=== PATIENT | male | born 1960 | race Caucasian/White ===

== ENCOUNTER → 2018-01-15 09:35 | Outpatient (CLI) | payer OTHER, SELFPAY ==
[2018-01-15 11:26] VITALS: BP 153/82; PULSE 80; RESP 18; TEMP 36.1; O2SAT 96; BMI 40.4
--- NOTE | 2018-01-15 11:35 | SDCEKG_ITS ---
Test Reason : Blood Pressure : / mmHG Vent. Rate : 076 BPM Atrial Rate : 076 BPM P-R Int : 118 ms QRS Dur : 080 ms QT Int : 372 ms P-R-T Axes : 055 003 054 degrees QTc Int : 418 ms Normal sinus rhythm with sinus arrhythmia Normal ECG Confirmed by KYRA GUERRA, CASEY ([id number]), technical editor CASA CENTENO ([id number]) on 01/17/2018 1:51:58 PM Referred By: Casimiro Cueva Confirmed By:CASEY RAE MD
[2018-01-15 12:05] LABS: Absolute Lymphocyte Count 1.85 X10^3/ul (0.83-4.51); Basophil# 0.04 X10^3/uL; Basophil% 0.5 % (0-1); Eosinophil# 0.08 X10^3/uL; Eosinophils% 1.1 % (0-5); Hematocrit 44.3 % (40-54); Hemoglobin 15.3 g/dl (13.0-16.5); Lymphocyte # 1.85 X10^3/ul (4.0); Lymphocyte % 24.9 % (19-41); Mean Corp Hgb Conc 34.5 g/gl (32-36); Mean Corpuscular Hgb 27.6 pg (27.0-32.0); Mean Platelet Vol. 9.6 fl (6.2-12.0); Monocyte# 0.48 X10^3/uL; Monocyte% 6.5 % (0-10); Neutrophil # 4.97 X10^3/uL (2.7-7.7); Neutrophil % 66.7 % (47-70); Platelet Count 194 K/mm3 (150-450); RBC Distribution Width CV 13.5 % (11.6-14.6); RBC Distribution Width SD 38.8 fl (35.1-43.9); Red Blood Count 5.54 M/mm3 (4.6-6.2); White Blood Count 7.4 K/mm3 (4.4-11.0)
[2018-01-15 12:06] LABS: POSITIVE COUNT NO; POSITIVE DIFFERENTIAL NO; POSITIVE MORPHOLOGY NO
[2018-01-15 12:26] LABS: Hemoglobin A1c 8.1 % (4.2-6.3)
[2018-01-15 12:47] LABS: Anion Gap 6 (5-15); BUN 19 mg/dL (7-18); BUN/Creat Ratio 19.4 RATIO (10-20); Calcium,Total 8.8 mg/dL (8.5-10.1); Chloride 103 mmol/L (98-107); Creatinine, Serum 0.98 mg/dL (0.70-1.30); EST Glomerular Filtration Rate 84 mL/min (>60); Est Glom Filt Rate - Afr Amer 101 mL/min (>60); Estimated Creatinine Clearance 74.14 ml/min; Glucose 152 mg/dL (74-106); Potassium 4.2 mmol/L (3.5-5.1); Sodium Level 137 mmol/L (136-145)
--- NOTE | 2018-01-18 13:28 | PCM.HP.BLA ---
History and Physical DATE OF SERVICE: 01/31/2018 SCHEDULED PROCEDURE: Right knee debridement scar tissue vs revision femoral component vs revision right total knee HISTORY OF PRESENT ILLNESS: This is a 57-year-old male who has had a lengthy medical treatment with regards to his right knee. Patient initially injured his right knee at work approximately 15 years ago. Patient initially underwent a right knee arthroscopy in 2003 followed by a second knee arthroscopy in 2007. Patient underwent a right total knee replacement September 21, [address] Dwayne Partida. Thereafter patient had and it irrigation and debridement and polyethylene exchange on October 16, 2016 followed by a repeat irrigation and debridement with polyethylene exchange on October 18, 2016. Patient then went manipulation under anesthesia of the right knee on December 20, 2016. Since then patient has been through formal physical therapy and has tried oral medications with no significant relief in symptoms. He is having aching and stabbing type pains. He has pain going up and down stairs, walking any amount of distance, and working. Patient is losing range of motion in the right knee and pain is increasing. He has difficult time with activities of daily living including getting dressed and shopping. He has tripped and stumbled secondary to his right knee pain. He has tried conservative measures consisting of rest heat with minimal relief. He has tried ice and elevation with no relief in symptoms. Patient has been through formal physical therapy and home exercises and continues to lose range of motion in the knee. He has been on oral medications consisting of tramadol with no relief in symptoms. Patient has been through extensive surgery on the right knee listed above. After failing conservative measures and discussing all treatment options with Dr. Cueva, the patient would like to proceed with a right knee debridement of scar tissue versus revision femoral component versus revision right total knee. Patient has medical history pertinent for diabetes as well as previous heart stent placement in 2013. He is followed by strategic marketing specialist. Patient has obtained surgical clearance from his primary care physician Dr. Barrios. We are obtaining surgical clearance from patient's strategic marketing specialist. Patient currently denies any change in medical history or any recent chest pain, shortness of breath, fevers chills, or recent infections. REVIEW OF SYSTEMS: ROS: Const: Reports weight change, but denies anorexia, anxiety, change in appetite and fever,hard of hearing, and vision problems. CV: Denies chest pain, heart murmur, irregular heartbeat and peripheral vascular disease. Resp: Denies asthma, cough, pneumonia, sleep apnea, SOB, tuberculosis and wheezing. GI: Denies constipation, diarrhea, heartburn, nausea, bloody stools and vomiting, and difficulity swallowing. : Genital:. (F Genital Sx) Urinary: denies incontinence. Musculo: Reports leg swelling, limp, trouble walking and weakness of the legs, but denies ambulatory dysfunction and weakness and limp. Skin: Reports tattoo, but denies Raynaud's and history of shingles. Neuro: Denies ambulatory dysfunction, dizziness, numbness/tingling and tremor. Psych: Denies anxiety, depression, insomnia, mental illness and stress. Brennan/Lymph: Reports past transfusion, but denies anemia and bleeding/bruising tendency. Reviewed and updated. PAST MEDICAL HISTORY: Advance Care Plan: Other Directive, POA Effective Date: 08/14/2017 Other Directive, LIVING WILL Effective Date: 08/14/2017 PMH: Medical Problems: Arthritis, Diabetes Accidents: Fracture - RT FINGERS,WRIST Surgical Hx: Arthroscopy - (2003) [place] [facility] [place] [facility] Gallbladder - 2005 [facility] Arthroscopy - (2001) RT ELBOW RT Foot Surgery - (2004) Arthroscopy - (12/28/2007) RT KNEE DR PARTIDA [facility] Stent Placed - (10/03/2014) [facility] RT Cataract Removed Knee Replacement RT - (09/21/2016) [email or web address] I&D - (10/18/2016) [email or web address] Knee Brice - (12/20/2016) [email or web address] Cataract Removed Anesthesia Complications: None Assistive Devices: Glasses - READING, Dentures Reviewed and updated. 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 Personal Habits: Smoking: Patient is a former smoker.Cigarette Use: Former - 2PK/DAY- 25YRS.Alcohol: Occasionally.Drug Use: Former Illegal Drug User - MARIJUANA .Enjoy Exercising: Daily. Reviewed and updated. VITALS: Ht: 66.5 Wt: 249lb Wt k.[id number] BMI: 39.6 BP: 168/84 Pulse: 76 Resp: 16 T: 97.3 T: 36.3C ALLERGIES: No Known Drug Allergy MEDICATIONS: Tramadol HCL 50 mg 1-2 by mouth every 6 hours as needed pain, Aspirin 81 mg 1 tab PO daily, Valsartan 80 mg 1 tab PO daily, Escitalopram Oxalate 10 mg 1 by mouth every day, Multi Vitamin Daily 1 tab PO daily, Novolog Flexpen 100 Unit/ML sliding scale, Omeprazole 20 mg 1 by mouth every day, Tresiba Flextouch 200 Unit/ML 40 units sq bid PRE-OP EXAM: General appearance:NORMAL Other: Eyes: Conjunctivae and lids: NORMAL Pupils: ERR Ears, Nose, Mouth, and Throat: NORMAL Other: Inspection of lips, teeth and gums: NORMAL Other: Neck: Examination of neck: no masses noted. Respiratory: Assessment of respiratory effort: NORMAL Other: Ausculation of lungs: clear to ausculation no wheeses, ronchi or rales. Cardiovascular: Ausculation of heart: regular rate and rhythem, no mummurs, gallops or rubs. Exam of carotid arteries: NORMAL Other: Gastrointestinal: Exam of abdomen: soft, nontender, nondistended bowel sounds present. Lymphatic: Palpation of nodes in neck: NORMAL Other: Palpation of nodes in Axillae: NORMAL Other: Neurological: see below Psychiatric: Orientation to time, place and person: NORMAL Other: Mood and affect: NORMAL Other: PHYSICAL EXAMINATION: Patient walks with an antalgic gait. Previous incision on the right knee is well-healed without any evidence of any erythema or signs of infection. Range of motion of the right knee: Patient lacks 10? of full extension to 80? of flexion. Patient has effusion to the right knee. Sensations intact light touch. IMAGING STUDIES: 1. X-rays of the right knee were obtained on December 14, 2017 of the right knee which shows a stable right total knee arthroplasty with no evidence of any loosening or lucencies. IMPRESSION: 1. Painful right total knee arthroplasty 2. Type 2 diabetes mellitus 3. History with heart stents 2013 4. Hypertension 5. Hiatal hernia PLAN: Dr. Cueva did discuss and review with the patient all treatment options including surgical versus nonsurgical. Patient wishes to proceed with above-stated procedure. Potential risks, benefits, and complications of this procedure were discussed in detail including but not limited to , infection, nerve and blood vessel damage, persistent pain, numbness, tingling, paresthesias, blood clot, pulmonary embolism, and requirement for further surgery. The patient expressed full understanding has no further questions for the doctor. Patient does agree to proceed with the above-stated procedure and has signed the surgery consent form. ___ I have re-examined the patient. There are no clinical changes since date of exam. ___ See progress notes for changes. ___ Dictated on admission Date: Time: Signature:
--- NOTE | 2018-01-18 13:40 | HP.PCM_ITS ---
History and Physical DATE OF SERVICE: 01/31/2018 SCHEDULED PROCEDURE: Right knee debridement scar tissue vs revision femoral component vs revision right total knee HISTORY OF PRESENT ILLNESS: This is a 57-year-old male who has had a lengthy medical treatment with regards to his right knee. Patient initially injured his right knee at work approximately 15 years ago. Patient initially underwent a right knee arthroscopy in 2003 followed by a second knee arthroscopy in 2007. Patient underwent a right total knee replacement September 21, [address] Dwayne Partida. Thereafter patient had and it irrigation and debridement and polyethylene exchange on October 16, 2016 followed by a repeat irrigation and debridement with polyethylene exchange on October 18, 2016. Patient then went manipulation under anesthesia of the right knee on December 20, 2016. Since then patient has been through formal physical therapy and has tried oral medications with no significant relief in symptoms. He is having aching and stabbing type pains. He has pain going up and down stairs, walking any amount of distance, and working. Patient is losing range of motion in the right knee and pain is increasing. He has difficult time with activities of daily living including getting dressed and shopping. He has tripped and stumbled secondary to his right knee pain. He has tried conservative measures consisting of rest heat with minimal relief. He has tried ice and elevation with no relief in symptoms. Patient has been through formal physical therapy and home exercises and continues to lose range of motion in the knee. He has been on oral medications consisting of tramadol with no relief in symptoms. Patient has been through extensive surgery on the right knee listed above. After failing conservative measures and discussing all treatment options with Dr. Cueva, the patient would like to proceed with a right knee debridement of scar tissue versus revision femoral component versus revision right total knee. Patient has medical history pertinent for diabetes as well as previous heart stent placement in 2013. He is followed by medical supervisor. Patient has obtained surgical clearance from his primary care physician Dr. Barrios. We are obtaining surgical clearance from patient's medical supervisor. Patient currently denies any change in medical history or any recent chest pain, shortness of breath, fevers chills, or recent infections. REVIEW OF SYSTEMS: ROS: Const: Reports weight change, but denies anorexia, anxiety, change in appetite and fever,hard of hearing, and vision problems. CV: Denies chest pain, heart murmur, irregular heartbeat and peripheral vascular disease. Resp: Denies asthma, cough, pneumonia, sleep apnea, SOB, tuberculosis and wheezing. GI: Denies constipation, diarrhea, heartburn, nausea, bloody stools and vomiting , and difficulity swallowing. : Genital:. (F Genital Sx) Urinary: denies incontinence. Musculo: Reports leg swelling, limp, trouble walking and weakness of the legs, but denies ambulatory dysfunction and weakness and limp. Skin: Reports tattoo, but denies Raynaud's and history of shingles. Neuro: Denies ambulatory dysfunction, dizziness, numbness/tingling and tremor. Psych: Denies anxiety, depression, insomnia, mental illness and stress. Brennan/Lymph: Reports past transfusion, but denies anemia and bleeding/bruising tendency. Reviewed and updated. PAST MEDICAL HISTORY: Advance Care Plan: Other Directive, POA Effective Date: 08/14/2017 Other Directive, LIVING WILL Effective Date: 08/14/2017 PMH: Medical Problems: Arthritis, Diabetes Accidents: Fracture - RT FINGERS,WRIST Surgical Hx: Arthroscopy - (2003) RT [place] [facility] [place] - 2007 [facility] Gallbladder - 2005 [facility] Arthroscopy - (2001) RT ELBOW RT Foot Surgery - (2004) Arthroscopy - (12/28/2007) RT KNEE DR PARTIDA [facility] Stent Placed - (10/03/2014) [facility] RT Cataract Removed Knee Replacement RT - (09/21/2016) [email or web address] I&D - (10/18/2016) [email or web address] Knee Brice - (12/20/2016) [email or web address] LT Cataract Removed Anesthesia Complications: None Assistive Devices: Glasses - READING, Dentures Reviewed and updated. 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 Personal Habits: Smoking: Patient is a former smoker.Cigarette Use: Former - 2PK/DAY- 25YRS.Alcohol: Occasionally.Drug Use: Former Illegal Drug User - MARIJUANA .Enjoy Exercising: Daily. Reviewed and updated. VITALS: Ht: 66.5 Wt: 249lb Wt k.946 BMI: 39.6 BP: 168/84 Pulse: 76 Resp: 16 T: 97.3 T: 36.3C ALLERGIES: No Known Drug Allergy MEDICATIONS: Tramadol HCL 50 mg 1-2 by mouth every 6 hours as needed pain, Aspirin 81 mg 1 tab PO daily, Valsartan 80 mg 1 tab PO daily, Escitalopram Oxalate 10 mg 1 by mouth every day, Multi Vitamin Daily 1 tab PO daily, Novolog Flexpen 100 Unit/ ML sliding scale, Omeprazole 20 mg 1 by mouth every day, Tresiba Flextouch 200 Unit/ML 40 units sq bid PRE-OP EXAM: General appearance:NORMAL Other: Eyes: Conjunctivae and lids: NORMAL Pupils: ERR Ears, Nose, Mouth, and Throat: NORMAL Other: Inspection of lips, teeth and gums: NORMAL Other: Neck: Examination of neck: no masses noted. Respiratory: Assessment of respiratory effort: NORMAL Other: Ausculation of lungs: clear to ausculation no wheeses, ronchi or rales. Cardiovascular: Ausculation of heart: regular rate and rhythem, no mummurs, gallops or rubs. Exam of carotid arteries: NORMAL Other: Gastrointestinal: Exam of abdomen: soft, nontender, nondistended bowel sounds present. Lymphatic: Palpation of nodes in neck: NORMAL Other: Palpation of nodes in Axillae: NORMAL Other: Neurological: see below Psychiatric: Orientation to time, place and person: NORMAL Other: Mood and affect: NORMAL Other: PHYSICAL EXAMINATION: Patient walks with an antalgic gait. Previous incision on the right knee is well-healed without any evidence of any erythema or signs of infection. Range of motion of the right knee: Patient lacks 10? of full extension to 80? of flexion. Patient has effusion to the right knee. Sensations intact light touch. IMAGING STUDIES: 1. X-rays of the right knee were obtained on December 14, 2017 of the right knee which shows a stable right total knee arthroplasty with no evidence of any loosening or lucencies. IMPRESSION: 1. Painful right total knee arthroplasty 2. Type 2 diabetes mellitus 3. History with heart stents 2013 4. Hypertension 5. Hiatal hernia PLAN: Dr. Cueva did discuss and review with the patient all treatment options including surgical versus nonsurgical. Patient wishes to proceed with above- stated procedure. Potential risks, benefits, and complications of this procedure were discussed in detail including but not limited to , infection , nerve and blood vessel damage, persistent pain, numbness, tingling, paresthesias, blood clot, pulmonary embolism, and requirement for further surgery. The patient expressed full understanding has no further questions for the doctor. Patient does agree to proceed with the above-stated procedure and has signed the surgery consent form. ___ I have re-examined the patient. There are no clinical changes since date of exam. ___ See progress notes for changes. ___ Dictated on admission Date: Time: Signature:
== END ==
PROVIDERS: Family Provider Preventive Medicine Occupational Medicine; PCP Preventive Medicine Occupational Medicine; Visit Provider Specialist
DX: Z01.818 Encounter for other preprocedural examination (principal)
CPT/HCPCS: 80048; 83036; 85025; 87081

== ENCOUNTER 2018-03-21 14:21 | Inpatient (IN) | payer OTHER, SELFPAY ==
[2018-03-05 15:02] VITALS: BP 185/87; PULSE 71; RESP 16; TEMP 36.9; O2SAT 98; BMI 40.5
[2018-03-05 16:40] LABS: Absolute Lymphocyte Count 1.83 X10^3/ul (0.83-4.51); Absolute Neutrophil Count 5.8 X10^3/uL (2.0-7.7); Basophil# 0.01 X10^3/uL; Basophil% 0.1 % (0-1); Eosinophil# 0.05 X10^3/uL; Eosinophils% 0.6 % (0-5); Hematocrit 44.1 % (40-54); Hemoglobin 14.6 g/dl (13.0-16.5); Lymphocyte # 1.83 X10^3/ul (4.0); Lymphocyte % 22.3 % (19-41); Mean Corp Hgb Conc 33.1 g/gl (32-36); Mean Corpuscular Hgb 27.3 pg (27.0-32.0); Mean Corpuscular Volume 82.4 fL (80-94); Mean Platelet Vol. 9.9 fl (6.2-12.0); Monocyte# 0.49 X10^3/uL; Neutrophil # 5.81 X10^3/uL (2.7-7.7); Neutrophil % 70.9 % (47-70); Platelet Count 212 K/mm3 (150-450); RBC Distribution Width CV 13.6 % (11.6-14.6); Red Blood Count 5.35 M/mm3 (4.6-6.2); White Blood Count 8.2 K/mm3 (4.4-11.0)
[2018-03-05 16:42] LABS: Hemoglobin A1c 7.4 % (4.2-6.3)
[2018-03-05 16:58] LABS: POSITIVE COUNT NO; POSITIVE DIFFERENTIAL NO; POSITIVE MORPHOLOGY NO
[2018-03-05 17:19] LABS: Anion Gap 8 (5-15); BUN 27 mg/dL (7-18); BUN/Creat Ratio 20.1 RATIO (10-20); Chloride 104 mmol/L (98-107); Creatinine, Serum 1.34 mg/dL (0.70-1.30); EST Glomerular Filtration Rate 58 mL/min (>60); Est Glom Filt Rate - Afr Amer 70 mL/min (>60); Estimated Creatinine Clearance 54.22 ml/min; Glucose 179 mg/dL (74-106); Potassium 4.7 mmol/L (3.5-5.1); Sodium Level 140 mmol/L (136-145)
--- NOTE | 2018-03-08 12:25 | HP.PCM_ITS ---
History and Physical DATE OF SURGERY: 03/21/2018 SCHEDULED PROCEDURE: Right knee debridement scar tissue vs revision femoral component vs revision right total knee HISTORY OF PRESENT ILLNESS: This is a 57-year-old male who has had a lengthy medical treatment with regards to his right knee. Patient initially had his surgery set for January 31, 2018 but this was cancelled secondary to elevated A1c. Patient followed up with his PCP and medications were adjusted. Patient current A1c is now 7.4, which was down from 8.1. Patient initially injured his right knee at work approximately 15 years ago. Patient initially underwent a right knee arthroscopy in 2003 followed by a second knee arthroscopy in 2007. Patient underwent a right total knee replacement September 21, [address] Dwayne Partida. Thereafter patient had and it irrigation and debridement and polyethylene exchange on October 16, 2016 followed by a repeat irrigation and debridement with polyethylene exchange on October 18, 2016. Patient then went manipulation under anesthesia of the right knee on December 20, 2016. Since then patient has been through formal physical therapy and has tried oral medications with no significant relief in symptoms. He is having aching and stabbing type pains. He has pain going up and down stairs, walking any amount of distance, and working. Patient is losing range of motion in the right knee and pain is increasing. He has difficult time with activities of daily living including getting dressed and shopping. He has tripped and stumbled secondary to his right knee pain. He has tried conservative measures consisting of rest heat with minimal relief. He has tried ice and elevation with no relief in symptoms. Patient has been through formal physical therapy and home exercises and continues to lose range of motion in the knee. He has been on oral medications consisting of tramadol with no relief in symptoms. Patient has been through extensive surgery on the right knee listed above. After failing conservative measures and discussing all treatment options with Dr. Cueva, the patient would like to proceed with a right knee debridement of scar tissue versus revision femoral component versus revision right total knee. Patient has medical history pertinent for diabetes as well as previous heart stent placement in 2013. He is followed by bell staff. Patient has obtained surgical clearance from his primary care physician Dr. Barrios. We are obtaining surgical clearance from patient's bell staff. Patient currently denies any change in medical history or any recent chest pain, shortness of breath, fevers chills, or recent infections. REVIEW OF SYSTEMS: ROS: Const: Reports weight change, but denies anorexia, anxiety, change in appetite and fever,hard of hearing, and vision problems. CV: Denies chest pain, heart murmur, irregular heartbeat and peripheral vascular disease. Resp: Denies asthma, cough, pneumonia, sleep apnea, SOB, tuberculosis and wheezing. GI: Denies constipation, diarrhea, heartburn, nausea, bloody stools and vomiting , and difficulity swallowing. : Genital:. (F Genital Sx) Urinary: denies incontinence. Musculo: Reports leg swelling, limp, trouble walking and weakness of the legs, but denies ambulatory dysfunction and weakness and limp. Skin: Reports tattoo, but denies Raynaud's and history of shingles. Neuro: Denies ambulatory dysfunction, dizziness, numbness/tingling and tremor. Psych: Denies anxiety, depression, insomnia, mental illness and stress. Brennan/Lymph: Reports past transfusion, but denies anemia and bleeding/bruising tendency. Reviewed, no changes. PAST MEDICAL HISTORY: Advance Care Plan: Other Directive, POA Effective Date: 08/14/2017 Other Directive, LIVING WILL Effective Date: 08/14/2017 PMH: Medical Problems: Arthritis, Diabetes Accidents: Fracture - RT FINGERS,WRIST Surgical Hx: Arthroscopy - (2003) RT KNEE [facility] Hernia Repair - 2007 [facility] Gallbladder - 2005 [facility] Arthroscopy - (2001) RT ELBOW RT Foot Surgery - (2004) Arthroscopy - (12/28/2007) RT KNEE DR PARTIDA [facility] Stent Placed - (10/03/2014) [facility] RT Cataract Removed Knee Replacement RT - (09/21/2016) [email or web address] I&D - (10/18/2016) [email or web address] RT Knee Brice - (12/20/2016) [email or web address] LT Cataract Removed Anesthesia Complications: None Assistive Devices: Glasses - READING, Dentures Reviewed, no changes. 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 Personal Habits: Smoking: Patient is a former smoker.Cigarette Use: Former - 2PK/DAY- 25YRS.Alcohol: Occasionally.Drug Use: Former Illegal Drug User - MARIJUANA .Enjoy Exercising: Daily. Reviewed, no changes. VITALS: Ht: 66.5 Wt: 249lb Wt k.946 BMI: 39.6 BP: 130/70 Pulse: 82 Resp: 16 T: 98.1 T: 36.7C ALLERGIES: No Known Drug Allergy MEDICATIONS: Tramadol HCL 50 mg 1-2 by mouth every 6 hours as needed pain, Aspirin 81 mg 1 tab PO daily, Valsartan 80 mg 1 tab PO daily, Escitalopram Oxalate 10 mg 1 by mouth every day, Multi Vitamin Daily 1 tab PO daily, Novolog Flexpen 100 Unit/ ML 30 units bid, Omeprazole 20 mg 1 by mouth every day, Tresiba Flextouch 200 Unit/ML 50 units sq bid, Pravastatin Sodium 40 mg PRE-OP EXAM: General appearance:NORMAL Other: Eyes: Conjunctivae and lids: NORMAL Pupils: ERR Ears, Nose, Mouth, and Throat: NORMAL Other: Inspection of lips, teeth and gums: NORMAL Other: Neck: Examination of neck: no masses noted. Respiratory: Assessment of respiratory effort: NORMAL Other: Auscultation of lungs: clear to auscultation no wheezes, rhonchi or rales. Cardiovascular: Auscultation of heart: regular rate and rhythm, no murmurs, gallops or rubs. Exam of carotid arteries: NORMAL Other: Gastrointestinal: Exam of abdomen: soft, nontender, nondistended bowel sounds present. PHYSICAL EXAMINATION: Patient walks with an antalgic gait. Previous incision on the right knee is well-healed without any evidence of any erythema or signs of infection. Range of motion of the right knee: patient lacks 10 of full extension to 80 of flexion. Patient has effusion to the right knee. Sensation intact light touch. IMAGING STUDIES: 1. X-rays of the right knee were obtained on December 14, 2017 of the right knee which shows a stable right total knee arthroplasty with no evidence of any loosening or lucencies. IMPRESSION: 1. Painful right total knee arthroplasty 2. Type 2 diabetes mellitus 3. History with heart stents 2013 4. Hypertension 5. Hiatal hernia PLAN: Dr. Cueva did discuss and review with the patient all treatment options including surgical versus nonsurgical. Patient wishes to proceed with above- stated procedure. Potential risks, benefits, and complications of this procedure were discussed in detail including but not limited to , infection , nerve and blood vessel damage, persistent pain, numbness, tingling, paresthesias, blood clot, pulmonary embolism, and requirement for further surgery. The patient expressed full understanding has no further questions for the doctor. Patient does agree to proceed with the above-stated procedure and has signed the surgery consent form. ___ I have re-examined the patient. There are no clinical changes since date of exam. ___ See progress notes for changes. ___ Dictated on admission Date: Time: Signature:
--- NOTE | 2018-03-19 15:40 | CASEMGMT ---
ADRIANA HARDIN called and attempted to speak with patient regarding discharge needs after upcoming surgery. No answer and voice message left with return contact information. Per the PAT assessment patient wishes to return home with family. ADRIANA HARDIN will follow up with patient after surgery and will assist with discharge needs.
[2018-03-21] VITALS (18 sets, daily range): BP systolic 117–176; BP diastolic 56–131; PULSE 61–79; RESP 15–18; TEMP 36.1–36.8; O2SAT 95–100; BMI 40.5
[2018-03-21] MEDS: oxyCODONE HCl Cr 10 MG Tablet PO (09:48)
[2018-03-21] MEDS: Celecoxib 200 MG Capsule 400 MG PO (09:48)
[2018-03-21] MEDS: Acetaminophen 500 MG Tablet 1000 MG PO ×2 (09:49→22:30)
[2018-03-21] MEDS: Lactated Ringers 1,000 ML 999 ML IV (10:07)
[2018-03-21 10:20] LABS: Bedside Glucose 184 mg/dL (70-110)
[2018-03-21] MEDS: Cefazolin 2 GM in 0.9% Normal Saline 100 ML IV (11:06)
--- NOTE | 2018-03-21 15:11 | RAD_ITS ---
STUDY: X-RAY - RIGHT KNEE REASON FOR EXAM: Male, 57 years old. Postop knee replacement TECHNIQUE: 2 view(s) of the knee. COMPARISON: 10/15/2016 Findings: There is a recent total knee arthroplasty. The femoral and tibial components appear in satisfactory position. There has been patellar resurfacing. The visualized femoral, tibial, and fibular shafts are unremarkable. RAD/Knee 1 or 2 Views IMPRESSION: Satisfactory appearance of a revision total knee arthroplasty. Electronically Signed: Adrian Cochran MD at 15:50 EDT , Service support ,
[2018-03-21] MEDS: Scopolamine 1mg/72hr Patch 1 PATCH TD (15:48)
--- NOTE | 2018-03-21 16:01 | OP.PCM_ITS ---
Report of Operation Date of Procedure: 03/21/18 Pre-Operative Diagnosis: Painful total knee, arthrofibrosis right Post-Operative Diagnosis: Full right total knee, arthrofibrosis and implant loosening Surgery/Procedure Performed:: Revision right total knee arthroscopy all 3 components Description of Surgical Findings:: Stable knee with good patella tracking brazing machine setter: Kang Frank Type of Anesthesia:: Spinal Anesthesiologist: Daniel Murillo Special Medications: 2 g Ancef, 1 g TXA at incision, 1 g TXA closure, 10 mg Decadron, joint cocktail (5 mg Duramorph, 30 mL of 0.5% Ropivicaine, 1000 units of epinephrine, 30 mg of Toradol), 2 g vancomycin in the wound at completion of case Specimen's removed: 5 separate specimens were sent to microbiology Estimated Blood Loss (mL): 75 Fluids Replaced: 1600 ml crystalloid Description of Procedure: Implants used: 1. Rafaela size 5 TS femoral implant with 12 x 50 mm stem 2. Rafaela size 5 TS universal tibial baseplate with 12 x 50 mm stem 3. Holland X3 polyethylene 13 mm in thickness TS 4. Rafaela a 32mm X3 patella Brief history operative indications: 57-year-old male with history of right total knee replacement in 2016 with subsequent polymicrobial infection. Patient had 2 irrigations and debridements. Further workup and cultures have since been negative. However patient continues to have pain arthrofibrosis. Patient wished to proceed with revision total knee replacement possible scar excision versus total revision depending on intraoperative motion obtained. X-rays do show some suspected radiographic lucencies. After discussion of risks and benefits including but onto blood loss, DVTs, PEs, neurovascular damage, recurrent infection, continued infection, general risk of anesthesia including loss of life patient demonstrated understanding and was able to sign informed consent. Procedure: On the date of procedure patient's right lower extremity was marked in the preoperative area. The patient was then taken back to the operating room where the patient was placed on the table in the supine position. All bony prominences were identified a well-padded. Anesthesia assumed control of the C- spine and airway and remained controlled throughout the remainder of the procedure. A tourniquet was placed on the right upper thigh and the leg was prepped in a sterile fashion. The surgeon then scrubbed at this time .Upon reentering the room right lower extremity was draped in a standard orthopedic fashion. A timeout was then called and everyone agreed upon the side, the site, the procedure to be performed, patient's identity and antibiotics given. An Esmarch bandage was used to exsanguinate the extremity and the tourniquet was placed up to 250 mmHg with the knee in flexion. A midline skin incision was made and sharp dissection was taken down through skin we then adequately developed medial and lateral flaps until we were able to identify the extensor mechanism. Once the extensor mechanism was identified based on patient's limited motion we did a standard medial parapatellar arthrotomy with a proximal quadriceps snip at 45?. Once this was done a complete synovectomy was performed of the knee starting in the medial gutter than going to the lateral gutter then to the suprapatellar pouch and infrapatellar region. From this area 3 separate cultures were taken. An additional 2 cultures were taken from the femoral tibial membranes as the surgery proceeded. Quadriceps plasty was performed in order to help with range of motion. We still were not able to obtain adequate range of motion with scar debridement and quadricepsplasty. At this time we elected to proceed with total knee revision. The tibial components were sequentially removed using saw an osteotome to break up the bone cement interface. These removed without bone loss. During removing these implants it was noted that there were certain areas were loosening was definitely noted. Once the implants were removed cleanup cuts were made on the proximal tibia using intramedullary guide and all cement debris was removed. Proximal tibia was then prepared for a size 5 tibial insert and the tibial trial was placed. Next we directed our attention to the distal femur where the canal was reamed and a distal femoral cleanup cut was made. Size 5 implant was chosen as patient previously had a size 6 and was significantly stiff. 4-in-1 cutting block was pinned into the appropriate rotation and anterior cuts anterior chamfer cuts posterior cuts and posterior chamfer cuts were made. Box cut was then made and trial implants were placed. Knee could be well-balanced at this time except for not quite in full extension. Femoral component was removed and a further cleanup cut was made giving us 2 more millimeters trial components were then placed again in full extension could be obtained. At this time our attention was turned towards the patella. Based on the patient 's history of infection we elected to remove the well fixed patella and recut the patella implant. Once the patella implant was removed with a saw bur was used to remove the pegs. Patella was then prepped for asymmetric 32 mm patella component. Once this was done patella then tracked well. Trial components were removed wound was copiously irrigated out with 6 L of normal saline. Cement was mixed and final components were opened. Once final components were assembled and cement was ready tibia was cemented into place, femur was cemented into place trial polyethylene was placed and he was placed in extension. Patella was then cemented into place. Once the cement had appropriately cured tourniquet was let down and hemostasis was obtained. All excess cement was removed in the process. Once the cement had cured the tracking, alignment and balance were verified and a size 13mm TS polyethylene component was placed. Once the final components were placed the wound was copiously irrigated with normal saline solution and the remainder of the periarticular injection was given. 2 g of vancomycin powder were placed inside the joint and the quadriceps snip was repaired using #5 FiberWire proximally. The wound was closed in a layer moss fashion using #1 vicryl interrupted sutures for the manger of the arthrotomy, 2-0 interrupted Vicryl for the subcuticular layer and romaine for final skin closure. A sterile compressive dressing was then placed. The patient was then awakened from anesthesia, transferred to the [facility] and transferred to the PACU for recovery. Post op plan DVT ppx: ASA 325mg BID, thigh high compression stockings Follow up: in office in 2 weeks for wound check PT: to start POD #0 at hospital, outpatient PT should be arranged. Patient will be on cycling as we follow cultures. We will also place him on montelukast for 3 months to prevent arthrofibrosis. My physician endodontic assistant was a vital part of this case. He was important in appropriate retraction during the case, and protection of soft tissues during bony cuts. His intimate knowledge of the case and my steps aided in safe and expedient completion of the procedure as well as appropriate position of the leg during the case. He was also vital in assisting with closure under my direct supervision. Grafts/Implants Used: Holland triathlon total stabilized knee system - Complications None - Admit VTE Documentation VTE Present on Admission: No VTE Mechan Device Prophylaxis: SCD's, Thigh High JYOTI Hose VTE Pharm Prophylaxis ordered?: Yes
[2018-03-21] MEDS: Lactated Ringers 1,000 ML 125 ML IV ×2 (18:19→23:46)
[2018-03-21] MEDS: Cefazolin 1 GM/50 ML BAG IV (18:32)
[2018-03-21] MEDS: Morphine 4 MG/ML Syringe IV (18:32)
[2018-03-21] MEDS: Montelukast 10 MG Tablet PO (18:33)
[2018-03-21] MEDS: Aspirin 325 MG Tablet PO (18:34)
[2018-03-21 18:46] LABS: Bedside Glucose 60 mg/dL (70-110)
[2018-03-21 18:46] LABS: Bedside Glucose 57 mg/dL (70-110)
[2018-03-21 19:36] LABS: Bedside Glucose 106 mg/dL (70-110)
[2018-03-21 19:36] LABS: Bedside Glucose 55 mg/dL (70-110)
[2018-03-21] MEDS: oxyCODONE 5 MG Tablet PO (20:04)
--- NOTE | 2018-03-21 20:43 | PCM.CONS.GEN ---
Problem List (1) Status post revision of total replacement of right knee Status: Acute (2) GERD (gastroesophageal reflux disease) Status: Chronic (3) Septic arthritis of knee, right Status: Resolved (4) Chronic knee pain Status: Chronic Qualifiers: (5) CAD (coronary artery disease) Status: Chronic Qualifiers: (6) Hyperlipidemia Status: Chronic Qualifiers: (7) DM type 2 (diabetes mellitus, type 2) Status: Chronic Qualifiers: (8) Hypertension Status: Chronic (9) COPD (chronic obstructive pulmonary disease) Status: Chronic (10) Septic arthritis Status: Resolved Qualifiers: Septic arthritis location: knee Septic arthritis organism: due to unspecified organism Laterality: right Qualified Code(s): M00.9 - Pyogenic arthritis, unspecified Reason for Consult Date of Consultation: 03/21/18 Reason for Consultation: Medical management History of Present Illness: The patient is a 57 year old M with history of multiple right knee surgery for complications after he had initial right TKR in August [address] Partida. After that patient had multiple knee irrigation and debridement with polyethylene exchange. This time he was admitted for right knee debridement of scar tissue and then was decided for revision of total knee replacement. He has medical history of diabetes mellitus type 2, coronary artery disease status post stent in 2013. Patient initial surgery appointment was canceled on January 31, 2018 because of high A1c which was 8.1. Patient most recent A1c 7.4 on 03/05/2018. He is on high-dose of NovoLog insulin and Tresiba. His other medical problems include hypertension, dyslipidemia, history of COPD, GERD and depression. He quit smoking, 22 years ago. He started smoking at the age of 14, history of 2 pack per day smoking for 21 years. [] Past Medical History Past Medical History (Chronic Problems): Chronic Problems GERD (gastroesophageal reflux disease) (Chronic) Chronic knee pain (Chronic) CAD (coronary artery disease) (Chronic) Hyperlipidemia (Chronic) DM type 2 (diabetes mellitus, type 2) (Chronic) Hypertension (Chronic) COPD (chronic obstructive pulmonary disease) (Chronic) Allergies No Known Allergies Allergy (Verified 03/05/18 14:55) Home Medications: Ambulatory Orders Medication Instructions Recorded Escitalopram Oxalate [Lexapro] 10 mg PO DAILY 10/15/16 Multivit-Min/FA/Lycopen/Lutein 1 each PO DAILY 10/15/16 [Centrum Silver Tablet] Omeprazole [Prilosec] 20 mg PO DAILY 10/15/16 Valsartan [Diovan] 80 mg PO DAILY 10/15/16 Insulin Aspart [Novolog Flexpen] 30 units SC BID 01/15/18 Insulin Degludec [Tresiba 50 unit SQ BID 01/15/18 Flextouch U-100] traMADol [Ultram (G)] 50 mg PO Q6H PRN PRN 01/15/18 Aspirin [Aspirin, Baby] 81 mg PO DAILY@0800 03/05/18 Atorvastatin Calcium [Lipitor] 40 mg PO QHS 03/05/18 Surgical History: arthroscopy, knee - several times, cataract, cholecystectomy - 2009, herniorrhaphy - Hiatal., total knee arthroplasty - Right., - - right elbow surgery x 2. Psychiatric History: Depression Smoking Status: Former smoker - *Family History Maternal History Items: Cancer - lung, Heart Disease Paternal History Items: COPD, Heart Disease Sibling History Items: Cancer Review of Systems Constitutional: Denies: Chills, Fever, Weight Change HEENT: Denies: Head Aches, Sinus Congestion, Sinus Drainage Cardiovascular: Denies: Chest Pain, Palpitations Respiratory: Denies: Cough, Shortness of breath at rest, Sputum production Gastrointestinal: Denies: Abdominal Pain, Nausea, Vomiting Genitourinary: Denies: Dysuria Musculoskeletal: Reports: Joint Pain, Joint stiffness, Joint swelling, Joint Tenderness Skin: Denies: Rash, Wounds Neurological: Denies: Numbness, Tingling, Focal weakness Psychiatric: Denies: Anxiety, Depression, Homicidal Ideations, Suicidal Ideations Hematologic/ Lymphatic: Denies: Easy Bruising, Easy Bleeding Patient Problems: Active and Suspected Problems Status post revision of total replacement of right knee (Acute) - Physical Exam General: Alert, Oriented x3, Cooperative HEENT: Atraumatic, PERRLA, EOMI, Normocephalic Neck: Supple, No JVD, Negative Carotid Bruits Lungs: Clear to auscultation, Diminished - In bilateral lung predominantly in posterior lower half of lungs Cardiovascular: Regular rate, Regular Rhythm, Normal S1, Normal S2, No murmurs Abdomen: Bowel Sounds Present, Soft, Non Tender, Non-Distended Extremities: Capillary Refill Less than 3 Seconds, Edema Skin: No rashes, No breakdown Musculoskeletal: Arthritic Changes - Right knee under dressing, knee immobilizer and ice-bag Neurological: Cranial nerves II-XII grossly intact Psych/Mental Status: Normal Affect, Appropriate Vital Signs Temp Pulse Resp BP Pulse Ox 98.3 F 73 15 139/64 H 95 03/21/18 19:52 03/21/18 19:52 03/21/18 20:07 03/21/18 19:52 03/21/18 20:07 Oxygen Delivery Method Room Air Weight: 254 lb 13.67 oz Body Mass Index (BMI) 40.5 Finger Stick Blood Glucose 278 Intake and Output for Last 24 Hours 03/19/18 03/20/18 03/21/18 23:59 23:59 23:59 Intake Total 2099 / 2099 Balance 2099 / 2099 POC Glucose 03/21/18 03/21/18 03/21/18 19:32 19:01 18:41 POC Glucose 106 55 L 60 L 03/21/18 03/21/18 18:22 09:32 POC Glucose 57 L 184 H Assessment/Plan Active and Suspected Problems Status post revision of total replacement of right knee (Acute) The patient is a 57 year old M with history of multiple right knee surgery for complications after he had initial right TKR in [place] [address] Partida. After that patient had multiple knee irrigation and debridement with polyethylene exchange. This time he was admitted for right knee debridement of scar tissue and then was decided for revision of total knee replacement. He has medical history of diabetes mellitus type 2, coronary artery disease status post stent in 2013. Patient initial surgery appointment was canceled on January 31, 2018 because of high A1c which was 8.1. Patient most recent A1c 7.4 on 03/05/2018. He is on high-dose of NovoLog insulin and Tresiba. His other medical problems include hypertension, dyslipidemia, history of COPD, GERD and depression. He quit smoking, 22 years ago. He started smoking at the age of 14, history of 2 pack per day smoking for 21 years. [ 1. Diabetes mellitus type 2, on high-dose of NovoLog insulin and insulin Tresiba: Accu-Chek before meals and at bedtime. Last blood sugar is 106 and prior to that 60 and then 84 mg/dL. Hold long-acting insulin for tonight. Resume long-acting from tomorrow; with holding parameters as mentioned in order. 2. Hypertension, dyslipidemia: Home medication reconciliation done. 3. Coronary artery status post stent: Baby is currently on aspirin 325 mg p.o. twice daily for DVT prophylaxis. 4. Complete revision of right TKR with history of multiple recurrent surgeries in the past: PT and OT. Management as per Dr. Cueva. DVT prophylaxis: On aspirin 325 mg p.o. twice daily as recommended by Dr. Cueva. Code Visit Inpatient E&M: 65729 Subs Hosp L3
[2018-03-21] MEDS: Senna/Docusate Sodium 1 Tablet 2 TABLET PO (22:29)
[2018-03-21] MEDS: Atorvastatin Calcium 40 MG Tablet PO (22:30)
[2018-03-21] MEDS: traMADol 50 MG Tablet PO (22:30)
[2018-03-21] MEDS: Ketorolac 15 MG/ML Vial IV (22:30)
[2018-03-21] MEDS: Doxycycline 100 MG CAPSULE PO (22:30)
[2018-03-21] MEDS: 0.9% NaCl Peripheral Flush Adult/Peds IV (22:30)
[2018-03-22] VITALS (7 sets, daily range): BP systolic 106–160; BP diastolic 47–107; PULSE 64–82; RESP 16–18; TEMP 36.7–37.2; O2SAT 94–98
[2018-03-22 00:01] LABS: Bedside Glucose 144 mg/dL (70-110)
[2018-03-22] MEDS: Cefazolin 1 GM/50 ML BAG IV (03:57)
[2018-03-22] MEDS: oxyCODONE 5 MG Tablet PO ×4 (04:03→20:44)
[2018-03-22] MEDS: traMADol 50 MG Tablet PO (06:00)
[2018-03-22] MEDS: Acetaminophen 500 MG Tablet 1000 MG PO ×3 (06:00→20:43)
[2018-03-22 07:01] LABS: Hematocrit 38.9 % (40-54); Hemoglobin 12.7 g/dl (13.0-16.5); Mean Corp Hgb Conc 32.6 g/gl (32-36); Mean Corpuscular Hgb 27.7 pg (27.0-32.0); Mean Corpuscular Volume 84.7 fL (80-94); Mean Platelet Vol. 9.6 fl (6.2-12.0); Platelet Count 154 K/mm3 (150-450); RBC Distribution Width CV 13.7 % (11.6-14.6); RBC Distribution Width SD 42.2 fl (35.1-43.9); Red Blood Count 4.59 M/mm3 (4.6-6.2); White Blood Count 7.3 K/mm3 (4.4-11.0)
[2018-03-22 07:02] LABS: Scan Indicated on CBC? Y/N NO
[2018-03-22 07:22] LABS: Anion Gap 4 (5-15); BUN 34 mg/dL (7-18); BUN/Creat Ratio 17.9 RATIO (10-20); Calcium,Total 8.1 mg/dL (8.5-10.1); Chloride 107 mmol/L (98-107); EST Glomerular Filtration Rate 39 mL/min (>60); Est Glom Filt Rate - Afr Amer 47 mL/min (>60); Estimated Creatinine Clearance 38.24 ml/min; Glucose 130 mg/dL (74-106); Potassium 5.1 mmol/L (3.5-5.1); Sodium Level 142 mmol/L (136-145)
[2018-03-22] MEDS: Senna/Docusate Sodium 1 Tablet 2 TABLET PO ×2 (07:32→20:42)
[2018-03-22] MEDS: Famotidine 20 MG Tablet PO (07:32)
[2018-03-22] MEDS: Aspirin 325 MG Tablet PO ×2 (07:32→16:24)
[2018-03-22] MEDS: Doxycycline 100 MG CAPSULE PO ×2 (07:33→20:42)
[2018-03-22] MEDS: Escitalopram Oxalate 10 MG Tablet PO (07:33)
[2018-03-22] MEDS: Multivitamins,Ther W-Minerals Tablet 1 TABLET PO (07:33)
[2018-03-22] MEDS: Pantoprazole Sodium 20 MG Tablet PO (07:34)
[2018-03-22] MEDS: Glucerna Shake 120 ML LIQUID PO ×3 (07:36→16:26)
[2018-03-22 07:41] LABS: Bedside Glucose 134 mg/dL (70-110)
--- NOTE | 2018-03-22 10:06 | NURSING ---
pt home insulin sent to pharmacy
--- NOTE | 2018-03-22 10:23 | PN_ITS ---
Patient Problems: Active and Suspected Problems Status post revision of total replacement of right knee (Acute) Subjective: Patient with no acute events overnight per self and per nursing report. Patient did have some postoperative oozing from the incision but this has discontinued and there is only dried blood on the dressing. Patient tolerating pain without market issue and ambulating the halls with minimal assist. Discussed with orthopedic surgery and they note given patient remarkable improvement, minimal debility and no usage of IV narcotic therapy secondary to patient assistance plan for discharge to home today. Patient denies fevers, chills, nausea, emesis, abdominal pain, chest pain or dyspnea. Objective: Physical Examination: General: awake, alert, oriented x 3 and cooperative, seated upright in chair, NAD. Skin: normal color, turgor, no icterus, cyanosis except RLE w/ dressing in place on knee, old blood distally on dressing, no active bleeding noted. HEENT: AT/NC, EOMI, PERRLA, MMM. Lungs: CTA bilaterally, moderate effort, mild decrease BL bases, no rales, ronchi or wheezing. Heart: Regular rate and rhythm; no gallop, rub audible. Abdomen: soft, morbidly obese, NTTP, ND, normal BS. Extremities: no cyanosis, clubbing, mild edema ankle RLE, improved, s/p R TKR, dressing in place as noted, see skin. Neurological: patient awake, alert, oriented x 3; cognitive function intact; pupils equally reactive to light and accomodation; cranial nerves II-XII grossly normal, moving all 4 extremities although expected decreased movement RLE s/p R TKR, no focal deficits, strength mildly to moderately globally decreased. Psychiatric: affect appears normal, no acute evidence of depressive or anxiety feelings. Vitals/I&O's: Vital Signs Temp Pulse Resp BP Pulse Ox 98.1 F 69 16 130/59 H 96 03/22/18 07:42 03/22/18 07:42 03/22/18 07:42 03/22/18 07:42 03/22/18 07:42 Oxygen Delivery Method Room Air Weight: 254 lb 13.67 oz Body Mass Index (BMI) 40.5 Finger Stick Blood Glucose 278 Intake and Output for Last 24 Hours 03/20/18 03/21/18 03/22/18 23:59 23:59 23:59 Intake Total 3374 / 3374 761 / 761 Balance 4121 / 3374 761 / 761 Laboratory Results 03/21/18 18:22: POC Glucose 57 L 03/21/18 18:41: POC Glucose 60 L 03/21/18 19:01: POC Glucose 55 L 03/21/18 19:32: POC Glucose 106 03/21/18 22:25: POC Glucose 144 H 03/22/18 06:30: WBC 7.3, RBC 4.59 L, Hgb 12.7 L, Hct 38.9 L, MCV 84.7, MCH 27.7 , MCHC 32.6, RDW 13.7, RDW Differential 42.2, Plt Count 154, MPV 9.6 03/22/18 06:30: Sodium 142, Potassium 5.1, Chloride 107, Carbon Dioxide 31.0, Anion Gap 4 L, BUN 34 H, Creatinine 1.90 H, Estim Creat Clear Calc 38.24, Est GFR (MDRD) Af Amer 47 L, Est GFR (MDRD) Non-Af 39 L, BUN/Creatinine Ratio 17.9, Glucose 130 H, Calcium 8.1 L 03/22/18 07:29: POC Glucose 134 H Current Medications Acetaminophen (Tylenol) 1,000 mg PO Q8 [facility] Last Admin: 03/22/18 06:00 Dose: 1,000 mg [facility]in) [facility] Last Admin: 03/22/18 07:32 Dose: 325 mg Atorvastatin Calcium (Lipitor) 40 mg PO QHS [facility] Last Admin: 03/21/18 22:30 Dose: 40 mg Doxycycline Monohydrate (Doxycycline) 100 mg PO BID [facility] Stop: 03/28/18 22:01 Last Admin: 03/22/18 07:33 Dose: 100 mg Escitalopram Oxalate (Lexapro) 10 mg PO DAILY [facility] Last Admin: 03/22/18 07:33 Dose: 10 mg Famotidine (Pepcid) 20 mg PO DAILY [facility] Last Admin: 03/22/18 07:32 Dose: 20 mg Insulin Aspart (Novolog Flexpen (Bkc)) 0 units SC TIDAC [facility] PRN Reason: Protocol Last Admin: 03/22/18 07:32 Dose: Not Given Insulin Aspart (Novolog Flexpen (Bkc)) 30 units SC 0800,1700 [facility] Last Admin: 03/22/18 07:40 Dose: 30 ml Insulin Detemir (Levemir (Bkc)) 40 units SC BID [facility] Ketorolac Tromethamine (Toradol) 15 mg IV Q6H PRN PRN PRN Reason: MILD-MOD PAIN (1-5/10) Last Admin: 03/21/18 22:30 Dose: 15 mg Montelukast Sodium (Singulair) 10 mg PO DAILY@1700 [facility] Last Admin: 03/21/18 18:33 Dose: 10 mg Morphine Sulfate () 2 - 4 mg IV Q2H PRN PRN PRN Reason: SEVERE PAIN (6-10/10) Morphine Sulfate () 2 - 4 mg IV Q2H PRN PRN PRN Reason: SEVERE PAIN (6-10/10) Last Admin: 03/21/18 18:32 Dose: 4 mg Multivitamins/Minerals (Multivitamin With Minerals) 1 tablet PO DAILY@0800 [facility] Last Admin: 03/22/18 07:33 Dose: 1 tablet Nutritional Formula (Lactose Free) (Glucerna Shake) 120 ml PO TIDCM [facility] Last Admin: 03/22/18 07:36 Dose: 120 ml Ondansetron HCl (Zofran) 4 mg IV Q8H PRN PRN PRN Reason: NAUSEA Oxycodone HCl (Oxyir) 5 - 10 mg PO Q4H PRN PRN PRN Reason: MOD-SEVERE PAIN (4-10/10) Last Admin: 03/22/18 04:03 Dose: 10 mg Pantoprazole Sodium (Protonix) 20 mg PO DAILY [facility] Last Admin: 03/22/18 07:34 Dose: 20 mg Promethazine HCl (Phenergan) 12.5 mg IM Q6H PRN PRN; Protocol PRN Reason: NAUSEA/VOMITING Senna/Docusate Sodium (Senokot-S, Narcisa-Colace) 2 tablet PO BID [facility] Last Admin: 03/22/18 07:32 Dose: 2 tablet Sodium Chloride () 5 - 30 ml IV UD PRN PRN Reason: SALINE FLUSH Last Admin: 03/21/18 22:30 Dose: 10 ml Tramadol HCl (Ultram) 50 mg PO Q6H PRN PRN PRN Reason: PAIN Last Admin: 03/22/18 06:00 Dose: 50 mg Valsartan (Diovan) 80 mg PO DAILY [facility] Last Admin: 03/22/18 07:34 Dose: 80 mg Medical Necessity - Tobacco Use Smoking Status: Former smoker Tobacco Use: Non-smoker Assessment/Plan Active and Suspected Problems Status post revision of total replacement of right knee (Acute) The patient is a 57 y/o M w/ PMHx: Morbid Obesity, Anxiety and Depression, Allergic Rhinitis, HLD, HTN, GERD, Diabetes mellitus type II who presents to the [facility] on 03/21/18 for planned revision R TK arthroscopy secondary to implant loosening and ongoing discomfort. (1) Severe Osteoarthritis, Pain, Debility, s/p Prior R TKR w/ Loosening Implant Components: Failed conservative therapies and treatments with noted loosening prior TKR components, admitted per Dr. Cueva for planned R TKR revision, post- operative pain management, bowel regimen, DVT Prophylaxis, PT/OT/CM per Orthopedic surgery discretion. Given notable improvement, planned discharge to home per discussion with Orthopedic surgery. (2) Diabetes mellitus type II: Hold oral home regimen, continue home insulin regimen, ADA diet, accu checks w/ ISS. (3) Hypertension: Continue home regimen including Diovan, PRN hydralazine. (4) Hyperlipidemia: Continue home statin regimen. (5) Anxiety and depression: Continue home Lexapro regimen. (6) Morbid Obesity: Weight loss and lifestyle changes encouraged. (7) GERD: Maintained on PPI. (8) DVT prophylaxis: SCDs, aspirin 325 mg p.o. twice daily per orthopedic surgery discretion. Code Visit Inpatient E&M: 49352 Subs Hosp L2
--- NOTE | 2018-03-22 10:32 | PN.ORTHO_ITS ---
Patient Problems: Active and Suspected Problems Status post revision of total replacement of right knee (Acute) Subjective: The patient was sitting in bedside chair upon examination. Patient denies any chest pain, shortness of breath, dizziness, lightheadedness, nausea or vomiting , or calf pain. Pain is controlled on medications. No adverse overnight events. Patient is well pleased with outcome of surgery. He states he is able to move his knee further than what he could prior to surgery. He has been up walking and tolerating it very well. Pain is controlled. Patient wishes to go home today. Objective: Vital signs stable and afebrile. Patient is able to plantarflex and dorsiflex actively. Sensation is intact to light touch to saphenous, sural, superficial and deep peroneal, and tibial distribution. Dressing is with minimal discharge to the distal one third only contacting one border. Negative Homans bilaterally, negative signs and symptoms of DVT. - Physical Exam General: Alert, Oriented x3, Cooperative, No apparent distress Vital Signs Temp Pulse Resp BP Pulse Ox 98.1 F 69 16 130/59 H 96 03/22/18 07:42 03/22/18 07:42 03/22/18 07:42 03/22/18 07:42 03/22/18 07:42 Oxygen Delivery Method Room Air Weight: 115.6 kg Body Mass Index (BMI) 40.5 Finger Stick Blood Glucose 278 Intake and Output for Last 24 Hours 03/20/18 03/21/18 03/22/18 23:59 23:59 23:59 Intake Total 3374 / 3374 761 / 761 Balance 3374 / 3374 761 / 761 Laboratory Tests Past 24 Hrs 03/22/18 03/22/18 06:30 06:30 WBC 7.3 RBC 4.59 L Hgb 12.7 L Hct 38.9 L MCV 84.7 MCH 27.7 MCHC 32.6 RDW 13.7 RDW Differential 42.2 Plt Count 154 MPV 9.6 Sodium 142 Potassium 5.1 Chloride 107 Carbon Dioxide 31.0 Anion Gap 4 L BUN 34 H Creatinine 1.90 H Estim Creat Clear Calc 38.24 Est GFR (MDRD) Af Amer 47 L Est GFR (MDRD) Non-Af 39 L BUN/Creatinine Ratio 17.9 Glucose 130 H Calcium 8.1 L POC Glucose 03/22/18 03/21/18 03/21/18 07:29 22:25 19:32 POC Glucose 134 H 144 H 106 03/21/18 03/21/18 03/21/18 19:01 18:41 18:22 POC Glucose 55 L 60 L 57 L Medical Necessity - Tobacco Use Smoking Status: Former smoker Tobacco Use: Non-smoker Assessment/Plan Active and Suspected Problems Status post revision of total replacement of right knee (Acute) 1. S/P revision right total knee arthroplasty all 3 components POD #1 2. Continue Pain Medications: Tylenol and OxyIR 3. DVT Prophylaxis: Aspirin 325 mg twice daily 4. PT/OT: Weightbearing as tolerated 5. H & H: 12.7/38.9, asymptomatic 6. Encouraged Incentive Spirometry 7. Continue postoperative medical management per medicine 8. Continue antibiotics while following cultures: Currently pending. Patient on doxycycline 1 week postoperatively 9. Disposition: Orthopedically stable, plan will be for possible discharge home this afternoon if patient tolerates therapy and pain is controlled. Prescriptions will be E scribed to [facility]. Patient will follow-up per postop instructions
--- NOTE | 2018-03-22 10:37 | CASEMGMT ---
ADRIANA HARDIN Face to Face with patient for initial transition planning/care coordination assessment. ADRIANA HARDIN introduced self and role at [facility]. Patient sitting in chair, alert and oriented. Patient willing to participate in assessment and is able to answer all questions appropriately. Care providers, pharmacy, and demographics verified. Patient states that he lives in a 2 story home with 4 steps to enter home. Patient lives with and grandson. Patient states he has a walker at home. Patient wishes to discharge home and is setup with [facility] for outpatient therapy with providing transportation. Patient states he has no further needs or concerns at this time. CM to follow for discharge planning needs that may arise. Disposition Plan: Patient to discharge home with outpatient therapy, family support, and follow-up plans in place.
--- NOTE | 2018-03-22 10:39 | DCINST_ITS ---
Discharge Diet: No Restrictions, 1800 Calorie Control Diet Discharge Activity: May Not Drive May shower in (days): 1 - Turned dressing away from water Ice area for (Minutes): 20 - every hour while awake. Weight Bearing Status: Weight bearing as tolerated Elevate: Operative Extremity Additional Activity Instructions:: Wear elastic stockings for 2 weeks after your surgery. Call your doctor if your incision/area has: Continuous Slow Oozing, Sudden Increased Bleeding, Increased Pain/ Swelling, Increased Redness, Foul Smelling Discharge Call your doctor if you observe: Fever of 101 or Higher, Coldness, Increased Pain, Numbness or Tingling, Change in Color, Calf discomfort, Uncontrolled pain Remove Dressing in (days):: 4 - Okay to remove on March 26, 2018 Additional Instructions: Follow [facility] postop instructions Do not take baby aspirin 81 mg while taking regular dose 325 mg aspirin Allergies/Adverse Reactions: Allergies No Known Allergies Allergy (Verified 03/05/18 14:55) Medications to take at Discharge Escitalopram Oxalate [Lexapro] 10 mg PO DAILY 10/15/16 Multivit-Min/FA/Lycopen/Lutein [Centrum Silver Tablet] 1 each PO DAILY 10/15/16 Omeprazole [Prilosec] 20 mg PO DAILY 10/15/16 Valsartan [Diovan] 80 mg PO DAILY 10/15/16 Insulin Aspart [Novolog Flexpen] 30 units SC BID 01/15/18 Insulin Degludec [Tresiba Flextouch U-100] 50 unit SQ BID 01/15/18 Atorvastatin Calcium [Lipitor] 40 mg PO QHS 03/05/18 Acetaminophen [Tylenol] 1,000 mg PO Q8 #90 tab 03/22/18 Aspirin 325 mg PO BIDCM #30 tab 03/22/18 Doxycycline 100 mg PO BID #14 cap 03/22/18 Montelukast [Singulair] 10 mg PO DAILY@1700 #42 tab 03/22/18 Oxycodone [Oxyir] 5 - 10 mg PO Q4H PRN PRN 7 Days #84 tablet 03/22/18 Senna/Docusate Sodium [Senokot-S] 2 tab PO BID #20 tab 03/22/18 The following prescriptions were given: Oxycodone [Oxyir] 5 - 10 mg PO Q4H PRN PRN 7 Days #84 tablet PRN Reason: Mod-Severe Pain (4-09/05) Acetaminophen [Tylenol] 1,000 mg PO Q8 #90 tab Montelukast [Singulair] 10 mg PO DAILY@1700 #42 tab Aspirin 325 mg PO BIDCM #30 tab Doxycycline 100 mg PO BID #14 cap Senna/Docusate Sodium [Senokot-S] 2 tab PO BID #20 tab Primary Care Physician: Ben Lipscomb DO [Primary Care Provider] - Please Follow Up With: Physical Therapy When: 03/26/18 @ 9:30 am Please Follow Up With: Kang Frank PA-C When: 04/04/18 @ 9:30 am
[2018-03-22 11:21] LABS: Bedside Glucose 116 mg/dL (70-110)
--- NOTE | 2018-03-22 12:47 | CHAPLAIN ---
Type of Pastoral Visit _x__ Initial Visit ___ Follow-up Visit ___ On-call Visit ___ General Patient Visit ___ Spiritual Assessment ___ Family Conference ___ Bereavement ___ Rapid Response ___ Code Blue ___ Other (describe below) Pastoral Care Referral From _x__ Patient ___ Family ___ Nurse ___ Physician ___ Weatherization Director ___ Prepress Specialist ___ Other (describe below) Sacrament/Intervention _x__ Active listening ___ Anointing ___ Taoist ___ Bereavement ___ Communion ___ Darlyn exploration ___ _x__ Life review ___ Prayer ___ Reconciliation ___ Sacrament of Sick _x__ Supportive presence ___ Wedding ___ Other (describe below) Pastoral Comments patient very talkative; pt speaks about his many surgeries and bringing 'positive thoughts for healing'; pt says he will be doing whatever he needs to in order to get well and back to work;
[2018-03-22] MEDS: Montelukast 10 MG Tablet PO (16:24)
[2018-03-22 16:25] LABS: Bedside Glucose 110 mg/dL (70-110)
[2018-03-22] MEDS: 0.9% NaCl Peripheral Flush Adult/Peds IV (20:44)
[2018-03-22 21:41] LABS: Bedside Glucose 92 mg/dL (70-110)
[2018-03-23 02:19] VITALS: BP 144/60; PULSE 90; RESP 18; TEMP 37.4; O2SAT 96
[2018-03-23] MEDS: BENZOCAINE/MENTHOL 1 LOZENGE 2 LOZENGE MUCOUS MEM (02:24)
[2018-03-23] MEDS: oxyCODONE 5 MG Tablet PO ×3 (02:24→12:45)
[2018-03-23] MEDS: Acetaminophen 500 MG Tablet 1000 MG PO (06:07)
[2018-03-23 06:13] LABS: Hematocrit 39.4 % (40-54); Hemoglobin 12.6 g/dl (13.0-16.5); Mean Corpuscular Hgb 26.9 pg (27.0-32.0); Mean Platelet Vol. 9.4 fl (6.2-12.0); Platelet Count 149 K/mm3 (150-450); RBC Distribution Width CV 13.4 % (11.6-14.6); RBC Distribution Width SD 40.5 fl (35.1-43.9); Red Blood Count 4.69 M/mm3 (4.6-6.2); White Blood Count 7.1 K/mm3 (4.4-11.0)
[2018-03-23 06:20] LABS: Scan Indicated on CBC? Y/N NO
[2018-03-23 06:36] LABS: Anion Gap 4 (5-15); BUN 31 mg/dL (7-18); BUN/Creat Ratio 18.6 RATIO (10-20); Calcium,Total 8.3 mg/dL (8.5-10.1); Chloride 107 mmol/L (98-107); Creatinine, Serum 1.67 mg/dL (0.70-1.30); EST Glomerular Filtration Rate 45 mL/min (>60); Est Glom Filt Rate - Afr Amer 55 mL/min (>60); Estimated Creatinine Clearance 43.51 ml/min; Glucose 110 mg/dL (74-106); Potassium 4.7 mmol/L (3.5-5.1); Sodium Level 141 mmol/L (136-145)
--- NOTE | 2018-03-23 07:20 | PN.ORTHO_ITS ---
Patient Problems: Active and Suspected Problems Status post revision of total replacement of right knee (Acute) Subjective: The patient was sitting in bedside chair upon examination. Patient denies any chest pain, shortness of breath, dizziness, lightheadedness, nausea or vomiting , or calf pain. Pain is controlled on medications. No adverse overnight events. Patient has been through physical therapy yesterday. Plan was for patient to go home yesterday however patient had drainage from the incision. ABDs were placed with compressive dressing. Patient states pain is well controlled. He is getting around very well with walker. Objective: Vital signs stable and afebrile. Patient is able to plantarflex and dorsiflex actively. Sensation is intact to light touch to saphenous, sural, superficial and deep peroneal, and tibial distribution. ABDs were saturated with old dried blood at distal aspect of incision. Upon removal I was unable to get any active drainage. Patient continues to have swelling and hematoma that I was unable to express. New ABDs and compressive Carlos A wrap was placed. Negative Homans bilaterally, negative signs and symptoms of DVT. - Physical Exam General: Alert, Oriented x3, Cooperative, No apparent distress Vital Signs Temp Pulse Resp BP Pulse Ox 99.4 F H 90 18 144/60 H 96 03/23/18 02:19 03/23/18 02:19 03/23/18 02:19 03/23/18 02:19 03/23/18 02:19 Oxygen Delivery Method Room Air Weight: 115.6 kg Body Mass Index (BMI) 40.5 Finger Stick Blood Glucose 278 Intake and Output for Last 24 Hours 03/21/18 03/22/18 03/23/18 23:59 23:59 23:59 Intake Total 3374 / 3374 2261 / 2261 900 / 900 Balance 3374 / 3374 2261 / 2261 900 / 900 Microbiology Past 72 Hours 03/21/18 Unknown Gram Stain - Final Tissue - Knee Wound Culture - Preliminary No growth-Final to follow 03/21/18 Unknown Gram Stain - Final Tissue - Knee Wound Culture - Preliminary No growth-Final to follow 03/21/18 Unknown Gram Stain - Final Tissue - Knee Wound Culture - Preliminary No growth-Final to follow 03/21/18 Unknown Gram Stain - Final Tissue - Knee Wound Culture - Preliminary No growth-Final to follow 03/21/18 Unknown Gram Stain - Final Biopsy - Leg, Right Wound Culture - Preliminary No growth-Final to follow Laboratory Tests Past 24 Hrs 03/22/18 03/23/18 03/23/18 06:30 05:40 05:40 WBC 7.1 RBC 4.69 Hgb 12.6 L Hct 39.4 L MCV 84.0 MCH 26.9 L MCHC 32.0 RDW 13.4 RDW Differential 40.5 Plt Count 149 L MPV 9.4 Sodium 142 141 Potassium 5.1 4.7 Chloride 107 107 Carbon Dioxide 31.0 30.0 Anion Gap 4 L 4 L BUN 34 H 31 H Creatinine 1.90 H 1.67 H Estim Creat Clear Calc 38.24 43.51 Est GFR (MDRD) Af Amer 47 L 55 L Est GFR (MDRD) Non-Af 39 L 45 L BUN/Creatinine Ratio 17.9 18.6 Glucose 130 H 110 H Calcium 8.1 L 8.3 L POC Glucose 03/22/18 03/22/18 03/22/18 20:41 16:19 11:12 POC Glucose 92 110 116 H 03/22/18 07:29 POC Glucose 134 H Medical Necessity - Tobacco Use Smoking Status: Former smoker Tobacco Use: Non-smoker Assessment/Plan Active and Suspected Problems Status post revision of total replacement of right knee (Acute) 1. 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 Continue Pain Medications: Tylenol and OxyIR 3. DVT Prophylaxis: Aspirin 325 mg twice daily 4. PT/OT: Weightbearing as tolerated 5. H & H: 12.6/39.4, asymptomatic 6. Encouraged Incentive Spirometry 7. Continue postoperative medical management per medicine 8. Continue antibiotics while following cultures: No growth at this point on cultures. Patient on doxycycline 1 week postoperatively 9. Disposition: Orthopedically stable, plan will be for discharge home this afternoon. Patient will go through physical therapy and most likely discharge after lunch. New ABDs and Carlos A wrap were placed. We will continue with this until discharge. At that time Mepilex dressing will be placed. I discussed with the nursing and patient that patient will continue with the Mepilex unless there is drainage and saturation. Patient will be given ABDs and Carlso A wrap to take home. If drainage occurs patient will use ABDs and Carlos A wrap with daily dressing changes. If he continues to have drainage on Monday he will contact our office and schedule a follow-up visit. Patient voiced understanding and agreement.
[2018-03-23 07:25] VITALS: BP 150/69; PULSE 98; RESP 16; TEMP 37; O2SAT 94
[2018-03-23] MEDS: Famotidine 20 MG Tablet PO (07:30)
[2018-03-23] MEDS: Aspirin 325 MG Tablet PO (07:30)
[2018-03-23] MEDS: Pantoprazole Sodium 20 MG Tablet PO (07:31)
[2018-03-23] MEDS: Doxycycline 100 MG CAPSULE PO (07:31)
[2018-03-23] MEDS: Multivitamins,Ther W-Minerals Tablet 1 TABLET PO (07:31)
[2018-03-23] MEDS: Senna/Docusate Sodium 1 Tablet 2 TABLET PO (07:31)
[2018-03-23] MEDS: Escitalopram Oxalate 10 MG Tablet PO (07:31)
[2018-03-23 07:40] LABS: Bedside Glucose 100 mg/dL (70-110)
[2018-03-23] MEDS: Glucerna Shake 120 ML LIQUID PO ×2 (07:40→11:43)
[2018-03-23 11:35] LABS: Bedside Glucose 53 mg/dL (70-110)
--- NOTE | 2018-03-23 11:40 | PCM.PN.HOSP ---
Patient Problems: Active and Suspected Problems Status post revision of total replacement of right knee (Acute) Subjective: Patient discharged a prior held secondary to onset of bleeding from the distal aspect of the incision following aggressive range of motion exercises by the patient. He had no further events overnight and notes that there was only some mild oozing from the distal aspect but this had improved remarkably. Patient evaluation already performed this morning per orthopedic surgery with planned continuation for discharge today. Patient denies fevers, chills, nausea, emesis, abdominal pain, chest pain or dyspnea. Objective: Physical Examination: General: awake, alert, oriented x 3 and cooperative, seated upright in chair, NAD. Skin: normal color, turgor, no icterus, cyanosis except RLE w/ dressing in place on knee, no active bleeding noted, improved from day prior when patient did have active onset notable bleeding following increased range of motion exercises. HEENT: AT/NC, EOMI, PERRLA, MMM. Lungs: CTA bilaterally, moderate effort, mild decrease BL bases, no rales, ronchi or wheezing. Heart: Regular rate and rhythm; no gallop, rub audible. Abdomen: soft, morbidly obese, NTTP, ND, normal BS. Extremities: no cyanosis, clubbing, mild edema ankle RLE, improved, s/p R TKR, dressing in place as noted, see skin. Neurological: patient awake, alert, oriented x 3; cognitive function intact; pupils equally reactive to light and accomodation; cranial nerves II-XII grossly normal, moving all 4 extremities although expected decreased movement RLE s/p R TKR, no focal deficits, strength mildly globally decreased. Psychiatric: affect appears normal, no acute evidence of depressive or anxiety feelings. Vitals/I&O's: Vital Signs Temp Pulse Resp BP Pulse Ox 98.6 F 98 16 150/69 H 94 03/23/18 07:25 03/23/18 07:25 03/23/18 07:25 03/23/18 07:25 03/23/18 07:25 Oxygen Delivery Method Room Air Weight: 254 lb 13.67 oz Body Mass Index (BMI) 40.5 Finger Stick Blood Glucose 278 Intake and Output for Last 24 Hours 03/21/18 03/22/18 03/23/18 23:59 23:59 23:59 Intake Total 3374 / 3374 2261 / 2261 900 / 900 Balance 3374 / 3374 2260 / 2260 900 / 900 Microbiology Past 72 Hours 03/21/18 Unknown Tissue - Knee Gram Stain - Final 03/21/18 Unknown Tissue - Knee Wound Culture - Preliminary No growth-Final to follow 03/21/18 Unknown Tissue - Knee Anaerobic Culture - Preliminary No growth in 48 hours. 03/21/18 Unknown Tissue - Knee Gram Stain - Final 03/21/18 Unknown Tissue - Knee Wound Culture - Preliminary No growth-Final to follow 03/21/18 Unknown Tissue - Knee Anaerobic Culture - Preliminary No growth in 48 hours. 03/21/18 Unknown Tissue - Knee Gram Stain - Final 03/21/18 Unknown Tissue - Knee Wound Culture - Preliminary No growth-Final to follow 03/21/18 Unknown Tissue - Knee Anaerobic Culture - Preliminary No growth in 48 hours. 03/21/18 Unknown Tissue - Knee Gram Stain - Final 03/21/18 Unknown Tissue - Knee Wound Culture - Preliminary No growth-Final to follow 03/21/18 Unknown Tissue - Knee Anaerobic Culture - Preliminary No growth in 48 hours. 03/21/18 Unknown Biopsy - Leg, Right Gram Stain - Final 03/21/18 Unknown Biopsy - Leg, Right Wound Culture - Preliminary No growth-Final to follow 03/21/18 Unknown Biopsy - Leg, Right Anaerobic Culture - Preliminary No growth in 48 hours. Laboratory Results 03/22/18 16:19: POC Glucose 110 03/22/18 20:41: POC Glucose 92 03/23/18 05:40: WBC 7.1, RBC 4.69, Hgb 12.6 L, Hct 39.4 L, MCV 84.0, MCH 26.9 L, MCHC 32.0, RDW 13.4, RDW Differential 40.5, Plt Count 149 L, MPV 9.4 03/23/18 05:40: Sodium 141, Potassium 4.7, Chloride 107, Carbon Dioxide 30.0, Anion Gap 4 L, BUN 31 H, Creatinine 1.67 H, Estim Creat Clear Calc 43.51, Est GFR (MDRD) Af Amer 55 L, Est GFR (MDRD) Non-Af 45 L, BUN/Creatinine Ratio 18.6, Glucose 110 H, Calcium 8.3 L 03/23/18 07:24: POC Glucose 100 03/23/18 10:56: POC Glucose 53 L Current Medications Acetaminophen (Tylenol) 1,000 mg PO Q8 [facility] Last Admin: 03/23/18 06:07 Dose: 1,000 mg Aspirin (Aspirin) 325 mg PO BIDCM [facility] Last Admin: 03/23/18 07:30 Dose: 325 mg Atorvastatin Calcium (Lipitor) 40 mg PO QHS [facility] Last Admin: 03/22/18 20:44 Dose: Not Given Doxycycline Monohydrate (Doxycycline) 100 mg PO BID [facility] Stop: 03/28/18 22:01 Last Admin: 03/23/18 07:31 Dose: 100 mg Escitalopram Oxalate (Lexapro) 10 mg PO DAILY [facility] Last Admin: 03/23/18 07:31 Dose: 10 mg Famotidine (Pepcid) 20 mg PO DAILY [facility] Last Admin: 03/23/18 07:30 Dose: 20 mg Insulin Aspart (Novolog Flexpen (Bkc)) 0 units SC TIDAC [facility] PRN Reason: Protocol Last Admin: 03/23/18 10:59 Dose: Not Given Insulin Aspart (Novolog Flexpen (Bkc)) 30 units SC 0800,1700 [facility] Last Admin: 03/23/18 07:32 Dose: 30 u Insulin Detemir (Levemir (Bkc)) 40 units SC BID [facility] Last Admin: 03/23/18 07:33 Dose: 40 u Ketorolac Tromethamine (Toradol) 15 mg IV Q6H PRN PRN PRN Reason: MILD-MOD PAIN (1-5/10) Last Admin: 03/21/18 22:30 Dose: 15 mg Montelukast Sodium (Singulair) 10 mg PO DAILY@1700 [facility] Last Admin: 03/22/18 16:24 Dose: 10 mg Morphine Sulfate () 2 - 4 mg IV Q2H PRN PRN PRN Reason: SEVERE PAIN (6-10/10) Morphine Sulfate () 2 - 4 mg IV Q2H PRN PRN PRN Reason: SEVERE PAIN (6-10/10) Last Admin: 03/21/18 18:32 Dose: 4 mg Multivitamins/Minerals (Multivitamin With Minerals) 1 tablet PO DAILY@0800 [facility] Last Admin: 03/23/18 07:31 Dose: 1 tablet Nutritional Formula (Lactose Free) (Glucerna Shake) 120 ml PO TIDCM [facility] Last Admin: 03/23/18 07:40 Dose: 120 ml Ondansetron HCl (Zofran) 4 mg IV Q8H PRN PRN PRN Reason: NAUSEA Oxycodone HCl (Oxyir) 5 - 10 mg PO Q4H PRN PRN PRN Reason: MOD-SEVERE PAIN (4-10/10) Last Admin: 03/23/18 07:37 Dose: 10 mg Pantoprazole Sodium (Protonix) 20 mg PO DAILY [facility] Last Admin: 03/23/18 07:31 Dose: 20 mg Promethazine HCl (Phenergan) 12.5 mg IM Q6H PRN PRN; Protocol PRN Reason: NAUSEA/VOMITING Senna/Docusate Sodium (Senokot-S, Narcisa-Colace) 2 tablet PO BID [facility] Last Admin: 03/23/18 07:31 Dose: 2 tablet Sodium Chloride () 5 - 30 ml IV UD PRN PRN Reason: SALINE FLUSH Last Admin: 03/22/18 20:44 Dose: 10 ml Throat Lozenges (Cepacol Sore Throat Lozenge) 2 lozenge MUCOUS MEM Q2H PRN PRN PRN Reason: SORE THROAT Last Admin: 03/23/18 02:24 Dose: 2 lozenge Tramadol HCl (Ultram) 50 mg PO Q6H PRN PRN PRN Reason: PAIN Last Admin: 03/22/18 06:00 Dose: 50 mg Valsartan (Diovan) 80 mg PO DAILY [facility] Last Admin: 03/23/18 07:31 Dose: 80 mg Medical Necessity - Tobacco Use Smoking Status: Former smoker Tobacco Use: Non-smoker Assessment/Plan Active and Suspected Problems Status post revision of total replacement of right knee (Acute) The patient is a 57 y/o M w/ PMHx: Morbid Obesity, Anxiety and Depression, Allergic Rhinitis, HLD, HTN, GERD, Diabetes mellitus type II who presents to the [facility] on 03/21/18 for planned revision R TK arthroscopy secondary to implant loosening and ongoing discomfort. (1) Severe Osteoarthritis, Pain, Debility, s/p Prior R TKR w/ Loosening Implant Components: Failed conservative therapies and treatments with noted loosening prior TKR components, admitted per Dr. Cueva for planned R TKR revision, post-operative pain management, bowel regimen, DVT Prophylaxis, PT/OT/CM per Orthopedic surgery discretion. Patient discharged a prior deferred secondary to onset of active bleeding from the distal aspect of the incision following aggressive range of motion's per patient. Bleeding has since resolved and improved with plans discharge to home today. Medicine amenable to discharge to home. (2) Diabetes mellitus type II: Hold oral home regimen, continue home insulin regimen, ADA diet, accu checks w/ ISS. Strongly encouraged ongoing lifestyle and diet changes. (3) Hypertension: Continue home regimen including Diovan, PRN hydralazine. (4) Hyperlipidemia: Continue home statin regimen. (5) Anxiety and depression: Continue home Lexapro regimen. (6) Morbid Obesity: Weight loss and lifestyle changes encouraged. (7) GERD: Maintained on PPI. (8) DVT prophylaxis: SCDs, aspirin 325 mg p.o. twice daily per orthopedic surgery discretion. Code Visit Inpatient E&M: 02373 Subs Hosp L2
--- NOTE | 2018-03-23 11:45 | PN_ITS ---
Patient Problems: Active and Suspected Problems Status post revision of total replacement of right knee (Acute) Subjective: Patient discharged a prior held secondary to onset of bleeding from the distal aspect of the incision following aggressive range of motion exercises by the patient. He had no further events overnight and notes that there was only some mild oozing from the distal aspect but this had improved remarkably. Patient evaluation already performed this morning per orthopedic surgery with planned continuation for discharge today. Patient denies fevers, chills, nausea, emesis , abdominal pain, chest pain or dyspnea. Objective: Physical Examination: General: awake, alert, oriented x 3 and cooperative, seated upright in chair, NAD. Skin: normal color, turgor, no icterus, cyanosis except RLE w/ dressing in place on knee, no active bleeding noted, improved from day prior when patient did have active onset notable bleeding following increased range of motion exercises. HEENT: AT/NC, EOMI, PERRLA, MMM. Lungs: CTA bilaterally, moderate effort, mild decrease BL bases, no rales, ronchi or wheezing. Heart: Regular rate and rhythm; no gallop, rub audible. Abdomen: soft, morbidly obese, NTTP, ND, normal BS. Extremities: no cyanosis, clubbing, mild edema ankle RLE, improved, s/p R TKR, dressing in place as noted, see skin. Neurological: patient awake, alert, oriented x 3; cognitive function intact; pupils equally reactive to light and accomodation; cranial nerves II-XII grossly normal, moving all 4 extremities although expected decreased movement RLE s/p R TKR, no focal deficits, strength mildly globally decreased. Psychiatric: affect appears normal, no acute evidence of depressive or anxiety feelings. Vitals/I&O's: Vital Signs Temp Pulse Resp BP Pulse Ox 98.6 F 98 16 150/69 H 94 03/23/18 07:25 03/23/18 07:25 03/23/18 07:25 03/23/18 07:25 03/23/18 07:25 Oxygen Delivery Method Room Air Weight: 254 lb 13.67 oz Body Mass Index (BMI) 40.5 Finger Stick Blood Glucose 278 Intake and Output for Last 24 Hours 03/21/18 03/22/18 03/23/18 23:59 23:59 23:59 Intake Total 3374 / 3374 2261 / 2261 900 / 900 Balance 3374 / 3374 2260 / 2260 900 / 900 Microbiology Past 72 Hours 03/21/18 Unknown Tissue - Knee Gram Stain - Final 03/21/18 Unknown Tissue - Knee Wound Culture - Preliminary No growth-Final to follow 03/21/18 Unknown Tissue - Knee Anaerobic Culture - Preliminary No growth in 48 hours. 03/21/18 Unknown Tissue - Knee Gram Stain - Final 03/21/18 Unknown Tissue - Knee Wound Culture - Preliminary No growth-Final to follow 03/21/18 Unknown Tissue - Knee Anaerobic Culture - Preliminary No growth in 48 hours. 03/21/18 Unknown Tissue - Knee Gram Stain - Final 03/21/18 Unknown Tissue - Knee Wound Culture - Preliminary No growth-Final to follow 03/21/18 Unknown Tissue - Knee Anaerobic Culture - Preliminary No growth in 48 hours. 03/21/18 Unknown Tissue - Knee Gram Stain - Final 03/21/18 Unknown Tissue - Knee Wound Culture - Preliminary No growth-Final to follow 03/21/18 Unknown Tissue - Knee Anaerobic Culture - Preliminary No growth in 48 hours. 03/21/18 Unknown Biopsy - Leg, Right Gram Stain - Final 03/21/18 Unknown Biopsy - Leg, Right Wound Culture - Preliminary No growth-Final to follow 03/21/18 Unknown Biopsy - Leg, Right Anaerobic Culture - Preliminary No growth in 48 hours. Laboratory Results 03/22/18 16:19: POC Glucose 110 03/22/18 20:41: POC Glucose 92 03/23/18 05:40: WBC 7.1, RBC 4.69, Hgb 12.6 L, Hct 39.4 L, MCV 84.0, MCH 26.9 L , MCHC 32.0, RDW 13.4, RDW Differential 40.5, Plt Count 149 L, MPV 9.4 03/23/18 05:40: Sodium 141, Potassium 4.7, Chloride 107, Carbon Dioxide 30.0, Anion Gap 4 L, BUN 31 H, Creatinine 1.67 H, Estim Creat Clear Calc 43.51, Est GFR (MDRD) Af Amer 55 L, Est GFR (MDRD) Non-Af 45 L, BUN/Creatinine Ratio 18.6, Glucose 110 H, Calcium 8.3 L 03/23/18 07:24: POC Glucose 100 03/23/18 10:56: POC Glucose 53 L Current Medications Acetaminophen (Tylenol) 1,000 mg PO Q8 [facility] Last Admin: 03/23/18 06:07 Dose: 1,000 mg Aspirin (Aspirin) 325 mg PO BIDCM [facility] Last Admin: 03/23/18 07:30 Dose: 325 mg Atorvastatin Calcium (Lipitor) 40 mg PO QHS [facility] Last Admin: 03/22/18 20:44 Dose: Not Given Doxycycline Monohydrate (Doxycycline) 100 mg PO BID [facility] Stop: 03/28/18 22:01 Last Admin: 03/23/18 07:31 Dose: 100 mg Escitalopram Oxalate (Lexapro) 10 mg PO DAILY [facility] Last Admin: 03/23/18 07:31 Dose: 10 mg Famotidine (Pepcid) 20 mg PO DAILY [facility] Last Admin: 03/23/18 07:30 Dose: 20 mg Insulin Aspart (Novolog Flexpen (Bkc)) 0 units SC TIDAC [facility] PRN Reason: Protocol Last Admin: 03/23/18 10:59 Dose: Not Given Insulin Aspart (Novolog Flexpen (Bkc)) 30 units SC 0800,1700 [facility] Last Admin: 03/23/18 07:32 Dose: 30 u Insulin Detemir (Levemir (Bkc)) 40 units SC BID [facility] Last Admin: 03/23/18 07:33 Dose: 40 u Ketorolac Tromethamine (Toradol) 15 mg IV Q6H PRN PRN PRN Reason: MILD-MOD PAIN (1-5/10) Last Admin: 03/21/18 22:30 Dose: 15 mg Montelukast Sodium (Singulair) 10 mg PO DAILY@1700 [facility] Last Admin: 03/22/18 16:24 Dose: 10 mg Morphine Sulfate () 2 - 4 mg IV Q2H PRN PRN PRN Reason: SEVERE PAIN (6-10/10) Morphine Sulfate () 2 - 4 mg IV Q2H PRN PRN PRN Reason: SEVERE PAIN (6-10/10) Last Admin: 03/21/18 18:32 Dose: 4 mg Multivitamins/Minerals (Multivitamin With Minerals) 1 tablet PO DAILY@0800 [facility] Last Admin: 03/23/18 07:31 Dose: 1 tablet Nutritional Formula (Lactose Free) (Glucerna Shake) 120 ml PO TIDCM [facility] Last Admin: 03/23/18 07:40 Dose: 120 ml Ondansetron HCl (Zofran) 4 mg IV Q8H PRN PRN PRN Reason: NAUSEA Oxycodone HCl (Oxyir) 5 - 10 mg PO Q4H PRN PRN PRN Reason: MOD-SEVERE PAIN (4-10/10) Last Admin: 03/23/18 07:37 Dose: 10 mg Pantoprazole Sodium (Protonix) 20 mg PO DAILY [facility] Last Admin: 03/23/18 07:31 Dose: 20 mg Promethazine HCl (Phenergan) 12.5 mg IM Q6H PRN PRN; Protocol PRN Reason: NAUSEA/VOMITING Senna/Docusate Sodium (Senokot-S, Narcisa-Colace) 2 tablet PO BID [facility] Last Admin: 03/23/18 07:31 Dose: 2 tablet Sodium Chloride () 5 - 30 ml IV UD PRN PRN Reason: SALINE FLUSH Last Admin: 03/22/18 20:44 Dose: 10 ml Throat Lozenges (Cepacol Sore Throat Lozenge) 2 lozenge MUCOUS MEM Q2H PRN PRN PRN Reason: SORE THROAT Last Admin: 03/23/18 02:24 Dose: 2 lozenge Tramadol HCl (Ultram) 50 mg PO Q6H PRN PRN PRN Reason: PAIN Last Admin: 03/22/18 06:00 Dose: 50 mg Valsartan (Diovan) 80 mg PO DAILY [facility] Last Admin: 03/23/18 07:31 Dose: 80 mg Medical Necessity - Tobacco Use Smoking Status: Former smoker Tobacco Use: Non-smoker Assessment/Plan Active and Suspected Problems Status post revision of total replacement of right knee (Acute) The patient is a 57 y/o M w/ PMHx: Morbid Obesity, Anxiety and Depression, Allergic Rhinitis, HLD, HTN, GERD, Diabetes mellitus type II who presents to the [facility] on 03/21/18 for planned revision R TK arthroscopy secondary to implant loosening and ongoing discomfort. (1) Severe Osteoarthritis, Pain, Debility, s/p Prior R TKR w/ Loosening Implant Components: Failed conservative therapies and treatments with noted loosening prior TKR components, admitted per Dr. Cueva for planned R TKR revision, post- operative pain management, bowel regimen, DVT Prophylaxis, PT/OT/CM per Orthopedic surgery discretion. Patient discharged a prior deferred secondary to onset of active bleeding from the distal aspect of the incision following aggressive range of motion's per patient. Bleeding has since resolved and improved with plans discharge to home today. Medicine amenable to discharge to home. (2) Diabetes mellitus type II: Hold oral home regimen, continue home insulin regimen, ADA diet, accu checks w/ ISS. Strongly encouraged ongoing lifestyle and diet changes. (3) Hypertension: Continue home regimen including Diovan, PRN hydralazine. (4) Hyperlipidemia: Continue home statin regimen. (5) Anxiety and depression: Continue home Lexapro regimen. (6) Morbid Obesity: Weight loss and lifestyle changes encouraged. (7) GERD: Maintained on PPI. (8) DVT prophylaxis: SCDs, aspirin 325 mg p.o. twice daily per orthopedic surgery discretion. Code Visit Inpatient E&M: 33245 Subs Hosp L2
--- NOTE | 2018-03-23 13:42 | NURSING ---
dressing to right knee changed ray notified that wound was still draining. ray said to place miplex dressing and give family supplies to change dressing over weekend if needed. pt stated pt may be discharged.
== END 2018-03-23 13:35 | disposition home or self-care (01) | DRG 467 ==
PROVIDERS: Admitting Provider Specialist; Family Provider Preventive Medicine Occupational Medicine; PCP Preventive Medicine Occupational Medicine; Visit Provider Family Medicine
PROC: 0SPC0JZ Removal of Synthetic Substitute from Right Knee Joint, Open Approach (ICD-10-PCS; principal; 2018-03-21 11:05)
DX: T84.032A Mechanical loosening of internal right knee prosthetic joint, initial encounter (principal); Z68.41 Body mass index [BMI] 40.0-44.9, adult; M24.661 Ankylosis, right knee; M17.11 Unilateral primary osteoarthritis, right knee; E11.9 Type 2 diabetes mellitus without complications; I25.10 Atherosclerotic heart disease of native coronary artery without angina pectoris; I10 Essential (primary) hypertension; E78.5 Hyperlipidemia, unspecified; F32.9 Major depressive disorder, single episode, unspecified; F41.9 Anxiety disorder, unspecified; E66.01 Morbid (severe) obesity due to excess calories; K21.9 Gastro-esophageal reflux disease without esophagitis; G89.29 Other chronic pain; J44.9 Chronic obstructive pulmonary disease, unspecified; J30.9 Allergic rhinitis, unspecified; Z98.61 Coronary angioplasty status; Z79.82 Long term (current) use of aspirin; Z79.4 Long term (current) use of insulin; Z79.84 Long term (current) use of oral hypoglycemic drugs; Z79.899 Other long term (current) drug therapy; Z87.891 Personal history of nicotine dependence
CPT/HCPCS: 36415; 73560; 80048; 82962; 83036; 85025; 85027; 87015; 87070; 87075; 87081; 87102; 87116; 87205; 87206; 97110; 97162; 97166; 97530; 99251; J7120; A4216; G0463; J2405

== ENCOUNTER → 2018-07-02 09:06 | Outpatient (CLI) | payer OTHER, SELFPAY ==
--- NOTE | 2018-07-02 09:14 | RAD_ITS ---
STUDY: X-RAY - PELVIS AND RIGHT HIP REASON FOR EXAM: Male, 57 years old. Right hip pain with widening femoral head per patient. PROCEDURE: ARTHROGRAM - BILATERAL FLUOROSCOPIC TIME: Not given. RADIATION DOSAGE (If Supplied By Facility): Not given. CONSENT: The risks, benefits and alternatives to the procedure and local anesthesia were explained to the patient. The specific risks of bleeding, infection, nerve damage and allergic reaction were discussed and accepted by the patient. Written discretion witnessed informed consent was obtained. PROCEDURE: RIGHT HIP: Right hip was localized fluoroscopically. 2 % lidocaine was administered subcutaneously for local anesthesia. Under fluoroscopic guidance, a 22-gauge spinal needle is advanced into the right hip joint. The inner stylet was removed and there was no resistance to flow of IV contrast which is documented with fluoroscopic spot images x2. Utilizing the same tubing and needle, pain management injection arthrogram was accomplished. LEFT HIP: Left hip was localized fluoroscopically. 2 % lidocaine was administered subcutaneously for local anesthesia. Under fluoroscopic guidance, a 22-gauge spinal needle is advanced into the left hip joint. The inner stylet was removed and there was no resistance to flow of IV contrast which is documented with fluoroscopic spot images x2. Utilizing the same tubing and needle, pain management injection arthrogram was accomplished. The patient tolerated the procedure well, without immediate complications. RAD/Inj/Asp Brandon Jt Should/Hip/Knee IMPRESSION: Successful fluoroscopic guided right hip pain management arthrogram. Please see same date combined report of right and left hip arthrograms for pain management. Electronically Signed: Ben Mcgregor, at 20:25 EDT Tel , Service support ,
--- NOTE | 2018-07-02 09:45 | RAD_ITS ---
STUDY: Bilateral pain management arthrograms. REASON FOR EXAM: Male, 57 years old. Right hip pain with widening of the bilateral femoral heads per patient. PROCEDURE: ARTHROGRAM - BILATERAL FLUOROSCOPIC TIME: Not given. RADIATION DOSAGE (If Supplied By Facility): Not given. CONSENT: The risks, benefits and alternatives to the procedure and local anesthesia were explained to the patient. The specific risks of bleeding, infection, nerve damage and allergic reaction were discussed and accepted by the patient. Written discretion witnessed informed consent was obtained. PROCEDURE: RIGHT HIP: Right hip was localized fluoroscopically. 2 % lidocaine was administered subcutaneously for local anesthesia. Under fluoroscopic guidance, a 22-gauge spinal needle is advanced into the right hip joint. The inner stylet was removed and there was no resistance to flow of IV contrast which is documented with fluoroscopic spot images x2. Utilizing the same tubing and needle, pain management injection arthrogram was accomplished. LEFT HIP: Left hip was localized fluoroscopically. 2 % lidocaine was administered subcutaneously for local anesthesia. Under fluoroscopic guidance, a 22-gauge spinal needle is advanced into the left hip joint. The inner stylet was removed and there was no resistance to flow of IV contrast which is documented with fluoroscopic spot images x2. Utilizing the same tubing and needle, pain management injection arthrogram was accomplished. The patient tolerated the procedure well, without immediate complications. RAD/Inj/Asp Brandon Jt Should/Hip/Knee IMPRESSION: Successful fluoroscopic guided right hip pain management arthrogram. Please see same date combined report of right and left hip arthrograms for pain management. Electronically Signed: Ben Mcgregor, at 20:26 EDT Tel , Service support ,
== END ==
PROVIDERS: Family Provider Preventive Medicine Occupational Medicine; PCP Preventive Medicine Occupational Medicine; Visit Provider Specialist
DX: M16.0 Bilateral primary osteoarthritis of hip (principal)
CPT/HCPCS: 20610; 77002; Q9967; J0702

== ENCOUNTER → 2018-08-24 12:49 | Outpatient (CLI) | payer OTHER, SELFPAY ==
--- NOTE | 2018-08-24 12:57 | PCM.CR.ITP ---
General Information - General Information Admitting Diagnosis: NSTEMI and PCI w/status post coronary stent placement - Education/Goals Barriers to Learning: None Individual Counseling: Initial Assessment: Abnormal Cholesterol Levels, High Blood Pressure, Overweight/Obesity, Diabetes, Hypertension Cardiac Rehabilitation Goals: 1. Maintain the individual as the primary focus of care. 2. To improve the patient's quality of life. 3. Identification of cardiac risk factors and provide cardiac risk factor management. 4. Enhance the psychosocial status of the patient. 5. Reconditioning enough to allow the patient to resume customary activities. 6. Control symptoms of cardiac disease Scale for measuring improvement of personal goals: Enter appropriate number in Comments. 2 = Unchanged. 3 = Slightly Better. 4 = Moderate Improvement. 5 = Met my Goal Personal Goals: Initial Assessment: Improve energy level, Participate in home exercise program, Improve knowledge of cardiac disease, Improve muscle strength and endurance, Improve diet and eating habits (eat healthier), Control risk factors (learn risk factor modification) Exercise - Initial Assessment - Visit Date of Eval: 08/24/18 - established ITP; start CR on 08/27/2018 Session #:: 0 - Stages of Change Stages of Change:: Action - Exercise Prescription Mode:: Treadmill, Rower, Airdyne, NuStep Angina with exercise?: No Target Heart Rate:: 121-130 - Hypertension Do any of the following apply?: Yes, Medication, Diet Resting Blood Pressure:: 146/82 - Intervention Home Exercise/Activity Goal:: Moderate Exercise 30 min/day x 5 days/wk - Education Goals:: Warm-up, RPE EDITH Scale, S/S, Safe Exercise, Self-Monitoring - Exercise Program Goals Exercise Program Goals: Aerobic Activity >30 min Nutrition - Initial Assessment - Program Goals Nutrition Program Goals: LDL <70. Total Cholesterol <200. HDL >45. Triglycerides <150. HgbA1C <7%. BMI <25 - Visit Date of Assessment:: 08/24/18 - Stages of Change Stages of Change:: Action - Lipids Total Cholesterol (mg/dL) Goal = less than 200 mg/dL: 200 HDL Cholesterol (mg/dL) Goal = less than 45 mg/dL: 60 LDL Cholesterol (mg/dL) Goal = less than 70 mg/dL: 101 Triglycerides (mg/dL) Goal = less than 150 mg/dL: 196 - Diabetes Diabetes:: Yes Hgb A1C: 6.5 Insulin: Yes Do you monitor your blood sugar at home?: Yes - Weight Management Height: 5 ft 7 in - 3 Weight:: 258 lb Body Fat %:: 40.47 - Intervention Referral to dietitian:: Yes Referral to Diabetic Clinic:: Yes Will attend diet classes:: Yes - Education Gave educational materials for:: Signs & symptoms of hypoglycemia, Signs & symptoms of hyperglycemia, Relate diabetes to coronary artery disease, Healthy eating Tobacco - Initial Assessment - Program Goals Tobacco Program Goals: Complete smoking cessation. Attend education classes. Improve Knowledge Test score - Stage of Change Stages of Change:: Action - Learning Barriers Learning Barriers: Ready to Learn - Family Support Do you have family support?: Yes - Tobacco Use Tobacco Use: Non-smoker Do you use smokeless tobacco?: No - Intervention Smoking Cessation Referral:: No Individual Education/Counseling:: No Education Schedule Given:: Yes - Education Gave educational material for:: Coronary artery disease, Risk factors, Sexuality, Medical compliance, Cardiac A&P, Angina signs & symptoms Psychosocial - Initial Assess - Target Goals Target Goals: Assess presence or absence of depression. Using a valid screening tool, maximizes coping skills. Positive support system - Stages of Change Stages of Change:: Action - Psychosocial Test Tool Used:: HANDS Depression Questionnaire - Intervention PS - Interventions: Yes Attend Stress Management Classes, No Referral to Mental Health, No Referral to [facility] Case Management, No Referral to Physician, No Uses Stress Management Skills - Education Gave educational materials for:: Coping techniques, Signs & symptoms of depression, Stress management, Relaxation techniques - Patient/Program Goal Preventative Medication(s):: Aspirin, Clopidogrel, Beta segun, Statin/lipid - Assistive Devices Assistive Devices:: None Fall Risk Assessed:: Yes - Right knee problems status post replacement/infection Patient Health Questionnaire Initial Assessment 1. Little interest or pleasure in doing things: Not at all 2. Feeling down, depressed, or hopeless: Not at all 3. Trouble falling or staying asleep, or sleeping too much: Not at all 4. Feeling tired or having little energy: Not at all 5. Poor appetite or overeating: Not at all 6. Feeling bad about yourself -- or that you are a failure or have let yourself or your family down: Several days 7. Trouble concentrating on things, such as reading the newspaper or watching television: Not at all 8. Moving or speaking so slowly that other people could have noticed. Or the opposite - being so fidgety or restless that you have been moving around a lot more than usual: Not at all 9. Thoughts that you would be better off , or of hurting yourself in some way: Not at all How difficult have these problems made it for you to do your work, take care of things at home, or get along with other people?: Somewhat difficult Total Score: 1 CARRILLO-Q SV Test - Statements CAD is a disease of the arteries in the heart: False Examples of risk factors for heart disease: True Angina is chest pain or discomfort: True The benefits of resistance training include: True Eating more meat and dairy products: False Anti-platelet medications such as aspirin are important: I Don't Know The only effective way to manage stress: False An exercise warm-up slowly increases heart rate: False Prepared, processed foods usually have high sodium: True Depression is common after a heart attack: False The statin medications lower cholesterol: True To control blood pressure, lower the amount of sodium: True If someone gets chest discomfort during walking: False Transfats are partially hydrogenated vegetable oils: I Don't Know Sleep apnea that is not treated increases the risk: True To control cholesterol, one should become a vegetarian: False Someone knows if he/she is exercising at the right level: I Don't Know Diabetes cannot be prevented with exercise & health eating: False Stress is a large risk for heart attack: True A diet that can help lower blood pressure is rich in: True - Total Score Total Correct Responses: 14 Self-Efficacy Initial Assessment We would like to know how confident you are in doing certain activities. Please select your confidence level for:: Select your confidence level for the following using the scale 1-10 where 1 is not at all confident and 10 is totally confident. Your score is the average of all 6 responses. Fatigue: How confident are you that you can keep the fatigue caused by your disease from interfering with the things you want to do? Select Number: 6 Physical Discomfort or Pain: How confident are you that you can keep the physical discomfort or pain of your disease from interfering with the things you want to do? Select Number: 5 Emotional Distress: How confident are you that you can keep the emotional distress caused by your disease from interfering with the things you want to do? Select Number: 6 Other Symptoms or Health Problems: How confident are you that you can keep other symptoms or health problems from interfering with the things you want to do? Select Number: 6 Different Tasks and Activities: How confident are you that you can do the different tasks and activities needed to manage your health condition so as to reduce your need to see a doctor? Select Number: 5 Medication: How confident are you that you can do things other than just taking medication to reduce how much your illness affects your everyday life? Select Number: 7 Total Score:: 5 Nutrition Survey - Nutrition Survey Instructions Scoring Instructions: Scoring is as follows: Yes = 1 points. No = 0 point. Patient score that is >/=12 is considered to be at potential nutritional risk and could benefit from a referral to a registered dietitian. - Nutrition Survey Initial Have you lost >10 lbs over the past 2 months without trying?: No Are you following a special diet at home for diabetes, low fat, or low salt?: No Are you interested in meeting with a dietitian for help understanding your diet?: No Do you eat less than 3 meals a day?: No Do you eat fatty meats (gutierrez, sausage, ribs, etc), fried foods, desserts, large amounts of salad dressings, margarine, butter, or cheese most days?: No Do you have food allergies? [Enter types in comment field]: No Do you eat in restaurants more than 3 times a week?: No Do you season food with salt, seasoning salt, or garlic salt?: Yes Do you used canned, boxed, frozen meals, or soups, seasoning packets?: No Total Score:: 1
--- NOTE | 2018-08-24 12:57 | PCM.CR.HP2 ---
CR - History & Physical - General Arrival date:: 08/24/18 Arrival time:: 12:57 Date of Referral:: 08/16/18 Date of CR Evaluation:: 08/24/18 Referring Physician: Dr. Ariel Gamble @ [place] Primary Diagnosis: AK and PCI w/ coronary stetn placement 07/03/2018 - History of Present Cardiac Event Onset Date: Enter Onset Date of cardiac illnesses in Comment field below Acute Myocardial Infarction within 12 months:: Yes - 07/03/2018 PTCA or coronary stenting:: Yes - PCI w/ stent placement 07/03/2018 Type of Symptoms:: sharp pain in center of chest, ambulating to car from [facility] house radiated to jaw and neck. Denied shortness of breath or diaphoresis. Interventions with present event:: PCI w/ stent to right coronary artery Were there any complications?: none - Medications Home Medications: Ambulatory Orders Medication Instructions Recorded Escitalopram Oxalate [Lexapro] 10 mg PO DAILY 10/15/16 Multivit-Min/FA/Lycopen/Lutein 1 each PO DAILY 10/15/16 [Centrum Silver Tablet] Omeprazole [Prilosec] 20 mg PO DAILY 10/15/16 Valsartan [Diovan] 80 mg PO DAILY 10/15/16 Insulin Aspart [Novolog Flexpen] 30 units SC BID 01/15/18 Insulin Degludec [Tresiba 50 unit SQ BID 01/15/18 Flextouch U-100] Atorvastatin Calcium [Lipitor] 40 mg PO QHS 03/05/18 Doxycycline 100 mg PO BID #14 cap 03/22/18 Montelukast [Singulair] 10 mg PO DAILY@1700 #42 tab 03/22/18 Oxycodone [Oxyir] 5 - 10 mg PO Q4H PRN PRN 7 Days 03/22/18 #84 tablet Senna/Docusate Sodium [Senokot-S] 2 tab PO BID #20 tab 03/22/18 Aspirin 81 mg PO BIDCM 08/24/18 Clopidogrel Bisulfate [Clopidogrel] 75 mg PO 08/24/18 Losartan/Hydrochlorothiazide 1 each PO 08/24/18 [Losartan-Hctz 100-25 mg Tab] Metoprolol Tartrate [Lopressor 12.5 mg PO BID 08/24/18 (Beta Elizabeth)] Pravastatin Sodium 40 mg PO 08/24/18 - Allergies Allergies/Adverse Reactions: Allergies No Known Allergies Allergy (Verified 03/05/18 14:55) - Sleep Disorder Evaluation Hx of Sleep Apnea: No Do you snore loudly (louder than talking or can be heard through closed doors)?: Yes Do you often feel tired/ fatigued/ sleepy during daytime?: No Has anyone observed you stop breathing during sleep?: No History of Hypertension (for STOP score): Yes STOP Results: Positive Advanced Directives - Advanced Directives 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 Exhaust 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 Living Will: Yes Advance Directives Information Provided: No Advance Directives on File: Yes - Should be on file from previous admissions DNR Order?:: No - MOLST See MOLST form: No Past Medical History - Past Medical Illness Medical History: Past Medical History (Last Updated 08/24/18 @ 13:07 by Blayne Disla CRT, YASH, BS) NSTEMI (non-ST elevated myocardial infarction) I21.4 - Past Surgical History Surgical History: Past Surgical History (Last Updated 08/24/18 @ 13:07 by Blayne Disla CRT, YASH, BS) Coronary angioplasty status Z98.61 Status post coronary artery stent placement Z95.5 Surgical History: arthroscopy, knee - several times, cataract, cholecystectomy - 2009, herniorrhaphy - Hiatal., total knee arthroplasty - Right., - - right elbow surgery x 2. Social History - Smoking History Smoking Status: Former smoker Years Smokin Packs Smoked per Day: 0.5 Hx Smoking Cessation Date: quit 23 years ago Hx Tobacco Use: Yes Hx Smoking Exposure: No - Alcohol Use Alcohol Usage: Yes - very seldom drink - Substance Abuse Hx Substance Use: No - Occupation Occupation (List type of work in comments):: Employed Hours worked per day:: 10 Returned to work on:: 07/16/18 - Hobbies, Recreation, Social Activities Hobbies: Other - Hunting, golfing, anxious to get back to get back on the golf course Recreational Activities: I am able to engage in all my recreational activities Social Environment - Status Marital Status: - Current Living Arrangements Living Environment:: Spouse - Children How many children do you have?: 1 Do any of your children live nearby?: Yes - Safety Do you feel safe in your surroundings?: Yes - Assistance Do you need any assistance at home?: none Review of Systems - Review of Systems Hints: Right click = Denies ([place]). Left click = Reports ([place]) Review of Present Symptoms: Reports: Appetite - Normal, Sleep - Normal. Denies: Shortness of Breath at Rest, Shortness of Breath with Exertion, Operative Discomfort, Angina, Dizziness/Lightheadedness, Fatigue, Heart Arrhythmia/Irregularities, Appetite - Special Diet, Sexual Changes - Pain Is Patient Pain Free?: No Pain Location: other - Right knee pain Pain Level: 01/06 - alwasy a two, replaced the knee and had to open it up three times for infection, ended up replacing it second time. Spent about 6 weeks in the hospital with it. Risk Factor Assessment - Chief Complaint Chief Complaint: Patient is a 57 yr old male patient who presents to cardiac rehab today following recent NSTEMI and subsequent PCI with coronary intervention at [facility] on 07/03/2018. - Vital Signs Temperature: 98 F - 7 Respiratory Rate: 16 Pulse Ox: 96 - Pulse Pulse Rate: 71 Pulse Rhythm: Regular - Hypertension How long have you been treated?: 146/82 On medication(s)?: yes Blood Pressure Sitting - Left Arm: 146/82 - Stress Stress: Work-related - Diabetes Diabetic History: Type II, Insulin Dependent Nutrition Referral for Diabetes: Yes - Obesity Height: 5 ft 7 in Weight:: 258 lb Weight in Pounds: 258.0 lbs Weight Source: Standing Scale Body Mass Index (BMI): 40.4 Nutritional Referral for Obesity: Yes - Physical Inactivity Physical Inactivity: Reg Exercise 30 min/day - walking 20-25,000 steps per day between working and walking the dog., Physically demanding job - Risk Stratification Risk Guidelines: Lowest Risk: Risk Factor for Smoking, Risk Factor for Dyslipidemia, Risk Factor for Diabetes - last A1c 6.5, Risk Factor for Hypertension, Risk Factor for Sedentary Lifestyle, Risk Factor for Depression, Highest Risk: Risk Factor for Obesity - For Smoking Smoking Risk Guidelines: Smoking Low Risk: None or quit greater than 6 months ago. Smoking Moderate Risk: Smoker or quit 6 months or less ago. Smoking High Risk: Smoker - For Dyslipidemia Dyslipidemia Risk Guidelines: Low Risk: Moderate Risk: High Risk: 15-25% fat 25.1-29% fat >/= 30% fat. <7% sat fat 7-9% sat fat >9% sat fat. <150 mg chol 150-299 mg chol >/= 300 mg chol. LDL <100 LDL 100-129 LDL >/= 130. Chol/HDL ratio <5.0 Chol/HDL ratio 5.0-6.0 Chol/HDL ratio >6.0. Triglycerides <100 Triglycerides 100-149 Triglycerides >/= 150 - For Diabetes Mellitus Diabetes Risk Guidelines: Diabetes Low Risk: HgA1c <6.5% and/or FBG <120. Diabetes Moderate Risk: HgA1c 6.6-7.9% and/or FBG 120-180. Diabetes High Risk: HgA1c >/= 8% and/or FBG >180 - For Obesity/Overweight Obesity/Overweight Risk Guidelines: Obesity Low Risk: BMI <25.0. Obesity Moderate Risk: BMI 25-29.9. Obesity High Risk: BMI >/= 30.0 - For Hypertension Hypertension Risk Guidelines: Hypertension Low Risk: Systolic <120 and Diastolic <80. Hypertension Moderate Risk: Systolic 120-139 and Diastolic 80-89. Hypertension High Risk: Systolic >/= 140 and Diastolic >/= 90 - For Sedentary Lifestyle Sedentary Lifestyle Risk Guidelines: Sedentary Lifestyle Low Risk: >/= 1,500 kcal/week. Sedentary Lifestyle Moderate Risk: 700-1,499 kcal/week. Sedentary Lifestyle High Risk: < 700 kcal/week - For Depression Depression Risk Guidelines: Depression Low Risk: Not clinically depressed. Depression Moderate Risk: Mildly depressed. Depression High Risk: Clinically depressed Motivation - Motivation to Participate On a scale of 1 to 10, how prepared are you to commit to attending program?: 10 What do you see as barriers to successfully being able to complete the program?: right knee and still having problems with it. What do you see as the benefits of succesfully completing the program? In other words, what do you hope to get out of participating in the program?: getting better, getting back to normal lifestyle Are there issues you are dealing with that will interfere with completing the program?: right knee pain discomfort Do you have a spouse or signficant other, family or friends who will help support you to complete the program?: yes
[2018-08-24 13:19] VITALS: BP 146/82; PULSE 71; RESP 16; TEMP 36.6; O2SAT 96; BMI 40.4
[2018-08-24 13:57] VITALS: BP 146/82
== END ==
PROVIDERS: Family Provider Preventive Medicine Occupational Medicine; PCP Preventive Medicine Occupational Medicine
DX: Z95.5 Presence of coronary angioplasty implant and graft (principal); I25.2 Old myocardial infarction

== ENCOUNTER 2018-09-26 15:15 | Outpatient (RCR) | payer OTHER, SELFPAY ==
--- NOTE | 2018-09-21 11:08 | CR.ITP_ITS ---
Exercise - 30-day Assessment - Visit Date of Eval: 09/21/18 Session #:: 11 - Stages of Change Stages of Change:: Action - Exercise Prescription Mode:: Treadmill, Rower, Airdyne, NuStep Frequency (x/week): 3 Duration:: 35 METs - Progression: 0.5-1 MET as tolerated: 5 Target Heart Rate:: 121-130 - Hypertension Resting Blood Pressure:: 142/74 Peak Exercise Blood Pressure:: 184/90 Medication Changes:: No - Intervention Home Exercise/Activity Goal:: Sitting Time <3 hrs/day - Education Goals:: Warm-up, RPE EDITH Scale, S/S, Safe Exercise, Self-Monitoring - Exercise Program Goals Exercise Program Goals: B/P <130/80 - still above optimal BP control at rest. Nutrition - Initial Assessment - Program Goals Nutrition Program Goals: LDL <70. Total Cholesterol <200. HDL >45. Triglycerides <150. HgbA1C <7%. BMI <25 - Diabetes Do you monitor your blood sugar at home?: Yes Nutrition - 30-Day Assessment - Program Goals Nutrition Program Goals: LDL <70. Total Cholesterol <200. HDL >45. Triglycerides <150. HgbA1C <7%. BMI <25 - Visit Date of Eval: 09/21/18 - Stages of Change Stages of Change:: Action - Lipids Has the patient seen the dietitian?: Yes - Diabetes Diabetes:: Yes Fasting blood glucose:: 73 - 73-141 Insulin: Yes Non-Insulin Dependent?: Yes - Weight Management Weight:: 245 lb - Intervention Referral to dietitian:: Yes Referral to Diabetic Clinic:: Yes Will attend diet classes:: Yes - Education Attended class for:: Signs & symptoms of hypoglycemia, Signs & symptoms of hyperglycemia, Relate diabetes to coronary artery disease, Healthy eating Tobacco - Initial Assessment - Program Goals Tobacco Program Goals: Complete smoking cessation. Attend education classes. Improve Knowledge Test score - Learning Barriers Learning Barriers: Ready to Learn Tobacco - 30-Day Assessment - Program Goals Tobacco Program Goals: Complete smoking cessation. Attend education classes. Improve Knowledge Test score - Stage of Change Stages of Change:: Action - Learning Barriers Learning Barriers: Participates in education, Change in behavior - Tobacco Use Tobacco Use: Non-smoker Do you use smokeless tobacco?: No - Intervention Education Schedule Given:: Yes - Education Attended class for:: Coronary artery disease, Risk factors, Sexuality, Medical compliance, Cardiac A&P, Angina signs & symptoms Psychosocial - Initial Assess - Target Goals Target Goals: Assess presence or absence of depression. Using a valid screening tool, maximizes coping skills. Positive support system - Psychosocial Test Tool Used:: HANDS Depression Questionnaire - Assistive Devices Fall Risk Assessed:: Yes - Right knee problems status post replacement/infection Psychosocial - 30-Day Assess - Target Goals Target Goals: Assess presence or absence of depression. Using a valid screening tool, maximizes coping skills. Positive support system - Stages of Change Stages of Change:: Action - Psychosocial Test Tool Used:: HANDS Depression Questionnaire - Intervention PS - Interventions: Yes Attend Stress Management Classes, Yes Uses Stress Management Skills, No Referral to Mental Health, No Referral to [facility] Case Management, No Referral to Physician - Education Attended classes for:: Coping techniques, Signs & symptoms of depression, Stress management, Relaxation techniques - Patient/Program Goal Preventative Medication(s):: Aspirin, Clopidogrel, Beta segun, Statin/lipid - Assistive Devices Assistive Devices:: None Fall Risk Assessed:: Yes Patient Health Questionnaire 30-Day Re-eval Assessment 1. Little interest or pleasure in doing things: Not at all 2. Feeling down, depressed, or hopeless: Not at all 3. Trouble falling or staying asleep, or sleeping too much: Not at all 4. Feeling tired or having little energy: Not at all 5. Poor appetite or overeating: Not at all 6. Feeling bad about yourself -- or that you are a failure or have let yourself or your family down: Not at all 7. Trouble concentrating on things, such as reading the newspaper or watching television: Not at all 8. Moving or speaking so slowly that other people could have noticed. Or the opposite - being so fidgety or restless that you have been moving around a lot more than usual: Not at all 9. Thoughts that you would be better off , or of hurting yourself in some way: Not at all Total Score: 0 Self-Efficacy 30-Day Re-eval Assessment We would like to know how confident you are in doing certain activities. Please select your confidence level for:: Select your confidence level for the following using the scale 1-10 where 1 is not at all confident and 10 is totally confident. Your score is the average of all 6 responses. Fatigue: How confident are you that you can keep the fatigue caused by your disease from interfering with the things you want to do? Select Number: 7 Physical Discomfort or Pain: How confident are you that you can keep the physical discomfort or pain of your disease from interfering with the things you want to do? Select Number: 8 Emotional Distress: How confident are you that you can keep the emotional distress caused by your disease from interfering with the things you want to do? Select Number: 8 Other Symptoms or Health Problems: How confident are you that you can keep other symptoms or health problems from interfering with the things you want to do? Select Number: 9 Different Tasks and Activities: How confident are you that you can do the different tasks and activities needed to manage your health condition so as to reduce your need to see a doctor? Select Number: 9 Medication: How confident are you that you can do things other than just taking medication to reduce how much your illness affects your everyday life? Select Number: 8 Total Score:: 8
[2018-09-21 11:12] VITALS: BP 142/74; BP 184/90
== END 2018-09-26 23:59 ==
LOC: CR 15:15
PROVIDERS: Family Provider Preventive Medicine Occupational Medicine; PCP Preventive Medicine Occupational Medicine
DX: I21.4 Non-ST elevation (NSTEMI) myocardial infarction (principal)
CPT/HCPCS: 93798

== ENCOUNTER 2018-10-17 15:15 | Outpatient (RCR) | payer OTHER, SELFPAY ==
[2018-09-27 00:20] VITALS: BP 142/74; BP 184/90
[2018-10-15 08:52] VITALS: BP 108/82; BP 168/80
--- NOTE | 2018-10-15 08:52 | CR.ITP_ITS ---
Exercise - 60-Day Assessment - Visit Date of Eval: 10/15/18 Session #:: 20 - Stages of Change Stages of Change:: Action - Exercise Prescription Mode:: Treadmill, Rower, Airdyne, NuStep Frequency (x/week): 3 Duration:: 35 METs: 7 Target Heart Rate:: 121-130 max HR 130 - Hypertension Resting Blood Pressure:: 108/82 Peak Exercise Blood Pressure:: 168/80 Medication Changes:: Yes - Intervention Home Exercise/Activity Goal:: Moderate Exercise 30 min/day x 5 days/wk - Education Goals:: Warm-up, RPE EDITH Scale, S/S, Safe Exercise, Self-Monitoring - Exercise Program Goals Exercise Program Goals: Aerobic Activity >30 min Nutrition - Initial Assessment - Program Goals Nutrition Program Goals: LDL <70. Total Cholesterol <200. HDL >45. Triglycerides <150. HgbA1C <7%. BMI <25 - Diabetes Do you monitor your blood sugar at home?: Yes Nutrition - 60-Day Assessment - Program Goals Nutrition Program Goals: LDL <70. Total Cholesterol <200. HDL >45. Triglycerides <150. HgbA1C <7%. BMI <25 - Visit Date of Eval: 10/15/18 - Stages of Change Stages of Change:: Action - Lipids Has the patient seen the dietitian?: No - Diabetes Diabetes:: Yes Insulin: Yes Non-Insulin Dependent?: Yes - metformin - Weight Management Weight:: 244 lb - down 3 pounds this 30-days - Intervention Referral to dietitian:: No Referral to Diabetic Clinic:: No Will attend diet classes:: Yes - Education Attended class for:: Signs & symptoms of hypoglycemia, Signs & symptoms of hyperglycemia, Relate diabetes to coronary artery disease, Healthy eating Tobacco - Initial Assessment - Program Goals Tobacco Program Goals: Complete smoking cessation. Attend education classes. Improve Knowledge Test score - Learning Barriers Learning Barriers: Ready to Learn Tobacco - 60-Day Assessment - Program Goals Tobacco Program Goals: Complete smoking cessation. Attend education classes. Improve Knowledge Test score - Stage of Change Stages of Change:: Action - Learning Barriers Learning Barriers: Participates in education - Family Support Do you have family support?: Yes - Tobacco Use Tobacco Use: Non-smoker Do you use smokeless tobacco?: No - Intervention Smoking Cessation Referral:: No Individual Education/Counseling:: No Education Schedule Given:: Yes - Education Attended class for:: Coronary artery disease, Risk factors, Sexuality, Medical compliance, Cardiac A&P, Angina signs & symptoms Psychosocial - Initial Assess - Target Goals Target Goals: Assess presence or absence of depression. Using a valid screening tool, maximizes coping skills. Positive support system - Psychosocial Test Tool Used:: HANDS Depression Questionnaire - Assistive Devices Fall Risk Assessed:: Yes Psychosocial - 60-Day Assess - Target Goals Target Goals: Assess presence or absence of depression. Using a valid screening tool, maximizes coping skills. Positive support system - Stages of Change Stages of Change:: Action - Psychosocial Test Tool Used:: HANDS Depression Questionnaire - Intervention PS - Interventions: Yes Attend Stress Management Classes, Yes Uses Stress Management Skills, No Referral to Mental Health, No Referral to [facility] Case Management, No Referral to Physician - Education Attended classes for:: Coping techniques, Signs & symptoms of depression, Stress management, Relaxation techniques - Patient/Program Goal Preventative Medication(s):: Aspirin, Clopidogrel, Beta segun, Statin/lipid - Assistive Devices Assistive Devices:: None Fall Risk Assessed:: Yes Patient Health Questionnaire 60-Day Re-eval Assessment 1. Little interest or pleasure in doing things: Not at all 2. Feeling down, depressed, or hopeless: Not at all 3. Trouble falling or staying asleep, or sleeping too much: Not at all 4. Feeling tired or having little energy: Not at all 5. Poor appetite or overeating: Not at all 6. Feeling bad about yourself -- or that you are a failure or have let yourself or your family down: Not at all 7. Trouble concentrating on things, such as reading the newspaper or watching television: Not at all 8. Moving or speaking so slowly that other people could have noticed. Or the opposite - being so fidgety or restless that you have been moving around a lot more than usual: Not at all 9. Thoughts that you would be better off , or of hurting yourself in some way: Not at all Total Score: 0 Self-Efficacy 60-Day Re-eval Assessment We would like to know how confident you are in doing certain activities. Please select your confidence level for:: Select your confidence level for the following using the scale 1-10 where 1 is not at all confident and 10 is totally confident. Your score is the average of all 6 responses. Fatigue: How confident are you that you can keep the fatigue caused by your disease from interfering with the things you want to do? Select Number: 10 Physical Discomfort or Pain: How confident are you that you can keep the physical discomfort or pain of your disease from interfering with the things you want to do? Select Number: 10 Emotional Distress: How confident are you that you can keep the emotional distress caused by your disease from interfering with the things you want to do? Select Number: 10 Other Symptoms or Health Problems: How confident are you that you can keep other symptoms or health problems from interfering with the things you want to do? Select Number: 10 Different Tasks and Activities: How confident are you that you can do the different tasks and activities needed to manage your health condition so as to reduce your need to see a doctor? Select Number: 10 Medication: How confident are you that you can do things other than just taking medication to reduce how much your illness affects your everyday life? Select Number: 10 Total Score:: 10
== END 2018-10-26 23:59 ==
LOC: CR 15:15
PROVIDERS: Family Provider Preventive Medicine Occupational Medicine; PCP Preventive Medicine Occupational Medicine
DX: I21.4 Non-ST elevation (NSTEMI) myocardial infarction (principal)
CPT/HCPCS: 93798

== ENCOUNTER 2018-11-16 15:15 | Outpatient (RCR) | payer OTHER, SELFPAY ==
[2018-08-24 13:19] VITALS: BMI 40.4
[2018-10-27 00:25] VITALS: BP 108/82; BP 168/80
== END 2018-11-26 23:59 ==
LOC: CR 15:15
PROVIDERS: Family Provider Preventive Medicine Occupational Medicine; PCP Preventive Medicine Occupational Medicine
DX: I21.4 Non-ST elevation (NSTEMI) myocardial infarction (principal)
CPT/HCPCS: 93798

== ENCOUNTER 2020-12-24 21:02 | Emergency (ER) | payer OTHER, SELFPAY ==
[2020-12-24 21:03] VITALS: BP 189/89; PULSE 66; RESP 15; TEMP 36.5; O2SAT 97; BMI 39.6
--- NOTE | 2020-12-24 22:08 | NURSING ---
PT UNIT AIDE TECH RICHARD GAMEZ STATES NO DRUG SCREEN NEEDED.
[2020-12-24] MEDS: Diphth,Pertuss(Acell),Tet Vac 0.5 ML Vial IM (22:27)
[2020-12-24] MEDS: Lidocaine 1% (20 ml mdv) 20 ML Vial INFILT (22:27)
[2020-12-24] MEDS: BACITRACIN 15 GM Tube 1 APPLIC TOPICAL (22:28)
--- NOTE | 2020-12-24 23:05 | ED.DCSUM_ITS ---
- ER Visit Summary Date of Service: 12/24/20 Chief Complaint: Left fifth finger laceration History of Present Illness: The patient is a 60 M who presents with laceration to his left fifth finger that occurred today while at work. Patient states he was using a sanding wheel when he cut his finger on the edge of it. Patient denies any paresthesias or weakness. Patient describes his pain as burning. Patient states nothing makes it worse and nothing makes it better. Patient is unsure of his last tetanus. Physical Examination: Vital signs are stable. Patient is afebrile. Patient is in no acute distress. Skin is warm dry. There is a 1 cm full-thickness linear laceration over the ulnar aspect of the distal phalanx of the left fifth finger. There is mild gapping of the wound margins. There are no foreign bodies noted. There is minimal bleeding noted. Sensation was intact to light touch in all digits. Capillary refill is less than 2 seconds in all digits. Strength is 5/5 in flexion extension of the DIP, PIP, and MP joints. Emergency Department Course and Treatment: The wound was cleaned and irrigated with copious amounts of normal saline. The wound was anesthetized with [1% plain lidocaine] [via digital block]. The wound was closed with [2] [simple interrupted] #[4]-0 [nylon] sutures under sterile technique. Patient tolerated the procedure well. Bacitracin dressing was applied. Patient was given a dose of Keflex here. Patient was given a prescription for Keflex. Patient was instructed to follow-up with his primary care physician or [facility] in 7 days for wound recheck and suture removal. Patient was instructed return if worse in any way. Patient understood and was agreeable with the plan. All questions were answered. Disposition: Discharge home Impression: Left fifth finger laceration This note was generated with [employer] dictation software. It may contain incorrect words, spelling, and punctuation that were not noted in review of the chart prior to signing ED Disposition - Plan for ED Patient: Disposition: Home or Assisted Living Diagnosis: Laceration of left little finger w/o foreign body w/o damage to nail Instructions: ED Laceration, Hand: All Closures Prescriptions: Cephalexin [Keflex] 500 mg PO Q6 #40 cap Transmission Status: Pending to [facility]/pharmacy #[id number] Referrals: Deisi,Ben, DO [Primary Care Provider] - 7 Days for suture removal
[2020-12-24] MEDS: Cephalexin 500 MG Capsule PO (23:15)
[2020-12-24 23:16] VITALS: PULSE 67; RESP 16; TEMP 36.7
== END 2020-12-24 23:18 | disposition home or self-care (01) ==
PROVIDERS: Emergency Provider Emergency Medicine; PCP Preventive Medicine Occupational Medicine
DX: S61.217A Laceration without foreign body of left little finger without damage to nail, initial encounter (principal); I25.10 Atherosclerotic heart disease of native coronary artery without angina pectoris; E11.9 Type 2 diabetes mellitus without complications; E78.00 Pure hypercholesterolemia, unspecified; I10 Essential (primary) hypertension; Z79.4 Long term (current) use of insulin; X58.XXXA Exposure to other specified factors, initial encounter
CPT/HCPCS: 12001; 90471; 90715; 99285

== ENCOUNTER → 2022-06-16 | Outpatient (CLI) | payer OTHER, SELFPAY ==
[2022-06-16 10:49] LABS: Erythrocyte Sedimentation Rate 36 mm/hr (0-20)
[2022-06-16 10:52] LABS: Absolute Neutrophil Count 4.6 X10^3/uL (2.0-7.7); Basophil# 0.03 X10^3/uL; Basophil% 0.4 % (0-1); Eosinophils% 1.5 % (0-5); Hematocrit 41.8 % (40-54); Hemoglobin 13.5 g/dL (13.0-16.5); Lymphocyte % 23.3 % (19-41); Mean Corp Hgb Conc 32.3 g/dL (32-36); Mean Corpuscular Hgb 27.2 pg (27.0-32.0); Mean Corpuscular Volume 84.1 fL (80-94); Monocyte# 0.55 X10^3/uL; NRBC Flagged by Analyzer 0 % (0-5); Neutrophil # 4.57 X10^3/uL (2.7-7.7); Neutrophil % 66.5 % (47-70); Platelet Count 186 K/mm3 (150-450); RBC Distribution Width CV 13.3 % (11.6-14.6); RBC Distribution Width SD 41.1 fl (35.1-43.9); Red Blood Count 4.97 M/mm3 (4.6-6.2); White Blood Count 6.9 K/mm3 (4.4-11.0)
[2022-06-16 11:13] LABS: CRP 6.76 mg/L (0.0-3.0)
== END | disposition home or self-care (01) ==
LOC: LAB 09:48
PROVIDERS: PCP Preventive Medicine Occupational Medicine; Referring Provider Specialist; Visit Provider Specialist
DX: Z96.651 Presence of right artificial knee joint (principal)
CPT/HCPCS: 36415; 85025; 85652; 86140

== ENCOUNTER → 2022-06-30 | Outpatient (CLI) | payer OTHER, SELFPAY ==
[2022-06-30 14:42] LABS: Synovial Fld Mononuclear WBC # 0.096 10^3/ul; Synovial Fld Mononuclear WBC % 59.3 %; Synovial Fld Polynuclear WBC # 0.066 10^3/uL; Synovial Fld Polynuclear WBC % 40.7 %
[2022-06-30 14:45] LABS: RBC /Synovial Fluid 0.011 10^6/uL (0)
[2022-06-30 15:41] LABS: AUTO B FLUID DILUENT BKGD CT WBC <0.1 RBC <0.01 (W<.1,R<.01); Source / Synovial Fluid R KNEE
[2022-06-30 15:42] LABS: Appearance /Synovial Fluid Sl Cl (CLEAR); Color / Synovial Fluid Yellow (Pale Yellow)
[2022-06-30 16:01] LABS: Lymph 49 %; Monocyte /Synovial Fluid 36 %; Neutrophil 15 % (0-25)
[2022-07-01 13:13] LABS: Pathologist Comment Reviewed
== END | disposition home or self-care (01) ==
PROVIDERS: PCP Preventive Medicine Occupational Medicine; Referring Provider Specialist; Visit Provider Specialist
DX: Z96.651 Presence of right artificial knee joint (principal)
CPT/HCPCS: 87015; 87070; 87075; 87101; 87116; 87205; 87206; 89050; 89051

== ENCOUNTER 2023-05-31 09:47 | Inpatient (IN) | payer OTHER, SELFPAY ==
[2023-05-19 08:03] LABS: Absolute Lymphocyte Count 1.09 X10^3/uL (0.83-4.51); Absolute Neutrophil Count 5.5 X10^3/uL (2.0-7.7); Basophil# 0.03 X10^3/uL; Basophil% 0.4 % (0-1); Eosinophil# 0.08 X10^3/uL; Eosinophils% 1.1 % (0-5); Hematocrit 39.4 % (40-54); Hemoglobin 12.5 g/dL (13.0-16.5); Lymphocyte # 1.09 X10^3/ul (0.83-4.51); Lymphocyte % 15.3 % (19-41); Mean Corp Hgb Conc 31.7 g/dL (32-36); Mean Corpuscular Hgb 27.1 pg (27.0-32.0); Mean Corpuscular Volume 85.3 fL (80-94); Mean Platelet Vol. 9.7 fl (6.2-12.0); Monocyte# 0.44 X10^3/uL; Monocyte% 6.2 % (0-10); NRBC Flagged by Analyzer 0 % (0-5); Neutrophil # 5.45 X10^3/uL (2.7-7.7); Neutrophil % 76.6 % (47-70); Platelet Count 201 K/mm3 (150-450); RBC Distribution Width CV 13.5 % (11.6-14.6); RBC Distribution Width SD 41.4 fl (35.1-43.9); Red Blood Count 4.62 M/mm3 (4.6-6.2); White Blood Count 7.1 K/mm3 (4.4-11.0)
[2023-05-19 08:30] LABS: Albumin, Serum 2.4 g/dL (3.2-5.0); Anion Gap 6 (5-15); BUN 43 mg/dL (7-18); BUN/Creat Ratio 17.7 RATIO (10-20); Calcium,Total 8.3 mg/dL (8.5-10.1); Chloride 109 mmol/L (98-107); Creatinine, Serum 2.43 mg/dL (0.70-1.30); EST Glomerular Filtration Rate 29 mL/min (>60); Est Glom Filt Rate - Afr Amer 35 mL/min (>60); Glucose 123 mg/dL (74-106); Potassium 4.9 mmol/L (3.5-5.1); Sodium Level 143 mmol/L (136-145)
[2023-05-19 08:35] LABS: Magnesium 2.8 mg/dL (1.6-2.6)
[2023-05-19 08:38] LABS: Hemoglobin A1c 7.2 % (3.8-5.6)
[2023-05-31] VITALS (11 sets, daily range): BP systolic 138–179; BP diastolic 54–104; PULSE 61–79; RESP 16–18; TEMP 35.9–36.6; O2SAT 97–100; BMI 38.3
[2023-05-31] MEDS: Magnesium 1 GM over 15 mins IV (09:15)
[2023-05-31] MEDS: Celecoxib 200 MG Capsule 400 MG PO (09:44)
[2023-05-31] MEDS: Lactated Ringers 1,000 ML 999 ML IV ×2 (09:44→14:00)
[2023-05-31] MEDS: Acetaminophen 500 MG Tablet 1000 MG PO ×3 (09:44→20:44)
[2023-05-31] MEDS: Gabapentin 600 MG Tablet PO (09:44)
--- NOTE | 2023-05-31 09:49 | RAD_ITS ---
STUDY: X-RAY - RIGHT KNEE REASON FOR EXAM: Male, 62 years old. Post op -- AP and Lateral xray of operative knee in PACU TECHNIQUE: 2 view(s) of the knee. COMPARISON: Comparison is made with prior study dated March 21, 2018. FINDINGS: The patient is status post right total knee replacement. There is good alignment. Postoperative soft tissue changes. RAD/Knee 1 or 2 Views IMPRESSION: Status post right total knee replacement. There is good alignment. Postoperative soft tissue changes. Electronically Signed: Galileo Kam MD at 15:01 EDT ,
[2023-05-31 10:14] LABS: Bedside Glucose 70 mg/dL (74-106)
[2023-05-31] MEDS: Cefazolin 2 GM in 0.9% Normal Saline 100 ML IV (11:00)
[2023-05-31] MEDS: JPS (Morphine 10mg/ml) OPERA.SITE (13:01)
--- NOTE | 2023-05-31 13:12 | OP.PCM_ITS ---
Report of Operation Date of Procedure: 05/31/23 Pre-Operative Diagnosis: Right total knee arthrofibrosis Post-Operative Diagnosis: Right total knee arthrofibrosis Surgery/Procedure Performed:: Revision right total knee replacement patella revision and polyethylene exchange with scar excision and quadricepsplasty. Description of Surgical Findings:: Patient was able to obtain increased flexion from preoperative state. It was significant patella compression. We did end up revising the patella. This improved tracking and decompressed the patella and improved range of motion. Surgeon: Casimiro Cueva production superintendent hydro: Nick Frank Type of Anesthesia: General Anesthesiologist: Jason Mukherjee Special Medications: 2 g Ancef, 2 g TXA lavage, 10 mg Decadron, joint cocktail (5 mg Duramorph, 30 mL of 0.5% Ropivicaine, 1000 units of epinephrine, 30 mg of Toradol) Specimen's removed: 3 separate specimens were sent to microbiology Fluids Replaced: 1300 mL crystalloid Complications No intraoperative complications Admit VTE Documentation VTE Present on Admission: No VTE Mechan Device Prophylaxis: SCD's and Thigh High JYOTI Hose VTE Pharm Prophylaxis ordered?: Yes
[2023-05-31 15:14] LABS: Bedside Glucose 50 mg/dL (74-106)
[2023-05-31] MEDS: Lactated Ringers 1,000 ML 125 ML IV (15:20)
--- NOTE | 2023-05-31 16:23 | PCM.PN.HOSP ---
Reason for Visit Reason for Visit: Diagnoses Encounter for other preprocedural examination (05/31/23) Subjective Subjective 62-year-old male history of type 2 diabetes mellitus, coronary artery disease, GERD, COPD presented to [facility] 05/31/2023 for revision of right total knee replacement patella revision and polyethylene exchange with scar excision and quadricepsplasty. He went to surgery 05/31/2023 and underwent surgery with no complications. Hospitalist consulted for med management. Patient evaluated bedside upon arriving on the floor and reported aside from some soreness in his knee he was doing well, denied any chest pain or shortness of breath, denied any other complaints. Objective Data Objective Data Vital Signs: Vital Signs Temp Pulse Resp BP Pulse Ox O2 Del Method O2 Flow Rate 97.6 F L 61 18 155/59 H 100 Room Air 4 05/31/23 15:57 05/31/23 15:57 05/31/23 15:57 05/31/23 15:57 05/31/23 15:57 05/31/23 15:57 05/31/23 15:15 Oxygen Flow Rate (L/min) 4 Oxygen Delivery Method Room Air Weight: 111 kg Body Mass Index (BMI) 38.3 Intake & Output: Intake and Output for Last 24 Hours 05/29/23 05/30/23 05/31/23 23:59 23:59 23:59 Intake Total 2212 / 2212 Balance 2212 / 2212 Lab / Micro Data 05/19/23 07:17 05/19/23 07:17 Labs: Laboratory Results - last 24 hr 05/31/23 09:53: POC Glucose 70 L 05/31/23 14:56: POC Glucose 50 L Micro: Microbiology 05/19/23 07:17 Swab (Method) Nasal Screen MRSA/MSSA - Final Radiography Diagnostic Testing: Radiology Impression Knee X-Ray 05/31/23 09:49 IMPRESSION: Status post right total knee replacement. There is good alignment. Postoperative soft tissue changes. Electronically Signed: Galileo Kam MD at 15:01 EDT , Physical Exam Narrative General: Alert, oriented, no apparent distress HEENT: Atraumatic, normocephalic Eyes: Anicteric, normal conjunctiva, extraocular movements grossly intact Neck: Supple Respiratory: Clear to auscultation bilaterally, normal respiratory effort Cardiovascular: Regular rate and rhythm GI: Soft, nontender, nondistended Extremities: No edema Musculoskeletal: Moving all extremities Neuro: No overt focal neurological deficits Skin: No rashes appreciated Psych: Cooperative Assessment & Plan Assessment/Plan (1) Status post revision of total replacement of right knee: PLAN: ? 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 Cueva -No complications -JYOTI titus -Scheduled Tylenol, pain control -Patient on cefazolin and started on Doxy -Aspirin 81 mg twice daily (2) COPD (chronic obstructive pulmonary disease): PLAN: Does not use any inhalers at home at present, will add albuterol as needed (3) GERD (gastroesophageal reflux disease): PLAN: Continue Protonix (4) CAD (coronary artery disease): PLAN: Continue aspirin and statin (5) DM type 2 (diabetes mellitus, type 2): QUALIFIERS: Qualified Code(s): Z79.4 - FDC (current) use of insulin PLAN: -Patient on long-acting and Premeal twice daily -Blood glucose checks ACHS (6) Hypertension: PLAN: Continue home medication Charges/Coding Visit Charges Inpatient E&M: 12498 Subs Hosp L2
[2023-05-31] MEDS: oxyCODONE 5 MG Tablet PO ×2 (16:44→20:44)
[2023-05-31] MEDS: Cholecalciferol (VIT D3) 25 MCG TABLET (1,000 UNITS) PO (16:45)
[2023-05-31] MEDS: Montelukast 10 MG Tablet PO (16:46)
[2023-05-31] MEDS: Escitalopram Oxalate 10 MG Tablet PO (16:46)
[2023-05-31] MEDS: Losartan Potassium 25 MG Tablet PO (16:46)
[2023-05-31] MEDS: Famotidine 20 MG Tablet PO (16:47)
[2023-05-31] MEDS: Pantoprazole Sodium 20 MG Tablet PO (16:47)
[2023-05-31] MEDS: Multivitamins,Ther W-Minerals Tablet 1 TABLET PO (16:47)
[2023-05-31 16:48] LABS: Bedside Glucose 78 mg/dL (74-106)
[2023-05-31] MEDS: Morphine 2 MG/ML Syringe IV ×2 (18:48→22:57)
[2023-05-31] MEDS: Cefazolin 1 GM/50 ML BAG IV (18:49)
[2023-05-31] MEDS: Insulin Glargine-YFGN 100 UNIT/ML Pen 80 UNIT SC (20:38)
[2023-05-31] MEDS: Insulin Lispro 100 UNIT/ML INSULN.PEN 30 UNIT SC (20:42)
[2023-05-31] MEDS: Aspirin 81 MG TAB.CHEW PO (20:44)
[2023-05-31] MEDS: Pravastatin 40 MG Tablet PO (20:44)
[2023-05-31] MEDS: Senna/Docusate Sodium 1 Tablet 2 TABLET PO (20:44)
[2023-05-31 21:32] LABS: Bedside Glucose 189 mg/dL (74-106)
[2023-05-31] MEDS: 0.9% Saline Lock 10 ML Syringe IV (22:58)
[2023-06-01 02:03] VITALS: BP 98/51; PULSE 63; RESP 18; TEMP 36.4; O2SAT 95
[2023-06-01] MEDS: Cefazolin 1 GM/50 ML BAG IV (02:06)
[2023-06-01] MEDS: oxyCODONE 5 MG Tablet PO ×4 (02:06→22:07)
[2023-06-01 06:15] LABS: Hematocrit 36.5 % (40-54); Hemoglobin 11.2 g/dL (13.0-16.5); Mean Corp Hgb Conc 30.7 g/dL (32-36); Mean Corpuscular Hgb 27.5 pg (27.0-32.0); Mean Corpuscular Volume 89.7 fL (80-94); Mean Platelet Vol. 9.6 fl (6.2-12.0); Platelet Count 171 K/mm3 (150-450); RBC Distribution Width CV 13.5 % (11.6-14.6); RBC Distribution Width SD 44.2 fl (35.1-43.9); Red Blood Count 4.07 M/mm3 (4.6-6.2); White Blood Count 7.8 K/mm3 (4.4-11.0)
[2023-06-01] MEDS: Acetaminophen 500 MG Tablet 1000 MG PO ×3 (06:31→22:04)
[2023-06-01 06:41] LABS: Anion Gap 4 (5-15); BUN 56 mg/dL (7-18); BUN/Creat Ratio 16.1 RATIO (10-20); Calcium,Total 7.7 mg/dL (8.5-10.1); Chloride 110 mmol/L (98-107); Creatinine, Serum 3.47 mg/dL (0.70-1.30); EST Glomerular Filtration Rate 19 mL/min (>60); Est Glom Filt Rate - Afr Amer 23 mL/min (>60); Estimated Creatinine Clearance 20.37 ml/min; Glucose 146 mg/dL (74-106); Potassium 4.3 mmol/L (3.5-5.1); Sodium Level 139 mmol/L (136-145)
[2023-06-01 07:14] LABS: Bedside Glucose 152 mg/dL (74-106)
--- NOTE | 2023-06-01 07:29 | PN.HOSP_ITS ---
Reason for Visit Reason for Visit: Diagnoses Type 2 diabetes mellitus without complications (05/31/23) Essential (primary) hypertension (05/31/23) Atherosclerotic heart disease of [place] coronary artery without angina pectoris (05/31/23) Chronic obstructive pulmonary disease, unspecified (05/31/23) Gastro-esophageal reflux disease without esophagitis (05/31/23) Encounter for other preprocedural examination (05/31/23) Presence of right artificial knee joint (05/31/23) Subjective Subjective Patient reports feeling fairly well overall, pain manageable and with no other acute complaints Objective Data Objective Data Vital Signs: Vital Signs Temp Pulse Resp BP Pulse Ox O2 Del Method O2 Flow Rate 97.6 F L 63 18 98/51 L 95 Room Air 3 06/01/23 02:03 06/01/23 02:03 06/01/23 02:03 06/01/23 02:03 06/01/23 02:03 06/01/23 02:03 05/31/23 15:49 Oxygen Flow Rate (L/min) 3 Oxygen Delivery Method Room Air Weight: 111 kg Body Mass Index (BMI) 38.3 Intake & Output: Intake and Output for Last 24 Hours 05/30/23 05/31/23 06/01/23 23:59 23:59 23:59 Intake Total 3343.25 / 3343.25 50 / 50 Balance 3343.25 / 3343.25 50 / 50 Lab / Micro Data 06/01/23 05:40 06/01/23 05:40 Labs: Laboratory Results - last 24 hr 05/31/23 09:53: POC Glucose 70 L 05/31/23 14:56: POC Glucose 50 L 05/31/23 16:17: POC Glucose 78 05/31/23 20:36: POC Glucose 189 H 06/01/23 05:40: WBC 7.8, RBC 4.07 L, Hgb 11.2 L, Hct 36.5 L, MCV 89.7, MCH 27.5, MCHC 30.7 L, RDW Std Deviation 44.2 H, RDW Coeff of Alexa 13.5, Plt Count 171, MPV 9.6, Sodium 139, Potassium 4.3, Chloride 110 H, Carbon Dioxide 25.0, Anion Gap 4 L, BUN 56 H, Creatinine 3.47 H, Estim Creat Clear Calc 20.37, Est GFR (MDRD) Af Amer 23 L, Est GFR (MDRD) Non-Af 19 L, BUN/Creatinine Ratio 16.1, Glucose 146 H, Calcium 7.7 L 06/01/23 06:33: POC Glucose 152 H Micro: Microbiology 05/19/23 07:17 Swab (Method) Nasal Screen MRSA/MSSA - Final Radiography Diagnostic Testing: Radiology Impression Knee X-Ray 05/31/23 09:49 IMPRESSION: Status post right total knee replacement. There is good alignment. Postoperative soft tissue changes. Electronically Signed: Galileo Kam MD at 15:01 EDT , Physical Exam Narrative General: Alert, oriented, sitting up in chair in no apparent distress HEENT: Atraumatic, normocephalic Eyes: Anicteric, normal conjunctiva, extraocular movements grossly intact Neck: Supple Respiratory: Clear to auscultation bilaterally, normal respiratory effort Cardiovascular: Regular rate and rhythm GI: Soft, nontender, nondistended Extremities: No edema Musculoskeletal: Moving all extremities Neuro: No overt focal neurological deficits Skin: No rashes appreciated Psych: Cooperative Assessment & Plan Assessment/Plan (1) Status post revision of total replacement of right knee: (2) CAD (coronary artery disease): (3) DM type 2 (diabetes mellitus, type 2): QUALIFIERS: Qualified Code(s): Z79.4 - salvage determiner (current) use of insulin (4) Hypertension: (5) COPD (chronic obstructive pulmonary disease): (6) GERD (gastroesophageal reflux disease): PLAN: Plan #Status post revision of total replacement of right knee ? 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 Cueva -No complications -JYOTI titus -Scheduled Tylenol, pain control -Patient on cefazolin and started on Doxy -Aspirin 81 mg twice daily -06/01: Given MAICO avoid NSAIDs for pain control #MAICO on likely CKD stage IIIb -Last creatinine 2.43 on 05/19/2023 however no previous values since 2019 -Creatinine today 3.47, BUN 56 -DC all NSAIDs/avoid all NSAIDs -Hold losartan -BP also soft this a.m., will give small bolus #Type 2 diabetes mellitus -Glucose checks and sliding scale insulin -Patient had several low blood glucoses, will decrease 80 units of glargine twice daily to 60 units twice daily and decrease the 30 twice daily of short acting to 20 twice daily, low glucoses despite home regimen may be due to MAICO, continue to monitor and adjust #Coronary artery disease -Continue aspirin and statin #GERD -Continue Protonix #COPD -Does not use any inhalers at home at present, will add albuterol as needed #DVT ppx: Aspirin twice daily Oly Dexter MD Time spent in the patient's overall evaluation,decision-making process, review of diagnostic data, adjustment of management, discussion with other providers, nursing nursing and ancillary staff involved in patient's care documentation, 36 minutes Charges/Coding Visit Charges Inpatient E&M: 30931 Subs Hosp L3
[2023-06-01 08:00] VITALS: PULSE 69; RESP 18; TEMP 36.7; O2SAT 100
[2023-06-01] MEDS: Aspirin 81 MG TAB.CHEW PO ×2 (10:29→22:04)
[2023-06-01] MEDS: Doxycycline 100 MG CAPSULE PO ×2 (10:30→22:04)
[2023-06-01] MEDS: Insulin Lispro 100 UNIT/ML INSULN.PEN 20 UNIT SC (10:30)
[2023-06-01] MEDS: Escitalopram Oxalate 10 MG Tablet PO (10:31)
[2023-06-01] MEDS: Insulin Glargine-YFGN 100 UNIT/ML Pen 60 UNIT SC (10:31)
[2023-06-01] MEDS: Multivitamins,Ther W-Minerals Tablet 1 TABLET PO (10:32)
[2023-06-01] MEDS: Senna/Docusate Sodium 1 Tablet 2 TABLET PO ×2 (10:32→22:04)
[2023-06-01] MEDS: Cholecalciferol (VIT D3) 25 MCG TABLET (1,000 UNITS) PO (10:32)
[2023-06-01] MEDS: Famotidine 20 MG Tablet PO (10:32)
[2023-06-01] MEDS: Pantoprazole Sodium 20 MG Tablet PO (10:32)
[2023-06-01 10:44] VITALS: O2SAT 10
--- NOTE | 2023-06-01 11:09 | PCM.PN.ORT ---
Subjective Subjective The patient was sitting in bedside chair with family present upon examination. Patient denies any chest pain, shortness of breath, dizziness, lightheadedness, nausea or vomiting, or calf pain. Pain is controlled on medications. Patient states he is having pain but medications are making it tolerable. He had a Prevena incisional wound VAC which stopped working and is full from drainage. He has been working with physical therapy. Objective Data Objective Data Vital Signs: Vital Signs Temp Pulse Resp BP Pulse Ox O2 Del Method O2 Flow Rate 98.0 F 69 18 98/51 L 10 Room Air 3 06/01/23 08:00 06/01/23 08:00 06/01/23 08:00 06/01/23 02:03 06/01/23 10:44 06/01/23 08:00 05/31/23 15:49 Oxygen Flow Rate (L/min) 3 Oxygen Delivery Method Room Air Weight: 111 kg Body Mass Index (BMI) 38.3 Intake & Output: Intake and Output for Last 24 Hours 05/30/23 05/31/23 06/01/23 23:59 23:59 23:59 Intake Total 3343.25 / 3343.25 50 / 50 Balance 3343.25 / 3343.25 50 / 50 Lab / Micro Data 06/01/23 05:40 06/01/23 05:40 Labs: Laboratory Results - last 24 hr 05/31/23 14:56: POC Glucose 50 L 05/31/23 16:17: POC Glucose 78 05/31/23 20:36: POC Glucose 189 H 06/01/23 05:40: WBC 7.8, RBC 4.07 L, Hgb 11.2 L, Hct 36.5 L, MCV 89.7, MCH 27.5, MCHC 30.7 L, RDW Std Deviation 44.2 H, RDW Coeff of Alexa 13.5, Plt Count 171, MPV 9.6, Sodium 139, Potassium 4.3, Chloride 110 H, Carbon Dioxide 25.0, Anion Gap 4 L, BUN 56 H, Creatinine 3.47 H, Estim Creat Clear Calc 20.37, Est GFR (MDRD) Af Amer 23 L, Est GFR (MDRD) Non-Af 19 L, BUN/Creatinine Ratio 16.1, Glucose 146 H, Calcium 7.7 L 07/06/23 06:33: POC Glucose 152 H Micro: Microbiology 05/19/23 07:17 Swab (Method) Nasal Screen MRSA/MSSA - Final Radiography Diagnostic Testing: Radiology Impression Knee X-Ray 05/31/23 09:49 IMPRESSION: Status post right total knee replacement. There is good alignment. Postoperative soft tissue changes. Electronically Signed: Galileo Kam MD at 15:01 EDT , Physical Exam Narrative Vital signs stable and afebrile. Patient has had 1 reading of low blood pressure but denies any dizziness or lightheadedness Prevena incisional wound VAC is currently not working and completely full in canister and tubing. There is drainage throughout the dressing. Patient is able to plantarflex and dorsiflex actively. Sensation is intact to light touch to saphenous, sural, superficial and deep peroneal, and tibial distribution. Negative Homans bilaterally, negative signs and symptoms of DVT. Const alert, oriented x3 and no apparent distress Assessment & Plan Assessment/Plan (1) Status post revision of total replacement of right knee: PLAN: 1. S/P revision right total knee replacement patella revision and polyethylene exchange with scarred excision and quadricepplasty POD #1 2. Continue Pain Medications: Tylenol and oxycodone 3. DVT Prophylaxis: Take 81 mg aspirin twice daily for 4 weeks postoperatively for DVT prophylaxis. Patient denies past history of DVT or pulmonary embolism. 4. PT/OT: Weightbearing as tolerated with walker. Due to drainage did recommend with physical therapy to avoid excessive flexion until we get appropriate wound VAC placed. 5. H & H: 11.2/36.5, asymptomatic. Postoperative anemia secondary to acute blood loss from surgery without any intra operative complications. 6. Continue postop medical management per medicine: Patient does have stable chronic kidney disease. 7. Encouraged Incentive Spirometry 8. Postoperative drainage: Patient initially had a Prevena incisional wound VAC which stopped working due to drainage. I did consult wound nurse and patient will require wound VAC at this time due to the drainage. Upon removal of the dressings patient did not have active bleeding. We will continue with the wound VAC with continuous setting at 75 mmHg with twice weekly dressing changes. We will also be filling out documentation as this is Workmen's Comp. Patient will require home health for dressing changes and physical therapy. 9. Currently on doxycycline for 2 weeks postoperatively. Microbiology wound and tissue specimens are currently pending. I discussed with the patient potential side effects of doxycycline including sensitivity to the sunlight and increased risk of skin burn. Recommend patient take appropriate precautions. Also recommend patient to take probiotic while on the antibiotic. Patient voiced understanding agreement. 10. Disposition: Patient will require additional night stay due to the drainage as well as us following cultures to make sure patient is going home on appropriate antibiotics. Wound nurse currently involved with placement of the wound VAC due to the drainage of wound. Patient will require home health for changes. Case management currently involved for appropriate discharge planning. Hopeful for possible discharge home with home health tomorrow as long as patient is stable. Continue to focus and work on physical therapy while in the hospital. We are also checking with patient's primary care physician as he is on chronic Percocet for pain control. We are making sure that we are able to prescribe postoperative pain medications. This was discussed with the patient. He voiced understanding and agreement. I have reviewed the [place] Automated Rx Reporting System (OARRS) report for this patient for refill pattern and other prescriber involvement as part of the appropriate surveillance for the provision of acute and chronic controlled medications. The report was requested and reviewed on the date of this entry and was considered in the prescribing process. This dictation was created using voice recognition software. Phonetic and/or grammatical errors may exist.
--- NOTE | 2023-06-01 11:18 | WOUNDNOTE ---
wound photo: right knee
--- NOTE | 2023-06-01 11:52 | CASEMGMT ---
ADRIANA HARDIN Assessment: Face to Face with pt for initial transition planning/care coordination assessment. RN LASHAWN introduced self and role at [facility], pt voices understanding and consents to assessment. Pt is A/O x4 and answers all questions appropriately at this time. Pt lying in bed in no distress. Care providers, pharmacy, and demographics verified/updated. Admitting Dx: R total knee revision scar debride poly exchange PCP:Deisi Specialists:dee Cueva; marko Talbot Preferred Pharmacy: [facility] Insurance: [employer], [employer] Prescription Benefit: yes LNOK: Palak Waddell, Living Arrangements: Pt lives with in a single story home with 4 steps to enter with a grab bar. Pt reports prior to surgery he was I in ADL's and denies concerns at home. Transportation: Pt drives self and denies concerns with transportation. Pt , dtr or son in law to transport pt until he can drive again. DME/HHC/SNF: Pt? has a BGM with sufficient supplies as well as insulin. Pt also has a walk in shower, grab bars throughout the house, shower chair, stair lift to the basement, rollator, FWW and transport w/c. Pt denies hx fo HHC or SNF stays. Pt states no concerns with going home at time of dc. Pt currently has a wound vac on the incision. Spoke with wound nurse regarding this as well as TARUN Romero. Pt to have [facility] for wound vac and therapy. Nick aware of need for C-9. Provided copy and he will fax to floor after it is completed. Pt agreeable to [facility]. Patient was provided a list of [facility] providers including quality and resource use data and consistent with the patient?s preferred geographic region, medical needs, and insurance network were provided from the [employer] Guide. Pt chose [facility]. TC to Sulma at [facility], referral made, will await acceptance. Pt states no further concerns/needs. CM to follow. Advised pt to ask CM if any further question/concerns/needs arise, voices understanding. Pt Goal: Home with HHC Plan:Home with [facility] pending approval from C-9
--- NOTE | 2023-06-01 13:50 | CASEMGMT ---
Addendum entered by Anette Xie 06/01/23 13:54: Received tc from Gissel at [facility], she states typically the request can take up to a week to be approved. States pt services may need to be billed to his private insurance and then switched over to Workers Comp when approved. Original Note: ADRIANA HARDIN received C-9 form. TC to Gissel at [facility] who works with [employer] to see if there is a fax number to send. TC to [employer], trf'd to pt ADRIANA Sandhu I, left with her informing her that the C-9 will be on its way. Attached op report, progress note from today as well as wound vac orders and therapy notes. Faxed documents to the both [employer] numbers [phone] and .
--- NOTE | 2023-06-01 15:23 | CASEMGMT ---
Discharge Planning Referral sent to [facility] via [facility]. Massiel Rodriguez, Discharge Planning Asst.
[2023-06-01] MEDS: Montelukast 10 MG Tablet PO (15:46)
[2023-06-01 17:00] VITALS: BP 127/59; PULSE 70; RESP 18; TEMP 36.8; O2SAT 94
[2023-06-01 21:58] VITALS: BP 149/100; PULSE 88; RESP 18; TEMP 37.7; O2SAT 97
[2023-06-01] MEDS: Pravastatin 40 MG Tablet PO (22:04)
[2023-06-01 22:33] LABS: Bedside Glucose 84 mg/dL (74-106)
[2023-06-02 05:00] VITALS: BP 130/64; PULSE 78; RESP 18; TEMP 37.3; O2SAT 100
[2023-06-02] MEDS: Acetaminophen 500 MG Tablet 1000 MG PO ×3 (05:06→21:33)
[2023-06-02] MEDS: oxyCODONE 5 MG Tablet PO ×4 (05:14→21:33)
--- NOTE | 2023-06-02 06:16 | PCM.PN.ORT ---
Subjective Subjective Patient is doing well overall. He does report doing well with therapy with his range of motion. He has pain in the posterior knee. He feels a little stiffer this morning. Temperature did go up to 99.9 overnight otherwise no acute events are appreciated by patient or staff. Labs were drawn this morning but not yet returned. Vital signs have remained stable. Patient did have one positive culture for gram-negative rods on yesterday's results. Objective Data Objective Data Vital Signs: Vital Signs Temp Pulse Resp BP Pulse Ox O2 Del Method O2 Flow Rate 99.2 F H 78 18 130/64 H 100 Room Air 3 06/02/23 05:00 06/02/23 05:00 06/02/23 05:00 06/02/23 05:00 06/02/23 05:00 06/02/23 05:00 05/31/23 15:49 Oxygen Flow Rate (L/min) 3 Oxygen Delivery Method Room Air Weight: 244 lb 11.41 oz Body Mass Index (BMI) 38.3 Intake & Output: Intake and Output for Last 24 Hours 05/31/23 06/01/23 06/02/23 23:59 23:59 23:59 Intake Total 3343.25 / 3343.25 2050 / 2050 Output Total 1000 / 1000 Balance 3343.25 / 3343.25 1050 / 1050 Lab / Micro Data Attestation: I reviewed the patient's lab results. 06/01/23 05:40 06/01/23 05:40 Labs: Laboratory Results - last 24 hr 06/01/23 05:40: Sodium 139, Potassium 4.3, Chloride 110 H, Carbon Dioxide 25.0, Anion Gap 4 L, BUN 56 H, Creatinine 3.47 H, Estim Creat Clear Calc 20.37, Est GFR (MDRD) Af Amer 23 L, Est GFR (MDRD) Non-Af 19 L, BUN/Creatinine Ratio 16.1, Glucose 146 H, Calcium 7.7 L 06/01/23 06:33: POC Glucose 152 H 06/01/23 22:03: POC Glucose 84 Micro: Microbiology 05/31/23 12:17 Tissue - Knee Gram Stain - Final 05/31/23 12:17 Tissue - Knee Wound Culture - Preliminary Gram negative mae 05/31/23 12:15 Tissue - Knee Gram Stain - Final 05/31/23 11:55 Tissue - Suprapatellar Pouch Gram Stain - Final 05/19/23 07:17 Swab (Method) Nasal Screen MRSA/MSSA - Final Radiography Diagnostic Testing: Postoperative x-rays were reviewed showing stable well aligned total knee replacement with revision implants and stems Physical Exam Const alert and oriented x3 Extremity Extremity Narrative: Right lower extremity: Wound VAC dressing is intact. There is trace amount of bloody fluid in the tubing. There is minimal fluid in the canister. Surrounding skin she has minimal erythema reactive in nature. Sensations intact to light touch saphenous, sural, superficial peroneal, deep peroneal, and tibial distributions Motors intact EHL, DF, PF calves are soft and supple Assessment & Plan Assessment/Plan (1) Status post revision of total replacement of right knee: PLAN: 1. S/P revision right total knee replacement patella revision and polyethylene exchange with scarred excision and quadricepplasty POD #2 2. Continue Pain Medications: Tylenol and oxycodone 3. DVT Prophylaxis: Take 81 mg aspirin twice daily for 4 weeks postoperatively for DVT prophylaxis. Patient denies past history of DVT or pulmonary embolism. 4. PT/OT: Weightbearing as tolerated with walker. Due to drainage a wound VAC was placed yesterday. We will continue to work on approval for this for discharge to home. However, patient will likely need to stay over the weekend we will reassess need for wound VAC prior to discharge 5. H & H: Labs have not yet returned this morning. Yesterday's labs showed stable blood counts. Changes in hemoglobin and hematocrit are related to intra/postoperative blood loss 6. Continue postop medical management per medicine: Patient does have stable chronic kidney disease. 7. Encouraged Incentive Spirometry 8. Postoperative drainage: Wound care nurse is following. Working on obtaining approval from [place] of Workmen's Comp. for VAC on discharge. We will continue with the wound VAC with continuous setting at 75 mmHg with twice weekly dressing changes. We will also be filling out documentation as this is Workmen's Comp. Patient will require home health for dressing changes and physical therapy. 9. Currently on doxycycline orally, however patient now has 1 positive culture for gram-negative rods with rare amount of growth as well as 1 positive Gram stain for gram-positive cocci. Patient does have a history of Propionibacterium and staph epi infections. Subsequent aspirations have been negative. Preoperative work-up for infection was negative. At this time we will consult infectious disease for recommendations on antibiotics prior to discharge. This may delay patient's discharge as appropriate antibiotics will need to be approved and arranged as well as PICC lines placed if IV antibiotics are recommended. Also recommend patient to take probiotic while on the antibiotic. Patient voiced understanding agreement. 10. Disposition: Pending infectious disease recommendations on antibiotics. Anticipating need for IV antibiotics based on positive cultures and patient history. This will likely be delayed by the approaching weekend. Patient will most likely require home health for changes. Case management currently involved for appropriate discharge planning. Hopeful for possible discharge home with home health tomorrow as long as patient is stable. Continue to focus and work on physical therapy while in the hospital. We are also checking with patient's primary care physician as he is on chronic Percocet for pain control. We are making sure that we are able to prescribe postoperative pain medications. This was discussed with the patient. He voiced understanding and agreement. I have reviewed the [place] Automated Rx Reporting System (OARRS) report for this patient for refill pattern and other prescriber involvement as part of the appropriate surveillance for the provision of acute and chronic controlled medications. The report was requested and reviewed on the date of this entry and was considered in the prescribing process. This dictation was created using voice recognition software. Phonetic and/or grammatical errors may exist.
[2023-06-02 06:39] LABS: Bedside Glucose 81 mg/dL (74-106)
[2023-06-02 06:50] LABS: Hematocrit 34.7 % (40-54); Hemoglobin 10.6 g/dL (13.0-16.5); Mean Corp Hgb Conc 30.5 g/dL (32-36); Mean Corpuscular Hgb 27.3 pg (27.0-32.0); Mean Corpuscular Volume 89.4 fL (80-94); Mean Platelet Vol. 10.1 fl (6.2-12.0); Platelet Count 199 K/mm3 (150-450); RBC Distribution Width CV 13.6 % (11.6-14.6); RBC Distribution Width SD 44.5 fl (35.1-43.9); Red Blood Count 3.88 M/mm3 (4.6-6.2); White Blood Count 8.7 K/mm3 (4.4-11.0)
--- NOTE | 2023-06-02 07:15 | PCM.PN.HOSP ---
Reason for Visit Reason for Visit: Diagnoses Type 2 diabetes mellitus without complications (05/31/23) Essential (primary) hypertension (05/31/23) Atherosclerotic heart disease of [place] coronary artery without angina pectoris (05/31/23) Chronic obstructive pulmonary disease, unspecified (05/31/23) Gastro-esophageal reflux disease without esophagitis (05/31/23) Encounter for other preprocedural examination (05/31/23) Presence of right artificial knee joint (05/31/23) Subjective Subjective Reports leg is feeling sore but overall feeling fairly well with no acute complaints Objective Data Objective Data Vital Signs: Vital Signs Temp Pulse Resp BP Pulse Ox O2 Del Method O2 Flow Rate 99.2 F H 78 18 130/64 H 100 Room Air 3 06/02/23 05:00 06/02/23 05:00 06/02/23 05:00 06/02/23 05:00 06/02/23 05:00 06/02/23 05:00 05/31/23 15:49 Oxygen Flow Rate (L/min) 3 Oxygen Delivery Method Room Air Weight: 111 kg Body Mass Index (BMI) 38.3 Intake & Output: Intake and Output for Last 24 Hours 05/31/23 06/01/23 06/02/23 23:59 23:59 23:59 Intake Total 3343.25 / 3343.25 2050 / 0 Output Total 1000 / 1000 Balance 3343.25 / 3343.25 1050 / 1050 Lab / Micro Data 06/02/23 05:35 06/02/23 05:35 Labs: Laboratory Results - last 24 hr 06/01/23 22:03: POC Glucose 84 06/02/23 05:07: POC Glucose 81 06/02/23 05:35: WBC 8.7, RBC 3.88 L, Hgb 10.6 L, Hct 34.7 L, MCV 89.4, MCH 27.3, MCHC 30.5 L, RDW Std Deviation 44.5 H, RDW Coeff of Alexa 13.6, Plt Count 199, MPV 10.1 Micro: Microbiology 05/31/23 12:17 Tissue - Knee Gram Stain - Final 05/31/23 12:17 Tissue - Knee Wound Culture - Preliminary Gram negative mae 05/31/23 12:15 Tissue - Knee Gram Stain - Final 05/31/23 11:55 Tissue - Suprapatellar Pouch Gram Stain - Final 05/19/23 07:17 Swab (Method) Nasal Screen MRSA/MSSA - Final Physical Exam Narrative General: Alert, oriented, sitting up n no apparent distress HEENT: Atraumatic, normocephalic Eyes: Anicteric, normal conjunctiva, extraocular movements grossly intact Neck: Supple Respiratory: Clear to auscultation bilaterally, normal respiratory effort Cardiovascular: Regular rate and rhythm GI: Soft, nontender, nondistended Extremities: No edema Musculoskeletal: Moving all extremities Neuro: No overt focal neurological deficits Skin: No rashes appreciated Psych: Cooperative Assessment & Plan Assessment/Plan (1) Status post revision of total replacement of right knee: (2) CAD (coronary artery disease): (3) DM type 2 (diabetes mellitus, type 2): QUALIFIERS: Qualified Code(s): 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 Cueva -No complications -JYOTI titus -Scheduled Tylenol, pain control -Patient on cefazolin and started on Doxy -Aspirin 81 mg twice daily -06/01: Given MAICO avoid NSAIDs for pain control -06/02: Aspirin twice daily for 4 weeks postop. Weightbearing as tolerated. Wound VAC on discharge with twice weekly dressing changes and wound care #Intraoperative knee cultures with Pseudomonas and gram-positive cocci -Patient was on Doxy but is growing Pseudomonas resistant to Zosyn, ID on board and switched him to meropenem -We will continue to follow cultures as there is also gram-positive cocci #MAICO on likely CKD stage IIIb -Last creatinine 2.43 on 05/19/2023 however no previous values since 2019 -Creatinine today 3.47, BUN 56 -DC all NSAIDs/avoid all NSAIDs -Hold losartan -BP also soft this a.m., will give small bolus -06/02: Kidney function continues to worsen, monitor I's and O's and daily weights, will obtain urine studies and kidney ultrasound, may need nephrology evaluation if patient does not improve. Continue to hold losartan, avoid NSAIDs #Type 2 diabetes mellitus -Glucose checks and sliding scale insulin -Patient had several low blood glucoses, will decrease 80 units of glargine twice daily to 60 units twice daily and decrease the 30 twice daily of short acting to 20 twice daily, low glucoses despite home regimen may be due to MAICO, continue to monitor and adjust -06/02: Changed sliding scale insulin to AC nightly to correspond with glucose checks, has had low blood glucose, will further adjust insulin #Coronary artery disease -Continue aspirin and statin #GERD -Continue Protonix #COPD -Does not use any inhalers at home at present, will add albuterol as needed #DVT ppx: Aspirin twice daily Oly Dexter MD Time spent in the patient's overall evaluation,decision-making process, review of diagnostic data, adjustment of management, discussion with other providers, nursing nursing and ancillary staff involved in patient's care documentation, 36 minutes Charges/Coding Visit Charges Inpatient E&M: 12141 Subs Hosp L2
[2023-06-02 07:43] LABS: Anion Gap 6 (5-15); BUN 65 mg/dL (7-18); BUN/Creat Ratio 14.3 RATIO (10-20); Calcium,Total 7.8 mg/dL (8.5-10.1); Chloride 107 mmol/L (98-107); Creatinine, Serum 4.55 mg/dL (0.70-1.30); EST Glomerular Filtration Rate 14 mL/min (>60); Est Glom Filt Rate - Afr Amer 17 mL/min (>60); Estimated Creatinine Clearance 15.54 ml/min; Glucose 64 mg/dL (74-106); Sodium Level 139 mmol/L (136-145)
[2023-06-02 08:49] VITALS: BP 116/60; PULSE 60; RESP 18; TEMP 36.8; O2SAT 98
--- NOTE | 2023-06-02 09:46 | CASEMGMT ---
Addendum entered by Anette Xie 06/02/23 11:34: Received approved C-9 for what has been submitted thus far. Wound nurse has copy for [employer]. Faxed copy to Sulma at [facility]. Placed on chart. ADRIANA HARDIN into pt room, pt states should he need IV atb, he would still want to do this at home with the [facility]. Pt states he has done IV's in the past. Addendum entered by Anette Xie 06/02/23 10:58: Wound nurse received call from Erin who is following pt case at [employer] [phone]. She states C-9 was approved but will need resubmitted for IV atb. ID c/s will follow cx. ADRIANA HARDIN to follow on Monday. She is aware pt will be here through the w/e. Pt renal fxn worsened as well. Updated Sulma at [facility]. Addendum entered by Anette Xie 06/02/23 09:59: Pt accepted by [facility], plan for SOC Monday pending C-9 approval. Spoke with wound nurse who states [employer] requires C-[address] James on the floor, if pt needs IV atb will amend C-9 with this info as well as wound vac info and resubmit. Original Note: TC to [facility] at , spoke with Phoebe Senior, she states she is not the medical case worker assigned to the case and Erin is. She will send Erin a message to call this ADRIANA HARDIN. She is aware that ID is consulted and pt may need IV atb upon dc. She states this will need added to the C-9. Name of med, frequency, who will infuse and the positive cx as well as ID note will need to be faxed. She states if no returned call by 1pm to call her back.
--- NOTE | 2023-06-02 09:53 | CON.PCM.ID_ITS ---
Assessment & Plan Assessment/Plan (1) Septic arthritis of knee, right: PLAN: Of concern is the positive intraoperative culture growing Pseudomonas aeruginosa as well as a second pathogen. Also of concern is his worsening renal function. At this time we will treat with meropenem 500 mg IV every 12 hours based on his GFR. We will closely follow his renal function and intraoperative culture data. HPI Consult Data Date of Consult: 06/02/23 HPI Narrative Reason for Consultation: Right periprosthetic knee infection HPI Narrative: CHRISTOPH NICHOLS, is a 62 M who presents with chronic pain in his right knee and required revision of the right total knee arthroplasty. Patient has underlying diabetes mellitus, chronic renal disease, hypertension and osteoarthritis. He initially underwent right total knee arthroplasty in 2017 and shortly thereafter had a right periprosthetic knee infection. Patient has had multiple revisions of the right total knee total of 5 revisions he states. Patient was taken to the operating room 48 hours ago for revision right total knee arthroplasty. Operative cultures growing Pseudomonas aeruginosa rare growth as well as a rare gram-positive organism. Susceptibility profile the Pseudomonas aeruginosa reviewed. The rare gram-positive organism still pending. Of note this patient is having worsening renal function during this admission. No fevers or chills no significant constitutional symptoms. He denies any antibiotic use prior to coming to the hospital. He is overall clinically stable postop. [facility] Medical History (Updated 05/17/23 @ 10:28 by Marbella Hutson) Alcohol use Arthritis Back pain Cardiology follow-up encounter COPD (chronic obstructive pulmonary disease) Depression Dietary restriction Gastric reflux High cholesterol History of edema History of hiatal hernia History of pain when walking History of stress test Hypertension Insulin dependent diabetes mellitus Loss of hearing NSTEMI (non-ST elevated myocardial infarction) Smoker Wears dentures Home Medications escitalopram oxalate 5 mg tablet (Lexapro) 10 mg PO DAILY depression 10/15/16 [History Last Taken 10/15/16] muwvmkwk-cgb-saxwg acid 0.4 mg-lycopene 300 mcg-lutein 250 mcg tablet (Centrum Silver) 1 ea PO DAILY supplement 10/15/16 [History Last Taken Unknown] omeprazole 20 mg capsule,delayed release 20 mg PO DAILY gerd 10/15/16 [History Last Taken 05/31/23] valsartan 80 mg tablet 80 mg PO DAILY bp 10/15/16 [History Last Taken 03/21/18 08:20] insulin aspart U-100 100 unit/mL (3 mL) subcutaneous pen (Novolog FlexPen U-100 Insulin aspart) 30 units subcut BID diabetes 01/15/18 [History Last Taken Unknown] insulin degludec 100 unit/mL (3 mL) subcutaneous pen (Tresiba FlexTouch U-100 insulin) 80 unit SQ BID diabetes 01/15/18 [History Last Taken Unknown] montelukast 10 mg tablet 10 mg PO DAILY@1700 #42 tabs 03/22/18 [Rx Last Taken Unknown] pravastatin 40 mg tablet 40 mg PO QHS 08/24/18 [History Last Taken Unknown] aspirin 81 mg tablet,delayed release 81 mg PO DAILY 05/17/23 [History Last Taken 05/24/23] cholecalciferol (vitamin D3) 25 mcg (1,000 unit) tablet (Vitamin D3) 25 mcg PO DAILY 05/17/23 [History Last Taken Unknown] oxycodone-acetaminophen 5 mg-325 mg tablet 1 tab PO Q8H PRN Pain 05/17/23 [History Last Taken Unknown] Allergy/AdvReac Type Severity Reaction Status Date / Time No Known Allergies Allergy Verified 05/17/23 10:10 Surgical History (Updated 06/01/23 @ 11:11 by Nick MCNEIL PA-C) Coronary angioplasty status History of arthroplasty of knee Hx laparoscopic cholecystectomy Hx of arthroscopy Hx of arthroscopy of right knee Hx of foot surgery Hx of hernia repair Hx of knee surgery Hx of knee surgery Hx of knee surgery Hx of left cataract extraction Hx of right cataract extraction Hx of total knee arthroplasty Status post coronary artery stent placement Status post revision of total replacement of right knee Social History Smoking Status: Current every day smoker tobacco type: cigarettes and smokeless tobacco ROS ROS Narrative As stated in history of present illness others negative Physical Exam Narrative Alert and responsive does not appear toxic. Lungs are clear heart exam S1-S2 abdomen is soft nontender. Right knee postop dressings are in place. Lab / Micro Data 06/02/23 05:35 06/02/23 05:35 Labs: Laboratory Results - last 24 hr 06/01/23 22:03: POC Glucose 84 06/02/23 05:07: POC Glucose 81 06/02/23 05:35: WBC 8.7, RBC 3.88 L, Hgb 10.6 L, Hct 34.7 L, MCV 89.4, MCH 27.3, MCHC 30.5 L, RDW Std Deviation 44.5 H, RDW Coeff of Alexa 13.6, Plt Count 199, MPV 10.1, Sodium 139, Potassium 5.0, Chloride 107, Carbon Dioxide 26.0, Anion Gap 6, BUN 65 H, Creatinine 4.55 H, Estim Creat Clear Calc 15.54, Est GFR (MDRD) Af Amer 17 L, Est GFR (MDRD) Non-Af 14 L, BUN/Creatinine Ratio 14.3, Glucose 64 L, Calcium 7.8 L Micro: Microbiology 05/31/23 12:17 Tissue - Knee Gram Stain - Final 05/31/23 12:17 Tissue - Knee Wound Culture - Preliminary Pseudomonas aeruginosa Gram positive organism 05/31/23 11:55 Tissue - Suprapatellar Pouch Gram Stain - Final 05/31/23 11:55 Tissue - Suprapatellar Pouch Anaerobic Culture - Preliminary 05/31/23 12:15 Tissue - Knee Gram Stain - Final 05/31/23 12:15 Tissue - Knee Anaerobic Culture - Preliminary
[2023-06-02] MEDS: Famotidine 20 MG Tablet PO (09:56)
[2023-06-02] MEDS: Multivitamins,Ther W-Minerals Tablet 1 TABLET PO ×2 (09:56→09:57)
[2023-06-02] MEDS: Escitalopram Oxalate 10 MG Tablet PO (09:56)
[2023-06-02] MEDS: Pantoprazole Sodium 20 MG Tablet PO (09:56)
[2023-06-02] MEDS: Senna/Docusate Sodium 1 Tablet 2 TABLET PO ×2 (09:56→21:33)
[2023-06-02] MEDS: Cholecalciferol (VIT D3) 25 MCG TABLET (1,000 UNITS) PO (09:57)
[2023-06-02] MEDS: Insulin Glargine-YFGN 100 UNIT/ML Pen 60 UNIT SC (09:59)
[2023-06-02] MEDS: Insulin Lispro 100 UNIT/ML INSULN.PEN 20 UNIT SC (09:59)
[2023-06-02] MEDS: Aspirin 81 MG TAB.CHEW PO ×2 (10:00→21:33)
--- NOTE | 2023-06-02 10:50 | NURSING ---
IV [facility] NOT ON UNIT FOR PT ADMINISTRATION AT THIS TIME
--- NOTE | 2023-06-02 11:02 | CASEMGMT ---
[employer] Info Claim Number [id number] Erin [phone] Quality Assurance Test Program Manager Fax
--- NOTE | 2023-06-02 11:12 | WOUNDNOTE ---
Wound VAC dressing remains intact to the right knee. there is a small amount of drainage noted in the canister. awaiting final culture results. pt will most likely be in the hospital through the weekend. still awaiting approval for the wound VAC as well.
[2023-06-02 11:57] LABS: Bedside Glucose 72 mg/dL (74-106)
[2023-06-02 14:55] VITALS: BP 132/58; PULSE 74; RESP 18; TEMP 36.6; O2SAT 98
--- NOTE | 2023-06-02 14:57 | US_ITS ---
INDICATION: Worsening kidney fxn EXAMINATION: Ultrasound US Kidney(s) complete (eg, kidneys and bladder) TECHNIQUE: Patel scale and color doppler images were obtained of the kidneys. COMPARISON: None FINDINGS: RIGHT KIDNEY: 10.7 x 5.3 x 6.6 cm. There is no hydronephrosis. No shadowing calculus, focal lesion or perinephric collection is demonstrated. LEFT KIDNEY: 11 x 6.7 x 7.4 cm. There is no hydronephrosis. No shadowing calculus, focal lesion or perinephric collection is demonstrated. URINARY BLADDER: Diffuse urinary bladder wall thickening to 7.2 mm. Both ureter jets are visualized. US/Kidney and Bladder IMPRESSION: Diffuse urinary bladder wall thickening raises suspicion for cystitis versus chronic bladder outlet obstruction. Electronically Signed: Josh Joy MD at 19:58 EDT ,
[2023-06-02 16:21] LABS: Bedside Glucose 64 mg/dL (74-106)
[2023-06-02] MEDS: Montelukast 10 MG Tablet PO (16:47)
[2023-06-02] MEDS: Ensure Surgery 237 ML LIQUID PO (16:48)
[2023-06-02 18:28] LABS: Mucous, Urine 0 SEEN /hpf (<or=2+)
[2023-06-02 18:52] LABS: Glucose, Dipstick Normal (Normal); Ketone-Dipstick Negative (Negative); Leukocyte Esterase-Dipstick Negative /ul (Negative); Nitrite-Dipstick Negative (Negative); Occult Blood-Urine 25 /ul (Negative); Protein-Dipstick 500 mg/dl (Negative); Specific Gravity, Urine 1.015 (1.002-1.030); Urine Bilirubin Dipstick Negative (Negative); Urine Urobilinogen Normal (Normal)
[2023-06-02 18:57] LABS: Urea Nitrogen, Urine 307 mg/dL (NO RANGE EST.); Urine Chloride < 10 mmol/L (Not Establ.); Urine Sodium 10 mmol/L (Not Establ.)
[2023-06-02 19:04] LABS: Color, Urine Yellow (Yellow); Urine Clarity Sl. Cloudy (Clear)
[2023-06-02 19:18] LABS: Bacteria RARE /hpf (None Seen); Fine Granular Cast- Urine 0-5 SEEN /lpf (0-5); Red Blood Cells-Urine 0-5 SEEN /hpf (0-5); Squamous Epithelial Cells - UA 0-5 SEEN /hpf (0-5); White Blood Cells 0-5 SEEN /hpf (0-5)
[2023-06-02 19:19] LABS: Amorphous Sediment 1+ URATE
[2023-06-02 21:16] VITALS: BP 166/71; PULSE 77; RESP 18; TEMP 37.3; O2SAT 99
[2023-06-02] MEDS: Pravastatin 40 MG Tablet PO (21:33)
[2023-06-02 22:45] LABS: Bedside Glucose 134 mg/dL (74-106)
[2023-06-02 22:48] LABS: Osmolality, Urine 216 mOsm/KG
[2023-06-03] MEDS: 0.9% Saline Lock 10 ML Syringe IV (01:22)
[2023-06-03 04:00] VITALS: BP 165/66; PULSE 81; RESP 18; TEMP 37.4; O2SAT 96
[2023-06-03] MEDS: Acetaminophen 500 MG Tablet 1000 MG PO ×3 (05:10→20:10)
[2023-06-03] MEDS: oxyCODONE 5 MG Tablet PO ×4 (05:10→20:09)
[2023-06-03 06:09] LABS: Bedside Glucose 113 mg/dL (74-106)
[2023-06-03 06:22] LABS: Absolute Lymphocyte Count 1.39 X10^3/uL (0.83-4.51); Absolute Neutrophil Count 5.1 X10^3/uL (2.0-7.7); Basophil# 0.02 X10^3/uL; Basophil% 0.3 % (0-1); Eosinophil# 0.26 X10^3/uL; Eosinophils% 3.5 % (0-5); Hematocrit 32.5 % (40-54); Lymphocyte # 1.39 X10^3/ul (0.83-4.51); Lymphocyte % 18.7 % (19-41); Mean Corp Hgb Conc 30.8 g/dL (32-36); Mean Corpuscular Hgb 26.7 pg (27.0-32.0); Mean Corpuscular Volume 86.9 fL (80-94); Mean Platelet Vol. 10.1 fl (6.2-12.0); Monocyte# 0.64 X10^3/uL; Monocyte% 8.6 % (0-10); NRBC Flagged by Analyzer 0 % (0-5); Neutrophil # 5.08 X10^3/uL (2.7-7.7); Neutrophil % 68.5 % (47-70); Platelet Count 194 K/mm3 (150-450); RBC Distribution Width CV 13.3 % (11.6-14.6); RBC Distribution Width SD 42.1 fl (35.1-43.9); Red Blood Count 3.74 M/mm3 (4.6-6.2); White Blood Count 7.4 K/mm3 (4.4-11.0)
[2023-06-03 06:55] LABS: Anion Gap 7 (5-15); BUN 73 mg/dL (7-18); BUN/Creat Ratio 16.4 RATIO (10-20); Calcium,Total 8.1 mg/dL (8.5-10.1); Chloride 105 mmol/L (98-107); Creatinine, Serum 4.44 mg/dL (0.70-1.30); EST Glomerular Filtration Rate 14 mL/min (>60); Est Glom Filt Rate - Afr Amer 17 mL/min (>60); Estimated Creatinine Clearance 15.92 ml/min; Glucose 104 mg/dL (74-106); Potassium 4.7 mmol/L (3.5-5.1); Sodium Level 136 mmol/L (136-145)
--- NOTE | 2023-06-03 07:35 | PN.HOSP_ITS ---
Reason for Visit Reason for Visit: Diagnoses Type 2 diabetes mellitus without complications (05/31/23) Essential (primary) hypertension (05/31/23) Atherosclerotic heart disease of [place] coronary artery without angina pectoris (05/31/23) Chronic obstructive pulmonary disease, unspecified (05/31/23) Gastro-esophageal reflux disease without esophagitis (05/31/23) Pyogenic arthritis, unspecified (05/31/23) Encounter for other preprocedural examination (05/31/23) Presence of right artificial knee joint (05/31/23) Objective Data Objective Data Vital Signs: Vital Signs Temp Pulse Resp BP Pulse Ox O2 Del Method O2 Flow Rate 99.4 F H 81 18 165/66 H 96 Room Air 3 06/03/23 04:00 06/03/23 04:00 06/03/23 04:00 06/03/23 04:00 06/03/23 04:00 06/03/23 04:00 05/31/23 15:49 Oxygen Flow Rate (L/min) 3 Oxygen Delivery Method Room Air Weight: 244 lb 11.41 oz Body Mass Index (BMI) 38.3 Intake & Output: Intake and Output for Last 24 Hours 06/01/23 06/02/23 06/03/23 23:59 23:59 23:59 Intake Total 2050 / 2050 720 / 720 Output Total 1000 / 1000 400 / 400 200 / 200 Balance 1050 / 1050 320 / 320 -200 / -200 Lab / Micro Data 06/03/23 05:43 06/03/23 05:43 Labs: Laboratory Results - last 24 hr 06/02/23 05:35: Sodium 139, Potassium 5.0, Chloride 107, Carbon Dioxide 26.0, Anion Gap 6, BUN 65 H, Creatinine 4.55 H, Estim Creat Clear Calc 15.54, Est GFR (MDRD) Af Amer 17 L, Est GFR (MDRD) Non-Af 14 L, BUN/Creatinine Ratio 14.3, Glucose 64 L, Calcium 7.8 L 06/02/23 11:37: POC Glucose 72 L 06/02/23 16:02: POC Glucose 64 L 06/02/23 18:16: Urine Color Yellow, Urine Clarity Sl. Cloudy, Urine pH 6.0, Ur Specific [place] 1.015, Urine Protein 500 H, Urine Glucose (UA) Normal, Urine Ketones Negative, Urine Occult Blood 25 H, Urine Nitrite Negative, Urine Bilirubin Negative, Urine Urobilinogen Normal, Ur Leukocyte Esterase Negative, Urine RBC 0-5 SEEN, Urine WBC 0-5 SEEN, Ur Squamous Epith Cells 0-5 SEEN, Amorphous Sediment 1+ URATE, Urine Bacteria RARE, Fine Granular Casts 0-5 SEEN, Urine Mucus 0 SEEN, Urine Osmolality 216, Ur Random Sodium 10, Urine Creatinine 64.90, Urine Potassium 23.0, Urine Chloride < 10, Urine Urea Nitrogen 307 06/02/23 21:20: POC Glucose 134 H 06/03/23 05:43: WBC 7.4, RBC 3.74 L, Hgb 10.0 L, Hct 32.5 L, MCV 86.9, MCH 26.7 L, MCHC 30.8 L, RDW Std Deviation 42.1, RDW Coeff of Alexa 13.3, Plt Count 194, MPV 10.1, Immature Gran % (Auto) 0.400, Neut % (Auto) 68.5, Lymph % (Auto) 18.7 L, [place] % (Auto) 8.6, Eos % (Auto) 3.5, Baso % (Auto) 0.3, Absolute Neuts (auto) 5.1, Absolute Lymphs (auto) 1.39, Nucleated RBC % 0, Sodium 136, Potassium 4.7, Chloride 105, Carbon Dioxide 24.0, Anion Gap 7, BUN 73 H, Creatinine 4.44 H, Estim Creat Clear Calc 15.92, Est GFR (MDRD) Af Amer 17 L, Est GFR (MDRD) Non-Af 14 L, BUN/Creatinine Ratio 16.4, Glucose 104, Calcium 8.1 L 06/03/23 05:47: POC Glucose 113 H Micro: Microbiology 05/31/23 12:17 Tissue - Knee Gram Stain - Final 05/31/23 12:17 Tissue - Knee Wound Culture - Preliminary Pseudomonas aeruginosa Gram Positive Cocci 05/31/23 12:15 Tissue - Knee Gram Stain - Final 05/31/23 12:15 Tissue - Knee Wound Culture - Preliminary Staphylococcus aureus 05/31/23 11:55 Tissue - Suprapatellar Pouch Gram Stain - Final 05/31/23 11:55 Tissue - Suprapatellar Pouch Wound Culture - Preliminary Staphylococcus aureus 05/19/23 07:17 Swab (Method) Nasal Screen MRSA/MSSA - Final Radiography Diagnostic Testing: Radiology Impression Renal Ultrasound 06/02/23 14:57 IMPRESSION: Diffuse urinary bladder wall thickening raises suspicion for cystitis versus chronic bladder outlet obstruction. Electronically Signed: Josh Joy MD at 19:58 EDT , Assessment & Plan Assessment/Plan (1) Status post revision of total replacement of right knee: PLAN: Plan # septic arthritis of right knee, status post revision of total replacement of right knee: Patient had initial right total knee arthroplasty in 2017 and shortly thereafter had right periprosthetic knee infection. He had multiple total of 5 revisions. Operative cultures growing Pseudomonas rare growth and rare gram-positive organism. No fever or chills. Patient initially on cef azolin and was started on doxycycline. Antibiotic changed to IV meropenem adjusted to the kidney function. 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 Cueva -No complications -JYOTI titus -Scheduled Tylenol, pain control -Patient on cefazolin and started on Doxy -Aspirin 81 mg twice daily 06/03: Avoid NSAIDs for pain controlAspirin twice daily for 4 weeks postop. Weightbearing as tolerated. Wound VAC on discharge with twice weekly dressing changes and wound care #Intraoperative knee cultures with Pseudomonas and gram-positive cocci -Patient was on Doxy but is growing Pseudomonas resistant to Zosyn, ID on board and switched him to meropenem -We will continue to follow cultures as there is also gram-positive cocci #MAICO on likely CKD stage IIIb -Last creatinine 2.43 on 05/19/2023 however no previous values since 2019 -Creatinine today 3.47, BUN 56 -DC all NSAIDs/avoid all NSAIDs -Hold losartan -BP also soft this a.m., will give small bolus -06/03: Kidney function continues to worsen, monitor I's and O's and daily weights, kidney ultrasound shows bladder wall thickening probably cystitis or chronic bladder outlet obstruction. Light Out Examiner is consulting. Hold for lethargy/sedation or respiratory rate less than 10/min nephrotoxic medications. UA shows protein high otherwise normal specific gravity, nitrite and LE negative. WBC 0-5 cells. #Type 2 diabetes mellitus -Glucose checks and sliding scale insulin -Patient had several low blood glucoses, will decrease 80 units of glargine twice daily to 60 units twice daily and decrease the 30 twice daily of short acting to 20 twice daily, low glucoses despite home regimen may be due to MAICO, continue to monitor and adjust -06/03: Insulin dose adjusted. Glucose 113. Insulin and Humalog insulin further decreased with holding parameters #Coronary artery disease -Continue aspirin and statin #GERD -Continue Protonix #COPD -Does not use any inhalers at home at present, will add albuterol as needed #DVT ppx: Aspirin twice daily Microbiology Past 72 Hours 05/31/23 12:17 Tissue - Knee Gram Stain - Final 05/31/23 12:17 Tissue - Knee Wound Culture - Preliminary Pseudomonas aeruginosa Staphylococcus aureus 05/31/23 12:15 Tissue - Knee Gram Stain - Final 05/31/23 12:15 Tissue - Knee Wound Culture - Final Meth. resistant Staph. aureus 05/31/23 11:55 Tissue - Suprapatellar Pouch Gram Stain - Final 05/31/23 11:55 Tissue - Suprapatellar Pouch Wound Culture - Final Meth. resistant Staph. aureus Laboratory Results 06/02/23 11:37: POC Glucose 72 L 06/02/23 16:02: POC Glucose 64 L 06/02/23 18:16: Urine Color Yellow, Urine Clarity Sl. Cloudy, Urine pH 6.0, Ur Specific [place] 1.015, Urine Protein 500 H, Urine Glucose (UA) Normal, Urine Ketones Negative, Urine Occult Blood 25 H, Urine Nitrite Negative, Urine Bilirubin Negative, Urine Urobilinogen Normal, Ur Leukocyte Esterase Negative, Urine RBC 0-5 SEEN, Urine WBC 0-5 SEEN, Ur Squamous Epith Cells 0-5 SEEN, Amorphous Sediment 1+ URATE, Urine Bacteria RARE, Fine Granular Casts 0-5 SEEN, Urine Mucus 0 SEEN, Urine Osmolality 216, Ur Random Sodium 10, Urine Creatinine 64.90, Urine Potassium 23.0, Urine Chloride < 10, Urine Urea Nitrogen 307 06/02/23 21:20: POC Glucose 134 H 06/03/23 05:43: WBC 7.4, RBC 3.74 L, Hgb 10.0 L, Hct 32.5 L, MCV 86.9, MCH 26.7 L, MCHC 30.8 L, RDW Std Deviation 42.1, RDW Coeff of Alexa 13.3, Plt Count 194, MPV 10.1, Immature Gran % (Auto) 0.400, Neut % (Auto) 68.5, Lymph % (Auto) 18.7 L, [place] % (Auto) 8.6, Eos % (Auto) 3.5, Baso % (Auto) 0.3, Absolute Neuts (auto) 5.1, Absolute Lymphs (auto) 1.39, Nucleated RBC % 0, Sodium 136, Potassium 4.7, Chloride 105, Carbon Dioxide 24.0, Anion Gap 7, BUN 73 H, Creatinine 4.44 H, Estim Creat Clear Calc 15.92, Est GFR (MDRD) Af Amer 17 L, Est GFR (MDRD) Non-Af 14 L, BUN/Creatinine Ratio 16.4, Glucose 104, Calcium 8.1 L 06/03/23 05:47: POC Glucose 113 H Charges/Coding Visit Charges Inpatient E&M: 54468 Subs Hosp L2
[2023-06-03] MEDS: Senna/Docusate Sodium 1 Tablet 2 TABLET PO ×2 (08:05→20:10)
[2023-06-03] MEDS: Multivitamins,Ther W-Minerals Tablet 1 TABLET PO (08:06)
[2023-06-03] MEDS: Pantoprazole Sodium 20 MG Tablet PO (08:06)
[2023-06-03] MEDS: Aspirin 81 MG TAB.CHEW PO ×2 (08:06→20:10)
[2023-06-03] MEDS: Famotidine 20 MG Tablet PO (08:07)
[2023-06-03] MEDS: Escitalopram Oxalate 10 MG Tablet PO (08:07)
[2023-06-03] MEDS: Ensure Surgery 237 ML LIQUID PO ×3 (08:08→16:11)
[2023-06-03] MEDS: Insulin Glargine-YFGN 100 UNIT/ML Pen 50 UNIT SC (08:09)
[2023-06-03] MEDS: Insulin Lispro 100 UNIT/ML INSULN.PEN 15 UNIT SC (08:10)
[2023-06-03] MEDS: Cholecalciferol (VIT D3) 25 MCG TABLET (1,000 UNITS) PO (08:11)
[2023-06-03 08:39] VITALS: BP 147/63; PULSE 78; RESP 16; TEMP 36.8; O2SAT 97
[2023-06-03 11:37] LABS: Bedside Glucose 124 mg/dL (74-106)
[2023-06-03 11:40] VITALS: BP 114/65; PULSE 78; RESP 16; TEMP 36.8; O2SAT 100
--- NOTE | 2023-06-03 15:42 | PCM.CONS.R ---
Assessment & Plan Assessment/Plan (1) Acute kidney injury: PLAN: Patient has underlying CKD, most likely due to diabetic nephropathy. Most recent creatinine prior to admission was 2.43. Admitted with septic arthritis, creatinine was really elevated on admission. It did peak at 4.4 yesterday and started to decline today with improved urine output. He is hemodynamically stable, his urine output has improved, no significant acidosis and electrolytes are fine PLAN: Plan Continue with current antibiotic treatment Avoid dehydration Avoid nephrotoxins We will follow HPI Consult Data Date of Consult: 06/03/23 HPI Narrative Reason for Consultation: Acute on chronic kidney injury HPI Narrative: CHRISTOPH NICHOLS, is a 62 M who presents with recurrent right knee septic arthritis, has gram-positive cocci and Pseudomonas recovered. He was admitted day before yesterday with progressive knee pain. Creatinine on admission was 3.4, on day of surgery which is yesterday went up to 4.5, and today it is better down to 4.4. He has known chronic kidney insufficiency and most recent creatinine a month ago was 2.43. He has longstanding diabetes mellitus and presumable diagnosis is diabetic nephropathy. On the beginning his urine output was quite low, but with volume expansion that has improved. Electrolytes are fine, no significant acidosis, no signs of fluid overload. He is hemodynamically stable and denies intake of nonsteroidals or any other nephrotoxins FORMERLY [facility], 1928–1983 Medical History Alcohol use Arthritis Back pain Cardiology follow-up encounter COPD (chronic obstructive pulmonary disease) Depression Dietary restriction Gastric reflux High cholesterol History of edema History of hiatal hernia History of pain when walking History of stress test Hypertension Insulin dependent diabetes mellitus Loss of hearing NSTEMI (non-ST elevated myocardial infarction) Smoker Wears dentures Home Medications escitalopram oxalate 5 mg tablet (Lexapro) 10 mg PO DAILY depression 10/15/16 [History Last Taken 10/15/16] cjtzqrdv-nvd-ukkwo acid 0.4 mg-lycopene 300 mcg-lutein 250 mcg tablet (Centrum Silver) 1 ea PO DAILY supplement 10/15/16 [History Last Taken Unknown] omeprazole 20 mg capsule,delayed release 20 mg PO DAILY gerd 10/15/16 [History Last Taken 05/31/23] valsartan 80 mg tablet 80 mg PO DAILY bp 10/15/16 [History Last Taken 03/21/18 08:20] insulin aspart U-100 100 unit/mL (3 mL) subcutaneous pen (Novolog FlexPen U-100 Insulin aspart) 30 units subcut BID diabetes 01/15/18 [History Last Taken Unknown] insulin degludec 100 unit/mL (3 mL) subcutaneous pen (Tresiba FlexTouch U-100 insulin) 80 unit SQ BID diabetes 01/15/18 [History Last Taken Unknown] montelukast 10 mg tablet 10 mg PO DAILY@1700 #42 tabs 03/22/18 [Rx Last Taken Unknown] pravastatin 40 mg tablet 40 mg PO QHS 08/24/18 [History Last Taken Unknown] aspirin 81 mg tablet,delayed release 81 mg PO DAILY 05/17/23 [History Last Taken 05/24/23] cholecalciferol (vitamin D3) 25 mcg (1,000 unit) tablet (Vitamin D3) 25 mcg PO DAILY 05/17/23 [History Last Taken Unknown] oxycodone-acetaminophen 5 mg-325 mg tablet 1 tab PO Q8H PRN Pain 05/17/23 [History Last Taken Unknown] Allergy/AdvReac Type Severity Reaction Status Date / Time No Known Allergies Allergy Verified 05/17/23 10:10 Surgical History Coronary angioplasty status History of arthroplasty of knee Hx laparoscopic cholecystectomy Hx of arthroscopy Hx of arthroscopy of right knee Hx of foot surgery Hx of hernia repair Hx of knee surgery Hx of knee surgery Hx of knee surgery Hx of left cataract extraction Hx of right cataract extraction Hx of total knee arthroplasty Status post coronary artery stent placement Status post revision of total replacement of right knee Social History Smoking Status: Current every day smoker tobacco type: cigarettes and smokeless tobacco ROS ROS Narrative 14 point comprehensive system review was performed, all positives as well as pertinent negatives are reflected in current H&P Physical Exam Const General Appearance: well developed Orientation / Consciousness: oriented to person, oriented to place and oriented to time Nutritional Appearance: obese HEENT normocephalic and moist oral mucous membranes Head and Scalp: atraumatic Eyes PERRL Neck no lymphadenopathy Resp no use of accessory muscles and clear to auscultation bilaterally Cardio regular rate, no murmurs and no rub GI non-tender and non-distended Auscultation: normoactive bowel sounds Palpation: soft and firm Skin no rashes or lesions noted Neuro Sensorium / Orientation: awake and alert Lab / Micro Data Attestation: I reviewed the patient's lab results. 06/03/23 05:43 06/03/23 05:43 Labs: Laboratory Results - last 24 hr 06/02/23 16:02: POC Glucose 64 L 06/02/23 18:16: Urine Color Yellow, Urine Clarity Sl. Cloudy, Urine pH 6.0, Ur Specific [place] 1.015, Urine Protein 500 H, Urine Glucose (UA) Normal, Urine Ketones Negative, Urine Occult Blood 25 H, Urine Nitrite Negative, Urine Bilirubin Negative, Urine Urobilinogen Normal, Ur Leukocyte Esterase Negative, Urine RBC 0-5 SEEN, Urine WBC 0-5 SEEN, Ur Squamous Epith Cells 0-5 SEEN, Amorphous Sediment 1+ URATE, Urine Bacteria RARE, Fine Granular Casts 0-5 SEEN, Urine Mucus 0 SEEN, Urine Osmolality 216, Ur Random Sodium 10, Urine Creatinine 64.90, Urine Potassium 23.0, Urine Chloride < 10, Urine Urea Nitrogen 307 06/02/23 21:20: POC Glucose 134 H 06/03/23 05:43: WBC 7.4, RBC 3.74 L, Hgb 10.0 L, Hct 32.5 L, MCV 86.9, MCH 26.7 L, MCHC 30.8 L, RDW Std Deviation 42.1, RDW Coeff of Alexa 13.3, Plt Count 194, MPV 10.1, Immature Gran % (Auto) 0.400, Neut % (Auto) 68.5, Lymph % (Auto) 18.7 L, [place] % (Auto) 8.6, Eos % (Auto) 3.5, Baso % (Auto) 0.3, Absolute Neuts (auto) 5.1, Absolute Lymphs (auto) 1.39, Nucleated RBC % 0, Sodium 136, Potassium 4.7, Chloride 105, Carbon Dioxide 24.0, Anion Gap 7, BUN 73 H, Creatinine 4.44 H, Estim Creat Clear Calc 15.92, Est GFR (MDRD) Af Amer 17 L, Est GFR (MDRD) Non-Af 14 L, BUN/Creatinine Ratio 16.4, Glucose 104, Calcium 8.1 L 06/03/23 05:47: POC Glucose 113 H 06/03/23 10:58: POC Glucose 124 H Micro: Microbiology 05/31/23 12:17 Tissue - Knee Gram Stain - Final 05/31/23 12:17 Tissue - Knee Wound Culture - Preliminary Pseudomonas aeruginosa Staphylococcus aureus 05/31/23 12:15 Tissue - Knee Gram Stain - Final 05/31/23 12:15 Tissue - Knee Wound Culture - Final Meth. resistant Staph. aureus 05/31/23 11:55 Tissue - Suprapatellar Pouch Gram Stain - Final 05/31/23 11:55 Tissue - Suprapatellar Pouch Wound Culture - Final Meth. resistant Staph. aureus Radiology Impression Renal Ultrasound 06/02/23 14:57 IMPRESSION: Diffuse urinary bladder wall thickening raises suspicion for cystitis versus chronic bladder outlet obstruction. Electronically Signed: Josh Joy MD at 19:58 EDT ,
[2023-06-03 15:50] VITALS: BP 161/73; PULSE 73; RESP 16; TEMP 36.9; O2SAT 99
[2023-06-03 16:04] LABS: Bedside Glucose 135 mg/dL (74-106)
[2023-06-03] MEDS: Montelukast 10 MG Tablet PO (16:11)
--- NOTE | 2023-06-03 16:56 | PCM.PN.ORT ---
Subjective Subjective Patient is doing well overall. Did see the preventive medicine physician today due to changes in kidney function. Patient has chronic kidney disease. Seems to be normalizing on labs. Cultures have now grown out Pseudomonas aeruginosa and MRSA. Objective Data Objective Data Vital Signs: Vital Signs Temp Pulse Resp BP Pulse Ox O2 Del Method O2 Flow Rate 98.5 F 73 16 161/73 H 99 Room Air 3 06/03/23 15:50 06/03/23 15:50 06/03/23 15:50 06/03/23 15:50 06/03/23 15:50 06/03/23 15:50 05/31/23 15:49 Oxygen Flow Rate (L/min) 3 Oxygen Delivery Method Room Air Weight: 244 lb 11.41 oz Body Mass Index (BMI) 38.3 Intake & Output: Intake and Output for Last 24 Hours 06/01/23 06/02/23 06/03/23 23:59 23:59 23:59 Intake Total 2050 / 2050 720 / 720 560 / 560 Output Total 1000 / 1000 400 / 400 200 / 200 Balance 1050 / 1050 320 / 320 360 / 360 Lab / Micro Data Attestation: I reviewed the patient's lab results. 06/03/23 05:43 06/03/23 05:43 Labs: Laboratory Results - last 24 hr 06/02/23 18:16: Urine Color Yellow, Urine Clarity Sl. Cloudy, Urine pH 6.0, Ur Specific [place] 1.015, Urine Protein 500 H, Urine Glucose (UA) Normal, Urine Ketones Negative, Urine Occult Blood 25 H, Urine Nitrite Negative, Urine Bilirubin Negative, Urine Urobilinogen Normal, Ur Leukocyte Esterase Negative, Urine RBC 0-5 SEEN, Urine WBC 0-5 SEEN, Ur Squamous Epith Cells 0-5 SEEN, Amorphous Sediment 1+ URATE, Urine Bacteria RARE, Fine Granular Casts 0-5 SEEN, Urine Mucus 0 SEEN, Urine Osmolality 216, Ur Random Sodium 10, Urine Creatinine 64.90, Urine Potassium 23.0, Urine Chloride < 10, Urine Urea Nitrogen 307 06/02/23 21:20: POC Glucose 134 H 06/03/23 05:43: WBC 7.4, RBC 3.74 L, Hgb 10.0 L, Hct 32.5 L, MCV 86.9, MCH 26.7 L, MCHC 30.8 L, RDW Std Deviation 42.1, RDW Coeff of Alexa 13.3, Plt Count 194, MPV 10.1, Immature Gran % (Auto) 0.400, Neut % (Auto) 68.5, Lymph % (Auto) 18.7 L, [place] % (Auto) 8.6, Eos % (Auto) 3.5, Baso % (Auto) 0.3, Absolute Neuts (auto) 5.1, Absolute Lymphs (auto) 1.39, Nucleated RBC % 0, Sodium 136, Potassium 4.7, Chloride 105, Carbon Dioxide 24.0, Anion Gap 7, BUN 73 H, Creatinine 4.44 H, Estim Creat Clear Calc 15.92, Est GFR (MDRD) Af Amer 17 L, Est GFR (MDRD) Non-Af 14 L, BUN/Creatinine Ratio 16.4, Glucose 104, Calcium 8.1 L 06/03/23 05:47: POC Glucose 113 H 06/03/23 10:58: POC Glucose 124 H 06/03/23 15:46: POC Glucose 135 H Micro: Microbiology 05/31/23 12:17 Tissue - Knee Gram Stain - Final 05/31/23 12:17 Tissue - Knee Wound Culture - Preliminary Pseudomonas aeruginosa Staphylococcus aureus 05/31/23 12:15 Tissue - Knee Gram Stain - Final 05/31/23 12:15 Tissue - Knee Wound Culture - Final Meth. resistant Staph. aureus 05/31/23 11:55 Tissue - Suprapatellar Pouch Gram Stain - Final 05/31/23 11:55 Tissue - Suprapatellar Pouch Wound Culture - Final Meth. resistant Staph. aureus 05/19/23 07:17 Swab (Method) Nasal Screen MRSA/MSSA - Final Radiography Diagnostic Testing: Radiology Impression Renal Ultrasound 06/02/23 14:57 IMPRESSION: Diffuse urinary bladder wall thickening raises suspicion for cystitis versus chronic bladder outlet obstruction. Electronically Signed: Josh Joy MD at 19:58 EDT , Physical Exam Const alert and oriented x3 Extremity Extremity Narrative: Right lower extremity: Wound VAC is intact. Minimal surrounding erythema. There is some fluid along the tube and a small amount of fluid in the canister no active fluid is draining in the tube. There is also some blood around the sponge. Sensations intact to light touch saphenous, sural, superficial peroneal, deep peroneal, and tibial distributions Motors intact EHL, DF, PF calves are soft and supple Assessment & Plan Assessment/Plan (1) Status post revision of total replacement of right knee: PLAN: 1. S/P revision right total knee replacement patella revision and polyethylene exchange with scarred excision and quadricepplasty POD #3 2. Continue Pain Medications: Tylenol and oxycodone 3. DVT Prophylaxis: Take 81 mg aspirin twice daily for 4 weeks postoperatively for DVT prophylaxis. Patient denies past history of DVT or pulmonary embolism. 4. PT/OT: Weightbearing as tolerated with walker. We are limiting flexion to get skin rest. 5. H & H: Labs were stable yesterday. Last hemoglobin 10.0. We will recheck labs tomorrow 6. Continue postop medical management per medicine: Patient does have stable chronic kidney disease. Patient's chronic kidney disease did worsen initially. Starting to improve. Appreciate input from medicine service and renal consultation. At this time we will continue to avoid dehydration. NSAIDs have been avoided. 7. Encouraged Incentive Spirometry 8. Postoperative drainage: Wound care nurse is following. Working on obtaining approval from [place] of Workmen's Comp. for VAC on discharge. We will continue with the wound VAC with continuous setting at 75 mmHg with twice weekly dressing changes. At this time patient will likely need dressing change Monday patient will require home health for dressing changes and physical therapy. 9. P JI: Patient has Pseudomonas aeruginosa and MRSA positive cultures. Staff is consistent with original infectious etiology. May likely be the cause of his continued residual stiffness and pain. I discussed at length treatment options. Considering retained implants and patient has had numerous surgeries and desires to avoid further surgical intervention he would likely be a candidate for chronic suppressive antibiotics. We will proceed with a course of IV antibiotics. Currently on IV meropenem. We will need [employer]'s [employer] approval prior to discharge. 10. Disposition: Pending infectious disease recommendations on antibiotics now that we have more definitive organisms we will await ID input early next week and work on arranging antibiotics so patient can be discharged. Patient will require home health for changes. Case management currently involved for appropriate discharge planning. Hopeful for possible discharge home with home health early next week as long as patient is stable. Continue to focus and work on physical therapy while in the hospital. We are also checking with patient's primary care physician as he is on chronic Percocet for pain control. We are making sure that we are able to prescribe postoperative pain medications. This was discussed with the patient. He voiced understanding and agreement. This dictation was created using voice recognition software. Phonetic and/or grammatical errors may exist. [facility] Office:
[2023-06-03] MEDS: Pravastatin 40 MG Tablet PO (20:10)
[2023-06-03] MEDS: Polyethylene Glycol 3350 17 GM PACKET PO (20:11)
[2023-06-03] MEDS: Insulin Glargine-YFGN 100 UNIT/ML Pen 30 UNIT SC (20:15)
--- NOTE | 2023-06-03 20:31 | NURSING ---
Pt said he is very tired tonight and wants all care to be done so he can sleep. medication given early
[2023-06-03 20:41] VITALS: BP 155/61; PULSE 77; RESP 17; TEMP 36.6; O2SAT 98
[2023-06-03 21:28] LABS: Bedside Glucose 146 mg/dL (74-106)
[2023-06-04 02:37] VITALS: BP 153/69; PULSE 71; RESP 17; TEMP 36.7; O2SAT 99
[2023-06-04] MEDS: Acetaminophen 500 MG Tablet 1000 MG PO ×3 (06:30→22:48)
[2023-06-04 06:55] LABS: Absolute Lymphocyte Count 1.11 X10^3/uL (0.83-4.51); Absolute Neutrophil Count 4.5 X10^3/uL (2.0-7.7); Basophil# 0.02 X10^3/uL; Basophil% 0.3 % (0-1); Eosinophil# 0.24 X10^3/uL; Eosinophils% 3.7 % (0-5); Hematocrit 31.3 % (40-54); Hemoglobin 9.9 g/dL (13.0-16.5); Lymphocyte # 1.11 X10^3/ul (0.83-4.51); Lymphocyte % 17.1 % (19-41); Mean Corp Hgb Conc 31.6 g/dL (32-36); Mean Corpuscular Hgb 27.6 pg (27.0-32.0); Mean Corpuscular Volume 87.2 fL (80-94); Mean Platelet Vol. 10.2 fl (6.2-12.0); Monocyte# 0.57 X10^3/uL; Monocyte% 8.8 % (0-10); NRBC Flagged by Analyzer 0 % (0-5); Neutrophil # 4.52 X10^3/uL (2.7-7.7); Neutrophil % 69.5 % (47-70); Platelet Count 214 K/mm3 (150-450); RBC Distribution Width CV 13.3 % (11.6-14.6); RBC Distribution Width SD 42.3 fl (35.1-43.9); Red Blood Count 3.59 M/mm3 (4.6-6.2); White Blood Count 6.5 K/mm3 (4.4-11.0)
[2023-06-04 06:58] LABS: Bedside Glucose 121 mg/dL (74-106)
--- NOTE | 2023-06-04 07:32 | PCM.PN.HOSP ---
Reason for Visit Reason for Visit: Diagnoses Type 2 diabetes mellitus without complications (05/31/23) Essential (primary) hypertension (05/31/23) Atherosclerotic heart disease of [place] coronary artery without angina pectoris (05/31/23) Chronic obstructive pulmonary disease, unspecified (05/31/23) Gastro-esophageal reflux disease without esophagitis (05/31/23) Pyogenic arthritis, unspecified (05/31/23) Acute kidney failure, unspecified (05/31/23) Encounter for other preprocedural examination (05/31/23) Presence of right artificial knee joint (05/31/23) Subjective Subjective Follow-up for right periprosthetic knee infection. No fever. Objective Data Objective Data Vital Signs: Vital Signs Temp Pulse Resp BP Pulse Ox O2 Del Method O2 Flow Rate 98.1 F 71 17 153/69 H 99 Room Air 3 06/04/23 02:37 06/04/23 02:37 06/04/23 02:37 06/04/23 02:37 06/04/23 02:37 06/04/23 02:37 05/31/23 15:49 Oxygen Flow Rate (L/min) 3 Oxygen Delivery Method Room Air Weight: 244 lb 11.41 oz Body Mass Index (BMI) 38.3 Intake & Output: Intake and Output for Last 24 Hours 06/02/23 06/03/23 06/04/23 23:59 23:59 23:59 Intake Total 720 / 720 1540 / 1540 120 / 120 Output Total 400 / 400 900 / 900 700 / 700 Balance 320 / 320 640 / 640 -580 / -580 Lab / Micro Data 06/04/23 05:35 06/04/23 05:35 Labs: Laboratory Results - last 24 hr 06/03/23 10:58: POC Glucose 124 H 06/03/23 15:46: POC Glucose 135 H 06/03/23 20:13: POC Glucose 146 H 06/04/23 05:35: WBC 6.5, RBC 3.59 L, Hgb 9.9 L, Hct 31.3 L, MCV 87.2, MCH 27.6, MCHC 31.6 L, RDW Std Deviation 42.3, RDW Coeff of Alexa 13.3, Plt Count 214, MPV 10.2, Immature Gran % (Auto) 0.600, Neut % (Auto) 69.5, Lymph % (Auto) 17.1 L, [place] % (Auto) 8.8, Eos % (Auto) 3.7, Baso % (Auto) 0.3, Absolute Neuts (auto) 4.5, Absolute Lymphs (auto) 1.11, Nucleated RBC % 0 06/04/23 06:25: POC Glucose 121 H Micro: Microbiology 05/31/23 12:17 Tissue - Knee Gram Stain - Final 05/31/23 12:17 Tissue - Knee Wound Culture - Preliminary Pseudomonas aeruginosa Staphylococcus aureus 05/31/23 12:15 Tissue - Knee Gram Stain - Final 05/31/23 12:15 Tissue - Knee Wound Culture - Final Meth. resistant Staph. aureus 05/31/23 11:55 Tissue - Suprapatellar Pouch Gram Stain - Final 05/31/23 11:55 Tissue - Suprapatellar Pouch Wound Culture - Final Meth. resistant Staph. aureus 05/19/23 07:17 Swab (Method) Nasal Screen MRSA/MSSA - Final Physical Exam Narrative Seen and examined. Patient complaining of right knee pain. Working with PT. Had multiple 5 surgeries in the past. No fever General: Alert, Oriented x3, Cooperative HEENT: Atraumatic, PERRLA, EOMI, Normocephalic Oral: Oral mucosa moist. No Gingival or Mucosal Lesions/ Ulcerations Neck: Supple, No JVD, Negative Carotid Bruits Lungs: Air entry diminished in bilateral lung bases. No crepitation/rhonchi Cardiovascular: Regular rate, Regular Rhythm, Normal S1, Normal S2, No murmurs Abdomen: Bowel Sounds Present, Soft, Non Tender, Non-Distended : No renal angle tenderness. No suprapubic tenderness. Extremities: No edema, Capillary Refill Less than 3 Seconds Skin: No rashes, No breakdown Musculoskeletal: Right knee has surgical dressing, Carlos A wrap bandage and ice bag. No Tenderness to Palpation of other joints or Extremities Neurological: Cranial nerves II-XII grossly intact, DTR 2+/4 and Symmetrical, Neuro grossly intact Psych/Mental Status: Normal Affect, Appropriate. Assessment & Plan Assessment/Plan (1) Status post revision of total replacement of right knee: (2) Septic arthritis of knee, right: QUALIFIERS: Septic arthritis organism: staphylococcal Qualified Code(s): M00.061 - Staphylococcal arthritis, right knee PLAN: Plan 1. Septic arthritis/periprosthetic infection of right knee, due to MRSA and Pseudomonas status post revision of total replacement of right knee: Patient had initial right total knee arthroplasty in 2017 and shortly thereafter had right periprosthetic knee infection. He had multiple total of 5 revisions. Operative cultures growing Pseudomonas rare growth and rare gram-positive organism. No fever or chills. Patient initially on cefazolin and was started on doxycycline. Antibiotic changed to IV meropenem adjusted to the kidney function. 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 Cueva -No complications -JYOTI titus -Scheduled Tylenol, pain control -Aspirin 81 mg twice daily 06/03: Avoid NSAIDs for pain control Aspirin twice daily for 4 weeks postop. Weightbearing as tolerated. Wound VAC on discharge with twice weekly dressing changes and wound care #Intraoperative knee cultures with Pseudomonas and gram-positive cocci -Patient was on Doxy but is growing Pseudomonas resistant to Zosyn, ID on board and switched him to meropenem -We will continue to follow cultures as there is also gram-positive cocci. Doxycycline for MRSA coverage. Vancomycin not a good choice for MAICO. #MAICO on likely CKD stage IIIb -Last creatinine 2.43 on 05/19/2023 however no previous values since 2019 -Creatinine today 3.47, BUN 56 -DC all NSAIDs/avoid all NSAIDs -Hold losartan -BP also soft this a.m., will give small bolus -06/03: Kidney function continues to worsen, monitor I's and O's and daily weights, kidney ultrasound shows bladder wall thickening probably cystitis or chronic bladder outlet obstruction. Recreational Programs Director is consulting. Hold for lethargy/sedation or respiratory rate less than 10/min nephrotoxic medications. UA shows protein high otherwise normal specific gravity, nitrite and LE negative. WBC 0-5 cells. #Type 2 diabetes mellitus -Glucose checks and sliding scale insulin -Patient had several low blood glucoses, will decrease 80 units of glargine twice daily to 60 units twice daily and decrease the 30 twice daily of short acting to 20 twice daily, low glucoses despite home regimen may be due to MAICO, continue to monitor and adjust -06/03: Insulin dose adjusted. Glucose 113. Insulin and Humalog insulin further decreased with holding parameters 06/04: Creatinine 4.22. Estimated creatinine clearance 16 mL/min. #Coronary artery disease -Continue aspirin and statin #GERD -Continue Protonix #COPD -Does not use any inhalers at home at present, will add albuterol as needed #DVT ppx: Aspirin twice daily Microbiology Past 72 Hours 05/31/23 12:17 Tissue - Knee Gram Stain - Final 05/31/23 12:17 Tissue - Knee Wound Culture - Final Pseudomonas aeruginosa Meth. resistant Staph. aureus 05/31/23 12:15 Tissue - Knee Gram Stain - Final 05/31/23 12:15 Tissue - Knee Wound Culture - Final Meth. resistant Staph. aureus 05/31/23 11:55 Tissue - Suprapatellar Pouch Gram Stain - Final 05/31/23 11:55 Tissue - Suprapatellar Pouch Wound Culture - Final Meth. resistant Staph. aureus Laboratory Results 06/03/23 15:46: POC Glucose 135 H 06/03/23 20:13: POC Glucose 146 H 06/04/23 05:35: WBC 6.5, RBC 3.59 L, Hgb 9.9 L, Hct 31.3 L, MCV 87.2, MCH 27.6, MCHC 31.6 L, RDW Std Deviation 42.3, RDW Coeff of Alexa 13.3, Plt Count 214, MPV 10.2, Immature Gran % (Auto) 0.600, Neut % (Auto) 69.5, Lymph % (Auto) 17.1 L, [place] % (Auto) 8.8, Eos % (Auto) 3.7, Baso % (Auto) 0.3, Absolute Neuts (auto) 4.5, Absolute Lymphs (auto) 1.11, Nucleated RBC % 0, Sodium 137, Potassium 4.6, Chloride 108 H, Carbon Dioxide 23.0, Anion Gap 6, BUN 79 H, Creatinine 4.22 H, Estim Creat Clear Calc 16.75, Est GFR (MDRD) Af Amer 18 L, Est GFR (MDRD) Non-Af 15 L, BUN/Creatinine Ratio 18.7, Glucose 104, Calcium 8.5 06/04/23 06:25: POC Glucose 121 H 06/04/23 11:00: POC Glucose 139 H Charges/Coding Visit Charges Inpatient E&M: 56859 Subs Hosp L2
[2023-06-04] MEDS: Senna/Docusate Sodium 1 Tablet 2 TABLET PO ×2 (07:42→22:48)
[2023-06-04] MEDS: Multivitamins,Ther W-Minerals Tablet 1 TABLET PO (07:43)
[2023-06-04] MEDS: Pantoprazole Sodium 20 MG Tablet PO (07:43)
[2023-06-04] MEDS: Famotidine 20 MG Tablet PO (07:43)
[2023-06-04] MEDS: Aspirin 81 MG TAB.CHEW PO ×2 (07:43→22:48)
[2023-06-04] MEDS: Escitalopram Oxalate 10 MG Tablet PO (07:44)
[2023-06-04] MEDS: Polyethylene Glycol 3350 17 GM PACKET PO ×2 (07:44→22:48)
[2023-06-04] MEDS: Cholecalciferol (VIT D3) 25 MCG TABLET (1,000 UNITS) PO (07:44)
[2023-06-04] MEDS: Insulin Lispro 100 UNIT/ML INSULN.PEN 10 UNIT SC (07:45)
[2023-06-04] MEDS: Ensure Surgery 237 ML LIQUID PO ×3 (07:46→17:04)
[2023-06-04] MEDS: oxyCODONE 5 MG Tablet PO ×2 (07:47→13:24)
[2023-06-04 07:54] LABS: Anion Gap 6 (5-15); BUN 79 mg/dL (7-18); BUN/Creat Ratio 18.7 RATIO (10-20); Calcium,Total 8.5 mg/dL (8.5-10.1); Chloride 108 mmol/L (98-107); Creatinine, Serum 4.22 mg/dL (0.70-1.30); EST Glomerular Filtration Rate 15 mL/min (>60); Est Glom Filt Rate - Afr Amer 18 mL/min (>60); Estimated Creatinine Clearance 16.75 ml/min; Glucose 104 mg/dL (74-106); Potassium 4.6 mmol/L (3.5-5.1); Sodium Level 137 mmol/L (136-145)
[2023-06-04 08:01] VITALS: BP 157/75; PULSE 70; RESP 16; TEMP 36.7; O2SAT 98
[2023-06-04] MEDS: Insulin Glargine-YFGN 100 UNIT/ML Pen 30 UNIT SC (09:58)
[2023-06-04] MEDS: 0.9% Saline Lock 10 ML Syringe IV ×2 (09:58→22:44)
--- NOTE | 2023-06-04 10:13 | PN.ORTHO_ITS ---
Subjective Subjective The patient was sitting in bedside chair upon examination. Patient denies any chest pain, shortness of breath, dizziness, lightheadedness, nausea or vomiting, or calf pain. Pain is controlled on medications. No adverse overnight events. Patient resting comfortably without any complaints today. Nephrology consult was obtained secondary to worsening renal function. There is slight improvement today on renal function. Patient also currently using a wound VAC with drainage in canister. Patient's cultures have grown out Pseudomonas aeruginosa and MRSA. Infectious disease currently on board and patient is on meropenem while following cultures. Objective Data Objective Data Vital Signs: Vital Signs Temp Pulse Resp BP Pulse Ox O2 Del Method O2 Flow Rate 98.1 F 70 16 157/75 H 98 Room Air 3 06/04/23 08:01 06/04/23 08:01 06/04/23 08:01 06/04/23 08:01 06/04/23 08:01 06/04/23 08:01 05/31/23 15:49 Oxygen Flow Rate (L/min) 3 Oxygen Delivery Method Room Air Weight: 111 kg Body Mass Index (BMI) 38.3 Intake & Output: Intake and Output for Last 24 Hours 06/02/23 06/03/23 06/04/23 23:59 23:59 23:59 Intake Total 720 / 720 1540 / 1540 120 / 120 Output Total 400 / 400 900 / 900 700 / 700 Balance 320 / 320 640 / 640 -580 / -580 Lab / Micro Data 06/04/23 05:35 06/04/23 05:35 Labs: Laboratory Results - last 24 hr 06/03/23 10:58: POC Glucose 124 H 06/03/23 15:46: POC Glucose 135 H 06/03/23 20:13: POC Glucose 146 H 06/04/23 05:35: WBC 6.5, RBC 3.59 L, Hgb 9.9 L, Hct 31.3 L, MCV 87.2, MCH 27.6, MCHC 31.6 L, RDW Std Deviation 42.3, RDW Coeff of Alexa 13.3, Plt Count 214, MPV 10.2, Immature Gran % (Auto) 0.600, Neut % (Auto) 69.5, Lymph % (Auto) 17.1 L, [place] % (Auto) 8.8, Eos % (Auto) 3.7, Baso % (Auto) 0.3, Absolute Neuts (auto) 4.5, Absolute Lymphs (auto) 1.11, Nucleated RBC % 0, Sodium 137, Potassium 4.6, Chloride 108 H, Carbon Dioxide 23.0, Anion Gap 6, BUN 79 H, Creatinine 4.22 H, Estim Creat Clear Calc 16.75, Est GFR (MDRD) Af Amer 18 L, Est GFR (MDRD) Non-Af 15 L, BUN/Creatinine Ratio 18.7, Glucose 104, Calcium 8.5 06/04/23 06:25: POC Glucose 121 H Micro: Microbiology 05/31/23 12:17 Tissue - Knee Gram Stain - Final 05/31/23 12:17 Tissue - Knee Wound Culture - Final Pseudomonas aeruginosa Meth. resistant Staph. aureus 05/31/23 12:15 Tissue - Knee Gram Stain - Final 05/31/23 12:15 Tissue - Knee Wound Culture - Final Meth. resistant Staph. aureus 05/31/23 11:55 Tissue - Suprapatellar Pouch Gram Stain - Final 05/31/23 11:55 Tissue - Suprapatellar Pouch Wound Culture - Final Meth. resistant Staph. aureus 05/19/23 07:17 Swab (Method) Nasal Screen MRSA/MSSA - Final Physical Exam Narrative Vital signs stable and afebrile. SCDs and JYOTI hose are in place bilaterally Patient is able to plantarflex and dorsiflex actively. Sensation is intact to light touch to saphenous, sural, superficial and deep peroneal, and tibial distribution. Wound VAC currently in place with some mild fluid in the tube with fluid in canister. There is also some blood surrounding the sponge on the dressing Negative Homans bilaterally, negative signs and symptoms of DVT. Const alert, oriented x3 and no apparent distress Extremity Extremity Narrative: Right lower extremity: Wound VAC is intact. Minimal surrounding erythema. There is some fluid along the tube and a small amount of fluid in the canister no active fluid is draining in the tube. There is also some blood around the sponge. Sensations intact to light touch saphenous, sural, superficial peroneal, deep peroneal, and tibial distributions Motors intact EHL, DF, PF calves are soft and supple Assessment & Plan Assessment/Plan (1) Status post revision of total replacement of right knee: PLAN: 1. S/P revision right total knee replacement patella revision and p olyethylene exchange with scarred excision and quadricepplasty POD #4 2. Continue Pain Medications: Tylenol and oxycodone 3. DVT Prophylaxis: Take 81 mg aspirin twice daily for 4 weeks postoperatively for DVT prophylaxis. Patient denies past history of DVT or pulmonary embolism. 4. PT/OT: Weightbearing as tolerated with walker. We are limiting flexion to get skin rest. 5. H & H: 9.9/, asymptomatic. Postoperative anemia secondary to acute blood loss from surgery without any intra operative complications. 6. Continue postop medical management per medicine: Patient does have stable chronic kidney disease. Patient's chronic kidney disease did worsen initially. Starting to improve. Appreciate input from medicine service and renal consultation. At this time we will continue to avoid dehydration. NSAIDs have been avoided. 7. Encouraged Incentive Spirometry 8. Postoperative drainage: Wound care nurse is following. Working on obtaining approval from [place] [employer]'s Comp. for VAC on discharge. We will continue with the wound VAC with continuous setting at 75 mmHg with twice weekly dressing changes. At this time patient will likely need dressing change Monday patient will require home health for dressing changes and physical therapy. 9. P JI: Patient has Pseudomonas aeruginosa and MRSA positive cultures. Staff is consistent with original infectious etiology. May likely be the cause of his continued residual stiffness and pain. Considering retained implants and patient has had numerous surgeries and desires to avoid further surgical intervention he would likely be a candidate for chronic suppressive antibiotics. We will proceed with a course of IV antibiotics. Currently on IV meropenem. We will need [employer]'s Comp[employer] approval prior to discharge. PICC line will be ordered for tomorrow June 05, 2023. 10. Disposition: Pending infectious disease recommendations on antibiotics now that we have more definitive organisms we will await ID input early next week and work on arranging antibiotics so patient can be discharged. Patient will require home health for changes. Case management currently involved for appropriate discharge planning. Hopeful for possible discharge home with home health early next week as long as patient is stable. Continue to focus and work on physical therapy while in the hospital. We are also checking with patient's primary care physician as he is on chronic Percocet for pain control. We are making sure that we are able to prescribe postoperative pain medications. This was discussed with the patient. He voiced understanding and agreement. This dictation was created using voice recognition software. Phonetic and/or grammatical errors may exist. [facility] Office:
[2023-06-04] MEDS: Bisacodyl 5 MG Tablet 10 MG PO (10:56)
[2023-06-04 11:30] VITALS: BP 160/70; PULSE 72; RESP 16; TEMP 36.6; O2SAT 97
[2023-06-04 11:38] LABS: Bedside Glucose 139 mg/dL (74-106)
--- NOTE | 2023-06-04 12:20 | NURSING ---
talked with dynamic access regarding picc line, clarified the order is for picc to be placed tomorrow am 06/05/23. 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
[2023-06-04] MEDS: Doxycycline 100 MG CAPSULE PO ×2 (12:26→22:53)
[2023-06-04] MEDS: Linezolid 600 MG 600 MG/300 ML BAG 200 MG IV ×2 (13:10→23:12)
[2023-06-04] MEDS: Ondansetron 4 MG/2 ML Vial IV ×2 (14:09→22:44)
[2023-06-04 15:37] VITALS: BP 162/77; PULSE 74; RESP 16; TEMP 36.6; O2SAT 99
[2023-06-04] MEDS: Bisacodyl 10 MG Suppository RC (16:14)
[2023-06-04 16:41] LABS: Bedside Glucose 144 mg/dL (74-106)
[2023-06-04] MEDS: Montelukast 10 MG Tablet PO (17:03)
[2023-06-04 22:05] VITALS: BP 167/67; PULSE 80; RESP 18; TEMP 36.9; O2SAT 100
[2023-06-04] MEDS: Pravastatin 40 MG Tablet PO (22:48)
[2023-06-05] VITALS (9 sets, daily range): BP systolic 146–177; BP diastolic 59–74; PULSE 74–81; RESP 16–18; TEMP 36.8–36.9; O2SAT 98–100
[2023-06-05 00:37] LABS: Bedside Glucose 138 mg/dL (74-106)
[2023-06-05 04:31] LABS: Absolute Lymphocyte Count 0.64 X10^3/uL (0.83-4.51); Absolute Neutrophil Count 7.2 X10^3/uL (2.0-7.7); Basophil# 0.01 X10^3/uL; Basophil% 0.1 % (0-1); Eosinophils% 2.3 % (0-5); Hematocrit 32.4 % (40-54); Hemoglobin 10.2 g/dL (13.0-16.5); Lymphocyte # 0.64 X10^3/ul (0.83-4.51); Lymphocyte % 7.4 % (19-41); Mean Corp Hgb Conc 31.5 g/dL (32-36); Mean Corpuscular Hgb 27.2 pg (27.0-32.0); Mean Corpuscular Volume 86.4 fL (80-94); Mean Platelet Vol. 9.4 fl (6.2-12.0); Monocyte# 0.51 X10^3/uL; Monocyte% 5.9 % (0-10); NRBC Flagged by Analyzer 0 % (0-5); Neutrophil % 83.6 % (47-70); Platelet Count 235 K/mm3 (150-450); RBC Distribution Width CV 13.3 % (11.6-14.6); RBC Distribution Width SD 41.9 fl (35.1-43.9); Red Blood Count 3.75 M/mm3 (4.6-6.2); White Blood Count 8.6 K/mm3 (4.4-11.0)
[2023-06-05 04:58] LABS: Anion Gap 3 (5-15); BUN 86 mg/dL (7-18); BUN/Creat Ratio 21.1 RATIO (10-20); Calcium,Total 8.3 mg/dL (8.5-10.1); Chloride 109 mmol/L (98-107); Creatinine, Serum 4.08 mg/dL (0.70-1.30); EST Glomerular Filtration Rate 16 mL/min (>60); Est Glom Filt Rate - Afr Amer 19 mL/min (>60); Estimated Creatinine Clearance 17.33 ml/min; Glucose 127 mg/dL (74-106); Potassium 5.2 mmol/L (3.5-5.1); Sodium Level 137 mmol/L (136-145)
[2023-06-05] MEDS: Acetaminophen 500 MG Tablet 1000 MG PO ×3 (05:25→21:34)
--- NOTE | 2023-06-05 06:46 | PN.ORTHO_ITS ---
Subjective Subjective The patient was sitting in bed upon examination. Patient denies any chest pain, shortness of breath, dizziness, lightheadedness, nausea or vomiting, or calf pain. Pain is controlled on medications. No adverse overnight events. Patient overall is doing well this morning. He tolerated therapy yesterday well. We are waiting on final recommendations from infectious disease for discharge planning. Today patient will have change of the wound VAC dressing. We have also continued to follow kidney function in which consult was obtained. It does appear it is slowly trending down. Patient has no complaints this morning. We will also need PICC line established prior to discharge planning. Objective Data Objective Data Vital Signs: Vital Signs Temp Pulse Resp BP Pulse Ox O2 Del Method O2 Flow Rate 98.3 F 80 18 171/71 H 99 Room Air 3 06/05/23 05:20 06/05/23 05:20 06/05/23 05:20 06/05/23 05:20 06/05/23 05:20 06/05/23 05:05/31/23 15:49 Oxygen Flow Rate (L/min) 3 Oxygen Delivery Method Room Air Weight: 111 kg Body Mass Index (BMI) 38.3 Intake & Output: Intake and Output for Last 24 Hours 06/03/23 06/04/23 06/05/23 23:59 23:59 23:59 Intake Total 1540 / 1540 1330 / 1330 360 / 360 Output Total 900 / 900 1100 / 1900 800 / 800 Balance 640 / 640 230 / -570 -440 / -440 Lab / Micro Data 06/05/23 04:15 06/05/23 04:15 Labs: Laboratory Results - last 24 hr 06/04/23 05:35: WBC 6.5, RBC 3.59 L, Hgb 9.9 L, Hct 31.3 L, MCV 87.2, MCH 27.6, MCHC 31.6 L, RDW Std Deviation 42.3, RDW Coeff of Alexa 13.3, Plt Count 214, MPV 10.2, Immature Gran % (Auto) 0.600, Neut % (Auto) 69.5, Lymph % (Auto) 17.1 L, [place] % (Auto) 8.8, Eos % (Auto) 3.7, Baso % (Auto) 0.3, Absolute Neuts (auto) 4.5, Absolute Lymphs (auto) 1.11, Nucleated RBC % 0, Sodium 137, Potassium 4.6, Chloride 108 H, Carbon Dioxide 23.0, Anion Gap 6, BUN 79 H, Creatinine 4.22 H, Estim Creat Clear Calc 16.75, Est GFR (MDRD) Af Amer 18 L, Est GFR (MDRD) Non-Af 15 L, BUN/Creatinine Ratio 18.7, Glucose 104, Calcium 8.5 06/04/23 06:25: POC Glucose 121 H 06/04/23 11:00: POC Glucose 139 H 06/04/23 16:12: POC Glucose 144 H 06/04/23 22:15: POC Glucose 138 H 06/05/23 04:15: WBC 8.6, RBC 3.75 L, Hgb 10.2 L, Hct 32.4 L, MCV 86.4, MCH 27.2, MCHC 31.5 L, RDW Std Deviation 41.9, RDW Coeff of Alexa 13.3, Plt Count 235, MPV 9.4, Immature Gran % (Auto) 0.700, Neut % (Auto) 83.6 H, Lymph % (Auto) 7.4 L, [place] % (Auto) 5.9, Eos % (Auto) 2.3, Baso % (Auto) 0.1, Absolute Neuts (auto) 7.2, Absolute Lymphs (auto) 0.64 L, Nucleated RBC % 0, Sodium 137, Potassium 5.2 H, Chloride 109 H, Carbon Dioxide 25.0, Anion Gap 3 L, BUN 86 H, Creatinine 4.08 H, Estim Creat Clear Calc 17.33, Est GFR (MDRD) Af Amer 19 L, Est GFR (MDRD) Non-Af 16 L, BUN/Creatinine Ratio 21.1 H, Glucose 127 H, Calcium 8.3 L Micro: Microbiology 05/31/23 12:17 Tissue - Knee Gram Stain - Final 05/31/23 12:17 Tissue - Knee Wound Culture - Final Pseudomonas aeruginosa Meth. resistant Staph. aureus 05/31/23 12:15 Tissue - Knee Gram Stain - Final 05/31/23 12:15 Tissue - Knee Wound Culture - Final Meth. resistant Staph. aureus 05/31/23 11:55 Tissue - Suprapatellar Pouch Gram Stain - Final 05/31/23 11:55 Tissue - Suprapatellar Pouch Wound Culture - Final Meth. resistant Staph. aureus 05/19/23 07:17 Swab (Method) Nasal Screen MRSA/MSSA - Final Physical Exam Narrative Vital signs stable and afebrile. SCDs and JYOTI hose are in place bilaterally Patient is able to plantarflex and dorsiflex actively. Sensation is intact to light touch to saphenous, sural, superficial and deep peroneal, and tibial distribution. Wound VAC in place with drainage stable in canister and tubing. Plan for dressing change today by wound nurse Negative Homans bilaterally, negative signs and symptoms of DVT. Const alert, oriented x3 and no apparent distress Extremity Extremity Narrative: Right lower extremity: Wound VAC is intact. Minimal surrounding erythema. There is some fluid along the tube and a small amount of fluid in the canister no active fluid is draining in the tube. There is also some blood around the sponge. Sensations intact to light touch saphenous, sural, superficial peroneal, deep peroneal, and tibial distributions Motors intact EHL, DF, PF calves are soft and supple Assessment & Plan Assessment/Plan (1) Status post revision of total replacement of right knee: PLAN: 1. S/P revision right total knee replacement patella revision and polyethylene exchange with scarred excision and quadricepplasty POD #5 2. Continue Pain Medications: Tylenol and oxycodone 3. DVT Prophylaxis: Take 81 mg aspirin twice daily for 4 weeks postoperatively for DVT prophylaxis. Patient denies past history of DVT or pulmonary embolism. 4. PT/OT: Weightbearing as tolerated with walker. We are limiting flexion to get skin rest. 5. H & H: 10.2/32.4, asymptomatic. Postoperative anemia secondary to acute blood loss from surgery without any intra operative complications. 6. Continue postop medical management per medicine: Patient does have stable chronic kidney disease. Patient's chronic kidney disease did worsen initially. Starting to improve. Appreciate input from medicine service and renal consultation. At this time we will continue to avoid dehydration. NSAIDs have been avoided. Creatinine has been slowly trending down and currently 4.08 7. Encouraged Incentive Spirometry 8. Postoperative drainage: Wound care nurse is following. Working on obtaining approval from [employer] [place] [employer]s Comp. for VAC on discharge. We will continue with the wound VAC with continuous setting at 75 mmHg with twice weekly dressing changes. At this time patient will likely need dressing change Monday patient will require home health for dressing changes and physical therapy. 9. P JI: Patient has Pseudomonas aeruginosa and MRSA positive cultures. Staff is consistent with original infectious etiology. May likely be the cause of his continued residual stiffness and pain. Considering retained implants and patient has had numerous surgeries and desires to avoid further surgical intervention he would likely be a candidate for chronic suppressive antibiotics. We will proceed with a course of IV antibiotics. Currently on IV meropenem. We will need [employer]. approval prior to discharge. PICC line will be ordered for tomorrow June 05, 2023. 10. Disposition: Pending infectious disease recommendations on antibiotics now that we have more definitive organisms we will await ID input early next week and work on arranging antibiotics so patient can be discharged. Patient will re quire home health for changes. Case management currently involved for appropriate discharge planning. Hopeful for possible discharge home with home health early next week as long as patient is stable. Continue to focus and work on physical therapy while in the hospital. We did reach out to primary care physician and they are wishing for the surgeon to controlled medications initially postoperatively for the first 6 weeks. This was discussed with the patient. He voiced understanding and agreement. This dictation was created using voice recognition software. Phonetic and/or grammatical errors may exist.
[2023-06-05] MEDS: hydrALAZINE 20 MG/ML Vial 10 MG IV (06:50)
[2023-06-05 06:57] LABS: Bedside Glucose 99 mg/dL (74-106)
[2023-06-05] MEDS: Ondansetron 4 MG/2 ML Vial IV (07:39)
[2023-06-05] MEDS: Ensure Surgery 237 ML LIQUID PO ×2 (08:58→12:44)
[2023-06-05] MEDS: Senna/Docusate Sodium 1 Tablet 2 TABLET PO ×2 (08:58→21:34)
[2023-06-05] MEDS: Famotidine 20 MG Tablet PO (08:59)
[2023-06-05] MEDS: Cholecalciferol (VIT D3) 25 MCG TABLET (1,000 UNITS) PO (08:59)
[2023-06-05] MEDS: Insulin Lispro 100 UNIT/ML INSULN.PEN 10 UNIT SC (08:59)
[2023-06-05] MEDS: Polyethylene Glycol 3350 17 GM PACKET PO (08:59)
[2023-06-05] MEDS: Pantoprazole Sodium 20 MG Tablet PO (08:59)
[2023-06-05] MEDS: Doxycycline 100 MG CAPSULE PO (08:59)
[2023-06-05] MEDS: Multivitamins,Ther W-Minerals Tablet 1 TABLET PO (08:59)
[2023-06-05] MEDS: Aspirin 81 MG TAB.CHEW PO ×2 (09:00→21:32)
[2023-06-05] MEDS: Insulin Glargine-YFGN 100 UNIT/ML Pen 30 UNIT SC (09:03)
[2023-06-05] MEDS: Linezolid 600 MG 600 MG/300 ML BAG 200 MG IV (09:05)
--- NOTE | 2023-06-05 09:08 | WOUNDNOTE ---
wound photo: right knee
[2023-06-05] MEDS: Losartan Potassium 50 MG Tablet PO (10:37)
[2023-06-05 11:29] LABS: Bedside Glucose 134 mg/dL (74-106)
--- NOTE | 2023-06-05 12:58 | PCM.PN.HOSP ---
Reason for Visit Reason for Visit: Diagnoses Type 2 diabetes mellitus without complications (05/31/23) Essential (primary) hypertension (05/31/23) Atherosclerotic heart disease of [place] coronary artery without angina pectoris (05/31/23) Chronic obstructive pulmonary disease, unspecified (05/31/23) Gastro-esophageal reflux disease without esophagitis (05/31/23) Staphylococcal arthritis, right knee (05/31/23) Pyogenic arthritis, unspecified (05/31/23) Acute kidney failure, unspecified (05/31/23) Encounter for other preprocedural examination (05/31/23) Presence of right artificial knee joint (05/31/23) Subjective Subjective 1 lumbar right knee periprosthetic joint infection Objective Data Objective Data Vital Signs: Vital Signs Temp Pulse Resp BP Pulse Ox O2 Del Method O2 Flow Rate 98.4 F 81 16 171/59 H 99 Room Air 3 06/05/23 11:16 06/05/23 11:16 06/05/23 11:16 06/05/23 11:16 06/05/23 11:16 06/05/23 11:16 05/31/23 15:49 Oxygen Flow Rate (L/min) 3 Oxygen Delivery Method Room Air Weight: 244 lb 11.41 oz Body Mass Index (BMI) 38.3 Intake & Output: Intake and Output for Last 24 Hours 06/03/23 06/04/23 06/05/23 23:59 23:59 23:59 Intake Total 1540 / 1540 1330 / 1330 920 / 920 Output Total 900 / 900 1100 / 1900 800 / 800 Balance 640 / 640 230 / -570 120 / 120 Lab / Micro Data 06/05/23 04:15 06/05/23 04:15 Labs: Laboratory Results - last 24 hr 06/04/23 16:12: POC Glucose 144 H 06/04/23 22:15: POC Glucose 138 H 06/05/23 04:15: WBC 8.6, RBC 3.75 L, Hgb 10.2 L, Hct 32.4 L, MCV 86.4, MCH 27.2, MCHC 31.5 L, RDW Std Deviation 41.9, RDW Coeff of Alexa 13.3, Plt Count 235, MPV 9.4, Immature Gran % (Auto) 0.700, Neut % (Auto) 83.6 H, Lymph % (Auto) 7.4 L, [place] % (Auto) 5.9, Eos % (Auto) 2.3, Baso % (Auto) 0.1, Absolute Neuts (auto) 7.2, Absolute Lymphs (auto) 0.64 L, Nucleated RBC % 0, Sodium 137, Potassium 5.2 H, Chloride 109 H, Carbon Dioxide 25.0, Anion Gap 3 L, BUN 86 H, Creatinine 4.08 H, Estim Creat Clear Calc 17.33, Est GFR (MDRD) Af Amer 19 L, Est GFR (MDRD) Non-Af 16 L, BUN/Creatinine Ratio 21.1 H, Glucose 127 H, Calcium 8.3 L 06/05/23 06:36: POC Glucose 99 06/05/23 10:55: POC Glucose 134 H Micro: Microbiology 05/31/23 12:17 Tissue - Knee Gram Stain - Final 05/31/23 12:17 Tissue - Knee Wound Culture - Final Pseudomonas aeruginosa Meth. resistant Staph. aureus 05/31/23 12:17 Tissue - Knee Anaerobic Culture - Final No growth in 5 days. 05/31/23 12:15 Tissue - Knee Gram Stain - Final 05/31/23 12:15 Tissue - Knee Wound Culture - Final Meth. resistant Staph. aureus 05/31/23 12:15 Tissue - Knee Anaerobic Culture - Final No growth in 5 days. 05/31/23 11:55 Tissue - Suprapatellar Pouch Gram Stain - Final 05/31/23 11:55 Tissue - Suprapatellar Pouch Wound Culture - Final Meth. resistant Staph. aureus 05/31/23 11:55 Tissue - Suprapatellar Pouch Anaerobic Culture - Final No growth in 5 days. 05/19/23 07:17 Swab (Method) Nasal Screen MRSA/MSSA - Final Physical Exam Narrative Seen and examined. Patient complaining of mild right knee pain. Had a large bowel movement in the morning today. Had multiple 5 surgeries in the past. No fever General: Alert, Oriented x3, Cooperative HEENT: Atraumatic, PERRLA, EOMI, Normocephalic Oral: Oral mucosa moist. No Gingival or Mucosal Lesions/ Ulcerations Neck: Supple, No JVD, Negative Carotid Bruits Lungs: Air entry diminished in bilateral lung bases. No crepitation/rhonchi Cardiovascular: Regular rate, Regular Rhythm, Normal S1, Normal S2, No murmurs Abdomen: Bowel Sounds Present, Soft, Non Tender, Non-Distended : No renal angle tenderness. No suprapubic tenderness. Extremities: No edema, Capillary Refill Less than 3 Seconds Skin: No rashes, No breakdown Musculoskeletal: Right knee has surgical dressing, Carlos A wrap bandage and ice bag. No Tenderness to Palpation of other joints or Extremities Neurological: Cranial nerves II-XII grossly intact, DTR 2+/4 and Symmetrical, Neuro grossly intact Psych/Mental Status: Normal Affect, Appropriate. Assessment & Plan Assessment/Plan (1) Status post revision of total replacement of right knee: (2) Septic arthritis of knee, right: QUALIFIERS: Septic arthritis organism: staphylococcal Qualified Code(s): M00.061 - Staphylococcal arthritis, right knee PLAN: Plan 1. Septic arthritis/periprosthetic infection of right knee, due to MRSA and Pseudomonas status post revision of total replacement of right knee: Patient had initial right total knee arthroplasty in 2017 and shortly thereafter had right periprosthetic knee infection. He had multiple total of 5 revisions. Operative cultures growing Pseudomonas rare growth and rare gram-positive organism. No fever or chills. Patient initially on cefazolin and was started on doxycycline. Antibiotic changed to IV meropenem adjusted to the kidney function. 06/05: Patient was started on linezolid for MRSA after discussion with ID yesterday. Vancomycin not good option because of MAICO. 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 Cueva -No complications -JYOTI titus -Scheduled Tylenol, pain control -Aspirin 81 mg twice daily 06/03: Avoid NSAIDs for pain control Aspirin twice daily for 4 weeks postop. Weightbearing as tolerated. Wound VAC on discharge with twice weekly dressing changes and wound care #Intraoperative knee cultures with Pseudomonas and gram-positive cocci -Patient was on Doxy but is growing Pseudomonas resistant to Zosyn, ID on board and switched him to meropenem -We will continue to follow cultures as there is also gram-positive cocci. Linezolid for MRSA coverage. Vancomycin not a good choice for MAICO. #MAICO on likely CKD stage IIIb -Last creatinine 2.43 on 05/19/2023 however no previous values since 2019 -Creatinine today 3.47, BUN 56 -DC all NSAIDs/avoid all NSAIDs -06/03: Kidney function continues to worsen, monitor I's and O's and daily weights, kidney ultrasound shows bladder wall thickening probably cystitis or chronic bladder outlet obstruction. Shoulder Sawyer is consulting. Hold for lethargy/sedation or respiratory rate less than 10/min nephrotoxic medications. UA shows protein high otherwise normal specific gravity, nitrite and LE negative. WBC 0-5 cells. Hypertension: Blood pressure is elevated. Patient not candidate for CARLOS A/ARB or diuretic. Started on amlodipine and hydralazine. #Type 2 diabetes mellitus -Glucose checks and sliding scale insulin -Patient had several low blood glucoses, will decrease 80 units of glargine twice daily to 60 units twice daily and decrease the 30 twice daily of short acting to 20 twice daily, low glucoses despite home regimen may be due to MAICO, continue to monitor and adjust -06/03: Insulin dose adjusted. Glucose 113. Insulin and Humalog insulin further decreased with holding parameters 06/04: Creatinine 4.22. Estimated creatinine clearance 16 mL/min. #Coronary artery disease -Continue aspirin and statin #GERD -Continue Protonix #COPD -Does not use any inhalers at home at present, will add albuterol as needed #DVT ppx: Aspirin twice daily Microbiology Past 72 Hours 05/31/23 12:17 Tissue - Knee Gram Stain - Final 05/31/23 12:17 Tissue - Knee Wound Culture - Final Pseudomonas aeruginosa Meth. resistant Staph. aureus 05/31/23 12:17 Tissue - Knee Anaerobic Culture - Final No growth in 5 days. 05/31/23 12:15 Tissue - Knee Gram Stain - Final 05/31/23 12:15 Tissue - Knee Wound Culture - Final Meth. resistant Staph. aureus 05/31/23 12:15 Tissue - Knee Anaerobic Culture - Final No growth in 5 days. 05/31/23 11:55 Tissue - Suprapatellar Pouch Gram Stain - Final 05/31/23 11:55 Tissue - Suprapatellar Pouch Wound Culture - Final Meth. resistant Staph. aureus 05/31/23 11:55 Tissue - Suprapatellar Pouch Anaerobic Culture - Final No growth in 5 days. Laboratory Results 06/04/23 16:12: POC Glucose 144 H 06/04/23 22:15: POC Glucose 138 H 06/05/23 04:15: WBC 8.6, RBC 3.75 L, Hgb 10.2 L, Hct 32.4 L, MCV 86.4, MCH 27.2, MCHC 31.5 L, RDW Std Deviation 41.9, RDW Coeff of Alexa 13.3, Plt Count 235, MPV 9.4, Immature Gran % (Auto) 0.700, Neut % (Auto) 83.6 H, Lymph % (Auto) 7.4 L, [place] % (Auto) 5.9, Eos % (Auto) 2.3, Baso % (Auto) 0.1, Absolute Neuts (auto) 7.2, Absolute Lymphs (auto) 0.64 L, Nucleated RBC % 0, Sodium 137, Potassium 5.2 H, Chloride 109 H, Carbon Dioxide 25.0, Anion Gap 3 L, BUN 86 H, Creatinine 4.08 H, Estim Creat Clear Calc 17.33, Est GFR (MDRD) Af Amer 19 L, Est GFR (MDRD) Non-Af 16 L, BUN/Creatinine Ratio 21.1 H, Glucose 127 H, Calcium 8.3 L 06/05/23 06:36: POC Glucose 99 06/05/23 10:55: POC Glucose 134 H Charges/Coding Visit Charges Inpatient E&M: 40856 Subs Hosp L2
[2023-06-05] MEDS: amLODIPine 10 MG Tablet PO (13:15)
--- NOTE | 2023-06-05 14:29 | PN.RENAL_ITS ---
Subjective Subjective Following for MAICO on CKD Patient resting quietly in bed. No complaints. Reports good appetite. No overnight events. Objective Data Objective Data Vital Signs: Vital Signs Temp Pulse Resp BP Pulse Ox O2 Del Method O2 Flow Rate 98.4 F 81 16 171/59 H 99 Room Air 3 06/05/23 11:16 06/05/23 11:16 06/05/23 11:16 06/05/23 11:16 06/05/23 11:16 06/05/23 13:58 05/31/23 15:49 Oxygen Flow Rate (L/min) 3 Oxygen Delivery Method Room Air Weight: 111 kg Body Mass Index (BMI) 38.3 Intake & Output: Intake and Output for Last 24 Hours 06/03/23 06/04/23 06/05/23 23:59 23:59 23:59 Intake Total 1540 / 1540 1330 / 1330 920 / 920 Output Total 900 / 900 1100 / 1900 800 / 800 Balance 640 / 640 230 / -570 120 / 120 Lab / Micro Data 06/05/23 04:15 06/05/23 04:15 Labs: Laboratory Results - last 24 hr 06/04/23 16:12: POC Glucose 144 H 06/04/23 22:15: POC Glucose 138 H 06/05/23 04:15: WBC 8.6, RBC 3.75 L, Hgb 10.2 L, Hct 32.4 L, MCV 86.4, MCH 27.2, MCHC 31.5 L, RDW Std Deviation 41.9, RDW Coeff of Alexa 13.3, Plt Count 235, MPV 9.4, Immature Gran % (Auto) 0.700, Neut % (Auto) 83.6 H, Lymph % (Auto) 7.4 L, [place] % (Auto) 5.9, Eos % (Auto) 2.3, Baso % (Auto) 0.1, Absolute Neuts (auto) 7 .2, Absolute Lymphs (auto) 0.64 L, Nucleated RBC % 0, Sodium 137, Potassium 5.2 H, Chloride 109 H, Carbon Dioxide 25.0, Anion Gap 3 L, BUN 86 H, Creatinine 4.08 H, Estim Creat Clear Calc 17.33, Est GFR (MDRD) Af Amer 19 L, Est GFR (MDRD) Non-Af 16 L, BUN/Creatinine Ratio 21.1 H, Glucose 127 H, Calcium 8.3 L 06/05/23 06:36: POC Glucose 99 06/05/23 10:55: POC Glucose 134 H Micro: Microbiology 05/31/23 12:17 Tissue - Knee Gram Stain - Final 05/31/23 12:17 Tissue - Knee Wound Culture - Final Pseudomonas aeruginosa Meth. resistant Staph. aureus 05/31/23 12:17 Tissue - Knee Anaerobic Culture - Final No growth in 5 days. 05/31/23 12:15 Tissue - Knee Gram Stain - Final 05/31/23 12:15 Tissue - Knee Wound Culture - Final Meth. resistant Staph. aureus 05/31/23 12:15 Tissue - Knee Anaerobic Culture - Final No growth in 5 days. 05/31/23 11:55 Tissue - Suprapatellar Pouch Gram Stain - Final 05/31/23 11:55 Tissue - Suprapatellar Pouch Wound Culture - Final Meth. resistant Staph. aureus 05/31/23 11:55 Tissue - Suprapatellar Pouch Anaerobic Culture - Final No growth in 5 days. 05/19/23 07:17 Swab (Method) Nasal Screen MRSA/MSSA - Final Physical Exam Narrative Alert oriented x3, no apparent distress Lung sounds clear anteriorly and posteriorly no wheezes rhonchi rales noted S1, S2, RRR Abdomen soft, nontender No significant lower extremity edema Assessment & Plan Assessment/Plan (1) Acute kidney injury: PLAN: MAICO superimposed on CKD. Patient has underlying CKD, most likely due to diabetic nephropathy. Most recent creatinine prior to admission was 2.43 05/19/2023. Admitted with septic arthritis of right knee. Creatinine 3.47 on admission, peaked at 4.4 mg/dL on 06/03 and today his creatinine has slightly improved to 4.08 mg/dL. Patient is nonoliguric, appears near euvolemic. No acute indication for QUALITY CONTROL. He is hemodynamically stable, his urine output has improved, no significant acidosis and electrolytes are fine. UA on admission negative leukocyte Estrace, no RBC, 25 occult blood, urine protein 500. Will check UPC. Potassium is 5.2. Add low potassium diet restrictions. Antibiotics per ID, Dapto and meropenem Blood pressures elevated on amlodipine, hydralazine. Meds adjusted today. Will monitor blood pressure trends. We will arrange for hospital follow-up at time of discharge.
--- NOTE | 2023-06-05 14:55 | PCM.PN.ID ---
Physical Exam Narrative Feeling ok, knee pain improving, no fever. Some n/v earlier, doing better now Const alert and no apparent distress General Appearance: cooperative Resp normal air movement and clear to auscultation bilaterally Cardio regular rate and regular rhythm GI soft to palpation, non-tender and non-distended Skin no rashes or lesions noted Skin Narrative: R knee bandaged ID ID: Route of nutrition/ use of supplements: [] Nutritional Intake: [] IV Site: [] Mena Catheter: [] Assessment & Plan Assessment/Plan (1) Infection of prosthetic right knee joint: PLAN: Taken to OR 05/31/[address] Cueva for R knee revision with patella revision and poly exchange. Surg cx with MRSA and PsA. Now on linezolid and meropenem. Will change to dapto/vance for 6 weeks total course, stop date 07/16/23 with weekly bmp, cbc, LFT, CK, and esr. Picc in place. ID followup in 2 weeks. Will follow, thank you, d/w field nurse case manager and wrote rx
[2023-06-05] MEDS: oxyCODONE 5 MG Tablet PO (15:02)
--- NOTE | 2023-06-05 16:00 | CASEMGMT ---
Addendum entered by Placido [place] 06/06/23 10:06: Per Gissel, pt was only approved for 2 day In-patient stay. She states she will do a C-9 once pt is discharged to get approval for remainder of In-pt days. Narcisa Lama/, notified. She states she will reach out to Gissel to discuss this further. Addendum entered by Placido [place] 06/05/23 20:43: Final cx results and updated PN from ID faxed to Gissel @ [facility] also. Original Note: RN LASHAWN NOTE: 1600: Scripts for [address] Campuzano: 1)daptomycin 750 mg IV Q 48 hrs. 2) meropenem IV 500 mg Q 12 hrs ADRIANA HARDIN to room. Introduced self and role. Pt aware he will discharging home on IV atb's. Discussed HHC and infusion companies and process and pt provided w/list of infusion co options. He confirms he still wishes to d/c home and to do IV atb infusion in the home. He chooses [facility]. Call to Sophie @ [facility] infusion intake. She was made are C-9 approval is pending for home infusion and that HHC is set up w/[facility]. She states to send referral to them so they can start the process. Referral packet faxed to [facility] at this time, as [facility] is not working, which also included PICC insertion, ID notes from today, Scripts for IV atb's x 2, and cx results. Call to Gissel @ [facility]. She was made aware C-9 will need to be re-submitted for IV atb's and also made aware updated/specific info for wound vac that needs updated on C-9. Gissel requests the scripts and specific wound vac info/updates needed to be faxed to her at this time. Same done. She states she will contact Erin or Kanwal @ [employer] and will do updated C-9 forms w/required codes. IV atb scripts faxed to [facility]. Joellen MATOS RN, CM
[2023-06-05] MEDS: Montelukast 10 MG Tablet PO (16:23)
[2023-06-05 16:54] LABS: Bedside Glucose 88 mg/dL (74-106)
[2023-06-05 20:37] LABS: Protein, Urine (Random) 484.5 mg/dL (<11.9); Protein:Creat Ratio 6188 mg/g CRE (0-200)
[2023-06-05] MEDS: hydrALAZINE 50 MG Tablet PO (21:32)
[2023-06-05] MEDS: Pravastatin 40 MG Tablet PO (21:34)
[2023-06-05 22:58] LABS: Bedside Glucose 78 mg/dL (74-106)
[2023-06-05 22:58] LABS: Bedside Glucose 77 mg/dL (74-106)
[2023-06-06] VITALS (7 sets, daily range): BP systolic 132–170; BP diastolic 61–79; PULSE 70–83; RESP 16–18; TEMP 36.8–37.3; O2SAT 96–98
[2023-06-06 04:46] LABS: Bedside Glucose 60 mg/dL (74-106)
[2023-06-06 05:13] LABS: Bedside Glucose 85 mg/dL (74-106)
[2023-06-06 06:35] LABS: Absolute Lymphocyte Count 1.01 X10^3/uL (0.83-4.51); Absolute Neutrophil Count 4.6 X10^3/uL (2.0-7.7); Basophil# 0.03 X10^3/uL; Basophil% 0.5 % (0-1); Eosinophil# 0.32 X10^3/uL; Eosinophils% 4.9 % (0-5); Hematocrit 28.2 % (40-54); Hemoglobin 9.2 g/dL (13.0-16.5); Lymphocyte # 1.01 X10^3/ul (0.83-4.51); Lymphocyte % 15.5 % (19-41); Mean Corp Hgb Conc 32.6 g/dL (32-36); Mean Corpuscular Hgb 28.6 pg (27.0-32.0); Mean Corpuscular Volume 87.6 fL (80-94); Mean Platelet Vol. 9.4 fl (6.2-12.0); Monocyte# 0.58 X10^3/uL; Monocyte% 8.9 % (0-10); NRBC Flagged by Analyzer 0 % (0-5); Neutrophil # 4.55 X10^3/uL (2.7-7.7); Neutrophil % 69.9 % (47-70); Platelet Count 222 K/mm3 (150-450); RBC Distribution Width CV 13.5 % (11.6-14.6); RBC Distribution Width SD 42.8 fl (35.1-43.9); Red Blood Count 3.22 M/mm3 (4.6-6.2); White Blood Count 6.5 K/mm3 (4.4-11.0)
[2023-06-06] MEDS: Acetaminophen 500 MG Tablet 1000 MG PO ×3 (06:43→21:45)
[2023-06-06 06:52] LABS: Anion Gap 3 (5-15); BUN 83 mg/dL (7-18); BUN/Creat Ratio 19.9 RATIO (10-20); Calcium,Total 8.2 mg/dL (8.5-10.1); Chloride 111 mmol/L (98-107); Creatinine, Serum 4.18 mg/dL (0.70-1.30); EST Glomerular Filtration Rate 15 mL/min (>60); Est Glom Filt Rate - Afr Amer 19 mL/min (>60); Estimated Creatinine Clearance 16.91 ml/min; Glucose 141 mg/dL (74-106); Potassium 4.6 mmol/L (3.5-5.1); Sodium Level 141 mmol/L (136-145)
[2023-06-06 07:03] LABS: CPK Total, Creatine Kinase 115 U/L (39-308)
[2023-06-06 07:03] LABS: Bedside Glucose 162 mg/dL (74-106)
[2023-06-06] MEDS: oxyCODONE 5 MG Tablet PO ×3 (07:55→21:50)
[2023-06-06] MEDS: Ensure Surgery 237 ML LIQUID PO (07:56)
--- NOTE | 2023-06-06 09:43 | CASEMGMT ---
ADRIANA HARDIN NOTE: ADRIANA HARDIN spoke w/Gissel @ [facility]. She states she has faxed a new C-9 requesting approval for IV atb infusion and w/the updated wound vac info to [facility] and has also left w/Erin, the ice platform supervisor @ [facility] and is awaiting return call. Gissel verifies she also faxed final cx results and ID PN from yesterday to [facility]. Sulma @ [facility] verifies she received the scripts for IV atb yesterday. She is aware we are waiting on approval from [employer] and once approval received and delivery of atb from [facility] arranged, then pt will be ready to discharge. Joellen MATOS RN, CM
--- NOTE | 2023-06-06 10:03 | PCM.PN.ID ---
Physical Exam Narrative Feeling better, minimal nausea. No fever. Const alert and no apparent distress General Appearance: cooperative Resp normal air movement and clear to auscultation bilaterally Cardio regular rate and regular rhythm GI soft to palpation, non-tender and non-distended Skin Skin Narrative: R knee wrapped ID ID: Route of nutrition/ use of supplements: [] Nutritional Intake: [] IV Site: [] Mena Catheter: [] Assessment & Plan Assessment/Plan (1) Infection of prosthetic right knee joint: PLAN: Taken to OR 05/31/[address] Cueva for R knee revision with patella revision and poly exchange. Surg cx with MRSA and PsA. On dapto/vance for 6 weeks total course, stop date 07/16/23 with weekly bmp, cbc, LFT, CK, and esr. Picc in place. ID followup in 2 weeks. MAICO stable today. Will follow
[2023-06-06] MEDS: Pantoprazole Sodium 20 MG Tablet PO (11:07)
[2023-06-06] MEDS: Aspirin 81 MG TAB.CHEW PO ×2 (11:08→21:44)
[2023-06-06] MEDS: Famotidine 20 MG Tablet PO (11:08)
[2023-06-06] MEDS: hydrALAZINE 50 MG Tablet PO ×2 (11:08→21:57)
[2023-06-06] MEDS: amLODIPine 10 MG Tablet PO (11:09)
[2023-06-06] MEDS: Cholecalciferol (VIT D3) 25 MCG TABLET (1,000 UNITS) PO (11:09)
[2023-06-06] MEDS: Multivitamins,Ther W-Minerals Tablet 1 TABLET PO (11:09)
[2023-06-06] MEDS: Insulin Lispro 100 UNIT/ML INSULN.PEN SC (11:18)
[2023-06-06] MEDS: Insulin Glargine-YFGN 100 UNIT/ML Pen 30 UNIT SC (11:19)
[2023-06-06] MEDS: Insulin Lispro 100 UNIT/ML INSULN.PEN 10 UNIT SC (11:20)
--- NOTE | 2023-06-06 13:14 | PN.ORTHO_ITS ---
Subjective Subjective Patient is s/p revision right sided total knee arthroplasty with Dr. Cueva. Patient resting comfortably in bed. Rates pain 6/ 10 at rest. With movement 8/10. States taking Tylenol and oxycodone as needed and ice help to relieve pain. Patient has been up with therapy. Walking with the assit of a walker. Afebrile, no chest pain, shortness of breath, negative calf pain/ erythema, and no other signs of DVT. PICC line placed yesterday. MAICO stable today. Objective Data Objective Data Vital Signs: Vital Signs Temp Pulse Resp BP Pulse Ox O2 Del Method O2 Flow Rate 98.3 F 70 18 170/61 H 97 Room Air 3 06/06/23 07:40 06/06/23 11:08 06/06/23 07:40 06/06/23 07:40 06/06/23 09:12 06/06/23 10:00 05/31/23 15:49 Oxygen Flow Rate (L/min) 3 Oxygen Delivery Method Room Air Weight: 111 kg Body Mass Index (BMI) 38.3 Intake & Output: Intake and Output for Last 24 Hours 06/04/23 06/05/23 06/06/23 23:59 23:59 23:59 Intake Total 1330 / 1330 1685 / 1685 360 / 360 Output Total 1100 / 1900 1250 / 1250 Balance 230 / -570 435 / 435 360 / 360 Lab / Micro Data 06/06/23 06:08 06/06/23 06:08 Labs: Laboratory Results - last 24 hr 06/05/23 16:21: POC Glucose 88 06/05/23 18:08: U Random Total Protein 484.5 H, Urine Creatinine 78.30, Protein/Creatinin Ratio 6188 H 06/05/23 21:22: POC Glucose 77 06/05/23 22:04: POC Glucose 78 06/06/23 04:27: POC Glucose 60 L 06/06/23 04:54: POC Glucose 85 06/06/23 06:08: WBC 6.5, RBC 3.22 L, Hgb 9.2 L, Hct 28.2 L, MCV 87.6, MCH 28.6, MCHC 32.6, RDW Std Deviation 42.8, RDW Coeff of Alexa 13.5, Plt Count 222, MPV 9.4, Immature Gran % (Auto) 0.300, Neut % (Auto) 69.9, Lymph % (Auto) 15.5 L, [place] % (Auto) 8.9, Eos % (Auto) 4.9, Baso % (Auto) 0.5, Absolute Neuts (auto) 4.6, Absolute Lymphs (auto) 1.01, Nucleated RBC % 0, Sodium 141, Potassium 4.6, Chloride 111 H, Carbon Dioxide 27.0, Anion Gap 3 L, BUN 83 H, Creatinine 4.18 H, Estim Creat Clear Calc 16.91, Est GFR (MDRD) Af Amer 19 L, Est GFR (MDRD) Non-Af 15 L, BUN/Creatinine Ratio 19.9, Glucose 141 H, Calcium 8.2 L, Total Creatine Kinase 115 06/06/23 06:44: POC Glucose 162 H Micro: Microbiology 05/31/23 12:17 Tissue - Knee Gram Stain - Final 05/31/23 12:17 Tissue - Knee Wound Culture - Final Pseudomonas aeruginosa Meth. resistant Staph. aureus 05/31/23 12:17 Tissue - Knee Anaerobic Culture - Final No growth in 5 days. 05/31/23 12:15 Tissue - Knee Gram Stain - Final 05/31/23 12:15 Tissue - Knee Wound Culture - Final Meth. resistant Staph. aureus 05/31/23 12:15 Tissue - Knee Anaerobic Culture - Final No growth in 5 days. 05/31/23 11:55 Tissue - Suprapatellar Pouch Gram Stain - Final 05/31/23 11:55 Tissue - Suprapatellar Pouch Wound Culture - Final Meth. resistant Staph. aureus 05/31/23 11:55 Tissue - Suprapatellar Pouch Anaerobic Culture - Final No growth in 5 days. 05/19/23 07:17 Swab (Method) Nasal Screen MRSA/MSSA - Final Physical Exam Narrative Patient resting comfortably in bed No signs of acute distress Satting well on room air Limb is warm to touch, Sensation intact throughout entire lower extremity, including saphenous, sural, superficial and deep peroneal, and tibial distribution. DP/PT pulses bounding. Dorsiflexion plantarflexion strength 5/5 Dressing wound VAC in place Calf nontender to palpation, no erythema, no edema. Negative Homans Assessment & Plan Assessment/Plan (1) Infection of prosthetic right knee joint: PLAN: 1. S/P revision right total knee replacement patella revision and polyethylene exchange with scarred excision and quadricepplasty POD #6 2. Continue Pain Medications: Tylenol and oxycodone 3. DVT Prophylaxis: Take 81 mg aspirin twice daily for 4 weeks postoperatively for DVT prophylaxis. Patient denies past history of DVT or pulmonary embolism. 4. PT/OT: Weightbearing as tolerated with walker. We are limiting flexion to get skin rest. 5. H & H: 9.2/28.4, asymptomatic. Postoperative anemia secondary to acute blood loss from surgery without any intra operative complications. begin ferrous sulfate and Fe supplements today and continue upon discharge. follow up with PCP. 6. Continue postop medical management per medicine: Patient does have stable chronic kidney disease. Patient's chronic kidney disease did worsen initially. Starting to improve. Appreciate input from medicine service and renal consultation. At this time we will continue to avoid dehydration. NSAIDs have been avoided. Creatinine has been slowly trending down. currently 4.18. MAICO st able today. 7. Encouraged Incentive Spirometry 8. Postoperative drainage: Wound care nurse is following. Working on obtaining approval from [place] [employer] for VAC on discharge. We will continue with the wound VAC with continuous setting at 75 mmHg with twice weekly dressing changes on Monday and . At this time patient will likely need dressing change , patient will require home health for dressing changes and physical therapy. 9. P JI: Patient has Pseudomonas aeruginosa and MRSA positive cultures. Staff is consistent with original infectious etiology. May likely be the cause of his continued residual stiffness and pain. Considering retained implants and patient has had numerous surgeries and desires to avoid further surgical intervention he would likely be a candidate for chronic suppressive antibiotics. We will proceed with a course of IV antibiotics. Currently on IV meropenem and daptomycin. We will need [employer] approval prior to discharge. PICC line placed. 10. Disposition: PICC line placed, and infectious disease final recommendations are daptomycin and meropenem IV x 6 weeks. with an ID follow up in 2 weeks. Patient will require home health for changes. Case management currently involved for appropriate discharge planning. at this point patinet is stable and ready for discharge home pending [employer] approval of wound VAC, and home health for ABX assistance. Continue to focus and work on physical therapy while in the hospital. We did reach out to primary care physician and they are wishing for the surgeon to controlled medications initially postoperatively for the first 6 weeks. This was discussed with the patient. He voiced understanding and agreement.
--- NOTE | 2023-06-06 13:24 | DS.PCM_ITS ---
Providers Date of Admission: 05/31/23 Primary Care Physician: Dr. Ben Lipscomb DO Consultations 05/31/23 09:48 Consult: Hospitalist Routine Consulting Provider: Oly Dexter Reason for Consult: post op med management EMERGENT Consult: No Notified: Yes Date Notified: 05/31/23 Time Notified: 15:34 Method of Notification: Text 06/01/23 10:34 Consult: Onc/Wound/coffee sampler Routine Comment: Reason for Consult:: wound VAC right knee 06/02/23 06:04 Consult: Infectious Disease Routine Consulting Provider: Ben Campuzano Reason for Consult: positive culture right revision tka EMERGENT Consult: No MD Notified: Yes Date Notified: 06/02/23 Time Notified: 06:45 Method of Notification: Answering Service 06/03/23 07:41 Consult: Nephrology Routine Consulting Provider: Juan Blankenship Reason for Consult: MAICO on CKD stage 3b, Cr Cl about 15 EMERGENT Consult: No MD Notified: Yes Date Notified: 06/03/23 Time Notified: 07:42 Method of Notification: Text Reason For Visit: RT TOTAL KNEE REV SCAR DEBRIDE POLY EXCHANGE Diagnosis Discharge Diagnosis (1) Infection of prosthetic right knee joint: Status: Acute Code(s): T84.53XA - Infection and inflammatory reaction due to internal right knee pr osthesis, initial encounter Plan: 1. S/P revision right total knee replacement patella revision and polyethylene exchange with scarred excision and quadricepplasty POD #6 2. Continue Pain Medications: Tylenol and oxycodone 3. DVT Prophylaxis: Take 81 mg aspirin twice daily for 4 weeks postoperatively for DVT prophylaxis. Patient denies past history of DVT or pulmonary embolism. 4. PT/OT: Weightbearing as tolerated with walker. We are limiting flexion to get skin rest. 5. H & H: 9.2/28.4, asymptomatic. Postoperative anemia secondary to acute blood loss from surgery without any intra operative complications. begin ferrous sulfate and Fe supplements today and continue upon discharge. follow up with PCP. 6. Continue postop medical management per medicine: Patient does have stable chronic kidney disease. Patient's chronic kidney disease did worsen initially. Starting to improve. Appreciate input from medicine service and renal consultation. At this time we will continue to avoid dehydration. NSAIDs have been avoided. Creatinine has been slowly trending down. currently 4.18. MAICO stable today. 7. Encouraged Incentive Spirometry 8. Postoperative drainage: Wound care nurse is following. Working on obtaining approval from [employer] for VAC on discharge. We will continue with the wound VAC with continuous setting at 75 mmHg with twice weekly dressing changes on Monday and . At this time patient will likely need dressing change , patient will require home health for dressing changes and physical therapy. 9. P JI: Patient has Pseudomonas aeruginosa and MRSA positive cultures. Staff is consistent with original infectious etiology. May likely be the cause of his continued residual stiffness and pain. Considering retained implants and patient has had numerous surgeries and desires to avoid further surgical intervention he would likely be a candidate for chronic suppressive antibiotics. We will proceed with a course of IV antibiotics. Currently on IV meropenem and daptomycin. We will need [employer] approval prior to discharge. PICC line placed. 10. Disposition: PICC line placed, and infectious disease final recommendations are daptomycin and meropenem IV x 6 weeks. with an ID follow up in 2 weeks. Patient will require home health for changes. Case management currently involved for appropriate discharge planning. at this point tracy is stable and ready for discharge home pending [employer] approval of wound VAC, and home health for ABX assistance. Continue to focus and work on physical therapy while in the hospital. We did reach out to primary care physician and they are wishing for the surgeon to controlled medications initially postoperatively for the first 6 weeks. This was discussed with the patient. He voiced understanding and agreement. (2) Status post revision of total replacement of right knee: Status: Acute Code(s): Z96.651 - Presence of right artificial knee joint Medications at Discharge Home Medications escitalopram oxalate 5 mg tablet (Lexapro) 10 mg PO DAILY depression 10/15/16 lphfpzau-dcs-cvune acid 0.4 mg-lycopene 300 mcg-lutein 250 mcg tablet (Centrum Silver) 1 ea PO DAILY supplement 10/15/16 omeprazole 20 mg capsule,delayed release 20 mg PO DAILY gerd 10/15/16 valsartan 80 mg tablet 80 mg PO DAILY bp 10/15/16 insulin aspart U-100 100 unit/mL (3 mL) subcutaneous pen (Novolog FlexPen U-100 Insulin aspart) 30 units subcut BID diabetes 02/19/18 insulin degludec 100 unit/mL (3 mL) subcutaneous pen (Tresiba FlexTouch U-100 insulin) 80 unit SQ BID diabetes 01/15/18 montelukast 10 mg tablet 10 mg PO DAILY@1700 #42 tabs 03/22/18 pravastatin 40 mg tablet 40 mg PO QHS 08/24/18 aspirin 81 mg tablet,delayed release 81 mg PO DAILY 05/17/23 cholecalciferol (vitamin D3) 25 mcg (1,000 unit) tablet (Vitamin D3) 25 mcg PO DAILY 05/17/23 daptomycin 500 mg intravenous solution 750 mg IV Q48 40 days #20 ea 06/05/23 meropenem 500 mg intravenous solution 500 mg IV Q12 40 days #80 ea 06/05/23 acetaminophen 500 mg tablet 1,000 mg (2 x 500 mg) PO Q8 #180 tabs 06/06/23 aspirin 81 mg chewable tablet 81 mg PO BID 4 weeks #56 tabs 06/06/23 oxycodone 5 mg tablet 5 - 10 mg (1 - 2 x 5 mg) PO .4-6 hours prn PRN Pain Score 4-10 7 days #60 tabs 06/06/23 Hospital Course Summary of Care Provided Hospital Course: Patient is a 62-year-old male status post revision right total knee arthroplasty with Dr. Cueva 05/31/2023 he was electively admitted. Postoperatively he had positive cultures for MRSA and Pseudomonas. He also had an acute on chronic kidney injury. This has since stabilized. Infectious disease was consulted and recommended daptomycin and meropenem IV x6 weeks outpatient with a follow-up in 2 weeks. He did have a PICC placed yesterday and overall has progressed with therapy well with therapy and ready for discharge home pending [employer] approval of the wound VAC and home health. Weight / BMI Weight Weight: 111 kg Body Mass Index (BMI) 38.3 ABG / Lab / Microbiology Data 06/06/23 06:08 06/06/23 06:08 Laboratory: Laboratory Results - last 24 hr 06/05/23 16:21: POC Glucose 88 06/05/23 18:08: U Random Total Protein 484.5 H, Urine Creatinine 78.30, Protein/Creatinin Ratio 6188 H 06/05/23 21:22: POC Glucose 77 06/05/23 22:04: POC Glucose 78 06/06/23 04:27: POC Glucose 60 L 06/06/23 04:54: POC Glucose 85 06/06/23 06:08: WBC 6.5, RBC 3.22 L, Hgb 9.2 L, Hct 28.2 L, MCV 87.6, MCH 28.6, MCHC 32.6, RDW Std Deviation 42.8, RDW Coeff of Alexa 13.5, Plt Count 222, MPV 9.4, Immature Gran % (Auto) 0.300, Neut % (Auto) 69.9, Lymph % (Auto) 15.5 L, [place] % (Auto) 8.9, Eos % (Auto) 4.9, Baso % (Auto) 0.5, Absolute Neuts (auto) 4.6, Absolute Lymphs (auto) 1.01, Nucleated RBC % 0, Sodium 141, Potassium 4.6, Chloride 111 H, Carbon Dioxide 27.0, Anion Gap 3 L, BUN 83 H, Creatinine 4.18 H, Estim Creat Clear Calc 16.91, Est GFR (MDRD) Af Amer 19 L, Est GFR (MDRD) Non-Af 15 L, BUN/Creatinine Ratio 19.9, Glucose 141 H, Calcium 8.2 L, Total Creatine Kinase 115 06/06/23 06:44: POC Glucose 162 H Microbiology: Microbiology 05/31/23 12:17 Tissue - Knee Gram Stain - Final 05/31/23 12:17 Tissue - Knee Wound Culture - Final Pseudomonas aeruginosa Meth. resistant Staph. aureus 05/31/23 12:17 Tissue - Knee Anaerobic Culture - Final No growth in 5 days. 05/31/23 12:15 Tissue - Knee Gram Stain - Final 05/31/23 12:15 Tissue - Knee Wound Culture - Final Meth. resistant Staph. aureus 05/31/23 12:15 Tissue - Knee Anaerobic Culture - Final No growth in 5 days. 05/31/23 11:55 Tissue - Suprapatellar Pouch Gram Stain - Final 05/31/23 11:55 Tissue - Suprapatellar Pouch Wound Culture - Final Meth. resistant Staph. aureus 05/31/23 11:55 Tissue - Suprapatellar Pouch Anaerobic Culture - Final No growth in 5 days. 05/19/23 07:17 Swab (Method) Nasal Screen MRSA/MSSA - Final D/C Instructions Please Follow Up With: [facility] When: as previously scheduled. 2 weeks post operatively. Meaningful Use Info Meaningful Use Diagnoses (Choose all that apply): None applicable Discharge Plan Admission Admit Date/Time: 05/31/23 09:47 Attending Provider: Casimiro Cueva Primary Care Provider: Ben Lipscomb Consulting Providers: Ben Campuzano; Seng Salcedo; Juan Blankenship Discharge Orders/Prescriptions Prescriptions: New meropenem 500 mg Recon Soln 500 mg IV Q12 40 Days Qty: 80 0RF Rx Instructions: stop date 07/16/23. Dx: prosthetic joint infection weekly bmp, cbc, LFT, CK, and ESR. fax to [phone] routine picc care per protocol daptomycin 500 mg Recon Soln 750 mg IV Q48 40 Days Qty: 20 0RF Rx Instructions: stop date 07/16/23. Dx: prosthetic joint infection weekly bmp, cbc, LFT, CK, and ESR. fax to [phone] routine picc care per protocol acetaminophen 500 mg Tablet 1,000 mg PO Q8 Qty: 180 0RF aspirin 81 mg Tablet,Chewable 81 mg PO BID 28 Days Qty: 56 0RF oxycodone 5 mg Tablet 5 - 10 mg PO .4-6 hours prn PRN (Reason: Pain Score 4-10) 7 Days Qty: 60 0RF Continued valsartan 80 MG tablet 80 mg PO DAILY Patient Comments: blood pressure omeprazole 20 MG capsule 20 mg PO DAILY Patient Comments: acid reflux escitalopram oxalate [Lexapro] 5 MG tablet 10 mg PO DAILY Patient Comments: depression Centrum Silver 1 EACH tablet 1 ea PO DAILY Patient Comments: supplement insulin degludec [Tresiba FlexTouch U-100] 100 UNIT/ML insulin pen 80 unit SQ BID insulin aspart U-100 [Novolog FlexPen U-100 Insulin] 100 UNITS/ML insulin pen 30 units subcut BID Patient Comments: BLOOD SUGAR montelukast 10 MG tablet 10 mg PO DAILY@1700 Qty: 42 1RF pravastatin 40 MG tablet 40 mg PO QHS cholecalciferol (vitamin D3) [Vitamin D3] 25 mcg (1,000 unit) Tablet 25 mcg PO DAILY Held aspirin 81 mg Tablet,Delayed Release (Dr/Ec) 81 mg PO DAILY Hold Instructions: Resume on 07/04/23. Discontinued oxycodone-acetaminophen 5-325 mg Tablet 1 tab PO Q8H PRN (Reason: Pain) Referrals / Follow Up: Ben Lipscomb DO [Primary Care Provider] - Disposition Disposition (needs filled in before D/C Order can be placed): Home Health Serv [facility]
--- NOTE | 2023-06-06 13:33 | DCINST_ITS ---
Discharge Instructions Diet Discharge Diet: No restrictions Activity Discharge Activity: May Shower Ice area for (Minutes): 20 Weight Bearing Status: Weight bearing as tolerated Keep extremity elevated above heart level: Operative Extremity Dressing / Incision Call your doctor if your incision/area has: Continuous Slow Oozing, Sudden Increased Bleeding, Increased Pain/ Swelling, Increased Redness, Foul Smelling Discharge and Swelling at the incision site Call your doctor if you observe: Fever of 101 or Higher, Change in Color, Shortness of breath, Dizziness, Chest pain, Calf discomfort and Uncontrolled pain Remove Dressing in: 5 days Cleanse incision/area with: Soap & Water and Keep Dressing Clean & Dry Follow Up Care Please Follow Up With: [facility] When: as previously scheduled. Test Results: Test results from this visit will be discussed in further detail at your follow- up appointment, if applicable. Discharge Plan Admission Admit Date/Time: 05/31/23 09:47 Attending Provider: Casimiro Cueva Primary Care Provider: Ben Lipscomb Consulting Providers: Ben Campuzano; Seng Salcedo; Juan Blankenship Discharge Orders/Prescriptions Prescriptions: New meropenem 500 mg Recon Soln 500 mg IV Q12 40 Days Qty: 80 0RF Rx Instructions: stop date 07/16/23. Dx: prosthetic joint infection weekly bmp, cbc, LFT, CK, and ESR. fax to [phone] routine picc care per protocol daptomycin 500 mg Recon Soln 750 mg IV Q48 40 Days Qty: 20 0RF Rx Instructions: stop date 07/16/23. Dx: prosthetic joint infection weekly bmp, cbc, LFT, CK, and ESR. fax to [phone] routine picc care per protocol acetaminophen 500 mg Tablet 1,000 mg PO Q8 Qty: 180 0RF aspirin 81 mg Tablet,Chewable 81 mg PO BID 28 Days Qty: 56 0RF oxycodone 5 mg Tablet 5 - 10 mg PO .4-6 hours prn PRN (Reason: Pain Score 4-10) 7 Days Qty: 60 0RF Continued valsartan 80 MG tablet 80 mg PO DAILY Patient Comments: blood pressure omeprazole 20 MG capsule 20 mg PO DAILY Patient Comments: acid reflux escitalopram oxalate [Lexapro] 5 MG tablet 10 mg PO DAILY Patient Comments: depression Centrum Silver 1 EACH tablet 1 ea PO DAILY Patient Comments: supplement insulin degludec [Tresiba FlexTouch U-100] 100 UNIT/ML insulin pen 80 unit SQ BID insulin aspart U-100 [Novolog FlexPen U-100 Insulin] 100 UNITS/ML insulin pen 30 units subcut BID Patient Comments: BLOOD SUGAR montelukast 10 MG tablet 10 mg PO DAILY@1700 Qty: 42 1RF pravastatin 40 MG tablet 40 mg PO QHS cholecalciferol (vitamin D3) [Vitamin D3] 25 mcg (1,000 unit) Tablet 25 mcg PO DAILY Held aspirin 81 mg Tablet,Delayed Release (Dr/Ec) 81 mg PO DAILY Hold Instructions: Resume on 07/04/23. Discontinued oxycodone-acetaminophen 5-325 mg Tablet 1 tab PO Q8H PRN (Reason: Pain) Referrals / Follow Up: Ben Lipscomb DO [Primary Care Provider] - Disposition Disposition (needs filled in before D/C Order can be placed): Home Health Service
--- NOTE | 2023-06-06 13:57 | PCM.PN.REN ---
Subjective Subjective Following for MAICO on CKD Resting in bed. Possible discharge to home today with IV antibiotics. No complaints. Reports good appetite. Objective Data Objective Data Vital Signs: Vital Signs Temp Pulse Resp BP Pulse Ox O2 Del Method O2 Flow Rate 98.3 F 70 18 170/61 H 97 Room Air 3 06/06/23 07:40 06/06/23 11:08 06/06/23 07:40 06/06/23 07:40 06/06/23 09:12 06/06/23 10:00 05/31/23 15:49 Oxygen Flow Rate (L/min) 3 Oxygen Delivery Method Room Air Weight: 111 kg Body Mass Index (BMI) 38.3 Intake & Output: Intake and Output for Last 24 Hours 06/04/23 06/05/23 06/06/23 23:59 23:59 23:59 Intake Total 1330 / 1330 1685 / 1685 1110 / 1110 Output Total 1100 / 1900 1250 / 1250 Balance 230 / -570 435 / 435 1110 / 1110 Lab / Micro Data 06/06/23 06:08 06/06/23 06:08 Labs: Laboratory Results - last 24 hr 06/05/23 16:21: POC Glucose 88 06/05/23 18:08: U Random Total Protein 484.5 H, Urine Creatinine 78.30, Protein/Creatinin Ratio 6188 H 06/05/23 21:22: POC Glucose 77 06/05/23 22:04: POC Glucose 78 06/06/23 04:27: POC Glucose 60 L 06/06/23 04:54: POC Glucose 85 06/06/23 06:08: WBC 6.5, RBC 3.22 L, Hgb 9.2 L, Hct 28.2 L, MCV 87.6, MCH 28.6, MCHC 32.6, RDW Std Deviation 42.8, RDW Coeff of Alexa 13.5, Plt Count 222, MPV 9.4, Immature Gran % (Auto) 0.300, Neut % (Auto) 69.9, Lymph % (Auto) 15.5 L, [place] % (Auto) 8.9, Eos % (Auto) 4.9, Baso % (Auto) 0.5, Absolute Neuts (auto) 4.6, Absolute Lymphs (auto) 1.01, Nucleated RBC % 0, Sodium 141, Potassium 4.6, Chloride 111 H, Carbon Dioxide 27.0, Anion Gap 3 L, BUN 83 H, Creatinine 4.18 H, Estim Creat Clear Calc 16.91, Est GFR (MDRD) Af Amer 19 L, Est GFR (MDRD) Non-Af 15 L, BUN/Creatinine Ratio 19.9, Glucose 141 H, Calcium 8.2 L, Total Creatine Kinase 115 06/06/23 06:44: POC Glucose 162 H Micro: Microbiology 05/31/23 12:17 Tissue - Knee Gram Stain - Final 05/31/23 12:17 Tissue - Knee Wound Culture - Final Pseudomonas aeruginosa Meth. resistant Staph. aureus 05/31/23 12:17 Tissue - Knee Anaerobic Culture - Final No growth in 5 days. 05/31/23 12:15 Tissue - Knee Gram Stain - Final 05/31/23 12:15 Tissue - Knee Wound Culture - Final Meth. resistant Staph. aureus 05/31/23 12:15 Tissue - Knee Anaerobic Culture - Final No growth in 5 days. 05/31/23 11:55 Tissue - Suprapatellar Pouch Gram Stain - Final 05/31/23 11:55 Tissue - Suprapatellar Pouch Wound Culture - Final Meth. resistant Staph. aureus 05/31/23 11:55 Tissue - Suprapatellar Pouch Anaerobic Culture - Final No growth in 5 days. 05/19/23 07:17 Swab (Method) Nasal Screen MRSA/MSSA - Final Physical Exam Narrative Alert oriented x3, no apparent distress Lung sounds clear anteriorly and posteriorly, no wheezes rhonchi rales noted S1, S2, RRR Abdomen soft, nontender No significant lower extremity edema Assessment & Plan Assessment/Plan (1) Acute kidney injury: PLAN: MAICO superimposed on CKD. Patient has underlying CKD, most likely due to diabetic nephropathy. Most recent creatinine prior to admission was 2.43 05/19/2023. Admitted with septic arthritis of right knee. Creatinine 3.47 on admission, peaked at 4.4 mg/dL on 06/03 and today his creatinine has slightly improved to 4.18 mg/dL. MAICO possibly from infection and low BP episode (on 06/01 BP 98/51). Patient is nonoliguric, appears near euvolemic. No acute indication for [employer]. He is hemodynamically stable, his urine output has improved, no significant acidosis and electrolytes are fine. UA on admission negative leukocyte Estrace, no RBC, 25 occult blood, urine protein 500. UPC 6.1 gms Potassium was 5.2, normalized today and recommend to continue low potassium diet restrictions. infection of prosthetic right knee joint, to OR for right knee revision, cx +MRSA and PsA. Antibiotics per ID, Dapto and meropenem x6 weeks (stop date 07/16/23). Blood pressures improved on amlodipine 10mg daily, hydralazine 50g bid. Recommend to continue off Valsartan until seen in office. Recommend avoiding nephrotoxic agents such as NSAIDs, reviewed with patient. Ok for discharge per renal. We will arrange for hospital follow-up at time of discharge.
[2023-06-06 15:09] LABS: Bedside Glucose 183 mg/dL (74-106)
--- NOTE | 2023-06-06 15:21 | PN.HOSP_ITS ---
Reason for Visit Reason for Visit: Diagnoses Type 2 diabetes mellitus without complications (05/31/23) Essential (primary) hypertension (05/31/23) Atherosclerotic heart disease of [place] coronary artery without angina pectoris (05/31/23) Chronic obstructive pulmonary disease, unspecified (05/31/23) Gastro-esophageal reflux disease without esophagitis (05/31/23) Staphylococcal arthritis, right knee (05/31/23) Pyogenic arthritis, unspecified (05/31/23) Acute kidney failure, unspecified (05/31/23) Infection and inflammatory reaction due to internal right knee prosthesis, initial encounter (05/31/23) Encounter for other preprocedural examination (05/31/23) Presence of right artificial knee joint (05/31/23) Subjective Subjective Patient is doing well. No acute complaints. Objective Data Objective Data Vital Signs: Vital Signs Temp Pulse Resp BP Pulse Ox O2 Del Method O2 Flow Rate 98.9 F 77 18 158/79 H 97 Room Air 3 06/06/23 14:48 06/06/23 14:48 06/06/23 14:48 06/06/23 14:48 06/06/23 14:48 06/06/23 14:48 05/31/23 15:49 Oxygen Flow Rate (L/min) 3 Oxygen Delivery Method Room Air Weight: 244 lb 11.41 oz Body Mass Index (BMI) 38.3 Intake & Output: Intake and Output for Last 24 Hours 06/04/23 06/05/23 06/06/23 23:59 23:59 23:59 Intake Total 1330 / 1330 1685 / 1685 1170 / 1170 Output Total 1100 / 1900 1250 / 1250 Balance 230 / -570 435 / 435 1170 / 1170 Lab / Micro Data 06/06/23 06:08 06/06/23 06:08 Labs: Laboratory Results - last 24 hr 06/05/23 16:21: POC Glucose 88 06/05/23 18:08: U Random Total Protein 484.5 H, Urine Creatinine 78.30, Protein/Creatinin Ratio 6188 H 06/05/23 21:22: POC Glucose 77 06/05/23 22:04: POC Glucose 78 06/06/23 04:27: POC Glucose 60 L 06/06/23 04:54: POC Glucose 85 06/06/23 06:08: WBC 6.5, RBC 3.22 L, Hgb 9.2 L, Hct 28.2 L, MCV 87.6, MCH 28.6, MCHC 32.6, RDW Std Deviation 42.8, RDW Coeff of Alexa 13.5, Plt Count 222, MPV 9.4, Immature Gran % (Auto) 0.300, Neut % (Auto) 69.9, Lymph % (Auto) 15.5 L, [place] % (Auto) 8.9, Eos % (Auto) 4.9, Baso % (Auto) 0.5, Absolute Neuts (auto) 4.6, Absolute Lymphs (auto) 1.01, Nucleated RBC % 0, Sodium 141, Potassium 4.6, Chloride 111 H, Carbon Dioxide 27.0, Anion Gap 3 L, BUN 83 H, Creatinine 4.18 H, Estim Creat Clear Calc 16.91, Est GFR (MDRD) Af Amer 19 L, Est GFR (MDRD) Non-Af 15 L, BUN/Creatinine Ratio 19.9, Glucose 141 H, Calcium 8.2 L, Total Creatine Kinase 115 06/06/23 06:44: POC Glucose 162 H 06/06/23 11:17: POC Glucose 183 H Micro: Microbiology 05/31/23 12:17 Tissue - Knee Gram Stain - Final 05/31/23 12:17 Tissue - Knee Wound Culture - Final Pseudomonas aeruginosa Meth. resistant Staph. aureus 05/31/23 12:17 Tissue - Knee Anaerobic Culture - Final No growth in 5 days. 05/31/23 12:15 Tissue - Knee Gram Stain - Final 05/31/23 12:15 Tissue - Knee Wound Culture - Final Meth. resistant Staph. aureus 05/31/23 12:15 Tissue - Knee Anaerobic Culture - Final No growth in 5 days. 05/31/23 11:55 Tissue - Suprapatellar Pouch Gram Stain - Final 05/31/23 11:55 Tissue - Suprapatellar Pouch Wound Culture - Final Meth. resistant Staph. aureus 05/31/23 11:55 Tissue - Suprapatellar Pouch Anaerobic Culture - Final No growth in 5 days. 05/19/23 07:17 Swab (Method) Nasal Screen MRSA/MSSA - Final Physical Exam Narrative Seen and examined. Patient complain of mild right knee pain. Had multiple 5 surgeries in the past. No fever General: Alert, Oriented x3, Cooperative HEENT: Atraumatic, PERRLA, EOMI, Normocephalic Oral: Oral mucosa moist. No Gingival or Mucosal Lesions/ Ulcerations Neck: Supple, No JVD, Negative Carotid Bruits Lungs: Air entry diminished in bilateral lung bases. No crepitation/rhonchi Cardiovascular: Regular rate, Regular Rhythm, Normal S1, Normal S2, No murmurs Abdomen: Bowel Sounds Present, Soft, Non Tender, Non-Distended : No renal angle tenderness. No suprapubic tenderness. Extremities: No edema, Capillary Refill Less than 3 Seconds Skin: No rashes, No breakdown Musculoskeletal: Right knee has surgical dressing, Carlos A wrap bandage and ice bag. No Tenderness to Palpation of other joints or Extremities Neurological: Cranial nerves II-XII grossly intact, DTR 2+/4 and Symmetrical, Neuro grossly intact Psych/Mental Status: Normal Affect, Appropriate. Assessment & Plan Assessment/Plan (1) Status post revision of total replacement of right knee: (2) Septic arthritis of knee, right: QUALIFIERS: Septic arthritis organism: staphylococcal Qualified Code(s): M00.061 - Staphylococcal arthritis, right knee PLAN: Plan 1. Septic arthritis/periprosthetic infection of right knee, due to MRSA and Pseudomonas status post revision of total replacement of right knee: Patient had initial right total knee arthroplasty in 2017 and shortly thereafter had right periprosthetic knee infection. He had multiple total of 5 revisions. Operative cultures growing Pseudomonas rare growth and rare gram-positive organism. No fever or chills. Patient initially on cefazolin and was started on doxycycline. Antibiotic changed to IV meropenem adjusted to the kidney function. 06/05: Patient was started on linezolid for MRSA after discussion with ID yesterday. Vancomycin not good option because of MAICO. Doxycycline discontinued 06/06: Patient was seen by ID. Currently on IV meropenem and daptomycin. He wrote prescription for 6 weeks of IV meropenem and daptomycin 2. 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 Cueva -No complications -JYOTI titus -Scheduled Tylenol, pain control -Aspirin 81 mg twice daily 06/03: Avoid NSAIDs for pain control Aspirin twice daily for 4 weeks postop. Weightbearing as tolerated. Wound VAC on discharge with twice weekly dressing changes and wound care #Intraoperative knee cultures with Pseudomonas and gram-positive cocci -Patient was on Doxy but is growing Pseudomonas resistant to Zosyn, ID on board and switched him to meropenem #MAICO on likely CKD stage IIIb -Last creatinine 2.43 on 05/19/2023 however no previous values since 2019 -Creatinine today 3.47, BUN 56 -DC all NSAIDs/avoid all NSAIDs -06/03: Kidney function continues to worsen, monitor I's and O's and daily weights, kidney ultrasound shows bladder wall thickening probably cystitis or chronic bladder outlet obstruction. Glass Beveller is consulting. Hold for lethargy/sedation or respiratory rate less than 10/min nephrotoxic medications. UA shows protein high otherwise normal specific gravity, nitrite and LE negati ve. WBC 0-5 cells. Hypertension: Blood pressure is elevated. Patient not candidate for CARLOS A/ARB or diuretic. Started on amlodipine and hydralazine. #Type 2 diabetes mellitus -Glucose checks and sliding scale insulin -Patient had several low blood glucoses, will decrease 80 units of glargine twic e daily to 60 units twice daily and decrease the 30 twice daily of short acting to 20 twice daily, low glucoses despite home regimen may be due to MAICO, continue to monitor and adjust -06/03: Insulin dose adjusted. Glucose 113. Insulin and Humalog insulin further decreased with holding parameters 06/04: Creatinine 4.22. Estimated creatinine clearance 16 mL/min. 711: Creatinine 4.18. #Coronary artery disease -Continue aspirin and statin #GERD -Continue Protonix #COPD -Does not use any inhalers at home at present, will add albuterol as needed #DVT ppx: Aspirin twice daily Heart team will sign off. Please call if acute issues arises. Charges/Coding Visit Charges Inpatient E&M: 31149 Subs Hosp L2
--- NOTE | 2023-06-06 17:17 | CASEMGMT ---
Addendum entered by Placido Greenwood 06/06/23 23:27: 1730: Pt aware will most likely be ready to discharge home tomorrow. Pt aware [facility]HC does not come to the home daily and he/family will need to admin his IV atb's. He verifies he has done IV atb's in the past and his dtr and can both assist him. He denies having concerns or d/c needs at this time. . Original Note: ADRIANA HARDIN NOTE: Call received from [email or web address] @ [facility]. She states she just finished the C-9 auth and pt has been approved for home IV infusion and she will send the C-9 to Gissel @ [facility] and also to Cathryn @ [facility]. She states she has spoken w/Cathryn @ [facility] and per Cathryn, the earliest pt can start home infusion is AM. Depending on when HHC able to do SOC, tentative plan would be for pt to d/c home after he receives PM dose of IV merrem tomorrow, 06/07, and then have HHC do SOC 06/08 AM. ADRIANA HARDIN spoke w/pharmacistShanna, re: IV merrem and admin times, as tentative plans are for pt to discharge home tomorrow after PM dose for [facility] SOC on . Shanna recommends the following: Give 10 PM dose of merrem tonight 06/06 around 8:30/9 PM Give 10 AM dose tomorrow 12 @ 6 AM Give 10 PM dose tomorrow 7/12 evening @ 6 PM. Then pt can discharge home 06/07 after 6 PM dose infused. Ramandeep WRIGHT, notified and to pass this along to next shift. Joellen FUCHSN ADRIANA HARDIN
[2023-06-06 17:22] LABS: Bedside Glucose 76 mg/dL (74-106)
[2023-06-06] MEDS: Senna/Docusate Sodium 1 Tablet 2 TABLET PO (21:45)
[2023-06-06] MEDS: Pravastatin 40 MG Tablet PO (21:45)
[2023-06-06] MEDS: Montelukast 10 MG Tablet PO (21:58)
[2023-06-06 22:26] LABS: Bedside Glucose 121 mg/dL (74-106)
[2023-06-07 03:55] VITALS: BP 158/66; PULSE 72; RESP 16; TEMP 36.6; O2SAT 98
[2023-06-07] MEDS: oxyCODONE 5 MG Tablet PO ×3 (04:00→16:34)
[2023-06-07 06:19] LABS: Absolute Lymphocyte Count 1.33 X10^3/uL (0.83-4.51); Absolute Neutrophil Count 5.4 X10^3/uL (2.0-7.7); Basophil# 0.05 X10^3/uL; Basophil% 0.6 % (0-1); Eosinophil# 0.37 X10^3/uL; Eosinophils% 4.7 % (0-5); Hematocrit 30.2 % (40-54); Hemoglobin 9.3 g/dL (13.0-16.5); Lymphocyte # 1.33 X10^3/ul (0.83-4.51); Lymphocyte % 16.8 % (19-41); Mean Corp Hgb Conc 30.8 g/dL (32-36); Mean Corpuscular Hgb 27.3 pg (27.0-32.0); Mean Corpuscular Volume 88.6 fL (80-94); Mean Platelet Vol. 9.4 fl (6.2-12.0); Monocyte# 0.73 X10^3/uL; Monocyte% 9.2 % (0-10); NRBC Flagged by Analyzer 0 % (0-5); Neutrophil # 5.37 X10^3/uL (2.7-7.7); Neutrophil % 68.1 % (47-70); Platelet Count 254 K/mm3 (150-450); RBC Distribution Width CV 13.4 % (11.6-14.6); RBC Distribution Width SD 43.4 fl (35.1-43.9); Red Blood Count 3.41 M/mm3 (4.6-6.2); White Blood Count 7.9 K/mm3 (4.4-11.0)
[2023-06-07] MEDS: Acetaminophen 500 MG Tablet 1000 MG PO ×2 (06:21→13:28)
[2023-06-07 06:53] LABS: Bedside Glucose 63 mg/dL (74-106)
[2023-06-07 06:54] LABS: Anion Gap 3 (5-15); BUN 81 mg/dL (7-18); BUN/Creat Ratio 19.8 RATIO (10-20); Calcium,Total 8.2 mg/dL (8.5-10.1); Chloride 114 mmol/L (98-107); Creatinine, Serum 4.09 mg/dL (0.70-1.30); EST Glomerular Filtration Rate 16 mL/min (>60); Est Glom Filt Rate - Afr Amer 19 mL/min (>60); Estimated Creatinine Clearance 17.28 ml/min; Glucose 62 mg/dL (74-106); Potassium 4.7 mmol/L (3.5-5.1); Sodium Level 145 mmol/L (136-145)
[2023-06-07 07:14] LABS: Bedside Glucose 94 mg/dL (74-106)
[2023-06-07 10:00] VITALS: BP 152/68; PULSE 80; RESP 18; TEMP 36.7; O2SAT 98
[2023-06-07] MEDS: 0.9% Saline Lock 10 ML Syringe IV ×2 (10:33→16:35)
[2023-06-07 10:34] VITALS: PULSE 80
[2023-06-07] MEDS: Famotidine 20 MG Tablet PO (10:34)
[2023-06-07] MEDS: Aspirin 81 MG TAB.CHEW PO (10:34)
[2023-06-07] MEDS: Cholecalciferol (VIT D3) 25 MCG TABLET (1,000 UNITS) PO (10:34)
[2023-06-07] MEDS: hydrALAZINE 50 MG Tablet PO ×2 (10:34→13:30)
[2023-06-07] MEDS: Insulin Lispro 100 UNIT/ML INSULN.PEN 10 UNIT SC (10:35)
[2023-06-07] MEDS: Insulin Glargine-YFGN 100 UNIT/ML Pen 30 UNIT SC (10:35)
[2023-06-07] MEDS: amLODIPine 10 MG Tablet PO ×2 (10:36)
[2023-06-07] MEDS: Pantoprazole Sodium 20 MG Tablet PO (10:36)
[2023-06-07] MEDS: Multivitamins,Ther W-Minerals Tablet 1 TABLET PO (10:37)
[2023-06-07] MEDS: Ensure Surgery 237 ML LIQUID PO (10:37)
--- NOTE | 2023-06-07 10:43 | PCM.PN.HOSP ---
Reason for Visit Reason for Visit: Diagnoses Type 2 diabetes mellitus without complications (05/31/23) Essential (primary) hypertension (05/31/23) Atherosclerotic heart disease of [place] coronary artery without angina pectoris (05/31/23) Chronic obstructive pulmonary disease, unspecified (05/31/23) Gastro-esophageal reflux disease without esophagitis (05/31/23) Staphylococcal arthritis, right knee (05/31/23) Pyogenic arthritis, unspecified (05/31/23) Acute kidney failure, unspecified (05/31/23) Infection and inflammatory reaction due to internal right knee prosthesis, initial encounter (05/31/23) Encounter for other preprocedural examination (05/31/23) Presence of right artificial knee joint (05/31/23) Objective Data Objective Data Vital Signs: Vital Signs Temp Pulse Resp BP Pulse Ox O2 Del Method O2 Flow Rate 97.9 F 80 16 158/66 H 98 Room Air 3 06/07/23 03:55 06/07/23 10:34 06/07/23 03:55 06/07/23 03:55 06/07/23 03:55 06/07/23 03:55 05/31/23 15:49 Oxygen Flow Rate (L/min) 3 Oxygen Delivery Method Room Air Weight: 244 lb 11.41 oz Body Mass Index (BMI) 38.3 Intake & Output: Intake and Output for Last 24 Hours 06/05/23 06/06/23 06/07/23 23:59 23:59 23:59 Intake Total 1685 / 1685 1230 / 1830 660 / 660 Output Total 1250 / 1250 600 / 600 Balance 435 / 435 1230 / 1830 60 / 60 Lab / Micro Data 06/07/23 05:45 06/07/23 05:45 Labs: Laboratory Results - last 24 hr 06/06/23 11:17: POC Glucose 183 H 06/06/23 17:04: POC Glucose 76 06/06/23 21:53: POC Glucose 121 H 06/07/23 05:45: WBC 7.9, RBC 3.41 L, Hgb 9.3 L, Hct 30.2 L, MCV 88.6, MCH 27.3, MCHC 30.8 L D, RDW Std Deviation 43.4, RDW Coeff of Alexa 13.4, Plt Count 254, MPV 9.4, Immature Gran % (Auto) 0.600, Neut % (Auto) 68.1, Lymph % (Auto) 16.8 L, [place] % (Auto) 9.2, Eos % (Auto) 4.7, Baso % (Auto) 0.6, Absolute Neuts (auto) 5.4, Absolute Lymphs (auto) 1.33, Nucleated RBC % 0, Sodium 145, Potassium 4.7, Chloride 114 H, Carbon Dioxide 28.0, Anion Gap 3 L, BUN 81 H, Creatinine 4.09 H, Estim Creat Clear Calc 17.28, Est GFR (MDRD) Af Amer 19 L, Est GFR (MDRD) Non-Af 16 L, BUN/Creatinine Ratio 19.8, Glucose 62 L, Calcium 8.2 L 06/07/23 06:26: POC Glucose 63 L 06/07/23 06:56: POC Glucose 94 Micro: Microbiology 05/31/23 12:17 Tissue - Knee Gram Stain - Final 05/31/23 12:17 Tissue - Knee Wound Culture - Final Pseudomonas aeruginosa Meth. resistant Staph. aureus 05/31/23 12:17 Tissue - Knee Anaerobic Culture - Final No growth in 5 days. 05/31/23 12:15 Tissue - Knee Gram Stain - Final 05/31/23 12:15 Tissue - Knee Wound Culture - Final Meth. resistant Staph. aureus 05/31/23 12:15 Tissue - Knee Anaerobic Culture - Final No growth in 5 days. 05/31/23 11:55 Tissue - Suprapatellar Pouch Gram Stain - Final 05/31/23 11:55 Tissue - Suprapatellar Pouch Wound Culture - Final Meth. resistant Staph. aureus 05/31/23 11:55 Tissue - Suprapatellar Pouch Anaerobic Culture - Final No growth in 5 days. 05/19/23 07:17 Swab (Method) Nasal Screen MRSA/MSSA - Final Physical Exam Narrative Seen and examined. Patient complain of mild right knee pain. Had multiple 5 surgeries in the past. No fever. Patient has marked compensation therefore delaying discharge. General: Alert, Oriented x3, Cooperative HEENT: Atraumatic, PERRLA, EOMI, Normocephalic Oral: Oral mucosa moist. No Gingival or Mucosal Lesions/ Ulcerations Neck: Supple, No JVD, Negative Carotid Bruits Lungs: Air entry diminished in bilateral lung bases. No crepitation/rhonchi Cardiovascular: Regular rate, Regular Rhythm, Normal S1, Normal S2, No murmurs Abdomen: Bowel Sounds Present, Soft, Non Tender, Non-Distended : No renal angle tenderness. No suprapubic tenderness. Extremities: No edema, Capillary Refill Less than 3 Seconds Skin: No rashes, No breakdown Musculoskeletal: Right knee has surgical dressing, Carlos A wrap bandage. No Tenderness to Palpation of other joints or Extremities. Has wound VAC. Neurological: Cranial nerves II-XII grossly intact, DTR 2+/4 and Symmetrical, Neuro grossly intact Psych/Mental Status: Normal Affect, Appropriate. Assessment & Plan Assessment/Plan (1) Status post revision of total replacement of right knee: (2) Septic arthritis of knee, right: QUALIFIERS: Septic arthritis organism: staphylococcal Qualified Code(s): M00.061 - Staphylococcal arthritis, right knee PLAN: Plan 1. Septic arthritis/periprosthetic infection of right knee, due to MRSA and Pseudomonas status post revision of total replacement of right knee: Patient had initial right total knee arthroplasty in 2016 and shortly thereafter had right periprosthetic knee infection. He had multiple total of 5 revisions. Operative cultures growing Pseudomonas rare growth and rare gram-positive organism. No fever or chills. Patient initially on cefazolin and was started on doxycycline. Antibiotic changed to IV meropenem adjusted to the kidney function. 06/05: Patient was started on linezolid for MRSA after discussion with ID yesterday. Vancomycin not good option because of MAICO. Doxycycline discontinued 06/06: Patient was seen by ID. Currently on IV meropenem and daptomycin. He wrote prescription for 6 weeks of IV meropenem and daptomycin 06/07: No acute issues. Will need replacement of discharge wound VAC. 2. 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 Cueva -No complications -JYOTI titus -Scheduled Tylenol, pain control -Aspirin 81 mg twice daily 06/03: Avoid NSAIDs for pain control Aspirin twice daily for 4 weeks postop. Weightbearing as tolerated. Wound VAC on discharge with twice weekly dressing changes and wound care #Intraoperative knee cultures with Pseudomonas and gram-positive cocci -Patient was on Doxy but is growing Pseudomonas resistant to Zosyn, ID on board and switched him to meropenem #MAICO on likely CKD stage IIIb most likely diabetic nephropathy -Last creatinine 2.43 on 05/19/2023 however no previous values since 2019 -Creatinine today 3.47, BUN 56 -DC all NSAIDs/avoid all NSAIDs -06/03: Kidney function continues to worsen, monitor I's and O's and daily weights, kidney ultrasound shows bladder wall thickening probably cystitis or chronic bladder outlet obstruction. Revenue Analyst is consulting. Hold for lethargy/sedation or respiratory rate less than 10/min nephrotoxic medications. UA shows protein high otherwise normal specific gravity, nitrite and LE negative. WBC 0-5 cells. 06/07: Creatinine is 4.09 I think it is nearing his baseline. Revenue Analyst is following. Nonoliguric, no acute indication of CARRIAGE DOGGER Hypertension: Blood pressure is elevated. Patient not candidate for CARLOS A/ARB or diuretic. Started on amlodipine and hydralazine. #Type 2 diabetes mellitus -Glucose checks and sliding scale insulin -Patient had several low blood glucoses, will decrease 80 units of glargine twice daily to 60 units twice daily and decrease the 30 twice daily of short acting to 20 twice daily, low glucoses despite home regimen may be due to MAICO, continue to monitor and adjust -06/03: Insulin dose adjusted. Glucose 113. Insulin and Humalog insulin further decreased with holding parameters 06/04: Creatinine 4.22. Estimated creatinine clearance 16 mL/min. 711: Creatinine 4.18. #Coronary artery disease -Continue aspirin and statin #GERD -Continue Protonix #COPD -Does not use any inhalers at home at present, will add albuterol as needed #DVT ppx: Aspirin twice daily Charges/Coding Visit Charges Inpatient E&M: 93302 Subs Hosp L2
--- NOTE | 2023-06-07 11:33 | PCM.PN.ORT ---
Subjective Subjective Patient is s/p revision right sided total knee arthroplasty with Dr. Cueva on 05/31/2023. Patient is postop day 7. Patient resting comfortably in bed. Rates pain 2/ 10 at rest. With movement 8 /10. States taking Tylenol and oxycodone as needed no NSAIDs due to MAICO. And ice help to relieve pain. Patient has been up with therapy. Walking with the assit of a walker. Afebrile, no chest pain, shortness of breath, negative calf pain/ erythema, and no other signs of DVT. Objective Data Objective Data Vital Signs: Vital Signs Temp Pulse Resp BP Pulse Ox O2 Del Method O2 Flow Rate 98.0 F 80 18 152/68 H 98 Room Air 3 06/07/23 10:00 06/07/23 10:34 06/07/23 10:00 06/07/23 10:00 06/07/23 10:00 06/07/23 10:00 05/31/23 15:49 Oxygen Flow Rate (L/min) 3 Oxygen Delivery Method Room Air Weight: 111 kg Body Mass Index (BMI) 38.3 Intake & Output: Intake and Output for Last 24 Hours 06/05/23 06/06/23 06/07/23 23:59 23:59 23:59 Intake Total 1685 / 1685 1230 / 1830 660 / 660 Output Total 1250 / 1250 600 / 600 Balance 435 / 435 1230 / 1830 60 / 60 Lab / Micro Data 06/07/23 05:45 06/07/23 05:45 Labs: Laboratory Results - last 24 hr 06/06/23 11:17: POC Glucose 183 H 06/06/23 17:04: POC Glucose 76 06/06/23 21:53: POC Glucose 121 H 06/07/23 05:45: WBC 7.9, RBC 3.41 L, Hgb 9.3 L, Hct 30.2 L, MCV 88.6, MCH 27.3, MCHC 30.8 L D, RDW Std Deviation 43.4, RDW Coeff of Alexa 13.4, Plt Count 254, MPV 9.4, Immature Gran % (Auto) 0.600, Neut % (Auto) 68.1, Lymph % (Auto) 16.8 L, [place] % (Auto) 9.2, Eos % (Auto) 4.7, Baso % (Auto) 0.6, Absolute Neuts (auto) 5.4, Absolute Lymphs (auto) 1.33, Nucleated RBC % 0, Sodium 145, Potassium 4.7, Chloride 114 H, Carbon Dioxide 28.0, Anion Gap 3 L, BUN 81 H, Creatinine 4.09 H, Estim Creat Clear Calc 17.28, Est GFR (MDRD) Af Amer 19 L, Est GFR (MDRD) Non-Af 16 L, BUN/Creatinine Ratio 19.8, Glucose 62 L, Calcium 8.2 L 06/07/23 06:26: POC Glucose 63 L 06/07/23 06:56: POC Glucose 94 Micro: Microbiology 05/31/23 12:17 Tissue - Knee Gram Stain - Final 05/31/23 12:17 Tissue - Knee Wound Culture - Final Pseudomonas aeruginosa Meth. resistant Staph. aureus 05/31/23 12:17 Tissue - Knee Anaerobic Culture - Final No growth in 5 days. 05/31/23 12:15 Tissue - Knee Gram Stain - Final 05/31/23 12:15 Tissue - Knee Wound Culture - Final Meth. resistant Staph. aureus 05/31/23 12:15 Tissue - Knee Anaerobic Culture - Final No growth in 5 days. 05/31/23 11:55 Tissue - Suprapatellar Pouch Gram Stain - Final 05/31/23 11:55 Tissue - Suprapatellar Pouch Wound Culture - Final Meth. resistant Staph. aureus 05/31/23 11:55 Tissue - Suprapatellar Pouch Anaerobic Culture - Final No growth in 5 days. 05/19/23 07:17 Swab (Method) Nasal Screen MRSA/MSSA - Final Physical Exam Narrative Patient resting comfortably in bed No signs of acute distress Satting well on room air Limb is warm to touch, Sensation intact throughout entire lower extremity, including saphenous, sural, superficial and deep peroneal, and tibial distribution. DP/PT pulses bounding. dorsiflexion/ plantar flexion strength 5/[address] sanguinous drainage appreciated. Calf nontender to palpation, no erythema, no edema. Negative Homans Assessment & Plan Assessment/Plan (1) Infection of prosthetic right knee joint: PLAN: (1) Infection of prosthetic right knee joint: PLAN: 1. S/P revision right total knee replacement patella revision and polyethylene exchange with scarred excision and quadricepplasty POD #7 2. Continue Pain Medications: Tylenol and oxycodone. no nsaids due to MAICO 3. DVT Prophylaxis: Take 81 mg aspirin twice daily for 4 weeks postoperatively for DVT prophylaxis. Patient denies past history of DVT or pulmonary embolism. 4. PT/OT: Weightbearing as tolerated with walker. We are limiting flexion to get skin rest. 5. H & H: 9.3/28.4, asymptomatic. Postoperative anemia secondary to acute blood loss from surgery without any intra operative complications. begin ferrous sulfate and folate today and continue upon discharge. follow up with PCP. 6. Continue postop medical management per medicine: Patient does have stable chronic kidney disease. Patient's chronic kidney disease did worsen initially. Starting to improve. per medicine and nephrology pateint is stable and ok for discharge home. will need nephrology follow up after discharge,2 weeks. will discontinue valsartan per their recs. At this time we will continue to avoid dehydration. NSAIDs have been avoided. Creatinine has been slowly trending down. currently 4.09. MAICO stable today. 7. Encouraged Incentive Spirometry 8. Postoperative drainage: Wound care nurse is following. Working on obtaining approval from [place] for VAC on discharge. We will continue with the wound VAC with continuous setting at 75 mmHg with twice weekly dressing changes on Monday and . At this time patient will likely need dressing change , patient will require home health for dressing changes and physical therapy. 9. P JI: Patient has Pseudomonas aeruginosa and MRSA positive cultures. Staff is consistent with original infectious etiology. May likely be the cause of his continued residual stiffness and pain. Considering retained implants and patient has had numerous surgeries and desires to avoid further surgical intervention he would likely be a candidate for chronic suppressive antibiotics. We will proceed with a course of IV antibiotics. Currently on IV meropenem and daptomycin. We will need [employer]'s Comp. approval prior to discharge. PICC line placed. 10. Disposition: PICC line placed, and infectious disease final recommendations are daptomycin and meropenem IV x 6 weeks. with an ID follow up in 2 weeks. Patient will require home health for changes. case management received approval for discharge home with home health. Will plan for discharge home tonight following antibiotic dose at 6pm. We did reach out to primary care physician and they are wishing for the surgeon to controlled medications initially postoperatively for the first 6 weeks. This was discussed with the patient. He voiced understanding and agreement. (2) Status post revision of total replacement of right knee:
--- NOTE | 2023-06-07 12:04 | PCM.PN.REN ---
Subjective Subjective Sitting in chair no complaints. Hopeful to be discharged home today. Objective Data Objective Data Vital Signs: Vital Signs Temp Pulse Resp BP Pulse Ox O2 Del Method O2 Flow Rate 98.0 F 80 18 152/68 H 98 Room Air 3 06/07/23 10:00 06/07/23 10:34 06/07/23 10:00 06/07/23 10:00 06/07/23 10:00 06/07/23 10:00 05/31/23 15:49 Oxygen Flow Rate (L/min) 3 Oxygen Delivery Method Room Air Weight: 111 kg Body Mass Index (BMI) 38.3 Intake & Output: Intake and Output for Last 24 Hours 06/05/23 06/06/23 06/07/23 23:59 23:59 23:59 Intake Total 1685 / 1685 1230 / 1830 660 / 660 Output Total 1250 / 1250 600 / 600 Balance 435 / 435 1230 / 1830 60 / 60 Lab / Micro Data 06/07/23 05:45 06/07/23 05:45 Labs: Laboratory Results - last 24 hr 06/06/23 11:17: POC Glucose 183 H 06/06/23 17:04: POC Glucose 76 06/06/23 21:53: POC Glucose 121 H 06/07/23 05:45: WBC 7.9, RBC 3.41 L, Hgb 9.3 L, Hct 30.2 L, MCV 88.6, MCH 27.3, MCHC 30.8 L D, RDW Std Deviation 43.4, RDW Coeff of Alexa 13.4, Plt Count 254, MPV 9.4, Immature Gran % (Auto) 0.600, Neut % (Auto) 68.1, Lymph % (Auto) 16.8 L, [place] % (Auto) 9.2, Eos % (Auto) 4.7, Baso % (Auto) 0.6, Absolute Neuts (auto) 5.4, Absolute Lymphs (auto) 1.33, Nucleated RBC % 0, Sodium 145, Potassium 4.7, Chloride 114 H, Carbon Dioxide 28.0, Anion Gap 3 L, BUN 81 H, Creatinine 4.09 H, Estim Creat Clear Calc 17.28, Est GFR (MDRD) Af Amer 19 L, Est GFR (MDRD) Non-Af 16 L, BUN/Creatinine Ratio 19.8, Glucose 62 L, Calcium 8.2 L 06/07/23 06:26: POC Glucose 63 L 06/07/23 06:56: POC Glucose 94 Micro: Microbiology 05/31/23 12:17 Tissue - Knee Gram Stain - Final 05/31/23 12:17 Tissue - Knee Wound Culture - Final Pseudomonas aeruginosa Meth. resistant Staph. aureus 05/31/23 12:17 Tissue - Knee Anaerobic Culture - Final No growth in 5 days. 05/31/23 12:15 Tissue - Knee Gram Stain - Final 05/31/23 12:15 Tissue - Knee Wound Culture - Final Meth. resistant Staph. aureus 05/31/23 12:15 Tissue - Knee Anaerobic Culture - Final No growth in 5 days. 05/31/23 11:55 Tissue - Suprapatellar Pouch Gram Stain - Final 05/31/23 11:55 Tissue - Suprapatellar Pouch Wound Culture - Final Meth. resistant Staph. aureus 05/31/23 11:55 Tissue - Suprapatellar Pouch Anaerobic Culture - Final No growth in 5 days. 05/19/23 07:17 Swab (Method) Nasal Screen MRSA/MSSA - Final Physical Exam Narrative Alert oriented x3, no apparent distress Lung sounds clear anteriorly and posteriorly, no wheezes rhonchi rales noted S1, S2, RRR Abdomen soft, nontender No significant lower extremity edema. WILDER wrap intact to right knee Assessment & Plan Assessment/Plan (1) Acute kidney injury: PLAN: MAICO superimposed on CKD. Patient has underlying CKD, most likely due to diabetic nephropathy. Most recent creatinine prior to admission was 2.43 05/19/2023. Admitted with septic arthritis of right knee. Creatinine 3.47 on admission, peaked at 4.4 mg/dL on 06/03 and today his creatinine has slightly improved to 4.09 mg/dL. MAICO possibly from infection and low BP episode (on 06/01 BP 98/51). Patient is nonoliguric, appears near euvolemic. No acute indication for [employer]. He is hemodynamically stable, his urine output has improved, no significant acidosis and electrolytes are fine. UA on admission negative leukocyte Estrace, no RBC, 25 occult blood, urine protein 500. UPC 6.1 gms Potassium was 5.2, normalized today and recommend to continue low potassium diet restrictions. Reviewed foods to avoid that are potassium rich with patient infection of prosthetic right knee joint, to OR for right knee revision, cx +MRSA and PsA. Antibiotics per ID, Dapto and meropenem x6 weeks (stop date 07/16/23). Blood pressures improved but remains slightly elevated. Increase hydralazine. Continue amlodipine. Recommend to continue off Valsartan until seen in office. Recommend avoiding nephrotoxic agents such as NSAIDs, reviewed with patient. Ok for discharge per renal. We will arrange for hospital follow-up.
[2023-06-07 12:06] LABS: Bedside Glucose 195 mg/dL (74-106)
--- NOTE | 2023-06-07 12:06 | PHA.DC.MR.R ---
Pharmacy [place] Med Reconciliation Pharmacy Service has performed discharge medication reconciliation for this patient. Pt to have weekly CK to monitor pravastatin/daptomycin interaction. The patient's discharge medication list was reviewed for discrepancies and discrepancies were resolved. Medications at Discharge Home Medications escitalopram oxalate 5 mg tablet (Lexapro) 10 mg PO DAILY depression 10/15/16 rkclzial-asu-vrbih acid 0.4 mg-lycopene 300 mcg-lutein 250 mcg tablet (Centrum Silver) 1 ea PO DAILY supplement 10/15/16 omeprazole 20 mg capsule,delayed release 20 mg PO DAILY gerd 10/15/16 insulin aspart U-100 100 unit/mL (3 mL) subcutaneous pen (Novolog FlexPen U-100 Insulin aspart) 30 units subcut BID diabetes 01/15/18 insulin degludec 100 unit/mL (3 mL) subcutaneous pen (Tresiba FlexTouch U-100 insulin) 80 unit SQ BID diabetes 01/15/18 montelukast 10 mg tablet 10 mg PO DAILY@1700 #42 tabs 03/22/18 pravastatin 40 mg tablet 40 mg PO QHS 08/24/18 aspirin 81 mg tablet,delayed release 81 mg PO DAILY 05/17/23 cholecalciferol (vitamin D3) 25 mcg (1,000 unit) tablet (Vitamin D3) 25 mcg PO DAILY 05/17/23 daptomycin 500 mg intravenous solution 750 mg IV Q48 40 days #20 ea 06/05/23 meropenem 500 mg intravenous solution 500 mg IV Q12 40 days #80 ea 06/05/23 acetaminophen 500 mg tablet 1,000 mg (2 x 500 mg) PO Q8 #180 tabs 06/06/23 aspirin 81 mg chewable tablet 81 mg PO BID 4 weeks #56 tabs 06/06/23 oxycodone 5 mg tablet 5 - 10 mg (1 - 2 x 5 mg) PO .4-6 hours prn PRN Pain Score 4-10 7 days #60 tabs 06/06/23
--- NOTE | 2023-06-07 13:15 | CASEMGMT ---
ADRIANA HARDIN NOTE: Per Kanwal @ [employer], she does not need any further information. She states will fax Approved C-9 to this RN CM. Approved C-9 received for IV atb infusion and weekly labs and was faxed to this RN LASHAWN. ADRIANA CM faxed it to [facility], [facility], and Gissel @ [facility]. Per Cathryn @ [facility] she has received the faxed C-9 approval and she has spoken w/. Plan for delivery of atb/supplies to pt's home this PM. Sulma @ [facility] aware and states SOC planned for tomorrow AM b/w 0800 and 0900. Pt made aware. Kurt is aware wound vac dsg due to be changed tomorrow. Pt to receive 10 PM dose of IV merrem tonight @ 6 PM and then can d/c after that is infused. Pt and RNKrystle, aware. Pt denies having further discharge planning needs or concerns. Joellen MATOS RN CM
[2023-06-07] MEDS: Ferrous Sulfate 325 MG Tablet PO (13:27)
[2023-06-07] MEDS: Insulin Lispro 100 UNIT/ML INSULN.PEN SC (13:28)
[2023-06-07 13:30] VITALS: PULSE 80
--- NOTE | 2023-06-07 13:46 | WOUNDNOTE ---
Pt switched over to the home VAC. plan is for patient to discharge home this evening after the antibiotics are complete. home health to change VAC dressing tomorrow. Pt denies questions or concerns.
[2023-06-07 17:00] VITALS: BP 145/60; PULSE 80; RESP 18; TEMP 36.7; O2SAT 95
== END 2023-06-07 18:25 | disposition home health service (06) | DRG 464 ==
LOC: SDC 15:24 → MS3 15:24
PROVIDERS: Anesthesiology; Internal Medicine; Internal Medicine Infectious Disease; Nurse Practitioner Adult Health; Admitting Provider Specialist; PCP Preventive Medicine Occupational Medicine; Referring Provider Specialist; Visit Provider Specialist
PROC: 0SPC0JC Removal of Synthetic Substitute from Right Knee Joint, Patellar Surface, Open Approach (ICD-10-PCS; CPT 27487; principal; 2023-05-31 10:50)
DX: T84.53XA Infection and inflammatory reaction due to internal right knee prosthesis, initial encounter (principal); M00.061 Staphylococcal arthritis, right knee; D62 Acute posthemorrhagic anemia; N17.9 Acute kidney failure, unspecified; E11.649 Type 2 diabetes mellitus with hypoglycemia without coma; E11.21 Type 2 diabetes mellitus with diabetic nephropathy; B95.62 Methicillin resistant Staphylococcus aureus infection as the cause of diseases classified elsewhere; E11.22 Type 2 diabetes mellitus with diabetic chronic kidney disease; Z79.4 Long term (current) use of insulin; J44.9 Chronic obstructive pulmonary disease, unspecified; N18.32 Chronic kidney disease, stage 3b; M24.661 Ankylosis, right knee; K21.9 Gastro-esophageal reflux disease without esophagitis; I25.10 Atherosclerotic heart disease of native coronary artery without angina pectoris; E78.00 Pure hypercholesterolemia, unspecified; I12.9 Hypertensive chronic kidney disease with stage 1 through stage 4 chronic kidney disease, or unspecified chronic kidney disease; I25.2 Old myocardial infarction; I44.4 Left anterior fascicular block; K58.1 Irritable bowel syndrome with constipation; X58.XXXA Exposure to other specified factors, initial encounter; B96.5 Pseudomonas (aeruginosa) (mallei) (pseudomallei) as the cause of diseases classified elsewhere; Z95.5 Presence of coronary angioplasty implant and graft; Z96.651 Presence of right artificial knee joint; Z79.82 Long term (current) use of aspirin; Z79.899 Other long term (current) drug therapy; Z87.891 Personal history of nicotine dependence
CPT/HCPCS: 36415; 36569; 73560; 76770; 80048; 81001; 82040; 82436; 82550; 82570; 82962; 83036; 83735; 83935; 84133; 84156; 84300; 84540; 85025; 85027; 87015; 87070; 87075; 87077; 87081; 87102; 87116; 87176; 87186; 87205; 87206; 93005; 94668; 97110; 97116; 97162; 97166; 97530; 97535; 99252; 99406; C1776; J0878; J2020; J2185; J7040; J7120; A4216; G0463; J2405; J3475; J3490

== ENCOUNTER 2023-06-26 12:17 | Outpatient (RCR) | payer OTHER, SELFPAY ==
[2023-06-12 13:24] LABS: Hematocrit 30.9 % (40-54); Hemoglobin 9.8 g/dL (13.0-16.5); Mean Corp Hgb Conc 31.7 g/dL (32-36); Mean Corpuscular Hgb 27.3 pg (27.0-32.0); Mean Corpuscular Volume 86.1 fL (80-94); Mean Platelet Vol. 9.5 fl (6.2-12.0); Platelet Count 275 K/mm3 (150-450); RBC Distribution Width CV 12.7 % (11.6-14.6); RBC Distribution Width SD 40.2 fl (35.1-43.9); Red Blood Count 3.59 M/mm3 (4.6-6.2); White Blood Count 8.7 K/mm3 (4.4-11.0)
[2023-06-12 13:41] LABS: AST(SGOT) 39 U/L (15-37); Alanine Aminotransfer ALT/SGPT 33 U/L (16-61); Alkaline Phosphatase 91 U/L (45-117); Anion Gap 4 (5-15); BUN 53 mg/dL (7-18); BUN/Creat Ratio 20.9 RATIO (10-20); Bilirubin, Direct < 0.05 mg/dL (0.00-0.30); CPK Total, Creatine Kinase 105 U/L (39-308); Calcium,Total 8.1 mg/dL (8.5-10.1); Chloride 105 mmol/L (98-107); Creatinine, Serum 2.54 mg/dL (0.70-1.30); EST Glomerular Filtration Rate 27 mL/min (>60); Est Glom Filt Rate - Afr Amer 33 mL/min (>60); Globulin 3.9 g/dL (2.2-4.2); Glucose 191 mg/dL (74-106); Potassium 4.7 mmol/L (3.5-5.1); Protein, Total 5.9 g/dL (6.4-8.2); Sodium Level 138 mmol/L (136-145)
[2023-06-12 13:47] LABS: Erythrocyte Sedimentation Rate 53 mm/hr (0-20)
[2023-06-19 13:13] LABS: Hematocrit 31.4 % (40-54); Hemoglobin 9.6 g/dL (13.0-16.5); Mean Corp Hgb Conc 30.6 g/dL (32-36); Mean Corpuscular Hgb 26.9 pg (27.0-32.0); Mean Platelet Vol. 9.6 fl (6.2-12.0); Platelet Count 314 K/mm3 (150-450); RBC Distribution Width CV 12.9 % (11.6-14.6); RBC Distribution Width SD 41.5 fl (35.1-43.9); Red Blood Count 3.57 M/mm3 (4.6-6.2); White Blood Count 10.1 K/mm3 (4.4-11.0)
[2023-06-19 13:29] LABS: Erythrocyte Sedimentation Rate 69 mm/hr (0-20)
[2023-06-19 14:17] LABS: AST(SGOT) 39 U/L (15-37); Alanine Aminotransfer ALT/SGPT 44 U/L (16-61); Albumin, Serum 2.2 g/dL (3.2-5.0); Alkaline Phosphatase 102 U/L (45-117); Anion Gap 5 (5-15); BUN 65 mg/dL (7-18); Bilirubin, Direct 0.07 mg/dL (0.00-0.30); CPK Total, Creatine Kinase 107 U/L (39-308); Calcium,Total 8.5 mg/dL (8.5-10.1); Chloride 106 mmol/L (98-107); Creatinine, Serum 3.09 mg/dL (0.70-1.30); EST Glomerular Filtration Rate 22 mL/min (>60); Est Glom Filt Rate - Afr Amer 26 mL/min (>60); Glucose 37 mg/dL (74-106); Potassium 4.9 mmol/L (3.5-5.1); Protein, Total 6.2 g/dL (6.4-8.2); Sodium Level 138 mmol/L (136-145)
[2023-06-26 12:58] LABS: Hemoglobin 10.2 g/dL (13.0-16.5); Mean Corp Hgb Conc 31.9 g/dL (32-36); Mean Corpuscular Hgb 27.4 pg (27.0-32.0); Mean Platelet Vol. 9.8 fl (6.2-12.0); Platelet Count 269 K/mm3 (150-450); RBC Distribution Width CV 12.7 % (11.6-14.6); RBC Distribution Width SD 39.7 fl (35.1-43.9); Red Blood Count 3.72 M/mm3 (4.6-6.2); White Blood Count 8.2 K/mm3 (4.4-11.0)
[2023-06-26 13:06] LABS: Erythrocyte Sedimentation Rate 41 mm/hr (0-20)
[2023-06-26 13:54] LABS: AST(SGOT) 24 U/L (15-37); Alanine Aminotransfer ALT/SGPT 32 U/L (16-61); Albumin, Serum 2.1 g/dL (3.2-5.0); Alkaline Phosphatase 115 U/L (45-117); Anion Gap 6 (5-15); BUN 74 mg/dL (7-18); BUN/Creat Ratio 24.5 RATIO (10-20); Bilirubin, Direct 0.08 mg/dL (0.00-0.30); CPK Total, Creatine Kinase 122 U/L (39-308); Calcium,Total 8.5 mg/dL (8.5-10.1); Chloride 108 mmol/L (98-107); Creatinine, Serum 3.02 mg/dL (0.70-1.30); EST Glomerular Filtration Rate 22 mL/min (>60); Est Glom Filt Rate - Afr Amer 27 mL/min (>60); Globulin 4.3 g/dL (2.2-4.2); Glucose 125 mg/dL (74-106); Potassium 4.3 mmol/L (3.5-5.1); Protein, Total 6.4 g/dL (6.4-8.2); Sodium Level 139 mmol/L (136-145)
== END 2023-06-26 21:09 | disposition home or self-care (01) ==
LOC: HHLAB 12:17
PROVIDERS: PCP Preventive Medicine Occupational Medicine; Referring Provider Specialist; Visit Provider Specialist
DX: T84.53XA Infection and inflammatory reaction due to internal right knee prosthesis, initial encounter (principal); B95.62 Methicillin resistant Staphylococcus aureus infection as the cause of diseases classified elsewhere
CPT/HCPCS: 80048; 80076; 82550; 85027; 85652

== ENCOUNTER → 2025-02-17 | Outpatient (CLI) | payer OTHER, SELFPAY ==
--- NOTE | 2025-02-17 09:26 | VDUE_ITS ---
Reason For Study Reason For Study: Pre op Right Arm Left Arm Cephalic Vein at distal forearm measures 0.23 x 0.22 Cephalic Vein at distal forearm measures 0.12 x 0.14 cm. cm. Cephalic Vein at mid forearm measures 0.25 x 0.24 cm. Cephalic Vein at mid forearm measures 0.12 x 0.12 cm. Cephalic Vein proximal forearm measures 0.22 x 0.25 Cephalic Vein proximal forearm measures 0.15 x 0.15 cm. cm. Cephalic Vein distal upper arm measures 0.43 x 0.42 Cephalic Vein distal upper arm measures 0.36 x 0.36 cm. cm. Cephalic Vein at mid upper arm measures 0.36 x 0.38 Cephalic Vein at mid upper arm measures 0.36 x 0.33 cm. cm. Cephalic Vein at proximal upper arm measures 0.41 x Cephalic Vein at proximal upper arm measures 0.32 x 0.42 cm. 0.32 cm. Proximal Basilic vein measures 0.44 x 0.42 cm. Proximal Basilic vein measures 0.58 x 0.52 cm. Mid Basilic vein measures 0.35 x 0.35 cm. Mid Basilic vein measures 0.49 x 0.49 cm. Distal Basilic vein measures 0.37 x 0.39 cm. Distal Basilic vein measures 0.43 x 0.47 cm. Brachial artery measures 0.43 x 0.44 cm with a Brachial artery measures 0.46 x 0.46 cm with a velocity of 138.1 cm/sec. velocity of 122.7 cm/sec. Radial artery measures 0.20 x 0.21 cm with a velocity Radial artery measures 0.21 x 0.22 cm with a velocity of 96.4 cm/sec. of 87.6 cm/sec. Procedure Exam performed in department. VL/Dialysis Vein Map PRE-OP BILAT Interpretation Summary Bilateral upper extremity arteries patent with normal waveforms and measurement s above. Bilateral upper extremity veins patent with measurements above. Ordering Physician: Marleny William Referring Physician: Ben Lipscomb Performed By: Argelia Bowers RVT ???
== END | disposition home or self-care (01) ==
LOC: CVS 09:23
PROVIDERS: PCP Preventive Medicine Occupational Medicine; Referring Provider Physician Assistant; Visit Provider Physician Assistant
DX: N18.6 End stage renal disease (principal); Z99.2 Dependence on renal dialysis
CPT/HCPCS: 93985

== ENCOUNTER → 2025-03-21 | Outpatient (CLI) | payer OTHER, SELFPAY ==
[2025-03-21 19:20] LABS: Absolute Lymphocyte Count 1.58 X10^3/uL (0.83-4.51); Absolute Neutrophil Count 3.7 X10^3/uL (2.0-7.7); Basophil# 0.06 X10^3/uL; Eosinophil# 0.41 X10^3/uL; Eosinophils% 6.6 % (0-5); Hematocrit 34.7 % (40-54); Hemoglobin 11.4 g/dL (13.0-16.5); Lymphocyte # 1.58 X10^3/ul (0.83-4.51); Lymphocyte % 25.3 % (19-41); Mean Corp Hgb Conc 32.9 g/dL (32-36); Mean Corpuscular Hgb 26.8 pg (27.0-32.0); Mean Corpuscular Volume 81.6 fL (80-94); Mean Platelet Vol. 10.2 fl (6.2-12.0); Monocyte# 0.45 X10^3/uL; Monocyte% 7.2 % (0-10); NRBC Flagged by Analyzer 0 % (0-5); Neutrophil # 3.72 X10^3/uL (2.7-7.7); Neutrophil % 59.6 % (47-70); Platelet Count 182 K/mm3 (150-450); RBC Distribution Width SD 40.7 fl (35.1-43.9); Red Blood Count 4.25 M/mm3 (4.6-6.2); White Blood Count 6.2 K/mm3 (4.4-11.0)
[2025-03-21 20:38] LABS: BUN 20 mg/dL (4-19)
[2025-03-21 20:58] LABS: BUN 59 mg/dL (4-19); Hepatitis B Surface Antigen Nonreactive (Nonreactive); Potassium 4.7 mmol/L (3.3-5.1)
== END | disposition home or self-care (01) ==
LOC: LABSPEC 18:34
PROVIDERS: PCP Preventive Medicine Occupational Medicine; Visit Provider Internal Medicine Nephrology
DX: Z00.00 Encounter for general adult medical examination without abnormal findings (principal)
CPT/HCPCS: 84132; 84520; 85025; 87340

== ENCOUNTER 2025-04-01 09:09 | Day surgery (SDC) | payer OTHER, SELFPAY ==
--- NOTE | 2025-03-18 18:36 | PAT.ANESEVAL ---
Pre-Assessment Diagnosis/Proposed Procedure Planned Operative Procedure(s): AV FISTULA, PROB LEFT ARM Anesthesia History Anesthesia History - manager drug safety: Anesthesia History - manager drug safety Hx Hospitalization Yes: [facility] 10/2024, 02/202503/18/25 08:43 CKD Any Problems With Anesthesia No 03/18/25 08:43 Cholinesterase deficiency No 03/18/25 08:43 You/Your Family Experience No 03/18/25 08:43 fever (hyperthermia) with Relationship Recent Exposure to Contagious No 05/31/23 09:34 Disease Does patient have nerve No 03/18/25 08:43 stimulator Patient instructed to have device shut off --Does patient have Pacemaker or ICD? When Was Last Pacemaker Check QUESTION #4 FULL TEXT: You/Your Family Experience fever (hyperthermia) with Anesthesia Last Oral Intake Last Oral intake: Last Oral Intake NPO since Meds taken in AM with sips of water? Meds patient instructed to take am of surgery PONV PONV - manager drug safety: PONV - manager drug safety Female No 03/18/25 08:43 HX of Motion Sickness No 03/18/25 08:43 HX of N/V After Surgery No 03/18/25 08:43 Non-Smoker Yes 03/18/25 08:43 Duration of Surgery greater Yes 03/18/25 08:43 than 60 minutes Number of Risk Factors 2 03/18/25 08:43 PONV Score Moderate Risk 03/18/25 08:43 Height & Weight Height & Weight: Anesthesia: Height & Weight Height 5 ft 7 in 06/06/23 12:56 Respiratory Assessment Respiratory Assessment - manager drug safety: Respiratory Tract Infection Hx - manager drug safety Hx Respiratory Tract Infection No 03/18/25 08:43 STOP Sleep Apnea STOP Sleep Apnea - manager drug safety: STOP Sleep Apnea - manager drug safety Hx Hypertension Yes 03/18/25 08:43 Hx Sleep Apnea No 03/18/25 08:43 CPAP No 05/31/23 14:10 BIPAP No 03/05/18 14:57 Do you snore loudly (louder No 03/18/25 08:43 than talking or can be heard Do you often feel tired/ No 03/18/25 08:43 fatigued/ sleepy during daytime? Has anyone observed you stop No 03/18/25 08:43 breathing during sleep? STOP Results Negative 03/18/25 08:43 QUESTION #5 FULL TEXT : Do you snore loudly (louder than talking or can be heard through closed doors)? 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 Specify any problems Hx of Preganancy in last 3 N/A 03/18/25 08:43 Months Nurse Filling Out Transfusion [facility] 03/18/25 08:43 & Questions: Date: 03/18/25 03/18/25 08:43 Time: 08:56 03/18/25 08:43 Patient unable to answer at this time (ie. 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 - manager drug safety: /Reproductive Hx- manager drug safety Hx Now Gestational Age (in weeks): EDC: Hx Hx Para Hx Section SAB No 05/17/23 10:18 PFSH Medical History (Updated 03/18/25 @ 08:54 by Antonina Mcmillan) MRSA infection History of renal disease History of renal dialysis Former smoker History of echocardiogram History of heart attack Loss of hearing Wears dentures Depression Alcohol use Insulin dependent diabetes mellitus Arthritis High cholesterol Back pain History of hiatal hernia Dietary restriction Gastric reflux COPD (chronic obstructive pulmonary disease) Smoker History of pain when walking History of edema History of stress test Cardiology follow-up encounter Hypertension NSTEMI (non-ST elevated myocardial infarction) Home Medications ?Medication ?Instructions ?Recorded ?Last Taken ?Type escitalopram oxalate 5 mg tablet 10 mg PO DAILY depression 10/15/16 10/15/16 History (Lexapro) njjywuhd-umt-cbhbn acid 0.4 1 ea PO DAILY supplement 10/15/16 Unknown History mg-lycopene 300 mcg-lutein 250 mcg tablet (Centrum Silver) omeprazole 20 mg capsule,delayed 20 mg PO DAILY gerd 10/15/16 05/31/23 History release insulin degludec 100 unit/mL (3 60 unit subcut Q24H diabetes 01/15/18 Unknown History mL) subcutaneous pen (Tresiba FlexTouch U-100 insulin) montelukast 10 mg tablet 10 mg PO DAILY@1700 #42 tabs 03/22/18 Unknown Rx pravastatin 40 mg tablet 40 mg PO QHS 08/24/18 Unknown History cholecalciferol (vitamin D3) 25 25 mcg PO DAILY 05/17/23 Unknown History mcg (1,000 unit) tablet (Vitamin D3) acetaminophen 500 mg tablet 1,000 mg (2 x 500 mg) PO Q8 #180 06/06/23 Unknown Rx tabs oxycodone 5 mg tablet 5 - 10 mg (1 - 2 x 5 mg) PO .4-6 06/06/23 Unknown Rx hours prn PRN Pain Score 4-10 7 days #60 tabs ondansetron HCl 4 mg tablet 4 mg PO Q8H PRN nausea and vomiting 02/06/25 Unknown History furosemide 40 mg tablet (Lasix) 40 mg PO QAM 03/03/25 Unknown History albuterol sulfate 90 mcg/actuation inhalation Q6H PRN PRN wheezing 03/18/25 Unknown History aerosol inhaler amlodipine 5 mg tablet 5 mg PO QPM 03/18/25 Unknown History aspirin 81 mg chewable tablet 81 mg PO DAILY 03/18/25 Unknown History clopidogrel 75 mg tablet 75 mg PO DAILY 03/18/25 Unknown History ezetimibe 10 mg tablet 10 mg PO DAILY 03/18/25 Unknown History losartan 100 mg tablet 100 mg PO DAILY 03/18/25 Unknown History losartan 25 mg tablet 25 mg PO BID 03/18/25 Unknown History metoprolol tartrate 25 mg tablet 25 mg PO BID 03/18/25 Unknown History midodrine 5 mg tablet 5 mg PO MOWEFR 03/18/25 Unknown History semaglutide 7 mg tablet (Rybelsus) 7 mg PO DAILY 03/18/25 Unknown History Allergy/AdvReac Type Severity Reaction Status Date / Time bee venom protein (honey Allergy Swelling Verified 03/18/25 08:31 bee) (bee sting) Surgical History (Updated 03/18/25 @ 08:54 by Antonina Mcmillan) History of heart surgery History of elbow surgery H/O heart artery stent (~11/06/24) Hx of knee surgery History of arthroplasty of knee Hx of left cataract extraction Hx of knee surgery Hx of knee surgery Hx of total knee arthroplasty Hx of right cataract extraction Hx of foot surgery Hx of arthroscopy Hx laparoscopic cholecystectomy Hx of hernia repair Hx of arthroscopy of right knee Status post coronary artery stent placement Coronary angioplasty status Status post revision of total replacement of right knee Social History Smoking Status: Former smoker how long ago did patient quit smokin years Audit: Pertinent Findings Pertinent Findings EKG Perinent findings: 02/17/2025. Sinus rhythm. PACs. Left atrial enlargement. LVH. December 16, 2024. Sinus rhythm with PACs. LVH with left axis deviation and secondary repolarization changes. Echo (EF%) pertinent findings: February 19, 2025. Ejection fraction 25 to 30%. Systolic function is severely reduced. No aortic stenosis. Tricuspid valve is structurally normal. October 2024. Ejection fraction 45 to 50%. Consult pertinent findings: December 16, 2024. Dr. Talbot. 1. Coronary artery disease in [place] artery-status post PCI and stent of the proximal RCA June 2018. Patient had a non-STEMI last month November 04. Cardiac cath showed multivessel coronary artery disease. CABG November 06, 2024 with MAX to the LAD, SVG to the obtuse marginal and SVG to the PDA. 2. Left carotid stenosis?severe stenosis of internal carotid artery. 3. Chronic kidney disease?now on hemodialysis. 4. Cxrfjcjzuavf-upda-lallszneue. 5. Hoarseness ever since previous surgery. Referral to ENT. Recommendation Anesthesia Recommendation Anesthesia recommendation: F/U recommended (Patient has significant drop-off in cardiac function from October 2024 to January 2025. The last cardiology evaluation was in November 2024. Has anyone seen him since his last echo and if not he probably needs to be seen.)
[2025-03-20 17:25] LABS: Hematocrit 34.5 % (40-54); Hemoglobin 11.3 g/dL (13.0-16.5); Mean Corp Hgb Conc 32.8 g/dL (32-36); Mean Corpuscular Hgb 27.3 pg (27.0-32.0); Mean Corpuscular Volume 83.3 fL (80-94); Mean Platelet Vol. 9.5 fl (6.2-12.0); Platelet Count 165 K/mm3 (150-450); RBC Distribution Width CV 14.2 % (11.6-14.6); RBC Distribution Width SD 42.6 fl (35.1-43.9); Red Blood Count 4.14 M/mm3 (4.6-6.2); White Blood Count 7.6 K/mm3 (4.4-11.0)
[2025-03-20 18:03] LABS: Anion Gap 16 (5-15); BUN 49 mg/dL (4-19); BUN/Creat Ratio 9.8 RATIO (10-20); Calcium,Total 8.9 mg/dL (7.6-11.0); Carbon Dioxide 24.8 mmol/L (21.0-32.0); Chloride 94 mmol/L (98-108); Creatinine, Serum 4.97 mg/dL (0.70-1.20); EST Glomerular Filtration Rate 12 (>60); Glucose 173 mg/dL (70-99); Potassium 4.6 mmol/L (3.3-5.1); Sodium Level 135 mmol/L (133-145)
--- NOTE | 2025-03-31 14:10 | PAT.ANE_ITS ---
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 When Was Last Pacemaker Check QUESTION #4 FULL TEXT: You/Your Family Experience fever (hyperthermia) with Anesthesia Last Oral Intake Last Oral intake: Last Oral Intake NPO since Meds taken in AM with sips of water? Meds patient instructed to take am of surgery PONV PONV - leadership program internship: PONV - leadership program internship Female No 03/18/25 08:43 HX of Motion Sickness No 03/18/25 08:43 HX of N/V After Surgery No 03/18/25 08:43 Non-Smoker Yes 03/18/25 08:43 Duration of Surgery greater Yes 03/18/25 08:43 than 60 minutes Number of Risk Factors 2 03/18/25 08:43 PONV Score Moderate Risk 03/18/25 08:43 Height & Weight Height & Weight: Anesthesia: Height & Weight Height 5 ft 7 in 06/06/23 12:56 Respiratory Assessment Respiratory Assessment - leadership program internship: Respiratory Tract Infection Hx - leadership program internship Hx Respiratory Tract Infection No 03/18/25 08:43 STOP Sleep Apnea STOP Sleep Apnea - leadership program internship: STOP Sleep Apnea - leadership program internship Hx Hypertension Yes 03/18/25 08:43 Hx Sleep Apnea No 03/18/25 08:43 CPAP No 05/31/23 14:10 BIPAP No 03/05/18 14:57 Do you snore loudly (louder No 03/18/25 08:43 than talking or can be heard Do you often feel tired/ No 03/18/25 08:43 fatigued/ sleepy during daytime? Has anyone observed you stop No 03/18/25 08:43 breathing during sleep? STOP Results Negative 03/18/25 08:43 QUESTION #5 FULL TEXT : Do you snore loudly (louder than talking or can be heard through closed doors)? 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 Specify any problems Hx of Preganancy in last 3 N/A 03/18/25 08:43 Months Nurse Filling Out Transfusion [place] 03/18/25 08:43 & Questions: Date: 03/18/25 03/18/25 08:43 Time: 08:56 03/18/25 08:43 Patient unable to answer at this time (ie. 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 - leadership program internship: /Reproductive Hx- leadership program internship Hx Now Gestational Age (in weeks): EDC: Hx Hx Para Hx Section SAB No 05/17/23 10:18 Active Medications Active Medications: Current Medications Generic Name Dose Route Start Last Admin Trade Name Freq PRN Reason Stop Dose Admin Cefazolin Sodium 2 gm/ Sodium 110 mls @ 150 mls/hr 04/01/25 11:30 Chloride IV 04/01/25 12:13 INTRAOP ONE [facility] Medical History (Updated 03/18/25 @ 08:54 by Antonina Mcmillan) MRSA infection History of renal disease History of renal dialysis Former smoker History of echocardiogram History of heart attack Loss of hearing Wears dentures Depression Alcohol use Insulin dependent diabetes mellitus Arthritis High cholesterol Back pain History of hiatal hernia Dietary restriction Gastric reflux COPD (chronic obstructive pulmonary disease) Smoker History of pain when walking History of edema History of stress test Cardiology follow-up encounter Hypertension NSTEMI (non-ST elevated myocardial infarction) Home Medications ?Medication ?Instructions ?Recorded ?Last Taken ?Type escitalopram oxalate 5 mg tablet 10 mg PO DAILY depres donell 10/15/16 10/15/16 History (Lexapro) xqarzeuo-pns-[id number] acid 0.4 1 ea PO DAILY supplement 1 12/15/15 Unknown History mg-lycopene 300 mcg-lutein 250 mcg tablet (Centrum Silver) omeprazole 20 mg capsule,delayed 20 mg PO DAILY gerd 1 12/15/15 05/31/23 History release insulin degludec 100 unit/mL (3 60 unit subcut Q24H di abetes 01/15/18 Unknown History mL) subcutaneous pen (Tresiba FlexTouch U-100 insulin) montelukast 10 mg tablet 10 mg PO DAILY@1700 #42 tabs 03/22/18 Unknown Rx pravastatin 40 mg tablet 40 mg PO QHS 08/24/18 Unknow n History cholecalciferol (vitamin D3) 25 25 mcg PO DAILY Unknown History mcg (1,000 unit) tablet (Vitamin D3) acetaminophen 500 mg tablet 1,000 mg (2 x 500 mg) PO Q 8 #180 06/06/23 Unknown Rx tabs oxycodone 5 mg tablet 5 - 10 mg (1 - 2 x 5 mg) PO .4-6 06/06/23 Unknown Rx hours prn PRN Pain Score 4-10 7 days #60 tabs ondansetron HCl 4 mg tablet 4 mg PO Q8H PRN nausea and vomiting 02/06/25 Unknown History furosemide 40 mg tablet (Lasix) 40 mg PO QAM 03/03/25 Unknown History albuterol sulfate 90 mcg/actuation inhalation Q6H PRN PRN wheezing 03/18/25 Unknown History aerosol inhaler amlodipine 5 mg tablet 5 mg PO QPM 03/18/25 Unknown History aspirin 81 mg chewable tablet 81 mg PO DAILY 03/18/25 Unknown History clopidogrel 75 mg tablet 75 mg PO DAILY 03/18/25 Unkn own History ezetimibe 10 mg tablet 10 mg PO DAILY 03/18/25 Unkn own History losartan 100 mg tablet 100 mg PO DAILY 03/18/25 Unk nown History losartan 25 mg tablet 25 mg PO BID 03/18/25 Unknow n History metoprolol tartrate 25 mg tablet 25 mg PO BID 03/18/25 Unknown History midodrine 5 mg tablet 5 mg PO MOWEFR 03/18/25 Unkn own History semaglutide 7 mg tablet (Rybelsus) 7 mg PO DAILY 03/18 Unknown History Allergy/AdvReac Type Severity Reaction Status Date / Time bee venom protein (honey Allergy Swelling Verified 03/18/25 08:31 bee) (bee sting) Surgical History (Updated 03/18/25 @ 08:54 by Antonina Mcmillan) History of heart surgery History of elbow surgery H/O heart artery stent (~11/06/24) Hx of knee surgery History of arthroplasty of knee Hx of left cataract extraction Hx of knee surgery Hx of knee surgery Hx of total knee arthroplasty Hx of right cataract extraction Hx of foot surgery Hx of arthroscopy Hx laparoscopic cholecystectomy Hx of hernia repair Hx of arthroscopy of right knee Status post coronary artery stent placement Coronary angioplasty status Status post revision of total replacement of right knee Social History Smoking Status: Former smoker how long ago did patient quit smokin years Audit: Pertinent Findings HISTORY of Pertinent Findings History of Pertinent Findings: EKG Pertinent Findings EKG Perinent findings 02/17/2025. Sinus rhythm. 03/18/25 18:45 PACs. Left atrial enlargement. LVH. December 16, 2024. Sinus rhythm with PACs. LVH with left axis deviation and secondary repolarization changes. Echo Pertinent Findings Echo (EF%) pertinent findings February 19, 2025. Ejection 03/18/25 18:50 fraction 25 to 30%. Systolic function is severely reduced. No aortic stenosis. Tricuspid valve is structurally normal. October 2024. Ejection fraction 45 to 50%. Consult Pertinent Findings Consult pertinent findings December 16, 2024. 03/18/25 18:47 Antione. 1. Coronary artery disease in [place] artery-status post PCI and stent of the proximal RCA June 2018. Patient had a non-STEMI last month November 04. Cardiac cath showed multivessel coronary artery disease. CABG November 06, 2024 with MAX to the LAD, SVG to the obtuse marginal and SVG to the PDA. 2. Left carotid stenosis? severe stenosis of internal carotid artery. 3. Chronic kidney disease? now on hemodialysis. 4. Hypertension-well- controlled. 5. Hoarseness ever since previous surgery. Referral to ENT. Recommendation Anesthesia Recommendation Anesthesia recommendation: F/U recommended (Please obtain latest artist's model note from artist's model office -- as per clearance, he was seen 03/28/25 by the artist's model. )
--- NOTE | 2025-03-31 15:27 | PAT.ANESEVAL ---
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 When Was Last Pacemaker Check QUESTION #4 FULL TEXT: You/Your Family Experience fever (hyperthermia) with Anesthesia Last Oral Intake Last Oral intake: Last Oral Intake NPO since Meds taken in AM with sips of water? 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 maker Female No 03/18/25 08:43 HX of Motion Sickness No 03/18/25 08:43 HX of N/V After Surgery No 03/18/25 08:43 Non-Smoker Yes 03/18/25 08:43 Duration of Surgery greater Yes 03/18/25 08:43 than 60 minutes Number of Risk Factors 2 03/18/25 08:43 PONV Score Moderate Risk 03/18/25 08:43 Height & Weight Height & Weight: Anesthesia: Height & Weight Height 5 ft 7 in 06/06/23 12:56 Respiratory Assessment Respiratory Assessment - electrical instrument maker: Respiratory Tract Infection Hx - electrical instrument maker Hx Respiratory Tract Infection No 03/18/25 08:43 STOP Sleep Apnea STOP Sleep Apnea - electrical instrument maker: STOP Sleep Apnea - electrical instrument maker Hx Hypertension Yes 03/18/25 08:43 Hx Sleep Apnea No 03/18/25 08:43 CPAP No 05/31/23 14:10 BIPAP No 03/05/18 14:57 Do you snore loudly (louder No 03/18/25 08:43 than talking or can be heard Do you often feel tired/ No 03/18/25 08:43 fatigued/ sleepy during daytime? Has anyone observed you stop No 03/18/25 08:43 breathing during sleep? STOP Results Negative 03/18/25 08:43 QUESTION #5 FULL TEXT : Do you snore loudly (louder than talking or can be heard through closed doors)? 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 Specify any problems Hx of Preganancy in last 3 N/A 03/18/25 08:43 Months Nurse Filling Out Transfusion [place] 03/18/25 08:43 & Questions: Date: 03/18/25 03/18/25 08:43 Time: 08:56 03/18/25 08:43 Patient unable to answer at this time (ie. 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 Hx Now Gestational Age (in weeks): EDC: Hx Hx Para Hx Section SAB No 05/17/23 10:18 Active Medications Active Medications: Current Medications Generic Name Dose Route Start Last Admin Trade Name Freq PRN Reason Stop Dose Admin Cefazolin Sodium 2 gm/ Sodium 110 mls @ 150 mls/hr 04/01/25 11:30 Chloride IV 04/01/25 12:13 INTRAOP ONE [facility] Medical History (Updated 03/18/25 @ 08:54 by Antonina Mcmillan) MRSA infection History of renal disease History of renal dialysis Former smoker History of echocardiogram History of heart attack Loss of hearing Wears dentures Depression Alcohol use Insulin dependent diabetes mellitus Arthritis High cholesterol Back pain History of hiatal hernia Dietary restriction Gastric reflux COPD (chronic obstructive pulmonary disease) Smoker History of pain when walking History of edema History of stress test Cardiology follow-up encounter Hypertension NSTEMI (non-ST elevated myocardial infarction) Home Medications ?Medication ?Instructions ?Recorded ?Last Taken ?Type escitalopram oxalate 5 mg tablet 10 mg PO DAILY depression 10/15/16 10/15/16 History (Lexapro) [id number]-uex-hjaod acid 0.4 1 ea PO DAILY supplement 10/15/16 Unknown History mg-lycopene 300 mcg-lutein 250 mcg tablet (Centrum Silver) omeprazole 20 mg capsule,delayed 20 mg PO DAILY gerd 10/15/16 05/31/23 History release insulin degludec 100 unit/mL (3 60 unit subcut Q24H diabetes 01/15/18 Unknown History mL) subcutaneous pen (Tresiba FlexTouch U-100 insulin) montelukast 10 mg tablet 10 mg PO DAILY@1700 #42 tabs 03/22/18 Unknown Rx pravastatin 40 mg tablet 40 mg PO QHS 08/24/18 Unknown History cholecalciferol (vitamin D3) 25 25 mcg PO DAILY 05/17/23 Unknown History mcg (1,000 unit) tablet (Vitamin D3) acetaminophen 500 mg tablet 1,000 mg (2 x 500 mg) PO Q8 #180 06/06/23 Unknown Rx tabs oxycodone 5 mg tablet 5 - 10 mg (1 - 2 x 5 mg) PO .4-6 06/06/23 Unknown Rx hours prn PRN Pain Score 4-10 7 days #60 tabs ondansetron HCl 4 mg tablet 4 mg PO Q8H PRN nausea and vomiting 02/06/25 Unknown History furosemide 40 mg tablet (Lasix) 40 mg PO QAM 03/03/25 Unknown History albuterol sulfate 90 mcg/actuation inhalation Q6H PRN PRN wheezing 03/18/25 Unknown History aerosol inhaler amlodipine 5 mg tablet 5 mg PO QPM 03/18/25 Unknown History aspirin 81 mg chewable tablet 81 mg PO DAILY 03/18/25 Unknown History clopidogrel 75 mg tablet 75 mg PO DAILY 03/18/25 Unknown History ezetimibe 10 mg tablet 10 mg PO DAILY 03/18/25 Unknown History losartan 100 mg tablet 100 mg PO DAILY 03/18/25 Unknown History losartan 25 mg tablet 25 mg PO BID 03/18/25 Unknown History metoprolol tartrate 25 mg tablet 25 mg PO BID 03/18/25 Unknown History midodrine 5 mg tablet 5 mg PO MOWEFR 03/18/25 Unknown History semaglutide 7 mg tablet (Rybelsus) 7 mg PO DAILY 03/18/25 Unknown History Allergy/AdvReac Type Severity Reaction Status Date / Time bee venom protein (honey Allergy Swelling Verified 03/18/25 08:31 bee) (bee sting) Surgical History (Updated 03/18/25 @ 08:54 by Antonina Mcmillan) History of heart surgery History of elbow surgery H/O heart artery stent (~11/06/24) Hx of knee surgery History of arthroplasty of knee Hx of left cataract extraction Hx of knee surgery Hx of knee surgery Hx of total knee arthroplasty Hx of right cataract extraction Hx of foot surgery Hx of arthroscopy Hx laparoscopic cholecystectomy Hx of hernia repair Hx of arthroscopy of right knee Status post coronary artery stent placement Coronary angioplasty status Status post revision of total replacement of right knee Social History Smoking Status: Former smoker how long ago did patient quit smokin years Audit: Pertinent Findings HISTORY of Pertinent Findings History of Pertinent Findings: EKG Pertinent Findings EKG Perinent findings 02/17/2025. Sinus rhythm. 03/18/25 18:45 PACs. Left atrial enlargement. LVH. December 16, 2024. Sinus rhythm with PACs. LVH with left axis deviation and secondary repolarization changes. Echo Pertinent Findings Echo (EF%) pertinent findings February 19, 2025. Ejection 03/18/25 18:50 fraction 25 to 30%. Systolic function is severely reduced. No aortic stenosis. Tricuspid valve is structurally normal. October 2024. Ejection fraction 45 to 50%. Consult Pertinent Findings Consult pertinent findings December 16, 2024. 03/18/25 18:47 Antione. 1. Coronary artery disease in [place] artery-status post PCI and stent of the proximal RCA June 2018. Patient had a non-STEMI last month November 04. Cardiac cath showed multivessel coronary artery disease. CABG November 06, 2024 with MAX to the LAD, SVG to the obtuse marginal and SVG to the PDA. 2. Left carotid stenosis? severe stenosis of internal carotid artery. 3. Chronic kidney disease? now on hemodialysis. 4. Hypertension-well- controlled. 5. Hoarseness ever since previous surgery. Referral to ENT. 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 EF 25-30% as previously documented. )
[2025-04-01] VITALS (9 sets, daily range): BP systolic 94–122; BP diastolic 42–74; PULSE 78–86; RESP 16–18; TEMP 36.3–36.9; O2SAT 98–100; BMI 31.3
[2025-04-01] MEDS: 0.9% Normal Saline (500mL Bag) 500 ML 15 ML IV (09:57)
[2025-04-01 10:03] LABS: Bedside Glucose 139 mg/dL (74-106)
--- NOTE | 2025-04-01 10:04 | PCM.HP.BLA ---
History and Physical Allergies bee venom protein (honey bee) (bee sting) Allergy (Verified 03/03/25 16:34) Swelling Medications ?Medication ?Instructions ?Recorded ?Confirmed ?Type escitalopram oxalate 5 mg tablet 10 mg PO DAILY depression 10/15/16 03/03/25 History (Lexapro) rmbhkvgq-tfl-zjilk acid 0.4 1 ea PO DAILY supplement 10/15/16 03/03/25 History mg-lycopene 300 mcg-lutein 250 mcg tablet (Centrum Silver) omeprazole 20 mg capsule,delayed 20 mg PO DAILY gerd 10/15/16 03/03/25 History release insulin aspart U-100 100 unit/mL 30 units subcut BID diabetes 01/15/18 03/03/25 History (3 mL) subcutaneous pen (Novolog FlexPen U-100 Insulin aspart) insulin degludec 100 unit/mL (3 80 unit SQ BID diabetes 01/15/18 03/03/25 History mL) subcutaneous pen (Tresiba FlexTouch U-100 insulin) montelukast 10 mg tablet 10 mg PO DAILY@1700 #42 tabs 03/22/18 03/03/25 Rx pravastatin 40 mg tablet 40 mg PO QHS 08/24/18 03/03/25 History cholecalciferol (vitamin D3) 25 25 mcg PO DAILY 05/17/23 03/03/25 History mcg (1,000 unit) tablet (Vitamin D3) daptomycin 500 mg intravenous 750 mg IV Q48 40 days #20 ea 06/05/23 03/03/25 Rx solution meropenem 500 mg intravenous 500 mg IV Q12 40 days #80 ea 06/05/23 03/03/25 Rx solution acetaminophen 500 mg tablet 1,000 mg (2 x 500 mg) PO Q8 #180 06/06/23 03/03/25 Rx tabs aspirin 81 mg chewable tablet 81 mg PO BID 4 weeks #56 tabs 06/06/23 03/03/25 Rx oxycodone 5 mg tablet 5 - 10 mg (1 - 2 x 5 mg) PO .4-6 06/06/23 03/03/25 Rx hours prn PRN Pain Score 4-10 7 days #60 tabs ondansetron HCl 4 mg tablet 4 mg PO Q8H PRN 02/06/25 03/03/25 History furosemide 40 mg tablet (Lasix) 40 mg PO QAM 03/03/25 03/03/25 History Have you fallen in the past year?: No PFSH Medical History Loss of hearing Wears dentures Depression Alcohol use Insulin dependent diabetes mellitus Arthritis High cholesterol Back pain History of hiatal hernia Dietary restriction Gastric reflux COPD (chronic obstructive pulmonary disease) Smoker History of pain when walking History of edema History of stress test Cardiology follow-up encounter Hypertension NSTEMI (non-ST elevated myocardial infarction) Surgical History H/O heart artery stent (~11/06/24) Hx of knee surgery History of arthroplasty of knee Hx of left cataract extraction Hx of knee surgery Hx of knee surgery Hx of total knee arthroplasty Hx of right cataract extraction Hx of foot surgery Hx of arthroscopy Hx laparoscopic cholecystectomy Hx of hernia repair Hx of arthroscopy of right knee Status post coronary artery stent placement Coronary angioplasty status Status post revision of total replacement of right knee Social History Smoking Status: Former smoker how long ago did patient quit smokin years HPI HPI HPI: CHRISTOPH NICHOLS, is a 64 M who presents to the office today for follow up of dialysis access options. He has had his vein mapping, currently using right IJ catheter without issues. He has had some return of renal function so a trial without sessions was undertaken though he had significant SOB and fluid retention so sessions were resumed. ROS General General: Yes weight change and weakness; No appetite, fatigue, colon cancer or breast cancer HEENT HEENT: No difficulty swallowing, eye injury, eye surgery, swollen glands or hoarseness Endo Endocrine: Yes diabetes mellitus; No thyroid disease, thyroid cancer, Hair loss, heat intolerance or cold intolerance Skin Skin: No rash or changing moles Musc Musculoskeletal: Yes back problems, arthritis and joint pain; No rheumatoid arthritis or gout Cardio Cardiovascular: Yes heart disease, high blood pressure, heart attack, heart stent and shortness of breath with exertion; No murmur, pacemaker, atrial fibrillation, palpitations or chest pain Psych Psychiatric: No depression, anxiety or hearing voices Resp Respiratory: Yes shortness of breath, Yes sleep apnea, Yes cough, Yes COPD, No asthma, No emphysema and Yes wheezing Gastro Gastrointestinal: Yes abdominal pain, Yes nausea or vomiting, No diarrhea, No constipation, No blood in stool, Yes acid reflux, No hemorrhoids, No ulcers, No gallbladder problem and No black,tarry stools Brennan Hematologic: Yes blood thinners, No blood disorders, No bleeding, Yes anemia and No blood clots Neuro Neurologic: No system reviewed and no additional complaints, except as documented, No as per HPI, No abnormal gait, No abnormal hearing, No abnormal movements, No abnormal speech, No behavioral changes, No burning sensations, No confusion, No convulsions, No disequilibrium, No dizziness, No localized weakness, No frequent falls, No headache(s), No lack of coordination, No loss of vision, No memory loss, No numbness, No other visual disturbances, No radicular pain, No restless legs, No sensory deficit, No syncope, No tingling, No tremor(s), Yes weakness and No other Exam Const General: cooperative, healthy appearing, comfortable, no acute distress and well developed Nutritional Appearance: well nourished Orientation: alert, awake and oriented x3 [facility] Head: normocephalic and atraumatic Ears: hearing grossly normal bilaterally Nose: external nose normal Eyes General: appearance normal, both eyes and all related structures EOM: EOM intact bilaterally Neck Neck: normal visual inspection, full ROM, no lymphadenopathy and trachea midline Thyroid: thyroid normal Lymphatic: no lymphadenopathy noted Resp Effort & Inspection: normal respiratory effort, able to speak in complete sentences, symmetric chest movement, no audible wheezes, not labored, no stridor and no use of accessory muscles Cardio Rate: regular rate Rhythm: regular rhythm Pulses: brachial pulses present bilaterally diminished and radial pulses present bilaterally diminished GI Inspection: non-distended Palpation: soft, no hernias, no pulsatile masses and nontender Skin General: no rashes or lesions noted and no erythema Wounds: no wounds Neuro Cranial Nerves: CN's II-XI intact bilaterally and EOM intact bilaterally Speech: speech normal Gait: normal gait Motor: strength 5/5 throughout Sensory Exam: no sensory deficits noted Psych Appearance: grossly normal and well kempt Mental Status: mental status grossly normal Mood: congruent mood Speech and Movement: speech and movement normal Thought Content: normal Judgment: judgment good Coding Level of Care Code Off vis,est,level 3 Diagnoses ESRD (end stage renal disease) on dialysis N18.6; Z99.2 Assessment and Plan Assessment and Plan (1) ESRD (end stage renal disease) on dialysis: Status: Chronic Plan: -vein mapping reviewed, has adequate upper arm basilic and cephalic, normal arterial waveforms -triphasic radial/brachial doppler exam though pulse difficult to palpate -will plan for left upper arm cephalic fistula
--- NOTE | 2025-04-01 10:09 | PRE.ANES_ITS ---
ASA Classification* ASA Classification ASA Classification: 3 Assessment & Plan Anesthesia* Anesthesia Assessment Anesthesia Assessment: Discussed sedation and/or anesthesia options, risks, benefits, and alternatives with patient/parents/legal guardian/POA. Questions invited. The patient/parents/legal guardian/POA seems to understand and agrees to proceed with anesthesia plan. Reviewed the physical assessment, medical history, allergy history and patient home medications list prior to surgery/procedure/anesthetic and documented any changes. Performed airway and anesthesia risk assessments. Anesthesia Type Anesthesia Type: MAC History Source History Obtained from:: Patient and Chart Anesthesia Focused Assessment* Temperature: 98.4 F Pulse Rate: 82 Blood Pressure: 122/74 Respiratory Rate: 16 Pulse Ox: 100 Oxygen Delivery Method: Room Air Airway Assessment Mouth opens: >3 cm Mallampati Score: III Teeth Condition: Dentures (Patient has full upper and lower dentures. They are out.) Neck Range of motion (ROM): Limited ROM (Slight decrease in extension) Focused Labs Anesthesia Preop lab: CBC WBC 6.2 K/mm3 (4.4-11.0) 03/21/25 06:03/21/25 RBC 4.25 M/mm3 (4.6-6.2) L 03/21/25 06:03/21/25 Hgb 11.4 g/dL (13.0-16.5) L 03/21/25 06: 5 Hct 34.7 % (40-54) L 03/21/25 06:23 03/21/25 Plt Count 182 K/mm3 (150-450) 03/21/25 06:23 03/21/25 CHEMISTRY Potassium 4.7 mmol/L (3.3-5.1) 03/21/25 06:03/21/25 Sodium 135 mmol/L (133-145) 03/20/25 16:30 03/20/25 Magnesium 2.8 mg/dL (1.6-2.6) H 05/19/23 07:16 05/19/23 BUN 20 mg/dL (4-19) H 03/21/25 10:25 03/21/25 Creatinine 4.97 mg/dL (0.70-1.20) H 03/20/25 16:30 Glucose 173 mg/dL (70-99) H 03/20/25 16:30 03/20/25 POC Glucose 139 mg/dL (74-106) H 04/01/25 09:36 04/01/25 TSH 1.81 uIU/mL (0.358-3.74) 09/17/19 07:00 COAG Pre-Assessment Diagnosis/Proposed Procedure Planned Operative Procedure(s): AV FISTULA, PROB LEFT ARM Anesthesia History Anesthesia History - clinical informatics manager: Anesthesia History - clinical informatics manager Hx Hospitalization Yes: HEART 10/2024, 02/202503/18/25 08:43 CKD Any Problems With Anesthesia No 03/18/25 08:43 Cholinesterase deficiency No 03/18/25 08:43 You/Your Family Experience No 03/18/25 08:43 fever (hyperthermia) with Relationship Recent Exposure to Contagious No 04/01/25 09:40 Disease Does patient have nerve No 03/18/25 08:43 stimulator Patient instructed to have device shut off --Does patient have Pacemaker No 04/01/25 09:40 or ICD? When Was Last Pacemaker Check QUESTION #4 FULL TEXT: You/Your Family Experience fever (hyperthermia) with Anesthesia Last Oral Intake Last Oral intake: Last Oral Intake NPO since 23:30 04/01/25 09:40 Meds taken in AM with sips of No 04/01/25 09:40 water? Meds patient instructed to take am of surgery PONV PONV - clinical informatics manager: PONV - clinical informatics manager Female No 03/18/25 08:43 HX of Motion Sickness No 03/18/25 08:43 HX of N/V After Surgery No 03/18/25 08:43 Non-Smoker Yes 03/18/25 08:43 Duration of Surgery greater Yes 03/18/25 08:43 than 60 minutes Number of Risk Factors 2 03/18/25 08:43 PONV Score Moderate Risk 03/18/25 08:43 Height & Weight Height & Weight: Anesthesia: Height & Weight Height 5 ft 7.5 in 04/01/25 09:40 Weight: 92 kg 04/01/25 09:40 Body Mass Index (BMI) 31.3 04/01/25 09:40 Respiratory Assessment Respiratory Assessment - clinical informatics manager: Respiratory Tract Infection Hx - clinical informatics manager Hx Respiratory Tract Infection No 03/18/25 08:43 STOP Sleep Apnea STOP Sleep Apnea - clinical informatics manager: STOP Sleep Apnea - clinical informatics manager Hx Hypertension Yes 03/18/25 08:43 Hx Sleep Apnea No 03/18/25 08:43 CPAP No 05/31/23 14:10 BIPAP No 03/05/18 14:57 Do you snore loudly (louder No 03/18/25 08:43 than talking or can be heard Do you often feel tired/ No 03/18/25 08:43 fatigued/ sleepy during daytime? Has anyone observed you stop No 03/18/25 08:43 breathing during sleep? STOP Results Negative 03/18/25 08:43 QUESTION #5 FULL TEXT : Do you snore loudly (louder than talking or can be heard through closed doors)? 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 Specify any problems Hx of Preganancy in last 3 N/A 03/18/25 08:43 Months Nurse Filling Out Transfusion [facility] 03/18/25 08:43 & Questions: Date: 03/18/25 03/18/25 08:43 Time: 08:56 03/18/25 08:43 Patient unable to answer at this time (ie. 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 - clinical informatics manager: /Reproductive Hx- clinical informatics manager Hx Now Gestational Age (in weeks): EDC: Hx Hx Para Hx Section SAB No 05/17/23 10:18 Active Medications Active Medications: Current Medications Generic Name Dose Route Start Last Admin Trade Name Freq PRN Reason Stop Dose Admin Cefazolin Sodium 2 gm/ Sodium 110 mls @ 150 mls/hr 04/01/25 11:30 Chloride IV 04/01/25 12:13 INTRAOP ONE Sodium Chloride 500 mls @ 0 mls/hr 04/01/25 09:30 04/01/25 09:57 IV 15 mls/hr .Q0M TRINA Administration KVO PFSH Medical History MRSA infection History of renal disease History of renal dialysis Former smoker History of echocardiogram History of heart attack Loss of hearing Wears dentures Depression Alcohol use Insulin dependent diabetes mellitus Arthritis High cholesterol Back pain History of hiatal hernia Dietary restriction Gastric reflux COPD (chronic obstructive pulmonary disease) Smoker History of pain when walking History of edema History of stress test Cardiology follow-up encounter Hypertension NSTEMI (non-ST elevated myocardial infarction) Home Medications ?Medication ?Instructions ?Recorded ?Last Taken ?Type escitalopram oxalate 5 mg tablet 10 mg PO DAILY depres donell 10/15/16 03/31/25 History (Lexapro) crasxhdz-oih-rpivc acid 0.4 1 ea PO DAILY supplement 1 12/15/15 Unknown History mg-lycopene 300 mcg-lutein 250 mcg tablet (Centrum Silver) omeprazole 20 mg capsule,delayed 20 mg PO DAILY gerd 1 12/15/15 05/31/23 History release insulin degludec 100 unit/mL (3 60 unit subcut Q24H di abetes 01/15/18 03/31/25 08:00 History mL) subcutaneous pen (Tresiba FlexTouch U-100 insulin) montelukast 10 mg tablet 10 mg PO DAILY@1700 #42 tabs 03/22/18 Unknown Rx pravastatin 40 mg tablet 40 mg PO QHS 08/24/18 Unknow n History cholecalciferol (vitamin D3) 25 25 mcg PO DAILY Unknown History mcg (1,000 unit) tablet (Vitamin D3) acetaminophen 500 mg tablet 1,000 mg (2 x 500 mg) PO Q 8 #180 06/06/23 Unknown Rx tabs oxycodone 5 mg tablet 5 - 10 mg (1 - 2 x 5 mg) PO .4-6 06/06/23 Unknown Rx hours prn PRN Pain Score 4-10 7 days #60 tabs ondansetron HCl 4 mg tablet 4 mg PO Q8H PRN nausea and vomiting 02/06/25 Unknown History furosemide 40 mg tablet (Lasix) 40 mg PO QAM 03/03/25 03/31/25 History albuterol sulfate 90 mcg/actuation inhalation Q6H PRN PRN wheezing 03/18/25 Unknown History aerosol inhaler amlodipine 5 mg tablet 5 mg PO QPM 03/18/25 5 History aspirin 81 mg chewable tablet 81 mg PO DAILY 03/18/25 03/30/25 History clopidogrel 75 mg tablet 75 mg PO DAILY 03/18/25 05/03/21 History ezetimibe 10 mg tablet 10 mg PO DAILY 03/18/25 Unkn own History losartan 100 mg tablet 100 mg PO DAILY 03/18/25 Unk nown History losartan 25 mg tablet 25 mg PO BID 03/18/25 Unknow n History metoprolol tartrate 25 mg tablet 25 mg PO BID 03/18/25 03/31/25 History midodrine 5 mg tablet 5 mg PO MOWEFR 03/18/25 Unkn own History semaglutide 7 mg tablet (Rybelsus) 7 mg PO DAILY 03/1803/30/25 History Allergy/AdvReac Type Severity Reaction Status Date / Time bee venom protein (honey Allergy Swelling Verified 03/18/25 08:31 bee) (bee sting) lisinopril AdvReac Unknown cough Verified 04/01/25 09:38 Surgical History History of heart surgery History of elbow surgery H/O heart artery stent (~11/06/24) Hx of knee surgery History of arthroplasty of knee Hx of left cataract extraction Hx of knee surgery Hx of knee surgery Hx of total knee arthroplasty Hx of right cataract extraction Hx of foot surgery Hx of arthroscopy Hx laparoscopic cholecystectomy Hx of hernia repair Hx of arthroscopy of right knee Status post coronary artery stent placement Coronary angioplasty status Status post revision of total replacement of right knee Social History Smoking Status: Former smoker how long ago did patient quit smokin years Review of Systems (Anesthesia) ROS Narrative System reviewed and no additional complaints, except as documented.
[2025-04-01] MEDS: Cefazolin 2 GM in 0.9% Normal Saline (100mL Bag) 100 ML IV (10:50)
--- NOTE | 2025-04-01 12:09 | EX.PCM.DISCH ---
Discharge Instructions Diet Discharge Diet: No restrictions Activity Lifting Restrictions: do not lift > 20 lbs with left arm for 2 weeks Additional Activity Instructions:: do not submerge incision for 2 weeks Dressing / Incision Call your doctor if your incision/area has: Sudden Increased Bleeding, Increased Pain/ Swelling, Increased Redness and Foul Smelling Discharge Call your doctor if you observe: Coldness, Increased Pain and Numbness or Tingling Remove Dressing in: 2 days Cleanse incision/area with: Soap & Water Follow Up Care Test Results: Test results from this visit will be discussed in further detail at your follow-up appointment, if applicable. Discharge Plan Admission Attending Provider: Rui Vera Primary Care Provider: Ben Lipscomb Instructions Print Language: [place] Island[place] Discharge Orders/Prescriptions Prescriptions: Continued ondansetron HCl 4 mg tablet 4 mg PO Q8H PRN (Reason: nausea and vomiting) furosemide [Lasix] 40 mg tablet 40 mg PO QAM omeprazole 20 MG capsule 20 mg PO DAILY Patient Comments: acid reflux escitalopram oxalate [Lexapro] 5 MG tablet 10 mg PO DAILY Patient Comments: depression Centrum Silver 1 EACH tablet 1 ea PO DAILY Patient Comments: supplement insulin degludec [Tresiba FlexTouch U-100] 100 UNIT/ML insulin pen 60 unit subcut Q24H montelukast 10 MG tablet 10 mg PO DAILY@1700 Qty: 42 1RF pravastatin 40 MG tablet 40 mg PO QHS cholecalciferol (vitamin D3) [Vitamin D3] 25 mcg (1,000 unit) Tablet 25 mcg PO DAILY acetaminophen 500 mg Tablet 1,000 mg PO Q8 Qty: 180 0RF oxycodone 5 mg Tablet 5 - 10 mg PO .4-6 hours prn PRN (Reason: Pain Score 4-10) 7 Days Qty: 60 0RF clopidogrel 75 mg tablet 75 mg PO DAILY amlodipine 5 mg tablet 5 mg PO QPM losartan 25 mg tablet 25 mg PO BID losartan 100 mg tablet 100 mg PO DAILY ezetimibe 10 mg tablet 10 mg PO DAILY midodrine 5 mg tablet 5 mg PO MOWEFR Patient Comments: [facility] metoprolol tartrate 25 mg tablet 25 mg PO BID Rybelsus 7 mg tablet 7 mg PO DAILY Patient Comments: LAST DOSE WILL BE 03/30/25 [facility] SURGERY aspirin 81 mg Tablet,Chewable 81 mg PO DAILY albuterol sulfate 90 mcg/actuation HFA aerosol inhaler inhalation Q6H PRN PRN (Reason: wheezing) Referrals / Follow Up: Ben Lipscomb DO [Primary Care Provider] - Disposition Disposition (needs filled in before D/C Order can be placed): Home, Self Care
[2025-04-01] MEDS: Bupivacaine 0.25% 30 ML Vial (12:11)
[2025-04-01] MEDS: Lidocaine 1% (20 ml mdv) 20 ML Vial (12:11)
--- NOTE | 2025-04-01 12:14 | OP.PCM_ITS ---
Operative Report (Standard) Operative Information Date of Procedure: 04/01/25 Pre-Operative Diagnosis: ESRD Post-Operative Diagnosis: same Surgery/Procedure Performed: left cephalic fistula creation strip tank tender: Yes Supplier Relationship Director: Iona Duque Tasks completed by first aid teacher: Opening, Closing, Opening & closing, Hemostasis: Tie and Retracting Type of Anesthesia: Local MAC, Local and MAC RN Documented Start/Stop Times: Operation Date: 04/01/25 11:30 Case Time Into Pre-Op 04/01/25 09:14 Anesthesia Start 04/01/25 10:46 Into Room 04/01/25 10:46 Out of Pre-Op 04/01/25 10:46 Procedure Start 04/01/25 11:09 Procedure End 04/01/25 12:17 Anesthesia End 04/01/25 12:22 Out of Room 04/01/25 12:22 Into Recovery 04/01/25 12:23 Out of Recovery 04/01/25 12:42 Into Phase II Recovery 04/01/25 12:43 Out of Phase II 04/01/25 13:40 Procedure Start Time: 11:10 Procedure Stop Time: 12:15 Select all DRAINS/GRAFTS/IMPLANTS that apply: None Estimated Blood Loss: 8 Specimen collected: No Description of surgery: HPI: Patient is a 64-year-old male with end-stage renal disease currently on dialysis. He had previous vein mapping which revealed adequate upper arm cephalic and basilic vein on the left. He is taken now for fistula creation. Description of procedure: Upon obtaining informed consent and verification of correct patient procedure and site the patient was taken to the operating where he was positioned prepped and draped in usual sterile fashion. Moderate sedation was then administered by anesthesia in the veins of the upper extremity evaluated ultrasound. The cephalic vein in the forearm was not of sufficient caliber for fistula creation. The upper arm cephalic was adequate in caliber however the vessel is very tortuous and it was unclear if this was the main cephalic vein or very robust collaterals. The basilic vein was normal in appearance and large caliber along the entirety of the medial upper arm. There was an intact director biomedical engineering vein as well as the cubital branches which communicated between the director biomedical engineering in both the basilic and cephalic outflow veins. It was felt that anastomosis of the director biomedical engineering would provide dual outflow into both the basilic and cephalic and that if the cephalic did mature and have a more normal appearance then it would be the primary target for the fistula. Skin overlying the vessels just distal to the antecubital crease was anesthetized 1% lidocaine and transverse incision made 1 fingerbreadth distal to the antecubital crease. Bovie electrocautery was dissect into the subcutaneous tissue and self-retaining retractors put in position. Once the confluence of the superficial veins was identified sharp dissection was used to dissect free proximal and distal onto the cubital branches and along the director biomedical engineering vein. Next Bovie was used to dissect medially down to the fascia overlying the brachial artery with the fascia incised in cruciate figuration self-retaining retractors moved deeper into the wound. Sharp dissection was then used to dissect free the brachial artery bifurcation with care taken to identify and protect adjacent nerve and vein structures. The bifurcation was more proximal then usual in both the radial and ulnar arteries had normal pulse and Doppler signal. Anastomosis between the director biomedical engineering vein and the radial artery provided the best vessel orientation so a right angle was used to place vessel around the proximal and distal radial artery. The patient was then heparinized allowed to circulate for 3 minutes. The cephalic vein distal and the surgical site was then ligated with silk ties and divided. The director biomedical engineering vein at its juncture with the deep system was then ligated distally and then divided. The director biomedical engineering and the outflow vein into the cephalic were then dilated up to 3.5 mm and flushed with heparinized saline. The radial artery was then occluded with Vesseloops and longitudinal arteriotomy created with 11 blade extended the Sheikh scissors. Anastomosis was then performed in end-to-side fashion with a 6-0 Prolene in a running fashion. Putting putting a suture line the vessels are backbled and after completing the suture line clamps removed and satisfactory stasis was noted. There is a satisfactory biphasic Doppler signal in the radial artery at the wrist and normal triphasic Doppler signal in the ulnar at the wrist. There was low resistant Doppler signal in the fistula outflow and a palpable thrill. Heparin was then was reversed with protamine and the incision closed with 3-0 Vicryl followed by 4 Monocryl and Dermabond for the skin. At the conclusion of case the patient was taken to the recovery room with anticipated discharge home. Surgical Findings: see above Complications Complications: No
--- NOTE | 2025-04-01 12:27 | PCM.POST.ANE ---
Anesthesia: Postop Eval I Current Vital Signs Temperature: 97.3 F Pulse Rate: 86 Blood Pressure: 102/71 Respiratory Rate: 16 Pulse Ox: 98 Oxygen Delivery Method: Room Air Assessment Airway patent: Yes Spontaneous unlabored respirations: Yes Mental status: Awake and Calm nausea: No Vomiting: No Anesthesia Complication: No Fluid Hydration Crystalloid volume administer (ml): 450 Total IV fluid infused: 450 Progress Note Anesthesia document: Postop Eval 1 completed: Yes
--- NOTE | 2025-04-01 13:26 | POSTOPAN2_ITS ---
Anesthesia Postop Eval I Sum Postop Eval Completion status Anesthesia document: Postop Eval 1 completed: Yes Anesthesia Postop Eval I Summary Anesthesia Postop Eval I Summary: Anesthesia Postop Eval I: Assessment Summary Airway patent Yes 04/01/25 12:28 GREASE [email or web address] TALLOW [email or web address] Spontaneous unlabored Yes 04/01/25 12:28 GREASE AND TALLOW [email or web address] respirations Mental status Awake,Calm 04/01/25 12:28 GREASE AND TALLOW [email or web address] nausea No 04/01/25 12:28 GREASE AND TALLOW [email or web address] Vomiting No 04/01/25 12:28 GREASE AND TALLOW [email or web address] Anesthesia Postop Eval I: Fluid Summary Crystalloid volume administer 450 04/01/25 12:28 GREASE [email or web address] TALLOW [email or web address] (ml) Colloids volume administered ( ml) Blood Product volume administered (ml) Total IV fluid infused 450 04/01/25 12:28 GREASE AND TALLOW [email or web address] Anesthesia Postop Eval I: Summary Notes Anesthesia Complication No 04/01/25 12:28 GREASE AND TALLOW [email or web address] Anesthesia Complication Comment: Post-operative progress note Anesthesia: Postop Eval II Evaluation Mental status: Awake and Calm Pain Level: 0 nausea: No Vomiting: No Complications Anesthesia Complication: No
--- NOTE | 2025-04-01 13:26 | PCM.POSTANE2 ---
Anesthesia Postop Eval I Sum Postop Eval Completion status Anesthesia document: Postop Eval 1 completed: Yes Anesthesia Postop Eval I Summary Anesthesia Postop Eval I Summary: Anesthesia Postop Eval I: Assessment Summary Airway patent Yes 04/01/25 12:28 LINE ERECTOR [email or web address] Spontaneous unlabored Yes 04/01/25 12:28 LINE ERECTOR [email or web address] respirations Mental status Awake,Calm 04/01/25 12:28 LINE ERECTOR [email or web address] nausea No 04/01/25 12:28 LINE ERECTOR [email or web address] Vomiting No 04/01/25 12:28 LINE ERECTOR [email or web address] Anesthesia Postop Eval I: Fluid Summary Crystalloid volume administer 450 04/01/25 12:28 LINE ERECTOR [email or web address] (ml) Colloids volume administered ( ml) Blood Product volume administered (ml) Total IV fluid infused 450 04/01/25 12:28 LINE ERECTOR [email or web address] Anesthesia Postop Eval I: Summary Notes Anesthesia Complication No 04/01/25 12:28 LINE ERECTOR [email or web address] Anesthesia Complication Comment: Post-operative progress note Anesthesia: Postop Eval II Evaluation Mental status: Awake and Calm Pain Level: 0 nausea: No Vomiting: No Complications Anesthesia Complication: No
[2025-04-01] MEDS: Heparin 10,000 UNITS/10 ML Vial 2000 UNITS IV (13:31)
[2025-04-01] MEDS: 0.9% Saline Lock 10 ML Syringe IV (13:31)
== END 2025-04-01 13:40 | disposition home or self-care (01) ==
LOC: SDC 09:10 → AC 09:11
PROVIDERS: PCP Preventive Medicine Occupational Medicine; Referring Provider Surgery Trauma Surgery; Visit Provider Surgery Trauma Surgery
PROC: (CPT 36821; principal; 2025-04-01 11:15)
DX: E11.22 Type 2 diabetes mellitus with diabetic chronic kidney disease (principal); N18.6 End stage renal disease; Z79.4 Long term (current) use of insulin; E78.00 Pure hypercholesterolemia, unspecified; I25.2 Old myocardial infarction; Z99.2 Dependence on renal dialysis; Z79.82 Long term (current) use of aspirin; Z79.899 Other long term (current) drug therapy; Z87.891 Personal history of nicotine dependence; Z95.5 Presence of coronary angioplasty implant and graft
CPT/HCPCS: 36821; 01844; 36415; 80048; 82962; 85027; A4648; A4216

== ENCOUNTER → 2025-05-15 | Outpatient (CLI) | payer OTHER, SELFPAY ==
--- OUTSIDE RECORDS SUMMARY | 2025-05-15 07:49 | XMS RPT_ITS | CCD ---
Author Organization [facility] CliniSytn Care Team Providers Care Biological Inspector Name Role Phone ANGE FAJARDO Unavailable Unavailable ANGE FAJARDO Unavailable Unavailable CT DYSON Unavailable Unavailable CT DYSON DO Primary Care Physician [phone] CT DYSON DO Primary Care Physician [phone] Dr. Ct Dyson Primary Care Provider Dr. Laura Cook Admit Provider Dr. Laura Cook Referring Provider Dr. Laura Cook Other Provider Dr. Oly Dexter Attending Provider Dr. Oly Dexter Other Provider Dr. Ct Campuzano Other Provider Dr. Seng Salcedo Attending Provider Dr. Seng Salcedo Other Provider Dr. Juan Blankenship Other Provider CT DYSON DO Attending Unavailable CT DYSON DO Primary Care Unavailable DR CT CAMPUZANO MD Attending CT Martinez DO Primary Care Unavailable Cata Willis Unavailable Unavailable Rene Carmonaing NurseGolden Unavailable Dr. Ct Martinez DO Referring Provider Marleny Roldan Attending Provider [phone] Marleny Roldan Referring Provider [phone] Dyson DO Primary Care Provider [phone] Dr. Rui Vera MD Attending Provider KIEL DO, CT Primary Care Unavailable CARMELITA DOMINGO MD Attending Unavailable ANITRA GUERRA, DR MARSH Admitting Unavailable FARIDEH GUERRA, SKINNY Consulting Unavailable BRETT OSCAR MD Consulting Unavailable KYLE PA-C, IVETTE Consulting Unavaila omar ZAZUETA PA-C, LADAN Consulting Unavailashley BELL MD, BROOKE K Consulting Unavailabl e HOSPITALIST, PAT Consulting Unavailable SOFIA, LEO Consulting Unavailable JOSE L GUERRA, CARMELITA Consulting Unavailable KIEL DO, CT Primary Care Unavailable CARMELITA DOMINGO MD Attending Unavailable KIEL DO, CT Primary Care Unavailable [facility] ADVERTISING ANALYST-COOLER WORKER, SHLOMO Attending Unavailabl e KIEL DO, CT Primary Care Unavailable DENISE CHAVEZ Attending Unavailable ELAINE GREEN MD Consulting Unavailable RAYMUNDO CORNELL DO Attending Unavailable DELON GUERRA, DR ALEJANDRO Mock Admitting Unavailable KIEL DO, TC Primary Care Unavailable ROBERTA GUERRA, EDWARD Crowley Consulting Unavailable Marily GUERRA, Dr. Segal Attending Provider Jody GUERRA, Dr. Fabian Referring Provider Jody GUERRA, Dr. Fabian Other Provider KIEL DO, CT Primary Care Unavailable KIEL DO, CT Attending Unavailable KIEL DO, CT Primary Care Unavailable ADDISON DYKES MD Attending Unavailable KIEL DO, CT Attending Unavailable KIEL DO, CT Primary Care Unavailable KIEL DO, CT Primary Care Unavailable ANITRA GUERRA, DR MARSH Consulting Unavailable OWFINN SUNG, DR TEE Baron Attending UnavailBRETT Ram MD Attending Unavailable KIEL DO, CT Primary Care Unavailable KIEL DO, CT Primary Care Unavailable ADDISON DYKES MD Attending Unavailable Nataliia, Marleny Attending Unavailable Kiel, Ct Primary Care Unavailable Kiel, Ct Referring Unavailable Rui Vera Attending Unavailable Kiel, Ct Referring Unavailable Kiel, Ct Primary Care Unavailable Rui Vera Attending Unavailable Kiel, Tc Primary Care Unavailable Rui Vera Attending Unavailable Rui Vera Referring Unavailable William, Marleny Attending Unavailable William, Marleny Referring Unavailable Kiel, Ct Primary Care Unavailable William, Marleny Referring Unavailable Kiel, Ct Primary Care Unavailable William, Marleny Attending Unavailable Kiel, Ct Primary Care Unavailable Rui Vera Attending Unavailable Brett Oscar Attending Unavailable Ct Dyson Primary Care Unavailable Ct Dyson Primary Care Unavailable Rui Vera Attending Unavailable Ct Dyson Primary Care Unavailable Rui Vera Attending Unavailable Rui Vera Referring Unavailable Rui Vera Consulting Unavailable Ct Dyson Referring Unavailable Ct Dyson Primary Care Unavailable Marleny William Attending Unavailable Marleny William Attending Unavailable Ct Dyson Referring Unavailable Allergies Allergy Classification Reported Allergen(s) Allergy Type Date of Onset Reaction(s) Facility (10 sources) Bee/Wasp/Ant venom Allergy to substance [facility] (12 sources) Lisinopril; Translations: [lisinopril] Drug Allergy 04-14-2025 [facility] (3 sources) bee venom protein (honey bee) Allergy to substance 02-06-2025 [facility] (1 source) Lisinopril Drug Allergy 05-09-2025 [facility] (1 source) bee venom protein (honey bee) Drug allergy (disorder) 05-09-2025 [facility] Medications Current Medications Medication Drug Class(es) Dates Sig (Normalized) Sig (Original) acetaminophen 500 mg oral tablet (16 sources) Start: 11-12-2024 acetaminophen Dose : 650 mg = 2 tab(s), Oral, q4h, PRN Pain, scale 1-3, 0 Refill(s) Start Date: 11/12/24 Status: Ordered Repeat number: 1 Start: 06-06-2023 End: 05-02-2025 take 2 tablets by mouth every eight hours as needed for pain Acetaminophen 500 mg Tablet Active 1000 mg PO EVERY 8 HOURS as needed for pain May 02, 2025 12:00am Start: 06-06-2023 take 1000 mg by mout h every eight hours Acetaminophen Active 1000 MG PO EVERY 8 HOURS 180 June 06, 2023 12:00am Start: 03-22-2018 End: 08-24-2018 take 2 tablets by mouth every eight hours Acetaminophen 500 MG tablet Discontinued 1000 mg PO EVERY 8 HOURS 90 March 22, 2018 12:00am August 24, 2018 1:02pm Start: 03-22-2018 End: 08-24-2018 take 1000 mg by mouth every eight hours Acetaminophen Discontinued 1000 MG PO EVERY 8 HOURS 90 March 22, 2018 12:00am August 24, 2018 1:02pm acetaminophen 325 mg / oxyCODONE hydrochloride 5 mg oral tablet (15 sources) Opioid Agonist Start: 01-23-2025 End: 02-22-2025 take 1 tablet by mouth every six hours as needed for pain acetaminophen-oxyCODONE 325 mg-5 mg oral tablet Dose = 1 tab(s), Oral, q6hr, PRN for pain, # 120 tab(s), 0 Refill(s), [id number], Chronic knee 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, 171, cm, 01/23/25 15:53:00 EST, Height, 96, kg, 01/23/25 15:53:00 EST, Dosing Weight Start Date: 01/23/25 Stop Date: 02/22/25 Status: Ordered Quantity: 120.0 Unit: tab(s) Repeat number: 1 Indication: Pain in right knee Start: 11-21-2024 End: 12-21-2024 take 1 tablet by mouth every six hours as needed for pain acetaminophen-oxyCODONE 325 mg-5 mg oral tablet Dose = 1 tab(s), Oral, q6hr, PRN for pain, # 120 tab(s), 0 Refill(s), [id number], Chronic knee 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, 171.5, cm, 11/21/24 7:23:00 EST, Height, 97, kg, 11/21/24 7:23:00 EST, Dosing Weight Start Date: 11/21/24 Stop Date: 12/21/24 Status: Ordered Quantity: 120.0 Unit: tab(s) Repeat number: 1 Indication: Pain in right knee Start: 10-21-2024 End: 11-20-2024 take 1 tablet by mouth three times daily as needed for pain acetaminophen-oxyCODONE 325 mg-5 mg oral tablet Dose = 1 tab(s), Oral, TID, PRN for pain, # 90 tab(s), 0 Refill(s), [id number], Chronic knee 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, 168, cm, 09/23/24 15:28:00 EDT, Height, 101.3, kg, 09/25/24 16:25:00 EDT, Dosing Weight Start Date: 10/21/24 Stop Date: 11/20/24 Status: Ordered Quantity: 90.0 Unit: tab(s) Repeat number: 1 Indication: Pain in right knee Start: 05-17-2023 End: 06-06-2023 Oxycodone-Acetaminophen 5-32 5 mg Tablet Discontinued 1 {tbl} PO Q8H as needed for Pain May 17, 2023 12:00am June 06, 2023 1:27pm Start: 05-17-2023 End: 06-06-2023 take 1 tablet by mouth every eight hours Oxycodone-Acetaminophen Discontinued 1 TABLET PO Q8H May 17, 2023 12:00am June 06, 2023 1:27pm Start: 02-16-2023 End: 03-18-2023 take 1 tablet by mouth every six hours as needed for pain acetaminophen-oxyCODONE 325 mg-5 mg oral tablet Dose = 1 tab(s), Oral, q6h, PRN for pain, # 90 tab(s), 0 Refill(s), Pharmacy: [facility]/pharmacy #[id number], Chronic knee 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, 170.5, cm, 12/15/22 15:58:00 EST, Height, 111.5, kg, 12/15/22 15:58:00 EST, Dosing Weight Start Date: 02/16/23 Stop Date: 03/18/23 Status: Ordered Start: 09-19-2022 End: 10-19-2022 take 1 tablet by mouth every six hours as needed for pain acetaminophen-oxyCODONE 325 mg-5 mg oral tablet Dose = 1 tab(s), Oral, q6h, PRN for pain, # 90 tab(s), 0 Refill(s), Pharmacy: [facility]/pharmacy #[id number], Chronic knee 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, 170.5, cm, 09/12/22 13:51:00 EDT, Height, 114, kg, 09/12/22 13:51:00 EDT, Dosing Weight Start Date: 09/19/22 Stop Date: 10/19/22 Status: Ordered Start: 08-09-2022 End: 09-08-2022 take 1 tablet by mouth every six hours as needed for pain acetaminophen-oxyCODONE 325 mg-5 mg oral tablet Dose = 1 tab(s), Oral, q6h, PRN for pain, # 90 tab(s), 0 Refill(s), Pharmacy: [facility]/pharmacy #[id number], Chronic knee 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, 170, cm, 06/21/22 16:34:00 EDT, Height, 114.8, kg, 06/21/22 16:34:00 EDT, Dosing Weight Start Date: 08/09/22 Stop Date: 09/08/22 Status: Ordered Start: 08-09-2021 End: 09-08-2021 take 1 tablet by mouth every six hours as needed for pain acetaminophen-oxyCODONE 325 mg-5 mg oral tablet Dose = 1 tab(s), Oral, q6h, PRN for pain, # 90 tab(s), 0 Refill(s), [id number], Chronic knee 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, 170.5, cm, 08/09/21 11:38:00 EDT, Height, 110, kg, 08/09/21 11:38:00 EDT, Dosing Weight Start Date: 08/09/21 Stop Date: 09/08/21 Status: Ordered [id number] 200 actuat albuterol 0.09 mg/actuat metered dose inhaler (2 sources) beta2-Adrenergic Agonist Start: 03-18-2025 Albuterol Sulfate 90 mcg/actuation HFA aerosol inhaler Active 2 NMA INHALATION EVERY 6 HOURS NEEDED as needed for wheezing March 18, 2025 12:00am Albuterol (Eqv-Ventolin HFA) 90 mcg/inh inhalation aerosol (1 source) Start: 02-13-2025 Albuterol (Eqv-Ventolin HFA) 90 mcg/inh inhalation aerosol 180 mcg Dose = 2 inh, Inhalation, q6hr, PRN as needed for shortness of breath or wheezing, # 18 gram(s), 5 Refill(s), Pharmacy: [facility]acy #[id number], COPD (chronic obstructive pulmonary disease), 171, cm, 01/23/25 15:53:00 EST, Height, kg, 02/07/25 8:41:00 EDT, Dosing Weight Start Date: 02/13/25 Status: Ordered Quantity: 18.0 Unit: g Repeat number: 6 Indication: Chronic obstructive pulmonary disease, unspecified amLODIPine 5 mg oral tablet (8 sources) Dihydropyridine Calcium Channel Elizabeth Start: 03-18-2025 take 1 tablet by mouth once daily in the evening Amlodipine 5 mg tablet Active 5 mg PO EVERY EVENING March 18, 2025 12:00am Start: 12-26-2023 amLODIPine 5 m g oral tablet Dose : 5 mg = 1 tab(s), Oral, qPM, # 90 tab(s), 3 Refill(s), [id number], Hypertension, 168, cm, 12/26/23 15:54:00 EST, Height, kg, 12/26/23 15:54:00 EST, Dosing Weight Start Date: 12/26/23 Status: Ordered Start: 03-21-2022 amLODIPine 5 m g oral tablet Dose : 5 mg = 1 tab(s), Oral, qPM, # 90 tab(s), 3 Refill(s), Pharmacy: [facility]/pharmacy #[id number], Hypertension, 170, cm, 03/21/22 16:16:00 EDT, Height, kg, 03/21/22 16:16:00 EDT, Dosing Weight Start Date: 03/21/22 Status: Ordered Start: 04-28-2021 amLODIPine 5 m g oral tablet Dose : 5 mg = 1 tab(s), Oral, qPM, # 90 tab(s), 3 Refill(s), Pharmacy: [facility]/pharmacy #[id number], Hypertension, 170, cm, 04/28/21 11:04:00 EDT, Height, kg, 04/28/21 11:04:00 EDT, Dosing Weight Start Date: 04/28/21 Status: Ordered aspirin 81 mg chewable tablet (20 sources) Platelet Aggregation Inhibitor, Nonsteroidal Anti-inflammatory Drug Start: 03-18-2025 take 1 tablet by mouth once daily Aspirin 81 mg Tablet,Chewable Active 81 mg PO DAILY March 18, 2025 12:00am Start: 06-06-2023 End: 03-18-2025 take 1 tablet by mouth twice daily Aspirin 81 mg Tablet,Chewable Discontinued 81 mg PO TWICE A DAY 56 June 06, 2023 12:00am March 18, 2025 8:42am Start: 08-24-2018 take 81 mg by mouth once daily Aspirin Active 81 MG PO DAILY August 24, 2018 1:05pm Start: 07-02-2018 End: 03-03-2025 take 1 tablet by mouth once daily Aspirin 81 mg Tablet,Delayed Release (Dr/Ec) Discontinued 81 mg PO DAILY May 17, 2023 12:00am March 03, 2025 4:35pm On Hold: Resume on 07/04/23. Start: 07-02-2018 aspirin 81 mg oral delayed release tablet Dose : 81 mg = 1 tab(s), Oral, qDay, # 30 tab(s), 0 Refill(s) Start Date: 07/02/18 Status: Ordered Start: 03-22-2018 End: 08-24-2018 take 1 tablet by mouth twice daily at mealtime Aspirin 325 MG tablet Discontinued 325 mg PO TWICE DAILY WITH MEALS March 22, 2018 12:00am August 24, 2018 1:05pm Start: 10-21-2016 End: 03-22-2018 take 1 tablet by mouth once daily Aspirin 81 MG Tab.Chew Discontinued 81 mg PO DAILY@0800 March 05, 2018 2:57pm March 22, 2018 10:35am atorvastatin 40 mg oral tablet (19 sources) HMG-CoA Reductase Inhibitor Start: 12-16-2024 atorvastatin 40 mg oral tablet Dose : 40 mg = 1 tab(s), Oral, qDay, # 90 tab(s), 3 Refill(s), Pharmacy: [facility]/pharmacy #[id number], 170.2, cm, 12/16/24 11:08:00 EST, Height, kg, 12/16/24 11:08:00 EST, Dosing Weight Start Date: 12/16/24 Status: Ordered Quantity: 90.0 Unit: tab(s) Repeat number: 4 Start: 12-26-2023 atorvastatin 4 0 mg oral tablet Dose : 40 mg = 1 tab(s), Oral, qDay, # 90 tab(s), 3 Refill(s), Pharmacy: [facility]/pharmacy #[id number], 168, cm, 12/26/23 15:54:00 EST, Height, kg, 12/26/23 15:54:00 EST, Dosing Weight Start Date: 12/26/23 Status: Ordered Quantity: 90.0 Unit: tab(s) Repeat number: 4 Start: 12-24-2021 atorvastatin 4 0 mg oral tablet Dose : 40 mg = 1 tab(s), Oral, qDay, # 90 tab(s), 3 Refill(s), Pharmacy: [facility]/pharmacy #[id number], 170, cm, 12/24/21 15:55:00 EST, Height, kg, 12/24/21 15:55:00 EST, Dosing Weight Start Date: 12/24/21 Status: Ordered Start: 11-01-2016 End: 03-05-2018 take 1 tablet by mouth at bedtime Atorvastatin 40 MG tablet Discontinued 40 mg PO AT BEDTIME November 01, 2016 1:00am March 05, 2018 2:57pm bumetanide 2 mg oral tablet (1 source) Loop Diuretic Start: 02-19-2025 Bumex Dose : 2 mg = 2 tab(s), Oral, qDay, 0 Refill(s) Start Date: 02/19/25 Status: Ordered Repeat number: 1 cephalexin 500 mg oral capsule (2 sources) Cephalosporin Antibacterial Start: 12-24-2020 take 500 mg by mouth every six hours Cephalexin Active 500 MG PO EVERY 6 HOURS December 24, 2020 1:00am cholecalciferol 0.025 mg oral tablet (5 sources) Vitamin D Start: 05-17-2023 take 1 tablet by mouth once daily Cholecalciferol (Vitamin D3) (Vitamin D3) 25 mcg (1,000 unit) Tablet Active 25 ug PO DAILY May 17, 2023 12:00am clopidogrel 75 mg oral tablet (13 sources) [id number] Platelet Inhibitor Start: 03-18-2025 take 1 tablet by mouth once daily Clopidogrel 75 mg tablet Active 75 mg PO DAILY March 18, 2025 12:00am Start: 02-13-2025 Plavix 75 mg o ral tablet Dose : 75 mg = 1 tab(s), Oral, qDay, # 90 tab(s), 2 Refill(s), Pharmacy: [facility]/pharmacy #[id number], 171, cm, 01/23/25 15:53:00 EST, Height, kg, 02/07/25 8:41:00 EDT, Dosing Weight Start Date: 02/13/25 Status: Ordered Quantity: 90.0 Unit: tab(s) Repeat number: 3 Start: 11-12-2024 Plavix 75 mg o ral tablet Dose : 75 mg = 1 tab(s), Oral, qDay, # 30 tab(s), 2 Refill(s), Pharmacy: [facility], 170.2, cm, 11/04/24 4:18:00 EST, Height, kg, 11/11/24 19:14:00 EST, Dosing Weight Start Date: 11/12/24 Status: Ordered Quantity: 30.0 Unit: tab(s) Repeat number: 3 Start: 08-24-2018 Plavix 75 mg o ral tablet Dose : 75 mg = 1 tab(s), Oral, qDay, # 90 tab(s), 3 Refill(s), [id number], 170, cm, 09/21/21 16:13:00 EDT, Height, kg, 09/21/21 16:13:00 EDT, Dosing Weight Start Date: 09/21/21 Status: Ordered docusate sodium 50 mg / sennosides, senior living 8.6 mg oral tablet (2 sources) Start: 03-22-2018 Sennosides-Docusate Sodium Active 2 TABLET PO TWICE A DAY March 22, 2018 12:00am Continue until first bowel movement, then as needed doxycycline monohydrate 100 mg oral capsule (2 sources) Tetracycline-class Drug Start: 03-22-2018 take 100 mg by mouth twice daily Doxycycline Monohydrate Active 100 MG PO TWICE A DAY March 22, 2018 12:00am empagliflozin 10 mg oral tablet (5 sources) Sodium-Glucose Cotransporter 2 Inhibitor Start: 12-24-2021 Jardiance 10 mg oral tablet Dose : 10 mg = 1 tab(s), Oral, qAM, # 30 tab(s), 11 Refill(s), Pharmacy: [facility] #[id number], 170, cm, 12/24/21 9:36:00 EST, Height, kg, 12/24/21 9:36:00 EST, Dosing Weight Start Date: 12/24/21 Status: Ordered escitalopram 5 mg oral tablet (17 sources) Serotonin Reuptake Inhibitor Start: 12-16-2024 escitalopram 5 mg oral tablet Dose : 5 mg = 1 tab(s), Oral, qDay, # 90 tab(s), 3 Refill(s), [id number], 170.2, cm, 12/16/24 11:08:00 EST, Height, kg, 12/16/24 11:08:00 EST, Dosing Weight Start Date: 12/16/24 Status: Ordered Quantity: 90.0 Unit: tab(s) Repeat number: 4 Start: 12-26-2023 escitalopram 5 mg oral tablet Dose : 5 mg = 1 tab(s), Oral, qDay, # 90 tab(s), 3 Refill(s), Pharmacy: [id number], 168, cm, 12/26/23 15:54:00 EST, Height, kg, 12/26/23 15:54:00 EST, Dosing Weight Start Date: 12/26/23 Status: Ordered Quantity: 90.0 Unit: tab(s) Repeat number: 4 Start: 12-24-2021 escitalopram 5 mg oral tablet Dose : 5 mg = 1 tab(s), Oral, qDay, # 90 tab(s), 3 Refill(s), Pharmacy: [facility]/pharmacy #[id number], 170, cm, 12/24/21 15:55:00 EST, Height, kg, 12/24/21 15:55:00 EST, Dosing Weight Start Date: 12/24/21 Status: Ordered Start: 03-03-2021 escitalopram 5 mg oral tablet Dose : 5 mg = 1 tab(s), Oral, qDay, # 90 tab(s), 3 Refill(s), [id number], 170, cm, 03/03/21 8:02:00 EDT, Height, kg, 03/03/21 8:02:00 EDT, Dosing Weight Start Date: 03/03/21 Status: Ordered Start: 2016 take 2 tablets by mo [facility] once daily Escitalopram Oxalate (Lexapro) 5 MG tablet Active 10 mg PO DAILY 2016 1:00am ezetimibe 10 mg oral tablet (12 sources) Dietary Cholesterol Absorption Inhibitor Start: 03-18-2025 take 1 tablet by mouth once daily Ezetimibe 10 mg tablet Active 10 mg PO DAILY March 18, 2025 12:00am Start: 12-26-2023 End: 12-20-2024 ezetimibe 10 mg oral tablet Dose : 10 mg = 1 tab(s), Oral, qDay, # 90 tab(s), 3 Refill(s), [id number], 168, cm, 12/26/23 15:54:00 EST, Height, kg, 12/26/23 15:54:00 EST, Dosing Weight Start Date: 12/26/23 Stop Date: 12/20/24 Status: Ordered Quantity: 90.0 Unit: tab(s) Repeat number: 4 Start: 04-28-2021 End: 03-16-2023 ezetimibe 10 mg oral tablet Dose : 10 mg = 1 tab(s), Oral, qDay, # 90 tab(s), 3 Refill(s), [id number], 170, cm, 03/21/22 16:16:00 EDT, Height, kg, 03/21/22 16:16:00 EDT, Dosing Weight Start Date: 03/21/22 Stop Date: 03/16/23 Status: Ordered FreeStyle Marysol 3+ Sensors (2 sources) Start: 11-26-2024 FreeStyle Marysol 3+ Sensors See Instructions, Place once sensor to the back of the upper arm every 15 days. Use reader or phone willi for daily blood sugar checks. 1 month supply, # 2 EA, 11 Refill(s), Pharmacy: [facility], 171.5, cm, 11/21/24 7:23:00 EST, Height, 97.4, kg, 11/22/24 8:40:00 EST, Dosing Weight Start Date: 11/26/24 Status: Ordered Quantity: 2.0 Unit: EA Repeat number: 12 furosemide 40 mg oral tablet (2 sources) Loop Diuretic Start: 03-03-2025 take 1 tablet by mouth once daily in the morning Furosemide (Lasix) 40 mg tablet Active 40 mg PO EVERY MORNING March 03, 2025 12:00am hydroCHLOROthiazide 25 mg oral tablet (6 sources) Thiazide Diuretic Start: 12-26-2023 hydroCHLOROthiazide 25 mg oral tablet Dose : 25 mg = 1 tab(s), Oral, qDay, # 90 tab(s), 3 Refill(s), Pharmacy: [facility] #[id number], 168, cm, 12/26/23 15:54:00 EST, Height, kg, 12/26/23 15:54:00 EST, Dosing Weight Start Date: 12/26/23 Status: Ordered Start: 09-09-2022 hydroCHLOROthi azide 25 mg oral tablet Dose : 25 mg = 1 tab(s), Oral, qDay, 0 Refill(s) Start Date: 09/09/22 Status: Ordered Start: 03-03-2021 hydroCHLOROthi azide 25 mg oral tablet Dose : 25 mg = 1 tab(s), Oral, qDay, # 90 tab(s), 3 Refill(s), Pharmacy: [facility] #[id number], 170, cm, 03/03/21 8:02:00 EDT, Height, kg, 03/03/21 8:02:00 EDT, Dosing Weight Start Date: 03/03/21 Status: Ordered hydroCHLOROthiazide 25 mg / losartan potassium 100 mg oral tablet (2 sources) Thiazide Diuretic, Angiotensin 2 Receptor Elizabeth Start: 08-24-2018 Losartan-Hydrochlorothiazide Active 1 EACH PO August 24, 2018 12:00am 3 ml insulin aspart, human 100 unt/ml pen injector (20 sources) Insulin Analog Start: 09-09-2022 NovoLOG FlexPen 100 units/mL injectable solution Dose : 30 unit(s) =, Subcutaneous, BIDAC, # 3 mL, 0 Refill(s) Start Date: 09/09/22 Status: Ordered Start: 01-15-2018 End: 03-18-2025 Insulin Aspart U-100 (Novolo g Flexpen U-100 Insulin) 100 UNITS/ML insulin pen Discontinued 30 U SC TWICE A DAY January 15, 2018 12:13pm March 18, 2025 8:33am Start: 01-15-2018 Insulin Aspart U-100 (Novolog Flexpen U-100 Insulin) 100 UNITS/ML Flexpen Active 32 UNITS SC TWICE A DAY January 15, 2018 12:13pm Start: 11-01-2016 End: 01-15-2018 Insulin Aspart U-100 (Novolo g Flexpen U-100 Insulin) 100 UNITS/ML Flexpen Discontinued 8 U SC THREE TIMES DAILY BEFORE MEALS November 01, 2016 1:00am January 15, 2018 12:13pm Start: 10-21-2016 End: 11-01-2016 Insulin Aspart U-100 (Novolo g Flexpen U-100 Insulin) 100 UNITS/ML Flexpen Discontinued 0 U SC BEFORE MEALS AND AT BEDTIME October 21, 2016 3:12pm November 01, 2016 11:40pm Please contact the information source for Protocol details. Start: 2016 End: 10-21-2016 Insulin Aspart U-100 (Novolo g Flexpen (Bkc)) 100 UNITS/ML Flexpen Discontinued 20 U SC TWICE DAILY WITH MEALS 2016 1:00am October 21, 2016 10:35am 3 ml insulin degludec 100 unt/ml pen injector (11 sources) Insulin Analog Start: 11-12-2024 End: 11-07-2025 inject 1 dose by subcutaneous injection once daily Tresiba FlexTouch 100 units/mL 3 mL subcutaneous solution Dose : 40 unit(s) =, Subcutaneous, qDay, # 10 mL, 3 Refill(s), other reason (Rx) Start Date: 11/12/24 Stop Date: 11/07/25 Status: Ordered Quantity: 10.0 Unit: mL Repeat number: 4 Start: 05-18-2023 End: 05-12-2024 inject 1 dose by subcutaneous injection once daily Tresiba FlexTouch 100 units/mL 3 mL subcutaneous solution Dose : 60 unit(s) =, Subcutaneous, qDay, # 15 mL, 3 Refill(s) Start Date: 05/18/23 Stop Date: 05/12/24 Status: Ordered Start: 04-19-2022 End: 04-14-2023 inject 1 dose by subcutaneous injection twice daily Tresiba FlexTouch 100 units/mL 3 mL subcutaneous solution Dose : 80 unit(s) =, Subcutaneous, BID, # 144 mL, 3 Refill(s) Start Date: 04/19/22 Stop Date: 04/14/23 Status: Ordered Start: 01-15-2018 Insulin Deglud ec (Tresiba Flextouch U-100) 100 UNIT/ML Insuln.Pen Active 64 UNIT SQ TWICE A DAY January 15, 2018 1:00am Insulin Degludec (Tresiba Flextouch U-100) 100 UNIT/ML insulin pen (5 sources) Start: 01-15-2018 Insulin Deglud ec (Tresiba Flextouch U-100) 100 UNIT/ML insulin pen Active 38 U SC Q24H January 15, 2018 1:00am Start: 01-15-2018 Insulin Deglud ec (Tresiba Flextouch U-100) 100 UNIT/ML insulin pen Active 60 U SC Q24H January 15, 2018 1:00am Start: 01-15-2018 Insulin Deglud ec (Tresiba Flextouch U-100) 100 UNIT/ML insulin pen Active 80 U SQ TWICE A DAY January 15, 2018 1:00am Start: 01-15-2018 Insulin Deglud ec (Tresiba Flextouch U-100) 100 UNIT/ML insulin pen Active 80 UNIT SQ TWICE A DAY January 15, 2018 1:00am LORazepam 0.5 mg oral tablet (5 sources) Benzodiazepine Start: 08-09-2021 take 1 tablet by mouth three times daily as needed for anxiety LORazepam 0.5 mg oral tablet TAKE 1 TABLET BY MOUTH THREE TIMES A DAY NEEDED FOR ANXIETY SEPARATE FROM PERCOCET BY 2 HOURS Start Date: 08/09/21 Status: Ordered losartan potassium 25 mg oral tablet (11 sources) Angiotensin 2 Receptor Elizabeth Start: 03-18-2025 take 1 tablet by mouth once daily Losartan 100 mg tablet Active 100 mg PO DAILY March 18, 2025 12:00am Start: 03-18-2025 take 1 tablet by saad th twice daily Losartan 25 mg tablet Active 25 mg PO TWICE A DAY March 18, 2025 12:00am Start: 02-19-2025 losartan 25 mg oral tablet Dose : 25 mg = 1 tab(s), Oral, qDay, 0 Refill(s) Start Date: 02/19/25 Status: Ordered Repeat number: 1 Start: 11-14-2023 End: 12-18-2024 losartan 100 mg oral tablet Dose : 100 mg = 1 tab(s), Oral, qDay, # 100 tab(s), 3 Refill(s), Pharmacy: [facility]/pharm[facility] #[id number], 168.5, cm, 09/25/23 13:53:00 EDT, Height, kg, 09/25/23 13:53:00 EDT, Dosing Weight Start Date: 11/14/23 Stop Date: 12/18/24 Status: Ordered Start: 12-24-2021 losartan 100 m g oral tablet Dose : 100 mg = 1 tab(s), Oral, qDay, # 90 tab(s), 3 Refill(s), [id number], 170, cm, 12/24/21 15:55:00 EST, Height, kg, 12/24/21 15:55:00 EST, Dosing Weight Start Date: 12/24/21 Status: Ordered Start: 10-26-2020 losartan 100 m g oral tablet Dose : 100 mg = 1 tab(s), Oral, qDay, # 90 tab(s), 3 Refill(s), Pharmacy: [facility]/pharmacy #[id number], 170, cm, 08/24/20 8:56:00 EDT, Height, kg, 08/24/20 8:56:00 EDT, Dosing Weight Start Date: 10/26/20 Status: Ordered metoprolol tartrate 25 mg oral tablet (13 sources) beta-Adrenergic Elizabeth Start: 03-18-2025 take 1 tablet by mouth twice daily Metoprolol Tartrate 25 mg tablet Active 25 mg PO TWICE A DAY March 18, 2025 12:00am Start: 12-16-2024 End: 02-20-2025 take 1 tablet by mouth in the morning metoprolol tartrate 25 mg oral tablet Start: 02/20/25 8:00:00 AM EDT, Dose = 25 mg, = 1 tab(s), Oral, 0, 02/18/25 6:32:00 EDT Start Date: 02/20/25 Stop Date: 02/20/25 Status: Completed Repeat number: 1 Start: 11-12-2024 metoprolol tar trate 25 mg oral tablet Dose : 12.5 mg = 0.5 tab(s), Oral, BIDM, # 30 tab(s), 3 Refill(s), Pharmacy: [facility], 170.2, cm, 11/04/24 4:18:00 EST, Height, kg, 11/11/24 19:14:00 EST, Dosing Weight Start Date: 11/12/24 Status: Ordered Quantity: 30.0 Unit: tab(s) Repeat number: 4 Start: 11-12-2024 End: 11-12-2024 metoprolol tartrate (Lopress or) Start: 11/12/24 8:00:00 AM EST, Dose = 12.5 mg, = 1 EA, Oral, Hold if SBP (mmHg) Start Date: 11/12/24 Stop Date: 11/12/24 Status: Completed Repeat number: 1 Start: 11-11-2024 End: 11-11-2024 metoprolol tartrate (Lopress or) Start: 11/11/24 5:00:00 PM EST, Dose = 12.5 mg, = 1 EA, Oral, Hold if SBP (mmHg) Start Date: 11/11/24 Stop Date: 11/11/24 Status: Completed Repeat number: 1 Start: 11-11-2024 End: 11-11-2024 metoprolol tartrate (Lopress or) Start: 11/11/24 8:00:00 AM EST, Dose = 12.5 mg, = 1 EA, Oral, Hold if SBP (mmHg) Start Date: 11/11/24 Stop Date: 11/11/24 Status: Completed Repeat number: 1 Start: 08-24-2018 take 12.5 mg by mout h twice daily Metoprolol Tartrate Active 12.5 MG PO TWICE A DAY August 24, 2018 12:00am midodrine hydrochloride 5 mg oral tablet (6 sources) alpha-Adrenergic Agonist Start: 03-18-2025 Midod rine 5 mg tablet Active 5 mg PO March 18, 2025 12:00am Start: 11-12-2024 take 1 tablet by saad once daily midodrine 5 mg oral tablet See Instructions, 5 mg on DAY of Dialysis, prior to dialysis, # 30 tab(s), 3 Refill(s), Pharmacy: [facility], 170.2, cm, 11/04/24 4:18:00 EST, Height, kg, 11/11/24 19:14:00 EST, Dosing Weight Start Date: 11/12/24 Status: Ordered Quantity: 30.0 Unit: tab(s) Repeat number: 4 montelukast 10 mg oral tablet (7 sources) Leukotriene Receptor Antagonist Start: 03-22-2018 take 1 tablet by mouth once daily Montelukast 10 MG tablet Active 10 mg PO DAILY@1700 42 March 22, 2018 12:00am Wrbrmxlo-Bwg-Xb-Lyc open-Lutein (Centrum Silver) 1 EACH tablet (7 sources) Start: 2016 take 1 tablet by mouth once daily Rhhqltvg-Zlz-Td-Ly copen-Lutein (Centrum Silver) 1 EACH tablet Active 1 NMA PO DAILY 2016 1:00am Start: 2016 take 1 tablet by saad th once daily Awolmimk-Fpa-Xj-Lycopen-Lutein (Centrum Silver) 1 EACH tablet Active 1 EACH PO DAILY 2016 1:00am omeprazole 20 mg delayed release oral capsule (7 sources) Proton Pump Inhibitor Start: 2016 take 1 capsule by mouth once daily Omeprazole 20 MG capsule Active 20 mg PO DAILY 2016 1:00am ondansetron 4 mg oral tablet (11 sources) Serotonin-3 Receptor Antagonist Start: 02-06-2025 take 1 tablet by mouth every eight hours as needed for nausea and vomiting Ondansetron Hcl 4 mg tablet Active 4 mg PO Q8H as needed for nausea and vomiting February 06, 2025 12:00am Start: 01-23-2025 End: 02-22-2025 ondansetron 4 mg oral tablet , disintegrating Dose : 4 mg = 1 tab(s), Oral, q8h, PRN as needed for nausea/vomiting, # 30 tab(s), 2 Refill(s), Pharmacy: [facility]/pharmacy #[id number], Nausea in adult patient, 171, cm, 01/23/25 15:53:00 EST, Height, kg, 01/23/25 15:53:00 EST, Dosing Weight Start Date: 01/23/25 Stop Date: 02/22/25 Status: Ordered Quantity: 30.0 Unit: tab(s) Repeat number: 3 Indication: Nausea Start: 10-21-2016 End: 11-01-2016 take 1 tablet by mouth every eight hours as needed for nausea Ondansetron (Zofran Odt) 8 MG Tab.Rapdis Discontinued 8 mg PO EVERY 8 HOURS NEEDED as needed for Nausea October 21, 2016 1:00am November 01, 2016 11:41pm oxyCODONE hydrochloride 5 mg oral tablet (20 sources) Opioid Agonist Start: 06-06-2023 End: 05-02-2025 take 5-10 mg by mouth every four hours as needed for pain Oxycodone 5 mg Tablet Active 5 - 10 mg PO Q4H as needed for Pain Score 4-10 May 02, 2025 12:00am Start: 03-22-2018 take 5-10 mg by mout h every four hours as needed Oxycodone Active 5 - 10 MG PO EVERY 4 HOURS NEEDED 84 7 March 22, 2018 12:00am Start: 10-21-2016 End: 11-01-2016 take 3 tablets by mouth every four hours as needed for pain Oxycodone 5 MG tablet Discontinued 15 mg PO EVERY 4 HOURS NEEDED as needed for Breakthrough Pain (>4/10) October 21, 2016 1:00am November 01, 2016 11:43pm Start: 10-21-2016 End: 11-01-2016 take 15 mg by mouth every four hours as needed Oxycodone Discontinued 15 MG PO EVERY 4 HOURS NEEDED October 21, 2016 1:00am November 01, 2016 11:43pm Start: 2016 End: 11-01-2016 take 1 tablet by mouth every twelve hours Oxycodone (Oxycontin) 20 MG tablet Discontinued 20 mg PO Q12H October 21, 2016 10:40am November 01, 2016 11:43pm pantoprazole 40 mg delayed release oral tablet (10 sources) Proton Pump Inhibitor Start: 12-26-2023 pantoprazole 40 mg oral enteric coated tablet Dose : 40 mg = 1 tab(s), Oral, qDay, # 90 tab(s), 3 Refill(s), Pharmacy: [facility]/pharmacy #[id number], 168, cm, 12/26/23 15:54:00 EST, Height, kg, 12/26/23 15:54:00 EST, Dosing Weight Start Date: 12/26/23 Status: Ordered Quantity: 90.0 Unit: tab(s) Repeat number: 4 Start: 09-12-2022 pantoprazole 4 0 mg oral enteric coated tablet Dose : 40 mg = 1 tab(s), Oral, qDay, # 90 tab(s), 3 Refill(s), Pharmacy: [facility]/pharmacy #[id number], 170.5, cm, 09/12/22 13:51:00 EDT, Height, kg, 09/12/22 13:51:00 EDT, Dosing Weight Start Date: 09/12/22 Status: Ordered Start: 12-24-2021 pantoprazole 4 0 mg oral enteric coated tablet Dose : 40 mg = 1 tab(s), Oral, qDay, # 90 tab(s), 3 Refill(s), [id number], 170, cm, 12/24/21 15:55:00 EST, Height, kg, 12/24/21 15:55:00 EST, Dosing Weight Start Date: 12/24/21 Status: Ordered Start: 12-14-2020 pantoprazole 4 0 mg oral enteric coated tablet Dose : 40 mg = 1 tab(s), Oral, qDay, # 90 tab(s), 3 Refill(s), [id number], 170, cm, 12/14/20 9:13:00 EST, Height, kg, 12/14/20 9:13:00 EST, Dosing Weight Start Date: 12/14/20 Status: Ordered polyethylene glycol 3350 96226 mg powder for oral solution (4 sources) Osmotic Laxative Start: 11-12-2024 take 17 doses by mouth once daily as needed for constipation Miralax Powder Packet Dose : 17 gram(s) =, Oral, qDay, PRN Constipation, 0 Refill(s) Start Date: 11/12/24 Status: Ordered Repeat number: 1 pravastatin sodium 40 mg oral tablet (14 sources) HMG-CoA Reductase Inhibitor Start: 08-24-2018 take 1 tablet by mouth at bedtime Pravastatin 40 MG tablet Active 40 mg PO AT BEDTIME August 24, 2018 12:00am Start: 2016 End: 11-01-2016 take 1 tablet by mouth at bedtime Pravastatin 40 MG tablet Discontinued 40 mg PO AT BEDTIME 2016 1:00am November 01, 2016 11:42pm semaglutide 7 mg oral tablet (5 sources) Start: 11-26-2024 Rybelsus 7 mg oral tablet Dose : 7 mg = 1 tab(s), Oral, qDay, take at least 30 minutes before first food, beverage, or other oral meds, # 90 tab(s), 3 Refill(s), Pharmacy: [facility], DM2 (diabetes mellitus, type 2), 171.5, cm, 11/21/24 7:23:00 EST, Height, kg, 11/22/24 8:40:00 EST, Dosing Weight Start Date: 11/26/24 Status: Ordered Quantity: 90.0 Unit: tab(s) Repeat number: 4 Indication: Type 2 diabetes mellitus without complications Start: 09-25-2024 Rybelsus 7 mg oral tablet Dose : 7 mg = 1 tab(s), Oral, qDay, take at least 30 minutes before first food, beverage, or other oral meds, # 90 tab(s), 3 Refill(s), Pharmacy: [facility], DM2 (diabetes mellitus, type 2), 168, cm, 09/23/24 15:28:00 EDT, Height, kg, 09/23/24 15:28:00 EDT, Dosing Weight Start Date: 09/25/24 Status: Ordered Quantity: 90.0 Unit: tab(s) Repeat number: 4 Indication: Type 2 diabetes mellitus without complications Semaglutide (Rybelsus) 7 mg tablet (2 sources) Start: 03-18-2025 take 1 tablet by saad once daily Semaglutide (Rybelsus) 7 mg tablet Active 7 mg PO DAILY March 18, 2025 12:00am Tresiba FlexTouch 100 units/mL 3 mL subcutaneous solution (1 source) Start: 08-03-2021 inject 1 dose by subcutaneous injection twice daily Tresiba FlexTouch 100 units/mL 3 mL subcutaneous solution Dose : 64 unit(s) =, Subcutaneous, BID, 0 Refill(s) Start Date: 08/03/21 Status: Ordered Vitamin D3 25 mcg (1000 intl units) oral capsule (8 sources) Start: 09-09-2022 Vitamin D3 25 mcg (1000 intl units) oral capsule Dose : 25 mcg = 1 cap(s), Oral, Daily, 0 Refill(s) Start Date: 09/09/22 Status: Ordered Repeat number: 1 Start: 09-09-2022 Vitamin D3 25 mcg (1000 intl units) oral capsule Dose : 25 mcg = 1 cap(s), Oral, Daily, 0 Refill(s) Start Date: 09/09/22 Status: Ordered Vitamin D3 25 mcg (1000 intl units) oral tablet (1 source) Start: 02-19-2025 Vitamin D3 25 mcg (1000 intl units) oral tablet Dose : 25 mcg = 1 tab(s), Oral, Daily, 0 Refill(s) Start Date: 02/19/25 Status: Ordered Repeat number: 1 Completed/Discontinued Medications Medication Drug Class(es) Dates Sig (Normalized) Sig (Original) amoxicillin 875 mg / clavulanate 125 mg oral tablet (7 sources) Penicillin-class Antibacterial Start: 2016 End: 10-21-2016 take 1 tablet by mouth every twelve hours Amoxicillin-Pot Clavulanate 875 MG tablet Discontinued 875 mg PO Q12H 2016 1:00am October 21, 2016 10:35am ampicillin 2000 mg injection (7 sources) Penicillin-class Antibacterial Start: 10-21-2016 End: 11-01-2016 take 2 g intravenously every six hours Ampicillin Sodium 2 GM/8 ML Vial Discontinued 2 g IV EVERY 6 HOURS October 21, 2016 1:00am November 01, 2016 11:42pm Last dose on 11/28/2016 baclofen 10 mg oral tablet (1 source) gamma-Aminobutyric Acid-ergic Agonist Start: 04-28-2021 End: 06-27-2021 baclofen 10 mg oral tablet Dose : 10 mg = 1 tab(s), Oral, TID, PRN Spasm, # 90 tab(s), 1 Refill(s), Pharmacy: [facility]/pharmacy #[id number], Lumbar paraspinal muscle spasm, 170, cm, 04/28/21 11:04:00 EDT, Height, kg, 04/28/21 11:04:00 EDT, Dosing Weight Start Date: 04/28/21 Stop Date: 06/27/21 Status: Ordered bisacodyl 5 mg delayed release oral tablet (7 sources) Stimulant Laxative Start: 10-21-2016 End: 11-01-2016 take 1 tablet by mouth once daily Bisacodyl 5 MG tablet Discontinued 5 mg PO DAILY October 21, 2016 1:00am November 01, 2016 11:42pm DAPTOmycin 500 mg injection (5 sources) Lipopeptide Antibacterial Start: 06-05-2023 End: 03-18-2025 Daptomycin 500 mg Recon Soln Discontinued 750 mg IV EVERY 48 HOURS June 05, 2023 12:00am March 18, 2025 8:32am stop date 07/16/23. Dx: prosthetic joint infection weekly bmp, cbc, LFT, CK, and ESR. fax to [phone] routine picc care per protocol Start: 06-05-2023 Daptomycin Act eliot 750 MG IV EVERY 48 HOURS June 05, 2023 12:00am stop date 07/16/23. Dx: prosthetic joint infection weekly bmp, cbc, LFT, CK, and ESR. fax to [phone] routine picc care per protocol docusate sodium 100 mg oral capsule (7 sources) Start: 10-21-2016 End: 11-01-2016 take 2 capsules by mouth twice daily Docusate Sodium (Dok) 100 MG capsule Discontinued 200 mg PO TWICE A DAY October 21, 2016 1:00am November 01, 2016 11:42pm 0.4 ml enoxaparin sodium 100 mg/ml prefilled syringe (7 sources) Low Molecular Weight Heparin Start: 10-21-2016 End: 11-01-2016 Enoxaparin 40 MG/0.4 ML syringe Discontinued 40 mg SC DAILY@0600 October 21, 2016 1:00am November 01, 2016 11:39pm fluconazole 100 mg oral tablet (7 sources) Azole Antifungal Start: 10-21-2016 End: 11-01-2016 take 2 tablets by mouth once daily Fluconazole 100 MG tablet Discontinued 200 mg PO DAILY October 21, 2016 1:00am November 01, 2016 11:40pm Start: 10-21-2016 End: 11-01-2016 take 200 mg by mouth once daily Fluconazole Discontinued 200 MG PO DAILY October 21, 2016 1:00am November 01, 2016 11:40pm 3 ml insulin detemir 100 unt/ml pen injector (7 sources) Insulin Analog Start: 10-21-2016 End: 11-01-2016 Insulin Detemir U-100 (Levemir Flextouch U100 Insulin) 100 UNITS/ML Insuln.Pen Discontinued 35 U SC TWICE A DAY October 21, 2016 1:00am November 01, 2016 11:42pm Start: 10-21-2016 End: 11-01-2016 Insulin Detemir U-100 (Levem ir Flextouch U-100 Insuln) 100 UNITS/ML Insuln.Pen Discontinued 35 UNITS SC TWICE A DAY October 21, 2016 1:00am November 01, 2016 11:42pm 1.5 ml insulin glargine 300 unt/ml pen injector (7 sources) Insulin Analog Start: 2016 End: 10-21-2016 inject 25 [IU] by subcutaneous injection twice daily Insulin Glargine U-300 Conc (Lisa Helm) 300 UNIT/ML Ml Discontinued 25 U SQ TWICE A DAY 2016 1:00am October 21, 2016 10:34am meropenem 500 mg injection (5 sources) Penem Antibacterial Start: 06-05-2023 End: 03-18-2025 Meropenem 500 mg Recon Soln Discontinued 500 mg IV EVERY 12 HOURS 80 40 June 05, 2023 12:00am March 18, 2025 8:33am stop date 07/16/23. Dx: prosthetic joint infection weekly bmp, cbc, LFT, CK, and ESR. fax to [phone] routine picc care per protocol NovoLOG FlexPen 100 units/mL injectable solution (1 source) Start: 01-27-2020 End: 01-21-2021 NovoLOG FlexPen 100 units/mL injectable solution Dose : 36 unit(s) =, Subcutaneous, BIDAC, # 66 mL, 3 Refill(s), Pharmacy: [facility]/pharmacy #[id number], 170.2, cm, 01/27/20 15:52:00 EST, Height, kg, 01/27/20 15:52:00 EST, Dosing Weight Start Date: 01/27/20 Stop Date: 01/21/21 Status: Ordered promethazine hydrochloride 25 mg oral tablet (7 sources) Phenothiazine Start: 2016 End: 10-21-2016 take 1 tablet by mouth every four hours as needed for nausea Promethazine 25 MG tablet Discontinued 25 mg PO EVERY 4 HOURS NEEDED as needed for Nausea 2016 1:00am October 21, 2016 10:35am sennosides, senior living 8.6 mg oral tablet (7 sources) Start: 2016 End: 11-01-2016 take 1 tablet by mouth twice daily as needed Sennosides (Lesly-Bee) 1 TABLET tablet Discontinued 1 {tbl} PO TWICE A DAY as needed for Constipation 2016 1:00am November 01, 2016 11:42pm traMADol hydrochloride 50 mg oral tablet (7 sources) Opioid Agonist Start: 01-15-2018 End: 03-22-2018 take 1 tablet by mouth every six hours as needed for pain Tramadol 50 MG tablet Discontinued 50 mg PO EVERY 6 HOURS NEEDED as needed for Pain January 15, 2018 1:00am March 22, 2018 10:35am valsartan 80 mg oral tablet (7 sources) Angiotensin 2 Receptor Elizabeth Start: 2016 End: 06-07-2023 take 1 tablet by mouth once daily Valsartan 80 MG tablet Discontinued 80 mg PO DAILY 2016 1:00am June 07, 2023 11:31am vancomycin 1000 mg injection (14 sources) Glycopeptide Antibacterial Start: 10-27-2016 End: 11-01-2016 take 2000 mg intravenously every twenty-four hours Vancomycin 1,000 MG/20 ML Vial Discontinued 2000 mg IV Q24H October 27, 2016 1:00am November 01, 2016 2:15pm picc line care vanc trough, bmp, cbc q5d with sed rate CRP q [address] Pineda [phone] Start: 10-21-2016 End: 11-01-2016 take 1500 mg intravenously every twelve hours Vancomycin 1,000 MG/20 ML Vial Discontinued 1500 mg IV Q12H October 21, 2016 1:00am November 01, 2016 2:15pm Last dose on 11/28/2016 Problems Active Problems Problem Classification Problem Date Documented Date Episodic/Chronic Acute and unspecified renal failure (9 sources) Injury of kidney; Translations: [Acute kidney failure, unspecified] Onset: 4 06-03-2023 Episodic Acute myocardial infarction (6 sources) Non-ST elevation (NSTEMI) myocardial infarction; Translations: [Myocardial infarction] Onset: 4 Chronic Acute posthemorrhagic anemia (1 source) Acute posthemorrhagic anemia; Translations: [Acute posthemorrhagic anemia] Onset: 4 Episodic Administrative/social admission (1 source) Family tension 06-04-2021 Episodic Allergic reactions (1 source) Environmental allergy 01-23-2025 Episodic Chronic kidney disease (20 sources) Chronic kidney disease stage 3; Translations: [Chronic kidney disease stage 3B ] Onset: 4 03-21-2022 Chronic Chronic obstructive pulmonary disease and bronchiectasis (20 sources) Chronic obstructive lung disease; Translations: [Chronic obstructive pulmonary disease, unspecified] Onset: 4 09-09-2016 Chronic Coagulation and hemorrhagic disorders (1 source) Thrombocytopenic disorder; Translations: [Thrombocytopenia, unspecified] Onset: 4 Chronic Complication of device; implant or graft (7 sources) 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; Translations: [Infection and inflammatory reaction due to internal right knee prosthesis, initial encounter] 06-05-2023 Episodic Congestive heart failure; nonhypertensive (2 sources) Acute on chronic systolic heart failure; Translations: [Acute on chronic systolic (congestive) heart failure] Onset: 5 Chronic Coronary atherosclerosis and other heart disease (20 sources) Coronary atherosclerosis; Translations: [History of myocardial infarction] Onset: 4 05-01-2020 Chronic Comment on above: Status post PCI with BECKA to RCA in the setting of a Non-STEMI on 07/03/18 Coronary atherosclerosis and other heart disease (3 sources) Patient post angioplasty; Translations: [Coronary angioplasty status] Onset: 5 Episodic Diabetes mellitus with complications (4 sources) Chronic kidney disease due to type 2 diabetes mellitus; Translations: [Type 2 diabetes mellitus with diabetic chronic kidney disease] Onset: 5 Chronic Diabetes mellitus without complication (20 sources) Diabetes mellitus; Translations: [Type 2 diabetes mellitus] Onset: 4 07-10-2015 Chronic Disorders of lipid metabolism (18 sources) Pure hypercholesterolemia; Translations: [Hyperlipidemia] Onset: 4 01-27-2020 Chronic Esophageal disorders (20 sources) Gastroesophageal reflux disease; Translations: [Gastro-esophageal reflux disease without esophagitis] Onset: 4 09-09-2016 Chronic Essential hypertension (20 sources) Hypertensive disorder; Translations: [Essential (primary) hypertension] Onset: 4 07-10-2015 Chronic Hypertension with complications and secondary hypertension (5 sources) Chronic kidney disease due to hypertension; Translations: [Hypertensive chronic kidney disease with stage 1 through stage 4 chronic kidney disease, or unspecified chronic kidney disease] Onset: 5 Chronic Infective arthritis and osteomyelitis (except that caused by tuberculosis or sexually transmitted disease) (16 sources) Infective arthritis; Translations: [Pyogenic arthritis, unspecified] 03-21-2018 Episodic Mood disorders (14 sources) Depression; Translations: [Depressive disorder] 09-09-2016 Chronic Nausea and vomiting (1 source) Nausea 01-23-2025 Episodic Nonspecific chest pain (2 sources) Chest pain Onset: 4 11-04-2024 Episodic Occlusion or stenosis of precerebral arteries (5 sources) Carotid artery occlusion; Translations: [Occlusion and stenosis of left carotid artery] Onset: 4 Chronic Open wounds of extremities (7 sources) Laceration of left little finger; Translations: [Laceration without foreign body of left little finger without damage to nail, initial encounter] 12-25-2020 Episodic Osteoarthritis (10 sources) Osteoarthritis 09-09-2016 Chronic Other aftercare (2 sources) Surgical follow-up 11-14-2024 Episodic Other and ill-defined heart disease (7 sources) Heart disease 09-09-2016 Chronic Other circulatory disease (1 source) Arteriovenous fistula, acquired; Translations: [Arteriovenous fistula, acquired] Onset: 5 Chronic Other connective tissue disease (7 sources) History of revision of right total knee arthroplasty; Translations: [Presence of right artificial knee joint] 06-01-2023 Chronic Other connective tissue disease (2 sources) Presence of right artificial knee joint; Translations: [Knee joint replacement] 06-07-2023 Chronic Other connective tissue disease (5 sources) Plantar fasciitis of left foot 05-13-2024 Episodic Other connective tissue disease (3 sources) Pain in right lower limb 11-21-2024 Episodic Other gastrointestinal disorders (5 sources) H/O: abdominal hernia 07-02-2018 Episodic Other lower respiratory disease (1 source) Dyspnea; Translations: [Shortness of breath] Episodic Other lower respiratory disease (1 source) Shortness of breath; Translations: [Shortness of breath] Onset: 5 Episodic Other male genital disorders (10 sources) Impotence 09-09-2016 Chronic Other non-traumatic joint disorders (7 sources) Pain in unspecified knee; Translations: [Chronic knee pain] 03-21-2018 Episodic Other screening for suspected conditions (not mental disorders or infectious disease) (10 sources) Hypotestosteronism 09-09-2016 Episodic Other upper respiratory disease (2 sources) Hoarse 12-16-2024 Episodic Residual codes; unclassified (10 sources) User of smokeless tobacco 05-01-2020 Episodic Comment on above: 11/06/19 PT USES MEGAN W Thyroid disorders (1 source) Hypothyroidism; Translations: [Hypothyroidism, unspecified] Chronic Unclassified (1 source) Unknown / UNK(Unknown) Onset: 7 Unclassified (10 sources) Chronic pain following right total knee arthroplasty 07-09-2019 Unclassified (20 sources) Patient encounter status 03-21-2022 Unclassified (5 sources) Long-term current use of insulin 06-12-2023 Past or Other Problems Problem Classification Problem Date Documented Da te Episodic/Chronic Unclassified (1 source) H47.10 Onset: 05-29-2017 Results Test Name Value Interpretation Reference Range Facility MR/PAT.ROMULOon 05-02-2025 MR/PAT.ANE [facility] Medical Records Department [address] [place] [address] PAT - Anesthesia 05/02/25 1221 MR#: [id number] Acct: [id number] Name: VEL NICHOLS Rep #: [id number] : 1960 64 From: Daniel Murillo MD PCP: Dr. Ct Dyson, [place] [facility] [place] C [place] [facility] [place] Diagnosis/Proposed Procedure Planned Operative Procedure(s): (L) Left Arm Stage11 Basilic Transposition Anesthesia History Anesthesia History - assistant front end manager: Anesthesia History - assistant front end manager Hx Hospitalization Yes: HEART 10/2024, 02/202505/02/25 11:25 CKD Any Problems With Anesthesia No 05/02/25 11:25 Cholinesterase deficiency No 05/02/25 11:25 You/Your Family Experience No 05/02/25 11:25 fever (hyperthermia) with Relationship Recent Exposure to Contagious No 04/01/25 09:40 Disease Does patient have nerve No 05/02/25 11:25 stimulator Patient instructed to have device shut off --Does patient have Pacemaker or ICD? When Was Last Pacemaker Check QUESTION #4 FULL TEXT: You/Your Family Experience fever (hyperthermia) with Anesthesia Last Oral Intake Last Oral intake: Last Oral Intake NPO since Meds taken in AM with sips of water? Meds patient instructed to take am of surgery PONV PONV - assistant front end manager: PONV - assistant front end manager Female No 05/02/25 11:25 HX of Motion Sickness No 05/02/25 11:25 HX of N/V After Surgery No 05/02/25 11:25 Non-Smoker Yes 05/02/25 11:25 Duration of Surgery greater Yes 05/02/25 11:25 than 60 minutes Number of Risk Factors 2 05/02/25 11:25 PONV Score Moderate Risk 05/02/25 11:25 Height Weight Height Weight: Anesthesia: Height Weight Height 5 ft 7.5 in 04/14/25 12:20 Respiratory Assessment Respiratory Assessment - assistant front end manager: Respiratory Tract Infection Hx - assistant front end manager Hx Respiratory Tract Infection No 05/02/25 11:25 STOP Sleep Apnea STOP Sleep Apnea - assistant front end manager: STOP Sleep Apnea - assistant front end manager Hx Hypertension Yes 05/02/25 11:25 Hx Sleep Apnea No 05/02/25 11:25 CPAP No 05/02/25 11:25 BIPAP No 05/02/25 11:25 Do you snore loudly (louder No 05/02/25 11:25 than talking or can be heard Do you often feel tired/ No 05/02/25 11:25 fatigued/ sleepy during daytime? Has anyone observed you stop No 05/02/25 11:25 breathing during sleep? STOP Results Negative 05/02/25 11:25 QUESTION #5 FULL TEXT : Do you snore loudly (louder than talking or can be heard through closed doors)? Tobacco Use History Tobacco Use History - assistant front end manager: Tobacco Use History - assistant front end manager Tobacco Use Smoking Status Former smoker 05/02/25 11:25 Hx Tobacco Use Yes: CHEWS 05/02/25 11:25 Years Smoking Packs Smoked per Day Smoking Cessation Date was No - quit smoking greater 05/02/25 11:25 within the last 15 years than 15 years ago Hx Smoking Cessation Date Hx Smoking Cessation Counseling Hematologic Medial History Hematologic Hx - assistant front end manager: Hematologic Medical Hx - fisher seal Hx of Blood Transfusion Yes 05/02/25 11:25 Hx of Transfusion in last 3 No 05/02/25 11:25 Months Date of Last Transfusion (if within last 3 months) Ever experience any problems No 05/02/25 11:25 with transfusion(s)? Specify any problems Hx of Preganancy in last 3 N/A 05/02/25 11:25 Months Nurse Filling Out Transfusion MGRIMICHELLE 05/02/25 11:25 Questions: Date: 05/02/25 05/02/25 11:25 Time: 11:05/02/25 11:25 Patient unable to answer at this time (ie. 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 Hx Now Gestational Age (in weeks): EDC: Hx Hx Para Hx Section SAB No 05/02/25 11:25 [facility] Medical History (Updated 05/02/25 @ 11:40 by Jerica Morgan) History of MRSA infection History of renal disease History of renal dialysis Former smoker History of echocardiogram History of heart attack Loss of hearing Wears dentures Depression Alcohol use Insulin dependent diabetes mellitus Arthritis High cholesterol Back pain History of hiatal hernia Dietary restriction Gastric reflux COPD (chronic obstructive pulmonary disease) Smoker History of pain when walking History of edema History of stress test Cardiology follow-up encounter Hypertension NSTEMI (non-ST elevated myocardial infarction) Home Medications ???Medication ???Instructions ???Recorded ???Last Taken ???Type escitalopram oxalate 5 mg tablet 10 mg PO DAILY depression 10/15/16 03/31/25 History (Lexapro) multivit (more content not included)... Normal [facility] LIPIDon 04-19-2025 Cholesterol [Mass/Vol] 136 mg/dL Normal 0-200 [facility] Comment on above: Result Comment: Chol esterol Reference Interval: Less than 200 Desirable 200-239 Borderline high risk 240 and above High risk Performed By: #### L IPID #### [address] [address] Cholesterol in HDL [Mass/Vol] 38 mg/dL Low 40-60 [facility] Comment on above: Performed By: #### L IPID #### [address] [place], [place] [address] Cholesterol in LDL [Mass/Vol] 74 mg/dL Normal 0-130 [facility] Comment on above: Performed By: #### L IPID #### [address] [place], [place] [address] Triglyceride [Mass/Vol] 122 mg/dL Normal 0-150 [facility] Comment on above: Result Comment: Trig lyceride Reference Interval: Less than 150 Normal 150-199 Borderline high risk 200-499 High risk 500 or higher Very high risk Performed By: #### L IPID #### [address] [place], [place] [address] MR/BMSNinfa 04-14-2025 MR/BMSJOE [facility] Vascular Surgery [address] [place] [address] OFFICE VISIT Date of Service: 04/14/25 MR#: [id number] Acct: [id number] Name: VEL NICHOLS Rep #: [id number] : 1960 Provider: Dr. Rui Vera MD Age/Sex: 64/M Location: 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 Required: No Accompanied by: Self Is patient in pain?: No Allergies bee venom protein (honey bee) (bee sting) Allergy (Verified 04/14/25 12:19) Swelling lisinopril Adverse Reaction (Unknown, Verified 04/14/25 12:19) cough Medications ???Medication ???Instructions ???Recorded ???Confirmed ???Type escitalopram oxalate 5 mg tablet 10 mg PO DAILY depression 10/15/16 04/14/25 History (Lexapro) ifxzmgwx-xqz-itrmx acid 0.4 1 ea PO DAILY supplement 10/15/16 04/14/25 History mg-lycopene 300 mcg-lutein 250 mcg tablet (Centrum Silver) omeprazole 20 mg capsule,delayed 20 mg PO DAILY gerd 10/15/1604/14 History release insulin degludec 100 unit/mL (3 60 unit subcut Q24H diabetes 01/1504/14/25 History mL) subcutaneous pen (Tresiba FlexTouch U-100 insulin) montelukast 10 mg tablet 10 mg PO DAILY@1700 #42 tabs 03/2204/14/25 Rx pravastatin 40 mg tablet 40 mg PO QHS 08/24/18 04/14/25 His tory cholecalciferol (vitamin D3) 25 25 mcg PO DAILY 05/17/23 04/14/25 History mcg (1,000 unit) tablet (Vitamin D3) acetaminophen 500 mg tablet 1,000 mg (2 x 500 mg) PO Q8 #180 0 06/06/23 04/14/25 Rx tabs oxycodone 5 mg tablet 5 - 10 mg (1 - 2 x 5 mg) PO .4-6 0 06/06/23 04/14/25 Rx hours prn PRN Pain Score 4-10 7 days #60 tabs ondansetron HCl 4 mg tablet 4 mg PO Q8H PRN nausea and vomitin g 02/06/25 04/14/25 History furosemide 40 mg tablet (Lasix) 40 mg PO QAM 03/03/25 04/14/25 His tory albuterol sulfate 90 mcg/actuation inhalation Q6H PRN PRN wheezing 03/18/25 04/14/25 History aerosol inhaler amlodipine 5 mg tablet 5 mg PO QPM 03/18/25 04/14/25 Hist ory aspirin 81 mg chewable tablet 81 mg PO DAILY 03/18/25 04/14/25 H istory clopidogrel 75 mg tablet 75 mg PO DAILY 03/18/25 04/14/25 H istory ezetimibe 10 mg tablet 10 mg PO DAILY 03/18/25 04/14/25 H istory losartan 100 mg tablet 100 mg PO DAILY 03/18/25 04/14/25 History losartan 25 mg tablet 25 mg PO BID 03/18/25 04/14/25 His tory metoprolol tartrate 25 mg tablet 25 mg PO BID 03/18/25 04/14/25 His tory midodrine 5 mg tablet 5 mg PO MOWEFR 03/18/25 04/14/25 H istory semaglutide 7 mg tablet (Rybelsus) 7 mg PO DAILY 03/18/25 04/14/25 History Have you fallen in the past year?: No PFSH Medical History MRSA infection History of renal disease History of renal dialysis Former smoker History of echocardiogram History of heart attack Loss of hearing Wears dentures Depression Alcohol use Insulin dependent diabetes mellitus Arthritis High cholesterol Back pain History of hiatal hernia Dietary restriction Gastric reflux COPD (chronic obstructive pulmonary disease) Smoker History of pain when walking History of edema History of stress test Cardiology follow-up encounter Hypertension NSTEMI (non-ST elevated myocardial infarction) Surgical History History of heart surgery History of elbow surgery H/O heart artery stent ( 11/06/24) Hx of knee surgery History of arthroplasty of knee Hx of left cataract extraction Hx of knee surgery Hx of knee surgery Hx of total knee arthroplasty Hx of right cataract extraction Hx of foot surgery Hx of arthroscopy Hx laparoscopic cholecystectomy Hx of hernia repair Hx of arthroscopy of right knee Status post coronary artery stent placement Coronary angioplasty status Status post revision of total replacement of right knee Social History Smoking Status: Former smoker how long ago did patient quit smokin years HPI HPI HPI: VEL INCHOLS, is a 64 M who presents to the office today for follow up of left upper arm fistula creation; copy coordinator branch with dual outflow via basilic (dominant) and cephalic (small, tortuous). He denies any new hand numbness or pain. Incision is satisfactory with no drainage or erythema. ROS General General: Yes allison (more content not included)... Normal [facility] Bedside Glucoseon 04-01-2025 FINGERSTICK GLU 139 mg/dL High 74-106 [facility] Comment on above: Result Comment: CHERYL TANG OF PATIENT CARE PER NURSING PROTOCOL Performed By: #### L 3890.6102, L100.0100, L501.1000, L501.5600 #### [facility] [address] [place], [address] Discharge Instructionon 05-0 Discharge Instruction [facility] Medical Records Department [address] [place] [address] Instructions for Home/Discharge Instructions 04/01/25 1209 MR#: [id number] Acct: [id number] Name: VEL NICHOLS Cassidy Rep #: [id number] : 1960 64 From: Rui Vera MD PCP: Dr. Ct Dyson, DO Status[place] [facility] Discharge Instructions Diet Discharge Diet: No restrictions Activity Lifting Restrictions: do not lift > 20 lbs with left arm for 2 weeks Additional Activity Instructions:: do not submerge incision for 2 weeks Dressing / Incision Call your doctor if your incision/area has: Sudden Increased Bleeding, Increased Pain/ Swelling, Increased Redness and Foul Smelling Discharge Call your doctor if you observe: Coldness, Increased Pain and Numbness or Tingling Remove Dressing in: 2 days Cleanse incision/area with: Soap Water Follow Up Care Test Results: Test results from this visit will be discussed in further detail at your follow-up appointment, if applicable. Discharge Plan Admission Attending Provider: Rui Vera Primary Care Provider: Ct Dyson Instructions Print Language: Citizen Of [place] Discharge Orders/Prescriptions Prescriptions: Continued ondansetron HCl 4 mg tablet 4 mg PO Q8H PRN (Reason: nausea and vomiting) furosemide [Lasix] 40 mg tablet 40 mg PO QAM omeprazole 20 MG capsule 20 mg PO DAILY Patient Comments: acid reflux escitalopram oxalate [Lexapro] 5 MG tablet 10 mg PO DAILY Patient Comments: depression Centrum Silver 1 EACH tablet 1 ea PO DAILY Patient Comments: supplement insulin degludec [Tresiba FlexTouch U-100] 100 UNIT/ML insulin pen 60 unit subcut Q24H montelukast 10 MG tablet 10 mg PO DAILY@1700 Qty: 42 1RF pravastatin 40 MG tablet 40 mg PO QHS cholecalciferol (vitamin D3) [Vitamin D3] 25 mcg (1,000 unit) Tablet 25 mcg PO DAILY acetaminophen 500 mg Tablet 1,000 mg PO Q8 Qty: 180 0RF oxycodone 5 mg Tablet 5 - 10 mg PO .4-6 hours prn PRN (Reason: Pain Score 4-10) 7 Days Qty: 60 0RF clopidogrel 75 mg tablet 75 mg PO DAILY amlodipine 5 mg tablet 5 mg PO QPM losartan 25 mg tablet 25 mg PO BID losartan 100 mg tablet 100 mg PO DAILY ezetimibe 10 mg tablet 10 mg PO DAILY midodrine 5 mg tablet 5 mg PO MOWEFR Patient Comments: BF DIALYSIS metoprolol tartrate 25 mg tablet 25 mg PO BID Rybelsus 7 mg tablet 7 mg PO DAILY Patient Comments: LAST DOSE WILL BE 03/30/25 BF SURGERY aspirin 81 mg Tablet,Chewable 81 mg PO DAILY albuterol sulfate 90 mcg/actuation HFA aerosol inhaler inhalation Q6H PRN PRN (Reason: wheezing) Referrals / Follow Up: Ct Dyson DO [Primary Care Provider] - Disposition Disposition (needs filled in before D/C Order can be placed): Home, Self Care 04/01/25 1214 Rui Vera MD CC: Dr. Ct Dyson DO Signed Normal [facility] deOrdered By: Rui Vera on 04-01-2025 Glucose [Mass/Vol] 139 mg/dL High 74-106 [facility] Comment on above: MANAGEMENT OF PATIEN T CARE PER NURSING PROTOCOL MR/POSTOP.ANEon 04-01-2025 MR/POSTOP.[facility] Medical Records Department [address] [place] [address] Anesthesia Postop Eval I 04/01/25 1227 MR#: [id number] Acct: [id number] Name: VEL NICHOLS Rep #: [id number] : 1960 64 From: Herman Granados CRNA PCP: Dr. Ct Dyson DO Status:REG SDC Y Race: C Location: [place] [address] Anesthesia: Postop Eval I Current Vital Signs Temperature: 97.3 F Pulse Rate: 86 Blood Pressure: 102/71 Respiratory Rate: 16 Pulse Ox: 98 Oxygen Delivery Method: Room Air Assessment Airway patent: Yes Spontaneous unlabored respirations: Yes Mental status: Awake and Calm nausea: No Vomiting: No Anesthesia Complication: No Fluid Hydration Crystalloid volume administer (ml): 450 Total IV fluid infused: 450 Progress Note Anesthesia document: Postop Eval 1 completed: Yes 04/01/25 1228 Date Herman Granados CRNA Cosigner Signature: Date CC: Signed Normal [facility] MR/[id number] 04-01-2025 MR/POSTOPAN2 [facility] Medical Records Department [address] [place] [address] Anesthesia Postop Eval II 04/01/25 1326 MR#: [id number] Acct: [id number] Name: VEL NICHOLS Rep #: [id number] : 1960 64 From: Vi Palomo PCP: Dr. Ct Dyson, DO Status:REG SDC Y Race: C Location: [place] [address]- Anesthesia Postop Eval I Sum Postop Eval Completion status Anesthesia document: Postop Eval 1 completed: Yes Anesthesia Postop Eval I Summary Anesthesia Postop Eval I Summary: Anesthesia Postop Eval I: Assessment Summary Airway patent Yes 04/01/25 12:28 [employer]PKEL Spontaneous unlabored Yes 04/01/25 12:28 [employer]PKEL respirations Mental status Awake,Calm 04/01/25 12:28 [employer]PKEL nausea No 04/01/25 12:28 [employer]PKEL Vomiting No 04/01/25 12:28 [employer].PKEL Anesthesia Postop Eval I: Fluid Summary Crystalloid volume administer 450 04/01/25 12:28 SUPERVIS[employer] PUT[employer] CALUKING.PKEL (ml) Colloids volume administered ( ml) Blood Product volume administered (ml) Total IV fluid infused 450 04/01/25 12:28 SUPERVIS[employer] P[employer]UK[employer].PKEL Anesthesia Postop Eval I: Summary Notes Anesthesia Complication No 04/01/25 12:28 SUPERVIS[employer] PUT[employer]UKING.PKEL Anesthesia Complication Comment: Post-operative progress note Anesthesia: Postop Eval II Evaluation Mental status: Awake and Calm Pain Level: 0 nausea: No Vomiting: No Complications Anesthesia Complication: No 04/01/25 1326 Date Vi Lazaroigner Signature: Date CC: Signed Normal [facility] Operative Reporton 5 Operative Report [facility] Medical Records Department [address] [place] [address] Operative Report 04/01/25 1214 MR#: [id number] Acct: [id number] Name: VEL NICHOLS Rep #: [id number] : 1960 64 From: Rui Vera MD PCP: Dr. Ct Dyson, DO Status:[facility] [place] [facility] Operative Report (Standard) Operative Information Date of Procedure: 04/01/25 Pre-Operative Diagnosis: ESRD Post-Operative Diagnosis: same Surgery/Procedure Performed: left cephalic fistula creation farm instructor: Yes Dental Officer: Iona Duque Tasks completed by first coat operator: Opening, Closing, Opening closing, Hemostasis: Tie and Retracting Type of Anesthesia: Local MAC, Local and MAC RN Documented Start/Stop Times: Operation Date: 04/01/25 11:30 Case Time Into Pre-Op 04/01/25 09:14 Anesthesia Start 04/01/25 10:46 Into Room 04/01/25 10:46 Out of Pre-Op 04/01/25 10:46 Procedure Start 04/01/25 11:09 Procedure End 04/01/25 12:17 Anesthesia End 04/01/25 12:22 Out of Room 04/01/25 12:22 Into Recovery 04/01/25 12:23 Out of Recovery 04/01/25 12:42 Into Phase II Recovery 04/01/25 12:43 Out of Phase II 04/01/25 13:40 Procedure Start Time: 11:10 Procedure Stop Time: 12:15 Select all DRAINS/GRAFTS/IMPLANT S that apply: None Estimated Blood Loss: 8 Specimen collected: No Description of surgery: HPI: Patient is a 64-year-old male with end-stage renal disease currently on dialysis. He had previous vein mapping which revealed adequate upper arm cephalic and basilic vein on the left. He is taken now for fistula creation. Description of procedure: Upon obtaining informed consent and verification of correct patient procedure and site the patient was taken to the operating where he was positioned prepped and draped in usual sterile fashion. Moderate sedation was then administered by anesthesia in the veins of the upper extremity evaluated ultrasound. The cephalic vein in the forearm was not of sufficient caliber for fistula creation. The upper arm cephalic was adequate in caliber however the vessel is very tortuous and it was unclear if this was the main cephalic vein or very robust collaterals. The basilic vein was normal in appearance and large caliber along the entirety of the medial upper arm. There was an intact copy coordinator vein as well as the cubital branches which communicated between the copy coordinator in both the basilic and cephalic outflow veins. It was felt that anastomosis of the copy coordinator would provide dual outflow into both the basilic and cephalic and that if the cephalic did mature and have a more normal appearance then it would be the primary target for the fistula. Skin overlying the vessels just distal to the antecubital crease was anesthetized 1% lidocaine and transverse incision made 1 fingerbreadth distal to the antecubital crease. Bovie electrocautery was dissect into the subcutaneous tissue and self-retaining retractors put in position. Once the confluence of the superficial veins was identified sharp dissection was used to dissect free proximal and distal onto the cubital branches and along the copy coordinator vein. Next Bovie was used to dissect medially down to the fascia overlying the brachial artery with the fascia incised in cruciate figuration self-retaining retractors moved deeper into the wound. Sharp dissection was then used to dissect free the brachial artery bifurcation with care taken to identify and protect adjacent nerve and vein structures. The bifurcation was more proximal then usual in both the radial and ulnar arteries had normal pulse and Doppler signal. Anastomosis between the copy coordinator vein and the radial artery provided the best vessel orientation so a right angle was used to place vessel around the proximal and distal radial artery. The patient was then heparinized allowed to circulate for 3 minutes. The cephalic vein distal and the surgical site was then ligated with silk ties and divided. The copy coordinator vein at its juncture with the deep system was then ligated distally and then divided. The copy coordinator and the outflow vein into the cephalic were then dilated up to 3.5 mm and flushed with heparinized saline. The radial artery was then occluded with Vesseloops and longitudinal arteriotomy created with 11 blade extended the Sheikh scissors. Anastomosis was then performed in end-to-side fashion with a 6-0 Prolene in a running fashion. Putting putting a suture line the vessels are backbled and after completing the suture line clamps removed and satisfactory stasis was noted. There is a satisfactory biphasic Doppler signal in the radial artery at the wrist and normal triphasic Doppler signal in the ulnar at the wrist. There was low resistant Doppler signal in the fistula outflow and a palpable thrill. Heparin was then was reversed with protamine and the incision closed with 3-0 Vicryl (more content not included)... Normal [facility] MR/PAT.ANEon 03-31-2025 MR/PAT.ANE [facility] Medical Records Department [address] [place] [address] PAT - Anesthesia 03/31/25 1527 MR#: [id number] Acct: [id number] Name: VEL NICHOLS Rep #: [id number] : 1960 64 From: Rudy Otero MD PCP: Dr. Ct Dyson, DO Status:PRE SDC Y Race: C [place] [facility] Pre-Assessment Diagnosis/Proposed Procedure Planned Operative Procedure(s): AV FISTULA, PROB LEFT ARM Anesthesia History Anesthesia History - assistant front end manager: Anesthesia History - assistant front end manager Hx Hospitalization Yes: HEART 10/2024, 02/202503/18/25 08:43 CKD Any Problems With Anesthesia No 03/18/25 08:43 Cholinesterase deficiency No 03/18/25 08:43 You/Your Family Experience No 03/18/25 08:43 fever (hyperthermia) with Relationship Recent Exposure to Contagious No 05/31/23 09:34 Disease Does patient have nerve No 03/18/25 08:43 stimulator Patient instructed to have device shut off --Does patient have Pacemaker or ICD? When Was Last Pacemaker Check QUESTION #4 FULL TEXT: You/Your Family Experience fever (hyperthermia) with Anesthesia Last Oral Intake Last Oral intake: Last Oral Intake NPO since Meds taken in AM with sips of water? Meds patient instructed to take am of surgery PONV PONV - assistant front end manager: PONV - assistant front end manager Female No 03/18/25 08:43 HX of Motion Sickness No 03/18/25 08:43 HX of N/V After Surgery No 03/18/25 08:43 Non-Smoker Yes 03/18/25 08:43 Duration of Surgery greater Yes 03/18/25 08:43 than 60 minutes Number of Risk Factors 2 03/18/25 08:43 PONV Score Moderate Risk 03/18/25 08:43 Height Weight Height Weight: Anesthesia: Height Weight Height 5 ft 7 in 06/06/23 12:56 Respiratory Assessment Respiratory Assessment - assistant front end manager: Respiratory Tract Infection Hx - assistant front end manager Hx Respiratory Tract Infection No 03/18/25 08:43 STOP Sleep Apnea STOP Sleep Apnea - assistant front end manager: STOP Sleep Apnea - assistant front end manager Hx Hypertension Yes 03/18/25 08:43 Hx Sleep Apnea No 03/18/25 08:43 CPAP No 05/31/23 14:10 BIPAP No 03/05/18 14:57 Do you snore loudly (louder No 03/18/25 08:43 than talking or can be heard Do you often feel tired/ No 03/18/25 08:43 fatigued/ sleepy during daytime? Has anyone observed you stop No 03/18/25 08:43 breathing during sleep? STOP Results Negative 03/18/25 08:43 QUESTION #5 FULL TEXT : Do you snore loudly (louder than talking or can be heard through closed doors)? 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 Specify any problems Hx of Preganancy in last 3 N/A 03/18/25 08:43 Months Nurse Filling Out Transfusion [facility] 03/18/25 08:43 Questions: Date: 03/18/25 03/18/25 08:43 Time: 08:56 03/18/25 08:43 Patient unable to answer at this time (ie. 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 Hx Now Gestational Age (in weeks): EDC: Hx Hx Para Hx Section SAB No 05/17/23 10:18 Active Medications Active Medications: Current Medications Generic Name Dose Route Start Last Admin Trade Name Frenacho PRN Reason Stop Dose Admin Cefazolin Sodium 2 gm/ Sodium 110 mls @ 150 mls/hr 04/01/25 11:30 Chloride IV 04/01/25 12:13 INTRAOP ONE [facility] Medical History (Updated 03/18/25 @ 08:54 by Antonina Mcmillan) MRSA infection History of renal disease History of renal dialysis Former smoker History of echocardiogram History of heart attack Loss of hearing Wears dentures Depression Alcohol use Insulin dependent diabetes mellitus Arthritis High cholesterol Back pain History of hiatal hernia Dietary restriction Gastric reflux COPD (chronic obstructive pulmonary disease) Smoker History of pain when walking History of edema History of stress test Cardiology follow-up encounter Hypertension NSTEMI (non-ST (more content not included)... Normal [facility] MR/PAT.ANE [facility] Medical Records Department [address] [place] [address] PAT - Anesthesia 03/31/25 1410 MR#: [id number] Acct: [id number] Name: VEL NICHOLS Rep #: [id number] : 1960 64 From: Rudy Otero MD PCP: Dr. 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 When Was Last Pacemaker Check QUESTION #4 FULL TEXT: You/Your Family Experience fever (hyperthermia) with Anesthesia Last Oral Intake Last Oral intake: Last Oral Intake NPO since Meds taken in AM with sips of water? Meds patient instructed to take am of surgery PONV PONV - assistant front end manager: PONV - assistant front end manager Female No 03/18/25 08:43 HX of Motion Sickness No 03/18/25 08:43 HX of N/V After Surgery No 03/18/25 08:43 Non-Smoker Yes 03/18/25 08:43 Duration of Surgery greater Yes 03/18/25 08:43 than 60 minutes Number of Risk Factors 2 03/18/25 08:43 PONV Score Moderate Risk 03/18/25 08:43 Height Weight Height Weight: Anesthesia: Height Weight Height 5 ft 7 in 06/06/23 12:56 Respiratory Assessment Respiratory Assessment - assistant front end manager: Respiratory Tract Infection Hx - assistant front end manager Hx Respiratory Tract Infection No 03/18/25 08:43 STOP Sleep Apnea STOP Sleep Apnea - assistant front end manager: STOP Sleep Apnea - assistant front end manager Hx Hypertension Yes 03/18/25 08:43 Hx Sleep Apnea No 03/18/25 08:43 CPAP No 05/31/23 14:10 BIPAP No 03/05/18 14:57 Do you snore loudly (louder No 03/18/25 08:43 than talking or can be heard Do you often feel tired/ No 03/18/25 08:43 fatigued/ sleepy during daytime? Has anyone observed you stop No 03/18/25 08:43 breathing during sleep? STOP Results Negative 03/18/25 08:43 QUESTION #5 FULL TEXT : Do you snore loudly (louder than talking or can be heard through closed doors)? 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 Specify any problems Hx of Preganancy in last 3 N/A 03/18/25 08:43 Months Nurse Filling Out Transfusion CORKY 03/18/25 08:43 Questions: Date: 03/18/25 03/18/25 08:43 Time: 08:56 03/18/25 08:43 Patient unable to answer at this time (ie. 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 Hx Now Gestational Age (in weeks): EDC: Hx Hx Para Hx Section SAB No 05/17/23 10:18 Active Medications Active Medications: Current Medications Generic Name Dose Route Start Last Admin Trade Name Freq PRN Reason Stop Dose Admin Cefazolin Sodium 2 gm/ Sodium 110 mls @ 150 mls/hr 04/01/25 11:30 Chloride IV 04/01/25 12:13 INTRAOP ONE [facility] Medical History (Updated 03/18/25 @ 08:54 by Antonina Mcmillan) MRSA infection History of renal disease History of renal dialysis Former smoker History of echocardiogram History of heart attack Loss of hearing Wears dentures Depression Alcohol use Insulin dependent diabetes mellitus Arthritis High cholesterol Back pain History of hiatal hernia Dietary restriction Gastric reflux COPD (chronic obstructive pulmonary disease) Smoker History of pain when walking History of edema History of stress test Cardiology follow-up encounter Hypertension NSTEMI (non-ST (more content not included)... Normal [facility] Absolute lymphocyte countOrd ered By: Brett Oscar on 03-21-2025 Lymphocytes Auto (Unsp spec) [#/Vol] 1.58 10*3/uL 0.83-4.51 [facility] Absolute neutrophil countOrd ered By: Brett Oscar on 03-21-2025 Neutrophils (Bld) [#/Vol] 3.7 10*3/uL 2.0-7.7 [facility] Automated lymphocyte count a s percentage of total leukocytesOrdered By: Brett Oscar on 03-21-2025 Lymphocytes/100 WBC Auto (Unsp spec) 25.3 % 19-41 [facility] BUNon 03-21-2025 Urea nitrogen [Mass/Vol] 59 mg/dL High 4- [facility] Comment on above: Performed By: #### L 3890.6102, L100.0100, L501.1000, L501.5600 #### [facility] [address] [place], [address] Urea nitrogen [Mass/Vol] 20 mg/dL High 4-19 [facility] Comment on above: Performed By: #### L 3890.6102, L100.0100, L501.1000, L501.5600 #### [facility] [address] [place], [address] Basophil percentageOrdered B y: Brett Oscar on 03-21-2025 Basophils/100 WBC (Bld) 1.0 % 0-1 [facility] CBC W/Diff, Automatedon 02-26 Absolute Lymph 1.58 X10 3/uL Normal 0.83-4.51 [facility] Comment on above: Performed By: #### L 3890.6102, L100.0100, L501.1000, L501.5600 #### [facility] [address] [place], [address] Absolute Neut 3.7 X10 3/uL Normal 2.0-7.7 [facility] Comment on above: Performed By: #### L 3890.6102, L100.0100, L501.1000, L501.5600 #### [facility] [address] [place], [address] Basophils/100 WBC (Bld) 1.0 % Normal 0-1 [facility] Comment on above: Performed By: #### L 3890.6102, L100.0100, L501.1000, L501.5600 #### [facility] [address] [place], [address] Eosinophils/100 WBC (Bld) 6.6 % High 0-5 [facility] Comment on above: Performed By: #### L 3890.6102, L100.0100, L501.1000, L501.5600 #### [facility] [address] [place], [address] Erythrocyte distribution width (RBC) [Ratio] 14.0 % Normal 11.6-14.6 [facility] Comment on above: Performed By: #### L 3890.6102, L100.0100, L501.1000, L501.5600 #### [facility] [address] [place], [address] Hematocrit (Bld) [Volume fraction] 34.7 % Low 40-54 [facility] Comment on above: Performed By: #### L 3890.6102, L100.0100, L501.1000, L501.5600 #### [facility] [address] [place], [address] Hemoglobin (Bld) [Mass/Vol] 11.4 g/dL Low 13.0-16.5 [facility] Comment on above: Performed By: #### L 3890.6102, L100.0100, L501.1000, L501.5600 #### [facility] [address] [place], [address] IG% 0.300 Normal 0.0-0.9 [facility] Comment on above: Result Comment: IG% - Immature Granulocytes (promyelocytes, myelocytes and metamyelocytes) > 1% indicates that a LEFT SHIFT is Present. Performed By: #### L 3890.6102, L100.0100, L501.1000, L501.5600 #### [facility] [address] [place], [address] Lymphocytes/100 WBC (Bld) 25.3 % Normal 19-41 [facility] Comment on above: Performed By: #### L 3890.6102, L100.0100, L501.1000, L501.5600 #### [facility] [address] [place], [address] MCH (RBC) [Entitic mass] 26.8 pg Low 27.0-32.0 [facility] Comment on above: Performed By: #### L 3890.6102, L100.0100, L501.1000, L501.5600 #### [facility] [address] [place], [address] MCHC (RBC) [Mass/Vol] 32.9 g/dL Normal 32-36 [facility] Comment on above: Performed By: #### L 3890.6102, L100.0100, L501.1000, L501.5600 #### [facility] [address] [place], [address] MCV (RBC) [Entitic vol] 81.6 fL Normal 80-94 [facility] Comment on above: Performed By: #### L 3890.6102, L100.0100, L501.1000, L501.5600 #### [facility] [address] [place], [address] Monocytes/100 WBC (Bld) 7.2 % Normal 0-10 [facility] Comment on above: Performed By: #### L 3890.6102, L100.0100, L501.1000, L501.5600 #### [facility] [address] [place], [address] Neutrophils/100 WBC (Bld) 59.6 % Normal 47-70 [facility] Comment on above: Performed By: #### L 3890.6102, L100.0100, L501.1000, L501.5600 #### [facility] [address] [place], [address] Nucleated RBC (Bld) [#/Vol] 0 10*3/uL Normal 0-5 [facility] Comment on above: Performed By: #### L 3890.6102, L100.0100, L501.1000, L501.5600 #### [facility] [address] [place], [address] Platelet mean volume (Bld) [Entitic vol] 10.2 fL Normal 6.2-12.0 [facility] Comment on above: Performed By: #### L 3890.6102, L100.0100, L501.1000, L501.5600 #### [facility] [address] [place], [address] Platelets (Bld) [#/Vol] 182 10*3/uL Normal 150-450 [facility] Comment on above: Performed By: #### L 3890.6102, L100.0100, L501.1000, L501.5600 #### [facility] [address] [place], [address] RBC (Bld) [#/Vol] 4.25 10*6/uL Low 4.6-6.2 [facility] Comment on above: Performed By: #### L 3890.6102, L100.0100, L501.1000, L501.5600 #### [facility] [address] [place], [address] RDW SD 40.7 fl Normal 35.1-43.9 [facility] Comment on above: Performed By: #### L 3890.6102, L100.0100, L501.1000, L501.5600 #### [facility] [address] [place], [address] WBC (Bld) [#/Vol] 6.2 10*3/uL Normal 4.4-11.0 [facility] Comment on above: Performed By: #### L 3890.6102, L100.0100, L501.1000, L501.5600 #### [facility] [address] [place], [address] Eosinophil percentageOrdered By: Brett Oscar on 03-21-2025 Eosinophils/100 WBC (Bld) 6.6 % High 0-5 [facility] Erythrocyte distribution wid th ratioOrdered By: [facility] Oscar on 03-21-2025 Erythrocyte distribution width (RBC) [Ratio] 14.0 % 11.6-14.6 [facility] Erythrocyte distribution wid th standard deviationOrdered By: [facility] Marily on 03-21-2025 Erythrocyte distribution width (RBC) [Ratio] 40.7 fl 35.1-43.9 [facility] Hematocrit Auto (Bld) [Volum e fraction]Ordered By: [facility] Marily on 03-21-2025 Hematocrit (Bld) [Volume fraction] 34.7 % Low 40-54 [facility] Hemoglobin measurementOrdere d By: [facility] on 03-21-2025 Hemoglobin (Bld) [Mass/Vol] 11.4 g/dL Low 13.0-16.5 [facility] Immature granulocytes/100 WB C Auto (Bld)Ordered By: Brett Oscar on 03-21-2025 Immature granulocytes/100 WBC (Bld) 0.300 % 0.0-0.9 [facility] Comment on above: IG% - Immature Granu locytes (promyelocytes, myelocytes and metamyelocytes) > 1% indicates that a LEFT SHIFT is Present. L3890.6102on 03-21-2025 HEP B Surf Ag Non-Reactive Normal Nonreactive [facility] Comment on above: Result Comment: Reac tive: Presumptive evidence of HBV. Repeatedly reactive samples must be confirmed using a neutralization test ([employer] HBsAg Confirmatory Test) Non-Reactive: HBsAg not detected; does not exclude the possibility of exposure to HBV Performed By: #### L 3890.6102, L100.0100, L501.1000, L501.5600 #### [facility] [place], [address] Laboratory - Microbiology an d Antimicrobial susceptibilityOrdered By: Brett Oscar on 03-21-2025 HBV surface Ag Ql (S) Non-Reactive Nonreactive [facility] Comment on above: Reactive: Presumptiv e evidence of HBV. Repeatedly reactive samples must be confirmed using a neutralization test ([employer] HBsAg Confirmatory Test)Non-Reactive: HBsAg not detected; does not exclude the possibility of exposure to HBV MCV (mean corpuscular volume ) determinationOrdered By: Brett Oscar on 03-21-2025 MCV (RBC) [Entitic vol] 81.6 fL 80-94 [facility] Mean corpuscular hemoglobin (MCH) determinationOrdered By: Brett Oscar on 03-21-2025 MCH (RBC) [Entitic mass] 26.8 pg Low 27.0-32.0 [facility] Mean corpuscular hemoglobin concentration (MCHC) determinationOrdered By: Brett Oscar on 03-21-2025 MCHC (RBC) [Mass/Vol] 32.9 g/dL 32-36 [facility] Mean platelet volume determi nationOrdered By: Brett Oscar on 03-21-2025 Platelet mean volume (Bld) [Entitic vol] 10.2 fL 6.2-12.0 [facility] Monocyte percentageOrdered B y: Brett Oscar on 03-21-2025 Monocytes/100 WBC (Bld) 7.2 % 0-10 [facility] Neutrophil percentageOrdered By: [facility] Oscar on 03-21-2025 Neutrophils/100 WBC (Bld) 59.6 % 47-70 [facility] Nucleated red blood cell per centageOrdered By: Brett Oscar on 03-21-2025 Nucleated RBC/100 WBC (Bld) [Ratio] 0 % 0-5 [facility] Platelet countOrdered By: Tyler Oscar on 03-21-2025 Platelets (Bld) [#/Vol] 182 10*3/uL 150-450 [facility] Potassiumon 03-21-2025 Potassium [Moles/Vol] 4.7 mmol/L Normal 3.3-5.1 [facility] Comment on above: Performed By: #### L 3890.6102, L100.0100, L501.1000, L501.5600 #### [facility] [address] [place] [address]. [place], [address] Potassium measurement (mass/ volume)Ordered By: Brett Oscar on 03-21-2025 Potassium (Unsp spec) [Mass/Vol] 4.7 mmol/L 3.3-5.1 [facility] RBC Auto (Bld) [#/Vol]Ordere d By: Brett Oscar on 03-21-2025 RBC (Bld) [#/Vol] 4.25 10*6/uL Low 4.6-6.2 [facility] Serum or plasma urea nitroge n measurement (mass/volume)Ordered By: Brett Oscar on 03-21-2025 Urea nitrogen [Mass/Vol] 20 mg/dL High 4-19 [facility] White blood cell (WBC) count Ordered By: [facility] on 03-21-2025 WBC (Bld) [#/Vol] 6.2 10*3/uL 4.4-11.0 [facility] Anion gap in Serum or Plasma Ordered By: Rui Vera on 03-20-2025 Anion gap [Moles/Vol] 16 mmol/L High 5-15 [facility] BUN/creatinine ratioOrdered By: Rui Vera on 03-20-2025 Urea nitrogen/Creatinine [Mass ratio] 9.8 mg/mg Low 10-20 [facility] Basic Metabolic Profile (BMP )on 03-20-2025 BUN/CRE 9.8 RATIO Low 10-20 [facility] Comment on above: Performed By: #### L 3890.6102, L100.0100, L501.1000, L501.5600 #### [facility] [address] [place], [address] Calcium [Mass/Vol] 8.9 mg/dL Normal 7.6-11.0 [facility] Comment on above: Performed By: #### L 3890.6102, L100.0100, L501.1000, L501.5600 #### [facility] [address] [place], [address] Chloride [Moles/Vol] 94 mmol/L Low 98-108 [facility] Comment on above: Performed By: #### L 3890.6102, L100.0100, L501.1000, L501.5600 #### [facility] [address] [place], [address] CO2 [Moles/Vol] 24.8 mmol/L Normal 21.0-32.0 [facility] Comment on above: Performed By: #### L 3890.6102, L100.0100, L501.1000, L501.5600 #### [facility] [address] [place], [address] Creatinine [Mass/Vol] 4.97 mg/dL High 0.70-1.20 [facility] Comment on above: Performed By: #### L 3890.6102, L100.0100, L501.1000, L501.5600 #### [facility] [address] [place], [address] GAP 16 High 5-15 [facility] Comment on above: Performed By: #### L 3890.6102, L100.0100, L501.1000, L501.5600 #### [facility] [address] [place], [address] GFR/1.73 sq M.predicted among non-blacks MDRD (S/P/Bld) [Vol rate/Area] 12 mL/min/{1.73_m2} Low >60 [facility] Comment on above: Result Comment: mL/m in/1.73m2 CKD-EPI Creatinine Equation (2020) Performed By: #### L 3890.6102, L100.0100, L501.1000, L501.5600 #### [facility] [address] [place], [address] Glucose [Mass/Vol] 173 mg/dL High 70-99 [facility] Comment on above: Performed By: #### L 3890.6102, L100.0100, L501.1000, L501.5600 #### [facility] [address] [place], [address] Potassium [Moles/Vol] 4.6 mmol/L Normal 3.3-5.1 [facility] Comment on above: Performed By: #### L 3890.6102, L100.0100, L501.1000, L501.5600 #### [facility] [address] [place], [address] Sodium [Moles/Vol] 135 mmol/L Normal 133-145 [facility] Comment on above: Performed By: #### L 3890.6102, L100.0100, L501.1000, L501.5600 #### [facility] [address] [place], [address] Urea nitrogen [Mass/Vol] 49 mg/dL High 4-19 [facility] Comment on above: Performed By: #### L 3890.6102, L100.0100, L501.1000, L501.5600 #### [facility] [address] [place], [address] CBC-Complete Blood Cnt No Di ffon 03-20-2025 Erythrocyte distribution width (RBC) [Ratio] 14.2 % Normal 11.6-14.6 [facility] Comment on above: Performed By: #### L 3890.6102, L100.0100, L501.1000, L501.5600 #### [facility] [address] [place], [address] Hematocrit (Bld) [Volume fraction] 34.5 % Low 40-54 [facility] Comment on above: Performed By: #### L 3890.6102, L100.0100, L501.1000, L501.5600 #### [facility] [address] [place], [address] Hemoglobin (Bld) [Mass/Vol] 11.3 g/dL Low 13.0-16.5 [facility] Comment on above: Performed By: #### L 3890.6102, L100.0100, L501.1000, L501.5600 #### [facility] [address] [place], [address] MCH (RBC) [Entitic mass] 27.3 pg Normal 27.0-32.0 [facility] Comment on above: Performed By: #### L 3890.6102, L100.0100, L501.1000, L501.5600 #### [facility] [address] [place], [address] MCHC (RBC) [Mass/Vol] 32.8 g/dL Normal 32-36 [facility] Comment on above: Performed By: #### L 3890.6102, L100.0100, L501.1000, L501.5600 #### [facility] [address] [place], [address] MCV (RBC) [Entitic vol] 83.3 fL Normal 80-94 [facility] Comment on above: Performed By: #### L 3890.6102, L100.0100, L501.1000, L501.5600 #### [facility] [address] [place], [address] Platelet mean volume (Bld) [Entitic vol] 9.5 fL Normal 6.2-12.0 [facility] Comment on above: Performed By: #### L 3890.6102, L100.0100, L501.1000, L501.5600 #### [facility] [address] [place], [address] Platelets (Bld) [#/Vol] 165 10*3/uL Normal 150-450 [facility] Comment on above: Performed By: #### L 3890.6102, L100.0100, L501.1000, L501.5600 #### [facility] [address] [place], [address] RBC (Bld) [#/Vol] 4.14 10*6/uL Low 4.6-6.2 [facility] Comment on above: Performed By: #### L 3890.6102, L100.0100, L501.1000, L501.5600 #### [facility] [address] [place], [address] RDW SD 42.6 fl Normal 35.1-43.9 [facility] Comment on above: Performed By: #### L 3890.6102, L100.0100, L501.1000, L501.5600 #### [facility] [address] [place], [address] WBC (Bld) [#/Vol] 7.6 10*3/uL Normal 4.4-11.0 [facility] Comment on above: Performed By: #### L 3890.6102, L100.0100, L501.1000, L501.5600 #### [facility] [address] [place], [address] Carbon dioxide, total [Moles /volume] in Central venous bloodOrdered By: Rui Vera on 03-20-2025 CO2 [Moles/Vol] 24.8 mmol/L 21.0-32.0 [facility] Chloride assayOrdered By: Matheus Vera on 03-20-2025 Chloride [Moles/Vol] 94 mmol/L Low 98-108 [facility] Erythrocyte distribution wid th ratioOrdered By: Rui Vera on 03-20-2025 Erythrocyte distribution width (RBC) [Ratio] 14.2 % 11.6-14.6 [facility] Erythrocyte distribution wid th standard deviationOrdered By: Rui Vera on 03-20-2025 Erythrocyte distribution width (RBC) [Ratio] 42.6 fl 35.1-43.9 [facility] Glomerular filtration rate ( GFR) estimation/1.73 sq m using serum, plasma, or whole bOrdered By: Rui Vera on 03-20-2025 GFR/1.73 sq M.predicted among non-blacks MDRD (S/P/Bld) [Vol rate/Area] 12 mL/min/{1.73_m2} Low >60 [facility] Comment on above: mL/min/1.73m2 CKD-EP I Creatinine Equation (2020) Hematocrit Auto (Bld) [Volum e fraction]Ordered By: Rui Vera on 03-20-2025 Hematocrit (Bld) [Volume fraction] 34.5 % Low 40-54 [facility] Hemoglobin measurementOrdere d By: Rui Vera on 03-20-2025 Hemoglobin (Bld) [Mass/Vol] 11.3 g/dL Low 13.0-16.5 [facility] MCV (mean corpuscular volume ) determinationOrdered By: Rui Vera on 03-20-2025 MCV (RBC) [Entitic vol] 83.3 fL 80-94 [facility] Mean corpuscular hemoglobin (MCH) determinationOrdered By: Rui Vera on 03-20-2025 MCH (RBC) [Entitic mass] 27.3 pg 27.0-32.0 [facility] Mean corpuscular hemoglobin concentration (MCHC) determinationOrdered By: Rui Vera on 03-20-2025 MCHC (RBC) [Mass/Vol] 32.8 g/dL 32-36 [facility] Mean platelet volume determi nationOrdered By: Rui Vera on 03-20-2025 Platelet mean volume (Bld) [Entitic vol] 9.5 fL 6.2-12.0 [facility] Platelet countOrdered By: Matheus Vera on 03-20-2025 Platelets (Bld) [#/Vol] 165 10*3/uL 150-450 [facility] Potassium measurement (mass/ volume)Ordered By: Rui Vera on 03-20-2025 Potassium (Unsp spec) [Mass/Vol] 4.6 mmol/L 3.3-5.1 [facility] RBC Auto (Bld) [#/Vol]Ordere d By: Rui Vera on 03-20-2025 RBC (Bld) [#/Vol] 4.14 10*6/uL Low 4.6-6.2 [facility] Serum creatinine measurement (mass/volume)Ordered By: Rui Vera on 03-20-2025 Creatinine [Mass/Vol] 4.97 mg/dL High 0.70-1.20 [facility] Serum glucose measurement (m ass/volume)Ordered By: Rui Vera on 03-20-2025 Glucose [Mass/Vol] 173 mg/dL High 70-99 [facility] Serum or plasma calcium shay urement (mass/volume)Ordered By: Rui Vera on 03-20-2025 Calcium [Mass/Vol] 8.9 mg/dL 7.6-11.0 [facility] Serum or plasma urea nitroge n measurement (mass/volume)Ordered By: Rui Vera on 03-20-2025 Urea nitrogen [Mass/Vol] 49 mg/dL High 4-19 [facility] Sodium levelOrdered By: Ruihina Vera on 03-20-2025 Sodium [Moles/Vol] 135 mmol/L 133-145 [facility] White blood cell (WBC) count Ordered By: Rui Vera on 03-20-2025 WBC (Bld) [#/Vol] 7.6 10*3/uL 4.4-11.0 [facility] MR/PATHEATHERon 03-18-2025 MR/PATHEATHER [facility] Medical Records Department [address] [place] [address] PAT - Anesthesia 03/18/25 1836 MR#: [id number] Acct: [id number] Name: VEL NICHOLS Cassidy Rep #: [id number] : 1960 64 From: Jason Mukherjee MD PCP: Dr. 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 When Was Last Pacemaker Check QUESTION #4 FULL TEXT: You/Your Family Experience fever (hyperthermia) with Anesthesia Last Oral Intake Last Oral intake: Last Oral Intake NPO since Meds taken in AM with sips of water? Meds patient instructed to take am of surgery PONV PONV - assistant front end manager: PONV - assistant front end manager Female No 03/18/25 08:43 HX of Motion Sickness No 03/18/25 08:43 HX of N/V After Surgery No 03/18/25 08:43 Non-Smoker Yes 03/18/25 08:43 Duration of Surgery greater Yes 03/18/25 08:43 than 60 minutes Number of Risk Factors 2 03/18/25 08:43 PONV Score Moderate Risk 03/18/25 08:43 Height Weight Height Weight: Anesthesia: Height Weight Height 5 ft 7 in 06/06/23 12:56 Respiratory Assessment Respiratory Assessment - assistant front end manager: Respiratory Tract Infection Hx - assistant front end manager Hx Respiratory Tract Infection No 03/18/25 08:43 STOP Sleep Apnea STOP Sleep Apnea - assistant front end manager: STOP Sleep Apnea - assistant front end manager Hx Hypertension Yes 03/18/25 08:43 Hx Sleep Apnea No 03/18/25 08:43 CPAP No 05/31/23 14:10 BIPAP No 03/05/18 14:57 Do you snore loudly (louder No 03/18/25 08:43 than talking or can be heard Do you often feel tired/ No 03/18/25 08:43 fatigued/ sleepy during daytime? Has anyone observed you stop No 03/18/25 08:43 breathing during sleep? STOP Results Negative 03/18/25 08:43 QUESTION #5 FULL TEXT : Do you snore loudly (louder than talking or can be heard through closed doors)? 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 Specify any problems Hx of Preganancy in last 3 N/A 03/18/25 08:43 Months Nurse Filling Out Transfusion [facility] 03/18/25 08:43 Questions: Date: 03/18/25 03/18/25 08:43 Time: 08:56 03/18/25 08:43 Patient unable to answer at this time (ie. 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 Hx Now Gestational Age (in weeks): EDC: Hx Hx Para Hx Section SAB No 05/17/23 10:18 [facility] Medical History (Updated 03/18/25 @ 08:54 by Antonina Mcmillan) MRSA infection History of renal disease History of renal dialysis Former smoker History of echocardiogram History of heart attack Loss of hearing Wears dentures Depression Alcohol use Insulin dependent diabetes mellitus Arthritis High cholesterol Back pain History of hiatal hernia Dietary restriction Gastric reflux COPD (chronic obstructive pulmonary disease) Smoker History of pain when walking History of edema History of stress test Cardiology follow-up encounter Hypertension NSTEMI (non-ST elevated myocardial infarction) Home Medications ???Medication ???Instructions ???Recorded ???Last Taken ???Type escitalopram oxalate 5 mg tablet 10 mg PO DAILY depression 10/15/16 10/15/16 History (Lexapro) oyeutyou-cmv-kbcpd acid 0.4 1 ea PO DAILY madrigal (more content not included)... Normal [facility] MR/BMSNinfa 03-03-2025 MR/BMS.KOURTNEY [facility] Vascular Surgery [address] [place] [address] OFFICE VISIT Date of Service: 03/03/25 MR#: [id number] Acct: [id number] Name: VEL NICHOLS Rep #: [id number] : 1960 Provider: Dr. Rui Vera MD Age/Sex: 64/M Location: [facility] Status: Signed Intake Vital Signs 06/06/23 12:56 03/03/25 16:33 Height 5 ft 7 in Weight: 205 lb BP 122/68 H Blood Pressure Location Lt brachial Position Sitting Respiration 16 Pulse 86 Pulse Source Monitor Temp 98.2 F Temp Source Temporal Pulse Oximetry (%) 96 Oxygen Delivery Method room air Intake Visit Reasons: Discuss Mapping Is patient in pain?: Yes Allergies bee venom protein (honey bee) (bee sting) Allergy (Verified 03/03/25 16:34) Swelling Medications ???Medication ???Instructions ???Recorded ???Confirmed ???Type escitalopram oxalate 5 mg tablet 10 mg PO DAILY depression 10/15/16 03/03/25 History (Lexapro) vgwodplk-brx-vgzux acid 0.4 1 ea PO DAILY supplement 10/15/16 03/03/25 History mg-lycopene 300 mcg-lutein 250 mcg tablet (Centrum Silver) omeprazole 20 mg capsule,delayed 20 mg PO DAILY gerd 10/15/1603/03 History release insulin aspart U-100 100 unit/mL 30 units subcut BID diabetes 01/1503/03/25 History (3 mL) subcutaneous pen (Novolog FlexPen U-100 Insulin aspart) insulin degludec 100 unit/mL (3 80 unit SQ BID diabetes 01/15/18 0 03/03/25 History mL) subcutaneous pen (Tresiba FlexTouch U-100 insulin) montelukast 10 mg tablet 10 mg PO DAILY@1700 #42 tabs 03/2203/03/25 Rx pravastatin 40 mg tablet 40 mg PO QHS 08/24/18 03/03/25 His tory cholecalciferol (vitamin D3) 25 25 mcg PO DAILY 05/17/23 03/03/25 History mcg (1,000 unit) tablet (Vitamin D3) daptomycin 500 mg intravenous 750 mg IV Q48 40 days #20 ea 06/0503/03/25 Rx solution meropenem 500 mg intravenous 500 mg IV Q12 40 days #80 ea 06/0503/03/25 Rx solution acetaminophen 500 mg tablet 1,000 mg (2 x 500 mg) PO Q8 #180 0 06/06/23 03/03/25 Rx tabs aspirin 81 mg chewable tablet 81 mg PO BID 4 weeks #56 tabs 05/2703/03/25 Rx oxycodone 5 mg tablet 5 - 10 mg (1 - 2 x 5 mg) PO .4-6 0 06/06/23 03/03/25 Rx hours prn PRN Pain Score 4-10 7 days #60 tabs ondansetron HCl 4 mg tablet 4 mg PO Q8H PRN 02/06/25 03/03/25 History furosemide 40 mg tablet (Lasix) 40 mg PO QAM 03/03/25 03/03/25 His tory Have you fallen in the past year?: No PFSH Medical History Loss of hearing Wears dentures Depression Alcohol use Insulin dependent diabetes mellitus Arthritis High cholesterol Back pain History of hiatal hernia Dietary restriction Gastric reflux COPD (chronic obstructive pulmonary disease) Smoker History of pain when walking History of edema History of stress test Cardiology follow-up encounter Hypertension NSTEMI (non-ST elevated myocardial infarction) Surgical History H/O heart artery stent ( 11/06/24) Hx of knee surgery History of arthroplasty of knee Hx of left cataract extraction Hx of knee surgery Hx of knee surgery Hx of total knee arthroplasty Hx of right cataract extraction Hx of foot surgery Hx of arthroscopy Hx laparoscopic cholecystectomy Hx of hernia repair Hx of arthroscopy of right knee Status post coronary artery stent placement Coronary angioplasty status Status post revision of total replacement of right knee Social History Smoking Status: Former smoker how long ago did patient quit smokin years HPI HPI HPI: VEL NICHOLS, is a 64 M who presents to the office today for follow up of dialysis access options. He has had his vein mapping, currently using right IJ catheter without issues. He has had some return of renal function so a trial without sessions was undertaken though he had significant SOB and fluid retention so sessions were resumed. ROS General General: Yes weight change and weakness; No appetite, fatigue, colon cancer or breast cancer HEENT HEENT: No difficulty swallowing, eye injury, eye surgery, swollen glands or hoarseness Endo Endocrine: Yes diabetes mellitus; No thyroid disease, thyroid cancer, Hair loss, heat intolerance or cold intolerance Skin Skin: No rash or changing moles Musc Musculoskeletal: Yes back problems, arthritis and joint pain; No rheumatoid arthritis or gout Cardio Cardiovascular: Yes heart disease, high blood pressure, heart attack, heart stent and shortness of breath with exertion; No murmur, pacemaker, atrial fibrillation, palpitations or chest pain Psych Psychiatric: No depression, anx (more content not included)... Normal [facility] .Auto Diffon 02-20-2025 Basophil, Absolute 0.0 10 3/mcL Normal 0.0-0.3 [facility] Comment on above: Performed By: #### A LORENZO BALTAZAR #### [address] [address] Basophils/100 WBC (Bld) 0.7 % Normal 0.0-2.5 [place] [facility] Comment on above: Performed By: #### A LORENZO BALTAZAR #### [address] [address] Eosinophil, Absolute 0.4 10 3/mcL Normal 0.0-0.7 [facility] Comment on above: Performed By: #### A LORENZO BALTAZAR #### [address] [address] Eosinophils/100 WBC (Bld) 6.9 % High 0.0-6.0 [facility] Comment on above: Performed By: #### A LORENZO BALTAZAR #### [address] [address] Lymphocyte, Absolute 1.7 10 3/mcL Normal 0.9-4.3 [facility] Comment on above: Performed By: #### A LORENZO BALTAZAR #### [address] [address] Lymphocytes/100 WBC (Bld) 26.9 % Normal 20.0-40.0 [facility] Comment on above: Performed By: #### A LORENZO BALTAZAR #### [address] [address] Monocyte, Absolute 0.5 10 3/mcL Normal 0.1-1.4 [facility] Comment on above: Performed By: #### A CEFERINO BALTAZARGEL #### [address] [address] Monocytes/100 WBC (Bld) 7.6 % Normal 2.0-13.0 [facility] Comment on above: Performed By: #### A CEFERINO BALTAZARGEL #### [address] [address] Neutrophils/100 WBC (Bld) 57.9 % Normal 50.0-75.0 [facility] Comment on above: Performed By: #### A CEFERINO BALTAZARGEL #### [address] [address] .GFRon 02-20-2025 Estimated Glomerular Filtration Rate 16 ml/min/1.73sqm Normal [facility] Comment on above: Result Comment: Stages of Chronic Kidney Disease (CKD) Stage Description eGFR(ml/min/1.73 sq.m.) CKD 1 Normal kidney function or >=90 normal kindney function with possible kidney damage (ex. Proteinuria) CKD 2 Kidney damage with mild loss 60-89 of kidney function CKD 3a Mild to moderate loss of kidney 45-59 function CKD 3b Moderate to severe loss of 30-44 of kindey function CKD 4 Severe loss of kidney function 15-29 CKD 5 Kidney failure <15 Note: (go live 2024) the eGFR calculation was updated to the 2020 CKD-EPI creatinine equation without a race factor to calculate the eGFR results. Performed By: #### G FR, MG, CMP #### [address] [address] .NEUABSon 02-20-2025 Neutrophil, Absolute 3.7 10 3/mcL Normal 2.3-8.1 [facility] Comment on above: Performed By: #### A CEFERINO BALTAZARGEL #### [address] [address] BMPon 02-20-2025 BUN/Creatinine Ratio 7.7 ratio Low 10.0-22.0 [facility] Comment on above: Performed By: #### G FR, MG, CMP #### [address] [address] Calcium [Mass/Vol] 9.5 mg/dL Normal 8.7-10.4 [facility] Comment on above: Performed By: #### Yancy FR MG, CMP #### [address] [address] Chloride [Moles/Vol] 101 mmol/L Normal 98-110 [facility] Comment on above: Performed By: #### Yancy FR MG, CMP #### [address] [address] CO2 [Moles/Vol] 28 mmol/L Normal 22-32 [facility] Comment on above: Performed By: #### Yancy FR MG, CMP #### [address] [address] Creatinine [Mass/Vol] 4.01 mg/dL High 0.60-1.40 [facility] Comment on above: Result Comment: Test ing performed on Zannel analyzer using enzymatic creatinine methodology. Performed By: #### Yancy FR MG, CMP #### [address] [address] Electrolyte Balance 9.0 mEq/L Normal 4.0-15.0 [facility] Comment on above: Performed By: #### Yancy FR MG, CMP #### [address] [address] Glucose [Mass/Vol] 138 mg/dL High 82-115 [facility] Comment on above: Performed By: #### Yancy FR MG, CMP #### [address] [address] Potassium [Moles/Vol] 5.0 mmol/L Normal 3.5-5.0 [facility] Comment on above: Performed By: #### Yancy FR MG, CMP #### [address] [address] Sodium [Moles/Vol] 138 mmol/L Normal 136-145 [facility] Comment on above: Performed By: #### Yancy FR MG, CMP #### [address] [address] Urea nitrogen [Mass/Vol] 31.0 mg/dL High 8.0-22.0 [facility] Comment on above: Performed By: #### G FR, MG, CMP #### [place] [address] CBCon 02-20-2025 Erythrocyte distribution width (RBC) [Ratio] 15.1 % Normal 11.5-15.5 [facility] Comment on above: Performed By: #### A LORENZO BALTAZAR #### [place] [address] Hematocrit (Bld) [Volume fraction] 39.1 % Low 40.0-52.0 [facility] Comment on above: Performed By: #### A LORENZO BALTAZAR #### [place] [address] Hgb 12.8 G/dL Low 13.0-17.5 [facility] Comment on above: Performed By: #### A LORENZO BALTAZAR #### [place] [address] MCH (RBC) [Entitic mass] 26.8 pg Low 27.0-33.0 [facility] Comment on above: Performed By: #### A LORENZO BALTAZAR #### [place] [address] MCHC 32.7 G/dL Normal 32.0-36.0 [facility] Comment on above: Performed By: #### A LORENZO BALTAZAR #### [place] [address] MCV (RBC) [Entitic vol] 81.9 fL Normal 81.0-100.0 [facility] Comment on above: Performed By: #### A LORENZO BALTAZAR #### [place] [id number] Platelet 167 10 3/mcL Normal 150-450 [facility] Comment on above: Performed By: #### A LORENZO BALTAZAR #### [place] [address] Platelet mean volume (Bld) [Entitic vol] 7.5 fL Normal 6.4-10.5 [facility] Comment on above: Performed By: #### A BSGEL, ABOGEL #### [facility] [address] [place] [address] RBC 4.78 10 6/mcL Normal 4.50-6.00 [facility] Comment on above: Performed By: #### A BSGEL, ABOGEL #### [facility] [address] [place] [address] WBC 6.4 10 3/mcL Normal 4.5-10.8 [facility] Comment on above: Performed By: #### A BSGEL, ABOGEL #### [facility] [address] [place] [id number] LABORATORYOrdered By: Shelby Jernigan on 02-20-2025 Blood Glucose Testing Reason Routine (02/20/25 12:22 PM) [facility] Work Phone: Glucose [Mass/Vol] 226 mg/dL High 82 - 115 mg/dL [facility] Work Phone: Blood Glucose Testing Reason Routine (02/20/25 8:31 AM) [facility] Work Phone: Glucose [Mass/Vol] 133 mg/dL High 82 - 115 mg/dL [facility] Work Phone: LABORATORYOrdered By: SYSTEM SYSTEM on 02-20-2025 Basophils (Bld) [#/Vol] 0.0 103/mcL Normal 0.0 - 0.3 10^3/mcL [facility] Workflow SS Basophils/100 WBC (Bld) 0.7 % Normal 0.0 - 2.5 % AH Workflow SS Calcium [Mass/Vol] 9.5 mg/dL Normal 8.7 - 10. 4 mg/dL ADM SS Chloride [Moles/Vol] 101 mmol/L Normal 98 - 11 0 mEq/L AH ADM SS CO2 [Moles/Vol] 28 mmol/L Normal 22 - 32 mEq/L AH ADM SS Creatinine [Mass/Vol] 4.01 mg/dL High 0.60 - 1.40 mg/dL AH ADM SS Comment on above: Interpretive Data: T esting performed on Zannel analyzer using enzymatic creatinine methodology. Electrolyte Balance 9.0 mEq/L Normal 4.0 - 15 .0 mEq/L ADM SS Eosinophils (Bld) [#/Vol] 0.4 103/mcL Normal 0.0 - 0.7 10^3/mcL [facility] Workflow SS Eosinophils/100 WBC (Bld) 6.9 % High 0.0 - 6.0 % AH Workflow SS Erythrocyte distribution width (RBC) [Ratio] 15.1 % Normal 11.5 - 15.5 % AH Workflow SS Estimated Glomerular Filtration Rate 16 ml/min/1.73sqm Invalid Interpretation Code Chemistry S Comment on above: Interpretive Data: Stages of Chronic Kidney Disease (CKD) Stage Description eGFR(ml/min/1.73 sq.m.) CKD 1 Normal kidney function or >=90 normal kindney function with possible kidney damage (ex. Proteinuria) CKD 2 Kidney damage with mild loss 60-89 of kidney function CKD 3a Mild to moderate loss of kidney 45-59 function CKD 3b Moderate to severe loss of 30-44 of kindey function CKD 4 Severe loss of kidney function 15-29 CKD 5 Kidney failure <15 Note: (go live 2024) the eGFR calculation was updated to the 2020 CKD-EPI creatinine equation without a race factor to calculate the eGFR results. Glucose [Mass/Vol] 138 mg/dL High 82 - 115 mg/dL ADM SS Hematocrit (Bld) [Volume fraction] 39.1 % Low 40.0 - 52.0 % AH Workflow SS Hemoglobin (Bld) [Mass/Vol] 12.8 G/dL Low 13.0 - 17.5 G/dL AH Workflow SS Lymphocytes (Bld) [#/Vol] 1.7 103/mcL Normal 0.9 - 4.3 10^3/mcL [facility] Workflow SS Lymphocytes/100 WBC (Bld) 26.9 % Normal 20.0 - 40.0 % AH Workflow SS MCH (RBC) [Entitic mass] 26.8 pg Low 27.0 - 33.0 pg AH Workflow SS MCHC 32.7 G/dL Normal 32.0 - 36.0 G/dL AH Workflow SS MCV (RBC) [Entitic vol] 81.9 fL Normal 81.0 - 100.0 fL AH Workflow SS Monocytes (Bld) [#/Vol] 0.5 103/mcL Normal 0.1 - 1.4 10^3/mcL [facility] Workflow SS Monocytes/100 WBC (Bld) 7.6 % Normal 2.0 - 13.0 % Workflow SS Neutrophils (Bld) [#/Vol] 3.7 103/mcL Normal 2.3 - 8.1 10^3/mcL Workflow SS Neutrophils/100 WBC (Bld) 57.9 % Normal 50.0 - 75.0 % Workflow SS Platelet mean volume (Bld) [Entitic vol] 7.5 fL Normal 6.4 - 10.5 fL Workflow SS Platelets (Bld) [#/Vol] 167 103/mcL Normal 150 - 450 10^3/mcL AH Workflow SS Potassium [Moles/Vol] 5.0 mmol/L Normal 3.5 - 5.0 mEq/L ADM SS RBC (Bld) [#/Vol] 4.78 106/mcL Normal 4.50 - 6.0 0 10^6/mcL Workflow SS Sodium [Moles/Vol] 138 mmol/L Normal 136 - 145 mEq/L ADM SS Urea nitrogen [Mass/Vol] 31.0 mg/dL High 8.0 - 22.0 mg/dL ADM SS Urea nitrogen/Creatinine [Mass ratio] 7.7 ratio Low 10.0 - 22.0 ratio ADM SS WBC (Bld) [#/Vol] 6.4 103/mcL Normal 4.5 - 10.8 10^3/mcL Workflow SS LABORATORYOrdered By: Iman Crowley on 02-20-2025 Glucose [Mass/Vol] 121 mg/dL High 82 - 115 mg/dL [facility] Work Phone: LABORATORYOrdered By: Nikkie Nunez on 02-20-2025 Blood Glucose Interventions Administered food/juice (02/20/25 3:55 AM) [facility] Work Phone: .GFRon 02-19-2025 Estimated Glomerular Filtration Rate 15 ml/min/1.73sqm Normal [facility] Comment on above: Result Comment: Stages of Chronic Kidney Disease (CKD) Stage Description eGFR(ml/min/1.73 sq.m.) CKD 1 Normal kidney function or >=90 normal kindney function with possible kidney damage (ex. Proteinuria) CKD 2 Kidney damage with mild loss 60-89 of kidney function CKD 3a Mild to moderate loss of kidney 45-59 function CKD 3b Moderate to severe loss of 30-44 of kindey function CKD 4 Severe loss of kidney function 15-29 CKD 5 Kidney failure <15 Note: (go live 2024) the eGFR calculation was updated to the 2020 CKD-EPI creatinine equation without a race factor to calculate the eGFR results. Performed By: #### A PTT #### [facility] [address] [place] [address] HBSAGon 02-19-2025 Hep B Surf Ag Non-Reactive Normal Non-Reactive [facility] Comment on above: Performed By: #### H BSAG ####[facility] [place] [id number] LABORATORYOrdered By: Pam Valdes on 02-19-2025 HBV surface Ag IA Ql Non-Reactive (02/19/25 4:46 PM) Normal Non-Reactive AH ADM SS LABORATORYOrdered By: Juan Edmonds on 02-19-2025 Blood Glucose Testing Reason Routine (02/19/25 4:17 PM) [facility] Work Phone: LABORATORYOrdered By: SYSTEM SYSTEM on 02-19-2025 Albumin BCP dye [Mass/Vol] 3.7 G/dL Normal 3.2 - 4.8 G/dL AH ADM SS Calcium [Mass/Vol] 9.5 mg/dL Normal 8.7 - 10. 4 mg/dL AH ADM SS Chloride [Moles/Vol] 106 mmol/L Normal 98 - 11 0 mEq/L AH ADM SS CO2 [Moles/Vol] 27 mmol/L Normal 22 - 32 mEq/L ADM SS Creatinine [Mass/Vol] 4.28 mg/dL High 0.60 - 1.40 mg/dL AH ADM SS Comment on above: Interpretive Data: T esting performed on Zannel analyzer using enzymatic creatinine methodology. Electrolyte Balance 7.0 mEq/L Normal 4.0 - 15 .0 mEq/L AH ADM SS Estimated Glomerular Filtration Rate 15 ml/min/1.73sqm Invalid Interpretation Code Chemistry S Comment on above: Interpretive Data: Stages of Chronic Kidney Disease (CKD) Stage Description eGFR(ml/min/1.73 sq.m.) CKD 1 Normal kidney function or >=90 normal kindney function with possible kidney damage (ex. Proteinuria) CKD 2 Kidney damage with mild loss 60-89 of kidney function CKD 3a Mild to moderate loss of kidney 45-59 function CKD 3b Moderate to severe loss of 30-44 of kindey function CKD 4 Severe loss of kidney function 15-29 CKD 5 Kidney failure <15 Note: (go live 2024) the eGFR calculation was updated to the 2020 CKD-EPI creatinine equation without a race factor to calculate the eGFR results. Glucose [Mass/Vol] 110 mg/dL Normal 82 - 115 mg/dL ADM SS Phosphate [Mass/Vol] 4.8 mg/dL Normal 2.4 - 5 .1 mg/dL AH ADM SS Comment on above: Interpretive Data: * *Note - New Reference Range in effect 20 Potassium [Moles/Vol] 4.8 mmol/L Normal 3.5 - 5.0 mEq/L ADM SS Sodium [Moles/Vol] 140 mmol/L Normal 136 - 145 mEq/L ADM SS Urea nitrogen [Mass/Vol] 35.0 mg/dL High 8.0 - 22.0 mg/dL ADM SS Urea nitrogen/Creatinine [Mass ratio] 8.2 ratio Low 10.0 - 22.0 ratio ADM SS RFPon 02-19-2025 Albumin Level 3.7 G/dL Normal 3.2-4.8 [facility] Comment on above: Performed By: #### A PTT #### [address] [address] BUN/Creatinine Ratio 8.2 ratio Low 10.0-22.0 [facility] Comment on above: Performed By: #### A PTT #### [address] [address] Calcium [Mass/Vol] 9.5 mg/dL Normal 8.7-10.4 [facility] Comment on above: Performed By: #### A PTT #### [address] [address] Chloride [Moles/Vol] 106 mmol/L Normal 98-110 [facility] Comment on above: Performed By: #### A PTT #### [address] [address] CO2 [Moles/Vol] 27 mmol/L Normal 22-32 [facility] Comment on above: Performed By: #### A PTT #### [address] [address] Creatinine [Mass/Vol] 4.28 mg/dL High 0.60-1.40 [facility] Comment on above: Result Comment: Test ing performed on Zannel analyzer using enzymatic creatinine methodology. Performed By: #### A PTT #### [address] [address] Electrolyte Balance 7.0 mEq/L Normal 4.0-15.0 [facility] Comment on above: Performed By: #### A PTT #### [address] [address] Glucose [Mass/Vol] 110 mg/dL Normal 82-115 [facility] Comment on above: Performed By: #### A PTT #### [address] [address] Phosphate [Mass/Vol] 4.8 mg/dL Normal 2.4-5.1 [facility] Comment on above: Result Comment: No te - New Reference Range in effect 20 Performed By: #### A PTT #### [address] [address] Potassium [Moles/Vol] 4.8 mmol/L Normal 3.5-5.0 [facility] Comment on above: Performed By: #### A PTT #### [address] [address] Sodium [Moles/Vol] 140 mmol/L Normal 136-145 [facility] Comment on above: Performed By: #### A PTT #### [address] [address] Urea nitrogen [Mass/Vol] 35.0 mg/dL High 8.0-22.0 [facility] Comment on above: Performed By: #### A PTT #### [address] [address] .Auto Diffon 02-18-2025 Basophil, Absolute 0.0 10 3/mcL Normal 0.0-0.3 [facility] Comment on above: Performed By: #### A BSÁNGELA ABOGEL #### [address] [address] Basophils/100 WBC (Bld) 0.5 % Normal 0.0-2.5 [place] [facility] Comment on above: Performed By: #### A BSÁNGELA ABOGEL #### [address] [address] Eosinophil, Absolute 0.3 10 3/mcL Normal 0.0-0.7 [facility] Comment on above: Performed By: #### A BSÁNGELA ABOGEL #### [address] [address] Eosinophils/100 WBC (Bld) 4.3 % Normal 0.0-6.0 [facility] Comment on above: Performed By: #### A BSÁNGELA ABOGEL #### [address] [address] Lymphocyte, Absolute 1.4 10 3/mcL Normal 0.9-4.3 [facility] Comment on above: Performed By: #### A BSÁNGELA ABOGEL #### [address] [address] Lymphocytes/100 WBC (Bld) 19.3 % Low 20.0-40.0 [facility] Comment on above: Performed By: #### A BSÁNGELA ABOGEL #### [address] [address] Monocyte, Absolute 0.5 10 3/mcL Normal 0.1-1.4 [facility] Comment on above: Performed By: #### A BSÁNGELA ABOGEL #### [address] [address] Monocytes/100 WBC (Bld) 6.9 % Normal 2.0-13.0 [facility] Comment on above: Performed By: #### A BSÁNGELA ABOGEL #### [address] [address] Neutrophils/100 WBC (Bld) 69.0 % Normal 50.0-75.0 [facility] Comment on above: Performed By: #### A BSÁNGELA ABOGEL #### [address] [address] .GFRon 02-18-2025 Estimated Glomerular Filtration Rate 10 ml/min/1.73sqm Normal [facility] Comment on above: Result Comment: Stages of Chronic Kidney Disease (CKD) Stage Description eGFR(ml/min/1.73 sq.m.) CKD 1 Normal kidney function or >=90 normal kindney function with possible kidney damage (ex. Proteinuria) CKD 2 Kidney damage with mild loss 60-89 of kidney function CKD 3a Mild to moderate loss of kidney 45-59 function CKD 3b Moderate to severe loss of 30-44 of kindey function CKD 4 Severe loss of kidney function 15-29 CKD 5 Kidney failure <15 Note: (go live 2024) the eGFR calculation was updated to the 2020 CKD-EPI creatinine equation without a race factor to calculate the eGFR results. Performed By: #### A LORENZO BALTAZAR #### [address] [address] .NEUABSon 02-18-2025 Neutrophil, Absolute 5.1 10 3/mcL Normal 2.3-8.1 [facility] Comment on above: Performed By: #### A LORENZO BALTAZAR #### [place] [id number] BMPon 02-18-2025 BUN/Creatinine Ratio 9.8 ratio Low 10.0-22.0 [facility] Comment on above: Performed By: #### A LORENZO BALTAZAR #### [address] [address] Calcium [Mass/Vol] 9.0 mg/dL Normal 8.7-10.4 [facility] Comment on above: Performed By: #### A LORENZO BALTAZAR #### [address] [address] Chloride [Moles/Vol] 110 mmol/L Normal 98-110 [facility] Comment on above: Performed By: #### A LORENZO BALTAZAR #### [address] [address] CO2 [Moles/Vol] 28 mmol/L Normal 22-32 [facility] Comment on above: Performed By: #### A CEFERINO BALTAZARGEL #### [address] [address] Creatinine [Mass/Vol] 5.69 mg/dL High 0.60-1.40 [facility] Comment on above: Result Comment: Test ing performed on Zannel analyzer using enzymatic creatinine methodology. Performed By: #### A DELANEY ABOGEL #### [address] [address] Electrolyte Balance 6.0 mEq/L Normal 4.0-15.0 [facility] Comment on above: Performed By: #### A CEFERINO BALTAZARGEL #### [address] [address] Glucose [Mass/Vol] 85 mg/dL Normal 82-115 [facility] Comment on above: Performed By: #### A CEFERINO BALTAZARGEL #### [place] [id number] Potassium [Moles/Vol] 4.2 mmol/L Normal 3.5-5.0 [facility] Comment on above: Performed By: #### A DELANEY ABOGEL #### [address] [address] Sodium [Moles/Vol] 144 mmol/L Normal 136-145 [facility] Comment on above: Performed By: #### A DELANEY ABOGEL #### [address] [address] Urea nitrogen [Mass/Vol] 56.0 mg/dL High 8.0-22.0 [facility] Comment on above: Performed By: #### A BSÁNGELA ABOGEL #### [address] [address] CBCon 02-18-2025 Erythrocyte distribution width (RBC) [Ratio] 15.5 % Normal 11.5-15.5 [facility] Comment on above: Performed By: #### A BSÁNGELA ABOGEL #### [address] [address] Hematocrit (Bld) [Volume fraction] 34.6 % Low 40.0-52.0 [facility] Comment on above: Performed By: #### A LORENZO BALTAZAR #### [address] [address] Hgb 11.5 G/dL Low 13.0-17.5 [facility] Comment on above: Performed By: #### A LORENZO BALTAZAR #### [address] [address] MCH (RBC) [Entitic mass] 27.2 pg Normal 27.0-33.0 [facility] Comment on above: Performed By: #### A LORENZO BALTAZAR #### [place] [address] MCHC 33.1 G/dL Normal 32.0-36.0 [facility] Comment on above: Performed By: #### A LORENZO BALTAZAR #### [place] [address] MCV (RBC) [Entitic vol] 82.3 fL Normal 81.0-100.0 [place] [facility] Comment on above: Performed By: #### A LORENZO BALTAZAR #### [place] [address] Platelet 150 10 3/mcL Normal 150-450 [facility] Comment on above: Performed By: #### A LORENZO BALTAZAR #### [place] [address] Platelet mean volume (Bld) [Entitic vol] 7.2 fL Normal 6.4-10.5 [facility] Comment on above: Performed By: #### A LORENZO BALTAZAR #### [place] [id number] RBC 4.21 10 6/mcL Low 4.50-6.00 [facility] Comment on above: Performed By: #### A LORENZO BALTAZAR #### [place] [id number] WBC 7.4 10 3/mcL Normal 4.5-10.8 [facility] Comment on above: Performed By: #### A LORENZO BALTAZAR #### [place] [id number] HBSAGon 02-18-2025 Hep B Surf Ag Non-Reactive Normal Non-Reactive [facility] Comment on above: Performed By: #### G FR, MG, CMP #### [address] [address] LABORATORYOrdered By: Violeta Hong on 02-18-2025 HBV surface Ag IA Ql Non-Reactive (02/18/25 2:36 PM) Normal Non-Reactive AH ADM SS LABORATORYOrdered By: Peri Knight on 02-18-2025 Blood Glucose Interventions Administered food/juice (02/18/25 8:50 AM) [facility] Work Phone: LABORATORYOrdered By: SYSTEM SYSTEM on 02-18-2025 Basophils (Bld) [#/Vol] 0.0 103/mcL Normal 0.0 - 0.3 10^3/mcL AH Workflow SS Basophils/100 WBC (Bld) 0.5 % Normal 0.0 - 2.5 % AH Workflow SS Calcium [Mass/Vol] 9.0 mg/dL Normal 8.7 - 10. 4 mg/dL AH ADM SS Chloride [Moles/Vol] 110 mmol/L Normal 98 - 11 0 mEq/L AH ADM SS CO2 [Moles/Vol] 28 mmol/L Normal 22 - 32 mEq/L AH ADM SS Creatinine [Mass/Vol] 5.69 mg/dL High 0.60 - 1.40 mg/dL AH ADM SS Comment on above: Interpretive Data: T esting performed on Zannel analyzer using enzymatic creatinine methodology. Electrolyte Balance 6.0 mEq/L Normal 4.0 - 15 .0 mEq/L AH ADM SS Eosinophils (Bld) [#/Vol] 0.3 103/mcL Normal 0.0 - 0.7 10^3/mcL AH Workflow SS Eosinophils/100 WBC (Bld) 4.3 % Normal 0.0 - 6.0 % AH Workflow SS Erythrocyte distribution width (RBC) [Ratio] 15.5 % Normal 11.5 - 15.5 % AH Workflow SS Estimated Glomerular Filtration Rate 10 ml/min/1.73sqm Invalid Interpretation Code AH ADM SS Comment on above: Interpretive Data: Stages of Chronic Kidney Disease (CKD) Stage Description eGFR(ml/min/1.73 sq.m.) CKD 1 Normal kidney function or >=90 normal kindney function with possible kidney damage (ex. Proteinuria) CKD 2 Kidney damage with mild loss 60-89 of kidney function CKD 3a Mild to moderate loss of kidney 45-59 function CKD 3b Moderate to severe loss of 30-44 of kindey function CKD 4 Severe loss of kidney function 15-29 CKD 5 Kidney failure <15 Note: (go live 2024) the eGFR calculation was updated to the 2020 CKD-EPI creatinine equation without a race factor to calculate the eGFR results. Glucose [Mass/Vol] 85 mg/dL Normal 82 - 115 mg/dL AH ADM SS Hematocrit (Bld) [Volume fraction] 34.6 % Low 40.0 - 52.0 % AH Workflow SS Hemoglobin (Bld) [Mass/Vol] 11.5 G/dL Low 13.0 - 17.5 G/dL AH Workflow SS Lymphocytes (Bld) [#/Vol] 1.4 103/mcL Normal 0.9 - 4.3 10^3/mcL AH Workflow SS Lymphocytes/100 WBC (Bld) 19.3 % Low 20.0 - 40.0 % AH Workflow SS Magnesium [Mass/Vol] 2.5 mg/dL High 1.6 - 2 .4 mg/dL AH ADM SS MCH (RBC) [Entitic mass] 27.2 pg Normal 27.0 - 33.0 pg AH Workflow SS MCHC 33.1 G/dL Normal 32.0 - 36.0 G/dL AH Workflow SS MCV (RBC) [Entitic vol] 82.3 fL Normal 81.0 - 100.0 fL AH Workflow SS Monocytes (Bld) [#/Vol] 0.5 103/mcL Normal 0.1 - 1.4 10^3/mcL AH Workflow SS Monocytes/100 WBC (Bld) 6.9 % Normal 2.0 - 13.0 % AH Workflow SS Neutrophils (Bld) [#/Vol] 5.1 103/mcL Normal 2.3 - 8.1 10^3/mcL AH Workflow SS Neutrophils/100 WBC (Bld) 69.0 % Normal 50.0 - 75.0 % AH Workflow SS Platelet mean volume (Bld) [Entitic vol] 7.2 fL Normal 6.4 - 10.5 fL AH Workflow SS Platelets (Bld) [#/Vol] 150 103/mcL Normal 150 - 450 10^3/mcL Workflow SS Potassium [Moles/Vol] 4.2 mmol/L Normal 3.5 - 5.0 mEq/L ADM SS RBC (Bld) [#/Vol] 4.21 106/mcL Low 4.50 - 6.0 0 10^6/mcL Workflow SS Sodium [Moles/Vol] 144 mmol/L Normal 136 - 145 mEq/L ADM SS Troponin I.cardiac DL <= 0.01 ng/mL [Mass/Vol] 174 ng/L High 0 - 54 ng/L ADM SS Comment on above: Interpretive Data: High Sensitive Troponin I Reference Ranges: Female: 0-34 ng/L Male: 0-54 ng/L Testing performed on [employer] IM analyzer using direct chemiluminescent technology. Urea nitrogen [Mass/Vol] 56.0 mg/dL High 8.0 - 22.0 mg/dL ADM SS Urea nitrogen/Creatinine [Mass ratio] 9.8 ratio Low 10.0 - 22.0 ratio ADM SS WBC (Bld) [#/Vol] 7.4 103/mcL Normal 4.5 - 10.8 10^3/mcL Workflow SS Troponin I.cardiac DL <= 0.01 ng/mL [Mass/Vol] 180 ng/L High 0 - 54 ng/L ADM Comment on above: Result Comment: read back by zahra lopez rn Interpretive Data: High Sensitive Troponin I Reference Ranges: Female: 0-34 ng/L Male: 0-54 ng/L Testing performed on [employer] IM analyzer using direct chemiluminescent technology. MGon 02-18-2025 Magnesium [Mass/Vol] 2.5 mg/dL High 1.6-2.4 [facility] Comment on above: Performed By: #### R BCP #### [address] [address] TROPHSon 02-18-2025 High Sensitivity Troponin I 174 ng/L High 0-54 [facility] Comment on above: Result Comment: High Sensitive Troponin I Reference Ranges: Female: 0-34 ng/L Male: 0-54 ng/L Testing performed on [employer] IM analyzer using direct chemiluminescent technology. Performed By: #### A LORENZO BALTAZAR #### [facility] [address] [place], [place] [address] High Sensitivity Troponin I 180 ng/L High 0-54 [facility] Comment on above: Result Comment: High Sensitive Troponin I Reference Ranges: Female: 0-34 ng/L Male: 0-54 ng/L Testing performed on [employer] analyzer using direct chemiluminescent technology. Performed By: #### A PTT #### [address] [address] .Auto Diffon 02-17-2025 Basophil, Absolute 0.0 10 3/mcL Normal 0.0-0.3 [facility] Comment on above: Performed By: #### C MP, CBC, PBNP, ANEU, MDW, TROPHS, GFR, ADIFF ####[address] [address] Basophils/100 WBC (Bld) 0.6 % Normal 0.0-2.5 [place] [facility] Comment on above: Performed By: #### C MP, CBC, PBNP, ANEU, MDW, TROPHS, GFR, ADIFF ####[address] [address] Eosinophil, Absolute 0.4 10 3/mcL Normal 0.0-0.7 [facility] Comment on above: Performed By: #### C MP, CBC, PBNP, ANEU, MDW, TROPHS, GFR, ADIFF ####[address] [address] Eosinophils/100 WBC (Bld) 5.6 % Normal 0.0-6.0 [facility] Comment on above: Performed By: #### C MP, CBC, PBNP, ANEU, MDW, TROPHS, GFR, ADIFF ####[address] [address] Lymphocyte, Absolute 1.5 10 3/mcL Normal 0.9-4.3 [facility] Comment on above: Performed By: #### C MP, CBC, PBNP, ANEU, MDW, TROPHS, GFR, ADIFF ####[address] [address] Lymphocytes/100 WBC (Bld) 20.9 % Normal 20.0-40.0 [facility] Comment on above: Performed By: #### C MP, CBC, PBNP, ANEU, MDW, TROPHS, GFR, ADIFF ####[address] [address] Monocyte, Absolute 0.5 10 3/mcL Normal 0.1-1.4 [facility] Comment on above: Performed By: #### C MP, CBC, PBNP, ANEU, MDW, TROPHS, GFR, ADIFF ####[address] [address] Monocytes/100 WBC (Bld) 6.8 % Normal 2.0-13.0 [place] [facility] Comment on above: Performed By: #### C MP, CBC, PBNP, ANEU, MDW, TROPHS, GFR, ADIFF ####[address] [address] Neutrophils/100 WBC (Bld) 66.1 % Normal 50.0-75.0 [facility] Comment on above: Performed By: #### C MP, CBC, PBNP, ANEU, MDW, TROPHS, GFR, ADIFF ####[address] [address] .GFRon 02-17-2025 Estimated Glomerular Filtration Rate 10 ml/min/1.73sqm Normal [facility] Comment on above: Result Comment: Stages of Chronic Kidney Disease (CKD) Stage Description eGFR(ml/min/1.73 sq.m.) CKD 1 Normal kidney function or >=90 normal kindney function with possible kidney damage (ex. Proteinuria) CKD 2 Kidney damage with mild loss 60-89 of kidney function CKD 3a Mild to moderate loss of kidney 45-59 function CKD 3b Moderate to severe loss of 30-44 of kindey function CKD 4 Severe loss of kidney function 15-29 CKD 5 Kidney failure <15 Note: (go live 2024) the eGFR calculation was updated to the 2020 CKD-EPI creatinine equation without a race factor to calculate the eGFR results. Performed By: #### C MP, CBC, PBNP, ANEU, MDW, TROPHS, GFR, ADIFF ####[address] [address] .MDWon 02-17-2025 Monocyte Distribution Width 16.99 Normal 0.00-20.00 [facility] Comment on above: Result Comment: For ED adult patients suspected of sepsis, MDW<=20.0 does not rule out sepsis or risk of sepsis Performed By: #### C MP, CBC, PBNP, ANEU, MDW, TROPHS, GFR, ADIFF ####[place] [address] .NEUABSon 02-17-2025 Neutrophil, Absolute 4.8 10 3/mcL Normal 2.3-8.1 [facility] Comment on above: Performed By: #### C MP, CBC, PBNP, ANEU, MDW, TROPHS, GFR, ADIFF ####[place] [address] CBCon 02-17-2025 Erythrocyte distribution width (RBC) [Ratio] 15.1 % Normal 11.5-15.5 [facility] Comment on above: Performed By: #### C MP, CBC, PBNP, ANEU, MDW, TROPHS, GFR, ADIFF ####[place] [address] Hematocrit (Bld) [Volume fraction] 35.6 % Low 40.0-52.0 [facility] Comment on above: Performed By: #### C MP, CBC, PBNP, ANEU, MDW, TROPHS, GFR, ADIFF ####[place] [address] Hgb 11.9 G/dL Low 13.0-17.5 [facility] Comment on above: Performed By: #### C MP, CBC, PBNP, ANEU, MDW, TROPHS, GFR, ADIFF ####[place] [address] MCH (RBC) [Entitic mass] 27.2 pg Normal 27.0-33.0 [facility] Comment on above: Performed By: #### C MP, CBC, PBNP, ANEU, MDW, TROPHS, GFR, ADIFF ####[place] [address] MCHC 33.4 G/dL Normal 32.0-36.0 [facility] Comment on above: Performed By: #### C MP, CBC, PBNP, ANEU, MDW, TROPHS, GFR, ADIFF ####[place] [address] MCV (RBC) [Entitic vol] 81.4 fL Normal 81.0-100.0 [place] [facility] Comment on above: Performed By: #### C MP, CBC, PBNP, ANEU, MDW, TROPHS, GFR, ADIFF ####[place] [address] Platelet 160 10 3/mcL Normal 150-450 [facility] Comment on above: Performed By: #### C MP, CBC, PBNP, ANEU, MDW, TROPHS, GFR, ADIFF ####[place] [address] Platelet mean volume (Bld) [Entitic vol] 7.4 fL Normal 6.4-10.5 [facility] Comment on above: Performed By: #### C MP, CBC, PBNP, ANEU, MDW, TROPHS, GFR, ADIFF ####[place] [address] RBC 4.37 10 6/mcL Low 4.50-6.00 [facility] Comment on above: Performed By: #### C MP, CBC, PBNP, ANEU, MDW, TROPHS, GFR, ADIFF ####[place] [address] WBC 7.2 10 3/mcL Normal 4.5-10.8 [facility] Comment on above: Performed By: #### C MP, CBC, PBNP, ANEU, MDW, TROPHS, GFR, ADIFF ####[place] [address] CMPon 02-17-2025 Albumin Level 3.6 G/dL Normal 3.2-4.8 [facility] Comment on above: Performed By: #### C MP, CBC, PBNP, ANEU, MDW, TROPHS, GFR, ADIFF ####[place] [address] Albumin/Globulin [Mass ratio] 1.1 {ratio} Normal 0.9-1.6 [facility] Comment on above: Performed By: #### C MP, CBC, PBNP, ANEU, MDW, TROPHS, GFR, ADIFF ####[place] [address] ALP [Catalytic activity/Vol] 71 U/L Normal 38-126 [facility] Comment on above: Performed By: #### C MP, CBC, PBNP, ANEU, MDW, TROPHS, GFR, ADIFF ####[place] [id number] ALT [Catalytic activity/Vol] 15 U/L Normal 12-55 [facility] Comment on above: Performed By: #### C MP, CBC, PBNP, ANEU, MDW, TROPHS, GFR, ADIFF ####[place] [phone] AST [Catalytic activity/Vol] 21 U/L Normal 8-34 [facility] Comment on above: Performed By: #### C MP, CBC, PBNP, ANEU, MDW, TROPHS, GFR, ADIFF ####[place] [phone] Bili Total 0.20 mg/dL Normal 0.20-1.20 [facility] Comment on above: Result Comment: Use of this assay is not recommended for patients undergoing treatment with eltrombopag due to the potential for falsely elevated results. Performed By: #### C MP, CBC, PBNP, ANEU, MDW, TROPHS, GFR, ADIFF ####[place] [id number] BUN/Creatinine Ratio 10.2 ratio Normal 10.0-22.0 [facility] Comment on above: Performed By: #### C MP, CBC, PBNP, ANEU, MDW, TROPHS, GFR, ADIFF ####[place] [phone] Calcium [Mass/Vol] 9.0 mg/dL Normal 8.7-10.4 [facility] Comment on above: Performed By: #### C MP, CBC, PBNP, ANEU, MDW, TROPHS, GFR, ADIFF ####[address] [address] Chloride [Moles/Vol] 107 mmol/L Normal 98-110 [facility] Comment on above: Performed By: #### C MP, CBC, PBNP, ANEU, MDW, TROPHS, GFR, ADIFF ####[address] [address] CO2 [Moles/Vol] 27 mmol/L Normal 22-32 [facility] Comment on above: Performed By: #### C MP, CBC, PBNP, ANEU, MDW, TROPHS, GFR, ADIFF ####[address] [address] Creatinine [Mass/Vol] 5.70 mg/dL High 0.60-1.40 [facility] Comment on above: Result Comment: Test ing performed on [employer]annel analyzer using enzymatic creatinine methodology. Performed By: #### C MP, CBC, PBNP, ANEU, MDW, TROPHS, GFR, ADIFF ####[address] [address] Electrolyte Balance 8.0 mEq/L Normal 4.0-15.0 [facility] Comment on above: Performed By: #### C MP, CBC, PBNP, ANEU, MDW, TROPHS, GFR, ADIFF ####[address] [address] Globulin 3.2 G/dL Normal 1.5-3.8 [facility] Comment on above: Performed By: #### C MP, CBC, PBNP, ANEU, MDW, TROPHS, GFR, ADIFF ####[address] [address] Glucose [Mass/Vol] 170 mg/dL High 82-115 [facility] Comment on above: Performed By: #### C MP, CBC, PBNP, ANEU, MDW, TROPHS, GFR, ADIFF ####[address] [address] Potassium [Moles/Vol] 4.4 mmol/L Normal 3.5-5.0 [facility] Comment on above: Performed By: #### C MP, CBC, PBNP, ANEU, MDW, TROPHS, GFR, ADIFF ####[facility] [place] [address] Sodium [Moles/Vol] 142 mmol/L Normal 136-145 [facility] Comment on above: Performed By: #### C MP, CBC, PBNP, ANEU, MDW, TROPHS, GFR, ADIFF ####[facility] [place] [address] Total Protein 6.8 G/dL Normal 5.7-8.2 [facility] Comment on above: Performed By: #### C MP, CBC, PBNP, ANEU, MDW, TROPHS, GFR, ADIFF ####[facility] [place] [address] Urea nitrogen [Mass/Vol] 58.0 mg/dL High 8.0-22.0 [facility] Comment on above: Performed By: #### C MP, CBC, PBNP, ANEU, MDW, TROPHS, GFR, ADIFF ####[place] [id number] [address] [place] [address] Dialysis Vein Map PRE-OP SAHNA ATon 02-17-2025 Dialysis Vein Map PRE-OP BILAT [facility] [address] [place] [address] Dialysis Vein Map PRE-OP BILAT 02/17/25 0935 MR#: [id number] Acct: [id number] Name: VEL NICHOLS Rep #: [id number] : 1960 64 From: Rui Vera MD Attending Dr: TARUN Horowitz Status: REG CLI Ordering Dr: Marleny William Date: 02/17/25 Location: [facility] Sex: M C Admitted: Reason For Study Reason For Study: Pre op Right Arm Left Arm Cephalic Vein at distal forearm measures 0.23 x 0.22 Cephalic Vein at distal forearm measures 0.12 x 0.14 cm. cm. Cephalic Vein at mid forearm measures 0.25 x 0.24 cm. Cephalic Vein at mid forearm measures 0.12 x 0.12 cm. Cephalic Vein proximal forearm measures 0.22 x 0.25 Cephalic Vein proximal forearm measures 0.15 x 0.15 cm. cm. Cephalic Vein distal upper arm measures 0.43 x 0.42 Cephalic Vein distal upper arm measures 0.36 x 0.36 cm. cm. Cephalic Vein at mid upper arm measures 0.36 x 0.38 Cephalic Vein at mid upper arm measures 0.36 x 0.33 cm. cm. Cephalic Vein at proximal upper arm measures 0.41 x Cephalic Vein at proximal upper arm measures 0.32 x 0.42 cm. 0.32 cm. Proximal Basilic vein measures 0.44 x 0.42 cm. Proximal Basilic vein measures 0.58 x 0.52 cm. Mid Basilic vein measures 0.35 x 0.35 cm. Mid Basilic vein measures 0.49 x 0.49 cm. Distal Basilic vein measures 0.37 x 0.39 cm. Distal Basilic vein measures 0.43 x 0.47 cm. Brachial artery measures 0.43 x 0.44 cm with a Brachial artery measures 0.46 x 0.46 cm with a velocity of 138.1 cm/sec. velocity of 122.7 cm/sec. Radial artery measures 0.20 x 0.21 cm with a velocity Radial artery measures 0.21 x 0.22 cm with a velocity of 96.4 cm/sec. of 87.6 cm/sec. Procedure Exam performed in department. VL/Dialysis Vein Map PRE-OP BILAT Interpretation Summary Bilateral upper extremity arteries patent with normal waveforms and measurements above. Bilateral upper extremity veins patent with measurements above. Ordering Physician: Marleny William Referring Physician: Ct Dyson Performed By: Argelia Bowers RVT ??? 02/17/25 1744 Date Rui Vera MD CC: TARUN Horowitz; Dr. Ct Dyson, Date Dictated: 02/[id number] Date Transcribed: 02/17/251743 Graphite Disk Assembler: Signed Normal [facility] LABORATORYOrdered By: SYSTEM SYSTEM on 02-17-2025 Albumin BCP dye [Mass/Vol] 3.6 G/dL Normal 3.2 - 4.8 G/dL ADM SS Albumin/Globulin [Mass ratio] 1.1 {ratio} Normal 0.9 - 1.6 ratio AH ADM SS ALP [Catalytic activity/Vol] 71 U/L Normal 38 - 126 U/L ADM SS ALT No additional P-5'-P [Catalytic activity/Vol] 15 U/L Normal 12 - 55 U/L ADM SS AST [Catalytic activity/Vol] 21 U/L Normal 8 - 34 U/L ADM SS Basophils (Bld) [#/Vol] 0.0 103/mcL Normal 0.0 - 0.3 10^3/mcL Workflow SS Basophils/100 WBC (Bld) 0.6 % Normal 0.0 - 2.5 % Workflow SS Bilirubin [Mass/Vol] 0.20 mg/dL Normal 0.20 - 1.20 mg/dL ADM SS Comment on above: Interpretive Data: U se of this assay is not recommended for patients undergoing treatment with eltrombopag due to the potential for falsely elevated results. Eosinophils (Bld) [#/Vol] 0.4 103/mcL Normal 0.0 - 0.7 10^3/mcL Workflow SS Eosinophils/100 WBC (Bld) 5.6 % Normal 0.0 - 6.0 % Workflow SS Erythrocyte distribution width (RBC) [Ratio] 15.1 % Normal 11.5 - 15.5 % Workflow SS Globulin 3.2 G/dL Normal 1.5 - 3.8 G/dL ADM SS Hematocrit (Bld) [Volume fraction] 35.6 % Low 40.0 - 52.0 % Workflow SS Hemoglobin (Bld) [Mass/Vol] 11.9 G/dL Low 13.0 - 17.5 G/dL Workflow SS Lymphocytes (Bld) [#/Vol] 1.5 103/mcL Normal 0.9 - 4.3 10^3/mcL AH Workflow SS Lymphocytes/100 WBC (Bld) 20.9 % Normal 20.0 - 40.0 % AH Workflow SS MCH (RBC) [Entitic mass] 27.2 pg Normal 27.0 - 33.0 pg AH Workflow SS MCHC 33.4 G/dL Normal 32.0 - 36.0 G/dL AH Workflow SS MCV (RBC) [Entitic vol] 81.4 fL Normal 81.0 - 100.0 fL AH Workflow SS Monocyte distribution width Auto (Bld) [Entitic vol] 16.99 1 Normal 0.00 - 20.00 AH Workflow SS Comment on above: Result Comment: For ED adult patients suspected of sepsis, MDW<=20.0 does not rule out sepsis or risk of sepsis Monocytes (Bld) [#/Vol] 0.5 103/mcL Normal 0.1 - 1.4 10^3/mcL AH Workflow SS Monocytes/100 WBC (Bld) 6.8 % Normal 2.0 - 13.0 % AH Workflow SS Natriuretic peptide.B prohormone N-Terminal IA [Mass/Vol] 24649 pg/mL High 0 - 900 pg/mL AH ADM SS Neutrophils (Bld) [#/Vol] 4.8 103/mcL Normal 2.3 - 8.1 10^3/mcL AH Workflow SS Neutrophils/100 WBC (Bld) 66.1 % Normal 50.0 - 75.0 % AH Workflow SS Platelet mean volume (Bld) [Entitic vol] 7.4 fL Normal 6.4 - 10.5 fL AH Workflow SS Platelets (Bld) [#/Vol] 160 103/mcL Normal 150 - 450 10^3/mcL AH Workflow SS Protein [Mass/Vol] 6.8 G/dL Normal 5.7 - 8.2 G/dL AH ADM SS RBC (Bld) [#/Vol] 4.37 106/mcL Low 4.50 - 6.0 0 10^6/mcL AH Workflow SS Troponin I.cardiac DL <= 0.01 ng/mL [Mass/Vol] 98 ng/L High 0 - 54 ng/L AH ADM SS Comment on above: Interpretive Data: High Sensitive Troponin I Reference Ranges: Female: 0-34 ng/L Male: 0-54 ng/L Testing performed on [employer] IM analyzer using direct chemiluminescent technology. WBC (Bld) [#/Vol] 7.2 103/mcL Normal 4.5 - 10.8 10^3/mcL AH Workflow SS PBNPon 02-17-2025 Natriuretic peptide B (Bld) [Mass/Vol] 90567 pg/mL High 0-900 [facility] Comment on above: Performed By: #### C MP, CBC, PBNP, ANEU, MDW, TROPHS, GFR, ADIFF ####[facility] [place] [id number] TROPHSon 02-17-2025 High Sensitivity Troponin I 98 ng/L High 0-54 [facility] Comment on above: Result Comment: High Sensitive Troponin I Reference Ranges: Female: 0-34 ng/L Male: 0-54 ng/L Testing performed on [employer] IM analyzer using direct chemiluminescent technology. Performed By: #### C MP, CBC, PBNP, ANEU, MDW, TROPHS, GFR, ADIFF ####[place] [id number] [place] [address] Venous duplex ultrasound rep ortOrdered By: Rui Vera on 02-17-2025 US Vein [facility] Cardiovascular Services [address] [place] [id number] Dialysis Vein Map PRE-OP BILAT 02/17/25 0935 MR#: [id number] Acct: [id number] Name: VEL NICHOLS Rep #:[id number] : 1960 64 From: Rui Bermudez Attending Dr: TARUN Horowitz Stat us: REG CLI Ordering Dr: Marleny William Date: Location: [facility] Sex: M C Admitted: Reason For Study Reason For Study: Pre op Right Arm Left Arm Cephalic Vein at distal forearm measures 0.23 x 0.22 Cephalic Veinat distal forearm measures 0.12 x 0.14 cm. cm. Cephalic Vein at mid forearm measures 0.25 x 0.24 cm. Cephalic Veinat mid forearm measures 0.12 x 0.12 cm. Cephalic Vein proximal forearm measures 0.22 x 0.25 Cephalic Veinproximal forearm measures 0.15 x 0.15 cm. cm. Cephalic Vein distal upper arm measures 0.43 x 0.42 Cephalic Veindistal upper arm measures 0.36 x 0.36 cm. cm. Cephalic Vein at mid upper arm measures 0.36 x 0.38 Cephalic Veinat mid upper arm measures 0.36 x 0.33 cm. cm. Cephalic Vein at proximal upper arm measures 0.41 x Cephalic Veinat proximal upper arm measures 0.32 x 0.42 cm. 0.32 cm. Proximal Basilic vein measures 0.44 x 0.42 cm. Proximal Basilic vein measures 0.58 x 0.52 cm. Mid Basilic vein measures 0.35 x 0.35 cm. Mid Basilic vein measures 0.49 x 0.49 cm. Distal Basilic vein measures 0.37 x 0.39 cm. Distal Basilic vein measures 0.43 x 0.47 cm. Brachial artery measures 0.43 x 0.44 cm with a Brachial artery measures 0.46 x 0.46 cm with a velocity of 138.1 cm/sec. velocity of 122.7 cm/sec. Radial artery measures 0.20 x 0.21 cm with a velocity Radial arterymeasures 0.21 x 0.22 cm with a velocity of 96.4 cm/sec. of 87.6 cm/sec. Procedure Exam performed in department. VL/Dialysis Vein Map PRE-OP BILAT Interpretation Summary Bilateral upper extremity arteries patent with normal waveforms and measurementsabove. Bilateral upper extremity veins patent with measurements above. Ordering Physician: Marleny William Referring Physician: Ct Dyson Performed By: Argelia Bowers RVT ??? 02/17/25 1744 Date _ Rui Vera MD CC: TARUN Horowitz; Dr. Ct Dyson, DO ~ Date Dictated: 02/17/25934 Date Transcribed: 02/17/251743 Graphite Disk Assembler: Signed [facility] Work Phone: XR CHEST 1 VIEWon 02-17-2025 XR CHEST 1 VIEW ORIGINAL EXAMINATION: ONE XRAY VIEW OF THE CHEST 02/17/2025 8:47 pm COMPARISON: Radiograph of the chest December 19, 2024 HISTORY: ORDERING SYSTEM PROVIDED HISTORY: Reason for Exam: dyspnea FINDINGS: Cardiomediastinal silhouette is unchanged in size. Sternotomy postsurgical changes. Right-sided catheter unchanged. Costophrenic angles are sharp. No radiographic pneumothorax. No focal consolidation. Pulmonary vascular prominence. Osseous structures grossly unchanged. IMPRESSION: Pulmonary vascular prominence. Interpreted by: Alex Ortiz Preliminary Report By: Alex Ortiz Electronically signed By Alex Ortiz Dictated Date: 02/17/2025 8:51:29 PM Prelim Date: 02/17/2025 8:52:12 PM Sign Date: 02/17/2025 8:52:12 PM Ordering Provider: EMILY Carlisle [facility] .Auto Diffon 02-11-2025 Basophil, Absolute 0.1 10 3/mcL Normal 0.0-0.2 [facility] Comment on above: Performed By: #### A SEFERINO, FES, RFP, URIC, CBC, ADIFF, GFR #### [address] [address] #### PTH #### [address] [address] Basophils/100 WBC (Bld) 0.9 % Normal 0.0-2.5 [facility] Comment on above: Performed By: #### A SEFERINO, FES, RFP, URIC, CBC, ADIFF, GFR #### [address] [address] #### PTH #### [address] [address] Eosinophil, Absolute 0.4 10 3/mcL Normal 0.0-0.7 [facility] Comment on above: Performed By: #### A SEFERINO, FES, RFP, URIC, CBC, ADIFF, GFR #### [address] [address] #### PTH #### [address] [address] Eosinophils/100 WBC (Bld) 6.1 % Normal 0.0-7.0 [facility] Comment on above: Performed By: #### A SEFERINO, FES, RFP, URIC, CBC, ADIFF, GFR #### [place] [address] #### PTH #### [address] [address] Lymphocyte, Absolute 1.7 10 3/mcL Normal 0.9-4.3 [facility] Comment on above: Performed By: #### A SEFERINO, FES, RFP, URIC, CBC, ADIFF, GFR #### [place] [address] #### PTH #### [address] [address] Lymphocytes/100 WBC (Bld) 26.0 % Normal 20.0-40.0 [facility] Comment on above: Performed By: #### A SEFERINO, FES, RFP, URIC, CBC, ADIFF, GFR #### [place] [address] #### PTH #### [address] [address] Monocyte, Absolute 0.5 10 3/mcL Normal 0.1-1.4 [facility] Comment on above: Performed By: #### A SEFERINO, FES, RFP, URIC, CBC, ADIFF, GFR #### [place] [address] #### PTH #### [address] [address] Monocytes/100 WBC (Bld) 8.1 % Normal 2.0-13.0 [facility] Comment on above: Performed By: #### A SEFERINO, FES, RFP, URIC, CBC, ADIFF, GFR #### [address] [address] #### PTH #### [address] [address] Neutrophils/100 WBC (Bld) 58.9 % Normal 50.0-75.0 [facility] Comment on above: Performed By: #### A SEFERINO, FES, RFP, URIC, CBC, ADIFF, GFR #### [address] [address] #### PTH #### [address] [address] .GFRon 02-11-2025 Estimated Glomerular Filtration Rate 10 ml/min/1.73sqm Normal [facility] Comment on above: Result Comment: Stages of Chronic Kidney Disease (CKD) Stage Description eGFR(ml/min/1.73 sq.m.) CKD 1 Normal kidney function or >=90 normal kindney function with possible kidney damage (ex. Proteinuria) CKD 2 Kidney damage with mild loss 60-89 of kidney function CKD 3a Mild to moderate loss of kidney 45-59 function CKD 3b Moderate to severe loss of 30-44 of kindey function CKD 4 Severe loss of kidney function 15-29 CKD 5 Kidney failure <15 Note: (go live 2024) the eGFR calculation was updated to the 2020 CKD-EPI creatinine equation without a race factor to calculate the eGFR results. Performed By: #### A SEFERINO, FES, RFP, URIC, CBC, ADIFF, GFR #### [address] [address] #### PTH #### [address] [address] .NEUABSon 02-11-2025 Neutrophil, Absolute 3.8 10 3/mcL Normal 2.3-8.1 [facility] Comment on above: Performed By: #### A SEFERINO, FES, RFP, URIC, CBC, ADIFF, GFR #### [address] [address] #### PTH #### [place] [address] CBCon 02-11-2025 Erythrocyte distribution width (RBC) [Ratio] 14.9 % Normal 11.5-15.5 [facility] Comment on above: Performed By: #### A SEFERINO, FES, RFP, URIC, CBC, ADIFF, GFR #### [place] [address] #### PTH #### [place] [address] Hematocrit (Bld) [Volume fraction] 34.0 % Low 40.0-52.0 [facility] Comment on above: Performed By: #### A SEFERINO, FES, RFP, URIC, CBC, ADIFF, GFR #### [place] [address] #### PTH #### [place] [address] Hgb 11.3 G/dL Low 13.0-17.5 [facility] Comment on above: Performed By: #### A SEFERINO, FES, RFP, URIC, CBC, ADIFF, GFR #### [place] [address] #### PTH #### [place] [address] MCH (RBC) [Entitic mass] 27.0 pg Normal 27.0-33.0 [facility] Comment on above: Performed By: #### A SEFERINO, FES, RFP, URIC, CBC, ADIFF, GFR #### [place] [address] #### PTH #### [place] [address] MCHC 33.3 G/dL Normal 32.0-36.0 [facility] Comment on above: Performed By: #### A SEFERINO, FES, RFP, URIC, CBC, ADIFF, GFR #### [place] [address] #### PTH #### [place] [address] MCV (RBC) [Entitic vol] 81.0 fL Normal 81.0-100.0 [facility] Comment on above: Performed By: #### A SEFERINO, FES, RFP, URIC, CBC, ADIFF, GFR #### [place] [address] #### PTH #### [address] [address] Platelet 167 10 3/mcL Normal 150-450 [facility] Comment on above: Performed By: #### A SEFERINO, FES, RFP, URIC, CBC, ADIFF, GFR #### [place] [address] #### PTH #### [place] [address] Platelet mean volume (Bld) [Entitic vol] 7.6 fL Normal 6.4-10.5 [facility] Comment on above: Performed By: #### A SEFERINO, FES, RFP, URIC, CBC, ADIFF, GFR #### [place] [address] #### PTH #### [place] [address] RBC 4.19 10 6/mcL Low 4.50-6.00 [facility] Comment on above: Performed By: #### A SEFERINO, FES, RFP, URIC, CBC, ADIFF, GFR #### [place] [address] #### PTH #### [place] [address] WBC 6.4 10 3/mcL Normal 4.5-10.8 [facility] Comment on above: Performed By: #### A SEFERINO, FES, RFP, URIC, CBC, ADIFF, GFR #### [place] [address] #### PTH #### [place] [address] FESon 02-11-2025 Iron [Mass/Vol] 57 ug/dL Low 65-175 [facility] Comment on above: Performed By: #### A SEFERINO, FES, RFP, URIC, CBC, ADIFF, GFR #### [address] [address] #### PTH #### [address] [address] Iron Sat 26 % Normal [facility] Comment on above: Performed By: #### A SEEFRINO, FES, RFP, URIC, CBC, ADIFF, GFR #### [address] [address] #### PTH #### [place] [address] TIBC 223 mcg/dL Low 250-450 [facility] Comment on above: Performed By: #### A SEFERINO, FES, RFP, URIC, CBC, ADIFF, GFR #### [address] [address] #### PTH #### [place] [address] PTHon 02-11-2025 PTH, Intact 232.2 pg/mL High 18.5-88.0 [facility] Comment on above: Performed By: #### A SEFERINO, FES, RFP, URIC, CBC, ADIFF, GFR #### [address] [address] #### PTH #### [place] [address] RFPon 02-11-2025 Albumin Level 3.3 G/dL Low 3.4-4.8 [facility] Comment on above: Performed By: #### A SEFERINO, FES, RFP, URIC, CBC, ADIFF, GFR #### [address] [address] #### PTH #### [place] [address] BUN/Creatinine Ratio 10 ratio Normal 7-27 [facility] Comment on above: Performed By: #### A SEFERINO, FES, RFP, URIC, CBC, ADIFF, GFR #### [address] [address] #### PTH #### [address] [address] Calcium [Mass/Vol] 8.6 mg/dL Normal 8.4-10.2 [facility] Comment on above: Performed By: #### A SEFERINO, FES, RFP, URIC, CBC, ADIFF, GFR #### [address] [address] #### PTH #### [address] [address] Chloride [Moles/Vol] 104 mmol/L Normal 98-107 [facility] Comment on above: Performed By: #### A SEFERINO, FES, RFP, URIC, CBC, ADIFF, GFR #### [address] [address] #### PTH #### [address] [address] CO2 [Moles/Vol] 25 mmol/L Normal 23-31 [facility] Comment on above: Performed By: #### A SEFERINO, FES, RFP, URIC, CBC, ADIFF, GFR #### [address] [address] #### PTH #### [address] [address] Creatinine [Mass/Vol] 5.87 mg/dL High 0.70-1.30 [facility] Comment on above: Result Comment: Test ing performed on Siemens Dimension EXL analyzer using a modified kinetic Olivia technique. Performed By: #### A SEFERINO, FES, RFP, URIC, CBC, ADIFF, GFR #### [address] [address] #### PTH #### [address] [address] Electrolyte Balance 10.0 mEq/L Normal 4.0-15.0 [facility] Comment on above: Performed By: #### A SEFERINO, FES, RFP, URIC, CBC, ADIFF, GFR #### [address] [address] #### PTH #### [address] [address] Glucose [Mass/Vol] 123 mg/dL High 80-115 [facility] Comment on above: Performed By: #### A SEFERINO, FES, RFP, URIC, CBC, ADIFF, GFR #### [address] [address] #### PTH #### [address] [address] Phosphate [Mass/Vol] 6.6 mg/dL High 2.3-4.1 [facility] Comment on above: Performed By: #### A SEFERINO, FES, RFP, URIC, CBC, ADIFF, GFR #### [address] [address] #### PTH #### [address] [address] Potassium [Moles/Vol] 5.2 mmol/L High 3.5-5.1 [facility] Comment on above: Performed By: #### A SEFERINO, FES, RFP, URIC, CBC, ADIFF, GFR #### [address] [address] #### PTH #### [address] [address] Sodium [Moles/Vol] 139 mmol/L Normal 136-145 [facility] Comment on above: Performed By: #### A SEFERINO, FES, RFP, URIC, CBC, ADIFF, GFR #### [address] [address] #### PTH #### [address] [address] Urea nitrogen [Mass/Vol] 61 mg/dL High 7-18 [facility] Comment on above: Performed By: #### A SEFERINO, FES, RFP, URIC, CBC, ADIFF, GFR #### [address] [address] #### PTH #### [address] [address] URICon 02-11-2025 Uric Acid Lvl 7.6 mg/dL High 3.5-7.2 [facility] Comment on above: Performed By: #### A SEFERINO, FES, RFP, URIC, CBC, ADIFF, GFR #### [facility] [address] [place], [place] [address] #### PTH #### [facility] [address] [place] [address] MR/BMS.BVSon 02-06-2025 MR/BMS.BVS [facility] Vascular Surgery [address] [place] [address] OFFICE VISIT Date of Service: 02/06/25 MR#: [id number] Acct: [id number] Name: VEL NICHOLS Rep #: [id number] : 1960 Provider: TARUN Horowitz Age/Sex: 64/M Location: [facility].BVS Status: Signed Intake Vital Signs 06/06/23 12:56 02/06/25 08:38 02/06/25 09:36 Height 5 ft 7 in Weight: 218 lb BP 213/104 H 184/96 H Blood Pressure Location Lt brachial Lt brachial Position Sitting Sitting Respiration 18 Pulse 85 Pulse Source Monitor Temp 98 F Temp Source Temporal Pulse Oximetry (%) 98 Oxygen Delivery Method room air Intake Visit Reasons: Needs Mapping Is patient in pain?: No Allergies bee venom protein (honey bee) (bee sting) Allergy (Verified 02/06/25 08:39) Swelling Medications ???Medication ???Instructions ???Recorded ???Confirmed ???Type escitalopram oxalate 5 mg tablet 10 mg PO DAILY depression 10/15/16 02/06/25 History (Lexapro) [id number] acid 0.4 1 ea PO DAILY supplement 10/15/16 02/06/25 History mg-lycopene 300 mcg-lutein 250 mcg tablet (Centrum Silver) omeprazole 20 mg capsule,delayed 20 mg PO DAILY gerd 10/15/1602/06 History release insulin aspart U-100 100 unit/mL 30 units subcut BID diabetes 01/1502/06/25 History (3 mL) subcutaneous pen (Novolog FlexPen U-100 Insulin aspart) insulin degludec 100 unit/mL (3 80 unit SQ BID diabetes 01/15/18 0 02/06/25 History mL) subcutaneous pen (Tresiba FlexTouch U-100 insulin) montelukast 10 mg tablet 10 mg PO DAILY@1700 #42 tabs 03/2202/06/25 Rx pravastatin 40 mg tablet 40 mg PO QHS 08/24/18 02/06/25 His tory aspirin 81 mg tablet,delayed 81 mg PO DAILY 05/17/23 02/06/25 H istory release Held on 06/06/23. Instructions: Resume on 07/04/23. cholecalciferol (vitamin D3) 25 25 mcg PO DAILY 05/17/23 02/06/25 History mcg (1,000 unit) tablet (Vitamin D3) daptomycin 500 mg intravenous 750 mg IV Q48 40 days #20 ea 06/0502/06/25 Rx solution meropenem 500 mg intravenous 500 mg IV Q12 40 days #80 ea 06/0502/06/25 Rx solution acetaminophen 500 mg tablet 1,000 mg (2 x 500 mg) PO Q8 #180 0 06/06/23 02/06/25 Rx tabs aspirin 81 mg chewable tablet 81 mg PO BID 4 weeks #56 tabs 05/2702/06/25 Rx oxycodone 5 mg tablet 5 - 10 mg (1 - 2 x 5 mg) PO .4-6 0 06/06/23 02/06/25 Rx hours prn PRN Pain Score 4-10 7 days #60 tabs ondansetron HCl 4 mg tablet 4 mg PO Q8H PRN 02/06/25 02/06/25 History Have you fallen in the past year?: No PFSH Medical History Loss of hearing Wears dentures Depression Alcohol use Insulin dependent diabetes mellitus Arthritis High cholesterol Back pain History of hiatal hernia Dietary restriction Gastric reflux COPD (chronic obstructive pulmonary disease) Smoker History of pain when walking History of edema History of stress test Cardiology follow-up encounter Hypertension NSTEMI (non-ST elevated myocardial infarction) Surgical History H/O heart artery stent ( 11/06/24) Hx of knee surgery History of arthroplasty of knee Hx of left cataract extraction Hx of knee surgery Hx of knee surgery Hx of total knee arthroplasty Hx of right cataract extraction Hx of foot surgery Hx of arthroscopy Hx laparoscopic cholecystectomy Hx of hernia repair Hx of arthroscopy of right knee Status post coronary artery stent placement Coronary angioplasty status Status post revision of total replacement of right knee Social History (Updated 02/06/25 @ 08:36 by Phoebe Melissa MA) Smoking Status: Former smoker how long ago did patient quit smokin years HPI HPI HPI: VEL NICHOLS, is a 64 M who presents to the office today for consultation for AV fistula creation as referred from his dialysis unit. He has not had any vein mapping. He has been on dialysis since October 2024; he notes he went into renal failure following heart attack and subsequent CABGx3. He currently has a R IJ catheter in place, this has been functioning well for him. He initially was MWF dialysis then just MW and for the last 2 weeks has had no dialysis as his kidneys seem to be making some recovery. He has follow-up with his flat examiner Monday to determine if he will still be needing dialysis. He is right hand dominant. He has had prior R chest PICC line/port for antibiotics for at the time R TKR infection; this was years ago. He denies any clavicle/arm fracture, lymph node dissection, radiation, pacemaker. He was notably hypertensive in the office today. He notes with dialysis he was getting hypotensive so they had backed off his (more content not included)... Normal [facility] XR CHEST 2 VIEWSon 5 XR CHEST 2 VIEWS ORIGINAL EXAMINATION: TWO XRAY VIEWS OF THE CHEST TECHNIQUE: CHEST AP/PA and LATERAL COMPARISON: 11/22/2024 HISTORY: ORDERING SYSTEM PROVIDED HISTORY: Reason for Exam: SOB FINDINGS: Sternotomy wires. Right internal jugular central line is stable. Coronary stents. Epicardial leads. The heart is not enlarged. The mediastinal silhouette is unremarkable. No consolidation. Small left pleural effusion with adjacent atelectasis similar to prior. No significant right pleural effusion. No pneumothorax. No vascular congestion. No aggressive osseous lesions. IMPRESSION: Small left pleural effusion similar or decreased from the earlier study. This may be entirely pleural thickening and scarring.. I have personally reviewed the images of this examination and agree with the resident's findings and interpretation. Interpreted by: Rod Bowman MD Preliminary Report By: Yoni Mendiola MD Electronically signed By Rod Bowman MD Dictated Date: 12/19/2024 4:06:47 PM Prelim Date: 12/19/2024 4:11:06 PM Sign Date: 12/19/2024 4:11:06 PM Ordering Provider: SHLOMO GUILLEN [facility] XR CHEST 2 VIEWSon XR CHEST 2 VIEWS ORIGINAL EXAMINATION: TWO XRAY VIEWS OF THE CHEST11/22/2024 8:24 am COMPARISON: 11/12/2024 HISTORY: ORDERING SYSTEM PROVIDED HISTORY: Reason for Exam: Abnormal breath sounds, FINDINGS: Stable heart and mediastinum with previous sternotomy. Right-sided central venous catheter remains in place. Left subclavian central line has been removed. There is a small left pleural effusion and elevation of the left hemidiaphragm with some left basilar atelectasis. No other significant abnormality. IMPRESSION: Small left pleural effusion and left basilar atelectasis. Interpreted by: Rod Bowman MD Preliminary Report By: Rod Bowman MD Electronically signed By Rod Bowman MD Dictated Date: 11/23/2024 6:19:35 PM Prelim Date: 11/23/2024 6:20:31 PM Sign Date: 11/23/2024 6:20:31 PM Ordering Provider: SHLOMO GUILLEN [facility] .GFRon 11-22-2024 GFR 21 ml/min/1.73sqm [facility] Comment on above: Result Comment: GFR Population mean for , Non- Americans Ages 20-29 = 116 mL/min/1.73 sq.m. Ages 30-39 = 107 mL/min/1.73 sq.m. Ages 40-49 = 99 mL/min/1.73 sq.m. Ages 50-59 = 93 mL/min/1.73 sq.m. Ages 60-69 = 85 mL/min/1.73 sq.m. Ages 70+ = 75 mL/min/1.73 sq.m. Chronic Kidney Disease: Less than 60 mL/min/1.73 square meters End Stage Renal Disease: Less than 15 mL/min/1.73 square meters Performed By: #### G , BMP ####[address] [place] [address] GFR Non- 17 ml/min/1.73sqm Normal [facility] Comment on above: Result Comment: GFR Population mean for , Non- Americans Ages 20-29 = 116 mL/min/1.73 sq.m. Ages 30-39 = 107 mL/min/1.73 sq.m. Ages 40-49 = 99 mL/min/1.73 sq.m. Ages 50-59 = 93 mL/min/1.73 sq.m. Ages 60-69 = 85 mL/min/1.73 sq.m. Ages 70+ = 75 mL/min/1.73 sq.m. Chronic Kidney Disease: Less than 60 mL/min/1.73 square meters End Stage Renal Disease: Less than 15 mL/min/1.73 square meters Performed By: #### G FR, BMP ####[address] [address] [facility] BUN/Creatinine Ratio 10.7 ratio Normal 10.0-22.0 [facility] Comment on above: Performed By: #### G FR, BMP ####[address] [address] Calcium [Mass/Vol] 9.0 mg/dL Normal 8.7-10.4 [facility] Comment on above: Performed By: #### G FR, BMP ####[address] [address] Chloride [Moles/Vol] 102 mmol/L Normal 98-110 [facility] Comment on above: Performed By: #### G FR, BMP ####[address] [address] CO2 [Moles/Vol] 33 mmol/L High 22-32 [facility] Comment on above: Performed By: #### G FR, BMP ####[address] [address] Creatinine [Mass/Vol] 3.63 mg/dL High 0.60-1.40 [facility] Comment on above: Result Comment: Test ing performed on Zannel analyzer using enzymatic creatinine methodology. Performed By: #### G FR, BMP ####[address] [address] Electrolyte Balance 4.0 mEq/L Normal 4.0-15.0 [facility] Comment on above: Performed By: #### Yancy , BMP ####[address] [address] Glucose [Mass/Vol] 243 mg/dL High 82-115 [facility] Comment on above: Performed By: #### Yancy , BMP ####[address] [address] Potassium [Moles/Vol] 5.4 mmol/L High 3.5-5.0 [facility] Comment on above: Performed By: #### Yancy AZUL, BMP ####[address] [address] Sodium [Moles/Vol] 139 mmol/L Normal 136-145 [facility] Comment on above: Performed By: #### Yancy AZUL, BMP ####[address] [address] Urea nitrogen [Mass/Vol] 39.0 mg/dL High 8.0-22.0 [facility] Comment on above: Performed By: #### Yancy , BMP ####[address] [address] LABORATORYOrdered By: SYSTEM SYSTEM on 11-22-2024 Calcium [Mass/Vol] 9.0 mg/dL Normal 8.7 - 10. 4 mg/dL ADM SS Chloride [Moles/Vol] 102 mmol/L Normal 98 - 11 0 mEq/L ADM SS CO2 [Moles/Vol] 33 mmol/L High 22 - 32 mEq/L ADM SS Creatinine [Mass/Vol] 3.63 mg/dL High 0.60 - 1.40 mg/dL ADM SS Comment on above: Interpretive Data: T esting performed on Zannel analyzer using enzymatic creatinine methodology. Electrolyte Balance 4.0 mEq/L Normal 4.0 - 15 .0 mEq/L ADM SS GFR/1.73 sq M.predicted among blacks MDRD (S/P/Bld) [Vol rate/Area] 21 ml/min/1.73sqm Invalid Interpretation Code Chemistry S Comment on above: Interpretive Data: GFR Population mean for , Non- Americans Ages 20-29 = 116 mL/min/1.73 sq.m. Ages 30-39 = 107 mL/min/1.73 sq.m. Ages 40-49 = 99 mL/min/1.73 sq.m. Ages 50-59 = 93 mL/min/1.73 sq.m. Ages 60-69 = 85 mL/min/1.73 sq.m. Ages 70+ = 75 mL/min/1.73 sq.m. Chronic Kidney Disease: Less than 60 mL/min/1.73 square meters End Stage Renal Disease: Less than 15 mL/min/1.73 square meters GFR/1.73 sq M.predicted among non-blacks MDRD (S/P/Bld) [Vol rate/Area] 17 ml/min/1.73sqm Invalid Interpretation Code [employer] S Comment on above: Interpretive Data: GFR Population mean for , Non- Americans Ages 20-29 = 116 mL/min/1.73 sq.m. Ages 30-39 = 107 mL/min/1.73 sq.m. Ages 40-49 = 99 mL/min/1.73 sq.m. Ages 50-59 = 93 mL/min/1.73 sq.m. Ages 60-69 = 85 mL/min/1.73 sq.m. Ages 70+ = 75 mL/min/1.73 sq.m. Chronic Kidney Disease: Less than 60 mL/min/1.73 square meters End Stage Renal Disease: Less than 15 mL/min/1.73 square meters Glucose [Mass/Vol] 243 mg/dL High 82 - 115 mg/dL ADM SS Potassium [Moles/Vol] 5.4 mmol/L High 3.5 - 5.0 mEq/L ADM SS Sodium [Moles/Vol] 139 mmol/L Normal 136 - 145 mEq/L ADM SS Urea nitrogen [Mass/Vol] 39.0 mg/dL High 8.0 - 22.0 mg/dL ADM SS Urea nitrogen/Creatinine [Mass ratio] 10.7 ratio Normal 10.0 - 22.0 ratio ADM SS [id number] 11-13-2024 Anti-PLA2R <1.8 Normal 0.0-19.9 [facility] Comment on above: Result Comment: Nega tive <14.0 Borderline 14.0 - 19.9 Positive >19.9 Performed At: [facility] [id number] Vernon Elkins MD Ph:[phone] Performed By: #### A PTT #### [address] [address] .Auto Diffon 11-12-2024 Basophil, Absolute 0.1 10 3/mcL Normal 0.0-0.3 [facility] Comment on above: Performed By: #### A PTT #### [address] [address] Basophils/100 WBC (Bld) 0.9 % Normal 0.0-2.5 [place] [facility] Comment on above: Performed By: #### A PTT #### [address] [address] Eosinophil, Absolute 0.3 10 3/mcL Normal 0.0-0.7 [facility] Comment on above: Performed By: #### A PTT #### [address] [address] Eosinophils/100 WBC (Bld) 4.6 % Normal 0.0-6.0 [facility] Comment on above: Performed By: #### A PTT #### [address] [address] Lymphocyte, Absolute 1.1 10 3/mcL Normal 0.9-4.3 [facility] Comment on above: Performed By: #### A PTT #### [address] [address] Lymphocytes/100 WBC (Bld) 15.6 % Low 20.0-40.0 [facility] Comment on above: Performed By: #### A PTT #### [address] [address] Monocyte, Absolute 0.7 10 3/mcL Normal 0.1-1.4 [facility] Comment on above: Performed By: #### A PTT #### [address] [address] Monocytes/100 WBC (Bld) 10.3 % Normal 2.0-13.0 [place] [facility] Comment on above: Performed By: #### A PTT #### [address] [address] Neutrophils/100 WBC (Bld) 68.6 % Normal 50.0-75.0 [facility] Comment on above: Performed By: #### A PTT #### [address] [address] .GFRon 11-12-2024 GFR 21 ml/min/1.73sqm [facility] Comment on above: Result Comment: GFR Population mean for , Non- Americans Ages 20-29 = 116 mL/min/1.73 sq.m. Ages 30-39 = 107 mL/min/1.73 sq.m. Ages 40-49 = 99 mL/min/1.73 sq.m. Ages 50-59 = 93 mL/min/1.73 sq.m. Ages 60-69 = 85 mL/min/1.73 sq.m. Ages 70+ = 75 mL/min/1.73 sq.m. Chronic Kidney Disease: Less than 60 mL/min/1.73 square meters End Stage Renal Disease: Less than 15 mL/min/1.73 square meters Performed By: #### R BCP #### [address] [address] GFR Non- 17 ml/min/1.73sqm [facility] Comment on above: Result Comment: GFR Population mean for , Non- Americans Ages 20-29 = 116 mL/min/1.73 sq.m. Ages 30-39 = 107 mL/min/1.73 sq.m. Ages 40-49 = 99 mL/min/1.73 sq.m. Ages 50-59 = 93 mL/min/1.73 sq.m. Ages 60-69 = 85 mL/min/1.73 sq.m. Ages 70+ = 75 mL/min/1.73 sq.m. Chronic Kidney Disease: Less than 60 mL/min/1.73 square meters End Stage Renal Disease: Less than 15 mL/min/1.73 square meters Performed By: #### R BCP #### [address] [address] .NEUABSon 11-12-2024 Neutrophil, Absolute 4.7 10 3/mcL Normal 2.3-8.1 [facility] Comment on above: Performed By: #### A PTT #### [address] [address] ANAIFSon 11-12-2024 Antinuclear Ab Screen Negative Normal Negative [facility] Comment on above: Result Comment: Anti -nuclear antibody test is used as an aid in diagnosis of systemic autoimmune diseases. Where positive and clinically warranted, follow-up using disease-specific testing is recommended. Low positive titers are not uncommon with advanced age, certain chronic infections, and malignancies among others. Test methodology: Indirect fluorescence immunoassay (IFA) using HEp-2 cells. Performed By: [facility] [address] [place] [address] Pain Medicine Physician: Jeff Suarez III, M.D. CLIA#: [id number] Performed By: #### A PTT #### [place] [id number] BMPon 11-12-2024 BUN/Creatinine Ratio 8.9 ratio Low 10.0-22.0 [facility] Comment on above: Performed By: #### A PTT #### [address] [address] Calcium [Mass/Vol] 9.3 mg/dL Normal 8.7-10.4 [facility] Comment on above: Performed By: #### A PTT #### [address] [address] Chloride [Moles/Vol] 103 mmol/L Normal 98-110 [facility] Comment on above: Performed By: #### A PTT #### [address] [address] CO2 [Moles/Vol] 30 mmol/L Normal 22-32 [facility] Comment on above: Performed By: #### A PTT #### [address] [address] Creatinine [Mass/Vol] 3.60 mg/dL High 0.60-1.40 [facility] Comment on above: Result Comment: Test ing performed on Zannel analyzer using enzymatic creatinine methodology. Performed By: #### A PTT #### [place] [id number] Electrolyte Balance 4.0 mEq/L Normal 4.0-15.0 [facility] Comment on above: Performed By: #### A PTT #### [place] [id number] Glucose [Mass/Vol] 123 mg/dL High 82-115 [facility] Comment on above: Performed By: #### A PTT #### [place] [id number] Potassium [Moles/Vol] 4.2 mmol/L Normal 3.5-5.0 [facility] Comment on above: Performed By: #### A PTT #### [place] [id number] Sodium [Moles/Vol] 137 mmol/L Normal 136-145 [facility] Comment on above: Performed By: #### A PTT #### [place] [id number] Urea nitrogen [Mass/Vol] 32.0 mg/dL High 8.0-22.0 [facility] Comment on above: Performed By: #### A PTT #### [place] [id number] CBCon 11-12-2024 Erythrocyte distribution width (RBC) [Ratio] 14.9 % Normal 11.5-15.5 [facility] Comment on above: Performed By: #### A PTT #### [place] [id number] Hematocrit (Bld) [Volume fraction] 28.1 % Low 40.0-52.0 [facility] Comment on above: Performed By: #### A PTT #### [place] [id number] Hgb 9.6 G/dL Low 13.0-17.5 [facility] Comment on above: Performed By: #### A PTT #### [place] [id number] MCH (RBC) [Entitic mass] 29.0 pg Normal 27.0-33.0 [facility] Comment on above: Performed By: #### A PTT #### [place] [address] MCHC 34.2 G/dL Normal 32.0-36.0 [facility] Comment on above: Performed By: #### A PTT #### [place] [id number] MCV (RBC) [Entitic vol] 84.8 fL Normal 81.0-100.0 [place] [facility] Comment on above: Performed By: #### A PTT #### [place] [address] Platelet 222 10 3/mcL Normal 150-450 [facility] Comment on above: Performed By: #### A PTT #### [place] [address] Platelet mean volume (Bld) [Entitic vol] 7.2 fL Normal 6.4-10.5 [facility] Comment on above: Performed By: #### A PTT #### [place] [id number] RBC 3.31 10 6/mcL Low 4.50-6.00 [facility] Comment on above: Performed By: #### A PTT #### [place] [id number] WBC 6.8 10 3/mcL Normal 4.5-10.8 [facility] Comment on above: Performed By: #### A PTT #### [place] [address] LABORATORYOrdered By: Aster Torres on 11-12-2024 Glucose [Mass/Vol] 174 mg/dL High 82 - 115 mg/dL [facility] Work Phone: LABORATORYOrdered By: Camden Arcos on 11-12-2024 Blood Glucose Testing Reason Routine (11/12/24 11:01 AM) [facility] Work Phone: Glucose [Mass/Vol] 174 mg/dL [facility] Work Phone: Comment on above: Result Comment: Told Narcisa WRIGHT Blood Glucose Testing Reason Routine (11/12/24 7:08 AM) [facility] Work Phone: Glucose [Mass/Vol] 112 mg/dL [facility] Work Phone: LABORATORYOrdered By: SYSTEM SYSTEM on 11-12-2024 Basophils (Bld) [#/Vol] 0.1 103/mcL Normal 0.0 - 0.3 10^3/mcL Workflow SS Basophils/100 WBC (Bld) 0.9 % Normal 0.0 - 2.5 % Workflow SS Calcium [Mass/Vol] 9.3 mg/dL Normal 8.7 - 10. 4 mg/dL ADM SS Chloride [Moles/Vol] 103 mmol/L Normal 98 - 11 0 mEq/L ADM SS CO2 [Moles/Vol] 30 mmol/L Normal 22 - 32 mEq/L ADM SS Creatinine [Mass/Vol] 3.60 mg/dL High 0.60 - 1.40 mg/dL ADM SS Comment on above: Interpretive Data: T esting performed on Zannel analyzer using enzymatic creatinine methodology. Electrolyte Balance 4.0 mEq/L Normal 4.0 - 15 .0 mEq/L AH ADM SS Eosinophils (Bld) [#/Vol] 0.3 103/mcL Normal 0.0 - 0.7 10^3/mcL Workflow SS Eosinophils/100 WBC (Bld) 4.6 % Normal 0.0 - 6.0 % AH Workflow SS Erythrocyte distribution width (RBC) [Ratio] 14.9 % Normal 11.5 - 15.5 % AH Workflow SS GFR/1.73 sq M.predicted among blacks MDRD (S/P/Bld) [Vol rate/Area] 21 ml/min/1.73sqm Invalid Interpretation Code ADM SS Comment on above: Interpretive Data: GFR Population mean for , Non- Americans Ages 20-29 = 116 mL/min/1.73 sq.m. Ages 30-39 = 107 mL/min/1.73 sq.m. Ages 40-49 = 99 mL/min/1.73 sq.m. Ages 50-59 = 93 mL/min/1.73 sq.m. Ages 60-69 = 85 mL/min/1.73 sq.m. Ages 70+ = 75 mL/min/1.73 sq.m. Chronic Kidney Disease: Less than 60 mL/min/1.73 square meters End Stage Renal Disease: Less than 15 mL/min/1.73 square meters GFR/1.73 sq M.predicted among non-blacks MDRD (S/P/Bld) [Vol rate/Area] 17 ml/min/1.73sqm Invalid Interpretation Code ADM SS Comment on above: Interpretive Data: GFR Population mean for , Non- Americans Ages 20-29 = 116 mL/min/1.73 sq.m. Ages 30-39 = 107 mL/min/1.73 sq.m. Ages 40-49 = 99 mL/min/1.73 sq.m. Ages 50-59 = 93 mL/min/1.73 sq.m. Ages 60-69 = 85 mL/min/1.73 sq.m. Ages 70+ = 75 mL/min/1.73 sq.m. Chronic Kidney Disease: Less than 60 mL/min/1.73 square meters End Stage Renal Disease: Less than 15 mL/min/1.73 square meters Glucose [Mass/Vol] 123 mg/dL High 82 - 115 mg/dL ADM SS Hematocrit (Bld) [Volume fraction] 28.1 % Low 40.0 - 52.0 % AH Workflow SS Hemoglobin (Bld) [Mass/Vol] 9.6 G/dL Low 13.0 - 17.5 G/dL AH Workflow SS Lymphocytes (Bld) [#/Vol] 1.1 103/mcL Normal 0.9 - 4.3 10^3/mcL AH Workflow SS Lymphocytes/100 WBC (Bld) 15.6 % Low 20.0 - 40.0 % AH Workflow SS Magnesium [Mass/Vol] 2.2 mg/dL Normal 1.6 - 2 .4 mg/dL ADM SS MCH (RBC) [Entitic mass] 29.0 pg Normal 27.0 - 33.0 pg AH Workflow SS MCHC 34.2 G/dL Normal 32.0 - 36.0 G/dL AH Workflow SS MCV (RBC) [Entitic vol] 84.8 fL Normal 81.0 - 100.0 fL AH Workflow SS Monocytes (Bld) [#/Vol] 0.7 103/mcL Normal 0.1 - 1.4 10^3/mcL AH Workflow SS Monocytes/100 WBC (Bld) 10.3 % Normal 2.0 - 13.0 % AH Workflow SS Neutrophils (Bld) [#/Vol] 4.7 103/mcL Normal 2.3 - 8.1 10^3/mcL AH Workflow SS Neutrophils/100 WBC (Bld) 68.6 % Normal 50.0 - 75.0 % AH Workflow SS Platelet mean volume (Bld) [Entitic vol] 7.2 fL Normal 6.4 - 10.5 fL AH Workflow SS Platelets (Bld) [#/Vol] 222 103/mcL Normal 150 - 450 10^3/mcL AH Workflow SS Potassium [Moles/Vol] 4.2 mmol/L Normal 3.5 - 5.0 mEq/L AH ADM SS RBC (Bld) [#/Vol] 3.31 106/mcL Low 4.50 - 6.0 0 10^6/mcL AH Workflow SS Sodium [Moles/Vol] 137 mmol/L Normal 136 - 145 mEq/L ADM SS Urea nitrogen [Mass/Vol] 32.0 mg/dL High 8.0 - 22.0 mg/dL ADM SS Urea nitrogen/Creatinine [Mass ratio] 8.9 ratio Low 10.0 - 22.0 ratio ADM SS WBC (Bld) [#/Vol] 6.8 103/mcL Normal 4.5 - 10.8 10^3/mcL Workflow SS MGon 11-12-2024 Magnesium [Mass/Vol] 2.2 mg/dL Normal 1.6-2.4 [facility] Comment on above: Performed By: #### R BCP #### [place] [address] XR CHEST 1 VIEWon 11-12-2024 XR CHEST 1 VIEW ORIGINAL EXAMINATION: ONE XRAY VIEW OF THE CHEST11/12/2024 5:32 am COMPARISON: 11/11/2024, 11/10/2024 HISTORY: ORDERING SYSTEM PROVIDED HISTORY: Reason for Exam: decreased breath sounds FINDINGS: Right internal jugular dialysis catheter and left subclavian central venous catheter are in stable position. The cardiomediastinal contours are stable. Atherosclerosis of the aorta. Small bilateral pleural effusions are unchanged. Left basilar atelectasis is again seen. No focal area consolidation or visible pneumothorax. The osseous structures appear unchanged. IMPRESSION: Stable small bilateral pleural effusions and left basilar atelectasis. I have personally reviewed the images of this examination, and agree with the resident's findings and interpretation. Interpreted by: Lorenzo Mccarthy MD Preliminary Report By: Josh Howell Electronically signed By Lorenzo Mccarthy MD Dictated Date: 11/12/2024 5:34:01 AM Prelim Date: 11/12/2024 5:38:20 AM Sign Date: 11/12/2024 5:51:15 AM Ordering Provider: SARA GUTIERREZ [facility] .GFRon 11-11-2024 GFR 14 ml/min/1.73sqm [facility] Comment on above: Result Comment: GFR Population mean for , Non- Americans Ages 20-29 = 116 mL/min/1.73 sq.m. Ages 30-39 = 107 mL/min/1.73 sq.m. Ages 40-49 = 99 mL/min/1.73 sq.m. Ages 50-59 = 93 mL/min/1.73 sq.m. Ages 60-69 = 85 mL/min/1.73 sq.m. Ages 70+ = 75 mL/min/1.73 sq.m. Chronic Kidney Disease: Less than 60 mL/min/1.73 square meters End Stage Renal Disease: Less than 15 mL/min/1.73 square meters Performed By: #### A LORENZO BALTAZAR #### [place] [address] GFR Non- 12 ml/min/1.73sqm [facility] Comment on above: Result Comment: GFR Population mean for , Non- Americans Ages 20-29 = 116 mL/min/1.73 sq.m. Ages 30-39 = 107 mL/min/1.73 sq.m. Ages 40-49 = 99 mL/min/1.73 sq.m. Ages 50-59 = 93 mL/min/1.73 sq.m. Ages 60-69 = 85 mL/min/1.73 sq.m. Ages 70+ = 75 mL/min/1.73 sq.m. Chronic Kidney Disease: Less than 60 mL/min/1.73 square meters End Stage Renal Disease: Less than 15 mL/min/1.73 square meters Performed By: #### A LORENZO BALTAZAR #### [place] [id number] CMPon 11-11-2024 Albumin Level 2.9 G/dL Low 3.2-4.8 [facility] Comment on above: Performed By: #### A LORENZO BALTAZAR #### [place] [id number] Albumin/Globulin [Mass ratio] 1.0 {ratio} Normal 0.9-1.6 [facility] Comment on above: Performed By: #### A LORENZO BALTAZAR #### [place] [id number] ALP [Catalytic activity/Vol] 57 U/L Normal 38-126 [facility] Comment on above: Performed By: #### A LORENZO BALTAZAR #### [place] [address] ALT/SGPT <7 Low 12-55 [facility] Comment on above: Performed By: #### A LORENZO BALTAZAR #### [place] [id number] AST [Catalytic activity/Vol] 20 U/L Normal 8-34 [facility] Comment on above: Performed By: #### A LORENZO BALTAZAR #### [place] [id number] Bili Total 0.30 mg/dL Normal 0.20-1.20 [facility] Comment on above: Result Comment: Use of this assay is not recommended for patients undergoing treatment with eltrombopag due to the potential for falsely elevated results. Performed By: #### A LORENZO BALTAZAR #### [place] [id number] BUN/Creatinine Ratio 10.2 ratio Normal 10.0-22.0 [facility] Comment on above: Performed By: #### A LORENZO BALTAZAR #### [place] [id number] Calcium [Mass/Vol] 9.2 mg/dL Normal 8.7-10.4 [facility] Comment on above: Performed By: #### A LORENZO BALTAZAR #### [address] [address] Chloride [Moles/Vol] 102 mmol/L Normal 98-110 [facility] Comment on above: Performed By: #### A LORENZO BALTAZAR #### [address] [address] CO2 [Moles/Vol] 26 mmol/L Normal 22-32 [facility] Comment on above: Performed By: #### A LORENZO BALTAZAR #### [address] [address] Creatinine [Mass/Vol] 4.98 mg/dL High 0.60-1.40 [facility] Comment on above: Result Comment: Test ing performed on Zannel analyzer using enzymatic creatinine methodology. Performed By: #### A LORENZO BALTAZAR #### [address] [address] Electrolyte Balance 5.0 mEq/L Normal 4.0-15.0 [facility] Comment on above: Performed By: #### A LORENZO BALTAZAR #### [address] [address] Globulin 2.9 G/dL Normal 1.5-3.8 [facility] Comment on above: Performed By: #### A LORENZO BALTAZAR #### [address] [address] Glucose [Mass/Vol] 144 mg/dL High 82-115 [facility] Comment on above: Performed By: #### A LORENZO BALTAZAR #### [address] [address] Potassium [Moles/Vol] 4.2 mmol/L Normal 3.5-5.0 [facility] Comment on above: Performed By: #### A LORENZO BALTAZAR #### [address] [address] Sodium [Moles/Vol] 133 mmol/L Low 136-145 [facility] Comment on above: Performed By: #### A BSGEL, ABOGEL #### [address] [address] Total Protein 5.8 G/dL Normal 5.7-8.2 [facility] Comment on above: Performed By: #### A BSGEL, ABOGEL #### [facility] [address] [place] [address] Urea nitrogen [Mass/Vol] 51.0 mg/dL High 8.0-22.0 [facility] Comment on above: Performed By: #### A BSGEL, ABOGEL #### [address] [address] LABORATORYOrdered By: Jitendra Leslie on 11-11-2024 Blood Glucose Testing Reason Routine (11/11/24 9:09 PM) [facility] Work Phone: Glucose [Mass/Vol] 275 mg/dL High 82 - 115 mg/dL [facility] Work Phone: Glucose [Mass/Vol] 159 mg/dL High 82 - 115 mg/dL [facility] Work Phone: LABORATORYOrdered By: Nick Pavon on 11-11-2024 Glucose [Mass/Vol] 148 mg/dL [facility] Work Phone: Time of Stated Blood Glucose [id number] [facility] Work Phone: LABORATORYOrdered By: SYSTEM SYSTEM on 11-11-2024 Albumin BCP dye [Mass/Vol] 2.9 G/dL Low 3.2 - 4.8 G/dL ADM SS Albumin/Globulin [Mass ratio] 1.0 {ratio} Normal 0.9 - 1.6 ratio AH ADM SS ALP [Catalytic activity/Vol] 57 U/L Normal 38 - 126 U/L ADM SS ALT No additional P-5'-P [Catalytic activity/Vol] U/L 1 Low 12 - 55 U/L ADM SS AST [Catalytic activity/Vol] 20 U/L Normal 8 - 34 U/L ADM SS Bilirubin [Mass/Vol] 0.30 mg/dL Normal 0.20 - 1.20 mg/dL ADM Comment on above: Interpretive Data: U se of this assay is not recommended for patients undergoing treatment with eltrombopag due to the potential for falsely elevated results. Calcium [Mass/Vol] 9.2 mg/dL Normal 8.7 - 10. 4 mg/dL ADM SS Chloride [Moles/Vol] 102 mmol/L Normal 98 - 11 0 mEq/L ADM SS CO2 [Moles/Vol] 26 mmol/L Normal 22 - 32 mEq/L ADM SS Creatinine [Mass/Vol] 4.98 mg/dL High 0.60 - 1.40 mg/dL ADM Comment on above: Interpretive Data: T esting performed on Zannel analyzer using enzymatic creatinine methodology. Electrolyte Balance 5.0 mEq/L Normal 4.0 - 15 .0 mEq/L ADM GFR/1.73 sq M.predicted among blacks MDRD (S/P/Bld) [Vol rate/Area] 14 ml/min/1.73sqm Invalid Interpretation Code ADM Comment on above: Interpretive Data: GFR Population mean for , Non- Americans Ages 20-29 = 116 mL/min/1.73 sq.m. Ages 30-39 = 107 mL/min/1.73 sq.m. Ages 40-49 = 99 mL/min/1.73 sq.m. Ages 50-59 = 93 mL/min/1.73 sq.m. Ages 60-69 = 85 mL/min/1.73 sq.m. Ages 70+ = 75 mL/min/1.73 sq.m. Chronic Kidney Disease: Less than 60 mL/min/1.73 square meters End Stage Renal Disease: Less than 15 mL/min/1.73 square meters GFR/1.73 sq M.predicted among non-blacks MDRD (S/P/Bld) [Vol rate/Area] 12 ml/min/1.73sqm Invalid Interpretation Code ADM SS Comment on above: Interpretive Data: GFR Population mean for , Non- Americans Ages 20-29 = 116 mL/min/1.73 sq.m. Ages 30-39 = 107 mL/min/1.73 sq.m. Ages 40-49 = 99 mL/min/1.73 sq.m. Ages 50-59 = 93 mL/min/1.73 sq.m. Ages 60-69 = 85 mL/min/1.73 sq.m. Ages 70+ = 75 mL/min/1.73 sq.m. Chronic Kidney Disease: Less than 60 mL/min/1.73 square meters End Stage Renal Disease: Less than 15 mL/min/1.73 square meters Globulin 2.9 G/dL Normal 1.5 - 3.8 G/dL AH ADM SS Glucose [Mass/Vol] 144 mg/dL High 82 - 115 mg/dL AH ADM SS Magnesium [Mass/Vol] 2.5 mg/dL High 1.6 - 2 .4 mg/dL AH ADM SS Potassium [Moles/Vol] 4.2 mmol/L Normal 3.5 - 5.0 mEq/L AH ADM SS Protein [Mass/Vol] 5.8 G/dL Normal 5.7 - 8.2 G/dL ADM SS Sodium [Moles/Vol] 133 mmol/L Low 136 - 145 mEq/L ADM SS Urea nitrogen [Mass/Vol] 51.0 mg/dL High 8.0 - 22.0 mg/dL ADM SS Urea nitrogen/Creatinine [Mass ratio] 10.2 ratio Normal 10.0 - 22.0 ratio ADM SS MGon 11-11-2024 Magnesium [Mass/Vol] 2.5 mg/dL High 1.6-2.4 [facility] Comment on above: Performed By: #### A LORENZO BALTAZAR #### [place] [address] XR CHEST 1 VIEWon 11-11-2024 XR CHEST 1 VIEW ORIGINAL EXAMINATION: ONE XRAY VIEW OF THE CHEST 11/11/2024 5:36 am COMPARISON: Chest x-ray on 11/10/2024 HISTORY: ORDERING SYSTEM PROVIDED HISTORY: Reason for Exam: Vascular congestion FINDINGS: Right internal jugular dialysis catheter tip is in the right atrium. Left subclavian central venous catheter tip is in the superior vena cava. The heart size is normal. Small bilateral pleural effusions are unchanged. There is mild atelectasis at the left lung base that is stable. No significant right lung infiltrate is present. There is no pulmonary edema. No pneumothorax is visible. IMPRESSION: Stable small bilateral pleural effusions and mild left basilar atelectasis. Interpreted by: Lorenzo Mccarthy MD Preliminary Report By: Lorenzo Mccarthy MD Electronically signed By Lorenzo Mccarthy MD Dictated Date: 11/11/2024 5:50:04 AM Prelim Date: 11/11/2024 5:51:27 AM Sign Date: 11/11/2024 5:51:27 AM Ordering Provider: DENISE Carlisle [facility] .Auto Diffon 11-10-2024 Basophil, Absolute 0.0 10 3/mcL Normal 0.0-0.3 [facility] Comment on above: Performed By: #### R BCP #### [address] [address] Basophils/100 WBC (Bld) 0.5 % Normal 0.0-2.5 [place] [facility] Comment on above: Performed By: #### R BCP #### [address] [address] Eosinophil, Absolute 0.3 10 3/mcL Normal 0.0-0.7 [facility] Comment on above: Performed By: #### R BCP #### [address] [address] Eosinophils/100 WBC (Bld) 3.4 % Normal 0.0-6.0 [facility] Comment on above: Performed By: #### R BCP #### [address] [address] Lymphocyte, Absolute 1.1 10 3/mcL Normal 0.9-4.3 [facility] Comment on above: Performed By: #### R BCP #### [address] [address] Lymphocytes/100 WBC (Bld) 14.0 % Low 20.0-40.0 [facility] Comment on above: Performed By: #### R BCP #### [address] [address] Monocyte, Absolute 0.7 10 3/mcL Normal 0.1-1.4 [facility] Comment on above: Performed By: #### R BCP #### [address] [address] Monocytes/100 WBC (Bld) 9.5 % Normal 2.0-13.0 [place] [facility] Comment on above: Performed By: #### R BCP #### [address] [address] Neutrophils/100 WBC (Bld) 72.6 % Normal 50.0-75.0 [facility] Comment on above: Performed By: #### R BCP #### [address] [address] .GFRon 11-10-2024 GFR Non- 14 ml/min/1.73sqm [facility] Comment on above: Result Comment: GFR Population mean for , Non- Americans Ages 20-29 = 116 mL/min/1.73 sq.m. Ages 30-39 = 107 mL/min/1.73 sq.m. Ages 40-49 = 99 mL/min/1.73 sq.m. Ages 50-59 = 93 mL/min/1.73 sq.m. Ages 60-69 = 85 mL/min/1.73 sq.m. Ages 70+ = 75 mL/min/1.73 sq.m. Chronic Kidney Disease: Less than 60 mL/min/1.73 square meters End Stage Renal Disease: Less than 15 mL/min/1.73 square meters Performed By: #### A LORENZO BALTAZAR #### [address] [address] GFR 16 ml/min/1.73sqm [facility] Comment on above: Result Comment: GFR Population mean for , Non- Americans Ages 20-29 = 116 mL/min/1.73 sq.m. Ages 30-39 = 107 mL/min/1.73 sq.m. Ages 40-49 = 99 mL/min/1.73 sq.m. Ages 50-59 = 93 mL/min/1.73 sq.m. Ages 60-69 = 85 mL/min/1.73 sq.m. Ages 70+ = 75 mL/min/1.73 sq.m. Chronic Kidney Disease: Less than 60 mL/min/1.73 square meters End Stage Renal Disease: Less than 15 mL/min/1.73 square meters Performed By: #### A LORENZO BALTAZAR #### [address] [address] .NEUABSon 11-10-2024 Neutrophil, Absolute 5.6 10 3/mcL Normal 2.3-8.1 [facility] Comment on above: Performed By: #### R BCP #### [place] [address] CBCon 11-10-2024 Erythrocyte distribution width (RBC) [Ratio] 14.9 % Normal 11.5-15.5 [facility] Comment on above: Performed By: #### R BCP #### [place] [address] Hematocrit (Bld) [Volume fraction] 27.9 % Low 40.0-52.0 [facility] Comment on above: Performed By: #### R BCP #### [place] [address] Hgb 9.5 G/dL Low 13.0-17.5 [facility] Comment on above: Performed By: #### R BCP #### [place] [address] MCH (RBC) [Entitic mass] 29.0 pg Normal 27.0-33.0 [facility] Comment on above: Performed By: #### R BCP #### [place] [address] MCHC 33.9 G/dL Normal 32.0-36.0 [facility] Comment on above: Performed By: #### R BCP #### [place] [address] MCV (RBC) [Entitic vol] 85.5 fL Normal 81.0-100.0 [place] [facility] Comment on above: Performed By: #### R BCP #### [place] [address] Platelet 158 10 3/mcL Normal 150-450 [facility] Comment on above: Performed By: #### R BCP #### [place] [address] Platelet mean volume (Bld) [Entitic vol] 8.0 fL Normal 6.4-10.5 [facility] Comment on above: Performed By: #### R BCP #### [place] [id number] RBC 3.26 10 6/mcL Low 4.50-6.00 [facility] Comment on above: Performed By: #### R BCP #### [place] [id number] WBC 7.6 10 3/mcL Normal 4.5-10.8 [facility] Comment on above: Performed By: #### R BCP #### [place] [id number] CMPon 11-10-2024 Albumin Level 3.0 G/dL Low 3.2-4.8 [facility] Comment on above: Performed By: #### A LORENZO BALTAZAR #### [place] [address] Albumin/Globulin [Mass ratio] 1.0 {ratio} Normal 0.9-1.6 [facility] Comment on above: Performed By: #### A LORENZO BALTAZAR #### [address] [address] ALP [Catalytic activity/Vol] 60 U/L Normal 38-126 [facility] Comment on above: Performed By: #### A LORENZO BALTAZAR #### [place] [id number] ALT/SGPT <8 Low 12-55 [facility] Comment on above: Performed By: #### A LORENZO BALTAZAR #### [place] [id number] AST [Catalytic activity/Vol] 18 U/L Normal 8-34 [facility] Comment on above: Performed By: #### A LORENZO BALTAZAR #### [place] [id number] Bili Total 0.30 mg/dL Normal 0.20-1.20 [facility] Comment on above: Result Comment: Use of this assay is not recommended for patients undergoing treatment with eltrombopag due to the potential for falsely elevated results. Performed By: #### A LORENZO BALTAZAR #### [address] [address] BUN/Creatinine Ratio 9.3 ratio Low 10.0-22.0 [facility] Comment on above: Performed By: #### A LORENZO BALTAZAR #### [address] [address] Calcium [Mass/Vol] 9.3 mg/dL Normal 8.7-10.4 [facility] Comment on above: Performed By: #### A LORENZO BALTAZAR #### [address] [address] Chloride [Moles/Vol] 101 mmol/L Normal 98-110 [facility] Comment on above: Performed By: #### A LORENZO BALTAZAR #### [place] [id number] CO2 [Moles/Vol] 26 mmol/L Normal 22-32 [facility] Comment on above: Performed By: #### A LORENZO BALTAZAR #### [address] [address] Creatinine [Mass/Vol] 4.42 mg/dL High 0.60-1.40 [facility] Comment on above: Result Comment: Test ing performed on Zannel analyzer using enzymatic creatinine methodology. Performed By: #### A LORENZO BALTAZAR #### [address] [address] Electrolyte Balance 8.0 mEq/L Normal 4.0-15.0 [facility] Comment on above: Performed By: #### A LORENZO BALTAZAR #### [address] [address] Globulin 3.1 G/dL Normal 1.5-3.8 [facility] Comment on above: Performed By: #### A LORENZO BALTAZAR #### [address] [address] Glucose [Mass/Vol] 133 mg/dL High 82-115 [facility] Comment on above: Performed By: #### A LORENZO BALTAZAR #### [facility] [address] [place] [address] Potassium [Moles/Vol] 4.1 mmol/L Normal 3.5-5.0 [facility] Comment on above: Performed By: #### A LORENZO BALTAZAR #### [address] [address] Sodium [Moles/Vol] 135 mmol/L Low 136-145 [facility] Comment on above: Performed By: #### A LORENZO BALTAZAR #### [address] [address] Total Protein 6.1 G/dL Normal 5.7-8.2 [facility] Comment on above: Performed By: #### A LORENZO BALTAZAR #### [address] [address] Urea nitrogen [Mass/Vol] 41.0 mg/dL High 8.0-22.0 [facility] Comment on above: Performed By: #### A LORENZO BALTAZAR #### [address] [address] LABORATORYOrdered By: SYSTEM SYSTEM on 11-10-2024 Albumin BCP dye [Mass/Vol] 3.0 G/dL Low 3.2 - 4.8 G/dL ADM SS Albumin/Globulin [Mass ratio] 1.0 {ratio} Normal 0.9 - 1.6 ratio ADM SS ALP [Catalytic activity/Vol] 60 U/L Normal 38 - 126 U/L ADM SS ALT No additional P-5'-P [Catalytic activity/Vol] U/L 1 Low 12 - 55 U/L ADM SS AST [Catalytic activity/Vol] 18 U/L Normal 8 - 34 U/L ADM SS Basophils (Bld) [#/Vol] 0.0 103/mcL Normal 0.0 - 0.3 10^3/mcL Workflow SS Basophils/100 WBC (Bld) 0.5 % Normal 0.0 - 2.5 % Workflow SS Bilirubin [Mass/Vol] 0.30 mg/dL Normal 0.20 - 1.20 mg/dL ADM SS Comment on above: Interpretive Data: U se of this assay is not recommended for patients undergoing treatment with eltrombopag due to the potential for falsely elevated results. Calcium [Mass/Vol] 9.3 mg/dL Normal 8.7 - 10. 4 mg/dL ADM SS Chloride [Moles/Vol] 101 mmol/L Normal 98 - 11 0 mEq/L ADM SS CO2 [Moles/Vol] 26 mmol/L Normal 22 - 32 mEq/L ADM SS Creatinine [Mass/Vol] 4.42 mg/dL High 0.60 - 1.40 mg/dL ADM SS Comment on above: Interpretive Data: T esting performed on Zannel analyzer using enzymatic creatinine methodology. Electrolyte Balance 8.0 mEq/L Normal 4.0 - 15 .0 mEq/L ADM SS Eosinophils (Bld) [#/Vol] 0.3 103/mcL Normal 0.0 - 0.7 10^3/mcL Workflow SS Eosinophils/100 WBC (Bld) 3.4 % Normal 0.0 - 6.0 % Workflow SS Erythrocyte distribution width (RBC) [Ratio] 14.9 % Normal 11.5 - 15.5 % Workflow SS GFR/1.73 sq M.predicted among blacks MDRD (S/P/Bld) [Vol rate/Area] 16 ml/min/1.73sqm Invalid Interpretation Code ADM SS Comment on above: Interpretive Data: GFR Population mean for , Non- Americans Ages 20-29 = 116 mL/min/1.73 sq.m. Ages 30-39 = 107 mL/min/1.73 sq.m. Ages 40-49 = 99 mL/min/1.73 sq.m. Ages 50-59 = 93 mL/min/1.73 sq.m. Ages 60-69 = 85 mL/min/1.73 sq.m. Ages 70+ = 75 mL/min/1.73 sq.m. Chronic Kidney Disease: Less than 60 mL/min/1.73 square meters End Stage Renal Disease: Less than 15 mL/min/1.73 square meters GFR/1.73 sq M.predicted among non-blacks MDRD (S/P/Bld) [Vol rate/Area] 14 ml/min/1.73sqm Invalid Interpretation Code ADM SS Comment on above: Interpretive Data: GFR Population mean for , Non- Americans Ages 20-29 = 116 mL/min/1.73 sq.m. Ages 30-39 = 107 mL/min/1.73 sq.m. Ages 40-49 = 99 mL/min/1.73 sq.m. Ages 50-59 = 93 mL/min/1.73 sq.m. Ages 60-69 = 85 mL/min/1.73 sq.m. Ages 70+ = 75 mL/min/1.73 sq.m. Chronic Kidney Disease: Less than 60 mL/min/1.73 square meters End Stage Renal Disease: Less than 15 mL/min/1.73 square meters Globulin 3.1 G/dL Normal 1.5 - 3.8 G/dL AH ADM SS Glucose [Mass/Vol] 133 mg/dL High 82 - 115 mg/dL AH ADM SS Hematocrit (Bld) [Volume fraction] 27.9 % Low 40.0 - 52.0 % AH Workflow SS Hemoglobin (Bld) [Mass/Vol] 9.5 G/dL Low 13.0 - 17.5 G/dL AH Workflow SS Lymphocytes (Bld) [#/Vol] 1.1 103/mcL Normal 0.9 - 4.3 10^3/mcL AH Workflow SS Lymphocytes/100 WBC (Bld) 14.0 % Low 20.0 - 40.0 % AH Workflow SS Magnesium [Mass/Vol] 2.4 mg/dL Normal 1.6 - 2 .4 mg/dL AH ADM SS MCH (RBC) [Entitic mass] 29.0 pg Normal 27.0 - 33.0 pg AH Workflow SS MCHC 33.9 G/dL Normal 32.0 - 36.0 G/dL AH Workflow SS MCV (RBC) [Entitic vol] 85.5 fL Normal 81.0 - 100.0 fL AH Workflow SS Monocytes (Bld) [#/Vol] 0.7 103/mcL Normal 0.1 - 1.4 10^3/mcL AH Workflow SS Monocytes/100 WBC (Bld) 9.5 % Normal 2.0 - 13.0 % AH Workflow SS Neutrophils (Bld) [#/Vol] 5.6 103/mcL Normal 2.3 - 8.1 10^3/mcL AH Workflow SS Neutrophils/100 WBC (Bld) 72.6 % Normal 50.0 - 75.0 % AH Workflow SS Platelet mean volume (Bld) [Entitic vol] 8.0 fL Normal 6.4 - 10.5 fL AH Workflow SS Platelets (Bld) [#/Vol] 158 103/mcL Normal 150 - 450 10^3/mcL AH Workflow SS Potassium [Moles/Vol] 4.1 mmol/L Normal 3.5 - 5.0 mEq/L AH ADM SS Protein [Mass/Vol] 6.1 G/dL Normal 5.7 - 8.2 G/dL AH ADM SS RBC (Bld) [#/Vol] 3.26 106/mcL Low 4.50 - 6.0 0 10^6/mcL AH Workflow SS Sodium [Moles/Vol] 135 mmol/L Low 136 - 145 mEq/L AH ADM SS Urea nitrogen [Mass/Vol] 41.0 mg/dL High 8.0 - 22.0 mg/dL ADM SS Urea nitrogen/Creatinine [Mass ratio] 9.3 ratio Low 10.0 - 22.0 ratio AH ADM SS WBC (Bld) [#/Vol] 7.6 103/mcL Normal 4.5 - 10.8 10^3/mcL AH Workflow SS MGon 11-10-2024 Magnesium [Mass/Vol] 2.4 mg/dL Normal 1.6-2.4 [facility] Comment on above: Performed By: #### G FR, MG, CMP #### [place] [address] XR CHEST 2 VIEWSon XR CHEST 2 VIEWS ORIGINAL EXAMINATION: TWO XRAY VIEWS OF THE CHEST 11/10/2024 5:13 am COMPARISON: Chest x-ray on 11/09/2024 HISTORY: ORDERING SYSTEM PROVIDED HISTORY: Reason for Exam: abnormal breath sounds FINDINGS: Right internal jugular dialysis catheter tip is in the right atrium. Left subclavian central venous catheter tip is in the superior vena cava. The heart size is normal. Small bilateral pleural effusions are blunting the costophrenic angles. There is minimal left basilar atelectasis. No pulmonary edema is present. There is no pneumothorax. IMPRESSION: 1. Small bilateral pleural effusions. 2. Minimal left basilar atelectasis. Interpreted by: Lorenzo Mccarthy MD Preliminary Report By: Lorenzo Mccarthy MD Electronically signed By Lorenzo Mccarthy MD Dictated Date: 11/10/2024 5:17:38 AM Prelim Date: 11/10/2024 5:19:11 AM Sign Date: 11/10/2024 5:19:11 AM Ordering Provider: SARA Carlisle [facility] .Auto Diffifrah 11-09-2024 Basophil, Absolute 0.0 10 3/mcL Normal 0.0-0.3 [facility] Comment on above: Performed By: #### G FR, MG, ADIFF, HBSAB, [id number], ANAIFS, CBC, BMP, ANEU, C3C4A ####[address] [address] Basophils/100 WBC (Bld) 0.4 % Normal 0.0-2.5 [place] [facility] Comment on above: Performed By: #### G FR, MG, ADIFF, HBSAB, 262625, ANAIFS, CBC, BMP, ANEU, C3C4A ####[address] [address] Eosinophil, Absolute 0.2 10 3/mcL Normal 0.0-0.7 [facility] Comment on above: Performed By: #### G FR, MG, ADIFF, HBSAB, 767048, ANAIFS, CBC, BMP, ANEU, C3C4A ####[address] [address] Eosinophils/100 WBC (Bld) 1.9 % Normal 0.0-6.0 [facility] Comment on above: Performed By: #### G FR, MG, ADIFF, HBSAB, 379805, ANAIFS, CBC, BMP, ANEU, C3C4A ####[address] [address] Lymphocyte, Absolute 0.9 10 3/mcL Normal 0.9-4.3 [facility] Comment on above: Performed By: #### G FR, MG, ADIFF, HBSAB, 543584, ANAIFS, CBC, BMP, ANEU, C3C4A ####[address] [address] Lymphocytes/100 WBC (Bld) 9.7 % Low 20.0-40.0 [facility] Comment on above: Performed By: #### G FR, MG, ADIFF, HBSAB, 492090, ANAIFS, CBC, BMP, ANEU, C3C4A ####[address] [address] Monocyte, Absolute 0.7 10 3/mcL Normal 0.1-1.4 [facility] Comment on above: Performed By: #### G FR, MG, ADIFF, HBSAB, 995046, ANAIFS, CBC, BMP, ANEU, C3C4A ####[address] [address] Monocytes/100 WBC (Bld) 7.6 % Normal 2.0-13.0 [place] [facility] Comment on above: Performed By: #### G FR, MG, ADIFF, HBSAB, 863876, ANAIFS, CBC, BMP, ANEU, C3C4A ####[address] [address] Neutrophils/100 WBC (Bld) 80.4 % High 50.0-75.0 [facility] Comment on above: Performed By: #### G FR, MG, ADIFF, HBSAB, 445252, ANAIFS, CBC, BMP, ANEU, C3C4A ####[address] [address] .GFRon 11-09-2024 GFR 12 ml/min/1.73sqm Normal [facility] Comment on above: Result Comment: GFR Population mean for , Non- Americans Ages 20-29 = 116 mL/min/1.73 sq.m. Ages 30-39 = 107 mL/min/1.73 sq.m. Ages 40-49 = 99 mL/min/1.73 sq.m. Ages 50-59 = 93 mL/min/1.73 sq.m. Ages 60-69 = 85 mL/min/1.73 sq.m. Ages 70+ = 75 mL/min/1.73 sq.m. Chronic Kidney Disease: Less than 60 mL/min/1.73 square meters End Stage Renal Disease: Less than 15 mL/min/1.73 square meters Performed By: #### G FR, MG, ADIFF, HBSAB, 084285, ANAIFS, CBC, BMP, ANEU, C3C4A ####[place] [address] [address] [place] [address] GFR Non- 10 ml/min/1.73sqm Normal [facility] Comment on above: Result Comment: GFR Population mean for , Non- Americans Ages 20-29 = 116 mL/min/1.73 sq.m. Ages 30-39 = 107 mL/min/1.73 sq.m. Ages 40-49 = 99 mL/min/1.73 sq.m. Ages 50-59 = 93 mL/min/1.73 sq.m. Ages 60-69 = 85 mL/min/1.73 sq.m. Ages 70+ = 75 mL/min/1.73 sq.m. Chronic Kidney Disease: Less than 60 mL/min/1.73 square meters End Stage Renal Disease: Less than 15 mL/min/1.73 square meters Performed By: #### G FR, MG, ADIFF, HBSAB, 503197, ANAIFS, CBC, BMP, ANEU, C3C4A ####[place] [address] [address] [place] [address] .NEUABSon 11-09-2024 Neutrophil, Absolute 7.5 10 3/mcL Normal 2.3-8.1 [facility] Comment on above: Performed By: #### G FR, MG, ADIFF, HBSAB, 645202, ANAIFS, CBC, BMP, ANEU, C3C4A ####[place] [address] [address] [place] [address] BMPon 11-09-2024 BUN/Creatinine Ratio 9.2 ratio Low 10.0-22.0 [facility] Comment on above: Performed By: #### G FR, MG, ADIFF, HBSAB, 984510, ANAIFS, CBC, BMP, ANEU, C3C4A ####[place] [address] [place] [address] Calcium [Mass/Vol] 9.1 mg/dL Normal 8.7-10.4 [facility] Comment on above: Performed By: #### G FR, MG, ADIFF, HBSAB, 365113, ANAIFS, CBC, BMP, ANEU, C3C4A ####[address] [address] Chloride [Moles/Vol] 99 mmol/L Normal 98-110 [facility] Comment on above: Performed By: #### G FR, MG, ADIFF, HBSAB, 249821, ANAIFS, CBC, BMP, ANEU, C3C4A ####[address] [address] CO2 [Moles/Vol] 27 mmol/L Normal 22-32 [facility] Comment on above: Performed By: #### G FR, MG, ADIFF, HBSAB, 115403, ANAIFS, CBC, BMP, ANEU, C3C4A ####[address] [address] Creatinine [Mass/Vol] 5.73 mg/dL High 0.60-1.40 [facility] Comment on above: Result Comment: Test ing performed on Zannel analyzer using enzymatic creatinine methodology. Performed By: #### G FR, MG, ADIFF, HBSAB, 792772, ANAIFS, CBC, BMP, ANEU, C3C4A ####[address] [address] Electrolyte Balance 9.0 mEq/L Normal 4.0-15.0 [facility] Comment on above: Performed By: #### G FR, MG, ADIFF, HBSAB, 927397, ANAIFS, CBC, BMP, ANEU, C3C4A ####[address] [address] Glucose [Mass/Vol] 124 mg/dL High 82-115 [facility] Comment on above: Performed By: #### G FR, MG, ADIFF, HBSAB, 538733, ANAIFS, CBC, BMP, ANEU, C3C4A ####[address] [address] Potassium [Moles/Vol] 4.5 mmol/L Normal 3.5-5.0 [facility] Comment on above: Performed By: #### G FR, MG, ADIFF, HBSAB, 542775, ANAIFS, CBC, BMP, ANEU, C3C4A ####[place] [address] Sodium [Moles/Vol] 135 mmol/L Low 136-145 [facility] Comment on above: Performed By: #### G FR, MG, ADIFF, HBSAB, 569361, ANAIFS, CBC, BMP, ANEU, C3C4A ####[place] [address] Urea nitrogen [Mass/Vol] 53.0 mg/dL High 8.0-22.0 [facility] Comment on above: Performed By: #### G FR, MG, ADIFF, HBSAB, 154206, ANAIFS, CBC, BMP, ANEU, C3C4A ####[place] [address] P1D1Mis 11-09-2024 Complement C3A 80.0 mg/dL Low 90.0-170.0 [facility] Comment on above: Result Comment: No te - New Reference Range in effect 20 Performed By: #### G FR, MG, ADIFF, HBSAB, 398600, ANAIFS, CBC, BMP, ANEU, C3C4A ####[place] [address] Complement C4A 20.0 mg/dL Normal 16.0-38.0 [facility] Comment on above: Performed By: #### G FR, MG, ADIFF, HBSAB, 405764, ANAIFS, CBC, BMP, ANEU, C3C4A ####[place] [address] CBCon 11-09-2024 Erythrocyte distribution width (RBC) [Ratio] 14.9 % Normal 11.5-15.5 [facility] Comment on above: Performed By: #### G FR, MG, ADIFF, HBSAB, 874656, ANAIFS, CBC, BMP, ANEU, C3C4A ####[place] [address] Hematocrit (Bld) [Volume fraction] 26.6 % Low 40.0-52.0 [facility] Comment on above: Performed By: #### G FR, MG, ADIFF, HBSAB, 424084, ANAIFS, CBC, BMP, ANEU, C3C4A ####[place] [address] Hgb 9.0 G/dL Low 13.0-17.5 [facility] Comment on above: Performed By: #### G FR, MG, ADIFF, HBSAB, 328113, ANAIFS, CBC, BMP, ANEU, C3C4A ####[place] [address] MCH (RBC) [Entitic mass] 28.6 pg Normal 27.0-33.0 [facility] Comment on above: Performed By: #### G FR, MG, ADIFF, HBSAB, 237860, ANAIFS, CBC, BMP, ANEU, C3C4A ####[place] [address] MCHC 33.7 G/dL Normal 32.0-36.0 [facility] Comment on above: Performed By: #### G FR, MG, ADIFF, HBSAB, 143364, ANAIFS, CBC, BMP, ANEU, C3C4A ####[place] [address] MCV (RBC) [Entitic vol] 85.0 fL Normal 81.0-100.0 [place] [facility] Comment on above: Performed By: #### G FR, MG, ADIFF, HBSAB, 020593, ANAIFS, CBC, BMP, ANEU, C3C4A ####[place] [address] Platelet 122 10 3/mcL Low 150-450 [facility] Comment on above: Performed By: #### G FR, MG, ADIFF, HBSAB, 954428, ANAIFS, CBC, BMP, ANEU, C3C4A ####[place] [address] Platelet mean volume (Bld) [Entitic vol] 8.4 fL Normal 6.4-10.5 [facility] Comment on above: Performed By: #### G FR, MG, ADIFF, HBSAB, 731955, ANAIFS, CBC, BMP, ANEU, C3C4A ####[place] [address] [place] [address] RBC 3.13 10 6/mcL Low 4.50-6.00 [facility] Comment on above: Performed By: #### G FR, MG, ADIFF, HBSAB, 575322, ANAIFS, CBC, BMP, ANEU, C3C4A ####[place] [address] WBC 9.3 10 3/mcL Normal 4.5-10.8 [facility] Comment on above: Performed By: #### G FR, MG, ADIFF, HBSAB, 601379, ANAIFS, CBC, BMP, ANEU, C3C4A ####[place] [address] HBSABon 11-09-2024 Hep B Surf Ab <3.1 Low >=10.0 [facility] Comment on above: Result Comment: 0 to < 10.0 mIU/mL Nonreactive Patient is considered not to have protective immunity to HBV infection >/= 10.0 mIU/mL Reactive Patient is considered to have protective immunity to HBV infection. This assay is traceable to the World Health Organization (WHO) Hepatitis B Immunoglobulin 1st International Reference Preparation (1976). The accepted criteria for immunity to HBV is anti-HBs activity >/= 10.0 mIU/mL, as defined by the WHO International Reference Preparation. Performed By: #### G FR, MG, ADIFF, HBSAB, 792611, ANAIFS, CBC, BMP, ANEU, C3C4A ####[place] [address] LABORATORYOrdered By: DAVINA_Nadeem MARTI CONTRIBUTOR_SYSTEM on 11-09-2024 Antinuclear Ab Screen Negative Invalid Interpretation Code Negative AH Sendouts SS Comment on above: Result Comment: Anti -nuclear antibody test is used as an aid in diagnosis of systemic autoimmune diseases. Where positive and clinically warranted, follow-up using disease-specific testing is recommended. Low positive titers are not uncommon with advanced age, certain chronic infections, and malignancies among others. Test methodology: Indirect fluorescence immunoassay (IFA) using HEp-2 cells. Performed By: [place] [id number] [place] [address] Pain Medicine Physician: Trent Gross III#: [id number] LABORATORYOrdered By: SYSTEM SYSTEM on 11-09-2024 Basophils (Bld) [#/Vol] 0.0 103/mcL Normal 0.0 - 0.3 10^3/mcL AH Workflow SS Basophils/100 WBC (Bld) 0.4 % Normal 0.0 - 2.5 % AH Workflow SS Complement C3 [Mass/Vol] 80.0 mg/dL Low 90.0 - 170.0 mg/dL AH ADM SS Comment on above: Interpretive Data: * *Note - New Reference Range in effect 20 Complement C4 [Mass/Vol] 20.0 mg/dL Normal 16.0 - 38.0 mg/dL AH ADM SS Eosinophils (Bld) [#/Vol] 0.2 103/mcL Normal 0.0 - 0.7 10^3/mcL AH Workflow SS Eosinophils/100 WBC (Bld) 1.9 % Normal 0.0 - 6.0 % AH Workflow SS Erythrocyte distribution width (RBC) [Ratio] 14.9 % Normal 11.5 - 15.5 % AH Workflow SS Hematocrit (Bld) [Volume fraction] 26.6 % Low 40.0 - 52.0 % AH Workflow SS Hemoglobin (Bld) [Mass/Vol] 9.0 G/dL Low 13.0 - 17.5 G/dL AH Workflow SS Lymphocytes (Bld) [#/Vol] 0.9 103/mcL Normal 0.9 - 4.3 10^3/mcL AH Workflow SS Lymphocytes/100 WBC (Bld) 9.7 % Low 20.0 - 40.0 % AH Workflow SS MCH (RBC) [Entitic mass] 28.6 pg Normal 27.0 - 33.0 pg AH Workflow SS MCHC 33.7 G/dL Normal 32.0 - 36.0 G/dL AH Workflow SS MCV (RBC) [Entitic vol] 85.0 fL Normal 81.0 - 100.0 fL AH Workflow SS Monocytes (Bld) [#/Vol] 0.7 103/mcL Normal 0.1 - 1.4 10^3/mcL AH Workflow SS Monocytes/100 WBC (Bld) 7.6 % Normal 2.0 - 13.0 % AH Workflow SS Neutrophils (Bld) [#/Vol] 7.5 103/mcL Normal 2.3 - 8.1 10^3/mcL AH Workflow SS Neutrophils/100 WBC (Bld) 80.4 % High 50.0 - 75.0 % AH Workflow SS Platelet mean volume (Bld) [Entitic vol] 8.4 fL Normal 6.4 - 10.5 fL AH Workflow SS Platelets (Bld) [#/Vol] 122 103/mcL Low 150 - 450 10^3/mcL AH Workflow SS RBC (Bld) [#/Vol] 3.13 106/mcL Low 4.50 - 6.0 0 10^6/mcL AH Workflow SS WBC (Bld) [#/Vol] 9.3 103/mcL Normal 4.5 - 10.8 10^3/mcL AH Workflow SS LABORATORYOrdered By: Lisa Owen on 11-09-2024 HBV surface Ab Qn (S) mIU/mL Low >=10.0mIU/mL A H ADM SS Comment on above: Interpretive Data: 0 to < 10.0 mIU/mL Nonreactive Patient is considered not to have protective immunity to HBV infection >/= 10.0 mIU/mL Reactive Patient is considered to have protective immunity to HBV infection. This assay is traceable to the World Health Organization (WHO) Hepatitis B Immunoglobulin 1st International Reference Preparation (1976). The accepted criteria for immunity to HBV is anti-HBs activity >/= 10.0 mIU/mL, as defined by the WHO International Reference Preparation. Creatinine (U) [Mass/Vol] 95.4 mg/dL Invalid Interpretation Code ADM SS Protein (U) [Mass/Vol] 677.1 mg/dL Invalid Interpretation Code ADM SS U Ratio Prot/Creat 7.1 ratio Invalid Interpretation Code ADM SS MGon 11-09-2024 Magnesium [Mass/Vol] 2.6 mg/dL High 1.6-2.4 [facility] Comment on above: Performed By: #### G FR, MG, ADIFF, HBSAB, 740666, ANAIFS, CBC, BMP, ANEU, C3C4A ####[place] [address] RPCURon 11-09-2024 U Creatinine 95.4 mg/dL Normal [facility] Comment on above: Performed By: #### R PCUR ####[place] [address] [place] [address] U Protein 677.1 mg/dL Normal [facility] Comment on above: Performed By: #### R PCUR ####[place] [address] [place] [address] U Ratio Prot/Creat 7.1 ratio Normal [facility] Comment on above: Result Comment: resu lt calculated by rule GL_URPROT_UCREAT_NOTCALC (U Protein/U Creatinine) Performed By: #### R PCUR ####[place] [address] XR CHEST 1 VIEWon 11-09-2024 XR CHEST 1 VIEW ORIGINAL EXAMINATION: ONE XRAY VIEW OF THE CHEST 11/09/2024 5:52 am COMPARISON: Chest x-ray on 11/08/2024 HISTORY: ORDERING SYSTEM PROVIDED HISTORY: Reason for Exam: Vascular congestion/atelectasi s/recent bronchitis FINDINGS: Right internal jugular dialysis catheter tip is in the right atrium. Left subclavian central venous catheter tip is in the superior vena cava. The heart size is normal. There is mild atelectasis in left mid and lower lung zone, with slight improvement since the prior day. There is no right lung infiltrate. There is no pleural fluid or pneumothorax. No pulmonary edema is present. IMPRESSION: 1. Improving left lung atelectasis. 2. No new abnormality. Interpreted by: Lorenzo Mccarthy MD Preliminary Report By: Lorenzo Mccarthy MD Electronically signed By Lorenzo Mccarthy MD Dictated Date: 11/09/2024 5:57:42 AM Prelim Date: 11/09/2024 5:58:43 AM Sign Date: 11/09/2024 5:58:43 AM Ordering Provider: DENISE Carlisle [facility] .Auto Diffon 11-08-2024 Basophil, Absolute 0.0 10 3/mcL Normal 0.0-0.3 [facility] Comment on above: Performed By: #### C BC, ADIFF, ANEU, GFR, CMP, RFP, MG ####[address] [address] Basophils/100 WBC (Bld) 0.4 % Normal 0.0-2.5 [place] Comment on above: Performed By: #### C BC, ADIFF, ANEU, GFR, CMP, RFP, MG ####[place] [id number] [place] [id number] Eosinophil, Absolute 0.2 10 3/mcL Normal 0.0-0.7 [facility] Comment on above: Performed By: #### C BC, ADIFF, ANEU, GFR, CMP, RFP, MG ####[address] [address] Eosinophils/100 WBC (Bld) 2.5 % Normal 0.0-6.0 [facility] Comment on above: Performed By: #### C BC, ADIFF, ANEU, GFR, CMP, RFP, MG ####[address] [address] Lymphocyte, Absolute 1.2 10 3/mcL Normal 0.9-4.3 [facility] Comment on above: Performed By: #### C BC, ADIFF, ANEU, GFR, CMP, RFP, MG ####[address] [address] Lymphocytes/100 WBC (Bld) 13.4 % Low 20.0-40.0 [facility] Comment on above: Performed By: #### C BC, ADIFF, ANEU, GFR, CMP, RFP, MG ####[address] [address] Monocyte, Absolute 0.8 10 3/mcL Normal 0.1-1.4 [facility] Comment on above: Performed By: #### C BC, ADIFF, ANEU, GFR, CMP, RFP, MG ####[address] [address] Monocytes/100 WBC (Bld) 8.9 % Normal 2.0-13.0 [place] [facility] Comment on above: Performed By: #### C BC, ADIFF, ANEU, GFR, CMP, RFP, MG ####[address] [address] Neutrophils/100 WBC (Bld) 74.8 % Normal 50.0-75.0 [facility] Comment on above: Performed By: #### C BC, ADIFF, ANEU, GFR, CMP, RFP, MG ####[address] [address] .GFRon 11-08-2024 GFR Non- 13 ml/min/1.73sqm [facility] Comment on above: Result Comment: GFR Population mean for , Non- Americans Ages 20-29 = 116 mL/min/1.73 sq.m. Ages 30-39 = 107 mL/min/1.73 sq.m. Ages 40-49 = 99 mL/min/1.73 sq.m. Ages 50-59 = 93 mL/min/1.73 sq.m. Ages 60-69 = 85 mL/min/1.73 sq.m. Ages 70+ = 75 mL/min/1.73 sq.m. Chronic Kidney Disease: Less than 60 mL/min/1.73 square meters End Stage Renal Disease: Less than 15 mL/min/1.73 square meters Performed By: #### C BC, ADIFF, ANEU, GFR, CMP, RFP, MG ####[place] [address] GFR 16 ml/min/1.73sqm [facility] MAIN Comment on above: Result Comment: GFR Population mean for , Non- Americans Ages 20-29 = 116 mL/min/1.73 sq.m. Ages 30-39 = 107 mL/min/1.73 sq.m. Ages 40-49 = 99 mL/min/1.73 sq.m. Ages 50-59 = 93 mL/min/1.73 sq.m. Ages 60-69 = 85 mL/min/1.73 sq.m. Ages 70+ = 75 mL/min/1.73 sq.m. Chronic Kidney Disease: Less than 60 mL/min/1.73 square meters End Stage Renal Disease: Less than 15 mL/min/1.73 square meters Performed By: #### C BC, ADIFF, ANEU, GFR, CMP, RFP, MG ####[place] [id number] .NEUABSon 11-08-2024 Neutrophil, Absolute 6.7 10 3/mcL Normal 2.3-8.1 [facility] Comment on above: Performed By: #### C BC, ADIFF, ANEU, GFR, CMP, RFP, MG ####[place] [address] CBCon 11-08-2024 Erythrocyte distribution width (RBC) [Ratio] 14.9 % Normal 11.5-15.5 [facility] Comment on above: Performed By: #### C BC, ADIFF, ANEU, GFR, CMP, RFP, MG ####[place] [address] Hematocrit (Bld) [Volume fraction] 26.9 % Low 40.0-52.0 [facility] Comment on above: Performed By: #### C BC, ADIFF, ANEU, GFR, CMP, RFP, MG ####[place] [address] Hgb 9.2 G/dL Low 13.0-17.5 [facility] Comment on above: Performed By: #### C BC, ADIFF, ANEU, GFR, CMP, RFP, MG ####[place] [address] MCH (RBC) [Entitic mass] 28.8 pg Normal 27.0-33.0 [facility] Comment on above: Performed By: #### C BC, ADIFF, ANEU, GFR, CMP, RFP, MG ####[place] [address] MCHC 34.1 G/dL Normal 32.0-36.0 [facility] Comment on above: Performed By: #### C BC, ADIFF, ANEU, GFR, CMP, RFP, MG ####[place] [address] MCV (RBC) [Entitic vol] 84.3 fL Normal 81.0-100.0 [place] [facility] Comment on above: Performed By: #### C BC, ADIFF, ANEU, GFR, CMP, RFP, MG ####[place] [address] Platelet 95 10 3/mcL Low 150-450 [facility] Comment on above: Performed By: #### C BC, ADIFF, ANEU, GFR, CMP, RFP, MG ####[place] [address] Platelet mean volume (Bld) [Entitic vol] 8.3 fL Normal 6.4-10.5 [facility] Comment on above: Performed By: #### C BC, ADIFF, ANEU, GFR, CMP, RFP, MG ####[place] [address] RBC 3.19 10 6/mcL Low 4.50-6.00 [facility] Comment on above: Performed By: #### C BC, ADIFF, ANEU, GFR, CMP, RFP, MG ####[place] [address] WBC 9.0 10 3/mcL Normal 4.5-10.8 [facility] Comment on above: Performed By: #### C BC, ADIFF, ANEU, GFR, CMP, RFP, MG ####[place] [address] CMPon 11-08-2024 Albumin/Globulin [Mass ratio] 1.5 {ratio} Normal 0.9-1.6 [facility] Comment on above: Performed By: #### C BC, ADIFF, ANEU, GFR, CMP, RFP, MG ####[place] [address] ALP [Catalytic activity/Vol] 49 U/L Normal 38-126 [facility] Comment on above: Performed By: #### C BC, ADIFF, ANEU, GFR, CMP, RFP, MG ####[place] [address] ALT/SGPT <7 Low 12-55 [facility] Comment on above: Performed By: #### C BC, ADIFF, ANEU, GFR, CMP, RFP, MG ####[place] [address] AST [Catalytic activity/Vol] 35 U/L High 8-34 [facility] Comment on above: Performed By: #### C BC, ADIFF, ANEU, GFR, CMP, RFP, MG ####[place] [address] Bili Total 0.30 mg/dL Normal 0.20-1.20 [facility] Comment on above: Result Comment: Use of this assay is not recommended for patients undergoing treatment with eltrombopag due to the potential for falsely elevated results. Performed By: #### C BC, ADIFF, ANEU, GFR, CMP, RFP, MG ####[place] [address] Globulin 2.2 G/dL Normal 1.5-3.8 [facility] Comment on above: Performed By: #### C BC, ADIFF, ANEU, GFR, CMP, RFP, MG ####[place] [address] Total Protein 5.5 G/dL Low 5.7-8.2 [facility] Comment on above: Performed By: #### C BC, ADIFF, ANEU, GFR, CMP, RFP, MG ####[place] [address] LABORATORYOrdered By: SYSTEM SYSTEM on 11-08-2024 Albumin/Globulin [Mass ratio] 1.5 {ratio} Normal 0.9 - 1.6 ratio AH ADM SS ALP [Catalytic activity/Vol] 49 U/L Normal 38 - 126 U/L ADM SS ALT No additional P-5'-P [Catalytic activity/Vol] U/L 1 Low 12 - 55 U/L AH ADM SS AST [Catalytic activity/Vol] 35 U/L High 8 - 34 U/L ADM SS Bilirubin [Mass/Vol] 0.30 mg/dL Normal 0.20 - 1.20 mg/dL AH ADM SS Comment on above: Interpretive Data: U se of this assay is not recommended for patients undergoing treatment with eltrombopag due to the potential for falsely elevated results. Globulin 2.2 G/dL Normal 1.5 - 3.8 G/dL ADM SS Phosphate [Mass/Vol] 5.0 mg/dL Normal 2.4 - 5 .1 mg/dL AH ADM SS Comment on above: Interpretive Data: * *Note - New Reference Range in effect 20 Protein [Mass/Vol] 5.5 G/dL Low 5.7 - 8.2 G/dL AH ADM SS Laboratory - Chemistry and C hemistry - challengeOrdered By: SYSTEM SYSTEM on 11-08-2024 Albumin BCP dye [Mass/Vol] 3.3 G/dL Normal 3.2 - 4.8 G/dL AH ADM SS MGon 11-08-2024 Magnesium [Mass/Vol] 2.5 mg/dL High 1.6-2.4 [facility] Comment on above: Performed By: #### C BC, ADIFF, ANEU, GFR, CMP, RFP, MG ####[address] [address] RFPon 11-08-2024 Albumin Level 3.3 G/dL Normal 3.2-4.8 [facility] Comment on above: Performed By: #### C BC, ADIFF, ANEU, GFR, CMP, RFP, MG ####[place] [address] BUN/Creatinine Ratio 8.2 ratio Low 10.0-22.0 [facility] Comment on above: Performed By: #### C BC, ADIFF, ANEU, GFR, CMP, RFP, MG ####[address] [address] Calcium [Mass/Vol] 8.9 mg/dL Normal 8.7-10.4 [facility] Comment on above: Performed By: #### C BC, ADIFF, ANEU, GFR, CMP, RFP, MG ####[address] [address] Chloride [Moles/Vol] 102 mmol/L Normal 98-110 [facility] Comment on above: Performed By: #### C BC, ADIFF, ANEU, GFR, CMP, RFP, MG ####[address] [address] CO2 [Moles/Vol] 28 mmol/L Normal 22-32 [facility] Comment on above: Performed By: #### C BC, ADIFF, ANEU, GFR, CMP, RFP, MG ####[address] [address] Creatinine [Mass/Vol] 4.62 mg/dL High 0.60-1.40 [facility] Comment on above: Result Comment: Test ing performed on Zannel analyzer using enzymatic creatinine methodology. Performed By: #### C BC, ADIFF, ANEU, GFR, CMP, RFP, MG ####[address] [address] Electrolyte Balance 7.0 mEq/L Normal 4.0-15.0 [facility] Comment on above: Performed By: #### C BC, ADIFF, ANEU, GFR, CMP, RFP, MG ####[place] [id number] Glucose [Mass/Vol] 153 mg/dL High 82-115 [facility] Comment on above: Performed By: #### C BC, ADIFF, ANEU, GFR, CMP, RFP, MG ####[place] [id number] Phosphate [Mass/Vol] 5.0 mg/dL Normal 2.4-5.1 [facility] Comment on above: Result Comment: No te - New Reference Range in effect 20 Performed By: #### C BC, ADIFF, ANEU, GFR, CMP, RFP, MG ####[address] [address] Potassium [Moles/Vol] 4.4 mmol/L Normal 3.5-5.0 [facility] Comment on above: Performed By: #### C BC, ADIFF, ANEU, GFR, CMP, RFP, MG ####[place] [id number] Sodium [Moles/Vol] 137 mmol/L Normal 136-145 [facility] Comment on above: Performed By: #### C BC, ADIFF, ANEU, GFR, CMP, RFP, MG ####[address] [address] Urea nitrogen [Mass/Vol] 38.0 mg/dL High 8.0-22.0 [facility] Comment on above: Performed By: #### C BC, ADIFF, ANEU, GFR, CMP, RFP, MG ####[facility] [place] [address] XR CHEST 1 VIEWon 11-08-2024 XR CHEST 1 VIEW ORIGINAL EXAMINATION: ONE XRAY VIEW OF THE CHEST 11/08/2024 10:35 am COMPARISON: Chest x-ray same day, 11/07/2024. HISTORY: ORDERING SYSTEM PROVIDED HISTORY: Reason for Exam: chest tube removal FINDINGS: Right-sided central venous catheter is noted with tip in unchanged position within the right atrium. A left subclavian central venous catheter is noted with tip in unchanged position within the superior vena cava. Interval removal of left basilar chest tube and mediastinal drain. Cardiomediastinal silhouette is stable. Median sternotomy wires are noted. Mild streaky airspace opacities within the left mid and lower lung with mildly improved aeration within the left lung base. No pneumothorax or large pleural effusion. Osseous structures appear intact. IMPRESSION: Interval removal of left basilar chest tube. No evidence of pneumothorax. Low lung volumes with left mid and lower lung streaky airspace opacities with mild interval improved aeration within the left lung base. Interpreted by: Ze Long Preliminary Report By: Ze Long Electronically signed By Ze Long Dictated Date: 11/08/2024 10:50:31 AM Prelim Date: 11/08/2024 10:53:42 AM Sign Date: 11/08/2024 10:53:42 AM Ordering Provider: CARMELITA Carlisle [facility] XR CHEST 1 VIEW ORIGINAL EXAMINATION: ONE XRAY VIEW OF THE CHEST 11/08/2024 5:46 am COMPARISON: 11/07/2024 HISTORY: ORDERING SYSTEM PROVIDED HISTORY: Reason for Exam: decreased breath sounds FINDINGS: Stable right IJV catheter, left subclavian catheter, mediastinal drain, and left basilar chest tube. Stable cardiomediastinal silhouette. Decreased lung volumes with associated hypoventilatory changes. Streaky opacities project over the left hilar and infrahilar regions. No pneumothorax. Degenerative changes of the spine. Status post sternotomy. IMPRESSION: Low lung volumes with streaky left lung opacities likely on the basis of subsegmental atelectasis or other airspace disease. Stable support devices as detailed above. I have personally reviewed the images of this examination, and agree with the resident's findings and interpretation. Interpreted by: Lorenzo Mccarthy MD Preliminary Report By: Yoni Perla Electronically signed By Lorenzo Mccarthy MD Dictated Date: 11/08/2024 5:52:18 AM Prelim Date: 11/08/2024 5:55:23 AM Sign Date: 11/08/2024 6:13:36 AM Ordering Provider: SARA Carlisle [facility] .Auto Diffon 11-07-2024 Basophil, Absolute 0.0 10 3/mcL Normal 0.0-0.3 [facility] Comment on above: Performed By: #### A BSGEL ABOGEL #### [address] [address] Basophils/100 WBC (Bld) 0.6 % Normal 0.0-2.5 [place] [facility] Comment on above: Performed By: #### A BSGEL ABOGEL #### [address] [address] Eosinophil, Absolute 0.1 10 3/mcL Normal 0.0-0.7 [facility] Comment on above: Performed By: #### A BSGEL ABOGEL #### [address] [address] Eosinophils/100 WBC (Bld) 0.9 % Normal 0.0-6.0 [facility] Comment on above: Performed By: #### A BSGEL, ABOGEL #### [address] [address] Lymphocyte, Absolute 1.1 10 3/mcL Normal 0.9-4.3 [facility] Comment on above: Performed By: #### A BSGEL, ABOGEL #### [address] [address] Lymphocytes/100 WBC (Bld) 14.1 % Low 20.0-40.0 [facility] Comment on above: Performed By: #### A BSGEL, ABOGEL #### [address] [address] Monocyte, Absolute 0.7 10 3/mcL Normal 0.1-1.4 [facility] Comment on above: Performed By: #### A BSGEL ABOGEL #### [address] [address] Monocytes/100 WBC (Bld) 9.0 % Normal 2.0-13.0 [facility] Comment on above: Performed By: #### A LORENZO BALTAZAR #### [address] [address] Neutrophils/100 WBC (Bld) 75.4 % High 50.0-75.0 [facility] Comment on above: Performed By: #### A LORENZO BALTAZAR #### [address] [address] .GFRon 11-07-2024 GFR 15 ml/min/1.73sqm [facility]IN Comment on above: Result Comment: GFR Population mean for , Non- Americans Ages 20-29 = 116 mL/min/1.73 sq.m. Ages 30-39 = 107 mL/min/1.73 sq.m. Ages 40-49 = 99 mL/min/1.73 sq.m. Ages 50-59 = 93 mL/min/1.73 sq.m. Ages 60-69 = 85 mL/min/1.73 sq.m. Ages 70+ = 75 mL/min/1.73 sq.m. Chronic Kidney Disease: Less than 60 mL/min/1.73 square meters End Stage Renal Disease: Less than 15 mL/min/1.73 square meters Performed By: #### A LORENZO BALTAZAR #### [address] [address] GFR Non- 12 ml/min/1.73sqm [facility] Comment on above: Result Comment: GFR Population mean for , Non- Americans Ages 20-29 = 116 mL/min/1.73 sq.m. Ages 30-39 = 107 mL/min/1.73 sq.m. Ages 40-49 = 99 mL/min/1.73 sq.m. Ages 50-59 = 93 mL/min/1.73 sq.m. Ages 60-69 = 85 mL/min/1.73 sq.m. Ages 70+ = 75 mL/min/1.73 sq.m. Chronic Kidney Disease: Less than 60 mL/min/1.73 square meters End Stage Renal Disease: Less than 15 mL/min/1.73 square meters Performed By: #### A LORENZO BALTAZAR #### [place] [address] .NEUABSon 11-07-2024 Neutrophil, Absolute 5.8 10 3/mcL Normal 2.3-8.1 [facility] Comment on above: Performed By: #### A LORENZO BALTAZAR #### [place] [address] APTTon 11-07-2024 aPTT Coag (Bld) [Time] 26.9 s Normal 25.0-35.0 [facility] Comment on above: Result Comment: For Heparin anticoagulation therapy, the recommended therapeutic range is: 54-77 seconds (APTT Correlation with Anti-Xa therapeutic range of 0.3-0.7 units/ml). PLEASE REFERENCE THE PHARMACY PROTOCOL FOR DOSING. Performed By: #### A LORENZO BALTAZAR #### [place] [address] BGon 11-07-2024 Base excess Calc (Bld) [Moles/Vol] -1.1000 mmol/L Normal [facility] Comment on above: Performed By: #### A LORENZO BALTAZAR #### [place] [address] CO2 [Moles/Vol] 25.5 mmol/L Normal 22.0-30.0 [facility] Comment on above: Performed By: #### A LORENZO BALTAZAR #### [place] [address] HCO3 (Bld) [Moles/Vol] 24.2 mmol/L Normal 21.0-29.0 [facility] Comment on above: Performed By: #### A LORENZO BALTAZAR #### [place] [address] Oxygen (Bld) [Partial pressure] 155.5 mm[Hg] High 74.0-108.0 [facility] Comment on above: Performed By: #### A LORENZO BALTAZAR #### [address] [address] Oxygen saturation in Blood 99.1 % High 92.0-96.0 [facility] Comment on above: Performed By: #### A LORENZO BALTAZAR #### [address] [address] pCO2 42.9 mmHg Normal 32.0-46.0 [facility] Comment on above: Performed By: #### A LORENZO BALTAZAR #### [address] [address] pH (Bld) 7.369 [pH] Low 7.380-7.460 [facility] Comment on above: Performed By: #### A LORENZO BALTAZAR #### [address] [address] Base excess Calc (Bld) [Moles/Vol] -3.6000 mmol/L Normal [facility] Comment on above: Order Comment: 2L Performed By: #### B G ####[place] [id number] CO2 [Moles/Vol] 23.8 mmol/L Normal 22.0-30.0 [facility] Comment on above: Order Comment: 2L Performed By: #### B G ####[place] [id number] HCO3 (Bld) [Moles/Vol] 22.4 mmol/L Normal 21.0-29.0 [facility] Comment on above: Order Comment: 2L Performed By: #### B G ####[place] [phone] Oxygen (Bld) [Partial pressure] 162.8 mm[Hg] High 74.0-108.0 [facility] Comment on above: Order Comment: 2L Performed By: #### B G ####[place] [id number] Oxygen saturation in Blood 98.6 % High 92.0-96.0 [facility] Comment on above: Order Comment: 2L Performed By: #### B G ####[place] [address] Order Comment: cpap trial Performed By: #### A LORENZO BALTAZRA #### [place] [address] pCO2 44.9 mmHg Normal 32.0-46.0 [facility] Comment on above: Order Comment: 2L Performed By: #### B G ####[place] [address] Order Comment: cpap trial Performed By: #### A LORENZO BALTAZAR #### [place] [address] pH (Bld) 7.316 [pH] Low 7.380-7.460 [facility] Comment on above: Order Comment: 2L Performed By: #### B G ####[place] [address] CBCon 11-07-2024 Erythrocyte distribution width (RBC) [Ratio] 14.4 % Normal 11.5-15.5 [facility] Comment on above: Performed By: #### A LORENZO BALTAZAR #### [place] [address] Hematocrit (Bld) [Volume fraction] 23.2 % Low 40.0-52.0 [facility] Comment on above: Performed By: #### A LORENZO BALTAZAR #### [place] [address] Hgb 7.8 G/dL Low 13.0-17.5 [facility] Comment on above: Performed By: #### A LORENZO BALTAZAR #### [place] [address] MCH (RBC) [Entitic mass] 27.8 pg Normal 27.0-33.0 [facility] Comment on above: Performed By: #### A LORENZO BALTAZAR #### [place] [address] MCHC 33.8 G/dL Normal 32.0-36.0 [facility] Comment on above: Performed By: #### A LORENZO BALTAZAR #### [place] [address] MCV (RBC) [Entitic vol] 82.3 fL Normal 81.0-100.0 [facility] Comment on above: Performed By: #### A LORENZO BALTAZAR #### [address] [address] Platelet 121 10 3/mcL Low 150-450 [facility] Comment on above: Performed By: #### A LORENZO BALTAZAR #### [address] [address] Platelet mean volume (Bld) [Entitic vol] 7.5 fL Normal 6.4-10.5 [facility] Comment on above: Performed By: #### A LORENZO BALTAZAR #### [address] [address] RBC 2.82 10 6/mcL Low 4.50-6.00 [facility] Comment on above: Performed By: #### A LORENZO BALTAZAR #### [place] [id number] WBC 7.7 10 3/mcL Normal 4.5-10.8 [facility] Comment on above: Performed By: #### A LORENZO BALTAZAR #### [address] [address] CMPon 11-07-2024 Albumin/Globulin [Mass ratio] 2.1 {ratio} High 0.9-1.6 [facility] Comment on above: Performed By: #### A LORENZO BALTAZAR #### [address] [address] ALP [Catalytic activity/Vol] 36 U/L Low 38-126 [facility] Comment on above: Performed By: #### A LORENZO BALTAZAR #### [address] [address] ALT [Catalytic activity/Vol] 12 U/L Normal 12-55 [facility] Comment on above: Performed By: #### A LORENZO BALTAZAR #### [address] [address] AST [Catalytic activity/Vol] 44 U/L High 8-34 [facility] Comment on above: Performed By: #### A LORENZO BALTAZAR #### [place] [address] Bili Total 0.30 mg/dL Normal 0.20-1.20 [facility] Comment on above: Result Comment: Use of this assay is not recommended for patients undergoing treatment with eltrombopag due to the potential for falsely elevated results. Performed By: #### A BSGEL, ABOGEL #### [place] [address] Globulin 1.5 G/dL Normal 1.5-3.8 [facility] Comment on above: Performed By: #### A BSGEL, ABOGEL #### [place] [address] Total Protein 4.6 G/dL Low 5.7-8.2 [facility] Comment on above: Performed By: #### A BSGEL, ABOGEL #### [place] [id number] [place] 11-07-2024 Potassium [Moles/Vol] 4.1 mmol/L Normal 3.5-5.0 [facility] Comment on above: Performed By: #### A PTT #### [place] [address] LABORATORYOrdered By: Benja Castro on 11-07-2024 RBC Product Ready RBC Ready for Pickup (11/07/24 7:39 AM) Normal AH BB Manual SS LABORATORYOrdered By: SYSTEM SYSTEM on 11-07-2024 aPTT Coag (Bld) [Time] 26.9 s Normal 25.0 - 35.0 seconds [facility] SS Comment on above: Interpretive Data: F or Heparin anticoagulation therapy, the recommended therapeutic range is: 54-77 seconds (APTT Correlation with Anti-Xa therapeutic range of 0.3-0.7 units/ml). PLEASE REFERENCE THE PHARMACY PROTOCOL FOR DOSING. Phosphate [Mass/Vol] 5.2 mg/dL High 2.4 - 5 .1 mg/dL AH ADM SS Comment on above: Interpretive Data: * *Note - New Reference Range in effect 20 LABORATORYOrdered By: Argelia Perla on 11-07-2024 Base Excess -1.1 mmol/L Invalid Interpretation Code AH Main Rapid Comm SS CO2 [Moles/Vol] 25.5 mmol/L Normal 22.0 - 30.0 mmol/L [facility] SS HCO3 (Bld) [Moles/Vol] 24.2 mmol/L Normal 21.0 - 29.0 mmol/L [facility] SS Oxygen (Bld) [Partial pressure] 155.5 mm[Hg] High 74.0 - 108.0 mm Hg [facility] SS pCO2 42.9 mm[Hg] Normal 32.0 - 46.0 mm Hg [facility] SS pH (Bld) 7.369 [pH] Low 7.380 - 7.460 [facility] SS LABORATORYOrdered By: Lili Quarles on 11-07-2024 Base Excess -3.6 mmol/L Invalid Interpretation Code Main [facility] Comm SS CO2 [Moles/Vol] 23.8 mmol/L Normal 22.0 - 30.0 mmol/L [facility] SS HCO3 (Bld) [Moles/Vol] 22.4 mmol/L Normal 21.0 - 29.0 mmol/L [facility] SS Oxygen (Bld) [Partial pressure] 162.8 mm[Hg] High 74.0 - 108.0 mm Hg [facility] SS pCO2 44.9 mm[Hg] Normal 32.0 - 46.0 mm Hg [facility] SS pH (Bld) 7.316 [pH] Low 7.380 - 7.460 [facility] SS MGon 11-07-2024 Magnesium [Mass/Vol] 2.9 mg/dL High 1.6-2.4 [facility] Comment on above: Performed By: #### A LORENZO BALTAZAR #### [address] [address] RBC (Product)on 11-07-2024 RBC Product Ready RBC Ready for Pickup Normal [facility] Comment on above: Performed By: #### R BCP #### [address] [address] RFPon 11-07-2024 Albumin Level 3.1 G/dL Low 3.2-4.8 [facility] Comment on above: Performed By: #### A LORENZO BALTAZAR #### [address] [address] BUN/Creatinine Ratio 9.6 ratio Low 10.0-22.0 [facility] Comment on above: Performed By: #### A LORENZO BALTAZAR #### [address] [address] Calcium [Mass/Vol] 8.0 mg/dL Low 8.7-10.4 [facility] Comment on above: Performed By: #### A LORENZO BALTAZAR #### [address] [address] Chloride [Moles/Vol] 106 mmol/L Normal 98-110 [facility] Comment on above: Performed By: #### A LORENZO BALTAZAR #### [address] [address] CO2 [Moles/Vol] 27 mmol/L Normal 22-32 [facility] Comment on above: Performed By: #### A LORENZO BALTAZAR #### [address] [address] Creatinine [Mass/Vol] 4.79 mg/dL High 0.60-1.40 [facility] Comment on above: Result Comment: Test ing performed on Zannel analyzer using enzymatic creatinine methodology. Performed By: #### A LORENZO BALTAZAR #### [address] [address] Electrolyte Balance 8.0 mEq/L Normal 4.0-15.0 [facility] Comment on above: Performed By: #### A LORENZO BALTAZAR #### [address] [address] Glucose [Mass/Vol] 131 mg/dL High 82-115 [facility] Comment on above: Performed By: #### A LORENZO BALTAZAR #### [address] [address] Phosphate [Mass/Vol] 5.2 mg/dL High 2.4-5.1 [facility] Comment on above: Result Comment: No te - New Reference Range in effect 20 Performed By: #### A LORENZO BALTAZAR #### [facility] [address] [place] [id number] Potassium [Moles/Vol] 4.6 mmol/L Normal 3.5-5.0 [facility] Comment on above: Performed By: #### A LORENZO BALTAZAR #### [facility] [address] [place] [id number] Sodium [Moles/Vol] 141 mmol/L Normal 136-145 [facility] Comment on above: Performed By: #### A LORENZO BALTAZAR #### [facility] [address] [place] [address] Urea nitrogen [Mass/Vol] 46.0 mg/dL High 8.0-22.0 [facility] Comment on above: Performed By: #### A LORENZO BALTAZAR #### [facility] [address] [place] [id number] XR CHEST 1 VIEWon 11-07-2024 XR CHEST 1 VIEW ORIGINAL EXAMINATION: ONE XRAY VIEW OF THE CHEST 11/07/2024 5:35 am COMPARISON: Chest x-ray on 11/06/2024 HISTORY: ORDERING SYSTEM PROVIDED HISTORY: Reason for Exam: abnormal breath sounds FINDINGS: The endotracheal tube and the enteric tube have been removed. Left subclavian central venous catheter tip is in the superior vena cava. Right internal jugular dialysis catheter tip is in the right atrium. Mediastinal drain and left chest tube are unchanged. The heart size is normal. There is patchy atelectasis in left mid and lower lung zone, similar to the prior day. There is no right lung infiltrate. There is no significant pleural fluid and no pneumothorax. IMPRESSION: 1. Extubation and removal of enteric tube. 2. Persistent left mid and lower lung zone atelectasis. Interpreted by: Lorenzo Mccarthy MD Preliminary Report By: Lorenzo Mccarthy MD Electronically signed By Lorenzo Mccarthy MD Dictated Date: 11/07/2024 5:47:46 AM Prelim Date: 11/07/2024 5:49:30 AM Sign Date: 11/07/2024 5:49:30 AM Ordering Provider: CARMELITA Carlisle [facility] .Auto Diffon 11-06-2024 Basophil, Absolute 0.0 10 3/mcL Normal 0.0-0.3 [facility] Comment on above: Performed By: #### G FR, MG, CMP #### [address] [address] Basophils/100 WBC (Bld) 0.3 % Normal 0.0-2.5 [place] [facility] Comment on above: Performed By: #### G FR, MG, CMP #### [address] [address] Eosinophil, Absolute 0.1 10 3/mcL Normal 0.0-0.7 [facility] Comment on above: Performed By: #### G FR, MG, CMP #### [address] [address] Eosinophils/100 WBC (Bld) 1.2 % Normal 0.0-6.0 [facility] Comment on above: Performed By: #### G FR, MG, CMP #### [address] [address] Lymphocyte, Absolute 1.7 10 3/mcL Normal 0.9-4.3 [facility] Comment on above: Performed By: #### G FR, MG, CMP #### [address] [address] Lymphocytes/100 WBC (Bld) 15.3 % Low 20.0-40.0 [facility] Comment on above: Performed By: #### G FR, MG, CMP #### [address] [address] Monocyte, Absolute 0.4 10 3/mcL Normal 0.1-1.4 [facility] Comment on above: Performed By: #### G FR, MG, CMP #### [address] [address] Monocytes/100 WBC (Bld) 3.3 % Normal 2.0-13.0 [place] [facility] Comment on above: Performed By: #### G FR, MG, CMP #### [address] [address] Neutrophils/100 WBC (Bld) 79.9 % High 50.0-75.0 [facility] Comment on above: Performed By: #### G FR, MG, CMP #### [address] [address] Basophil, Absolute 0.1 10 3/mcL Normal 0.0-0.3 [facility] Comment on above: Performed By: #### A LORENZO BALTAZAR #### [address] [address] Basophils/100 WBC (Bld) 0.9 % Normal 0.0-2.5 [place] [facility] Comment on above: Performed By: #### A LORENZO BALTAZAR #### [address] [address] Eosinophil, Absolute 0.2 10 3/mcL Normal 0.0-0.7 [facility] Comment on above: Performed By: #### A LORENZO BALTAZAR #### [address] [address] Eosinophils/100 WBC (Bld) 2.8 % Normal 0.0-6.0 [facility] Comment on above: Performed By: #### A LORENZO BALTAZAR #### [address] [address] Lymphocyte, Absolute 1.4 10 3/mcL Normal 0.9-4.3 [facility] Comment on above: Performed By: #### A LORENZO BALTAZAR #### [address] [address] Lymphocytes/100 WBC (Bld) 24.6 % Normal 20.0-40.0 [facility] Comment on above: Performed By: #### A LORENZO BALTAZAR #### [address] [address] Monocyte, Absolute 0.5 10 3/mcL Normal 0.1-1.4 [facility] Comment on above: Performed By: #### A LORENZO BALTAZAR #### [address] [address] Monocytes/100 WBC (Bld) 8.2 % Normal 2.0-13.0 [place] [facility] Comment on above: Performed By: #### A LORENZO BALTAZAR #### [address] [address] Neutrophils/100 WBC (Bld) 63.5 % Normal 50.0-75.0 [facility] Comment on above: Performed By: #### A LORENZO BALTAZAR #### [facility] [address] [place] [address] .GFRon 11-06-2024 GFR 18 ml/min/1.73sqm [facility] Comment on above: Result Comment: GFR Population mean for , Non- Americans Ages 20-29 = 116 mL/min/1.73 sq.m. Ages 30-39 = 107 mL/min/1.73 sq.m. Ages 40-49 = 99 mL/min/1.73 sq.m. Ages 50-59 = 93 mL/min/1.73 sq.m. Ages 60-69 = 85 mL/min/1.73 sq.m. Ages 70+ = 75 mL/min/1.73 sq.m. Chronic Kidney Disease: Less than 60 mL/min/1.73 square meters End Stage Renal Disease: Less than 15 mL/min/1.73 square meters Performed By: #### G FR, MG, CMP #### [address] [address] GFR Non- 15 ml/min/1.73sqm [facility] Comment on above: Result Comment: GFR Population mean for , Non- Americans Ages 20-29 = 116 mL/min/1.73 sq.m. Ages 30-39 = 107 mL/min/1.73 sq.m. Ages 40-49 = 99 mL/min/1.73 sq.m. Ages 50-59 = 93 mL/min/1.73 sq.m. Ages 60-69 = 85 mL/min/1.73 sq.m. Ages 70+ = 75 mL/min/1.73 sq.m. Chronic Kidney Disease: Less than 60 mL/min/1.73 square meters End Stage Renal Disease: Less than 15 mL/min/1.73 square meters Performed By: #### G FR, MG, CMP #### [place] [id number] [place] [address] GFR Non- 13 ml/min/1.73sqm [facility] Comment on above: Result Comment: GFR Population mean for , Non- Americans Ages 20-29 = 116 mL/min/1.73 sq.m. Ages 30-39 = 107 mL/min/1.73 sq.m. Ages 40-49 = 99 mL/min/1.73 sq.m. Ages 50-59 = 93 mL/min/1.73 sq.m. Ages 60-69 = 85 mL/min/1.73 sq.m. Ages 70+ = 75 mL/min/1.73 sq.m. Chronic Kidney Disease: Less than 60 mL/min/1.73 square meters End Stage Renal Disease: Less than 15 mL/min/1.73 square meters Performed By: #### A LORENZO BALTAZAR #### [address] [address] GFR 15 ml/min/1.73sqm [facility] Comment on above: Result Comment: GFR Population mean for , Non- Americans Ages 20-29 = 116 mL/min/1.73 sq.m. Ages 30-39 = 107 mL/min/1.73 sq.m. Ages 40-49 = 99 mL/min/1.73 sq.m. Ages 50-59 = 93 mL/min/1.73 sq.m. Ages 60-69 = 85 mL/min/1.73 sq.m. Ages 70+ = 75 mL/min/1.73 sq.m. Chronic Kidney Disease: Less than 60 mL/min/1.73 square meters End Stage Renal Disease: Less than 15 mL/min/1.73 square meters Performed By: #### A BSCEFERINO MOTTAGEL #### [address] [address] .NEUABSon 11-06-2024 Neutrophil, Absolute 8.9 10 3/mcL High 2.3-8.1 [facility] Comment on above: Performed By: #### G FR, MG, CMP #### [address] [address] Neutrophil, Absolute 3.7 10 3/mcL Normal 2.3-8.1 [facility] Comment on above: Performed By: #### A BSLORENZO MOTTA #### [address] [address] APTTon 11-06-2024 aPTT Coag (Bld) [Time] 25.5 s Normal 25.0-35.0 [facility] Comment on above: Result Comment: For Heparin anticoagulation therapy, the recommended therapeutic range is: 54-77 seconds (APTT Correlation with Anti-Xa therapeutic range of 0.3-0.7 units/ml). PLEASE REFERENCE THE PHARMACY PROTOCOL FOR DOSING. Performed By: #### A CEFERINO BALTAZARGEL #### [place] [id number] aPTT Coag (Bld) [Time] 54.5 s High 25.0-35.0 [facility] Comment on above: Result Comment: For Heparin anticoagulation therapy, the recommended therapeutic range is: 54-77 seconds (APTT Correlation with Anti-Xa therapeutic range of 0.3-0.7 units/ml). PLEASE REFERENCE THE PHARMACY PROTOCOL FOR DOSING. Performed By: #### A LORENZO BALTAZAR #### [place] [address] BGon 11-06-2024 Base Excess See comment Normal [facility] Comment on above: Order Comment: 2LNC Result Comment: The system has an atypical response when measuring this parameter. Unable to result. Suggest repeat order. Performed By: #### G FR, MG, CMP #### [address] [address] CO2 [Moles/Vol] 27.1 mmol/L Normal 22.0-30.0 [facility] Comment on above: Order Comment: 2LNC Performed By: #### G FR, MG, CMP #### [address] [address] HCO3 (Bld) [Moles/Vol] 25.6 mmol/L Normal 21.0-29.0 [place] [facility] Comment on above: Order Comment: 2LNC Performed By: #### G FR, MG, CMP #### [place] [id number] Oxygen (Bld) [Partial pressure] 156.8 mm[Hg] High 74.0-108.0 [facility] Comment on above: Order Comment: 2LNC Performed By: #### G FR, MG, CMP #### [place] [address] Oxygen saturation in Blood 99.1 % High 92.0-96.0 [facility] Comment on above: Order Comment: 2LNC Performed By: #### G FR, MG, CMP #### [place] [address] pCO2 46.2 mmHg High 32.0-46.0 [facility] Comment on above: Order Comment: 2LNC Performed By: #### G FR, MG, CMP #### [place] [address] pH (Bld) 7.362 [pH] Low 7.380-7.460 [facility] Comment on above: Order Comment: 2LNC Performed By: #### G FR, MG, CMP #### [place] [address] Base excess Calc (Bld) [Moles/Vol] 0.2 mmol/L Normal [facility] Comment on above: Order Comment: 6LNC post extubation Performed By: #### A LORENZO BALTAZAR #### [place] [address] CO2 [Moles/Vol] 27.3 mmol/L Normal 22.0-30.0 [facility] Comment on above: Order Comment: 6LNC post extubation Performed By: #### A LORENZO BALTAZAR #### [place] [address] Order Comment: cpap trial HCO3 (Bld) [Moles/Vol] 25.9 mmol/L Normal 21.0-29.0 [place] [facility] Comment on above: Order Comment: 6LNC post extubation Performed By: #### A LORENZO BALTAZAR #### [place] [address] Order Comment: cpap trial Oxygen (Bld) [Partial pressure] 220.7 mm[Hg] High 74.0-108.0 [facility] Comment on above: Order Comment: 6LNC post extubation Performed By: #### A LORENZO BALTAZAR #### [address] [address] Oxygen saturation in Blood 98.9 % High 92.0-96.0 [facility] Comment on above: Order Comment: 6LNC post extubation Performed By: #### A LORENZO BALTAZAR #### [address] [address] pCO2 47.2 mmHg High 32.0-46.0 [facility] Comment on above: Order Comment: 6LNC post extubation Performed By: #### A LORENZO BALTAZAR #### [address] [address] pH (Bld) 7.357 [pH] Low 7.380-7.460 [facility] Comment on above: Order Comment: 6LNC post extubation Performed By: #### A LORENZO BALTAZAR #### [address] [address] Base excess Calc (Bld) [Moles/Vol] 0.6 mmol/L [facility] Comment on above: Order Comment: cpap trial Performed By: #### A LORENZO BALTAZAR #### [address] [address] Oxygen (Bld) [Partial pressure] 172.1 mm[Hg] High 74.0-108.0 [facility] Comment on above: Order Comment: cpap trial Performed By: #### A LORENZO BALTZAAR #### [address] [address] pH (Bld) 7.379 [pH] Low 7.380-7.460 [facility] Comment on above: Order Comment: cpap trial Performed By: #### A LORENZO BALTAZAR #### [address] [address] Base excess Calc (Bld) [Moles/Vol] -5.0000 mmol/L [facility] Comment on above: Performed By: #### A LORENZO BALTAZAR #### [address] [address] CO2 [Moles/Vol] 20.3 mmol/L Low 22.0-30.0 [facility] Comment on above: Performed By: #### A LORENZO BALTAZAR #### [address] [address] HCO3 (Bld) [Moles/Vol] 19.3 mmol/L Low 21.0-29.0 [place] [facility] Comment on above: Performed By: #### A LORENZO BALTAZAR #### [address] [address] Oxygen (Bld) [Partial pressure] 167.2 mm[Hg] High 74.0-108.0 [facility] Comment on above: Performed By: #### A LORENZO BALTAZAR #### [address] [address] Oxygen saturation in Blood 98.9 % High 92.0-96.0 [facility] Comment on above: Performed By: #### A LORENZO BALTAZAR #### [address] [address] pCO2 32.9 mmHg Normal 32.0-46.0 [facility] Comment on above: Performed By: #### A LORENZO BALTAZAR #### [address] [address] pH (Bld) 7.387 [pH] Normal 7.380-7.460 [facility] Comment on above: Performed By: #### A LORENZO BALTAZAR #### [address] [address] Base excess Calc (Bld) [Moles/Vol] -4.7000 mmol/L [facility] Comment on above: Performed By: #### A LORENZO BALTAZAR #### [address] [address] CO2 [Moles/Vol] 20.8 mmol/L Low 22.0-30.0 [facility] Comment on above: Performed By: #### A LORENZO BALTAZAR #### [address] [address] HCO3 (Bld) [Moles/Vol] 19.8 mmol/L Low 21.0-29.0 [place] [facility] Comment on above: Performed By: #### A LORENZO BALTAZAR #### [address] [address] Oxygen (Bld) [Partial pressure] 326.5 mm[Hg] High 74.0-108.0 [facility] Comment on above: Performed By: #### A LORENZO BALTAZAR #### [address] [address] Oxygen saturation in Blood 99.4 % High 92.0-96.0 [facility] Comment on above: Performed By: #### A LORENZO BALTAZAR #### [address] [address] pCO2 34.1 mmHg Normal 32.0-46.0 [facility] Comment on above: Performed By: #### A LORENZO BALTAZAR #### [address] [address] pH (Bld) 7.381 [pH] Normal 7.380-7.460 [facility] Comment on above: Performed By: #### A LORENZO BALTAZAR #### [address] [address] BGRPon 11-06-2024 Base Excess - POC -5.3 mmol/L Normal [facility] Comment on above: Performed By: #### A LORENZO BALTAZAR #### [address] [address] CO2 [Moles/Vol] 21.1 mmol/L Low 22.0-30.0 [facility] Comment on above: Performed By: #### A LORENZO BALTAZAR #### [address] [address] HCO3 (Bld) [Moles/Vol] 20.0 mmol/L Low 21.0-29.0 [place] [facility] Comment on above: Performed By: #### A LORENZO BALTAZAR #### [address] [address] Oxygen saturation in Blood 99.4 % High 92.0-96.0 [facility] Comment on above: Performed By: #### A LORENZO BALTAZAR #### [address] [address] PCO2 - POC 37.7 mmHg Normal 32.0-46.0 [facility] Comment on above: Performed By: #### A LORENZO BALTAZAR #### [address] [address] pH (poct) - POC 7.342 Low 7.380-7.460 [facility] Comment on above: Performed By: #### A LORENZO BALTAZAR #### [address] [address] PO2 - POC 475.5 mmHg High 74.0-108.0 [facility] Comment on above: Performed By: #### A LORENZO BALTAZAR #### [place] [id number] Base Excess - POC -1.7 mmol/L Normal [facility] Comment on above: Performed By: #### R BCP #### [address] [address] CO2 [Moles/Vol] 22.8 mmol/L Normal 22.0-30.0 [facility] Comment on above: Performed By: #### R BCP #### [address] [address] HCO3 (Bld) [Moles/Vol] 21.8 mmol/L Normal 21.0-29.0 [place] [facility] Comment on above: Performed By: #### R BCP #### [address] [address] Oxygen saturation in Blood 99.6 % High 92.0-96.0 [facility] Comment on above: Performed By: #### R BCP #### [address] [address] PCO2 - POC 31.5 mmHg Low 32.0-46.0 [facility] Comment on above: Performed By: #### R BCP #### [address] [address] pH (poct) - POC 7.459 Normal 7.380-7.460 [facility] Comment on above: Performed By: #### R BCP #### [address] [address] PO2 - POC 484.2 mmHg High 74.0-108.0 [facility] Comment on above: Performed By: #### R BCP #### [address] [address] Base Excess - POC -2.8 mmol/L Normal [facility] Comment on above: Performed By: #### A LORENZO BALTAZAR #### [address] [address] CO2 [Moles/Vol] 23.1 mmol/L Normal 22.0-30.0 [facility] Comment on above: Performed By: #### A LORENZO BALTAZAR #### [address] [address] HCO3 (Bld) [Moles/Vol] 22.0 mmol/L Normal 21.0-29.0 [place] [facility] Comment on above: Performed By: #### A LORENZO BALTAZAR #### [place] [id number] Oxygen saturation in Blood 99.5 % High 92.0-96.0 [facility] Comment on above: Performed By: #### A LORENZO BALTAZAR #### [address] [address] PCO2 - POC 37.4 mmHg Normal 32.0-46.0 [facility] Comment on above: Performed By: #### A LORENZO BALTAZAR #### [address] [address] pH (poct) - POC 7.387 Normal 7.380-7.460 [facility] Comment on above: Performed By: #### A LORENZO BALTAZAR #### [address] [address] PO2 - POC 514.3 mmHg High 74.0-108.0 [facility] Comment on above: Performed By: #### A LORENZO BALTAZAR #### [place] [id number] Base Excess - POC -5.4 mmol/L Normal [facility] Comment on above: Performed By: #### A LORENZO BALTAZAR #### [address] [address] CO2 [Moles/Vol] 20.0 mmol/L Low 22.0-30.0 [facility] Comment on above: Performed By: #### A LORENZO BALTAZAR #### [address] [address] HCO3 (Bld) [Moles/Vol] 19.0 mmol/L Low 21.0-29.0 [place] [facility] Comment on above: Performed By: #### A LORENZO BALTAZAR #### [address] [address] Oxygen saturation in Blood 99.7 % High 92.0-96.0 [facility] Comment on above: Performed By: #### A LORENZO BALTAZAR #### [address] [address] PCO2 - POC 32.5 mmHg Normal 32.0-46.0 [facility] Comment on above: Performed By: #### A LORENZO BALTAZAR #### [address] [address] pH (poct) - POC 7.385 Normal 7.380-7.460 [facility] Comment on above: Performed By: #### A LORENZO BALTAZAR #### [address] [address] PO2 - POC 516.0 mmHg High 74.0-108.0 [facility] Comment on above: Performed By: #### A LORENZO BALTAZAR #### [address] [address] Base Excess - POC -3.3 mmol/L Normal [facility] Comment on above: Performed By: #### A LORENZO BALTAZAR #### [address] [address] CO2 [Moles/Vol] 22.7 mmol/L Normal 22.0-30.0 [facility] Comment on above: Performed By: #### A LORENZO BALTAZAR #### [address] [address] HCO3 (Bld) [Moles/Vol] 21.6 mmol/L Normal 21.0-29.0 [place] [facility] Comment on above: Performed By: #### A LORENZO BALTAZAR #### [address] [address] Oxygen saturation in Blood 99.4 % High 92.0-96.0 [facility] Comment on above: Performed By: #### A LORENZO BALTAZAR #### [place] [id number] PCO2 - POC 37.9 mmHg Normal 32.0-46.0 [facility] Comment on above: Performed By: #### A LORENZO BALTAZAR #### [place] [id number] pH (poct) - POC 7.373 Low 7.380-7.460 [facility] Comment on above: Performed By: #### A LORENZO BALTAZAR #### [place] [id number] PO2 - POC 558.7 mmHg High 74.0-108.0 [facility] Comment on above: Performed By: #### A LORENZO BALTAZAR #### [place] [id number] Base Excess - POC -2.7 mmol/L Normal [facility] Comment on above: Performed By: #### A LORENZO BALTAZAR #### [address] [address] CO2 [Moles/Vol] 23.6 mmol/L Normal 22.0-30.0 [facility] Comment on above: Performed By: #### A LORENZO BALTAZAR #### [address] [address] HCO3 (Bld) [Moles/Vol] 22.4 mmol/L Normal 21.0-29.0 [place] [facility] Comment on above: Performed By: #### A LORENZO BALTAZAR #### [facility] [address] [place], [place] [address] Oxygen saturation in Blood 99.9 % High 92.0-96.0 [facility] Comment on above: Performed By: #### A LORENZO BALTAZAR #### [place] [id number] PCO2 - POC 40.1 mmHg Normal 32.0-46.0 [facility] Comment on above: Performed By: #### A LORENZO BALTAZAR #### [place] [id number] pH (poct) - POC 7.365 Low 7.380-7.460 [facility] Comment on above: Performed By: #### A LORENZO BALTAZAR #### [place] [address] PO2 - POC 553.7 mmHg High 74.0-108.0 [facility] Comment on above: Performed By: #### A LORENZO BALTAZAR #### [place] [id number] Base Excess - POC -3.4 mmol/L Normal [facility] Comment on above: Performed By: #### A LORENZO BALTAZAR #### [place] [id number] CO2 [Moles/Vol] 22.0 mmol/L Normal 22.0-30.0 [facility] Comment on above: Performed By: #### A LORENZO BALTAZAR #### [place] [id number] HCO3 (Bld) [Moles/Vol] 20.9 mmol/L Low 21.0-29.0 [place] [facility] Comment on above: Performed By: #### A LORENZO BALTAZAR #### [place] [id number] Oxygen saturation in Blood 99.8 % High 92.0-96.0 [facility] Comment on above: Performed By: #### A LORENZO BALTAZAR #### [place] [id number] PCO2 - POC 35.3 mmHg Normal 32.0-46.0 [facility] Comment on above: Performed By: #### A LORENZO BALTAZAR #### [address] [address] pH (poct) - POC 7.391 Normal 7.380-7.460 [facility] Comment on above: Performed By: #### A LORENZO BALTAZAR #### [address] [address] PO2 - POC 476.5 mmHg High 74.0-108.0 [facility] Comment on above: Performed By: #### A LORENZO BALTAZAR #### [address] [address] BMPon 11-06-2024 BUN/Creatinine Ratio 10.4 ratio Normal 10.0-22.0 [facility] Comment on above: Performed By: #### R BCP #### [address] [address] Calcium [Mass/Vol] 8.2 mg/dL Low 8.7-10.4 [facility] Comment on above: Performed By: #### R BCP #### [address] [address] Chloride [Moles/Vol] 108 mmol/L Normal 98-110 [facility] Comment on above: Performed By: #### R BCP #### [address] [address] CO2 [Moles/Vol] 23 mmol/L Normal 22-32 [facility] Comment on above: Performed By: #### R BCP #### [place] [id number] Creatinine [Mass/Vol] 4.14 mg/dL High 0.60-1.40 [facility] Comment on above: Result Comment: Test ing performed on Zannel analyzer using enzymatic creatinine methodology. Performed By: #### R BCP #### [place] [id number] Electrolyte Balance 12.0 mEq/L Normal 4.0-15.0 [facility] Comment on above: Performed By: #### R BCP #### [place] [id number] Glucose [Mass/Vol] 182 mg/dL High 82-115 [facility] Comment on above: Performed By: #### R BCP #### [address] [address] Potassium [Moles/Vol] 4.5 mmol/L Normal 3.5-5.0 [facility] Comment on above: Performed By: #### R BCP #### [address] [address] Sodium [Moles/Vol] 143 mmol/L Normal 136-145 [facility] Comment on above: Performed By: #### R BCP #### [address] [address] Urea nitrogen [Mass/Vol] 43.0 mg/dL High 8.0-22.0 [facility] Comment on above: Performed By: #### R BCP #### [address] [address] BUN/Creatinine Ratio 11.3 ratio Normal 10.0-22.0 [facility] Comment on above: Performed By: #### A LORENZO BALTAZAR #### [address] [address] Calcium [Mass/Vol] 8.7 mg/dL Normal 8.7-10.4 [facility] Comment on above: Performed By: #### A LORENZO BALTAZAR #### [address] [address] Chloride [Moles/Vol] 104 mmol/L Normal 98-110 [facility] Comment on above: Performed By: #### A LORENZO BALTAZAR #### [address] [address] CO2 [Moles/Vol] 26 mmol/L Normal 22-32 [facility] Comment on above: Performed By: #### A LORENZO BALTAZAR #### [address] [address] Creatinine [Mass/Vol] 4.70 mg/dL High 0.60-1.40 [facility] Comment on above: Result Comment: Test ing performed on Zannel analyzer using enzymatic creatinine methodology. Performed By: #### A LORENZO BALTAZAR #### [address] [address] Electrolyte Balance 7.0 mEq/L Normal 4.0-15.0 [facility] Comment on above: Performed By: #### A LORENZO BALTAZAR #### [address] [address] Glucose [Mass/Vol] 211 mg/dL High 82-115 [facility] Comment on above: Performed By: #### A LORENZO BALTAZAR #### [place] [address] Potassium [Moles/Vol] 4.1 mmol/L Normal 3.5-5.0 [facility] Comment on above: Performed By: #### A LORENZO BALTAZAR #### [place] [address] Sodium [Moles/Vol] 137 mmol/L Normal 136-145 [facility] Comment on above: Performed By: #### A LORENZO BALTAZAR #### [place] [id number] Urea nitrogen [Mass/Vol] 53.0 mg/dL High 8.0-22.0 [facility] Comment on above: Performed By: #### A LORENZO BALTAZAR #### [place] [address] CAIONon 11-06-2024 Calcium Ionized 1.14 mmol/L Normal 1.12-1.32 [facility] Comment on above: Performed By: #### R BCP #### [address] [address] CARPon 11-06-2024 Ionized Calcium - POC 1.12 mmol/L Normal 1.12-1.32 [facility] Comment on above: Performed By: #### A LORENZO BALTAZAR #### [place] [id number] Ionized Calcium - POC 1.21 mmol/L Normal 1.12-1.32 [facility] Comment on above: Performed By: #### C SIGIFREDO, NARP, BGRP, HCTRP, CLRP, KRP, HGBRP, GLURP ####[address] [address] Ionized Calcium - POC 1.01 mmol/L Low 1.12-1.32 [facility] Comment on above: Performed By: #### R BCP #### [address] [address] Ionized Calcium - POC 1.02 mmol/L Low 1.12-1.32 [facility] Comment on above: Performed By: #### A BSÁNGELA, ABOGEL #### [place] [address] Ionized Calcium - POC 1.04 mmol/L Low 1.12-1.32 [facility] Comment on above: Performed By: #### A BSÁNGELA, ABOGEL #### [place] [address] Ionized Calcium - POC 1.18 mmol/L Normal 1.12-1.32 [facility] Comment on above: Performed By: #### A DELANEY ABOGEL #### [place] [address] Ionized Calcium - POC 1.19 mmol/L Normal 1.12-1.32 [facility] Comment on above: Performed By: #### A DELANEY, ABOGEL #### [address] [address] CBCon 11-06-2024 Erythrocyte distribution width (RBC) [Ratio] 14.2 % Normal 11.5-15.5 [facility] Comment on above: Performed By: #### G FR, MG, CMP #### [address] [address] Hematocrit (Bld) [Volume fraction] 26.2 % Low 40.0-52.0 [facility] Comment on above: Performed By: #### G FR, MG, CMP #### [place] [id number] Hgb 8.9 G/dL Low 13.0-17.5 [facility] Comment on above: Performed By: #### G FR, MG, CMP #### [place] [address] MCH (RBC) [Entitic mass] 27.8 pg Normal 27.0-33.0 [facility] Comment on above: Performed By: #### G FR MG, CMP #### [place] [address] MCHC 33.9 G/dL Normal 32.0-36.0 [facility] Comment on above: Performed By: #### G FR, MG, CMP #### [place] [address] MCV (RBC) [Entitic vol] 82.0 fL Normal 81.0-100.0 [place] [facility] Comment on above: Performed By: #### G FR MG, CMP #### [place] [address] Platelet 134 10 3/mcL Low 150-450 [facility] Comment on above: Performed By: #### G FR, MG, CMP #### [place] [address] Platelet mean volume (Bld) [Entitic vol] 7.3 fL Normal 6.4-10.5 [facility] Comment on above: Performed By: #### G FR MG, CMP #### [place] [address] RBC 3.19 10 6/mcL Low 4.50-6.00 [facility] Comment on above: Performed By: #### G FR, MG, CMP #### [place] [address] WBC 11.1 10 3/mcL High 4.5-10.8 [facility] Comment on above: Performed By: #### G FR, MG, CMP #### [place] [address] Erythrocyte distribution width (RBC) [Ratio] 13.6 % Normal 11.5-15.5 [facility] Comment on above: Performed By: #### A LORENZO BALTAZAR #### [place] [address] Hematocrit (Bld) [Volume fraction] 32.3 % Low 40.0-52.0 [facility] Comment on above: Performed By: #### A LORENZO BALTAZAR #### [place] [address] Hgb 11.0 G/dL Low 13.0-17.5 [facility] Comment on above: Performed By: #### A BSCEFERINO MOTTAGEL #### [place] [address] MCH (RBC) [Entitic mass] 27.4 pg Normal 27.0-33.0 [facility] Comment on above: Performed By: #### A LORENZO BALTAZAR #### [place] [address] MCHC 34.1 G/dL Normal 32.0-36.0 [facility] Comment on above: Performed By: #### A LORENZO BALTAZAR #### [place] [address] MCV (RBC) [Entitic vol] 80.4 fL Low 81.0-100.0 [place] [facility] Comment on above: Performed By: #### A LORENZO BALTAZAR #### [place] [address] Platelet 185 10 3/mcL Normal 150-450 [facility] Comment on above: Performed By: #### A LORENZO BALTAZAR #### [place] [address] Platelet mean volume (Bld) [Entitic vol] 7.3 fL Normal 6.4-10.5 [facility] Comment on above: Performed By: #### A BSLORENZO MOTTA #### [place] [address] RBC 4.02 10 6/mcL Low 4.50-6.00 [facility] Comment on above: Performed By: #### A BSLORENZO MOTTA #### [place] [id number] WBC 5.9 10 3/mcL Normal 4.5-10.8 [facility] Comment on above: Performed By: #### A LORENZO BALTAZAR #### [address] [facility] Chloride [Moles/Vol] 106 mmol/L Normal 98-110 [facility] Comment on above: Performed By: #### A LORENZO BALTAZAR #### [address] [address] Chloride [Moles/Vol] 107 mmol/L Normal 98-110 [facility] Comment on above: Performed By: #### R BCP #### [address] [address] Chloride [Moles/Vol] 106 mmol/L Normal 98-110 [facility] Comment on above: Performed By: #### R BCP #### [address] [address] Chloride [Moles/Vol] 107 mmol/L Normal 98-110 [facility] Comment on above: Performed By: #### A LORENZO BALTAZAR #### [address] [address] Chloride [Moles/Vol] 103 mmol/L Normal 98-110 [facility] Comment on above: Performed By: #### A LORENZO BALTAZAR #### [address] [address] Chloride [Moles/Vol] 105 mmol/L Normal 98-110 [facility] Comment on above: Performed By: #### A LORENZO BALTAZAR #### [address] [address] Chloride [Moles/Vol] 104 mmol/L Normal 98-110 [facility] Comment on above: Performed By: #### A LORENZO BALTAZAR #### [address] [address] FIBon 11-06-2024 Fibrinogen 345 mg/dL Normal 250-560 [facility] Comment on above: Performed By: #### A CEFERINO BALTAZARGEL #### [address] [address] [facility] 11-06-2024 Glucose [Mass/Vol] 157 mg/dL High 82-115 [facility] Comment on above: Performed By: #### A CEFERINO BALTAZARGEL #### [address] [address] Glucose [Mass/Vol] 127 mg/dL High [facility]115 [facility] Comment on above: Performed By: #### C SIGIFREDO, NARP, BGRP, HCTRP, CLRP, KRP, HGBRP, GLURP ####[address] [address] Glucose [Mass/Vol] 124 mg/dL High 82-115 [facility] Comment on above: Performed By: #### R BCP #### [address] [address] Glucose [Mass/Vol] 113 mg/dL Normal [address] [place] [address] MAIN Comment on above: Performed By: #### A LORENZO BALTAZAR #### [address] [address] Glucose [Mass/Vol] 136 mg/dL High [facility]115 [facility] Comment on above: Performed By: #### A CEFERINO BALTAZARGEL #### [address] [address] Glucose [Mass/Vol] 152 mg/dL High [address] [place] [address] MAIN Comment on above: Performed By: #### A LORENZO BALTAZAR #### [address] [address] Glucose [Mass/Vol] 143 mg/dL High -115 [facility] Comment on above: Performed By: #### A LORENZO BALTAZAR #### [address] [address] HCTRPon 11-06-2024 Hematocrit (Bld) [Volume fraction] 28.0 % Low 42.0-52.0 [facility] Comment on above: Performed By: #### A BSLORENZO MOTTA #### [address] [address] Hematocrit (Bld) [Volume fraction] 21.0 % Low 42.0-52.0 [facility] Comment on above: Performed By: #### C SIGIFREDO, NARP, BGRP, HCTRP, CLRP, KRP, HGBRP, GLURP ####[address] [address] Hematocrit (Bld) [Volume fraction] 21.0 % Low 42.0-52.0 [facility] Comment on above: Performed By: #### R BCP #### [address] [address] Hematocrit (Bld) [Volume fraction] 21.0 % Low 42.0-52.0 [facility] Comment on above: Performed By: #### A BSGEL, ABOGEL #### [address] [address] Hematocrit (Bld) [Volume fraction] 23.0 % Low 42.0-52.0 [facility] Comment on above: Performed By: #### A BSGEL, ABOGEL #### [address] [address] Hematocrit (Bld) [Volume fraction] 33.0 % Low 42.0-52.0 [facility] Comment on above: Performed By: #### A BSGEL, ABOGEL #### [address] [address] Hematocrit (Bld) [Volume fraction] 34.0 % Low 42.0-52.0 [facility] Comment on above: Performed By: #### A BSGEL, ABOGEL #### [address] [address] HGBRPon 11-06-2024 Hemoglobin (POC) 9.5 G/dL Low 13.0-17.5 [facility] Comment on above: Performed By: #### A BSGEL, ABOGEL #### [address] [address] Hemoglobin (POC) 7.2 G/dL Low 13.0-17.5 [facility] Comment on above: Performed By: #### R BCP #### [address] [address] Hemoglobin (POC) 7.0 G/dL Low 13.0-17.5 [facility] Comment on above: Performed By: #### R BCP #### [address] [address] Hemoglobin (POC) 7.2 G/dL Low 13.0-17.5 [facility] Comment on above: Performed By: #### A LORENZO BALTAZAR #### [address] [address] Hemoglobin (POC) 7.9 G/dL Low 13.0-17.5 [facility] Comment on above: Performed By: #### A LORENZO BALTAZAR #### [address] [address] Hemoglobin (POC) 11.1 G/dL Low 13.0-17.5 [facility] Comment on above: Performed By: #### A LORENZO BALTAZAR #### [address] [address] Hemoglobin (POC) 11.6 G/dL Low 13.0-17.5 [facility] Comment on above: Performed By: #### A LORENZO BALTAZAR #### [address] [address] [place] 11-06-2024 Potassium [Moles/Vol] 4.2 mmol/L Normal 3.5-5.0 [facility] Comment on above: Performed By: #### A LORENZO BALTAZAR #### [address] [address] KRPon 11-06-2024 Potassium [Moles/Vol] 4.5 mmol/L Normal 3.5-5.0 [facility] Comment on above: Performed By: #### A LORENZO BALTAZAR #### [address] [address] Potassium [Moles/Vol] 4.6 mmol/L Normal 3.5-5.0 [facility] Comment on above: Performed By: #### C SIGIFREDO, NARP, BGRP, HCTRP, CLRP, KRP, HGBRP, GLURP ####[address] [address] Potassium [Moles/Vol] 4.8 mmol/L Normal 3.5-5.0 [facility] Comment on above: Performed By: #### R BCP #### [address] [address] Potassium [Moles/Vol] 4.4 mmol/L Normal 3.5-5.0 [facility] Comment on above: Performed By: #### A BSGEL, ABOGEL #### [address] [address] Potassium [Moles/Vol] 4.8 mmol/L Normal 3.5-5.0 [facility] Comment on above: Performed By: #### A BSGEL, ABOGEL #### [address] [address] Potassium [Moles/Vol] 4.4 mmol/L Normal 3.5-5.0 [facility] Comment on above: Performed By: #### A BSGEL, ABOGEL #### [address] [address] Potassium [Moles/Vol] 4.1 mmol/L Normal 3.5-5.0 [facility] Comment on above: Performed By: #### A BSGEL, ABOGEL #### [address] [address] LABORATORYOrdered By: Argelia Perla on 11-06-2024 Base Excess See comment Invalid Interpretation Code Chemistry S Comment on above: Result Comment: The system has an atypical response when measuring this parameter. Unable to result. Suggest repeat order. CO2 [Moles/Vol] 27.1 mmol/L Normal 22.0 - 30.0 mmol/L [facility] HCO3 (Bld) [Moles/Vol] 25.6 mmol/L Normal 21.0 - 29.0 mmol/L [facility] Oxygen (Bld) [Partial pressure] 156.8 mm[Hg] High 74.0 - 108.0 mm Hg Main [facility] pCO2 46.2 mm[Hg] High 32.0 - 46.0 mm Hg Main [facility] pH (Bld) 7.362 [pH] Low 7.380 - 7.460 [facility] SS LABORATORYOrdered By: Nadeem Gomes on 11-06-2024 Blood Glucose Interventions Administered agent to increase blood sugar (11/06/24 10:30 PM) [facility] Work Phone: LABORATORYOrdered By: SYSTEM SYSTEM on 11-06-2024 aPTT Coag (Bld) [Time] 25.5 s Normal 25.0 - 35.0 seconds [facility] SS Comment on above: Interpretive Data: F or Heparin anticoagulation therapy, the recommended therapeutic range is: 54-77 seconds (APTT Correlation with Anti-Xa therapeutic range of 0.3-0.7 units/ml). PLEASE REFERENCE THE PHARMACY PROTOCOL FOR DOSING. Fibrinogen 345 mg/dL Normal 250 - 560 mg/dL [facility] SS Phosphate [Mass/Vol] 4.2 mg/dL Normal 2.4 - 5 .1 mg/dL ADM SS Comment on above: Interpretive Data: * *Note - New Reference Range in effect 20 PT Coag (PPP) [Time] 13.8 s Normal 9.0 - 1 4.4 seconds [facility] SS Comment on above: Interpretive Data: E ffective 06/10/08, Protime results may be affected by some antibiotics (i.e. Ciprofloxacin, Azithromycin, Bactrim) which may potentiate the action of oral anticoagulants, with further increases in Protime/INR. PT International Ratio 1.2 ratio Invalid Interpretation Code [facility] Comment on above: Interpretive Data: [employer] (CHEST, 1992, 102:312S-25S) recommended therapeutic range for oral anticoagulant therapy is: LOW RISK: Prophylaxis of venous thrombosis INR: 2.0-3.0 Treatment of pulmonary embolism 2.0-3.0 Prevention of systemic embolism 2.0-3.0 HIGH RISK: Mechanical prosthetic valves 2.5-3.5 Base Excess - POC -5.3 mmol/L Invalid Interpretation Code Rapid Comm SS Chloride [Moles/Vol] 106 mmol/L Normal 98 - 11 0 mEq/L AH [facility] SS CO2 [Moles/Vol] 21.1 mmol/L Low 22.0 - 30.0 mmol/L [facility] Glucose [Mass/Vol] 157 mg/dL High 82 - 115 mg/dL AH [facility] SS HCO3 (Bld) [Moles/Vol] 20.0 mmol/L Low 21.0 - 29.0 mmol/L AH [facility] SS Hematocrit (Bld) [Volume fraction] 28.0 % Low 42.0 - 52.0 % [facility] SS Hemoglobin (POC) 9.5 G/dL Low 13.0 - 17.5 G/dL [facility] SS Ionized Calcium - POC 1.12 mmol/L Normal 1.12 - 1.32 mmol/L [facility] SS Oxygen saturation in Blood 99.4 % High 92.0 - 96.0 % [facility] SS PCO2 - POC 37.7 mm[Hg] Normal 32.0 - 46.0 mm Hg [facility] SS pH (Bld) 7.342 [pH] Low 7.380 - 7.460 [facility] PO2 - POC 475.5 mm[Hg] High 74.0 - 108.0 mm Hg [facility] SS Potassium [Moles/Vol] 4.5 mmol/L Normal 3.5 - 5.0 mEq/L [facility] SS Sodium [Moles/Vol] 137 mmol/L Normal 136 - 145 mEq/L [facility] SS Base Excess - POC -1.7 mmol/L Invalid Interpretation Code Rapid [facility] SS Chloride [Moles/Vol] 107 mmol/L Normal 98 - 11 0 mEq/L [facility] CO2 [Moles/Vol] 22.8 mmol/L Normal 22.0 - 30.0 mmol/L [facility] SS Glucose [Mass/Vol] 127 mg/dL High 82 - 115 mg/dL [facility] HCO3 (Bld) [Moles/Vol] 21.8 mmol/L Normal 21.0 - 29.0 mmol/L [facility] SS Hematocrit (Bld) [Volume fraction] 21.0 % Low 42.0 - 52.0 % [facility] SS Hemoglobin (POC) 7.2 G/dL Low 13.0 - 17.5 G/dL [facility] SS Ionized Calcium - POC 1.21 mmol/L Normal 1.12 - 1.32 mmol/L [facility] SS Oxygen saturation in Blood 99.6 % High 92.0 - 96.0 % [facility] SS PCO2 - POC 31.5 mm[Hg] Low 32.0 - 46.0 mm Hg [facility] SS pH (Bld) 7.459 [pH] Normal 7.380 - 7.460 [facility] PO2 - POC 484.2 mm[Hg] High 74.0 - 108.0 mm Hg [facility] SS Potassium [Moles/Vol] 4.6 mmol/L Normal 3.5 - 5.0 mEq/L [facility] SS Sodium [Moles/Vol] 135 mmol/L Low 136 - 145 mEq/L [facility] SS Base Excess - POC -2.8 mmol/L Invalid Interpretation Code [facility] SS Chloride [Moles/Vol] 106 mmol/L Normal 98 - 11 0 mEq/L [facility] SS CO2 [Moles/Vol] 23.1 mmol/L Normal 22.0 - 30.0 mmol/L [facility] SS Glucose [Mass/Vol] 124 mg/dL High 82 - 115 mg/dL [facility] HCO3 (Bld) [Moles/Vol] 22.0 mmol/L Normal 21.0 - 29.0 mmol/L [facility] SS Hematocrit (Bld) [Volume fraction] 21.0 % Low 42.0 - 52.0 % [facility] SS Hemoglobin (POC) 7.0 G/dL Low 13.0 - 17.5 G/dL [facility] SS Ionized Calcium - POC 1.01 mmol/L Low 1.12 - 1.32 mmol/L [facility] SS Oxygen saturation in Blood 99.5 % High 92.0 - 96.0 % [facility] SS PCO2 - POC 37.4 mm[Hg] Normal 32.0 - 46.0 mm Hg [facility] SS pH (Bld) 7.387 [pH] Normal 7.380 - 7.460 [facility] SS PO2 - POC 514.3 mm[Hg] High 74.0 - 108.0 mm Hg [facility] SS Potassium [Moles/Vol] 4.8 mmol/L Normal 3.5 - 5.0 mEq/L [facility] SS Sodium [Moles/Vol] 136 mmol/L Normal 136 - 145 mEq/L [facility] SS aPTT Coag (Bld) [Time] 54.5 s High 25.0 - 35.0 seconds [facility] SS Comment on above: Interpretive Data: F or Heparin anticoagulation therapy, the recommended therapeutic range is: 54-77 seconds (APTT Correlation with Anti-Xa therapeutic range of 0.3-0.7 units/ml). PLEASE REFERENCE THE PHARMACY PROTOCOL FOR DOSING. LABORATORYOrdered By: Marisela Aguila on 11-06-2024 Calcium Ionized 1.14 mmol/L Normal 1.12 - 1.32 mmol/L AH Main [facility] SS LABORATORYOrdered By: Marina Anaya on 11-06-2024 Time of Stated Blood Glucose [id number] [facility] Work Phone: LABORATORYOrdered By: Marly Lujan on 11-06-2024 Platelet Product Ready Platelet Ready fo r Pickup (11/06/24 5:38 AM) Normal AH BB Manual SS MGon 11-06-2024 Magnesium [Mass/Vol] 3.2 mg/dL High 1.6-2.4 [facility] Comment on above: Performed By: #### R BCP #### [address] [address] Magnesium [Mass/Vol] 2.4 mg/dL Normal 1.6-2.4 [facility] Comment on above: Performed By: #### A LORENZO BALTAZAR #### [address] [address] NARPon 11-06-2024 Sodium [Moles/Vol] 137 mmol/L Normal 136-145 [facility] Comment on above: Performed By: #### A LORENZO BALTAZAR #### [address] [address] Sodium [Moles/Vol] 135 mmol/L Low 136-145 [facility] Comment on above: Performed By: #### C SIGIFREDO, NARP, BGRP, HCTRP, CLRP, KRP, HGBRP, GLURP ####[address] [address] Sodium [Moles/Vol] 136 mmol/L Normal 136-145 [facility] Comment on above: Performed By: #### R BCP #### [address] [address] Sodium [Moles/Vol] 133 mmol/L Low 136-145 [facility] Comment on above: Performed By: #### A LORENZO BALTAZAR #### [address] [address] Sodium [Moles/Vol] 132 mmol/L Low 136-145 [facility] Comment on above: Performed By: #### A BSGEL, ABOGEL #### [place] [id number] Sodium [Moles/Vol] 137 mmol/L Normal 136-145 [facility] Comment on above: Performed By: #### A BSGEL, ABOGEL #### [place] [id number] Sodium [Moles/Vol] 138 mmol/L Normal 136-145 [facility] Comment on above: Performed By: #### A BSGEL, ABOGEL #### [place] [id number] PHOSon 11-06-2024 Phosphate [Mass/Vol] 4.2 mg/dL Normal 2.4-5.1 [facility] Comment on above: Result Comment: No te - New Reference Range in effect 20 Performed By: #### G FR, MG, CMP #### [place] [id number] PROon 11-06-2024 INR Coag (PPP) [Relative time] 1.2 {INR} Normal [facility] Comment on above: Result Comment: [employer] (CHEST, 1992, 102:312S-25S) recommended therapeutic range for oral anticoagulant therapy is: LOW RISK: Prophylaxis of venous thrombosis INR: 2.0-3.0 Treatment of pulmonary embolism 2.0-3.0 Prevention of systemic embolism 2.0-3.0 HIGH RISK: Mechanical prosthetic valves 2.5-3.5 Performed By: #### A BSGEL, ABOGEL #### [place] [id number] PT Coag (PPP) [Time] 13.8 s Normal 9.0-14.4 [facility] Comment on above: Result Comment: Effe ctive 06/10/08, Protime results may be affected by some antibiotics (i.e. Ciprofloxacin, Azithromycin, Bactrim) which may potentiate the action of oral anticoagulants, with further increases in Protime/INR. Performed By: #### A BSGEL, ABOGEL #### [place] [id number] [place] [address] Platelet (Product)on 024 Platelet Product Ready Platelet Ready fo r Pickup Normal [facility] Comment on above: Order Comment: ON HO LD FOR CVOR Performed By: #### R BCP #### [address] [address] RFPon 11-06-2024 Albumin Level 2.6 G/dL Low 3.2-4.8 [facility] Comment on above: Performed By: #### A LORENZO BALTAZAR #### [address] [address] Phosphate [Mass/Vol] 4.4 mg/dL Normal 2.4-5.1 [facility] Comment on above: Result Comment: No te - New Reference Range in effect 20 Performed By: #### A LORENZO BALTAZAR #### [place] [id number] XR CHEST 1 VIEWon 11-06-2024 XR CHEST 1 VIEW ORIGINAL EXAMINATION: ONE XRAY VIEW OF THE CHEST11/06/2024 4:36 pm COMPARISON: CT chest 11/04/2024. Chest radiographs 11/03/2024 and 08/03/2021. HISTORY: ORDERING SYSTEM PROVIDED HISTORY: Reason for Exam: Check line placement FINDINGS: Endotracheal tube tip terminates approximately 4.9 cm above the amina. An enteric tube is visualized with side port hole below the diaphragm and tip off the field of view. Left chest tube projects over the left lung base. Mediastinal drain noted. Right internal jugular central venous catheter projects over the right atrium. Left subclavian central venous catheter projects over the expected superior vena cava. Cardiomediastinal contours are stable. Atherosclerotic aorta sternotomy wires and mediastinal clips noted. Atelectatic changes in the left more so than right lung salcedo. Costophrenic angles are sharp. No radiographic pneumothorax. IMPRESSION: Support devices as above. I have personally reviewed the images of this examination and agree with the resident's findings and interpretation. Interpreted by: Alex Ortiz Preliminary Report By: Panfilo Mercer Electronically signed By Alex Ortiz Dictated Date: 11/06/2024 4:39:18 PM Prelim Date: 11/06/2024 4:46:14 PM Sign Date: 11/06/2024 5:36:54 PM Ordering Provider: CARMELITA Carlisle [facility] XR ENTERIC TUBE PLACEMENTon 11-06-2024 XR ENTERIC TUBE PLACEMENT ORIGINAL EXAMINATION: ONE SUPINE XRAY VIEW(S) OF THE ABDOMEN 11/06/2024 4:38 pm COMPARISON: None. HISTORY: ORDERING SYSTEM PROVIDED HISTORY: Reason for Exam: Check OG Tube Placement FINDINGS: Enteric tube side port and distal tip projects over the proximal to mid stomach. IMPRESSION: Enteric tube side port and distal tip projects over the proximal to mid stomach. Interpreted by: Alex Ortiz Preliminary Report By: Alex Ortiz Electronically signed By Alex Ortiz Dictated Date: 11/06/2024 4:40:31 PM Prelim Date: 11/06/2024 4:41:24 PM Sign Date: 11/06/2024 4:41:24 PM Ordering Provider: CARMELITA DOMINGO [facility] .Auto Diffon 11-05-2024 Basophil, Absolute 0.1 10 3/mcL Normal 0.0-0.3 [facility] Comment on above: Performed By: #### A BSGEL, ABOGEL #### [address] [address] Basophils/100 WBC (Bld) 1.0 % Normal 0.0-2.5 [place] [facility] Comment on above: Performed By: #### A BSGEL, ABOGEL #### [address] [address] Eosinophil, Absolute 0.2 10 3/mcL Normal 0.0-0.7 [facility] Comment on above: Performed By: #### A BSGEL, ABOGEL #### [address] [address] Eosinophils/100 WBC (Bld) 2.9 % Normal 0.0-6.0 [facility] Comment on above: Performed By: #### A BSGEL, ABOGEL #### [address] [address] Lymphocyte, Absolute 1.4 10 3/mcL Normal 0.9-4.3 [facility] Comment on above: Performed By: #### A BSGEL, ABOGEL #### [facility] [address] [place] [address] Lymphocytes/100 WBC (Bld) 22.2 % Normal 20.0-40.0 [facility] Comment on above: Performed By: #### A LORENZO BALTAZAR #### [facility] [address] [place] [address] Monocyte, Absolute 0.4 10 3/mcL Normal 0.1-1.4 [facility] Comment on above: Performed By: #### A LORENZO BALTAZAR #### [facility] [address] [place] [address] Monocytes/100 WBC (Bld) 6.4 % Normal 2.0-13.0 [place] [facility] Comment on above: Performed By: #### A LORENZO BALTAZAR #### [facility] [address] [place] [address] Neutrophils/100 WBC (Bld) 67.5 % Normal 50.0-75.0 [facility] Comment on above: Performed By: #### A LORENZO BALTAZAR #### [facility] [address] [place] [address] .GFRon 11-05-2024 GFR 13 ml/min/1.73sqm [facility] Comment on above: Result Comment: GFR Population mean for , Non- Americans Ages 20-29 = 116 mL/min/1.73 sq.m. Ages 30-39 = 107 mL/min/1.73 sq.m. Ages 40-49 = 99 mL/min/1.73 sq.m. Ages 50-59 = 93 mL/min/1.73 sq.m. Ages 60-69 = 85 mL/min/1.73 sq.m. Ages 70+ = 75 mL/min/1.73 sq.m. Chronic Kidney Disease: Less than 60 mL/min/1.73 square meters End Stage Renal Disease: Less than 15 mL/min/1.73 square meters Performed By: #### A LORENZO BALTAZAR #### [facility] [address] [place] [id number] GFR Non- 10 ml/min/1.73sqm [facility] Comment on above: Result Comment: GFR Population mean for , Non- Americans Ages 20-29 = 116 mL/min/1.73 sq.m. Ages 30-39 = 107 mL/min/1.73 sq.m. Ages 40-49 = 99 mL/min/1.73 sq.m. Ages 50-59 = 93 mL/min/1.73 sq.m. Ages 60-69 = 85 mL/min/1.73 sq.m. Ages 70+ = 75 mL/min/1.73 sq.m. Chronic Kidney Disease: Less than 60 mL/min/1.73 square meters End Stage Renal Disease: Less than 15 mL/min/1.73 square meters Performed By: #### A LORENZO BALTAZAR #### [address] [id number] .NEUABSon 11-05-2024 Neutrophil, Absolute 4.3 10 3/mcL Normal 2.3-8.1 [facility] Comment on above: Performed By: #### A LORENZO BALTAZAR #### [address] [address] ABO/Rh (Gel)on 11-05-2024 ABO/Rh Interp Positive Invalid Interpretation Code [facility] Comment on above: Performed By: #### A LORENZO BALTAZAR #### [address] [address] ABS (Gel)on 11-05-2024 ABSC Interp (Gel) Negative Normal [facility] Comment on above: Performed By: #### A LORENZO BALTAZAR #### [place] [id number] APTTon 11-05-2024 aPTT Coag (Bld) [Time] 54.4 s High 25.0-35.0 [facility] Comment on above: Result Comment: Spec imen hemolyzed. Results may be affected. For Heparin anticoagulation therapy, the recommended therapeutic range is: 54-77 seconds (APTT Correlation with Anti-Xa therapeutic range of 0.3-0.7 units/ml). PLEASE REFERENCE THE PHARMACY PROTOCOL FOR DOSING. Performed By: #### A PTT ####[address] [address] aPTT Coag (Bld) [Time] 46.3 s High 25.0-35.0 [facility] Comment on above: Result Comment: For Heparin anticoagulation therapy, the recommended therapeutic range is: 54-77 seconds (APTT Correlation with Anti-Xa therapeutic range of 0.3-0.7 units/ml). PLEASE REFERENCE THE PHARMACY PROTOCOL FOR DOSING. Performed By: #### A CEFERINO BALTAZARGEL #### [address] [address] aPTT Coag (Bld) [Time] 44.1 s High 25.0-35.0 [facility] Comment on above: Result Comment: For Heparin anticoagulation therapy, the recommended therapeutic range is: 54-77 seconds (APTT Correlation with Anti-Xa therapeutic range of 0.3-0.7 units/ml). PLEASE REFERENCE THE PHARMACY PROTOCOL FOR DOSING. Performed By: #### A LORENZO BALTAZAR #### [address] [address] [facility] 11-05-2024 BUN/Creatinine Ratio 12.9 ratio Normal 10.0-22.0 [facility] Comment on above: Performed By: #### A LORENZO BALTAZAR #### [address] [address] Calcium [Mass/Vol] 9.1 mg/dL Normal 8.7-10.4 [facility] Comment on above: Performed By: #### A LORENZO BALTAZAR #### [address] [address] Chloride [Moles/Vol] 110 mmol/L Normal 98-110 [facility] Comment on above: Performed By: #### A LORENZO BALTAZAR #### [address] [address] CO2 [Moles/Vol] 26 mmol/L Normal 22-32 [facility] Comment on above: Performed By: #### A LORENZO BALTAZAR #### [address] [address] Creatinine [Mass/Vol] 5.52 mg/dL High 0.60-1.40 [facility] Comment on above: Result Comment: Test ing performed on Zannel analyzer using enzymatic creatinine methodology. Performed By: #### A LORENZO BALTAZAR #### [address] [address] Electrolyte Balance 3.0 mEq/L Low 4.0-15.0 [facility] Comment on above: Performed By: #### A LORENZO BALTAZAR #### [address] [address] Glucose [Mass/Vol] 90 mg/dL Normal 82-115 [facility] Comment on above: Performed By: #### A LORENZO BALTAZAR #### [address] [address] Potassium [Moles/Vol] 3.8 mmol/L Normal 3.5-5.0 [facility] Comment on above: Performed By: #### A LORENZO BALTAZAR #### [address] [address] Sodium [Moles/Vol] 139 mmol/L Normal 136-145 [facility] Comment on above: Performed By: #### A LORENZO BALTAZAR #### [address] [address] Urea nitrogen [Mass/Vol] 71.0 mg/dL High 8.0-22.0 [facility] Comment on above: Performed By: #### A LORENZO BALTAZAR #### [address] [address] CBCon 11-05-2024 Erythrocyte distribution width (RBC) [Ratio] 13.3 % Normal 11.5-15.5 [facility] Comment on above: Performed By: #### A LORENZO BALTAZAR #### [address] [address] Hematocrit (Bld) [Volume fraction] 33.3 % Low 40.0-52.0 [facility] Comment on above: Performed By: #### A LORENZO BALTAZAR #### [address] [address] Hgb 11.6 G/dL Low 13.0-17.5 [facility] Comment on above: Performed By: #### A LORENZO BALTAZAR #### [place] [id number] MCH (RBC) [Entitic mass] 27.8 pg Normal 27.0-33.0 [facility] Comment on above: Performed By: #### A LORENZO BALTAZAR #### [place] [address] MCHC 34.9 G/dL Normal 32.0-36.0 [facility] Comment on above: Performed By: #### A LORENZO BALTAZAR #### [place] [id number] MCV (RBC) [Entitic vol] 79.8 fL Low 81.0-100.0 [place] [facility] Comment on above: Performed By: #### A LORENZO BALTAZAR #### [place] [address] Platelet 207 10 3/mcL Normal 150-450 [facility] Comment on above: Performed By: #### A LORENZO BALTAZAR #### [place] [address] Platelet mean volume (Bld) [Entitic vol] 7.2 fL Normal 6.4-10.5 [facility] Comment on above: Performed By: #### A LORENZO BALTAZAR #### [place] [address] RBC 4.17 10 6/mcL Low 4.50-6.00 [facility] Comment on above: Performed By: #### A LORENZO BALTAZAR #### [place] [address] WBC 6.4 10 3/mcL Normal 4.5-10.8 [facility] Comment on above: Performed By: #### A LORENZO BALTAZAR #### [place] [address] EOSon 11-05-2024 Eos Smear 0 Normal [facility] Comment on above: Result Comment: The units for an eosinophil smear depend upon specimen type: Stool, sputum, nasal specimens: number of cells/hp field Urine, bronchial lavage: number of cells/100 cells (%) Performed By: #### G FR, MG, CMP #### [place] [address] Eosinophil Spec Type Urine Normal [facility] Comment on above: Performed By: #### G FR, MG, CMP #### [place] [address] HEPACon 11-05-2024 Hep A IgM Ab Non-Reactive Normal Non-[facility] Comment on above: Performed By: #### A BSÁNGELA, ABOGEL #### [place] [address] Hep A IgM Ab Int [facility] Comment on above: Result Comment: No s erological evidence of a current Hepatitis A infection. See Interp Performed By: #### A BSGEL, ABOGEL #### [place] [address] Hep B Core IgM Ab Non-Reactive Normal Non-[facility] Comment on above: Performed By: #### A BSGEL ABOGEL #### [place] [address] Hep B Core IgM Ab Int [facility]IN Comment on above: Result Comment: Samp les with a value < 0.80 Index are considered nonreactive (negative) for IgM antibodies to hepatitis B core antigen. See Interp Performed By: #### A BSÁNGELA, ABOGEL #### [place] [address] Hep B Surf Ag Non-Reactive Normal Non-[facility] Comment on above: Performed By: #### A BSGEL, ABOGEL #### [place] [address] Hep C Ab Non-Reactive Normal [facility] Comment on above: Performed By: #### A BSGEL, ABOGEL #### [place] [address] Hep C Ab Int [facility] Comment on above: Result Comment: Nonr eactive: Samples with a value < 0.80 are considered nonreactive (negative) for antibodies to HCV. A negative test result does not exclude the possibility of exposure to or infection with HCV. HCV antibodies may be undetectable in some stages of the infection and in some clinical conditions. See Interp Performed By: #### A LORENZO BALTAZAR #### [place] [id number] HFPon 11-05-2024 Bili Indirect Unable to Calculate Normal 0.1-10.0 [facility] Comment on above: Result Comment: Unab le to calculate this test result accurately. Results used to calculate this test are outside the reportable range. Performed By: #### A LORENZO BALTAZAR #### [place] [address] Albumin/Globulin [Mass ratio] 1.0 {ratio} Normal 0.9-1.6 [facility] Comment on above: Performed By: #### A LORENZO BALTAZAR #### [place] [address] ALP [Catalytic activity/Vol] 70 U/L Normal 38-126 [facility] Comment on above: Performed By: #### A LORENZO BALTAZAR #### [place] [address] ALT [Catalytic activity/Vol] 16 U/L Normal 12-55 [facility] Comment on above: Performed By: #### A LORENZO BALTAZAR #### [place] [id number] AST [Catalytic activity/Vol] 22 U/L Normal 8-34 [facility] Comment on above: Performed By: #### A LORENZO BALTAZAR #### [place] [address] Bili Direct <0.1 Normal 0.0-0.4 [facility] Comment on above: Result Comment: Use of this assay is not recommended for patients undergoing treatment with eltrombopag due to the potential for falsely elevated results. Performed By: #### A LORENZO BALTAZAR #### [place] [address] Bili Total 0.20 mg/dL Normal 0.20-1.20 [facility] Comment on above: Result Comment: Use of this assay is not recommended for patients undergoing treatment with eltrombopag due to the potential for falsely elevated results. Performed By: #### A BSGEL, ABOGEL #### [address] [address] Globulin 2.9 G/dL Normal 1.5-3.8 [facility] Comment on above: Performed By: #### A BSGEL, ABOGEL #### [address] [address] Total Protein 5.7 G/dL Normal 5.7-8.2 [facility] Comment on above: Performed By: #### A BSGEL, ABOGEL #### [address] [address] IFESon 11-05-2024 IFES Interpretation Immunofixation electrophoresis of serum shows the presence of only polyclonal immunoglobulins (IgG,A,M,[place] and Lambda), No monoclonal protein detected. Normal [facility] Comment on above: Result Comment: Elec tronically Signed by: NICHOLE ESCOBEOD 11/05/2024 16:44 EST Performed By: #### A BSGEL, ABOGEL #### [address] [address] LABORATORYOrdered By: Benja Castro on 11-05-2024 ABO and Rh group Nom (Bld) Blood group A Rh(D) positive Invalid Interpretation Code AH BB Auto SS Blood group antibody screen Ql Negative ABSC (11/05/24 1:09 PM) Normal AH BB Auto SS RBC Product Ready RBC Ready for Pickup (11/05/24 11:42 AM) Normal AH BB Manual SS LABORATORYOrdered By: Heather Mcgrath on 11-05-2024 Time of Stated Blood Glucose [id number] [facility] Work Phone: LABORATORYOrdered By: Mechelle Kennedy on 11-05-2024 Appearance (U) Clear (11/05/24 6:29 AM) Normal Clear AH Auto Urine SS Bilirubin Ql (U) Negative (11/05/24 6:29 AM) Normal Neg-Trace AH Auto Urine SS Color (U) Yellow (11/05/24 6:29 AM) Normal AH Auto Urine SS Glucose Test strip (U) [Mass/Vol] 100 mg/dL Invalid Interpretation Code Negative AH Auto Urine SS Hemoglobin Auto test strip (U) [Mass/Vol] Trace (11/05/24 6:29 AM) Normal Neg-Trace AH Auto Urine SS Ketones Ql (U) Negative Normal Neg-Trace AH Auto Urine SS UA Leuk Est Negative (11/05/24 6:29 AM) Normal Negative AH Auto Urine SS UA Nitrite Negative (11/05/24 6:29 AM) Normal Negative AH Auto Urine SS UA pH 6.0 (11/05/24 6:29 AM) Normal 5.0 - 8.0 AH Auto Urine SS UA Protein 300 mg/dL Invalid Interpretation Code Negative AH Auto Urine SS UA RBC Rare /HPF Normal 0-2 AH Auto Urine SS UA Spec Grav 1.015 (11/05/24 6:29 AM) Normal 1.006-1.029 AH Auto Urine SS UA Specimen Type Clean Catch (11/05/24 6:29 AM) Normal AH Auto Urine SS UA Squam Epithelial 0-2 /HPF Normal 0-20 Au to Urine SS UA Urobilinogen 0.2 E.U./dL Normal 0.2-1.0 AH Auto Urine SS WBC LM.HPF (Urine sed) [#/Area] Rare /HPF Normal 0-5 AH Auto Urine SS LABORATORYOrdered By: Edilberto Talavera on 11-05-2024 Eosinophils Howard stain Ql (Urine sed) 0 5 (11/05/24 6:29 AM) Normal Manual Heme SS Comment on above: Interpretive Data: T he units for an eosinophil smear depend upon specimen type: Stool, sputum, nasal specimens: number of cells/hp field Urine, bronchial lavage: number of cells/100 cells (%) Specimen source Nom (Unsp spec) Urine (11/05/24 6:29 AM) Normal Manual Heme SS LABORATORYOrdered By: SYSTEM SYSTEM on 11-05-2024 Bili Indirect Unable to Calculate Invalid Interpretation Code 0.1 - 10.0 Chemistry S Comment on above: Result Comment: Unab le to calculate this test result accurately. Results used to calculate this test are outside the reportable range. Bilirubin.conjugated [Mass/Vol] mg/dL Normal 0.0 - 0.4 mg/dL AH ADM SS Comment on above: Interpretive Data: U se of this assay is not recommended for patients undergoing treatment with eltrombopag due to the potential for falsely elevated results. Parathyrin.intact [Mass/Vol] 201.1 pg/mL High 18.5 - 88.0 pg/mL AH ADM SS Uric Acid Lvl 9.9 mg/dL High 3.7 - 9.2 mg/dL ADM SS Comment on above: Interpretive Data: * *Note - New Reference Range in effect 20 LABORATORYOrdered By: Kellen Henry on 11-05-2024 HAV IgM IA Ql Non-Reactive (11/05/24 3:42 AM) Normal Non-Reactive AH ADM SS HAV IgM IA Ql No serological evidence of a current Hepatitis A infection. Invalid Interpretation Code Chemistry S HBV core IgM IA Ql Non-Reactive (11/05/24 3:42 AM) Normal Non-Reactive AH ADM SS HBV core IgM IA Ql Samples with a value < 0.80 Index are considered nonreactive (negative) for IgM antibodies to hepatitis B core antigen. Invalid Interpretation Code Chemistry S HBV surface Ag IA Ql Non-Reactive (11/05/24 3:42 AM) Normal Non-Reactive AH ADM SS HCV Ab IA Ql Non-Reactive (11/05/24 3:42 AM) Normal Non-Reactive AH ADM SS HCV Ab IA Ql Nonreactive: Samples with a value < 0.80 are considered nonreactive (negative) for antibodies to HCV.A negative test result does not exclude the possibility of exposure to or infection with HCV. HCV antibodies may be undetectable in some stages of the infection and in some clinical conditions. Invalid Interpretation Code Chemistry S LABORATORYOrdered By: NICHOLE ESCOBEDO on 11-05-2024 Interpretation Immunofixation [Interp] Immunofixation electrophoresis of serum shows the presence of only polyclonal immunoglobulins (IgG,A,M,[place] and Lambda), No monoclonal protein detected. Invalid Interpretation Code Special Chem SS Work Phone: MGon 11-05-2024 Magnesium [Mass/Vol] 2.5 mg/dL High 1.6-2.4 [facility] Comment on above: Performed By: #### A LORENZO BALTAZAR #### [address] [address] PTHon 11-05-2024 PTH, Intact 201.1 pg/mL High 18.5-88.0 [facility] Comment on above: Performed By: #### A LORENZO BALTAZAR #### [place] [id number] RBC (Product)on 11-05-2024 RBC Product Ready RBC Ready for Pickup [facility] MAIN Comment on above: Performed By: #### R BCP #### [place] [id number] RFPon 11-05-2024 Albumin Level 2.8 G/dL Low 3.2-4.8 [facility] Comment on above: Performed By: #### A LORENZO BALTAZAR #### [place] [id number] Phosphate [Mass/Vol] 4.7 mg/dL Normal 2.4-5.1 [facility] Comment on above: Result Comment: No te - New Reference Range in effect 20 Performed By: #### A LORENZO BALTAZAR #### [place] [id number] UAon 11-05-2024 Color (U) Yellow Normal [facility] Comment on above: Performed By: #### A LORENZO BALTAZAR #### [place] [address] Glucose (U) [Mass/Vol] 100 mg/dL Abnormal Negative [facility] Comment on above: Performed By: #### A LORENZO BALTAZAR #### [place] [address] Ketones Ql (U) Negative Normal Neg-Trace [facility] Comment on above: Performed By: #### A LORENZO BALTAZAR #### [place] [id number] UA Appear Clear Normal Clear [facility] Comment on above: Performed By: #### A LORENZO BALTAZAR #### [place] [id number] UA Blood Trace Normal Neg-Trace [facility] Comment on above: Performed By: #### A LORENZO BALTAZAR #### [address] [address] UA Leuk Est Negative Normal Negative [facility] Comment on above: Performed By: #### A LORENZO BALTAZAR #### [address] [address] UA Nitrite Negative Normal Negative [facility] Comment on above: Performed By: #### A LORENZO BALTAZAR #### [address] [address] UA pH 6.0 Normal 5.0 - 8.0 [facility] Comment on above: Performed By: #### A LORENZO BALTAZAR #### [address] [address] UA Protein 300 mg/dL Abnormal Negative [facility] Comment on above: Performed By: #### A LORENZO BALTAZAR #### [address] [address] UA Spec Grav 1.015 Normal 1.006-1.029 [facility] Comment on above: Performed By: #### A LORENZO BALTAZAR #### [address] [address] UA Specimen Type Clean Catch Normal [facility] Comment on above: Performed By: #### A LORENZO BALTAZAR #### [address] [address] UA Urobilinogen 0.2 E.U./dL Normal 0.2-1.0 [facility] Comment on above: Performed By: #### A LORENZO BALTAZAR #### [address] [address] Urobilinogen (U) [Mass/Vol] Negative Normal Neg-Trace [facility] Comment on above: Performed By: #### A LORENZO BALTAZAR #### [address] [address] UAMICon 11-05-2024 UA RBC Rare Normal 0-2 [facility] Comment on above: Performed By: #### A LORENZO BALTAZAR #### [address] [address] UA Squam Epithelial 0-2 Normal 0-20 [facility] Comment on above: Performed By: #### A LORENZO BALTAZAR #### [facility] [address] [place] [address] UA WBC Rare Normal 0-5 [facility] Comment on above: Performed By: #### A LORENZO BALTAZAR #### [facility] [address] [place] [address] URICon 11-05-2024 Uric Acid Lvl 9.9 mg/dL High 3.7-9.2 [facility] Comment on above: Result Comment: No te - New Reference Range in effect 20 Performed By: #### A LORENZO BALTAZAR #### [facility] [address] [place] [id number] US RENALon 11-05-2024 US RENAL ORIGINAL EXAMINATION: ULTRASOUND OF THE KIDNEYS 11/05/2024 11:18 am COMPARISON: None. HISTORY: ORDERING SYSTEM PROVIDED HISTORY: Reason for Exam: [email or web address] All images are recorded and archived. FINDINGS: Right and left kidneys measure 9.9 x 4.8 x 5.2 cm, and 11.1 x 4.7 x 5.5 cm respectively. There is a 1.2 x 1.1 x 1.1 cm right renal cyst. A 8 mm subcentimeter left renal cyst is present. Kidneys demonstrate normal cortical echogenicity. No hydronephrosis or intrarenal stones. Urinary bladder contains 144 mL urine. Bladder mucosa is smooth in contour without mass or stone. IMPRESSION: 1. Small bilateral renal cysts. 2. No acute surgical abnormality. Interpreted by: Benjamin Barrera DO Preliminary Report By: Benjamin Barrera DO Electronically signed By Benjamin Barrera DO Dictated Date: 11/05/2024 11:24:39 AM Prelim Date: 11/05/2024 11:27:45 AM Sign Date: 11/05/2024 11:27:45 AM Ordering Provider: EDWARD Carlisle [facility] .Auto Diffon 11-04-2024 Basophil, Absolute 0.1 10 3/mcL Normal 0.0-0.3 [facility] Comment on above: Performed By: #### A LORENZO BALTAZAR #### [address] [address] Basophils/100 WBC (Bld) 0.9 % Normal 0.0-2.5 [place] [facility] Comment on above: Performed By: #### A LORENZO BALTAZAR #### [address] [address] Eosinophil, Absolute 0.2 10 3/mcL Normal 0.0-0.7 [facility] Comment on above: Performed By: #### A LORENZO BALTAZAR #### [address] [address] Eosinophils/100 WBC (Bld) 3.4 % Normal 0.0-6.0 [facility] Comment on above: Performed By: #### A LORENZO BALTAZAR #### [address] [address] Lymphocyte, Absolute 1.9 10 3/mcL Normal 0.9-4.3 [facility] Comment on above: Performed By: #### A LORENZO BALTAZAR #### [address] [address] Lymphocytes/100 WBC (Bld) 29.2 % Normal 20.0-40.0 [facility] Comment on above: Performed By: #### A LORENZO BALTAZAR #### [address] [address] Monocyte, Absolute 0.5 10 3/mcL Normal 0.1-1.4 [facility] Comment on above: Performed By: #### A LORENZO BALTAZAR #### [address] [address] Monocytes/100 WBC (Bld) 7.3 % Normal 2.0-13.0 [place] [facility] Comment on above: Performed By: #### A LORENZO BALTAZAR #### [address] [address] Neutrophils/100 WBC (Bld) 59.2 % Normal 50.0-75.0 [facility] Comment on above: Performed By: #### A LORENZO BALTAZAR #### [address] [address] .GFRon 11-04-2024 GFR 12 ml/min/1.73sqm Normal [facility] Comment on above: Result Comment: GFR Population mean for , Non- Americans Ages 20-29 = 116 mL/min/1.73 sq.m. Ages 30-39 = 107 mL/min/1.73 sq.m. Ages 40-49 = 99 mL/min/1.73 sq.m. Ages 50-59 = 93 mL/min/1.73 sq.m. Ages 60-69 = 85 mL/min/1.73 sq.m. Ages 70+ = 75 mL/min/1.73 sq.m. Chronic Kidney Disease: Less than 60 mL/min/1.73 square meters End Stage Renal Disease: Less than 15 mL/min/1.73 square meters Performed By: #### A LORENZO BALTAZAR #### [address] [address] GFR Non- 10 ml/min/1.73sqm Normal [facility] Comment on above: Result Comment: GFR Population mean for , Non- Americans Ages 20-29 = 116 mL/min/1.73 sq.m. Ages 30-39 = 107 mL/min/1.73 sq.m. Ages 40-49 = 99 mL/min/1.73 sq.m. Ages 50-59 = 93 mL/min/1.73 sq.m. Ages 60-69 = 85 mL/min/1.73 sq.m. Ages 70+ = 75 mL/min/1.73 sq.m. Chronic Kidney Disease: Less than 60 mL/min/1.73 square meters End Stage Renal Disease: Less than 15 mL/min/1.73 square meters Performed By: #### A LORENZO BALTAZAR #### [address] [address] .NEUABSon 11-04-2024 Neutrophil, Absolute 3.8 10 3/mcL Normal 2.3-8.1 [facility] Comment on above: Performed By: #### A LORENZO BALTAZAR #### [address] [address] A1Con 11-04-2024 Glucose [Mass/Vol] 154 mg/dL Normal [facility] Comment on above: Result Comment: Leila mated Average Glucose calculated by equation ((28.7xA1C)-46.7) Estimated average glucose (eAG) is a calculated value from Hemoglobin A1C and is sales representative graphic art of the average blood glucose level in the last 2-3 month period. Normal range: less than 114 mg/dL Performed By: #### A 1C, TROPHS, LIPID ####[place] [id number] [place] [id number] HbA1c (Bld) [Mass fraction] 7.0 % High 4.0-6.0 [facility] Comment on above: Performed By: #### A 1C, TROPHS, LIPID ####[place] [id number] [place] [address] [facility] aPTT Coag (Bld) [Time] 51.7 s High 25.0-35.0 [facility] Comment on above: Result Comment: For Heparin anticoagulation therapy, the recommended therapeutic range is: 54-77 seconds (APTT Correlation with Anti-Xa therapeutic range of 0.3-0.7 units/ml). PLEASE REFERENCE THE PHARMACY PROTOCOL FOR DOSING. Performed By: #### P RO, APTT ####[address] [address] aPTT Coag (Bld) [Time] 53.4 s High 25.0-35.0 [facility] Comment on above: Result Comment: For Heparin anticoagulation therapy, the recommended therapeutic range is: 54-77 seconds (APTT Correlation with Anti-Xa therapeutic range of 0.3-0.7 units/ml). PLEASE REFERENCE THE PHARMACY PROTOCOL FOR DOSING. Performed By: #### A PTT #### [facility] [address] [place] [address] aPTT Coag (Bld) [Time] 33.6 s Normal 25.0-35.0 [facility] Comment on above: Result Comment: For Heparin anticoagulation therapy, the recommended therapeutic range is: 45.4-75.9 seconds. Patients on heparin therapy may have an extreme result. Performed By: #### A SEFERINO, FES, RFP, URIC, CBC, ADIFF, GFR #### [facility] [address] [place], [place] [address] #### PTH #### [address] [address] BGon 11-04-2024 Base excess Calc (Bld) [Moles/Vol] -3.6000 mmol/L Normal [facility] Comment on above: Order Comment: on Ro om Air. Preop Cardiothoracic OR (date) Performed By: #### B G ####[address] [address] CO2 [Moles/Vol] 25.8 mmol/L Normal 22.0-30.0 [facility] Comment on above: Order Comment: on Ro om Air. Preop Cardiothoracic OR (date) Performed By: #### B G ####[address] [address] HCO3 (Bld) [Moles/Vol] 24.6 mmol/L Normal 21.0-29.0 [place] [facility] Comment on above: Order Comment: on Ro om Air. Preop Cardiothoracic OR (date) Performed By: #### B G ####[address] [address] Oxygen (Bld) [Partial pressure] 89.4 mm[Hg] Normal 74.0-108.0 [facility] Comment on above: Order Comment: on Ro om Air. Preop Cardiothoracic OR (date) Performed By: #### B G ####[address] [address] Oxygen saturation in Blood 97.3 % High 92.0-96.0 [facility] Comment on above: Order Comment: on Ro om Air. Preop Cardiothoracic OR (date) Performed By: #### B G ####[address] [address] pCO2 39.7 mmHg Normal 32.0-46.0 [facility] Comment on above: Order Comment: on Ro om Air. Preop Cardiothoracic OR (date) Performed By: #### B G ####[address] [id number] pH (Bld) 7.410 [pH] Normal 7.380-7.460 [facility] Comment on above: Order Comment: on Ro om Air. Preop Cardiothoracic OR (date) Performed By: #### B G ####[address] [address] BMPon 11-04-2024 BUN/Creatinine Ratio 14.2 ratio Normal 10.0-22.0 [facility] Comment on above: Performed By: #### A LORENZO BALTAZAR #### [address] [address] Calcium [Mass/Vol] 8.9 mg/dL Normal 8.7-10.4 [facility] Comment on above: Performed By: #### A LORENZO BALTAZAR #### [address] [address] Chloride [Moles/Vol] 108 mmol/L Normal 98-110 [facility] Comment on above: Performed By: #### A LORENZO BALTAZAR #### [address] [address] CO2 [Moles/Vol] 27 mmol/L Normal 22-32 [facility] Comment on above: Performed By: #### A LORENZO BALTAZAR #### [address] [address] Creatinine [Mass/Vol] 5.72 mg/dL High 0.60-1.40 [facility] Comment on above: Result Comment: Test ing performed on Zannel analyzer using enzymatic creatinine methodology. Performed By: #### A LORENZO BALTAZAR #### [address] [address] Electrolyte Balance 7.0 mEq/L Normal 4.0-15.0 [facility] Comment on above: Performed By: #### A LORENZO BALTAZAR #### [address] [address] Glucose [Mass/Vol] 122 mg/dL High 82-115 [facility] Comment on above: Performed By: #### A LORENZO BALTAZAR #### [address] [address] Potassium [Moles/Vol] 3.8 mmol/L Normal 3.5-5.0 [facility] Comment on above: Performed By: #### A CEFERINO BALTAZARGEL #### [place] [id number] Sodium [Moles/Vol] 142 mmol/L Normal 136-145 [facility] Comment on above: Performed By: #### A DELANEY ABOGEL #### [place] [id number] Urea nitrogen [Mass/Vol] 81.0 mg/dL High 8.0-22.0 [facility] Comment on above: Performed By: #### A LORENZO BALTAZAR #### [place] [id number] CBCon 11-04-2024 Erythrocyte distribution width (RBC) [Ratio] 13.6 % Normal 11.5-15.5 [facility] Comment on above: Performed By: #### A LORENZO BALTAZAR #### [place] [address] Hematocrit (Bld) [Volume fraction] 33.9 % Low 40.0-52.0 [facility] Comment on above: Performed By: #### A LORENZO BALTAZAR #### [place] [address] Hgb 11.5 G/dL Low 13.0-17.5 [facility] Comment on above: Performed By: #### A DELANEY ABOGEL #### [place] [address] MCH (RBC) [Entitic mass] 27.1 pg Normal 27.0-33.0 [facility] Comment on above: Performed By: #### A BSÁNGELA ABOGEL #### [place] [id number] MCHC 34.0 G/dL Normal 32.0-36.0 [facility] Comment on above: Performed By: #### A BSÁNGELA ABOGEL #### [place] [id number] MCV (RBC) [Entitic vol] 79.9 fL Low 81.0-100.0 [place] [facility] Comment on above: Performed By: #### A LORENZO BALTAZAR #### [address] [address] Platelet 217 10 3/mcL Normal 150-450 [facility] Comment on above: Performed By: #### A LORENZO BALTAZAR #### [address] [address] Platelet mean volume (Bld) [Entitic vol] 7.2 fL Normal 6.4-10.5 [facility] Comment on above: Performed By: #### A LORENZO BALTAZAR #### [address] [address] RBC 4.24 10 6/mcL Low 4.50-6.00 [facility] Comment on above: Performed By: #### A LORENZO BALTAZAR #### [address] [address] WBC 6.5 10 3/mcL Normal 4.5-10.8 [facility] Comment on above: Performed By: #### A LORENZO BALTAZAR #### [address] [address] CRURon 11-04-2024 U Creatinine 49.2 mg/dL Normal [facility] Comment on above: Performed By: #### A LORENZO BALTAZAR #### [address] [address] [address] THORAX W/O CONTRASTon CT THORAX W/O CONTRAST ORIGINAL EXAMINATION: CT OF THE CHEST WITHOUT UFDWXOVD28/9/2024 8:[address] CHEST WITHOUT CONTRAST EXAM DESCRIPTION: TECHNIQUE: CT of the chest was performed without the administration of intravenous contrast. Multiplanar reformatted images are provided for review. Automated exposure control, iterative reconstruction, and/or weight based adjustment of the mA/kV was utilized to reduce the radiation dose to as low as reasonably achievable. COMPARISON: Chest, November 03, 2024 HISTORY: ORDERING SYSTEM PROVIDED HISTORY: Reason for Exam: HEART CATH TODAY Calcification of the ascending aorta FINDINGS: The pulmonary parenchyma is without acute consolidation, interstitial thickening, or bronchiectasis. There is no pneumothorax or pleural effusion. Scattered 3-4 mm pulmonary nodules are noted in the right hemithorax. There are no enlarged lymph nodes within the mediastinal, agatha, or either axilla by pathologic size criteria. Mild calcification is noted along the anterior right lateral and posterior evangelista of the ascending aorta near the right. Heavy atherosclerosis is noted throughout the coronary vasculature. The heart and great vessels are within normal limits. Limited views of the upper abdominal viscera are unremarkable. The osseous structures are without gross or sclerotic lesion. IMPRESSION: 1. Mild calcification at the aortic root involving the anterior right lateral and posterior evangelista. 2. Multiple pulmonary nodules. Most significant: Solid pulmonary nodule measuring 4 mm. Per Fleischner Society Guidelines, no routine follow-up imaging is recommended. These guidelines do not apply to immunocompromised patients and patients with cancer. Follow up in patients with significant comorbidities as clinically warranted. For lung cancer screening, adhere to Lung-RADS guidelines. Reference: Radiology. 2017; 284(1):228-43. 3. Advanced coronary ASVD. Interpreted by: Jitednra Santos MD Preliminary Report By: Jitendra Santos MD Electronically signed By Jitendra Santos MD Dictated Date: 11/04/2024 10:15:53 PM Prelim Date: 11/04/2024 10:28:32 PM Sign Date: 11/04/2024 10:28:32 PM Ordering Provider: DENISE Carlisle [facility] HFPon 11-04-2024 Jameson Indirect Unable to Calculate Normal 0.1-10.0 [facility] Comment on above: Result Comment: Unab le to calculate this test result accurately. Results used to calculate this test are outside the reportable range. Performed By: #### A LORENZO BALTAZAR #### [address] [address] Albumin Level 2.9 G/dL Low 3.2-4.8 [facility] Comment on above: Performed By: #### A LORENZO BALTAZAR #### [address] [address] Albumin/Globulin [Mass ratio] 1.0 {ratio} Normal 0.9-1.6 [facility] Comment on above: Performed By: #### A LORENZO BALTAZAR #### [address] [address] ALP [Catalytic activity/Vol] 70 U/L Normal 38-126 [facility] Comment on above: Performed By: #### A CEFERINO BALTAZARGEL #### [place] [id number] ALT [Catalytic activity/Vol] 18 U/L Normal 12-55 [facility] Comment on above: Performed By: #### A DELANEY ABOGEL #### [place] [id number] AST [Catalytic activity/Vol] 24 U/L Normal 8-34 [facility] Comment on above: Performed By: #### A CEFERINO BALTAZARGEL #### [place] [address] Bili Direct <0.1 Normal 0.0-0.4 [facility] Comment on above: Result Comment: Use of this assay is not recommended for patients undergoing treatment with eltrombopag due to the potential for falsely elevated results. Performed By: #### A CEFERINO BALTAZARGEL #### [place] [address] Bili Total <0.20 Normal 0.20-1.20 [facility] Comment on above: Result Comment: Use of this assay is not recommended for patients undergoing treatment with eltrombopag due to the potential for falsely elevated results. Performed By: #### A CEFERINO BALTAZARGEL #### [place] [address] Globulin 3.0 G/dL Normal 1.5-3.8 [facility] Comment on above: Performed By: #### A LORENZO BALTAZAR #### [place] [address] Total Protein 5.9 G/dL Normal 5.7-8.2 [facility] Comment on above: Performed By: #### A CEFERINO BALTAZARGEL #### [place] [address] LABORATORYOrdered By: Myra Mondragon on 11-04-2024 Creatinine (U) [Mass/Vol] 49.2 mg/dL Invalid Interpretation Code AH ADM SS Sodium (U) [Moles/Vol] 71 mmol/L Invalid Interpretation Code ADM SS LABORATORYOrdered By: SYSTEM SYSTEM on 11-04-2024 Bili Indirect Unable to Calculate Invalid Interpretation Code 0.1 - 10.0 Chemistry S Comment on above: Result Comment: Unab le to calculate this test result accurately. Results used to calculate this test are outside the reportable range. Bilirubin.conjugated [Mass/Vol] mg/dL Normal 0.0 - 0.4 mg/dL ADM Comment on above: Interpretive Data: U se of this assay is not recommended for patients undergoing treatment with eltrombopag due to the potential for falsely elevated results. Glucose [Mass/Vol] 154 mg/dL Invalid Interpretation Code Auto Chem Comment on above: Interpretive Data: E stimated average glucose (eAG) is a calculated value from Hemoglobin A1C and is sales representative graphic art of the average blood glucose level in the last 2-3 month period. Normal range: less than 114 mg/dL HbA1c (Bld) [Mass fraction] 7.0 % High 4.0 - 6.0 % Auto Chem SS PT Coag (PPP) [Time] 10.4 s Normal 9.0 - 1 4.4 seconds [facility] Comment on above: Interpretive Data: E ffective 06/10/08, Protime results may be affected by some antibiotics (i.e. Ciprofloxacin, Azithromycin, Bactrim) which may potentiate the action of oral anticoagulants, with further increases in Protime/INR. PT International Ratio 0.9 ratio Invalid Interpretation Code [facility] Comment on above: Interpretive Data: [employer] (CHEST, 1991, 102:312S-25S) recommended therapeutic range for oral anticoagulant therapy is: LOW RISK: Prophylaxis of venous thrombosis INR: 2.0-3.0 Treatment of pulmonary embolism 2.0-3.0 Prevention of systemic embolism 2.0-3.0 HIGH RISK: Mechanical prosthetic valves 2.5-3.5 Troponin I.cardiac DL <= 0.01 ng/mL [Mass/Vol] 984 ng/L High 0 - 54 ng/L [facility] Comment on above: Interpretive Data: High Sensitive Troponin I Reference Ranges: Female: 0-34 ng/L Male: 0-54 ng/L Testing performed on [employer] analyzer using direct chemiluminescent technology. TSH Qn 1.339 mIU/mL Normal 0.550 - 4.780 mIU/mL AH ADM SS Troponin I.cardiac DL <= 0.01 ng/mL [Mass/Vol] 236 ng/L High 0 - 76 ng/L AO ADM SS Comment on above: Interpretive Data: H igh Sensitive Troponin I Reference Ranges: Female: 0-51 ng/L Male: 0-76 ng/L Testing performed on [employer] using a homogeneous sandwich chemiluminescent immunoassay based on [employer] technology. LABORATORYOrdered By: Kellen Henry on 11-04-2024 Cholesterol [Mass/Vol] 104 mg/dL Normal 50 - 199 mg/dL ADM SS Comment on above: Interpretive Data: C holesterol Reference Interval: Less than 200 Desirable 200-239 Borderline high risk 240 and above High risk Cholesterol in HDL [Mass/Vol] 34 mg/dL Low 40 - 59 mg/dL ADM SS Cholesterol in LDL [Mass/Vol] 48 mg/dL Normal 0 - 129 mg/dL ADM SS Triglyceride [Mass/Vol] 109 mg/dL Normal 3 - 149 mg/d L ADM LIPIDon 11-04-2024 Cholesterol [Mass/Vol] 104 mg/dL Normal 50-199 [facility] Comment on above: Result Comment: Chol esterol Reference Interval: Less than 200 Desirable 200-239 Borderline high risk 240 and above High risk Performed By: #### A VIDA Stanley, LIPID ####[address] [address] Cholesterol in HDL [Mass/Vol] 34 mg/dL Low 40-59 [facility] Comment on above: Performed By: #### VIDA Wilcox, LIPID ####[address] [address] Cholesterol in LDL [Mass/Vol] 48 mg/dL Normal 0-129 [facility] Comment on above: Performed By: #### A VIDA Stanley, LIPID ####[address] [address] Triglyceride [Mass/Vol] 109 mg/dL Normal 3-149 [place] [facility] Comment on above: Performed By: #### VIDA Wilcox, LIPID ####[address] [address] MGon 11-04-2024 Magnesium [Mass/Vol] 2.7 mg/dL High 1.6-2.4 [facility] Comment on above: Performed By: #### A BSGEL, ABOGEL #### [facility] [address] [place] [id number] NAURon 11-04-2024 Sodium [Moles/Vol] 71 mmol/L Normal [facility] Comment on above: Performed By: #### A BSGEL, ABOGEL #### [address] [address] PBNPon 11-04-2024 Natriuretic peptide B (Bld) [Mass/Vol] 7824 pg/mL High 0-125 [facility] Comment on above: Result Comment: NT-p roBNP results of less than 300 pg/mL effectively rules out acute congestive heart failure with 99% negative predictive value. Performed By: #### A SEFERINO, FES, RFP, URIC, CBC, ADIFF, GFR #### [place] [address] [place], [place] [address] #### PTH #### [address] [address] PROon 11-04-2024 INR Coag (PPP) [Relative time] 0.9 {INR} Normal [facility] Comment on above: Result Comment: [employer] (CHEST, 1992, 102:312S-25S) recommended therapeutic range for oral anticoagulant therapy is: LOW RISK: Prophylaxis of venous thrombosis INR: 2.0-3.0 Treatment of pulmonary embolism 2.0-3.0 Prevention of systemic embolism 2.0-3.0 HIGH RISK: Mechanical prosthetic valves 2.5-3.5 Performed By: #### P RO, APTT ####[address] [address] PT Coag (PPP) [Time] 10.4 s Normal 9.0-14.4 [facility] Comment on above: Result Comment: Effe ctive 06/10/08, Protime results may be affected by some antibiotics (i.e. Ciprofloxacin, Azithromycin, Bactrim) which may potentiate the action of oral anticoagulants, with further increases in Protime/INR. Performed By: #### P RO, APTT ####[address] [address] PT Coag (PPP) [Time] 9.9 s Normal 9.0-14.4 [facility] Comment on above: Performed By: #### A SEFERINO, FES, RFP, URIC, CBC, ADIFF, GFR #### [place] [address] #### PTH #### [place] [address] PT International Ratio 0.9 Normal [facility] Comment on above: Result Comment: [employer] (CHEST, 1992, 102:312S-25S) recommended therapeutic range for oral anticoagulant therapy is: LOW RISK: Prophylaxis of venous thrombosis INR: 2.0-3.0 Treatment of pulmonary embolism 2.0-3.0 Prevention of systemic embolism 2.0-3.0 HIGH RISK: Mechanical prosthetic valves 2.5-3.5 Performed By: #### A SEFERINO, FES, RFP, URIC, CBC, ADIFF, GFR #### [place] [address] #### PTH #### [place] [address] BEASon 11-04-2024 High Sensitivity Troponin I 984 ng/L High 0-54 [facility] Comment on above: Result Comment: High Sensitive Troponin I Reference Ranges: Female: 0-34 ng/L Male: 0-54 ng/L Testing performed on [employer] analyzer using direct chemiluminescent technology. Performed By: #### A 1C, VIDA, LIPID ####[place] [address] High Sensitivity Troponin I 236 ng/L High 0-[address] [place] [address] Comment on above: Result Comment: High Sensitive Troponin I Reference Ranges: Female: 0-51 ng/L Male: 0-76 ng/L Testing performed on [employer] using a homogeneous sandwich chemiluminescent immunoassay based on [employer] technology. Performed By: #### T ROPHS #### [place] [address] High Sensitivity Troponin I 146 ng/L [facility] [address] Comment on above: Result Comment: High Sensitive Troponin I Reference Ranges: Female: 0-51 ng/L Male: 0-76 ng/L Testing performed on [employer] using a homogeneous sandwich chemiluminescent immunoassay based on [employer] technology. Performed By: #### A SEFERINO, FES, RFP, URIC, CBC, ADIFF, GFR #### [address] [address] #### PTH #### [address] [address] TSHon 11-04-2024 TSH 1.339 mIU/mL Normal 0.550-4.780 [facility] Comment on above: Performed By: #### A BSGEL, ABOGEL #### [address] [address] XR CHEST 1 VIEWon 11-04-2024 XR CHEST 1 VIEW ORIGINAL EXAMINATION: ONE XRAY VIEW OF THE CHEST 11/03/2024 11:54 pm COMPARISON: 08/03/2021 HISTORY: ORDERING SYSTEM PROVIDED HISTORY: Reason for Exam: chest pain FINDINGS: The cardiomediastinal silhouette appears unchanged. There is no focal consolidation. There is no pulmonary edema. There is no evidence of pleural effusion. There is no evidence of pneumothorax. No fracture is identified. IMPRESSION: No acute abnormality is identified. Interpreted by: Ze Veliz Preliminary Report By: Ze Veliz Electronically signed By Ze Veliz Dictated Date: 11/04/2024 12:02:33 AM Prelim Date: 11/04/2024 12:03:10 AM Sign Date: 11/04/2024 12:03:10 AM Ordering Provider: TEE Carlisle [facility] .Auto Diffon 11-03-2024 Basophil, Absolute 0.1 10 3/mcL Normal 0.0-0.2 [facility] Comment on above: Performed By: #### A SEFERINO, FES, RFP, URIC, CBC, ADIFF, GFR #### [address] [address] #### PTH #### [address] [address] Basophils/100 WBC (Bld) 0.8 % Normal 0.0-2.5 [facility] Comment on above: Performed By: #### A SEFERINO, FES, RFP, URIC, CBC, ADIFF, GFR #### [address] [address] #### PTH #### [address] [address] Eosinophil, Absolute 0.2 10 3/mcL Normal 0.0-0.7 [facility] Comment on above: Performed By: #### A SEFERINO, FES, RFP, URIC, CBC, ADIFF, GFR #### [address] [address] #### PTH #### [address] [address] Eosinophils/100 WBC (Bld) 3.3 % Normal 0.0-7.0 [facility] Comment on above: Performed By: #### A SEFERINO, FES, RFP, URIC, CBC, ADIFF, GFR #### [address] [address] #### PTH #### [address] [address] Lymphocyte, Absolute 1.7 10 3/mcL Normal 0.9-4.3 [facility] Comment on above: Performed By: #### A SEFERINO, FES, RFP, URIC, CBC, ADIFF, GFR #### [address] [address] #### PTH #### [address] [address] Lymphocytes/100 WBC (Bld) 25.5 % Normal 20.0-40.0 [facility] Comment on above: Performed By: #### A SEFERINO, FES, RFP, URIC, CBC, ADIFF, GFR #### [address] [address] #### PTH #### [address] [address] Monocyte, Absolute 0.5 10 3/mcL Normal 0.1-1.4 [facility] Comment on above: Performed By: #### A SEFERINO, FES, RFP, URIC, CBC, ADIFF, GFR #### [place] [id number] #### PTH #### [address] [address] Monocytes/100 WBC (Bld) 8.1 % Normal 2.0-13.0 [facility] Comment on above: Performed By: #### A SEFERINO, FES, RFP, URIC, CBC, ADIFF, GFR #### [address] [address] #### PTH #### [address] [address] Neutrophils/100 WBC (Bld) 62.3 % Normal 50.0-75.0 [facility] Comment on above: Performed By: #### A SEFERINO, FES, RFP, URIC, CBC, ADIFF, GFR #### [address] [address] #### PTH #### [address] [address] .GFRon 11-03-2024 GFR 12 ml/min/1.73sqm [facility] Comment on above: Result Comment: GFR Population mean for , Non- Americans Ages 20-29 = 116 mL/min/1.73 sq.m. Ages 30-39 = 107 mL/min/1.73 sq.m. Ages 40-49 = 99 mL/min/1.73 sq.m. Ages 50-59 = 93 mL/min/1.73 sq.m. Ages 60-69 = 85 mL/min/1.73 sq.m. Ages 70+ = 75 mL/min/1.73 sq.m. Chronic Kidney Disease: Less than 60 mL/min/1.73 square meters End Stage Renal Disease: Less than 15 mL/min/1.73 square meters Performed By: #### A SEFERINO, FES, RFP, URIC, CBC, ADIFF, GFR #### [address] [address] #### PTH #### [address] [address] GFR Non- 10 ml/min/1.73sqm [facility] Comment on above: Result Comment: GFR Population mean for , Non- Americans Ages 20-29 = 116 mL/min/1.73 sq.m. Ages 30-39 = 107 mL/min/1.73 sq.m. Ages 40-49 = 99 mL/min/1.73 sq.m. Ages 50-59 = 93 mL/min/1.73 sq.m. Ages 60-69 = 85 mL/min/1.73 sq.m. Ages 70+ = 75 mL/min/1.73 sq.m. Chronic Kidney Disease: Less than 60 mL/min/1.73 square meters End Stage Renal Disease: Less than 15 mL/min/1.73 square meters Performed By: #### A SEFERINO, FES, RFP, URIC, CBC, ADIFF, GFR #### [address] [address] #### PTH #### [place] [address] .MDWon 11-03-2024 Monocyte Distribution Width 15.10 Normal 0.00-20.00 [facility] Comment on above: Result Comment: For ED adult patients suspected of sepsis, MDW<=20.0 does not rule out sepsis or risk of sepsis Performed By: #### A SEFERINO, FES, RFP, URIC, CBC, ADIFF, GFR #### [address] [address] #### PTH #### [place] [address] .NEUABSon 11-03-2024 Neutrophil, Absolute 4.2 10 3/mcL Normal 2.3-8.1 [facility] Comment on above: Performed By: #### A SEFERINO, FES, RFP, URIC, CBC, ADIFF, GFR #### [place] [address] #### PTH #### [place] [address] BMPon 11-03-2024 BUN/Creatinine Ratio 13 ratio Normal 7-27 [facility] Comment on above: Performed By: #### A SEFERINO, FES, RFP, URIC, CBC, ADIFF, GFR #### [address] [address] #### PTH #### [address] [address] Calcium [Mass/Vol] 8.6 mg/dL Normal 8.4-10.2 [facility] Comment on above: Performed By: #### A SEFERINO, FES, RFP, URIC, CBC, ADIFF, GFR #### [place] [address] #### PTH #### [address] [address] Chloride [Moles/Vol] 101 mmol/L Normal 98-107 [facility] Comment on above: Performed By: #### A SEFERINO, FES, RFP, URIC, CBC, ADIFF, GFR #### [address] [address] #### PTH #### [place] [address] CO2 [Moles/Vol] 29 mmol/L Normal 23-31 [facility] Comment on above: Performed By: #### A SEFERINO, FES, RFP, URIC, CBC, ADIFF, GFR #### [address] [address] #### PTH #### [address] [address] Creatinine [Mass/Vol] 5.93 mg/dL High 0.70-1.30 [facility] Comment on above: Result Comment: Test ing performed on Siemens Dimension EXL analyzer using a modified kinetic Olivia technique. Performed By: #### A SEFERINO, FES, RFP, URIC, CBC, ADIFF, GFR #### [place] [address] #### PTH #### [address] [address] Electrolyte Balance 7.0 mEq/L Normal 4.0-15.0 [facility] Comment on above: Performed By: #### A SEFERINO, FES, RFP, URIC, CBC, ADIFF, GFR #### [address] [address] #### PTH #### [address] [address] Glucose [Mass/Vol] 258 mg/dL High 80-115 [facility] Comment on above: Performed By: #### A SEFERINO, FES, RFP, URIC, CBC, ADIFF, GFR #### [address] [address] #### PTH #### [address] [address] Potassium [Moles/Vol] 4.2 mmol/L Normal 3.5-5.1 [facility] Comment on above: Performed By: #### A SEFERINO, FES, RFP, URIC, CBC, ADIFF, GFR #### [address] [address] #### PTH #### [address] [address] Sodium [Moles/Vol] 137 mmol/L Normal 136-145 [facility] Comment on above: Performed By: #### A SEFERINO, FES, RFP, URIC, CBC, ADIFF, GFR #### [address] [address] #### PTH #### [address] [address] Urea nitrogen [Mass/Vol] 80 mg/dL High 7-18 [facility] Comment on above: Performed By: #### A SEFERINO, FES, RFP, URIC, CBC, ADIFF, GFR #### [address] [address] #### PTH #### [address] [address] CBCon 11-03-2024 Erythrocyte distribution width (RBC) [Ratio] 13.7 % Normal 11.5-15.5 [facility] Comment on above: Performed By: #### A SEFERINO, FES, RFP, URIC, CBC, ADIFF, GFR #### [place] [address] #### PTH #### [place] [address] Hematocrit (Bld) [Volume fraction] 36.9 % Low 40.0-52.0 [facility] Comment on above: Performed By: #### A SEFERINO, FES, RFP, URIC, CBC, ADIFF, GFR #### [address] [address] #### PTH #### [place] [address] Hgb 12.5 G/dL Low 13.0-17.5 [facility] Comment on above: Performed By: #### A SEFERINO, FES, RFP, URIC, CBC, ADIFF, GFR #### [place] [address] #### PTH #### [place] [address] MCH (RBC) [Entitic mass] 27.6 pg Normal 27.0-33.0 [facility] Comment on above: Performed By: #### A SEFERINO, FES, RFP, URIC, CBC, ADIFF, GFR #### [place] [address] #### PTH #### [place] [address] MCHC 34.0 G/dL Normal 32.0-36.0 [facility] Comment on above: Performed By: #### A SEFERINO, FES, RFP, URIC, CBC, ADIFF, GFR #### [place] [address] #### PTH #### [place] [address] MCV (RBC) [Entitic vol] 81.4 fL Normal 81.0-100.0 [facility] Comment on above: Performed By: #### A SEFERINO, FES, RFP, URIC, CBC, ADIFF, GFR #### [place] [address] #### PTH #### [place] [address] Platelet 212 10 3/mcL Normal 150-450 [facility] Comment on above: Performed By: #### A SEFERINO, FES, RFP, URIC, CBC, ADIFF, GFR #### [place] [address] #### PTH #### [place] [address] Platelet mean volume (Bld) [Entitic vol] 7.3 fL Normal 6.4-10.5 [facility] Comment on above: Performed By: #### A SEFERINO, FES, RFP, URIC, CBC, ADIFF, GFR #### [place] [address] #### PTH #### [place] [address] RBC 4.53 10 6/mcL Normal 4.50-6.00 [facility] Comment on above: Performed By: #### A SEFERINO, FES, RFP, URIC, CBC, ADIFF, GFR #### [place] [address] #### PTH #### [place] [address] WBC 6.7 10 3/mcL Normal 4.5-10.8 [facility] Comment on above: Performed By: #### A SEFERINO, FES, RFP, URIC, CBC, ADIFF, GFR #### [place] [address] #### PTH #### [place] [address] LABORATORYOrdered By: SYSTEM SYSTEM on 11-03-2024 aPTT Coag (PPP) [Time] 33.6 s Normal 25.0 - 35.0 seconds AO [facility] SS Comment on above: Interpretive Data: F or Heparin anticoagulation therapy, the recommended therapeutic range is: 45.4-75.9 seconds. Patients on heparin therapy may have an extreme result. Basophils (Bld) [#/Vol] 0.1 103/mcL Normal 0.0 - 0.2 10^3/mcL AO Workflow SS Basophils/100 WBC (Bld) 0.8 % Normal 0.0 - 2.5 % AO Workflow SS Calcium [Mass/Vol] 8.6 mg/dL Normal 8.4 - 10. 2 mg/dL AO ADM SS Chloride [Moles/Vol] 101 mmol/L Normal 98 - 10 7 mmol/L AO ADM SS CO2 [Moles/Vol] 29 mmol/L Normal 23 - 31 mmol/L AO ADM SS Creatinine [Mass/Vol] 5.93 mg/dL High 0.70 - 1.30 mg/dL AO ADM SS Comment on above: Interpretive Data: T esting performed on [employer] Dimension EXL analyzer using a modified kinetic Olivia technique. Electrolyte Balance 7.0 mEq/L Normal 4.0 - 15 .0 mEq/L AO ADM SS Eosinophil, Absolute 0.2 103/mcL Normal 0.0 - 0 .7 10^3/mcL AO Workflow SS Eosinophils/100 WBC (Bld) 3.3 % Normal 0.0 - 7.0 % AO Workflow SS Erythrocyte distribution width (RBC) [Ratio] 13.7 % Normal 11.5 - 15.5 % AO Workflow SS GFR/1.73 sq M.predicted among blacks MDRD (S/P/Bld) [Vol rate/Area] 12 ml/min/1.73sqm Invalid Interpretation Code AO Chemistry S Comment on above: Interpretive Data: GFR Population mean for , Non- Americans Ages 20-29 = 116 mL/min/1.73 sq.m. Ages 30-39 = 107 mL/min/1.73 sq.m. Ages 40-49 = 99 mL/min/1.73 sq.m. Ages 50-59 = 93 mL/min/1.73 sq.m. Ages 60-69 = 85 mL/min/1.73 sq.m. Ages 70+ = 75 mL/min/1.73 sq.m. Chronic Kidney Disease: Less than 60 mL/min/1.73 square meters End Stage Renal Disease: Less than 15 mL/min/1.73 square meters GFR/1.73 sq M.predicted among non-blacks MDRD (S/P/Bld) [Vol rate/Area] 10 ml/min/1.73sqm Invalid Interpretation Code AO Chemistry S Comment on above: Interpretive Data: GFR Population mean for , Non- Americans Ages 20-29 = 116 mL/min/1.73 sq.m. Ages 30-39 = 107 mL/min/1.73 sq.m. Ages 40-49 = 99 mL/min/1.73 sq.m. Ages 50-59 = 93 mL/min/1.73 sq.m. Ages 60-69 = 85 mL/min/1.73 sq.m. Ages 70+ = 75 mL/min/1.73 sq.m. Chronic Kidney Disease: Less than 60 mL/min/1.73 square meters End Stage Renal Disease: Less than 15 mL/min/1.73 square meters Glucose [Mass/Vol] 258 mg/dL High 80 - 115 mg/dL AO ADM SS Hematocrit (Bld) [Volume fraction] 36.9 % Low 40.0 - 52.0 % AO Workflow SS Hemoglobin (Bld) [Mass/Vol] 12.5 G/dL Low 13.0 - 17.5 G/dL AO Workflow SS INR Coag (PPP) [Relative time] 0.9 {INR} Invalid Interpretation Code AO [facility] SS Comment on above: Interpretive Data: [employer] (CHEST, 1992, [id number]) recommended therapeutic range for oral anticoagulant therapy is: LOW RISK: Prophylaxis of venous thrombosis INR: 2.0-3.0 Treatment of pulmonary embolism 2.0-3.0 Prevention of systemic embolism 2.0-3.0 HIGH RISK: Mechanical prosthetic valves 2.5-3.5 Lymphocytes (Bld) [#/Vol] 1.7 103/mcL Normal 0.9 - 4.3 10^3/mcL AO Workflow SS Lymphocytes/100 WBC (Bld) 25.5 % Normal 20.0 - 40.0 % AO Workflow SS MCH (RBC) [Entitic mass] 27.6 pg Normal 27.0 - 33.0 pg AO Workflow SS MCHC 34.0 G/dL Normal 32.0 - 36.0 G/dL AO Workflow SS MCV (RBC) [Entitic vol] 81.4 fL Normal 81.0 - 100.0 fL AO Workflow SS Monocyte distribution width Auto (Bld) [Entitic vol] 15.10 1 Normal 0.00 - 20.00 AO Workflow SS Comment on above: Result Comment: For ED adult patients suspected of sepsis, MDW<=20.0 does not rule out sepsis or risk of sepsis Monocytes (Bld) [#/Vol] 0.5 103/mcL Normal 0.1 - 1.4 10^3/mcL AO Workflow SS Monocytes/100 WBC (Bld) 8.1 % Normal 2.0 - 13.0 % AO Workflow SS Natriuretic peptide.B prohormone N-Terminal [Mass/Vol] 7824 pg/mL High 0 - 125 pg/mL AO ADM SS Comment on above: Interpretive Data: N T-proBNP results of less than 300 pg/mL effectively rules out acute congestive heart failure with 99% negative predictive value. Neutrophils (Bld) [#/Vol] 4.2 103/mcL Normal 2.3 - 8.1 10^3/mcL AO Workflow SS Neutrophils/100 WBC (Bld) 62.3 % Normal 50.0 - 75.0 % AO Workflow SS Platelet mean volume (Bld) [Entitic vol] 7.3 fL Normal 6.4 - 10.5 fL AO Workflow SS Platelets (Bld) [#/Vol] 212 103/mcL Normal 150 - 450 10^3/mcL AO Workflow SS Potassium [Moles/Vol] 4.2 mmol/L Normal 3.5 - 5.1 mmol/L AO ADM SS PT Coag (PPP) [Time] 9.9 s Normal 9.0 - 1 4.4 seconds AO [facility] SS RBC (Bld) [#/Vol] 4.53 106/mcL Normal 4.50 - 6.0 0 10^6/mcL AO Workflow SS Sodium [Moles/Vol] 137 mmol/L Normal 136 - 145 mmol/L AO ADM SS Troponin I.cardiac DL <= 0.01 ng/mL [Mass/Vol] 146 ng/L High 0 - 76 ng/L AO ADM SS Comment on above: Interpretive Data: H igh Sensitive Troponin I Reference Ranges: Female: 0-51 ng/L Male: 0-76 ng/L Testing performed on [employer] using a homogeneous sandwich chemiluminescent immunoassay based on [employer] technology. Urea nitrogen [Mass/Vol] 80 mg/dL High 7 - 18 mg/dL AO ADM SS Urea nitrogen/Creatinine [Mass ratio] 13 ratio Normal 7 - 27 ratio AO ADM SS WBC (Bld) [#/Vol] 6.7 103/mcL Normal 4.5 - 10.8 10^3/mcL AO Workflow SS .Auto Diffon 10-10-2023 Basophil, Absolute 0.0 10 3/mcL Normal 0.0-0.2 [facility] ([place]) Comment on above: Performed By: #### G FR, HFP, CBC, ADIFF, ESR, BMP, ANEU #### [address] [address] Basophils/100 WBC (Bld) 0.6 % Normal 0.0-2.5 A [facility] ([place]) Comment on above: Performed By: #### G FR, HFP, CBC, ADIFF, ESR, BMP, ANEU #### [address] [address] Eosinophil, Absolute 0.1 10 3/mcL Normal 0.0-0.4 [facility] ([place]) Comment on above: Performed By: #### G FR, HFP, CBC, ADIFF, ESR, BMP, ANEU #### [address] [address] Eosinophils/100 WBC (Bld) 1.3 % Normal 0.0-7.0 [facility] ([place]) Comment on above: Performed By: #### G FR, HFP, CBC, ADIFF, ESR, BMP, ANEU #### [address] [address] Lymphocyte, Absolute 1.6 10 3/mcL Normal 0.8-3.9 [facility] ([place]) Comment on above: Performed By: #### G FR, HFP, CBC, ADIFF, ESR, BMP, ANEU #### [address] [address] Lymphocytes/100 WBC (Bld) 26.1 % Normal 10.0-50.0 [facility] ([place]) Comment on above: Performed By: #### G FR, HFP, CBC, ADIFF, ESR, BMP, ANEU #### [address] [address] Monocyte, Absolute 0.4 10 3/mcL Normal 0.2-1.0 [facility] ([place]) Comment on above: Performed By: #### G FR, HFP, CBC, ADIFF, ESR, BMP, ANEU #### [address] [address] Monocytes/100 WBC (Bld) 5.8 % Normal 1.7-13.0 A [facility] ([place]) Comment on above: Performed By: #### G FR, HFP, CBC, ADIFF, ESR, BMP, ANEU #### [address] [address] Neutrophils/100 WBC (Bld) 66.2 % Normal 37.0-80.0 [facility] ([place]) Comment on above: Performed By: #### G FR, HFP, CBC, ADIFF, ESR, BMP, ANEU #### [address] [address] .GFRon 10-10-2023 GFR 23 ml/min/1.73sqm Normal [facility] ([place]) Comment on above: Result Comment: GFR Population mean for , Non- Americans Ages 20-29 = 116 mL/min/1.73 sq.m. Ages 30-39 = 107 mL/min/1.73 sq.m. Ages 40-49 = 99 mL/min/1.73 sq.m. Ages 50-59 = 93 mL/min/1.73 sq.m. Ages 60-69 = 85 mL/min/1.73 sq.m. Ages 70+ = 75 mL/min/1.73 sq.m. Chronic Kidney Disease: Less than 60 mL/min/1.73 square meters End Stage Renal Disease: Less than 15 mL/min/1.73 square meters Performed By: #### G FR, HFP, CBC, ADIFF, ESR, BMP, ANEU #### [address] [address] GFR Non- 19 ml/min/1.73sqm Normal [facility] ([place]) Comment on above: Result Comment: GFR Population mean for , Non- Americans Ages 20-29 = 116 mL/min/1.73 sq.m. Ages 30-39 = 107 mL/min/1.73 sq.m. Ages 40-49 = 99 mL/min/1.73 sq.m. Ages 50-59 = 93 mL/min/1.73 sq.m. Ages 60-69 = 85 mL/min/1.73 sq.m. Ages 70+ = 75 mL/min/1.73 sq.m. Chronic Kidney Disease: Less than 60 mL/min/1.73 square meters End Stage Renal Disease: Less than 15 mL/min/1.73 square meters Performed By: #### G FR, HFP, CBC, ADIFF, ESR, BMP, ANEU #### [address] [address] .NEUABSon 10-10-2023 Neutrophil, Absolute 4.1 10 3/mcL Normal 2.9-6.2 [facility] ([place]) Comment on above: Performed By: #### G FR, HFP, CBC, ADIFF, ESR, BMP, ANEU #### [address] [address] BMPon 10-10-2023 BUN/Creatinine Ratio 9 ratio Normal 7-27 [facility] ([place]) Comment on above: Performed By: #### G FR, HFP, CBC, ADIFF, ESR, BMP, ANEU #### [address] [address] Calcium [Mass/Vol] 8.5 mg/dL Normal 8.4-10.2 [facility] ([place]) Comment on above: Performed By: #### G FR, HFP, CBC, ADIFF, ESR, BMP, ANEU #### [address] [address] Chloride [Moles/Vol] 101 mmol/L Normal 98-107 [facility] ([place]) Comment on above: Performed By: #### G FR, HFP, CBC, ADIFF, ESR, BMP, ANEU #### [address] [address] CO2 [Moles/Vol] 23 mmol/L Normal 23-31 [facility] ([place]) Comment on above: Performed By: #### G FR, HFP, CBC, ADIFF, ESR, BMP, ANEU #### [address] [address] Creatinine [Mass/Vol] 3.37 mg/dL High 0.70-1.30 [facility] ([place]) Comment on above: Performed By: #### G FR, HFP, CBC, ADIFF, ESR, BMP, ANEU #### [address] [address] Electrolyte Balance 11.0 mEq/L Normal 4.0-15.0 [facility] ([place]) Comment on above: Performed By: #### G FR, HFP, CBC, ADIFF, ESR, BMP, ANEU #### [address] [address] Glucose [Mass/Vol] 293 mg/dL High 80-115 [facility] ([place]) Comment on above: Performed By: #### G FR, HFP, CBC, ADIFF, ESR, BMP, ANEU #### [address] [address] Potassium [Moles/Vol] 5.3 mmol/L High 3.5-5.1 [facility] ([place]) Comment on above: Performed By: #### G FR, HFP, CBC, ADIFF, ESR, BMP, ANEU #### [address] [address] Sodium [Moles/Vol] 135 mmol/L Low 136-145 [facility] ([place]) Comment on above: Performed By: #### G FR, HFP, CBC, ADIFF, ESR, BMP, ANEU #### [address] [address] Urea nitrogen [Mass/Vol] 29 mg/dL High 7-18 [facility] ([place]) Comment on above: Performed By: #### G FR, HFP, CBC, ADIFF, ESR, BMP, ANEU #### [address] [address] CBCon 10-10-2023 Erythrocyte distribution width (RBC) [Ratio] 14.9 % High 11.5-14.5 [facility] ([place]) Comment on above: Performed By: #### G FR, HFP, CBC, ADIFF, ESR, BMP, ANEU #### [address] [address] Hematocrit (Bld) [Volume fraction] 36.1 % Low 42.0-52.0 [facility] ([place]) Comment on above: Performed By: #### G FR, HFP, CBC, ADIFF, ESR, BMP, ANEU #### [address] [address] Hgb 11.9 G/dL Low 14.0-18.0 [facility] ([place]) Comment on above: Performed By: #### G FR, HFP, CBC, ADIFF, ESR, BMP, ANEU #### [address] [address] MCH (RBC) [Entitic mass] 26.3 pg Low 27.0-31.2 [facility] ([place]) Comment on above: Performed By: #### G FR, HFP, CBC, ADIFF, ESR, BMP, ANEU #### [address] [address] MCHC 33.0 G/dL Normal 31.8-35.4 [facility] ([place]) Comment on above: Performed By: #### G FR, HFP, CBC, ADIFF, ESR, BMP, ANEU #### [address] [address] MCV (RBC) [Entitic vol] 79.7 fL Low 80.0-94.0 A [facility] ([place]) Comment on above: Performed By: #### G FR, HFP, CBC, ADIFF, ESR, BMP, ANEU #### [address] [address] Platelet 230 10 3/mcL Normal 130-400 [facility] ([place]) Comment on above: Performed By: #### G FR, HFP, CBC, ADIFF, ESR, BMP, ANEU #### [address] [address] Platelet mean volume (Bld) [Entitic vol] 7.4 fL Normal 7.4-10.4 [facility] ([place]) Comment on above: Performed By: #### G FR, HFP, CBC, ADIFF, ESR, BMP, ANEU #### [address] [address] RBC 4.53 10 6/mcL Normal 4.04-6.13 [facility] ([place]) Comment on above: Performed By: #### G FR, HFP, CBC, ADIFF, ESR, BMP, ANEU #### [address] [address] WBC 6.2 10 3/mcL Normal 4.6-10.8 [facility] ([place]) Comment on above: Performed By: #### G FR, HFP, CBC, ADIFF, ESR, BMP, ANEU #### [address] [place], [place] [address]on 10-10-2023 Erythrocyte Sed Rate 25 mm/hr High 0-20 [facility] ([place]) Comment on above: Performed By: #### G FR, HFP, CBC, ADIFF, ESR, BMP, ANEU #### [address] [address] HFPon 10-10-2023 Bili Indirect Unable to Calculate Normal [facility] ([place]) Comment on above: Result Comment: Unab le to calculate this test result accurately. Results used to calculate this test are outside the reportable range. Performed By: #### G FR, HFP, CBC, ADIFF, ESR, BMP, ANEU #### [address] [address] Albumin Level 2.7 G/dL Low 3.4-4.8 [facility] ([place]) Comment on above: Performed By: #### G FR, HFP, CBC, ADIFF, ESR, BMP, ANEU #### [address] [address] Albumin/Globulin [Mass ratio] 0.8 {ratio} Low 1.1-2.5 [facility] ([place]) Comment on above: Performed By: #### G FR, HFP, CBC, ADIFF, ESR, BMP, ANEU #### [address] [address] ALP [Catalytic activity/Vol] 103 U/L Normal 40-135 [facility] ([place]) Comment on above: Performed By: #### G FR, HFP, CBC, ADIFF, ESR, BMP, ANEU #### [address] [address] ALT [Catalytic activity/Vol] 25 U/L Normal 16-63 [facility] ([place]) Comment on above: Performed By: #### G FR, HFP, CBC, ADIFF, ESR, BMP, ANEU #### [place] [id number] AST [Catalytic activity/Vol] 21 U/L Normal 10-40 [facility] ([place]) Comment on above: Performed By: #### G FR, HFP, CBC, ADIFF, ESR, BMP, ANEU #### [address] [address] Bili Direct <0.1 Normal 0.0-0.2 [facility] ([place]) Comment on above: Result Comment: Use of this assay is not recommended for patients undergoing treatment with eltrombopag due to the potential for falsely elevated results. Performed By: #### G FR, HFP, CBC, ADIFF, ESR, BMP, ANEU #### [address] [address] Bili Total 0.2 mg/dL Normal 0.2-1.0 [facility] ([place]) Comment on above: Result Comment: Use of this assay is not recommended for patients undergoing treatment with eltrombopag due to the potential for falsely elevated results. Performed By: #### G FR, HFP, CBC, ADIFF, ESR, BMP, ANEU #### [address] [address] Globulin 3.4 G/dL Normal [facility] ([place]) Comment on above: Performed By: #### G FR, HFP, CBC, ADIFF, ESR, BMP, ANEU #### [address] [address] Total Protein 6.1 G/dL Low 6.4-8.2 [facility] ([place]) Comment on above: Performed By: #### G FR, HFP, CBC, ADIFF, ESR, BMP, ANEU #### [place] [address] [place], [place] [address] Basophil percentageOrdered B y: Laura Cook on 06-26-2023 Bilirubin [Mass/Vol] 0.20 mg/dL 0.20-1.00 [facility] Comment on above: For patients on eltr ombopag therapy, use of Dimension Iselin TBIL is not recommended. Chloride [Moles/Vol] 108 mmol/L 98-107 [facility] Glucose [Mass/Vol] 125 mg/dL 74-106 [facility] Comment on above: Fasting Glucose resu lt from 100 to 125 mg/dL suggests IMPAIRED HOMEOSTASIS per A.D.A. criteria. Potassium [Moles/Vol] 4.3 mmol/L 3.5-5.1 [facility] Protein [Mass/Vol] 6.4 g/dL 6.4-8.2 [facility] Sodium [Moles/Vol] 139 mmol/L 136-145 [facility] WBC (Bld) [#/Vol] 8.2 10*3/uL 4.4-11.0 [facility] Blood erythrocytes count (nu mber/volume)Ordered By: Laura Cook on 06-26-2023 RBC (Bld) [#/Vol] 3.72 10*6/uL 4.6-6.2 [facility] Blood hemoglobin measurement (mass/volume)Ordered By: Laura Cook on 06-26-2023 Hemoglobin (Bld) [Mass/Vol] 10.2 g/dL 13.0-16.5 [facility] Blood platelet mean volumeOr dered By: Laura Cook on 06-26-2023 Platelet mean volume (Bld) [Entitic vol] 9.8 fL 6.2-12.0 [facility] Determination of erythrocyte mean corpuscular volume (MCV)Ordered By: Laura Cook on 06-26-2023 MCV (RBC) [Entitic vol] 86.0 fL 80-94 [facility] Direct bilirubinOrdered By: Laura Cook on 06-26-2023 Bilirubin.direct [Mass/Vol] 0.08 mg/dL 0.00-0.30 [facility] Erythrocyte sedimentation ra teOrdered By: Laura Cook on 06-26-2023 ESR (Bld) [Velocity] 41 mm/h 0-20 [facility] Hematocrit Auto (Bld) [Volum e fraction]Ordered By: Laura Cook on 06-26-2023 Hematocrit (Bld) [Volume fraction] 32.0 % 40-54 [facility] Laboratory - Chemistry and C hemistry - challengeOrdered By: Laura Cook on 06-26-2023 ALP [Catalytic activity/Vol] 115 U/L 45-117 [facility] ALT [Catalytic activity/Vol] 32 U/L 16-61 [facility] CK [Catalytic activity/Vol] 122 U/L 39-308 [facility] CO2 [Moles/Vol] 25.0 mmol/L 21.0-32.0 [facility] Globulin (S) [Mass/Vol] 4.3 g/dL 2.2-4.2 [facility] Urea nitrogen/Creatinine [Mass ratio] 24.5 mg/mg 10-20 [facility] Laboratory - Hematology and Cell countsOrdered By: Laura Cook on 06-26-2023 Erythrocyte distribution width (RBC) [Entitic vol] 39.7 fL 35.1-43.9 [facility] Erythrocyte distribution width (RBC) [Ratio] 12.7 % 11.6-14.6 [facility] MCH (RBC) [Entitic mass] 27.4 pg 27.0-32.0 [facility] MCHC Auto (RBC) [Mass/Vol]Or dered By: Laura Cook on 06-26-2023 MCHC (RBC) [Mass/Vol] 31.9 g/dL 32-36 [facility] No Panel InformationOrdered By: Laura Cook on 06-26-2023 Estimated GFR (MDRD) Amer 27 mL/min >60 [facility] Comment on above: GFR Calc Estimated GFR (MDRD) Non-Af Amer 22 mL/min >60 [facility] Comment on above: Non- GFR Calc Platelets bldOrdered By: Douglas Cook on 06-26-2023 Platelets (Bld) [#/Vol] 269 10*3/uL 150-450 [facility] Serum or plasma albumin shay urement (mass/volume)Ordered By: Laura Cook on 06-26-2023 Albumin [Mass/Vol] 2.1 g/dL 3.2-5.0 [facility] Serum or plasma calcium shay urement (mass/volume)Ordered By: Laura Cook on 06-26-2023 Calcium [Mass/Vol] 8.5 mg/dL 8.5-10.1 [facility] Serum or plasma creatinine m easurement (mass/volume)Ordered By: Laura Cook on 06-26-2023 Creatinine [Mass/Vol] 3.02 mg/dL 0.70-1.30 [facility] Comment on above: The validity of the calculated GFR & GFRAA in patients over 70 years has not been determined. Clinical correlation is essential. Serum or plasma urea nitroge n measurement (mass/volume)Ordered By: Laura Cook on 06-26-2023 Urea nitrogen [Mass/Vol] 74 mg/dL 7-18 [facility] Thin prep Papanicolaou smear with manual screeningOrdered By: Laura Cook on 06-26-2023 Thin prep Papanicolaou smear with manual screening 24 U/L 15-37 [facility] Thin prep Papanicolaou smear with manual screening 6 5-15 [facility] Absolute lymphocyte countOrd ered By: Oly Dexter on 06-07-2023 Lymphocytes Auto (Unsp spec) [#/Vol] 1.33 10*3/uL 0.83-4.51 [facility] Basophil percentageOrdered B y: Oly Dexter on 06-07-2023 Basophils/100 WBC (Bld) 0.6 % 0-1 [facility] Chloride [Moles/Vol] 114 mmol/L 98-107 [facility] Eosinophils/100 WBC (Bld) 4.7 % 0-5 [facility] Glucose [Mass/Vol] 62 mg/dL 74-106 [facility] Neutrophils (Bld) [#/Vol] 5.4 10*3/uL 2.0-7.7 [facility] Neutrophils/100 WBC (Bld) 68.1 % 47-70 [facility] Potassium [Moles/Vol] 4.7 mmol/L 3.5-5.1 [facility] Sodium [Moles/Vol] 145 mmol/L 136-145 [facility] WBC (Bld) [#/Vol] 7.9 10*3/uL 4.4-11.0 [facility] Blood erythrocytes count (nu mber/volume)Ordered By: Oly Dexter on 06-07-2023 RBC (Bld) [#/Vol] 3.41 10*6/uL 4.6-6.2 [facility] Blood hemoglobin measurement (mass/volume)Ordered By: Oly Dexter on 06-07-2023 Hemoglobin (Bld) [Mass/Vol] 9.3 g/dL 13.0-16.5 [facility] Blood lymphocytes/100 leukoc ytesOrdered By: Oly Dexter on 06-07-2023 Lymphocytes/100 WBC (Bld) 16.8 % 19-41 [facility] Blood monocytes/100 leukocyt esOrdered By: Oly Dexter on 06-07-2023 Monocytes/100 WBC (Bld) 9.2 % 0-10 [facility] Blood platelet mean volumeOr dered By: Oly Dexter on 06-07-2023 Platelet mean volume (Bld) [Entitic vol] 9.4 fL 6.2-12.0 [facility] Determination of erythrocyte mean corpuscular volume (MCV)Ordered By: Oly Dexter on 06-07-2023 MCV (RBC) [Entitic vol] 88.6 fL 80-94 [facility] Glucose Glucometer (BldC) [M ass/Vol]Ordered By: Laura Cook on 06-07-2023 Glucose [Mass/Vol] 195 mg/dL 74-106 [facility] Comment on above: MANAGEMENT OF PATIEN T CARE PER NURSING PROTOCOL Hematocrit Auto (Bld) [Volum e fraction]Ordered By: Oly Dexter on 06-07-2023 Hematocrit (Bld) [Volume fraction] 30.2 % 40-54 [facility] Laboratory - Chemistry and C hemistry - challengeOrdered By: Oly Dexter on 06-07-2023 CO2 [Moles/Vol] 28.0 mmol/L 21.0-32.0 [facility] Urea nitrogen/Creatinine [Mass ratio] 19.8 mg/mg 10-20 [facility] Laboratory - Hematology and Cell countsOrdered By: Oly Dexter on 06-07-2023 Erythrocyte distribution width (RBC) [Entitic vol] 43.4 fL 35.1-43.9 [facility] Erythrocyte distribution width (RBC) [Ratio] 13.4 % 11.6-14.6 [facility] Immature granulocytes/100 WBC (Bld) 0.600 % 0.0-0.9 [facility] Comment on above: IG% - Immature Granu locytes (promyelocytes, myelocytes and metamyelocytes) > 1% indicates that a LEFT SHIFT is Present. MCH (RBC) [Entitic mass] 27.3 pg 27.0-32.0 [facility] Nucleated RBC/100 WBC (Bld) [Ratio] 0 % 0-5 [facility] MCHC Auto (RBC) [Mass/Vol]Or dered By: Oly Dexter on 06-07-2023 MCHC (RBC) [Mass/Vol] 30.8 g/dL 32-36 [facility] Comment on above: Delta: 32.6 on 06/06 No Panel InformationOrdered By: Oly Dexter on 06-07-2023 Estimated Creatinine Clearance Calc 17.28 ml/min [facility] Estimated GFR (MDRD) Amer 19 mL/min >60 [facility] Comment on above: GFR Calc Estimated GFR (MDRD) Non-Af Amer 16 mL/min >60 [facility] Comment on above: Non- GFR Calc Platelets bldOrdered By: Taylor Dexter on 06-07-2023 Platelets (Bld) [#/Vol] 254 10*3/uL 150-450 [facility] Serum or plasma calcium shay urement (mass/volume)Ordered By: Oly Dexter on 06-07-2023 Calcium [Mass/Vol] 8.2 mg/dL 8.5-10.1 [facility] Serum or plasma creatinine m easurement (mass/volume)Ordered By: Oly Dexter on 06-07-2023 Creatinine [Mass/Vol] 4.09 mg/dL 0.70-1.30 [facility] Comment on above: The validity of the calculated GFR & GFRAA in patients over 70 years has not been determined. Clinical correlation is essential. Serum or plasma urea nitroge n measurement (mass/volume)Ordered By: Oly Dexter on 06-07-2023 Urea nitrogen [Mass/Vol] 81 mg/dL 7-18 [facility] Thin prep Papanicolaou smear with manual screeningOrdered By: Oly Dexter on 06-07-2023 Thin prep Papanicolaou smear with manual screening 3 5-15 [facility] Laboratory - Chemistry and C hemistry - challengeOrdered By: Ct Campuzano on 06-06-2023 CK [Catalytic activity/Vol] 115 U/L 39-308 [facility] Urine creatinine measurement (mass/volume)Ordered By: Kenneth Garcia on 06-05-2023 Creatinine (U) [Mass/Vol] 78.30 mg/dL NO RANGE EST. [facility] Urine protein measurement (m ass/volume)Ordered By: Kenneth Garcia on 06-05-2023 Protein (U) [Mass/Vol] 484.5 mg/dL 0.0-11.8 [facility] Urine protein/creatinine mas s ratioOrdered By: Kenneth Garcia on 06-05-2023 Protein/Creatinine (U) [Mass ratio] 6188 mg/g CRE 0-200 [facility] Amorphous sediment detection in urine sediment by light microscopyOrdered By: Oly Dexter on 06-02-2023 Amorphous sediment LM Ql (Urine sed) 1+ URATE [facility] [facility] Basophil percentageOrdered B y: Oly Dexter on 06-02-2023 Basophil percentage 0-5 SEEN /hpf 0-5 [facility] Bilirubin Test strip Ql (U)O rdered By: Oly Dexter on 06-02-2023 Bilirubin Ql (U) Negative Negative [facility] Ketones Test strip Ql (U)Ord ered By: Oly Dexter on 06-02-2023 Ketones Ql (U) Negative Negative [facility] Laboratory - Chemistry and C hemistry - challengeOrdered By: Oly Dexter on 06-02-2023 Sodium (U) [Moles/Vol] 10 mmol/L Not Establ. [facility] Mucus LM Ql (Urine sed)Order ed By: Oly Dexter on 06-02-2023 Mucus Ql (Urine sed) 0 SEEN /hpf [facility] Nitrite Test strip Ql (U)Ord ered By: Oly Dexter on 06-02-2023 Nitrite Ql (U) Negative Negative [facility] No Panel InformationOrdered By: Oly Dexter on 06-02-2023 Urine Potassium 23.0 mmol/L Not Establ. [facility] Urine Urea Nitrogen 307 mg/dL NO RANGE EST. [facility] Protein Test strip Ql (U)Ord ered By: Oly Dexter on 06-02-2023 Protein Ql (U) 500 mg/dl Negative [facility] Squamous epithelial cells de tection in urine sediment by light microscopyOrdered By: Oly Dexter on 06-02-2023 Epithelial cells.squamous LM Ql (Urine sed) 0-5 SEEN /hpf 0-5 [facility] Thin prep Papanicolaou smear with manual screeningOrdered By: Oly Dexter on 06-02-2023 Thin prep Papanicolaou smear with manual screening < 10 mmol/L Not Establ. [facility] Urine blood detectionOrdered By: Oly Dexter on 06-02-2023 RBC Ql (U) 25 /ul Negative [facility] RBC Ql (U) 0-5 SEEN /hpf 0-5 [facility] Urine clarityOrdered By: Taylor Dexter on 06-02-2023 Clarity (U) Sl. Cloudy Clear [facility] Urine color determinationOrd ered By: Oly Dexter on 06-02-2023 Color (U) Yellow Yellow [facility] Urine glucose detectionOrder ed By: Oly Dexter on 06-02-2023 Glucose Ql (U) Normal mg/dl Normal [facility] Urine leukocyte esterase det ection by dipstickOrdered By: Oly Dexter on 06-02-2023 Leukocyte esterase Test strip Ql (U) Negative Negative [facility] Urine osmolality measurement Ordered By: Oly Dexter on 06-02-2023 Osmolality (U) [Osmolality] 216 mOsm/KG >50 [facility] Comment on above: Normal Urine Referen ce Ranges Random: 50 - 1200 mOsm/kg H20 depending on fluid intake Random: >850 mOsm/kg after 12 hour fluid restriction 24 hour: ~300 - 900 mOsm/kg H2O Urine pHOrdered By: Oly tinsley on 06-02-2023 pH (U) 6.0 [pH] 5.0 - 8.0 [facility] Urine sediment bacteria coun t by microscopy (number/high power field)Ordered By: Oly Dexter on 06-02-2023 Bacteria LM.HPF (Urine sed) [#/Area] RARE /hpf None Seen [facility] Urine sediment fine granular cast count by microscopy (number/low power field)Ordered By: Oly Dexter on 06-02-2023 Fine Granular Casts LM.LPF (Urine sed) [#/Area] 0-5 SEEN /lpf 0-5 [facility] Urine specific gravity measu rementOrdered By: Oly Dexter on 06-02-2023 Specific gravity (U) [Rel density] 1.015 1.002-1.030 [facility] Urobilinogen Auto test strip Ql (U)Ordered By: Oly Dexter on 06-02-2023 Urobilinogen Ql (U) Normal mg/dl Normal [facility] Anaerobic cultureOrdered By: Laura Cook on 05-31-2023 Bacteria identified Anaer cx Nom (Unsp spec) No growth in 5 days. [facility] Bacteria identified Cx Nom ( Wound)Ordered By: Laura Cook on 05-31-2023 Wound Culture Pseudomonas aeruginosa [facility] Wound Culture Meth. resistant Staph. aureus [facility] Gram stain for investigation of transfusion reactionOrdered By: Laura Cook on 05-31-2023 Microscopic observation Gram stain Nom (Unsp spec) [facility] Laboratory - Chemistry and C hemistry - challengeOrdered By: Daniel Murillo on 05-19-2023 Magnesium [Mass/Vol] 2.8 mg/dL 1.6-2.6 [facility] Serum or plasma albumin shay urement (mass/volume)Ordered By: Laura Cook on 05-19-2023 Albumin [Mass/Vol] 2.4 g/dL 3.2-5.0 [facility] Whole blood hemoglobin A1c/t otal hemoglobin ratio (mass fraction)Ordered By: Laura Cook on 05-19-2023 HbA1c (Bld) [Mass fraction] 7.2 % 3.8-5.6 [facility] Comment on above: Normal < 5.7 % Predi abetic 5.7 - 6.4 % Diabetic >or= 6.5 % Please note range changes. LABORATORYOrdered By: SYSTEM SYSTEM on 04-22-2023 Albumin BCP dye [Mass/Vol] 3.2 G/dL Invalid Interpretation Code 3.4 - 4.8 G/dL AO ADM SS Calcium [Mass/Vol] 8.8 mg/dL Invalid Interpretation Code 8.4 - 10.2 mg/dL AO ADM SS Chloride [Moles/Vol] 107 mmol/L Invalid Interpretation Code 98 - 107 mmol/L AO ADM SS CO2 [Moles/Vol] 29 mmol/L Invalid Interpretation Code 23 - 31 mmol/L AO ADM SS Creatinine [Mass/Vol] 2.70 mg/dL Invalid Interpretation Code 0.70 - 1.30 mg/dL AO ADM SS Electrolyte Balance 7.0 mEq/L Invalid Interpretation Code 4.0 - 15.0 mEq/L AO ADM SS GFR/1.73 sq M.predicted among blacks MDRD (S/P/Bld) [Vol rate/Area] 29 ml/min/1.73sqm Invalid Interpretation Code AO Chemistry S GFR/1.73 sq M.predicted among non-blacks MDRD (S/P/Bld) [Vol rate/Area] 24 ml/min/1.73sqm Invalid Interpretation Code AO Chemistry S Glucose [Mass/Vol] 52 mg/dL Invalid Interpretation Code 80 - 115 mg/dL AO ADM SS HbA1c (Bld) [Mass fraction] 7.3 % Invalid Interpretation Code 4.3 - 6.4 % AO ADM SS Potassium [Moles/Vol] 4.9 mmol/L Invalid Interpretation Code 3.5 - 5.1 mmol/L AO ADM SS Sodium [Moles/Vol] 143 mmol/L Invalid Interpretation Code 136 - 145 mmol/L AO ADM SS Urea nitrogen [Mass/Vol] 35 mg/dL Invalid Interpretation Code 7 - 18 mg/dL AO ADM SS Urea nitrogen/Creatinine [Mass ratio] 13 ratio Invalid Interpretation Code 7 - 27 ratio AO ADM SS LABORATORYOrdered By: Alem Torres on 04-22-2023 Basophil, Absolute 0.0 103/mcL Invalid Interpretation Code 0.0 - 0.2 10^3/mcL AO Workflow SS Basophils/100 WBC (Bld) 0.6 % Invalid Interpretation Code 0.0 - 2.5 % AO Workflow SS Eosinophil, Absolute 0.1 103/mcL Invalid Interpretation Code 0.0 - 0.4 10^3/mcL AO Workflow SS Eosinophils/100 WBC (Bld) 2.1 % Invalid Interpretation Code 0.0 - 7.0 % AO Workflow SS Erythrocyte distribution width (RBC) [Ratio] 13.9 % Invalid Interpretation Code 11.5 - 14.5 % AO Workflow SS Hematocrit (Bld) [Volume fraction] 39.7 % Invalid Interpretation Code 42.0 - 52.0 % AO Workflow SS Hemoglobin (Bld) [Mass/Vol] 13.2 G/dL Invalid Interpretation Code 14.0 - 18.0 G/dL AO Workflow SS Lymphocyte, Absolute 1.5 103/mcL Invalid Interpretation Code 0.8 - 3.9 10^3/mcL AO Workflow SS Lymphocytes/100 WBC (Bld) 25.6 % Invalid Interpretation Code 10.0 - 50.0 % AO Workflow SS MCH (RBC) [Entitic mass] 27.2 pg Invalid Interpretation Code 27.0 - 31.2 pg AO Workflow SS MCHC 33.3 G/dL Invalid Interpretation Code 31.8 - 35.4 G/dL AO Workflow SS MCV (RBC) [Entitic vol] 81.5 fL Invalid Interpretation Code 80.0 - 94.0 fL AO Workflow SS Monocyte, Absolute 0.4 103/mcL Invalid Interpretation Code 0.2 - 1.0 10^3/mcL AO Workflow SS Monocytes/100 WBC (Bld) 7.4 % Invalid Interpretation Code 1.7 - 13.0 % AO Workflow SS Neutrophil, Absolute 3.9 103/mcL Invalid Interpretation Code 2.9 - 6.2 10^3/mcL AO Workflow SS Neutrophils/100 WBC (Bld) 64.3 % Invalid Interpretation Code 37.0 - 80.0 % AO Workflow SS Platelet mean volume (Bld) [Entitic vol] 7.2 fL Invalid Interpretation Code 7.4 - 10.4 fL AO Workflow SS Platelets (Bld) [#/Vol] 218 103/mcL Invalid Interpretation Code 130 - 400 10^3/mcL AO Workflow SS RBC (Bld) [#/Vol] 4.87 106/mcL Invalid Interpretation Code 4.04 - 6.13 10^6/mcL AO Workflow SS WBC (Bld) [#/Vol] 6.0 103/mcL Invalid Interpretation Code 4.6 - 10.8 10^3/mcL AO Workflow SS LABORATORYOrdered By: Nishi Walton on 04-22-2023 MRSA DNA ABHI+probe Ql (Unsp spec) Not Detected 1 (04/22/23 8:06 AM) Invalid Interpretation Code Not Detected Auto Viro/Sero SS Comment on above: Result Comment: Note s [id number] MRSA PCR Int MRSA DNA not detecte d by Real-Time Polymerase Chain Reaction (PCR). A negative result may be due to intermittent colonization. Colonization may vary depending on patient treatment, patient status, or exposure to high-risk environments.As with all PCR based in vitro diagnostic tests, extremely low levels of target below the limit of detection of the assay may be detected, but results may not be reproducible. Invalid Interpretation Code Auto Viro/Sero SS LABORATORYOrdered By: Yvonne Richardson on 10-26-2022 Albumin BCP dye [Mass/Vol] 3.3 G/dL Invalid Interpretation Code 3.4 - 4.8 G/dL AO ADM SS Calcium [Mass/Vol] 8.8 mg/dL Invalid Interpretation Code 8.4 - 10.2 mg/dL AO ADM SS Chloride [Moles/Vol] 100 mmol/L Invalid Interpretation Code 98 - 107 mmol/L AO ADM SS CO2 [Moles/Vol] 28 mmol/L Invalid Interpretation Code 23 - 31 mmol/L AO ADM SS Creatinine [Mass/Vol] 3.28 mg/dL Invalid Interpretation Code 0.70 - 1.30 mg/dL AO ADM SS Electrolyte Balance 9.0 mEq/L Invalid Interpretation Code 4.0 - 15.0 mEq/L AO ADM SS Glucose [Mass/Vol] 122 mg/dL Invalid Interpretation Code 80 - 115 mg/dL AO ADM SS Potassium [Moles/Vol] 4.7 mmol/L Invalid Interpretation Code 3.5 - 5.1 mmol/L AO ADM SS Sodium [Moles/Vol] 137 mmol/L Invalid Interpretation Code 136 - 145 mmol/L AO ADM SS Urea nitrogen [Mass/Vol] 68 mg/dL Invalid Interpretation Code 7 - 18 mg/dL AO ADM SS Urea nitrogen/Creatinine [Mass ratio] 21 ratio Invalid Interpretation Code 7 - 27 ratio AO ADM SS LABORATORYOrdered By: Terence Treviño on 10-26-2022 Basophil, Absolute 0.0 103/mcL Invalid Interpretation Code 0.0 - 0.2 10^3/mcL AO Workflow SS Basophils/100 WBC (Bld) 0.3 % Invalid Interpretation Code 0.0 - 2.5 % AO Workflow SS Eosinophil, Absolute 0.1 103/mcL Invalid Interpretation Code 0.0 - 0.4 10^3/mcL AO Workflow SS Eosinophils/100 WBC (Bld) 1.3 % Invalid Interpretation Code 0.0 - 7.0 % AO Workflow SS Erythrocyte distribution width (RBC) [Ratio] 13.4 % Invalid Interpretation Code 11.5 - 14.5 % AO Workflow SS Hematocrit (Bld) [Volume fraction] 38.7 % Invalid Interpretation Code 42.0 - 52.0 % AO Workflow SS Hemoglobin (Bld) [Mass/Vol] 13.2 G/dL Invalid Interpretation Code 14.0 - 18.0 G/dL AO Workflow SS Lymphocyte, Absolute 1.9 103/mcL Invalid Interpretation Code 0.8 - 3.9 10^3/mcL AO Workflow SS Lymphocytes/100 WBC (Bld) 28.4 % Invalid Interpretation Code 10.0 - 50.0 % AO Workflow SS MCH (RBC) [Entitic mass] 27.7 pg Invalid Interpretation Code 27.0 - 31.2 pg AO Workflow SS MCHC 34.2 G/dL Invalid Interpretation Code 31.8 - 35.4 G/dL AO Workflow SS MCV (RBC) [Entitic vol] 80.8 fL Invalid Interpretation Code 80.0 - 94.0 fL AO Workflow SS Monocyte, Absolute 0.5 103/mcL Invalid Interpretation Code 0.2 - 1.0 10^3/mcL AO Workflow SS Monocytes/100 WBC (Bld) 7.3 % Invalid Interpretation Code 1.7 - 13.0 % AO Workflow SS Neutrophil, Absolute 4.2 103/mcL Invalid Interpretation Code 2.9 - 6.2 10^3/mcL AO Workflow SS Neutrophils/100 WBC (Bld) 62.7 % Invalid Interpretation Code 37.0 - 80.0 % AO Workflow SS Platelet mean volume (Bld) [Entitic vol] 7.4 fL Invalid Interpretation Code 7.4 - 10.4 fL AO Workflow SS Platelets (Bld) [#/Vol] 210 103/mcL Invalid Interpretation Code 130 - 400 10^3/mcL AO Workflow SS RBC (Bld) [#/Vol] 4.79 106/mcL Invalid Interpretation Code 4.04 - 6.13 10^6/mcL AO Workflow SS WBC (Bld) [#/Vol] 6.7 103/mcL Invalid Interpretation Code 4.6 - 10.8 10^3/mcL AO Workflow SS LABORATORYOrdered By: SYSTEM SYSTEM on 10-26-2022 GFR 23 ml/min/1.73sqm Invalid Interpretation Code AO Chemistry S GFR Non- 19 ml/min/1.73sqm Invalid Interpretation Code AO Chemistry S LABORATORYOrdered By: Marcie Bains on 09-09-2022 ABO/Rh Interp Positive Invalid Interpretation Code AO BB SS Albumin BCP dye [Mass/Vol] 3.3 G/dL Invalid Interpretation Code 3.4 - 4.8 G/dL AO ADM SS Antibody Screen Gel Negative ABSC (09/09/22 8:32 AM) Invalid Interpretation Code AO BB SS Basophil, Absolute 0.0 103/mcL Invalid Interpretation Code 0.0 - 0.2 10^3/mcL AO Workflow SS Basophils/100 WBC (Bld) 0.4 % Invalid Interpretation Code 0.0 - 2.5 % AO Workflow SS Calcium [Mass/Vol] 8.8 mg/dL Invalid Interpretation Code 8.4 - 10.2 mg/dL AO ADM SS Chloride [Moles/Vol] 105 mmol/L Invalid Interpretation Code 98 - 107 mmol/L AO ADM SS CO2 [Moles/Vol] 28 mmol/L Invalid Interpretation Code 23 - 31 mmol/L AO ADM SS Creatinine [Mass/Vol] 2.09 mg/dL Invalid Interpretation Code 0.70 - 1.30 mg/dL AO ADM SS Electrolyte Balance 8.0 mEq/L Invalid Interpretation Code 4.0 - 15.0 mEq/L AO ADM SS Eosinophil, Absolute 0.1 103/mcL Invalid Interpretation Code 0.0 - 0.4 10^3/mcL AO Workflow SS Eosinophils/100 WBC (Bld) 1.2 % Invalid Interpretation Code 0.0 - 7.0 % AO Workflow SS Erythrocyte distribution width (RBC) [Ratio] 13.7 % Invalid Interpretation Code 11.5 - 14.5 % AO Workflow SS Glucose [Mass/Vol] 69 mg/dL Invalid Interpretation Code 80 - 115 mg/dL AO ADM SS HbA1c (Bld) [Mass fraction] 6.7 % Invalid Interpretation Code 4.3 - 6.4 % AO ADM SS Hematocrit (Bld) [Volume fraction] 41.6 % Invalid Interpretation Code 42.0 - 52.0 % AO Workflow SS Hemoglobin (Bld) [Mass/Vol] 14.2 G/dL Invalid Interpretation Code 14.0 - 18.0 G/dL AO Workflow SS Lymphocyte, Absolute 1.0 103/mcL Invalid Interpretation Code 0.8 - 3.9 10^3/mcL AO Workflow SS Lymphocytes/100 WBC (Bld) 17.9 % Invalid Interpretation Code 10.0 - 50.0 % AO Workflow SS MCH (RBC) [Entitic mass] 27.3 pg Invalid Interpretation Code 27.0 - 31.2 pg AO Workflow SS MCHC 34.0 G/dL Invalid Interpretation Code 31.8 - 35.4 G/dL AO Workflow SS MCV (RBC) [Entitic vol] 80.2 fL Invalid Interpretation Code 80.0 - 94.0 fL AO Workflow SS Monocyte, Absolute 0.4 103/mcL Invalid Interpretation Code 0.2 - 1.0 10^3/mcL AO Workflow SS Monocytes/100 WBC (Bld) 6.2 % Invalid Interpretation Code 1.7 - 13.0 % AO Workflow SS Neutrophil, Absolute 4.3 103/mcL Invalid Interpretation Code 2.9 - 6.2 10^3/mcL AO Workflow SS Neutrophils/100 WBC (Bld) 74.3 % Invalid Interpretation Code 37.0 - 80.0 % AO Workflow SS Platelet mean volume (Bld) [Entitic vol] 7.1 fL Invalid Interpretation Code 7.4 - 10.4 fL AO Workflow SS Platelets (Bld) [#/Vol] 192 103/mcL Invalid Interpretation Code 130 - 400 10^3/mcL AO Workflow SS Potassium [Moles/Vol] 4.2 mmol/L Invalid Interpretation Code 3.5 - 5.1 mmol/L AO ADM SS RBC (Bld) [#/Vol] 5.19 106/mcL Invalid Interpretation Code 4.04 - 6.13 10^6/mcL AO Workflow SS Sodium [Moles/Vol] 141 mmol/L Invalid Interpretation Code 136 - 145 mmol/L AO ADM SS Urea nitrogen [Mass/Vol] 33 mg/dL Invalid Interpretation Code 7 - 18 mg/dL AO ADM SS Urea nitrogen/Creatinine [Mass ratio] 16 ratio Invalid Interpretation Code 7 - 27 ratio AO ADM SS WBC (Bld) [#/Vol] 5.9 103/mcL Invalid Interpretation Code 4.6 - 10.8 10^3/mcL AO Workflow SS LABORATORYOrdered By: SYSTEM SYSTEM on 09-09-2022 GFR 39 ml/min/1.73sqm Invalid Interpretation Code AO Chemistry S GFR Non- 32 ml/min/1.73sqm Invalid Interpretation Code AO Chemistry S Blood lymphocytes/100 leukoc yteson 06-30-2022 Lymphocytes/100 WBC (Bld) 49 % [facility] Work Phone: Color of Synovial fluidon Color (Syn fld) Yellow Pale Yellow [facility] Work Phone: Determination of appearance of synovial fluidon 06-30-2022 Appearance (Syn fld) Sl Cl CLEAR [facility] Work Phone: No Panel Informationon 06-30 Synovial Fluid Mononuclear WBCs 0.096 10^3/ul [facility] Work Phone: Synovial Fluid Mononuclear WBCs % 59.3 % [facility] Work Phone: Synovial Fluid Polynuclear WBCs 0.066 10^3/uL [facility] Work Phone: Synovial Fluid Polynuclear WBCs % 40.7 % [facility] Work Phone: Synovial Fluid Total Cells Counted 0.1710 10^3/uL 0.000-0.000 [facility] Work Phone: Comment on above: This is the Total Nu mber of Nucleated Cell Types in the Body Fluid. Review by pathologiston Pathologist review Hill (Unsp spec) [Interp] Reviewed [facility] Work Phone: Comment on above: Previous reported re sult: May follow Edited by: RGOSELENA on 07/01/22:1313Negative for malignant cells.Андрей Gil M.D. 07/01/22 AMENDED REPORT 07/01/22 1313 PATH COM/SYFL previously reported as: May follow Specimen source identificati on of body fluidon 06-30-2022 Specimen source Nom (Body fld) R KNEE [facility] Work Phone: Synovial fluid erythrocytes count (number/volume)on 06-30-2022 RBC (Syn fld) [#/Vol] 0.011 10^6/uL 0-0 [facility] Work Phone: Synovial fluid leukocytes co unt (number/volume)on 06-30-2022 WBC (Syn fld) [#/Vol] 0.1620 10^3/uL 0.000-0.00 2 [facility] Work Phone: Synovial fluid monocyte perc entageon 06-30-2022 Monocytes/100 WBC (Syn fld) 36 % [facility] Work Phone: Synovial fluid neutrophil pe rcentageon 06-30-2022 Neutrophils/100 WBC (Syn fld) 15 % 0-25 [facility] Work Phone: Absolute lymphocyte counton 06-16-2022 Lymphocytes Auto (Unsp spec) [#/Vol] 1.60 10*3/uL 0.83-4.51 [facility] Work Phone: Basophil percentageon 2021 Basophils/100 WBC (Bld) 0.4 % 0-1 [facility] Work Phone: Eosinophils/100 WBC (Bld) 1.5 % 0-5 [facility] Work Phone: Neutrophils (Bld) [#/Vol] 4.6 10*3/uL 2.0-7.7 [facility] Work Phone: Neutrophils/100 WBC (Bld) 66.5 % 47-70 [facility] Work Phone: WBC (Bld) [#/Vol] 6.9 10*3/uL 4.4-11.0 [facility] Work Phone: Blood erythrocytes count (nu mber/volume)on 06-16-2022 RBC (Bld) [#/Vol] 4.97 10*6/uL 4.6-6.2 [facility] Work Phone: Blood hemoglobin measurement (mass/volume)on 06-16-2022 Hemoglobin (Bld) [Mass/Vol] 13.5 g/dL 13.0-16.5 [facility] Work Phone: Blood lymphocytes/100 leukoc yteson 06-16-2022 Lymphocytes/100 WBC (Bld) 23.3 % 19-41 [facility] Work Phone: Blood monocytes/100 leukocyt eson 06-16-2022 Monocytes/100 WBC (Bld) 8.0 % 0-10 [facility] Work Phone: Blood platelet mean volumeon 06-16-2022 Platelet mean volume (Bld) [Entitic vol] 10.0 fL 6.2-12.0 [facility] Work Phone: Determination of erythrocyte mean corpuscular volume (MCV)on 06-16-2022 MCV (RBC) [Entitic vol] 84.1 fL 80-94 [facility] Work Phone: Erythrocyte sedimentation ra camila 06-16-2022 ESR (Bld) [Velocity] 36 mm/h 0-20 [facility]: [phone] Hematocrit Auto (Bld) [Volum e fraction]on 06-16-2022 Hematocrit (Bld) [Volume fraction] 41.8 % 40-54 [facility] Work Phone: Laboratory - Hematology and Cell countson 06-16-2022 Erythrocyte distribution width (RBC) [Entitic vol] 41.1 fL 35.1-43.9 [facility] Work Phone: Erythrocyte distribution width (RBC) [Ratio] 13.3 % 11.6-14.6 [facility] Work Phone: Immature granulocytes/100 WBC (Bld) 0.300 % 0.0-0.9 [facility] Work Phone: Comment on above: IG% - Immature Granu locytes (promyelocytes, myelocytes and metamyelocytes) > 1% indicates that a LEFT SHIFT is Present. MCH (RBC) [Entitic mass] 27.2 pg 27.0-32.0 [facility] Work Phone: Nucleated RBC/100 WBC (Bld) [Ratio] 0 % 0-5 [facility] Work Phone: MCHC Auto (RBC) [Mass/Vol]on 06-16-2022 MCHC (RBC) [Mass/Vol] 32.3 g/dL 32-36 [facility] Work Phone: Platelets bldon 06-16-2022 Platelets (Bld) [#/Vol] 186 10*3/uL 150-450 [facility] Work Phone: Serum or plasma C reactive p rotein measurement (mass/volume)on 06-16-2022 CRP [Mass/Vol] 6.76 mg/L 0.0-3.0 [facility] Work Phone: Comment on above: C-Reactive Protein ( CRP) provides useful information for thediagnosis, therapy and monitoring of inflammatory processesand associated diseases. For the evaluation of Relative Riskfor Cardiovascular Disease, a High Sensitivity CRP (HSCRP)should be ordered. LABORATORYOrdered By: Alem Torres on 09-18-2021 ADMITTED TO INTENSIVE CARE UNIT FOR CONDITION OF INTEREST:FIND:PT:^JUDI NT:ORD: No (09/18/21 10:15 AM) Invalid Interpretation Code AO Auto Urine SS EMPLOYED IN A HEALTHCARE SETTING:FIND:PT:^KACEYEN T:ORD: No (09/18/21 10:15 AM) Invalid Interpretation Code AO Auto Urine SS FIRST TEST FOR CONDITION OF INTEREST:FIND:PT:^JUDI NT:ORD: Yes (09/18/21 10:15 AM) Invalid Interpretation Code AO Auto Urine SS HAS SYMPTOMS RELATED TO CONDITION OF INTEREST:FIND:PT:^JUDI NT:ORD: Yes (09/18/21 10:15 AM) Invalid Interpretation Code AO Auto Urine SS Illness or injury onset date and time [id number] Invalid Interpretation Code AO Auto Urine SS Patient was hospitalized because of this condition No (09/18/21 10:15 AM) Invalid Interpretation Code AO Auto Urine SS status Not (09/18/21 10:15 AM) Invalid Interpretation Code AO Auto Urine SS RESIDES IN A CONGREGATE CARE SETTING:FIND:PT:^DEYSI T:ORD: No (09/18/21 10:15 AM) Invalid Interpretation Code AO Auto Urine SS SARS-CoV-2 (COVID-19) RNA ABHI+probe Ql (Resp) Negative (09/18/21 10:15 AM) Invalid Interpretation Code Negative AO Auto Urine SS SARS-CoV-2 (COVID-19) RNA ABHI+probe Ql (Unsp spec) Negative results do not preclude SARS-CoV-2 infection and should not be used as the sole basis for patient management decisions. Negative results must be combined with clinical observations, patient history, and epidemiological information.There is a risk of false negative values resulting from improperly collected, transported, or handled specimens.There is a risk of false negative values due to the presence of sequence variants in the pathogen targets of the assay, procedural errors, amplification inhibitors in specimens, or inadequate numbers of organisms for amplification.[employer] SARS-CoV-2 Assay is a Real-Time reverse-transcriptase polymerase chain reaction (RT-PCR) based qualitative in vitro diagnostic test intended for the qualitative detection of nucleic acid from the SARS-CoV-2 in nasopharyngeal swab specimens collected from individuals suspected of COVID-19 by their healthcare provider. Testing is limited to laboratories certified under the Clinical Laboratory Improvement Amendments of 1988 (CLIA), 42 U.S.C. 263a, to perform moderate and high complexity tests. Invalid Interpretation Code AO Auto Urine SS Misc. Send Outon 06-08-2017 [facility] [place]. Send Out SEE BELOW [facility] Comment on above: Order Comment: ROLO SURINDER HENSELAE AB IGM Result Comment: see separate report Performed By: #### M ISC ####[address] Send Out SEE BELOW [facility] Comment on above: Order Comment: TREPO NEMA PALLIDUM AB Result Comment: Trep onema pallidum Ab= Nonreactive (Reference Range= Nonreactive)Particle AgglutinationTest performed by: [facility] [address] [facility] [address] [place] Performed By: #### M ISC ####[address] [address] Angiotensin Enzymeon 017 Angiotensin Enzyme 66.0 U/L Normal [facility] Comment on above: Order Comment: ROLO SURINDER HENSELAE AB IGM Performed By: #### A CE ####[address] [address] Lysozymeon 06-01-2017 Lysozyme 7.7 mcg/mL Normal 4.0-10.3 [facility] Comment on above: Order Comment: ROLO SURINDER HENSELAE AB IGM Result Comment: This test was developed and its analytical performance characteristicshave been determined by [employer] [place], [place]. It has not been cleared or approved by the U.S. Food and DrugAdministration. This assay has been validated pursuant to the CLIAregulations and is used for clinical purposes. Performed By: #### L YSOP ####[address] [address] C-Reactive Proteinon 017 C reactive protein (CRP) 0.47 mg/dL Normal 0.00-0.80 [facility] Comment on above: Order Comment: ROLO SURINDER HENSELAE AB IGM Performed By: #### C RP ####[facility] [address] [place] [id number] CBC (AO)on 05-29-2017 Basophils Auto #/vol (Bld) 0.00 10 3/mcL Normal 0.00-0.19 [facility] Comment on above: Order Comment: ROLO SURINDER HENSELAE AB IGM Performed By: #### C BCO ####[address] [address] Basophils/100 WBC Auto (Bld) 0.5 % Normal 0.0-2.5 [facility] Comment on above: Order Comment: ROLO SURINDER HENSELAE AB IGM Performed By: #### C BCO ####[address] [address] Eosinophils 0.10 10 3/mcL Normal 0.00-0.40 [facility] Comment on above: Order Comment: ROLO SURINDER HENSELAE AB IGM Performed By: #### C BCO ####[address] [address] Eosinophils/100 leukocytes 0.9 % Normal 0.0-7.0 [facility] Comment on above: Order Comment: ROLO SURINDER HENSELAE AB IGM Performed By: #### C BCO ####[address] [address] Erythrocyte distribution width Auto Ratio (RBC) 13.8 % Normal 11.5-14.5 [facility] Comment on above: Order Comment: ROLO SURINDER HENSELAE AB IGM Performed By: #### C BCO ####[address] [address] Erythrocytes (RBC) 5.59 10 6/mcL Normal 4.04-6.13 [facility] Comment on above: Order Comment: ROLO SURINDER HENSELAE AB IGM Performed By: #### C BCO ####[address] [address] Hematocrit (HCT) 44.0 % Normal 42.0-52.0 [facility] Comment on above: Order Comment: ROLO SURINDER HENSELAE AB IGM Performed By: #### C BCO ####[address] [address] Hemoglobin mass conc (Bld) 14.8 G/dL Normal 14.0-18.0 [facility] Comment on above: Order Comment: ROLO SURINDER HENSELAE AB IGM Performed By: #### C BCO ####[address] [address] Lymphocytes 1.90 10 3/mcL Normal 0.77-3.85 [facility] Comment on above: Order Comment: ROLO SURINDER HENSELAE AB IGM Performed By: #### C BCO ####[address] [address] Lymphocytes/100 leukocytes 31.1 % Normal 10.0-50.0 [facility] Comment on above: Order Comment: ROLO SURINDER HENSELAE AB IGM Performed By: #### C BCO ####[address] [address] MCH 26.5 pg Low 27.0-31.2 [facility] Comment on above: Order Comment: ROLO SURINDER HENSELAE AB IGM Performed By: #### C BCO ####[address] [address] MCHC mass conc (RBC) 33.7 G/dL Normal 31.8-35.4 [facility] Comment on above: Order Comment: ROLO SURINDER HENSELAE AB IGM Performed By: #### C BCO ####[address] [address] MCV 78.7 fL Low 80.0-94.0 [facility] Comment on above: Order Comment: ROLO SURINDER HENSELAE AB IGM Performed By: #### C BCO ####[address] [address] Monocytes 0.50 10 3/mcL Normal 0.15-1.00 [facility] Comment on above: Order Comment: ROLO SURINDER HENSELAE AB IGM Performed By: #### C BCO ####[address] [address] Monocytes/100 leukocytes 7.5 % Normal 1.7-13.0 [facility] Comment on above: Order Comment: ROLO SURINDER HENSELAE AB IGM Performed By: #### C BCO ####[address] [address] Neutrophils 3.80 10 3/mcL Normal 2.85-6.16 [facility] Comment on above: Order Comment: ROOL SURINDER HENSELAE AB IGM Performed By: #### C BCO ####[address] [address] Neutrophils/100 WBC Auto (Bld) 60.0 % Normal 37.0-80.0 [facility] Comment on above: Order Comment: ROLO SURINDER HENSELAE AB IGM Performed By: #### C BCO ####[address] [address] Platelet mean volume (PMV) 7.9 fL Normal 7.4-10.4 [facility] Comment on above: Order Comment: ROLO SURINDER HENSELAE AB IGM Performed By: #### C BCO ####[address] [place] [address] Platelets 209 10 3/mcL Normal 130-400 [facility] Comment on above: Order Comment: ROLO SURINDER HENSELAE AB IGM Performed By: #### C BCO ####Pat [address] [address] WBC (Leukocytes) 6.30 10 3/mcL Normal 4.60-10.80 [facility] Comment on above: Order Comment: ROLO SURINDER HENSELAE AB IGM Performed By: #### C BCO ####Pat [address] [address] Gram stain for investigation of transfusion reaction Microscopic observation Gram stain Nom (Unsp spec) [facility] Work Phone: Vital Signs Date Time Vital Sign Value Performing Clinician Facility 05-09-2025 10:12-0400 Body temperature 97.7 [degF] Dr. Ct Dyson DO Work Phone: [facility] 05-09-2025 10:12-0400 Body weight 93.[address] Dyson DO Work Phone: [facility] 05-09-2025 10:12-0400 Diastolic blood pressure 72 mm[Hg] Dr. Ct Dyson DO Work Phone: [facility] 05-09-2025 10:12-0400 Heart rate 77 /min Dr. Ct Dyson DO Work Phone: [facility] 05-09-2025 10:12-0400 Respiratory rate 14 /min Dr. Ct Dyson DO Work Phone: [facility] 05-09-2025 10:12-0400 SaO2% (BldA) [Mass fraction] 97 % Dr[facility] Ct Dyson DO Work Phone: [facility] 05-09-2025 10:12-0400 Systolic blood pressure 144 mm[Hg] Dr. Ct Dyson DO Work Phone: [facility] 04-14-2025 12:20-0400 Body height 171.[address] Dyson DO Work Phone: [facility] 04-14-2025 12:20-0400 Body mass index (BMI) [Ratio] 31.4 kg/m2 Dr. Ct Dyson DO Work Phone: [facility] 04-14-2025 12:20-0400 Body temperature 99.3 [degF] Dr. Ct Dyson DO Work Phone: [facility] 04-14-2025 12:20-0400 Body weight 92.[address] Dyson DO Work Phone: [facility] 04-14-2025 12:20-0400 Diastolic blood pressure 75 mm[Hg] Dr. Ct Dyson DO Work Phone: [facility] 04-14-2025 12:20-0400 Heart rate 85 /min Dr. Ct Dyson DO Work Phone: [facility] 04-14-2025 12:20-0400 Respiratory rate 16 /min Dr. Ct Dyson DO Work Phone: [facility] 04-14-2025 12:20-0400 SaO2% (BldA) [Mass fraction] 95 % Dr[facility] Ct Dyson DO Work Phone: [facility] 04-14-2025 12:20-0400 Systolic blood pressure 143 mm[Hg] Dr. Ct Dyson DO Work Phone: [facility] 04-01-2025 12:40-0400 Body temperature 97.7 [degF] Dr. Ct Dyson DO Work Phone: [facility] 04-01-2025 12:40-0400 Diastolic blood pressure 50 mm[Hg] Dr. Ct Dyson DO Work Phone: [facility] 04-01-2025 12:40-0400 Heart rate 78 /min Dr. Ct Dyson DO Work Phone: [facility] 04-01-2025 12:40-0400 Respiratory rate 18 /min Dr. Ct Dyson DO Work Phone: [facility] 04-01-2025 12:40-0400 SaO2% (BldA) [Mass fraction] 98 % Dr[facility] Ct Dyson DO Work Phone: [facility] 04-01-2025 12:40-0400 Systolic blood pressure 117 mm[Hg] Dr. Ct Dyson DO Work Phone: [facility] 04-01-2025 09:40-0400 Body mass index (BMI) [Ratio] 31.3 kg/m2 Dr. Ct Dyson DO Work Phone: [facility] 04-01-2025 09:40-0400 Body weight [address] Dyson DO Work Phone: [facility] 03-03-2025 16:33-0400 Body temperature 98.2 [degF] Dr. Ct Dyson DO Work Phone: [facility] 03-03-2025 16:33-0400 Body weight 92.[address] Dyson DO Work Phone: [facility] 03-03-2025 16:33-0400 Diastolic blood pressure 68 mm[Hg] Dr. Ct Dyson DO Work Phone: [facility] 03-03-2025 16:33-0400 Heart rate 86 /min Dr. Ct Dyson DO Work Phone: [facility] 03-03-2025 16:33-0400 Respiratory rate 16 /min Dr. Ct Dyson DO Work Phone: [facility] 03-03-2025 16:33-0400 SaO2% (BldA) [Mass fraction] 96 % Dr[facility] Ct Dyson DO Work Phone: [facility] 03-03-2025 16:33-0400 Systolic blood pressure 122 mm[Hg] Dr. Ct Dyson DO Work Phone: [facility] 02-20-2025 08:49-0400 Heart rate 78 /min DR ALEJANDRO JERNIGAN MD [address] 02-20-2025 07:18-[address] ALEJANDRO JERNIGAN MD [address] 02-20-2025 07:18-[address] ALEJANDRO JERNIGAN MD [address] [place] [address] 02-20-2025 07:18-0400 Body temperature 98.06 [degF] DR ALEJANDRO JERNIGAN MD [address] [place] [address] 02-20-2025 07:18-0400 Diastolic Blood Pressure Non-Invasive 93 mm[Hg] DR ALEJANDRO JERNIGAN MD [address] [place] [address] 02-20-2025 07:18-0400 Heart rate 78 /min DR ALEJANDRO JERNIGAN MD [address] [place] [address] 02-20-2025 07:18-0400 Reason For Taking VItal Signs DR ALEJANDRO JERNIGAN MD [address] [place] [address] 02-20-2025 07:18-0400 Respiratory rate 18 /min DR ALEJANDRO JERNIGAN MD [address] [place] [address] 02-20-2025 07:18-0400 Systolic Blood Pressure Non-Invasive 131 mm[Hg] DR ALEJANDRO JERNIGAN MD [address] [place] [address] 02-19-2025 21:03-0400 Body temperature 98.24 [degF] DR ALEJANDRO JERNIGAN MD [address] [place] [address] 02-19-2025 21:03-0400 Diastolic Blood Pressure Non-Invasive 88 mm[Hg] DR ALEJANDRO JERNIGAN MD [address] [place] [address] 02-19-2025 21:03-0400 Heart rate 85 /min DR ALEJANDRO JERNIGAN MD [address] [place] [address] 02-19-2025 21:03-0400 Reason For Taking VItal Signs DR ALEJANDRO JERNIGAN MD [address] [place] [address] 02-19-2025 21:03-0400 Respiratory rate 18 /min DR ALEJANDRO JERNIGAN MD [address] [place] [address] 02-19-2025 21:03-0400 Systolic Blood Pressure Non-Invasive 155 mm[Hg] DR ALEJANDRO JERNIGAN MD [address] [place] [address] 02-19-2025 18:50-04[address] Cuff Size DR ALEJANDRO JERNIGAN MD [address] [place] [address] 02-19-2025 18:50-[address] ALEJANDRO JERNIGAN MD [address] [place] [address] 02-19-2025 18:50-[address] ALEJANDRO JERNIGAN MD [address] [place] [address] 02-19-2025 18:50-0400 Diastolic Blood Pressure Non-Invasive 79 mm[Hg] DR ALEJANDRO JERNIGAN MD [address] [place] [address] 02-19-2025 18:50-0400 Systolic Blood Pressure Non-Invasive 139 mm[Hg] DR ALEJANDRO JERNIGAN MD [address] [place] [address] 02-19-2025 18:43-0400 Blood Pressure Cuff Size DR ALEJANDRO JERNIGAN MD [address] [place] [address] 02-19-2025 18:43-[address] ALEJANDRO JERNIGAN MD [address] [place] [address] 02-19-2025 18:43-[address] ALEJANDRO JERNIGAN MD [address] [place] [address] 02-19-2025 18:43-0400 Body temperature 99.14 [degF] DR ALEJANDRO JERNIGAN MD [address] [place] [address] 02-19-2025 18:43-0400 Heart rate 81 /min DR ALEJANDRO JERNIGAN MD [address] [place] [address] 02-19-2025 18:43-0400 Reason For Taking VItal Signs DR ALEJANDRO JERNIGAN MD [address] [place] [address] 02-19-2025 18:43-0400 Respiratory rate 18 /min DR ALEJANDRO JERNIGAN MD [address] [place] [address] 02-19-2025 16:33-0400 Heart rate 79 /min DR ALEJANDRO JERNIGAN MD [address] [place] [address] 02-19-2025 16:28-04[address] Cuff Size DR ALEJANDRO JERNIGAN MD [address] [place] [address] 02-19-2025 16:28-0400 Heart rate 77 /min DR ALEJANDRO JERNIGAN MD [address] [place] [address] 02-19-2025 12:25-0400 Heart rate 73 /min DR ALEJANDRO JERNIGAN MD [address] [place] [address] 02-19-2025 12:09-0400 Body temperature 97.7 [degF] DR ALEJANDRO JERNIGAN MD [address] [place] [address] 02-19-2025 12:09-0400 Body weight 88.[address] ALEJANDRO JERNIGAN MD [address] [place] [address] 02-19-2025 12:09-0400 Heart rate 80 /min DR ALEJANDRO JERNIGAN MD [address] [place] [address] 02-19-2025 11:32-0400 Heart rate 64 /min DR ALEJANDRO JERNIGAN MD [address] [place] [address] 02-19-2025 08:55-0400 Body temperature 97.88 [degF] DR ALEJANDRO JERNIGAN MD [address] [place] [address] 02-19-2025 08:55-0400 Body weight 90.[address] ALEJANDRO JERNIGAN MD [address] [place] [address] 02-19-2025 06:25-0400 Body weight 95.[address] ALEJANDRO JERNIGAN MD [address] [place] [address] 02-18-2025 21:41-0400 Body height [address] ALEJANDRO JERNIGAN MD [address] [place] [address] 02-18-2025 21:41-0400 Body weight 32.22 kg/m2 DR ALEJANDRO JERNIGAN MD [facility] 02-18-2025 13:15-0400 Body temperature 97.7 [degF] DR ALEJANDRO JERNIGAN MD [facility] 02-18-2025 09:50-0400 Body temperature 98.24 [degF] DR ALEJANDRO JERNIGAN MD [facility] 02-18-2025 05:22-0400 Body height [address] ALEJANDRO JERNIGAN MD [facility] 02-18-2025 05:22-0400 Body weight 33.99 kg/m2 DR ALEJANDRO JERNIGAN MD [facility] 02-17-2025 17:26-0400 Body temperature 98.42 [degF] DR ALEJANDRO JERNIGAN MD [facility] 02-06-2025 09:36-0400 Diastolic blood pressure 96 mm[Hg] Dr. Ct Dyson DO Work Phone: [facility] 02-06-2025 09:36-0400 Systolic blood pressure 184 mm[Hg] Dr. Ct Dyson DO Work Phone: [facility] 02-06-2025 08:38-0400 Body temperature 98 [degF] Dr. Ct Dyson DO Work Phone: [facility] 02-06-2025 08:38-0400 Body weight 98.[address] Dyson DO Work Phone: [facility] 02-06-2025 08:38-0400 Heart rate 85 /min Dr. Ct Dyson DO Work Phone: [facility] 02-06-2025 08:38-0400 Respiratory rate 18 /min Dr. Ct Dyson DO Work Phone: [facility] 02-06-2025 08:38-0400 SaO2% (BldA) [Mass fraction] 98 % Dr. Ct Dyson DO Work Phone: [facility] 11-12-2024 10:58-0500 Body temperature 98.06 [degF] DR SALMA AYOUB MD [address] [place] [address] 11-12-2024 10:58-0500 Diastolic Blood Pressure Non-Invasive 71 mm[Hg] DR SALMA AYOUB MD [address] [place] [address] 11-12-2024 10:58-0500 Heart rate 66 /min DR SALMA AYOUB MD [address] [place] [address] 11-12-2024 10:58-0500 Mean blood pressure 97 mm[Hg] DR SALMA AYOUB MD [address] [place] [address] 11-12-2024 10:58-0500 Reason For Taking VItal Signs DR SALMA AYOUB MD [address] [place] [address] 11-12-2024 10:58-0500 Respiratory rate 20 /min DR SALMA AYOUB MD [address] [place] [address] 11-12-2024 10:58-0500 Systolic Blood Pressure Non-Invasive 155 mm[Hg] DR SALMA AYOUB MD [address] [place] [address] 11-12-2024 08:09-0500 Heart rate 75 /min DR SALMA AYOUB MD [address] [place] [address] 11-12-2024 08:03-0500 Heart rate 73 /min DR SALMA AYOUB MD [address] [place] [address] 11-12-2024 07:08-0500 Body temperature 98.42 [degF] DR SALMA AYOUB MD [address] [place] [address] 11-12-2024 07:08-0500 Diastolic Blood Pressure Non-Invasive 62 mm[Hg] DR SALMA AYOUB MD [address] [place] [address] 11-12-2024 07:08-0500 Heart rate 72 /min DR SALMA AYOUB MD [address] [place] [address] 11-12-2024 07:08-0500 Mean blood pressure 86 mm[Hg] DR SALMA AYOUB MD [address] [place] [address] 11-12-2024 07:08-0500 Reason For Taking VItal Signs DR SALMA AYOUB MD [address] [place] [address] 11-12-2024 07:08-0500 Respiratory rate 16 /min DR SALMA AYOUB MD [address] [place] [address] 11-12-2024 07:08-0500 Systolic Blood Pressure Non-Invasive 143 mm[Hg] DR SALMA AYOUB MD [address] [place] [address] 11-12-2024 03:36-0500 Body temperature 98.06 [degF] DR SALMA AYOUB MD [address] [place] [address] 11-12-2024 03:36-0500 Diastolic Blood Pressure Non-Invasive 70 mm[Hg] DR SALMA AYOUB MD [address] [place] [address] 11-12-2024 03:36-0500 Mean blood pressure 94 mm[Hg] DR SALMA AYOUB MD [address] [place] [address] 11-12-2024 03:36-0500 Reason For Taking VItal Signs DR SALMA AYOUB MD [address] [place] [address] 11-12-2024 03:36-0500 Respiratory rate 18 /min DR SALMA AYOUB MD [address] [place] [address] 11-12-2024 03:36-0500 Systolic Blood Pressure Non-Invasive 157 mm[Hg] DR SALMA AYOUB MD [address] [place] [address] 11-11-2024 19:35-0500 Heart rate 82 /min DR SALMA AYOUB MD [address] [place] [address] 11-11-2024 19:12-0500 Body temperature 97.88 [degF] DR SALMA AYOUB MD [address] [place] [address] 11-11-2024 19:12-0500 Body weight 91.[address] SALMA AYOUB MD [address] [place] [address] 11-11-2024 15:50-0500 Body temperature 98.06 [degF] DR SALMA AYOUB MD [address] [place] [address] 11-11-2024 15:50-0500 Body weight [address] SALMA AYOUB MD [address] [place] [address] 11-11-2024 08:14-0500 Heart rate 65 /min DR SALMA AYOUB MD [address] [place] [address] 11-11-2024 07:29-[address] Cuff Size DR SALMA AYOUB MD [address] [place] [address] 11-11-2024 07:29-[address] SALMA AYOUB MD [address] [place] [address] 11-11-2024 07:29-[address] SALMA Bermudez [address] [place] [address] 11-10-2024 11:45-05[address] Cuff Size DR SALMA AYOUB MD [address] [place] [address] 11-10-2024 11:45-[address] SALMA AYOUB MD [address] [place] [address] 11-10-2024 11:45-[address] SALMA Bermudez [address] [place] [address] 11-10-2024 05:16-0500 Body weight 99.[address] SALMA AYOUB MD [address] [place] [address] 11-09-2024 22:42-0500 Blood Pressure Cuff Size DR SALMA AYOUB MD [address] [place] [address] 11-09-2024 22:42-[address] SALMA AYOUB MD [address] [place] [address] 11-09-2024 22:42-[address] SALMA Bermudez [address] [place] [address] 11-09-2024 12:01-0500 Body temperature 97.52 [degF] DR SALMA AYOUB MD [address] [place] [address] 11-08-2024 09:30-0500 Diastolic blood pressure 54 mm[Hg] DR SALMA AYOUB MD [address] [place] [address] 11-08-2024 09:30-0500 Mean blood pressure 77 mm[Hg] DR SALMA AYOUB MD [address] [place] [address] 11-08-2024 09:30-0500 Systolic blood pressure 125 mm[Hg] DR SAMLA AYOUB MD [address] [place] [address] 11-08-2024 07:44-0500 Diastolic blood pressure 58 mm[Hg] DR SALMA AYOUB MD [address] [place] [address] 11-08-2024 07:44-0500 Mean blood pressure 86 mm[Hg] DR SALMA AYOUB MD [address] [place] [address] 11-08-2024 07:44-0500 Systolic blood pressure 147 mm[Hg] DR SALMA AYOUB MD [address] [place] [address] 11-08-2024 05:30-0500 Diastolic blood pressure 54 mm[Hg] DR SALMA AYOUB MD [address] [place] [address] 11-08-2024 05:30-0500 Mean blood pressure 75 mm[Hg] DR SALMA AYOUB MD [address] [place] [address] 11-08-2024 05:30-0500 Systolic blood pressure 124 mm[Hg] DR SALMA AYOUB MD [address] [place] [address] 11-07-2024 13:23-0500 Signs/Symptoms Transfusion Reaction DR SALMA AYOUB MD [address] [place] [address] 11-07-2024 12:23-0500 Diastolic blood pressure 53 mm[Hg] DR SALMA AYOUB MD [address] [place] [address] 11-07-2024 12:23-0500 Heart rate 81 /min DR SALMA AYUOB MD [address] [place] [address] 11-07-2024 12:23-0500 Systolic blood pressure 132 mm[Hg] DR SALMA AYOUB MD [address] 11-07-2024 12:22-0500 Signs/Symptoms Transfusion Reaction No DR SALMA AYOUB MD [address] 11-07-2024 12:10-0500 Signs/Symptoms Transfusion Reaction DR SALMA AYOUB MD [address] [place] [address] 11-07-2024 10:37-0500 Inspected Blood Donor Unit Appearance DR SALMA AYOUB MD [address] [place] [address] 11-07-2024 10:37-0500 Transfusion Documentation Started/Paper DR SALMA AYOUB MD [address] [place] [address] 11-07-2024 04:15-0500 SaO2% (BldA) [Mass fraction] 99.1 % DR SALMA AYOUB MD [facility] 11-07-2024 00:50-0500 SaO2% (BldA) [Mass fraction] 98.6 % DR SALMA AYOUB MD [facility] 11-06-2024 22:32-0500 SaO2% (BldA) [Mass fraction] 99.1 % DR SALMA AYOUB MD [facility] 11-06-2024 15:45-0500 Body temperature 97.93 [degF] DR SALMA AYOUB MD [facility] 11-06-2024 15:45-0500 Respiratory Rate - Anes 14 br/min DR SALMA AYOUB MD [address] 11-06-2024 15:40-0500 Body temperature 98.73 [degF] DR SALMA AYOUB MD [address] 11-06-2024 15:40-0500 Body temperature 98.08 [degF] DR SALMA AYOUB MD [address] 11-06-2024 15:40-0500 Respiratory Rate - Anes 12 br/min DR SALMA AYOUB MD [address] 11-06-2024 15:35-0500 Body temperature 99.01 [degF] DR SALMA AYOUB MD [address] 11-06-2024 15:35-0500 Body temperature 98.15 [degF] DR SALMA AYOUB MD [address] 11-06-2024 15:35-0500 Respiratory Rate - Anes 12 br/min DR SALMA AYOUB MD [address] [place] [address] 11-06-2024 15:30-0500 Body temperature 99.32 [degF] DR SALMA AYOUB MD [address] [place] [address] 11-05-2024 08:00-0500 Inspected Blood Donor Unit Appearance DR SALMA AYOUB MD [address] [place] [address] 11-04-2024 04:18-0500 Body height 170.[address] SALMA AYOUB MD [address] [place] [address] 11-04-2024 04:18-0500 Body weight 33.59 kg/m2 DR SALMA AYOUB MD [address] [place] [address] 11-04-2024 02:23-0500 Diastolic Blood Pressure Non-Invasive 74 mm[Hg] DR TEE VIDES DO [facility] 11-04-2024 02:23-0500 Heart rate 82 /min DR TEE VIDES DO [facility] 11-04-2024 02:23-0500 Respiratory rate 18 /min DR TEE VIDES DO [facility] 11-04-2024 02:23-0500 Systolic Blood Pressure Non-Invasive 148 mm[Hg] DR TEE VIDES DO [facility] 11-04-2024 01:24-0500 Diastolic Blood Pressure Non-Invasive 74 mm[Hg] DR TEE VIDES DO [facility] 11-04-2024 01:24-0500 Heart rate 74 /min DR TEE VIDES DO [facility] 11-04-2024 01:24-0500 Respiratory rate 17 /min DR TEE VIDES DO [facility] 11-04-2024 01:24-0500 Systolic Blood Pressure Non-Invasive 160 mm[Hg] DR TEE VIDES DO [facility] 11-04-2024 00:38-0500 Diastolic Blood Pressure Non-Invasive 68 mm[Hg] DR TEE VIDES DO [facility] 11-04-2024 00:38-0500 Heart rate 76 /min DR TEE VIDES DO [facility] 11-04-2024 00:38-0500 Respiratory rate 16 /min DR TEE VIDES DO [facility] 11-04-2024 00:38-0500 Systolic Blood Pressure Non-Invasive 159 mm[Hg] DR TEE VIDES DO [facility] 11-03-2024 23:47-0500 Reason For Taking VItal Signs DR TEE VIDES DO [facility] 11-03-2024 23:42-0500 Reason For Taking VItal Signs DR TEE VIDES DO [facility] 11-03-2024 23:35-0500 Body temperature 98.42 [degF] DR TEE VIDES DO [facility] 11-03-2024 23:29-0500 Body temperature 98.06 [degF] DR TEE VIDES DO [facility] 11-03-2024 23:29-0500 Body weight 98.[address] TEE VIDES DO [facility] 11-03-2024 23:29-0500 Heart rate 88 /min DR TEE VIDES DO [facility] 06-07-2023 17:00-0400 Body temperature 98 [degF] Dr. Ct Dyson Work Phone: [facility] 06-07-2023 17:00-0400 Diastolic blood pressure 60 mm[Hg] Dr. Ct Dyson Work Phone: [facility] 06-07-2023 17:00-0400 Heart rate 80 /min Dr. Ct Dyson Work Phone: [facility] 06-07-2023 17:00-0400 Respiratory rate 18 /min Dr. Ct Dyson Work Phone: [facility] 06-07-2023 17:00-0400 SaO2% (BldA) [Mass fraction] 95 % Dr[facility] Ct Dyson Work Phone: [facility] 06-07-2023 17:00-0400 Systolic blood pressure 145 mm[Hg] Dr. Ct Dyson Work Phone: [facility] 06-06-2023 12:56-0400 Body height 170.[address] Dyson Work Phone: [facility] 06-06-2023 12:56-0400 Body weight [address] Dyson Work Phone: [facility] 05-31-2023 15:49-0400 Body mass index (BMI) [Ratio] 38.3 kg/m2 Dr. Ct Dyson Work Phone: [facility] 05-31-2023 15:49-0400 Inhaled oxygen flow rate 3 L/min Dr. Ct Dyson Work Phone: [facility] 09-09-2022 07:57-0400 Body height 170.[address] LAURA COOK MD [facility] 09-09-2022 07:57-0400 Body weight 111.[address] LAURA COOK MD [facility] 09-09-2022 07:57-0400 Body weight 38.53 kg/m2 DR LAURA COOK MD [facility] 09-09-2022 07:57-0400 diastolic 68 mm[Hg] DR LAURA COOK MD [facility] 09-09-2022 07:57-0400 Heart rate 75 /min DR LAURA COOK MD [facility] 09-09-2022 07:57-0400 Respiratory rate 20 /min DR LAURA COOK MD [facility] 09-09-2022 07:57-0400 systolic 164 mm[Hg] DR LAURA COOK MD [facility] Encounters Encounter Date Encounter Type Care Provider Facility Start: 05-19-[address] Dyson Facility :[facility] Start: 05-15-2025 ambulatory Marleny William Facility:[facility] Start: 05-09-2025 Encounter for other preprocedural examination Rui Vera [facility] Start: 05-09-2025 End: 05-09-2025 Patient encounter procedure Marleny MCNEIL -[facility] Work Phone: Start: 05-09-2025 End: 05-09-[address] Dyson DO Work Phone: [facility] Work Phone: Start: 04-19-2025 End: 04-19-[address] DYSON Facility:[facility] Start: 04-14-2025 End: 04-14-2025 Patient encounter procedure Dr. Rui Vera MD -[facility] Work Phone: Start: 04-14-2025 End: 04-14-[address] Dyson DO Work Phone: [facility] Work Phone: Start: 04-09-[address] LUNAY Facil ity:[facility] Start: 04-01-2025 Non-patient / Non-visit Dr. Rui leahy MD -[facility] Start: 04-01-2025 End: 04-01-2025 Admission to same day surgery center Dr. Rui Vera MD -[facility] Start: 04-01-2025 End: 04-01-2025 [facility] Facility[facility] Start: 03-27-[address] GUZMAN[place]ЛЕГ SUNG Facil ity:[facility] Start: 03-26-2025 Encounter for genera l adult medical examination without abnormal findings [facility] Start: 03-21-2025 End: 03-21-[address] Brett Oscar MD -Laboratory Specimen Work Phone: Start: 03-21-2025 End: 03-21-2025 ambulatory [facility] Facility:[facility] Start: 03-03-2025 End: 03-03-[address] Rui Vera MD -[facility] Work Phone: Start: 03-03-2025 End: 03-03-[address] [place] Facility:[facility] Start: 02-17-2025 End: 02-20-2025 Evaluation and management of inpatient DR ALEJANDRO JERNIGAN MD [facility] Start: 02-17-2025 Non-patient / Non-visit Dr. Rui leahy MD -[facility] Start: 02-17-2025 End: 02-17-[address] Dyson DO Work Phone: [facility] Work Phone: Start: 02-17-2025 End: 02-17-2025 Patient encounter procedure Marleny MCNEIL -Cardiovascular Services Work Phone: Start: 02-17-2025 End: 02-17-2025 ambulatory Marleny William Facility:[facility] Start: 02-14-2025 ambulatory Marleny William Facility:[facility] Start: 02-11-2025 End: 02-11-2025 ambulatory BRETT OSCAR MD Facility:[facility] Start: 02-06-2025 End: 02-06-2025 Patient encounter procedure Marleny MCNEIL -[facility] Work Phone: Start: 02-06-2025 End: 02-06-2025 ambulatory Marleny William Facility:[facility] Start: 01-08-[address] DYSON DO Facil ity:[facility] Start: 12-19-2024 End: 12-19-[address] DYSON DO Facility:[facility] Start: 12-19-2024 End: 12-19-2024 Patient encounter procedure SHLOMO GUILLEN ADVERTISING ANALYST-COOLER WORKER [facility] Start: 11-22-2024 End: 11-22-[address] DYSON DO Facility:[facility] Start: 11-22-2024 End: 11-22-2024 Patient encounter procedure DENISE CHAVEZ ADVERTISING ANALYST-FEATHER STITCHER [facility] Start: 11-14-2024 End: 12-03-[address] DYSON DO Facility:[facility] Start: 11-04-2024 End: 11-12-2024 Evaluation and management of inpatient DR SALMA AYOUB MD [facility] Start: 11-03-2024 End: 11-04-2024 Emergency department patient visit DR TEE VIDES DO [facility] Start: 06-24-[address] DYSON DO Facil ity:[facility] Start: 10-10-2023 End: 10-10-[address] CAMPUZANO MD Facility:[facility] Start: 06-26-2023 End: 06-26-[address] Dyson Work Phone: [facility] Work Phone: Start: 06-26-2023 End: 06-26-[address] Dyson Work Phone: [facility] Start: 06-07-2023 Non-patient / Non-visit Dr. Wandy Dyson Work Phone: [facility] Work Phone: Start: 06-06-2023 Non-patient / Non-visit Dr. Wandy Dyson Work Phone: [facility] Work Phone: Start: 06-05-2023 Non-patient / Non-visit Dr. Wandy Dyson Work Phone: [facility] Work Phone: Start: 06-04-2023 Non-patient / Non-visit Dr. Wandy Dyson Work Phone: [facility] Work Phone: Start: 06-03-2023 Non-patient / Non-visit Dr. Wandy Dyson Work Phone: [facility] Work Phone: Start: 06-02-2023 Non-patient / Non-visit Dr. Wandy Dyson Work Phone: [facility] Work Phone: Start: 06-01-2023 Non-patient / Non-visit Dr. Wandy Dyson Work Phone: [facility] Work Phone: Start: 05-31-2023 Non-patient / Non-visit Dr. Wandy Dyson Work Phone: [facility] Work Phone: Start: 05-31-2023 End: 06-07-2023 Evaluation and management of inpatient Dr. Ct Dyson Work Phone: [facility]-Medical Surgical 3 Work Phone: Start: 04-22-2023 End: 04-22-[address] LAURA COOK MD [facility] Start: 10-26-2022 End: 10-26-[address] LAURA COOK MD [facility] Start: 10-26-2022 End: 10-26-[address] LAURA COOK MD [facility] Start: 10-06-2022 End: 10-06-[address] LAURA COOK MD [facility] Start: 09-09-2022 End: 09-09-[address] LAURA COOK MD [facility] Start: 06-30-2022 End: 06-30-2022 Patient encounter procedure [facility]-Laboratory, Specimen Start: 06-16-2022 End: 06-16-2022 Patient encounter procedure [facility] Start: 09-18-2021 End: 09-18-2021 [facility] ADVERTISING ANALYST-COOLER WORKER [facility] Start: 05-29-2017 End: 05-30-2017 Ambulatory ANGE FAJARDO Facility:[facility] Procedures Date Procedure Procedure Detail Performing Clinician Start: 06-02-[address] Wandy Dyson Work Phone: Start: 05-31-[address] Dyson Work Phone: Start: 05-31-2023 Investigation of transfusion reaction Dr. Ct Dyson Work Phone: Start: 05-31-2023 Microbial culture, routine Dr. Ct Dyson Work Phone: Start: 05-31-2023 Total Knee Poly Exch magnolia (Right) Dr. Ct Dyson Work Phone: Start: 05-31-2023 Radiologic examinati on of knee Dr. Ct Dyson Work Phone: Start: 08-04-2021 Cardiovascular stres s testing DR LAURA COOK MD Comment on above: Impression: 1. EKG portion of Lexiscan stress test is negative for inducible ischemia. 2. Results of nuclear images will be reported separately. 3. Dr. Cisse was available through telephone/telehealth during stress test. IMPRESSION: Mostly fixed perfusion defect most likely due to diaphragmatic attenuation artifact, no significant change from prior stress; no significant perfusion defect to suggest ischemia LVEF 47-51% Start: 07-03-2018 Cardiac catheterization FRANKIE BAPTISTE ADVERTISING ANALYST-COOLER WORKER Comment on above: Heart Catheterizatio n [07/03/2018]: Right coronary: Proximal vessel lesion: 95%stenosis. LVEF 50-55% Start: 07-03-2018 Placement of stent NOEL BAPTISTE ADVERTISING ANALYST-COOLER WORKER Start: 09-21-2016 Arthroplasty of knee Knee repl acement( Confirmed ) 2 FRANKIE BAPTISTE ADVERTISING ANALYST-COOLER WORKER Comment on above: right total knee rep lacement Start: 11-27-2012 Colonoscopy FRANKIE Richards ADVERTISING ANALYST-COOLER WORKER Comment on above: Within normal limits Start: 12-29-2011 Stent, device (physi liz object) FRANKIE BAPTISTE [employer] Comment on above: Coronary Angioplasty /Stent 07/03/2018- 2011- (Affinity) RCA Arthropathy of knee joint (disorder) FRANKIE BAPTISTE [employer] Comment on above: SCOPE X 3 Arthroplasty of knee FRANKIE BAPTISTE [employer] Comment on above: Right Arthroscopy of knee FRANKIE Landin OCK [employer] Comment on above: Right x2 post arthro plasty Cataract (disorder) FRANKIE BRISENOK [employer] Cholecystectomy FRANKIE BAPTISTE [employer] Comment on above: X5 Disorder of joint of foot (disorder) FRANKIE BAPTISTE [employer] Comment on above: RIGHT FOOT REPAIR History of coronary artery bypass grafting S/P CABG x 4 DENISE STUARTMELVIN [place] Injury of elbow (disorder) L ZENA BAPTISTE [employer] Comment on above: REPAIR Investigation of transfusion reaction Manipulation of knee joint under general anesthesia FRANKIE BAPTISTE [employer] Plan of Treatment Date Care Activity Detail Author Start: 04-01-2025 Anesthesia vascular shunt/shunt revision ANESTH VASCULAR SHUNT SURG [facility] Start: 04-01-2025 Arteriovenous anastomosis open direct AV FUSION DIRECT ANY SITE [facility] Start: 04-01-2025 Patient discharge [facility] Start: 04-01-2025 Dialysis care [facility] Start: 06-07-2023 Patient discharge [facility] Start: 06-06-2023 Inhalation therapy procedure [facility] Start: 06-05-2023 Referral to service [facility] Start: 06-05-2023 Peripherally inserted central catheter care [facility] Start: 06-04-2023 [facility] Start: 06-03-2023 Referral to flat examiner [facility] Start: 06-02-2023 Consultation [facility] Start: 06-01-2023 Consultation for treatment [facility] Start: 06-01-2023 Urinary bladder residual urine study [facility] Start: 06-01-2023 Application, wound VAC [facility] Start: 05-31-2023 Application of intermittent pneumatic compression device [facility] Start: 05-31-2023 Following clinical pathway protocol [facility] Start: 05-31-2023 Provision of overbed trapeze [facility] Start: 05-31-2023 Recommendation to continue with treatment [facility] Start: 05-31-2023 Ambulation therapy management [facility] Start: 05-31-2023 Application of device [facility] Start: 05-31-2023 Application of elastic bandage [facility] Start: 05-31-2023 Assessment of risk of venous thromboembolism [facility] Start: 05-31-2023 Catheterization of vein [facility] Start: 05-31-2023 Consultation [facility] Start: 05-31-2023 Exercises [facility] Start: 05-31-2023 Following clinical pathway protocol [facility] Start: 05-31-2023 Introduction of urinary catheter [facility] Start: 05-31-2023 Measuring intake and output [facility] Start: 05-31-2023 Neurovascular assessment [facility] Start: 05-31-2023 Patient education [facility] Start: 05-31-2023 Procedure discontinued [facility] Start: 05-31-2023 Provision of activity privileges [facility] Start: 05-31-2023 Referral to occupational therapist [facility] Start: 05-31-2023 Referral to service [facility] Start: 05-31-2023 Vital signs measurements [facility] Start: 05-31-2023 Wound care [facility] Start: 05-31-2023 [facility] Start: 05-31-2023 Admission procedure [facility] Start: 06-30-2022 [facility] Work Phone: Acid fast bacilli culture [facility] Work Phone: Acid fast bacilli culture [facility] Anaerobic microbial culture Anaerobic Cul ture [facility] Work Phone: Bacterial culture Body Fluid Culture [facility] Work Phone: Mycobacterium sp brenden ntified in Unspecified specimen by Organism specific culture [facility] Work Phone: Mycobacterium sp brenden ntified in Unspecified specimen by Organism specific culture [facility] Patient referral [facility] Work Phone: [facility] Immunizations Immunization Date Immunization Notes Care Provider Fa cility 10-05-2024 SARS-CoV-2 (COVID-19 ) [id number] DR ALEJANDRO JERNIGAN MD [facility] 07-13-[address] ALEJANDRO JERNIGAN MD [facility] 10-05-2023 influenza virus vaccine, unspecified formulation DR ALEJANDRO JERNIGAN MD [facility] 10-05-2023 RSV vaccine preF3, recombinant DR ALEJANDRO JERNIGAN MD [facility] 10-05-2023 SARS-CoV-2 (COVID-19 ) [id number] DR ALEJANDRO JERNIGAN MD [facility] 11-13-2021 SARS-CoV-2 (COVID-19 ) mRNA-[id number] ALEJANDRO JERNIGAN MD [facility] 02-04-2021 SARS-CoV-2 (COVID-19 ) Ad26 vaccine, recombinant 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 [facility] Comment on above: Result Comment: 2020: [id number] 12-24-2020 tetanus toxoid, redu lex diphtheria toxoid, and acellular pertussis vaccine, adsorbed 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 [facility] 08-27-2013 influenza virus vaccine, unspecified formulation 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 [facility] Payers Date Payer Category Payer Private Health Insurance [id number] 2025 Self-pay [id number] 2025 Private Health Insurance [id number] 2024 Medicare [id number] 2024 Medicare [id number] 2024 Private Health Insurance [id number] 2024 Private Health Insurance [id number] 2024 Private Health Insurance [id number] 2024 Private Health Insurance [id number] 2023 Unknown [id number] 2014 Unknown [id number] 1959 Unknown [id number] 2.16.840.1.472907.3.579.2. 1959 Unknown [id number] 2.16.840.1.968338.3.579.2. 1959 Unknown [id number] 2.16.840.1.901010.3.579.2. 1959 Unknown [id number] 2.16.840.1.219217.3.579.2. 1959 Unknown [id number] 2.16.840.1.918999.3.579.2. 1959 Unknown [id number] 2.16.840.1.575857.3.579.2. 1959 Unknown [id number] 2.16.840.1.076072.3.579.2. 1959 Unknown [id number] 2.16.840.1.028885.3.579.2. 1959 Unknown [id number] 2.16.840.1.576188.3.579.2. 1959 Unknown [id number] 2.16.840.1.933229.3.579.2. 1959 Unknown [id number] 2.16.840.1.830986.3.579.2. 1959 Unknown [id number] 2.16.840.1.809040.3.579.2.627 Private Health Insurance SELF PAY INSURAN [id number] Unknown [id number] Unknown [id number] 2.16.840.1.565120.3.579.2.462 Unknown [id number] 2.16.840.1.665430.3.579.2.462 Unknown [id number] 2.16.840.1.570608.3.579.2.462 Unknown [id number] 2.16.840.1.177867.3.579.2.462 Unknown [id number] 2.16.840.1.733152.3.579.2.462 Unknown [id number] 2.16.840.1.448296.3.579.2.462 Unknown [id number] 2.16.840.1.132250.3.579.2.462 Unknown [id number] 2.16.840.1.816235.3.579.2.462 Unknown [id number] 2.16.840.1.433963.3.579.2.462 Unknown [id number] 2.16.840.1.651597.3.579.2.462 Unknown [id number] 2.16.840.1.657656.3.579.2.462 Unknown [id number] 2.16.840.1.018470.3.579.2.462 Social History Date Type Detail Facility Start: 08-24-2020 End: 05-02-2025 Ex-smoker (finding) [facility] Comment on above: no smoke exposure Start: 1960 Sex Assigned At Male A [facility] Start: 12-24-2020 End: 06-01-2023 Tobacco smoking status NHIS Unknown if ever smoked [facility] Start: 10-21-2016 None [facility] Start: 10-21-2016 Spouse/ Signif icant Other [facility] Start: 03-23-2018 Non-smoker [facility] Sexual Orientation [facility] [employer] Start: 10-21-2019 End: 02-21-2025 Sex Male (finding) [facility] Medical Equipment Procedure Code Equipment Code Equipment Origin al Text Equipment Identifier Dates Creation, AV fistula Ligation clip, metallic [id number] FDA Start: 04-01-2025 Creation, AV fistula Ligation clip, metallic [id number] FDA Start: 04-01-2025 CEMENT,BONE W/TOBRAMYCIN STRYK FDA Start: 03-21-2018 TRIATHLON UNIV T IB BASEPLATE FDA Start: 03-21-2018 TRIATLHON X3 PATELLA FDA Start: 03-21-2018 CEMENT,BONE W/TOBRAMYCIN STRYK FDA Start: 03-21-2018 CEMENT,BONE W/TOBRAMYCIN STRYK FDA Start: 03-21-2018 PLUG,BONE MEDIUM FDA Start: 03-21-2018 PLUG,BONE SMALL FDA Start: 03-21-2018 TRIATHLON CEMENT ED STEM FDA Start: 03-21-2018 TRIATHLON CEMENT ED STEM FDA Start: 03-21-[address] AB FEM COMP FDA Start: 03-21-[address] AB TIB INSERT FDA Start: 03-21-2018 CEMENT,BONE W/TOBRAMYCIN STRYK FDA Start: 03-21-2018 TRIATHLON UNIV T IB BASEPLATE FDA Start: 03-21-2018 TRIATLHON X3 PATELLA FDA Start: 03-21-2018 CEMENT,BONE W/TOBRAMYCIN STRYK FDA Start: 03-21-2018 CEMENT,BONE W/TOBRAMYCIN STRYK FDA Start: 03-21-2018 PLUG,BONE MEDIUM FDA Start: 03-21-2018 PLUG,BONE SMALL FDA Start: 03-21-2018 TRIATHLON CEMENT ED STEM FDA Start: 03-21-2018 TRIATHLON CEMENT ED STEM FDA Start: 03-21-[address] AB FEM COMP FDA Start: 03-21-[address] AB TIB INSERT FDA Start: 03-21-2018 See Instructions , Dispense pen needles 5 mm x 31 gauge, #270, use 1 needle 3 times daily to inject insulin; diagnosis: E 11.9, # 270 EA, 3 Refill(s), Pharmacy: [facility]/pharmacy #[id number], Diabetes, 170, cm, 09/21/21 16:13:00 EDT, Height, 111.1, kg, 09/21/21 1... Start: 09-21-2021 See Instructions , Dispense pen needles 5 mm x 31 gauge, #270, use 1 needle 3 times daily to inject insulin; diagnosis: E 11.9, # 270 EA, 3 Refill(s), Pharmacy: [facility]/pharmacy #[id number], Diabetes, 170, cm, 09/21/21 16:13:00 EDT, Height, 111.1, kg, 09/21/21 1... Start: 09-21-2021 See Instructions , Dispense pen needles 5 mm x 31 gauge, #270, use 1 needle 3 times daily to inject insulin; diagnosis: E 11.9, # 270 EA, 3 Refill(s), Pharmacy: [facility]/pharmacy #[id number], Diabetes, 170, cm, 09/21/21 16:13:00 EDT, Height, 111.1, kg, 09/21/21 1... Start: 09-21-2021 See Instructions , Dispense pen needles 5 mm x 31 gauge, #270, use 1 needle 3 times daily to inject insulin; diagnosis: E 11.9, # 270 EA, 3 Refill(s), Pharmacy: [facility]/pharmacy #[id number], Diabetes, 170, cm, 09/21/21 16:13:00 EDT, Height, 111.1, kg, 09/21/21 1... Start: 09-21-2021 CEMENT,BONE W/TOBRAMYCIN STRYK FDA Start: 03-21-2018 TRIATHLON UNIV T IB BASEPLATE FDA Start: 03-21-2018 TRIATLHON X3 PATELLA FDA Start: 03-21-2018 CEMENT,BONE W/TOBRAMYCIN STRYK FDA Start: 03-21-2018 CEMENT,BONE W/TOBRAMYCIN STRYK FDA Start: 03-21-2018 PLUG,BONE MEDIUM FDA Start: 03-21-2018 PLUG,BONE SMALL FDA Start: 03-21-2018 TRIATHLON CEMENT ED STEM FDA Start: 03-21-2018 TRIATHLON CEMENT ED STEM FDA Start: 03-21-[address] AB FEM COMP FDA Start: 03-21-[address] AB TIB INSERT FDA Start: 03-21-2018 CEMENT,BONE EDWIN H 1/2 BATCH FDA Start: 05-31-2023 ([id number] Metal-backed patella prosthesis [id number] FDA Start: 05-31-2023 ([id number]) Tibial insert [id number] FDA Start: 05-31-2023 CEMENT,BONE W/TOBRAMYCIN STRYK FDA Start: 03-21-2018 TRIATHLON UNIV T IB BASEPLATE FDA Start: 03-21-2018 TRIATLHON X3 PATELLA FDA Start: 03-21-2018 CEMENT,BONE W/TOBRAMYCIN STRYK FDA Start: 03-21-2018 CEMENT,BONE W/TOBRAMYCIN STRYK FDA Start: 03-21-2018 PLUG,BONE MEDIUM FDA Start: 03-21-2018 PLUG,BONE SMALL FDA Start: 03-21-2018 TRIATHLON CEMENT ED STEM FDA Start: 03-21-2018 TRIATHLON CEMENT ED STEM FDA Start: 03-21-[address] AB FEM COMP FDA Start: 03-21-[address] AB TIB INSERT FDA Start: 03-21-2018 CEMENT,BONE EDWIN H 1/2 BATCH FDA Start: 05-31-2023 CEMENT,BONE W/TOBRAMYCIN STRYK FDA Start: 03-21-2018 TRIATHLON UNIV T IB BASEPLATE FDA Start: 03-21-2018 TRIATLHON X3 PATELLA FDA Start: 03-21-2018 CEMENT,BONE W/TOBRAMYCIN STRYK FDA Start: 03-21-2018 CEMENT,BONE W/TOBRAMYCIN STRYK FDA Start: 03-21-2018 PLUG,BONE MEDIUM FDA Start: 03-21-2018 PLUG,BONE SMALL FDA Start: 03-21-2018 TRIATHLON CEMENT ED STEM FDA Start: 03-21-2018 TRIATHLON CEMENT ED STEM FDA Start: 03-21-[address] AB FEM COMP FDA Start: 03-21-[address] AB TIB INSERT FDA Start: 03-21-2018 CEMENT,BONE EDWIN H 1/2 BATCH FDA Start: 05-31-2023 CEMENT,BONE W/TOBRAMYCIN STRYK FDA Start: 03-21-2018 TRIATHLON UNIV T IB BASEPLATE FDA Start: 03-21-2018 TRIATLHON X3 PATELLA FDA Start: 03-21-2018 CEMENT,BONE W/TOBRAMYCIN STRYK FDA Start: 03-21-2018 CEMENT,BONE W/TOBRAMYCIN STRYK FDA Start: 03-21-2018 PLUG,BONE MEDIUM FDA Start: 03-21-2018 PLUG,BONE SMALL FDA Start: 03-21-2018 TRIATHLON CEMENT ED STEM FDA Start: 03-21-2018 TRIATHLON CEMENT ED STEM FDA Start: 03-21-[address] AB FEM COMP FDA Start: 03-21-[address] AB TIB INSERT FDA Start: 03-21-2018 CEMENT,BONE EDWIN H 1/2 BATCH FDA Start: 05-31-2023 CEMENT,BONE W/TOBRAMYCIN STRYK FDA Start: 03-21-2018 TRIATHLON UNIV T IB BASEPLATE FDA Start: 03-21-2018 TRIATLHON X3 PATELLA FDA Start: 03-21-2018 CEMENT,BONE W/TOBRAMYCIN STRYK FDA Start: 03-21-2018 CEMENT,BONE W/TOBRAMYCIN STRYK FDA Start: 03-21-2018 PLUG,BONE MEDIUM FDA Start: 03-21-2018 PLUG,BONE SMALL FDA Start: 03-21-2018 TRIATHLON CEMENT ED STEM FDA Start: 03-21-2018 TRIATHLON CEMENT ED STEM FDA Start: 03-21-[address] AB FEM COMP FDA Start: 03-21-[address] AB TIB INSERT FDA Start: 03-21-2018 CEMENT,BONE EDWIN H 1/2 BATCH FDA Start: 05-31-2023 Goals Date Patient Goal Desired Activity /State Functional Status Date Assessment Result Facility 02-20-2025 Functional Status Lunch Percent 100 [facility] 02-20-2025 Functional Status Refused [facility] 02-20-2025 Functional Status Room check performed [facility] 02-20-2025 Functional Status Pat [facility] 02-20-2025 Functional Status [facility] 02-19-2025 Functional Status Dinner Percent 100 [facility] 02-19-2025 Functional Status Pat [facility] 02-19-2025 Functional Status [facility] 02-19-2025 Functional Status [facility] 02-19-2025 Functional Status [facility] 02-18-2025 Functional Status Sensory Deficits None [facility] 11-12-2024 Functional Status Done [facility] 11-12-2024 Functional Status Door open, Non-Slip footwear, Room check performed [facility] 11-12-2024 Functional Status Pat [facility] 11-12-2024 Functional Status [facility] 11-12-2024 Functional Status [facility] 11-11-2024 Functional Status 11pm-3am [facility] 11-11-2024 Functional Status [facility] 11-11-2024 Functional Status [facility] 11-11-2024 Functional Status [facility] 11-11-2024 Functional Status [facility] 11-10-2024 Functional Status Independent [facility] 11-10-2024 Functional Status [facility] 11-10-2024 Functional Status [facility] 11-10-2024 Functional Status [facility] 11-10-2024 Functional Status [facility] 11-09-2024 Functional Status [facility] 11-09-2024 Functional Status [facility] 11-09-2024 Functional Status [facility] 11-08-2024 Functional Status [facility] 11-07-2024 Functional Status Transparent silicone dr alvarado [facility] 11-07-2024 Functional Status [facility] 11-06-2024 Functional Status NPO Status Maintained [facility] 11-06-2024 Functional Status [facility] 11-06-2024 Functional Status [facility] 11-05-2024 Functional Status NPO Since 00 :16:00 [facility] 11-04-2024 Functional Status Sensory Deficits None A [facility] 11-03-2024 Functional Status Standard Safet y ID band on, Allergy Band on, Call device within reach, Bed in low position, Wheels locked, Upper/Half-Length side-rails up, Safety level maintained [facility] 06-07-2023 Functional status [facility] Work Phone: 06-07-2023 Functional status Tolerates Activity Fair [facility] Work Phone: 09-09-2022 Functional Status Sensory Deficits None A [facility] Mental Status Date Assessment Result Facility 04-01-2025 Cognitive function Voice/Name [facility] Work Phone: 02-20-2025 Mental Status Oriented x 4 [facility] 02-19-2025 Mental Status [facility] 02-19-2025 Mental Status [facility] 02-18-2025 Mental Status [facility] 11-12-2024 Mental Status Orientation Oriented x 4 [facility] 11-12-2024 Mental Status [facility] 11-11-2024 Mental Status [facility] 11-11-2024 Mental Status Orientation Asse ssment Oriented x 4 [facility] 11-11-2024 Mental Status [facility] 11-10-2024 Mental Status [facility] 11-03-2024 Mental Status Orientation Oriented x 4 [facility] 06-07-2023 Cognitive function Appropriate [facility] Work Phone: 06-06-2023 Cognitive function Arousable To Voice/Nam e [facility] Work Phone: Clinical Notes 05-31-2023 to 04-01-2025 Note Date & Type Note Facility 04-01-2025 Note [facility] Medical Records Department [address] [place] [address] History Physical Exam 04/01/25 1004 MR#: [id number] Acct: [id number] Name: VEL NICHOLS Rep #: [id number] : 1960 64 From: Rui Vera MD PCP: Dr. Ct Dyson, DO [place] [place]: [place] [address]- History and Physical Allergies bee venom protein (honey bee) (bee sting) Allergy (Verified 03/03/25 16:34) Swelling Medications ???Medication ???Instructions ???Recorded ???Confirmed ???Type escitalopram oxalate 5 mg tablet 10 mg PO DAILY depression 10/15/16 03/03/25 Histor y (Lexapro) cedykytx-xba-rzuab acid 0.4 1 ea PO DAILY supplement 10/15/16 03/03/25 History mg-lycopene 300 mcg-lutein 250 mcg tablet (Centrum Silver) omeprazole 20 mg capsule,delayed 20 mg PO DAILY gerd 10/15/16 03/03/25 History release insulin aspart U-100 100 unit/mL 30 units subcut BID diabetes 01/15/18 03/03/25 His tory (3 mL) subcutaneous pen (Novolog FlexPen U-100 Insulin aspart) insulin degludec 100 unit/mL (3 80 unit SQ BID diabetes 01/15/18 03/03/25 History mL) subcutaneous pen (Tresiba FlexTouch U-100 insulin) montelukast 10 mg tablet 10 mg PO DAILY@1700 #42 tabs 03/22/18 03/03/25 Rx pravastatin 40 mg tablet 40 mg PO QHS 08/24/18 03/03/25 History cholecalciferol (vitamin D3) 25 25 mcg PO DAILY 05/17/23 03/03/25 History mcg (1,000 unit) tablet (Vitamin D3) daptomycin 500 mg intravenous 750 mg IV Q48 40 days #20 ea 06/05/23 03/03/25 Rx solution meropenem 500 mg intravenous 500 mg IV Q12 40 days #80 ea 06/05/23 03/03/25 Rx solution acetaminophen 500 mg tablet 1,000 mg (2 x 500 mg) PO Q8 #180 06/06/23 03/03/25 Rx tabs aspirin 81 mg chewable tablet 81 mg PO BID 4 weeks #56 tabs 06/06/23 03/03/25 Rx oxycodone 5 mg tablet 5 - 10 mg (1 - 2 x 5 mg) PO .4-6 06/06/23 03/03/25 Rx hours prn PRN Pain Score 4-10 7 days #60 tabs ondansetron HCl 4 mg tablet 4 mg PO Q8H PRN 02/06/25 03/03/25 History furosemide 40 mg tablet (Lasix) 40 mg PO QAM 03/03/25 03/03/25 History Have you fallen in the past year?: No PFSH Medical History Loss of hearing Wears dentures Depression Alcohol use Insulin dependent diabetes mellitus Arthritis High cholesterol Back pain History of hiatal hernia Dietary restriction Gastric reflux COPD (chronic obstructive pulmonary disease) Smoker History of pain when walking History of edema History of stress test Cardiology follow-up encounter Hypertension NSTEMI (non-ST elevated myocardial infarction) Surgical History H/O heart artery stent ( 11/06/24) Hx of knee surgery History of arthroplasty of knee Hx of left cataract extraction Hx of knee surgery Hx of knee surgery Hx of total knee arthroplasty Hx of right cataract extraction Hx of foot surgery Hx of arthroscopy Hx laparoscopic cholecystectomy Hx of hernia repair Hx of arthroscopy of right knee Status post coronary artery stent placement Coronary angioplasty status Status post revision of total replacement of right knee Social History Smoking Status: Former smoker how long ago did patient quit smokin years HPI HPI HPI: VEL NICHOLS, is a 64 M who presents to the office today for follow up of dialysis access options. He has had his vein mapping, currently using right IJ catheter without issues. He has had some return of renal function so a trial without sessions was undertaken though he had significant SOB and fluid retention so sessions were resumed. ROS General General: Yes weight change and weakness; No appetite, fatigue, colon cancer or breast cancer HEENT HEENT: No difficulty swallowing, eye injury, eye surgery, swollen glands or hoarseness Endo Endocrine: Yes diabetes mellitus; No thyroid disease, thyroid cancer, Hair loss, heat intolerance or cold intolerance Skin Skin: No rash or changing moles Musc Musculoskeletal: Yes back problems, arthritis and joint pain; No rheumatoid arthritis or gout Cardio Cardiovascular: Yes heart disease, high blood pressure, heart attack, heart stent and shortness of breath with exertion; No murmur, pacemaker, atrial fibrillation, palpitations or chest pain Psych Psychiatric: No depression, anxiety or hearing voices Resp Respiratory: Yes shortness of breath, Yes sleep apnea, Yes cough, Yes COPD, No asthma, No emphysema and Yes wheezing Gastro Gastrointestinal: Yes abdominal pain, Yes nausea or vomiting, No diarrhea, No constipation, No blood in stool, Yes acid reflux, No hemorrhoids, No ulcers, No gallbladder problem and No black,tarry stools Brennan Hematologic: Yes blood thinners, No blood disorders, No bleeding, Ye (more content not included)... [facility] 02-20-2025 Hospital Discharge instructions Patient Education 02/20/2025 14:32:19 Preventing Hypertension Preventing Hypertension Hypertension, commonly called high blood pressure, is when the force of blood pumping through the arteries is too strong. Arteries are blood vessels that carry blood from the heart throughout the body. Over time, hypertension can damage the arteries and decrease blood flow to important parts of the body, including the brain, heart, and kidneys. Often, hypertension does not cause symptoms until blood pressure is very high. For this reason, it is important to have your blood pressure checked on a regular basis. Hypertension can often be prevented with diet and lifestyle changes. If you already have hypertension, you can control it with diet and lifestyle changes, as well as medicine. What nutrition changes can be made? Maintain a healthy diet. This includes: Eating less salt (sodium). Ask your health care provider how much sodium is safe for you to have. The general recommendation is to consume less than 1 tsp (2,300 mg) of sodium a day. ?Do not add salt to your food. ?Choose low-sodium options when grocery shopping and eating out. Limiting fats in your diet. You can do this by eating low-fat or fat-free dairy products and by eating less red meat. Eating more fruits, vegetables, and whole grains. Make a goal to eat: ?1 2 cups of fresh fruits and vegetables each day. ?3 4 servings of whole grains each day. Avoiding foods and beverages that have added sugars. Eating fish that contain healthy fats (omega-3 fatty acids), such as mackerel or salmon. If you need help putting together a healthy eating plan, try the DASH diet. This diet is high in fruits, vegetables, and whole grains. It is low in sodium, red meat, and added sugars. DASH stands for Dietary Approaches to Stop Hypertension. What lifestyle changes can be made? Lose weight if you are overweight. Losing just 3?5% of your body weight can help prevent or control hypertension. ?For example, if your present weight is 200 lb (91 kg), a loss of 3 5% of your weight means losing 6 10 lb (2.7 4.5 kg). ?Ask your health care provider to help you with a diet and exercise plan to safely lose weight. Get enough exercise. Do at least 150 minutes of moderate-intensity exercise each week. ?You could do this in short exercise sessions several times a day, or you could do longer exercise sessions a few times a week. For example, you could take a brisk 10-minute walk or bike ride, 3 times a day, for 5 days a week. Find ways to reduce stress, such as exercising, meditating, listening to music, or taking a yoga class. If you need help reducing stress, ask your health care provider. Do not smoke. This includes e-cigarettes. Chemicals in tobacco and nicotine products raise your blood pressure each time you smoke. If you need help quitting, ask your health care provider. Avoid alcohol. If you drink alcohol, limit alcohol intake to no more than 1 drink a day for non women and 2 drinks a day for men. One drink equals 12 oz of beer, 5 oz of wine, or 1 oz of hard liquor. Why are these changes important? Diet and lifestyle changes can help you prevent hypertension, and they may make you feel better overall and improve your quality of life. If you have hypertension, making these changes will help you control it and help prevent major complications, such as: Hardening and narrowing of arteries that supply blood to: ?Your heart. This can cause a heart attack. ?Your brain. This can cause a stroke. ?Your kidneys. This can cause kidney failure. Stress on your heart muscle, which can cause heart failure. What can I do to lower my risk? Work with your health care provider to make a hypertension prevention plan that works for you. Follow your plan and keep all follow-up visits as told by your health care provider. Learn how to check your blood pressure at home. Make sure that you know your personal target blood pressure, as told by your health care provider. How is this treated? In addition to diet and lifestyle changes, your health care provider may recommend medicines to help lower your blood pressure. You may need to try a few different medicines to find what works best for you. You also may need to take more than one medicine. Take fcpg-nhb-dzoqadd and prescription medicines only as told by your health care provider. Where to find support Your health care provider can help you prevent hypertension and help you keep your blood pressure at a healthy level. Your local hospital or your community may also provide support services and prevention programs. The [place] [employer] offers an online support network at: http://supportnetwork.heart.org/ elnl-rnvsf-hnelfadr Where to find more information Learn more about hypertension from: National Heart, Lung, and Blood Walters: www.nhlbi.nih.gov/health/health- topics/topics/hbp Centers for Disease Control and Prevention: www.cdc.gov/bloodpressure [place] [employer]: http://familydoctor.org/familydo ctor/en/diseases-conditions/high -blood-pressure.printerview.all. html Learn more about the DASH diet from: National Heart, Lung, and Blood Walters: www.nhlbi.nih.gov/health/health- topics/topics/dash Contact a health care provider if: You think you are having a reaction to medicines you have taken. You have recurrent headaches or feel dizzy. You have swelling in your ankles. You have trouble with your vision. Summary Hypertension often does not cause any symptoms until blood pressure is very high. It is important to get your blood pressure checked regularly. Diet and lifestyle changes are the most important steps in preventing hypertension. By keeping your blood pressure in a healthy range, you can prevent complications like heart attack, heart failure, stroke, and kidney failure. Work with your health care provider to make a hypertension prevention plan that works for you. This information is not intended to replace advice given to you by your health care provider. Make sure you discuss any questions you have with your health care provider. Document Released: 11/27/2016 Document Revised: 03/06/2020 Document Reviewed: 07/24/2017 Elsevier Patient Education 2020 [email or web address]. Follow Up Care 02/17/2025 17:24:56 With:Justin Zhu, you will report tomorrow at 6:30am. Call them with any questions at [phone] Address:Unknown When:1-2 days With:CT DYSON DO Address: [address] [place] [phone] When:1-2 days Comments:Please call the office to schedule a hospital follow up appointment. [facility] 02-20-2025 Note Discharge Instructions Thank you for allowing [facility] to assist you with your healthcare needs. The following is important discharge information regarding your hospital visit. Your Care Team CT DYSON DO Your Diagnosis DM2 (diabetes mellitus, type 2) What to do next Scheduled Follow-Up Appointments Appointment Type When With Where Contact Information StatusMEDS - Diabetic Individual Visit 03/20/2025 04:00 PM EDT [facility] [phone] Confirmed PC OV 03/25/2025 01:[address] DYSON DO [facility] Confirmed Follow Up Appointments Follow Up with Justin Zhu, you will report tomorrow at 6:30am. Call them with any questions at [phone] When:Within 1-2 days Follow Up with CT DYSON DO When:Within 1-2 days Where:[address] [place] [phone] Additional Information: Please call the office to schedule a hospital follow up appointment. The Following Activity and Diet Have Been Ordered for You Discharge Activity - Ordered -- NO activity restrictions, 02/20/25 13:50:00 EDT Discharge Diet - Ordered -- No changes were made to your diet during your hospital stay. Please resume your pre hospitalization diet on discharge., 02/20/25 13:50:00 EDT The Following Equipment Has Been Ordered for You No qualifying data available. The Following Treatments Have Been Ordered for You Discharge Labs No qualifying data available. Discharge Radiology No qualifying data available. Other Therapies No qualifying data available. Post Acute Orders No qualifying data available. Someone Will Contact You Regarding These Home Health Referrals No home referrals have been ordered for you. No one will call you. Allergies Bee Stings lisinopril Cough Medications Please ask your primary doctor or pharmacist before taking any other medication not listed, including over the counter drugs, herbal medications, vitamins and or supplements as they may interact with your home medications. 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 Duration: 30 Days Unchanged albuterol (Albuterol (Eqv-Ventolin HFA) 90 mcg/ inh inhalation aerosol) 2 inh by inhalation Every 6 hours as needed for as needed for shortness of breath or wheezing COPD (chronic obstructive pulmonary disease) Unchanged aspirin (aspirin 81 mg oral delayed release tablet) 1 tab(s) by mouth Once a day Unchanged atorvastatin (atorvastatin 40 mg oral tablet) 1 tab(s) by mouth Once a day Unchanged clopidogrel (Plavix 75 mg oral tablet) 1 tab(s) by mouth Once a day Unchanged DME (FreeStyle Marysol 3+ Sensors) See instructions Place once sensor to the back of the upper arm every 15 days. Use reader or phone willi for daily blood sugar checks. 1 month supply Unchanged escitalopram (escitalopram 5 mg oral tablet) 1 tab(s) by mouth Once a day Unchanged ezetimibe (ezetimibe 10 mg oral tablet) 1 tab(s) by mouth Once a day Duration: 90 Days Unchanged insulin degludec (Tresiba FlexTouch 100 units/ mL 3 mL subcutaneous solution) 40 unit(s) Subcutaneous Once a day Duration: 90 Days Unchanged metoprolol (metoprolol tartrate 25 mg oral tablet) 1 tab(s) by mouth Twice daily with meals This takes the place of his prior dose of 1/ 2 tablet po bid. Unchanged midodrine (midodrine 5 mg oral tablet) See instructions 5 mg on DAY of Dialysis, prior to dialysis Unchanged ondansetron (ondansetron 4 mg oral tablet, disintegrating) 1 tab(s) by mouth Every 8 hours as needed for as needed for nausea/vomiting Nausea in adult patient Duration: 10 Days Unchanged pantoprazole (pantoprazole 40 mg oral enteric coated tablet) 1 tab(s) by mouth Once a day Unchanged semaglutide (Rybelsus 7 mg oral tablet) 1 tab(s) by mouth Once a day DM2 (diabetes mellitus, type 2) take at least 30 minutes before first food, beverage, or other oral meds Please take this list to your next doctor s visit. Bring all medications you take, including over the counter medications, herbals and other supplements with you to your doctor s visit. Patients and families are reminded to discard old lists and to update any records with all medication providers or retail pharmacies. Education Materials Preventing Hypertension Hypertension, commonly called high blood pressure, is when the force of blood pumping through the arteries is too strong. Arteries are blood vessels that carry blood from the heart throughout the body. Over time, hypertension can damage the arteries and decrease blood flow to important parts of the body, including the brain, heart, and kidneys. Often, hypertension does not cause symptoms until blood pressure is very high. For this reason, it is important to have your blood pressure checked on a regular basis. Hypertension can often be prevented with diet and lifestyle changes. If you already have hypertension, you can control it with diet and lifestyle changes, as well as medicine. What nutrition changes can be made? Maintain a healthy diet. This includes: Eating less salt (sodium). Ask your health care provider how much sodium is safe for you to have. The general recommendation is to consume less than 1 tsp (2,300 mg) of sodium a day. ? Do not add salt to your food. ? Choose low-sodium options when grocery shopping and eating out. Limiting fats in your diet. You can do this by eating low-fat or fat-free dairy products and by eating less red meat. Eating more fruits, vegetables, and whole grains. Make a goal to eat: ? 1 2 cups of fresh fruits and vegetables each day. ? 3 4 servings of whole grains each day. Avoiding foods and beverages that have added sugars. Eating fish that contain healthy fats (omega-3 fatty acids), such as mackerel or salmon. If you need help putting together a healthy eating plan, try the DASH diet. This diet is high in fruits, vegetables, and whole grains. It is low in sodium, red meat, and added sugars. DASH stands for Dietary Approaches to Stop Hypertension. What lifestyle changes can be made? Lose weight if you are overweight. Losing just 3?5% of your body weight can help prevent or control hypertension. ? For example, if your present weight is 200 lb (91 kg), a loss of 3 5% of your weight means losing 6 10 lb (2.7 4.5 kg). ? Ask your health care provider to help you with a diet and exercise plan to safely lose weight. Get enough exercise. Do at least 150 minutes of moderate-intensity exercise each week. ? You could do this in short exercise sessions several times a day, or you could do longer exercise sessions a few times a week. For example, you could take a brisk 10-minute walk or bike ride, 3 times a day, for 5 days a week. Find ways to reduce stress, such as exercising, meditating, listening to music, or taking a yoga class. If you need help reducing stress, ask your health care provider. Do not smoke. This includes e-cigarettes. Chemicals in tobacco and nicotine products raise your blood pressure each time you smoke. If you need help quitting, ask your health care provider. Avoid alcohol. If you drink alcohol, limit alcohol intake to no more than 1 drink a day for non women and 2 drinks a day for men. One drink equals 12 oz of beer, 5 oz of wine, or 1 oz of hard liquor. Why are these changes important? Diet and lifestyle changes can help you prevent hypertension, and they may make you feel better overall and improve your quality of life. If you have hypertension, making these changes will help you control it and help prevent major complications, such as: Hardening and narrowing of arteries that supply blood to: ? Your heart. This can cause a heart attack. ? Your brain. This can cause a stroke. ? Your kidneys. This can cause kidney failure. Stress on your heart muscle, which can cause heart failure. What can I do to lower my risk? Work with your health care provider to make a hypertension prevention plan that works for you. Follow your plan and keep all follow-up visits as told by your health care provider. Learn how to check your blood pressure at home. Make sure that you know your personal target blood pressure, as told by your health care provider. How is this treated? In addition to diet and lifestyle changes, your health care provider may recommend medicines to help lower your blood pressure. You may need to try a few different medicines to find what works best for you. You also may need to take more than one medicine. Take qbnm-kne-oqfnbwz and prescription medicines only as told by your health care provider. Where to find support Your health care provider can help you prevent hypertension and help you keep your blood pressure at a healthy level. Your local hospital or your community may also provide support services and prevention programs. The [place] [employer] offers an online support network at: http://supportnetwork.heart.org/ mizj-hwnul-oohayhnd Where to find more information Learn more about hypertension from: National Heart, Lung, and Blood Walters: www.nhlbi.nih.gov/health/health- topics/topics/hbp Centers for Disease Control and Prevention: www.cdc.gov/bloodpressure [place] [employer]: http://familydoctor.org/familydo ctor/en/diseases-conditions/high -blood-pressure.printerview.all. html Learn more about the DASH diet from: National Heart, Lung, and Blood Walters: www.nhlbi.nih.gov/health/health- topics/topics/dash Contact a health care provider if: You think you are having a reaction to medicines you have taken. You have recurrent headaches or feel dizzy. You have swelling in your ankles. You have trouble with your vision. Summary Hypertension often does not cause any symptoms until blood pressure is very high. It is important to get your blood pressure checked regularly. Diet and lifestyle changes are the most important steps in preventing hypertension. By keeping your blood pressure in a healthy range, you can prevent complications like heart attack, heart failure, stroke, and kidney failure. Work with your health care provider to make a hypertension prevention plan that works for you. This information is not intended to replace advice given to you by your health care provider. Make sure you discuss any questions you have with your health care provider. Document Released: 11/27/2016 Document Revised: 03/06/2020 Document Reviewed: 07/24/2017 Elsevier Patient Education 2020 [employer] Additional Information VACCINATE! IT SAVES LIVES! Members of the community who have not yet received the COVID-19 vaccine and would like to receive it can visit one of [facility] vaccine clinics. There are many vaccine clinic locations within the [facility]. For locations and available times, please visit [email or web address] It is important to note that some COVID mobile vaccine clinics are held outdoors and may be canceled in rainy or stormy conditions. To learn more about pediatric vaccinations (ages 5-11), we invite you to visit the [facility] webpage. [email or web address] To learn more about the COVID-19 vaccine, we invite you to visit the CDC website for a list of frequently asked questions.https://www.cdc.gov/co ronavirus/2019-ncov/vaccines/faq .html [facility] Patient Portal Access Instructions: Stay connected with your healthcare team and access your personal medical information anytime with the [facility] Patient Portal. Please follow the directions below to create your [facility] account: 1.Access the email account you provided upon registration to the hospital/physician office.2.Look for an invitation email from [facility].3.Open the email and access the invitation link: Accept Invitation to [facility].4.Fill in the required salcedo to create your account. To access your account, visit [employer]. Click the blue button labeled Access Patient Portal and then log in with the username and password that you created in the steps above. You will be able to view your test results, lab results, a summary of your visits, upcoming appointments and more. There is also a convenient messaging option where you can send secure messages to your provider. In addition, you will have the ability to download any documents or summaries to your computer and/or send the information securely to a physician. Remember that your healthcare information is confidential, so carefully consider who you will allow to register on the [facility] Patient Portal for access to your information. You can also access the [facility] Patient Portal on the [facility] willi. Simply click on Patient Portal and then log into your account. If you would like to receive a full copy of your medical records, please contact the [facility] Medical Records Department by calling [phone], Monday through Monday between 8 a.m. and 4:30 p.m. HOW TO SAFELY DISPOSE OF PRESCRIPTION MEDICATIONS Please use one of the following methods to safely dispose of your unused medications. 1.Use a drug disposal kit: the drug disposal pouch allows you to safely discard your old and unused drugs. Ask your nurse to give you one when you are discharged.2.Visit a local take-back location: Many local pharmacies and police departments have programs that collect old and unwanted prescription drugs. Call your local pharmacy or go to http://RepRegen/9B9Xt7f to find one close to you.3.Make use of household items: Use cat litter or old coffee grounds to dispose medications if other options are not available. Mix your drugs with these household products, seal them in an airtight container and throw it into the garbage. Call [facility]: [phone] to be sure your drugs can be disposed of in this way. Some medicines may require a different approach.4.Never flush your medications down the toilet. IF YOU HAVE BEEN PRESCRIBED AN OPIOID FOR PAIN If you have been prescribed an opioid (such as hydrocodone, oxycodone or morphine), it is critical to understand the possible side effects and risks of opioid pain medications. Even when taken as directed, opioids can have several side effects including: Tolerance, meaning you might need to take more of a medication for the same pain relief. Nausea, vomiting and/or constipation. Sleepiness, dizziness, dry mouth, confusion, depression or itching. Physical dependence, meaning you have withdrawal symptoms when a medication is stopped, can develop within a few days. KNOW YOUR RESPONSIBILITIES It is important to know exactly how much and how often to take the opioid pain medications you are prescribed. Never take opioids in higher amounts or more often than prescribed. Do not combine opioids with alcohol or other drugs that cause drowsiness, such as benzodiazepines, also known as benzos, including diazepam and alprazolam, muscle relaxants or sleep aids. Never sell or share prescription opioids. This is illegal. Store opioids in a secure place and out of reach of others (including children, family, friends and visitors). The last page of this document has been signed and retained as a CHART COPY. Signatures Patient Education Materials Preventing Hypertension Medication Leaflets My discharge plan and instructions have been reviewed and explained to me and I,VEL NICHOLS understand my current condition and have read and understand these discharge instructions. I have received a written copy of the plan/instructions. If I have questions, I am aware that I should contact my doctor. 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 Signature: Date/Time: Relationship to Patient: Witness Name/Signature: Date/Time: [facility] 02-20-2025 Discharge summary Date of Service 02/20/2025 Discharge Diagnosis Hypertensive emergency on admission, blood pressure was 246/94 on presentation Elevated troponin In the setting of demand ischemia secondary to hypertension Acute on chronic systolic heart failure exacerbation with severe volume overload Acute decompensation of chronic kidney disease stage IV, stopped dialysis 3 weeks ago, patient then presented with severe volume overload Chronic anemia secondary to chronic kidney disease Diabetes mellitus type 2 Anxiety and depression Coronary artery disease status post CABG GERD Hyperlipidemia Chronic COPD Hospital Course Patient is a 64-year-old male with past medical history significant for hypertension, diabetes mellitus type 2, stage IV chronic kidney disease, anxiety and depression, coronary artery disease status post CABG, hyperlipidemia, COPD, carotid artery disease who presented to the emergency department for evaluation of shortness of breath. Patient was last discharged from this facility in October 2020 for when he was under cardiothoracic surgery service for CABG. During that admission patient had to be started on dialysis. Patient reports he had been on dialysis up until about 3 weeks ago and they decided to do trial off dialysis. He was previously going 2 days/week which had been working well for him. Since he was taken off of dialysis he has had progressively worsening shortness of breath. He denied any cough, fever, chills. Does endorse some diffuse chest pain and extreme shortness of breath with activity. There is also had worsening swelling to bilateral lower extremities. In the emergency department he was also noted to be hypertensive with a blood pressure as high as 246/94, was 99% on room air. Labs obtained showed a white blood cell count of 7, hemoglobin 11, platelet count of 160,000, creatinine of 5.7, proBNP greater than 12,000 and high-sensitivity troponin 180. Chest imaging showed pulmonary vascular prominence. He was started with treatment of 10 mg of IV hydralazine for blood pressure management. Admitted for further evaluation and management. Patient was seen by dialysis after initiation yesterday. He has remained hemodynamically stable. Completed dialysis x 2 sessions. Significant volume status improvement. Cleared for discharge from nephrology standpoint. Arranged outpatient dialysis chair confirmed. Patient otherwise without any acute concerns, medically optimized for discharge today. Allergies Bee Stings lisinopril Cough Procedures NA Consults Consult to Physician - Ordered -- 02/18/25 5:07:00 NIKHILTROBERTA KEVIN J MD, Routine, Dialysis Imaging Results and Diagnostics XR Chest 1 View Result Date: February 17, 2025 Verified By: ALEX ORTIZ MD CLINICAL STATEMENT: IMPRESSION: Pulmonary vascular prominence. Physical Exam Vitals and Measurements T: 36.7 C (Oral) TMIN: 36.7 C (Oral) TMAX: 37.3 C (Oral) HR: 78 (Apical) RR: 18 BP: 131/93 SpO2: 96% Weight Dosing Weight: 88.9 kg (02/19/25) Dosing Weight: 90.5 kg (02/19/25) General: Appears chronically ill, in no acute distress HEENT: Mucous membranes moist, no nasal drainage Respiratory: Lungs clear, no rales, no rhonchi, no wheezes. Normal respiratory effort. Cardiovascular: Regular rate and rhythm; no murmurs, rubs, or gallops. Edema/varicosities of extremities: Trace edema to upper or lower extremities Gastrointestinal: Abdomen soft, NT, ND, without masses. Bowel sounds active x4 Genitourinary: No suprapubic/CVA tenderness or bladder distention. Musculoskeletal: No pinpoint tenderness or effusions. Skin: No rashes or lesions noted Neurological: No tremor or focal weakness Psychiatric:Mood and behavior normal Pending Labs and Studies NA Code Status Code Status - Ordered -- 02/18/25 2:30:00 EDT, Full Code, Constant Order Admission Date 02/17/2025 Discharge Date 02/20/2025 Medications New Prescription bumetanide (Bumex)2 Milligram by mouth once a day. cholecalciferol (Vitamin D3 25 mcg (1000 intl units) oral tablet)1 tab(s) by mouth every day. losartan (losartan 25 mg oral tablet)1 tab(s) by mouth once a day. Changed polyethylene glycol 3350 (Miralax Powder Packet)17 gram(s) by mouth once a day as needed Constipation. Unchanged acetaminophen-oxyCODONE (acetaminophen-oxyCODONE 325 mg-5 mg oral tablet)1 tab(s) by mouth every 6 hours as needed for pain for 30 Days. Refills: 0. albuterol (Albuterol (Eqv-Ventolin HFA) 90 mcg/inh inhalation aerosol)2 inh by inhalation every 6 hours as needed as needed for shortness of breath or wheezing. Refills: 5. aspirin (aspirin 81 mg oral delayed release tablet)1 tab(s) by mouth once a day. atorvastatin (atorvastatin 40 mg oral tablet)1 tab(s) by mouth once a day. Refills: 3. clopidogrel (Plavix 75 mg oral tablet)1 tab(s) by mouth once a day. Refills: 2. DME (FreeStyle [place] 3+ Sensors)Place once sensor to the back of the upper arm every 15 days. Use reader or phone willi for daily blood sugar checks. 1 month supply. Refills: 11. escitalopram (escitalopram 5 mg oral tablet)1 tab(s) by mouth once a day. Refills: 3. ezetimibe (ezetimibe 10 mg oral tablet)1 tab(s) by mouth once a day for 90 Days. Refills: 3. insulin degludec (Tresiba FlexTouch 100 units/mL 3 mL subcutaneous solution)40 unit(s) Subcutaneous once a day for 90 Days. Refills: 3. metoprolol (metoprolol tartrate 25 mg oral tablet)1 tab(s) by mouth twice daily with meals. This takes the place of his prior dose of 1/2 tablet po bid.. Refills: 3. midodrine (midodrine 5 mg oral tablet)5 mg on DAY of Dialysis, prior to dialysis. Refills: 3. ondansetron (ondansetron 4 mg oral tablet, disintegrating)1 tab(s) by mouth every 8 hours as needed as needed for nausea/vomiting for 10 Days. Refills: 2. pantoprazole (pantoprazole 40 mg oral enteric coated tablet)1 tab(s) by mouth once a day. Refills: 3. semaglutide (Rybelsus 7 mg oral tablet)1 tab(s) by mouth once a day. take at least 30 minutes before first food, beverage, or other oral meds. Refills: 3. Follow Up Follow Up with Justin Zhu, you will report tomorrow at 6:30am. Call them with any questions at [phone] When:Within 1-2 days Follow Up with CT DYSON DO When:Within 1-2 days Where:[address] [place] [phone] Additional Information: Please call the office to schedule a hospital follow up appointment. Follow Up Appointments No qualifying data available. Follow Up Labs/Studies Discharge Labs No Follow-up Labs Discharge Studies No Follow-up Studies Discharge Diet Discharge Diet - Ordered -- No changes were made to your diet during your hospital stay. Please resume your pre hospitalization diet on discharge., 02/20/25 13:50:00 EDT Discharge Activity Discharge Activity - Ordered -- NO activity restrictions, 02/20/25 13:50:00 EDT Condition on Discharge Stable Discharge Disposition Home Information Provided To Patient Time Spent 40 minutes Digitally Signed by JULIO C HART on 02/20/2025 02:05 PM [facility] 02-20-2025 Nephrology Progress note Date of Service February 20, 2025 Patient feels much better. Back to baseline. No shortness of breath on room air. No chest pain. Good appetite. Blood pressures were under better control. Lungs are clear on exam. Labs reviewed. Potassium 5.0. At this time it is okay to discharge the patient. I contacted the dialysis unit to be certain he has an outpatient chair time. Can safely leave the hospital once chair time is confirmed. Should be on a Monday schedule. Digitally Signed by EDWARD GRANADOS MD on 02/20/2025 12:08 PM [facility] 02-19-2025 Note Exam Date Time Procedure Performing Provider Status 02/19/25 4:37 PM Echocardiogram, Adult - CV JANIA, TO MARIA LUISA Baron MD; Auth (Verified) [id number] Nephrology Progress note Date of Service February 19, 2025 Subjective Patient had a second dialysis treatment after returning to dialysis today. Due to cramping into thetreatment. Shortness of breath much improved. Continues to make urine. Good appetite. No nausea. Nochest pain. Objective Vitals and Measurements T: 36.5 C (Oral) TMIN: 36.5 C (Oral) TMAX: 36.7 C (Oral) HR: 73 RR: 16 BP: 144/95 SpO2: 93% HT: 171cm WT: 88.9 kg BMI: 32.22 Intake and Output 7AM Yesterday to 7AM Today Intake and Output (Last 24 hours) Intake Oral Intake 340.00 Output Hemodialysis 1826.00 Stool Count 0.00 Urine Count 3.00 Total Summary Total Intake 340.00 Total Output 1826.00 Fluid Balance -1486.00 Physical Exam General: No distress on room air HEENT: Mucosa was moist, sclera anicteric, extraocular muscles intact, JVD present Lungs: Bilateral expiratory wheezes Access: Right internal jugular tunneled dialysis catheter Heart: Regular with no murmurs rubs or gallops Abdomen: Positive bowel sounds, soft, no palpable masses Extremities: 2+ edema, pulses 2+ in all 4 extremities Skin: No rashes, normal turgor [1] Weight Dosing Weight: 88.9 kg (02/19/25) Dosing Weight: 90.5 kg (02/19/25) Medications Medications (23) Active Scheduled: (12) aspirin 81 mg EC 81 mg 1 tab(s), Oral, qDay atorvastatin 40 mg tablet 40 mg 1 tab(s), Oral, qDay cholecalciferol 25 mcg tablet (Vit D3 1000 units) 25 mcg 1 tab(s), Oral, Daily clopidogrel 75 mg Tablet 75 mg 1 tab(s), Oral, qDay escitalopram 5 mg tablet 5 mg 1 tab(s), Oral, qDay ezetimibe 10 mg tablet 10 mg 1 tab(s), Oral, qDay heparin 5,000 units/mL (1 mL) vial 5,000 unit(s) 1 mL, Subcutaneous, q8h insulin lispro 100 units/mL Soln (3 mL) Give 0-10 units/dose, Subcutaneous, TIDAC losartan 25 mg tablet 25 mg 1 tab(s), Oral, qDay metoprolol tartrate 25 mg tablet 25 mg 1 tab(s), Oral, BIDM pantoprazole 40 mg EC tablet 40 mg 1 tab(s), Oral, qDay Rybelsus 7 mg oral tablet 7 mg, Oral, qDay Continuous: (0) PRN: (11) acetaminophen 325 mg Tablet 650 mg 2 tab(s), Oral, q4h acetaminophen 325 mg Tablet 650 mg 2 tab(s), Oral, q4h albuterol - ipratropium 2.5 mg-0.5 mg/3 mL Inhal Amanda UD 3 mL, Inhalation, q2hRT clonidine 0.1 mg tablet 0.1 mg 1 tab(s), Oral, q3h dextrose 50% Solution Disp syringe 50 mL 25 gram(s) 50 mL, IV Push, AsDirected guaifenesin 100 mg/5 mL Liquid 120 mL 200 mg 10 mL, Oral, q4h hydralazine 10 mg Tablet 10 mg 1 tab(s), Oral, q3h labetalol 5 mg/mL (20mL) MDV 10 mg 2 mL, IV Push, q2h melatonin 3 mg tablet 3 mg 1 tab(s), Oral, qHS ondansetron 2 mg/ 1 mL 2 mL INJ 4 mg 2 mL, IV Push, q4h polyethylene glycol 3350 - UD packet 17 gram(s) 15 mL, Oral, qDay Lab Results 02/19 08:14 Glucose Level: 110 Sodium Level: 140 Potassium Level: 4.8 BUN: 35.0 H Creatinine Lvl (s): 4.28 H 02/18 07:16 WBC: 7.4 Hgb: 11.5 L Hct: 34.6 L Platelet: 150 Neutrophil %: 69.0 Glucose Level: 85 Sodium Level: 144 Potassium Level: 4.2 BUN: 56.0 H Creatinine Lvl (s): 5.69 H EKG No qualifying data available. Assessment/Plan 1. Stage IV chronic kidney disease with acute kidney injury: Patient had been dialysis dependent until 3 weeks ago. He has been given a trial off of renal replacement therapy. Unfortunately he has developed worsening fluid retention as well as symptoms of uremia including anorexia and nausea. Patient resumed dialysis yesterday. Second treatment today. 5 L fluid removal in the past 2 days. He is less short of breath. Blood pressure has improved. Okay to resume outpatient dialysis schedule starting on Monday. I informed the patient that dialysis will likely be chronic and he should anticipate having an internal access created soon. 2. Combined systolic and diastolic heart failure. Last ejection fraction was 45%. He does have diastolic dysfunction. He is now fluid overloaded. Echocardiogram is pending. Will manage volume with dialysis. As he will now be dialysis dependent, I have started the patient on losartan. As patient continues to produce urine, I will add a diuretic to help with interdialytic weight gains. 3. Hypertensive urgency: This is mostly driven by fluid overload. Improved after dialysis. Currently on metoprolol. Can increase ARB once patient is euvolemic. 4. Disposition: Okay to discharge. [1] Consult Note; EDWARD GRANADOS MD 02/18/2025 08:39 EDT Digitally Signed by EDWARD GRANADOS MD on 02/19/2025 01:49 PM [id number] Note Date of Service 02/19/2025 Chief Complaint Shortness of breath Subjective Patient is a 64-year-old male with past medical history significant for hypertension, diabetes mellitus type 2, stage IV chronic kidney disease, anxiety and depression, coronary artery disease statuspost CABG, hyperlipidemia, COPD, carotid artery disease who presented to the emergency department for evaluation of shortness of breath. Patient was last discharged from this facility in October 2020 for when he was under cardiothoracic surgery service for CABG. During that admission patient had to be started on dialysis. Patient reports he had been on dialysis up until about 3 weeks ago and they decided to do trial off dialysis. He was previously going 2 days/week which had been working well for him. Since he was taken off of dialysis he has had progressively worsening shortness of breath. He denied any cough, fever, chills. Does endorse some diffuse chest pain and extreme shortness of breath with activity. There is also had worsening swelling to bilateral lower extremities. In the emergency department he was also noted to be hypertensive with a blood pressure as high as 246/94, was 99% on room air. Labs obtained showed a white blood cell count of 7, hemoglobin 11, platelet count of 160,000, creatinine of 5.7, proBNP greater than 12,000 and high-sensitivity troponin 180. Chest imaging showed pulmonary vascular prominence. He was started with treatment of 10 mg of IV hydralazine. Admitted for further evaluation and management. Patient was seen by dialysis after initiation yesterday. He has remained hemodynamically stable. Goal to achieve dry weight based on nephrology note yesterday with another dialysis treatment completed today. Patient himself reports shortness of breath is actually improved. Does have increase in activity tolerance since coming to the hospital. Denies any acute concerns. Looking to be discharged soon as possible. Did discuss with him that we need to confirm that he has chair availability in the communityand further direction from nephrology services as far as when discharge will be appropriate. He otherwise reports no chest discomfort, fever, chills, other acute concerns. Said he did gain about 12 pounds of weight in the last few weeks off dialysis. Objective Vitals and Measurements T: 36.5 C (Oral) TMIN: 36.5 C (Oral) TMAX: 36.7 C (Oral) HR: 73 RR: 16 BP: 144/95 SpO2: 93% HT: 171cm WT: 88.9 kg BMI: 32.22 Intake and Output 7AM Yesterday to 7AM Today Intake and Output (Last 24 hours) Intake Oral Intake 340.00 Output Hemodialysis 3502.00 Stool Count 0.00 Urine Count 3.00 Total Summary Total Intake 340.00 Total Output 3502.00 Fluid Balance -3162.00 Physical Exam General: Appears chronically ill, in no acute distress HEENT: Mucous membranes moist, no nasal drainage Respiratory: Diminished on auscultation bilaterally, normal respiratory effort, wheezing throughout Cardiovascular: Regular rate and rhythm; no murmurs, rubs, or gallops. Edema/varicosities of extremities: 1+ pitting edema bilateral lower extremities Gastrointestinal: Abdomen soft, NT, ND, without masses. Bowel sounds active x4 Genitourinary: No suprapubic/CVA tenderness or bladder distention. Musculoskeletal: No pinpoint tenderness or effusions. Skin: No rashes or lesions noted Neurological: No tremor or focal weakness Psychiatric: Mood and behavior normal Weight Dosing Weight: 88.9 kg (02/19/25) Dosing Weight: 90.5 kg (02/19/25) Medications Medications (23) Active Scheduled: (12) aspirin 81 mg EC 81 mg 1 tab(s), Oral, qDay atorvastatin 40 mg tablet 40 mg 1 tab(s), Oral, qDay cholecalciferol 25 mcg tablet (Vit D3 1000 units) 25 mcg 1 tab(s), Oral, Daily clopidogrel 75 mg Tablet 75 mg 1 tab(s), Oral, qDay escitalopram 5 mg tablet 5 mg 1 tab(s), Oral, qDay ezetimibe 10 mg tablet 10 mg 1 tab(s), Oral, qDay heparin 5,000 units/mL (1 mL) vial 5,000 unit(s) 1 mL, Subcutaneous, q8h insulin lispro 100 units/mL Soln (3 mL) Give 0-10 units/dose, Subcutaneous, TIDAC losartan 25 mg tablet 25 mg 1 tab(s), Oral, qDay metoprolol tartrate 25 mg tablet 25 mg 1 tab(s), Oral, BIDM pantoprazole 40 mg EC tablet 40 mg 1 tab(s), Oral, qDay Rybelsus 7 mg oral tablet 7 mg, Oral, qDay Continuous: (0) PRN: (11) acetaminophen 325 mg Tablet 650 mg 2 tab(s), Oral, q4h acetaminophen 325 mg Tablet 650 mg 2 tab(s), Oral, q4h albuterol - ipratropium 2.5 mg-0.5 mg/3 mL Inhal Amanda UD 3 mL, Inhalation, q2hRT clonidine 0.1 mg tablet 0.1 mg 1 tab(s), Oral, q3h dextrose 50% Solution Disp syringe 50 mL 25 gram(s) 50 mL, IV Push, AsDirected guaifenesin 100 mg/5 mL Liquid 120 mL 200 mg 10 mL, Oral, q4h hydralazine 10 mg Tablet 10 mg 1 tab(s), Oral, q3h labetalol 5 mg/mL (20mL) MDV 10 mg 2 mL, IV Push, q2h melatonin 3 mg tablet 3 mg 1 tab(s), Oral, qHS ondansetron 2 mg/ 1 mL 2 mL INJ 4 mg 2 mL, IV Push, q4h polyethylene glycol 3350 - UD packet 17 gram(s) 15 mL, Oral, qDay Lab Results 02/19 08:14 Glucose Level: 110 Sodium Level: 140 Potassium Level: 4.8 BUN: 35.0 H Creatinine Lvl (s): 4.28 H 02/18 07:16 WBC: 7.4 Hgb: 11.5 L Hct: 34.6 L Platelet: 150 Neutrophil %: 69.0 Glucose Level: 85 Sodium Level: 144 Potassium Level: 4.2 BUN: 56.0 H Creatinine Lvl (s): 5.69 H Imaging Results and Diagnostics XR Chest 1 View Result Date: February 17, 2025 Verified By: ALEX ORTIZ MD CLINICAL STATEMENT: IMPRESSION: Pulmonary vascular prominence. EKG No qualifying data available. Assessment/Plan Hypertensive emergency on admission, blood pressure was 246/94 on presentation Elevated troponin In the setting of demand ischemia secondary to hypertension Acute on chronic systolic heart failure exacerbation with severe volume overload Acute decompensation of chronic kidney disease stage IV, stopped dialysis 3 weeks ago, now patient with severe volume overload Chronic anemia secondary to chronic kidney disease Diabetes mellitus type 2 Anxiety and depression Coronary artery disease status post CABG GERD Hyperlipidemia Chronic COPD Plan: Continue medical admission, stepdown, monitored floor with heart failure exacerbation and severe volume overload Intake and output monitoring, daily weights Nephrology following, appreciate recommendations, hemodialysis has been initiated Continue home statin, ASA, Plavix, escitalopram, Zetia, losartan, metoprolol and PPI therapy for chronic condition management Patient remains on 40 units of subcutaneous Lantus, sliding scale insulin coverage with meals, hypoglycemia protocols in place Work with case management to ensure patient still with chair and outpatient community for dischargeplanning Level of Care Indication SD monitor (CHF exacerbation) DVT Prophylaxis Heparin SQ Maintenance IVF Indication NA / No maintenance IVF Indwelling Urinary Catheter Indication NA No indwelling catheter Anticipated Timeline of Discharge 48 hours Anticipated DC Disposition Home without services Time Spent 35 minutes Digitally Signed by JULIO C HART on 02/19/2025 01:19 PM [id number] Note Date of Service 02/18/2025 Please refer to H&P performed today. Patient currently undergoing dialysis for volume removal Continue current antihypertensives, blood pressure better controlled overall pressure likely to improve with volume status optimization as well Echocardiogram pending at this time Elevated troponin likely secondary to hypertensive emergency, no other signs symptoms of ischemia Continue on stepdown at this time given hypertension and volume overload Digitally Signed by RAYMUNDO CORNELL DO on 02/18/2025 10:31 PM [facility] [id number] Evaluation + Plan noteExtracted from: Title:Clinical Document Author:ALEJANDRO JERNIGAN MD Date:02/18/25 [facility] Hospitalist History and Physical Date of Admission: patient is being admitted on February 18, 2025 Chief complaint: shortness of breath History of present illness: History is taken from talking with emergency room physician Dr. Al as well as talking with the patient. Patient has a past medical history of hypertension, diabetes mellitus type II, CKD stage IV, anxiety/depression, coronary artery disease status post CABG, Gerd, hyperlipidemia, COPD, carotid artery stenosis. Patient was last discharged from here in October 2024 when the patient was under the cardiothoracic surgery service for CABG. During the admission the patient was started on dialysis. Patient reports that he had been on dialysis until three weeks ago they decided to do a trial off of dialysis. Patient reports that since then he has had progressively worsening shortness of breath. He denies a cough. Has diffuse chest pain. Reports progressively worsening diffuse edema and swelling. Since presenting to the emergency room the patient has been afebrile, blood pressure as high as 246/94, 99% room air. The following labs and imaging were personally reviewed WBC 7.2 hemoglobin 11.9 platelet count 160 creatinine 5.70 does have chronic kidney disease otherwise no concerning finding on CMP Pro BNP 12,396 high-sensitivity troponin 180 chest x-ray showed pulmonary vascular prominence EKG personally reviewed and interpreted showed sinus rhythm In emergency room the patient was given a breathing treatment as well as 10 mg IV hydralazine. Past medical history: Knee replacement Allergy to environmental factors CAD IN [place] ARTERY COPD (chronic obstructive pulmonary disease) Chronic knee 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 DM2 (diabetes mellitus, type 2) Depression ESRD on dialysis GERD (gastroesophageal reflux disease) History of acute myocardial infarction Hoarseness, persistent Hypercholesteremia Hypertension Impotence Left carotid stenosis Long-term insulin use NSTEMI (non-ST elevated myocardial infarction) Nausea in adult patient Osteoarthritis Pain of right lower extremity Plantar fasciitis, left Prostate cancer screening S/P CABG x 4 SMOKELESS TOBACCO USE Screening for colon cancer Testosterone insufficiency Cardiovascular stress testin08/04/21 Colonoscopy: 2012 Stent: 12/29/11 Manipulation of knee joint under anesthetic Arthroplasty of knee Arthroscopy of knee joint Cataract Cholecystectomy Hernia repair Family history: Mother: Cancer; Heart disease Father: Cancer; Heart disease Sister: Cancer Brother: Heart disease Social history: Denies smoking cigarettes or alcohol consumption Medications: Home Medications (17) Active, medications were not verified by pharmacy at the time of this dictation acetaminophen 650 mg = 2 tab(s), PRN, Oral, q4h acetaminophen-oxyCODONE 325 mg-5 mg oral tablet 1 tab(s), PRN, Oral, q6hr Albuterol (Eqv-Ventolin HFA) 90 mcg/inh inhalation aerosol 180 mcg = 2 inh, PRN, Inhalation, q6hr aspirin 81 mg oral delayed release tablet 81 mg = 1 tab(s), Oral, qDay atorvastatin 40 mg oral tablet 40 mg = 1 tab(s), Oral, qDay escitalopram 5 mg oral tablet 5 mg = 1 tab(s), Oral, qDay ezetimibe 10 mg oral tablet 10 mg = 1 tab(s), Oral, qDay FreeStyle Marysol 3+ Sensors See Instructions metoprolol tartrate 25 mg oral tablet 25 mg = 1 tab(s), Oral, BIDM midodrine 5 mg oral tablet See Instructions Miralax Powder Packet , PRN, Oral, qDay ondansetron 4 mg oral tablet, disintegrating 4 mg = 1 tab(s), PRN, Oral, q8h pantoprazole 40 mg oral enteric coated tablet 40 mg = 1 tab(s), Oral, qDay Plavix 75 mg oral tablet 75 mg = 1 tab(s), Oral, qDay Rybelsus 7 mg oral tablet 7 mg = 1 tab(s), Oral, qDay Tresiba FlexTouch 100 units/mL 3 mL subcutaneous solution 40 unit(s), Subcutaneous, qDay Vitamin D3 25 mcg (1000 intl units) oral capsule 25 mcg = 1 cap(s), Oral, Daily Allergies: Bee Stings lisinopril (Cough) Review of systems: See HPI for pertinent positives and negatives. All other review of systems have been reviewed and they are negative. Vitals Signs(Last 24 hrs)__Last Charted Minimum Maximum SBPH 213(FEB 18 01:46)H 203(FEB 17 17:26)H 215(FEB 18 00:24) DBPH 96(FEB 18 01:46)68(FEB 17 17:26)H 96(FEB 18 01:46) Physical examination: HEENT: No Pallor, No Icterus Cardiac: RRR, No murmur, elevated JVD Lungs: CTA, good air entry Abdomen: Soft Non tender Musculoskeletal: No joint pains or swelling Extremities: 3+ bilateral lower extremity edema, good pulses Neurological: Alert, no deficits Skin: No rash, no nodules Labs: WBC: 7.2 10^3/mcL (02/17/25 20:57:00) RBC: 4.37 10^6/mcL Low (02/17/25 20:57:00) Hgb: 11.9 G/dL Low (02/17/25 20:57:00) Hct: 35.6 % Low (02/17/25 20:57:00) MCV: 81.4 fL (02/17/25 20:57:00) MCH: 27.2 pg (02/17/25 20:57:00) MCHC: 33.4 G/dL (02/17/25 20:57:00) RDW: 15.1 % (02/17/25 20:57:00) Platelet: 160 10^3/mcL (02/17/25 20:57:00) MPV: 7.4 fL (02/17/25 20:57:00) Monocyte Distribution Width: 16.99 (02/17/25 20:57:00) Neutrophil %: 66.1 % (02/17/25 20:57:00) Lymphocyte %: 20.9 % (02/17/25 20:57:00) Monocyte %: 6.8 % (02/17/25 20:57:00) Eosinophil %: 5.6 % (02/17/25 20:57:00) Basophil %: 0.6 % (02/17/25 20:57:00) Neutrophil, Absolute: 4.8 10^3/mcL (02/17/25 20:57:00) Lymphocyte, Absolute: 1.5 10^3/mcL (02/17/25 20:57:00) Monocyte, Absolute: 0.5 10^3/mcL (02/17/25 20:57:00) Eosinophil, Absolute: 0.4 10^3/mcL (02/17/25 20:57:00) Basophil, Absolute: 0 10^3/mcL (02/17/25 20:57:00) Glucose Level: 170 mg/dL High (02/17/25 20:57:00) Sodium Level: 142 mEq/L (02/17/25 20:57:00) Potassium Level: 4.4 mEq/L (02/17/25 20:57:00) Chloride: 107 mEq/L (02/17/25 20:57:00) CO2: 27 mEq/L (02/17/25::00) Electrolyte Balance: 8 mEq/L (02/17/25 20:57:00) BUN: 58 mg/dL High (02/17/25 20:57:00) Creatinine Lvl (s): 5.7 mg/dL High (02/17/25 20:57:00) Estimated Glomerular Filtration Rate: 10 ml/min/1.73sqm (02/17/25 20:57:00) BUN/Creatinine Ratio: 10.2 ratio (02/17/25:57:00) Calcium Lvl: 9 mg/dL (02/17/25 20:57:00) Total Protein: 6.8 G/dL (02/17/25 20:57:00) Albumin Level: 3.6 G/dL (02/17/25 20:57:00) Globulin: 3.2 G/dL (02/17/25 20:57:00) A/G Ratio: 1.1 ratio (02/17/25 20:57:00) Bili Total: 0.2 mg/dL (02/17/25 20:57:00) Alk Phos: 71 U/L (02/17/25 20:57:00) AST/SGOT: 21 U/L (02/17/25 20:57:00) ALT/SGPT: 15 U/L (02/17/25 20:57:00) N-Terminal proBNP: 83612 pg/mL High (02/17/25 20:57:00) High Sensitivity Troponin I: 180 ng/L High (02/18/25 00:24:00) High Sensitivity Troponin I: 98 ng/L High (02/17/25 20:57:00) No qualifying data available. Assessment and plan: Patient presents on February 18, 2025 due to having progressively worsening shortness of breath. Hypertensive emergency. Patient does require two midnight hospital stay due to having hypertensive emergency with current blood pressure blood pressure 246/94 and the patient has an elevated troponin. Continue home medications. As needed hydralazine, labetalol and clonidine. Patient will be on step down with monitor. Pending clinical course will require ICU care. Contributing is heart failure exacerbation and the patient also has a history of coronary artery disease status post CABG. Patient cannot be treated outpatient due to high risk for stroke. Acute on chronic systolic heart failure exacerbation with severe volume overload. Will get an echocardiogram. Will consult nephrology for dialysis. Chronic anemia secondary chronic kidney disease. Stable Acute decompensation of chronic kidney disease stage IV. They did stop dialysis three weeks ago. Patient now has severe volume overload. Will consult nephrology for dialysis. Elevated troponin secondary to hypertensive emergency. Patient will be on step down with monitor. Will get a repeat troponin. Diabetes mellitus type II. Continue home medications. Sliding scale insulin. Anxiety/depression. Continue home medications Coronary artery disease status post CABG. Will get an echocardiogram Gerd. Continue Protonix Hyperlipidemia. Continue home medications Chronic COPD not in exacerbation Prophylaxis subcu heparin Code status full code Future Appointments Appointment Date:03/20/2025 04:00:00 PM Scheduled Provider: Location:[facility] Appointment Type:MEDS - Diabetic Individual Visit Appointment Date:03/25/2025 01:30:00 PM Scheduled Provider:CT DYSON DO Location:[facility] Appointment Type:PC OV Future Scheduled Tests Laboratory* Prostate Specific Antigen 09/23/24 * Lipid Profile 09/23/24 * Albumin/Creatinine Ratio, Random Urine 09/23/24 * Complete Metabolic Panel 09/23/24 [facility] 03-25-2025 Nephrology procedure note Date of Service February 18, 2025 Patient seen in dialysis. Hemodynamically stable. Tunneled catheter is sluggish. May need to use Cathflo after procedure. Will monitor closely. Will plan for dialysis again tomorrow to achieve dry weight. Digitally Signed by EDWARD GRANADOS MD on 02/18/2025 10:27 AM [facility] [id number] Nephrology Consult note Date of Service February 18, 2025 Reason for Consultation Chronic kidney disease with acute kidney injury, hypertensive urgency, pulmonary edema History of Present Illness Patient is 64 years old. History of type 2 diabetes with chronic kidney disease stage IV-V. Patientunderwent CABG in October 2024. Following that he required renal replacement therapy. He had been receiving dialysis as an outpatient until 3 weeks ago when he was given a trial off of dialysis. He did well for approximately 1 week. He continues to produce urine. He states that since then however he has had worsening edema and has developed significant shortness of breath. He presented to the emergency department with hypertension, dyspnea, orthopnea. He has also had decreased appetite and some nausea. No chest pain or chest pressure. No fevers or chills. No cough. No dysuria. No hematuria. On presentation blood pressure was elevated at 225 systolic. Review of Systems Patient currently feels better with better blood pressure management. He is on room air. Denies shortness of breath at rest. He still has orthopnea. No chest pain or chest pressure. No palpitations. He has significant edema. He is above his dry weight by at least 10 pounds per his estimate. Continues to produce urine. No dysuria. No hematuria. No frequency. No diarrhea or constipation. He does have nausea on occasion with anorexia. Otherwise review of systems negative. Physical Exam Vitals and Measurements T: 36.9 C (Temporal Artery) HR: 84 (Apical) RR: 19 BP: 160/67 SpO2: 96% HT: 171 cm WT: 99.4 kg BMI:33.99 Weight Dosing Weight: 99.4 kg (02/18/25) Dosing Weight: 99.4 kg (02/17/25) General: No distress on room air HEENT: Mucosa was moist, sclera anicteric, extraocular muscles intact, JVD present Lungs: Bilateral expiratory wheezes Access: Right internal jugular tunneled dialysis catheter Heart: Regular with no murmurs rubs or gallops Abdomen: Positive bowel sounds, soft, no palpable masses Extremities: 2+ edema, pulses 2+ in all 4 extremities Skin: No rashes, normal turgor Lab Results 02/18 07:16 WBC: 7.4 Hgb: 11.5 L Hct: 34.6 L Platelet: 150 Neutrophil %: 69.0 Glucose Level: 85 Sodium Level: 144 Potassium Level: 4.2 BUN: 56.0 H Creatinine Lvl (s): 5.69 H 02/17 20:57 WBC: 7.2 Hgb: 11.9 L Hct: 35.6 L Platelet: 160 Neutrophil %: 66.1 Glucose Level: 170 H Sodium Level: 142 Potassium Level: 4.4 BUN: 58.0 H Creatinine Lvl (s): 5.70 H EKG EC02/18/25: SINUS RHYTHM ATRIAL PREMATURE COMPLEX PROBABLE LEFT ATRIAL ENLARGEMENT LVH WITH IVCD, LAD AND SECONDARY REPOL ABNRM ANTERIOR ST ELEVATION, PROBABLY DUE TO LVH BORDERLINE PROLONGED QT INTERVAL Electronic Signature: KENNETH AL DO 02/18/2025 02:27:43 Assessment/Plan 1. Stage IV chronic kidney disease with acute kidney injury: Patient had been dialysis dependent until 3 weeks ago. He has been given a trial off of renal replacement therapy. Unfortunately he has developed worsening fluid retention as well as symptoms of uremia including anorexia and nausea. He does have an access for dialysis. Will plan dialysis today for volume and clearance. He will likely require another treatment tomorrow. Will need to reestablish a schedule for dialysis as an outpatient. 2. Combined systolic and diastolic heart failure. Last ejection fraction was 45%. He does have diastolic dysfunction. He is now fluid overloaded. Echocardiogram is pending. Will manage volume with dialysis. As he will now be dialysis dependent, I would be in favor of the addition of an ARB to help manage his blood pressure. 3. Hypertensive urgency: This is mostly driven by fluid overload. Improved after dialysis. Currently on metoprolol. Will add losartan 25 mg daily. Problem List/Past Medical History Ongoing Allergy to environmental factors CAD IN [place] ARTERY Chronic knee 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 COPD (chronic obstructive pulmonary disease) Depression DM2 (diabetes mellitus, type 2) ESRD on dialysis GERD (gastroesophageal reflux disease) History of acute myocardial infarction Hoarseness, persistent Hypercholesteremia Hypertension Impotence Knee replacement Left carotid stenosis Long-term insulin use Nausea in adult patient NSTEMI (non-ST elevated myocardial infarction) Osteoarthritis Pain of right lower extremity Plantar fasciitis, left Prostate cancer screening S/P CABG x 4 Screening for colon cancer SMOKELESS TOBACCO USE Testosterone insufficiency Historical COPD exacerbation Post-operative infection Stress at home Procedure/Surgical History Cardiovascular stress testin08/04/21 Colonoscopy: 2012 Stent: 12/29/11 Manipulation of knee joint under anesthetic Arthroplasty of knee Arthroscopy of knee joint Cataract Cholecystectomy Hernia repair Medications Inpatient aspirin 81 mg oral delayed release tablet, 81 mg= 1 tab(s), Oral, qDay atorvastatin, 40 mg= 1 tab(s), Oral, qDay Betadine 10% topical solution Bicitra, 30 mL, Oral, PREOP pharm Bolus LR 1000 mL, 1000 mL, IV Bolus, PREOP pharm CeleBREX, 400 mg= 2 cap(s), Oral, PREOP pharm cloNIDine, 0.1 mg= 1 tab(s), Oral, q3h, PRN Cyklokapron IVPB Decadron, 10 mg= 1 mL, IV Push, AsDirected Dextrose 50% IV Push, 25 gram(s)= 50 mL, IV Push, AsDirected, PRN DuoNeb, 3 mL, Inhalation, q2hRT, PRN escitalopram, 5 mg= 1 tab(s), Oral, qDay ezetimibe, 10 mg= 1 tab(s), Oral, qDay guaiFENesin, 200 mg= 10 mL, Oral, q4h, PRN heparin 5000 units/mL injection, 5000 unit(s)= 1 mL, Subcutaneous, q8h HumaLOG 100 units/mL subcutaneous solution, Give 0-10 units/dose, Subcutaneous, TIDAC hydrALAZINE, 10 mg= 1 tab(s), Oral, q3h, PRN Kefzol labetalol, 10 mg= 2 mL, IV Push, q2h, PRN Lantus, 40 unit(s)= 0.4 mL, Subcutaneous (INT), qDay melatonin, 3 mg= 1 tab(s), Oral, qHS, PRN metoprolol tartrate 25 mg oral tablet, 25 mg= 1 tab(s), Oral, BIDM Miralax Powder Packet, 17 gram(s)= 15 mL, Oral, qDay, PRN Naropin 25 mg + Toradol 15 mg + EPINEPHrine 1 mg/mL injectable solution 0.3 mg + morphine 2.5 mg Naropin 25 mg + Toradol 15 mg + EPINEPHrine 1 mg/mL injectable solution 0.3 mg + morphine 2.5 mg OxyCONTIN, 10 mg= 1 tab(s), Oral, PREOP pharm pantoprazole, 40 mg= 1 tab(s), Oral, qDay Pepcid IV, 20 mg= 2 mL, IV Push, PREOP pharm Plavix, 75 mg= 1 tab(s), Oral, qDay Rybelsus 7 mg oral tablet, 7 mg, Oral, qDay Tylenol, 650 mg= 2 tab(s), Oral, q4h, PRN Tylenol, 650 mg= 2 tab(s), Oral, q4h, PRN Vitamin D3 25 mcg (1000 intl units) oral tablet, 25 mcg= 1 tab(s), Oral, Daily Zofran, 4 mg= 2 mL, IV Push, q4h, PRN Home acetaminophen, 650 mg= 2 tab(s), Oral, q4h, PRN acetaminophen-oxyCODONE 325 mg-5 mg oral tablet, 1 tab(s), Oral, q6hr, PRN, Unable to obtain Albuterol (Eqv-Ventolin HFA) 90 mcg/inh inhalation aerosol, 180 mcg= 2 inh, Inhalation, q6hr, PRN, 5 refills aspirin 81 mg oral delayed release tablet, 81 mg= 1 tab(s), Oral, qDay atorvastatin 40 mg oral tablet, 40 mg= 1 tab(s), Oral, qDay, 3 refills escitalopram 5 mg oral tablet, 5 mg= 1 tab(s), Oral, qDay, 3 refills ezetimibe 10 mg oral tablet, 10 mg= 1 tab(s), Oral, qDay, 3 refills FreeStyle Marysol 3+ Sensors, See Instructions, 11 refills metoprolol tartrate 25 mg oral tablet, 25 mg= 1 tab(s), Oral, BIDM, 3 refills midodrine 5 mg oral tablet, See Instructions, 3 refills Miralax Powder Packet, Oral, qDay, PRN ondansetron 4 mg oral tablet, disintegrating, 4 mg= 1 tab(s), Oral, q8h, PRN, 2 refills pantoprazole 40 mg oral enteric coated tablet, 40 mg= 1 tab(s), Oral, qDay, 3 refills Plavix 75 mg oral tablet, 75 mg= 1 tab(s), Oral, qDay, 2 refills Rybelsus 7 mg oral tablet, 7 mg= 1 tab(s), Oral, qDay, 3 refills Tresiba FlexTouch 100 units/mL 3 mL subcutaneous solution, 40 unit(s), Subcutaneous, qDay, 3 refills Vitamin D3 25 mcg (1000 intl units) oral capsule, 25 mcg= 1 cap(s), Oral, Daily Allergies Bee Stings lisinopril Cough Social History Smoking Status - 07/03/2018 Current some day smoker Alcohol - Low Risk, 07/03/2018 Use: Current. Type: Beer. Frequency: 1-2 times per year. Average drinks per day: 1. Maximum drinks per episode in last year: 1. Has alcohol use interfered with work or home life: No. Do you ever drink more than intended: No. Has anyone been hurt or at risk by your drinking: No. Ready to change: No.Concerns about alcohol use in household: No., 09/09/2022 Employment/School Status: Employed., 01/27/2020 Exercise Home/Environment Domestic Concerns: Denies. Living situation: Home/Independent. Primary Doorkeeper: self. Lives In: Single level home. Current Home Treatments Blood Glucose monitoring. Professional Skilled Services or Special Community Resources None. Financial concerns: No. Spouse Name: Palak. Marital Status: ., 09/09/2022 Nutrition/Health Type of diet: Regular. Appetite Good. Eating Difficulties None. Enteral Feedings No. TPN Feedings No. Skin Breakdown No. Caffeine intake amount: 4 servings daily coffee and carbonated beverages., 08/03/2021 Substance Abuse - Denies Substance Abuse, 07/02/2018 Use: Never., 07/09/2019 Tobacco Nicotine Use: Former smoker, quit more than 30 days ago. Type: Cigarettes. Number of years: 20. Stopped at age: 34 Years., 09/09/2022 Nicotine Use: chew. Type: Oral (Snuff, Chew). Number of years: 30., 09/09/2022 Family History Cancer: Mother, Father and Sister. Heart disease: Mother and Father. Heart disease: Brother. Health Status Family Member(s) Immunizations SARS-CoV-2 (COVID-19) Ad26 vaccine: 0.5 unknown unit (02/04/21) tetanus/diphth/pertuss (Tdap) adult/adol: 0.5 unknown unit (12/24/20) Digitally Signed by EDWARD GRANADOS MD on 02/18/2025 08:49 AM [id number] Respiratory therapy Hospital Progress note Respiratory Therapy Evaluation Entered On: 02/18/2025 6:40 EDT Performed On: 02/18/2025 6:40 EDT by Christian Bass RRT Respiratory Therapy Evaluation Chest X-Ray : Clear/none available/older than 3 days Respiratory Therapy Evaluation Score : 1 RT Evaluation Steps : Chart review completed, Assessment completed: RR, HR, Auscultation, Cough, Patient Interview completed Respiratory Evaluation Triage Score : (0-5) Freq: Q4RT prn RT Assessment [Frequency/Schedule] : Triage score 0-5, modify scheduled medications to Q4hRT PRN Christian Bass [facility] - 02/18/2025 6:42 EDT Pulmonary Status : Smoking history, quit >1 year ago Christian Bass [facility] - 02/18/2025 6:41 EDT Surgical Status : No surgery Respiratory Pattern (RT) : RR 10-20 BPM, Regular pattern Breath Sounds (RT) : Clear to auscultation Cough (RT) : Strong, non-productive Level of Activity : Ambulatory Mental Status : Alert, oriented and cooperative Christian Bass [facility] - 02/18/2025 6:40 EDT Digitally Signed by Christian Bass RRT on 02/18/2025 06:42 AM [facility] [id number] History and physical note [facility] Hospitalist History and Physical Date of Admission: patient is being admitted on February 18, 2025 Chief complaint: shortness of breath History of present illness: History is taken from talking with emergency room physician Dr. Al as well as talking with the patient. Patient has a past medical history of hypertension, diabetes mellitus type II, CKD stage IV, anxiety/depression, coronary artery disease status post CABG, Gerd, hyperlipidemia, COPD, carotid artery stenosis. Patient was last discharged from here in October 2024 when the patient was under the cardiothoracic surgery service for CABG. During the admission the patient was started on dialysis. Patient reports that he had been on dialysis until three weeks ago they decided to do a trial off of dialysis. Patient reports that since then he has had progressively worsening shortness of breath. He denies a cough. Has diffuse chest pain. Reports progressively worsening diffuse edema and swelling. Since presenting to the emergency room the patient has been afebrile, blood pressure as high as 246/94, 99% room air. The following labs and imaging were personally reviewed WBC 7.2 hemoglobin 11.9 platelet count 160 creatinine 5.70 does have chronic kidney disease otherwise no concerning finding on CMP Pro BNP 12,396 high-sensitivity troponin 180 chest x-ray showed pulmonary vascular prominence EKG personally reviewed and interpreted showed sinus rhythm In emergency room the patient was given a breathing treatment as well as 10 mg IV hydralazine. Past medical history: Knee replacement Allergy to environmental factors CAD IN [place] ARTERY COPD (chronic obstructive pulmonary disease) Chronic knee 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 DM2 (diabetes mellitus, type 2) Depression ESRD on dialysis GERD (gastroesophageal reflux disease) History of acute myocardial infarction Hoarseness, persistent Hypercholesteremia Hypertension Impotence Left carotid stenosis Long-term insulin use NSTEMI (non-ST elevated myocardial infarction) Nausea in adult patient Osteoarthritis Pain of right lower extremity Plantar fasciitis, left Prostate cancer screening S/P CABG x 4 SMOKELESS TOBACCO USE Screening for colon cancer Testosterone insufficiency Cardiovascular stress testin08/04/21 Colonoscopy: 2012 Stent: 12/29/11 Manipulation of knee joint under anesthetic Arthroplasty of knee Arthroscopy of knee joint Cataract Cholecystectomy Hernia repair Family history: Mother: Cancer; Heart disease Father: Cancer; Heart disease Sister: Cancer Brother: Heart disease Social history: Denies smoking cigarettes or alcohol consumption Medications: Home Medications (17) Active, medications were not verified by pharmacy at the time of this dictation acetaminophen 650 mg = 2 tab(s), PRN, Oral, q4h acetaminophen-oxyCODONE 325 mg-5 mg oral tablet 1 tab(s), PRN, Oral, q6hr Albuterol (Eqv-Ventolin HFA) 90 mcg/inh inhalation aerosol 180 mcg = 2 inh, PRN, Inhalation, q6hr aspirin 81 mg oral delayed release tablet 81 mg = 1 tab(s), Oral, qDay atorvastatin 40 mg oral tablet 40 mg = 1 tab(s), Oral, qDay escitalopram 5 mg oral tablet 5 mg = 1 tab(s), Oral, qDay ezetimibe 10 mg oral tablet 10 mg = 1 tab(s), Oral, qDay FreeStyle [place] 3+ Sensors See Instructions metoprolol tartrate 25 mg oral tablet 25 mg = 1 tab(s), Oral, BIDM midodrine 5 mg oral tablet See Instructions Miralax Powder Packet , PRN, Oral, qDay ondansetron 4 mg oral tablet, disintegrating 4 mg = 1 tab(s), PRN, Oral, q8h pantoprazole 40 mg oral enteric coated tablet 40 mg = 1 tab(s), Oral, qDay Plavix 75 mg oral tablet 75 mg = 1 tab(s), Oral, qDay Rybelsus 7 mg oral tablet 7 mg = 1 tab(s), Oral, qDay Tresiba FlexTouch 100 units/mL 3 mL subcutaneous solution 40 unit(s), Subcutaneous, qDay Vitamin D3 25 mcg (1000 intl units) oral capsule 25 mcg = 1 cap(s), Oral, Daily Allergies: Bee Stings lisinopril (Cough) Review of systems: See HPI for pertinent positives and negatives. All other review of systems have been reviewed and they are negative. Vitals Signs(Last 24 hrs)__Last Charted Minimum Maximum SBPH 213(FEB 18 01:46)H 203(FEB 17 17:26)H 215(FEB 18 00:24) DBPH 96(FEB 18 01:46)68(FEB 17 17:26)H 96(FEB 18 01:46) Physical examination: HEENT: No Pallor, No Icterus Cardiac: RRR, No murmur, elevated JVD Lungs: CTA, good air entry Abdomen: Soft Non tender Musculoskeletal: No joint pains or swelling Extremities: 3+ bilateral lower extremity edema, good pulses Neurological: Alert, no deficits Skin: No rash, no nodules Labs: WBC: 7.2 10^3/mcL (02/17/25 20:57:00) RBC: 4.37 10^6/mcL Low (02/17/25 20:57:00) Hgb: 11.9 G/dL Low (02/17/25 20:57:00) Hct: 35.6 % Low (02/17/25 20:57:00) MCV: 81.4 fL (02/17/25 20:57:00) MCH: 27.2 pg (02/17/25 20:57:00) MCHC: 33.4 G/dL (02/17/25 20:57:00) RDW: 15.1 % (02/17/25 20:57:00) Platelet: 160 10^3/mcL (02/17/25 20:57:00) MPV: 7.4 fL (02/17/25 20:57:00) Monocyte Distribution Width: 16.99 (02/17/25 20:57:00) Neutrophil %: 66.1 % (02/17/25 20:57:00) Lymphocyte %: 20.9 % (02/17/25 20:57:00) Monocyte %: 6.8 % (02/17/25 20:57:00) Eosinophil %: 5.6 % (02/17/25 20:57:00) Basophil %: 0.6 % (02/17/25 20:57:00) Neutrophil, Absolute: 4.8 10^3/mcL (02/17/25 20:57:00) Lymphocyte, Absolute: 1.5 10^3/mcL (02/17/25 20:57:00) Monocyte, Absolute: 0.5 10^3/mcL (02/17/25 20:57:00) Eosinophil, Absolute: 0.4 10^3/mcL (02/17/25 20:57:00) Basophil, Absolute: 0 10^3/mcL (02/17/25 20:57:00) Glucose Level: 170 mg/dL High (02/17/25 20:57:00) Sodium Level: 142 mEq/L (02/17/25 20:57:00) Potassium Level: 4.4 mEq/L (02/17/25 20:57:00) Chloride: 107 mEq/L (02/17/25 20:57:00) CO2: 27 mEq/L (02/17/25 20:57:00) Electrolyte Balance: 8 mEq/L (02/17/25 20:57:00) BUN: 58 mg/dL High (02/17/25 20:57:00) Creatinine Lvl (s): 5.7 mg/dL High (02/17/25 20:57:00) Estimated Glomerular Filtration Rate: 10 ml/min/1.73sqm (02/17/25 20:57:00) BUN/Creatinine Ratio: 10.2 ratio (02/17/25 20:57:00) Calcium Lvl: 9 mg/dL (02/17/25 20:57:00) Total Protein: 6.8 G/dL (02/17/25 20:57:00) Albumin Level: 3.6 G/dL (02/17/25 20:57:00) Globulin: 3.2 G/dL (02/17/25 20:57:00) A/G Ratio: 1.1 ratio (02/17/25 20:57:00) Bili Total: 0.2 mg/dL (02/17/25 20:57:00) Alk Phos: 71 U/L (02/17/25 20:57:00) AST/SGOT: 21 U/L (02/17/25 20:57:00) ALT/SGPT: 15 U/L (02/17/25 20:57:00) N-Terminal proBNP: 02151 pg/mL High (02/17/25 20:57:00) High Sensitivity Troponin I: 180 ng/L High (02/18/25 00:24:00) High Sensitivity Troponin I: 98 ng/L High (02/17/25 20:57:00) No qualifying data available. Assessment and plan: Patient presents on February 18, 2025 due to having progressively worsening shortness of breath. Hypertensive emergency. Patient does require two midnight hospital stay due to having hypertensive emergency with current blood pressure blood pressure 246/94 and the patient has an elevated troponin. Continue home medications. As needed hydralazine, labetalol and clonidine. Patient will be on stepdown with monitor. Pending clinical course will require ICU care. Contributing is heart failure exacerbation and the patient also has a history of coronary artery disease status post CABG. Patient cannot be treated outpatient due to high risk for stroke. Acute on chronic systolic heart failure exacerbation with severe volume overload. Will get an echocardiogram. Will consult nephrology for dialysis. Chronic anemia secondary chronic kidney disease. Stable Acute decompensation of chronic kidney disease stage IV. They did stop dialysis three weeks ago. Patient now has severe volume overload. Will consult nephrology for dialysis. Elevated troponin secondary to hypertensive emergency. Patient will be on step down with monitor. Will get a repeat troponin. Diabetes mellitus type II. Continue home medications. Sliding scale insulin. Anxiety/depression. Continue home medications Coronary artery disease status post CABG. Will get an echocardiogram Gerd. Continue Protonix Hyperlipidemia. Continue home medications Chronic COPD not in exacerbation Prophylaxis subcu heparin Code status full code Digitally Signed by ALEJANDRO JERNIGAN MD on 02/18/2025 02:56 AM [id number]* Exam Date Time Procedure Performing Provider Status 02/17/25 8:47 PM XR Chest 1 View ALEX ORTIZ MD; A [facility] (Verified) [id number] ORIGINAL EXAMINATION: ONE XRAY VIEW OF THE CHEST 02/17/2025 8:47 pm COMPARISON: Radiograph of the chest December 19, 2024 HISTORY: ORDERING SYSTEM PROVIDED HISTORY: Reason for Exam: dyspnea FINDINGS: Cardiomediastinal silhouette is unchanged in size. Sternotomy postsurgical changes. Right-sided catheter unchanged. Costophrenic angles are sharp. No radiographic pneumothorax. No focal consolidation. Pulmonary vascular prominence. Osseous structures grossly unchanged. IMPRESSION: Pulmonary vascular prominence. Interpreted by: Alex Ortiz Preliminary Report By: Alex Ortiz Electronically signed By Alex Ortiz Dictated Date: 02/17/2025 8:51:29 PM Prelim Date: 02/17/2025 8:52:12 PM Sign Date: 02/17/2025 8:52:12 PM Ordering Provider: EMILY HERRON [id number] Note* Exam Date Time Procedure Performing Provider Status 02/17/25 8:41 PM EKG (ED) - CV KENNETH AL DO; Zeynep h (Verified) ECG Final Report SINUS RHYTHM ATRIAL PREMATURE COMPLEX PROBABLE LEFT ATRIAL ENLARGEMENT LVH WITH IVCD, LAD AND SECONDARY REPOL ABNRM ANTERIOR ST ELEVATION, PROBABLY DUE TO LVH BORDERLINE PROLONGED QT INTERVAL Electronic Signature: KENNETH AL DO 02/18/2025 02:27:43 [id number] Evaluation note* Diagnosis Onset Date Resolution Status Admit Date ESRD (end stage renal diseas e) on dialysis acute February 06, 2025 8:17am [facility] Work Phone: [phone]) 989-593303-13-2025 Evaluation note* Diagnosis Onset Date Resolution Status Admit Date ESRD (end stage renal diseas e) on dialysis chronic February 06, 2025 8:17am ESRD (end stage renal diseas e) on dialysis chronic March 03, 2025 3:55pm [facility] Work Phone: [phone]) 947-464703-13-2025 Evaluation note* Diagnosis Onset Date Resolution Status Admit Date ESRD (end stage renal diseas e) on dialysis chronic February 06, 2025 8:17am ESRD (end stage renal diseas e) on dialysis chronic March 03, 2025 3:55pm ESRD (end stage renal diseas e) on dialysis chronic April 14, 2025 1 2:13pm [facility] Work Phone: [phone]) 280-466201-23-2025 Note* Exam Date Time Procedure Performing Provider Status 12/19/24 9:46 AM XR Chest 2 Views ROD BOWMAN MD; Aut h (Verified) [id number] ORIGINAL EXAMINATION: TWO XRAY VIEWS OF THE CHEST TECHNIQUE: CHEST AP/PA and LATERAL COMPARISON: 11/22/2024 HISTORY: ORDERING SYSTEM PROVIDED HISTORY: Reason for Exam: SOB FINDINGS: Sternotomy wires. Right internal jugular central line is stable. Coronary stents. Epicardial leads. The heart is not enlarged. The mediastinal silhouette is unremarkable. No consolidation. Small left pleural effusion with adjacent atelectasis similar to prior. No significant right pleural effusion. No pneumothorax. No vascular congestion. No aggressive osseous lesions. IMPRESSION: Small left pleural effusion similar or decreased from the earlier study. This may be entirely pleural thickening and scarring.. I have personally reviewed the images of this examination and agree with the resident's findings and interpretation. Interpreted by: Rod Bowman MD Preliminary Report By: Yoni Mendiola MD Electronically signed By Rod Bowman MD Dictated Date: 12/19/2024 4:06:47 PM Prelim Date: 12/19/2024 4:11:06 PM Sign Date: 12/19/2024 4:11:06 PM Ordering Provider: [facility]12-17-2024 Hospital Discharge instructions Patient Education 11/12/2024 11:03:36 Eating Plan for Dialysis Eating Plan for Dialysis Dialysis is a procedure that is done when the kidneys have stopped working properly (kidney failure). During dialysis, wastes, salt, and extra water are removed from the blood, and the levels of certain minerals in the blood are maintained. If you are undergoing dialysis, it is important to pay careful attention to what you eat. Between dialysis sessions, certain nutrients and wastes can build upin your blood and cause you to get sick. Even though nutrients, such as carbohydrates, fats, vitamins, and minerals, are an important part of a healthy diet, you may need to limit your intake of certain nutrients when you are on dialysis. When you are on dialysis, it is important that you work with your health care provider or a diet and nutrition manager (dietitian) to help you make an eating plan that meets your specific needs. What are tips for following this plan? Reading food labels Check food labels for the amount of: ?Potassium. This is found in milk, fruits, and vegetables. ?Phosphorus. This is found in milk, cheese, beans, nuts, and carbonated beverages. ?Sodium. Sodium content is high in processed and cured meats, ready-made frozen meals, canned vegetables, and salty snack foods. Try to find foods that are low in potassium, phosphorus, and sodium. Look for foods that are labeled sodium free, reduced sodium, or low sodium. Shopping Do not buy whole-grain and high-fiber foods because they contain high amounts of phosphorus. Do not buy or use salt substitutes because they contain potassium. Do not buy processed foods. These are usually high in sodium and phosphorus. Cooking Drain all fluid from cooked vegetables and canned fruits before eating them. Cut potatoes into small pieces and boil them in unsalted water before you eat them. This can help to remove some potassium from the potato. To add flavor, try using herbs and spices that do not contain sodium. Meal planning Most people on dialysis should try to eat: ?6 11 servings of grains each day. One serving is equal to 1 slice of bread or cup of cooked rice or pasta. ?2 3 servings of low-potassium vegetables each day. One serving is equal to cup. ?2 3 servings of low-potassium fruits each day. One serving is equal to cup. ?High-quality proteins, such as meat, poultry, fish, and eggs. Talk with your health care provider or dietitian about the right amount and type of protein to include in your eating plan. ? cup of dairy each day. Avoid foods that are high in sodium and phosphorus. Foods that generally are very salty will be high in sodium, and foods that are high in fiber or starch may be high in phosphorus. General information Follow your health care provider's instructions to restrict your fluid intake. You may be told to: ?Write down what you drink and any foods you eat that are made mostly from water, such as gelatin and soups. ?Drink from small cups to help control how much you drink. Take vitamin and mineral supplements only as told by your health care provider. Take ahym-smn-wjyrnrp and prescription medicines only as told by your health care provider. ?Your health care provider may recommend an rhun-smj-sizoajd medicine that binds phosphorus, such as an antacid medicine that contains calcium carbonate. What foods can I eat? Fruits Apples. Fresh or frozen berries. Fresh or canned pears, peaches, and pineapple. Grapes. Plums. Vegetables Fresh or frozen broccoli, carrots, and green beans. Cabbage. Cauliflower. Celery. Cucumbers. Eggplant. Radishes. Zucchini. Grains White bread. White rice. Cooked cereal. Unsalted popcorn. Tortillas. Pasta. Meats and other proteins Fresh or frozen beef, pork, chicken, and fish. Eggs. Dairy Cream cheese. Heavy cream. Ricotta cheese. Beverages Apple cider. Cranberry juice. Grape juice. Lemonade. Black coffee. Rice milk (that is not enriched or fortified). Condiments Herbs. Spices. Jam and jelly. Honey. Sweets and desserts Sherbet. Cakes. Cookies. Fats and oils Avera oil, canola oil, and safflower oil. Other Non-dairy creamer. Non-dairy whipped topping. Homemade broth without salt. The items listed above may not be a complete list of foods and beverages you can eat. Contact your dietitian for more options. What foods are not recommended? Fruits Star fruit. Bananas. Oranges. Kiwi. Nectarines. Prunes. Melon. Dried fruit. Avocado. Vegetables Potatoes. Beets. Tomatoes. Winter squash and pumpkin. Asparagus. Spinach. Parsnips. Grains Whole-grain bread. Whole-grain pasta. High-fiber cereal. Meats and other proteins Canned, smoked, and cured meats. Packaged luncheon meat. Sardines. Nuts and seeds. Peanut butter. Beans and legumes. Dairy Milk. Buttermilk. Yogurt. Cheese and cottage cheese. Processed cheese spreads. Beverages [place] juice. Prune juice. Carbonated soft drinks. Condiments Salt. Salt substitutes. Soy sauce. Sweets and desserts Ice cream. Chocolate. Candied nuts. Fats and oils Butter. Margarine. Other Ready-made frozen meals. Canned soups. The items listed above may not be a complete list of foods and beverages you should avoid. Contact your dietitian for more information. Summary Dialysis is a procedure that is done when the kidneys have stopped working properly (kidney failure). If you are undergoing dialysis, it is important to pay careful attention to what you eat. Between dialysis sessions, certain nutrients and wastes can build up in your blood and cause you to get sick. Your dietitian will help you design an eating plan that is specific to your needs. Avoid foods that are high in sodium and phosphorus. Restrict fluids as told by your health care provider or dietitian. This information is not intended to replace advice given to you by your health care provider. Make sure you discuss any questions you have with your health care provider. Document Released: 08/10/2005 Document Revised: 04/01/2020 Document Reviewed: 11/14/2018 [employer] Patient Education 2020 [email or web address]. 11/12/2024 04:40:42 8- Incision Care (09/2022)(CUSTOM) Incision Care General Information about how to care for your Incision Always follow your surgeon s specific recommendations about incision care exactly. Keep incision clean and dry. Do not put salves, ointments or powder on the incision unless your surgeon has instructed you to. If you have a dressing over your incision, change it as directed by your healthcare professional Avoid touching your incision. Hands carry germs that can cause infections. When your surgeon gives you permission to shower, gently wash, DO NOT RUB your incision, with mild soap and water. You can use liquid or bar soap. Use a new/clean washcloth and towel on your incisionevery day. Avoid irritation to the incision. Wear loose fitting clothing. Do not remove the tape strips (steri strips) until told to do so. They will fall off on their own. Do not expose your incision to sunlight. After washing your hands, check your incision daily to make sure it is healing normally. The incision is staying together There is no drainage or only small amounts of clear or bloody drainage The skin around the incision may be slightly red which goes away over time You may notice some soreness, tenderness, tingling, numbness, bruising and itching around the site. Notify your Surgeon if: Your incision shows signs of an infection such as skin very painful, red, warm and/or swollen around the incision, Drainage that is foul smelling or looks like pus or If you have an elevated temperature with the above symptoms The incision begins to come apart You have large amounts of blood or fluid oozing from the incision. Make sure you have a follow-up appointment with your surgeon. Call to reschedule if you are unable to make the appointment time that was scheduled for you. Instructions: Wash your chest incision first. Wash your arm incision second. Wash your leg incisions last. Clean the rest of your body after your incisions are washed. Rinse your body well before leaving the shower. Dry gently with a clean towel. Do not use creams, lotions, powder, or salves on incisions. Please dress in clean, loose-fitting clothes. Incision Care Video Document Released: 11/13/2006 Document Revised: 10/30/2013 Document Reviewed: 11/14/2014 [facility] Patient Information 2015 [facility], [facility]. This information is not intended to replace advicegiven to you by your health care provider. Make sure you discuss any questions you have with your health care provider. 11/12/2024 04:40:11 Form - Daily Weight Record Daily Weight Record It is important to weigh yourself daily. To do this: Make sure you use a reliable scale. Use the same scale each day. Keep this daily weight chart near your scale. Weigh yourself each morning at the same time. Before weighing yourself: ?Take off your shoes. ?Make sure you are wearing the same amount of clothing each day. Write down your weight in the spaces on the form. Compare today's weight to yesterday's weight. Bring this form with you to your follow-up visits with your health care provider. Call your health care provider if you have concerns about your weight, including rapid weight gain or loss. Date: Weight: Date: Weight: Date: Weight: Date: Weight: Date: Weight: Date: Weight: Date: Weight: Date: Weight: Date: Weight: Date: Weight: Date: Weight: Date: Weight: Date: Weight: Date: Weight: Date: Weight: Date: Weight: Date: Weight: Date: Weight: Date: Weight: Date: Weight: Date: Weight: Date: Weight: Date: Weight: Date: Weight: Date: Weight: Date: Weight: Date: Weight: Date: Weight: Date: Weight: Date: Weight: Date: Weight: Date: Weight: Date: Weight: Date: Weight: Date: Weight: Date: Weight: Date: Weight: Date: Weight: Date: Weight: Date: Weight: Date: Weight: Date: Weight: Date: Weight: Date: Weight: Date: Weight: Date: Weight: Date: Weight: Date: Weight: Date: Weight: Date: Weight: This information is not intended to replace advice given to you by your health care provider. Make sure you discuss any questions you have with your health care provider. Document Released: 01/25/2008 Document Revised: 11/12/2018 Document Reviewed: 11/12/2018 [employer] Patient Education 2020 [employer] 11/12/2024 04:40:04 Diabetes Mellitus and Nutrition, Adult Diabetes Mellitus and Nutrition, Adult When you have diabetes (diabetes mellitus), it is very important to have healthy eating habits because your blood sugar (glucose) levels are greatly affected by what you eat and drink. Eating healthyfoods in the appropriate amounts, at about the same times every day, can help you: Control your blood glucose. Lower your risk of heart disease. Improve your blood pressure. Reach or maintain a healthy weight. Every person with diabetes is different, and each person has different needs for a meal plan. Your health care provider may recommend that you work with a diet and nutrition manager (dietitian) tomake a meal plan that is best for you. Your meal plan may vary depending on factors such as: The calories you need. The medicines you take. Your weight. Your blood glucose, blood pressure, and cholesterol levels. Your activity level. Other health conditions you have, such as heart or kidney disease. How do carbohydrates affect me? Carbohydrates, also called carbs, affect your blood glucose level more than any other type of food.Eating carbs naturally raises the amount of glucose in your blood. Carb counting is a method for keeping track of how many carbs you eat. Counting carbs is important to keep your blood glucose at a healthy level, especially if you use insulin or take certain oral diabetes medicines. It is important to know how many carbs you can safely have in each meal. This is different for every person. Your dietitian can help you calculate how many carbs you should have at each meal and for each snack. Foods that contain carbs include: Bread, cereal, rice, pasta, and crackers. Potatoes and corn. Peas, beans, and lentils. Milk and yogurt. Fruit and juice. Desserts, such as cakes, cookies, ice cream, and candy. How does alcohol affect me? Alcohol can cause a sudden decrease in blood glucose (hypoglycemia), especially if you use insulin or take certain oral diabetes medicines. Hypoglycemia can be a life-threatening condition. Symptoms of hypoglycemia (sleepiness, dizziness, and confusion) are similar to symptoms of having too much alcohol. If your health care provider says that alcohol is safe for you, follow these guidelines: Limit alcohol intake to no more than 1 drink per day for non women and 2 drinks per day formen. One drink equals 12 oz of beer, 5 oz of wine, or 1 oz of hard liquor. Do not drink on an empty stomach. Keep yourself hydrated with water, diet soda, or unsweetened iced tea. Keep in mind that regular soda, juice, and other mixers may contain a lot of sugar and must be counted as carbs. What are tips for following this plan? Reading food labels Start by checking the serving size on the Nutrition Facts label of packaged foods and drinks. Theamount of calories, carbs, fats, and other nutrients listed on the label is based on one serving ofthe item. Many items contain more than one serving per package. Check the total grams (g) of carbs in one serving. You can calculate the number of servings of carbs in one serving by dividing the total carbs by 15. For example, if a food has 30 g of total carbs, it would be equal to 2 servings of carbs. Check the number of grams (g) of saturated and trans fats in one serving. Choose foods that have low or no amount of these fats. Check the number of milligrams (mg) of salt (sodium) in one serving. Most people should limit totalsodium intake to less than 2,300 mg per day. Always check the nutrition information of foods labeled as low-fat or nonfat. These foods may be higher in added sugar or refined carbs and should be avoided. Talk to your dietitian to identify your daily goals for nutrients listed on the label. Shopping Avoid buying canned, premade, or processed foods. These foods tend to be high in fat, sodium, and added sugar. Shop around the outside edge of the grocery store. This includes fresh fruits and vegetables, bulk grains, fresh meats, and fresh dairy. Cooking Use low-heat cooking methods, such as baking, instead of high-heat cooking methods like deep frying. Cook using healthy oils, such as olive, canola, or sunflower oil. Avoid cooking with butter, cream, or high-fat meats. Meal planning Eat meals and snacks regularly, preferably at the same times every day. Avoid going long periods oftime without eating. Eat foods high in fiber, such as fresh fruits, vegetables, beans, and whole grains. Talk to your dietitian about how many servings of carbs you can eat at each meal. Eat 4 6 ounces (oz) of lean protein each day, such as lean meat, chicken, fish, eggs, or tofu. One oz of lean protein is equal to: ?1 oz of meat, chicken, or fish. ?1 egg. ? cup of tofu. Eat some foods each day that contain healthy fats, such as avocado, nuts, seeds, and fish. Lifestyle Check your blood glucose regularly. Exercise regularly as told by your health care provider. This may include: ?150 minutes of moderate-intensity or vigorous-intensity exercise each week. This could be brisk walking, biking, or water aerobics. ?Stretching and doing strength exercises, such as yoga or weightlifting, at least 2 times a week. Take medicines as told by your health care provider. Do not use any products that contain nicotine or tobacco, such as cigarettes and e-cigarettes. If you need help quitting, ask your health care provider. Work with a counselor or staff development educator to identify strategies to manage stress and any emotional and social challenges. Questions to ask a health care provider Do I need to meet with a staff development educator? Do I need to meet with a dietitian? What number can I call if I have questions? When are the best times to check my blood glucose? Where to find more information: [place] [employer]: diabetes.org Academy of Nutrition and Dietetics: www.eatright.org National [place] of Diabetes and Digestive and Kidney Diseases (NIH): www.niddk.nih.gov Summary A healthy meal plan will help you control your blood glucose and maintain a healthy lifestyle. Working with a diet and nutrition manager (dietitian) can help you make a meal plan that is bestfor you. Keep in mind that carbohydrates (carbs) and alcohol have immediate effects on your blood glucose levels. It is important to count carbs and to use alcohol carefully. This information is not intended to replace advice given to you by your health care provider. Make sure you discuss any questions you have with your health care provider. Document Released: 08/10/2006 Document Revised: 10/26/2018 Document Reviewed: 12/18/2017 [employer] Patient Education 2020 [email or web address]. 11/12/2024 04:39:50 Eating Plan for Dialysis, Uxuu-dh-[id number] Eating Plan for Dialysis Dialysis is a treatment that cleans your blood. It is used when your kidneys are damaged. When you need dialysis, you should watch what you eat. This is because some nutrients can build up in your blood between treatments and make you sick. Your doctor or diet specialist (dietitian) will: Tell you what nutrients you should include or avoid. Tell you how much of these nutrients you should get each day. Help you plan meals. Tell you how much to drink each day. What are tips for following this plan? Reading food labels Check food labels for: ?Potassium. This is found in milk, fruits, and vegetables. ?Phosphorus. This is found in milk, cheese, beans, nuts, and carbonated beverages. ?Salt (sodium). This is in processed meats, cured meats, ready-made frozen meals, canned vegetables, and salty snack foods. Try to find foods that are low in potassium, phosphorus, and sodium. Look for foods that are labeled sodium free, reduced sodium, or low sodium. Shopping Do not buy whole-grain and high-fiber foods. Do not buy or use salt substitutes. Do not buy processed foods. Cooking Drain all fluid from cooked vegetables and canned fruits before you eat them. Before you cook potatoes, cut them into small pieces. Then boil them in unsalted water. Try using herbs and spices that do not contain sodium to add flavor. Meal planning Most people on dialysis should try to eat: 6-11 servings of grains each day. One serving is equal to 1 slice of bread or cup of cooked rice orpasta. 2 3 servings of low-potassium vegetables each day. One serving is equal to cup. 2 3 servings of low-potassium fruits each day. One serving is equal to cup. Protein, such as meat, poultry, fish, and eggs. Talk with your doctor or dietitian about the right amount and type of protein to eat. cup of dairy each day. General information Follow your doctor's instructions about how much to drink. You may be told to: ?Write down what you drink. ?Write down the foods you eat that are made mostly from water, such as gelatin and soups. ?Drink from small cups. Take vitamin and mineral supplements only as told by your doctor. Take pxwb-jwq-sglnlzf and prescription medicines only as told by your doctor. What foods can I eat? Fruits Apples. Fresh or frozen berries. Fresh or canned pears, peaches, and pineapple. Grapes. Plums. Vegetables Fresh or frozen broccoli, carrots, and green beans. Cabbage. Cauliflower. Celery. Cucumbers. Eggplant. Radishes. Zucchini. Grains White bread. White rice. Cooked cereal. Unsalted popcorn. Tortillas. Pasta. Meats and other proteins Fresh or frozen beef, pork, chicken, and fish. Eggs. Dairy Cream cheese. Heavy cream. Ricotta cheese. Beverages Apple cider. Cranberry juice. Grape juice. Lemonade. Black coffee. Rice milk (that is not enriched or fortified). Seasonings and condiments Herbs. Spices. Jam and jelly. Honey. Sweets and desserts Sherbet. Cakes. Cookies. Fats and oils Avera oil, canola oil, and safflower oil. Other foods Non-dairy creamer. Non-dairy whipped topping. Homemade broth without salt. The items listed above may not be a complete list of foods and beverages you can eat. Contact your dietitian for more options. What foods should I avoid? Fruits Star fruit. Bananas. Oranges. Kiwi. Nectarines. Prunes. Melon. Dried fruit. Avocado. Vegetables Potatoes. Beets. Tomatoes. Winter squash and pumpkin. Asparagus. Spinach. Parsnips. Grains Whole-grain bread. Whole-grain pasta. High-fiber cereal. Meats and other proteins Canned, smoked, and cured meats. Packaged lunch meat. Sardines. Nuts and seeds. Peanut butter. Beans and legumes. Dairy Milk. Buttermilk. Yogurt. Cheese and cottage cheese. Processed cheese spreads. Beverages [place] juice. Prune juice. Carbonated soft drinks. Seasonings and condiments Salt. Salt substitutes. Soy sauce. Sweets and desserts Ice cream. Chocolate. Candied nuts. Fats and oils Butter. Margarine. Other foods Ready-made frozen meals. Canned soups. The items listed above may not be a complete list of foods and beverages you should avoid. Contact your dietitian for more information. Summary If you are having dialysis, it is important to watch what you eat. Certain nutrients and wastes canbuild up in your blood and cause you to get sick. Your dietitian will help you make an eating plan that meets your needs. Avoid foods that are high in potassium, salt (sodium), and phosphorus. Restrict fluids as told by your doctor or dietitian. This information is not intended to replace advice given to you by your health care provider. Make sure you discuss any questions you have with your health care provider. Document Released: 05/14/2013 Document Revised: 01/30/2019 Document Reviewed: 11/14/2018 [employer] Patient Education 2020 [email or web address]. 11/12/2024 04:39:47 Dialysis Dialysis Dialysis is a procedure that is done when the kidneys have stopped working properly (kidney failure). It may also be done earlier if it may help improve symptoms. During dialysis, wastes, salt, and extra water are removed from the blood, and the levels of certain minerals in the blood are maintained. Dialysis is done in sessions which are continued until the kidneys get better. If the kidneys cannot get better, such as in end-stage kidney disease, dialysis is continued for life or until you receive a new kidney from a donor (kidney transplant). There are two types of dialysis: hemodialysis and peritoneal dialysis. What is hemodialysis? Hemodialysis is when a machine called a dialyzer is used to filter the blood. Before starting hemodialysis, you will have surgery to create a site where blood can be removed from the body and returned to the body (vascular access). There are three types of vascular accesses: Arteriovenous fistula. This type of access is created when an artery and a vein (usually in the arm) are connected during surgery. The arteriovenous fistula usually takes 1 6 months to develop after surgery. It may last longer than the other types of vascular accesses and is less likely to become infected or cause blood clots. Arteriovenous graft. This type of access is created when an artery and a vein in the arm are connected during surgery with a tube. An arteriovenous graft can usually be used within 2 3 weeks of surgery. A venous catheter. To create this type of access, a thin tube (catheter) is placed in a large vein in your neck, chest, or groin. A venous catheter can be used right away. It is usually used as a temporary access when dialysis needs to begin immediately. During hemodialysis, blood leaves your body through your access site. It travels through a tube to the dialyzer, where it is filtered. The blood then returns to your body through another tube. Hemodialysis is usually done at a hospital or dialysis center three times a week. Visits last about3 5 hours. With special training, it may also be done at home with the help of another person. What is peritoneal dialysis? Peritoneal dialysis is when the thin lining of the abdomen (peritoneum) and a fluid called dialysate are used to filter the blood. Before starting peritoneal dialysis, you will have surgery to place a catheter in your abdomen. The catheter will be used to transfer dialysate to and from your abdomen. At the start of a session, your abdomen is filled with dialysate. During the session, wastes, salt,and extra water in the blood pass through the peritoneum and into the dialysate. The dialysate is drained from the body at the end of the session. The process of filling and draining the dialysate iscalled an exchange. Exchanges are repeated until you have used up all the dialysate for the day. You may do peritoneal dialysis at home or at almost any other location. It is done every day. You may need up to five exchanges a day. Each exchange takes about 30 40 minutes. The amount of time the dialysate is in your body between exchanges is called a dwell. The dwell usually lasts 1.5 3 hours and can vary with each person. You may choose to do exchanges at night while you sleep, using a machine called a cycler. Which type of dialysis should I choose? Both types of dialysis have advantages and disadvantages. Talk with your health care provider aboutwhich type of dialysis is best for you. Your lifestyle, preferences, and medical condition should be considered. In some cases, only one type of dialysis can be chosen. Advantages of hemodialysis It is done less often than peritoneal dialysis. Someone else can do the dialysis for you. If you go to a dialysis center: ?Your health care provider can recognize any problems you may be having. ?You can interact with others who are having dialysis. This can provide you with emotional support. Disadvantages of hemodialysis Hemodialysis may cause cramps and low blood pressure. It may leave you feeling tired on the days you have the treatment. If you go to a dialysis center, you will need to make weekly appointments and work around the center s schedule. You will need to take extra care when traveling. If you usually get treatment in a dialysis center,you will need to arrange to visit a dialysis center near your destination. If you are having treatments at home, you will need to take the dialyzer with you when traveling. There are more eating restrictions than with peritoneal dialysis. Advantages of peritoneal dialysis It is less likely than hemodialysis to cause cramps and low blood pressure. There are fewer eating restrictions than with hemodialysis. You may do exchanges on your own wherever you are, including when you travel. Disadvantages of peritoneal dialysis It is done more often than hemodialysis. Doing peritoneal dialysis requires you to have a good use (dexterity) of your hands. You must also be able to lift bags. You must learn how to make your equipment free of germs (sterilization techniques). You will need to use these techniques every day to prevent infection. What changes will I need to make to my diet during dialysis? Both types of dialysis require you to make some changes to your diet. For example, you will need tolimit your intake of foods that contain a lot of phosphorus and potassium. You will also need to limit your fluid intake. A diet and nutrition manager (dietitian) can help you make a meal plan that can help improve your dialysis and your health. What should I expect when starting dialysis? Adjusting to the dialysis treatment, schedule, and diet can take some time. You may need to stop working and may not be able to do some of your normal activities. You may feel anxious or depressed when starting dialysis. Over time, many people feel better overall because of dialysis. You may be able to return to work after making some changes, such as reducing work intensity. Where to find more information National Kidney Foundation: www.kidney.org [place] [employer]: www.aakp.org [employer]: www.kidneyfund.org Summary During dialysis, wastes, salt, and extra water are removed from the blood, and the levels of certain minerals in the blood are maintained. There are two types of dialysis: hemodialysis and peritonealdialysis. Hemodialysis is when a machine called a dialyzer is used to filter the blood. Hemodialysis is usually done by a health care provider at a hospital or dialysis center three timesa week. Peritoneal dialysis is when the peritoneum is used as a filter. You may do peritoneal dialysis at home or at almost any other location. Both types of dialysis have advantages and disadvantages. Talk with your health care provider aboutwhich type of dialysis is best for you. This information is not intended to replace advice given to you by your health care provider. Make sure you discuss any questions you have with your health care provider. Document Released: 02/03/2004 Document Revised: 03/31/2020 Document Reviewed: 01/09/2018 [employer] Patient Education 2020 [email or web address]. 11/12/2024 04:39:44 Central Line Dialysis Access Placement, Care After Central Line Dialysis Access Placement, Care After This sheet gives you information about how to care for yourself after your procedure. Your health care provider may also give you more specific instructions. If you have problems or questions, contact your health care provider. What can I expect after the procedure? After the procedure, it is common to have: Mild pain or discomfort. Mild redness, swelling, or bruising around your incision. A small amount of blood or clear fluid coming from your incision. Follow these instructions at home: Incision care Follow instructions from your health care provider about how to take care of your incision. Make sure you: ?Wash your hands with soap and water before you change your bandage (dressing). If soap and water are not available, use hand lehr tender. ?Change your dressing as told by your health care provider. ?Leave stitches (sutures) in place. Check your incision area every day for signs of infection. Check for: ?More redness, swelling, or pain. ?More fluid or blood. ?Warmth. ?Pus or a bad smell. If directed, put heat on the catheter site as often as told by your health care provider. Use the heat source that your health care provider recommends, such as a moist heat pack or a heating pad. ?Place a towel between your skin and the heat source. ?Leave the heat on for 20 30 minutes. ?Remove the heat if your skin turns bright red. This is especially important if you are unable to feel pain, heat, or cold. You may have a greater risk of getting burned. If directed, put ice on the catheter site: ?Put ice in a plastic bag. ?Place a towel between your skin and the bag. ?Leave the ice on for 20 minutes, 2 3 times a day. Medicines Take udld-xqx-rcfhqqm and prescription medicines only as told by your health care provider. If you were prescribed an antibiotic medicine, use it as told by your health care provider. Do not stop using the antibiotic even if you start to feel better. Activity Return to your normal activities as told by your health care provider. Ask your health care provider what activities are safe for you. Do not lift anything that is heavier than 10 lb (4.5 kg) until your health care provider says that this is safe. Driving Do not drive for 24 hours if you were given a medicine to help you relax (sedative) during your procedure. Do not drive or use heavy machinery while taking prescription pain medicine. Lifestyle Limit alcohol intake to no more than 1 drink a day for non women and 2 drinks a day for men. One drink equals 12 oz of beer, 5 oz of wine, or 1 oz of hard liquor. Do not use any products that contain nicotine or tobacco, such as cigarettes and e-cigarettes. If you need help quitting, ask your health care provider. General instructions Do not take baths or showers, swim, or use a hot tub until your health care provider approves. You may only be allowed to take sponge baths for bathing. Wear compression stockings as told by your health care provider. These stockings help to prevent blood clots and reduce swelling in your legs. Follow instructions from your health care provider about eating or drinking restrictions. Keep all follow-up visits as told by your health care provider. This is important. Contact a health care provider if: Your catheter gets pulled out of place. Your catheter site becomes itchy. You develop a rash around your catheter site. You have more redness, swelling, or pain around your incision. You have more fluid or blood coming from your incision. Your incision area feels warm to the touch. You have pus or a bad smell coming from your incision. You have a fever. Get help right away if: You become light-headed or dizzy. You faint. You have difficulty breathing. Your catheter gets pulled out completely. This information is not intended to replace advice given to you by your health care provider. Make sure you discuss any questions you have with your health care provider. Document Released: 06/27/2005 Document Revised: 10/26/2018 Document Reviewed: 08/07/2017 [employer] Patient Education 2020 [email or web address]. 11/12/2024 04:39:31 8- Open Heart Surgery (Bypass or Valve) 12/2019(CUSTOM) OPEN HEART SURGERY (Bypass or Valve Surgery) General Guidelines for Care After Surgery Please read the instructions below and refer to it during the next few weeks. Recovering from surgery is different for everyone. Some people feel great after 3 or 4 weeks and others take longer depending on their condition before the surgery. These are general guidelines on how to care for yourself but always follow your doctor s instructions. If you have questions or problems after you go home, please call your doctor. MEDICINES You have the list of medicine you need to take at home. Be sure you understand this list and keep acopy with you at all times. Never add or stop medicine unless you check with your doctor first. Call the doctor if you have any of the following problems: If you start throwing up or have stomach pain or diarrhea If you feel dizzy or lightheaded when you stand up If you are confused or have trouble walking If you feel like your heart is racing and beating fast or if you feel like it is beating too slow If you get a rash If you notice bleeding or lots of bruising If you are taking a blood thinner such as warfarin after having valve surgery, please read the handout that has been given to you by the nurse. PAIN AFTER SURGERY You might feel some pain after your heart surgery. Please take your pain medicine if you need it following the directions on the bottle. If your pain becomes worse or if you are having trouble breathing, call your surgeon. As you heal and the pain begins to go away, take your pain medicine less often Pain medicine will sometimes cause you to become constipated. It is OK to take an over the counter stool softener. Eating lots of fruit and vegetables can also help with constipation. CARE OF YOUR INCISIONS Pay attention to your incisions and shower every day after you go home. Some swelling, bruising or redness is normal and will get better with time. Do not take a bath until all of your incisions are healed. Wash the incisions gently with antibacterial soap and water in the shower Use a clean washcloth every day Wash your chest incision first, then wash any arm incision, and last wash leg incisions Wash the rest of your body after cleaning all of your incisions Never use any cream or lotion on your incisions until they are healed all the way. Keep your incisions clean and dry Do not cover the incision with a dressing unless you are having drainage If you have romaine, they will be taken out at the office visit You might notice some swelling or a lump at the top of the chest incision, but this is normal. [place] surgeon right away if you notice clicking in your chest. Your legs might swell after your surgery so follow these tips: Keep legs elevated when sitting. As a rule, it is best to elevate them above the level of your heart. For instance, if you are lying flat on a sofa, place your legs up on the arm of the sofa. Do not cross your legs. Wear your elastic stockings during the day for 4 weeks. Put them on before you get out of bed in the morning and then take them off at night. These will help keep your legs from swelling. ACTIVITY It is important to keep moving after heart surgery, but you will need to take rest periods throughout the day. Every day, increase your activity as you are able. Walk as much as possible, and gradually increase your distance every day. It will be normal to be sore for a couple of weeks after surgery. Get medical attention if your condition seems to be getting worse instead of better No heavy housework or heavy work outdoors You may use the stairs as tolerated Avoid lifting anything greater than 10 pounds Avoid any pushing or pulling with your arms. Avoid overexertion and take rest periods when you get tired Do not drive until your doctor tells you it is OK, typically 4 weeks. It is fine to go upstairs but take it slow and do not pull yourself up with the handrail. Avoid opening windows and opening tight jar lids. Do not bear down with bowel movements and do not hold your breath. Check with the surgeon before returning to work. Waiting 1-3 weeks is recommended for sexual intercourse. When you can walk briskly or climb 2 flights of stairs without pain or shortness of breath, you may be ready for sex. WEIGHT Weigh yourself every morning and write it down on paper. Use the same scale and weigh at the same time each day. Tell your doctor if you gain 2 pounds or more in one day. EATING HEALTHY Your doctor wants you to follow a heart healthy diet which is low in salt and low in fat. Your nurse has given you a book all about the diet you will need to follow. If you are diabetic or overweight, you will be given a calorie restriction too. If constipation is a problem, add more bran or fiber to your diet and you may take a mild qzyj-sva-hyzolch laxative like Milk of Magnesia . CARDIAC REHABILITATION Getting involved in cardiac rehab after your heart surgery is the best thing that you can do to feel better and stronger at a faster rate. The program is medically supervised to help patients recoverand improve mental and physical function. It also helps reduce stress and can decrease your risk ofhaving more heart problems. Your doctor will let you know when you can begin the program. SMOKING Give up smoking after heart surgery or it may cancel out the value of having your surgery. It may also delay the healing process. If you need help to quit, please call your surgeon or your heart doctor. [place] also has a free stop smoking program called Give it Up and if you want to attend, pleasecall [phone]). Call the Surgeon If your incisions are red, oozing pus, or bleeding or if the edges are Call if there is a clicking in your sternum. Call if you are more short of breath. Call if you have dizziness Call if you have a fever of 101 or higher. Call if you have more ankle swelling, pain in your leg, or pain in your calf. Call the Heart Doctor ([facility]) If your heart beats are irregular or are fast. If you have any questions about your medicine. If you gain 2 or more pounds in one day. If you feel dizzy or lightheaded when you first stand up. If you have any questions about getting help at home after you are discharged. If you have painful, frequent or bloody urination. GET IMMEDIATE MEDICAL HELP IF YOU HAVE: Chest pain, jaw pain, sweating, dizziness or severe shortness of breath, you could be having a heart attack. Please dial [phone]. 11/12/2024 04:39:29 Heart-Healthy Eating Plan Heart-Healthy Eating Plan Many factors influence your heart (coronary) health, including eating and exercise habits. Coronaryrisk increases with abnormal blood fat (lipid) levels. Heart-healthy meal planning includes limiting unhealthy fats, increasing healthy fats, and making other diet and lifestyle changes. What is my plan? Your health care provider may recommend that you: Limit your fat intake to % or less of your total calories each day. Limit your saturated fat intake to % or less of your total calories each day. Limit the amount of cholesterol in your diet to less than mg per day. What are tips for following this plan? Cooking Cook foods using methods other than frying. Baking, boiling, grilling, and broiling are all good options. Other ways to reduce fat include: Removing the skin from poultry. Removing all visible fats from meats. Steaming vegetables in water or broth. Meal planning At meals, imagine dividing your plate into fourths: ?Fill one-half of your plate with vegetables and green salads. ?Fill one-fourth of your plate with whole grains. ?Fill one-fourth of your plate with lean protein foods. Eat 4 5 servings of vegetables per day. One serving equals 1 cup raw or cooked vegetable, or 2 cupsraw leafy greens. Eat 4 5 servings of fruit per day. One serving equals 1 medium whole fruit, cup dried fruit, cup fresh, frozen, or canned fruit, or cup 100% fruit juice. Eat more foods that contain soluble fiber. Examples include apples, broccoli, carrots, beans, peas,and barley. Aim to get 25 30 g of fiber per day. Increase your consumption of legumes, nuts, and seeds to 4 5 servings per week. One serving of dried beans or legumes equals cup cooked, 1 serving of nuts is cup, and 1 serving of seeds equals 1 tablespoon. Fats Choose healthy fats more often. Choose monounsaturated and polyunsaturated fats, such as olive and canola oils, flaxseeds, walnuts, almonds, and seeds. Eat more omega-3 fats. Choose salmon, mackerel, sardines, tuna, flaxseed oil, and ground flaxseeds.Aim to eat fish at least 2 times each week. Check food labels carefully to identify foods with trans fats or high amounts of saturated fat. Limit saturated fats. These are found in animal products, such as meats, butter, and cream. Plant sources of saturated fats include palm oil, palm kernel oil, and coconut oil. Avoid foods with partially hydrogenated oils in them. These contain trans fats. Examples are stick margarine, some tub margarines, cookies, crackers, and other baked goods. Avoid fried foods. General information Eat more home-cooked food and less restaurant, buffet, and fast food. Limit or avoid alcohol. Limit foods that are high in starch and sugar. Lose weight if you are overweight. Losing just 5 10% of your body weight can help your overall health and prevent diseases such as diabetes and heart disease. Monitor your salt (sodium) intake, especially if you have high blood pressure. Talk with your health care provider about your sodium intake. Try to incorporate more vegetarian meals weekly. What foods can I eat? Fruits All fresh, canned (in natural juice), or frozen fruits. Vegetables Fresh or frozen vegetables (raw, steamed, roasted, or grilled). Green salads. Grains Most grains. Choose whole wheat and whole grains most of the time. Rice and pasta, including brown rice and pastas made with whole wheat. Meats and other proteins Lean, well-trimmed beef, veal, pork, and vigil. Chicken and turkey without skin. All fish and shellfish. Wild duck, rabbit, pheasant, and venison. Egg whites or low-cholesterol egg substitutes. Dried beans, peas, lentils, and tofu. Seeds and most nuts. Dairy Low-fat or nonfat cheeses, including ricotta and mozzarella. Skim or 1% milk (liquid, powdered, or evaporated). Buttermilk made with low-fat milk. Nonfat or low-fat yogurt. Fats and oils Non-hydrogenated (trans-free) margarines. Vegetable oils, including soybean, sesame, sunflower, olive, peanut, safflower, corn, canola, and cottonseed. Salad dressings or mayonnaise made with a vegetable oil. Beverages Water (mineral or sparkling). Coffee and tea. Diet carbonated beverages. Sweets and desserts Sherbet, gelatin, and fruit ice. Small amounts of dark chocolate. Limit all sweets and desserts. Seasonings and condiments All seasonings and condiments. The items listed above may not be a complete list of foods and beverages you can eat. Contact a dietitian for more options. What foods are not recommended? Fruits Canned fruit in heavy syrup. Fruit in cream or butter sauce. Fried fruit. Limit coconut. Vegetables Vegetables cooked in cheese, cream, or butter sauce. Fried vegetables. Grains Breads made with saturated or trans fats, oils, or whole milk. Croissants. Sweet rolls. Donuts. High-fat crackers, such as cheese crackers. Meats and other proteins Fatty meats, such as hot dogs, ribs, sausage, gutierrez, rib-eye roast or steak. High-fat deli meats, such as salami and bologna. Caviar. Domestic duck and goose. Organ meats, such as liver. Dairy Cream, sour cream, cream cheese, and creamed cottage cheese. Whole milk cheeses. Whole or 2% milk (liquid, evaporated, or condensed). Whole buttermilk. Cream sauce or high-fat cheese sauce. Whole-milk yogurt. Fats and oils Meat fat, or shortening. [place] butter, hydrogenated oils, palm oil, coconut oil, palm kernel oil. Solid fats and shortenings, including gutierrez fat, salt pork, lard, and butter. Nondairy cream substitutes. Salad dressings with cheese or sour cream. Beverages Regular sodas and any drinks with added sugar. Sweets and desserts Frosting. Pudding. Cookies. Cakes. Pies. Milk chocolate or white chocolate. Buttered syrups. Full-fat ice cream or ice cream drinks. The items listed above may not be a complete list of foods and beverages to avoid. Contact a dietitian for more information. Summary Heart-healthy meal planning includes limiting unhealthy fats, increasing healthy fats, and making other diet and lifestyle changes. Lose weight if you are overweight. Losing just 5 10% of your body weight can help your overall health and prevent diseases such as diabetes and heart disease. Focus on eating a balance of foods, including fruits and vegetables, low-fat or nonfat dairy, lean protein, nuts and legumes, whole grains, and heart-healthy oils and fats. This information is not intended to replace advice given to you by your health care provider. Make sure you discuss any questions you have with your health care provider. Document Released: 08/22/2009 Document Revised: 12/21/2018 Document Reviewed: 12/21/2018 [employer] Patient Education 2020 [email or web address]. Follow Up Care 11/04/2024 00:53:02 With:SHLOMO GUILLEN APRN-[facility] Address: [address] [place] [address] [address] [facility] [place] [address] [phone] When:11/22/2024 09:00:00 Comments:Please obtain lab work and a chest x-ray at least 1 hour prior to this appointment With:CT DYSON Address: [address] [place] [address]- [phone] [facility] (1) When: Unknown Comments:PLEASE CALL THIS OFFICE TO SCHEDULE A HOSPITAL FOLLOW UP APPOINTMENT. With:ADDISON DYKES MD Address: [address] [facility] [place] [address]- [phone] When:12/16/2024 11:15:00 With:Justin Benitez Address:Unknown When:1-2 days Comments:Your chair time is at 1pm on Mondays, Wednesdays and Fridays. You will need to arrive 30 minutes early for your first appointment. With:LAUREEN BIRD MD, [facility], Vascular Service, Vascular Surgeons Address: [address] [facility] [place] [address] [phone] When: Unknown Comments:Follow-up in 2 weeks With:[facility] Address:Unknown When: Unknown Comments:A referral has been made to [facility] on your behalf for RN services to follow at discharge. A nurse will contact you at your home to schedule your first appt. Please contact , with any questions or concerns you may have. With:[facility] Address: [facility] [address] [place] [address]- When: Unknown Comments:The Cardiac rehab department will call you to schedule you for Phase 2. If you have any questions please call us at [phone]. Thank you. [facility] 12-17-2024 Note Discharge Instructions Thank you for allowing [facility] to assist you with your healthcare needs. The following is importantdischarge information regarding your hospital visit. Your Care Team CT DYSON DO Your Diagnosis Acute blood loss anemia Acute kidney injury superimposed on chronic kidney disease CAD IN MOHEGAN ARTERY S/P CABG X 3 11/06/2024 Chronic kidney disease COPD (chronic obstructive pulmonary disease) DM2 (diabetes mellitus, type 2) GERD (gastroesophageal reflux disease) Hypercholesteremia Hypertension Left carotid stenosis Severe 80-99%per doppler NSTEMI (non-ST elevated myocardial infarction) Thrombocytopenia What to do next Instructions From Your Doctor Check your blood glucose at home as directed. Take the log to head of sales promotion as outpatient for further adjustment of your insulin. Scheduled Follow-Up Appointments Appointment Type When With Where Contact Information StatusTelephone 11/14/2024 08:00 AM SHLOMO BECKER Cardiothoracic Surgery Confirmed CTS OV Post Op 11/22/2024 09:00 AM SHLOMO BEKCER Cardiothoracic Surgery Confirmed CV OV 12/16/2024 11:15 [facility] [place] [facility] Confirmed PC OV Controlled Medication [facility]2024 [facility] [facility] - Diabetic Individual Visit 12/26/2024 04:00 PM JANIE Michel Diet Visits [phone] Confirmed Follow Up Appointments Follow Up with CT DYSON Where:[address] [place] [address]- [phone] Business (1) Additional Information: PLEASE CALL THIS OFFICE TO SCHEDULE A HOSPITAL FOLLOW UP APPOINTMENT. Follow Up with Justin Benitez When:Within 1-2 days Additional Information: Your chair time is at 1pm on Mondays, Wednesdays and Fridays. You will needto arrive 30 minutes early for your first appointment. Follow Up with LAUREEN BIRD MD, [facility], Vascular Service, Vascular Surgeons Where:[address] [facility] [place] [address]- [phone] Additional Information: Follow-up in 2 weeks Follow Up with [facility] Additional Information: A referral has been made to [facility] on your behalf for RN services to follow at discharge. A nurse will contact you at your home to schedule your first appt. Please contact , with any questions or concerns you may have. Follow Up with [facility] Where:[facility] [address] [place] [address]- Additional Information: The Cardiac rehab department will call you to schedule you for Phase 2. If you have any questions please call us at [phone]. Thank you. Follow Up with SHLOMO GUILLEN When:11/22/2024 09:00 AM EST Where:[address] [facility] [address] [facility] [place] [address] [phone] Additional Information: Please obtain lab work and a chest x-ray at least 1 hour prior to this appointment Follow Up with ADDISON DYKES MD When:12/16/2024 11:15 AM EST Where:[address] [facility] [address] [place] [address]- [phone] The Following Activity and Diet Have Been Ordered for You Discharge Activity - Ordered -- Lifting Restricted less than 10 pounds May Shower, No Driving x 6 weeks, 11/12/24 11:03:00 EST Discharge Activity - Ordered -- Other, Additional instructions include: Incentive spirometer 10 breaths every hour while awakeAcapella 10 breaths every hour while awake, 11/12/24 11:03:00 EST Discharge Diet - Ordered -- Type of Diet: Regular, Diet Restrictions: Renal diet, Calories Permitted: 1800 kcal, Sodium limit: Low, Potassium limit: Low, 11/12/24 11:03:00 EST The Following Equipment Has Been Ordered for You Discharge Home Equipment Discharge Wound Care - Ordered -- Sternum, Wash chest incision and leg incision daily with soap and water, 11/12/24 11:03:00 EST The Following Treatments Have Been Ordered for You Discharge Labs Discharge Outpatient Labwork - Ordered -- bmp, diuretic therapy/jimmy, follow-up within: 1 week, Please have your blood work drawn at the [facility] outpatient department, 11/12/24 11:03:00 EST Discharge Radiology Discharge Outpatient Radiology - Ordered -- PA & Lateral CXR, Pleural Effusions, Please arrive at least 1 hour prior to your scheduled appointment with the surgeon's office and have the chest x-ray done at [facility] outpatient radiology, 11/12/24 11:03:00 EST Other Therapies No qualifying data available. Post Acute Orders No qualifying data available. Someone Will Contact You Regarding These Home Health Referrals No home referrals have been ordered for you. No one will call you. Allergies Bee Stings lisinopril Cough Medications Please ask your primary doctor or pharmacist before taking any other medication not listed, including over the counter drugs, herbal medications, vitamins and or supplements as they may interact withyour home medications. What How Much When Why Instructions Last Dose New acetaminophen 650 Milligram by mouth Every 4 hours as needed for Pain, scale 1-3 New clopidogrel (Plavix 75 mg oral tablet) 1 tab(s) by mouth Once a day Refills: 2 Pickup at [facility] New metoprolol (metoprolol tartrate 25 mg oral tablet) 0.5 tab(s) by mouth Twice daily with meals Refills: 3 Pickup at [facility] New midodrine (midodrine 5 mg oral tablet) See instructions Refills: 3 5 mg on DAY of Dialysis, prior to dialysis Pickup at [facility] New polyethylene glycol 3350 (Miralax Powder Packet) by mouth Once a day as needed for Constipation Changed insulin degludec (Tresiba FlexTouch 100 units/ mL 3 mL subcutaneous solution) 40 unit(s) Subcutaneous Once a day Duration: 90 Days Unchanged acetaminophen-oxyCODONE (acetaminophen-oxyCODONE 325 mg-5 mg oral tablet) 1 tab(s) by mouth Three (3) times a day as needed for for pain Chronic knee 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 Duration: 30 Days Unchanged aspirin (aspirin 81 mg oral delayed release tablet) 1 tab(s) by mouth Once a day Unchanged atorvastatin (atorvastatin 40 mg oral tablet) 1 tab(s) by mouth Once a day Unchanged cholecalciferol (Vitamin D3 25 mcg (1000 intl units) oral capsule) 1 cap by mouth Every day Unchanged escitalopram (escitalopram 5 mg oral tablet) 1 tab(s) by mouth Once a day Unchanged ezetimibe (ezetimibe 10 mg oral tablet) 1 tab(s) by mouth Once a day Duration: 90 Days Unchanged pantoprazole (pantoprazole 40 mg oral enteric coated tablet) 1 tab(s) by mouth Once a day Unchanged semaglutide (Rybelsus 7 mg oral tablet) 1 tab(s) by mouth Once a day DM2 (diabetes mellitus, type 2) take at least 30 minutes before first food, beverage, or other oral meds Pharmacy Information [facility]: [address] [place] [address] [phone] What How Much When Why Comments Stop Taking amLODIPine (amLODIPine 5 mg oral tablet) 1 tab(s) by mouth Once a day (in the evening) Hypertension Stop Taking empagliflozin (Jardiance 10 mg oral tablet) 1 tab(s) by mouth Once a day (in the morning) Stop Taking hydroCHLOROthiazide (hydroCHLOROthiazide 25 mg oral tablet) 1 tab(s) by mouth Once a day Stop Taking losartan (losartan 100 mg oral tablet) 1 tab(s) by mouth Once a day Duration: 100 Days Please take this list to your next doctor s visit. Bring all medications you take, including over the counter medications, herbals and other supplements with you to your doctor s visit. Patients and families are reminded to discard old lists and to update any records with all medication providers or retail pharmacies. Education Materials Eating Plan for Dialysis Dialysis is a procedure that is done when the kidneys have stopped working properly (kidney failure). During dialysis, wastes, salt, and extra water are removed from the blood, and the levels of certain minerals in the blood are maintained. If you are undergoing dialysis, it is important to pay careful attention to what you eat. Between dialysis sessions, certain nutrients and wastes can build upin your blood and cause you to get sick. Even though nutrients, such as carbohydrates, fats, vitamins, and minerals, are an important part of a healthy diet, you may need to limit your intake of certain nutrients when you are on dialysis. When you are on dialysis, it is important that you work with your health care provider or a diet and nutrition manager (dietitian) to help you make an eating plan that meets your specific needs. What are tips for following this plan? Reading food labels Check food labels for the amount of: ? Potassium. This is found in milk, fruits, and vegetables. ? Phosphorus. This is found in milk, cheese, beans, nuts, and carbonated beverages. ? Sodium. Sodium content is high in processed and cured meats, ready-made frozen meals, canned vegetables, and salty snack foods. Try to find foods that are low in potassium, phosphorus, and sodium. Look for foods that are labeled sodium free, reduced sodium, or low sodium. Shopping Do not buy whole-grain and high-fiber foods because they contain high amounts of phosphorus. Do not buy or use salt substitutes because they contain potassium. Do not buy processed foods. These are usually high in sodium and phosphorus. Cooking Drain all fluid from cooked vegetables and canned fruits before eating them. Cut potatoes into small pieces and boil them in unsalted water before you eat them. This can help to remove some potassium from the potato. To add flavor, try using herbs and spices that do not contain sodium. Meal planning Most people on dialysis should try to eat: ? 6 11 servings of grains each day. One serving is equal to 1 slice of bread or cup of cooked rice orpasta. ? 2 3 servings of low-potassium vegetables each day. One serving is equal to cup. ? 2 3 servings of low-potassium fruits each day. One serving is equal to cup. ? High-quality proteins, such as meat, poultry, fish, and eggs. Talk with your health care provider or dietitian about the right amount and type of protein to include in your eating plan. ? cup of dairy each day. Avoid foods that are high in sodium and phosphorus. Foods that generally are very salty will be high in sodium, and foods that are high in fiber or starch may be high in phosphorus. General information Follow your health care provider's instructions to restrict your fluid intake. You may be told to: ? Write down what you drink and any foods you eat that are made mostly from water, such as gelatin and soups. ? Drink from small cups to help control how much you drink. Take vitamin and mineral supplements only as told by your health care provider. Take fren-boo-akkwrfg and prescription medicines only as told by your health care provider. ? Your health care provider may recommend an nwcm-gsc-svdsbij medicine that binds phosphorus, such asan antacid medicine that contains calcium carbonate. What foods can I eat? Fruits Apples. Fresh or frozen berries. Fresh or canned pears, peaches, and pineapple. Grapes. Plums. Vegetables Fresh or frozen broccoli, carrots, and green beans. Cabbage. Cauliflower. Celery. Cucumbers. Eggplant. Radishes. Zucchini. Grains White bread. White rice. Cooked cereal. Unsalted popcorn. Tortillas. Pasta. Meats and other proteins Fresh or frozen beef, pork, chicken, and fish. Eggs. Dairy Cream cheese. Heavy cream. Ricotta cheese. Beverages Apple cider. Cranberry juice. Grape juice. Lemonade. Black coffee. Rice milk (that is not enriched or fortified). Condiments Herbs. Spices. Jam and jelly. Honey. Sweets and desserts Sherbet. Cakes. Cookies. Fats and oils Avera oil, canola oil, and safflower oil. Other Non-dairy creamer. Non-dairy whipped topping. Homemade broth without salt. The items listed above may not be a complete list of foods and beverages you can eat. Contact your dietitian for more options. What foods are not recommended? Fruits Star fruit. Bananas. Oranges. Kiwi. Nectarines. Prunes. Melon. Dried fruit. Avocado. Vegetables Potatoes. Beets. Tomatoes. Winter squash and pumpkin. Asparagus. Spinach. Parsnips. Grains Whole-grain bread. Whole-grain pasta. High-fiber cereal. Meats and other proteins Canned, smoked, and cured meats. Packaged luncheon meat. Sardines. Nuts and seeds. Peanut butter. Beans and legumes. Dairy Milk. Buttermilk. Yogurt. Cheese and cottage cheese. Processed cheese spreads. Beverages [place] juice. Prune juice. Carbonated soft drinks. Condiments Salt. Salt substitutes. Soy sauce. Sweets and desserts Ice cream. Chocolate. Candied nuts. Fats and oils Butter. Margarine. Other Ready-made frozen meals. Canned soups. The items listed above may not be a complete list of foods and beverages you should avoid. Contact your dietitian for more information. Summary Dialysis is a procedure that is done when the kidneys have stopped working properly (kidney failure). If you are undergoing dialysis, it is important to pay careful attention to what you eat. Between dialysis sessions, certain nutrients and wastes can build up in your blood and cause you to get sick. Your dietitian will help you design an eating plan that is specific to your needs. Avoid foods that are high in sodium and phosphorus. Restrict fluids as told by your health care provider or dietitian. This information is not intended to replace advice given to you by your health care provider. Make sure you discuss any questions you have with your health care provider. Document Released: 08/10/2005 Document Revised: 04/01/2020 Document Reviewed: 11/14/2018 [employer] Patient Education 2020 [employer] Incision Care General Information about how to care for your Incision Always follow your surgeon s specific recommendations about incision care exactly. Keep incision clean and dry. Do not put salves, ointments or powder on the incision unless your surgeon has instructed you to. If you have a dressing over your incision, change it as directed by your healthcare professional Avoid touching your incision. Hands carry germs that can cause infections. When your surgeon gives you permission to shower, gently wash, DO NOT RUB your incision, with mild soap and water. You can use liquid or bar soap. Use a new/clean washcloth and towel on your incisionevery day. Avoid irritation to the incision. Wear loose fitting clothing. Do not remove the tape strips (steri strips) until told to do so. They will fall off on their own. Do not expose your incision to sunlight. After washing your hands, check your incision daily to make sure it is healing normally. The incision is staying together There is no drainage or only small amounts of clear or bloody drainage The skin around the incision may be slightly red which goes away over time You may notice some soreness, tenderness, tingling, numbness, bruising and itching around the site. Notify your Surgeon if: Your incision shows signs of an infection such as skin very painful, red, warm and/or swollen around the incision, Drainage that is foul smelling or looks like pus or If you have an elevated temperature with the above symptoms The incision begins to come apart You have large amounts of blood or fluid oozing from the incision. Make sure you have a follow-up appointment with your surgeon. Call to reschedule if you are unable to make the appointment time that was scheduled for you. Instructions: Wash your chest incision first. Wash your arm incision second. Wash your leg incisions last. Clean the rest of your body after your incisions are washed. Rinse your body well before leaving the shower. Dry gently with a clean towel. Do not use creams, lotions, powder, or salves on incisions. Please dress in clean, loose-fitting clothes. Incision Care Video Document Released: 11/13/2006 Document Revised: 10/30/2013 Document Reviewed: 11/14/2014 [employer] Patient Information 2015 [employer]. This information is not intended to replace advicegiven to you by your health care provider. Make sure you discuss any questions you have with your health care provider. Daily Weight Record It is important to weigh yourself daily. To do this: Make sure you use a reliable scale. Use the same scale each day. Keep this daily weight chart near your scale. Weigh yourself each morning at the same time. Before weighing yourself: ? Take off your shoes. ? Make sure you are wearing the same amount of clothing each day. Write down your weight in the spaces on the form. Compare today's weight to yesterday's weight. Bring this form with you to your follow-up visits with your health care provider. Call your health care provider if you have concerns about your weight, including rapid weight gain or loss. Date: Weight: Date: Weight: Date: Weight: Date: Weight: Date: Weight: Date: Weight: Date: Weight: Date: Weight: Date: Weight: Date: Weight: Date: Weight: Date: Weight: Date: Weight: Date: Weight: Date: Weight: Date: Weight: Date: Weight: Date: Weight: Date: Weight: Date: Weight: Date: Weight: Date: Weight: Date: Weight: Date: Weight: Date: Weight: Date: Weight: Date: Weight: Date: Weight: Date: Weight: Date: Weight: Date: Weight: Date: Weight: Date: Weight: Date: Weight: Date: Weight: Date: Weight: Date: Weight: Date: Weight: Date: Weight: Date: Weight: Date: Weight: Date: Weight: Date: Weight: Date: Weight: Date: Weight: Date: Weight: Date: Weight: Date: Weight: Date: Weight: Date: Weight: This information is not intended to replace advice given to you by your health care provider. Make sure you discuss any questions you have with your health care provider. Document Released: 01/25/2008 Document Revised: 11/12/2018 Document Reviewed: 11/12/2018 [employer] Patient Education 2020 [employer] Diabetes Mellitus and Nutrition, Adult When you have diabetes (diabetes mellitus), it is very important to have healthy eating habits because your blood sugar (glucose) levels are greatly affected by what you eat and drink. Eating healthyfoods in the appropriate amounts, at about the same times every day, can help you: Control your blood glucose. Lower your risk of heart disease. Improve your blood pressure. Reach or maintain a healthy weight. Every person with diabetes is different, and each person has different needs for a meal plan. Your health care provider may recommend that you work with a diet and nutrition manager (dietitian) tomake a meal plan that is best for you. Your meal plan may vary depending on factors such as: The calories you need. The medicines you take. Your weight. Your blood glucose, blood pressure, and cholesterol levels. Your activity level. Other health conditions you have, such as heart or kidney disease. How do carbohydrates affect me? Carbohydrates, also called carbs, affect your blood glucose level more than any other type of food.Eating carbs naturally raises the amount of glucose in your blood. Carb counting is a method for keeping track of how many carbs you eat. Counting carbs is important to keep your blood glucose at a healthy level, especially if you use insulin or take certain oral diabetes medicines. It is important to know how many carbs you can safely have in each meal. This is different for every person. Your dietitian can help you calculate how many carbs you should have at each meal and for each snack. Foods that contain carbs include: Bread, cereal, rice, pasta, and crackers. Potatoes and corn. Peas, beans, and lentils. Milk and yogurt. Fruit and juice. Desserts, such as cakes, cookies, ice cream, and candy. How does alcohol affect me? Alcohol can cause a sudden decrease in blood glucose (hypoglycemia), especially if you use insulin or take certain oral diabetes medicines. Hypoglycemia can be a life-threatening condition. Symptoms of hypoglycemia (sleepiness, dizziness, and confusion) are similar to symptoms of having too much alcohol. If your health care provider says that alcohol is safe for you, follow these guidelines: Limit alcohol intake to no more than 1 drink per day for non women and 2 drinks per day formen. One drink equals 12 oz of beer, 5 oz of wine, or 1 oz of hard liquor. Do not drink on an empty stomach. Keep yourself hydrated with water, diet soda, or unsweetened iced tea. Keep in mind that regular soda, juice, and other mixers may contain a lot of sugar and must be counted as carbs. What are tips for following this plan? Reading food labels Start by checking the serving size on the Nutrition Facts label of packaged foods and drinks. Theamount of calories, carbs, fats, and other nutrients listed on the label is based on one serving ofthe item. Many items contain more than one serving per package. Check the total grams (g) of carbs in one serving. You can calculate the number of servings of carbs in one serving by dividing the total carbs by 15. For example, if a food has 30 g of total carbs, it would be equal to 2 servings of carbs. Check the number of grams (g) of saturated and trans fats in one serving. Choose foods that have low or no amount of these fats. Check the number of milligrams (mg) of salt (sodium) in one serving. Most people should limit totalsodium intake to less than 2,300 mg per day. Always check the nutrition information of foods labeled as low-fat or nonfat. These foods may be higher in added sugar or refined carbs and should be avoided. Talk to your dietitian to identify your daily goals for nutrients listed on the label. Shopping Avoid buying canned, premade, or processed foods. These foods tend to be high in fat, sodium, and added sugar. Shop around the outside edge of the grocery store. This includes fresh fruits and vegetables, bulk grains, fresh meats, and fresh dairy. Cooking Use low-heat cooking methods, such as baking, instead of high-heat cooking methods like deep frying. Cook using healthy oils, such as olive, canola, or sunflower oil. Avoid cooking with butter, cream, or high-fat meats. Meal planning Eat meals and snacks regularly, preferably at the same times every day. Avoid going long periods oftime without eating. Eat foods high in fiber, such as fresh fruits, vegetables, beans, and whole grains. Talk to your dietitian about how many servings of carbs you can eat at each meal. Eat 4 6 ounces (oz) of lean protein each day, such as lean meat, chicken, fish, eggs, or tofu. One oz of lean protein is equal to: ? 1 oz of meat, chicken, or fish. ? 1 egg. ? cup of tofu. Eat some foods each day that contain healthy fats, such as avocado, nuts, seeds, and fish. Lifestyle Check your blood glucose regularly. Exercise regularly as told by your health care provider. This may include: ? 150 minutes of moderate-intensity or vigorous-intensity exercise each week. This could be brisk walking, biking, or water aerobics. ? Stretching and doing strength exercises, such as yoga or weightlifting, at least 2 times a week. Take medicines as told by your health care provider. Do not use any products that contain nicotine or tobacco, such as cigarettes and e-cigarettes. If you need help quitting, ask your health care provider. Work with a counselor or staff development educator to identify strategies to manage stress and any emotional and social challenges. Questions to ask a health care provider Do I need to meet with a staff development educator? Do I need to meet with a dietitian? What number can I call if I have questions? When are the best times to check my blood glucose? Where to find more information: [place] [employer]: diabetes.org Academy of Nutrition and Dietetics: www.eatright.org National [employer] of Diabetes and Digestive and Kidney Diseases (NIH): www.niddk.nih.gov Summary A healthy meal plan will help you control your blood glucose and maintain a healthy lifestyle. Working with a diet and nutrition manager (dietitian) can help you make a meal plan that is bestfor you. Keep in mind that carbohydrates (carbs) and alcohol have immediate effects on your blood glucose levels. It is important to count carbs and to use alcohol carefully. This information is not intended to replace advice given to you by your health care provider. Make sure you discuss any questions you have with your health care provider. Document Released: 08/10/2006 Document Revised: 10/26/2018 Document Reviewed: 12/18/2017 [employer] Patient Education 2020 [email or web address]. Eating Plan for Dialysis Dialysis is a treatment that cleans your blood. It is used when your kidneys are damaged. When you need dialysis, you should watch what you eat. This is because some nutrients can build up in your blood between treatments and make you sick. Your doctor or diet specialist (dietitian) will: Tell you what nutrients you should include or avoid. Tell you how much of these nutrients you should get each day. Help you plan meals. Tell you how much to drink each day. What are tips for following this plan? Reading food labels Check food labels for: ? Potassium. This is found in milk, fruits, and vegetables. ? Phosphorus. This is found in milk, cheese, beans, nuts, and carbonated beverages. ? Salt (sodium). This is in processed meats, cured meats, ready-made frozen meals, canned vegetables,and salty snack foods. Try to find foods that are low in potassium, phosphorus, and sodium. Look for foods that are labeled sodium free, reduced sodium, or low sodium. Shopping Do not buy whole-grain and high-fiber foods. Do not buy or use salt substitutes. Do not buy processed foods. Cooking Drain all fluid from cooked vegetables and canned fruits before you eat them. Before you cook potatoes, cut them into small pieces. Then boil them in unsalted water. Try using herbs and spices that do not contain sodium to add flavor. Meal planning Most people on dialysis should try to eat: 6-11 servings of grains each day. One serving is equal to 1 slice of bread or cup of cooked rice orpasta. 2 3 servings of low-potassium vegetables each day. One serving is equal to cup. 2 3 servings of low-potassium fruits each day. One serving is equal to cup. Protein, such as meat, poultry, fish, and eggs. Talk with your doctor or dietitian about the right amount and type of protein to eat. cup of dairy each day. General information Follow your doctor's instructions about how much to drink. You may be told to: ? Write down what you drink. ? Write down the foods you eat that are made mostly from water, such as gelatin and soups. ? Drink from small cups. Take vitamin and mineral supplements only as told by your doctor. Take aeaa-ouq-fbfhjsr and prescription medicines only as told by your doctor. What foods can I eat? Fruits Apples. Fresh or frozen berries. Fresh or canned pears, peaches, and pineapple. Grapes. Plums. Vegetables Fresh or frozen broccoli, carrots, and green beans. Cabbage. Cauliflower. Celery. Cucumbers. Eggplant. Radishes. Zucchini. Grains White bread. White rice. Cooked cereal. Unsalted popcorn. Tortillas. Pasta. Meats and other proteins Fresh or frozen beef, pork, chicken, and fish. Eggs. Dairy Cream cheese. Heavy cream. Ricotta cheese. Beverages Apple cider. Cranberry juice. Grape juice. Lemonade. Black coffee. Rice milk (that is not enriched or fortified). Seasonings and condiments Herbs. Spices. Jam and jelly. Honey. Sweets and desserts Sherbet. Cakes. Cookies. Fats and oils Avera oil, canola oil, and safflower oil. Other foods Non-dairy creamer. Non-dairy whipped topping. Homemade broth without salt. The items listed above may not be a complete list of foods and beverages you can eat. Contact your dietitian for more options. What foods should I avoid? Fruits Star fruit. Bananas. Oranges. Kiwi. Nectarines. Prunes. Melon. Dried fruit. Avocado. Vegetables Potatoes. Beets. Tomatoes. Winter squash and pumpkin. Asparagus. Spinach. Parsnips. Grains Whole-grain bread. Whole-grain pasta. High-fiber cereal. Meats and other proteins Canned, smoked, and cured meats. Packaged lunch meat. Sardines. Nuts and seeds. Peanut butter. Beans and legumes. Dairy Milk. Buttermilk. Yogurt. Cheese and cottage cheese. Processed cheese spreads. Beverages [place] juice. Prune juice. Carbonated soft drinks. Seasonings and condiments Salt. Salt substitutes. Soy sauce. Sweets and desserts Ice cream. Chocolate. Candied nuts. Fats and oils Butter. Margarine. Other foods Ready-made frozen meals. Canned soups. The items listed above may not be a complete list of foods and beverages you should avoid. Contact your dietitian for more information. Summary If you are having dialysis, it is important to watch what you eat. Certain nutrients and wastes canbuild up in your blood and cause you to get sick. Your dietitian will help you make an eating plan that meets your needs. Avoid foods that are high in potassium, salt (sodium), and phosphorus. Restrict fluids as told by your doctor or dietitian. This information is not intended to replace advice given to you by your health care provider. Make sure you discuss any questions you have with your health care provider. Document Released: 05/14/2013 Document Revised: 01/30/2019 Document Reviewed: 11/14/2018 [employer] Patient Education 2020 [email or web address]. Dialysis Dialysis is a procedure that is done when the kidneys have stopped working properly (kidney failure). It may also be done earlier if it may help improve symptoms. During dialysis, wastes, salt, and extra water are removed from the blood, and the levels of certain minerals in the blood are maintained. Dialysis is done in sessions which are continued until the kidneys get better. If the kidneys cannot get better, such as in end-stage kidney disease, dialysis is continued for life or until you receive a new kidney from a donor (kidney transplant). There are two types of dialysis: hemodialysis and peritoneal dialysis. What is hemodialysis? Hemodialysis is when a machine called a dialyzer is used to filter the blood. Before starting hemodialysis, you will have surgery to create a site where blood can be removed from the body and returned to the body (vascular access). There are three types of vascular accesses: Arteriovenous fistula. This type of access is created when an artery and a vein (usually in the arm) are connected during surgery. The arteriovenous fistula usually takes 1 6 months to develop after surgery. It may last longer than the other types of vascular accesses and is less likely to become infected or cause blood clots. Arteriovenous graft. This type of access is created when an artery and a vein in the arm are connected during surgery with a tube. An arteriovenous graft can usually be used within 2 3 weeks of surgery. A venous catheter. To create this type of access, a thin tube (catheter) is placed in a large vein in your neck, chest, or groin. A venous catheter can be used right away. It is usually used as a temporary access when dialysis needs to begin immediately. During hemodialysis, blood leaves your body through your access site. It travels through a tube to the dialyzer, where it is filtered. The blood then returns to your body through another tube. Hemodialysis is usually done at a hospital or dialysis center three times a week. Visits last about3 5 hours. With special training, it may also be done at home with the help of another person. What is peritoneal dialysis? Peritoneal dialysis is when the thin lining of the abdomen (peritoneum) and a fluid called dialysate are used to filter the blood. Before starting peritoneal dialysis, you will have surgery to place a catheter in your abdomen. The catheter will be used to transfer dialysate to and from your abdomen. At the start of a session, your abdomen is filled with dialysate. During the session, wastes, salt,and extra water in the blood pass through the peritoneum and into the dialysate. The dialysate is drained from the body at the end of the session. The process of filling and draining the dialysate iscalled an exchange. Exchanges are repeated until you have used up all the dialysate for the day. You may do peritoneal dialysis at home or at almost any other location. It is done every day. You may need up to five exchanges a day. Each exchange takes about 30 40 minutes. The amount of time the dialysate is in your body between exchanges is called a dwell. The dwell usually lasts 1.5 3 hours and can vary with each person. You may choose to do exchanges at night while you sleep, using a machine called a cycler. Which type of dialysis should I choose? Both types of dialysis have advantages and disadvantages. Talk with your health care provider aboutwhich type of dialysis is best for you. Your lifestyle, preferences, and medical condition should be considered. In some cases, only one type of dialysis can be chosen. Advantages of hemodialysis It is done less often than peritoneal dialysis. Someone else can do the dialysis for you. If you go to a dialysis center: ? Your health care provider can recognize any problems you may be having. ? You can interact with others who are having dialysis. This can provide you with emotional support. Disadvantages of hemodialysis Hemodialysis may cause cramps and low blood pressure. It may leave you feeling tired on the days you have the treatment. If you go to a dialysis center, you will need to make weekly appointments and work around the center s schedule. You will need to take extra care when traveling. If you usually get treatment in a dialysis center,you will need to arrange to visit a dialysis center near your destination. If you are having treatments at home, you will need to take the dialyzer with you when traveling. There are more eating restrictions than with peritoneal dialysis. Advantages of peritoneal dialysis It is less likely than hemodialysis to cause cramps and low blood pressure. There are fewer eating restrictions than with hemodialysis. You may do exchanges on your own wherever you are, including when you travel. Disadvantages of peritoneal dialysis It is done more often than hemodialysis. Doing peritoneal dialysis requires you to have a good use (dexterity) of your hands. You must also be able to lift bags. You must learn how to make your equipment free of germs (sterilization techniques). You will need to use these techniques every day to prevent infection. What changes will I need to make to my diet during dialysis? Both types of dialysis require you to make some changes to your diet. For example, you will need tolimit your intake of foods that contain a lot of phosphorus and potassium. You will also need to limit your fluid intake. A diet and nutrition manager (dietitian) can help you make a meal plan that can help improve your dialysis and your health. What should I expect when starting dialysis? Adjusting to the dialysis treatment, schedule, and diet can take some time. You may need to stop working and may not be able to do some of your normal activities. You may feel anxious or depressed when starting dialysis. Over time, many people feel better overall because of dialysis. You may be able to return to work after making some changes, such as reducing work intensity. Where to find more information National Kidney Foundation: www.kidney.org [place] [employer]ney Patients: www.aakp.org [place] [employer]: www.kidneyfund.org Summary During dialysis, wastes, salt, and extra water are removed from the blood, and the levels of certain minerals in the blood are maintained. There are two types of dialysis: hemodialysis and peritonealdialysis. Hemodialysis is when a machine called a dialyzer is used to filter the blood. Hemodialysis is usually done by a health care provider at a hospital or dialysis center three timesa week. Peritoneal dialysis is when the peritoneum is used as a filter. You may do peritoneal dialysis at home or at almost any other location. Both types of dialysis have advantages and disadvantages. Talk with your health care provider aboutwhich type of dialysis is best for you. This information is not intended to replace advice given to you by your health care provider. Make sure you discuss any questions you have with your health care provider. Document Released: 02/03/2004 Document Revised: 03/31/2020 Document Reviewed: 01/09/2018 [employer] Patient Education 2020 [email or web address]. Central Line Dialysis Access Placement, Care After This sheet gives you information about how to care for yourself after your procedure. Your health care provider may also give you more specific instructions. If you have problems or questions, contact your health care provider. What can I expect after the procedure? After the procedure, it is common to have: Mild pain or discomfort. Mild redness, swelling, or bruising around your incision. A small amount of blood or clear fluid coming from your incision. Follow these instructions at home: Incision care Follow instructions from your health care provider about how to take care of your incision. Make sure you: ? Wash your hands with soap and water before you change your bandage (dressing). If soap and water are not available, use hand lehr tender. ? Change your dressing as told by your health care provider. ? Leave stitches (sutures) in place. Check your incision area every day for signs of infection. Check for: ? More redness, swelling, or pain. ? More fluid or blood. ? Warmth. ? Pus or a bad smell. If directed, put heat on the catheter site as often as told by your health care provider. Use the heat source that your health care provider recommends, such as a moist heat pack or a heating pad. ? Place a towel between your skin and the heat source. ? Leave the heat on for 20 30 minutes. ? Remove the heat if your skin turns bright red. This is especially important if you are unable to feel pain, heat, or cold. You may have a greater risk of getting burned. If directed, put ice on the catheter site: ? Put ice in a plastic bag. ? Place a towel between your skin and the bag. ? Leave the ice on for 20 minutes, 2 3 times a day. Medicines Take umga-sng-idmbsnb and prescription medicines only as told by your health care provider. If you were prescribed an antibiotic medicine, use it as told by your health care provider. Do not stop using the antibiotic even if you start to feel better. Activity Return to your normal activities as told by your health care provider. Ask your health care provider what activities are safe for you. Do not lift anything that is heavier than 10 lb (4.5 kg) until your health care provider says that this is safe. Driving Do not drive for 24 hours if you were given a medicine to help you relax (sedative) during your procedure. Do not drive or use heavy machinery while taking prescription pain medicine. Lifestyle (more content not included)... [id number] Date of Service 11/12/2024 Chief Complaint Diabetic management Subjective Patient seen today, denied any complaints Objective Vitals and Measurements T: 36.7 C (Oral) TMIN: 36.4 C (Oral) TMAX: 37.0 C (Oral) HR: 66 (Monitored) RR: 20 BP: 155/71 SpO2:97% WT: 98.7 kg Intake and Output 7AM Yesterday to 7AM Today Intake and Output (Last 24 hours) Intake Oral Intake 1100.00 Output Urine Voided 700.00 Hemodialysis 2000.00 Stool Count 1.00 Total Summary Total Intake 1100.00 Total Output 2700.00 Fluid Balance -1600.00 Physical Exam General Appearance: Patient appears healthy, well-developed, not in any acute distress. Cardiac: Normal rate and rhythm, S1-S2 heard, no murmurs heard. Lungs: Clear on auscultation bilaterally, no wheezes or rales. Abdomen: Soft nontender, nondistended, no organomegaly. Extremities: No pedal edema. Neurological: Alert ,oriented, no focal deficits. Weight Current Weight Dosing Weight: 91.1 kg (11/11/24) Current Weight: 98.7 kg (11/12/24) Dosing Weight: 93 kg (11/11/24) Current Weight: 100.9 kg (11/11/24) Medications Medications (29) Active Scheduled: (13) aspirin 81 mg EC 81 mg 1 tab(s), Oral, qDayM atorvastatin 40 mg tablet 40 mg 1 tab(s), Oral, qHS ceFAZolin syringe 2 gram(s) 20 mL, IV Push (INT), PREOP pharm clopidogrel 75 mg Tablet 75 mg 1 tab(s), Oral, qDay docusate calcium 240 mg Capsule 240 mg 1 cap(s), Oral, BID escitalopram 5 mg tablet 5 mg 1 tab(s), Oral, qDay heparin 5,000 units/mL (1 mL) vial 5,000 unit(s) 1 mL, Subcutaneous, q12h insulin glargine 15 unit(s) 0.15 mL, Subcutaneous (INT), BID insulin lispro 100 units/mL Soln (3 mL) Give 0-10 units/dose, Subcutaneous, TIDAC metoprolol tartrate 12.5 mg (HALF-TAB) 12.5 mg 1 EA, Oral, BIDM multivitamin (Chromagen Forte) with iron Vitamin B Complex with C, Folic Acid and Iron tablet 1 tab(s), Oral, qDay mupirocin 2% Ointment 22 Gram(s) tube 1 willi, Nostril, each, BID pantoprazole 40 mg EC tablet 40 mg 1 tab(s), Oral, qDayAC Continuous: (0) PRN: (16) acetaminophen 325 mg Tablet 650 mg 2 tab(s), Oral, q4h Al hydrox/Mg hydrox/simethicone 200-200-20 mg/5 mL Susp UD 30 mL, Oral, q2h bisacodyl 10 mg Suppository 10 mg 1 supp, Rectal, qDay bismuth subsalicylate 262 mg/15 mL 240 mL 30 mL, Oral, AsDirected dextrose 50% Solution Disp syringe 50 mL 12.5 gram(s) 25 mL, IV Push, AsDirected dextrose 50% Solution Disp syringe 50 mL 25 g 50 mL, IV Push, AsDirected insulin regular human recombinant 100 units/ml (10 mL) Solution 10 unit(s) 0.1 mL, IV Push, q1h magnesium gluconate 500 mg tablet 500 mg 1 tab(s), Oral, BID magnesium hydroxide 8% Suspension 30 mL UD 30 mL, Oral, qDay magnesium sulfate PMX 2 gram(s) 50 mL, IV Piggyback, AsDirected melatonin 3 mg tablet 3 mg 1 tab(s), Oral, qHS ondansetron 2 mg/ 1 mL 2 mL INJ 4 mg 2 mL, IV Push, q4h oxyCODONE 10 mg Tab (Immediate Release) 10 mg 1 tab(s), Oral, q4h oxycodone 5 mg tablet (immediate release) 5 mg 1 tab(s), Oral, q4h phenol topical 1.4% Spr 1 spray(s), Topical, q1h polyethylene glycol 3350 - UD packet 17 gram(s) 15 mL, Oral, qDay Lab Results 11/12 03:43 WBC: 6.8 Hgb: 9.6 L Hct: 28.1 L Platelet: 222 Neutrophil %: 68.6 Glucose Level: 123 H Sodium Level: 137 Potassium Level: 4.2 BUN: 32.0 H Creatinine Lvl (s): 3.60 H 11/11 05:10 Glucose Level: 144 H Sodium Level: 133 L Potassium Level: 4.2 BUN: 51.0 H Creatinine Lvl (s): 4.98 H EKG No qualifying data available. Assessment/Plan Acute blood loss anemia Acute kidney injury superimposed on chronic kidney disease CAD IN [place] ARTERY S/P CABG X 3 11/06/2024 Chronic kidney disease COPD (chronic obstructive pulmonary disease) DM2 (diabetes mellitus, type 2) GERD (gastroesophageal reflux disease) Hypercholesteremia Hypertension Left carotid stenosis Severe 80-99%per doppler NSTEMI (non-ST elevated myocardial infarction) Thrombocytopenia Orders: insulin degludec(Tresiba FlexTouch 100 units/mL 3 mL subcutaneous solution), 40 unit(s), Subcutaneous, qDay, 3 refills insulin glargine(Lantus), 15 unit(s)= 0.15 mL, Subcutaneous (INT), BID Time Spent 1. Insulin-dependent type 2 diabetes mellitus: Patient was on Tresiba 60 units daily, Jardiance 10 mg, semaglutide 7 mg daily at home -HbA1c 7 on 11/04/2024 Patient is being discharged today,-Jardiance was discontinued because of renal dysfunction. Patientcan continue semaglutide. Tresiba dose was decreased to 40 units daily as he is not requiring much insulin because of his renal dysfunction. He was advised to check his blood glucose at home and follow-up with head of sales promotion as outpatient. 2. Coronary artery disease status post CABG on 11/06/2024 3. Hyperlipidemia on statin: LDL 48 4. Acute kidney injury on CKD stage IV, 5. Severe left carotid artery stenosis 80 to 99%, vascular surgery recommended outpatient follow-up DVT px subcu heparin Digitally Signed by JEFF RIZO MD on 11/12/2024 05:06 PM [id number] Neph[facility] Progress note Date of Service November 12, 2024 Subjective Feels well. No complaints. No shortness of breath. No chest pain. Ambulating. Tolerated dialysis. Objective Vitals and Measurements T: 36.9 C (Oral) TMIN: 36.4 C (Oral) TMAX: 37.0 C (Oral) HR: 75 (Apical) RR: 16 BP: 143/62 SpO2: 96% WT: 98.7 kg Intake and Output 7AM Yesterday to 7AM Today Intake and Output (Last 24 hours) Intake Oral Intake 1100.00 Output Urine Voided 700.00 Hemodialysis 2000.00 Stool Count 1.00 Total Summary Total Intake 1100.00 Total Output 2700.00 Fluid Balance -1600.00 Physical Exam General: No distress on room air HEENT: Mucosa was moist, sclera anicteric, extraocular muscles intact, neck veins were flat, no carotid bruits Lungs: Clear bilaterally Access: Tunneled right internal jugular dialysis catheter. Heart: Regular ectopy. no murmurs rubs or gallops Abdomen: Positive bowel sounds, soft, no palpable masses Extremities: trace-1+ edema, pulses 2+ in all 4 extremities Skin: No rashes, normal turgor Weight Current Weight Dosing Weight: 91.1 kg (11/11/24) Current Weight: 98.7 kg (11/12/24) Dosing Weight: 93 kg (11/11/24) Current Weight: 100.9 kg (11/11/24) Medications Medications (29) Active Scheduled: (13) aspirin 81 mg EC 81 mg 1 tab(s), Oral, qDayM atorvastatin 40 mg tablet 40 mg 1 tab(s), Oral, qHS ceFAZolin syringe 2 gram(s) 20 mL, IV Push (INT), PREOP pharm clopidogrel 75 mg Tablet 75 mg 1 tab(s), Oral, qDay docusate calcium 240 mg Capsule 240 mg 1 cap(s), Oral, BID escitalopram 5 mg tablet 5 mg 1 tab(s), Oral, qDay heparin 5,000 units/mL (1 mL) vial 5,000 unit(s) 1 mL, Subcutaneous, q12h insulin glargine 15 unit(s) 0.15 mL, Subcutaneous (INT), BID insulin lispro 100 units/mL Soln (3 mL) Give 0-10 units/dose, Subcutaneous, TIDAC metoprolol tartrate 12.5 mg (HALF-TAB) 12.5 mg 1 EA, Oral, BIDM multivitamin (Chromagen Forte) with iron Vitamin B Complex with C, Folic Acid and Iron tablet 1 tab(s), Oral, qDay mupirocin 2% Ointment 22 Gram(s) tube 1 willi, Nostril, each, BID pantoprazole 40 mg EC tablet 40 mg 1 tab(s), Oral, qDayAC Continuous: (0) PRN: (16) acetaminophen 325 mg Tablet 650 mg 2 tab(s), Oral, q4h Al hydrox/Mg hydrox/simethicone 200-200-20 mg/5 mL Susp UD 30 mL, Oral, q2h bisacodyl 10 mg Suppository 10 mg 1 supp, Rectal, qDay bismuth subsalicylate 262 mg/15 mL 240 mL 30 mL, Oral, AsDirected dextrose 50% Solution Disp syringe 50 mL 12.5 gram(s) 25 mL, IV Push, AsDirected dextrose 50% Solution Disp syringe 50 mL 25 g 50 mL, IV Push, AsDirected insulin regular human recombinant 100 units/ml (10 mL) Solution 10 unit(s) 0.1 mL, IV Push, q1h magnesium gluconate 500 mg tablet 500 mg 1 tab(s), Oral, BID magnesium hydroxide 8% Suspension 30 mL UD 30 mL, Oral, qDay magnesium sulfate PMX 2 gram(s) 50 mL, IV Piggyback, AsDirected melatonin 3 mg tablet 3 mg 1 tab(s), Oral, qHS ondansetron 2 mg/ 1 mL 2 mL INJ 4 mg 2 mL, IV Push, q4h oxyCODONE 10 mg Tab (Immediate Release) 10 mg 1 tab(s), Oral, q4h oxycodone 5 mg tablet (immediate release) 5 mg 1 tab(s), Oral, q4h phenol topical 1.4% Spr 1 spray(s), Topical, q1h polyethylene glycol 3350 - UD packet 17 gram(s) 15 mL, Oral, qDay Lab Results 11/12 03:43 WBC: 6.8 Hgb: 9.6 L Hct: 28.1 L Platelet: 222 Neutrophil %: 68.6 Glucose Level: 123 H Sodium Level: 137 Potassium Level: 4.2 BUN: 32.0 H Creatinine Lvl (s): 3.60 H 11/11 05:10 Glucose Level: 144 H Sodium Level: 133 L Potassium Level: 4.2 BUN: 51.0 H Creatinine Lvl (s): 4.98 H EKG No qualifying data available. Assessment/Plan 1. Chronic kidney disease stage IV with acute kidney injury: Patient was started on dialysis prior to CABG. Underwent CABG 11/06. Dialysis again on 11/07. Likely patient has progression of chronic kidney disease and will require dialysis upon discharge. Patient had tunneled dialysis catheter placed. He has an outpatient schedule on Wednesdays and Fridays at 1:00. Okay to discharge from a renal standpoint. He will require enteral access creation as an outpatient. He did have vein mapping. 2. Coronary artery disease/non-STEMI: Patient underwent three-vessel CABG 11/06. Currently asymptomatic. Doing well. 3. Anemia: This is multifactorial including chronic kidney disease. Will dose Epogen with dialysis. Digitally Signed by EDWARD GRANADOS MD on 11/12/2024 10:14 AM [facility] [id number] Note Date of Service 11/12/2024 AV temporary pacing wires cut and dropped. Patient tolerated well. Bedrest x 1 hour Digitally Signed by DENISE CHAVEZ APRN-FEATHER STITCHER on 11/12/2024 09:31 AM [facility] [id number] Note* Exam Date Time Procedure Performing Provider Status 11/12/24 6:28 AM VL Preop Dialysis Ve n/Art Map LAUREEN Ng MD; Auth (Verified) [facility] [id number] Note* Exam Date Time Procedure Performing Provider Status 11/12/24 5:32 AM XR Chest 1 View Auth (Ve rified) [id number] ORIGINAL EXAMINATION: ONE XRAY VIEW OF THE CHEST11/12/2024 5:32 am COMPARISON: 11/11/2024, 11/10/2024 HISTORY: ORDERING SYSTEM PROVIDED HISTORY: Reason for Exam: decreased breath sounds FINDINGS: Right internal jugular dialysis catheter and left subclavian central venous catheter are in stable position. The cardiomediastinal contours are stable. Atherosclerosis of the aorta. Small bilateral pleural effusions are unchanged. Left basilar atelectasis is again seen. No focal area consolidation or visible pneumothorax. The osseous structures appear unchanged. IMPRESSION: Stable small bilateral pleural effusions and left basilar atelectasis. I have personally reviewed the images of this examination, and agree with the resident's findings and interpretation. Interpreted by: Lorenzo Mccarthy MD Preliminary Report By: Josh Howell Electronically signed By Lorenzo Mccarthy MD Dictated Date: 11/12/2024 5:34:01 AM Prelim Date: 11/12/2024 5:38:20 AM Sign Date: 11/12/2024 5:51:15 AM Ordering Provider: [facility]12-16-2024 NoteORIGINAL PROCEDURE: CONVERSION OF TEMPORARY TO TUNNELED HEMODIALYSIS CATHETER WITH [id number]/16/2024 2:33 pm CLINICAL STATEMENT: CKD COMPARISON: Temporary dialysis catheter placed on 11/05/2024 MATERIALS 23 cm cuff to tip; 14.5 Fr X 28 hemo flow double lumen catheter. Dermabond 2-0 Ethibond suture. ANESTHESIA: Local FLUOROSCOPY: 0.8 minutes Total Air Kerma Dose: 14.41 mGy. EXISTING ACCESS SITE: Right internal jugular vein PROCEDURE The procedure, risks, limitations, and alternatives were discussed. All questions were answered. Written informed consent obtained. Accompanying paperwork was verified for accuracy. Directed history and physical exam performed prior to the procedure. Medication reconciliation was performed by nursing personnel. Procedure was performed using a cap, sterile gown, sterile gloves, a large sterile sheet, hand hygiene and chlorhexidine for cutaneous antisepsis. The patient was positioned supine on the angiographic table and prepped and draped in usual sterile fashion. A critical pause was performed with assisting personnel just prior to the procedure with the patient's identity confirmed using 2 identifiers, confirming site and side. A wire was placed through the existing catheter into the IVC. The old catheter was exchanged for a peel away sheath after dilatation of the tract over the wire. The catheter length was estimated with the wire including the tunnel length. The planned tunnel in the upper chest was anesthetized with 2% lidocaine with epinephrine. A dermatotomy was made. The catheter was tunneled from the dermatotomy to the neck access site. The catheter was advanced through the peel away sheath, which was subsequently removed. The cuff is located adjacent to the catheter site in the upper chest to facilitate easier removal in the future. Both lumens aspirate and flush very quickly. Both lumens were flushed with saline. Sterile caps attached. Fluoroscopy demonstrates the catheter tip in the upper right atrium. A documentation fluoroscopic image obtained. The catheter was fixed to the skin with suture. A sterile dressing was applied. COMPLICATIONS: None. EBL: Less than 10 mL. PATIENT CONDITION: Stable, unchanged. IMPRESSION: Successful conversion of a temporary to tunneled hemodialysis catheter with the tip in the upper right atrium. The procedure was performed by Ivette Kyle, Physician Director [employer]. I concur with the contents of the report. Interpreted by: Elaine Alcala MD Preliminary Report By: Ivette Kyle PA-C Electronically signed By Elaine Alcala MD Dictated Date: 11/11/2024 5:29:00 PM Prelim Date: 11/11/2024 5:34:45 PM Sign Date: 11/11/2024 7:57:16 PM Ordering Provider: [facility]12-16-2024 Note Date of Service 11/11/2024 Chief Complaint Diabetic management Subjective Patient seen today, tolerating diet, denies any abdominal pain, nausea or vomiting Objective Vitals and Measurements T: 36.7 C (Skin) TMIN: 36.7 C (Skin) TMAX: 37.0 C (Oral) HR: 74 (Monitored) RR: 18 BP: 141/82 SpO2:97% WT: 93 kg Intake and Output 7AM Yesterday to 7AM Today Intake and Output (Last 24 hours) Intake Oral Intake 600.00 Output Urine Voided 650.00 Stool Count 1.00 Total Summary Total Intake 600.00 Total Output 650.00 Fluid Balance -50.00 Physical Exam General Appearance: Patient appears healthy, well-developed, not in any acute distress. Cardiac: Normal rate and rhythm, S1-S2 heard, no murmurs heard. Lungs: Clear on auscultation bilaterally, no wheezes or rales. Abdomen: Soft nontender, nondistended, no organomegaly. Extremities: No pedal edema. Neurological: Alert ,oriented, no focal deficits. Weight Current Weight Dosing Weight: 93 kg (11/11/24) Current Weight: 100.9 kg (11/11/24) Dosing Weight: 99.4 kg (11/10/24) Current Weight: 100.7 kg (11/09/24) Medications Medications (30) Active Scheduled: (14) albumin human 25% (50 mL) vial 12.5 gram(s) 50 mL, IV Piggyback (MED), prep pharm aspirin 81 mg EC 81 mg 1 tab(s), Oral, qDayM atorvastatin 40 mg tablet 40 mg 1 tab(s), Oral, qHS ceFAZolin syringe 2 gram(s) 20 mL, IV Push (INT), PREOP pharm clopidogrel 75 mg Tablet 75 mg 1 tab(s), Oral, qDay docusate calcium 240 mg Capsule 240 mg 1 cap(s), Oral, BID escitalopram 5 mg tablet 5 mg 1 tab(s), Oral, qDay heparin 5,000 units/mL (1 mL) vial 5,000 unit(s) 1 mL, Subcutaneous, q12h insulin glargine 10 unit(s) 0.1 mL, Subcutaneous (INT), BID insulin lispro 100 units/mL Soln (3 mL) Give 0-10 units/dose, Subcutaneous, TIDAC metoprolol tartrate 12.5 mg (HALF-TAB) 12.5 mg 1 EA, Oral, BIDM multivitamin (Chromagen Forte) with iron Vitamin B Complex with C, Folic Acid and Iron tablet 1 tab(s), Oral, qDay mupirocin 2% Ointment 22 Gram(s) tube 1 willi, Nostril, each, BID pantoprazole 40 mg EC tablet 40 mg 1 tab(s), Oral, qDayAC Continuous: (0) PRN: (16) acetaminophen 325 mg Tablet 650 mg 2 tab(s), Oral, q4h Al hydrox/Mg hydrox/simethicone 200-200-20 mg/5 mL Susp UD 30 mL, Oral, q2h bisacodyl 10 mg Suppository 10 mg 1 supp, Rectal, qDay bismuth subsalicylate 262 mg/15 mL 240 mL 30 mL, Oral, AsDirected dextrose 50% Solution Disp syringe 50 mL 12.5 gram(s) 25 mL, IV Push, AsDirected dextrose 50% Solution Disp syringe 50 mL 25 g 50 mL, IV Push, AsDirected insulin regular human recombinant 100 units/ml (10 mL) Solution 10 unit(s) 0.1 mL, IV Push, q1h magnesium gluconate 500 mg tablet 500 mg 1 tab(s), Oral, BID magnesium hydroxide 8% Suspension 30 mL UD 30 mL, Oral, qDay magnesium sulfate PMX 2 gram(s) 50 mL, IV Piggyback, AsDirected melatonin 3 mg tablet 3 mg 1 tab(s), Oral, qHS ondansetron 2 mg/ 1 mL 2 mL INJ 4 mg 2 mL, IV Push, q4h oxyCODONE 10 mg Tab (Immediate Release) 10 mg 1 tab(s), Oral, q4h oxycodone 5 mg tablet (immediate release) 5 mg 1 tab(s), Oral, q4h phenol topical 1.4% Spr 1 spray(s), Topical, q1h polyethylene glycol 3350 - UD packet 17 gram(s) 15 mL, Oral, qDay Lab Results 11/11 05:10 Glucose Level: 144 H Sodium Level: 133 L Potassium Level: 4.2 BUN: 51.0 H Creatinine Lvl (s): 4.98 H 11/10 05:31 WBC: 7.6 Hgb: 9.5 L Hct: 27.9 L Platelet: 158 Neutrophil %: 72.6 Glucose Level: 133 H Sodium Level: 135 L Potassium Level: 4.1 BUN: 41.0 H Creatinine Lvl (s): 4.42 H EKG No qualifying data available. Assessment/Plan Acute blood loss anemia Acute kidney injury superimposed on chronic kidney disease CAD IN [place] ART[place] S/P CABG X 3 11/06/2024 Chronic kidney disease COPD (chronic obstructive pulmonary disease) DM2 (diabetes mellitus, type 2) GERD (gastroesophageal reflux disease) Hypercholesteremia Hypertension Left carotid stenosis Severe 80-99%per doppler NSTEMI (non-ST elevated myocardial infarction) Thrombocytopenia Orders: insulin glargine(Lantus), 10 unit(s)= 0.1 mL, Subcutaneous (INT), BID Time Spent 1. Insulin-dependent type 2 diabetes mellitus: Patient was on Tresiba 60 units daily, Jardiance 10 mg, semaglutide 7 mg daily at home -Continue Lantus 10 units twice daily and insulin sliding scale -Hold Jardiance because of JIMMY. Jardiance will be discontinued as GFR is less than 20. -HbA1c 7 on 11/04/2024 2. Coronary artery disease status post CABG on 11/06/2024 3. Hyperlipidemia on statin: LDL 48 4. Acute kidney injury on CKD stage IV, nephrology following, currently getting hemodialysis 5. Severe left carotid artery stenosis 80 to 99%, vascular surgery recommended outpatient follow-up DVT px subcu heparin Digitally Signed by JEFF RIZO MD on 11/11/2024 04:36 PM [facility] [id number] Note IR Procedure Record Summary Primary Physician: IVETTE KYLE PA-C Finalized Date/Time: 11/11/24 11:43:49 Pt. Name: VEL NICHOLS Cassidy Linares./Sex: 1960 Male Med Rec #: [id number] Physician: SALMA AYOUB MD Financial #: [id number] Pt. Type: I Room/Bed: [facility] [place][note 2]/ Admit/Disch: 11/04/24 04:16:00 - Institution: Allergies identified in patient's electronic medical record at time of printing on 11/11/24 Entry 1 Entry 2 Substance Bee Stings lisinopril Reaction Type Allergy Side Effect Last Modified By: ADRIANA Tompkins 10/15/16 Jeanne Perla MA 00:55:08 (ABR-OE) 05/25/23 13:56:01 Case Attendance- IR Entry 1 Entry 2 Entry 3 Case Attendee IVETTE KYLE PA-C, Jennifer N Ritchey, Logan PCT RN Role Performed Primary Surgeon Procedure Nurse Scrub Technologist Details Time In 11/11/24 11:11:00 11/11/24 11:11:00 11/11/24 10:49:00 Time Out 11/11/24 11:29:00 11/11/24 11:39:00 11/11/24 11:39:00 Procedure/Preference IR Tunneled HD (SN) IR Tunneled HD (SN) IR Tunneled HD (SN) Card Last Modified By: Zurdo Hardin Tech Craemer, Zurdo Tech Craemer, Zurdo Tech 11/11/24 11:39:53 11/11/24 11:39:53 11/11/24 11:39:53 Entry 4 Case Attendee Zurdo Hardin Role Performed Circulating Technologist Details Time In 11/11/24 10:49:00 Time Out 11/11/24 11:39:00 Procedure/Preference IR Tunneled HD (SN) Card Last Modified By: Zurdo Hardin 11/11/24 11:39:53 Radiology Procedures- IR Entry 1 Procedure/Preference IR Tunneled HD (SN) Actual Procedure ir tunneled HD Card Primary Procedure Yes Primary Surgeon IVETTE KYLE PA-C Anesthesia/Sedation Local Type Additional Procedure Times Start 11/11/24 11:11:00 Stop 11/11/24 11:30:00 Specialty Service SN Radiology Procedure EBL 2 mL Last Modified By: Zurdo Hardin 11/11/24 11:30:08 Radiology Procedure Details - IR Entry 1 Radiology Sedation Case Times Sedation Total Time 0 minutes Radiology - Fluid/Drainage Radiology Contrast Contrast Used? No Radiology Flouroscopy Fluoroscopy Used? Yes Fluoro Dose (mGy) 14.41 Fluoro Time 0.8 min Radiology Local Local Used? Yes Local Type: lido w/ epi Local Dose 20 mL Radiology Procedure Site Site/Location right IJ Site Condition No complications Suture 2.0 Ethibond Suture, Dressing Type Gauze sponge 4 X 4, Liquiband Skin Adhesive Transparent Technologist Notes 14.5F x 28 cm hemo-flow (23cm cuff to tip) Last Modified By: Zurdo Hardin 11/11/24 11:35:20 General Case Data - IR Entry 1 Case Information Room IR 18 Case Level IR Level 2 Wound Class None Specialty SN Radiology Procedure ASA Class None Diagnosis Preop Diagnosis outpatient dialysis Postop Same As Preop Yes Postop Diagnosis outpatient dialysis Last Modified By: Zurdo Hardin 11/11/24 11:24:47 Procedure Case Times- IR Entry 1 Patient In Procedure Patient In OR 11/11/24 10:49:00 Patient Out of OR 11/11/24 11:39:00 Procedure Start/Stop Procedure Start Time 11/11/24 11:11:00 Procedure Stop Time 11/11/24 11:29:00 Last Modified By: Zurdo Hardin 11/11/24 11:39:51 Immediate Post OP Note - IR Entry 1 Immediate Post Yes Findings 14.5F x 28 cm hemo-flow Procedure Note (23cm cuff to tip) displayed for Physician to review Closure Technique Closure Technique Other than Primary Last Modified By: Zurdo Hardin 11/11/24 11:30:03 Immediate Post OP Note - IR Signed By: IVETTE KYLE PA-C 11/11/24 11:29 No Complications Allergy Information- IR Entry 1 Allergies Reviewed? Yes Allergies Reviewed Patient With Last Modified By: Nolvia Monreal RN 11/11/24 11:11:40 Radiology Protocols/Time Out- IR Entry 1 Preprocedure Clinician Verifies Correct patient ID When Clinically Confirmation of correct using name & date Indicated side(s) and site(s), or MRN, Accurate Correct diagnostic and procedure, complete radiology tests Informed Consent, H & P available, Preop update immediately antibiotics sent with prior to procedure, if patient/available in OR applicable, Clinical team introduction complete OR/Procedure Room/Bedside Time 11/11/24 11:11:00 Clinician Verifies Correct patient identity including EMR & records using name and date or medical record number, Accurate procedure consent form, Correct patient position, Necessary equipment is available, Anticipated non-routine events with surgical team (case duration, estimated blood loss, patient specific concerns)., Long patient factors for recovery and management identified with surgical team. When Applicable Confirmation correct Team Members Nolvia Monreal side and site marked, Present for Time Out SAROJ WRIGHT KATARINA Relevant images and Eber RAUSCH Logan results are properly PCT, Zurdo Hardin labeled and Tech appropriately displayed, Confirm/obtain preop antibiotic order., Alcohol based prep dry, Double verification of sterility indicators complete Instrument Sterility Team Members IVETTE KYLE Verifying Sterility Eber RAUSCH Logan PCT Procedure IR Tunneled HD (SN) Last Modified By: Nolvia Monreal RN 11/11/24 11:13:25 Skin Prep- IR Entry 1 Procedure IR Tunneled HD (SN) Skin Prep Prep Area Neck Side Right By Brody Velázquez PCT Prep Agents Chloraprep Hair Removal Method N/A Last Modified By: Nolvia Monreal RN 11/11/24 11:13:52 Patient Positioning- IR Entry 1 Procedure IR Tunneled HD (SN) Body Position OP Supine Feet Uncrossed? Yes Pressure Points Yes Checked Last Modified By: Nolvia Monreal RN 11/11/24 11:14:15 Radiology Procedure Plan - IR Entry 1 Radiology - Nursing Care Plan Outcome Statement The patient Outcome Statement The patient receives demonstrates knowledge Cont. appropriate of the expected medication(s), safely responses to the administered during the operative/invasive perioperative/invasive procedure., The period., The patient is patient's value system, free from signs and lifestyle, ethnicity, symptoms of injury and culture are caused by extraneous considered, respected, objects (equipment, and incorporated in the instrumentation, perioperative plan of sponges, or sharps). care., The patient is free from signs and symptoms of infection., The patient is free from signs and symptoms of injury related to positioning. Radiology - Action Plan Outcomes Met? Yes Biological Inspector Nolvia Monreal micro[employer] exchange administrator Plan Last Modified By: Nolvia Monreal RN 11/11/24 11:14:37 Case Comments Finalized By: Zurdo Hardin Document Signatures Signed By: Zurdo Hardin 11/11/24 11:39 Zurdo Hardin 11/11/24 11:43 [facility] [id number] Procedure note IR Brief Post Procedure Note Preprocedure Dx: CKD Postprocedure Dx: same Procedure: Tempo to perm dialysis conversion Anesthesia: Local EBL: Minimal Complications: None Status: Unchanged Findings 1. Temporary dialysis catheter converted to 14.5 Slovak X 28 cm Permanent dialysis catheter Plan 1. May use now Ivette Kyle PA-C Interventional Radiology Pager: [phone] IR dept: x [phone] Available on [employer] Digitally Signed by IVETTE KYLE PA-C on 11/11/2024 11:35 AM [facility] [id number] Note* Exam Date Time Procedure Performing Provider Status 11/11/24 11:25 AM IR Tunneled HD Auth (Ve rified) [id number] ORIGINAL PROCEDURE: CONVERSION OF TEMPORARY TO TUNNELED HEMODIALYSIS CATHETER WITH [id number]/16/2024 2:33 pm CLINICAL STATEMENT: CKD COMPARISON: Temporary dialysis catheter placed on 11/05/2024 MATERIALS 23 cm cuff to tip; 14.5 Fr X 28 hemo flow double lumen catheter. Dermabond 2-0 Ethibond suture. ANESTHESIA: Local FLUOROSCOPY: 0.8 minutes Total Air Kerma Dose: 14.41 mGy. EXISTING ACCESS SITE: Right internal jugular vein PROCEDURE The procedure, risks, limitations, and alternatives were discussed. All questions were answered. Written informed consent obtained. Accompanying paperwork was verified for accuracy. Directed history and physical exam performed prior to the procedure. Medication reconciliation was performed by nursing personnel. Procedure was performed using a cap, sterile gown, sterile gloves, a large sterile sheet, hand hygiene and chlorhexidine for cutaneous antisepsis. The patient was positioned supine on the angiographic table and prepped and draped in usual sterile fashion. A critical pause was performed with assisting personnel just prior to the procedure with the patient's identity confirmed using 2 identifiers, confirming site and side. A wire was placed through the existing catheter into the IVC. The old catheter was exchanged for a peel away sheath after dilatation of the tract over the wire. The catheter length was estimated with the wire including the tunnel length. The planned tunnel in the upper chest was anesthetized with 2% lidocaine with epinephrine. A dermatotomy was made. The catheter was tunneled from the dermatotomy to the neck access site. The catheter was advanced through the peel away sheath, which was subsequently removed. The cuff is located adjacent to the catheter site in the upper chest to facilitate easier removal in the future. Both lumens aspirate and flush very quickly. Both lumens were flushed with saline. Sterile caps attached. Fluoroscopy demonstrates the catheter tip in the upper right atrium. A documentation fluoroscopic image obtained. The catheter was fixed to the skin with suture. A sterile dressing was applied. COMPLICATIONS: None. EBL: Less than 10 mL. PATIENT CONDITION: Stable, unchanged. IMPRESSION: Successful conversion of a temporary to tunneled hemodialysis catheter with the tip in the upper right atrium. The procedure was performed by Ivette Kyle, Physician Director [employer]. I concur with the contents of the report. Interpreted by: Elaine Alcala MD Preliminary Report By: Ivette Kyle PA-C Electronically signed By Elaine Alcala MD Dictated Date: 11/11/2024 5:29:00 PM Prelim Date: 11/11/2024 5:34:45 PM Sign Date: 11/11/2024 7:57:16 PM Ordering Provider: EDWARD ROBERTA [id number] Note Date of Service 11/11/2024 POD #5 Chief Complaint This is a 64-year-old male with a history of CAD status post 2 MIs in the past with stents, hypertension, COPD, hypothyroidism, chronic kidney disease stage IV, anxiety, and tobacco use. He presentedwith stabbing chest pain with radiation to his jaw. BNP T on admission 7824. Troponin level 146 with peak 984. Heart catheterization showed multivessel disease. Nephrology consulted for acute on chronic kidney disease. Received his first hemodialysis treatment on 11/05/2024. On 11/06/2024 he underwent a coronary bypass graft x 3 with MAX to the LAD and reverse saphenous vein graft to the marginal and PDA per Dr. Domingo. He tolerated the procedure well was transferred to CV SICU in stable condition. He required 1 unit of RBCs and 1 unit of platelets. He was on norepinephrine and epinephrinefor blood pressure support. Extubated on operative night. POD #1 norepinephrine and epinephrine have been weaned off. Started on midodrine 10 mg 3 times daily. H&H 7.8 and 23.2. Transfused 1 unitpacked RBCs. Lidocaine drip discontinued. Plavix started. POD #2 chest tubes discontinued. POD #3 dialysis completed. Systolic blood pressure 150-160. Midodrine discontinued. Planning outpatient dialysis at [facility]. Transferred to [facility]. POD #4 ambulated in the halls. No complaints. POD #5 awaiting tunneled catheter. Plan dialysis today. Subjective Up in chair, no complaints Objective Vitals and Measurements T: 36.8 C (Oral) TMIN: 36.6 C (Oral) TMAX: 36.9 C (Oral) HR: 65 (Apical) RR: 16 BP: 148/80 SpO2: 95% WT: 100.9 kg Intake and Output 7AM Yesterday to 7AM Today Intake and Output (Last 24 hours) Intake Oral Intake 120.00 Output Urine Voided 300.00 Stool Count 0.00 Total Summary Total Intake 120.00 Total Output 300.00 Fluid Balance -180.00 Physical Exam Neurological: Alert and orient x 3, appropriate Lungs: Clear, on room air Heart: Regular S1-S2, NSR rate 70s, temperature AV wires intact Abdomen: Soft, positive bowel sounds, positive BM Extremities: Well-perfused, trace to 1+ edema Incisions: Midsternal right leg without drainage Disposition: Home with Weight Current Weight Dosing Weight: 99.4 kg (11/10/24) Current Weight: 100.9 kg (11/11/24) Dosing Weight: 94.2 kg (11/09/24) Current Weight: 100.7 kg (11/09/24) Medications Medications (32) Active Scheduled: (16) albumin human 25% (50 mL) vial 12.5 gram(s) 50 mL, IV Piggyback (MED), prep pharm aspirin 81 mg EC 81 mg 1 tab(s), Oral, qDayM atorvastatin 40 mg tablet 40 mg 1 tab(s), Oral, qHS ceFAZolin syringe 2 gram(s) 20 mL, IV Push (INT), PREOP pharm ceFAZolin syringe 2 gram(s) 20 mL, IV Push (INT), PREOP pharm clopidogrel 75 mg Tablet 75 mg 1 tab(s), Oral, qDay docusate calcium 240 mg Capsule 240 mg 1 cap(s), Oral, BID epoetin maci epbx 10,000 units/mL (pf) vial - NEPH 10,000 unit(s) 1 mL, IV Push, prep pharm escitalopram 5 mg tablet 5 mg 1 tab(s), Oral, qDay heparin 5,000 units/mL (1 mL) vial 5,000 unit(s) 1 mL, Subcutaneous, q12h insulin glargine 5 unit(s) 0.05 mL, Subcutaneous (INT), BID insulin lispro 100 units/mL Soln (3 mL) Give 0-10 units/dose, Subcutaneous, TIDAC metoprolol tartrate 12.5 mg (HALF-TAB) 12.5 mg 1 EA, Oral, BIDM multivitamin (Chromagen Forte) with iron Vitamin B Complex with C, Folic Acid and Iron tablet 1 tab(s), Oral, qDay mupirocin 2% Ointment 22 Gram(s) tube 1 willi, Nostril, each, BID pantoprazole 40 mg EC tablet 40 mg 1 tab(s), Oral, qDayAC Continuous: (0) PRN: (16) acetaminophen 325 mg Tablet 650 mg 2 tab(s), Oral, q4h Al hydrox/Mg hydrox/simethicone 200-200-20 mg/5 mL Susp UD 30 mL, Oral, q2h bisacodyl 10 mg Suppository 10 mg 1 supp, Rectal, qDay bismuth subsalicylate 262 mg/15 mL 240 mL 30 mL, Oral, AsDirected dextrose 50% Solution Disp syringe 50 mL 12.5 gram(s) 25 mL, IV Push, AsDirected dextrose 50% Solution Disp syringe 50 mL 25 g 50 mL, IV Push, AsDirected insulin regular human recombinant 100 units/ml (10 mL) Solution 10 unit(s) 0.1 mL, IV Push, q1h magnesium gluconate 500 mg tablet 500 mg 1 tab(s), Oral, BID magnesium hydroxide 8% Suspension 30 mL UD 30 mL, Oral, qDay magnesium sulfate PMX 2 gram(s) 50 mL, IV Piggyback, AsDirected melatonin 3 mg tablet 3 mg 1 tab(s), Oral, qHS ondansetron 2 mg/ 1 mL 2 mL INJ 4 mg 2 mL, IV Push, q4h oxyCODONE 10 mg Tab (Immediate Release) 10 mg 1 tab(s), Oral, q4h oxycodone 5 mg tablet (immediate release) 5 mg 1 tab(s), Oral, q4h phenol topical 1.4% Spr 1 spray(s), Topical, q1h polyethylene glycol 3350 - UD packet 17 gram(s) 15 mL, Oral, qDay Lab Results 11/11 05:10 Glucose Level: 144 H Sodium Level: 133 L Potassium Level: 4.2 BUN: 51.0 H Creatinine Lvl (s): 4.98 H 11/10 05:31 WBC: 7.6 Hgb: 9.5 L Hct: 27.9 L Platelet: 158 Neutrophil %: 72.6 Glucose Level: 133 H Sodium Level: 135 L Potassium Level: 4.1 BUN: 41.0 H Creatinine Lvl (s): 4.42 H Imaging Results and Diagnostics XR Chest 1 View Result Date: November 11, 2024 Verified By: JESSICA GUERRA, LORENZO Baron CLINICAL STATEMENT: IMPRESSION: Stable small bilateral pleural effusions and mild left basilar atelectasis. Assessment/Plan 1. CAD IN [place] ARTERY S/P CABG X 3 11/06/2024 ASA, metoprolol, Plavix, atorvastatin 2. NSTEMI (non-ST elevated myocardial infarction) Plavix 3. Acute blood loss anemia Stable, H&H 9.5 and 27.9 4. Acute kidney injury superimposed on chronic kidney disease Nephrology following, dialysis today, awaiting tunneled catheter 5. COPD (chronic obstructive pulmonary disease) On room air 6. DM2 (diabetes mellitus, type 2) Glucose 132-241, [place] endocrine assistance following 7. GERD (gastroesophageal reflux disease) Protonix 8. Hypercholesteremia Atorvastatin 9. Hypertension Blood pressure 130/72-156/65, midodrine discontinued 10. Left carotid stenosis Severe 80-99%per doppler Follow-up with vascular surgeon 11. Thrombocytopenia Resolved Discussed with Dr. Bell Midodrine discontinued Discharge once tunneled catheter placed for dialysis Digitally Signed by MECHELLE PEREZ on 11/11/2024 09:33 AM [facility] [id number] Nephrology Progress note Date of Service November 11, 2024 Subjective No complaints. Sitting up in chair. On room air. Good appetite. No nausea. No chest pain. Objective Vitals and Measurements T: 36.8 C (Oral) TMIN: 36.6 C (Oral) TMAX: 36.9 C (Oral) HR: 65 (Apical) RR: 16 BP: 148/80 SpO2: 95% WT: 100.9 kg Intake and Output 7AM Yesterday to 7AM Today Intake and Output (Last 24 hours) Intake Oral Intake 120.00 Output Urine Voided 300.00 Stool Count 0.00 Total Summary Total Intake 120.00 Total Output 300.00 Fluid Balance -180.00 Physical Exam General: No distress on room air HEENT: Mucosa was moist, sclera anicteric, extraocular muscles intact, neck veins were flat, no carotid bruits Lungs: Clear bilaterally Access: Temporary right internal jugular dialysis catheter. Heart: Regular ectopy. no murmurs rubs or gallops Abdomen: Positive bowel sounds, soft, no palpable masses Extremities: trace-1+ edema, pulses 2+ in all 4 extremities Skin: No rashes, normal turgor Weight Current Weight Dosing Weight: 99.4 kg (11/10/24) Current Weight: 100.9 kg (11/11/24) Dosing Weight: 94.2 kg (11/09/24) Current Weight: 100.7 kg (11/09/24) Medications Medications (31) Active Scheduled: (14) albumin human 12.5 gram(s) 50 mL, IV Piggyback (MED), prep pharm aspirin 81 mg EC 81 mg 1 tab(s), Oral, qDayM atorvastatin 40 mg tablet 40 mg 1 tab(s), Oral, qHS clopidogrel 75 mg Tablet 75 mg 1 tab(s), Oral, qDay docusate calcium 240 mg Capsule 240 mg 1 cap(s), Oral, BID epoetin maci epbx 10,000 units/mL (pf) vial - NEPH 10,000 unit(s) 1 mL, IV Push, prep pharm escitalopram 5 mg tablet 5 mg 1 tab(s), Oral, qDay heparin 5,000 units/mL (1 mL) vial 5,000 unit(s) 1 mL, Subcutaneous, q12h insulin glargine 5 unit(s) 0.05 mL, Subcutaneous (INT), BID insulin lispro 100 units/mL Soln (3 mL) Give 0-10 units/dose, Subcutaneous, TIDAC metoprolol tartrate 12.5 mg (HALF-TAB) 12.5 mg 1 EA, Oral, BIDM multivitamin (Chromagen Forte) with iron Vitamin B Complex with C, Folic Acid and Iron tablet 1 tab(s), Oral, qDay mupirocin 2% Ointment 22 Gram(s) tube 1 willi, Nostril, each, BID pantoprazole 40 mg EC tablet 40 mg 1 tab(s), Oral, qDayAC Continuous: (1) norepinephrine 8 mg [2 mcg/min] + NS Premix Diluent 250 mL 250 mL, Intravenous, 3.75 mL/hr PRN: (16) acetaminophen 325 mg Tablet 650 mg 2 tab(s), Oral, q4h Al hydrox/Mg hydrox/simethicone 200-200-20 mg/5 mL Susp UD 30 mL, Oral, q2h bisacodyl 10 mg Suppository 10 mg 1 supp, Rectal, qDay bismuth subsalicylate 262 mg/15 mL 240 mL 30 mL, Oral, AsDirected dextrose 50% Solution Disp syringe 50 mL 12.5 gram(s) 25 mL, IV Push, AsDirected dextrose 50% Solution Disp syringe 50 mL 25 g 50 mL, IV Push, AsDirected insulin regular human recombinant 100 units/ml (10 mL) Solution 10 unit(s) 0.1 mL, IV Push, q1h magnesium gluconate 500 mg tablet 500 mg 1 tab(s), Oral, BID magnesium hydroxide 8% Suspension 30 mL UD 30 mL, Oral, qDay magnesium sulfate PMX 2 gram(s) 50 mL, IV Piggyback, AsDirected melatonin 3 mg tablet 3 mg 1 tab(s), Oral, qHS ondansetron 2 mg/ 1 mL 2 mL INJ 4 mg 2 mL, IV Push, q4h oxyCODONE 10 mg Tab (Immediate Release) 10 mg 1 tab(s), Oral, q4h oxycodone 5 mg tablet (immediate release) 5 mg 1 tab(s), Oral, q4h phenol topical 1.4% Spr 1 spray(s), Topical, q1h polyethylene glycol 3350 - UD packet 17 gram(s) 15 mL, Oral, qDay Lab Results 11/11 05:10 Glucose Level: 144 H Sodium Level: 133 L Potassium Level: 4.2 BUN: 51.0 H Creatinine Lvl (s): 4.98 H 11/10 05:31 WBC: 7.6 Hgb: 9.5 L Hct: 27.9 L Platelet: 158 Neutrophil %: 72.6 Glucose Level: 133 H Sodium Level: 135 L Potassium Level: 4.1 BUN: 41.0 H Creatinine Lvl (s): 4.42 H EKG No qualifying data available. Assessment/Plan 1. Chronic kidney disease stage IV with acute kidney injury: Patient was started on dialysis prior to CABG. Underwent CABG 11/06. Dialysis again on 11/07. Likely patient has progression of chronic kidney disease and will require dialysis upon discharge. Plan dialysis today. Will also ask interventional radiology to change temporary dialysis catheter to tunneled. He eventually will require a fistula. Plan for vein mapping today. 2. Coronary artery disease/non-STEMI: Patient underwent three-vessel CABG 11/06. Currently asymptomatic. Doing well. 3. Anemia: This is multifactorial including chronic kidney disease. Will dose Epogen with dialysis. Digitally Signed by EDWARD GRANADOS MD on 11/11/2024 08:52 AM Digitally Signed by EDWARD GRANADOS MD on 11/11/2024 08:55 AM [facility] [id number] Note* Exam Date Time Procedure Performing Provider Status 11/11/24 5:36 AM XR Chest 1 View Auth (Dana rifalvino) [id number] ORIGINAL EXAMINATION: ONE XRAY VIEW OF THE CHEST 11/11/2024 5:36 am COMPARISON: Chest x-ray on 11/10/2024 HISTORY: ORDERING SYSTEM PROVIDED HISTORY: Reason for Exam: Vascular congestion FINDINGS: Right internal jugular dialysis catheter tip is in the right atrium. Left subclavian central venous catheter tip is in the superior vena cava. The heart size is normal. Small bilateral pleural effusions are unchanged. There is mild atelectasis at the left lung base that is stable. No significant right lung infiltrate is present. There is no pulmonary edema. No pneumothorax is visible. IMPRESSION: Stable small bilateral pleural effusions and mild left basilar atelectasis. Interpreted by: Lorenzo Mccarthy MD Preliminary Report By: Lorenzo Mccarthy MD Electronically signed By Lorenzo Mccarthy MD Dictated Date: 11/11/2024 5:50:04 AM Prelim Date: 11/11/2024 5:51:27 AM Sign Date: 11/11/2024 5:51:27 AM Ordering Provider: [facility]12-15-2024 Note Date of Service 11/10/2024 Chief Complaint POD #4 This is a 64-year-old male with past medical history of CAD status post 2 MIs in the past and stents, hypertension, COPD, hypothyroidism, chronic kidney disease stage IV, anxiety, history of tobacco use presented with stabbing type chest pain that was radiating to his jaw. Patient states that he has been experiencing chest pain stabbing in nature for the past 6 weeks but it would subside with rest. This was the first time it radiated up into his jaw and did not go away when he would rest. He has also had emesis but not related to the chest pain. He thinks the emesis is related to his new medication Jardiance. On admission his BNP was 7824, troponins at 146 and then peaked at 984. He was admitted as a NSTEMI for further evaluation, had a left heart catheterization which demonstrated multivessel disease. Nephrology is following along for acute on chronic kidney disease. He received his first hemodialysis treatment on 11/05/2024. On November 06, 2024, he underwent CABG x 3 using MAX to LAD and reverse saphenous vein graft to marginal and PDA per Dr. Domingo. He tolerated the surgery well and was transferred to the cardiovascular ICU. Transfused with 1 unit RBC and 1 unit platelet. Required the use of norepinephrine and epinephrine drips postoperatively for blood pressure control.Liberated from mechanical ventilation operative evening. POD #1: Blood pressures ranging 97/43 to 126/51. Norepinephrine drip and epinephrine drips have been weaned off. Will start midodrine 10 mg 3 times daily. H&H 7.8 and 23.2. Transfuse 1 unit PRBC. Discontinue lidocaine drip. Start Plavix today. Will keep in ICU today. POD #2 discontinue chest tubes today, platelets are down to 95,000 today, no signs of any active bleeding. Will keep in ICU during dialysis if being dialyzed today. POD #3 patient had dialysis this morning, blood pressures in the 150s 160s last several checks, midodrinediscontinued. Final dialysis plan pending, chair time at [facility] pending [1] POD #4 resume midodrine 5 mg 3 times daily blood pressure was in the low 100s this morning. Continue to monitor. Subjective Up in chair, no new complaints this morning but was nauseous last night Objective Vitals and Measurements T: 36.7 C (Oral) TMIN: 36.4 C (Skin) TMAX: 37.4 C (Oral) HR: 68 (Monitored) RR: 18 BP: 130/54 SpO2:96% WT: 99.4 kg Intake and Output 7AM Yesterday to 7AM Today Intake and Output (Last 24 hours) Intake Oral Intake 180.00 Supplement Intake 0.00 Output Urine Voided 400.00 Hemodialysis 1500.00 Stool Count 0.00 Total Summary Total Intake 180.00 Total Output 1900.00 Fluid Balance -1720.00 Physical Exam Neuro oriented x 3, appropriate, pleasant Lungs clear bilaterally, room air SaO2 92-96 % Heart S1-S2 sinus rhythm in the 70s to 80s, AV temporary pacing wires intact Abdomen is large rounded soft nontender, bowel sounds present, positive bowel movement 11/08/2024 still making urine, 400mL last 24 hours. 1500ml fluid removal with dialysis Extremities are perfused, trace edema bilateral ankles Skin midsternal chest incision open to air well-approximated no drainage, right leg incision open to air no drainage Weight Current Weight Dosing Weight: 99.4 kg (11/10/24) Current Weight: 100.7 kg (11/09/24) Dosing Weight: 94.2 kg (11/09/24) Current Weight: 100.9 kg (11/07/24) Medications Medications (30) Active Scheduled: (12) aspirin 81 mg EC 81 mg 1 tab(s), Oral, qDayM clopidogrel 75 mg Tablet 75 mg 1 tab(s), Oral, qDay docusate calcium 240 mg Capsule 240 mg 1 cap(s), Oral, BID escitalopram 5 mg tablet 5 mg 1 tab(s), Oral, qDay heparin 5,000 units/mL (1 mL) vial 5,000 unit(s) 1 mL, Subcutaneous, q12h insulin glargine 5 unit(s) 0.05 mL, Subcutaneous (INT), qHS insulin lispro 100 units/mL Soln (3 mL) Give 0-10 units/dose, Subcutaneous, TIDAC metoprolol tartrate 12.5 mg (HALF-TAB) 12.5 mg 1 EA, Oral, BIDM midodrine 5 mg tablet 5 mg 1 tab(s), Oral, TID multivitamin (Chromagen Forte) with iron Vitamin B Complex with C, Folic Acid and Iron tablet 1 tab(s), Oral, qDay mupirocin 2% Ointment 22 Gram(s) tube 1 willi, Nostril, each, BID pantoprazole 40 mg EC tablet 40 mg 1 tab(s), Oral, qDayAC Continuous: (2) insulin regular 100 unit(s) + NS Premix Diluent 100 mL 100 mL, Intravenous norepinephrine 8 mg [2 mcg/min] + NS Premix Diluent 250 mL 250 mL, Intravenous, 3.75 mL/hr PRN: (16) acetaminophen 325 mg Tablet 650 mg 2 tab(s), Oral, q4h Al hydrox/Mg hydrox/simethicone 200-200-20 mg/5 mL Susp UD 30 mL, Oral, q2h bisacodyl 10 mg Suppository 10 mg 1 supp, Rectal, qDay bismuth subsalicylate 262 mg/15 mL 240 mL 30 mL, Oral, AsDirected dextrose 50% Solution Disp syringe 50 mL 12.5 gram(s) 25 mL, IV Push, AsDirected dextrose 50% Solution Disp syringe 50 mL 25 g 50 mL, IV Push, AsDirected insulin regular human recombinant 100 units/ml (10 mL) Solution 10 unit(s) 0.1 mL, IV Push, q1h magnesium gluconate 500 mg tablet 500 mg 1 tab(s), Oral, BID magnesium hydroxide 8% Suspension 30 mL UD 30 mL, Oral, qDay magnesium sulfate PMX 2 gram(s) 50 mL, IV Piggyback, AsDirected melatonin 3 mg tablet 3 mg 1 tab(s), Oral, qHS ondansetron 2 mg/ 1 mL 2 mL INJ 4 mg 2 mL, IV Push, q4h oxyCODONE 10 mg Tab (Immediate Release) 10 mg 1 tab(s), Oral, q4h oxycodone 5 mg tablet (immediate release) 5 mg 1 tab(s), Oral, q4h phenol topical 1.4% Spr 1 spray(s), Topical, q1h polyethylene glycol 3350 - UD packet 17 gram(s) 15 mL, Oral, qDay Lab Results 11/10 05:31 WBC: 7.6 Hgb: 9.5 L Hct: 27.9 L Platelet: 158 Neutrophil %: 72.6 Glucose Level: 133 H Sodium Level: 135 L Potassium Level: 4.1 BUN: 41.0 H Creatinine Lvl (s): 4.42 H 11/09 04:31 WBC: 9.3 Hgb: 9.0 L Hct: 26.6 L Platelet: 122 L Neutrophil %: 80.4 H Glucose Level: 124 H Sodium Level: 135 L Potassium Level: 4.5 BUN: 53.0 H Creatinine Lvl (s): 5.73 H EKG No qualifying data available. Assessment/Plan 1. CAD IN [place] ARTERY S/P CABG X 3 11/06/2024 Sinus rhythm in the 60s to 70s, blood pressure this morning 106/51 last night a high of 159/58 Midodrine was discontinued last night secondary to high blood pressure On aspirin, Plavix, metoprolol tartrate 12.5 twice daily 2. NSTEMI (non-ST elevated myocardial infarction) Continue Plavix 3. Acute blood loss anemia H&H is stable at 9.5 and 27.9 4. Thrombocytopenia Resolved platelets 158,000 today 5. Left carotid stenosis Severe 80-99%per doppler He is neurologically intact, follow-up with vascular surgery as outpatient 6. Chronic kidney disease BUN and creatinine today 41 and 4.42 Patient had dialysis yesterday 1500 mL of fluid were removed Has a right subclavian temporary dialysis line Nephrology deciding on tunneled catheter and likely fistula in the future 7. COPD (chronic obstructive pulmonary disease) On room air, SaO2 96 to 95% 8. DM2 (diabetes mellitus, type 2) [place] endocrinology assistance followingGlucose 133 213 last night, on Lantus, Humalog sliding scale 9. Hypertension 10. Hypercholesteremia 11. GERD (gastroesophageal reflux disease) Orders: midodrine, 5 mg= 1 tab(s), Oral, TID XR Chest 1 View (Portable)(Chest XR 1 View (Portable)), 11/11/24 6:00:00 EST, 11/11/24 6:00:00 EST,Routine, Vascular congestion, Portable: Yes, Wt k.4, non-[place] facility, CVSD Plan: Resume midodrine but it 5 mg 3 times daily and monitor blood pressure Chest x-ray without any significant congestion or pleural effusions Await tunneled catheter per nephrology Also awaiting dialysis time at the [facility] Patient ambulating well in the hallway, no other new complaints, will plan to cut wires at discharge secondary to Plavix Patient seen discussed with Dr. Bell [1] Progress Note; DENISE CHAVEZ 11/09/2024 13:04 EST Digitally Signed by DENISE CHAVEZ on 11/10/2024 11:39 AM [id number] Note Date of Service 11/10/2024 Chief Complaint NSTEMI Brief HPI: 64 y/o male with PMHx COPD (not on home O2), HTN, HLD, IDDM with nephropathy, and CKD stage IV, presented on 11/04/2024 with NSTEMI and underwent LHC revealing multivessel obstructive CAD, requiring CABG on 11/06/2024, he was started hemodialysis on 11/05/2024 due to worsening renal function and wasfound to have severe left carotid stenosis. No history of TIA or CVA, and no recent neurological complaints. Patient has been on insulin gtt. Hospitalist team consulted on 11/08/2024 for managing diabetes. Current home diabetes regimen includes Insulin Degludec 60 units daily, Semaglutide 7 mg daily, andJardiance 10 mg daily, with last A1c of 7.1. Blood glucose ranges from 110-180s on low-dose insulinsliding scale. Last hemodialysis was on 11/07/2024. Subjective Postop day #4 Patient was evaluated at bedside, he is out of bed, sitting on a chair comfortably, in no apparent distress, no reported acute events overnight, no complaints, reports some surgical incision pain which is fairly controlled with current pain management, no other complaints, denies CP, SOB, palpitations, N/V/D, abdominal or back pain. VS reviewed, his BP has been soft, however asymptomatic, midodrine resumed today, other vitals wereWNL, afebrile, and on RA. Had dialysis yesterday 1500 mL fluid removal, UOP 400 mL//24 hours Labs reviewed with normal WBC 7.6, Hgb stable at 9.5, platelet 158 (back to normal from 122 yesterday and 95 the day before), Na level 135, K level 4.5, Mg level 2.6, SCr 5.73, AST 18 (normalized), will start statin. BG level has been fairly controlled between 111 145 will continue same glycemic management. CXR today showed small bilateral pleural effusions, minimal left basilar atelectasis. Objective Vitals and Measurements T: 36.7 C (Oral) TMIN: 36.4 C (Skin) TMAX: 37.4 C (Oral) HR: 76 (Apical) RR: 18 BP: 106/51 SpO2: 96% WT: 99.4 kg Intake and Output 7AM Yesterday to 7AM Today Intake and Output (Last 24 hours) Intake Oral Intake 180.00 Supplement Intake 0.00 Output Urine Voided 400.00 Hemodialysis 1500.00 Stool Count 0.00 Total Summary Total Intake 180.00 Total Output 1900.00 Fluid Balance -1720.00 Physical Exam General: Patient is lying in bed comfortably, no apparent distress. HEENT: Normocephalic, atraumatic. PERRLA, oropharynx clear, no erythema or exudates. Neck: Supple, no lymphadenopathy, no thyromegaly. Cardiovascular: Regular rate and rhythm, no murmurs, rubs, or gallops, peripheral pulses 2+ bilaterally race bilateral LE edmea Respiratory: Clear to auscultation bilaterally, no wheezes, rales, or rhonchi. AV temporary pacing wires intact Abdomen: Soft, non-tender, non-distended, bowel sounds present. Extremities: No erythema, swelling, or tenderness. No cyanosis, clubbing in all extremities. Musculoskeletal: No deformities, full range of motion in all joints. Neurological: AAOx3. CN II-XII grossly intact. Normal muscle strength and tone. No focal deficits. Skin: Warm, dry, no rashes or lesions, midsternal chest incision open to air well-approximated no drainage, right leg incision open to air no drainage Psychiatric: Affect appropriate, mood appears stable. No acute distress or agitation noted. Weight Current Weight Dosing Weight: 99.4 kg (11/10/24) Current Weight: 100.7 kg (11/09/24) Dosing Weight: 94.2 kg (11/09/24) Current Weight: 100.9 kg (11/07/24) Medications Medications (31) Active Scheduled: (13) aspirin 81 mg EC 81 mg 1 tab(s), Oral, qDayM cardioplegic [place] formula 1,052.8 mL, Miscellaneous, Once clopidogrel 75 mg Tablet 75 mg 1 tab(s), Oral, qDay docusate calcium 240 mg Capsule 240 mg 1 cap(s), Oral, BID escitalopram 5 mg tablet 5 mg 1 tab(s), Oral, qDay heparin 5,000 units/mL (1 mL) vial 5,000 unit(s) 1 mL, Subcutaneous, q12h insulin glargine 5 unit(s) 0.05 mL, Subcutaneous (INT), qHS insulin lispro 100 units/mL Soln (3 mL) Give 0-10 units/dose, Subcutaneous, TIDAC metoprolol tartrate 12.5 mg (HALF-TAB) 12.5 mg 1 EA, Oral, BIDM midodrine 5 mg tablet 5 mg 1 tab(s), Oral, TID multivitamin (Chromagen Forte) with iron Vitamin B Complex with C, Folic Acid and Iron tablet 1 tab(s), Oral, qDay mupirocin 2% Ointment 22 Gram(s) tube 1 willi, Nostril, each, BID pantoprazole 40 mg EC tablet 40 mg 1 tab(s), Oral, qDayAC Continuous: (2) insulin regular 100 unit(s) + NS Premix Diluent 100 mL 100 mL, Intravenous norepinephrine 8 mg [2 mcg/min] + NS Premix Diluent 250 mL 250 mL, Intravenous, 3.75 mL/hr PRN: (16) acetaminophen 325 mg Tablet 650 mg 2 tab(s), Oral, q4h Al hydrox/Mg hydrox/simethicone 200-200-20 mg/5 mL Susp UD 30 mL, Oral, q2h bisacodyl 10 mg Suppository 10 mg 1 supp, Rectal, qDay bismuth subsalicylate 262 mg/15 mL 240 mL 30 mL, Oral, AsDirected dextrose 50% Solution Disp syringe 50 mL 12.5 gram(s) 25 mL, IV Push, AsDirected dextrose 50% Solution Disp syringe 50 mL 25 g 50 mL, IV Push, AsDirected insulin regular human recombinant 100 units/ml (10 mL) Solution 10 unit(s) 0.1 mL, IV Push, q1h magnesium gluconate 500 mg tablet 500 mg 1 tab(s), Oral, BID magnesium hydroxide 8% Suspension 30 mL UD 30 mL, Oral, qDay magnesium sulfate PMX 2 gram(s) 50 mL, IV Piggyback, AsDirected melatonin 3 mg tablet 3 mg 1 tab(s), Oral, qHS ondansetron 2 mg/ 1 mL 2 mL INJ 4 mg 2 mL, IV Push, q4h oxyCODONE 10 mg Tab (Immediate Release) 10 mg 1 tab(s), Oral, q4h oxycodone 5 mg tablet (immediate release) 5 mg 1 tab(s), Oral, q4h phenol topical 1.4% Spr 1 spray(s), Topical, q1h polyethylene glycol 3350 - UD packet 17 gram(s) 15 mL, Oral, qDay Lab Results 11/10 05:31 WBC: 7.6 Hgb: 9.5 L Hct: 27.9 L Platelet: 158 Neutrophil %: 72.6 Glucose Level: 133 H Sodium Level: 135 L Potassium Level: 4.1 BUN: 41.0 H Creatinine Lvl (s): 4.42 H 11/09 04:31 WBC: 9.3 Hgb: 9.0 L Hct: 26.6 L Platelet: 122 L Neutrophil %: 80.4 H Glucose Level: 124 H Sodium Level: 135 L Potassium Level: 4.5 BUN: 53.0 H Creatinine Lvl (s): 5.73 H EKG No qualifying data available. Assessment/Plan NSTEMI s/p LHC revealing multilevel obstructive CAD s/p CABG x 3 on 11/06/2024 Acute kidney injury on underlying CKD stage IV -currently on hemodialysis Postop acute blood loss anemia on underlying chronic anemia of CKD -Hgb 12.5 on admission, dropped after surgery to 7.8, improved to 9.2 after transfusion, and has been stable today Hgb 9.0 Acute thrombocytopenia -Platelet count 212 on admission, dropped gradually all the way to 95 on 11/08/2024, improving, platelet count today 158 Diabetes mellitus type ll -insulin-dependent COPD without exacerbation Severe left carotid artery stenosis 80-99%, patient is neurologically intact, needs outpatient vascular surgery follow-up for further evaluation/management. HTN essential benign patient has been hypotensive requiring pressors after procedure (now off pressors), currently on midodrine, and his BP is improving most recently 146/92 mmHg Dyslipidemia GERD (gastroesophageal reflux disease) Plan: Continue supportive care Telemetry ADA/cardiac diet Fluid restriction 1600 mL / 24 hours Monitor VS per unit protocol As needed O2, keep sat > 92% Continue with ASA/Plavix and Metoprolol Start statin today as AST normalized. Continue with midodrine 5 mg p.o. 3 times daily As needed antiemetics Pain management Resume home meds per med rec Glycemic management -currently on moderate-dose daily sliding scale, add Lantus 5 units nightly, Monitor labs Replace electrolytes as needed per protocol Encourage out of bed/ambulate as able Bowel regimen VTE PPx heparin SC CM for discharge planning Further recommendations to follow per clinical course Level of Care Indication SD monitor (other: specify in note) in CCU/ s/p CABG DVT Prophylaxis Heparin SQ Maintenance IVF Indication NA / No maintenance IVF Indwelling Urinary Catheter Indication NA No indwelling catheter Anticipated Timeline of Discharge 72+ hours Anticipated DC Disposition Home c [facility] Digitally Signed by SKYE TAPIA MD on 11/10/2024 12:32 PM [id number] Nephrology Progress note Subjective Status post yesterday. Resting. Objective Vitals and Measurements T: 36.8 C (Oral) TMIN: 36.3 C (Skin) TMAX: 37.4 C (Oral) HR: 66 (Monitored) RR: 18 BP: 128/65 SpO2:95% WT: 99.4 kg Intake and Output 7AM Yesterday to 7AM Today Intake and Output (Last 24 hours) Intake Oral Intake 660.00 Supplement Intake 0.00 Output Urine Voided 400.00 Hemodialysis 1500.00 Stool Count 0.00 Total Summary Total Intake 660.00 Total Output 1900.00 Fluid Balance -1240.00 Physical Exam General: Resting/Somnolent HEENT: Icterus-; Pallor + Neck: No swelling. JVD normal. Chest: Chest equal in expansion, and clear to auscultation bilaterally. Heart: s1s2 heard. regular. No murmur/rub appreciated. Abdomen: Soft. Nondistended. Nontender. Bowel sounds heard. Neuro: asterexis-; deferred Skin: rash-; ecchymosis - Musculoskeletal: joint effusion -; cyanosis-; lower extremitity edema: trace Genitourinary/rectal: FMS: - mena:- Breast: deferred Access: temp line Weight Current Weight Dosing Weight: 99.4 kg (11/10/24) Current Weight: 100.7 kg (11/09/24) Dosing Weight: 94.2 kg (11/09/24) Current Weight: 100.9 kg (11/07/24) Medications Medications (32) Active Scheduled: (12) aspirin 81 mg EC 81 mg 1 tab(s), Oral, qDayM cardioplegic [place] formula 1,052.8 mL, Miscellaneous, Once clopidogrel 75 mg Tablet 75 mg 1 tab(s), Oral, qDay docusate calcium 240 mg Capsule 240 mg 1 cap(s), Oral, BID escitalopram 5 mg tablet 5 mg 1 tab(s), Oral, qDay heparin 5,000 units/mL (1 mL) vial 5,000 unit(s) 1 mL, Subcutaneous, q12h insulin glargine 5 unit(s) 0.05 mL, Subcutaneous (INT), qHS insulin lispro 100 units/mL Soln (3 mL) Give 0-10 units/dose, Subcutaneous, TIDAC metoprolol tartrate 12.5 mg (HALF-TAB) 12.5 mg 1 EA, Oral, BIDM multivitamin (Chromagen Forte) with iron Vitamin B Complex with C, Folic Acid and Iron tablet 1 tab(s), Oral, qDay mupirocin 2% Ointment 22 Gram(s) tube 1 willi, Nostril, each, BID pantoprazole 40 mg EC tablet 40 mg 1 tab(s), Oral, qDayAC Continuous: (2) insulin regular 100 unit(s) + NS Premix Diluent 100 mL 100 mL, Intravenous norepinephrine 8 mg [2 mcg/min] + NS Premix Diluent 250 mL 250 mL, Intravenous, 3.75 mL/hr PRN: (18) acetaminophen 325 mg Tablet 650 mg 2 tab(s), Oral, q4h Al hydrox/Mg hydrox/simethicone 200-200-20 mg/5 mL Susp UD 30 mL, Oral, q2h bisacodyl 10 mg Suppository 10 mg 1 supp, Rectal, qDay bismuth subsalicylate 262 mg/15 mL 240 mL 30 mL, Oral, AsDirected dextrose 50% Solution Disp syringe 50 mL 12.5 gram(s) 25 mL, IV Push, AsDirected dextrose 50% Solution Disp syringe 50 mL 25 g 50 mL, IV Push, AsDirected insulin regular human recombinant 100 units/ml (10 mL) Solution 10 unit(s) 0.1 mL, IV Push, q1h magnesium gluconate 500 mg tablet 500 mg 1 tab(s), Oral, BID magnesium hydroxide 8% Suspension 30 mL UD 30 mL, Oral, qDay magnesium sulfate PMX 2 gram(s) 50 mL, IV Piggyback, AsDirected melatonin 3 mg tablet 3 mg 1 tab(s), Oral, qHS morphine 2 mg/mL 1 mL syringe 2 mg 1 mL, IV Push, q3h morphine 5 mg/mL 1 mL 5 mg 1 mL, IV Push, q3h ondansetron 2 mg/ 1 mL 2 mL INJ 4 mg 2 mL, IV Push, q4h oxyCODONE 10 mg Tab (Immediate Release) 10 mg 1 tab(s), Oral, q4h oxycodone 5 mg tablet (immediate release) 5 mg 1 tab(s), Oral, q4h phenol topical 1.4% Spr 1 spray(s), Topical, q1h polyethylene glycol 3350 - UD packet 17 gram(s) 15 mL, Oral, qDay Lab Results 11/10 05:31 WBC: 7.6 Hgb: 9.5 L Hct: 27.9 L Platelet: 158 Neutrophil %: 72.6 Glucose Level: 133 H Sodium Level: 135 L Potassium Level: 4.1 BUN: 41.0 H Creatinine Lvl (s): 4.42 H 11/09 04:31 WBC: 9.3 Hgb: 9.0 L Hct: 26.6 L Platelet: 122 L Neutrophil %: 80.4 H Glucose Level: 124 H Sodium Level: 135 L Potassium Level: 4.5 BUN: 53.0 H Creatinine Lvl (s): 5.73 H EKG No qualifying data available. Assessment/Plan Acute blood loss anemia CAD IN [place] ARTERY S/P CABG X 3 11/06/2024 Chronic kidney disease COPD (chronic obstructive pulmonary disease) DM2 (diabetes mellitus, type 2) GERD (gastroesophageal reflux disease) Hypercholesteremia Hypertension Left carotid stenosis Severe 80-99%per doppler NSTEMI (non-ST elevated myocardial infarction) Thrombocytopenia Time Spent Chronic kidney disease stage IV with acute kidney injury on intermittent hemodialysis Coronary disease status post CABG Anemia plan Creatinine is 4.4 postdialysis. Will assess for creatinine tomorrow with a break of dialysis today.She will being arranged for outpatient acute dialysis. Perhaps he will be able to get a fistula before discharge. Will need a tunneled dialysis catheter however. Diminished to urine output based on I's and O's. [1] Progress Note; BRETT OSCAR MD 11/09/2024 06:59 EST Digitally Signed by BRETT OSCAR MD on 11/10/2024 11:09 AM [id number] Note* Exam Date Time Procedure Performing Provider Status 11/10/24 5:12 AM XR Chest 2 Views Auth (V erified) [id number] ORIGINAL EXAMINATION: TWO XRAY VIEWS OF THE CHEST 11/10/2024 5:13 am COMPARISON: Chest x-ray on 11/09/2024 HISTORY: ORDERING SYSTEM PROVIDED HISTORY: Reason for Exam: abnormal breath sounds FINDINGS: Right internal jugular dialysis catheter tip is in the right atrium. Left subclavian central venous catheter tip is in the superior vena cava. The heart size is normal. Small bilateral pleural effusions are blunting the costophrenic angles. There is minimal left basilar atelectasis. No pulmonary edema is present. There is no pneumothorax. IMPRESSION: 1. Small bilateral pleural effusions. 2. Minimal left basilar atelectasis. Interpreted by: Lorenzo Mccarthy MD Preliminary Report By: Lorenzo Mccarthy MD Electronically signed By Lorenzo Mccarthy MD Dictated Date: 11/10/2024 5:17:38 AM Prelim Date: 11/10/2024 5:19:11 AM Sign Date: 11/10/2024 5:19:11 AM Ordering Provider: SARA WILLINGHAMXON [facility] [id number] Note* Exam Date Time Procedure Performing Provider Status 11/09/24 5:52 AM XR Chest 1 View Auth (Ve rified) [id number] ORIGINAL EXAMINATION: ONE XRAY VIEW OF THE CHEST 11/09/2024 5:52 am COMPARISON: Chest x-ray on 11/08/2024 HISTORY: ORDERING SYSTEM PROVIDED HISTORY: Reason for Exam: Vascular congestion/atelectasis/recent bronchitis FINDINGS: Right internal jugular dialysis catheter tip is in the right atrium. Left subclavian central venous catheter tip is in the superior vena cava. The heart size is normal. There is mild atelectasis in left mid and lower lung zone, with slight improvement since the prior day. There is no right lung infiltrate. There is no pleural fluid or pneumothorax. No pulmonary edema is present. IMPRESSION: 1. Improving left lung atelectasis. 2. No new abnormality. Interpreted by: Lorenzo Mccarthy MD Preliminary Report By: Lorenzo Mccarthy MD Electronically signed By Lorenzo Mccarthy MD Dictated Date: 11/09/2024 5:57:42 AM Prelim Date: 11/09/2024 5:58:43 AM Sign Date: 11/09/2024 5:58:43 AM [facility]ing [id number]* Exam Date Time Procedure Performing Provider Status 11/08/24 10:35 AM XR Chest 1 View Auth (V erified) [id number] ORIGINAL EXAMINATION: ONE XRAY VIEW OF THE CHEST 11/08/2024 10:35 am COMPARISON: Chest x-ray same day, 11/07/2024. HISTORY: ORDERING SYSTEM PROVIDED HISTORY: Reason for Exam: chest tube removal FINDINGS: Right-sided central venous catheter is noted with tip in unchanged position within the right atrium. A left subclavian central venous catheter is noted with tip in unchanged position within the superior vena cava. Interval removal of left basilar chest tube and mediastinal drain. Cardiomediastinal silhouette is stable. Median sternotomy wires are noted. Mild streaky airspace opacities within the left mid and lower lung with mildly improved aeration within the left lung base. No pneumothorax or large pleural effusion. Osseous structures appear intact. IMPRESSION: Interval removal of left basilar chest tube. No evidence of pneumothorax. Low lung volumes with left mid and lower lung streaky airspace opacities with mild interval improved aeration within the left lung base. Interpreted by: Ze Long Preliminary Report By: Ze Long Electronically signed By Ze Long Dictated Date: 11/08/2024 10:50:31 AM Prelim Date: 11/08/2024 10:53:42 AM Sign Date: 11/08/2024 10:53:42 AM Ordering Provider: CARMELITA DOMINGO [facility] [id number] Note Date of Service 11/08/2024 Reason for Consultation Diabetes management Referring Physician Dr. Carmelita Domingo History of Present Illness History obtained in conversation with the patient as well as review of electronic records. Vel Nichols is a 64 YOM with PMH of COPD not on home O2, insulin-dependent type 2 diabetes with nephropathy CKD stage IV, HTN, HLD initially presented with NSTEMI underwent LHC with multivessel obstructive CAD requiring CABG and is currently POD 2. He was started on hemodialysis on 11/05/2024 dueto worsening renal function. He was also found to to have severe left carotid stenosis. No history of TIA or CVA. No recent neurological complaints. Patient is currently on insulin gtt. at. Hospitalist team consulted to manage diabetes. Upon my evaluation patient is sitting up in a chair. He just finished with his breakfast. His appetite is not great. Postoperative pain seems to be tolerable. He denies any chest pain or dyspnea. With regards to his diabetes, his current regimen is insulin degludec 60. Units daily along with semaglutide 7 mg daily and Jardiance 10 mg daily with last A1c being 7.1. Patient is currently on low-doseinsulin sliding scale with blood glucose ranging from 110-180s. He has been initiated on hemodialysis with last dialysis given yesterday Review of Systems All systems reviewed and negative except as above in HPI Physical Exam Vitals and Measurements T: 37.1 C (Oral) TMIN: 36.9 C (Oral) TMAX: 37.6 C (Oral) HR: 73 (Apical) RR: 16 BP: 125/54 BP: 147/58(Line) SpO2: 94% WT: 101.8 kg Weight Current Weight Dosing Weight: 101.8 kg (11/07/24) Current Weight: 100.9 kg (11/07/24) Dosing Weight: 102.9 kg (11/07/24) General Appearance: Alert and oriented 3, no evidence of respiratory distress, patient comfortable in bed Head: Atraumatic normocephalic EENT: No evidence of nasal or pharyngeal congestion, eyes normal, pupils bilateral equal and reactive Neck: No JVD, lymphadenopathy, carotid bruits. Cardiac: S1 and S2 present, regular in rhythm. Lungs: Unlabored breathing,sounds bibasilar, no rhonchi, wheeze or Rales Chest: Sternotomy site with surgical dressing, chest tube present Abdomen: Soft, nontender, no organomegaly, positive normal abdominal sounds Musculoskeletal: No arthralgia, joint tenderness or joint effusion Extremities: No edema bilaterally, bilateral pulses 2+ Neurological: No facial droop, speech is clear, moving all 4 extremities. Skin: No rash, normal skin turgor IJ TLC Lab Results 11/08 04:37 WBC: 9.0 Hgb: 9.2 L Hct: 26.9 L Platelet: 95 L Neutrophil %: 74.8 Glucose Level: 153 H Glucose Level: 153 H Sodium Level: 137 Sodium Level: 137 Potassium Level: 4.4 Potassium Level: 4.4 BUN: 38.0 H BUN: 38.0 H Creatinine Lvl (s): 4.62 H Creatinine Lvl (s): 4.62 H 11/07 17:43 Potassium Level: 4.1 11/07 04:15 WBC: 7.7 Hgb: 7.8 L Hct: 23.2 L Platelet: 121 L Neutrophil %: 75.4 H Glucose Level: 131 H Glucose Level: 131 H Sodium Level: 141 Sodium Level: 141 Potassium Level: 4.6 Potassium Level: 4.6 BUN: 46.0 H BUN: 46.0 H Creatinine Lvl (s): 4.79 H Creatinine Lvl (s): 4.79 H CBC with hemoglobin of 9.2, platelet of 95. Renal panel with sodium 137 potassium 4.4 BUN 38, creatinine of 4.6 Imaging Results and Diagnostics As outlined above in HPI. All labs, images and EKG data personally reviewed and interpreted. Chest x-ray 11/08/2024 Low lung volumes with streaky left lung opacities likely on the basis of subsegmental atelectasis or other airspace disease. EKG Normal sinus rhythm, PACs, LVH Assessment/Plan NSTEMI (non-ST elevated myocardial infarction) Type II DM insulin-dependent NSTEMI Multivessel CAD s/p CABG x 3 on 11/06/2024 JIMMY on CKD stage IV-currently on hemodialysis Acute anemia of postoperative blood loss on chronic anemia of CKD Acute thrombocytopenia COPD without exacerbation Left carotid artery stenosis severe 80 to 99% Essential hypertension Hyperlipidemia With regards to diabetes patient has been off insulin gtt and currently on low- dose insulin slidingscale only. At baseline he is on insulin degludec 60 units daily, semaglutide 7 mg daily and Jardiance 10 mg daily. Last A1c 7 on 11/04/2024 Given his renal issues we will be discontinuing both semaglutide and Jardiance at this time and at discharge. Last 24 hours blood glucose has been ranging from 110s to 180s Goal blood glucose less than 180 He is currently on low-dose insulin sliding scale. Will switch to moderate dose daily starting scale and add Lantus 5 units nightly with close monitoring of blood glucose before meals and at bedtime.Further adjustments per blood glucose readings. Continue with diabetic diet. Follow-up with diabetic clinic as outpatient. -Rest of the care per primary team. Plan of care discussed with the patient as well as nurse at the bedside DVT prophylaxis per primary team Full code Problem List/Past Medical History Ongoing CAD IN [place]HE[place] ARTERY Chest pain in adult Chronic kidney disease Chronic knee 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 COPD (chronic obstructive pulmonary disease) COPD exacerbation Depression DM2 (diabetes mellitus, type 2) GERD (gastroesophageal reflux disease) Heart disease History of acute myocardial infarction Hypercholesteremia Hypertension Impotence Knee replacement Left carotid stenosis Long-term insulin use NSTEMI (non-ST elevated myocardial infarction) Osteoarthritis Plantar fasciitis, left Prostate cancer screening Screening for colon cancer SMOKELESS TOBACCO USE Stage 3b chronic kidney disease Testosterone insufficiency Historical Post-operative infection Stress at home Procedure/Surgical History Cardiovascular stress testin08/04/21 Colonoscopy: 2012 Stent: 12/29/11 Arthroscopy of knee joint Manipulation of knee joint under anesthetic Arthroplasty of knee Cataract Cholecystectomy Hernia repair Medications Inpatient acetaminophen, 650 mg= 2 tab(s), Oral, q4h, PRN aspirin 81 mg oral delayed release tablet, 81 mg= 1 tab(s), Oral, qDayM Betadine 10% topical solution Bicitra, 30 mL, Oral, PREOP pharm Bolus LR 1000 mL, 1000 mL, IV Bolus, PREOP pharm Cardioplegic [place], 1052.8 mL, Miscellaneous, Once CeleBREX, 400 mg= 2 cap(s), Oral, PREOP pharm Cyklokapron IVPB Decadron, 10 mg= 1 mL, IV Push, AsDirected Dextrose 50% IV Push, 12.5 gram(s)= 25 mL, IV Push, AsDirected, PRN Dulcolax Laxative, 10 mg= 1 supp, Rectal, qDay, PRN escitalopram, 5 mg= 1 tab(s), Oral, qDay glucose, 25 gram(s)= 50 mL, IV Push, AsDirected, PRN heparin 5000 units/mL injection, 5000 unit(s)= 1 mL, Subcutaneous, q12h HumaLOG 100 units/mL subcutaneous solution, Give 0-5 units/dose, Subcutaneous, TIDAC Insulin Regular for IV 100 unit(s) + NS Premix Diluent 100 mL insulin regular human recombinant 100 units/mL injectable solution, 10 unit(s)= 0.1 mL, IV Push, q1h, PRN Kefzol Maalox, 30 mL, Oral, q2h, PRN magnesium gluconate, 500 mg= 1 tab(s), Oral, BID, PRN magnesium sulfate for IV bolus, 2 gram(s)= 50 mL, IV Piggyback, AsDirected, PRN metoprolol tartrate (Lopressor), 12.5 mg= 1 EA, Oral, BIDM midodrine, 10 mg= 2 tab(s), Oral, TID Milk of Magnesia, 30 mL, Oral, qDay, PRN Miralax Powder Packet, 17 gram(s)= 15 mL, Oral, qDay, PRN morphine, 2 mg= 1 mL, IV Push, q3h, PRN morphine, 5 mg= 1 mL, IV Push, q3h, PRN Multiple Vitamins with Iron oral tablet, 1 tab(s), Oral, qDay mupirocin 2% topical ointment, 1 willi, Nostril, each, BID Naropin 25 mg + Toradol 15 mg + EPINEPHrine 1 mg/mL injectable solution 0.3 mg + morphine 2.5 mg Naropin 25 mg + Toradol 15 mg + EPINEPHrine 1 mg/mL injectable solution 0.3 mg + morphine 2.5 mg Norepinephrine for IV 8 mg [2 mcg/min] + NS PMX titrate 250 mL Ofirmev IVPB, 1000 mg= 100 mL, IV Piggyback, q6hr ondansetron, 4 mg= 2 mL, IV Push, q4h, PRN oxyCODONE, 10 mg= 1 tab(s), Oral, q4h, PRN oxyCODONE 5 mg oral tablet ( IMMEDIATE release ), 5 mg= 1 tab(s), Oral, q4h, PRN OxyCONTIN, 10 mg= 1 tab(s), Oral, PREOP pharm Pepcid IV, 20 mg= 2 mL, IV Push, PREOP pharm Pepto-Bismol, 30 mL, Oral, AsDirected, PRN Plavix, 75 mg= 1 tab(s), Oral, qDay Protonix, 40 mg= 1 tab(s), Oral, qDayAC Sore Throat Ceres, 1 spray(s), Topical, q1h, PRN Surfak Stool Softener, 240 mg= 1 cap(s), Oral, BID Home acetaminophen-oxyCODONE 325 mg-5 mg oral tablet, 1 tab(s), Oral, TID, PRN amLODIPine 5 mg oral tablet, 5 mg= 1 tab(s), Oral, qPM, 3 refills aspirin 81 mg oral delayed release tablet, 81 mg= 1 tab(s), Oral, qDay atorvastatin 40 mg oral tablet, 40 mg= 1 tab(s), Oral, qDay, 3 refills escitalopram 5 mg oral tablet, 5 mg= 1 tab(s), Oral, qDay, 3 refills ezetimibe 10 mg oral tablet, 10 mg= 1 tab(s), Oral, qDay, 3 refills hydroCHLOROthiazide 25 mg oral tablet, 25 mg= 1 tab(s), Oral, qDay, 3 refills Jardiance 10 mg oral tablet, 10 mg= 1 tab(s), Oral, qAM, 11 refills losartan 100 mg oral tablet, 100 mg= 1 tab(s), Oral, qDay, 3 refills pantoprazole 40 mg oral enteric coated tablet, 40 mg= 1 tab(s), Oral, qDay, 3 refills Rybelsus 7 mg oral tablet, 7 mg= 1 tab(s), Oral, qDay, 3 refills Tresiba FlexTouch 100 units/mL 3 mL subcutaneous solution, 60 unit(s), Subcutaneous, qDay, 3 refills Vitamin D3 25 mcg (1000 intl units) oral capsule, 25 mcg= 1 cap(s), Oral, Daily Allergies Bee Stings lisinopril Cough Social History Smoking Status - 07/03/2018 Current some day smoker Alcohol - Low Risk, 07/03/2018 Use: Current. Type: Beer. Frequency: 1-2 times per year. Average drinks per day: 1. Maximum drinks per episode in last year: 1. Has alcohol use interfered with work or home life: No. Do you ever drink more than intended: No. Has anyone been hurt or at risk by your drinking: No. Ready to change: No.Concerns about alcohol use in household: No., 09/09/2022 Employment/School Status: Employed., 01/27/2020 Exercise Home/Environment Domestic Concerns: Denies. Living situation: Home/Independent. Primary Doorkeeper: self. Lives In: Single level home. Current Home Treatments Blood Glucose monitoring. Professional Skilled Services or Special Community Resources None. Financial concerns: No. Spouse Name: Palak. Marital Status: ., 09/09/2022 Nutrition/Health Type of diet: Regular. Appetite Good. Eating Difficulties None. Enteral Feedings No. TPN Feedings No. Skin Breakdown No. Caffeine intake amount: 4 servings daily coffee and carbonated beverages., 08/03/2021 Substance Abuse - Denies Substance Abuse, 07/02/2018 Use: Never., 07/09/2019 Tobacco Nicotine Use: Former smoker, quit more than 30 days ago. Type: Cigarettes. Number of years: 20. Stopped at age: 34 Years., 09/09/2022 Nicotine Use: chew. Type: Oral (Snuff, Chew). Number of years: 30., 09/09/2022 Family History Cancer: Mother, Father and Sister. Heart disease: Mother and Father. Heart disease: Brother. Health Status Family Member(s) Immunizations SARS-CoV-2 (COVID-19) Ad26 vaccine: 0.5 unknown unit (02/04/21) tetanus/diphth/pertuss (Tdap) adult/adol: 0.5 unknown unit (12/24/20) Digitally Signed by SKINNY GONG MD on 11/08/2024 10:25 AM [id number] Note* Exam Date Time Procedure Performing Provider Status 11/08/24 5:46 AM XR Chest 1 View Auth (Ve rified) [id number] ORIGINAL EXAMINATION: ONE XRAY VIEW OF THE CHEST 11/08/2024 5:46 am COMPARISON: 11/07/2024 HISTORY: ORDERING SYSTEM PROVIDED HISTORY: Reason for Exam: decreased breath sounds FINDINGS: Stable right IJV catheter, left subclavian catheter, mediastinal drain, and left basilar chest tube. Stable cardiomediastinal silhouette. Decreased lung volumes with associated hypoventilatory changes. Streaky opacities project over the left hilar and infrahilar regions. No pneumothorax. Degenerative changes of the spine. Status post sternotomy. IMPRESSION: Low lung volumes with streaky left lung opacities likely on the basis of subsegmental atelectasis or other airspace disease. Stable support devices as detailed above. I have personally reviewed the images of this examination, and agree with the resident's findings and interpretation. Interpreted by: Lorenzo Mccarthy MD Preliminary Report By: Yoni Perla Electronically signed By Lorenzo Mccarthy MD Dictated Date: 11/08/2024 5:52:18 AM Prelim Date: 11/08/2024 5:55:23 AM Sign Date: 11/08/2024 6:13:36 AM Ordering Provider: SARA GUTIERREZ [facility] [id number] Note* Exam Date Time Procedure Performing Provider Status 11/07/24 8:49 AM Electrocardiogram - EKG - CV Celestine ROSALES MD; Auth (Verified) ECG Final Report SINUS RHYTHM ATRIAL PREMATURE COMPLEXES NONSPECIFIC IVCD WITH LAD LVH WITH SECONDARY REPOLARIZATION ABNORMALITY ANTERIOR ST ELEVATION, PROBABLY DUE TO LVH Electronic Signature: KAMERON ROSALES MD 11/08/2024 09:18:28 [facility] [id number] Note* Exam Date Time Procedure Performing Provider Status 11/07/24 5:35 AM XR Chest 1 View Auth (Ve rified) [id number] ORIGINAL EXAMINATION: ONE XRAY VIEW OF THE CHEST 11/07/2024 5:35 am COMPARISON: Chest x-ray on 11/06/2024 HISTORY: ORDERING SYSTEM PROVIDED HISTORY: Reason for Exam: abnormal breath sounds FINDINGS: The endotracheal tube and the enteric tube have been removed. Left subclavian central venous catheter tip is in the superior vena cava. Right internal jugular dialysis catheter tip is in the right atrium. Mediastinal drain and left chest tube are unchanged. The heart size is normal. There is patchy atelectasis in left mid and lower lung zone, similar to the prior day. There is no right lung infiltrate. There is no significant pleural fluid and no pneumothorax. IMPRESSION: 1. Extubation and removal of enteric tube. 2. Persistent left mid and lower lung zone atelectasis. Interpreted by: Lorenzo Mccarthy MD Preliminary Report By: Lorenzo Mccarthy MD Electronically signed By Lorenzo Mccarthy MD Dictated Date: 11/07/2024 5:47:46 AM Prelim Date: 11/07/2024 5:49:30 AM Sign Date: 11/07/2024 5:49:30 AM Ordering Provider: [facility]12-11-2024 Note* Exam Date Time Procedure Performing Provider Status 11/06/24 4:37 PM XR Enteric Tube Placement Auth (Verified) [id number] ORIGINAL EXAMINATION: ONE SUPINE XRAY VIEW(S) OF THE ABDOMEN 11/06/2024 4:38 pm COMPARISON: None. HISTORY: ORDERING SYSTEM PROVIDED HISTORY: Reason for Exam: Check OG Tube Placement FINDINGS: Enteric tube side port and distal tip projects over the proximal to mid stomach. IMPRESSION: Enteric tube side port and distal tip projects over the proximal to mid stomach. Interpreted by: Alex Ortiz Preliminary Report By: Alex Ortiz Electronically signed By Alex Ortiz Dictated Date: 11/06/2024 4:40:31 PM Prelim Date: 11/06/2024 4:41:24 PM Sign Date: 11/06/2024 4:41:24 PM Ordering Provider: [facility]12-11-2024 Note* Exam Date Time Procedure Performing Provider Status 11/06/24 4:36 PM XR Chest 1 View Auth Aden long) [id number] ORIGINAL EXAMINATION: ONE XRAY VIEW OF THE CHEST11/06/2024 4:36 pm COMPARISON: CT chest 11/04/2024. Chest radiographs 11/03/2024 and 08/03/2021. HISTORY: ORDERING SYSTEM PROVIDED HISTORY: Reason for Exam: Check line placement FINDINGS: Endotracheal tube tip terminates approximately 4.9 cm above the amina. An enteric tube is visualized with side port hole below the diaphragm and tip off the field of view. Left chest tube projects over the left lung base. Mediastinal drain noted. Right internal jugular central venous catheter projects over the right atrium. Left subclavian central venous catheter projects over the expected superior vena cava. Cardiomediastinal contours are stable. Atherosclerotic aorta sternotomy wires and mediastinal clips noted. Atelectatic changes in the left more so than right lung salcedo. Costophrenic angles are sharp. No radiographic pneumothorax. IMPRESSION: Support devices as above. I have personally reviewed the images of this examination and agree with the resident's findings and interpretation. Interpreted by: Alex Ortiz Preliminary Report By: Panfilo Mercer Electronically signed By Alex Ortiz Dictated Date: 11/06/2024 4:39:18 PM Prelim Date: 11/06/2024 4:46:14 PM Sign Date: 11/06/2024 5:36:54 PM Ordering Provider[facility] [id number] Note* Exam Date Time Procedure Performing Provider Status 11/06/24 12:20 PM TOOTIE in FINN NEVAREZ DO; Au (Verified) [facility] [id number] Progress note Date of Service 11/05/2024 Chief Complaint Chest pain transferred from [facility] There were no acute events overnight. Patient had no complaints of chest pain, shortness of breath or diaphoresis. Objective Vitals and Measurements T: 36.6 C (Skin) TMIN: 36.4 C (Oral) TMAX: 36.7 C (Oral) HR: 68 (Monitored) RR: 17 BP: 142/85 SpO2:98% WT: 97.7 kg Intake and Output 7AM Yesterday to 7AM Today Intake and Output (Last 24 hours) Intake Oral Intake 118.00 Output Urine Voided 1600.00 Total Summary Total Intake 118.00 Total Output 1600.00 Fluid Balance -1482.00 Physical Exam General Appearance: Alert and oriented in no acute distress Head: Normocephalic, atraumatic EENT: Moist oral mucosa Neck: Supple Cardiac: Regular rate and rhythm, no murmur Respiratory: Clear to auscultation bilaterally, without crackles or rales Abdomen: Soft, nontender to deep palpation, normoactive bowel sounds Musculoskeletal: No joint deformity, no muscle tenderness Extremities: 2+ pulses, no pedal edema Neurological: Alert and oriented x3, no focal deficit Skin: Warm and dry, no rash Psychiatric: Normal mood and affect Weight Dosing Weight: 97.7 kg (11/05/24) Dosing Weight: 97.3 kg (11/04/24) Medications Medications (33) Active Scheduled: (15) amLODIPine 5 mg tablet 5 mg 1 tab(s), Oral, qDay aspirin 81 mg EC 81 mg 1 tab(s), Oral, qDay atorvastatin 40 mg tablet 40 mg 1 tab(s), Oral, qDay cardioplegic del Nido formula 1,052.8 mL, Miscellaneous, Once ceFAZolin syringe 2 gram(s) 20 mL, IV Push (INT), PREOP pharm chlorhexidine topical 0.12% Liquid (60 mL) 15 mL, Oral, BID escitalopram 5 mg tablet 5 mg 1 tab(s), Oral, qDay ezetimibe 10 mg tablet 10 mg 1 tab(s), Oral, qDay heparin 10,000 unit(s) 1 mL, Miscellaneous, PREOP pharm insulin lispro 100 units/mL Soln (3 mL) Give 0-5 units/dose, Subcutaneous, achs mupirocin 2% Ointment 22 Gram(s) tube 1 willi, Nostril, each, BID No metformin for 48 hrs post contrast 1 EA, Miscellaneous, Unscheduled No prasugrel (Effient) 7 days before surgery 1 EA, Miscellaneous, Daily NO vitamin E, clopidogrel (Plavix) 5 days before surgery 1 EA, Miscellaneous, Daily pantoprazole 40 mg EC tablet 40 mg 1 tab(s), Oral, qDay Continuous: (8) epinephrine 4 mg + Sodium Chloride 0.9% 250 mL 250 mL, Intravenous heparin 25,000 unit(s) + Dextrose 5% Premix Diluent 250 mL 250 mL, Intravenous, 10 mL/hr insulin regular 100 unit(s) + Sodium Chloride 0.9% 100 mL 100 mL, Intravenous norepinephrine 8 mg + Sodium Chloride 0.9% 250 mL 250 mL, Intravenous Sodium Chloride 0.9% IRR 500 mL + cefuroxime 1.5 gram(s) 500 mL, Topical (CONT) tranexamic acid PMX 1 gram(s) , IV Piggyback tranexamic acid PMX 1 gram(s) , IV Piggyback tranexamic acid PMX 1 gram(s) , IV Piggyback PRN: (10) dextrose 50% Solution Disp syringe 50 mL 12.5 gram(s) 25 mL, IV Push, AsDirected heparin 5,000 units/mL (1 mL) vial 4,000 unit(s) 0.8 mL, IV Push, q6h magnesium sulfate 4 gram(s)/100mL PMX 4 g 100 mL, IV Piggyback, AsDirected magnesium sulfate 50% (500mg/mL) 6 g 12 mL, IV Piggyback, AsDirected magnesium sulfate PMX 2 g 50 mL, IV Piggyback, AsDirected nitroglycerin 0.4 mg Tablet (25/btl) 0.4 mg 1 tab(s), Sublingual, q15min potassium chloride (PMX) 20 mEq/100 mL 20 mEq 100 mL, IV Piggyback, AsDirected potassium chloride 20 mEq ER tablet 20 mEq 1 tab(s), Oral, AsDirected potassium chloride 20 mEq ER tablet 40 mEq 2 tab(s), Oral, AsDirected potassium chloride 20 mEq ER tablet 40 mEq 2 tab(s), Oral, AsDirected Lab Results 11/05 03:42 WBC: 6.4 Hgb: 11.6 L Hct: 33.3 L Platelet: 207 Neutrophil %: 67.5 Glucose Level: 90 Glucose Level: 90 Sodium Level: 139 Sodium Level: 139 Potassium Level: 3.8 Potassium Level: 3.8 BUN: 71.0 H BUN: 71.0 H Creatinine Lvl (s): 5.52 H Creatinine Lvl (s): 5.52 H 11/04 06:47 WBC: 6.5 Hgb: 11.5 L Hct: 33.9 L Platelet: 217 Neutrophil %: 59.2 Protime: 10.4 PT International Ratio: 0.9 Glucose Level: 122 H Sodium Level: 142 Potassium Level: 3.8 BUN: 81.0 H Creatinine Lvl (s): 5.72 H Imaging Results and Diagnostics IR Temporary Dialysis Catheter Result Date: November 05, 2024 Verified By: CAMPBELL CALLE DO CLINICAL STATEMENT: IMPRESSION: 1. Successful placement of a temporary hemodialysis catheter NOTE: Temporary hemodialysis catheter intended for inpatient use only.Removal or conversion to a permanent tunneled catheter required prior tohospital discharge. Procedure performed by Katelyn Caal PA-C, under direct supervision ofLadan Zazueta PA-C Renal Result Date: November 05, 2024 Verified By: BENJAMIN BARRERA DO CLINICAL STATEMENT: IMPRESSION: 1. Small bilateral renal cysts.2. No acute surgical abnormality. CT Thorax w/o Contrast Result Date: November 04, 2024 Verified By: Ekaterina_RAFA salazar CLINICAL STATEMENT: IMPRESSION: 1. Mild calcification at the aortic root involving the anterior right lateraland posterior evangelista.2. Multiple pulmonary nodules. Most significant: Solid pulmonary nodulemeasuring 4 mm.Per Fleischner Society Guidelines, no routine follow-up imaging isrecommended.These guidelines do not apply to immunocompromised patients and patients withcancer. Follow up in patients with significant comorbidities as clinicallywarranted. For lung cancer screening, adhere to Lung-RADS guidelines.Reference: Radiology. 2017; 284(1):228-43.3. Advanced coronary ASVD. EKG No qualifying data available. Assessment/Plan [facility] 11/04 multivessel disease Elevated troponins Elevated proBNP JIMMY on CKD This is a 64-year-old gentleman with past medical history of hypertension, diabetes mellitus, COPD,CAD s/p PCI, CKD who presented to [facility] due to chest pain which started when he was getting ready for bed. He was noted to have nonspecific ST T wave changes as well as troponin elevation at [facility]. His chest pain improved with nitroglycerin. Patient transferred to [place] for further evaluation. Heart score is 6 -Patient underwent PCI on 11/04/2024 and was found to have multivessel disease. -CABG is scheduled for tomorrow 11/06/2024 -Nephrology is following the patient to monitor renal function. Today creatinine 5.5 and GFR is 10.Per cardiothoracic surgery patient needs to be metabolically stable for surgery tomorrow. -Plan was for patient to undergo dialysis today. Digitally Signed by BRITTON GONZALEZ MD on 11/05/2024 05:28 PM [facility] [id number] Vascular surgery Consult note Date of Service 11/06/2024 Reason for Consultation Asymptomatic severe left carotid stenosis History of Present Illness This is a 64-year-old male who presented to the hospital over the weekend with chest pain. Prior history of coronary artery disease and PCI. He underwent LHC and was found to have multivessel disease. He is going for CABG later today. He has chronic kidney disease which has worsened. He was startedon hemodialysis yesterday. During preoperative workup, he was found to have severe left carotid stenosis. No history of TIA or CVA. No recent neurological complaints. He is a former smoker. Review of Systems A 14 point review of systems was discussed and was negative besides what is mentioned in the above HPI. Physical Exam Vitals and Measurements T: 36.8 C (Oral) TMIN: 36.4 C (Oral) TMAX: 36.8 C (Oral) HR: 68 (Monitored) RR: 18 BP: 132/70 SpO2:97% WT: 96.6 kg Weight Dosing Weight: 96.6 kg (11/05/24) Dosing Weight: 97.7 kg (11/05/24) General Appearance: No acute distress; A&Ox3 Head: Normocephalic/atraumatic EENT: PERRLA, EOMI, moist mucous membranes Neck: Supple, no thyromegaly, no JVD appreciated Cardiac: RRR, normal S1 and S2, no murmurs, rubs, or gallops Lungs: Normal rise and fall of the chest, clear to auscultation bilaterally, no wheezes, crackles, or gallops Abdomen: Soft, nondistended, nontender, bowel sounds present, no guarding or rigidity Musculoskeletal: Strength 5/5 in all muscle groups Extremities: No lower extremity edema bilaterally; palp radial and femoral pulses Neurological: Alert and oriented to person, no focal deficits noted, DTRs are 2+, CN II through XIIappear to be intact Skin: No active skin lesions or rashes Lab Results 11/06 02:27 WBC: 5.9 Hgb: 11.0 L Hct: 32.3 L Platelet: 185 Neutrophil %: 63.5 Glucose Level: 211 H Glucose Level: 211 H Sodium Level: 137 Sodium Level: 137 Potassium Level: 4.1 Potassium Level: 4.1 BUN: 53.0 H BUN: 53.0 H Creatinine Lvl (s): 4.70 H Creatinine Lvl (s): 4.70 H 11/05 03:42 WBC: 6.4 Hgb: 11.6 L Hct: 33.3 L Platelet: 207 Neutrophil %: 67.5 Glucose Level: 90 Glucose Level: 90 Sodium Level: 139 Sodium Level: 139 Potassium Level: 3.8 Potassium Level: 3.8 BUN: 71.0 H BUN: 71.0 H Creatinine Lvl (s): 5.52 H Creatinine Lvl (s): 5.52 H Imaging Results and Diagnostics IR Temporary Dialysis Catheter Result Date: November 05, 2024 Verified By: CAMPBELL CALLE DO CLINICAL STATEMENT: IMPRESSION: 1. Successful placement of a temporary hemodialysis catheter NOTE: Temporary hemodialysis catheter intended for inpatient use only.Removal or conversion to a permanent tunneled catheter required prior tohospital discharge. Procedure performed by Katelyn Caal PA-C, under direct supervision ofLadan Zazueta PA-C Renal Result Date: November 05, 2024 Verified By: BENJAMIN BARRERA DO CLINICAL STATEMENT: IMPRESSION: 1. Small bilateral renal cysts.2. No acute surgical abnormality. CT Thorax w/o Contrast Result Date: November 04, 2024 Verified By: Ekaterina_RAFA salazar CLINICAL STATEMENT: IMPRESSION: 1. Mild calcification at the aortic root involving the anterior right later[place] posterior evangelista.2. Multiple pulmonary nodules. Most significant: Solid pulmonary nodulemeasuring 4 mm.Per Fleischner Society Guidelines, no routine follow-up imaging isrecommended.These guidelines do not apply to immunocompromised patients and patients withcancer. Follow up in patients with significant comorbidities as clinicallywarranted. For lung cancer screening, adhere to Lung-RADS guidelines.Reference: Radiology. 2017; 284(1):228-43.3. Advanced coronary ASVD. Assessment/Plan 1. Left carotid stenosis -Patient found to have severe asymptomatic left carotid stenosis -Given his tenuous renal function, would not recommend any further imaging at this time, such as CTA neck -Given that he is symptomatic from his coronary artery disease and asymptomatic from his left carotid stenosis, I would proceed with CABG this afternoon -I explained to him in detail that he is at elevated but not prohibitive risk of stroke during CABGtoday -I will arrange short interval follow-up once he is discharged from the hospital Problem List/Past Medical History Ongoing CAD IN [place] ARTERY Chest pain in adult Chronic kidney disease Chronic knee 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 COPD (chronic obstructive pulmonary disease) COPD exacerbation Depression DM2 (diabetes mellitus, type 2) GERD (gastroesophageal reflux disease) Heart disease History of acute myocardial infarction Hypercholesteremia Hypertension Impotence Knee replacement Left carotid stenosis Long-term insulin use Osteoarthritis Plantar fasciitis, left Prostate cancer screening Screening for colon cancer SMOKELESS TOBACCO USE Stage 3b chronic kidney disease Testosterone insufficiency Historical Post-operative infection Stress at home Procedure/Surgical History Cardiovascular stress testin08/04/21 Colonoscopy: 2012 Stent: 12/29/11 Manipulation of knee joint under anesthetic Arthroplasty of knee Arthroscopy of knee joint Cataract Cholecystectomy Hernia repair Medications Inpatient Adrenalin 4 mg + Normal Saline 250 mL amLODIPine, 5 mg= 1 tab(s), Oral, qDay aspirin 81 mg oral delayed release tablet, 81 mg= 1 tab(s), Oral, qDay atorvastatin, 40 mg= 1 tab(s), Oral, qDay Betadine 10% topical solution Bicitra, 30 mL, Oral, PREOP pharm Bolus LR 1000 mL, 1000 mL, IV Bolus, PREOP pharm Cardioplegic del Nido, 1052.8 mL, Miscellaneous, Once CeleBREX, 400 mg= 2 cap(s), Oral, PREOP pharm Cyklokapron IVPB Decadron, 10 mg= 1 mL, IV Push, AsDirected Dextrose 50% IV Push, 12.5 gram(s)= 25 mL, IV Push, AsDirected, PRN escitalopram, 5 mg= 1 tab(s), Oral, qDay ezetimibe, 10 mg= 1 tab(s), Oral, qDay Heparin 10,000 units/mL Heparin for IV 25,000 unit(s) + Dextrose 5% Premix Diluent 250 mL Heparin HBW CARDIAC Bolus 5000 units/mL, 4000 unit(s)= 0.8 mL, 60 unit(s)/kg, IV Push, q6h, PRN HumaLOG 100 units/mL subcutaneous solution, Give 0-5 units/dose, Subcutaneous, achs insulin regular 100 unit(s) + Normal Saline 100 mL Kefzol Kefzol, 2 gram(s)= 20 mL, IV Push (INT), PREOP pharm magnesium sulfate for IV bolus, 2 gram(s)= 50 mL, IV Piggyback, AsDirected, PRN magnesium sulfate for IV bolus, 4 gram(s)= 100 mL, IV Piggyback, AsDirected, PRN magnesium sulfate for IV bolus mupirocin 2% topical ointment, 1 willi, Nostril, each, BID Naropin 25 mg + Toradol 15 mg + EPINEPHrine 1 mg/mL injectable solution 0.3 mg + morphine 2.5 mg Naropin 25 mg + Toradol 15 mg + EPINEPHrine 1 mg/mL injectable solution 0.3 mg + morphine 2.5 mg nitroglycerin 0.4 mg sublingual tablet, 0.4 mg= 1 tab(s), Sublingual, q15min, PRN NO METFORMIN (Glucophage) X 48hrs-patient has received contrast, 1 EA, Miscellaneous, Unscheduled No prasugrel (Effient) 7 days before surgery, 1 EA, Miscellaneous, Daily No Vitamin E,clopidogrel (Plavix), 5 days before surgery, 1 EA, Miscellaneous, Daily norepinephrine 8 mg + Normal Saline 250 mL NS Irrigation Bottle 500 mL + cefuroxime 1.5 gram(s) OxyCONTIN, 10 mg= 1 tab(s), Oral, PREOP pharm pantoprazole, 40 mg= 1 tab(s), Oral, qDay Pepcid IV, 20 mg= 2 mL, IV Push, PREOP pharm Peridex 0.12% oral rinse liquid, 15 mL, Oral, BID potassium chloride, 20 mEq= 1 tab(s), Oral, AsDirected, PRN potassium chloride, 40 mEq= 2 tab(s), Oral, AsDirected, PRN potassium chloride, 40 mEq= 2 tab(s), Oral, AsDirected, PRN potassium chloride bolus, 20 mEq= 100 mL, IV Piggyback, AsDirected, PRN tranexamic acid 1 gram(s), 1 gram(s)= 100 mL, IV Piggyback tranexamic acid 1 gram(s), 1 gram(s)= 100 mL, IV Piggyback tranexamic acid 1 gram(s), 1 gram(s)= 100 mL, IV Piggyback Home acetaminophen-oxyCODONE 325 mg-5 mg oral tablet, 1 tab(s), Oral, TID, PRN amLODIPine 5 mg oral tablet, 5 mg= 1 tab(s), Oral, qPM, 3 refills aspirin 81 mg oral delayed release tablet, 81 mg= 1 tab(s), Oral, qDay atorvastatin 40 mg oral tablet, 40 mg= 1 tab(s), Oral, qDay, 3 refills escitalopram 5 mg oral tablet, 5 mg= 1 tab(s), Oral, qDay, 3 refills ezetimibe 10 mg oral tablet, 10 mg= 1 tab(s), Oral, qDay, 3 refills hydroCHLOROthiazide 25 mg oral tablet, 25 mg= 1 tab(s), Oral, qDay, 3 refills Jardiance 10 mg oral tablet, 10 mg= 1 tab(s), Oral, qAM, 11 refills losartan 100 mg oral tablet, 100 mg= 1 tab(s), Oral, qDay, 3 refills pantoprazole 40 mg oral enteric coated tablet, 40 mg= 1 tab(s), Oral, qDay, 3 refills Rybelsus 7 mg oral tablet, 7 mg= 1 tab(s), Oral, qDay, 3 refills Tresiba FlexTouch 100 units/mL 3 mL subcutaneous solution, 60 unit(s), Subcutaneous, qDay, 3 refills Vitamin D3 25 mcg (1000 intl units) oral capsule, 25 mcg= 1 cap(s), Oral, Daily Allergies Bee Stings lisinopril Cough Social History Smoking Status - 07/03/2018 Current some day smoker Alcohol - Low Risk, 07/03/2018 Use: Current. Type: Beer. Frequency: 1-2 times per year. Average drinks per day: 1. Maximum drinks per episode in last year: 1. Has alcohol use interfered with work or home life: No. Do you ever drink more than intended: No. Has anyone been hurt or at risk by your drinking: No. Ready to change: No.Concerns about alcohol use in household: No., 09/09/2022 Employment/School Status: Employed., 01/27/2020 Exercise Home/Environment Domestic Concerns: Denies. Living situation: Home/Independent. Primary Doorkeeper: self. Lives In: Single level home. Current Home Treatments Blood Glucose monitoring. Professional Skilled Services or Special Community Resources None. Financial concerns: No. Spouse Name: Palak. Marital Status: ., 09/09/2022 Nutrition/Health Type of diet: Regular. Appetite Good. Eating Difficulties None. Enteral Feedings No. TPN Feedings No. Skin Breakdown No. Caffeine intake amount: 4 servings daily coffee and carbonated beverages., 08/03/2021 Substance Abuse - Denies Substance Abuse, 07/02/2018 Use: Never., 07/09/2019 Tobacco Nicotine Use: Former smoker, quit more than 30 days ago. Type: Cigarettes. Number of years: 20. Stopped at age: 34 Years., 09/09/2022 Nicotine Use: chew. Type: Oral (Snuff, Chew). Number of years: 30., 09/09/2022 Family History Cancer: Mother, Father and Sister. Heart disease: Mother and Father. Heart disease: Brother. Health Status Family Member(s) Immunizations SARS-CoV-2 (COVID-19) Ad26 vaccine: 0.5 unknown unit (02/04/21) tetanus/diphth/pertuss (Tdap) adult/adol: 0.5 unknown unit (12/24/20) Digitally Signed by LAUREEN BIRD MD on 11/06/2024 08:12 AM [id number] Anesthesiology Consult note Patient: VEL NICHOLS Age: 64 years Sex: Male : 1960 Associated Diagnoses: None Author: FINN OBRIEN DO Preoperative Information Greater than 6 hours Anesthesia history Patient's history: negative. Family's history: negative. Review of Systems Ear/Nose/Mouth/Throat: Negative except as documented in history of present illness. Respiratory: Negative except as documented in history of present illness. Cardiovascular: Negative except as documented in history of present illness. Gastrointestinal: Negative except as documented in history of present illness. Genitourinary: Negative except as documented in history of present illness. Endocrine: Negative except as documented in history of present illness. Musculoskeletal: Negative except as documented in history of present illness. Integumentary: Negative except as documented in history of present illness. Neurologic: Negative except as documented in history of present illness. Health Status Allergies: Allergic Reactions (Selected) Severity Not Documented Bee Stings- No reactions were documented. Nonallergic Reactions (Selected) Severity Not Documented Lisinopril- Cough., Allergies (2) ActiveSeverityReaction Bee StingsNone Documented lisinoprilCough Current medications: (Selected) Inpatient Medications Ordered Adrenalin 4 mg + Normal Saline 250 mL: Start: 11/06/24 5:00:00 EST, 18 hour(s), Stop date 11/06/24 22:59:00 EST, Infuse as directed for CVOR Betadine 10% topical solution: Start: 09/20/22 6:00:00 EDT, Dose = 17.5 mL, Soln, Topical (INT), PREOP pharm, 18 hour(s), Stop: 09/20/22 23:59:00 EDT, mL/hr, Infuse over: 0 minute(s), 0 Bicitra: Start: 09/20/22 6:00:00 EDT, Dose = 30 mL, Soln, Oral, PREOP pharm, Stop: 09/20/22 23:59:00 EDT, 0 Bolus LR 1000 mL: Start: 09/20/22 6:00:00 EDT, Dose = 1,000 mL, Soln, IV Bolus, PREOP pharm, 18 hour(s), Stop: 09/20/22 23:59:00 EDT Cardiopleg[facility] [place]: Start: 11/06/24 5:00:00 EST, Stop date 11/06/24 5:00:00 EST, Rate: 0 mL/hr CeleBREX: Start: 09/20/22 6:00:00 EDT, Dose = 400 mg, = 2 cap(s), Oral, PREOP pharm, Stop: 09/20/2223:59:00 EDT, 0 Cyklokapron IVPB: Start: 09/20/22 6:00:00 EDT, Dose = 2,000 mg, = 20 mL, Topical (INT), PREOP pharm, 18 hour(s), Stop: 09/20/22 23:59:00 EDT, Rate: 0 mL/hr, Infuse over: 0 minute(s), 0 Decadron: Start: 09/20/22 6:00:00 EDT, Dose = 10 mg, = 1 mL, IV Push, AsDirected, 18 hour(s), Stop:09/20/22 23:59:00 EDT, 0 Dextrose 50% IV Push: Start: 11/04/24 6:02:00 EST, Dose = 12.5 gram(s), = 25 mL, IV Push, AsDirected, PRN, Hypoglycemia, 11/04/24 6:02:00 EST Heparin 10,000 units/mL: Start: 11/06/24 5:00:00 EST, Dose = 10,000 unit(s), = 1 mL, Miscellaneous,PREOP pharm, 12 hour(s), Stop: 11/06/24 16:59:00 EST, mL/hr, Infuse over: 0 minute(s), 0 Heparin HBW CARDIAC Bolus 5000 units/mL: Start: 11/04/24 6:16:00 EST, Dose = 4,000 unit(s), = 0.8 mL, IV Push, q6h, PRN, Protocol, Weight Based Heparin, 11/04/24 6:16:00 EST Heparin for IV 25,000 unit(s) + Dextrose 5% Premix Diluent 250 mL: Start: 11/04/24 6:16:00 EST, STAT, Rate: 10 mL/hr, 11/04/24 6:16:00 EST HumaLOG 100 units/mL subcutaneous solution: Start: 11/04/24 8:00:00 EST, Give 0- 5 units/dose, Subcutaneous, achs, 11/04/24 6:07:00 EST Kefzol: Start: 09/20/22 6:00:00 EDT, Dose = 2 gram(s), IV Piggyback, PREOP pharm, Stop: 09/20/22 23:59:00 EDT, Rate: 200 mL/hr, Infuse over: 30 minute(s), 0 Kefzol: Start: 11/06/24 6:00:00 EST, Dose= 2 gram(s), = 20 mL, IV Push (INT), PREOP pharm, Routine,Rate: 240 mL/hr, Infuse over: 5 minute(s), 20 mL, 11/06/24 6:00:00 EST NO METFORMIN (Glucophage) X 48hrs-patient has received contrast: Start: 11/04/24 14:00:00 EST, Unscheduled, 48 hour(s), Stop: 11/06/24 13:59:00 EST, 11/04/24 13:11:00 EST NS Irrigation Bottle 500 mL + cefuroxime 1.5 gram(s): Start: 11/06/24 5:00:00 EST, Topical (CONT), use as directed in CVOR, 18 hour(s), Stop date 11/06/24 22:59:00 EST, 500 Naropin 25 mg + Toradol 15 mg + EPINEPHrine 1 mg/mL injectable solution 0.3 mg + morphine 2.5 mg...: Start: 09/20/22 6:00:00 EDT, Soln, Other, PREOP pharm, 18 hour(s), Stop: 09/20/22 23:59:00 EDT, mL/hr, Infuse over: 0 minute(s), 0 Naropin 25 mg + Toradol 15 mg + EPINEPHrine 1 mg/mL injectable solution 0.3 mg + morphine 2.5 mg...: Start: 09/20/22 6:00:00 EDT, Soln, Other, PREOP pharm, 18 hour(s), Stop: 09/20/22 23:59:00 EDT, mL/hr, Infuse over: 0 minute(s), 0 No Vitamin E,clopidogrel (Plavix), 5 days before surgery: Start: 11/04/24 15:24:00 EST, Daily, 11/04/24 15:24:00 EST No prasugrel (Effient) 7 days before surgery: Start: 11/04/24 15:24:00 EST, Daily, 11/04/24 15:24:00 EST OxyCONTIN: Start: 09/20/22 6:00:00 EDT, Dose = 10 mg, = 1 tab(s), Oral, PREOP pharm, Stop: 09/20/2223:59:00 EDT, 0 Pepcid IV: Start: 09/20/22 6:00:00 EDT, Dose = 20 mg, = 2 mL, IV Push, PREOP pharm, Stop: 09/20/22 23:59:00 EDT, 0 Peridex 0.12% oral rinse liquid: Start: 11/05/24 21:00:00 EST, Dose = 15 mL, Liq, Oral, BID, 2 dose(s), Stop: 11/06/24 9:00:00 EST, 11/05/24 21:00:00 EST amLODIPine: Start: 11/04/24 10:32:00 EST, Dose = 5 mg, = 1 tab(s), Oral, qDay, NOW, 11/04/24 10:32:00 EST aspirin 81 mg oral delayed release tablet: Start: 11/04/24 9:00:00 EST, Dose = 81 mg, = 1 tab(s), Oral, qDay, 11/04/24 5:50:00 EST atorvastatin: Start: 11/04/24 22:00:00 EST, Dose = 40 mg, = 1 tab(s), Oral, qDay, 11/04/24 5:50:00 EST escitalopram: Start: 11/04/24 9:00:00 EST, Dose = 5 mg, = 1 tab(s), Oral, qDay, 11/04/24 5:50:00 EST ezetimibe: Start: 11/04/24 9:00:00 EST, Dose = 10 mg, = 1 tab(s), Oral, qDay, 11/04/24 5:50:00 EST insulin regular 100 unit(s) + Normal Saline 100 mL: Start: 11/06/24 5:00:00 EST, 18 hour(s), Stop date 11/06/24 22:59:00 EST, Infuse as directed for CV[facility] magnesium sulfate for IV bolus: Start: 11/04/24 6:02:00 EST, 2 g, Dose = 50 mL, Soln, IV Piggyback,AsDirected, PRN, for Mg level 1.5-1.8 mg/dl, Rate: 25 mL/hr, Infuse over: 2 hour(s), 0, 11/04/24 6:02:00 EST magnesium sulfate for IV bolus: Start: 11/04/24 6:02:00 EST, 4 g, Dose = 100 mL, Soln, IV Piggyback, AsDirected, PRN, for Mg level 1.1-1.4 mg/dl, Rate: 25 mL/hr, Infuse over: 4 hour(s), 0, 11/04/24 6:02:00 EST magnesium sulfate for IV bolus: Start: 11/04/24 6:02:00 EST, 6 g, Dose = 12 mL, Soln, IV Piggyback,AsDirected, PRN, for Mg level 1 mg/dl or less, Rate: 41.67 mL/hr, Infuse over: 6 hour(s), 0, 11/04/24 6:02:00 EST mupirocin 2% topical ointment: Start: 11/04/24 15:24:00 EST, Dose = 1 willi, Nostril, each, BID, Apply to: each nostril, 5 day(s), Stop: 11/09/24 9:00:00 EST, Ointment, 11/04/24 15:24:00 EST nitroglycerin 0.4 mg sublingual tablet: Start: 11/04/24 6:24:00 EST, 0.4 mg, Dose = 1 tab(s), Tab, Sublingual, q15min, PRN, Chest pain, 11/04/24 6:24:00 EST norepinephrine 8 mg + Normal Saline 250 mL: Start: 11/06/24 5:00:00 EST, 18 hour(s), Stop date 11/06/24 22:59:00 EST, Infuse as directed for CV[facility] pantoprazole: Start: 11/04/24 6:00:00 EST, Dose = 40 mg, = 1 tab(s), Oral, qDay, 11/04/24 5:51:00 EST potassium chloride bolus: Start: 11/04/24 6:02:00 EST, Dose = 20 mEq, = 100 mL, IV Piggyback, AsDirected, PRN, for K+ level 2.5 - 2.9 mEq/dL, Rate: 50 mL/hr, Infuse over: 2 hour(s), 0, 11/04/24 6:02:00 EST potassium chloride: Start: 11/04/24 6:02:00 EST, Dose = 20 mEq, = 1 tab(s), Oral, AsDirected, PRN, for K+ level 3.5 - 3.9 mEq/L, 11/04/24 6:02:00 EST potassium chloride: Start: 11/04/24 6:02:00 EST, Dose = 40 mEq, = 2 tab(s), Oral, AsDirected, PRN, for K+ level 2.5 - 2.9 mEq/dL, 11/04/24 6:02:00 EST potassium chloride: Start: 11/04/24 6:02:00 EST, Dose = 40 mEq, = 2 tab(s), Oral, AsDirected, PRN, for K+ level 3-3.4 mEq/L, 11/04/24 6:02:00 EST tranexamic acid 1 gram(s): 11/06/24 5:00:00 EST, PMX bag, IV Piggyback, 18 hour(s), Physician Stop,Stop date 11/06/24 22:59:00 EST tranexamic acid 1 gram(s): 11/06/24 5:00:00 EST, PMX bag, IV Piggyback, 18 hour(s), Physician Stop,Stop date 11/06/24 22:59:00 EST tranexamic acid 1 gram(s): 11/06/24 5:00:00 EST, PMX bag, IV Piggyback, 18 hour(s), Physician Stop,Stop date 11/06/24 22:59:00 EST Prescriptions Prescribed Jardiance 10 mg oral tablet: Dose : 10 mg = 1 tab(s), Oral, qAM, # 30 tab(s), 11 Refill(s), Pharmacy: [facility]/pharmacy #[id number], 170, cm, 12/24/21 9:36:00 EST, Height, kg, 12/24/21 9:36:00 EST, Dosing Weight Rybelsus 7 mg oral tablet: Dose : 7 mg = 1 tab(s), Oral, qDay, take at least 30 minutes before first food, beverage, or other oral meds, # 90 tab(s), 3 Refill(s), Pharmacy: [facility],DM2 (diabetes mellitus, type 2), 168, cm, 09/23/24 15:28:00 EDT, Height, kg, 1... Tresiba FlexTouch 100 units/mL 3 mL subcutaneous solution: Dose : 60 unit(s) =, Subcutaneous, qDay,# 15 mL, 3 Refill(s) acetaminophen-oxyCODONE 325 mg-5 mg oral tablet: Dose = 1 tab(s), Oral, TID, PRN for pain, # 90 tab(s), 0 Refill(s), [id number], Chronic knee 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, 168, cm, 09/23/24 15:28:00 EDT, Height, 101.3, kg, 09/25/24 16:25:00 EDT, Dosing Weight amLODIPine 5 mg oral tablet: Dose : 5 mg = 1 tab(s), Oral, qPM, # 90 tab(s), 3 Refill(s), [id number], Hypertension, 168, cm, 12/26/23 15:54:00 EST, Height, kg, 12/26/23 15:54:00 EST, Dosing Weight atorvastatin 40 mg oral tablet: Dose : 40 mg = 1 tab(s), Oral, qDay, # 90 tab(s), 3 Refill(s), [id number], 168, cm, 12/26/23 15:54:00 EST, Height, kg, 12/26/23 15:54:00 EST, Dosing Weight escitalopram 5 mg oral tablet: Dose : 5 mg = 1 tab(s), Oral, qDay, # 90 tab(s), 3 Refill(s), [id number], 168, cm, 12/26/23 15:54:00 EST, Height, kg, 12/26/23 15:54:00 EST, Dosing Weight ezetimibe 10 mg oral tablet: Dose : 10 mg = 1 tab(s), Oral, qDay, # 90 tab(s), 3 Refill(s), [id number], 168, cm, 12/26/23 15:54:00 EST, Height, kg, 12/26/23 15:54:00 EST, Dosing Weight hydroCHLOROthiazide 25 mg oral tablet: Dose : 25 mg = 1 tab(s), Oral, qDay, # 90 tab(s), 3 Refill(s), [id number], 168, cm, 12/26/23 15:54:00 EST, Height, kg, 12/26/23 15:54:00 EST, Dosing Weight losartan 100 mg oral tablet: Dose : 100 mg = 1 tab(s), Oral, qDay, # 100 tab(s), 3 Refill(s), [id number], 168.5, cm, 09/25/23 13:53:00 EDT, Height, kg, 09/25/23 13:53:00 EDT, DosingWeight pantoprazole 40 mg oral enteric coated tablet: Dose : 40 mg = 1 tab(s), Oral, qDay, # 90 tab(s), 3 Refill(s), [id number], 168, cm, 12/26/23 15:54:00 EST, Height, kg, 12/26/23 15:54:00 EST, Dosing Weight Documented Medications Documented Vitamin D3 25 mcg (1000 intl units) oral capsule: Dose : 25 mcg = 1 cap(s), Oral, Daily, 0 Refill(s) aspirin 81 mg oral delayed release tablet: Dose : 81 mg = 1 tab(s), Oral, qDay, # 30 tab(s), 0 Refill(s), Medications (33) Active Scheduled: (15) amLODIPine 5 mg tablet 5 mg 1 tab(s), Oral, qDay aspirin 81 mg EC 81 mg 1 tab(s), Oral, qDay atorvastatin 40 mg tablet 40 mg 1 tab(s), Oral, qDay cardioplegic [place] formula 1,052.8 mL, Miscellaneous, Once ceFAZolin syringe 2 gram(s) 20 mL, IV Push (INT), PREOP pharm chlorhexidine topical 0.12% Liquid (60 mL) 15 mL, Oral, BID escitalopram 5 mg tablet 5 mg 1 tab(s), Oral, qDay ezetimibe 10 mg tablet 10 mg 1 tab(s), Oral, qDay heparin 10,000 unit(s) 1 mL, Miscellaneous, PREOP pharm insulin lispro 100 units/mL Soln (3 mL) Give 0-5 units/dose, Subcutaneous, achs mupirocin 2% Ointment 22 Gram(s) tube 1 willi, Nostril, each, BID No metformin for 48 hrs post contrast 1 EA, Miscellaneous, Unscheduled No prasugrel (Effient) 7 days before surgery 1 EA, Miscellaneous, Daily NO vitamin E, clopidogrel (Plavix) 5 days before surgery 1 EA, Miscellaneous, Daily pantoprazole 40 mg EC tablet 40 mg 1 tab(s), Oral, qDay Continuous: (8) epinephrine 4 mg + Sodium Chloride 0.9% 250 mL 250 mL, Intravenous heparin 25,000 unit(s) + Dextrose 5% Premix Diluent 250 mL 250 mL, Intravenous, 10 mL/hr insulin regular 100 unit(s) + Sodium Chloride 0.9% 100 mL 100 mL, Intravenous norepinephrine 8 mg + Sodium Chloride 0.9% 250 mL 250 mL, Intravenous Sodium Chloride 0.9% IRR 500 mL + cefuroxime 1.5 gram(s) 500 mL, Topical (CONT) tranexamic acid PMX 1 gram(s) , IV Piggyback tranexamic acid PMX 1 gram(s) , IV Piggyback tranexamic acid PMX 1 gram(s) , IV Piggyback PRN: (10) dextrose 50% Solution Disp syringe 50 mL 12.5 gram(s) 25 mL, IV Push, AsDirected heparin 5,000 units/mL (1 mL) vial 4,000 unit(s) 0.8 mL, IV Push, q6h magnesium sulfate 4 gram(s)/100mL PMX 4 g 100 mL, IV Piggyback, AsDirected magnesium sulfate 50% (500mg/mL) 6 g 12 mL, IV Piggyback, AsDirected magnesium sulfate PMX 2 g 50 mL, IV Piggyback, AsDirected nitroglycerin 0.4 mg Tablet (25/btl) 0.4 mg 1 tab(s), Sublingual, q15min potassium chloride (PMX) 20 mEq/100 mL 20 mEq 100 mL, IV Piggyback, AsDirected potassium chloride 20 mEq ER tablet 20 mEq 1 tab(s), Oral, AsDirected potassium chloride 20 mEq ER tablet 40 mEq 2 tab(s), Oral, AsDirected potassium chloride 20 mEq ER tablet 40 mEq 2 tab(s), Oral, AsDirected Problem list: Medical COPD exacerbation / SNOMED CT 0661822803 / Confirmed Chest pain in adult / SNOMED CT 17253442 / Confirmed Chronic kidney disease / SNOMED CT 3429929281 / Confirmed Stage 3b chronic kidney disease / SNOMED CT 2991637971 / Confirmed Chronic knee 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 / SNOMED CT 3022429553 / Confirmed COPD (chronic obstructive pulmonary disease) / SNOMED CT [id number] / Confirmed CAD IN [place] / SNOMED CT 7558250780 / Confirmed Depression / SNOMED CT 690547765 / Confirmed GERD (gastroesophageal reflux disease) / SNOMED CT [id number] / Confirmed Heart disease / SNOMED CT [id number] / Confirmed History of acute myocardial infarction / SNOMED CT 1865740928 / Confirmed Hypertension / SNOMED CT 92997911 / Confirmed Impotence / SNOMED CT 1555613152 / Confirmed Knee replacement / SNOMED CT 126651757 / Confirmed Long-term insulin use / SNOMED CT 8804093887 / Confirmed Osteoarthritis / SNOMED CT 1555430078 / Confirmed Prostate cancer screening / SNOMED CT 663045173 / Confirmed Screening for colon cancer / SNOMED CT 135129142 / Confirmed Plantar fasciitis, left / SNOMED CT 499681748915847 / Confirmed Hypercholesteremia / SNOMED CT 715766377 / Confirmed Testosterone insufficiency / SNOMED CT [id number] / Confirmed DM2 (diabetes mellitus, type 2) / SNOMED CT 048513009 / Confirmed SMOKELESS TOBACCO USE / SNOMED CT 4661541085 / Confirmed, Active Problems (23) CAD IN [place] Chest pain in adult Chronic kidney disease Chronic knee 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 COPD (chronic obstructive pulmonary disease) COPD exacerbation Depression DM2 (diabetes mellitus, type 2) GERD (gastroesophageal reflux disease) Heart disease History of acute myocardial infarction Hypercholesteremia Hypertension Impotence Knee replacement Long-term insulin use Osteoarthritis Plantar fasciitis, left Prostate cancer screening Screening for colon cancer SMOKELESS TOBACCO USE Stage 3b chronic kidney disease Testosterone insufficiency Histories Past Medical History: Active Knee replacement (847586608): Onset on 09/21/2016 at 55 years. Comments: 09/21/2016 EDT 15:43 EDT - Molly Samaniego RN right total knee replacement Hypercholesteremia (768087533) Depression (580156451) GERD (gastroesophageal reflux disease) ([id number]) Osteoarthritis (4073107426) Heart disease ([id number]) Impotence (5401897842) Testosterone insufficiency ([id number]) COPD (chronic obstructive pulmonary disease) ([id number]) Resolved Post-operative infection (60332986): Onset on 2016 at 55 years. Resolved. Comments: 2016 EST 12:52 EST - NAOMI Long Right knee Stress at home (946738158): Resolved. Family History: Heart disease Mother Father Cancer Mother Father Sister Heart disease Brother Procedure history: Cardiovascular stress testing ([id number]) on 08/04/2021 at 60 Years. Comments: 08/17/2022 10:08 Carmen Moon MA (ABR-OE) Impression: 1. EKG portion of Lexiscan stress test is negative for inducible ischemia. 2. Results of nuclear images will be reported separately. 3. Dr. Cisse was available through telephone/telehealth during stress test. IMPRESSION: Mostly fixed perfusion defect most likely due to diaphragmatic attenuation artifact, no significantchange from prior stress; no significant perfusion defect to suggest ischemia LVEF 47-51% Cardiac catheterisation ([id number]) on 07/03/2018 at 57 Years. Comments: 04/30/2020 10:40 Carmen Moon MA (ABR-OE) Heart Catheterization [07/03/2018]: Right coronary: Proximal vessel lesion: 95%stenosis. LVEF 50-55% Placement of stent ([id number]) on 07/03/2018 at 57 Years. Colonoscopy (554095364) in 2012 at 53 Years. Comments: 07/09/2019 11:31 Estefany Jett RN Within normal limits Stent ([id number]) on 12/29/2011 at 51 Years. Comments: 04/30/2020 10:41 Carmen Moon MA (ABR-OE) Coronary Angioplasty/Stent 07/03/2018- 2011- ([facility]) RCA Cholecystectomy (11763335). Hernia repair ([id number]). Comments: 09/09/2016 15:50 ADRIANA Castillo X5 Knee arthropathy ([id number]). Comments: 09/09/2016 15:51 ADRIANA Castillo SCOPE X 3 Foot arthropathy ([id number]). Comments: 09/09/2016 15:52 ADRIANA Castillo RIGHT FOOT REPAIR Elbow injury ([id number]). Comments: 09/09/2016 15:53 ADRIANA Castillo REPAIR Cataract ([id number]). Arthroplasty of knee (33932642). Comments: 12/20/2016 7:29 SAGE RODRIGUES RN Right Arthroscopy of knee joint (897247901). Comments: 12/20/2016 7:30 SAGE RODRIGUES RN Right x2 post arthroplasty Manipulation of knee joint under anesthetic ([id number]). Social History: Social & Psychosocial Habits Alcohol 4Risk Assessment: Low Risk 11/03/2024 Use: Current Type: Beer Frequency: 1-2 times per year Average drinks per episode in last year: 1 Maximum drinks per episode in last year: 1 Has alcohol use interfered with work or home life: No Do you ever drink more than intended: No Has anyone been hurt or at risk by your drinking: No Ready to change: No Concerns about alcohol use in household: No Employment/School 09/23/2024 Status: Employed Substance Abuse 4Risk Assessment: Denies Substance Abuse 11/03/2024 Use: Never Tobacco 11/03/2024 Tobacco Use: chew Type: Oral (Snuff, Chew) Number of years: 30 Comment: no smoke exposure - 07/09/2019 11:31 - Estefany Sexton RN 11/03/2024 Tobacco Use: Former smoker, quit more Type: Cigarettes Number of years: 20 Stopped at age: 34 Years Exercise Comment: none - 01/27/2020 15:57 - Faye Mcgee LPN Home/Environment 11/03/2024 Domestic Concerns Denies Living situation: Home/Independent Primary Doorkeeper: self Lives In Single level home Current Home Treatments Blood Glucose monitoring Special Services and Community Resources None Financial concerns: No Spouse Name Palak Marital Status of Patient if Patient Independent Adult: Nutrition/Health 11/03/2024 Type of diet: Regular Appetite Good Eating Difficulties None Enteral Feedings No TPN Feedings No Skin Breakdown/Decubitus Ulcers No Caffeine intake amount: 4 servings daily coffee and carbonated beverages Physical Examination General: Alert and oriented. Airway: Normal temporomandibular joint mobility, Normal mouth, Normal throat, Normal neck range of motion, Trachea midline. Mallampati classification: II (soft palate, fauces, uvula visible). Head: Normocephalic. Dentition Evaluation: Intact, Own teeth, Denies loose/chipped teeth. Neck: Supple. Respiratory: Lungs are clear to auscultation, Respirations are non-labored. Cardiovascular: Normal rate, Regular rhythm, No murmur. Heart Sounds: Normal. Gastrointestinal: Soft. Musculoskeletal Normal range of motion. Integumentary: Intact, Warm, Dry. Neurologic: Alert, Oriented. Review / Management Results review: Lab results 11/06/2024 5:57 EST TOOTIE in CVOR Ordered (In Progress) 11/06/2024 5:38 EST Platelet Product Ready Platelet Ready for Pickup 11/06/2024 5:33 EST Oral Intake 0 mL Urine Voided 300 mL 11/06/2024 5:31 EST Individuals Taught Patient Learning Readiness Willing to learn Barriers to Learning None evident Teaching Method Explanation Preferred Spoken Language Citizen [place] Preferred Written Language Citizen [place] Anticoag. Med Educated Heparin Reason/Purpose of Anticoagulant Rx or prevent blood clots Anticoagulation Medication Side effects Demonstrates Self Injection N/A Anticoag Med(s) Teaching Evaluation Verbalizes/Nonverbally indicates understanding 11/06/2024 4:55 EST Urinary Elimination Voiding, no difficulties Status N/A Consent Form Signed No CHG Preoperative Wash/Wipe Day of procedure CHG Skin Prep Completed for Eligible Surgery NPO Status Maintained Bed Bath Independent Oral Care Independent Linen Change Done Patient ID Band on and Verified Yes 11/06/2024 3:50 EST Temperature Oral 36.8 DegC Heart Rate Monitored 65 bpm Respiratory Rate 20 br/min Systolic Blood Pressure Non-Invasive 138 mmHg Diastolic Blood Pressure Non-Invasive 60 mmHg Blood Pressure Method Manual Blood Pressure Location Left arm Blood Pressure Cuff Size Medium Reason For Taking VItal Signs Routine Primary Pain Intensity 0 Primary Pain Nonverbal Response Nods No Pain Scale Type 0-10 Pain scale Monitor Alarms On and Limits Checked Nail Bed Color Meckling Capillary Refill < 2 seconds Heart Sounds ICU S1S2 Heart Rhythm Regular Dorsalis Pedis Pulse, Left 2+ Normal Dorsalis Pedis Pulse, Right 2+ Normal Posttibial Pulse, Left 1+ Thready Posttibial Pulse, Right 1+ Thready Radial Pulse, Left 2+ Normal Radial Pulse, Right 2+ Normal Cardiac Rhythm Sinus rhythm Monitoring Lead III, V1/MCL1 [place] Interval 0.15 second(s) QRS Duration 0.09 second(s) QT Interval 0.43 second(s) QTc Interval 0.44 second(s) Secondary ST Segment Measurement [address] Segment Measurement 0.4 mm Alarms On and Functional Yes Heart Rate Alarm Set At - Low 50 Heart Rate Alarm Set At - High 120 Respirations Unlabored Respiratory Pattern Regular Breath Sounds Auscultated Anterior and posterior All Lobes Breath Sounds Clear, Diminished Cough None Oxygen Therapy Room air Oxygen Saturation 97 % Tracheal Position Midline Abdomen Description Non-distended, Soft Abdomen Palpation Non-Tender, Soft Passing Flatus Yes Bowel Continence Continent Swallowing Disorder None Bowel Sounds All Quadrants Present Urinary Elimination Voiding, no difficulties Urine Color Yellow Urine Description Medium amount Facial Movement Makes facial grimaces, Symmetric resting/crying All Extremity Description Meckling, Normal for ethnicity Skin Temperature Warm Temperature All Extremities Warm Skin Description Meckling, Normal for ethnicity Skin Integrity Pressure points intact Skin Turgor Non-Elastic Mucous Membrane Color Meckling Mucous Membrane Description Moist Sensory Perception Sylvester No impairment Moisture Sylvester Rarely moist Activity Sylvester Walks frequently Mobility Sylvester No limitations Nutrition Sylvester Adequate Friction and Shear Sylvester No apparent problem Sylvester Score 22 Hospital Acquired Pressure Injury Risk None/minimal risk (score 19-23) Double lumen catheter Internal jugular Right Arteriovenous Access Activity: Assessed Arteriovenous Access Patency: Patent Arteriovenous Access Dressing Condition: Clean, Dry, Intact Arteriovenous Access Dressing/Activity: CHG gel pad all-in-one dressing, Dialysis Curos Caps Intact[White] Arteriovenous Access Site Condition: No complications Antecubital Left 11/04/2024 18 gauge Peripheral IV Activity: Assessed Peripheral IV Dressing Condition: Clean, Dry, Intact Peripheral IV Dressing Activity: Transparent dressing Peripheral IV Line Status/Patency: 3ml normal saline flush, 10ml normal saline flush, Continuous infusion Peripheral IV Line Care: Secured with tape Peripheral IV Site Condition: No complications Peripheral IV Equipment: IV Pump Neurological Language Able to speak clearly, Follows simple commands Neurological Symptoms Patient denies Gait Steady Extremity Movement Equal Swallowing Difficulty None Characteristics of Communication Appropriate Characteristics of Speech Clear Facial Symmetry Symmetric Level of Consciousness Alert Aspiration Risk None Eye Opening Response [place] Spontaneously Best Motor Response Jennifer Obeys simple commands Best Verbal Response [place] Oriented [place] Coma Score 15 OMAR Yes Left Pupil Description Regular, Round Right Pupil Description Regular, Round Left Pupil Reaction Brisk Right Pupil Reaction Brisk Pupil Size, Left 3 mm Pupil Size, Right 3 mm Strength All Extremities Strong Left Upper Extremity Sensation Intact Right Upper Extremity Sensation Intact Left Lower Extremity Sensation Intact Right Lower Extremity Sensation Intact CN VII Facial Expression and Symmetry Facial movement symmetrical CN IX, X Swallowing, Gag Reflex Swallowing present Coats Screen Daily History of Fall in Last 3 Months Coats No Presence of Secondary Diagnosis Coats Yes Use of Ambulatory Aid Coats None, bedrest, wheelchair, nurse IV/PRN Adapter Fall Risk Coats Yes Gait Weak or Impaired Fall Risk Coats Normal, bedrest, immobile Mental Status Fall Risk Coats Oriented to own ability Coats Fall Risk Score 35 Violence Risk Confused No Violence Risk Irritable No Violence Risk Boisterous No Violence Risk Verbal Threats No Violence Risk Physical Threats No Violence Risk Attacking Objects No Violence Risk Predictor Score 0 Violence Risk Intervention None Violence Risk Current Interventions None Affect/Behavior Appropriate, Calm Orientation Oriented x 4 BMAT Existing Patient Condition/Safety No order for Strict Bedrest BMAT Level 1: Sit and Shake Sit, side bed/reach midline/shake hands BMAT Level 2: Stretch and Point Seated position, straighten 1 knee; Flex ankle & point toes BMAT Level 3: Stand Stand up w/o assist/Use of assist device BMAT Level 4: Walk March in place; step forward & back each foot BMAT Mobility Level 4 Orientation Assessment Oriented x 4 Assistive Device None Positioning Repositions self Mobility Assistance Level Independent Activity Status ADL Resting Beds/Devices Hospital bed Activity Assistance Independent NPO Status Maintained Standard Safety ID band on, Allergy Band on, Call device within reach, Bed in low position, Wheels locked, Upper/Half-Length side-rails up, Phone within reach, personal items within reach, Safety level maintained, Hazards removed from floor, Non-Slip footwear, Precautions maintained High Risk Safety Room check performed Demonstrates Correct Call Light Use Yes heparin 12 unit(s)/kg/hr unit(s) Dextrose 5% Premix Diluent Dextrose 5% Premix Diluent mL Appetite Good Eating Difficulties None 11/06/2024 3:16 EST Telemetry Telemetry 11/06/2024 2:27 EST WBC 5.9 10^3/mcL RBC 4.02 10^6/mcL LOW Hgb 11.0 G/dL LOW Hct 32.3 % LOW MCV 80.4 fL LOW MCH 27.4 pg MCHC 34.1 G/dL RDW 13.6 % Platelet 185 10^3/mcL MPV 7.3 fL Neutrophil % 63.5 % Lymphocyte % 24.6 % Monocyte % 8.2 % Eosinophil % 2.8 % Basophil % 0.9 % Neutrophil, Absolute 3.7 10^3/mcL Lymphocyte, Absolute 1.4 10^3/mcL Monocyte, Absolute 0.5 10^3/mcL Eosinophil, Absolute 0.2 10^3/mcL Basophil, Absolute 0.1 10^3/mcL APTT 54.5 seconds HI Glucose Level 211 mg/dL HI Glucose Level 211 mg/dL HI Sodium Level 137 mEq/L Sodium Level 137 mEq/L Potassium Level 4.1 mEq/L Potassium Level 4.1 mEq/L Chloride 104 mEq/L Chloride 104 mEq/L CO2 26 mEq/L CO2 26 mEq/L Electrolyte Balance 7.0 mEq/L Electrolyte Balance 7.0 mEq/L BUN 53.0 mg/dL HI BUN 53.0 mg/dL HI Creatinine Lvl (s) 4.70 mg/dL HI Creatinine Lvl (s) 4.70 mg/dL HI BUN/Creatinine Ratio 11.3 ratio BUN/Creatinine Ratio 11.3 ratio Calcium Lvl 8.7 mg/dL Calcium Lvl 8.7 mg/dL Magnesium Lvl 2.4 mg/dL Phosphorus 4.4 mg/dL Albumin Level 2.6 G/dL LOW GFR Non- 13 ml/min/1.73sqm NA GFR 15 ml/min/1.73sqm NA Creatinine Clearance Calc 14.65 mL/min Creatinine Clearance Calc 14.65 mL/min 11/05/2024 23:24 EST Telemetry Telemetry 11/05/2024 23:11 EST Telemetry Telemetry 11/05/2024 23:06 EST Telemetry Telemetry 11/05/2024 22:33 EST Surgical Site Infection Prevention SSI FAQ provided 11/05/2024 22:31 EST Urinary Elimination Voiding, no difficulties Status N/A IV Present Present Double lumen catheter Internal jugular Right Arteriovenous Access Activity: Assessed Arteriovenous Access Patency: Patent Arteriovenous Access Dressing Condition: Clean, Dry, Intact Arteriovenous Access Dressing/Activity: CHG gel pad all-in-one dressing, Dialysis Curos Caps Intact[White] Arteriovenous Access Site Condition: No complications Antecubital Left 11/04/2024 18 gauge Peripheral IV Activity: Assessed Peripheral IV Dressing Condition: Clean, Dry, Intact Peripheral IV Dressing Activity: Transparent dressing Peripheral IV Line Status/Patency: Continuous infusion Peripheral IV Line Care: Secured with tape Peripheral IV Site Condition: No complications Peripheral IV Equipment: IV Pump Consent Form Signed Yes CHG Preoperative Wash/Wipe Night before procedure CHG Skin Prep Completed for Eligible Surgery NPO Status Initiated NPO Since 11/27/2023 0:16 Bed Bath Independent Linen Change Done Patient ID Band on and Verified Yes 11/05/2024 22:26 EST Temperature Oral 36.6 DegC Heart Rate Monitored 72 bpm Respiratory Rate 19 br/min Systolic Blood Pressure Non-Invasive 162 mmHg HI Diastolic Blood Pressure Non-Invasive 66 mmHg Mean Arterial Pressure (NBP) 102 mmHg Blood Pressure Method Automatic Blood Pressure Location Left arm Blood Pressure Cuff Size Medium Reason For Taking VItal Signs Routine Primary Pain Intensity 0 Primary Pain Nonverbal Response Nods No Pain Scale Type 0-10 Pain scale Monitor Alarms On and Limits Checked (Modified) Nail Bed Color Meckling Capillary Refill < 2 seconds Heart Sounds ICU S1S2 Heart Rhythm Regular Dorsalis Pedis Pulse, Left 2+ Normal Dorsalis Pedis Pulse, Right 2+ Normal Radial Pulse, Left 2+ Normal Radial Pulse, Right 2+ Normal Cardiac Rhythm Sinus rhythm Monitoring Lead III, V1/MCL1 [place] Interval 0.15 second(s) QRS Duration 0.15 second(s) QT Interval 0.43 second(s) QTc Interval 0.45 second(s) Secondary ST Segment Measurement -0.[address] Segment Measurement 0.3 mm Alarms On and Functional Yes Heart Rate Alarm Set At - Low 50 Heart Rate Alarm Set At - High 120 Respirations Unlabored Respiratory Pattern Regular Breath Sounds Auscultated Anterior and posterior All Lobes Breath Sounds Clear, Diminished Cough None Oxygen Therapy Room air Oxygen Saturation 99 % Tracheal Position Midline Abdomen Description Non-distended Abdomen Palpation Non-Tender Passing Flatus Yes Bowel Continence Continent Swallowing Disorder None Bowel Sounds All Quadrants Present Urinary Elimination Voiding, no difficulties Skin Temperature Warm Skin Description Meckling, Dry Skin Integrity Pressure points intact Skin Turgor Non-Elastic Mucous Membrane Color Meckling Mucous Membrane Description Moist Neurological Symptoms Patient denies Level of Consciousness Alert Eye Opening Response [place] Spontaneously OMAR Yes Strength All Extremities Strong Assistive Device None Positioning Repositions self Mobility Assistance Level Independent Up to Chair Returned to bed Activity Status ADL Awake Beds/Devices Hospital bed Activity Assistance Independent Standard Safety ID band on, Allergy Band on, Call device within reach, Bed in low position, Wheels locked, Upper/Half-Length side-rails up, Phone within reach, personal items within reach, Safety level maintained, Hazards removed from floor, Non-Slip footwear, Precautions maintained High Risk Safety Room check performed Demonstrates Correct Call Light Use Yes heparin 12 unit(s)/kg/hr unit(s) Dextrose 5% Premix Diluent Dextrose 5% Premix Diluent mL Appetite Good 11/05/2024 22:25 EST atorvastatin 40 mg mg mupirocin topical 1 willi willi 11/05/2024 22:18 EST chlorhexidine topical 15 mL mL 11/05/2024 22:00 EST insulin lispro Not Done: Below Sliding Scale (Not Done) 11/05/2024 21:40 EST Oral Intake 500 mL Urine Voided 720 mL 11/05/2024 21:35 EST Individuals Taught Patient Learning Readiness Willing to learn Barriers to Learning None evident Teaching Method Explanation Preferred Spoken Language Citizen Of [place] Preferred Written Language Citizen [place] Anticoag. Med Educated Heparin Reason/Purpose of Anticoagulant Rx or prevent blood clots Anticoagulation Medication Side effects Demonstrates Self Injection N/A Anticoag Med(s) Teaching Evaluation Verbalizes/Nonverbally indicates understanding 11/05/2024 21:34 EST Cardiac Rehab Session Held No Post Rehab Outcome Continue same step Cardiac Rehab - Phase I Cardiac Rehab - Phase I 11/05/2024 21:33 EST Post Rehab Outcome Not Done: Previous shift/nurse (Not Done) CAM Mental Status Change & Fluctuation Not Done: Previous shift/nurse (Not Done) CAM Inattention Not Done: Previous shift/nurse (Not Done) CAM Disorganized Thinking Not Done: Previous shift/nurse (Not Done) CAM Altered Level of Consciousness Not Done: Previous shift/nurse (Not Done) Confusion Assessment Method Score Not Done: Previous shift/nurse (Not Done) Cardiac Rehab - Phase I Not Done (Not Done) 11/05/2024 21:27 EST CHG Preoperative Wash/Wipe Night before procedure, Site specific wipe Bed Bath Independent, Supervision, Setup Linen Change Done 11/05/2024 21:26 EST Blood Glucose Testing Reason Routine Stated Blood Glucose 128 11/05/2024 20:21 EST Heart Rate Monitored 69 bpm Reason For Taking VItal Signs Routine Primary Pain Intensity 0 Primary Pain Nonverbal Response Nods No Pain Scale Type 0-10 Pain scale Monitor Alarms On and Limits Checked Nail Bed Color Meckling Capillary Refill < 2 seconds Heart Sounds ICU S1S2 Heart Rhythm Regular Dorsalis Pedis Pulse, Left 2+ Normal Dorsalis Pedis Pulse, Right 2+ Normal Posttibial Pulse, Left 1+ Thready Posttibial Pulse, Right 1+ Thready Radial Pulse, Left 2+ Normal Radial Pulse, Right 2+ Normal Cardiac Rhythm Sinus rhythm Monitoring Lead III, V1/MCL1 AZ Interval 0.14 second(s) QRS Duration 0.07 second(s) QT Interval 0.37 second(s) QTc Interval 0.39 second(s) ST Segment Measurement 1.[address] Segment Measurement -0.[address] Segment Measurement 1.[address] Segment Measurement -0.1 mm Alarms On and Functional Yes Heart Rate Alarm Set At - Low 50 Heart Rate Alarm Set At - High 120 Respirations Unlabored Respiratory Pattern Regular Breath Sounds Auscultated Anterior and posterior All Lobes Breath Sounds Clear, Diminished Cough None Oxygen Therapy Room air Tracheal Position Midline Abdomen Description Non-distended, Soft Abdomen Palpation Non-Tender, Soft Passing Flatus Yes Bowel Continence Continent Swallowing Disorder None Bowel Sounds All Quadrants Present Urinary Elimination Voiding, no difficulties Urine Color Yellow Urine Description Medium amount Facial Movement Makes facial grimaces, Symmetric resting/crying All Extremity Description Meckling, Normal for ethnicity Skin Temperature Warm Temperature All Extremities Warm Skin Description Meckling, Normal for ethnicity Skin Integrity Pressure points intact Skin Turgor Non-Elastic Mucous Membrane Color Meckling Mucous Membrane Description Moist Sensory Perception Sylvester No impairment Moisture Sylvester Rarely moist Activity Sylvester Walks frequently Mobility Sylvester No limitations Nutrition Sylvester Adequate Friction and Shear Sylvester No apparent problem Sylvester Score 22 Hospital Acquired Pressure Injury Risk None/minimal risk (score 19-23) Double lumen catheter Internal jugular Right Arteriovenous Access Activity: Assessed Arteriovenous Access Patency: Patent Arteriovenous Access Dressing Condition: Clean, Dry, Intact Arteriovenous Access Dressing/Activity: CHG gel pad all-in-one dressing, Dialysis Curos Caps Intact[White], Dialysis Curos Caps Changed [White] Arteriovenous Access Site Condition: No complications Antecubital Left 11/04/2024 18 gauge Peripheral IV Activity: Assessed Peripheral IV Dressing Condition: Clean, Dry, Intact Peripheral IV Dressing Activity: Transparent dressing Peripheral IV Line Status/Patency: Continuous infusion Peripheral IV Line Care: Secured with tape Peripheral IV Site Condition: No complications Peripheral IV Equipment: IV Pump Radial Artery Right Vascular Access Site Condition: No complications Vascular Access Distal Pulses: Palpable Vascular Access Dressing Activity: Bandaid dressing Vascular Access Dressing Condition: Clean, Dry, Intact Neurological Language Able to speak clearly, Follows simple commands Neurological Symptoms Patient denies Gait Steady Extremity Movement Equal Swallowing Difficulty None Characteristics of Communication Appropriate Characteristics of Speech Clear Facial Symmetry Symmetric Level of Consciousness Alert Aspiration Risk None Eye Opening Response [place] Spontaneously Best Motor Response Jennifer Obeys simple commands Best Verbal Response [place] Oriented [place] Coma Score 15 OMAR Yes Left Pupil Description Regular, Round Right Pupil Description Regular, Round Left Pupil Reaction Brisk Right Pupil Reaction Brisk Pupil Size, Left 3 mm Pupil Size, Right 3 mm Strength All Extremities Strong Left Upper Extremity Sensation Intact Right Upper Extremity Sensation Intact Left Lower Extremity Sensation Intact Right Lower Extremity Sensation Intact CN VII Facial Expression and Symmetry Facial movement symmetrical CN IX, X Swallowing, Gag Reflex Swallowing present Coats Screen Daily History of Fall in Last 3 Months Coats No Presence of Secondary Diagnosis Coats Yes Use of Ambulatory Aid Coats None, bedrest, wheelchair, nurse IV/PRN Adapter Fall Risk Coats Yes Gait Weak or Impaired Fall Risk Coats Normal, bedrest, immobile Mental Status Fall Risk Coats Oriented to own ability Coats Fall Risk Score 35 Violence Risk Confused No Violence Risk Irritable No Violence Risk Boisterous No Violence Risk Verbal Threats No Violence Risk Physical Threats No Violence Risk Attacking Objects No Violence Risk Predictor Score 0 Violence Risk Intervention None Violence Risk Current Interventions None Affect/Behavior Appropriate, Calm Orientation Oriented x 4 BMAT Existing Patient Condition/Safety No order for Strict Bedrest BMAT Level 1: Sit and Shake Sit, side bed/reach midline/shake hands BMAT Level 2: Stretch and Point Seated position, straighten 1 knee; Flex ankle & point toes BMAT Level 3: Stand Stand up w/o assist/Use of assist device BMAT Level 4: Walk March in place; step forward & back each foot BMAT Mobility Level 4 Orientation Assessment Oriented x 4 Assistive Device None Positioning Repositions self Up to Chair Remains up in chair Activity Status ADL Awake, Watching TV Beds/Devices Hospital bed Activity Assistance Independent Standard Safety ID band on, Allergy Band on, Call device within reach, Bed in low position, Wheels locked, Upper/Half-Length side-rails up, Phone within reach, personal items within reach High Risk Safety Room check performed Demonstrates Correct Call Light Use Yes heparin 12 unit(s)/kg/hr unit(s) Dextrose 5% Premix Diluent Dextrose 5% Premix Diluent mL Appetite Good Eating Difficulties None 11/05/2024 19:52 EST Temperature Oral 36.4 DegC Heart Rate Monitored 77 bpm Respiratory Rate 16 br/min Systolic Blood Pressure Non-Invasive 142 mmHg HI Diastolic Blood Pressure Non-Invasive 80 mmHg Blood Pressure Method Manual Blood Pressure Location Left arm Blood Pressure Cuff Size Medium Reason For Taking VItal Signs Routine Oxygen Therapy Room air Oxygen Saturation 97 % Assistive Device None Positioning Repositions self Up to Chair Remains up in chair Activity Status ADL Awake, Watching TV Activity Assistance Independent Standard Safety ID band on, Allergy Band on, Call device within reach, Bed in low position, Wheels locked, Upper/Half-Length side-rails up, Phone within reach, personal items within reach High Risk Safety Room check performed Demonstrates Correct Call Light Use Yes 11/05/2024 19:42 EST APTT 54.4 seconds HI 11/05/2024 18:11 EST Notify date/time 11/05/2024 18:11 Provider Notified LAUREEN BIRD MD Notification Method Answering service Information Communicated Consult Details Communicated consult for l carotid 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 tomorrow Person Reporting Result(s) nunn Heart Rate Monitored 72 bpm 11/05/2024 17:00 EST insulin lispro Not Done: Below Sliding Scale (Not Done) 11/05/2024 16:46 EST Stated Blood Glucose 149 Heart Rate Monitored 81 bpm Systolic Blood Pressure Non-Invasive 157 mmHg HI Diastolic Blood Pressure Non-Invasive 88 mmHg Mean Arterial Pressure (NBP) 111 mmHg 11/05/2024 16:18 EST Patient Information Note hd tx completed Admission Weight 96.6 kg Weight Lbs 212.5 lb Temperature Skin 36.4 DegC Heart Rate Monitored 72 bpm Respiratory Rate 17 br/min Systolic Blood Pressure Non-Invasive 189 mmHg HI Diastolic Blood Pressure Non-Invasive 93 mmHg HI Reason For Taking VItal Signs Procedure post-care Primary Pain Intensity 0 Pain Scale Type 0-10 Pain scale Heart Rhythm Regular Cardiac Rhythm Sinus rhythm Monitoring Lead II Alarms On and Functional Yes Respirations Unlabored Respiratory Pattern Regular Double lumen catheter Internal jugular Right Arteriovenous Access Activity: Accessed Arteriovenous Access Patency: Patent Arteriovenous Access Dressing Condition: Clean, Dry, Intact Arteriovenous Access Dressing/Activity: CHG gel pad all-in-one dressing, Dialysis Curos Caps Changed [White], Dialysis Tegos Caps Intact Arteriovenous Access Site Condition: No complications Level of Consciousness Alert Affect/Behavior Appropriate, Calm, Cooperative Orientation Oriented x 4 Accompanied By Staff Monitor, Nurse, Transporter Intrahospital Transfer Mode Bed Nurse Giving Report ADRIANA Hunt Nurse Receiving Report ADRIANA Longoria (Modified) Date/Time Nurse Received Report 11/05/2024 16:21 Transfer to CCU Patient ID Band on and Verified Yes 11/05/2024 16:17 EST Dialysis Treatment Complete 11/05/2024 15:59 Dialysis Tmt Ultrafiltation Removed 1,000 mL Dialysis Treatment Blood Returned Yes Dialysis Tmt Dialyzer Cleared Good Double Lumen Saline Flush-Arterial 10 mL Double Lumen Saline Flush-Venous 10 mL Caps Intact Yes 11/05/2024 15:58 EST Dialysis w/Catheter Charge Complete Dialysis Hemo Acute Charge Complete 11/05/2024 15:32 EST Progress Note Cardiology Progress Note 11/05/2024 15:31 EST Patient Information Note Patient resting VSS Heart Rate Monitored 68 bpm Systolic Blood Pressure Non-Invasive 142 mmHg HI Diastolic Blood P (more content not included)... [id number] Progress note Date of Service 11/05/2024 Chief Complaint Chest pain transferred from [facility] There were no acute events overnight. Patient had no complaints of chest pain, shortness of breath or diaphoresis. Objective Vitals and Measurements T: 36.6 C (Skin) TMIN: 36.4 C (Oral) TMAX: 36.7 C (Oral) HR: 68 (Monitored) RR: 17 BP: 142/85 SpO2:98% WT: 97.7 kg Intake and Output 7AM Yesterday to 7AM Today Intake and Output (Last 24 hours) Intake Oral Intake 118.00 Output Urine Voided 1600.00 Total Summary Total Intake 118.00 Total Output 1600.00 Fluid Balance -1482.00 Physical Exam General Appearance: Alert and oriented in no acute distress Head: Normocephalic, atraumatic EENT: Moist oral mucosa Neck: Supple Cardiac: Regular rate and rhythm, no murmur Respiratory: Clear to auscultation bilaterally, without crackles or rales Abdomen: Soft, nontender to deep palpation, normoactive bowel sounds Musculoskeletal: No joint deformity, no muscle tenderness Extremities: 2+ pulses, no pedal edema Neurological: Alert and oriented x3, no focal deficit Skin: Warm and dry, no rash Psychiatric: Normal mood and affect Weight Dosing Weight: 97.7 kg (11/05/24) Dosing Weight: 97.3 kg (11/04/24) Medications Medications (33) Active Scheduled: (15) amLODIPine 5 mg tablet 5 mg 1 tab(s), Oral, qDay aspirin 81 mg EC 81 mg 1 tab(s), Oral, qDay atorvastatin 40 mg tablet 40 mg 1 tab(s), Oral, qDay cardioplegic [place] formula 1,052.8 mL, Miscellaneous, Once ceFAZolin syringe 2 gram(s) 20 mL, IV Push (INT), PREOP pharm chlorhexidine topical 0.12% Liquid (60 mL) 15 mL, Oral, BID escitalopram 5 mg tablet 5 mg 1 tab(s), Oral, qDay ezetimibe 10 mg tablet 10 mg 1 tab(s), Oral, qDay heparin 10,000 unit(s) 1 mL, Miscellaneous, PREOP pharm insulin lispro 100 units/mL Soln (3 mL) Give 0-5 units/dose, Subcutaneous, achs mupirocin 2% Ointment 22 Gram(s) tube 1 willi, Nostril, each, BID No metformin for 48 hrs post contrast 1 EA, Miscellaneous, Unscheduled No prasugrel (Effient) 7 days before surgery 1 EA, Miscellaneous, Daily NO vitamin E, clopidogrel (Plavix) 5 days before surgery 1 EA, Miscellaneous, Daily pantoprazole 40 mg EC tablet 40 mg 1 tab(s), Oral, qDay Continuous: (8) epinephrine 4 mg + Sodium Chloride 0.9% 250 mL 250 mL, Intravenous heparin 25,000 unit(s) + Dextrose 5% Premix Diluent 250 mL 250 mL, Intravenous, 10 mL/hr insulin regular 100 unit(s) + Sodium Chloride 0.9% 100 mL 100 mL, Intravenous norepinephrine 8 mg + Sodium Chloride 0.9% 250 mL 250 mL, Intravenous Sodium Chloride 0.9% IRR 500 mL + cefuroxime 1.5 gram(s) 500 mL, Topical (CONT) tranexamic acid PMX 1 gram(s) , IV Piggyback tranexamic acid PMX 1 gram(s) , IV Piggyback tranexamic acid PMX 1 gram(s) , IV Piggyback PRN: (10) dextrose 50% Solution Disp syringe 50 mL 12.5 gram(s) 25 mL, IV Push, AsDirected heparin 5,000 units/mL (1 mL) vial 4,000 unit(s) 0.8 mL, IV Push, q6h magnesium sulfate 4 gram(s)/100mL PMX 4 g 100 mL, IV Piggyback, AsDirected magnesium sulfate 50% (500mg/mL) 6 g 12 mL, IV Piggyback, AsDirected magnesium sulfate PMX 2 g 50 mL, IV Piggyback, AsDirected nitroglycerin 0.4 mg Tablet (25/btl) 0.4 mg 1 tab(s), Sublingual, q15min potassium chloride (PMX) 20 mEq/100 mL 20 mEq 100 mL, IV Piggyback, AsDirected potassium chloride 20 mEq ER tablet 20 mEq 1 tab(s), Oral, AsDirected potassium chloride 20 mEq ER tablet 40 mEq 2 tab(s), Oral, AsDirected potassium chloride 20 mEq ER tablet 40 mEq 2 tab(s), Oral, AsDirected Lab Results 11/05 03:42 WBC: 6.4 Hgb: 11.6 L Hct: 33.3 L Platelet: 207 Neutrophil %: 67.5 Glucose Level: 90 Glucose Level: 90 Sodium Level: 139 Sodium Level: 139 Potassium Level: 3.8 Potassium Level: 3.8 BUN: 71.0 H BUN: 71.0 H Creatinine Lvl (s): 5.52 H Creatinine Lvl (s): 5.52 H 11/04 06:47 WBC: 6.5 Hgb: 11.5 L Hct: 33.9 L Platelet: 217 Neutrophil %: 59.2 Protime: 10.4 PT International Ratio: 0.9 Glucose Level: 122 H Sodium Level: 142 Potassium Level: 3.8 BUN: 81.0 H Creatinine Lvl (s): 5.72 H Imaging Results and Diagnostics IR Temporary Dialysis Catheter Result Date: November 05, 2024 Verified By: CAMPBELL CALLE DO CLINICAL STATEMENT: IMPRESSION: 1. Successful placement of a temporary hemodialysis catheter NOTE: Temporary hemodialysis catheter intended for inpatient use only.Removal or conversion to a permanent tunneled catheter required prior tohospital discharge. Procedure performed by Katelyn Caal PA-C, under direct supervision ofLadan Zazueta PA-C Renal Result Date: November 05, 2024 Verified By: BENJAMIN BARRERA DO CLINICAL STATEMENT: IMPRESSION: 1. Small bilateral renal cysts.2. No acute surgical abnormality. CT Thorax w/o Contrast Result Date: November 04, 2024 Verified By: Ekaterina_RAFA salazar CLINICAL STATEMENT: IMPRESSION: 1. Mild calcification at the aortic root involving the anterior right [place] posterior evangelista.2. Multiple pulmonary nodules. Most significant: Solid pulmonary nodulemeasuring 4 mm.Per Fleischner Society Guidelines, no routine follow-up imaging isrecommended.These guidelines do not apply to immunocompromised patients and patients withcancer. Follow up in patients with significant comorbidities as clinicallywarranted. For lung cancer screening, adhere to Lung-RADS guidelines.Reference: Radiology. 2017; 284(1):228-43.3. Advanced coronary ASVD. EKG No qualifying data available. Assessment/Plan [facility] 11/04 multivessel disease Elevated troponins Elevated proBNP JIMMY on CKD This is a 64-year-old gentleman with past medical history of hypertension, diabetes mellitus, COPD,CAD s/p PCI, CKD who presented to [facility] due to chest pain which started when he was getting ready for bed. He was noted to have nonspecific ST T wave changes as well as troponin elevation at [facility]. His chest pain improved with nitroglycerin. Patient transferred to [place] for further evaluation. Heart score is 6 -Patient underwent PCI on 11/04/2024 and was found to have multivessel disease. -CABG is scheduled for tomorrow 11/06/2024 -Nephrology is following the patient to monitor renal function. Today creatinine 5.5 and GFR is 10.Per cardiothoracic surgery patient needs to be metabolically stable for surgery tomorrow. -Plan was for patient to undergo dialysis today. Digitally Signed by BRITTON GONZALEZ MD on 11/05/2024 05:28 PM [facility] [id number] NoteORIGINAL PROCEDURE: 1. Temporary hemodialysis catheter placement with fluoroscopy and ultrasound FLOOR RUNNER: Katelyn Caal PA-C CLINICAL STATEMENT: JIMMY on CKD MATERIALS UTILIZED: 14 Fr 20 cm SLX Hemo-Cath double lumen catheter Probe cover Micropuncture set 2-0 Ethibond suture ANESTHESIA: Local FLUOROSCOPY: 0.7 minutes AIR KERMA DOSE: 12.30 mGy SITE OF PUNCTURE: Right internal jugular vein The procedure, risks, and alternatives, were discussed with the patient and all questions were answered. Written informed consent obtained. Accompanying paperwork was verified for accuracy. Directed history and physical exam performed prior to the procedure. Medication reconciliation performed by nursing personnel. Procedure was performed using a cap, sterile gown, sterile gloves, a large sterile sheet, hand hygiene and 2% chlorhexidine for cutaneous antisepsis. The patient was positioned supine on the table and prepped and draped in usual sterile fashion. A critical pause was performed with assisting personnel just prior to the procedure with the patient's identity confirmed using 2 identifiers, confirming site and side. Preliminary ultrasound of the target vessel demonstrated a widely patent vein and an image was obtained. 2% lidocaine was administered at the puncture site for local anesthesia. A tiny skin incision was made. The vein was cannulated under direct sonographic guidance with a micropuncture set. A wire was advanced into the IVC. After serial dilatation, the catheter was advanced over the wire under fluoroscopy. The wire was removed. Fluoroscopy demonstrated the catheter tip to be near the cavoatrial junction. A final fluoroscopic image was obtained. All lumens were aspirated and flushed with saline. Sterile caps were attached to each lumen. The catheter was fixed to the skin with suture. A sterile dressing was placed. COMPLICATIONS: None. EBL: Minimal PATIENT CONDITION: Stable, unchanged. IMPRESSION: 1. Successful placement of a temporary hemodialysis catheter NOTE: Temporary hemodialysis catheter intended for inpatient use only. Removal or conversion to a permanent tunneled catheter required prior to hospital discharge. Procedure performed by Katelyn Caal PA-C, under direct supervision of Ladan Zazueta PA-C Interpreted by: Campbell Calle DO Preliminary Report By: Katelyn Caal Electronically signed By Campbell Calle DO Dictated Date: 11/05/2024 1:02:11 PM Prelim Date: 11/05/2024 1:04:14 PM Sign Date: 11/05/2024 3:21:29 PM Ordering Provider: [facility]12-10-2024 Procedure note IR Brief Post Procedure Note Preprocedure Dx: JIMMY on CKD Post Procedure Dx: Same Procedure: 1. Temporary HD Catheter Placement Colleter: Katelyn Caal PA-C Director Digital Analytics: None Anesthesia: Local EBL: Minimal Complications: None Status: Stable Findings: 1. Successful Temporary HD catheter placed in RIGHT IJ. Both lumens flush and aspirate quickly. 2. Patient tolerated the procedure well. Plan: 1. May use now. Full report to follow. Orders in [employer]. Katelyn Caal PA-C Interventional Radiology IR Dept [id number] Available on [employer] Digitally Signed by KATELYN CAAL PA-C on 11/05/2024 12:28 PM [id number] Note IR Procedure Record Summary Primary Physician: LADAN ZAZUETA PA-C Finalized Date/Time: 11/05/24 12:25:20 Pt. Name: NICHOLS VELBOBBY De Oliveira/Sex: 1960 Male Med Rec #: [id number] Physician: SALMA AYOUB MD Financial #: [id number] Pt. Type: I Room/Bed: 0361/A Admit/Disch: 11/04/24 04:16:00 - Institution: Allergies identified in patient's electronic medical record at time of printing on 11/05/24 Entry 1 Entry 2 Substance Bee Stings lisinopril Reaction Type Allergy Side Effect Last Modified By: ADRIANA Tompkins 10/15/16 Jeanne Perla MA 00:55:08 (ABR-OE) 05/25/23 13:56:01 Case Attendance- IR Entry 1 Entry 2 Entry 3 Case Attendee RADHA, KATELYN ALEGRIA PA-C, PA-C, Pluck Separator [place] Role Performed Primary Surgeon Physician Director Digital Analytics Scrub Technologist Details Time In 11/05/24 11:48:00 11/05/24 11:48:00 11/05/24 11:48:00 Time Out 11/05/24 12:30:00 11/05/24 12:30:00 11/05/24 12:30:00 Procedure/Preference IR Temporary Dialysis IR Temporary Dialysis IR Temporary Dialysis Card Catheter SN Catheter SN Catheter SN Last Modified By: Padmini Shelton RN, Erin N RN Metzger, Erin N RN 11/05/24 12:22:38 11/05/24 12:22:38 11/05/24 12:22:38 Entry 4 Case Attendee Padmini Shelton RN Role Performed Procedure Nurse Details Time In 11/05/24 11:48:00 Time Out 11/05/24 12:30:00 Procedure/Preference IR Temporary Dialysis Card Catheter SN Last Modified By: Padmini Shelton RN 11/05/24 12:22:38 Radiology Procedures- IR Entry 1 Procedure/Preference IR Temporary Dialysis Actual Procedure Temp cath Card Catheter SN Primary Procedure Yes Primary Surgeon LADAN ZAZUETA PA-C Anesthesia/Sedation Local Type Additional Procedure Times Start 11/05/24 12:05:00 Stop 11/05/24 12:22:00 Specialty Service SN Radiology Procedure EBL 3 mL Last Modified By: Padmini Shelton RN 11/05/24 12:22:40 Radiology Procedure Details - IR Entry 1 Radiology Sedation Case Times Sedation Total Time 0 Radiology - Fluid/Drainage Radiology Contrast Contrast Used? No Radiology Flouroscopy Fluoroscopy Used? Yes Fluoro Dose (mGy) 12.30 Fluoro Time 0.7 mins Radiology Local Local Used? Yes Local Type: lido 2% Local Dose 10 mL Radiology Procedure Site Site/Location right neck, chest, IJ Site Condition No complications Suture 2.0 Ethibond Suture Dressing Type Tagaderm Last Modified By: Padmini Shelton RN 11/05/24 12:23:23 General Case Data - IR Entry 1 Case Information Room AH IR 16 Case Level IR Level 2 Wound Class None Specialty SN Radiology Procedure ASA Class None Diagnosis Preop Diagnosis temp dialysis line Postop Same As Preop Yes insertion Postop Diagnosis temp dialysis line insertion Last Modified By: Padmini Shelton RN 11/05/24 12:00:04 Procedure Case Times- IR Entry 1 Patient In Procedure Patient In OR 11/05/24 11:48:00 Patient Out of OR 11/05/24 12:30:00 Procedure Start/Stop Procedure Start Time 11/05/24 12:05:00 Procedure Stop Time 11/05/24 12:22:00 Last Modified By: Padmini Shelton RN 11/05/24 12:22:37 Immediate Post OP Note - IR Entry 1 Immediate Post Yes Procedure Note displayed for Physician to review Closure Technique Closure Technique Other than Primary Last Modified By: Padmini Shelton RN 11/05/24 11:59:31 Immediate Post OP Note - IR Signed By: KATELYN CAAL PA-C 11/05/24 12:22 Allergy Information- IR Entry 1 Allergies Reviewed? Yes Allergies Reviewed Patient With Last Modified By: Padmini Shelton RN 11/05/24 11:54:56 Radiology Protocols/Time Out- IR Entry 1 Preprocedure Clinician Verifies Correct patient ID When Clinically Confirmation of correct using name & date Indicated side(s) and site(s), or MRN, Accurate Correct diagnostic and procedure, complete radiology tests Informed Consent, H & P available, Required update immediately blood products, prior to procedure, if implants, devices applicable and/or special equipment available OR/Procedure Room/Bedside Time 11/05/24 12:05:00 Clinician Verifies Correct patient identity including EMR & records using name and date or medical record number, Accurate procedure consent form, Correct patient position, Necessary equipment is available, Anticipated non-routine events with surgical team (case duration, estimated blood loss, patient specific concerns)., Long patient factors for recovery and management identified with surgical team. When Applicable Confirmation correct Team Members LADAN ZAZUETA PA-C, side and site marked, Present for Time Out KATELYN CAAL PA-C, Relevant images and Richard Sullivan, results are properly Padmini Shelton RN labeled and appropriately displayed, Alcohol based prep dry, Double verification of sterility indicators complete Instrument Sterility Team Members LADAN ZAZUETA PA-C, Verifying Sterility KATELYN CAAL PA-C, Richard Sullivan Procedure IR Temporary Dialysis Catheter SN Last Modified By: Padmini Shelton RN 11/05/24 12:06:30 Skin Prep- IR Entry 1 Procedure IR Temporary Dialysis Catheter SN Skin Prep Prep Area Chest Side Right By Richard Sullivan Prep Agents Chloraprep Hair Removal Method N/A Last Modified By: Padmini Shelton RN 11/05/24 11:59:12 Patient Positioning- IR Entry 1 Procedure IR Temporary Dialysis Body Position OP Supine Catheter SN Feet Uncrossed? Yes Pressure Points Yes Checked Last Modified By: Padmini Shelton RN 11/05/24 11:59:22 Radiology Procedure Plan - IR Entry 1 Radiology - Nursing Care Plan Outcome Statement The patient Outcome Statement The patient receives demonstrates knowledge Cont. appropriate of the expected medication(s), safely responses to the administered during the operative/invasive perioperative/invasive procedure., The period., The patient is patient's value system, free from signs and lifestyle, ethnicity, symptoms of injury and culture are caused by extraneous considered, respected, objects (equipment, and incorporated in the instrumentation, perioperative plan of sponges, or sharps). care., The patient is free from signs and symptoms of infection., The patient is free from signs and symptoms of injury related to positioning. Radiology - Action Plan Outcomes Met? Yes Biological Inspector Padmini Shelton RN Completing Procedure Plan Last Modified By: Padmini Shelton RN 11/05/24 11:59:42 Case Comments Finalized By: Padmini Shelton RN Document Signatures Signed By: Padmini Shelton RN 11/05/24 12:23 Padmini Shelton RN 11/05/24 12:25 [facility] [id number] Note* Exam Date Time Procedure Performing Provider Status 11/05/24 10:41 AM Echocardiogram, Adult - CV ERNIE PETTY MD; Auth (Verified) [facility] [id number] Note* Exam Date Time Procedure Performing Provider Status 11/05/24 8:48 AM VL Carotid US/Dopple r Complete - CV LAUREEN BIRD MD; Auth (Verified) [facility] [id number] Progress note Date of Service 11/04/2024 Chief Complaint Chest pain transferred from [facility] Subjective Patient still complains of chest pain. He said it's improved at 4/10 from 1010 on admission. Chestpain is not radiating. he denies palpitations, SOB, nausea or vomting. Objective Vitals and Measurements T: 36.9 C (Oral) TMIN: 36.4 C (Oral) TMAX: 36.9 C (Oral) HR: 74 (Monitored) RR: 18 BP: 188/81 SpO2:98% HT: 170.2 cm WT: 97.3 kg BMI: 33.59 Intake and Output 7AM Yesterday to 7AM Today Intake and Output (Last 24 hours) Intake Output Urine Count 1.00 Total Summary Total Intake 0.00 Total Output 0.00 Fluid Balance 0.00 Physical Exam General Appearance: Alert and oriented in no acute distress Head: Normocephalic, atraumatic EENT: Moist oral mucosa Neck: Supple, Cardiac: Regular rate and rhythm, no murmur Respiratory: Clear to auscultation bilaterally, without crackles or rales Abdomen: Soft, nontender to deep palpation, normoactive bowel sounds, Musculoskeletal: No joint deformity, no muscle tenderness Extremities: 2+ pulses, no pedal edema Neurological: Alert and oriented x3, no focal deficit Skin: Warm and dry, no rash Psychiatric: Normal mood and affect Weight Dosing Weight: 97.3 kg (11/04/24) Medications Medications (20) Active Scheduled: (8) amLODIPine 5 mg tablet 5 mg 1 tab(s), Oral, qDay aspirin 81 mg EC 81 mg 1 tab(s), Oral, qDay atorvastatin 40 mg tablet 40 mg 1 tab(s), Oral, qDay escitalopram 5 mg tablet 5 mg 1 tab(s), Oral, qDay ezetimibe 10 mg tablet 10 mg 1 tab(s), Oral, qDay insulin lispro 100 units/mL Soln (3 mL) Give 0-5 units/dose, Subcutaneous, achs No metformin for 48 hrs post contrast 1 EA, Miscellaneous, Unscheduled pantoprazole 40 mg EC tablet 40 mg 1 tab(s), Oral, qDay Continuous: (2) heparin 25,000 unit(s) + Dextrose 5% Premix Diluent 250 mL 250 mL, Intravenous, 10 mL/hr NS (0.9% nacl) 1,000 mL 1,000 mL, Intravenous, 75 mL/hr PRN: (10) dextrose 50% Solution Disp syringe 50 mL 12.5 gram(s) 25 mL, IV Push, AsDirected heparin 5,000 units/mL (1 mL) vial 4,000 unit(s) 0.8 mL, IV Push, q6h magnesium sulfate 4 gram(s)/100mL PMX 4 g 100 mL, IV Piggyback, AsDirected magnesium sulfate 50% (500mg/mL) 6 g 12 mL, IV Piggyback, AsDirected magnesium sulfate PMX 2 g 50 mL, IV Piggyback, AsDirected nitroglycerin 0.4 mg Tablet (25/btl) 0.4 mg 1 tab(s), Sublingual, q15min potassium chloride (PMX) 20 mEq/100 mL 20 mEq 100 mL, IV Piggyback, AsDirected potassium chloride 20 mEq ER tablet 20 mEq 1 tab(s), Oral, AsDirected potassium chloride 20 mEq ER tablet 40 mEq 2 tab(s), Oral, AsDirected potassium chloride 20 mEq ER tablet 40 mEq 2 tab(s), Oral, AsDirected Lab Results 11/04 06:47 WBC: 6.5 Hgb: 11.5 L Hct: 33.9 L Platelet: 217 Neutrophil %: 59.2 Protime: 10.4 PT International Ratio: 0.9 Glucose Level: 122 H Sodium Level: 142 Potassium Level: 3.8 BUN: 81.0 H Creatinine Lvl (s): 5.72 H EKG Electrocardiogram (EKG) - InProcess -- 11/04/24 6:26:00 EST Electrocardiogram (EKG) - InProcess -- 11/04/24 11:03:00 EST Assessment/Plan NSTEMI Elevated troponins Elevated proBNP JIMMY on CKD This is a 64-year-old gentleman with past medical history of hypertension, diabetes mellitus, COPD,CAD s/p PCI, CKD who presented to [facility] due to chest pain which started when he was getting ready for bed. He was noted to have nonspecific ST T wave changes as well as troponin elevation at [facility]. His chest pain improved with nitroglycerin. Patient transferred to [place] for further evaluation. Heart score is 6 -Patient underwent PCI today and was found to have multivessel disease. -Cardiothoracic surgery was consulted: Diagnostic testing is in progress for surgical evaluation. Dr. Domingo will speak with nephrology regarding pre-op dialysis -Will continue patient heparin IV 6 hours postop. Patient is on aspirin, ezetimibe and atorvastatin. Patient's creatinine is 5.72. Last creatinine was 3.37 in September 2023. Increase in creatinine is likely due to ischemia. Patient currently does not have a flat examiner. Nephrology was consulted forcardiac cath clearance and are following. Time Spent 30 minutes Digitally Signed by BRITTON GONZALEZ MD on 11/04/2024 07:39 PM [facility] [id number] Cardiothoracic surgery Consult note Date of Service 11/04/2024 Reason for Consultation Multivessel CAD, evaluation for CABG Referring Physician Dr. Guevara History of Present Illness This is a split shared visit with Dr. Domingo This is a 64-year-old male with past medical history of CAD status post 2 MIs in the past and stents, hypertension, COPD, hypothyroidism, chronic kidney disease stage IV, anxiety, history of tobacco use presented earlier this morning with stabbing type chest pain that was radiating to his jaw. Patient states that he has been experiencing chest pain stabbing in nature for the past 6 weeks but it would subside with rest. This was the first time it radiated up into his jaw and did not go away whenhe would rest. He has also had emesis but not related to the chest pain. He thinks the emesis is related to his new medication Jardiance. On admission his BNP was 7824, troponins at 146 and then peaked at 984. He was admitted as a NSTEMI for further evaluation, had a left heart catheterization which demonstrated multivessel disease. Nephrology is following along for acute on chronic kidney disease. We are being asked to evaluate the patient for surgical myocardial revascularization. Of note patient states that he had bronchitis about 3 weeks ago and was treated with antibiotics and cough syrup. Currently still has a cough which is getting better, positive for clear sputum She has risk calculation Procedure Type: Isolated CABG Perioperative Outcome Estimate % Operative Mortality 2.76% Morbidity & Mortality 32.4% Stroke 1.51% Renal Failure NA Reoperation 3.42% Prolonged Ventilation 7.92% Deep Sternal Wound Infection 0.343% Long Hospital Stay (>14 days) 11.8% Short Hospital Stay (<6 days)* 20.5% Review of Systems Constitutional he denies any fever or chills, endorses some fatigue, appetite change due to emesis HEENT wears glasses for reading, has dentures, endorsed a headache when the chest pain was radiating up into his jaw and up further into his head. Denies any hearing loss Respiratory see the HPI Cardiovascular see the HPI Vascular denies varicose veins nonhealing ulcers or history of DVT GI see the HPI, denies abdominal pain or constipation denies pain or burning with urination denies any blood in his urine Neuro denies weakness of his extremities denies numbness or tingling of his extremities Endocrine denies polyuria polydipsia polyphagia Hematology no bleeding or bruising issues denies anemia Musculoskeletal, has chronic right knee pain and hip pain Psychological denies anxiety or depression Physical Exam Vitals and Measurements T: 36.9 C (Oral) TMIN: 36.4 C (Oral) TMAX: 36.9 C (Oral) HR: 72 (Monitored) RR: 18 BP: 180/81 SpO2: 98% HT: 170.2 cm WT: 97.3 kg BMI: 33.59 Weight Dosing Weight: 97.3 kg (11/04/24) Mentation alert, oriented x 3, appropriate, face appears slightly puffy HEENT, head is atraumatic, normocephalic, he is edentulous, no carotid bruit audible, trachea midline, hearing intact Heart S1 and S2 sinus rhythm, no audible murmurs or rubs Lungs end expiratory wheezes noted, occasional moist cough currently nonproductive Abdomen is large rounded soft nontender bowel sounds present Extremities are well-perfused, no pitting edema, pedal pulses +2/3 Neuro moves all of his extremities equally they are strong bilaterally Skin no rashes skin is intact Lab Results 11/04 06:47 WBC: 6.5 Hgb: 11.5 L Hct: 33.9 L Platelet: 217 Neutrophil %: 59.2 Protime: 10.4 PT International Ratio: 0.9 Glucose Level: 122 H Sodium Level: 142 Potassium Level: 3.8 BUN: 81.0 H Creatinine Lvl (s): 5.72 H Assessment/Plan 1. NSTEMI (non-ST elevated myocardial infarction) 2. Hypertension 3. CAD IN [place] 4. COPD (chronic obstructive pulmonary disease) On no home medications States that he was treated for bronchitis about 3 weeks ago with an antibiotic and cough syrup Has residual cough that is productive of clear sputum but it is improving He does have end expiratory wheezes bilaterally to auscultation 5. DM2 (diabetes mellitus, type 2) 6. Hypothyroidism 7. CKD stage 4 due to type 1 diabetes mellitus BUN and creatinine 81 and 5.72 Nephrology following 8. GERD (gastroesophageal reflux disease) Orders: .PharmacyCommunication(No Vitamin E,clopidogrel (Plavix), 5 days before surgery), 1 EA, Miscellaneous, Daily .PharmacyCommunication(No prasugrel (Effient) 7 days before surgery), 1 EA, Miscellaneous, Daily mupirocin topical(mupirocin 2% topical ointment), 1 willi, Nostril, each, BID Blood Gas Panel, 11/04/24 15:24:00 EST, URGENT (collect within 2 hrs), Blood, Oxygen Source: on room air, Once, Nurse Collect, Preferred Lab: Other lab service, Stop date 11/04/24 15:25:00 EST Consult to Case Management/Social Service, 11/04/24 15:24:00 EST, Inpatient Rehabilitation Unit Evaluation, Preop Rehab screening CT Thorax w/o Contrast(Chest CT w/o Contrast), 11/04/24 14:34:00 EST, 11/04/24 14:34:00 EST, Routine, Calcification of the ascending aorta, Wt k.3, [facility], CCU Hepatic Function Panel(HFP), 11/04/24 15:24:00 EST, URGENT (collect within 2 hrs), Blood, Once, Preferred Lab: Other lab service, Stop date 11/04/24 15:25:00 EST Incentive Spirometer, 11/04/24 15:24:00 EST, [id number] Nutritional Supplement Order, 11/04/24 15:24:00 EST, Ensure Compact, 1 serving, TIDM Urinalysis w/ C&S if Indicated, 11/04/24 15:24:00 EST, Routine, Urine, Clean Catch, Once, NurseCollect, Preferred Lab: Other lab service, Stop date 11/04/24 15:25:00 EST Video on Demand, 11/04/24 15:24:00 EST, Once, Patient and family to view cardiothoracic surgery video VL Carotid US/Doppler Complete, 11/04/24 15:24:00 EST, Pre op, Dr. Tammy Armas to read, Surgery Pending, Portable, Surgery plan is for Monday. Please do Carotids Monday, [facility], CCU, 11/04/24 15:24:00 EST Plan: Diagnostic testing in progress, surgical evaluation as per Dr. Domingo's addendum Dr. Domingo to talk to nephrology regarding preop dialysis I spent 45 minutes independently seeing this patient, reviewing the chart, interviewing and documenting the consult Problem List/Past Medical History Ongoing CAD IN [place] Chronic kidney disease Chronic knee 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 COPD (chronic obstructive pulmonary disease) COPD exacerbation Depression DM2 (diabetes mellitus, type 2) GERD (gastroesophageal reflux disease) Heart disease History of acute myocardial infarction Hypercholesteremia Hypertension Impotence Knee replacement Long-term insulin use Osteoarthritis Plantar fasciitis, left Prostate cancer screening Screening for colon cancer SMOKELESS TOBACCO USE Stage 3b chronic kidney disease Testosterone insufficiency Historical Post-operative infection Stress at home Procedure/Surgical History Cardiovascular stress testin08/04/21 Colonoscopy: 2012 Stent: 12/29/11 Arthroscopy of knee joint Manipulation of knee joint under anesthetic Arthroplasty of knee Cataract Cholecystectomy Hernia repair Medications Inpatient amLODIPine, 5 mg= 1 tab(s), Oral, qDay aspirin 81 mg oral delayed release tablet, 81 mg= 1 tab(s), Oral, qDay atorvastatin, 40 mg= 1 tab(s), Oral, qDay Betadine 10% topical solution Bicitra, 30 mL, Oral, PREOP pharm Bolus LR 1000 mL, 1000 mL, IV Bolus, PREOP pharm CeleBREX, 400 mg= 2 cap(s), Oral, PREOP pharm Cyklokapron IVPB Decadron, 10 mg= 1 mL, IV Push, AsDirected Dextrose 50% IV Push, 12.5 gram(s)= 25 mL, IV Push, AsDirected, PRN escitalopram, 5 mg= 1 tab(s), Oral, qDay ezetimibe, 10 mg= 1 tab(s), Oral, qDay Heparin for IV 25,000 unit(s) + Dextrose 5% Premix Diluent 250 mL Heparin HBW CARDIAC Bolus 5000 units/mL, 4000 unit(s)= 0.8 mL, 60 unit(s)/kg, IV Push, q6h, PRN HumaLOG 100 units/mL subcutaneous solution, Give 0-5 units/dose, Subcutaneous, achs Kefzol magnesium sulfate for IV bolus, 2 gram(s)= 50 mL, IV Piggyback, AsDirected, PRN magnesium sulfate for IV bolus, 4 gram(s)= 100 mL, IV Piggyback, AsDirected, PRN magnesium sulfate for IV bolus mupirocin 2% topical ointment, 1 willi, Nostril, each, BID Naropin 25 mg + Toradol 15 mg + EPINEPHrine 1 mg/mL injectable solution 0.3 mg + morphine 2.5 mg Naropin 25 mg + Toradol 15 mg + EPINEPHrine 1 mg/mL injectable solution 0.3 mg + morphine 2.5 mg nitroglycerin 0.4 mg sublingual tablet, 0.4 mg= 1 tab(s), Sublingual, q15min, PRN NO METFORMIN (Glucophage) X 48hrs-patient has received contrast, 1 EA, Miscellaneous, Unscheduled No prasugrel (Effient) 7 days before surgery, 1 EA, Miscellaneous, Daily No Vitamin E,clopidogrel (Plavix), 5 days before surgery, 1 EA, Miscellaneous, Daily NS 1,000 mL, 1000 mL, Intravenous OxyCONTIN, 10 mg= 1 tab(s), Oral, PREOP pharm pantoprazole, 40 mg= 1 tab(s), Oral, qDay Pepcid IV, 20 mg= 2 mL, IV Push, PREOP pharm potassium chloride, 20 mEq= 1 tab(s), Oral, AsDirected, PRN potassium chloride, 40 mEq= 2 tab(s), Oral, AsDirected, PRN potassium chloride, 40 mEq= 2 tab(s), Oral, AsDirected, PRN potassium chloride bolus, 20 mEq= 100 mL, IV Piggyback, AsDirected, PRN Home acetaminophen-oxyCODONE 325 mg-5 mg oral tablet, 1 tab(s), Oral, TID, PRN amLODIPine 5 mg oral tablet, 5 mg= 1 tab(s), Oral, qPM, 3 refills aspirin 81 mg oral delayed release tablet, 81 mg= 1 tab(s), Oral, qDay atorvastatin 40 mg oral tablet, 40 mg= 1 tab(s), Oral, qDay, 3 refills escitalopram 5 mg oral tablet, 5 mg= 1 tab(s), Oral, qDay, 3 refills ezetimibe 10 mg oral tablet, 10 mg= 1 tab(s), Oral, qDay, 3 refills hydroCHLOROthiazide 25 mg oral tablet, 25 mg= 1 tab(s), Oral, qDay, 3 refills Jardiance 10 mg oral tablet, 10 mg= 1 tab(s), Oral, qAM, 11 refills losartan 100 mg oral tablet, 100 mg= 1 tab(s), Oral, qDay, 3 refills pantoprazole 40 mg oral enteric coated tablet, 40 mg= 1 tab(s), Oral, qDay, 3 refills Rybelsus 7 mg oral tablet, 7 mg= 1 tab(s), Oral, qDay, 3 refills Tresiba FlexTouch 100 units/mL 3 mL subcutaneous solution, 60 unit(s), Subcutaneous, qDay, 3 refills Vitamin D3 25 mcg (1000 intl units) oral capsule, 25 mcg= 1 cap(s), Oral, Daily Allergies Bee Stings lisinopril Cough Social History Smoking Status - 07/03/2018 Current some day smoker Alcohol - Low Risk, 07/03/2018 Use: Current. Type: Beer. Frequency: 1-2 times per year. Average drinks per day: 1. Maximum drinks per episode in last year: 1. Has alcohol use interfered with work or home life: No. Do you ever drink more than intended: No. Has anyone been hurt or at risk by your drinking: No. Ready to change: No.Concerns about alcohol use in household: No., 09/09/2022 Employment/School Status: Employed., 01/27/2020 Exercise Home/Environment Domestic Concerns: Denies. Living situation: Home/Independent. Primary Doorkeeper: self. Lives In: Single level home. Current Home Treatments Blood Glucose monitoring. Professional Skilled Services or Special Community Resources None. Financial concerns: No. Spouse Name: Palak. Marital Status: ., 09/09/2022 Nutrition/Health Type of diet: Regular. Appetite Good. Eating Difficulties None. Enteral Feedings No. TPN Feedings No. Skin Breakdown No. Caffeine intake amount: 4 servings daily coffee and carbonated beverages., 08/03/2021 Substance Abuse - Denies Substance Abuse, 07/02/2018 Use: Never., 07/09/2019 Tobacco Nicotine Use: Former smoker, quit more than 30 days ago. Type: Cigarettes. Number of years: 20. Stopped at age: 34 Years., 09/09/2022 Nicotine Use: chew. Type: Oral (Snuff, Chew). Number of years: 30., 09/09/2022 Family History Cancer: Mother, Father and Sister. Heart disease: Mother and Father. Heart disease: Brother. Health Status Family Member(s) Immunizations SARS-CoV-2 (COVID-19) Ad26 vaccine: 0.5 unknown unit (02/04/21) tetanus/diphth/pertuss (Tdap) adult/adol: 0.5 unknown unit (12/24/20) Digitally Signed by DENISE CHAVEZ on 11/04/2024 03:38 PM [id number] Progress note Date of Service 11/04/2024 Chief Complaint Chest pain transferred from [facility] Subjective Patient still complains of chest pain. He said it's improved at 4/10 from 09/05 on admission. Chestpain is not radiating. he denies palpitations, SOB, nausea or vomting. Objective Vitals and Measurements T: 36.9 C (Oral) TMIN: 36.4 C (Oral) TMAX: 36.9 C (Oral) HR: 74 (Monitored) RR: 18 BP: 188/81 SpO2:98% HT: 170.2 cm WT: 97.3 kg BMI: 33.59 Intake and Output 7AM Yesterday to 7AM Today Intake and Output (Last 24 hours) Intake Output Urine Count 1.00 Total Summary Total Intake 0.00 Total Output 0.00 Fluid Balance 0.00 Physical Exam General Appearance: Alert and oriented in no acute distress Head: Normocephalic, atraumatic EENT: Moist oral mucosa Neck: Supple, Cardiac: Regular rate and rhythm, no murmur Respiratory: Clear to auscultation bilaterally, without crackles or rales Abdomen: Soft, nontender to deep palpation, normoactive bowel sounds, Musculoskeletal: No joint deformity, no muscle tenderness Extremities: 2+ pulses, no pedal edema Neurological: Alert and oriented x3, no focal deficit Skin: Warm and dry, no rash Psychiatric: Normal mood and affect Weight Dosing Weight: 97.3 kg (11/04/24) Medications Medications (20) Active Scheduled: (8) amLODIPine 5 mg tablet 5 mg 1 tab(s), Oral, qDay aspirin 81 mg EC 81 mg 1 tab(s), Oral, qDay atorvastatin 40 mg tablet 40 mg 1 tab(s), Oral, qDay escitalopram 5 mg tablet 5 mg 1 tab(s), Oral, qDay ezetimibe 10 mg tablet 10 mg 1 tab(s), Oral, qDay insulin lispro 100 units/mL Soln (3 mL) Give 0-5 units/dose, Subcutaneous, achs No metformin for 48 hrs post contrast 1 EA, Miscellaneous, Unscheduled pantoprazole 40 mg EC tablet 40 mg 1 tab(s), Oral, qDay Continuous: (2) heparin 25,000 unit(s) + Dextrose 5% Premix Diluent 250 mL 250 mL, Intravenous, 10 mL/hr NS (0.9% nacl) 1,000 mL 1,000 mL, Intravenous, 75 mL/hr PRN: (10) dextrose 50% Solution Disp syringe 50 mL 12.5 gram(s) 25 mL, IV Push, AsDirected heparin 5,000 units/mL (1 mL) vial 4,000 unit(s) 0.8 mL, IV Push, q6h magnesium sulfate 4 gram(s)/100mL PMX 4 g 100 mL, IV Piggyback, AsDirected magnesium sulfate 50% (500mg/mL) 6 g 12 mL, IV Piggyback, AsDirected magnesium sulfate PMX 2 g 50 mL, IV Piggyback, AsDirected nitroglycerin 0.4 mg Tablet (25/btl) 0.4 mg 1 tab(s), Sublingual, q15min potassium chloride (PMX) 20 mEq/100 mL 20 mEq 100 mL, IV Piggyback, AsDirected potassium chloride 20 mEq ER tablet 20 mEq 1 tab(s), Oral, AsDirected potassium chloride 20 mEq ER tablet 40 mEq 2 tab(s), Oral, AsDirected potassium chloride 20 mEq ER tablet 40 mEq 2 tab(s), Oral, AsDirected Lab Results 11/04 06:47 WBC: 6.5 Hgb: 11.5 L Hct: 33.9 L Platelet: 217 Neutrophil %: 59.2 Protime: 10.4 PT International Ratio: 0.9 Glucose Level: 122 H Sodium Level: 142 Potassium Level: 3.8 BUN: 81.0 H Creatinine Lvl (s): 5.72 H EKG Electrocardiogram (EKG) - InProcess -- 11/04/24 6:26:00 EST Electrocardiogram (EKG) - InProcess -- 11/04/24 11:03:00 EST Assessment/Plan NSTEMI Elevated troponins Elevated proBNP JIMMY on CKD This is a 64-year-old gentleman with past medical history of hypertension, diabetes mellitus, COPD,CAD s/p PCI, CKD who presented to [facility] due to chest pain which started when he was getting ready for bed. He was noted to have nonspecific ST T wave changes as well as troponin elevation at [facility]. His chest pain improved with nitroglycerin. Patient transferred to [place] for further evaluation. Heart score is 6 -Patient underwent PCI today and was found to have multivessel disease. -Cardiothoracic surgery was consulted: Diagnostic testing is in progress for surgical evaluation. Dr. Domingo will speak with nephrology regarding pre-op dialysis -Will continue patient heparin IV 6 hours postop. Patient is on aspirin, ezetimibe and atorvastatin. Patient's creatinine is 5.72. Last creatinine was 3.37 in September 2023. Increase in creatinine is likely due to ischemia. Patient currently does not have a flat examiner. Nephrology was consulted forcardiac cath clearance and are following. Time Spent 30 minutes Digitally Signed by BRITTON GONZALEZ MD on 11/04/2024 07:39 PM [facility] [id number] Evaluation + Plan noteExtracted from: Title:History and Physical Author:DOMINGO PHELPS Date:11/04/24 NSTEMI Elevated troponins Elevated proBNP JIMMY on CKD ? DVT prophylaxis CODE STATUS Plan: Patient presented with chest pain which was initially on exertion however started at rest today. He was noted to have nonspecific ST T wave changes as well as troponin elevation at [facility]. His chest pain improved after nitroglycerin. Heart score is 6 Given his risk factors patient likely would require a left side heart cath for further evaluation. We will order repeat troponin Repeat labs i.e. CBC, BMP, magnesium, Echocardiogram TSH, A1c and lipid profile Patient is noted to have elevated NT proBNP at 7824 could be due to his underlying kidney function. No obvious signs of heart failure present on physical exam. Patient's creatinine is 5.39 with BUN 80. Upon chart review previous creatinine ranges between 2. 7 3 however that was in 2022 therefore this could be a new baseline for his CKD. We will order urine studies for evaluation for possible JIMMY We can consider nephrology consult for further evaluation We will resume home medications such as aspirin, atorvastatin, ezetimibe We will keep patient n.p.o. for Possible left heart cath DVT prophylaxis heparin by weight Full code Future Appointments Appointment Date:11/14/2024 08:00:00 AM Scheduled Provider:SHLOMO GUILLEN Location:[facility] Appointment Type:Telephone Appointment Date:11/22/2024 09:00:00 AM Scheduled Provider:SHLOMO GUILLEN Location:[facility] Appointment Type:[facility] Post Op Appointment Date:12/16/2024 11:15:00 AM Scheduled Provider:CARMEN DYKES Location:[facility] Appointment Type:CV OV Appointment Date:12/23/2024 03:30:00 PM Scheduled Provider:CT DYSON DO Location:[facility] Appointment Type:PC OV Controlled Medication Appointment Date:12/26/2024 04:00:00 PM Scheduled Provider: Location:[facility] Appointment Type:MEDS - Diabetic Individual Visit Diagnostic Tests Pending * Anti-PLA2R 11/09/24 Future Scheduled Tests Laboratory* Basic Metabolic Panel 11/22/24 * Prostate Specific Antigen 09/23/24 * Lipid Profile 09/23/24 * Albumin/Creatinine Ratio, Random Urine 09/23/24 * Complete Metabolic Panel 09/23/24 Radiology* XR Chest 2 Views (PA & Lateral) 11/22/24 [facility] 12-09-2024 Note* Exam Date Time Procedure Performing Provider Status 11/04/24 12:42 PM Cardiac Catheterization -CV RUF KAIA SOTO MD; Auth (Verified) [facility] [id number] Note* Exam Date Time Procedure Performing Provider Status 11/04/24 11:08 AM Electrocardiogram - EKG - CV Celestine ROSALES MD; Auth (Verified) ECG Final Report SINUS RHYTHM LVH WITH IVCD, LAD AND SECONDARY REPOL ABNRM Electronic Signature: KAMERON ROSALES MD 11/05/2024 18:31:49 [facility] [id number] Nephrology Consult note Date of Service November 04, 2024 History of Present Illness Patient is 64 years old. History of 30 years of diabetes type 2. Of coronary artery disease and chronic kidney disease stage IV. 1 year ago he had a creatinine of 3.4 giving him a GFR of 19. Patient presented to an outside hospital with chest discomfort. He has been treating heartburn with an acids. He has a chest discomfort became more severe he presented to an outside hospital where he was found to have elevated cardiac enzymes consistent with non-ST segment elevation myocardial infarction. Patient states that in the last several months his exercise tolerance has decreased. Denies edema fluid retention. Denies orthopnea. He is having ongoing chest discomfort. No nausea. No diaphoresis. Nofevers or chills. No difficulty with urination. Oral intake has been decreased and he is lost weight. He denies use of any NSAIDs. No recent antibiotics. His diabetic medications have been changing over the last several months. Review of Systems As above. Main issue is chest discomfort. Had decreased exercise tolerance as well. Physical Exam Vitals and Measurements T: 36.5 C (Oral) TMIN: 36.4 C (Oral) TMAX: 36.5 C (Oral) HR: 69 (Monitored) RR: 18 BP: 160/78 SpO2:98% HT: 170.2 cm WT: 97.3 kg BMI: 33.59 Weight Dosing Weight: 97.3 kg (11/04/24) General: No distress on room air HEENT: Mucosa was moist, sclera anicteric, extraocular muscles intact, neck veins were flat, no carotid bruits Lungs: Clear bilaterally with no crackles wheezes or rhonchi Heart: Regular with no murmurs rubs or gallops Abdomen: Positive bowel sounds, soft, no palpable masses Extremities: No edema, pulses 2+ in all 4 extremities Skin: No rashes, normal turgor Lab Results 11/04 06:47 WBC: 6.5 Hgb: 11.5 L Hct: 33.9 L Platelet: 217 Neutrophil %: 59.2 Protime: 10.4 PT International Ratio: 0.9 Glucose Level: 122 H Sodium Level: 142 Potassium Level: 3.8 BUN: 81.0 H Creatinine Lvl (s): 5.72 H Assessment/Plan Orders: Sodium Chloride 0.9% intravenous solution 1,000 mL(NS 1,000 mL), 1000 mL, Intravenous Complete Blood Count(CBC), 11/05/24 5:00:00 EST, Next AM Draw (one day only), Blood, Once, Preferred Lab: Other lab service, Stop date 11/05/24 5:00:00 EST Eosinophil Fluid smear - Panel, 11/04/24 10:55:00 EST, Routine, Body Fluid, Once, Nurse Collect, Preferred Lab: Other lab service, Stop date 11/04/24 10:55:00 EST, Urine BAKARI (serum), 11/05/24 5:00:00 EST, Next AM Draw (one day only), Blood, Once, Preferred Lab: Other lab service, Stop date 11/05/24 5:00:00 EST PTH, Intact, 11/05/24 5:00:00 EST, Next AM Draw (one day only), Blood, Once, Preferred Lab: Other lab service, Stop date 11/05/24 5:00:00 EST Renal Function Panel(RFP), 11/05/24 5:00:00 EST, Next AM Draw (one day only), Blood, Once, Preferred Lab: Other lab service, Stop date 11/05/24 5:00:00 EST Uric Acid, 11/05/24 5:00:00 EST, Next AM Draw (one day only), Blood, Once, Preferred Lab: Other labservice, Stop date 11/05/24 5:00:00 EST Urinalysis w/ C&S if Indicated(UA w/ C&S if Indicated), 11/04/24 10:56:00 EST, Routine, Urine, Void, Once, Nurse Collect, Preferred Lab: Other lab service, Stop date 11/04/24 10:56:00 EST US Renal, 11/04/24 10:55:00 EST, 11/04/24 10:55:00 EST, Routine, jimmy, Portable: Yes, Wt k.3, non-Pat facility, CCU 1. Chronic kidney disease stage IV: 1 year ago patient had a GFR approximately 20. This is likely due to diabetic nephropathy. He did have an ultrasound of his kidneys several years ago showing fairly normal-appearing kidneys. None recently. Is unclear whether his worsening kidney function is progression of chronic kidney disease versus an acute insult. We did discuss his risk of contrast nephropathy. We discussed his high risk of requiring renal replacement therapy after heart catheterization. For now I would like to repeat an ultrasound of his kidneys. I will check a urinalysis for protein cells and casts. I will check a spot urine protein creatinine ratio. To check his intact PTH levels and monitor his CBC. Should he have significant proteinuria we will pursue a workup of this further. 2. Acute kidney injury: Kidney function is worse than 1 year ago. As above, is unclear whether thisis progression of his chronic kidney disease versus an acute insult. I will check his urine eosinophils. Check urine for protein and blood. And as above, we will check an ultrasound for obstructive uropathy. Agree with holding ARB for now. Will start hydration prior to his exposure to IV contrast. 3. Non-ST segment elevation myocardial infarction: Patient is having ongoing symptoms. He will require a left heart catheterization. Please limit contrast volume used. Will hold ARB. Begin hydration with normal saline. Does not appear to be fluid overloaded on exam with clear lungs and no JVD. He has no edema. Will monitor volume status closely. Problem List/Past Medical History Ongoing CAD IN MOHEGAN ARTERY Chronic kidney disease Chronic knee 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 COPD (chronic obstructive pulmonary disease) COPD exacerbation Depression DM2 (diabetes mellitus, type 2) GERD (gastroesophageal reflux disease) Heart disease History of acute myocardial infarction Hypercholesteremia Hypertension Impotence Knee replacement Long-term insulin use Osteoarthritis Plantar fasciitis, left Prostate cancer screening Screening for colon cancer SMOKELESS TOBACCO USE Stage 3b chronic kidney disease Testosterone insufficiency Historical Post-operative infection Stress at home Procedure/Surgical History Cardiovascular stress testin08/04/21 Colonoscopy: 2012 Stent: 12/29/11 Manipulation of knee joint under anesthetic Arthroplasty of knee Arthroscopy of knee joint Cataract Cholecystectomy Hernia repair Medications Inpatient amLODIPine, 5 mg= 1 tab(s), Oral, qDay aspirin 81 mg oral delayed release tablet, 81 mg= 1 tab(s), Oral, qDay atorvastatin, 40 mg= 1 tab(s), Oral, qDay Betadine 10% topical solution Bicitra, 30 mL, Oral, PREOP pharm Bolus LR 1000 mL, 1000 mL, IV Bolus, PREOP pharm CeleBREX, 400 mg= 2 cap(s), Oral, PREOP pharm Cyklokapron IVPB Decadron, 10 mg= 1 mL, IV Push, AsDirected Dextrose 50% IV Push, 12.5 gram(s)= 25 mL, IV Push, AsDirected, PRN escitalopram, 5 mg= 1 tab(s), Oral, qDay ezetimibe, 10 mg= 1 tab(s), Oral, qDay Heparin for IV 25,000 unit(s) + Dextrose 5% Premix Diluent 250 mL Heparin HBW CARDIAC Bolus 5000 units/mL, 4000 unit(s)= 0.8 mL, 60 unit(s)/kg, IV Push, q6h, PRN HumaLOG 100 units/mL subcutaneous solution, Give 0-5 units/dose, Subcutaneous, achs Kefzol magnesium sulfate for IV bolus, 2 gram(s)= 50 mL, IV Piggyback, AsDirected, PRN magnesium sulfate for IV bolus, 4 gram(s)= 100 mL, IV Piggyback, AsDirected, PRN magnesium sulfate for IV bolus Naropin 25 mg + Toradol 15 mg + EPINEPHrine 1 mg/mL injectable solution 0.3 mg + morphine 2.5 mg Naropin 25 mg + Toradol 15 mg + EPINEPHrine 1 mg/mL injectable solution 0.3 mg + morphine 2.5 mg nitroglycerin 0.4 mg sublingual tablet, 0.4 mg= 1 tab(s), Sublingual, q15min, PRN NS 1,000 mL, 1000 mL, Intravenous OxyCONTIN, 10 mg= 1 tab(s), Oral, PREOP pharm pantoprazole, 40 mg= 1 tab(s), Oral, qDay Pepcid IV, 20 mg= 2 mL, IV Push, PREOP pharm potassium chloride, 20 mEq= 1 tab(s), Oral, AsDirected, PRN potassium chloride, 40 mEq= 2 tab(s), Oral, AsDirected, PRN potassium chloride, 40 mEq= 2 tab(s), Oral, AsDirected, PRN potassium chloride bolus, 20 mEq= 100 mL, IV Piggyback, AsDirected, PRN Home acetaminophen-oxyCODONE 325 mg-5 mg oral tablet, 1 tab(s), Oral, TID, PRN amLODIPine 5 mg oral tablet, 5 mg= 1 tab(s), Oral, qPM, 3 refills aspirin 81 mg oral delayed release tablet, 81 mg= 1 tab(s), Oral, qDay atorvastatin 40 mg oral tablet, 40 mg= 1 tab(s), Oral, qDay, 3 refills escitalopram 5 mg oral tablet, 5 mg= 1 tab(s), Oral, qDay, 3 refills ezetimibe 10 mg oral tablet, 10 mg= 1 tab(s), Oral, qDay, 3 refills hydroCHLOROthiazide 25 mg oral tablet, 25 mg= 1 tab(s), Oral, qDay, 3 refills Jardiance 10 mg oral tablet, 10 mg= 1 tab(s), Oral, qAM, 11 refills losartan 100 mg oral tablet, 100 mg= 1 tab(s), Oral, qDay, 3 refills pantoprazole 40 mg oral enteric coated tablet, 40 mg= 1 tab(s), Oral, qDay, 3 refills Rybelsus 7 mg oral tablet, 7 mg= 1 tab(s), Oral, qDay, 3 refills Tresiba FlexTouch 100 units/mL 3 mL subcutaneous solution, 60 unit(s), Subcutaneous, qDay, 3 refills Vitamin D3 25 mcg (1000 intl units) oral capsule, 25 mcg= 1 cap(s), Oral, Daily Allergies Bee Stings lisinopril Cough Social History Smoking Status - 07/03/2018 Current some day smoker Alcohol - Low Risk, 07/03/2018 Use: Current. Type: Beer. Frequency: 1-2 times per year. Average drinks per day: 1. Maximum drinks per episode in last year: 1. Has alcohol use interfered with work or home life: No. Do you ever drink more than intended: No. Has anyone been hurt or at risk by your drinking: No. Ready to change: No.Concerns about alcohol use in household: No., 09/09/2022 Employment/School Status: Employed., 01/27/2020 Exercise Home/Environment Domestic Concerns: Denies. Living situation: Home/Independent. Primary Doorkeeper: self. Lives In: Single level home. Current Home Treatments Blood Glucose monitoring. Professional Skilled Services or Special Community Resources None. Financial concerns: No. Spouse Name: Palak. Marital Status: ., 09/09/2022 Nutrition/Health Type of diet: Regular. Appetite Good. Eating Difficulties None. Enteral Feedings No. TPN Feedings No. Skin Breakdown No. Caffeine intake amount: 4 servings daily coffee and carbonated beverages., 08/03/2021 Substance Abuse - Denies Substance Abuse, 07/02/2018 Use: Never., 07/09/2019 Tobacco Nicotine Use: Former smoker, quit more than 30 days ago. Type: Cigarettes. Number of years: 20. Stopped at age: 34 Years., 09/09/2022 Nicotine Use: chew. Type: Oral (Snuff, Chew). Number of years: 30., 09/09/2022 Family History Cancer: Mother, Father and Sister. Heart disease: Mother and Father. Heart disease: Brother. Health Status Family Member(s) Immunizations SARS-CoV-2 (COVID-19) Ad26 vaccine: 0.5 unknown unit (02/04/21) tetanus/diphth/pertuss (Tdap) adult/adol: 0.5 unknown unit (12/24/20) Digitally Signed by EDWARD GRANADOS MD on 11/04/2024 11:03 AM [id number] Note* Exam Date Time Procedure Performing Provider Status 11/04/24 6:58 AM Electrocardiogram - EKG - CV ILIANA ROSALES MD; Auth (Verified) ECG Final Report SINUS RHYTHM LVH WITH IVCD, LAD AND SECONDARY REPOL ABNRM Electronic Signature: KAMERON ROSALES MD 11/05/2024 18:31:25 [facility] [id number] History and physical note Date of Service 11/04/2024 History of Present Illness This is a 64-year-old gentleman with past medical history of hypertension, diabetes mellitus, COPD,CAD s/p PCI, CKD who presented to [facility] due to chest pain which started when he was getting ready for bed. Patient states that the chest pain was substernal and radiated to his jaw, 09/05, stabbing in nature. He states that the chest pain did not resolve [facility] [place] [facility]. He states that he take all of his medications at home. He states that he has been having similar chest pain over the past few weeks however it was mostly on exertion and he thought he was having reflux therefore took Protonix but his symptoms did not resolve this time. Patient denies any orthopnea, lower extremity edema or shortness of breath on exertion. His chest pain improved by receiving nitroglycerin at [facility] however he was noted to have elevated troponins as well as EKG concerning for ST depression therefore [facility] Initial vitals vitals were temperature 36.7, pulse 88, respiratory rate 14, blood pressure 142/79 satting 99% on room air. CBC unremarkable except hemoglobin of 12.5, BMP showed glucose 358, creatinine 5.93, BUN 80. NT proBNP 7824, troponin 146, 236 Patient was transferred to [facility] for further evaluation and management. Review of Systems Constitutional: Denies fever or chills, fatigue or weight loss Eyes: Denies vision changes, denies eye pain Ears, Nose, Mouth & Throat: Denies runny nose, denies sore throat, denies dry mouth Cardiovascular: Endorses chest pain, denies lower limb swelling, shortness of breath, PND orthopnea Respiratory: Denies cough, denies shortness of breath Gastrointestinal: Denies nausea, denies vomiting, denies diarrhea, denies constipation Genitourinary: Denies burning on urination, denies blood in urine Skin: Denies rashes, denies itching Neurological: Denies numbness, denies tingling Psychiatric: Denies anxiety, denies depression Endocrine: Denies heat intolerance, denies cold intolerance Hematologic/Lymphatic: Denies bruising, denies swollen lymph nodes Physical Exam Vitals and Measurements T: 36.4 C (Oral) HR: 70 (Monitored) RR: 18 BP: 165/80 SpO2: 99% HT: 170.2 cm WT: 97.3 kg BMI: 33.59 Weight Dosing Weight: 97.3 kg (11/04/24) General Appearance: Alert and oriented in no acute distress Head: Normocephalic, atraumatic EENT: Moist oral mucosa Neck: Supple, Cardiac: Regular rate and rhythm, no murmur Respiratory: Clear to auscultation bilaterally, without crackles or rales Abdomen: Soft, nontender to deep palpation, normoactive bowel sounds, Musculoskeletal: No joint deformity, no muscle tenderness Extremities: 2+ pulses, no pedal edema Neurological: Alert and oriented x3, no focal deficit Skin: Warm and dry, no rash Psychiatric: Normal mood and affect Lab Results No 36 Hour Lab Data Assessment/Plan NSTEMI Elevated troponins Elevated proBNP JIMMY on CKD ? DVT prophylaxis CODE STATUS Plan: Patient presented with chest pain which was initially on exertion however started at rest today. Hewas noted to have nonspecific ST T wave changes as well as troponin elevation at [facility].His chest pain improved after nitroglycerin. Heart score is 6 Given his risk factors patient likely would require a left side heart cath for further evaluation. We will order repeat troponin Repeat labs i.e. CBC, BMP, magnesium, Echocardiogram TSH, A1c and lipid profile Patient is noted to have elevated NT proBNP at 7824 could be due to his underlying kidney function.No obvious signs of heart failure present on physical exam. Patient's creatinine is 5.39 with BUN 80. Upon chart review previous creatinine ranges between 2. 73 however that was in 2022 therefore this could be a new baseline for his CKD. We will order urine studies for evaluation for possible JIMMY We can consider nephrology consult for further evaluation We will resume home medications such as aspirin, atorvastatin, ezetimibe We will keep patient n.p.o. for Possible left heart cath DVT prophylaxis heparin by weight Full code Problem List/Past Medical History Ongoing CAD IN MOHEGAN ARTERY Chronic kidney disease Chronic knee 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 COPD (chronic obstructive pulmonary disease) COPD exacerbation Depression DM2 (diabetes mellitus, type 2) GERD (gastroesophageal reflux disease) Heart disease History of acute myocardial infarction Hypercholesteremia Hypertension Impotence Knee replacement Long-term insulin use Osteoarthritis Plantar fasciitis, left Prostate cancer screening Screening for colon cancer SMOKELESS TOBACCO USE Stage 3b chronic kidney disease Testosterone insufficiency Historical Post-operative infection Stress at home Procedure/Surgical History Cardiovascular stress testin08/04/21 Colonoscopy: 2012 Stent: 12/29/11 Arthroscopy of knee joint Manipulation of knee joint under anesthetic Arthroplasty of knee Hernia repair Cataract Cholecystectomy Medications Home Medications (18) Active acetaminophen-oxyCODONE 325 mg-5 mg oral tablet 1 tab(s), PRN, Oral, TID amLODIPine 5 mg oral tablet 5 mg = 1 tab(s), Oral, qPM aspirin 81 mg oral delayed release tablet 81 mg = 1 tab(s), Oral, qDay atorvastatin 40 mg oral tablet 40 mg = 1 tab(s), Oral, qDay DME MISCellaneous See Instructions DME MISCellaneous See Instructions DME MISCellaneous See Instructions DME MISCellaneous See Instructions escitalopram 5 mg oral tablet 5 mg = 1 tab(s), Oral, qDay ezetimibe 10 mg oral tablet 10 mg = 1 tab(s), Oral, qDay hydroCHLOROthiazide 25 mg oral tablet 25 mg = 1 tab(s), Oral, qDay Jardiance 10 mg oral tablet 10 mg = 1 tab(s), Oral, qAM losartan 100 mg oral tablet 100 mg = 1 tab(s), Oral, qDay pantoprazole 40 mg oral enteric coated tablet 40 mg = 1 tab(s), Oral, qDay Pen needles 5 mm See Instructions Rybelsus 7 mg oral tablet 7 mg = 1 tab(s), Oral, qDay Tresiba FlexTouch 100 units/mL 3 mL subcutaneous solution 60 unit(s), Subcutaneous, qDay Vitamin D3 25 mcg (1000 intl units) oral capsule 25 mcg = 1 cap(s), Oral, Daily Allergies Bee Stings lisinopril Cough Social History Smoking Status - 07/03/2018 Current some day smoker Alcohol - Low Risk, 07/03/2018 Use: Current. Type: Beer. Frequency: 1-2 times per year. Average drinks per day: 1. Maximum drinks per episode in last year: 1. Has alcohol use interfered with work or home life: No. Do you ever drink more than intended: No. Has anyone been hurt or at risk by your drinking: No. Ready to change: No.Concerns about alcohol use in household: No., 09/09/2022 Employment/School Status: Employed., 01/27/2020 Exercise Home/Environment Domestic Concerns: Denies. Living situation: Home/Independent. Primary Doorkeeper: self. Lives In: Single level home. Current Home Treatments Blood Glucose monitoring. Professional Skilled Services or Special Community Resources None. Financial concerns: No. Spouse Name: Palak. Marital Status: ., 09/09/2022 Nutrition/Health Type of diet: Regular. Appetite Good. Eating Difficulties None. Enteral Feedings No. TPN Feedings No. Skin Breakdown No. Caffeine intake amount: 4 servings daily coffee and carbonated beverages., 08/03/2021 Substance Abuse - Denies Substance Abuse, 07/02/2018 Use: Never., 07/09/2019 Tobacco Nicotine Use: Former smoker, quit more than 30 days ago. Type: Cigarettes. Number of years: 20. Stopped at age: 34 Years., 09/09/2022 Nicotine Use: chew. Type: Oral (Snuff, Chew). Number of years: 30., 09/09/2022 Family History Cancer: Mother, Father and Sister. Heart disease: Mother and Father. Heart disease: Brother. Health Status Family Member(s) Immunizations SARS-CoV-2 (COVID-19) Ad26 vaccine: 0.5 unknown unit (02/04/21) tetanus/diphth/pertuss (Tdap) adult/adol: 0.5 unknown unit (12/24/20) Code Status No qualifying data available. Digitally Signed by DOMINGO PHELPS MD on 11/04/2024 06:27 AM [id number] ORIGINAL EXAMINATION: ONE XRAY VIEW OF THE CHEST 11/03/2024 11:54 pm COMPARISON: 08/03/2021 HISTORY: ORDERING SYSTEM PROVIDED HISTORY: Reason for Exam: chest pain FINDINGS: The cardiomediastinal silhouette appears unchanged. There is no focal consolidation. There is no pulmonary edema. There is no evidence of pleural effusion. There is no evidence of pneumothorax. No fracture is identified. IMPRESSION: No acute abnormality is identified. Interpreted by: Ze Veliz Preliminary Report By: Ze Veliz Electronically signed By Ze Veliz Dictated Date: 11/04/2024 12:02:33 AM Prelim Date: 11/04/2024 12:03:10 AM Sign Date: 11/04/2024 12:03:10 AM [facility]ing [facility] Sinus rhythm LVH with IVCD, LAD and secondary repol abnrm Prolonged QT interval Baseline wander in lead(s) V2 Electronic Signature: TEE VIDES DO 11/04/2024 00:17:03[facility] 07-12-2023 Consult note Author Kirstin Jernigan [facility] June 07, 2023 12:07pm Note Date/Time June 07, 2023 12:0 7pm [facility] Medical Records Department [address] [place] [address] Counseling Note - Pharmacy 06/07/23 1206 MR#: [id number] Acct: [id number] Name: VEL NICHOLS Rep #:[id number] : 1960 62 From: Kirstin Jernigan PCP: Dr. Ct Dyson, DO Status:ADM IN Y Location: MS3 [id number] Pharmacy [place] Med Reconciliation Pharmacy Service has performed discharge medication reconciliation for this patient. Pt to have weekly CK to monitor pravastatin/daptomycin interaction. The patient's discharge medication list was reviewed for discrepancies and discrepancies were resolved. Medications at Discharge Home Medications escitalopram oxalate 5 mg tablet (Lexapro) 10 mg PO DAILY depression 10/15/16 srcviawi-vpy-krcni acid 0.4 mg-lycopene 300 mcg-lutein 250 mcg tablet (Centrum Silver) 1 ea PO DAILY supplement 10/15/16 omeprazole 20 mg capsule,delayed release 20 mg PO DAILY gerd 10/15/16 insulin aspart U-100 100 unit/mL (3 mL) subcutaneous pen (Novolog FlexPen U-100 Insulin aspart) 30 units subcut BID diabetes 01/15/18 insulin degludec 100 unit/mL (3 mL) subcutaneous pen (Tresiba FlexTouch U-100 insulin) 80 unit SQ BID diabetes 01/15/18 montelukast 10 mg tablet 10 mg PO DAILY@1700 #42 tabs 03/22/18 pravastatin 40 mg tablet 40 mg PO QHS 08/24/18 aspirin 81 mg tablet,delayed release 81 mg PO DAILY 05/17/23 cholecalciferol (vitamin D3) 25 mcg (1,000 unit) tablet (Vitamin D3) 25 mcg PO DAILY 05/17/23 daptomycin 500 mg intravenous solution 750 mg IV Q48 40 days #20 ea 06/05/23 meropenem 500 mg intravenous solution 500 mg IV Q12 40 days #80 ea 06/05/23 acetaminophen 500 mg tablet 1,000 mg (2 x 500 mg) PO Q8 #180 tabs 06/06/23 aspirin 81 mg chewable tablet 81 mg PO BID 4 weeks #56 tabs 06/06/23 oxycodone 5 mg tablet 5 - 10 mg (1 - 2 x 5 mg) PO .4-6 hours prn PRN Pain Score 4-10 7 days #60 tabs 06/06/23 06/07/23 1207 <Electronically signed by Kirstin Jernigan> Date _ Kirstin Avina Signature (if applicable): Date CC: ~ Signed [facility] Work Phone: 1(691) 863-870907-12-2023 Progress note Author Seng Salcedo [facility] June 07, 2023 11:59am Note Date/Time June 07, 2023 10:4 3am [facility] Medical Records Department [address] [place] [address] [place] [address] Progress Note - Hospitalist 06/07/23 104 MR#: [id number] Acct: [id number] Name: VEL NICHOLS Cassidy Rep #:[id number] : 1960 62 From: Seng Bermudez PCP: Dr. Ct Dyson, DO Status:ADM IN Location: [place] [id number] Reason for Visit Reason for Visit: Diagnoses Type 2 diabetes mellitus without complications (05/31/23) Essential (primary) hypertension (05/31/23) Atherosclerotic heart disease of [place] coronary artery without angina pectoris (05/31/23) Chronic obstructive pulmonary disease, unspecified (05/31/23) Gastro-esophageal reflux disease without esophagitis (05/31/23) Staphylococcal arthritis, right knee (05/31/23) Pyogenic arthritis, unspecified (05/31/23) Acute kidney failure, unspecified (05/31/23) Infection and inflammatory reaction due to internal right knee prosthesis, initial encounter (05/31/23) Encounter for other preprocedural examination (05/31/23) Presence of right artificial knee joint (05/31/23) Objective Data Objective Data Vital Signs: Vital Signs Temp Pulse Resp BP Pulse Ox O2 Del Method O2 Flow Rate 97.9 F 80 16 158/66 H 98 Room Air 3 06/07/23 03:55 06/07/23 10:34 06/07/23 03:55 06/07/23 03:55 06/07/23 03:55 06/07/23 03:55 05/31/23 15:49 Oxygen Flow Rate (L/min) 3 Oxygen Delivery Method Room Air Weight: 244 lb 11.41 oz Body Mass Index (BMI) 38.3 Intake & Output: Intake and Output for Last 24 Hours 06/05/23 06/06/23 06/07/23 23:59 23:59 23:59 Intake Total 1685 / 1685 1230 / 1830 660 / 660 Output Total 1250 / 1250 600 / 600 Balance 435 / 435 1230 / 1830 60 / 60 Lab / Micro Data 06/07/23 05:45 06/07/23 05:45 Labs: Laboratory Results - last 24 hr 06/06/23 11:17: POC Glucose 183 H 06/06/23 17:04: POC Glucose 76 06/06/23 21:53: POC Glucose 121 H 06/07/23 05:45: WBC 7.9, RBC 3.41 L, Hgb 9.3 L, Hct 30.2 L, MCV 88.6, MCH 27.3, MCHC 30.8 L D, RDW Std Deviation 43.4, RDW Coeff of Alexa 13.4, Plt Count 254, MPV9.4, Immature Gran % (Auto) 0.600, Neut % (Auto) 68.1, Lymph % (Auto) 16.8 L, Sully % (Auto) 9.2, Eos % (Auto) 4.7, Baso % (Auto) 0.6, Absolute Neuts (auto) 5.4, Absolute Lymphs (auto) 1.33, Nucleated RBC % 0, Sodium 145, Potassium 4.7, Chloride 114 H, Carbon Dioxide 28.0, Anion Gap 3 L, BUN 81 H, Creatinine 4.09 H,Estim Creat Clear Calc 17.28, Est GFR (MDRD) Af Amer 19 L, Est GFR (MDRD) Non-Af16 L, BUN/Creatinine Ratio 19.8, Glucose 62 L, Calcium 8.2 L 06/07/23 06:26: POC Glucose 63 L 06/07/23 06:56: POC Glucose 94 Micro: Microbiology 05/31/23 12:17 Tissue - Knee Gram Stain - Final 05/31/23 12:17 Tissue - Knee Wound Culture - Final Pseudomonas aeruginosa Meth. resistant Staph. aureus 05/31/23 12:17 Tissue - Knee Anaerobic Culture - Final No growth in 5 days. 05/31/23 12:15 Tissue - Knee Gram Stain - Final 05/31/23 12:15 Tissue - Knee Wound Culture - Final Meth. resistant Staph. aureus 05/31/23 12:15 Tissue - Knee Anaerobic Culture - Final No growth in 5 days. 05/31/23 11:55 Tissue - Suprapatellar Pouch Gram Stain - Final 05/31/23 11:55 Tissue - Suprapatellar Pouch Wound Culture - Final Meth. resistant Staph. aureus 05/31/23 11:55 Tissue - Suprapatellar Pouch Anaerobic Culture - Final No growth in 5 days. 05/19/23 07:17 Swab (Method) Nasal Screen MRSA/MSSA - Final Physical Exam Narrative Seen and examined. Patient complain of mild right knee pain. Had multiple 5 surgeries in the past. No fever. Patient has marked compensation therefore delaying discharge. General: Alert, Oriented x3, Cooperative HEENT: Atraumatic, PERRLA, EOMI, Normocephalic Oral: Oral mucosa moist. No Gingival or Mucosal Lesions/ Ulcerations Neck: Supple, No JVD, Negative Carotid Bruits Lungs: Air entry diminished in bilateral lung bases. No crepitation/rhonchi Cardiovascular: Regular rate, Regular Rhythm, Normal S1, Normal S2, No murmurs Abdomen: Bowel Sounds Present, Soft, Non Tender, Non-Distended : No renal angle tenderness. No suprapubic tenderness. Extremities: No edema, Capillary Refill Less than 3 Seconds Skin: No rashes, No breakdown Musculoskeletal: Right knee has surgical dressing, Wilder wrap bandage. No Tenderness to Palpation of other joints or Extremities. Has wound VAC. Neurological: Cranial nerves II-XII grossly intact, DTR 2+/4 and Symmetrical, Neuro grossly intact Psych/Mental Status: Normal Affect, Appropriate. Assessment & Plan Assessment/Plan (1) Status post revision of total replacement of right knee: (2) Septic arthritis of knee, right: QUALIFIERS: Septic arthritis organism: staphylococcal Qualified Code(s): M00.061 - Staphylococcal arthritis, right knee PLAN: Plan 1. Septic arthritis/periprosthetic infection of right knee, due to MRSA and Pseudomonas status post revision of total replacement of right knee: Patient hadinitial right total knee arthroplasty in 2017 and shortly thereafter had right periprosthetic knee infection. He had multiple total of 5 revisions. Operativecultures growing Pseudomonas rare growth and rare gram-positive organism. No fever or chills. Patient initially on cefazolin and was started on doxycycline. Antibiotic changed to IV meropenem adjusted to the kidney function. 06/05: Patient was started on linezolid for MRSA after discussion with ID yesterday. Vancomycin not good option because of JIMMY. Doxycycline discontinued 06/06: Patient was seen by ID. Currently on IV meropenem and daptomycin. He wrote prescription for 6 weeks of IV meropenem and daptomycin 06/07: No acute issues. Will need replacement of discharge wound VAC. 2. 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 Cook -No complications -JYOTI titus -Scheduled Tylenol, pain control -Aspirin 81 mg twice daily 06/03: Avoid NSAIDs for pain control Aspirin twice daily for 4 weeks postop. Weightbearing as tolerated. Wound VAC on discharge with twice weekly dressing changes and wound care #Intraoperative knee cultures with Pseudomonas and gram-positive cocci -Patient was on Doxy but is growing Pseudomonas resistant to Zosyn, ID on board and switched him to meropenem #JIMMY on likely CKD stage IIIb most likely diabetic nephropathy -Last creatinine 2.43 on 05/19/2023 however no previous values since 2019 -Creatinine today 3.47, BUN 56 -DC all NSAIDs/avoid all NSAIDs -06/03: Kidney function continues to worsen, monitor I's and O's and daily weights, kidney ultrasound shows bladder wall thickening probably cystitis or chronic bladder outlet obstruction. Radial Drill Press Set Up Operator is consulting. Hold for lethargy/sedation or respiratory rate less than 10/min nephrotoxic medications. UA shows protein high otherwise normal specific gravity, nitrite and LE negative. WBC 0-5 cells. 06/07: Creatinine is 4.09 I think it is nearing his baseline. Radial Drill Press Set Up Operator is following. Nonoliguric, no acute indication of DISTRICT CAPTAIN Hypertension: Blood pressure is elevated. Patient not candidate for WILDER/ARB or diuretic. Started on amlodipine and hydralazine. #Type 2 diabetes mellitus -Glucose checks and sliding scale insulin -Patient had several low blood glucoses, will decrease 80 units of glargine twice daily to 60 units twice daily and decrease the 30 twice daily of short acting to 20 twice daily, low glucoses despite home regimen may be due to JIMMY, continue to monitor and adjust -06/03: Insulin dose adjusted. Glucose 113. Insulin and Humalog insulin further decreased with holding parameters 06/04: Creatinine 4.22. Estimated creatinine clearance 16 mL/min. 711: Creatinine 4.18. #Coronary artery disease -Continue aspirin and statin #GERD -Continue Protonix #COPD -Does not use any inhalers at home at present, will add albuterol as needed #DVT ppx: Aspirin twice daily Charges/Coding Visit Charges Inpatient E&M: 43365 Subs Hosp L2 06/07/23 1159 <Electronically signed by Seng Salcedo MD> Cosigner Signature (if applicable): CC: ~ Signed [facility] Work Phone: 1(506) 741-963307-12-2023 Progress note Author Brinda Foreman [facility] June 07, 2023 11:47am Note Date/Time June 07, 2023 11:4 3am [facility] Medical Records Department [address] [place] [address] Progress Note - Orthopedic 06/07/23 1133 MR#: [id number] Acct: [id number] Name: VEL NICHOLS Cassidy Rep #:[id number] : 1960 62 From: Brinda MCNEIL PCP: Dr. Ct Dyson, DO Status:ADM IN Location: [address] Subjective Subjective Patient is s/p revision right sided total knee arthroplasty with Dr. Cook on 05/31/2023. Patient is postop day 7. Patient resting comfortably in bed. Rates pain 2/ 10 at rest. With movement 8 /10. States taking Tylenol and oxycodone as needed no NSAIDs due to JIMMY. And ice help to relieve pain. Patient has beenup with therapy. Walking with the assit of a walker. Afebrile, no chest pain, shortness of breath, negative calf pain/ erythema, and no other signs of DVT. Objective Data Objective Data Vital Signs: Vital Signs Temp Pulse Resp BP Pulse Ox O2 Del Method O2 Flow Rate 98.0 F 80 18 152/68 H 98 Room Air 3 06/07/23 10:00 06/07/23 10:34 06/07/23 10:00 06/07/23 10:00 06/07/23 10:00 06/07/23 10:00 05/31/23 15:49 Oxygen Flow Rate (L/min) 3 Oxygen Delivery Method Room Air Weight: 111 kg Body Mass Index (BMI) 38.3 Intake & Output: Intake and Output for Last 24 Hours 06/05/23 06/06/23 06/07/23 23:59 23:59 23:59 Intake Total 1685 / 1685 1230 / 1830 660 / 660 Output Total 1250 / 1250 600 / 600 Balance 435 / 435 1230 / 1830 60 / 60 Lab / Micro Data 06/07/23 05:45 06/07/23 05:45 Labs: Laboratory Results - last 24 hr 06/06/23 11:17: POC Glucose 183 H 06/06/23 17:04: POC Glucose 76 06/06/23 21:53: POC Glucose 121 H 06/07/23 05:45: WBC 7.9, RBC 3.41 L, Hgb 9.3 L, Hct 30.2 L, MCV 88.6, MCH 27.3, MCHC 30.8 L D, RDW Std Deviation 43.4, RDW Coeff of Alexa 13.4, Plt Count 254, MPV9.4, Immature Gran % (Auto) 0.600, Neut % (Auto) 68.1, Lymph % (Auto) 16.8 L, Sully % (Auto) 9.2, Eos % (Auto) 4.7, Baso % (Auto) 0.6, Absolute Neuts (auto) 5.4, Absolute Lymphs (auto) 1.33, Nucleated RBC % 0, Sodium 145, Potassium 4.7, Chloride 114 H, Carbon Dioxide 28.0, Anion Gap 3 L, BUN 81 H, Creatinine 4.09 H,Estim Creat Clear Calc 17.28, Est GFR (MDRD) Af Amer 19 L, Est GFR (MDRD) Non-Af16 L, BUN/Creatinine Ratio 19.8, Glucose 62 L, Calcium 8.2 L 06/07/23 06:26: POC Glucose 63 L 06/07/23 06:56: POC Glucose 94 Micro: Microbiology 05/31/23 12:17 Tissue - Knee Gram Stain - Final 05/31/23 12:17 Tissue - Knee Wound Culture - Final Pseudomonas aeruginosa Meth. resistant Staph. aureus 05/31/23 12:17 Tissue - Knee Anaerobic Culture - Final No growth in 5 days. 05/31/23 12:15 Tissue - Knee Gram Stain - Final 05/31/23 12:15 Tissue - Knee Wound Culture - Final Meth. resistant Staph. aureus 05/31/23 12:15 Tissue - Knee Anaerobic Culture - Final No growth in 5 days. 05/31/23 11:55 Tissue - Suprapatellar Pouch Gram Stain - Final 05/31/23 11:55 Tissue - Suprapatellar Pouch Wound Culture - Final Meth. resistant Staph. aureus 05/31/23 11:55 Tissue - Suprapatellar Pouch Anaerobic Culture - Final No growth in 5 days. 05/19/23 07:17 Swab (Method) Nasal Screen MRSA/MSSA - Final Physical Exam Narrative Patient resting comfortably in bed No signs of acute distress Satting well on room air Limb is warm to touch, Sensation intact throughout entire lower extremity, including saphenous, sural, superficial and deep peroneal, and tibial distribution. DP/PT pulses bounding. dorsiflexion/ plantar flexion strength 5/[address] sanguinous drainage appreciated. Calf nontender to palpation, no erythema, no edema. Negative Homans Assessment & Plan Assessment/Plan (1) Infection of prosthetic right knee joint: PLAN: (1) Infection of prosthetic right knee joint: PLAN: 1. S/P revision right total knee replacement patella revision and polyethylene exchange with scarred excision and quadricepplasty POD #7 2. Continue Pain Medications: Tylenol and oxycodone. no nsaids due to JIMMY 3. DVT Prophylaxis: Take 81 mg aspirin twice daily for 4 weeks postoperatively for DVT prophylaxis. Patient denies past history of DVT or pulmonary embolism. 4. PT/OT: Weightbearing as tolerated with walker. We are limiting flexion to get skin rest. 5. H & H: 9.3/28.4, asymptomatic. Postoperative anemia secondary to acute blood loss from surgery without any intra operative complications. begin ferroussulfate and folate today and continue upon discharge. follow up with PCP. 6. Continue postop medical management per medicine: Patient does have stable chronic kidney disease. Patient's chronic kidney disease did worsen initially. Starting to improve. per medicine and nephrology pateint is stable and ok for discharge home. will need nephrology follow up after discharge,2 weeks. will discontinue valsartan per their recs. At this time we will continue to avoid dehydration. NSAIDs have been avoided. Creatinine has been slowly trending down. currently 4.09. JIMMY stable today. 7. Encouraged Incentive Spirometry 8. Postoperative drainage: Wound care nurse is following. Working on obtainingapproval from [place] of Workmen's Comp. for VAC on discharge. We will continue with the wound VAC with continuous setting at 75 mmHg with twice weekly dressingchanges on Monday and . At this time patient will likely need dressingchange , patient will require home health for dressing changes and physical therapy. 9. P JI: Patient has Pseudomonas aeruginosa and MRSA positive cultures. Staff is consistent with original infectious etiology. May likely be the cause of hiscontinued residual stiffness and pain. Considering retained implants and patient has had numerous surgeries and desires to avoid further surgical intervention he would likely be a candidate for chronic suppressive antibiotics. We will proceed with a course of IV antibiotics. Currently on IV meropenem anddaptomycin. We will need Work[employer]'s Comp. approval prior to discharge. PICC line placed. 10. Disposition: PICC line placed, and infectious disease final recommendationsare daptomycin and meropenem IV x 6 weeks. with an ID follow up in 2 weeks. Patient will require home health for changes. case management received approvalfor discharge home with home health. Will plan for discharge home tonight following antibiotic dose at 6pm. We did reach out to primary care physician and they are wishing for the surgeon to controlled medications initially postoperatively for the first 6 weeks. This was discussed with the patient. Hevoiced understanding and agreement. (2) Status post revision of total replacement of right knee: 06/07/23 1147 <Electronically signed by Brinda MCNEIL> Cosigner Signature (if applicable): CC: ~ Signed [facility] Work Phone: [phone]) [phone] Progress note Author Seng Salcedo [facility] June 06, 2023 3:24pm Note Date/Time June 06, 2023 3:24 pm [facility] Medical Records Department [address] [place] [address] [place] [address] Progress Note - Hospitalist 06/06/23 1521 MR#: [id number] Acct: [id number] Name: VEL NICHOLS Rep #:[id number] : 1960 62 From: Seng Bermudez PCP: Dr. Ct Dyson, DO Status:ADM IN Location: [place] [address] Reason for Visit Reason for Visit: Diagnoses Type 2 diabetes mellitus without complications (05/31/23) Essential (primary) hypertension (05/31/23) Atherosclerotic heart disease of [place] coronary artery without angina pectoris (05/31/23) Chronic obstructive pulmonary disease, unspecified (05/31/23) Gastro-esophageal reflux disease without esophagitis (05/31/23) Staphylococcal arthritis, right knee (05/31/23) Pyogenic arthritis, unspecified (05/31/23) Acute kidney failure, unspecified (05/31/23) Infection and inflammatory reaction due to internal right knee prosthesis, initial encounter (05/31/23) Encounter for other preprocedural examination (05/31/23) Presence of right artificial knee joint (05/31/23) Subjective Subjective Patient is doing well. No acute complaints. Objective Data Objective Data Vital Signs: Vital Signs Temp Pulse Resp BP Pulse Ox O2 Del Method O2 Flow Rate 98.9 F 77 18 158/79 H 97 Room Air 3 06/06/23 14:48 06/06/23 14:48 06/06/23 14:48 06/06/23 14:48 06/06/23 14:48 06/06/23 14:48 05/31/23 15:49 Oxygen Flow Rate (L/min) 3 Oxygen Delivery Method Room Air Weight: 244 lb 11.41 oz Body Mass Index (BMI) 38.3 Intake & Output: Intake and Output for Last 24 Hours 06/04/23 06/05/23 06/06/23 23:59 23:59 23:59 Intake Total 1330 / 1330 1685 / 1685 1170 / 1170 Output Total 1100 / 1900 1250 / 1250 Balance 230 / -570 435 / 435 1170 / 1170 Lab / Micro Data 06/06/23 06:08 06/06/23 06:08 Labs: Laboratory Results - last 24 hr 06/05/23 16:21: POC Glucose 88 06/05/23 18:08: U Random Total Protein 484.5 H, Urine Creatinine 78.30, Protein/Creatinin Ratio 6188 H 06/05/23 21:22: POC Glucose 77 06/05/23 22:04: POC Glucose 78 06/06/23 04:27: POC Glucose 60 L 06/06/23 04:54: POC Glucose 85 06/06/23 06:08: WBC 6.5, RBC 3.22 L, Hgb 9.2 L, Hct 28.2 L, MCV 87.6, MCH 28.6, MCHC 32.6, RDW Std Deviation 42.8, RDW Coeff of Alexa 13.5, Plt Count 222, MPV 9.4, Immature Gran % (Auto) 0.300, Neut % (Auto) 69.9, Lymph % (Auto) 15.5 L, Sully % (Auto) 8.9, Eos % (Auto) 4.9, Baso % (Auto) 0.5, Absolute Neuts (auto) 4.6, Absolute Lymphs (auto) 1.01, Nucleated RBC % 0, Sodium 141, Potassium 4.6, Chloride 111 H, Carbon Dioxide 27.0, Anion Gap 3 L, BUN 83 H, Creatinine 4.18 H,Estim Creat Clear Calc 16.91, Est GFR (MDRD) Af Amer 19 L, Est GFR (MDRD) Non-Af15 L, BUN/Creatinine Ratio 19.9, Glucose 141 H, Calcium 8.2 L, Total Creatine Kinase 115 06/06/23 06:44: POC Glucose 162 H 06/06/23 11:17: POC Glucose 183 H Micro: Microbiology 05/31/23 12:17 Tissue - Knee Gram Stain - Final 05/31/23 12:17 Tissue - Knee Wound Culture - Final Pseudomonas aeruginosa Meth. resistant Staph. aureus 05/31/23 12:17 Tissue - Knee Anaerobic Culture - Final No growth in 5 days. 05/31/23 12:15 Tissue - Knee Gram Stain - Final 05/31/23 12:15 Tissue - Knee Wound Culture - Final Meth. resistant Staph. aureus 05/31/23 12:15 Tissue - Knee Anaerobic Culture - Final No growth in 5 days. 05/31/23 11:55 Tissue - Suprapatellar Pouch Gram Stain - Final 05/31/23 11:55 Tissue - Suprapatellar Pouch Wound Culture - Final Meth. resistant Staph. aureus 05/31/23 11:55 Tissue - Suprapatellar Pouch Anaerobic Culture - Final No growth in 5 days. 05/19/23 07:17 Swab (Method) Nasal Screen MRSA/MSSA - Final Physical Exam Narrative Seen and examined. Patient complain of mild right knee pain. Had multiple 5 surgeries in the past. No fever General: Alert, Oriented x3, Cooperative HEENT: Atraumatic, PERRLA, EOMI, Normocephalic Oral: Oral mucosa moist. No Gingival or Mucosal Lesions/ Ulcerations Neck: Supple, No JVD, Negative Carotid Bruits Lungs: Air entry diminished in bilateral lung bases. No crepitation/rhonchi Cardiovascular: Regular rate, Regular Rhythm, Normal S1, Normal S2, No murmurs Abdomen: Bowel Sounds Present, Soft, Non Tender, Non-Distended : No renal angle tenderness. No suprapubic tenderness. Extremities: No edema, Capillary Refill Less than 3 Seconds Skin: No rashes, No breakdown Musculoskeletal: Right knee has surgical dressing, Wilder wrap bandage and ice bag. No Tenderness to Palpation of other joints or Extremities Neurological: Cranial nerves II-XII grossly intact, DTR 2+/4 and Symmetrical, Neuro grossly intact Psych/Mental Status: Normal Affect, Appropriate. Assessment & Plan Assessment/Plan (1) Status post revision of total replacement of right knee: (2) Septic arthritis of knee, right: QUALIFIERS: Septic arthritis organism: staphylococcal Qualified Code(s): M00.061 - Staphylococcal arthritis, right knee PLAN: Plan 1. Septic arthritis/periprosthetic infection of right knee, due to MRSA and Pseudomonas status post revision of total replacement of right knee: Patient hadinitial right total knee arthroplasty in 2017 and shortly thereafter had right periprosthetic knee infection. He had multiple total of 5 revisions. Operativecultures growing Pseudomonas rare growth and rare gram-positive organism. No fever or chills. Patient initially on cefazolin and was started on doxycycline. Antibiotic changed to IV meropenem adjusted to the kidney function. 06/05: Patient was started on linezolid for MRSA after discussion with ID yesterday. Vancomycin not good option because of JIMMY. Doxycycline discontinued 06/06: Patient was seen by ID. Currently on IV meropenem and daptomycin. He wrote prescription for 6 weeks of IV meropenem and daptomycin 2. 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 Cook -No complications -JYOTI titus -Scheduled Tylenol, pain control -Aspirin 81 mg twice daily 06/03: Avoid NSAIDs for pain control Aspirin twice daily for 4 weeks postop. Weightbearing as tolerated. Wound VAC on discharge with twice weekly dressing changes and wound care #Intraoperative knee cultures with Pseudomonas and gram-positive cocci -Patient was on Doxy but is growing Pseudomonas resistant to Zosyn, ID on board and switched him to meropenem #JIMMY on likely CKD stage IIIb -Last creatinine 2.43 on 05/19/2023 however no previous values since 2019 -Creatinine today 3.47, BUN 56 -DC all NSAIDs/avoid all NSAIDs -06/03: Kidney function continues to worsen, monitor I's and O's and daily weights, kidney ultrasound shows bladder wall thickening probably cystitis or chronic bladder outlet obstruction. Radial Drill Press Set Up Operator is consulting. Hold for lethargy/sedation or respiratory rate less than 10/min nephrotoxic medications. UA shows protein high otherwise normal specific gravity, nitrite and LE negative. WBC 0-5 cells. Hypertension: Blood pressure is elevated. Patient not candidate for WILDER/ARB or diuretic. Started on amlodipine and hydralazine. #Type 2 diabetes mellitus -Glucose checks and sliding scale insulin -Patient had several low blood glucoses, will decrease 80 units of glargine twice daily to 60 units twice daily and decrease the 30 twice daily of short acting to 20 twice daily, low glucoses despite home regimen may be due to JIMMY, continue to monitor and adjust -06/03: Insulin dose adjusted. Glucose 113. Insulin and Humalog insulin further decreased with holding parameters 06/04: Creatinine 4.22. Estimated creatinine clearance 16 mL/min. 711: Creatinine 4.18. #Coronary artery disease -Continue aspirin and statin #GERD -Continue Protonix #COPD -Does not use any inhalers at home at present, will add albuterol as needed #DVT ppx: Aspirin twice daily Heart team will sign off. Please call if acute issues arises. Charges/Coding Visit Charges Inpatient E&M: 80029 Subs Hosp L2 06/06/23 4822 <Electronically signed by Seng Salcedo MD> Cosigner Signature (if applicable): CC: ~ Signed [facility] Work Phone: [phone]) 713-720307-11-2023 Discharge summary Author Brinda Foreman [facility] June 06, 2023 1:33pm Note Date/Time June 06, 2023 1:33 pm [facility] Medical Records Department [address] [place] [address] Instructions for Home/Discharge Instructions 06/06/23 1333 MR#: [id number] Acct: [id number] Name: VEL NICHOLS Rep #:[id number] : 1960 62 From: Brinda MCNEIL PCP: Dr. Ct Dyson, Status:ADM IN Discharge Instructions Diet Discharge Diet: No restrictions Activity Discharge Activity: May Shower Ice area for (Minutes): 20 Weight Bearing Status: Weight bearing as tolerated Keep extremity elevated above heart level: Operative Extremity Dressing / Incision Call your doctor if your incision/area has: Continuous Slow Oozing, Sudden Increased Bleeding, Increased Pain/ Swelling, Increased Redness, Foul Smelling Discharge and Swelling at the incision site Call your doctor if you observe: Fever of 101 or Higher, Change in Color, Shortness of breath, Dizziness, Chest pain, Calf discomfort and Uncontrolled pain Remove Dressing in: 5 days Cleanse incision/area with: Soap & Water and Keep Dressing Clean & Dry Follow Up Care Please Follow Up With: [facility] When: as previously scheduled. Test Results: Test results from this visit will be discussed in further detail at your follow- up appointment, if applicable. Discharge Plan Admission Admit Date/Time: 05/31/23 09:47 Attending Provider: Laura Cook Primary Care Provider: Ct Dyson Consulting Providers: Ct Campuzano; Seng Salcedo; Juan Blankenship Discharge Orders/Prescriptions Prescriptions: New meropenem 500 mg Recon Soln 500 mg IV Q12 40 Days Qty: 80 0RF Rx Instructions: stop date 07/16/23. Dx: prosthetic joint infection weekly bmp, cbc, LFT, CK, and ESR. fax to [phone] routine picc care per protocol daptomycin 500 mg Recon Soln 750 mg IV Q48 40 Days Qty: 20 0RF Rx Instructions: stop date 07/16/23. Dx: prosthetic joint infection weekly bmp, cbc, LFT, CK, and ESR. fax to [phone] routine picc care per protocol acetaminophen 500 mg Tablet 1,000 mg PO Q8 Qty: 180 0RF aspirin 81 mg Tablet,Chewable 81 mg PO BID 28 Days Qty: 56 0RF oxycodone 5 mg Tablet 5 - 10 mg PO .4-6 hours prn PRN (Reason: Pain Score 4-10) 7 Days Qty: 60 0RF Continued valsartan 80 MG tablet 80 mg PO DAILY Patient Comments: blood pressure omeprazole 20 MG capsule 20 mg PO DAILY Patient Comments: acid reflux escitalopram oxalate [Lexapro] 5 MG tablet 10 mg PO DAILY Patient Comments: depression Centrum Silver 1 EACH tablet 1 ea PO DAILY Patient Comments: supplement insulin degludec [Tresiba FlexTouch U-100] 100 UNIT/ML insulin pen 80 unit SQ BID insulin aspart U-100 [Novolog FlexPen U-100 Insulin] 100 UNITS/ML insulin pen 30 units subcut BID Patient Comments: BLOOD SUGAR montelukast 10 MG tablet 10 mg PO DAILY@1700 Qty: 42 1RF pravastatin 40 MG tablet 40 mg PO QHS cholecalciferol (vitamin D3) [Vitamin D3] 25 mcg (1,000 unit) Tablet 25 mcg PO DAILY Held aspirin 81 mg Tablet,Delayed Release (Dr/Ec) 81 mg PO DAILY Hold Instructions: Resume on 07/04/23. Discontinued oxycodone-acetaminophen 5-325 mg Tablet 1 tab PO Q8H PRN (Reason: Pain) Referrals / Follow Up: Ct Dyson DO [Primary Care Provider] - Disposition Disposition (needs filled in before D/C Order can be placed): Home Health Service 06/06/23 1333<Electronically signed by Brinda MCNEIL>Brinda MCNEIL CC: Dr. Juan Blankenship MD; Dr. Seng Salcedo MD; Dr. Ct Campuzano MD;Dr. Ct Dyson DO ~ Signed [facility] Work Phone: [phone]) 593-586807-11-2023 Discharge summary Author Brinda Foreman [facility] June 06, 2023 1:32pm Note Date/Time June 06, 2023 1:26 pm [facility] Medical Records Department [address] [place] [address] Discharge Summary 06/06/23 1324 MR#: [id number] Acct: [id number] Name: VEL NICHOLS Rep #:[id number] : 1960 62 From: Brinda MCNEIL PCP: Dr. Ct Dyson DO Status:ADM IN Location: [place] [id number] Providers Date of Admission: 05/31/23 Primary Care Physician: Dr. Ct Dyson, DO Consultations 05/31/23 09:48 Consult: Hospitalist Routine Consulting Provider: Oly Dexter Reason for Consult: post op med management EMERGENT Consult: No MD Notified: Yes Date Notified: 05/31/23 Time Notified: 15:34 Method of Notification: Text 06/01/23 10:34 Consult: Onc/Wound/financial economist Routine Comment: Reason for Consult:: wound VAC right knee 06/02/23 06:04 Consult: Infectious Disease Routine Consulting Provider: Ct Campuzano Reason for Consult: positive culture right revision tka EMERGENT Consult: No MD Notified: Yes Date Notified: 06/02/23 Time Notified: 06:45 Method of Notification: Answering Service 06/03/23 07:41 Consult: Nephrology Routine Consulting Provider: Juan Blankenship Reason for Consult: JIMMY on CKD stage 3b, Cr Cl about 15 EMERGENT Consult: No MD Notified: Yes Date Notified: 06/03/23 Time Notified: 07:42 Method of Notification: Text Reason For Visit: RT TOTAL KNEE REV SCAR DEBRIDE POLY EXCHANGE Diagnosis Discharge Diagnosis (1) Infection of prosthetic right knee joint: Status: Acute Code(s): T84.53XA - Infection and inflammatory reaction due to internal right knee prosthesis, initial encounter Plan: 1. S/P revision right total knee replacement patella revision and polyethylene exchange with scarred excision and quadricepplasty POD #6 2. Continue Pain Medications: Tylenol and oxycodone 3. DVT Prophylaxis: Take 81 mg aspirin twice daily for 4 weeks postoperatively for DVT prophylaxis. Patient denies past history of DVT or pulmonary embolism. 4. PT/OT: Weightbearing as tolerated with walker. We are limiting flexion to get skin rest. 5. H & H: 9.2/28.4, asymptomatic. Postoperative anemia secondary to acute blood loss from surgery without any intra operative complications. begin ferroussulfate and Fe supplements today and continue upon discharge. follow up with PCP. 6. Continue postop medical management per medicine: Patient does have stable chronic kidney disease. Patient's chronic kidney disease did worsen initially. Starting to improve. Appreciate input from medicine service and renal consultation. At this time we will continue to avoid dehydration. NSAIDs have been avoided. Creatinine has been slowly trending down. currently 4.18. JIMMY stable today. 7. Encouraged Incentive Spirometry 8. Postoperative drainage: Wound care nurse is following. Working [place] obtaining[place]val from [place] [employer] for VAC on discharge. We will continue with the wound VAC with continuous setting at 75 mmHg with twice weekly dressingchanges on Monday and . At this time patient will likely need dressingchange , patient will require home health for dressing changes and physical therapy. 9. P JI: Patient has Pseudomonas aeruginosa and MRSA positive cultures. Staff is consistent with original infectious etiology. May likely be the cause of hiscontinued residual stiffness and pain. Considering retained implants and patient has had numerous surgeries and desires to avoid further surgical intervention he would likely be a candidate for chronic suppressive antibiotics. We will proceed with a course of IV antibiotics. Currently on IV meropenem anddaptomycin. We will need [employer]. approval prior to discharge. PICC line placed. 10. Disposition: PICC line placed, and infectious disease final recommendationsare daptomycin and meropenem IV x 6 weeks. with an ID follow up in 2 weeks. Patient will require home health for changes. Case management currently involved for appropriate discharge planning. at this point tracy is stable andready for discharge home pending [employer] approval of wound VAC, and home health for ABX assistance. Continue to focus and work on physical therapy whilein the hospital. We did reach out to primary care physician and they are wishing for the surgeon to controlled medications initially postoperatively for the first 6 weeks. This was discussed with the patient. He voiced understanding and agreement. (2) Status post revision of total replacement of right knee: Status: Acute Code(s): Z96.651 - Presence of right artificial knee joint Medications at Discharge Home Medications escitalopram oxalate 5 mg tablet (Lexapro) 10 mg PO DAILY depression 10/15/16 aizcbuzr-txy-cchuk acid 0.4 mg-lycopene 300 mcg-lutein 250 mcg tablet (Centrum Silver) 1 ea PO DAILY supplement 10/15/16 omeprazole 20 mg capsule,delayed release 20 mg PO DAILY gerd 10/15/16 valsartan 80 mg tablet 80 mg PO DAILY bp 10/15/16 insulin aspart U-100 100 unit/mL (3 mL) subcutaneous pen (Novolog FlexPen U-100 Insulin aspart) 30 units subcut BID diabetes 01/15/18 insulin degludec 100 unit/mL (3 mL) subcutaneous pen (Tresiba FlexTouch U-100 insulin) 80 unit SQ BID diabetes 01/15/18 montelukast 10 mg tablet 10 mg PO DAILY@1700 #42 tabs 03/22/18 pravastatin 40 mg tablet 40 mg PO QHS 08/24/18 aspirin 81 mg tablet,delayed release 81 mg PO DAILY 05/17/23 cholecalciferol (vitamin D3) 25 mcg (1,000 unit) tablet (Vitamin D3) 25 mcg PO DAILY 05/17/23 daptomycin 500 mg intravenous solution 750 mg IV Q48 40 days #20 ea 06/05/23 meropenem 500 mg intravenous solution 500 mg IV Q12 40 days #80 ea 06/05/23 acetaminophen 500 mg tablet 1,000 mg (2 x 500 mg) PO Q8 #180 tabs 06/06/23 aspirin 81 mg chewable tablet 81 mg PO BID 4 weeks #56 tabs 06/06/23 oxycodone 5 mg tablet 5 - 10 mg (1 - 2 x 5 mg) PO .4-6 hours prn PRN Pain Score 4-10 7 days #60 tabs 06/06/23 Hospital Course Summary of Care Provided Hospital Course: Patient is a 62-year-old male status post revision right total knee arthroplastywith Dr. Cook 05/31/2023 he was electively admitted. Postoperatively he had positive cultures for MRSA and Pseudomonas. He also had an acute on chronic kidney injury. This has since stabilized. Infectious disease was consulted andrecommended daptomycin and meropenem IV x6 weeks outpatient with a follow-up in 2 weeks. He did have a PICC placed yesterday and overall has progressed with therapy well with therapy and ready for discharge home pending [employer] approval of the wound VAC and home health. Weight / BMI Weight Weight: 111 kg Body Mass Index (BMI) 38.3 ABG / Lab / Microbiology Data 06/06/23 06:08 06/06/23 06:08 Laboratory: Laboratory Results - last 24 hr 06/05/23 16:21: POC Glucose 88 06/05/23 18:08: U Random Total Protein 484.5 H, Urine Creatinine 78.30, Protein/Creatinin Ratio 6188 H 06/05/23 21:22: POC Glucose 77 06/05/23 22:04: POC Glucose 78 06/06/23 04:27: POC Glucose 60 L 06/06/23 04:54: POC Glucose 85 06/06/23 06:08: WBC 6.5, RBC 3.22 L, Hgb 9.2 L, Hct 28.2 L, MCV 87.6, MCH 28.6, MCHC 32.6, RDW Std Deviation 42.8, RDW Coeff of Alexa 13.5, Plt Count 222, MPV 9.4, Immature Gran % (Auto) 0.300, Neut % (Auto) 69.9, Lymph % (Auto) 15.5 L, Sully % (Auto) 8.9, Eos % (Auto) 4.9, Baso % (Auto) 0.5, Absolute Neuts (auto) 4.6, Absolute Lymphs (auto) 1.01, Nucleated RBC % 0, Sodium 141, Potassium 4.6, Chloride 111 H, Carbon Dioxide 27.0, Anion Gap 3 L, BUN 83 H, Creatinine 4.18 H,Estim Creat Clear Calc 16.91, Est GFR (MDRD) Af Amer 19 L, Est GFR (MDRD) Non-Af15 L, BUN/Creatinine Ratio 19.9, Glucose 141 H, Calcium 8.2 L, Total Creatine Kinase 115 06/06/23 06:44: POC Glucose 162 H Microbiology: Microbiology 05/31/23 12:17 Tissue - Knee Gram Stain - Final 05/31/23 12:17 Tissue - Knee Wound Culture - Final Pseudomonas aeruginosa Meth. resistant Staph. aureus 05/31/23 12:17 Tissue - Knee Anaerobic Culture - Final No growth in 5 days. 05/31/23 12:15 Tissue - Knee Gram Stain - Final 05/31/23 12:15 Tissue - Knee Wound Culture - Final Meth. resistant Staph. aureus 05/31/23 12:15 Tissue - Knee Anaerobic Culture - Final No growth in 5 days. 05/31/23 11:55 Tissue - Suprapatellar Pouch Gram Stain - Final 05/31/23 11:55 Tissue - Suprapatellar Pouch Wound Culture - Final Meth. resistant Staph. aureus 05/31/23 11:55 Tissue - Suprapatellar Pouch Anaerobic Culture - Final No growth in 5 days. 05/19/23 07:17 Swab (Method) Nasal Screen MRSA/MSSA - Final D/C Instructions Please Follow Up With: [facility] When: as previously scheduled. 2 weeks post operatively. Meaningful Use Info Meaningful Use Diagnoses (Choose all that apply): None applicable Discharge Plan Admission Admit Date/Time: 05/31/23 09:47 Attending Provider: Laura Cook Primary Care Provider: Ct Dyson Consulting Providers: Ct Campuzano; Seng Salcedo; Juan Blankenship Discharge Orders/Prescriptions Prescriptions: New meropenem 500 mg Recon Soln 500 mg IV Q12 40 Days Qty: 80 0RF Rx Instructions: stop date 07/16/23. Dx: prosthetic joint infection weekly bmp, cbc, LFT, CK, and ESR. fax to [phone] routine picc care per protocol daptomycin 500 mg Recon Soln 750 mg IV Q48 40 Days Qty: 20 0RF Rx Instructions: stop date 07/16/23. Dx: prosthetic joint infection weekly bmp, cbc, LFT, CK, and ESR. fax to [phone] routine picc care per protocol acetaminophen 500 mg Tablet 1,000 mg PO Q8 Qty: 180 0RF aspirin 81 mg Tablet,Chewable 81 mg PO BID 28 Days Qty: 56 0RF oxycodone 5 mg Tablet 5 - 10 mg PO .4-6 hours prn PRN (Reason: Pain Score 4-10) 7 Days Qty: 60 0RF Continued valsartan 80 MG tablet 80 mg PO DAILY Patient Comments: blood pressure omeprazole 20 MG capsule 20 mg PO DAILY Patient Comments: acid reflux escitalopram oxalate [Lexapro] 5 MG tablet 10 mg PO DAILY Patient Comments: depression Centrum Silver 1 EACH tablet 1 ea PO DAILY Patient Comments: supplement insulin degludec [Tresiba FlexTouch U-100] 100 UNIT/ML insulin pen 80 unit SQ BID insulin aspart U-100 [Novolog FlexPen U-100 Insulin] 100 UNITS/ML insulin pen 30 units subcut BID Patient Comments: BLOOD SUGAR montelukast 10 MG tablet 10 mg PO DAILY@1700 Qty: 42 1RF pravastatin 40 MG tablet 40 mg PO QHS cholecalciferol (vitamin D3) [Vitamin D3] 25 mcg (1,000 unit) Tablet 25 mcg PO DAILY Held aspirin 81 mg Tablet,Delayed Release (Dr/Ec) 81 mg PO DAILY Hold Instructions: Resume on 07/04/23. Discontinued oxycodone-acetaminophen 5-325 mg Tablet 1 tab PO Q8H PRN (Reason: Pain) Referrals / Follow Up: Ct Dyson DO [Primary Care Provider] - Disposition Disposition (needs filled in before D/C Order can be placed): Home Health Service 06/06/23 1332 <Electronically signed by Brinda MCNEIL> Cosigner Signature (if applicable): CC: Dr. Ct Dyson DO; TARUN Dukes~ Signed [facility] Work Phone: 1(516) 330-147507-11-2023 Progress note Author Brinda Foreman [facility] June 06, 2023 1:24pm Note Date/Time June 06, 2023 1:24 pm [facility] Medical Records Department [address] [place] [address] Progress Note - Orthopedic 06/06/23 1314 MR#: [id number] Acct: [id number] Name: VEL NICHOLS Cassidy Rep #:[id number] : 1960 62 From: Brinda MCNEIL PCP: Dr. Ct Dyson DO Status:ADM IN Location: [place] [id number] Subjective Subjective Patient is s/p revision right sided total knee arthroplasty with Dr. Cook. Patient resting comfortably in bed. Rates pain 6/ 10 at rest. With movement 8/10. States taking Tylenol and oxycodone as needed and ice help to relieve pain. Patient has been up with therapy. Walking with the assit of a walker. Afebrile, no chest pain, shortness of breath, negative calf pain/ erythema, and no other signs of DVT. PICC line placed yesterday. JIMMY stable today. Objective Data Objective Data Vital Signs: Vital Signs Temp Pulse Resp BP Pulse Ox O2 Del Method O2 Flow Rate 98.3 F 70 18 170/61 H 97 Room Air 3 06/06/23 07:40 06/06/23 11:08 06/06/23 07:40 06/06/23 07:40 06/06/23 09:12 06/06/23 10:00 05/31/23 15:49 Oxygen Flow Rate (L/min) 3 Oxygen Delivery Method Room Air Weight: 111 kg Body Mass Index (BMI) 38.3 Intake & Output: Intake and Output for Last 24 Hours 06/04/23 06/05/23 06/06/23 23:59 23:59 23:59 Intake Total 1330 / 1330 1685 / 1685 360 / 360 Output Total 1100 / 1900 1250 / 1250 Balance 230 / -570 435 / 435 360 / 360 Lab / Micro Data 06/06/23 06:08 06/06/23 06:08 Labs: Laboratory Results - last 24 hr 06/05/23 16:21: POC Glucose 88 06/05/23 18:08: U Random Total Protein 484.5 H, Urine Creatinine 78.30, Protein/Creatinin Ratio 6188 H 06/05/23 21:22: POC Glucose 77 06/05/23 22:04: POC Glucose 78 06/06/23 04:27: POC Glucose 60 L 06/06/23 04:54: POC Glucose 85 06/06/23 06:08: WBC 6.5, RBC 3.22 L, Hgb 9.2 L, Hct 28.2 L, MCV 87.6, MCH 28.6, MCHC 32.6, RDW Std Deviation 42.8, RDW Coeff of Alexa 13.5, Plt Count 222, MPV 9.4, Immature Gran % (Auto) 0.300, Neut % (Auto) 69.9, Lymph % (Auto) 15.5 L, Sully % (Auto) 8.9, Eos % (Auto) 4.9, Baso % (Auto) 0.5, Absolute Neuts (auto) 4.6, Absolute Lymphs (auto) 1.01, Nucleated RBC % 0, Sodium 141, Potassium 4.6, Chloride 111 H, Carbon Dioxide 27.0, Anion Gap 3 L, BUN 83 H, Creatinine 4.18 H,Estim Creat Clear Calc 16.91, Est GFR (MDRD) Af Amer 19 L, Est GFR (MDRD) Non-Af15 L, BUN/Creatinine Ratio 19.9, Glucose 141 H, Calcium 8.2 L, Total Creatine Kinase 115 06/06/23 06:44: POC Glucose 162 H Micro: Microbiology 05/31/23 12:17 Tissue - Knee Gram Stain - Final 05/31/23 12:17 Tissue - Knee Wound Culture - Final Pseudomonas aeruginosa Meth. resistant Staph. aureus 05/31/23 12:17 Tissue - Knee Anaerobic Culture - Final No growth in 5 days. 05/31/23 12:15 Tissue - Knee Gram Stain - Final 05/31/23 12:15 Tissue - Knee Wound Culture - Final Meth. resistant Staph. aureus 05/31/23 12:15 Tissue - Knee Anaerobic Culture - Final No growth in 5 days. 05/31/23 11:55 Tissue - Suprapatellar Pouch Gram Stain - Final 05/31/23 11:55 Tissue - Suprapatellar Pouch Wound Culture - Final Meth. resistant Staph. aureus 05/31/23 11:55 Tissue - Suprapatellar Pouch Anaerobic Culture - Final No growth in 5 days. 05/19/23 07:17 Swab (Method) Nasal Screen MRSA/MSSA - Final Physical Exam Narrative Patient resting comfortably in bed No signs of acute distress Satting well on room air Limb is warm to touch, Sensation intact throughout entire lower extremity, including saphenous, sural, superficial and deep peroneal, and tibial distribution. DP/PT pulses bounding. Dorsiflexion plantarflexion strength 5/5 Dressing wound VAC in place Calf nontender to palpation, no erythema, no edema. Negative Homans Assessment & Plan Assessment/Plan (1) Infection of prosthetic right knee joint: PLAN: 1. S/P revision right total knee replacement patella revision and polyethylene exchange with scarred excision and quadricepplasty POD #6 2. Continue Pain Medications: Tylenol and oxycodone 3. DVT Prophylaxis: Take 81 mg aspirin twice daily for 4 weeks postoperatively for DVT prophylaxis. Patient denies past history of DVT or pulmonary embolism. 4. PT/OT: Weightbearing as tolerated with walker. We are limiting flexion to get skin rest. 5. H & H: 9.2/28.4, asymptomatic. Postoperative anemia secondary to acute blood loss from surgery without any intra operative complications. begin ferroussulfate and Fe supplements today and continue upon discharge. follow up with PCP. 6. Continue postop medical management per medicine: Patient does have stable chronic kidney disease. Patient's chronic kidney disease did worsen initially. Starting to improve. Appreciate input from medicine service and renal consultation. At this time we will continue to avoid dehydration. NSAIDs have been avoided. Creatinine has been slowly trending down. currently 4.18. JIMMY stable today. 7. Encouraged Incentive Spirometry 8. Postoperative drainage: Wound care nurse is following. Working on obtainingapproval from [place] of [employer]. for VAC on discharge. We will continue with the wound VAC with continuous setting at 75 mmHg with twice weekly dressingchanges on Monday and . At this time patient will likely need dressingchange , patient will require home health for dressing changes and physical therapy. 9. P JI: Patient has Pseudomonas aeruginosa and MRSA positive cultures. Staff is consistent with original infectious etiology. May likely be the cause of hiscontinued residual stiffness and pain. Considering retained implants and patient has had numerous surgeries and desires to avoid further surgical intervention he would likely be a candidate for chronic suppressive antibiotics. We will proceed with a course of IV antibiotics. Currently on IV meropenem anddaptomycin. We will need [employer]. approval prior to discharge. PICC line placed. 10. Disposition: PICC line placed, and infectious disease final recommendationsare daptomycin and meropenem IV x 6 weeks. with an ID follow up in 2 weeks. Patient will require home health for changes. Case management currently involved for appropriate discharge planning. at this point tracy is stable andready for discharge home pending [employer] approval of wound VAC, and home health for ABX assistance. Continue to focus and work on physical therapy whilein the hospital. We did reach out to primary care physician and they are wishing for the surgeon to controlled medications initially postoperatively for the first 6 weeks. This was discussed with the patient. He voiced understanding and agreement. 06/06/23 1324 <Electronically signed by Brinda MCNEIL> Cosigner Signature (if applicable): CC: ~ Signed [facility] Work Phone: [phone]) 407-212407-11-[address] [facility] June 06, 2023 10:04am Note Date/Time June 06, 2023 10:0 4am [facility] Medical Records Department [address] [place] [address] Progress Note - Infect Disease 06/06/23 1003 MR#: [id number] Acct: [id number] Name: VEL NICHOLS Rep #:[id number] : 1960 62 From: Ct landin MD PCP: Dr. Ct Dyson, DO Status:ADM IN Location: AZ3 [id number] Physical Exam Narrative Feeling better, minimal nausea. No fever. Const alert and no apparent distress General Appearance: cooperative Resp normal air movement and clear to auscultation bilaterally Cardio regular rate and regular rhythm GI soft to palpation, non-tender and non-distended Skin Skin Narrative: R knee wrapped ID ID: Route of nutrition/ use of supplements: [] Nutritional Intake: [] IV Site: [] Mena Catheter: [] Assessment & Plan Assessment/Plan (1) Infection of prosthetic right knee joint: PLAN: Taken to OR 05/31/[address] Coko for R knee revision with patella revision and poly exchange. Surg cx with MRSA and PsA. On dapto/vance for 6 weeks total course, stop date 07/16/23 with weekly bmp, cbc, LFT, CK, and esr. Picc in place. ID followup in 2 weeks. JIMMY stable today. Will follow 06/06/23 1004 <Electronically signed by Ct Campuzano MD> Cosigner Signature (if applicable): CC: ~ Signed [facility] Work Phone: [phone]) 310-607207-10-[address] [facility] June 05, 2023 2:58pm Note Date/Time June 05, 2023 2:58 pm [facility] Medical Records Department [address] [place] [address] Progress Note - Infect Disease 06/05/23 1455 MR#: [id number] Acct: [id number] Name: VEL NICHOLS Rep #:[id number] : 1960 62 From: Ct landin MD PCP: Dr. Ct Dyson, DO Status:ADM IN Location: MS3 [id number] Physical Exam Narrative Feeling ok, knee pain improving, no fever. Some n/v earlier, doing better now Const alert and no apparent distress General Appearance: cooperative Resp normal air movement and clear to auscultation bilaterally Cardio regular rate and regular rhythm GI soft to palpation, non-tender and non-distended Skin no rashes or lesions noted Skin Narrative: R knee bandaged ID ID: Route of nutrition/ use of supplements: [] Nutritional Intake: [] IV Site: [] Mena Catheter: [] Assessment & Plan Assessment/Plan (1) Infection of prosthetic right knee joint: PLAN: Taken to OR 05/31/[address] Cook for R knee revision with patella revision and poly exchange. Surg cx with MRSA and PsA. Now on linezolid and meropenem. Will change to dapto/vance for 6 weeks total course, stop date 07/16/23 with weekly bmp, cbc, LFT, CK, and esr. Picc in place. ID followup in 2 weeks. Will follow, thank you, d/w block and case maker and wrote rx 06/05/23 0027 <Electronically signed by Ct Campuzano MD> Cosigner Signature (if applicable): CC: ~ Signed [facility] Work Phone: [phone]) [phone] Progress note Author Seng Salcedo [facility] June 05, 2023 1:04pm Note Date/Time June 05, 2023 1:04 pm [facility] Medical Records Department [address] [place] [address] Progress Note - Hospitalist 06/05/23 1258 MR#: [id number] Acct: [id number] Name: VEL NICHOLS Cassidy Rep #:[id number] : 1960 62 From: Seng Bermudez PCP: Dr. Ct Dyson, DO Status:ADM IN Location: MS3 AF478-6 Reason for Visit Reason for Visit: Diagnoses Type 2 diabetes mellitus without complications (05/31/23) Essential (primary) hypertension (05/31/23) Atherosclerotic heart disease of [place] coronary artery without angina pectoris (05/31/23) Chronic obstructive pulmonary disease, unspecified (05/31/23) Gastro-esophageal reflux disease without esophagitis (05/31/23) Staphylococcal arthritis, right knee (05/31/23) Pyogenic arthritis, unspecified (05/31/23) Acute kidney failure, unspecified (05/31/23) Encounter for other preprocedural examination (05/31/23) Presence of right artificial knee joint (05/31/23) Subjective Subjective 1 lumbar right knee periprosthetic joint infection Objective Data Objective Data Vital Signs: Vital Signs Temp Pulse Resp BP Pulse Ox O2 Del Method O2 Flow Rate 98.4 F 81 16 171/59 H 99 Room Air 3 06/05/23 11:16 06/05/23 11:16 06/05/23 11:16 06/05/23 11:16 06/05/23 11:16 06/05/23 11:16 05/31/23 15:49 Oxygen Flow Rate (L/min) 3 Oxygen Delivery Method Room Air Weight: 244 lb 11.41 oz Body Mass Index (BMI) 38.3 Intake & Output: Intake and Output for Last 24 Hours 06/03/23 06/04/23 06/05/23 23:59 23:59 23:59 Intake Total 1540 / 1540 1330 / 1330 920 / 920 Output Total 900 / 900 1100 / 1900 800 / 800 Balance 640 / 640 230 / -570 120 / 120 Lab / Micro Data 06/05/23 04:15 06/05/23 04:15 Labs: Laboratory Results - last 24 hr 06/04/23 16:12: POC Glucose 144 H 06/04/23 22:15: POC Glucose 138 H 06/05/23 04:15: WBC 8.6, RBC 3.75 L, Hgb 10.2 L, Hct 32.4 L, MCV 86.4, MCH 27.2,MCHC 31.5 L, RDW Std Deviation 41.9, RDW Coeff of Alexa 13.3, Plt Count 235, MPV 9.4, Immature Gran % (Auto) 0.700, Neut % (Auto) 83.6 H, Lymph % (Auto) 7.4 L, Sully % (Auto) 5.9, Eos % (Auto) 2.3, Baso % (Auto) 0.1, Absolute Neuts (auto) 7.2, Absolute Lymphs (auto) 0.64 L, Nucleated RBC % 0, Sodium 137, Potassium 5.2H, Chloride 109 H, Carbon Dioxide 25.0, Anion Gap 3 L, BUN 86 H, Creatinine 4.08H, Estim Creat Clear Calc 17.33, Est GFR (MDRD) Af Amer 19 L, Est GFR (MDRD) Non-Af 16 L, BUN/Creatinine Ratio 21.1 H, Glucose 127 H, Calcium 8.3 L 06/05/23 06:36: POC Glucose 99 06/05/23 10:55: POC Glucose 134 H Micro: Microbiology 05/31/23 12:17 Tissue - Knee Gram Stain - Final 05/31/23 12:17 Tissue - Knee Wound Culture - Final Pseudomonas aeruginosa Meth. resistant Staph. aureus 05/31/23 12:17 Tissue - Knee Anaerobic Culture - Final No growth in 5 days. 05/31/23 12:15 Tissue - Knee Gram Stain - Final 05/31/23 12:15 Tissue - Knee Wound Culture - Final Meth. resistant Staph. aureus 05/31/23 12:15 Tissue - Knee Anaerobic Culture - Final No growth in 5 days. 05/31/23 11:55 Tissue - Suprapatellar Pouch Gram Stain - Final 05/31/23 11:55 Tissue - Suprapatellar Pouch Wound Culture - Final Meth. resistant Staph. aureus 05/31/23 11:55 Tissue - Suprapatellar Pouch Anaerobic Culture - Final No growth in 5 days. 05/19/23 07:17 Swab (Method) Nasal Screen MRSA/MSSA - Final Physical Exam Narrative Seen and examined. Patient complaining of mild right knee pain. Had a large bowel movement in the morning today. Had multiple 5 surgeries in the past. No fever General: Alert, Oriented x3, Cooperative HEENT: Atraumatic, PERRLA, EOMI, Normocephalic Oral: Oral mucosa moist. No Gingival or Mucosal Lesions/ Ulcerations Neck: Supple, No JVD, Negative Carotid Bruits Lungs: Air entry diminished in bilateral lung bases. No crepitation/rhonchi Cardiovascular: Regular rate, Regular Rhythm, Normal S1, Normal S2, No murmurs Abdomen: Bowel Sounds Present, Soft, Non Tender, Non-Distended : No renal angle tenderness. No suprapubic tenderness. Extremities: No edema, Capillary Refill Less than 3 Seconds Skin: No rashes, No breakdown Musculoskeletal: Right knee has surgical dressing, Wilder wrap bandage and ice bag. No Tenderness to Palpation of other joints or Extremities Neurological: Cranial nerves II-XII grossly intact, DTR 2+/4 and Symmetrical, Neuro grossly intact Psych/Mental Status: Normal Affect, Appropriate. Assessment & Plan Assessment/Plan (1) Status post revision of total replacement of right knee: (2) Septic arthritis of knee, right: QUALIFIERS: Septic arthritis organism: staphylococcal Qualified Code(s): M00.061 - Staphylococcal arthritis, right knee PLAN: Plan 1. Septic arthritis/periprosthetic infection of right knee, due to MRSA and Pseudomonas status post revision of total replacement of right knee: Patient hadinitial right total knee arthroplasty in 2017 and shortly thereafter had right periprosthetic knee infection. He had multiple total of 5 revisions. Operativecultures growing Pseudomonas rare growth and rare gram-positive organism. No fever or chills. Patient initially on cefazolin and was started on doxycycline. Antibiotic changed to IV meropenem adjusted to the kidney function. 06/05: Patient was started on linezolid for MRSA after discussion with ID yesterday. Vancomycin not good option because of JIMMY. 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 Cook -No complications -JYOTI titus -Scheduled Tylenol, pain control -Aspirin 81 mg twice daily 06/03: Avoid NSAIDs for pain control Aspirin twice daily for 4 weeks postop. Weightbearing as tolerated. Wound VAC on discharge with twice weekly dressing changes and wound care #Intraoperative knee cultures with Pseudomonas and gram-positive cocci -Patient was on Doxy but is growing Pseudomonas resistant to Zosyn, ID on board and switched him to meropenem -We will continue to follow cultures as there is also gram-positive cocci. Linezolid for MRSA coverage. Vancomycin not a good choice for JIMMY. #JIMMY on likely CKD stage IIIb -Last creatinine 2.43 on 05/19/2023 however no previous values since 2019 -Creatinine today 3.47, BUN 56 -DC all NSAIDs/avoid all NSAIDs -06/03: Kidney function continues to worsen, monitor I's and O's and daily weights, kidney ultrasound shows bladder wall thickening probably cystitis or chronic bladder outlet obstruction. Radial Drill Press Set Up Operator is consulting. Hold for lethargy/sedation or respiratory rate less than 10/min nephrotoxic medications. UA shows protein high otherwise normal specific gravity, nitrite and LE negative. WBC 0-5 cells. Hypertension: Blood pressure is elevated. Patient not candidate for WILDER/ARB or diuretic. Started on amlodipine and hydralazine. #Type 2 diabetes mellitus -Glucose checks and sliding scale insulin -Patient had several low blood glucoses, will decrease 80 units of glargine twice daily to 60 units twice daily and decrease the 30 twice daily of short acting to 20 twice daily, low glucoses despite home regimen may be due to JIMMY, continue to monitor and adjust -06/03: Insulin dose adjusted. Glucose 113. Insulin and Humalog insulin further decreased with holding parameters 06/04: Creatinine 4.22. Estimated creatinine clearance 16 mL/min. #Coronary artery disease -Continue aspirin and statin #GERD -Continue Protonix #COPD -Does not use any inhalers at home at present, will add albuterol as needed #DVT ppx: Aspirin twice daily Microbiology Past 72 Hours 05/31/23 12:17 Tissue - Knee Gram Stain - Final 05/31/23 12:17 Tissue - Knee Wound Culture - Final Pseudomonas aeruginosa Meth. resistant Staph. aureus 05/31/23 12:17 Tissue - Knee Anaerobic Culture - Final No growth in 5 days. 05/31/23 12:15 Tissue - Knee Gram Stain - Final 05/31/23 12:15 Tissue - Knee Wound Culture - Final Meth. resistant Staph. aureus 05/31/23 12:15 Tissue - Knee Anaerobic Culture - Final No growth in 5 days. 05/31/23 11:55 Tissue - Suprapatellar Pouch Gram Stain - Final 05/31/23 11:55 Tissue - Suprapatellar Pouch Wound Culture - Final Meth. resistant Staph. aureus 05/31/23 11:55 Tissue - Suprapatellar Pouch Anaerobic Culture - Final No growth in 5 days. Laboratory Results 06/04/23 16:12: POC Glucose 144 H 06/04/23 22:15: POC Glucose 138 H 06/05/23 04:15: WBC 8.6, RBC 3.75 L, Hgb 10.2 L, Hct 32.4 L, MCV 86.4, MCH 27.2,MCHC 31.5 L, RDW Std Deviation 41.9, RDW Coeff of Alexa 13.3, Plt Count 235, MPV 9.4, Immature Gran % (Auto) 0.700, Neut % (Auto) 83.6 H, Lymph % (Auto) 7.4 L, Sully % (Auto) 5.9, Eos % (Auto) 2.3, Baso % (Auto) 0.1, Absolute Neuts (auto) 7.2, Absolute Lymphs (auto) 0.64 L, Nucleated RBC % 0, Sodium 137, Potassium 5.2H, Chloride 109 H, Carbon Dioxide 25.0, Anion Gap 3 L, BUN 86 H, Creatinine 4.08H, Estim Creat Clear Calc 17.33, Est GFR (MDRD) Af Amer 19 L, Est GFR (MDRD) Non-Af 16 L, BUN/Creatinine Ratio 21.1 H, Glucose 127 H, Calcium 8.3 L 06/05/23 06:36: POC Glucose 99 06/05/23 10:55: POC Glucose 134 H Charges/Coding Visit Charges Inpatient E&M: 08587 Subs Hosp L2 06/05/23 1304 <Electronically signed by Seng Salcedo MD> Cosigner Signature (if applicable): CC: ~ Signed [facility] Work Phone: [phone]) 596-319707-10-2023 Progress [facility] June 05, 2023 6:49am Note Date/Time June 05, 2023 6:49 am [facility] Medical Records Department [address] [place] [address] Progress Note - Orthopedic 06/05/23 0646 MR#: [id number] Acct: [id number] Name: VEL NICHOLS Rep #:[id number] : 1960 62 From: Nick MCNEIL PA-C PCP: Dr. Ct Dyson, DO Status:ADM IN Location: AZ3 [id number] Subjective Subjective The patient was sitting in bed upon examination. Patient denies any chest pain,shortness of breath, dizziness, lightheadedness, nausea or vomiting, or calf pain. Pain is controlled on medications. No adverse overnight events. Sandra is doing well this morning. He tolerated therapy yesterday well. We are waiting on final recommendations from infectious disease for discharge planning. Today patient will have change of the wound VAC dressing. We have also continued to follow kidney function in which consult was obtained. It doesappear it is slowly trending down. Patient has no complaints this morning. We will also need PICC line established prior to discharge planning. Objective Data Objective Data Vital Signs: Vital Signs Temp Pulse Resp BP Pulse Ox O2 Del Method O2 Flow Rate 98.3 F 80 18 171/71 H 99 Room Air 3 06/05/23 05:20 06/05/23 05:20 06/05/23 05:20 06/05/23 05:20 06/05/23 05:20 06/05/23 05:20 05/31/23 15:49 Oxygen Flow Rate (L/min) 3 Oxygen Delivery Method Room Air Weight: 111 kg Body Mass Index (BMI) 38.3 Intake & Output: Intake and Output for Last 24 Hours 06/03/23 06/04/23 06/05/23 23:59 23:59 23:59 Intake Total 1540 / 1540 1330 / 1330 360 / 360 Output Total 900 / 900 1100 / 1900 800 / 800 Balance 640 / 640 230 / -570 -440 / -440 Lab / Micro Data 06/05/23 04:15 06/05/23 04:15 Labs: Laboratory Results - last 24 hr 06/04/23 05:35: WBC 6.5, RBC 3.59 L, Hgb 9.9 L, Hct 31.3 L, MCV 87.2, MCH 27.6, MCHC 31.6 L, RDW Std Deviation 42.3, RDW Coeff of Alexa 13.3, Plt Count 214, MPV 10.2, Immature Gran % (Auto) 0.600, Neut % (Auto) 69.5, Lymph % (Auto) 17.1 L, Sully % (Auto) 8.8, Eos % (Auto) 3.7, Baso % (Auto) 0.3, Absolute Neuts (auto) 4.5, Absolute Lymphs (auto) 1.11, Nucleated RBC % 0, Sodium 137, Potassium 4.6, Chloride 108 H, Carbon Dioxide 23.0, Anion Gap 6, BUN 79 H, Creatinine 4.22 H, Estim Creat Clear Calc 16.75, Est GFR (MDRD) Af Amer 18 L, Est GFR (MDRD) Non-Af15 L, BUN/Creatinine Ratio 18.7, Glucose 104, Calcium 8.5 06/04/23 06:25: POC Glucose 121 H 06/04/23 11:00: POC Glucose 139 H 06/04/23 16:12: POC Glucose 144 H 06/04/23 22:15: POC Glucose 138 H 06/05/23 04:15: WBC 8.6, RBC 3.75 L, Hgb 10.2 L, Hct 32.4 L, MCV 86.4, MCH 27.2,MCHC 31.5 L, RDW Std Deviation 41.9, RDW Coeff of Alexa 13.3, Plt Count 235, MPV 9.4, Immature Gran % (Auto) 0.700, Neut % (Auto) 83.6 H, Lymph % (Auto) 7.4 L, Sully % (Auto) 5.9, Eos % (Auto) 2.3, Baso % (Auto) 0.1, Absolute Neuts (auto) 7.2, Absolute Lymphs (auto) 0.64 L, Nucleated RBC % 0, Sodium 137, Potassium 5.2H, Chloride 109 H, Carbon Dioxide 25.0, Anion Gap 3 L, BUN 86 H, Creatinine 4.08H, Estim Creat Clear Calc 17.33, Est GFR (MDRD) Af Amer 19 L, Est GFR (MDRD) Non-Af 16 L, BUN/Creatinine Ratio 21.1 H, Glucose 127 H, Calcium 8.3 L Micro: Microbiology 05/31/23 12:17 Tissue - Knee Gram Stain - Final 05/31/23 12:17 Tissue - Knee Wound Culture - Final Pseudomonas aeruginosa Meth. resistant Staph. aureus 05/31/23 12:15 Tissue - Knee Gram Stain - Final 05/31/23 12:15 Tissue - Knee Wound Culture - Final Meth. resistant Staph. aureus 05/31/23 11:55 Tissue - Suprapatellar Pouch Gram Stain - Final 05/31/23 11:55 Tissue - Suprapatellar Pouch Wound Culture - Final Meth. resistant Staph. aureus 05/19/23 07:17 Swab (Method) Nasal Screen MRSA/MSSA - Final Physical Exam Narrative Vital signs stable and afebrile. SCDs and JYOTI hose are in place bilaterally Patient is able to plantarflex and dorsiflex actively. Sensation is intact to light touch to saphenous, sural, superficial and deep peroneal, and tibial distribution. Wound VAC in place with drainage stable in canister and tubing. Plan for dressing change today by wound nurse Negative Homans bilaterally, negative signs and symptoms of DVT. Const alert, oriented x3 and no apparent distress Extremity Extremity Narrative: Right lower extremity: Wound VAC is intact. Minimal surrounding erythema. There is some fluid along the tube and a small amount of fluid in the canister no active fluid is draining in the tube. There is also some blood around the sponge. Sensations intact to light touch saphenous, sural, superficial peroneal, deep peroneal, and tibial distributions Motors intact EHL, DF, PF calves are soft and supple Assessment & Plan Assessment/Plan (1) Status post revision of total replacement of right knee: PLAN: 1. S/P revision right total knee replacement patella revision and polyethylene exchange with scarred excision and quadricepplasty POD #5 2. Continue Pain Medications: Tylenol and oxycodone 3. DVT Prophylaxis: Take 81 mg aspirin twice daily for 4 weeks postoperatively for DVT prophylaxis. Patient denies past history of DVT or pulmonary embolism. 4. PT/OT: Weightbearing as tolerated with walker. We are limiting flexion to get skin rest. 5. H & H: 10.2/32.4, asymptomatic. Postoperative anemia secondary to acute blood loss from surgery without any intra operative complications. 6. Continue postop medical management per medicine: Patient does have stable chronic kidney disease. Patient's chronic kidney disease did worsen initially. Starting to improve. Appreciate input from medicine service and renal consultation. At this time we will continue to avoid dehydration. NSAIDs have been avoided. Creatinine has been slowly trending down and currently 4.08 7. Encouraged Incentive Spirometry 8. Postoperative drainage: Wound care nurse is following. Working on obtainingapproval from [place] [employer] [place] [employer] for VAC on discharge. We will continue with the wound VAC with continuous setting at 75 mmHg with twice weekly dressingchanges. At this time patient will likely need dressing change Monday patient will require home health for dressing changes and physical therapy. 9. P JI: Patient has Pseudomonas aeruginosa and MRSA positive cultures. Staff is consistent with original infectious etiology. May likely be the cause of hiscontinued residual stiffness and pain. Considering retained implants and patient has had numerous surgeries and desires to avoid further surgical intervention he would likely be a candidate for chronic suppressive antibiotics. We will proceed with a course of IV antibiotics. Currently on IV meropenem. We will need [employer] Comp. approval prior to discharge. PICC line will be ordered for tomorrow June 05, 2023. 10. Disposition: Pending infectious disease recommendations on antibiotics now that we have more definitive organisms we will await ID input early next week and work on arranging antibiotics so patient can be discharged. Patient will require home health for changes. Case management currently involved for appropriate discharge planning. Hopeful for possible discharge home with home health early next week as long as patient is stable. Continue to focus and workon physical therapy while in the hospital. We did reach out to primary care physician and they are wishing for the surgeon to controlled medications initially postoperatively for the first 6 weeks. This was discussed with the patient. He voiced understanding and agreement. This dictation was created using voice recognition software. Phonetic and/or grammatical errors may exist. 06/05/23 0649 <Electronically signed by Nick MCNEIL PA-C> Cosigner Signature (if applicable): CC: ~ Signed [facility] Work Phone: [phone]) 137-505607-09-2023 Progress note Author Seng Salcedo [facility] June 04, 2023 12:07pm Note Date/Time June 04, 2023 7:34a m [facility] Medical Records Department [address] [place] [address] Progress Note - Hospitalist 06/04/23 0732 MR#: [id number] Acct: [id number] Name: VEL NICHOLS Rep #:[id number] : 1960 62 From: Seng Bermudez PCP: Dr. Ct Dyson, DO Status:ADM IN [id number] Reason for Visit Reason for Visit: Diagnoses Type 2 diabetes mellitus without complications (05/31/23) Essential (primary) hypertension (05/31/23) Atherosclerotic heart disease of [place] coronary artery without angina pectoris (05/31/23) Chronic obstructive pulmonary disease, unspecified (05/31/23) Gastro-esophageal reflux disease without esophagitis (05/31/23) Pyogenic arthritis, unspecified (05/31/23) Acute kidney failure, unspecified (05/31/23) Encounter for other preprocedural examination (05/31/23) Presence of right artificial knee joint (05/31/23) Subjective Subjective Follow-up for right periprosthetic knee infection. No fever. Objective Data Objective Data Vital Signs: Vital Signs Temp Pulse Resp BP Pulse Ox O2 Del Method O2 Flow Rate 98.1 F 71 17 153/69 H 99 Room Air 3 06/04/23 02:37 06/04/23 02:37 06/04/23 02:37 06/04/23 02:37 06/04/23 02:37 06/04/23 02:37 05/31/23 15:49 Oxygen Flow Rate (L/min) 3 Oxygen Delivery Method Room Air Weight: 244 lb 11.41 oz Body Mass Index (BMI) 38.3 Intake & Output: Intake and Output for Last 24 Hours 06/02/23 06/03/23 06/04/23 23:59 23:59 23:59 Intake Total 720 / 720 1540 / 1540 120 / 120 Output Total 400 / 400 900 / 900 700 / 700 Balance 320 / 320 640 / 640 -580 / -580 Lab / Micro Data 06/04/23 05:35 06/04/23 05:35 Labs: Laboratory Results - last 24 hr 06/03/23 10:58: POC Glucose 124 H 06/03/23 15:46: POC Glucose 135 H 06/03/23 20:13: POC Glucose 146 H 06/04/23 05:35: WBC 6.5, RBC 3.59 L, Hgb 9.9 L, Hct 31.3 L, MCV 87.2, MCH 27.6, MCHC 31.6 L, RDW Std Deviation 42.3, RDW Coeff of Alexa 13.3, Plt Count 214, MPV 10.2, Immature Gran % (Auto) 0.600, Neut % (Auto) 69.5, Lymph % (Auto) 17.1 L, Sully % (Auto) 8.8, Eos % (Auto) 3.7, Baso % (Auto) 0.3, Absolute Neuts (auto) 4.5, Absolute Lymphs (auto) 1.11, Nucleated RBC % 0 06/04/23 06:25: POC Glucose 121 H Micro: Microbiology 05/31/23 12:17 Tissue - Knee Gram Stain - Final 05/31/23 12:17 Tissue - Knee Wound Culture - Preliminary Pseudomonas aeruginosa Staphylococcus aureus 05/31/23 12:15 Tissue - Knee Gram Stain - Final 05/31/23 12:15 Tissue - Knee Wound Culture - Final Meth. resistant Staph. aureus 05/31/23 11:55 Tissue - Suprapatellar Pouch Gram Stain - Final 05/31/23 11:55 Tissue - Suprapatellar Pouch Wound Culture - Final Meth. resistant Staph. aureus 05/19/23 07:17 Swab (Method) Nasal Screen MRSA/MSSA - Final Physical Exam Narrative Seen and examined. Patient complaining of right knee pain. Working with PT. Had multiple 5 surgeries in the past. No fever General: Alert, Oriented x3, Cooperative HEENT: Atraumatic, PERRLA, EOMI, Normocephalic Oral: Oral mucosa moist. No Gingival or Mucosal Lesions/ Ulcerations Neck: Supple, No JVD, Negative Carotid Bruits Lungs: Air entry diminished in bilateral lung bases. No crepitation/rhonchi Cardiovascular: Regular rate, Regular Rhythm, Normal S1, Normal S2, No murmurs Abdomen: Bowel Sounds Present, Soft, Non Tender, Non-Distended : No renal angle tenderness. No suprapubic tenderness. Extremities: No edema, Capillary Refill Less than 3 Seconds Skin: No rashes, No breakdown Musculoskeletal: Right knee has surgical dressing, Wilder wrap bandage and ice bag. No Tenderness to Palpation of other joints or Extremities Neurological: Cranial nerves II-XII grossly intact, DTR 2+/4 and Symmetrical, Neuro grossly intact Psych/Mental Status: Normal Affect, Appropriate. Assessment & Plan Assessment/Plan (1) Status post revision of total replacement of right knee: (2) Septic arthritis of knee, right: QUALIFIERS: Septic arthritis organism: staphylococcal Qualified Code(s): M00.061 - Staphylococcal arthritis, right knee PLAN: Plan 1. Septic arthritis/periprosthetic infection of right knee, due to MRSA and Pseudomonas status post revision of total replacement of right knee: Patient hadinitial right total knee arthroplasty in 2017 and shortly thereafter had right periprosthetic knee infection. He had multiple total of 5 revisions. Operativecultures growing Pseudomonas rare growth and rare gram-positive organism. No fever or chills. Patient initially on cefazolin and was started on doxycycline. Antibiotic changed to IV meropenem adjusted to the kidney function. 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 Cook -No complications -JYOTI titus -Scheduled Tylenol, pain control -Aspirin 81 mg twice daily 06/03: Avoid NSAIDs for pain control Aspirin twice daily for 4 weeks postop. Weightbearing as tolerated. Wound VAC on discharge with twice weekly dressing changes and wound care #Intraoperative knee cultures with Pseudomonas and gram-positive cocci -Patient was on Doxy but is growing Pseudomonas resistant to Zosyn, ID on board and switched him to meropenem -We will continue to follow cultures as there is also gram-positive cocci. Doxycycline for MRSA coverage. Vancomycin not a good choice for JIMMY. #JIMMY on likely CKD stage IIIb -Last creatinine 2.43 on 05/19/2023 however no previous values since 2019 -Creatinine today 3.47, BUN 56 -DC all NSAIDs/avoid all NSAIDs -Hold losartan -BP also soft this a.m., will give small bolus -06/03: Kidney function continues to worsen, monitor I's and O's and daily weights, kidney ultrasound shows bladder wall thickening probably cystitis or chronicbladder outlet obstruction. Radial Drill Press Set Up Operator is consulting. Hold for lethargy/sedation or respiratory rate less than 10/min nephrotoxic medications. UA shows protein high otherwise normal specific gravity, nitrite and LE negative. WBC 0-5 cells. #Type 2 diabetes mellitus -Glucose checks and sliding scale insulin -Patient had several low blood glucoses, will decrease 80 units of glargine twice daily to 60 units twice daily and decrease the 30 twice daily of short acting to 20 twice daily, low glucoses despite home regimen may be due to JIMMY, continue to monitor and adjust -06/03: Insulin dose adjusted. Glucose 113. Insulin and Humalog insulin further decreased with holding parameters 06/04: Creatinine 4.22. Estimated creatinine clearance 16 mL/min. #Coronary artery disease -Continue aspirin and statin #GERD -Continue Protonix #COPD -Does not use any inhalers at home at present, will add albuterol as needed #DVT ppx: Aspirin twice daily Microbiology Past 72 Hours 05/31/23 12:17 Tissue - Knee Gram Stain - Final 05/31/23 12:17 Tissue - Knee Wound Culture - Final Pseudomonas aeruginosa Meth. resistant Staph. aureus 05/31/23 12:15 Tissue - Knee Gram Stain - Final 05/31/23 12:15 Tissue - Knee Wound Culture - Final Meth. resistant Staph. aureus 05/31/23 11:55 Tissue - Suprapatellar Pouch Gram Stain - Final 05/31/23 11:55 Tissue - Suprapatellar Pouch Wound Culture - Final Meth. resistant Staph. aureus Laboratory Results 06/03/23 15:46: POC Glucose 135 H 06/03/23 20:13: POC Glucose 146 H 06/04/23 05:35: WBC 6.5, RBC 3.59 L, Hgb 9.9 L, Hct 31.3 L, MCV 87.2, MCH 27.6, MCHC 31.6 L, RDW Std Deviation 42.3, RDW Coeff of Alexa 13.3, Plt Count 214, MPV 10.2, Immature Gran % (Auto) 0.600, Neut % (Auto) 69.5, Lymph % (Auto) 17.1 L, Sully % (Auto) 8.8, Eos % (Auto) 3.7, Baso % (Auto) 0.3, Absolute Neuts (auto) 4.5, Absolute Lymphs (auto) 1.11, Nucleated RBC % 0, Sodium 137, Potassium 4.6, Chloride 108 H, Carbon Dioxide 23.0, Anion Gap 6, BUN 79 H, Creatinine 4.22 H, Estim Creat Clear Calc 16.75, Est GFR (MDRD) Af Amer 18 L, Est GFR (MDRD) Non-Af15 L, BUN/Creatinine Ratio 18.7, Glucose 104, Calcium 8.5 06/04/23 06:25: POC Glucose 121 H 06/04/23 11:00: POC Glucose 139 H Charges/Coding Visit Charges Inpatient E&M: 95067 Subs Hosp L2 06/04/23 1201 <Electronically signed by Seng Salcedo MD> Cosigner Signature (if applicable): CC: ~ Signed ADDENDUM by Dr. Seng Salcedo MD on 06/04/23 at 1202 Addendum Patient has constipation. Irritable bowel for 5 days. On MiraLAX 17 g p.o. twice daily and senna S2 tablet twice daily. Dulcolax 10 mg oral 1 dose now. Dulcolax suppository at night. 06/04/23 1202<Electronically signed by Seng Salcedo MD> Cosigner Signature (if applicable): cc: ~* Signed ADDENDUM by Dr. Seng Salcedo MD on 06/04/23 at 1207 Addendum Discussed with the ID. Linezolid added to cover MRSA. The antibiotics sensitivities show sensitivity to linezolid. 06/04/23 1207<Electronically signed by Seng Salcedo MD> Cosigner Signature (if applicable): cc: ~* Signed [facility] Work Phone: 1(304) 255-861007-09-2023 Progress note Author [facility] June 04, 2023 10:19am Note Date/Time June 04, 2023 10:19 am [facility] Medical Records Department [address] [place] [address] Progress Note - Orthopedic 06/04/23 1013 MR#: [id number] Acct: [id number] Name: VEL NICHOLS Rep #:[id number] : 1960 62 From: Nick MCNEIL PA-C PCP: Dr. Ct Dyson, DO Status:ADM IN Location: [place] [address]-1 Subjective Subjective The patient was sitting in bedside chair upon examination. Patient denies any chest pain, shortness of breath, dizziness, lightheadedness, nausea or vomiting,or calf pain. Pain is controlled on medications. No adverse overnight events. Patient resting comfortably without any complaints today. Nephrology consult was obtained secondary to worsening renal function. There is slight improvementtoday on renal function. Patient also currently using a wound VAC with drainagein canister. Patient's cultures have grown out Pseudomonas aeruginosa and MRSA. Infectious disease currently on board and patient is on meropenem while following cultures. Objective Data Objective Data Vital Signs: Vital Signs Temp Pulse Resp BP Pulse Ox O2 Del Method O2 Flow Rate 98.1 F 70 16 157/75 H 98 Room Air 3 06/04/23 08:01 06/04/23 08:01 06/04/23 08:01 06/04/23 08:01 06/04/23 08:01 06/04/23 08:01 05/31/23 15:49 Oxygen Flow Rate (L/min) 3 Oxygen Delivery Method Room Air Weight: 111 kg Body Mass Index (BMI) 38.3 Intake & Output: Intake and Output for Last 24 Hours 06/02/23 06/03/23 06/04/23 23:59 23:59 23:59 Intake Total 720 / 720 1540 / 1540 120 / 120 Output Total 400 / 400 900 / 900 700 / 700 Balance 320 / 320 640 / 640 -580 / -580 Lab / Micro Data 06/04/23 05:35 06/04/23 05:35 Labs: Laboratory Results - last 24 hr 06/03/23 10:58: POC Glucose 124 H 06/03/23 15:46: POC Glucose 135 H 06/03/23 20:13: POC Glucose 146 H 06/04/23 05:35: WBC 6.5, RBC 3.59 L, Hgb 9.9 L, Hct 31.3 L, MCV 87.2, MCH 27.6, MCHC 31.6 L, RDW Std Deviation 42.3, RDW Coeff of Alexa 13.3, Plt Count 214, MPV 10.2, Immature Gran % (Auto) 0.600, Neut % (Auto) 69.5, Lymph % (Auto) 17.1 L, Sully % (Auto) 8.8, Eos % (Auto) 3.7, Baso % (Auto) 0.3, Absolute Neuts (auto) 4.5, Absolute Lymphs (auto) 1.11, Nucleated RBC % 0, Sodium 137, Potassium 4.6, Chloride 108 H, Carbon Dioxide 23.0, Anion Gap 6, BUN 79 H, Creatinine 4.22 H, Estim Creat Clear Calc 16.75, Est GFR (MDRD) Af Amer 18 L, Est GFR (MDRD) Non-Af15 L, BUN/Creatinine Ratio 18.7, Glucose 104, Calcium 8.5 06/04/23 06:25: POC Glucose 121 H Micro: Microbiology 05/31/23 12:17 Tissue - Knee Gram Stain - Final 05/31/23 12:17 Tissue - Knee Wound Culture - Final Pseudomonas aeruginosa Meth. resistant Staph. aureus 05/31/23 12:15 Tissue - Knee Gram Stain - Final 05/31/23 12:15 Tissue - Knee Wound Culture - Final Meth. resistant Staph. aureus 05/31/23 11:55 Tissue - Suprapatellar Pouch Gram Stain - Final 05/31/23 11:55 Tissue - Suprapatellar Pouch Wound Culture - Final Meth. resistant Staph. aureus 05/19/23 07:17 Swab (Method) Nasal Screen MRSA/MSSA - Final Physical Exam Narrative Vital signs stable and afebrile. SCDs and JYOTI hose are in place bilaterally Patient is able to plantarflex and dorsiflex actively. Sensation is intact to light touch to saphenous, sural, superficial and deep peroneal, and tibial distribution. Wound VAC currently in place with some mild fluid in the tube with fluid in canister. There is also some blood surrounding the sponge on the dressing Negative Homans bilaterally, negative signs and symptoms of DVT. Const alert, oriented x3 and no apparent distress Extremity Extremity Narrative: Right lower extremity: Wound VAC is intact. Minimal surrounding erythema. There is some fluid along the tube and a small amount of fluid in the canister no active fluid is draining in the tube. There is also some blood around the sponge. Sensations intact to light touch saphenous, sural, superficial peroneal, deep peroneal, and tibial distributions Motors intact EHL, DF, PF calves are soft and supple Assessment & Plan Assessment/Plan (1) Status post revision of total replacement of right knee: PLAN: 1. S/P revision right total knee replacement patella revision and polyethylene exchange with scarred excision and quadricepplasty POD #4 2. Continue Pain Medications: Tylenol and oxycodone 3. DVT Prophylaxis: Take 81 mg aspirin twice daily for 4 weeks postoperatively for DVT prophylaxis. Patient denies past history of DVT or pulmonary embolism. 4. PT/OT: Weightbearing as tolerated with walker. We are limiting flexion to get skin rest. 5. H & H: 9.9/, asymptomatic. Postoperative anemia secondary to acute blood loss from surgery without any intra operative complications. 6. Continue postop medical management per medicine: Patient does have stable chronic kidney disease. Patient's chronic kidney disease did worsen initially. Starting to improve. Appreciate input from medicine service and renal consultation. At this time we will continue to avoid dehydration. NSAIDs have been avoided. 7. Encouraged Incentive Spirometry 8. Postoperative drainage: Wound care nurse is following. Working on obtainingapproval from [employer] for VAC on discharge. We will continue with the wound VAC with continuous setting at 75 mmHg with twice weekly dressingchanges. At this time patient will likely need dressing change Monday patient will require home health for dressing changes and physical therapy. 9. P JI: Patient has Pseudomonas aeruginosa and MRSA positive cultures. Staff is consistent with original infectious etiology. May likely be the cause of hiscontinued residual stiffness and pain. Considering retained implants and patient has had numerous surgeries and desires to avoid further surgical intervention he would likely be a candidate for chronic suppressive antibiotics. We will proceed with a course of IV antibiotics. Currently on IV meropenem. We will need [employer]. approval prior to discharge. PICC line will be ordered for tomorrow June 05, 2023. 10. Disposition: Pending infectious disease recommendations on antibiotics now that we have more definitive organisms we will await ID input early next week and work on arranging antibiotics so patient can be discharged. Patient will require home health for changes. Case management currently involved for appropriate discharge planning. Hopeful for possible discharge home with home health early next week as long as patient is stable. Continue to focus and workon physical therapy while in the hospital. We are also checking with patient's primary care physician as he is on chronic Percocet for pain control. We are making sure that we are able to prescribe postoperative pain medications. This was discussed with the patient. He voiced understanding and agreement. This dictation was created using voice recognition software. Phonetic and/or grammatical errors may exist. [facility] Office: 06/04/23 1019 <Electronically signed by Nick MCNEIL PA-C> Cosigner Signature (if applicable): CC: ~ Signed [facility] Work Phone: [phone]) 881-933807-09-2023 Progress note Author Seng Salcedo [facility] June 04, 2023 7:35am Note Date/Time June 03, 2023 7:41a m [facility] Medical Records Department [address] [place] [address] Progress Note - Hospitalist 06/03/23 0735 MR#: [id number] Acct: [id number] Name: MAGDALENAVEL W Rep #:[id number] : 1960 62 From: Seng Bermudez PCP: Dr. Ct Dyson, DO Status:ADM IN Location: [facility] [id number] Reason for Visit Reason for Visit: Diagnoses Type 2 diabetes mellitus without complications (05/31/23) Essential (primary) hypertension (05/31/23) Atherosclerotic heart disease of [place] coronary artery without angina pectoris (05/31/23) Chronic obstructive pulmonary disease, unspecified (05/31/23) Gastro-esophageal reflux disease without esophagitis (05/31/23) Pyogenic arthritis, unspecified (05/31/23) Encounter for other preprocedural examination (05/31/23) Presence of right artificial knee joint (05/31/23) Objective Data Objective Data Vital Signs: Vital Signs Temp Pulse Resp BP Pulse Ox O2 Del Method O2 Flow Rate 99.4 F H 81 18 165/66 H 96 Room Air 3 06/03/23 04:00 06/03/23 04:00 06/03/23 04:00 06/03/23 04:00 06/03/23 04:00 06/03/23 04:00 05/31/23 15:49 Oxygen Flow Rate (L/min) 3 Oxygen Delivery Method Room Air Weight: 244 lb 11.41 oz Body Mass Index (BMI) 38.3 Intake & Output: Intake and Output for Last 24 Hours 06/01/23 06/02/23 06/03/23 23:59 23:59 23:59 Intake Total 2050 / 2050 720 / 720 Output Total 1000 / 1000 400 / 400 200 / 200 Balance 1050 / 1050 320 / 320 -200 / -200 Lab / Micro Data 06/03/23 05:43 06/03/23 05:43 Labs: Laboratory Results - last 24 hr 06/02/23 05:35: Sodium 139, Potassium 5.0, Chloride 107, Carbon Dioxide 26.0, Anion Gap 6, BUN 65 H, Creatinine 4.55 H, Estim Creat Clear Calc 15.54, Est GFR (MDRD) Af Amer 17 L, Est GFR (MDRD) Non-Af 14 L, BUN/Creatinine Ratio 14.3, Glucose 64 L, Calcium 7.8 L 06/02/23 11:37: POC Glucose 72 L 06/02/23 16:02: POC Glucose 64 L 06/02/23 18:16: Urine Color Yellow, Urine Clarity Sl. Cloudy, Urine pH 6.0, Ur Specific [place] 1.015, Urine Protein 500 H, Urine Glucose (UA) Normal, Urine Ketones Negative, Urine Occult Blood 25 H, Urine Nitrite Negative, Urine Bilirubin Negative, Urine Urobilinogen Normal, Ur Leukocyte Esterase Negative, Urine RBC 0-5 SEEN, Urine WBC 0-5 SEEN, Ur Squamous Epith Cells 0-5 SEEN, Amorphous Sediment 1+ URATE, Urine Bacteria RARE, Fine Granular Casts 0-5 SEEN, Urine Mucus 0 SEEN, Urine Osmolality 216, Ur Random Sodium 10, Urine Creatinine 64.90, Urine Potassium 23.0, Urine Chloride < 10, Urine Urea Nitrogen 307 06/02/23 21:20: POC Glucose 134 H 06/03/23 05:43: WBC 7.4, RBC 3.74 L, Hgb 10.0 L, Hct 32.5 L, MCV 86.9, MCH 26.7 L, MCHC 30.8 L, RDW Std Deviation 42.1, RDW Coeff of Alexa 13.3, Plt Count 194, MPV 10.1, Immature Gran % (Auto) 0.400, Neut % (Auto) 68.5, Lymph % (Auto) 18.7 L, Sully % (Auto) 8.6, Eos % (Auto) 3.5, Baso % (Auto) 0.3, Absolute Neuts (auto)5.1, Absolute Lymphs (auto) 1.39, Nucleated RBC % 0, Sodium 136, Potassium 4.7, Chloride 105, Carbon Dioxide 24.0, Anion Gap 7, BUN 73 H, Creatinine 4.44 H, Estim Creat Clear Calc 15.92, Est GFR (MDRD) Af Amer 17 L, Est GFR (MDRD) Non-Af14 L, BUN/Creatinine Ratio 16.4, Glucose 104, Calcium 8.1 L 06/03/23 05:47: POC Glucose 113 H Micro: Microbiology 05/31/23 12:17 Tissue - Knee Gram Stain - Final 05/31/23 12:17 Tissue - Knee Wound Culture - Preliminary Pseudomonas aeruginosa Gram Positive Cocci 05/31/23 12:15 Tissue - Knee Gram Stain - Final 05/31/23 12:15 Tissue - Knee Wound Culture - Preliminary Staphylococcus aureus 05/31/23 11:55 Tissue - Suprapatellar Pouch Gram Stain - Final 05/31/23 11:55 Tissue - Suprapatellar Pouch Wound Culture - Preliminary Staphylococcus aureus 05/19/23 07:17 Swab (Method) Nasal Screen MRSA/MSSA - Final Radiography Diagnostic Testing: Radiology Impression Renal Ultrasound 06/02/23 14:57 IMPRESSION: Diffuse urinary bladder wall thickening raises suspicion for cystitis versus chronic bladder outlet obstruction. Electronically Signed: Josh Joy MD at 19:58 EDT , Assessment & Plan Assessment/Plan (1) Status post revision of total replacement of right knee: PLAN: Plan # septic arthritis of right knee, status post revision of total replacement of right knee: Patient had initial right total knee arthroplasty in 2017 and shortly thereafter had right periprosthetic knee infection. He had multiple total of 5 revisions. Operative cultures growing Pseudomonas rare growth and rare gram- positive organism. No fever or chills. Patient initially on cefazolin and was started on doxycycline. Antibiotic changed to IV meropenem adjusted to the kidney function. 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 Cook -No complications -JYOTI titus -Scheduled Tylenol, pain control -Patient on cefazolin and started on Doxy -Aspirin 81 mg twice daily 06/03: Avoid NSAIDs for pain controlAspirin twice daily for 4 weeks postop. Weightbearing as tolerated. Wound VAC on discharge with twice weekly dressing changes and wound care #Intraoperative knee cultures with Pseudomonas and gram-positive cocci -Patient was on Doxy but is growing Pseudomonas resistant to Zosyn, ID on board and switched him to meropenem -We will continue to follow cultures as there is also gram-positive cocci #JIMMY on likely CKD stage IIIb -Last creatinine 2.43 on 05/19/2023 however no previous values since 2019 -Creatinine today 3.47, BUN 56 -DC all NSAIDs/avoid all NSAIDs -Hold losartan -BP also soft this a.m., will give small bolus -06/03: Kidney function continues to worsen, monitor I's and O's and daily weights, kidney ultrasound shows bladder wall thickening probably cystitis or chronic bladder outlet obstruction. Radial Drill Press Set Up Operator is consulting. Hold for lethargy/sedation or respiratory rate less than 10/min nephrotoxic medications. UA shows protein high otherwise normal specific gravity, nitrite and LE negative. WBC 0-5 cells. #Type 2 diabetes mellitus -Glucose checks and sliding scale insulin -Patient had several low blood glucoses, will decrease 80 units of glargine twice daily to 60 units twice daily and decrease the 30 twice daily of short acting to 20 twice daily, low glucoses despite home regimen may be due to JIMMY, continue to monitor and adjust -06/03: Insulin dose adjusted. Glucose 113. Insulin and Humalog insulin further decreased with holding parameters #Coronary artery disease -Continue aspirin and statin #GERD -Continue Protonix #COPD -Does not use any inhalers at home at present, will add albuterol as needed #DVT ppx: Aspirin twice daily Microbiology Past 72 Hours 05/31/23 12:17 Tissue - Knee Gram Stain - Final 05/31/23 12:17 Tissue - Knee Wound Culture - Preliminary Pseudomonas aeruginosa Staphylococcus aureus 05/31/23 12:15 Tissue - Knee Gram Stain - Final 05/31/23 12:15 Tissue - Knee Wound Culture - Final Meth. resistant Staph. aureus 05/31/23 11:55 Tissue - Suprapatellar Pouch Gram Stain - Final 05/31/23 11:55 Tissue - Suprapatellar Pouch Wound Culture - Final Meth. resistant Staph. aureus Laboratory Results 06/02/23 11:37: POC Glucose 72 L 06/02/23 16:02: POC Glucose 64 L 06/02/23 18:16: Urine Color Yellow, Urine Clarity Sl. Cloudy, Urine pH 6.0, Ur Specific [place] 1.015, Urine Protein 500 H, Urine Glucose (UA) Normal, Urine Ketones Negative, Urine Occult Blood 25 H, Urine Nitrite Negative, Urine Bilirubin Negative, Urine Urobilinogen Normal, Ur Leukocyte Esterase Negative, Urine RBC 0-5 SEEN, Urine WBC 0-5 SEEN, Ur Squamous Epith Cells 0-5 SEEN, Amorphous Sediment 1+ URATE, Urine Bacteria RARE, Fine Granular Casts 0-5 SEEN, Urine Mucus 0 SEEN, Urine Osmolality 216, Ur Random Sodium 10, Urine Creatinine 64.90, Urine Potassium 23.0, Urine Chloride < 10, Urine Urea Nitrogen 307 06/02/23 21:20: POC Glucose 134 H 06/03/23 05:43: WBC 7.4, RBC 3.74 L, Hgb 10.0 L, Hct 32.5 L, MCV 86.9, MCH 26.7 L, MCHC 30.8 L, RDW Std Deviation 42.1, RDW Coeff of Alexa 13.3, Plt Count 194, MPV 10.1, Immature Gran % (Auto) 0.400, Neut % (Auto) 68.5, Lymph % (Auto) 18.7 L, Sully % (Auto) 8.6, Eos % (Auto) 3.5, Baso % (Auto) 0.3, Absolute Neuts (auto)5.1, Absolute Lymphs (auto) 1.39, Nucleated RBC % 0, Sodium 136, Potassium 4.7, Chloride 105, Carbon Dioxide 24.0, Anion Gap 7, BUN 73 H, Creatinine 4.44 H, Estim Creat Clear Calc 15.92, Est GFR (MDRD) Af Amer 17 L, Est GFR (MDRD) Non-Af 14L, BUN/Creatinine Ratio 16.4, Glucose 104, Calcium 8.1 L 06/03/23 05:47: POC Glucose 113 H Charges/Coding Visit Charges Inpatient E&M: 24763 Subs Hosp L2 06/03/23 1046 <Electronically signed by Seng Salcedo MD> Cosigner Signature (if applicable): CC: ~ Signed ADDENDUM by Dr. Seng Salcedo MD on 06/04/23 at 0735 Addendum Physical exam findings. I talked to patient's son and near the bedside. Patient actively participating in PT. Did not had bowel movement for 5 days. General: Alert, Oriented x3, Cooperative HEENT: Atraumatic, PERRLA, EOMI, Normocephalic Oral: Oral mucosa moist. No Gingival or Mucosal Lesions/ Ulcerations Neck: Supple, No JVD, Negative Carotid Bruits Lungs: Air entry diminished in bilateral lung bases. No crepitation/rhonchi Cardiovascular: Regular rate, Regular Rhythm, Normal S1, Normal S2, No murmurs Abdomen: Bowel Sounds Present, Soft, Non Tender, Non-Distended : No renal angle tenderness. No suprapubic tenderness. Extremities: No edema, Capillary Refill Less than 3 Seconds Skin: No rashes, No breakdown Musculoskeletal: Right knee has surgical dressing, Wilder wrap bandage and ice bag. ROM restricted at right knee. Neurological: Cranial nerves II-XII grossly intact, DTR 2+/4 and Symmetrical, Neuro grossly intact Psych/Mental Status: Normal Affect, Appropriate. 06/04/23 0735<Electronically signed by Seng Salcedo MD> Cosigner Signature (if applicable): cc: ~* Signed [facility] Work Phone: 1(672) 927-141807-08-2023 Progress note Author Laura Cook [facility] June 03, 2023 5:02pm Note Date/Time June 03, 2023 4:59p m [facility] Medical Records Department [address] [place] [address] Progress Note - Orthopedic 06/03/231655 MR#: [id number] Acct: [id number] Name: VEL NICHOLS Rep #:[id number] : 1960 62 From: Laura Bermudez PCP: Dr. Ct Dyson, DO Status:ADM IN Location: [place] [id number] Subjective Subjective Patient is doing well overall. Did see the flat examiner today due to changes inkidney function. Patient has chronic kidney disease. Seems to be normalizing on labs. Cultures have now grown out Pseudomonas aeruginosa and MRSA. Objective Data Objective Data Vital Signs: Vital Signs Temp Pulse Resp BP Pulse Ox O2 Del Method O2 Flow Rate 98.5 F 73 16 161/73 H 99 Room Air 3 06/03/23 15:50 06/03/23 15:50 06/03/23 15:50 06/03/23 15:50 06/03/23 15:50 06/03/23 15:50 05/31/23 15:49 Oxygen Flow Rate (L/min) 3 Oxygen Delivery Method Room Air Weight: 244 lb 11.41 oz Body Mass Index (BMI) 38.3 Intake & Output: Intake and Output for Last 24 Hours 06/01/23 06/02/23 06/03/23 23:59 23:59 23:59 Intake Total 2050 / 2050 720 / 720 560 / 560 Output Total 1000 / 1000 400 / 400 200 / 200 Balance 1050 / 1050 320 / 320 360 / 360 Lab / Micro Data Attestation: I reviewed the patient's lab results. 06/03/23 05:43 06/03/23 05:43 Labs: Laboratory Results - last 24 hr 06/02/23 18:16: Urine Color Yellow, Urine Clarity Sl. Cloudy, Urine pH 6.0, Ur Specific [place] 1.015, Urine Protein 500 H, Urine Glucose (UA) Normal, Urine Ketones Negative, Urine Occult Blood 25 H, Urine Nitrite Negative, Urine Bilirubin Negative, Urine Urobilinogen Normal, Ur Leukocyte Esterase Negative, Urine RBC 0-5 SEEN, Urine WBC 0-5 SEEN, Ur Squamous Epith Cells 0-5 SEEN, Amorphous Sediment 1+ URATE, Urine Bacteria RARE, Fine Granular Casts 0-5 SEEN, Urine Mucus 0 SEEN, Urine Osmolality 216, Ur Random Sodium 10, Urine Creatinine 64.90, Urine Potassium 23.0, Urine Chloride < 10, Urine Urea Nitrogen 307 06/02/23 21:20: POC Glucose 134 H 06/03/23 05:43: WBC 7.4, RBC 3.74 L, Hgb 10.0 L, Hct 32.5 L, MCV 86.9, MCH 26.7 L, MCHC 30.8 L, RDW Std Deviation 42.1, RDW Coeff of Alexa 13.3, Plt Count 194, MPV 10.1, Immature Gran % (Auto) 0.400, Neut % (Auto) 68.5, Lymph % (Auto) 18.7 L, Sully % (Auto) 8.6, Eos % (Auto) 3.5, Baso % (Auto) 0.3, Absolute Neuts (auto)5.1, Absolute Lymphs (auto) 1.39, Nucleated RBC % 0, Sodium 136, Potassium 4.7, Chloride 105, Carbon Dioxide 24.0, Anion Gap 7, BUN 73 H, Creatinine 4.44 H, Estim Creat Clear Calc 15.92, Est GFR (MDRD) Af Amer 17 L, Est GFR (MDRD) Non-Af 14L, BUN/Creatinine Ratio 16.4, Glucose 104, Calcium 8.1 L 06/03/23 05:47: POC Glucose 113 H 06/03/23 10:58: POC Glucose 124 H 06/03/23 15:46: POC Glucose 135 H Micro: Microbiology 05/31/23 12:17 Tissue - Knee Gram Stain - Final 05/31/23 12:17 Tissue - Knee Wound Culture - Preliminary Pseudomonas aeruginosa Staphylococcus aureus 05/31/23 12:15 Tissue - Knee Gram Stain - Final 05/31/23 12:15 Tissue - Knee Wound Culture - Final Meth. resistant Staph. aureus 05/31/23 11:55 Tissue - Suprapatellar Pouch Gram Stain - Final 05/31/23 11:55 Tissue - Suprapatellar Pouch Wound Culture - Final Meth. resistant Staph. aureus 05/19/23 07:17 Swab (Method) Nasal Screen MRSA/MSSA - Final Radiography Diagnostic Testing: Radiology Impression Renal Ultrasound 06/02/23 14:57 IMPRESSION: Diffuse urinary bladder wall thickening raises suspicion for cystitis versus chronic bladder outlet obstruction. Electronically Signed: Josh Joy MD at 19:58 EDT , Physical Exam Const alert and oriented x3 Extremity Extremity Narrative: Right lower extremity: Wound VAC is intact. Minimal surrounding erythema. There is some fluid along the tube and a small amount of fluid in the canister no active fluid is draining in the tube. There is also some blood around the sponge. Sensations intact to light touch saphenous, sural, superficial peroneal, deep peroneal, and tibial distributions Motors intact EHL, DF, PF calves are soft and supple Assessment & Plan Assessment/Plan (1) Status post revision of total replacement of right knee: PLAN: 1. S/P revision right total knee replacement patella revision and polyethylene exchange with scarred excision and quadricepplasty POD #3 2. Continue Pain Medications: Tylenol and oxycodone 3. DVT Prophylaxis: Take 81 mg aspirin twice daily for 4 weeks postoperatively for DVT prophylaxis. Patient denies past history of DVT or pulmonary embolism. 4. PT/OT: Weightbearing as tolerated with walker. We are limiting flexion to get skin rest. 5. H & H: Labs were stable yesterday. Last hemoglobin 10.0. We will recheck labs tomorrow 6. Continue postop medical management per medicine: Patient does have stable chronic kidney disease. Patient's chronic kidney disease did worsen initially. Starting to improve. Appreciate input from medicine service and renal consultation. At this time we will continue to avoid dehydration. NSAIDs have been avoided. 7. Encouraged Incentive Spirometry 8. Postoperative drainage: Wound care nurse is following. Working on obtainingapproval from [place] of Workmen's Comp. for VAC on discharge. We will continue with the wound VAC with continuous setting at 75 mmHg with twice weekly dressingchanges. At this time patient will likely need dressing change Monday patient will require home health for dressing changes and physical therapy. 9. P JI: Patient has Pseudomonas aeruginosa and MRSA positive cultures. Staff is consistent with original infectious etiology. May likely be the cause of hiscontinued residual stiffness and pain. I discussed at length treatment options. Considering retained implants and patient has had numerous surgeries and desires to avoid further surgical intervention he would likely be a candidate for chronic suppressive antibiotics. We will proceed with a course of IV antibiotics. Currently on IV meropenem. We will need Workmen's Comp. approval prior to discharge. 10. Disposition: Pending infectious disease recommendations on antibiotics now that we have more definitive organisms we will await ID input early next week and work on arranging antibiotics so patient can be discharged. Patient will require home health for changes. Case management currently involved for appropriate discharge planning. Hopeful for possible discharge home with home health early next week as long as patient is stable. Continue to focus and workon physical therapy while in the hospital. We are also checking with patient's primary care physician as he is on chronic Percocet for pain control. We are making sure that we are able to prescribe postoperative pain medications. This was discussed with the patient. He voiced understanding and agreement. This dictation was created using voice recognition software. Phonetic and/or grammatical errors may exist. [facility] Office: 06/03/23 1702 <Electronically signed by Laura Cook MD> Cosigner Signature (if applicable): CC: ~ Signed [facility] Work Phone: [phone]) 871-350407-08-2023 Consult note Author Margie Jackson [facility] June 03, 2023 3:50pm Note Date/Time June 03, 2023 3:50p m [facility] Medical Records Department [address] [place] [address] Consultation - Nephrology 06/03/23 1542 MR#: [id number] Acct: [id number] Name: VEL NICHOLS Rep #:[id number] : 1960 62 From: Margie mock MD PCP: Dr. Ct Dyson, DO Status:ADM IN [id number] Assessment & Plan Assessment/Plan (1) Acute kidney injury: PLAN: Patient has underlying CKD, most likely due to diabetic nephropathy. Mostrecent creatinine prior to admission was 2.43. Admitted with septic arthritis, creatinine was really elevated on admission. It did peak at 4.4 yesterday and started to decline today with improved urine output. He is hemodynamically stable, his urine output has improved, no significant acidosis and electrolytes are fine PLAN: Plan Continue with current antibiotic treatment Avoid dehydration Avoid nephrotoxins We will follow HPI Consult Data Date of Consult: 06/03/23 HPI Narrative Reason for Consultation: Acute on chronic kidney injury HPI Narrative: VEL NICHLOS, is a 62 M who presents with recurrent right knee septic arthritis, has gram-positive cocci and Pseudomonas recovered. He was admitted day before yesterday with progressive knee pain. Creatinine on admission was 3.4, on day of surgery which is yesterday went up to 4.5, and today it is betterdown to 4.4. He has known chronic kidney insufficiency and most recent creatinine a month ago was 2.43. He has longstanding diabetes mellitus and presumable diagnosis is diabetic nephropathy. On the beginning his urine outputwas quite low, but with volume expansion that has improved. Electrolytes are fine, no significant acidosis, no signs of fluid overload. He is hemodynamically stable and denies intake of nonsteroidals or any other nephrotoxins [facility] Medical History Alcohol use Arthritis Back pain Cardiology follow-up encounter COPD (chronic obstructive pulmonary disease) Depression Dietary restriction Gastric reflux High cholesterol History of edema History of hiatal hernia History of pain when walking History of stress test Hypertension Insulin dependent diabetes mellitus Loss of hearing NSTEMI (non-ST elevated myocardial infarction) Smoker Wears dentures Home Medications escitalopram oxalate 5 mg tablet (Lexapro) 10 mg PO DAILY depression 10/15/16 [History Last Taken 10/15/16] vqvkfusa-gka-ptyjh acid 0.4 mg-lycopene 300 mcg-lutein 250 mcg tablet (Centrum Silver) 1 ea PO DAILY supplement 10/15/16 [History Last Taken Unknown] omeprazole 20 mg capsule,delayed release 20 mg PO DAILY gerd 10/15/16 [History Last Taken 05/31/23] valsartan 80 mg tablet 80 mg PO DAILY bp 10/15/16 [History Last Taken 03/21/18 08:20] insulin aspart U-100 100 unit/mL (3 mL) subcutaneous pen (Novolog FlexPen U-100 Insulin aspart) 30 units subcut BID diabetes 01/15/18 [History Last Taken Unknown] insulin degludec 100 unit/mL (3 mL) subcutaneous pen (Tresiba FlexTouch U-100 insulin) 80 unit SQ BID diabetes 01/15/18 [History Last Taken Unknown] montelukast 10 mg tablet 10 mg PO DAILY@1700 #42 tabs 03/22/18 [Rx Last Taken Unknown] pravastatin 40 mg tablet 40 mg PO QHS 08/24/18 [History Last Taken Unknown] aspirin 81 mg tablet,delayed release 81 mg PO DAILY 05/17/23 [History Last Taken 05/24/23] cholecalciferol (vitamin D3) 25 mcg (1,000 unit) tablet (Vitamin D3) 25 mcg PO DAILY 05/17/23 [History Last Taken Unknown] oxycodone-acetaminophen 5 mg-325 mg tablet 1 tab PO Q8H PRN Pain 05/17/23 [History Last Taken Unknown] Allergy/AdvReac Type Severity Reaction Status Date / Time No Known Allergies Allergy Verified 05/17/23 10:10 Surgical History Coronary angioplasty status History of arthroplasty of knee Hx laparoscopic cholecystectomy Hx of arthroscopy Hx of arthroscopy of right knee Hx of foot surgery Hx of hernia repair Hx of knee surgery Hx of knee surgery Hx of knee surgery Hx of left cataract extraction Hx of right cataract extraction Hx of total knee arthroplasty Status post coronary artery stent placement Status post revision of total replacement of right knee Social History Smoking Status: Current every day smoker tobacco type: cigarettes and smokelesstobacco ROS ROS Narrative 14 point comprehensive system review was performed, all positives as well as pertinent negatives are reflected in current H&P Physical Exam Const General Appearance: well developed Orientation / Consciousness: oriented to person, oriented to place and oriented to time Nutritional Appearance: obese HEENT normocephalic and moist oral mucous membranes Head and Scalp: atraumatic Eyes PERRL Neck no lymphadenopathy Resp no use of accessory muscles and clear to auscultation bilaterally Cardio regular rate, no murmurs and no rub GI non-tender and non-distended Auscultation: normoactive bowel sounds Palpation: soft and firm Skin no rashes or lesions noted Neuro Sensorium / Orientation: awake and alert Lab / Micro Data Attestation: I reviewed the patient's lab results. 06/03/23 05:43 06/03/23 05:43 Labs: Laboratory Results - last 24 hr 06/02/23 16:02: POC Glucose 64 L 06/02/23 18:16: Urine Color Yellow, Urine Clarity Sl. Cloudy, Urine pH 6.0, Ur Specific [place] 1.015, Urine Protein 500 H, Urine Glucose (UA) Normal, Urine Ketones Negative, Urine Occult Blood 25 H, Urine Nitrite Negative, Urine Bilirubin Negative, Urine Urobilinogen Normal, Ur Leukocyte Esterase Negative, Urine RBC 0-5 SEEN, Urine WBC 0-5 SEEN, Ur Squamous Epith Cells 0-5 SEEN, Amorphous Sediment 1+ URATE, Urine Bacteria RARE, Fine Granular Casts 0-5 SEEN, Urine Mucus 0 SEEN, Urine Osmolality 216, Ur Random Sodium 10, Urine Creatinine 64.90, Urine Potassium 23.0, Urine Chloride < 10, Urine Urea Nitrogen 307 06/02/23 21:20: POC Glucose 134 H 06/03/23 05:43: WBC 7.4, RBC 3.74 L, Hgb 10.0 L, Hct 32.5 L, MCV 86.9, MCH 26.7 L, MCHC 30.8 L, RDW Std Deviation 42.1, RDW Coeff of Alexa 13.3, Plt Count 194, MPV 10.1, Immature Gran % (Auto) 0.400, Neut % (Auto) 68.5, Lymph % (Auto) 18.7 L, Sully % (Auto) 8.6, Eos % (Auto) 3.5, Baso % (Auto) 0.3, Absolute Neuts (auto)5.1, Absolute Lymphs (auto) 1.39, Nucleated RBC % 0, Sodium 136, Potassium 4.7, Chloride 105, Carbon Dioxide 24.0, Anion Gap 7, BUN 73 H, Creatinine 4.44 H, Estim Creat Clear Calc 15.92, Est GFR (MDRD) Af Amer 17 L, Est GFR (MDRD) Non-Af14 L, BUN/Creatinine Ratio 16.4, Glucose 104, Calcium 8.1 L 06/03/23 05:47: POC Glucose 113 H 06/03/23 10:58: POC Glucose 124 H Micro: Microbiology 05/31/23 12:17 Tissue - Knee Gram Stain - Final 05/31/23 12:17 Tissue - Knee Wound Culture - Preliminary Pseudomonas aeruginosa Staphylococcus aureus 05/31/23 12:15 Tissue - Knee Gram Stain - Final 05/31/23 12:15 Tissue - Knee Wound Culture - Final Meth. resistant Staph. aureus 05/31/23 11:55 Tissue - Suprapatellar Pouch Gram Stain - Final 05/31/23 11:55 Tissue - Suprapatellar Pouch Wound Culture - Final Meth. resistant Staph. aureus Radiology Impression Renal Ultrasound 06/02/23 14:57 IMPRESSION: Diffuse urinary bladder wall thickening raises suspicion for cystitis versus chronic bladder outlet obstruction. Electronically Signed: Josh Joy MD at 19:58 EDT , 06/03/23 1550 <Electronically signed by Margie Jackson MD> Cosigner Signature (if applicable): CC: Dr. Juan Blankenship MD; Dr. Seng Salcedo MD; Dr. Ct Campuzano MD;Dr. Ct Dyson DO; Dr. Laura Cook MD~ Signed [facility] Work Phone: 1(355) 390-339907-07-2023 Progress note Author Oly Dexter [facility] June 02, 2023 2:58pm Note Date/Time June 02, 2023 7:18a m [facility] Medical Records Department [address] [place] [id number] Progress Note - Hospitalist 06/02/23 0715 MR#: [id number] Acct: [id number] Name: VEL NICHOLS Rep #:[id number] : 1960 62 From: Oly Dexter MD PCP: Dr. Ct Dyson, DO Status:ADM IN Location: [place] [id number] Reason for Visit Reason for Visit: Diagnoses Type 2 diabetes mellitus without complications (05/31/23) Essential (primary) hypertension (05/31/23) Atherosclerotic heart disease of [place] coronary artery without angina pectoris (05/31/23) Chronic obstructive pulmonary disease, unspecified (05/31/23) Gastro-esophageal reflux disease without esophagitis (05/31/23) Encounter for other preprocedural examination (05/31/23) Presence of right artificial knee joint (05/31/23) Subjective Subjective Reports leg is feeling sore but overall feeling fairly well with no acute complaints Objective Data Objective Data Vital Signs: Vital Signs Temp Pulse Resp BP Pulse Ox O2 Del Method O2 Flow Rate 99.2 F H 78 18 130/64 H 100 Room Air 3 06/02/23 05:00 06/02/23 05:00 06/02/23 05:00 06/02/23 05:00 06/02/23 05:00 06/02/23 05:00 05/31/23 15:49 Oxygen Flow Rate (L/min) 3 Oxygen Delivery Method Room Air Weight: 111 kg Body Mass Index (BMI) 38.3 Intake & Output: Intake and Output for Last 24 Hours 05/31/23 06/01/23 06/02/23 23:59 23:59 23:59 Intake Total 3343.25 / 3343.25 2049 / 2049 Output Total 1000 / 1000 Balance 3343.25 / 3343.25 1050 / 1050 Lab / Micro Data 06/02/23 05:35 06/02/23 05:35 Labs: Laboratory Results - last 24 hr 06/01/23 22:03: POC Glucose 84 06/02/23 05:07: POC Glucose 81 06/02/23 05:35: WBC 8.7, RBC 3.88 L, Hgb 10.6 L, Hct 34.7 L, MCV 89.4, MCH 27.3,MCHC 30.5 L, RDW Std Deviation 44.5 H, RDW Coeff of Alexa 13.6, Plt Count 199, MPV10.1 Micro: Microbiology 05/31/23 12:17 Tissue - Knee Gram Stain - Final 05/31/23 12:17 Tissue - Knee Wound Culture - Preliminary Gram negative mae 05/31/23 12:15 Tissue - Knee Gram Stain - Final 05/31/23 11:55 Tissue - Suprapatellar Pouch Gram Stain - Final 05/19/23 07:17 Swab (Method) Nasal Screen MRSA/MSSA - Final Physical Exam Narrative General: Alert, oriented, sitting up n no apparent distress HEENT: Atraumatic, normocephalic Eyes: Anicteric, normal conjunctiva, extraocular movements grossly intact Neck: Supple Respiratory: Clear to auscultation bilaterally, normal respiratory effort Cardiovascular: Regular rate and rhythm GI: Soft, nontender, nondistended Extremities: No edema Musculoskeletal: Moving all extremities Neuro: No overt focal neurological deficits Skin: No rashes appreciated Psych: Cooperative Assessment & Plan Assessment/Plan (1) Status post revision of total replacement of right knee: (2) CAD (coronary artery disease): (3) DM type 2 (diabetes mellitus, type 2): QUALIFIERS: Qualified Code(s): Z79.4 - jail (current) use of insulin (4) Hypertension: (5) COPD (chronic obstructive pulmonary disease): (6) GERD (gastroesophageal reflux disease): PLAN: Plan #Status post revision of total replacement of right knee ? 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 Cook -No complications -JYOTI titus -Scheduled Tylenol, pain control -Patient on cefazolin and started on Doxy -Aspirin 81 mg twice daily -06/01: Given JIMMY avoid NSAIDs for pain control -06/02: Aspirin twice daily for 4 weeks postop. Weightbearing as tolerated. Wound VAC on discharge with twice weekly dressing changes and wound care #Intraoperative knee cultures with Pseudomonas and gram-positive cocci -Patient was on Doxy but is growing Pseudomonas resistant to Zosyn, ID on board and switched him to meropenem -We will continue to follow cultures as there is also gram-positive cocci #JIMMY on likely CKD stage IIIb -Last creatinine 2.43 on 05/19/2023 however no previous values since 2018 -Creatinine today 3.47, BUN 56 -DC all NSAIDs/avoid all NSAIDs -Hold losartan -BP also soft this a.m., will give small bolus -06/02: Kidney function continues to worsen, monitor I's and O's and daily weights, will obtain urine studies and kidney ultrasound, may need nephrology evaluation if patient does not improve. Continue to hold losartan, avoid NSAIDs #Type 2 diabetes mellitus -Glucose checks and sliding scale insulin -Patient had several low blood glucoses, will decrease 80 units of glargine twice daily to 60 units twice daily and decrease the 30 twice daily of short acting to 20 twice daily, low glucoses despite home regimen may be due to JIMMY, continue to monitor and adjust -06/02: Changed sliding scale insulin to AC nightly to correspond with glucose checks, has had low blood glucose, will further adjust insulin #Coronary artery disease -Continue aspirin and statin #GERD -Continue Protonix #COPD -Does not use any inhalers at home at present, will add albuterol as needed #DVT ppx: Aspirin twice daily Oly Dexter MD Time spent in the patient's overall evaluation,decision-making process, review of diagnostic data, adjustment of management, discussion with other providers, nursing nursing and ancillary staff involved in patient's care documentation, 36minutes Charges/Coding Visit Charges Inpatient E&M: 35651 Subs Hosp L2 06/02/23 1458 <Electronically signed by Oly Dexter MD> Cosigner Signature (if applicable): CC: ~ Signed [facility] Work Phone: 1(461) 156-202907-07-2023 Consult note Author Kam James [facility] June 02, 2023 9:57am Note Date/Time June 02, 2023 9:57a m [facility] Medical Records Department [address] [place] [address] Consultation - Infectious Dx 06/02/23 0953 MR#: [id number] Acct: [id number] Name: MAGDALENAVEL Cassidy Rep #:[id number] : 1960 62 From: Kam James MD PCP: Dr. Ct Dyson, DO Status:ADM IN Location: [id number] Assessment & Plan Assessment/Plan (1) Septic arthritis of knee, right: PLAN: Of concern is the positive intraoperative culture growing Pseudomonas aeruginosa as well as a second pathogen. Also of concern is his worsening renalfunction. At this time we will treat with meropenem 500 mg IV every 12 hours based on his GFR. We will closely follow his renal function and intraoperative culture data. HPI Consult Data Date of Consult: 06/02/23 HPI Narrative Reason for Consultation: Right periprosthetic knee infection HPI Narrative: VEL NICHOLS, is a 62 M who presents with chronic pain in his right knee and required revision of the right total knee arthroplasty. Patient has underlying diabetes mellitus, chronic renal disease, hypertension and osteoarthritis. He initially underwent right total knee arthroplasty in 2017 and shortly thereafterhad a right periprosthetic knee infection. Patient has had multiple revisions of the right total knee total of 5 revisions he states. Patient was taken to the operating room 48 hours ago for revision right total knee arthroplasty. Operative cultures growing Pseudomonas aeruginosa rare growth as well as a rare gram-positive organism. Susceptibility profile the Pseudomonas aeruginosa reviewed. The rare gram- positive organism still pending. Of note this patient is having worsening renal function during this admission. No fevers or chills no significant constitutional symptoms. He denies any antibiotic use prior to coming to the hospital. He is overall clinically stable postop. [facility] Medical History (Updated 05/17/23 @ 10:28 by Marbella Hutson) Alcohol use Arthritis Back pain Cardiology follow-up encounter COPD (chronic obstructive pulmonary disease) Depression Dietary restriction Gastric reflux High cholesterol History of edema History of hiatal hernia History of pain when walking History of stress test Hypertension Insulin dependent diabetes mellitus Loss of hearing NSTEMI (non-ST elevated myocardial infarction) Smoker Wears dentures Home Medications escitalopram oxalate 5 mg tablet (Lexapro) 10 mg PO DAILY depression 10/15/16 [History Last Taken 10/15/16] hkdtdsxp-ook-qnhjv acid 0.4 mg-lycopene 300 mcg-lutein 250 mcg tablet (Centrum Silver) 1 ea PO DAILY supplement 10/15/16 [History Last Taken Unknown] omeprazole 20 mg capsule,delayed release 20 mg PO DAILY gerd 10/15/16 [History Last Taken 05/31/23] valsartan 80 mg tablet 80 mg PO DAILY bp 10/15/16 [History Last Taken 03/21/18 08:20] insulin aspart U-100 100 unit/mL (3 mL) subcutaneous pen (Novolog FlexPen U-100 Insulin aspart) 30 units subcut BID diabetes 01/15/18 [History Last Taken Unknown] insulin degludec 100 unit/mL (3 mL) subcutaneous pen (Tresiba FlexTouch U-100 insulin) 80 unit SQ BID diabetes 01/15/18 [History Last Taken Unknown] montelukast 10 mg tablet 10 mg PO DAILY@1700 #42 tabs 03/22/18 [Rx Last Taken Unknown] pravastatin 40 mg tablet 40 mg PO QHS 08/24/18 [History Last Taken Unknown] aspirin 81 mg tablet,delayed release 81 mg PO DAILY 05/17/23 [History Last Taken 05/24/23] cholecalciferol (vitamin D3) 25 mcg (1,000 unit) tablet (Vitamin D3) 25 mcg PO DAILY 05/17/23 [History Last Taken Unknown] oxycodone-acetaminophen 5 mg-325 mg tablet 1 tab PO Q8H PRN Pain 05/17/23 [History Last Taken Unknown] Allergy/AdvReac Type Severity Reaction Status Date / Time No Known Allergies Allergy Verified 05/17/23 10:10 Surgical History (Updated 06/01/23 @ 11:11 by Nick MCNEIL PA-C) Coronary angioplasty status History of arthroplasty of knee Hx laparoscopic cholecystectomy Hx of arthroscopy Hx of arthroscopy of right knee Hx of foot surgery Hx of hernia repair Hx of knee surgery Hx of knee surgery Hx of knee surgery Hx of left cataract extraction Hx of right cataract extraction Hx of total knee arthroplasty Status post coronary artery stent placement Status post revision of total replacement of right knee Social History Smoking Status: Current every day smoker tobacco type: cigarettes and smokelesstobacco ROS ROS Narrative As stated in history of present illness others negative Physical Exam Narrative Alert and responsive does not appear toxic. Lungs are clear heart exam S1-S2 abdomen is soft nontender. Right knee postop dressings are in place. Lab / Micro Data 06/02/23 05:35 06/02/23 05:35 Labs: Laboratory Results - last 24 hr 06/01/23 22:03: POC Glucose 84 06/02/23 05:07: POC Glucose 81 06/02/23 05:35: WBC 8.7, RBC 3.88 L, Hgb 10.6 L, Hct 34.7 L, MCV 89.4, MCH 27.3,MCHC 30.5 L, RDW Std Deviation 44.5 H, RDW Coeff of Alexa 13.6, Plt Count 199, MPV10.1, Sodium 139, Potassium 5.0, Chloride 107, Carbon Dioxide 26.0, Anion Gap 6,BUN 65 H, Creatinine 4.55 H, Estim Creat Clear Calc 15.54, Est GFR (MDRD) Af Amer 17 L, Est GFR (MDRD) Non-Af 14 L, BUN/Creatinine Ratio 14.3, Glucose 64 L, Calcium 7.8 L Micro: Microbiology 05/31/23 12:17 Tissue - Knee Gram Stain - Final 05/31/23 12:17 Tissue - Knee Wound Culture - Preliminary Pseudomonas aeruginosa Gram positive organism 05/31/23 11:55 Tissue - Suprapatellar Pouch Gram Stain - Final 05/31/23 11:55 Tissue - Suprapatellar Pouch Anaerobic Culture - Preliminary 05/31/23 12:15 Tissue - Knee Gram Stain - Final 05/31/23 12:15 Tissue - Knee Anaerobic Culture - Preliminary 06/02/23 0957 <Electronically signed by Kam James MD> Cosigner Signature (if applicable): CC: Dr. Oly Dexter MD; Dr. Ct Campuzano MD; Dr. Ct Dyson DO; Dr.Steven Anay MD~ Signed [facility] Work Phone: [phone]) 245-942207-07-2023 Progress note Author Laura Anay [facility] June 02, 2023 6:23am Note Date/Time June 02, 2023 6:16a [facility] Medical Records Department [facility] [place] [address] Progress Note - Orthopedic 06/02/23 0616 MR#: [id number] Acct: [id number] Name: VEL NICHOLS Rep #:[id number] : 1960 62 From: Laura Bermudez PCP: Dr. Ct Dyson DO Status:ADM IN Location: [place] KO998-4 Subjective Subjective Patient is doing well overall. He does report doing well with therapy with his range of motion. He has pain in the posterior knee. He feels a little stiffer this morning. Temperature did go up to 99.9 overnight otherwise no acute eventsare appreciated by patient or staff. Labs were drawn this morning but not yet returned. Vital signs have remained stable. Patient did have one positive culture for gram-negative rods on yesterday's results. Objective Data Objective Data Vital Signs: Vital Signs Temp Pulse Resp BP Pulse Ox O2 Del Method O2 Flow Rate 99.2 F H 78 18 130/64 H 100 Room Air 3 06/02/23 05:00 06/02/23 05:00 06/02/23 05:00 06/02/23 05:00 06/02/23 05:00 06/02/23 05:00 05/31/23 15:49 Oxygen Flow Rate (L/min) 3 Oxygen Delivery Method Room Air Weight: 244 lb 11.41 oz Body Mass Index (BMI) 38.3 Intake & Output: Intake and Output for Last 24 Hours 05/31/23 06/01/23 06/02/23 23:59 23:59 23:59 Intake Total 3343.25 / 3343.25 2050 / 2050 Output Total 1000 / 1000 Balance 3343.25 / 3343.25 1050 / 1050 Lab / Micro Data Attestation: I reviewed the patient's lab results. 06/01/23 05:40 06/01/23 05:40 Labs: Laboratory Results - last 24 hr 06/01/23 05:40: Sodium 139, Potassium 4.3, Chloride 110 H, Carbon Dioxide 25.0, Anion Gap 4 L, BUN 56 H, Creatinine 3.47 H, Estim Creat Clear Calc 20.37, Est GFR (MDRD) Af Amer 23 L, Est GFR (MDRD) Non-Af 19 L, BUN/Creatinine Ratio 16.1, Glucose 146 H, Calcium 7.7 L 06/01/23 06:33: POC Glucose 152 H 06/01/23 22:03: POC Glucose 84 Micro: Microbiology 05/31/23 12:17 Tissue - Knee Gram Stain - Final 05/31/23 12:17 Tissue - Knee Wound Culture - Preliminary Gram negative mae 05/31/23 12:15 Tissue - Knee Gram Stain - Final 05/31/23 11:55 Tissue - Suprapatellar Pouch Gram Stain - Final 05/19/23 07:17 Swab (Method) Nasal Screen MRSA/MSSA - Final Radiography Diagnostic Testing: Postoperative x-rays were reviewed showing stable well aligned total knee replacement with revision implants and stems Physical Exam Const alert and oriented x3 Extremity Extremity Narrative: Right lower extremity: Wound VAC dressing is intact. There is trace amount of bloody fluid in the tubing. There is minimal fluid in the canister. Surrounding skin she has minimal erythema reactive in nature. Sensations intact to light touch saphenous, sural, superficial peroneal, deep peroneal, and tibial distributions Motors intact EHL, DF, PF calves are soft and supple Assessment & Plan Assessment/Plan (1) Status post revision of total replacement of right knee: PLAN: 1. S/P revision right total knee replacement patella revision and polyethylene exchange with scarred excision and quadricepplasty POD #2 2. Continue Pain Medications: Tylenol and oxycodone 3. DVT Prophylaxis: Take 81 mg aspirin twice daily for 4 weeks postoperatively for DVT prophylaxis. Patient denies past history of DVT or pulmonary embolism. 4. PT/OT: Weightbearing as tolerated with walker. Due to drainage a wound VAC was placed yesterday. We will continue to work on approval for this for discharge to home. However, patient will likely need to stay over the weekend we will reassess need for wound VAC prior to discharge 5. H & H: Labs have not yet returned this morning. Yesterday's labs showed stable blood counts. Changes in hemoglobin and hematocrit are related to intra/postoperative blood loss 6. Continue postop medical management per medicine: Patient does have stable chronic kidney disease. 7. Encouraged Incentive Spirometry 8. Postoperative drainage: Wound care nurse is following. Working on obtainingapproval from [place] of Workmen's Comp. for VAC on discharge. We will continue with the wound VAC with continuous setting at 75 mmHg with twice weekly dressingchanges. We will also be filling out documentation as this is Workmen's Comp. Patient will require home health for dressing changes and physical therapy. 9. Currently on doxycycline orally, however patient now has 1 positive culture for gram-negative rods with rare amount of growth as well as 1 positive Gram stain for gram-positive cocci. Patient does have a history of Propionibacteriumand staph epi infections. Subsequent aspirations have been negative. Preoperative work-up for infection was negative. At this time we will consult infectious disease for recommendations on antibiotics prior to discharge. This may delay patient's discharge as appropriate antibiotics will need to be approved and arranged as well as PICC lines placed if IV antibiotics are recommended. Also recommend patient to take probiotic while on the antibiotic. Patient voiced understanding agreement. 10. Disposition: Pending infectious disease recommendations on antibiotics. Anticipating need for IV antibiotics based on positive cultures and patient history. This will likely be delayed by the approaching weekend. Patient will most likely require home health for changes. Case management currently involvedfor appropriate discharge planning. Hopeful for possible discharge home with home health tomorrow as long as patient is stable. Continue to focus and work on physical therapy while in the hospital. We are also checking with patient's primary care physician as he is on chronic Percocet for pain control. We are making sure that we are able to prescribe postoperative pain medications. This was discussed with the patient. He voiced understanding and agreement. I have reviewed the [place] Automated Rx Reporting System (OARRS) report for this patient for refill pattern and other prescriber involvement as part of the appropriate surveillance for the provision of acute and chronic controlled medications. The report was requested and reviewed on the date of this entry and was considered in the prescribing process. This dictation was created using voice recognition software. Phonetic and/or grammatical errors may exist. 06/02/23622 <Electronically signed by Laura Cook MD> Cosigner Signature (if applicable): CC: ~ Signed [facility] Work Phone: 1(464) 925-887507-06-2023 Progress note Author [facility] June 01, 2023 11:17am Note Date/Time June 01, 2023 11:17 am [facility] Medical Records Department [address] [place] [address] Progress Note - Orthopedic 06/01/23 1109 MR#: [id number] Acct: [id number] Name: VEL NICHOLS Rep #:[id number] : 1960 62 From: Nick MCNEIL PA-C PCP: Dr. Ct Dyson, DO Status:ADM IN Location: MS3 WH937-9 Subjective Subjective The patient was sitting in bedside chair with family present upon examination. Patient denies any chest pain, shortness of breath, dizziness, lightheadedness, nausea or vomiting, or calf pain. Pain is controlled on medications. Patient states he is having pain but medications are making it tolerable. He had a Prevena incisional wound VAC which stopped working and is full from drainage. He has been working with physical therapy. Objective Data Objective Data Vital Signs: Vital Signs Temp Pulse Resp BP Pulse Ox O2 Del Method O2 Flow Rate 98.0 F 69 18 98/51 L 10 Room Air 3 06/01/23 08:00 06/01/23 08:00 06/01/23 08:00 06/01/23 02:03 06/01/23 10:44 06/01/23 08:00 05/31/23 15:49 Oxygen Flow Rate (L/min) 3 Oxygen Delivery Method Room Air Weight: 111 kg Body Mass Index (BMI) 38.3 Intake & Output: Intake and Output for Last 24 Hours 05/30/23 05/31/23 06/01/23 23:59 23:59 23:59 Intake Total 3343.25 / 3343.25 50 / 50 Balance 3343.25 / 3343.25 50 / 50 Lab / Micro Data 06/01/23 05:40 06/01/23 05:40 Labs: Laboratory Results - last 24 hr 05/31/23 14:56: POC Glucose 50 L 05/31/23 16:17: POC Glucose 78 05/31/23 20:36: POC Glucose 189 H 06/01/23 05:40: WBC 7.8, RBC 4.07 L, Hgb 11.2 L, Hct 36.5 L, MCV 89.7, MCH 27.5,MCHC 30.7 L, RDW Std Deviation 44.2 H, RDW Coeff of Alexa 13.5, Plt Count 171, MPV9.6, Sodium 139, Potassium 4.3, Chloride 110 H, Carbon Dioxide 25.0, Anion Gap 4L, BUN 56 H, Creatinine 3.47 H, Estim Creat Clear Calc 20.37, Est GFR (MDRD) Af Amer 23 L, Est GFR (MDRD) Non-Af 19 L, BUN/Creatinine Ratio 16.1, Glucose 146 H,Calcium 7.7 L 06/01/23 06:33: POC Glucose 152 H Micro: Microbiology 05/19/23 07:17 Swab (Method) Nasal Screen MRSA/MSSA - Final Radiography Diagnostic Testing: Radiology Impression Knee X-Ray 05/31/23 09:49 IMPRESSION: Status post right total knee replacement. There is good alignment. Postoperative soft tissue changes. Electronically Signed: Galileo Kam MD at 15:01 EDT , Physical Exam Narrative Vital signs stable and afebrile. Patient has had 1 reading of low blood pressure but denies any dizziness or lightheadedness Prevena incisional wound VAC is currently not working and completely full in canister and tubing. There is drainage throughout the dressing. Patient is able to plantarflex and dorsiflex actively. Sensation is intact to light touch to saphenous, sural, superficial and deep peroneal, and tibial distribution. Negative Homans bilaterally, negative signs and symptoms of DVT. Const alert, oriented x3 and no apparent distress Assessment & Plan Assessment/Plan (1) Status post revision of total replacement of right knee: PLAN: 1. S/P revision right total knee replacement patella revision and polyethylene exchange with scarred excision and quadricepplasty POD #1 2. Continue Pain Medications: Tylenol and oxycodone 3. DVT Prophylaxis: Take 81 mg aspirin twice daily for 4 weeks postoperatively for DVT prophylaxis. Patient denies past history of DVT or pulmonary embolism. 4. PT/OT: Weightbearing as tolerated with walker. Due to drainage did recommend with physical therapy to avoid excessive flexion until we get appropriate wound VAC placed. 5. H & H: 11.2/36.5, asymptomatic. Postoperative anemia secondary to acute blood loss from surgery without any intra operative complications. 6. Continue postop medical management per medicine: Patient does have stable chronic kidney disease. 7. Encouraged Incentive Spirometry 8. Postoperative drainage: Patient initially had a Prevena incisional wound VACwhich stopped working due to drainage. I did consult wound nurse and patient will require wound VAC at this time due to the drainage. Upon removal of the dressings patient did not have active bleeding. We will continue with the woundVAC with continuous setting at 75 mmHg with twice weekly dressing changes. We will also be filling out documentation as this is Workmen's Comp. Patient will require home health for dressing changes and physical therapy. 9. Currently on doxycycline for 2 weeks postoperatively. Microbiology wound and tissue specimens are currently pending. I discussed with the patient potential side effects of doxycycline including sensitivity to the sunlight and increased risk of skin burn. Recommend patient take appropriate precautions. Also recommend patient to take probiotic while on the antibiotic. Patient voiced understanding agreement. 10. Disposition: Patient will require additional night stay due to the drainageas well as us following cultures to make sure patient is going home on appropriate antibiotics. Wound nurse currently involved with placement of the wound VAC due to the drainage of wound. Patient will require home health for changes. Case management currently involved for appropriate discharge planning. Hopeful for possible discharge home with home health tomorrow as long as patient is stable. Continue to focus and work on physical therapy while in the hospital. We are also checking with patient's primary care physician as he is on chronic Percocet for pain control. We are making sure that we are able to prescribe postoperative pain medications. This was discussed with the patient. He voiced understanding and agreement. I have reviewed the [place] Automated Rx Reporting System (OARRS) report for this patient for refill pattern and other prescriber involvement as part of the appropriate surveillance for the provision of acute and chronic controlled medications. The report was requested and reviewed on the date of this entry and was considered in the prescribing process. This dictation was created using voice recognition software. Phonetic and/or grammatical errors may exist. 06/01/23 1117 <Electronically signed by Nick MCNEIL PA-C> Cosigner Signature (if applicable): CC: ~ Signed [facility] Work Phone: [phone]) 207-678507-06-2023 Progress note Author Oly Dexter [facility] June 01, 2023 10:20am Note Date/Time June 01, 2023 7:34a m [facility] Medical Records Department [address] [place] [address] Progress Note - Hospitalist 06/01/23 0729 MR#: [id number] Acct: [id number] Name: MAGDALENAVEL Cassidy Rep #:[id number] : 1960 62 From: Oly Dexter MD PCP: Dr. Ct Dyson, DO Status:ADM IN Location: [place] [address] Reason for Visit Reason for Visit: Diagnoses Type 2 diabetes mellitus without complications (05/31/23) Essential (primary) hypertension (05/31/23) Atherosclerotic heart disease of [place] coronary artery without angina pectoris (05/31/23) Chronic obstructive pulmonary disease, unspecified (05/31/23) Gastro-esophageal reflux disease without esophagitis (05/31/23) Encounter for other preprocedural examination (05/31/23) Presence of right artificial knee joint (05/31/23) Subjective Subjective Patient reports feeling fairly well overall, pain manageable and with no other acute complaints Objective Data Objective Data Vital Signs: Vital Signs Temp Pulse Resp BP Pulse Ox O2 Del Method O2 Flow Rate 97.6 F L 63 18 98/51 L 95 Room Air 3 06/01/23 02:03 06/01/23 02:03 06/01/23 02:03 06/01/23 02:03 06/01/23 02:03 06/01/23 02:03 05/31/23 15:49 Oxygen Flow Rate (L/min) 3 Oxygen Delivery Method Room Air Weight: 111 kg Body Mass Index (BMI) 38.3 Intake & Output: Intake and Output for Last 24 Hours 05/30/23 05/31/23 06/01/23 23:59 23:59 23:59 Intake Total 3343.25 / 3343.25 50 / 50 Balance 3343.25 / 3343.25 50 / 50 Lab / Micro Data 06/01/23 05:40 06/01/23 05:40 Labs: Laboratory Results - last 24 hr 05/31/23 09:53: POC Glucose 70 L 05/31/23 14:56: POC Glucose 50 L 05/31/23 16:17: POC Glucose 78 05/31/23 20:36: POC Glucose 189 H 06/01/23 05:40: WBC 7.8, RBC 4.07 L, Hgb 11.2 L, Hct 36.5 L, MCV 89.7, MCH 27.5,MCHC 30.7 L, RDW Std Deviation 44.2 H, RDW Coeff of Alexa 13.5, Plt Count 171, MPV9.6, Sodium 139, Potassium 4.3, Chloride 110 H, Carbon Dioxide 25.0, Anion Gap 4L, BUN 56 H, Creatinine 3.47 H, Estim Creat Clear Calc 20.37, Est GFR (MDRD) Af Amer 23 L, Est GFR (MDRD) Non-Af 19 L, BUN/Creatinine Ratio 16.1, Glucose 146 H,Calcium 7.7 L 06/01/23 06:33: POC Glucose 152 H Micro: Microbiology 05/19/23 07:17 Swab (Method) Nasal Screen MRSA/MSSA - Final Radiography Diagnostic Testing: Radiology Impression Knee X-Ray 05/31/23 09:49 IMPRESSION: Status post right total knee replacement. There is good alignment. Postoperative soft tissue changes. Electronically Signed: Galileo Kam MD at 15:01 EDT , Physical Exam Narrative General: Alert, oriented, sitting up in chair in no apparent distress HEENT: Atraumatic, normocephalic Eyes: Anicteric, normal conjunctiva, extraocular movements grossly intact Neck: Supple Respiratory: Clear to auscultation bilaterally, normal respiratory effort Cardiovascular: Regular rate and rhythm GI: Soft, nontender, nondistended Extremities: No edema Musculoskeletal: Moving all extremities Neuro: No overt focal neurological deficits Skin: No rashes appreciated Psych: Cooperative Assessment & Plan Assessment/Plan (1) Status post revision of total replacement of right knee: (2) CAD (coronary artery disease): (3) DM type 2 (diabetes mellitus, type 2): QUALIFIERS: Qualified Code(s): Z79.4 - jail (current) use of insulin (4) Hypertension: (5) COPD (chronic obstructive pulmonary disease): (6) GERD (gastroesophageal reflux disease): PLAN: Plan #Status post revision of total replacement of right knee ? 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 Cook -No complications -JYOTI hose -Scheduled Tylenol, pain control -Patient on cefazolin and started on Doxy -Aspirin 81 mg twice daily -06/01: Given JIMMY avoid NSAIDs for pain control #JIMMY on likely CKD stage IIIb -Last creatinine 2.43 on 05/19/2023 however no previous values since 2019 -Creatinine today 3.47, BUN 56 -DC all NSAIDs/avoid all NSAIDs -Hold losartan -BP also soft this a.m., will give small bolus #Type 2 diabetes mellitus -Glucose checks and sliding scale insulin -Patient had several low blood glucoses, will decrease 80 units of glargine twice daily to 60 units twice daily and decrease the 30 twice daily of short acting to 20 twice daily, low glucoses despite home regimen may be due to JIMMY, continue to monitor and adjust #Coronary artery disease -Continue aspirin and statin #GERD -Continue Protonix #COPD -Does not use any inhalers at home at present, will add albuterol as needed #DVT ppx: Aspirin twice daily Oly Dexter MD Time spent in the patient's overall evaluation,decision-making process, review of diagnostic data, adjustment of management, discussion with other providers, nursing nursing and ancillary staff involved in patient's care documentation, 36minutes Charges/Coding Visit Charges Inpatient E&M: 00795 Subs Hosp 06/01/23 1020 <Electronically signed by Oly Dexter MD> Cosigner Signature (if applicable): CC: ~ Signed [facility] Work Phone: [phone]) 958-886207-05-2023 Progress note Author Oly Dexter [facility] May 31, 2023 5:43pm Note Date/Time May 31, 2023 4:23p m [facility] Medical Records Department [address] [place] [address] Progress Note - Hospitalist 05/31/23 1623 MR#: [id number] Acct: [id number] Name: VEL NICHOLS Rep #:[id number] : 1960 62 From: Oly Dexter MD PCP: Dr. Ct Dyson, DO Status:ADM IN Location: [place] KO709-2 Reason for Visit Reason for Visit: Diagnoses Encounter for other preprocedural examination (05/31/23) Subjective Subjective 62-year-old male history of type 2 diabetes mellitus, coronary artery disease, GERD, COPD presented to [facility] 05/31/2023 for revision of right total knee replacement patella revision and polyethylene exchange with scar excision and quadricepsplasty. He went to surgery 05/31/2023 and underwent surgery with no complications. Hospitalist consulted for med management. Patient evaluated bedside upon arriving on the floor and reported aside from some soreness in his knee he was doing well, denied any chest pain or shortness of breath, denied any other complaints. Objective Data Objective Data Vital Signs: Vital Signs Temp Pulse Resp BP Pulse Ox O2 Del Method O2 Flow Rate 97.6 F L 61 18 155/59 H 100 Room Air 4 05/31/23 15:57 05/31/23 15:57 05/31/23 15:57 05/31/23 15:57 05/31/23 15:57 05/31/23 15:57 05/31/23 15:15 Oxygen Flow Rate (L/min) 4 Oxygen Delivery Method Room Air Weight: 111 kg Body Mass Index (BMI) 38.3 Intake & Output: Intake and Output for Last 24 Hours 05/29/23 05/30/23 05/31/23 23:59 23:59 23:59 Intake Total 2212 / 2212 Balance 2212 / 2212 Lab / Micro Data 05/19/23 07:17 05/19/23 07:17 Labs: Laboratory Results - last 24 hr 05/31/23 09:53: POC Glucose 70 L 05/31/23 14:56: POC Glucose 50 L Micro: Microbiology 05/19/23 07:17 Swab (Method) Nasal Screen MRSA/MSSA - Final Radiography Diagnostic Testing: Radiology Impression Knee X-Ray 05/31/23 09:49 IMPRESSION: Status post right total knee replacement. There is good alignment. Postoperative soft tissue changes. Electronically Signed: Galileo Kam MD at 15:01 EDT , Physical Exam Narrative General: Alert, oriented, no apparent distress HEENT: Atraumatic, normocephalic Eyes: Anicteric, normal conjunctiva, extraocular movements grossly intact Neck: Supple Respiratory: Clear to auscultation bilaterally, normal respiratory effort Cardiovascular: Regular rate and rhythm GI: Soft, nontender, nondistended Extremities: No edema Musculoskeletal: Moving all extremities Neuro: No overt focal neurological deficits Skin: No rashes appreciated Psych: Cooperative Assessment & Plan Assessment/Plan (1) Status post revision of total replacement of right knee: PLAN: ? Right total knee arthrofibrosis status post revision of right total kneereplacement with patellar revision and polyethylene exchange with scar excision and quadricepsplasty on 05/31/[address] Cook -No complications -JYOTI titus -Scheduled Tylenol, pain control -Patient on cefazolin and started on Doxy -Aspirin 81 mg twice daily (2) COPD (chronic obstructive pulmonary disease): PLAN: Does not use any inhalers at home at present, will add albuterol as needed (3) GERD (gastroesophageal reflux disease): PLAN: Continue Protonix (4) CAD (coronary artery disease): PLAN: Continue aspirin and statin (5) DM type 2 (diabetes mellitus, type 2): QUALIFIERS: Qualified Code(s): Z79.4 - jail (current) use of insulin PLAN: -Patient on long-acting and Premeal twice daily -Blood glucose checks ACHS (6) Hypertension: PLAN: Continue home medication Charges/Coding Visit Charges Inpatient E&M: 14138 [facility] Hosp L2 05/31/23 2130 <Electronically signed by Oly Dexter MD> Cosigner Signature (if applicable): CC: ~ Signed [facility] Work Phone: 1(272) 384-874007-05-2023 [facility]* FINN OBRIEN DO: PERFORM, SIGN, VERIFY Event Display: Anesthesiology Consultation Authored Date: Patient: VEL NICHOLS Age: 64 years Sex: Male : 1960 Associated Diagnoses: None Author: FINN OBRIEN DO Preoperative Information Greater than 6 hours Anesthesia history Patient's history: negative. Family's history: negative. Review of Systems Ear/Nose/Mouth/Throat: Negative except as documented in history of present illness. Respiratory: Negative except as documented in history of present illness. Cardiovascular: Negative except as documented in history of present illness. Gastrointestinal: Negative except as documented in history of present illness. Genitourinary: Negative except as documented in history of present illness. Endocrine: Negative except as documented in history of present illness. Musculoskeletal: Negative except as documented in history of present illness. Integumentary: Negative except as documented in history of present illness. Neurologic: Negative except as documented in history of present illness. Health Status Allergies: Allergic Reactions (Selected) Severity Not Documented Bee Stings- No reactions were documented. Nonallergic Reactions (Selected) Severity Not Documented Lisinopril- Cough., Allergies (2) ActiveSeverityReaction Bee StingsNone Documented lisinoprilCough Current medications: (Selected) Inpatient Medications Ordered Adrenalin 4 mg + Normal Saline 250 mL: Start: 11/06/24 5:00:00 EST, 18 hour(s), Stop date 11/06/24 22:59:00 EST, Infuse as directed for CVOR Betadine 10% topical solution: Start: 09/20/22 6:00:00 EDT, Dose = 17.5 mL, Soln, Topical (INT), PREOP pharm, 18 hour(s), Stop: 09/20/22 23:59:00 EDT, mL/hr, Infuse over: 0 minute(s), 0 Bicitra: Start: 09/20/22 6:00:00 EDT, Dose = 30 mL, Soln, Oral, PREOP pharm, Stop: 09/20/22 23:59:00 EDT, 0 Bolus LR 1000 mL: Start: 09/20/22 6:00:00 EDT, Dose = 1,000 mL, Soln, IV Bolus, PREOP pharm, 18 hour(s), Stop: 09/20/22 23:59:00 EDT Cardioplegic [place]: Start: 11/06/24 5:00:00 EST, Stop date 11/06/24 5:00:00 EST, Rate: 0 mL/hr CeleBREX: Start: 09/20/22 6:00:00 EDT, Dose = 400 mg, = 2 cap(s), Oral, PREOP pharm, Stop: 09/20/2223:59:00 EDT, 0 Cyklokapron IVPB: Start: 09/20/22 6:00:00 EDT, Dose = 2,000 mg, = 20 mL, Topical (INT), PREOP pharm, 18 hour(s), Stop: 09/20/22 23:59:00 EDT, Rate: 0 mL/hr, Infuse over: 0 minute(s), 0 Decadron: Start: 09/20/22 6:00:00 EDT, Dose = 10 mg, = 1 mL, IV Push, AsDirected, 18 hour(s), Stop:09/20/22 23:59:00 EDT, 0 Dextrose 50% IV Push: Start: 11/04/24 6:02:00 EST, Dose = 12.5 gram(s), = 25 mL, IV Push, AsDirected, PRN, Hypoglycemia, 11/04/24 6:02:00 EST Heparin 10,000 units/mL: Start: 11/06/24 5:00:00 EST, Dose = 10,000 unit(s), = 1 mL, Miscellaneous,PREOP pharm, 12 hour(s), Stop: 11/06/24 16:59:00 EST, mL/hr, Infuse over: 0 minute(s), 0 Heparin HBW CARDIAC Bolus 5000 units/mL: Start: 11/04/24 6:16:00 EST, Dose = 4,000 unit(s), = 0.8 mL, IV Push, q6h, PRN, Protocol, Weight Based Heparin, 11/04/24 6:16:00 EST Heparin for IV 25,000 unit(s) + Dextrose 5% Premix Diluent 250 mL: Start: 11/04/24 6:16:00 EST, STAT, Rate: 10 mL/hr, 11/04/24 6:16:00 EST HumaLOG 100 units/mL subcutaneous solution: Start: 11/04/24 8:00:00 EST, Give 0- 5 units/dose, Subcutaneous, achs, 11/04/24 6:07:00 EST Kefzol: Start: 09/20/22 6:00:00 EDT, Dose = 2 gram(s), IV Piggyback, PREOP pharm, Stop: 09/20/22 23:59:00 EDT, Rate: 200 mL/hr, Infuse over: 30 minute(s), 0 Kefzol: Start: 11/06/24 6:00:00 EST, Dose= 2 gram(s), = 20 mL, IV Push (INT), PREOP pharm, Routine,Rate: 240 mL/hr, Infuse over: 5 minute(s), 20 mL, 11/06/24 6:00:00 EST NO METFORMIN (Glucophage) X 48hrs-patient has received contrast: Start: 11/04/24 14:00:00 EST, Unscheduled, 48 hour(s), Stop: 11/06/24 13:59:00 EST, 11/04/24 13:11:00 EST NS Irrigation Bottle 500 mL + cefuroxime 1.5 gram(s): Start: 11/06/24 5:00:00 EST, Topical (CONT), use as directed in CVOR, 18 hour(s), Stop date 11/06/24 22:59:00 EST, 500 Naropin 25 mg + Toradol 15 mg + EPINEPHrine 1 mg/mL injectable solution 0.3 mg + morphine 2.5 mg...: Start: 09/20/22 6:00:00 EDT, Soln, Other, PREOP pharm, 18 hour(s), Stop: 09/20/22 23:59:00 EDT, mL/hr, Infuse over: 0 minute(s), 0 Naropin 25 mg + Toradol 15 mg + EPINEPHrine 1 mg/mL injectable solution 0.3 mg + morphine 2.5 mg...: Start: 09/20/22 6:00:00 EDT, Soln, Other, PREOP pharm, 18 hour(s), Stop: 09/20/22 23:59:00 EDT, mL/hr, Infuse over: 0 minute(s), 0 No Vitamin E,clopidogrel (Plavix), 5 days before surgery: Start: 11/04/24 15:24:00 EST, Daily, 11/04/24 15:24:00 EST No prasugrel (Effient) 7 days before surgery: Start: 11/04/24 15:24:00 EST, Daily, 11/04/24 15:24:00 EST OxyCONTIN: Start: 09/20/22 6:00:00 EDT, Dose = 10 mg, = 1 tab(s), Oral, PREOP pharm, Stop: 09/20/2223:59:00 EDT, 0 Pepcid IV: Start: 09/20/22 6:00:00 EDT, Dose = 20 mg, = 2 mL, IV Push, PREOP pharm, Stop: 09/20/22 23:59:00 EDT, 0 Peridex 0.12% oral rinse liquid: Start: 11/05/24 21:00:00 EST, Dose = 15 mL, Liq, Oral, BID, 2 dose(s), Stop: 11/06/24 9:00:00 EST, 11/05/24 21:00:00 EST amLODIPine: Start: 11/04/24 10:32:00 EST, Dose = 5 mg, = 1 tab(s), Oral, qDay, NOW, 11/04/24 10:32:00 EST aspirin 81 mg oral delayed release tablet: Start: 11/04/24 9:00:00 EST, Dose = 81 mg, = 1 tab(s), Oral, qDay, 11/04/24 5:50:00 EST atorvastatin: Start: 11/04/24 22:00:00 EST, Dose = 40 mg, = 1 tab(s), Oral, qDay, 11/04/24 5:50:00 EST escitalopram: Start: 11/04/24 9:00:00 EST, Dose = 5 mg, = 1 tab(s), Oral, qDay, 11/04/24 5:50:00 EST ezetimibe: Start: 11/04/24 9:00:00 EST, Dose = 10 mg, = 1 tab(s), Oral, qDay, 11/04/24 5:50:00 EST insulin regular 100 unit(s) + Normal Saline 100 mL: Start: 11/06/24 5:00:00 EST, 18 hour(s), Stop date 11/06/24 22:59:00 EST, Infuse as directed for CVOR magnesium sulfate for IV bolus: Start: 11/04/24 6:02:00 EST, 2 g, Dose = 50 mL, Soln, IV Piggyback,AsDirected, PRN, for Mg level 1.5-1.8 mg/dl, Rate: 25 mL/hr, Infuse over: 2 hour(s), 0, 11/04/24 6:02:00 EST magnesium sulfate for IV bolus: Start: 11/04/24 6:02:00 EST, 4 g, Dose = 100 mL, Soln, IV Piggyback, AsDirected, PRN, for Mg level 1.1-1.4 mg/dl, Rate: 25 mL/hr, Infuse over: 4 hour(s), 0, 11/04/24 6:02:00 EST magnesium sulfate for IV bolus: Start: 11/04/24 6:02:00 EST, 6 g, Dose = 12 mL, Soln, IV Piggyback,AsDirected, PRN, for Mg level 1 mg/dl or less, Rate: 41.67 mL/hr, Infuse over: 6 hour(s), 0, 11/04/24 6:02:00 EST mupirocin 2% topical ointment: Start: 11/04/24 15:24:00 EST, Dose = 1 willi, Nostril, each, BID, Apply to: each nostril, 5 day(s), Stop: 11/09/24 9:00:00 EST, Ointment, 11/04/24 15:24:00 EST nitroglycerin 0.4 mg sublingual tablet: Start: 11/04/24 6:24:00 EST, 0.4 mg, Dose = 1 tab(s), Tab, Sublingual, q15min, PRN, Chest pain, 11/04/24 6:24:00 EST norepinephrine 8 mg + Normal Saline 250 mL: Start: 11/06/24 5:00:00 EST, 18 hour(s), Stop date 11/06/24 22:59:00 EST, Infuse as directed for CV[facility] pantoprazole: Start: 11/04/24 6:00:00 EST, Dose = 40 mg, = 1 tab(s), Oral, qDay, 11/04/24 5:51:00 EST potassium chloride bolus: Start: 11/04/24 6:02:00 EST, Dose = 20 mEq, = 100 mL, IV Piggyback, AsDirected, PRN, for K+ level 2.5 - 2.9 mEq/dL, Rate: 50 mL/hr, Infuse over: 2 hour(s), 0, 11/04/24 6:02:00 EST potassium chloride: Start: 11/04/24 6:02:00 EST, Dose = 20 mEq, = 1 tab(s), Oral, AsDirected, PRN, for K+ level 3.5 - 3.9 mEq/L, 11/04/24 6:02:00 EST potassium chloride: Start: 11/04/24 6:02:00 EST, Dose = 40 mEq, = 2 tab(s), Oral, AsDirected, PRN, for K+ level 2.5 - 2.9 mEq/dL, 11/04/24 6:02:00 EST potassium chloride: Start: 11/04/24 6:02:00 EST, Dose = 40 mEq, = 2 tab(s), Oral, AsDirected, PRN, for K+ level 3-3.4 mEq/L, 11/04/24 6:02:00 EST tranexamic acid 1 gram(s): 11/06/24 5:00:00 EST, PMX bag, IV Piggyback, 18 hour(s), Physician Stop,Stop date 11/06/24 22:59:00 EST tranexamic acid 1 gram(s): 11/06/24 5:00:00 EST, PMX bag, IV Piggyback, 18 hour(s), Physician Stop,Stop date 11/06/24 22:59:00 EST tranexamic acid 1 gram(s): 11/06/24 5:00:00 EST, PMX bag, IV Piggyback, 18 hour(s), Physician Stop,Stop date 11/06/24 22:59:00 EST Prescriptions Prescribed Jardiance 10 mg oral tablet: Dose : 10 mg = 1 tab(s), Oral, qAM, # 30 tab(s), 11 Refill(s), Pharmacy: [facility]/pharmacy #[id number], 170, cm, 12/24/21 9:36:00 EST, Height, kg, 12/24/21 9:36:00 EST, Dosing Weight Rybelsus 7 mg oral tablet: Dose : 7 mg = 1 tab(s), Oral, qDay, take at least 30 minutes before first food, beverage, or other oral meds, # 90 tab(s), 3 Refill(s), Pharmacy: [facility],DM2 (diabetes mellitus, type 2), 168, cm, 09/23/24 15:28:00 EDT, Height, kg, 1... Tresiba FlexTouch 100 units/mL 3 mL subcutaneous solution: Dose : 60 unit(s) =, Subcutaneous, qDay,# 15 mL, 3 Refill(s) acetaminophen-oxyCODONE 325 mg-5 mg oral tablet: Dose = 1 tab(s), Oral, TID, PRN for pain, # 90 tab(s), 0 Refill(s), [id number], Chronic knee 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, 168, cm, 09/23/24 15:28:00 EDT, Height, 101.3, kg, 09/25/24 16:25:00 EDT, Dosing Weight amLODIPine 5 mg oral tablet: Dose : 5 mg = 1 tab(s), Oral, qPM, # 90 tab(s), 3 Refill(s), [id number], Hypertension, 168, cm, 12/26/23 15:54:00 EST, Height, kg, 12/26/23 15:54:00 EST, Dosing Weight atorvastatin 40 mg oral tablet: Dose : 40 mg = 1 tab(s), Oral, qDay, # 90 tab(s), 3 Refill(s), [id number], 168, cm, 12/26/23 15:54:00 EST, Height, kg, 12/26/23 15:54:00 EST, Dosing Weight escitalopram 5 mg oral tablet: Dose : 5 mg = 1 tab(s), Oral, qDay, # 90 tab(s), 3 Refill(s), [id number], 168, cm, 12/26/23 15:54:00 EST, Height, kg, 12/26/23 15:54:00 EST, Dosing Weight ezetimibe 10 mg oral tablet: Dose : 10 mg = 1 tab(s), Oral, qDay, # 90 tab(s), 3 Refill(s), [id number], 168, cm, 12/26/23 15:54:00 EST, Height, kg, 12/26/23 15:54:00 EST, Dosing Weight hydroCHLOROthiazide 25 mg oral tablet: Dose : 25 mg = 1 tab(s), Oral, qDay, # 90 tab(s), 3 Refill(s), [id number], 168, cm, 12/26/23 15:54:00 EST, Height, kg, 12/26/23 15:54:00 EST, Dosing Weight losartan 100 mg oral tablet: Dose : 100 mg = 1 tab(s), Oral, qDay, # 100 tab(s), 3 Refill(s), Pharmacy: [facility]/pharmacy #[id number], 168.5, cm, 09/25/23 13:53:00 EDT, Height, kg, 09/25/23 13:53:00 EDT, DosingWeight pantoprazole 40 mg oral enteric coated tablet: Dose : 40 mg = 1 tab(s), Oral, qDay, # 90 tab(s), 3 Refill(s), [id number], 168, cm, 12/26/23 15:54:00 EST, Height, kg, 12/26/23 15:54:00 EST, Dosing Weight Documented Medications Documented Vitamin D3 25 mcg (1000 intl units) oral capsule: Dose : 25 mcg = 1 cap(s), Oral, Daily, 0 Refill(s) aspirin 81 mg oral delayed release tablet: Dose : 81 mg = 1 tab(s), Oral, qDay, # 30 tab(s), 0 Refill(s), Medications (33) Active Scheduled: (15) amLODIPine 5 mg tablet 5 mg 1 tab(s), Oral, qDay aspirin 81 mg EC 81 mg 1 tab(s), Oral, qDay atorvastatin 40 mg tablet 40 mg 1 tab(s), Oral, qDay cardioplegic [place] formula 1,052.8 mL, Miscellaneous, Once ceFAZolin syringe 2 gram(s) 20 mL, IV Push (INT), PREOP pharm chlorhexidine topical 0.12% Liquid (60 mL) 15 mL, Oral, BID escitalopram 5 mg tablet 5 mg 1 tab(s), Oral, qDay ezetimibe 10 mg tablet 10 mg 1 tab(s), Oral, qDay heparin 10,000 unit(s) 1 mL, Miscellaneous, PREOP pharm insulin lispro 100 units/mL Soln (3 mL) Give 0-5 units/dose, Subcutaneous, achs mupirocin 2% Ointment 22 Gram(s) tube 1 willi, Nostril, each, BID No metformin for 48 hrs post contrast 1 EA, Miscellaneous, Unscheduled No prasugrel (Effient) 7 days before surgery 1 EA, Miscellaneous, Daily NO vitamin E, clopidogrel (Plavix) 5 days before surgery 1 EA, Miscellaneous, Daily pantoprazole 40 mg EC tablet 40 mg 1 tab(s), Oral, qDay Continuous: (8) epinephrine 4 mg + Sodium Chloride 0.9% 250 mL 250 mL, Intravenous heparin 25,000 unit(s) + Dextrose 5% Premix Diluent 250 mL 250 mL, Intravenous, 10 mL/hr insulin regular 100 unit(s) + Sodium Chloride 0.9% 100 mL 100 mL, Intravenous norepinephrine 8 mg + Sodium Chloride 0.9% 250 mL 250 mL, Intravenous Sodium Chloride 0.9% IRR 500 mL + cefuroxime 1.5 gram(s) 500 mL, Topical (CONT) tranexamic acid PMX 1 gram(s) , IV Piggyback tranexamic acid PMX 1 gram(s) , IV Piggyback tranexamic acid PMX 1 gram(s) , IV Piggyback PRN: (10) dextrose 50% Solution Disp syringe 50 mL 12.5 gram(s) 25 mL, IV Push, AsDirected heparin 5,000 units/mL (1 mL) vial 4,000 unit(s) 0.8 mL, IV Push, q6h magnesium sulfate 4 gram(s)/100mL PMX 4 g 100 mL, IV Piggyback, AsDirected magnesium sulfate 50% (500mg/mL) 6 g 12 mL, IV Piggyback, AsDirected magnesium sulfate PMX 2 g 50 mL, IV Piggyback, AsDirected nitroglycerin 0.4 mg Tablet (25/btl) 0.4 mg 1 tab(s), Sublingual, q15min potassium chloride (PMX) 20 mEq/100 mL 20 mEq 100 mL, IV Piggyback, AsDirected potassium chloride 20 mEq ER tablet 20 mEq 1 tab(s), Oral, AsDirected potassium chloride 20 mEq ER tablet 40 mEq 2 tab(s), Oral, AsDirected potassium chloride 20 mEq ER tablet 40 mEq 2 tab(s), Oral, AsDirected Problem list: Medical COPD exacerbation / SNOMED CT 6769753657 / Confirmed Chest pain in adult / SNOMED CT 17577424 / Confirmed Chronic kidney disease / SNOMED CT 2480288210 / Confirmed Stage 3b chronic kidney disease / SNOMED CT 5497258486 / Confirmed Chronic knee 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 / SNOMED CT 6311772113 / Confirmed COPD (chronic obstructive pulmonary disease) / SNOMED CT [id number] / Confirmed CAD IN [place] / SNOMED CT 3972302412 / Confirmed Depression / SNOMED CT 140233809 / Confirmed GERD (gastroesophageal reflux disease) / SNOMED CT [id number] / Confirmed Heart disease / SNOMED CT [id number] / Confirmed History of acute myocardial infarction / SNOMED CT 6717225305 / Confirmed Hypertension / SNOMED CT 45171451 / Confirmed Impotence / SNOMED CT 1432168510 / Confirmed Knee replacement / SNOMED CT 541662557 / Confirmed Long-term insulin use / SNOMED CT 3694654710 / Confirmed Osteoarthritis / SNOMED CT 3592816292 / Confirmed Prostate cancer screening / SNOMED CT 701403927 / Confirmed Screening for colon cancer / SNOMED CT 464630518 / Confirmed Plantar fasciitis, left / SNOMED CT 834411760155073 / Confirmed Hypercholesteremia / SNOMED CT 794067945 / Confirmed Testosterone insufficiency / SNOMED CT [id number] / Confirmed DM2 (diabetes mellitus, type 2) / SNOMED CT 887949686 / Confirmed SMOKELESS TOBACCO USE / SNOMED CT 8600221103 / Confirmed, Active Problems (23) CAD IN [place] Chest pain in adult Chronic kidney disease Chronic knee 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 COPD (chronic obstructive pulmonary disease) COPD exacerbation Depression DM2 (diabetes mellitus, type 2) GERD (gastroesophageal reflux disease) Heart disease History of acute myocardial infarction Hypercholesteremia Hypertension Impotence Knee replacement Long-term insulin use Osteoarthritis Plantar fasciitis, left Prostate cancer screening Screening for colon cancer SMOKELESS TOBACCO USE Stage 3b chronic kidney disease Testosterone insufficiency Histories Past Medical History: Active Knee replacement (619031769): Onset on 09/21/2016 at 55 years. Comments: 09/21/2016 EDT 15:43 EDT - Molly Samaniego RN right total knee replacement Hypercholesteremia (238213261) Depression (855034809) GERD (gastroesophageal reflux disease) ([id number]) Osteoarthritis (5456888777) Heart disease ([id number]) Impotence (5503863435) Testosterone insufficiency ([id number]) COPD (chronic obstructive pulmonary disease) ([id number]) Resolved Post-operative infection (34928773): Onset on 2016 at 55 years. Resolved. Comments: 2016 EST 12:52 EST - NAOMI Long Right knee Stress at home (083523854): Resolved. Family History: Heart disease Mother Father Cancer Mother Father Sister Heart disease Brother Procedure history: Cardiovascular stress testing ([id number]) on 08/04/2021 at 60 Years. Comments: 08/17/2022 10:08 Carmen Moon MA (ABR-OE) Impression: 1. EKG portion of Lexiscan stress test is negative for inducible ischemia. 2. Results of nuclear images will be reported separately. 3. Dr. Cisse was available through telephone/telehealth during stress test. IMPRESSION: Mostly fixed perfusion defect most likely due to diaphragmatic attenuation artifact, no significantchange from prior stress; no significant perfusion defect to suggest ischemia LVEF 47-51% Cardiac catheterisation ([id number]) on 07/03/2018 at 57 Years. Comments: 04/30/2020 10:40 Carmen Moon MA (ABR-OE) Heart Catheterization [07/03/2018]: Right coronary: Proximal vessel lesion: 95%stenosis. LVEF 50-55% Placement of stent ([id number]) on 07/03/2018 at 57 Years. Colonoscopy (358163177) in 2012 at 53 Years. Comments: 07/09/2019 11:31 Estefany Jett RN Within normal limits Stent ([id number]) on 12/29/2011 at 51 Years. Comments: 04/30/2020 10:41 Carmen Moon MA (ABR-OE) Coronary Angioplasty/Stent 07/03/2018- 2011- ([facility]) RCA Cholecystectomy ([id number]). Hernia repair (15532038). Comments: 09/09/2016 15:50 ADRIANA Castillo X5 Knee arthropathy ([id number]). Comments: 09/09/2016 15:51 ADRIANA Castillo SCOPE X 3 Foot arthropathy ([id number]). Comments: 09/09/2016 15:52 ADRIANA Castillo RIGHT FOOT REPAIR Elbow injury ([id number]). Comments: 09/09/2016 15:53 ADRIANA Castillo REPAIR Cataract (776522373). Arthroplasty of knee (82645932). Comments: 12/20/2016 7:29 SAGE RODRIGUES RN Right Arthroscopy of knee joint (806212613). Comments: 12/20/2016 7:30 SAGE RODRIGUES RN Right x2 post arthroplasty Manipulation of knee joint under anesthetic (346639305). Social History: Social & Psychosocial Habits Alcohol 4Risk Assessment: Low Risk 11/03/2024 Use: Current Type: Beer Frequency: 1-2 times per year Average drinks per episode in last year: 1 Maximum drinks per episode in last year: 1 Has alcohol use interfered with work or home life: No Do you ever drink more than intended: No Has anyone been hurt or at risk by your drinking: No Ready to change: No Concerns about alcohol use in household: No Employment/School 09/23/2024 Status: Employed Substance Abuse 11/03/2024isk Assessment: Denies Substance Abuse 11/03/2024 Use: Never Tobacco 11/03/2024 Tobacco Use: chew Type: Oral (Snuff, Chew) Number of years: 30 Comment: no smoke exposure - 07/09/2019 11:31 - Estefany Sexton RN 11/03/2024 Tobacco Use: Former smoker, quit more Type: Cigarettes Number of years: 20 Stopped at age: 34 Years Exercise Comment: none - 01/27/2020 15:57 - Everardo Faye SALGADO Home/Environment 11/03/2024 Domestic Concerns Denies Living situation: Home/Independent Primary Doorkeeper: self Lives In Single level home Current Home Treatments Blood Glucose monitoring Special Services and Community Resources None Financial concerns: No Spouse Name Palak Marital Status of Patient if Patient Independent Adult: Nutrition/Health 11/03/2024 Type of diet: Regular Appetite Good Eating Difficulties None Enteral Feedings No TPN Feedings No Skin Breakdown/Decubitus Ulcers No Caffeine intake amount: 4 servings daily coffee and carbonated beverages Physical Examination General: Alert and oriented. Airway: Normal temporomandibular joint mobility, Normal mouth, Normal throat, Normal neck range of motion, Trachea midline. Mallampati classification: II (soft palate, fauces, uvula visible). Head: Normocephalic. Dentition Evaluation: Intact, Own teeth, Denies loose/chipped teeth. Neck: Supple. Respiratory: Lungs are clear to auscultation, Respirations are non-labored. Cardiovascular: Normal rate, Regular rhythm, No murmur. Heart Sounds: Normal. Gastrointestinal: Soft. Musculoskeletal Normal range of motion. Integumentary: Intact, Warm, Dry. Neurologic: Alert, Oriented. Review / Management Results review: Lab results 11/06/2024 5:57 EST TOOTIE in CVOR Ordered (In Progress) 11/06/2024 5:38 EST Platelet Product Ready Platelet Ready for Pickup 11/06/2024 5:33 EST Oral Intake 0 mL Urine Voided 300 mL 11/06/2024 5:31 EST Individuals Taught Patient Learning Readiness Willing to learn Barriers to Learning None evident Teaching Method Explanation Preferred Spoken Language Citizen [place] Preferred Written Language Citizen [place] Anticoag. Med Educated Heparin Reason/Purpose of Anticoagulant Rx or prevent blood clots Anticoagulation Medication Side effects Demonstrates Self Injection N/A Anticoag Med(s) Teaching Evaluation Verbalizes/Nonverbally indicates understanding 11/06/2024 4:55 EST Urinary Elimination Voiding, no difficulties Status N/A Consent Form Signed No CHG Preoperative Wash/Wipe Day of procedure CHG Skin Prep Completed for Eligible Surgery NPO Status Maintained Bed Bath Independent Oral Care Independent Linen Change Done Patient ID Band on and Verified Yes 11/06/2024 3:50 EST Temperature Oral 36.8 DegC Heart Rate Monitored 65 bpm Respiratory Rate 20 br/min Systolic Blood Pressure Non-Invasive 138 mmHg Diastolic Blood Pressure Non-Invasive 60 mmHg Blood Pressure Method Manual Blood Pressure Location Left arm Blood Pressure Cuff Size Medium Reason For Taking VItal Signs Routine Primary Pain Intensity 0 Primary Pain Nonverbal Response Nods No Pain Scale Type 0-10 Pain scale Monitor Alarms On and Limits Checked Nail Bed Color Meckling Capillary Refill < 2 seconds Heart Sounds ICU S1S2 Heart Rhythm Regular Dorsalis Pedis Pulse, Left 2+ Normal Dorsalis Pedis Pulse, Right 2+ Normal Posttibial Pulse, Left 1+ Thready Posttibial Pulse, Right 1+ Thready Radial Pulse, Left 2+ Normal Radial Pulse, Right 2+ Normal Cardiac Rhythm Sinus rhythm Monitoring Lead III, V1/MCL1 [place] Interval 0.15 second(s) QRS Duration 0.09 second(s) QT Interval 0.43 second(s) QTc Interval 0.44 second(s) Secondary ST Segment Measurement [address] Segment Measurement 0.4 mm Alarms On and Functional Yes Heart Rate Alarm Set At - Low 50 Heart Rate Alarm Set At - High 120 Respirations Unlabored Respiratory Pattern Regular Breath Sounds Auscultated Anterior and posterior All Lobes Breath Sounds Clear, Diminished Cough None Oxygen Therapy Room air Oxygen Saturation 97 % Tracheal Position Midline Abdomen Description Non-distended, Soft Abdomen Palpation Non-Tender, Soft Passing Flatus Yes Bowel Continence Continent Swallowing Disorder None Bowel Sounds All Quadrants Present Urinary Elimination Voiding, no difficulties Urine Color Yellow Urine Description Medium amount Facial Movement Makes facial grimaces, Symmetric resting/crying All Extremity Description Meckling, Normal for ethnicity Skin Temperature Warm Temperature All Extremities Warm Skin Description Meckling, Normal for ethnicity Skin Integrity Pressure points intact Skin Turgor Non-Elastic Mucous Membrane Color Meckling Mucous Membrane Description Moist Sensory Perception Sylvester No impairment Moisture Sylvester Rarely moist Activity Sylvester Walks frequently Mobility Sylvester No limitations Nutrition Sylvester Adequate Friction and Shear Sylvester No apparent problem Sylvester Score 22 Hospital Acquired Pressure Injury Risk None/minimal risk (score 19-23) Double lumen catheter Internal jugular Right Arteriovenous Access Activity: Assessed Arteriovenous Access Patency: Patent Arteriovenous Access Dressing Condition: Clean, Dry, Intact Arteriovenous Access Dressing/Activity: CHG gel pad all-in-one dressing, Dialysis Curos Caps Intact[White] Arteriovenous Access Site Condition: No complications Antecubital Left 11/04/2024 18 gauge Peripheral IV Activity: Assessed Peripheral IV Dressing Condition: Clean, Dry, Intact Peripheral IV Dressing Activity: Transparent dressing Peripheral IV Line Status/Patency: 3ml normal saline flush, 10ml normal saline flush, Continuous infusion Peripheral IV Line Care: Secured with tape Peripheral IV Site Condition: No complications Peripheral IV Equipment: IV Pump Neurological Language Able to speak clearly, Follows simple commands Neurological Symptoms Patient denies Gait Steady Extremity Movement Equal Swallowing Difficulty None Characteristics of Communication Appropriate Characteristics of Speech Clear Facial Symmetry Symmetric Level of Consciousness Alert Aspiration Risk None Eye Opening Response Jennifer Spontaneously Best Motor Response [place] Obeys simple commands Best Verbal Response [place] Oriented Jennifer Coma Score 15 OMAR Yes Left Pupil Description Regular, Round Right Pupil Description Regular, Round Left Pupil Reaction Brisk Right Pupil Reaction Brisk Pupil Size, Left 3 mm Pupil Size, Right 3 mm Strength All Extremities Strong Left Upper Extremity Sensation Intact Right Upper Extremity Sensation Intact Left Lower Extremity Sensation Intact Right Lower Extremity Sensation Intact CN VII Facial Expression and Symmetry Facial movement symmetrical CN IX, X Swallowing, Gag Reflex Swallowing present Coats Screen Daily History of Fall in Last 3 Months Coats No Presence of Secondary Diagnosis Coats Yes Use of Ambulatory Aid Coats None, bedrest, wheelchair, nurse IV/PRN Adapter Fall Risk Coats Yes Gait Weak or Impaired Fall Risk Coats Normal, bedrest, immobile Mental Status Fall Risk Coats Oriented to own ability Coats Fall Risk Score 35 Violence Risk Confused No Violence Risk Irritable No Violence Risk Boisterous No Violence Risk Verbal Threats No Violence Risk Physical Threats No Violence Risk Attacking Objects No Violence Risk Predictor Score 0 Violence Risk Intervention None Violence Risk Current Interventions None Affect/Behavior Appropriate, Calm Orientation Oriented x 4 BMAT Existing Patient Condition/Safety No order for Strict Bedrest BMAT Level 1: Sit and Shake Sit, side bed/reach midline/shake hands BMAT Level 2: Stretch and Point Seated position, straighten 1 knee; Flex ankle & point toes BMAT Level 3: Stand Stand up w/o assist/Use of assist device BMAT Level 4: Walk March in place; step forward & back each foot BMAT Mobility Level 4 Orientation Assessment Oriented x 4 Assistive Device None Positioning Repositions self Mobility Assistance Level Independent Activity Status ADL Resting Beds/Devices Hospital bed Activity Assistance Independent NPO Status Maintained Standard Safety ID band on, Allergy Band on, Call device within reach, Bed in low position, Wheels locked, Upper/Half-Length side-rails up, Phone within reach, personal items within reach, Safety level maintained, Hazards removed from floor, Non-Slip footwear, Precautions maintained High Risk Safety Room check performed Demonstrates Correct Call Light Use Yes heparin 12 unit(s)/kg/hr unit(s) Dextrose 5% Premix Diluent Dextrose 5% Premix Diluent mL Appetite Good Eating Difficulties None 11/06/2024 3:16 EST Telemetry Telemetry 11/06/2024 2:27 EST WBC 5.9 10^3/mcL RBC 4.02 10^6/mcL LOW Hgb 11.0 G/dL LOW Hct 32.3 % LOW MCV 80.4 fL LOW MCH 27.4 pg MCHC 34.1 G/dL RDW 13.6 % Platelet 185 10^3/mcL MPV 7.3 fL Neutrophil % 63.5 % Lymphocyte % 24.6 % Monocyte % 8.2 % Eosinophil % 2.8 % Basophil % 0.9 % Neutrophil, Absolute 3.7 10^3/mcL Lymphocyte, Absolute 1.4 10^3/mcL Monocyte, Absolute 0.5 10^3/mcL Eosinophil, Absolute 0.2 10^3/mcL Basophil, Absolute 0.1 10^3/mcL APTT 54.5 seconds HI Glucose Level 211 mg/dL HI Glucose Level 211 mg/dL HI Sodium Level 137 mEq/L Sodium Level 137 mEq/L Potassium Level 4.1 mEq/L Potassium Level 4.1 mEq/L Chloride 104 mEq/L Chloride 104 mEq/L CO2 26 mEq/L CO2 26 mEq/L Electrolyte Balance 7.0 mEq/L Electrolyte Balance 7.0 mEq/L BUN 53.0 mg/dL HI BUN 53.0 mg/dL HI Creatinine Lvl (s) 4.70 mg/dL HI Creatinine Lvl (s) 4.70 mg/dL HI BUN/Creatinine Ratio 11.3 ratio BUN/Creatinine Ratio 11.3 ratio Calcium Lvl 8.7 mg/dL Calcium Lvl 8.7 mg/dL Magnesium Lvl 2.4 mg/dL Phosphorus 4.4 mg/dL Albumin Level 2.6 G/dL LOW GFR Non- 13 ml/min/1.73sqm NA GFR 15 ml/min/1.73sqm NA Creatinine Clearance Calc 14.65 mL/min Creatinine Clearance Calc 14.65 mL/min 11/05/2024 23:24 EST Telemetry Telemetry 11/05/2024 23:11 EST Telemetry Telemetry 11/05/2024 23:06 EST Telemetry Telemetry 11/05/2024 22:33 EST Surgical Site Infection Prevention SSI FAQ provided 11/05/2024 22:31 EST Urinary Elimination Voiding, no difficulties Status N/A IV Present Present Double lumen catheter Internal jugular Right Arteriovenous Access Activity: Assessed Arteriovenous Access Patency: Patent Arteriovenous Access Dressing Condition: Clean, Dry, Intact Arteriovenous Access Dressing/Activity: CHG gel pad all-in-one dressing, Dialysis Curos Caps Intact[White] Arteriovenous Access Site Condition: No complications Antecubital Left 11/04/2024 18 gauge Peripheral IV Activity: Assessed Peripheral IV Dressing Condition: Clean, Dry, Intact Peripheral IV Dressing Activity: Transparent dressing Peripheral IV Line Status/Patency: Continuous infusion Peripheral IV Line Care: Secured with tape Peripheral IV Site Condition: No complications Peripheral IV Equipment: IV Pump Consent Form Signed Yes CHG Preoperative Wash/Wipe Night before procedure CHG Skin Prep Completed for Eligible Surgery NPO Status Initiated NPO Since 11/27/2023 0:16 Bed Bath Independent Linen Change Done Patient ID Band on and Verified Yes 11/05/2024 22:26 EST Temperature Oral 36.6 DegC Heart Rate Monitored 72 bpm Respiratory Rate 19 br/min Systolic Blood Pressure Non-Invasive 162 mmHg HI Diastolic Blood Pressure Non-Invasive 66 mmHg Mean Arterial Pressure (NBP) 102 mmHg Blood Pressure Method Automatic Blood Pressure Location Left arm Blood Pressure Cuff Size Medium Reason For Taking VItal Signs Routine Primary Pain Intensity 0 Primary Pain Nonverbal Response Nods No Pain Scale Type 0-10 Pain scale Monitor Alarms On and Limits Checked (Modified) Nail Bed Color Meckling Capillary Refill < 2 seconds Heart Sounds ICU S1S2 Heart Rhythm Regular Dorsalis Pedis Pulse, Left 2+ Normal Dorsalis Pedis Pulse, Right 2+ Normal Radial Pulse, Left 2+ Normal Radial Pulse, Right 2+ Normal Cardiac Rhythm Sinus rhythm Monitoring Lead III, V1/MCL1 [place] Interval 0.15 second(s) QRS Duration 0.15 second(s) QT Interval 0.43 second(s) QTc Interval 0.45 second(s) Secondary ST Segment Measurement -0.[address] Segment Measurement 0.3 mm Alarms On and Functional Yes Heart Rate Alarm Set At - Low 50 Heart Rate Alarm Set At - High 120 Respirations Unlabored Respiratory Pattern Regular Breath Sounds Auscultated Anterior and posterior All Lobes Breath Sounds Clear, Diminished Cough None Oxygen Therapy Room air Oxygen Saturation 99 % Tracheal Position Midline Abdomen Description Non-distended Abdomen Palpation Non-Tender Passing Flatus Yes Bowel Continence Continent Swallowing Disorder None Bowel Sounds All Quadrants Present Urinary Elimination Voiding, no difficulties Skin Temperature Warm Skin Description Meckling, Dry Skin Integrity Pressure points intact Skin Turgor Non-Elastic Mucous Membrane Color Meckling Mucous Membrane Description Moist Neurological Symptoms Patient denies Level of Consciousness Alert Eye Opening Response Jennifer Spontaneously OMAR Yes Strength All Extremities Strong Assistive Device None Positioning Repositions self Mobility Assistance Level Independent Up to Chair Returned to bed Activity Status ADL Awake Beds/Devices Hospital bed Activity Assistance Independent Standard Safety ID band on, Allergy Band on, Call device within reach, Bed in low position, Wheels locked, Upper/Half-Length side-rails up, Phone within reach, personal items within reach, Safety level maintained, Hazards removed from floor, Non-Slip footwear, Precautions maintained High Risk Safety Room check performed Demonstrates Correct Call Light Use Yes heparin 12 unit(s)/kg/hr unit(s) Dextrose 5% Premix Diluent Dextrose 5% Premix Diluent mL Appetite Good 11/05/2024 22:25 EST atorvastatin 40 mg mg mupirocin topical 1 willi willi 11/05/2024 22:18 EST chlorhexidine topical 15 mL mL 11/05/2024 22:00 EST insulin lispro Not Done: Below Sliding Scale (Not Done) 11/05/2024 21:40 EST Oral Intake 500 mL Urine Voided 720 mL 11/05/2024 21:35 EST Individuals Taught Patient Learning Readiness Willing to learn Barriers to Learning None evident Teaching Method Explanation Preferred Spoken Language Citizen Of [place] Preferred Written Language Citizen [place] Anticoag. Med Educated Heparin Reason/Purpose of Anticoagulant Rx or prevent blood clots Anticoagulation Medication Side effects Demonstrates Self Injection N/A Anticoag Med(s) Teaching Evaluation Verbalizes/Nonverbally indicates understanding 11/05/2024 21:34 EST Cardiac Rehab Session Held No Post Rehab Outcome Continue same step Cardiac Rehab - Phase I Cardiac Rehab - Phase I 11/05/2024 21:33 EST Post Rehab Outcome Not Done: Previous shift/nurse (Not Done) CAM Mental Status Change & Fluctuation Not Done: Previous shift/nurse (Not Done) CAM Inattention Not Done: Previous shift/nurse (Not Done) CAM Disorganized Thinking Not Done: Previous shift/nurse (Not Done) CAM Altered Level of Consciousness Not Done: Previous shift/nurse (Not Done) Confusion Assessment Method Score Not Done: Previous shift/nurse (Not Done) Cardiac Rehab - Phase I Not Done (Not Done) 11/05/2024 21:27 EST CHG Preoperative Wash/Wipe Night before procedure, Site specific wipe Bed Bath Independent, Supervision, Setup Linen Change Done 11/05/2024 21:26 EST Blood Glucose Testing Reason Routine Stated Blood Glucose 128 11/05/2024 20:21 EST Heart Rate Monitored 69 bpm Reason For Taking VItal Signs Routine Primary Pain Intensity 0 Primary Pain Nonverbal Response Nods No Pain Scale Type 0-10 Pain scale Monitor Alarms On and Limits Checked Nail Bed Color Meckling Capillary Refill < 2 seconds Heart Sounds ICU S1S2 Heart Rhythm Regular Dorsalis Pedis Pulse, Left 2+ Normal Dorsalis Pedis Pulse, Right 2+ Normal Posttibial Pulse, Left 1+ Thready Posttibial Pulse, Right 1+ Thready Radial Pulse, Left 2+ Normal Radial Pulse, Right 2+ Normal Cardiac Rhythm Sinus rhythm Monitoring Lead III, V1/MCL1 AZ Interval 0.14 second(s) QRS Duration 0.07 second(s) QT Interval 0.37 second(s) QTc Interval 0.39 second(s) ST Segment Measurement 1.[address] Segment Measurement -0.[address] Segment Measurement 1.[address] Segment Measurement -0.1 mm Alarms On and Functional Yes Heart Rate Alarm Set At - Low 50 Heart Rate Alarm Set At - High 120 Respirations Unlabored Respiratory Pattern Regular Breath Sounds Auscultated Anterior and posterior All Lobes Breath Sounds Clear, Diminished Cough None Oxygen Therapy Room air Tracheal Position Midline Abdomen Description Non-distended, Soft Abdomen Palpation Non-Tender, Soft Passing Flatus Yes Bowel Continence Continent Swallowing Disorder None Bowel Sounds All Quadrants Present Urinary Elimination Voiding, no difficulties Urine Color Yellow Urine Description Medium amount Facial Movement Makes facial grimaces, Symmetric resting/crying All Extremity Description Meckling, Normal for ethnicity Skin Temperature Warm Temperature All Extremities Warm Skin Description Meckling, Normal for ethnicity Skin Integrity Pressure points intact Skin Turgor Non-Elastic Mucous Membrane Color Meckling Mucous Membrane Description Moist Sensory Perception Sylvester No impairment Moisture Sylvester Rarely moist Activity Sylvester Walks frequently Mobility Sylvester No limitations Nutrition Sylvester Adequate Friction and Shear Sylvester No apparent problem Sylvester Score 22 Hospital Acquired Pressure Injury Risk None/minimal risk (score 19-23) Double lumen catheter Internal jugular Right Arteriovenous Access Activity: Assessed Arteriovenous Access Patency: Patent Arteriovenous Access Dressing Condition: Clean, Dry, Intact Arteriovenous Access Dressing/Activity: CHG gel pad all-in-one dressing, Dialysis Curos Caps Intact[White], Dialysis Curos Caps Changed [White] Arteriovenous Access Site Condition: No complications Antecubital Left 11/04/2024 18 gauge Peripheral IV Activity: Assessed Peripheral IV Dressing Condition: Clean, Dry, Intact Peripheral IV Dressing Activity: Transparent dressing Peripheral IV Line Status/Patency: Continuous infusion Peripheral IV Line Care: Secured with tape Peripheral IV Site Condition: No complications Peripheral IV Equipment: IV Pump Radial Artery Right Vascular Access Site Condition: No complications Vascular Access Distal Pulses: Palpable Vascular Access Dressing Activity: Bandaid dressing Vascular Access Dressing Condition: Clean, Dry, Intact Neurological Language Able to speak clearly, Follows simple commands Neurological Symptoms Patient denies Gait Steady Extremity Movement Equal Swallowing Difficulty None Characteristics of Communication Appropriate Characteristics of Speech Clear Facial Symmetry Symmetric Level of Consciousness Alert Aspiration Risk None Eye Opening Response Jennifer Spontaneously Best Motor Response Jennifer Obeys simple commands Best Verbal Response [place] Oriented [place] Coma Score 15 OMAR Yes Left Pupil Description Regular, Round Right Pupil Description Regular, Round Left Pupil Reaction Brisk Right Pupil Reaction Brisk Pupil Size, Left 3 mm Pupil Size, Right 3 mm Strength All Extremities Strong Left Upper Extremity Sensation Intact Right Upper Extremity Sensation Intact Left Lower Extremity Sensation Intact Right Lower Extremity Sensation Intact CN VII Facial Expression and Symmetry Facial movement symmetrical CN IX, X Swallowing, Gag Reflex Swallowing present Coats Screen Daily History of Fall in Last 3 Months Coats No Presence of Secondary Diagnosis Coats Yes Use of Ambulatory Aid Coats None, bedrest, wheelchair, nurse IV/PRN Adapter Fall Risk Coats Yes Gait Weak or Impaired Fall Risk Coats Normal, bedrest, immobile Mental Status Fall Risk Coats Oriented to own ability Coats Fall Risk Score 35 Violence Risk Confused No Violence Risk Irritable No Violence Risk Boisterous No Violence Risk Verbal Threats No Violence Risk Physical Threats No Violence Risk Attacking Objects No Violence Risk Predictor Score 0 Violence Risk Intervention None Violence Risk Current Interventions None Affect/Behavior Appropriate, Calm Orientation Oriented x 4 BMAT Existing Patient Condition/Safety No order for Strict Bedrest BMAT Level 1: Sit and Shake Sit, side bed/reach midline/shake hands BMAT Level 2: Stretch and Point Seated position, straighten 1 knee; Flex ankle & point toes BMAT Level 3: Stand Stand up w/o assist/Use of assist device BMAT Level 4: Walk March in place; step forward & back each foot BMAT Mobility Level 4 Orientation Assessment Oriented x 4 Assistive Device None Positioning Repositions self Up to Chair Remains up in chair Activity Status ADL Awake, Watching TV Beds/Devices Hospital bed Activity Assistance Independent Standard Safety ID band on, Allergy Band on, Call device within reach, Bed in low position, Wheels locked, Upper/Half-Length side-rails up, Phone within reach, personal items within reach High Risk Safety Room check performed Demonstrates Correct Call Light Use Yes heparin 12 unit(s)/kg/hr unit(s) Dextrose 5% Premix Diluent Dextrose 5% Premix Diluent mL Appetite Good Eating Difficulties None 11/05/2024 19:52 EST Temperature Oral 36.4 DegC Heart Rate Monitored 77 bpm Respiratory Rate 16 br/min Systolic Blood Pressure Non-Invasive 142 mmHg HI Diastolic Blood Pressure Non-Invasive 80 mmHg Blood Pressure Method Manual Blood Pressure Location Left arm Blood Pressure Cuff Size Medium Reason For Taking VItal Signs Routine Oxygen Therapy Room air Oxygen Saturation 97 % Assistive Device None Positioning Repositions self Up to Chair Remains up in chair Activity Status ADL Awake, Watching TV Activity Assistance Independent Standard Safety ID band on, Allergy Band on, Call device within reach, Bed in low position, Wheels locked, Upper/Half-Length side-rails up, Phone within reach, personal items within reach High Risk Safety Room check performed Demonstrates Correct Call Light Use Yes 11/05/2024 19:42 EST APTT 54.4 seconds HI 11/05/2024 18:11 EST Notify date/time 11/05/2024 18:11 Provider Notified LAUREEN BIRD MD Notification Method Answering service Information Communicated Consult Details Communicated consult for l carotid 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 tomorrow Person Reporting Result(s) arline Heart Rate Monitored 72 bpm 11/05/2024 17:00 EST insulin lispro Not Done: Below Sliding Scale (Not Done) 11/05/2024 16:46 EST Stated Blood Glucose 149 Heart Rate Monitored 81 bpm Systolic Blood Pressure Non-Invasive 157 mmHg HI Diastolic Blood Pressure Non-Invasive 88 mmHg Mean Arterial Pressure (NBP) 111 mmHg 11/05/2024 16:18 EST Patient Information Note hd tx completed Admission Weight 96.6 kg Weight Lbs 212.5 lb Temperature Skin 36.4 DegC Heart Rate Monitored 72 bpm Respiratory Rate 17 br/min Systolic Blood Pressure Non-Invasive 189 mmHg HI Diastolic Blood Pressure Non-Invasive 93 mmHg HI Reason For Taking VItal Signs Procedure post-care Primary Pain Intensity 0 Pain Scale Type 0-10 Pain scale Heart Rhythm Regular Cardiac Rhythm Sinus rhythm Monitoring Lead II Alarms On and Functional Yes Respirations Unlabored Respiratory Pattern Regular Double lumen catheter Internal jugular Right Arteriovenous Access Activity: Accessed Arteriovenous Access Patency: Patent Arteriovenous Access Dressing Condition: Clean, Dry, Intact Arteriovenous Access Dressing/Activity: CHG gel pad all-in-one dressing, Dialysis Curos Caps Changed [White], Dialysis Tegos Caps Intact Arteriovenous Access Site Condition: No complications Level of Consciousness Alert Affect/Behavior Appropriate, Calm, Cooperative Orientation Oriented x 4 Accompanied By Staff Monitor, Nurse, Transporter Intrahospital Transfer Mode Bed Nurse Giving Report ADRIANA Hunt Nurse Receiving Report ADRIANA Long[place] (Modified) Date/Time Nurse Received Report 11/05/2024 16:21 Transfer to CCU Patient ID Band on and Verified Yes 11/05/2024 16:17 EST Dialysis Treatment Complete 11/05/2024 15:59 Dialysis Tmt Ultrafiltation Removed 1,000 mL Dialysis Treatment Blood Returned Yes Dialysis Tmt Dialyzer Cleared Good Double Lumen Saline Flush-Arterial 10 mL Double Lumen Saline Flush-Venous 10 mL Caps Intact Yes 11/05/2024 15:58 EST Dialysis w/Catheter Charge Complete Dialysis Hemo Acute Charge Complete 11/05/2024 15:32 EST Progress Note Cardiology Progress Note 11/05/2024 15:31 EST Patient Information Note Patient resting VSS Heart Rate Monitored 68 bpm Systolic Blood Pressure Non-Invasive 142 mmHg HI Diastolic Blood Pressure Non-Invasive 85 mmHg Dialysis Treatment Dialysate Flow Rate 600 mL/min Dialysis Treatment Blood Flow Rate 200 mL/min Dialysis Treatment Arterial Pressure -120 mm Hg Dialysis Treatment Venous Pressure 60 mm Hg Dialysis Tx Transmembrane Pressure 70 Dialysis Treatment Volume Removed 1,144 mL Dialysis Treatment Ultrafiltration Rate 750 mL/hr Dialysis Treatment Transducer Dry Yes Dialysis Treatment Access Visible Yes Dialysis Treatment Safety Check Done 11/05/2024 15:02 EST Patient Information Note vss Heart Rate Monitored 70 bpm Systolic Blood Pressure Non-Invasive 152 mmHg HI Diastolic Blood Pressure Non-Invasive 84 mmHg Dialysis Treatment Dialysate Flow Rate 600 mL/min Dialysis Treatment Blood Flow Rate 200 mL/min Dialysis Treatment Arterial Pressure -120 mm Hg Dialysis Treatment Venous Pressure 50 mm Hg Dialysis Tx Transmembrane Pressure 70 Dialysis Treatment Volume Removed 781 mL Dialysis Treatment Ultrafiltration Rate 750 mL/hr Dialysis Treatment Transducer Dry Yes Dialysis Treatment Access Visible Yes Dialysis Treatment Safety Check Done 11/05/2024 15:00 EST Hemodialysis 1,000 mL 11/05/2024 14:34 EST Patient Information Note vss Heart Rate Monitored 69 bpm Systolic Blood Pressure Non-Invasive 158 mmHg HI Diastolic Blood Pressure Non-Invasive 86 mmHg Dialysis Treatment Dialysate Flow Rate 600 mL/min Dialysis Treatment Blood Flow Rate 200 mL/min Dialysis Treatment Arterial Pressure -110 mm Hg Dialysis Treatment Venous Pressure 50 mm Hg Dialysis Tx Transmembrane Pressure 70 Dialysis Treatment Volume Removed 432 mL Dialysis Treatment Ultrafiltration Rate 750 mL/hr Dialysis Treatment Transducer Dry Yes Dialysis Treatment Access Visible Yes Dialysis Treatment Safety Check Done 11/05/2024 13:59 EST Patient Information Note hd tx initated Heart Rate Monitored 79 bpm Systolic Blood Pressure Non-Invasive 175 mmHg HI Diastolic Blood Pressure Non-Invasive 85 mmHg Dialysis Treatment Type Hemodialysis Dialysis Treatment Dialyzer F 160 Dialysis Treatment Dialysate 3K+, Ca++ 2.5 Dialysis Treatment Duration 2 hour(s) Dialysis Treatment UF Goal Set 1500 Dialysis Treatment Sodium Setting 138 Dialysis Treatment Bicarb Setting 37 Dialysis Treatment Machine Temp 36.5 DegCelcius Dialysis Treatment Transconductivity 13.8 Dialysis Treatment Parameters 13.3/14.3 Dialysis Treatment Heparin No Dialysis Treatment Dialysate Flow Rate 600 mL/min Dialysis Treatment Blood Flow Rate 200 mL/min Dialysis Treatment Arterial Pressure -100 mm Hg Dialysis Treatment Venous Pressure 40 mm Hg Dialysis Tx Transmembrane Pressure 70 Dialysis Treatment Volume Removed 0 mL Dialysis Treatment Ultrafiltration Rate 750 mL/hr Dialysis Treatment Crit_Line Initiated No Dialysis Treatment Heparin Flush 0 Dialysis Treatment Transducer Dry Yes Dialysis Treatment Access Visible Yes Dialysis Treatment Safety Check Done 11/05/2024 13:55 EST Admission Weight 97.7 kg Weight Lbs 214.9 lb Temperature Skin 36.6 DegC Heart Rate Monitored 75 bpm Respiratory Rate 17 br/min Systolic Blood Pressure Non-Invasive 191 mmHg HI Diastolic Blood Pressure Non-Invasive 91 mmHg HI Reason For Taking VItal Signs Procedure pre-care Primary Pain Intensity 0 Pain Scale Type 0-10 Pain scale Heart Rhythm Regular Cardiac Rhythm Sinus rhythm Monitoring Lead II Alarms On and Functional Yes Respirations Unlabored Respiratory Pattern Regular Oxygen Therapy Room air Dialysis Treatment Number A-1 Dialysis Machine Number [id number] Dialysis Alarm Test Done Dialysis Pressure Holding Test Done Dialysis Conductivity Machine 13.9 Dialysis Conductivity Meter 13.98 Dialysis Machine pH 7.19 Ordered Ultrafiltration 1000 Dialysis Rinse 500 Dialysis Total Ultrafiltration 1,500 Dialysis Patient Diabetic Yes Dialysis Transcribed Hepatitis Result AG negative Dialysis Hepatitis Date 11/05/2024 Double lumen catheter Internal jugular Right Arteriovenous Access Activity: Accessed Arteriovenous Access Patency: Patent Arteriovenous Access Dressing Condition: Clean, Dry, Intact Arteriovenous Access Dressing/Activity: CHG gel pad all-in-one dressing, Dialysis Curos Caps Intact[White], Dialysis Tegos Caps Intact Arteriovenous Access Site Condition: No complications Level of Consciousness Alert Affect/Behavior Appropriate, Calm, Cooperative Orientation Oriented x 4 Standard Safety ID band on, Allergy Band on, Call device within reach, Bed in low position, Wheels locked, Upper/Half-Length side-rails up, Safety level maintained High Risk Safety Room located near nursing station Demonstrates Correct Call Light Use Yes 11/05/2024 13:47 EST Out of Room Sent to Current Location Dialysis Transport via Bed 11/05/2024 13:46 EST insulin lispro 2 unit(s) unit(s) 11/05/2024 13:09 EST ABO/Rh Interp A POS ABSC Interp (Gel) Negative ABSC Crossmatch, Immediate Spin Compatible Crossmatch, Immediate Spin Compatible 11/05/2024 13:01 EST Blood Glucose Testing Reason Routine Stated Blood Glucose 187 (Modified) Time of Stated Blood Glucose 11/05/2024 13:02 11/05/2024 12:35 EST IR Temporary Dialysis Catheter IR TEMPORARY DIALYSIS CATHETER 11/05/2024 12:34 EST Nurse Giving Report Contact Number ADRIANA [place] Nurse Receiving Report ADRIANA Pizano Date/Time Nurse Received Report 11/05/2024 12:34 Nursing Unit CCU 11/05/2024 12:30 EST Heart Rate Monitored 74 bpm Respiratory Rate 18 br/min Systolic Blood Pressure Non-Invasive 159 mmHg HI Diastolic Blood Pressure Non-Invasive 68 mmHg Heart Rhythm Regular Cardiac Rhythm Sinus rhythm Monitoring Lead II Alarms On and Functional Yes Oxygen Therapy Room air Oxygen Saturation 98 % 11/05/2024 12:28 EST Procedure Note Temporary HD Catheter 11/05/2024 12:22 EST IR Procedure Record IR Procedure Record (Modified) 11/05/2024 12:18 EST Double lumen catheter Internal jugular Right Arteriovenous Access Activity: Assessed Arteriovenous Access Dressing Condition: Clean, Dry, Intact Arteriovenous Access Dressing/Activity: CHG gel pad all-in-one dressing Arteriovenous Access Site Condition: No complications 11/05/2024 12:15 EST Heart Rate Monitored 83 bpm Respiratory Rate 18 br/min Systolic Blood Pressure Non-Invasive 189 mmHg HI Diastolic Blood Pressure Non-Invasive 76 mmHg Heart Rhythm Regular Cardiac Rhythm Sinus rhythm Monitoring Lead II Alarms On and Functional Yes Oxygen Therapy Room air Oxygen Saturation 98 % 11/05/2024 12:00 EST SN - Proc - Anesthesia Type Local SN - Proc - EBL 3 mL SN - Proc - Actual Procedure Temp cath 11/05/2024 12:00 EST SN - GCD - ASA Class None SN - GCD - Post-operative Diagnosis temp dialysis line insertion SN - GCD - Case Level IR Level 2 11/05/2024 12:00 EST Heart Rate Monitored 75 bpm Respiratory Rate 18 br/min Systolic Blood Pressure Non-Invasive 201 mmHg HI Diastolic Blood Pressure Non-Invasive 79 mmHg Primary Pain Intensity 0 Pain Scale Type 0-10 Pain scale Heart Rhythm Regular Cardiac Rhythm Sinus rhythm Monitoring Lead II Alarms On and Functional Yes Heart Rate Alarm Set At - Low 50 Heart Rate Alarm Set At - High 120 Oxygen Therapy Room air Oxygen Saturation 98 % Antecubital Left 11/04/2024 18 gauge Peripheral IV Activity: Assessed Level of Consciousness Alert Consent Form Signed Yes Standard Safety ID band on, Allergy Band on, Safety level maintained 11/05/2024 11:59 EST SN - PP - Body Position OP Supine 11/05/2024 11:59 EST SN - SP - Prep Agents Chloraprep SN - SP - HR - Method N/A 11/05/2024 11:55 EST SN - CAt - Case Attendee SN - CAt - Case Attendee SN - CAt - Case Attendee SN - CAt - Case Attendee SN - CAt - Case Attendee SN - CAt - Case Attendee SN - CAt - Case Attendee SN - CAt - Case Attendee SN - CAt - Role Performed Primary Surgeon SN - CAt - Role Performed Physician Director [employer] SN - CAt - Role Performed Scrub Technologist SN - CAt - Role Performed Procedure Nurse 11/05/2024 11:55 EST Discharge To, Anticipated Home independently Anticipated Discharge Date 11/08/2024 Transition Planning Note Transition Planning Ongoing Assessment 11/05/2024 11:42 EST RBC Product Ready RBC Ready for Pickup 11/05/2024 11:18 EST US Renal US RENAL 11/05/2024 10:41 EST Echocardiogram, Adult - CV Signed 11/05/2024 10:33 EST APTT 46.3 seconds HI 11/05/2024 10:14 EST heparin Begin Bag 2.5 mL unit(s) Dextrose 5% Premix Diluent Begin Bag 250 mL mL 11/05/2024 8:48 EST VL Carotid US/Doppler Complete - CV Signed 11/05/2024 8:41 EST amLODIPine 5 mg mg aspirin 81 mg mg escitalopram 5 mg mg ezetimibe 10 mg mg mupirocin topical 1 willi willi 11/05/2024 8:13 EST Nephrology Progress Note Progress Note 11/05/2024 8:00 EST Heart Rate Monitored 74 bpm Respiratory Rate 18 br/min Signs/Symptoms Transfusion Reaction No Inspected Blood Donor Unit Appearance Done Primary Pain Intensity 0 Pain Scale Type 0-10 Pain scale Monitor Alarms On and Limits Checked Nail Bed Color Meckling Capillary Refill < 2 seconds Heart Sounds ICU S1S2 Heart Rhythm Regular Dorsalis Pedis Pulse, Left 1+ Thready Dorsalis Pedis Pulse, Right 1+ Thready Posttibial Pulse, Left 1+ Thready Posttibial Pulse, Right 1+ Thready Radial Pulse, Left 2+ Normal Radial Pulse, Right 2+ Normal Ankle edema Right Edema Ratin+ trace/2mm Cardiac Rhythm Sinus rhythm Monitoring Lead III, V1/MCL1, V3/MCL3 [place] Interval 0.16 second(s) QRS Duration 0.10 second(s) QT Interval 0.40 second(s) QTc Interval 0.44 second(s) Alarms On and Functional Yes Heart Rate Alarm Set At - Low 50 Heart Rate Alarm Set At - High 120 Respirations Unlabored Respiratory Pattern Regular Breath Sounds Auscultated Anterior and posterior All Lobes Breath Sounds Clear, Diminished Oxygen Therapy Room air Oxygen Saturation 94 % Tracheal Position Midline Abdomen Description Non-distended Abdomen Palpation Non-Tender Bowel Continence No bowel movement Bowel Sounds All Quadrants Present Urinary Elimination Voiding, no difficulties Urine Color Yellow Urine Description Medium amount Facial Movement Symmetric resting/crying All Extremity Description Meckling, Normal for ethnicity Skin Temperature Warm Temperature All Extremities Warm Skin Description Meckling, Normal for ethnicity Skin Integrity Intact Skin Turgor Elastic Mucous Membrane Color Meckling Mucous Membrane Description Moist Sensory Perception Sylvester No impairment Moisture Sylvester Rarely moist Activity Sylvester Walks frequently Mobility Sylvester No limitations Nutrition Sylvester Adequate Friction and Shear Sylvester No apparent problem Sylvester Score 22 Hospital Acquired Pressure Injury Risk None/minimal risk (score 19-23) Antecubital Left 11/04/2024 18 gauge Peripheral IV Activity: Assessed Peripheral IV Dressing Condition: Clean, Dry, Intact Peripheral IV Dressing Activity: Transparent dressing Peripheral IV Line Status/Patency: Continuous infusion Peripheral IV Line Care: Secured with tape Peripheral IV Site Condition: No complications Peripheral IV Equipment: IV Pump Neurological Language Able to speak clearly, Follows simple commands Neurological Symptoms Patient denies Swallowing Difficulty None Characteristics of Communication Appropriate Characteristics of Speech Clear Facial Symmetry Symmetric Level of Consciousness Alert Aspiration Risk None Eye Opening Response Jennifer Spontaneously Best Motor Response Jennifer Obeys simple commands Best Verbal Response [place] Oriented [place] Coma Score 15 OMAR Yes Left Pupil Description Regular Right Pupil Description Regular Left Pupil Reaction Brisk Right Pupil Reaction Brisk Pupil Size, Left 4 mm Pupil Size, Right 4 mm Strength All Extremities Strong Left Upper Extremity Sensation Intact Right Upper Extremity Sensation Intact Left Lower Extremity Sensation Intact Right Lower Extremity Sensation Intact Coats Screen Daily History of Fall in Last 3 Months Coats No Presence of Secondary Diagnosis Coats Yes Use of Ambulatory Aid Coats None, bedrest, wheelchair, nurse IV/PRN Adapter Fall Risk Coats Yes Gait Weak or Impaired Fall Risk Coats Normal, bedrest, immobile Mental Status Fall Risk Coats Oriented to own ability Coats Fall Risk Score 35 Affect/Behavior Appropriate, Calm, Cooperative Orientation Oriented x 4 Orientation Assessment Oriented x 4 Assistive Device None Positioning Repositions self Mobility Assistance Level Independent Activity Status ADL Lights dimmed Beds/Devices Hospital bed Activity Assistance Independent Standard Safety ID band on, Allergy Band on, Call device within reach, Bed in low position, Wheels locked, Upper/Half-Length side-rails up, Phone within reach, personal items within reach, Assistive devices within reach, Toileting device within reach, Bedside Cart Locked High Risk Safety Door open Demonstrates Correct Call Light Use Yes heparin 12 unit(s)/kg/hr unit(s) insulin lispro Not Done: Below Sliding Scale (Not Done) Dextrose 5% Premix Diluent Dextrose 5% Premix Diluent mL 11/05/2024 7:51 EST Blood Glucose Testing Reason Routine Stated Blood Glucose 103 Time of Stated Blood Glucose 11/05/2024 7:51 11/05/2024 6:31 EST Oral Intake 0 mL Urine Voided 600 mL 11/05/2024 6:29 EST Eosinophil Spec Type Urine Eos Smear 0 UA Specimen Type Clean Catch UA Color Yellow UA Appear Clear UA Spec Grav 1.015 UA Glucose 100 mg/dL UA Bili Negative UA Ketones Negative mg/dL UA Blood Trace UA pH 6.0 UA Protein 300 mg/dL UA Urobilinogen 0.2 E.U./dL UA Nitrite Negative UA Leuk Est Negative UA RBC Rare /HPF UA WBC Rare /HPF UA Squam Epithelial 0-2 /HPF 11/05/2024 6:25 EST pantoprazole 40 mg mg potassium chloride 20 mEq mEq 11/05/2024 5:05 EST Individuals Taught Patient Learning Readiness Willing to learn Barriers to Learning None evident Teaching Method Explanation Preferred Spoken Language Citizen Of [place] Preferred Written Language Citizen Of [place] Anticoag. Med Educated Heparin Reason/Purpose of Anticoagulant Rx of pulmonary embolism Anticoagulation Medication Side effects Demonstrates Self Injection N/A Anticoag Med(s) Teaching Evaluation Verbalizes/Nonverbally indicates understanding 11/05/2024 4:49 EST heparin 12 unit(s)/kg/hr unit(s) Dextrose 5% Premix Diluent Dextrose 5% Premix Diluent mL 11/05/2024 3:42 EST WBC 6.4 10^3/mcL RBC 4.17 10^6/mcL LOW Hgb 11.6 G/dL LOW Hct 33.3 % LOW MCV 79.8 fL LOW MCH 27.8 pg MCHC 34.9 G/dL RDW 13.3 % Platelet 207 10^3/mcL MPV 7.2 fL Neutrophil % 67.5 % Lymphocyte % 22.2 % Monocyte % 6.4 % Eosinophil % 2.9 % Basophil % 1.0 % Neutrophil, Absolute 4.3 10^3/mcL Lymphocyte, Absolute 1.4 10^3/mcL Monocyte, Absolute 0.4 10^3/mcL Eosinophil, Absolute 0.2 10^3/mcL Basophil, Absolute 0.1 10^3/mcL APTT 44.1 seconds HI Glucose Level 90 mg/dL Glucose Level 90 mg/dL Sodium Level 139 mEq/L Sodium Level 139 mEq/L Potassium Level 3.8 mEq/L Potassium Level 3.8 mEq/L Chloride 110 mEq/L Chloride 110 mEq/L CO2 26 mEq/L CO2 26 mEq/L Electrolyte Balance 3.0 mEq/L LOW Electrolyte Balance 3.0 mEq/L LOW BUN 71.0 mg/dL HI BUN 71.0 mg/dL HI Creatinine Lvl (s) 5.52 mg/dL HI Creatinine Lvl (s) 5.52 mg/dL HI BUN/Creatinine Ratio 12.9 ratio BUN/Creatinine Ratio 12.9 ratio Calcium Lvl 9.1 mg/dL Calcium Lvl 9.1 mg/dL Magnesium Lvl 2.5 mg/dL HI Phosphorus 4.7 mg/dL Uric Acid Lvl 9.9 mg/dL HI Total Protein 5.7 G/dL Albumin Level 2.8 G/dL LOW Albumin Level 2.8 G/dL LOW Globulin 2.9 G/dL A/G Ratio 1.0 ratio Bili Total 0.20 mg/dL Bili Direct <0.1 mg/dL Bili Indirect Unable to Calculate mg/dL Alk Phos 70 U/L AST/SGOT 22 U/L ALT/SGPT 16 U/L GFR Non- 10 ml/min/1.73sqm NA GFR 13 ml/min/1.73sqm NA IFES Interpretation IFES Interpretation PTH, Intact 201.1 pg/mL HI Hep A IgM Ab Non-Reactive Hep A IgM Ab Int Hep A IgM Ab Int Hep B Core IgM Ab Non-Reactive Hep B Core IgM Ab Int Hep B Core IgM Ab Int Hep B Surf Ag Non-Reactive Hep C Ab Non-Reactive Hep C Ab Int Hep C Ab Int Creatinine Clearance Calc 12.48 mL/min Creatinine Clearance Calc 12.48 mL/min 11/05/2024 3:12 EST Temperature Oral 36.5 DegC Heart Rate Monitored 71 bpm Respiratory Rate 18 br/min Systolic Blood Pressure Non-Invasive 169 mmHg HI Diastolic Blood Pressure Non-Invasive 56 mmHg LOW Mean Arterial Pressure (NBP) 97 mmHg Blood Pressure Method Automatic Blood Pressure Location Left arm Blood Pressure Cuff Size Medium Reason For Taking VItal Signs Routine Primary Pain Intensity 0 Primary Pain Nonverbal Response Nods No Pain Scale Type 0-10 Pain scale Monitor Alarms On and Limits Checked Nail Bed Color Meckling Capillary Refill < 2 seconds Heart Sounds ICU S1S2 Heart Rhythm Regular Dorsalis Pedis Pulse, Left 1+ Thready Dorsalis Pedis Pulse, Right 1+ Thready Posttibial Pulse, Left 1+ Thready Posttibial Pulse, Right 1+ Thready Radial Pulse, Left 2+ Normal Radial Pulse, Right 2+ Normal Ankle edema Right Edema Ratin+ trace/2mm Cardiac Rhythm Sinus rhythm Monitoring Lead III, V1/MCL1 [place] Interval 0.13 second(s) QRS Duration 0.09 second(s) QT Interval 0.36 second(s) QTc Interval 0.37 second(s) Alarms On and Functional Yes Heart Rate Alarm Set At - Low 50 Heart Rate Alarm Set At - High 120 Respirations Unlabored Respiratory Pattern Regular Breath Sounds Auscultated Anterior and posterior All Lobes Breath Sounds Clear, Diminished Oxygen Therapy Room air Oxygen Saturation 94 % Tracheal Position Midline Abdomen Description Non-distended, Soft Abdomen Palpation Non-Tender, Soft Passing Flatus Yes Bowel Continence Continent Swallowing Disorder None Bowel Sounds All Quadrants Present Urinary Elimination Voiding, no difficulties Facial Movement Makes facial grimaces, Symmetric resting/crying All Extremity Description Meckling, Normal for ethnicity Skin Temperature Warm Temperature All Extremities Warm Skin Description Meckling, Normal for ethnicity Skin Integrity Intact Skin Turgor Elastic Mucous Membrane Color Meckling Mucous Membrane Description Moist Sensory Perception Sylvester No impairment Moisture Sylvester Rarely moist Activity Sylvester Walks frequently Mobility Sylvester No limitations Nutrition Sylvester Adequate Friction and Shear Sylvester No apparent problem Sylvester Score 22 Hospital Acquired Pressure Injury Risk None/minimal risk (score 19-23) Antecubital Left 11/04/2024 18 gauge Peripheral IV Activity: Assessed Peripheral IV Dressing Condition: Clean, Dry, Intact Peripheral IV Dressing Activity: Transparent dressing Peripheral IV Line Status/Patency: Continuous infusion Peripheral IV Line Care: Secured with tape Peripheral IV Site Condition: No complications Peripheral IV Equipment: IV Pump Radial Artery Right Vascular Access Site Condition: No complications Vascular Access Site Care: Immobilization device Vascular Access Distal Pulses: Palpable Vascular Access Dressing Activity: Transparent, Hemostasis Patch Vascular Access Dressing Condition: Clean, Dry, Intact Neurological Language Able to speak clearly, Follows simple commands Neurological Symptoms Patient denies Gait Unable to assess Extremity Movement Equal Swallowing Difficulty None Characteristics of Communication Appropriate Characteristics of Speech Clear Facial Symmetry Symmetric Level of Consciousness Alert Aspiration Risk None Eye Opening Response Jennifer Spontaneously Best Motor Response [place] Obeys simple commands Best Verbal Response [place] Oriented [place] Coma Score 15 OMAR Yes Left Pupil Description Regular, Round Right Pupil Description Regular, Round Left Pupil Reaction Brisk Right Pupil Reaction Brisk Pupil Size, Left 4 mm Pupil Size, Right 4 mm Strength All Extremities Strong Left Upper Extremity Sensation Intact Right Upper Extremity Sensation Intact Left Lower Extremity Sensation Intact Right Lower Extremity Sensation Intact CN VII Facial Expression and Symmetry Facial movement symmetrical CN IX, X Swallowing, Gag Reflex Swallowing present Coats Screen Daily History of Fall in Last 3 Months Coats No Presence of Secondary Diagnosis Coats Yes Use of Ambulatory Aid Coats None, bedrest, wheelchair, nurse IV/PRN Adapter Fall Risk Coats Yes Gait Weak or Impaired Fall Risk Coats Normal, bedrest, immobile Mental Status Fall Risk Coats Oriented to own ability Coats Fall Risk Score 35 Violence Risk Confused No Violence Risk Irritable No Violence Risk Boisterous No Violence Risk Verbal Threats No Violence Risk Physical Threats No Violence Risk Attacking Objects No Violence Risk Predictor Score 0 Violence Risk Intervention None Violence Risk Current Interventions None Affect/Behavior Appropriate, Calm Orientation Oriented x 4 BMAT Existing Patient Condition/Safety No order for Strict Bedrest BMAT Level 1: Sit and Shake Sit, side bed/reach midline/shake hands BMAT Level 2: Stretch and Point Seated position, straighten 1 knee; Flex ankle & point toes BMAT Level 3: Stand Stand up w/o assist/Use of assist device BMAT Level 4: Walk March in place; step forward & back each foot BMAT Mobility Level 4 Orientation Assessment Oriented x 4 Assistive Device None Positioning Repositions self Mobility Assistance Level Independent Activity Status ADL Lights dimmed, Resting Beds/Devices Hospital bed Activity Assistance Independent Standard Safety ID band on, Allergy Band on, Call device within reach, Bed in low position, Wheels locked, Upper/Half-Length side-rails up, Phone within reach, personal items within reach, Safety level maintained, Hazards removed from floor, Non-Slip footwear, Precautions maintained High Risk Safety Door open, Non-Slip footwear, Room check performed, High risk door magnet present Demonstrates Correct Call Light Use Yes heparin 10 unit(s)/kg/hr unit(s) Dextrose 5% Premix Diluent Dextrose 5% Premix Diluent mL Appetite Good Eating Difficulties None 11/05/2024 3:06 EST Sodium Chloride 0.9% Begin Bag 1,000 mL mL . Assessment and Plan [place] [employer] (ASA) physical status classification: Class IV. Anesthetic Preoperative Plan Premedication: intravenous. Anesthetic technique: General. Induction: intravenously. Maintenance airway: Oral endotracheal tube. Special techniques: Warming device. Special Monitoring: Arterial line, Central venous catheter, Continuous cardiac output, Continuous transesophageal echocardiogram. Postoperative pain management: Per surgeon. Risks discussed: nausea, vomiting, headache, sore throat, dental injury, hypotension, allergic reaction, serious complications. Informed consent: signed by patient. Beta Elziabeth: Beta Elizabeth Taken Within 24 Hrs: Yes. Digitally Signed by FINN OBRIEN DO on 11/06/2024 06:15 AM [facility] Evaluation + Plan note Future Appointments Appointment Date:09/21/2021 03:45:00 PM Scheduled Provider:CT DYSON DO Location:[facility] Appointment Type:PC OV [facility] Evaluation + Plan note Future Appointments Appointment Date:09/12/2022 01:30:00 PM Scheduled Provider:CT DYSON DO Location:[facility] Appointment Type:PC OV Pre Op Future Scheduled Tests Laboratory* Basic Metabolic Panel 03/21/22 * Prostate Specific Antigen 03/21/22 * A1C Hemoglobin 03/21/22 * Microalbumin Level Urine 03/21/22 [facility] Evaluation + Plan note Future Appointments Appointment Date:12/15/2022 04:00:00 PM Scheduled Provider:CT DYSON DO Location:[facility] Appointment Type:PC OV Future Scheduled Tests Laboratory* Basic Metabolic Panel 03/21/22 * Prostate Specific Antigen 03/21/22 * A1C Hemoglobin 03/21/22 * Microalbumin Level Urine 03/21/22 [facility] Evaluation + Plan note Future Appointments Appointment Date:05/18/2023 04:00:00 PM Scheduled Provider:CT DYSON DO Location:[facility] Appointment Type:PC OV Follow Up [facility] Evaluation + Plan note Future Appointments Appointment Date:11/05/2024 08:45:00 AM Scheduled Provider: Location:[facility] Appointment Type:VL - Carotid US/Doppler Complete Appointment Date:12/23/2024 03:30:00 PM Scheduled Provider:CT DYSON DO Location:[facility] Appointment Type:PC OV Controlled Medication Appointment Date:12/26/2024 04:00:00 PM Scheduled Provider: Location:[facility] Appointment Type:MEDS - Diabetic Individual Visit Future Scheduled Tests Laboratory* Prostate Specific Antigen 09/23/24 * Lipid Profile 09/23/24 * Albumin/Creatinine Ratio, Random Urine 09/23/24 * Complete Metabolic Panel 09/23/24 [facility] Evaluation + Plan note Future Appointments Appointment Date:12/16/2024 11:15:00 AM Scheduled Provider:CARMEN DYKES Location:[facility] Appointment Type:CV OV Appointment Date:12/19/2024 10:00:00 AM Scheduled Provider:SHLOMO GUILLEN Location:[facility] Appointment Type:CTS OV Post Op Follow Up Appointment Date:12/23/2024 03:30:00 PM Scheduled Provider:CT DYSON DO Location[facility] Appointment Type:PC OV Controlled Medication Appointment Date:12/26/2024 04:00:00 PM Scheduled Provider: Location:[facility] Appointment Type:MEDS - Diabetic Individual Visit Future Scheduled Tests Laboratory* Basic Metabolic Panel 11/22/24 * Prostate Specific Antigen 09/23/24 * Lipid Profile 09/23/24 * Albumin/Creatinine Ratio, Random Urine 09/23/24 * Complete Metabolic Panel 09/23/24 Radiology* XR Chest 2 Views (PA & Lateral) 12/20/24 [facility] Evaluation + Plan note Future Appointments Appointment Date:12/23/2024 03:30:00 PM Scheduled Provider:CT DYSON DO Location:[facility] Appointment Type:PC OV Controlled Medication Appointment Date:12/26/2024 04:00:00 PM Scheduled Provider: Location:[facility] Appointment Type:MEDS - Diabetic Individual Visit Future Scheduled Tests Laboratory* Prostate Specific Antigen 09/23/24 * Lipid Profile 09/23/24 * Albumin/Creatinine Ratio, Random Urine 09/23/24 * Complete Metabolic Panel 09/23/24 [facility] Evaluation noteNo assessment information available [facility] Work Phone: evaluxtbey note* Diagnosis Onset Date Resolution Status Acute kidney injury acute 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 CAD (coronary artery disease) chronic COPD (chronic obstructive pulmonary disease) chronic DM type 2 (diabetes mellitus, type 2) chronic GERD (gastroesophageal reflux disease) chronic Hypertension chronic Septic arthritis of knee, right resolved [facility] Work Phone: Evaluation note* Diagnosis Onset Date Resolution Status 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 CAD (coronary artery disease) chronic COPD (chronic obstructive pulmonary disease) chronic DM type 2 (diabetes mellitus, type 2) chronic GERD (gastroesophageal reflux disease) chronic Hypertension chronic Acute kidney injury resolved Septic arthritis of knee, right resolved [facility] Work Phone: Hospital course Narrative No data available for this section [facility] Discharge instructions No data available for this section [facility] Progress note No data available for this section [facility] Reason for referral (narrative)No reason for referral information [facility] Work Phone: Summary Purpose Family History No Family History Records Found Relationship Condition Age at Onset Recorded Date/T juan Unknown Family History?COPD, Heart Disease Unknown March 21, 2018 8:57pm Family History?Cancer Unknown March 21, 2018 8:57pm Family History?Cance r, Heart Disease Unknown October 18, 2016 8:24am Family History?Cance r, Heart Disease Unknown March 21, 2018 8:57pm Advance Directives No Advanced Directives Records Found Advance Directive Response Recorded Date/ Time Advance Directives Yes September 3:49pm Living Will Yes December 24 11:10pm Power of Dynamiter Yes December 24, 2020 11:10pm Advance Directive Response Recorded Date/ Time Name of Medical Power of Dynamiter May 31, 2023 3:58pm Advance Directives Yes September 3:49pm Living Will Yes May 31, 2023 3 :58pm Power of Dynamiter Yes May 31, 2023 3:58pm Advance Directive Response Recorded Date/ Time Advance Directives Yes September 3:49pm Chief Complaint and Reason for Visit Chief Complaint RT TOTAL KNEE REV SC AR DEBRIDE POLY EXCHANGE RT TOTAL KNEE REV SCAR DEBRIDE POLY EXCHANGE RT TOTAL KNEE REV SCAR DEBRIDE POLY EXCHANGE RT TOTAL KNEE REV SCAR DEBRIDE POLY EXCHANGE RT TOTAL KNEE REV SCAR DEBRIDE POLY EXCHANGE RT TOTAL KNEE REV SCAR DEBRIDE POLY EXCHANGE RT TOTAL KNEE REV SCAR DEBRIDE POLY EXCHANGE RT TOTAL KNEE REV SCAR DEBRIDE POLY EXCHANGE RT TOTAL KNEE REV SCAR DEBRIDE POLY EXCHANGE Reason for Visit Acute kidney injury 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 CAD (coronary artery disease) COPD (chronic obstructive pulmonary disease) DM type 2 (diabetes mellitus, type 2) GERD (gastroesophageal reflux disease) Hypertension Septic arthritis of knee, right Chief Complaint RT TOTAL KNEE REV SC AR DEBRIDE POLY EXCHANGE RT TOTAL KNEE REV SCAR DEBRIDE POLY EXCHANGE RT TOTAL KNEE REV SCAR DEBRIDE POLY EXCHANGE RT TOTAL KNEE REV SCAR DEBRIDE POLY EXCHANGE RT TOTAL KNEE REV SCAR DEBRIDE POLY EXCHANGE RT TOTAL KNEE REV SCAR DEBRIDE POLY EXCHANGE RT TOTAL KNEE REV SCAR DEBRIDE POLY EXCHANGE RT TOTAL KNEE REV SCAR DEBRIDE POLY EXCHANGE RT TOTAL KNEE REV SCAR DEBRIDE POLY EXCHANGE Reason for Visit Infection of prosthe tic right knee joint Status post revision of total replacement of right knee CAD (coronary artery disease) COPD (chronic obstructive pulmonary disease) DM type 2 (diabetes mellitus, type 2) GERD (gastroesophageal reflux disease) Hypertension Acute kidney injury Septic arthritis of knee, right Chief Complaint Admit Date Needs Mapping February 06, 2025 8:1 7am PRE OP AV FISTULA CREATION February 17, 2 025 9:23am Reason for Visit Admit Date ESRD (end stage renal disease) on dialys is February 06, 2025 8:17am Chief Complaint Admit Date Needs Mapping February 06, 2025 8:1 7am PRE OP AV FISTULA CREATION February 17, 2 025 9:23am Discuss Mapping March 03, 2025 3:55 pm left arm Arteriovenous Fistula,Creation April 01, 2025 9:09am left arm Arteriovenous Fistula,Creation April 01, 2025 10:04am Post AV Fistula Creation 2-3 WK FU March 272024 12:13pm Reason for Visit Admit Date ESRD (end stage renal disease) on dialys is February 06, 2025 8:17am ESRD (end stage renal disease) on dialys is March 03, 2025 3:55pm Chief Complaint Admit Date Needs Mapping February 06, 2025 8:1 7am PRE OP AV FISTULA CREATION February 17, 2 025 9:23am Discuss Mapping March 03, 2025 3:55 pm left arm Arteriovenous Fistula,Creation April 01, 2025 9:09am left arm Arteriovenous Fistula,Creation April 01, 2025 10:04am Post AV Fistula Creation 2-3 WK FU March 272024 12:13pm Pre-Op Stage II Transposition May 09, 2025 10:01am Reason for Visit Admit Date ESRD (end stage renal disease) on dialys is February 06, 2025 8:17am ESRD (end stage renal disease) on dialys is March 03, 2025 3:55pm ESRD (end stage renal disease) on dialys is April 14, 2025 12:13pm Additional Source Comments (unrecognized sect ion and content) No Status Records FoundNo Status Records FoundNo Status Records FoundNo Status Records FoundNo Status Records Found INFORMATION SOURCE (unrecogn ized section and content) DATE CREATED AUTHOR 05/23/2018 [facility] DATE CREATED AUTHOR AUTHOR'S ORGANIZ ATION 06/26/2024 [facility] ([place]) DATE CREATED AUTHOR AUTHOR'S ORGANIZ ATION 03/07/2025 [facility] DATE CREATED AUTHOR AUTHOR'S ORGANIZ ATION 04/25/2025 [facility] DATE CREATED AUTHOR AUTHOR'S ORGANIZ ATION 05/14/2025 [facility] Goals (unrecognized section and content) Goals may be documented in a n alternate section Care Team (unrecognized sect ion and content) Care Team Personnel Name: CT DYSON DO Position: P4 Physician - Primary Care Med Service: Active Provider Member Role: Primary Care Physician Address: Address: [address] [place] [address] Care Team Related Persons Name: PALAK NICHOLS Address: [address], [place] [id number] [place] Care Team Personnel Name: CT DYSON DO Position: P4 Physician - Primary Care Member Role: Primary Care Physician Address: Address: [address] [place] [address] Care Team Related Persons Name: PALAK NICHOLS Address: Home [address] [place], [place] [id number] [place] Care Team Personnel Name: CT DYSON DO Position: P4 Physician - Primary Care Member Role: Primary Care Physician Address: Address: [address] [place] [address] Care Team Related Persons Name: PALAK NICHOLS Address: Home [address] [place], [place] [id number] Patient Care team informatio n (unrecognized section and content) Team Status: Active Member Role Status Dates Dr. Ct Dyson DO Family Provider Active Dr. Ct Dyson DO Primary Care Provider Active Team Status: Active Member Role Status Dates Dr. Ct Dyson DO Primary Care Provider Active Dr. Laura Cook MD Admit Provider, R eferring Provider, Other Provider Active Dr. Oly Dexter MD Attending Provider, Other Provid er Active Team Status: Active Member Role Status Dates Dr. Ct Dyson DO Primary Care Provider Active Dr. Laura Cook MD Admit Provider, Other Provider Active Dr. Oly Dexter MD Attending Provider, Other Provid er Active Team Status: Active Member Role Status Dates Dr. Ct Dyson DO Primary Care Provider Active Dr. Laura Cook MD Admit Provider, Other Provider Active Dr. Oyl Dexter MD Attending Provider, Other Provid er Active Dr. Ct Campuzano MD Other Provider Active Team Status: Active Member Role Status Dates Dr. Ct Dyson DO Primary Care Provider Active Dr. Laura Cook MD Admit Provider, Other Provider Active Dr. Ct Campuzano MD Other Provider Active Dr. Seng Salcedo MD Attending Provider, Other Provi trey Active Dr. Juan Blankenship MD Other Provider Active Team Status: Active Member Role Status Dates Dr. Ct Dyson DO Primary Care Provider Active Dr. Laura Cook MD Admit Provider, R eferring Provider, Other Provider Active Dr. Ct Campuzano MD Other Provider Active Dr. Seng Salcedo MD Attending Provider, Other Provi trey Active Dr. Juan Blankenship MD Other Provider Active Team Status: Inactive Member Role Status Dates Dr. Ct Dyson DO Primary Care Provider Active Dr. Laura Cook MD Admit Provider, A ttending Provider, Referring Provider Active Dr. Ct Campuzano MD Other Provider Active Dr. Seng Salcedo MD Other Provider Active Dr. Juan Blankenship MD Other Provider Active Team Status: Inactive Member Role Status Dates Dr. Ct Dyson DO Primary Care Provider Active Dr. Laura Cook MD Attending Provider, Referring P rovider Active Dr. Ct Campuzano MD Other Provider Active Team Status: Active Member Role Status Dates Dr. Ct Dyson DO Primary Care Provider Active Team Status: Inactive Member Role Status Dates Dr. Ct Dyson DO Referring Provider Active Start: February 06, 2025 End: February 06, 2025 TARUN Horowitz Attending Provider Active Star t: February 06, 2025 End: February 06, 2025 Team Status: Inactive Member Role Status Dates TARUN Horowitz Attending Provider Active Star t: February 17, 2025 End: February 17, 2025 TARUN Horowitz Referring Provider Active Star t: February 17, 2025 End: February 17, [address] Dyson DO Primary Care Provider Active Start: February 17, 2025 End: February 17, 2025 Team Status: Active Member Role Status Dates Dr. Ct Dyson DO Primary Care Provider Active Start: February 17, 2025 Dr. Rui Vera MD Attending Provider Active S tart: February 17, 2025 Team Status: Inactive Member Role Status Dates Dr. Ct Dyson DO Primary Care Provider Active Start: March 03, 2025 End: March 03, [address] Dyson DO Referring Provider Active Start: March 03, 2025 End: March 03, 2025 Dr. Rui Vera MD Attending Provider Active S tart: March 03, 2025 End: March 03, 2025 Team Status: Inactive Member Role Status Dates Dr. Ct Dyson DO Primary Care Provider Active Start: March 21, 2025 End: March 21, 2025 Dr. Brett Oscar MD Attending Provider Active Start: March 21, 2025 End: March 21, 2025 Team Status: Inactive Member Role Status Dates Dr. Ct Dyson DO Primary Care Provider Active Start: April 01, 2025 End: April 01, 2025 Dr. Rui Vera MD Attending Provider Active S tart: April 01, 2025 End: April 01, 2025 Dr. Rui Vera MD Referring Provider Active S tart: April 01, 2025 End: April 01, 2025 Team Status: Active Member Role Status Dates Dr. Ct Dyson DO Primary Care Provider Active Start: April 01, 2025 Dr. uRi Vera MD Attending Provider Active S tart: April 01, 2025 Dr. Rui Vera MD Referring Provider Active S tart: April 01, 2025 Dr. Rui Vera MD Other Provider Active Start : April 01, 2025 Team Status: Inactive Member Role Status Dates Dr. Ct Dyson DO Primary Care Provider Active Start: April 14, 2025 End: April 14, [address] Dyson DO Referring Provider Active Start: April 14, 2025 End: April 14, 2025 Dr. Rui Vera MD Attending Provider Active S tart: April 14, 2025 End: April 14, 2025 Team Status: Inactive Member Role Status Dates Dr. Ct Dyson DO Primary Care Provider Active Start: May 09, 2025 End: May 09, 20[address] Dr. [address] Dyson DO Referring Provider Active Start: May 09, 2025 End: May 09, 2025 TARUN Horowitz Attending Provider Active Star t: May 09, 2025 End: May 09, 2025 FOR RECORDS PERTAINING TO PATIENTS WHO ARE OR HAVE BEEN ENROLLED IN A CHEMICAL DEPENDENCY/SUBSTANCEABUSE PROGRAM, SOME INFORMATION MAY BE OMITTED. This clinical summary was aggregated from multiple sources. Caution should be exercised in using it in the provision of clinical care. This summary normalizes information from multiple sources, and as a consequence, information in this document may materially change the coding, format and clinical context of patient data. In addition, data may be omitted in some cases. CLINICAL DECISIONS SHOULD BE BASED ON THE PRIMARY CLINICAL RECORDS. [facility] [facility]. provides no warranty or guarantee of the accuracy or completeness of information in this document.
--- NOTE | 2025-05-15 07:57 | AVDS_ITS ---
Reason For Study Reason For Study: LUE AVF Graft Evaluation for Dialysis Left Velocities Inflow - 286.3/143.7 cm/s Inflow - 1453 ml/min Anastomosis - 802.2/402.4 cm/s Anastomosis - 1917 ml/min Prox Graft - 324.6/ 129.5 cm/s Prox Graft - 1287 ml/min Mid Graft - 134.5/64.5 cm/s Mid Graft - 1046 ml/min Dist Graft - 89.3/47.3 cm/s Dist Graft - 795.6 ml/min Outflow - 94.7/ 52.7 cm/s Outflow - 1120 ml/min. Left Graft Findings LUE AVF Graft. Inflow measurements taken at Distal Brachial Artery. Anastomosis appears to arise from Proximal Radial A post Brachial A Bifurcation. Radial A appearsto tie into Median Cubital Vein. MCV bifurcates and Basilic Vein appears to be dominant vessel. Proximal Cephalic Vein measurements are recorded. One medial and one lateral branch noted in Basilic vein between mid and distal graft. Procedure The exam was diagnostic. LUE AVF Graft evaluation for maturity using B mode, Pulsed wave and Color Doppler. VL/AV Fistula/Dialysis Graft Scan Interpretation Summary Patent left upper extremity fistula with dual cephalic and basilic outflow. Cephalic vein with adequate flow volume and caliber proximal. Basilic vein with adequate flow volume and caliber throughout. Ordering Physician: Marleny William Referring Physician: Ben Lipscomb Performed By: Cade Musa, RVT
[2025-05-15 08:46] LABS: Hematocrit 35.3 % (40-54); Hemoglobin 11.4 g/dL (13.0-16.5); Mean Corp Hgb Conc 32.3 g/dL (32-36); Mean Corpuscular Hgb 27.4 pg (27.0-32.0); Mean Corpuscular Volume 84.9 fL (80-94); Mean Platelet Vol. 9.9 fl (6.2-12.0); Platelet Count 201 K/mm3 (150-450); RBC Distribution Width CV 13.9 % (11.6-14.6); RBC Distribution Width SD 42.7 fl (35.1-43.9); Red Blood Count 4.16 M/mm3 (4.6-6.2); White Blood Count 6.3 K/mm3 (4.4-11.0)
[2025-05-15 09:35] LABS: Anion Gap 14 (5-15); BUN 54 mg/dL (4-19); BUN/Creat Ratio 11.5 RATIO (10-20); Calcium,Total 8.9 mg/dL (7.6-11.0); Carbon Dioxide 26.6 mmol/L (21.0-32.0); Chloride 94 mmol/L (98-108); Creatinine, Serum 4.71 mg/dL (0.70-1.20); EST Glomerular Filtration Rate 13 (>60); Glucose 244 mg/dL (70-99); Potassium 4.9 mmol/L (3.3-5.1); Sodium Level 135 mmol/L (133-145)
== END | disposition home or self-care (01) ==
LOC: CVS 07:44
PROVIDERS: Surgery Trauma Surgery; PCP Preventive Medicine Occupational Medicine; Referring Provider Physician Assistant; Visit Provider Physician Assistant
DX: Z01.818 Encounter for other preprocedural examination (principal); N18.6 End stage renal disease; Z99.2 Dependence on renal dialysis
CPT/HCPCS: 36415; 80048; 85027; 86850; 86900; 86901; 93990

== ENCOUNTER 2025-06-09 11:36 | Day surgery (SDC) | payer OTHER, SELFPAY ==
--- NOTE | 2025-05-02 12:21 | PAT.ANE_ITS ---
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 When Was Last Pacemaker Check QUESTION #4 FULL TEXT: You/Your Family Experience fever (hyperthermia) with Anesthesia Last Oral Intake Last Oral intake: Last Oral Intake NPO since Meds taken in AM with sips of water? Meds patient instructed to take am of surgery PONV PONV - survey research analyst: PONV - survey research analyst Female No 05/02/25 11:25 HX of Motion Sickness No 05/02/25 11:25 HX of N/V After Surgery No 05/02/25 11:25 Non-Smoker Yes 05/02/25 11:25 Duration of Surgery greater Yes 05/02/25 11:25 than 60 minutes Number of Risk Factors 2 05/02/25 11:25 PONV Score Moderate Risk 05/02/25 11:25 Height & Weight Height & Weight: Anesthesia: Height & Weight Height 5 ft 7.5 in 04/14/25 12:20 Respiratory Assessment Respiratory Assessment - survey research analyst: Respiratory Tract Infection Hx - survey research analyst Hx Respiratory Tract Infection No 05/02/25 11:25 STOP Sleep Apnea STOP Sleep Apnea - survey research analyst: STOP Sleep Apnea - survey research analyst Hx Hypertension Yes 05/02/25 11:25 Hx Sleep Apnea No 05/02/25 11:25 CPAP No 05/02/25 11:25 BIPAP No 05/02/25 11:25 Do you snore loudly (louder No 05/02/25 11:25 than talking or can be heard Do you often feel tired/ No 05/02/25 11:25 fatigued/ sleepy during daytime? Has anyone observed you stop No 05/02/25 11:25 breathing during sleep? STOP Results Negative 05/02/25 11:25 QUESTION #5 FULL TEXT : Do you snore loudly (louder than talking or can be heard through closed doors)? 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 Specify any problems Hx of Preganancy in last 3 N/A 05/02/25 11:25 Months Nurse Filling Out Transfusion COMPA 05/02/25 11:25 & Questions: Date: 05/02/25 05/02/25 11:25 Time: 11:27 05/02/25 11:25 Patient unable to answer at this time (ie. 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 - survey research analyst: /Reproductive Hx- survey research analyst Hx Now Gestational Age (in weeks): EDC: Hx Hx Para Hx Section SAB No 05/02/25 11:25 [facility] Medical History (Updated 05/02/25 @ 11:40 by Jerica Morgan) History of MRSA infection History of renal disease History of renal dialysis Former smoker History of echocardiogram History of heart attack Loss of hearing Wears dentures Depression Alcohol use Insulin dependent diabetes mellitus Arthritis High cholesterol Back pain History of hiatal hernia Dietary restriction Gastric reflux COPD (chronic obstructive pulmonary disease) Smoker History of pain when walking History of edema History of stress test Cardiology follow-up encounter Hypertension NSTEMI (non-ST elevated myocardial infarction) Home Medications ?Medication ?Instructions ?Recorded ?Last Taken ?Type escitalopram oxalate 5 mg tablet 10 mg PO DAILY depres donell 10/15/16 03/31/25 History (Lexapro) gwanhkal-vts-ilppu acid 0.4 1 ea PO DAILY supplement 1 12/15/15 Unknown History mg-lycopene 300 mcg-lutein 250 mcg tablet (Centrum Silver) omeprazole 20 mg capsule,delayed 20 mg PO DAILY gerd 1 12/15/15 03/31/25 History release insulin degludec 100 unit/mL (3 38 unit subcut Q24H di abetes 01/15/18 03/31/25 08:00 History mL) subcutaneous pen (Tresiba FlexTouch U-100 insulin) montelukast 10 mg tablet 10 mg PO DAILY@1700 #42 tabs 03/22/18 03/31/25 Rx pravastatin 40 mg tablet 40 mg PO QHS 08/24/18 History cholecalciferol (vitamin D3) 25 25 mcg PO DAILY Unknown History mcg (1,000 unit) tablet (Vitamin D3) ondansetron HCl 4 mg tablet 4 mg PO Q8H PRN nausea and vomiting 02/06/25 Unknown History furosemide 40 mg tablet (Lasix) 40 mg PO QAM 03/03/25 03/31/25 History albuterol sulfate 90 mcg/actuation 2 puff inhalation Q 6H PRN PRN 03/18/25 Unknown History aerosol inhaler wheezing amlodipine 5 mg tablet 5 mg PO QPM 03/18/25 5 History aspirin 81 mg chewable tablet 81 mg PO DAILY 03/18/25 03/30/25 History clopidogrel 75 mg tablet 75 mg PO DAILY 03/18/25 0503/21 History ezetimibe 10 mg tablet 10 mg PO DAILY 03/18/25 Unkn own History losartan 100 mg tablet 100 mg PO DAILY 03/18/25 Unk nown History losartan 25 mg tablet 25 mg PO BID 03/18/25 Unknow n History metoprolol tartrate 25 mg tablet 25 mg PO BID 03/18/25 03/31/25 History midodrine 5 mg tablet 5 mg PO MOWEFR 03/18/25 Unkn own History semaglutide 7 mg tablet (Rybelsus) 7 mg PO DAILY 03/1803/30/25 History acetaminophen 500 mg tablet 1,000 mg PO Q8 PRN pain Unknown History oxycodone 5 mg tablet 5 - 10 mg PO Q4H PRN Pain Sc ore 05/02/25 Unknown History 4-10 Allergy/AdvReac Type Severity Reaction Status Date / Time bee venom protein (honey Allergy Swelling Verified 05/02/25 11:17 bee) (bee sting) lisinopril AdvReac Unknown cough Verified 05/02/25 11:17 Surgical History (Updated 05/02/25 @ 11:25 by Jerica Morgan) History of surgery History of heart surgery History of elbow surgery H/O heart artery stent (~11/06/24) Hx of knee surgery History of arthroplasty of knee Hx of left cataract extraction Hx of knee surgery Hx of knee surgery Hx of total knee arthroplasty Hx of right cataract extraction Hx of foot surgery Hx of arthroscopy Hx laparoscopic cholecystectomy Hx of hernia repair Hx of arthroscopy of right knee Status post coronary artery stent placement Coronary angioplasty status Status post revision of total replacement of right knee Social History Smoking Status: Former smoker how long ago did patient quit smokin years Audit: Pertinent Findings Pertinent Findings EKG Perinent findings: 05/19/2023. Normal sinus rhythm with sinus arrhythmia. 60 bpm. Left anterior fascicular block. Septal infarct, age undetermined. Recommendation Anesthesia Recommendation Anesthesia recommendation: OPTIMIZED for anesthesia
[2025-06-09] VITALS (12 sets, daily range): BP systolic 169–194; BP diastolic 48–85; PULSE 64–82; RESP 14–20; TEMP 36.2–36.4; O2SAT 93–100; BMI 30.9
[2025-06-09] MEDS: 0.9% Normal Saline (500mL Bag) 500 ML 15 ML IV (12:36)
[2025-06-09 12:40] LABS: Hematocrit 35.9 % (40-54); Hemoglobin 12.1 g/dL (13.0-16.5); Mean Corp Hgb Conc 33.7 g/dL (32-36); Mean Corpuscular Volume 84.5 fL (80-94); Mean Platelet Vol. 9.7 fl (6.2-12.0); Platelet Count 157 K/mm3 (150-450); RBC Distribution Width CV 13.8 % (11.6-14.6); RBC Distribution Width SD 42.6 fl (35.1-43.9); Red Blood Count 4.25 M/mm3 (4.6-6.2); White Blood Count 4.7 K/mm3 (4.4-11.0)
--- NOTE | 2025-06-09 13:01 | PCM.PRE.AN2 ---
ASA Classification* ASA Classification ASA Classification: 3 Assessment & Plan Anesthesia* Anesthesia Assessment Anesthesia Assessment: Discussed sedation and/or anesthesia options, risks, benefits, and alternatives with patient/parents/legal guardian/POA. Questions invited. The patient/parents/legal guardian/POA seems to understand and agrees to proceed with anesthesia plan. Reviewed the physical assessment, medical history, allergy history and patient home medications list prior to surgery/procedure/anesthetic and documented any changes. Performed airway and anesthesia risk assessments. Anesthesia Type Anesthesia Type: General (plan for GA with LMA, discussed possible need for ETT. discussed risks of injury to teeth, gums, lips; sore throat, CVA, MS, seizure, allergic rxn. Patient consents for blood products) History Source History Obtained from:: Patient and Chart Anesthesia Focused Assessment* Temperature: 97.1 F Pulse Rate: 64 Blood Pressure: 181/68 Respiratory Rate: 18 Pulse Ox: 100 Oxygen Delivery Method: Room Air Airway Assessment Mouth opens: >3 cm Mallampati Score: II Teeth Condition: Dentures, Full, Lower and Upper Labs Anesthesia Preop lab: CBC WBC 4.7 K/mm3 (4.4-11.0) 06/09/25 12:00 06/09/25 RBC 4.25 M/mm3 (4.6-6.2) L 06/09/25 12:00 06/09/25 Hgb 12.1 g/dL (13.0-16.5) L 06/09/25 12:00 06/09/25 Hct 35.9 % (40-54) L 06/09/25 12:00 06/09/25 Plt Count 157 K/mm3 (150-450) 06/09/25 12:00 06/09/25 CHEMISTRY Potassium 4.0 mmol/L (3.3-5.1) 06/09/25 12:00 06/09/25 Sodium 140 mmol/L (133-145) 06/09/25 12:00 06/09/25 Magnesium 2.8 mg/dL (1.6-2.6) H 05/19/23 07:16 05/19/23 BUN 34 mg/dL (4-19) H 06/09/25 12:00 06/09/25 Creatinine 3.62 mg/dL (0.70-1.20) H 06/09/25 12:00 06/09/25 Glucose 93 mg/dL (70-99) 06/09/25 12:00 06/09/25 POC Glucose 139 mg/dL (74-106) H 04/01/25 09:36 04/01/25 TSH 1.81 uIU/mL (0.358-3.74) 09/17/19 07:00 09/17/19 COAG Pre-Assessment Diagnosis/Proposed Procedure Planned Operative Procedure(s): (L) Left Arm Stage 2 Basilic Transposition Anesthesia History 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 When Was Last Pacemaker Check QUESTION #4 FULL TEXT: You/Your Family Experience fever (hyperthermia) with Anesthesia Last Oral Intake Last Oral intake: Last Oral Intake NPO since 23:50 06/09/25 12:24 Meds taken in AM with sips of Yes 06/09/25 12:24 water? 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: PONV - glass bulb silverer Female No 06/05/25 09:17 HX of Motion Sickness No 06/05/25 09:17 HX of N/V After Surgery No 06/05/25 09:17 Non-Smoker Yes 06/05/25 09:17 Duration of Surgery greater Yes 06/05/25 09:17 than 60 minutes Number of Risk Factors 2 06/05/25 09:17 PONV Score Moderate Risk 06/05/25 09:17 Height & Weight Height & Weight: Anesthesia: Height & Weight Height 5 ft 7.5 in 06/09/25 12:24 Weight: 91 kg 06/09/25 12:24 Body Mass Index (BMI) 30.9 07/14/25 12:24 Respiratory Assessment Respiratory Assessment - glass bulb silverer: Respiratory Tract Infection Hx - glass bulb silverer Hx Respiratory Tract Infection No 06/05/25 09:17 STOP Sleep Apnea STOP Sleep Apnea - glass bulb silverer: STOP Sleep Apnea - glass bulb silverer Hx Hypertension Yes 06/05/25 09:17 Hx Sleep Apnea No 06/05/25 09:17 CPAP No 06/05/25 09:17 BIPAP No 06/05/25 09:17 Do you snore loudly (louder No 06/05/25 09:17 than talking or can be heard Do you often feel tired/ No 06/05/25 09:17 fatigued/ sleepy during daytime? Has anyone observed you stop No 06/05/25 09:17 breathing during sleep? STOP Results Negative 06/05/25 09:17 QUESTION #5 FULL TEXT : Do you snore loudly (louder than talking or can be heard through closed doors)? 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 Specify any problems Hx of Preganancy in last 3 N/A 06/05/25 09:17 Months Nurse Filling Out Transfusion [id number] 06/05/25 09:17 & Questions: Date: 06/05/25 06/05/25 09:17 Time: 09:17 06/05/25 09:17 Patient unable to answer at this time (ie. 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 - glass bulb silverer: /Reproductive Hx- glass bulb silverer Hx Now Gestational Age (in weeks): EDC: Hx Hx Para Hx Section SAB No 06/05/25 09:17 Active Medications Active Medications: Current Medications Generic Name Dose Route Start Last Admin Trade Name Freq PRN Reason Stop Dose Admin Heparin Sodium (Porcine) 2,500 units 06/09/25 12:29 Heparin 10,000 Units/10 Ml Vial IV UD PRN Dialysis Cath Heparin Flush Cefazolin Sodium 2 gm/ Sodium 110 mls @ 200 mls/hr 06/09/25 13:30 Chloride IV 06/09/25 14:02 INTRAOP ONE Sodium Chloride 500 mls @ 0 mls/hr 06/09/25 12:00 06/09/25 12:36 IV 15 mls/hr .Q0M TRINA Administration KVO Sodium Chloride 10 ml 06/09/25 12:29 0.9% Saline Lock 10 Ml Syringe IV UD PRN Dialysis Catheter Flush [facility] Medical History History of MRSA infection History of renal disease History of renal dialysis Former smoker History of echocardiogram History of heart attack Loss of hearing Wears dentures Depression Alcohol use Insulin dependent diabetes mellitus Arthritis High cholesterol Back pain History of hiatal hernia Dietary restriction Gastric reflux COPD (chronic obstructive pulmonary disease) Smoker History of pain when walking History of edema History of stress test Cardiology follow-up encounter Hypertension NSTEMI (non-ST elevated myocardial infarction) Home Medications ?Medication ?Instructions ?Recorded ?Last Taken ?Type escitalopram oxalate 5 mg tablet 10 mg PO DAILY depression 10/15/16 06/08/25 History (Lexapro) qthawzrn-bgh-kzorx acid 0.4 1 ea PO DAILY supplement 10/15/16 Unknown History mg-lycopene 300 mcg-lutein 250 mcg tablet (Centrum Silver) omeprazole 20 mg capsule,delayed 20 mg PO DAILY gerd 10/15/16 06/09/25 History release insulin degludec 100 unit/mL (3 38 unit subcut Q24H diabetes 01/15/18 06/08/25 History mL) subcutaneous pen (Tresiba FlexTouch U-100 insulin) montelukast 10 mg tablet 10 mg PO DAILY@1700 #42 tabs 03/22/18 06/08/25 Rx pravastatin 40 mg tablet 40 mg PO QHS 08/24/18 06/08/25 History cholecalciferol (vitamin D3) 25 25 mcg PO DAILY 05/17/23 06/08/25 History mcg (1,000 unit) tablet (Vitamin D3) ondansetron HCl 4 mg tablet 4 mg PO Q8H PRN nausea and vomiting 02/06/25 Unknown History furosemide 40 mg tablet (Lasix) 40 mg PO QAM 03/03/25 06/08/25 History albuterol sulfate 90 mcg/actuation 2 puff inhalation Q6H PRN PRN 03/18/25 Unknown History aerosol inhaler wheezing amlodipine 5 mg tablet 5 mg PO QPM 03/18/25 06/08/25 History aspirin 81 mg chewable tablet 81 mg PO DAILY 03/18/25 06/09/25 History clopidogrel 75 mg tablet 75 mg PO DAILY 03/18/25 06/08/25 History ezetimibe 10 mg tablet 10 mg PO DAILY 03/18/25 06/08/25 History losartan 100 mg tablet 100 mg PO DAILY 03/18/25 06/09/25 History losartan 25 mg tablet 25 mg PO BID 03/18/25 06/09/25 History metoprolol tartrate 25 mg tablet 25 mg PO BID 03/18/25 06/09/25 History midodrine 5 mg tablet 5 mg PO MOWEFR 03/18/25 06/06/25 History semaglutide 7 mg tablet (Rybelsus) 7 mg PO DAILY 03/18/25 06/02/25 History acetaminophen 500 mg tablet 1,000 mg PO Q8 PRN pain 05/02/25 Unknown History oxycodone 5 mg tablet 5 - 10 mg PO Q4H PRN Pain Score 05/02/25 06/08/25 History 4-10 Allergy/AdvReac Type Severity Reaction Status Date / Time bee venom protein (honey Allergy Swelling Verified 06/09/25 12:20 bee) (bee sting) lisinopril AdvReac Unknown cough Verified 06/09/25 12:20 Surgical History History of surgery History of heart surgery History of elbow surgery H/O heart artery stent (~11/06/24) Hx of knee surgery History of arthroplasty of knee Hx of left cataract extraction Hx of knee surgery Hx of knee surgery Hx of total knee arthroplasty Hx of right cataract extraction Hx of foot surgery Hx of arthroscopy Hx laparoscopic cholecystectomy Hx of hernia repair Hx of arthroscopy of right knee Status post coronary artery stent placement Coronary angioplasty status Status post revision of total replacement of right knee Social History Smoking Status: Former smoker how long ago did patient quit smokin years Review of Systems (Anesthesia) ROS Narrative System reviewed and no additional complaints, except as documented. Physical Exam Const alert and oriented x3 HEENT dentition normal Chest Chest Narrative: HD catheter Resp normal respiratory effort Cardio regular rate Neuro oriented x3 and moves all extremities
[2025-06-09 13:14] LABS: Anion Gap 12 (5-15); BUN 34 mg/dL (4-19); BUN/Creat Ratio 9.4 RATIO (10-20); Calcium,Total 9.2 mg/dL (7.6-11.0); Carbon Dioxide 27.2 mmol/L (21.0-32.0); Chloride 101 mmol/L (98-108); Estimated Creatinine Clearance 21.89 ml/min (50-250); Glucose 93 mg/dL (70-99); Potassium 4.0 mmol/L (3.3-5.1)
--- NOTE | 2025-06-09 13:22 | PCM.HP.BLA ---
History and Physical Allergies bee venom protein (honey bee) (bee sting) Allergy (Verified 06/02/25 14:14) Swellinglisinopril Adverse Reaction (Unknown, Verified 06/02/25 14:14) cough Medications ?Medication ?Instructions ?Recorded ?Confirmed ?Type escitalopram oxalate 5 mg tablet 10 mg PO DAILY depression 10/15/16 06/02/25 History (Lexapro) ilswhnfz-rxs-pqaay acid 0.4 1 ea PO DAILY supplement 10/15/16 06/02/25 History mg-lycopene 300 mcg-lutein 250 mcg tablet (Centrum Silver) omeprazole 20 mg capsule,delayed 20 mg PO DAILY gerd 10/15/16 06/02/25 History release insulin degludec 100 unit/mL (3 38 unit subcut Q24H diabetes 01/15/18 06/02/25 History mL) subcutaneous pen (Tresiba FlexTouch U-100 insulin) montelukast 10 mg tablet 10 mg PO DAILY@1700 #42 tabs 03/22/18 06/02/25 Rx pravastatin 40 mg tablet 40 mg PO QHS 08/24/18 06/02/25 History cholecalciferol (vitamin D3) 25 25 mcg PO DAILY 05/17/23 06/02/25 History mcg (1,000 unit) tablet (Vitamin D3) ondansetron HCl 4 mg tablet 4 mg PO Q8H PRN nausea and vomiting 02/06/25 06/02/25 History furosemide 40 mg tablet (Lasix) 40 mg PO QAM 03/03/25 06/02/25 History albuterol sulfate 90 mcg/actuation 2 puff inhalation Q6H PRN PRN 03/18/25 06/02/25 History aerosol inhaler wheezing amlodipine 5 mg tablet 5 mg PO QPM 03/18/25 06/02/25 History aspirin 81 mg chewable tablet 81 mg PO DAILY 03/18/25 06/02/25 History clopidogrel 75 mg tablet 75 mg PO DAILY 03/18/25 06/02/25 History ezetimibe 10 mg tablet 10 mg PO DAILY 03/18/25 06/02/25 History losartan 100 mg tablet 100 mg PO DAILY 03/18/25 06/02/25 History losartan 25 mg tablet 25 mg PO BID 03/18/25 06/02/25 History metoprolol tartrate 25 mg tablet 25 mg PO BID 03/18/25 06/02/25 History midodrine 5 mg tablet 5 mg PO MOWEFR 03/18/25 06/02/25 History semaglutide 7 mg tablet (Rybelsus) 7 mg PO DAILY 03/18/25 06/02/25 History acetaminophen 500 mg tablet 1,000 mg PO Q8 PRN pain 05/02/25 06/02/25 History oxycodone 5 mg tablet 5 - 10 mg PO Q4H PRN Pain Score 05/02/25 06/02/25 History 4-10 Have you fallen in the past year?: No Subjective Details: Unable to cannulate fistula at dialysis. Catheter remains functional though causing discomfort. Left hand digits 3-4-5 with numbness often related with arm positioning. Objective Details: A&O x 3, NAD RRR Resp non labored +thrill in basilic and cephalic hand pink, normal capillary refill,+radial/ilnar pulse Coding Level of Care Code Global Post Op Diagnoses ESRD (end stage renal disease) on dialysis N18.6; Z99.2 [facility] Medical History History of MRSA infection History of renal disease History of renal dialysis Former smoker History of echocardiogram History of heart attack Loss of hearing Wears dentures Depression Alcohol use Insulin dependent diabetes mellitus Arthritis High cholesterol Back pain History of hiatal hernia Dietary restriction Gastric reflux COPD (chronic obstructive pulmonary disease) Smoker History of pain when walking History of edema History of stress test Cardiology follow-up encounter Hypertension NSTEMI (non-ST elevated myocardial infarction) Surgical History History of surgery History of heart surgery History of elbow surgery H/O heart artery stent (~11/06/24) Hx of knee surgery History of arthroplasty of knee Hx of left cataract extraction Hx of knee surgery Hx of knee surgery Hx of total knee arthroplasty Hx of right cataract extraction Hx of foot surgery Hx of arthroscopy Hx laparoscopic cholecystectomy Hx of hernia repair Hx of arthroscopy of right knee Status post coronary artery stent placement Coronary angioplasty status Status post revision of total replacement of right knee Social History Smoking Status: Former smoker how long ago did patient quit smokin years Assessment and Plan (No Qualifiers) Assessment and Plan (1) ESRD (end stage renal disease) on dialysis: Status: Chronic Plan: -unfortunately unable to utilize fistula in current location/configuration -plan transposition
--- NOTE | 2025-06-09 16:12 | EX.PCM.DISCH ---
Discharge Instructions Diet Discharge Diet: No restrictions Activity Lifting Restrictions: do not lift > 20 lbs for 3 weeks with left arm Additional Activity Instructions:: do not submerge incision for 3 weeks Dressing / Incision Call your doctor if your incision/area has: Sudden Increased Bleeding, Increased Pain/ Swelling, Increased Redness and Foul Smelling Discharge Call your doctor if you observe: Fever of 101 or Higher, Coldness, Increased Pain and Numbness or Tingling Remove Dressing in: 2 days Cleanse incision/area with: Soap & Water Follow Up Care Test Results: Test results from this visit will be discussed in further detail at your follow-up appointment, if applicable. Discharge Plan Admission Attending Provider: Rui Vera Primary Care Provider: Ben Lipscomb Instructions Print Language: Azerbaijani Discharge Orders/Prescriptions Prescriptions: New oxycodone 5 mg tablet 5 mg PO Q8H PRN (Reason: pain) 3 Days Qty: 9 0RF Continued ondansetron HCl 4 mg tablet 4 mg PO Q8H PRN (Reason: nausea and vomiting) furosemide [Lasix] 40 mg tablet 40 mg PO QAM omeprazole 20 MG capsule 20 mg PO DAILY Patient Comments: acid reflux escitalopram oxalate [Lexapro] 5 MG tablet 10 mg PO DAILY Patient Comments: depression Centrum Silver 1 EACH tablet 1 ea PO DAILY Patient Comments: supplement insulin degludec [Tresiba FlexTouch U-100] 100 UNIT/ML insulin pen 38 unit subcut Q24H montelukast 10 MG tablet 10 mg PO DAILY@1700 Qty: 42 1RF pravastatin 40 MG tablet 40 mg PO QHS cholecalciferol (vitamin D3) [Vitamin D3] 25 mcg (1,000 unit) Tablet 25 mcg PO DAILY clopidogrel 75 mg tablet 75 mg PO DAILY amlodipine 5 mg tablet 5 mg PO QPM losartan 25 mg tablet 25 mg PO BID losartan 100 mg tablet 100 mg PO DAILY ezetimibe 10 mg tablet 10 mg PO DAILY midodrine 5 mg tablet 5 mg PO MOWEFR Patient Comments: [facility] metoprolol tartrate 25 mg tablet 25 mg PO BID Rybelsus 7 mg tablet 7 mg PO DAILY aspirin 81 mg Tablet,Chewable 81 mg PO DAILY albuterol sulfate 90 mcg/actuation HFA aerosol inhaler 2 puff inhalation Q6H PRN PRN (Reason: wheezing) acetaminophen 500 mg Tablet 1,000 mg PO Q8 PRN (Reason: pain) oxycodone 5 mg Tablet 5 - 10 mg PO Q4H PRN (Reason: Pain Score 4-10) Referrals / Follow Up: Ben Lipscomb DO [Primary Care Provider] - Disposition Disposition (needs filled in before D/C Order can be placed): Home, Self Care
--- NOTE | 2025-06-09 16:31 | OP.PCM_ITS ---
Operative Report (Standard) Operative Information Date of Procedure: 06/09/25 Pre-Operative Diagnosis: End-stage renal disease on dialysis, prior stage I basilic fistula Post-Operative Diagnosis: Same Surgery/Procedure Performed: Left stage II basilic transposition information services tech: Yes Blankbook Stitching Machine Operator: Diogenes Matson Tasks completed by creative assistant: Opening, Closing, Opening & closing, Hemostasis: Tie and Retracting Type of Anesthesia: General and Local RN Documented Start/Stop Times: Operation Date: 06/09/25 13:30 Case Time Into Pre-Op 06/09/25 11:51 Out of Pre-Op 06/09/25 13:27 Anesthesia Start 06/09/25 13:37 Into Room 06/09/25 13:37 Procedure Start 06/09/25 14:04 Procedure Start Time: 14:05 Procedure Stop Time: 16:30 Select all DRAINS/GRAFTS/IMPLANTS that apply: None Estimated Blood Loss: 9 Specimen collected: No Description of surgery: HPI: Patient is a 64-year-old male with end-stage renal disease currently on dialysis. He had a previous left upper extremity stage I basilic fistula creation which has matured well. He presents now for fistula transposition. Description of procedure: Upon obtaining informed consent and verification correct patient procedure site the patient was taken to the operating room patient placed under general anesthesia. He was then positioned prepped and draped in usual sterile fashion a time was performed. Ultrasound was used to evaluate the basilic vein along the entirety of its course was found to have a high confluence with the brachial vein at the axilla. The vessel was of satisfactory caliber throughout. There was also a large proximal segment of the cephalic vein in the distal upper arm which we felt would be potentially usable for our anastomosis to gain some excess length. Skin overlying the vessel was anesthetized and longitudinal incision made with a 15 blade. Bovie electrocautery was used to dissect down through the subcutaneous tissue and subcutaneous retractors put in position. Further dissection was then carried down until the vessel was visualized at which point sharp resection was used dissect free the superficial surface of the vein with care taken to identify and protect adjacent nerve and artery structures. Side branches were identified, ligated with silk ties, and divided. The vein was then circumferentially dissected free along the entirety of his length from the antecubital crease to the axillary confluence. A tunneler was then used to tunnel on the anterior aspect of the upper arm and the patient was then heparinized allowed to circulate for 3 minutes. The vein was then marked to maintain orientation and clamped proximally at the origin at the cephalic vein and then distally just below the confluence with the brachial vein. The fistula was then divided at the distal aspect and extracted from behind the nerves. The stump at the origin from the cephalic was then oversewn with 5-0 Prolene in 2 layers and the clamp removed with satisfactory my stasis observed. The vein was then secured to the tunneler and pulled through the subcutaneous tissue. The cephalic branch was then ligated distally and clamped at the antecubital crease and then divided. The cephalic vein was then beveled to match the basilic vein and anastomosis performed with 6-0 Prolene in four-quadrant technique. Prior to completing suture line the vessels were flushed and assessed for stricture. After completing suture line clamps removed and satisfactory hemostasis was observed. There is a palpable thrill in the fistula and a satisfactory Doppler signal with low resistance characteristic throughout. Heparin send and versed with protamine incision closed with 2-0 Vicryl, 3-0 Vicryl, 4-0 Monocryl in [place] for the skin. Dry sterile dressing was applied patient was taken to cover air plan discharged to home. Surgical Findings: See above Complications Complications: No
--- NOTE | 2025-06-09 16:58 | PCM.POST.ANE ---
Anesthesia: Postop Eval I Current Vital Signs Temperature: 97.6 F Pulse Rate: 81 Blood Pressure: 184/77 Respiratory Rate: 20 Pulse Ox: 98 Oxygen Delivery Method: Room Air Assessment Airway patent: Yes Spontaneous unlabored respirations: Yes Mental status: Awake and Calm nausea: No Vomiting: No Anesthesia Complication: No Fluid Hydration Crystalloid volume administer (ml): 400 Total IV fluid infused: 400 Progress Note Anesthesia document: Postop Eval 1 completed: Yes
--- NOTE | 2025-06-09 18:37 | POSTOPAN2_ITS ---
Anesthesia Postop Eval I Sum Postop Eval Completion status Anesthesia document: Postop Eval 1 completed: Yes Anesthesia Postop Eval I Summary Anesthesia Postop Eval I Summary: Anesthesia Postop Eval I: Assessment Summary Airway patent Yes 06/09/25 16:58 [email or web address] Spontaneous unlabored Yes 06/09/25 16:58 [email or web address] respirations Mental status Awake,Calm 06/09/25 16:58 [email or web address] nausea No 06/09/25 16:58 [email or web address] Vomiting No 06/09/25 16:58 [email or web address] Anesthesia Postop Eval I: Fluid Summary Crystalloid volume administer 400 06/09/25 16:58 [email or web address] (ml) Colloids volume administered ( ml) Blood Product volume administered (ml) Total IV fluid infused 400 06/09/25 16:58 [email or web address] Anesthesia Postop Eval I: Summary Notes Anesthesia Complication No 06/09/25 16:58 [email or web address] Anesthesia Complication Comment: Post-operative progress note Anesthesia: Postop Eval II Evaluation Mental status: Awake and Calm Pain Level: 3 nausea: No Vomiting: No Complications Anesthesia Complication: No
--- NOTE | 2025-06-09 18:37 | PCM.POSTANE2 ---
Anesthesia Postop Eval I Sum Postop Eval Completion status Anesthesia document: Postop Eval 1 completed: Yes Anesthesia Postop Eval I Summary Anesthesia Postop Eval I Summary: Anesthesia Postop Eval I: Assessment Summary Airway patent Yes 06/09/25 16:58 [email or web address] [email or web address] Spontaneous unlabored Yes 06/09/25 16:58 TECHNOLOGY [email or web address] [email or web address] respirations Mental status Awake,Calm 06/09/25 16:58 [email or web address] [email or web address] [email or web address] nausea No 06/09/25 16:58 TECHNOLOGY PROJECT [email or web address] Vomiting No 06/09/25 16:58 TECHNOLOGY [email or web address] [email or web address] Anesthesia Postop Eval I: Fluid Summary Crystalloid volume administer 400 06/09/25 16:58 [email or web address] [email or web address] [email or web address] (ml) Colloids volume administered ( ml) Blood Product volume administered (ml) Total IV fluid infused 400 06/09/25 16:58 TECHNOLOGY [email or web address] [email or web address] Anesthesia Postop Eval I: Summary Notes Anesthesia Complication No 06/09/25 16:58 TECHNOLOGY [email or web address] [email or web address] Anesthesia Complication Comment: Post-operative progress note Anesthesia: Postop Eval II Evaluation Mental status: Awake and Calm Pain Level: 3 nausea: No Vomiting: No Complications Anesthesia Complication: No
== END 2025-06-09 18:55 | disposition home or self-care (01) ==
LOC: SDC 11:37 → AC 11:38
PROVIDERS: PCP Preventive Medicine Occupational Medicine; Referring Provider Surgery Trauma Surgery; Visit Provider Surgery Trauma Surgery
PROC: (CPT 36819; principal; 2025-06-09 13:15)
DX: E11.22 Type 2 diabetes mellitus with diabetic chronic kidney disease (principal); I12.0 Hypertensive chronic kidney disease with stage 5 chronic kidney disease or end stage renal disease; N18.6 End stage renal disease; J44.9 Chronic obstructive pulmonary disease, unspecified; K21.9 Gastro-esophageal reflux disease without esophagitis; E78.00 Pure hypercholesterolemia, unspecified; I25.2 Old myocardial infarction; Z79.51 Long term (current) use of inhaled steroids; Z79.82 Long term (current) use of aspirin; Z79.899 Other long term (current) drug therapy; Z87.891 Personal history of nicotine dependence; Z99.2 Dependence on renal dialysis; Z95.5 Presence of coronary angioplasty implant and graft
CPT/HCPCS: 36819; 01844; 80048; 85027; 86850; 86900; 86901; 94640; A4648; A4216; J2405

== ENCOUNTER 2025-08-26 06:55 | Day surgery (SDC) | payer OTHER, SELFPAY ==
--- OUTSIDE RECORDS SUMMARY | 2025-06-27 10:53 | XMS RPT_ITS ---
Author Name Auto Generated Organization OHIP Support Name Relationship Address Phone NICHOLS, JANEL Next of Kin [address] [place] [address] + NICHOLS, JANEL Next of Kin [address] [place] [address] + NICHOLS, JANEL Next of Kin [address] [place] [address] + NICHOLS, JANEL Next of Kin [address] [place] [address] + NICHOLS, JANEL Next of Kin [address] [place] [address] + NICHOLS, JANEL Next of Kin [address] [place] [address] + NICHOLS, JANEL Next of Kin [address] [place] [address] + NICHOLS, JANEL Next of Kin [address] [place] [address] + NICHOLS, JANEL Next of Kin [address] [place] [address] + NICHOLS, JANLE Next of Kin [address] [place] [address] + NICHOLS, JANEL Next of Kin [address] [place] [address] + NICHOLS, JANEL Next of Kin [address] [place] [address] + NICHOLS, JANEL Next of Kin [address] [place] [address] + NICHOLS, JANLE Next of Kin [address] [place] [address] + NICHOLS, JANEL Next of Kin [address] [place] [address] + NICHOLS, JANEL Next of Kin [address] [place] [address] + NICHOLS, JANEL Next of Kin [address] [place] [address] + NICHOLS, JANEL Next of Kin [address] [place] [address] + NICHOLS, JANEL Next of Kin [address] [place] [address] + NICHOLS, JANEL Next of Kin [address] [place] [address] + NICHOLS, JANEL Next of Kin [address] [place] [address] + NICHOLS, JANEL Next of Kin [address] [place] [address] + Care Team Providers Care Bible Teacher Name Role Phone ZHENG , DR NAZARIO Mock Primary Care Unavailabl e ZHENG DO, DR NAZARIO Mock Attending Unavailashley AYOUB MD, DR MARSH Consulting Unavailable KIEL SUNG, CT Primary Care Unavailable OWFINN DO, DR TEE Baron Attending Unavailabl e ZHENG DO, DR NAZARIO Mock Primary Care Unavailabl e ZHENG DO, DR NAZARIO Mock Attending Unavailabl e KIEL SUNG, CT Primary Care Unavailable BRETT OSCAR MD Attending Unavailable KIEL SUNG, CT Primary Care Unavailable ADDISON DYKES MD Attending Unavailable KIEL SUNG, CT Primary Care Unavailable ADDISON DYKES MD Attending Unavailable CT DYSON DO Primary Care Unavailable KIEL SUNG, CT Attending Unavailable ELAINE GREEN MD Consulting Unavailable KIEL SUNG, [place] Primary Care Unavailable RAYMUNDO CORNELL DO Attending Unavailable DELON GUERRA, DR ALEJANDRO Mock Admitting Unavailable EDWARD GRANADOS MD Consulting Unavailable DR SALMA AYOUB MD Admitting Unavailable SKINNY GONG MD Consulting Unavailable KIEL , [place] Primary Care Unavailable CARMELITA DOMINGO MD Attending Unavailable BRETT OSCAR MD Consulting Unavailable SAROJ PA-C, IVETTE Consulting Unavaila omar ZAZUETA PA-C, LADAN Consulting Unavailashley JAMES MD, MENDY Richards Consulting UnavailPAT Baca Consulting Unavailable LEO BLACK MD Consulting Unavailable CARMELITA DOMINGO MD Consulting Unavailable KIEL DO, CT Primary Care Unavailable CARMELITA DOMINGO MD Attending Unavailable KATHY PHARMACOEPIDEMIOLOGIST-CLINICAL DATA ABSTRACTOR, DENISE Attending Un available [facility], [place] Primary Care Unavailable MINDY PHARMACOEPIDEMIOLOGIST-SENIOR LEAD DEVELOPER, SHLOMO Attending [facility], [place] Primary Care Unavailable PROBLEMS DATE TYPE CONDITION / CODE ATTENDING STATUS [facility] 06/27/2025 Final Diagnosis (Discharge) Type 2 diabetes mellitus without complications / E11.9(ICD-10) DR NAZARIO CALZADA DO [facility] 06/27/2025 Unknown Type 2 diabetes mellitus without complications / E11.9(ICD-10) DR NAZARIO CALZADA DO [facility] 02/17/2025 Final Diagnosis (Discharge) Hypertensive heart and chronic kidney disease with heart failure and stage 1 through stage 4 chronic kidney disease, or unspecified chronic kidney disease / I13.0(ICD-10) [facility] 02/17/2025 Final Diagnosis (Discharge) Acute on chronic systolic (congestive) heart failure / I50.23(ICD-10) [facility] 02/17/2025 Final Diagnosis (Discharge) Chronic kidney disease, stage 4 (severe) / N18.4(ICD-10) [facility] 02/17/2025 Final Diagnosis (Discharge) Hypertensive emergency / I16.1(ICD-10) [facility] 02/17/2025 Final Diagnosis (Discharge) Shortness of breath / R06.02(ICD-10) [facility] 02/17/2025 Final Diagnosis (Discharge) Atherosclerotic heart disease of [place] coronary artery without angina pectoris / I25.10(ICD-10) [facility] 02/17/2025 Final Diagnosis (Discharge) Presence of aortocoronary bypass graft / Z95.1(ICD-10) [facility] 02/17/2025 Final Diagnosis (Discharge) Chronic obstructive pulmonary disease, unspecified / J44.9(ICD-10) [facility] MAIN PROCEDURES No Procedure Records Found RESULTS PSA Collected: 06/24/2025 10:40 AM Status: F Source: [facility] TYPE CODE TESTS RESULT OUT OF RANGE REFERENCE UNITS LAB PSA(LOINC) Prostate Specific Antigen 0.26 0.00-4.00 ng/mL Performed By: #### PSA #### [address] [address] LIPID Collected: 04/19/2025 8:30 AM Status: F Source: [facility] TYPE CODE TESTS RESULT OUT OF RANGE REFERENCE UNITS LAB CHOL(LOINC) Cholesterol 136 0-200 mg/dL Result Comment: Cholesterol Reference Interval: Less than 200 Desirable 200-239 Borderline high risk 240 and above High risk LAB TRIG(LOINC) Triglycerides 122 0-150 mg/dL Result Comment: Triglyceride Reference Interval: Less than 150 Normal 150-199 Borderline high risk 200-499 High risk 500 or higher Very high risk LAB HD(LOINC) HDL Cholesterol 38 Low 40-60 mg/dL LAB LDL(LOINC) LDL Cholesterol 74 0-130 mg/dL Performed By: #### LIPID ### # [address] [id number] BMP Collected: 02/20/2025 8:13 AM Status: F Source: [facility] TYPE CODE TESTS RESULT OUT OF RANGE REFERENCE UNITS LAB GLU(LOINC) Glucose Level 138 High 82-115 mg/dL LAB NA(LOINC) Sodium Level 138 136-145 mEq/L LAB K(LOINC) Potassium Level 5.0 3.5-5.0 mEq/L LAB CL(LOINC) Chloride 101 98-110 mEq/L LAB CO2(LOINC) CO2 28 22-32 mEq/L LAB EBAL(LOINC) Electrolyte Balance 9.0 4.0-15.0 mEq/L LAB BUN(LOINC) BUN 31.0 High 8.0-22.0 mg/dL LAB CRE(LOINC) Creatinine Lvl (s) 4.01 High 0.60-1.40 mg/dL Result Comment: Testing perf ormed on [employer] analyzer using enzymatic creatinine methodology. LAB BC(LOINC) BUN/Creatinine Ratio 7.7 Low 10.0-22.0 ratio LAB CA(LOINC) Calcium Lvl 9.5 8.7-10.4 mg/dL Performed By: #### BMP, CBC, GFR, ADIFF, ANEU #### [address] [address] .GFR Collected: 02/20/2025 8:13 AM Status: F Source: [facility] TYPE CODE TESTS RESULT OUT OF RANGE REFERENCE UNITS LAB eGFR(LOINC) Estimated Glomerular Filtration Rate 16 ml/min/1. 73sqm Result Comment: Stages of Chronic Kidney Disease [...] calculate the eGFR results. Performed By: #### BMP, CBC, GFR, ADIFF, ANEU #### [place] [id number] CBC Collected: 8:13 AM Status: F Source: [facility] TYPE CODE TESTS RESULT OUT OF RANGE REFERENCE UNITS LAB WBC(LOINC) WBC 6.4 4.5-10.8 10 3/mcL LAB RBCCT(LOINC) RBC 4.78 4.50-6.00 10 6/mcL LAB HGB(LOINC) Hgb 12.8 Low 13.0-17.5 G/dL LAB HCT(LOINC) Hct 39.1 Low 40.0-52.0 % LAB MCV(LOINC) MCV 81.9 81.0-100.0 fL LAB MCH(LOINC) MCH 26.8 Low 27.0-33.0 pg LAB MCHC(LOINC) MCHC 32.7 32.0-36.0 G/dL LAB RDW(LOINC) RDW 15.1 11.5-15.5 % LAB PLT(LOINC) Platelet 167 150-450 10 3/mcL LAB MPV(LOINC) MPV 7.5 6.4-10.5 fL Performed By: #### BMP, CBC, GFR, ADIFF, ANEU #### [address] [address] .AUTO DIFF Collected: 02/20/2025 8:13 AM Status: F Source: [facility] TYPE CODE TESTS RESULT OUT OF RANGE REFERENCE UNITS LAB SEFERINO(LOINC) Neutrophil % 57.9 50.0-75.0 % LAB LYM(LOINC) Lymphocyte % 26.9 20.0-40.0 % LAB MON(LOINC) Monocyte % 7.6 2.0-13.0 % LAB EO(LOINC) Eosinophil % 6.9 High 0.0-6.0 % LAB BAS(LOINC) Basophil % 0.7 0.0-2.5 % LAB ABLYM(LOINC) Lymphocyte, Absolute 1.7 0.9-4.3 10 3/mcL LAB WILNER(LOINC) Monocyte, Absolute 0.5 0.1-1.4 10 3/mcL LAB AEOS(LOINC) Eosinophil, Absolute 0.4 0.0-0.7 10 3/mcL LAB ABAS(LOINC) Basophil, Absolute 0.0 0.0-0.3 10 3/mcL Performed By: #### BMP, CBC, GFR, ADIFF, ANEU #### [address] [address] .NEUABS Collected: 8:13 AM Status: F Source: [facility] TYPE CODE TESTS RESULT OUT OF RANGE REFERENCE UNITS LAB ANEU(LOINC) Neutrophil, Absolute 3.7 2.3-8.1 10 3/mcL Performed By: #### BMP, CBC, GFR, ADIFF, ANEU #### [address] [address] HBSAG Collected: 03/26/202 5 4:46 PM Status: F Source: [facility] TYPE CODE TESTS RESULT OUT OF RANGE REFERENCE UNITS LAB HBSAG(LOINC) Hep B Surf Ag Non-Reactive Non-Reactive Performed By: #### HBSAG ### # [address] [address] RFP Collected: 02/19/2025 8:14 AM Status: F Source: [facility] TYPE CODE TESTS RESULT OUT OF RANGE REFERENCE UNITS LAB GLU(LOINC) Glucose Level 110 82-115 mg/dL LAB NA(LOINC) Sodium Level 140 136-145 mEq/L LAB K(LOINC) Potassium Level 4.8 3.5-5.0 mEq/L LAB CL(LOINC) Chloride 106 98-110 mEq/L LAB CO2(LOINC) CO2 27 22-32 mEq/L LAB EBAL(LOINC) Electrolyte Balance 7.0 4.0-15.0 mEq/L LAB BUN(LOINC) BUN 35.0 High 8.0-22.0 mg/dL LAB CRE(LOINC) Creatinine Lvl (s) 4.28 High 0.60-1.40 mg/dL Result Comment: Testing perf ormed on [employer] analyzer using enzymatic creatinine methodology. LAB BC(LOINC) BUN/Creatinine Ratio 8.2 Low 10.0-22.0 ratio LAB CA(LOINC) Calcium Lvl 9.5 8.7-10.4 mg/dL LAB PHOS(LOINC) Phosphorus 4.8 2.4-5.1 mg/dL Result Comment: Note - New Reference Range in effect 20 LAB ALB(LOINC) Albumin Level 3.7 3.2-4.8 G/dL Performed By: #### RFP, GFR #### [address] [address] .GFR Collected: 02/19/2025 8:14 AM Status: F Source: [facility] TYPE CODE TESTS RESULT OUT OF RANGE REFERENCE UNITS LAB eGFR(LOINC) Estimated Glomerular Filtration Rate 15 ml/min/1. 73sqm Result Comment: Stages of Chronic Kidney Disease [...] calculate the eGFR results. Performed By: #### RFP, GFR #### [place] [address] HBSAG Collected: 2:36 PM Status: F Source: [facility] TYPE CODE TESTS RESULT OUT OF RANGE REFERENCE UNITS LAB HBSAG(LOINC) Hep B Surf Ag Non-Reactive Non-Reactive Performed By: #### HBSAG ### # [place] [address] MG Collected: 02/18/2025 7:16 AM Status: F Source: [facility] TYPE CODE TESTS RESULT OUT OF RANGE REFERENCE UNITS LAB MG(LOINC) Magnesium Lvl 2.5 High 1.6-2.4 mg/dL Performed By: #### MG #### [place] [address] CBC Collected: 7:16 AM Status: F Source: [facility] TYPE CODE TESTS RESULT OUT OF RANGE REFERENCE UNITS LAB WBC(LOINC) WBC 7.4 4.5-10.8 10 3/mcL LAB RBCCT(LOINC) RBC 4.21 Low 4.50-6.00 10 6/mcL LAB HGB(LOINC) Hgb 11.5 Low 13.0-17.5 G/dL LAB HCT(LOINC) Hct 34.6 Low 40.0-52.0 % LAB MCV(LOINC) MCV 82.3 81.0-100.0 fL LAB MCH(LOINC) MCH 27.2 27.0-33.0 pg LAB MCHC(LOINC) MCHC 33.1 32.0-36.0 G/dL LAB RDW(LOINC) RDW 15.5 11.5-15.5 % LAB PLT(LOINC) Platelet 150 150-450 10 3/mcL LAB MPV(LOINC) MPV 7.2 6.4-10.5 fL Performed By: #### ADIFF, BM P, GFR, ANEU, TROPHS, CBC #### [place] [address] .AUTO DIFF Collected: 02/18/2025 7:16 AM Status: F Source: [facility] TYPE CODE TESTS RESULT OUT OF RANGE REFERENCE UNITS LAB SEFERINO(LOINC) Neutrophil % 69.0 50.0-75.0 % LAB LYM(LOINC) Lymphocyte % 19.3 Low 20.0-40.0 % LAB MON(LOINC) Monocyte % 6.9 2.0-13.0 % LAB EO(LOINC) Eosinophil % 4.3 0.0-6.0 % LAB BAS(LOINC) Basophil % 0.5 0.0-2.5 % LAB ABLYM(LOINC) Lymphocyte, Absolute 1.4 0.9-4.3 10 3/mcL LAB WILNER(LOINC) Monocyte, Absolute 0.5 0.1-1.4 10 3/mcL LAB AEOS(LOINC) Eosinophil, Absolute 0.3 0.0-0.7 10 3/mcL LAB ABAS(LOINC) Basophil, Absolute 0.0 0.0-0.3 10 3/mcL Performed By: #### ARRON, BM P, GFR, ANEU, TROPHS, CBC #### [place] [address] .NEUABS Collected: 7:16 AM Status: F Source: [facility] TYPE CODE TESTS RESULT OUT OF RANGE REFERENCE UNITS LAB ANEU(LOINC) Neutrophil, Absolute 5.1 2.3-8.1 10 3/mcL Performed By: #### ADIFF, BM P, GFR, ANEU, TROPHS, CBC #### [place] [address] BMP Collected: 02/18/2025 7:16 AM Status: F Source: [facility] TYPE CODE TESTS RESULT OUT OF RANGE REFERENCE UNITS LAB GLU(LOINC) Glucose Level 85 82-115 mg/dL LAB NA(LOINC) Sodium Level 144 136-145 mEq/L LAB K(LOINC) Potassium Level 4.2 3.5-5.0 mEq/L LAB CL(LOINC) Chloride 110 98-110 mEq/L LAB CO2(LOINC) CO2 28 22-32 mEq/L LAB EBAL(LOINC) Electrolyte Balance 6.0 4.0-15.0 mEq/L LAB BUN(LOINC) BUN 56.0 High 8.0-22.0 mg/dL LAB CRE(LOINC) Creatinine Lvl (s) 5.69 High 0.60-1.40 mg/dL Result Comment: Testing perf ormed on [employer] analyzer using enzymatic creatinine methodology. LAB BC(LOINC) BUN/Creatinine Ratio 9.8 Low 10.0-22.0 ratio LAB CA(LOINC) Calcium Lvl 9.0 8.7-10.4 mg/dL Performed By: #### ADIFF, BM P, GFR, ANEU, TROPHS, CBC #### [address] [address] .GFR Collected: 02/18/2025 7:16 AM Status: F Source: [facility] TYPE CODE TESTS RESULT OUT OF RANGE REFERENCE UNITS LAB eGFR(LOINC) Estimated Glomerular Filtration Rate 10 ml/min/1. 73sqm Result Comment: Stages of Chronic Kidney Disease [...] calculate the eGFR results. Performed By: #### ADIFF, BM P, GFR, ANEU, TROPHS, CBC #### [address] [address] TROPHS Collected: 02/18/2025 7:16 AM Status: F Source: [facility] TYPE CODE TESTS RESULT OUT OF RANGE REFERENCE UNITS LAB HSTROP(LOINC) High Sensitivity Troponin I 174 High 0-54 ng/L Result Comment: High Sensitive Troponin I Reference Ranges: Female: 0-34 ng/L Male: 0-54 ng/L Testing performed on [employer] IM analyzer using direct chemiluminescent technology. Performed By: #### ADIFF, BM P, GFR, ANEU, TROPHS, CBC #### [place] [address] TROPHS Collected: 02/18/2025 12:24 AM Status: F Source: [facility] TYPE CODE TESTS RESULT OUT OF RANGE REFERENCE UNITS LAB HSTROP(LOINC) High Sensitivity Troponin I 180 High 0-54 ng/L Result Comment: High Sensitive Troponin I Reference Ranges: Female: 0-34 ng/L Male: 0-54 ng/L Testing performed on [employer] IM analyzer using direct chemiluminescent technology. Performed By: #### TROPHS ## ## [place] [address] CBC Collected: 8:57 PM Status: F Source: [facility] TYPE CODE TESTS RESULT OUT OF RANGE REFERENCE UNITS LAB WBC(LOINC) WBC 7.2 4.5-10.8 10 3/mcL LAB RBCCT(LOINC) RBC 4.37 Low 4.50-6.00 10 6/mcL LAB HGB(LOINC) Hgb 11.9 Low 13.0-17.5 G/dL LAB HCT(LOINC) Hct 35.6 Low 40.0-52.0 % LAB MCV(LOINC) MCV 81.4 81.0-100.0 fL LAB MCH(LOINC) MCH 27.2 27.0-33.0 pg LAB MCHC(LOINC) MCHC 33.4 32.0-36.0 G/dL LAB RDW(LOINC) RDW 15.1 11.5-15.5 % LAB PLT(LOINC) Platelet 160 150-450 10 3/mcL LAB MPV(LOINC) MPV 7.4 6.4-10.5 fL Performed By: #### CMP, CBC, PBNP, ANEU, MDW, TROPHS, GFR, ADIFF #### [place] [address] .AUTO DIFF Collected: 02/17/2025 8:57 PM Status: F Source: [facility] TYPE CODE TESTS RESULT OUT OF RANGE REFERENCE UNITS LAB SEFERINO(LOINC) Neutrophil % 66.1 50.0-75.0 % LAB LYM(LOINC) Lymphocyte % 20.9 20.0-40.0 % LAB MON(LOINC) Monocyte % 6.8 2.0-13.0 % LAB EO(LOINC) Eosinophil % 5.6 0.0-6.0 % LAB BAS(LOINC) Basophil % 0.6 0.0-2.5 % LAB ABLYM(LOINC) Lymphocyte, Absolute 1.5 0.9-4.3 10 3/mcL LAB WILNER(LOINC) Monocyte, Absolute 0.5 0.1-1.4 10 3/mcL LAB AEOS(LOINC) Eosinophil, Absolute 0.4 0.0-0.7 10 3/mcL LAB ABAS(LOINC) Basophil, Absolute 0.0 0.0-0.3 10 3/mcL Performed By: #### CMP, CBC, PBNP, ANEU, MDW, TROPHS, GFR, ADIFF #### [place] [address] .NEUABS Collected: 8:57 PM Status: F Source: [facility] TYPE CODE TESTS RESULT OUT OF RANGE REFERENCE UNITS LAB ANEU(LOINC) Neutrophil, Absolute 4.8 2.3-8.1 10 3/mcL Performed By: #### CMP, CBC, PBNP, ANEU, MDW, TROPHS, GFR, ADIFF #### [place] [address] .MDW Collected: 02/17/2025 8:57 PM Status: F Source: [facility] TYPE CODE TESTS RESULT OUT OF RANGE REFERENCE UNITS LAB MDW(LOINC) Monocyte Distribution Width 16.99 0.00-20.00 Result Comment: For ED adult patients suspected of sepsis, MDW<=20.0 does not rule out sepsis or risk of sepsis Performed By: #### CMP, CBC, PBNP, ANEU, MDW, TROPHS, GFR, ADIFF #### [place] [address] TROPHS Collected: 02/17/2025 8:57 PM Status: F Source: [facility] TYPE CODE TESTS RESULT OUT OF RANGE REFERENCE UNITS LAB HSTROP(LOINC) High Sensitivity Troponin I 98 High 0-54 ng/L Result Comment: High Sensitive Troponin I Reference Ranges: Female: 0-34 ng/L Male: 0-54 ng/L Testing performed on [employer] IM analyzer using direct chemiluminescent technology. Performed By: #### CMP, CBC, PBNP, ANEU, MDW, TROPHS, GFR, ADIFF #### [facility] [address] [place] [address] CMP Collected: 02/17/2025 8:57 PM Status: F Source: [facility] TYPE CODE TESTS RESULT OUT OF RANGE REFERENCE UNITS LAB GLU(LOINC) Glucose Level 170 High 82-115 mg/dL LAB NA(LOINC) Sodium Level 142 136-145 mEq/L LAB K(LOINC) Potassium Level 4.4 3.5-5.0 mEq/L LAB CL(LOINC) Chloride 107 98-110 mEq/L LAB CO2(LOINC) CO2 27 22-32 mEq/L LAB EBAL(LOINC) Electrolyte Balance 8.0 4.0-15.0 mEq/L LAB BUN(LOINC) BUN 58.0 High 8.0-22.0 mg/dL LAB CRE(LOINC) Creatinine Lvl (s) 5.70 High 0.60-1.40 mg/dL Result Comment: Testing perf ormed on [employer] CH analyzer using enzymatic creatinine methodology. LAB BC(LOINC) BUN/Creatinine Ratio 10.2 10.0-22.0 ratio LAB CA(LOINC) Calcium Lvl 9.0 8.7-10.4 mg/dL LAB PROT(LOINC) Total Protein 6.8 5.7-8.2 G/dL LAB ALB(LOINC) Albumin Level 3.6 3.2-4.8 G/dL LAB GLB(LOINC) Globulin 3.2 1.5-3.8 G/dL LAB AG(LOINC) A/G Ratio 1.1 0.9-1.6 ratio LAB BILT(LOINC) Bili Total 0.20 0.20-1.20 mg/dL Result Comment: Use of this assay is not recommended for patients undergoing treatment with eltrombopag due to the potential for falsely elevated results. LAB AP(LOINC) Alk Phos 71 38-126 U/L LAB AST(LOINC) AST/SGOT 21 8-34 U/L LAB ALT(LOINC) ALT/SGPT 15 12-55 U/L Performed By: #### CMP, CBC, PBNP, ANEU, MDW, TROPHS, GFR, ADIFF #### [address] [address] PBNP Collected: 02/17/2025 8:57 PM Status: F Source: [facility] TYPE CODE TESTS RESULT OUT OF RANGE REFERENCE UNITS LAB PBNP(LOINC) N-Terminal proBNP [address] High 0-900 pg/mL Performed By: #### CMP, CBC, PBNP, ANEU, MDW, TROPHS, GFR, ADIFF #### [address] [address] .GFR Collected: 02/17/2025 8:57 PM Status: F Source: [facility] MA[facility] TYPE CODE TESTS RESULT OUT OF RANGE REFERENCE UNITS LAB eGFR(LOINC) Estimated Glomerular Filtration Rate 10 ml/min/1. 73sqm Result Comment: Stages of Chronic Kidney Disease [...] calculate the eGFR results. Performed By: #### CMP, CBC, PBNP, ANEU, MDW, TROPHS, GFR, ADIFF #### [address] [address] XR CHEST 1 VIEW Observed: 02/17/2025 8:40 PM Status: F Source: [facility] MAIN ORIGINAL EXAMINATION: ONE XRAY VIEW OF THE [...] 02/17/2025 8:52:12 PM Ordering Provider: EMILY HERRON CBC Collected: 4:09 PM Status: F Source: [facility] TYPE CODE TESTS RESULT OUT OF RANGE REFERENCE UNITS LAB WBC(LOINC) WBC 6.4 4.5-10.8 10 3/mcL LAB RBCCT(LOINC) RBC 4.19 Low 4.50-6.00 10 6/mcL LAB HGB(LOINC) Hgb 11.3 Low 13.0-17.5 G/dL LAB HCT(LOINC) Hct 34.0 Low 40.0-52.0 % LAB MCV(LOINC) MCV 81.0 81.0-100.0 fL LAB MCH(LOINC) MCH 27.0 27.0-33.0 pg LAB MCHC(LOINC) MCHC 33.3 32.0-36.0 G/dL LAB RDW(LOINC) RDW 14.9 11.5-15.5 % LAB PLT(LOINC) Platelet 167 150-450 10 3/mcL LAB MPV(LOINC) MPV 7.6 6.4-10.5 fL Performed By: #### PTH #### [address] [address] #### FES, RFP, CBC, ADIFF, GFR, ANEU, URIC #### [place] [id number] [place], [place] [address] .AUTO DIFF Collected: 02/11/2025 4:09 PM Status: F Source: [facility] TYPE CODE TESTS RESULT OUT OF RANGE REFERENCE UNITS LAB SEFERINO(LOINC) Neutrophil % 58.9 50.0-75.0 % LAB LYM(LOINC) Lymphocyte % 26.0 20.0-40.0 % LAB MON(LOINC) Monocyte % 8.1 2.0-13.0 % LAB EO(LOINC) Eosinophil % 6.1 0.0-7.0 % LAB BAS(LOINC) Basophil % 0.9 0.0-2.5 % LAB ABLYM(LOINC) Lymphocyte, Absolute 1.7 0.9-4.3 10 3/mcL LAB WILNER(LOINC) Monocyte, Absolute 0.5 0.1-1.4 10 3/mcL LAB AEOS(LOINC) Eosinophil, Absolute 0.4 0.0-0.7 10 3/mcL LAB ABAS(LOINC) Basophil, Absolute 0.1 0.0-0.2 10 3/mcL Performed By: #### PTH #### [place] [address] #### FES, RFP, CBC, ADIFF, GFR, ANEU, URIC #### [address] [address] .NEUABS Collected: 4:09 PM Status: F Source: [facility] TYPE CODE TESTS RESULT OUT OF RANGE REFERENCE UNITS LAB ANEU(LOINC) Neutrophil, Absolute 3.8 2.3-8.1 10 3/mcL Performed By: #### PTH #### [place] [address] #### FES, RFP, CBC, ADIFF, GFR, ANEU, URIC #### [address] [address] URIC Collected: 02/11/2025 4:09 PM Status: F Source: [facility] TYPE CODE TESTS RESULT OUT OF RANGE REFERENCE UNITS LAB URIC(LOINC) Uric Acid Lvl 7.6 High 3.5-7.2 mg/dL Performed By: #### PTH #### [place] [address] #### FES, RFP, CBC, ADIFF, GFR, ANEU, URIC #### [address] [address] RFP Collected: 02/11/2025 4:09 PM Status: F Source: [facility] TYPE CODE TESTS RESULT OUT OF RANGE REFERENCE UNITS LAB GLU(LOINC) Glucose Level 123 High 80-115 mg/dL LAB NA(LOINC) Sodium Level 139 136-145 mmol/L LAB K(LOINC) Potassium Level 5.2 High 3.5-5.1 mmol/L LAB CL(LOINC) Chloride 104 98-107 mmol/L LAB CO2(LOINC) CO2 25 23-31 mmol/L LAB EBAL(LOINC) Electrolyte Balance 10.0 4.0-15.0 mEq/L LAB BUN(LOINC) BUN 61 High 7-18 mg/dL LAB CRE(LOINC) Creatinine Lvl (s) 5.87 High 0.70-1.30 mg/dL Result Comment: Testing perf ormed on [employer] Dimension EXL analyzer using a modified kinetic Olivia technique. LAB BC(LOINC) BUN/Creatinine Ratio 10 7-27 ratio LAB CA(LOINC) Calcium Lvl 8.6 8.4-10.2 mg/dL LAB PHOS(LOINC) Phosphorus 6.6 High 2.3-4.1 mg/dL LAB ALB(LOINC) Albumin Level 3.3 Low 3.4-4.8 G/dL Performed By: #### PTH #### [address] [address] #### FES, RFP, CBC, ADIFF, GFR, ANEU, URIC #### [address] [address] .GFR Collected: 02/11/2025 4:09 PM Status: F Source: [facility] TYPE CODE TESTS RESULT OUT OF RANGE REFERENCE UNITS LAB eGFR(LOINC) Estimated Glomerular Filtration Rate 10 ml/min/1. 73sqm Result Comment: Stages of Chronic Kidney Disease [...] calculate the eGFR results. Performed By: #### PTH #### [address] [address] #### FES, RFP, CBC, ADIFF, GFR, ANEU, URIC #### [id number] [place], [place] [address] FES Collected: 4:09 PM Status: F Source: [facility] TYPE CODE TESTS RESULT OUT OF RANGE REFERENCE UNITS LAB FE(LOINC) Iron 57 Low 65-175 mcg/dL LAB IBC(LOINC) TIBC 223 Low 250-450 mcg/dL LAB FESAT(LOINC) Iron Sat 26 % Performed By: #### PTH #### [address] [address] #### FES, RFP, CBC, ADIFF, GFR, ANEU, URIC #### [id number] [place], [place] [address] PTH Collected: 4:09 PM Status: F Source: [facility] TYPE CODE TESTS RESULT OUT OF RANGE REFERENCE UNITS LAB PTH(LOINC) PTH, Intact 232.2 High 18.5-88.0 pg/mL Performed By: #### PTH #### [address] [address] #### FES, RFP, CBC, ADIFF, GFR, ANEU, URIC #### [id number] [place], [place] [address] XR CHEST 2 VIEWS Observed: 12/19/2024 9:45 AM Status: F Source: [facility] ORIGINAL EXAMINATION: TWO XRAY VIEWS OF THE [...] the resident's findings and interpretation. Interpreted by: Dez Bowman MD Preliminary Report By: Yoni Mendiola MD Electronically signed By Dez Bowman MD Dictated Date: 12/19/2024 4:06:47 PM Prelim Date: 12/19/2024 4:11:06 PM Sign Date: 12/19/2024 4:11:06 PM Ordering Provider: SHLOMO GUILLEN XR CHEST 2 VIEWS Observed: 11/22/2024 8:00 AM Status: F Source: [facility] ORIGINAL EXAMINATION: TWO XRAY VIEWS OF THE [...] effusion and left basilar atelectasis. Interpreted by: Dez Bowman MD Preliminary Report By: Dez Bowman MD Electronically signed By Dez Bowman MD Dictated Date: 11/23/2024 6:19:35 PM Prelim Date: 11/23/2024 6:20:31 PM Sign Date: 11/23/2024 6:20:31 PM Ordering Provider: SHLOMO GUILLEN BMP Collected: 11/22/2024 7:52 AM Status: F Source: [facility] TYPE CODE TESTS RESULT OUT OF RANGE REFERENCE UNITS LAB GLU(LOINC) Glucose Level 243 High 82-115 mg/dL LAB NA(LOINC) Sodium Level 139 136-145 mEq/L LAB K(LOINC) Potassium Level 5.4 High 3.5-5.0 mEq/L LAB CL(LOINC) Chloride 102 98-110 mEq/L LAB CO2(LOINC) CO2 33 High 22-32 mEq/L LAB EBAL(LOINC) Electrolyte Balance 4.0 4.0-15.0 mEq/L LAB BUN(LOINC) BUN 39.0 High 8.0-22.0 mg/dL LAB CRE(LOINC) Creatinine Lvl (s) 3.63 High 0.60-1.40 mg/dL Result Comment: Testing perf ormed on nxtControl analyzer using enzymatic creatinine methodology. LAB BC(LOINC) BUN/Creatinine Ratio 10.7 10.0-22.0 ratio LAB CA(LOINC) Calcium Lvl 9.0 8.7-10.4 mg/dL Performed By: #### GFR, LORENZO #### [address] [address] .GFR Collected: 7:52 AM Status: F Source: [facility] MAIN TYPE CODE TESTS RESULT OUT OF RANGE REFERENCE UNITS LAB [facility] GFR 21 ml/min/1. 73sqm Result Comment: GFR Population mean for , [...] Disease: Less than 15 mL/min/1.73 square meters LAB GFRNO(LOINC) GFR Non- 17 ml/min/1. 73sqm Result Comment: GFR Population mean for , [...] 15 mL/min/1.73 square meters Performed By: #### GFR, LORENZO #### [address] [address] XR CHEST 1 VIEW Observed: 11/12/2024 4:57 AM Status: F Source: [facility] MAIN ORIGINAL EXAMINATION: ONE XRAY VIEW OF THE [...] 11/12/2024 5:51:15 AM Ordering Provider: SARA GUTIERREZ CBC Collected: 3:43 AM Status: F Source: [facility] MAIN TYPE CODE TESTS RESULT OUT OF RANGE REFERENCE UNITS LAB WBC(LOINC) WBC 6.8 4.5-10.8 10 3/mcL LAB RBCCT(LOINC) RBC 3.31 Low 4.50-6.00 10 6/mcL LAB HGB(LOINC) Hgb 9.6 Low 13.0-17.5 G/dL LAB HCT(LOINC) Hct 28.1 Low 40.0-52.0 % LAB MCV(LOINC) MCV 84.8 81.0-100.0 fL LAB MCH(LOINC) MCH 29.0 27.0-33.0 pg LAB MCHC(LOINC) MCHC 34.2 32.0-36.0 G/dL LAB RDW(LOINC) RDW 14.9 11.5-15.5 % LAB PLT(LOINC) Platelet 222 150-450 10 3/mcL LAB MPV(LOINC) MPV 7.2 6.4-10.5 fL Performed By: #### MG, BMP, GFR, ADIFF, ANEU, CBC #### [place] [address] .AUTO DIFF Collected: 11/12/2024 3:43 AM Status: F Source: [facility] MAIN TYPE CODE TESTS RESULT OUT OF RANGE REFERENCE UNITS LAB SEFERINO(LOINC) Neutrophil % 68.6 50.0-75.0 % LAB LYM(LOINC) Lymphocyte % 15.6 Low 20.0-40.0 % LAB MON(LOINC) Monocyte % 10.3 2.0-13.0 % LAB EO(LOINC) Eosinophil % 4.6 0.0-6.0 % LAB BAS(LOINC) Basophil % 0.9 0.0-2.5 % LAB ABLYM(LOINC) Lymphocyte, Absolute 1.1 0.9-4.3 10 3/mcL LAB WILNER(LOINC) Monocyte, Absolute 0.7 0.1-1.4 10 3/mcL LAB AEOS(LOINC) Eosinophil, Absolute 0.3 0.0-0.7 10 3/mcL LAB ABAS(LOINC) Basophil, Absolute 0.1 0.0-0.3 10 3/mcL Performed By: #### MG, BMP, GFR, ADIFF, ANEU, CBC #### [place] [address] .NEUABS Collected: 3:43 AM Status: F Source: [facility] MAIN TYPE CODE TESTS RESULT OUT OF RANGE REFERENCE UNITS LAB ANEU(LOINC) Neutrophil, Absolute 4.7 2.3-8.1 10 3/mcL Performed By: #### MG, BMP, GFR, ADIFF, ANEU, CBC #### [place] [address] BMP Collected: 11/12/2024 3:43 AM Status: F Source: [facility] MAIN TYPE CODE TESTS RESULT OUT OF RANGE REFERENCE UNITS LAB GLU(LOINC) Glucose Level 123 High 82-115 mg/dL LAB NA(LOINC) Sodium Level 137 136-145 mEq/L LAB K(LOINC) Potassium Level 4.2 3.5-5.0 mEq/L LAB CL(LOINC) Chloride 103 98-110 mEq/L LAB CO2(LOINC) CO2 30 22-32 mEq/L LAB EBAL(LOINC) Electrolyte Balance 4.0 4.0-15.0 mEq/L LAB BUN(LOINC) BUN 32.0 High 8.0-22.0 mg/dL LAB CRE(LOINC) Creatinine Lvl (s) 3.60 High 0.60-1.40 mg/dL Result Comment: Testing perf ormed on nxtControl analyzer using enzymatic creatinine methodology. LAB BC(LOINC) BUN/Creatinine Ratio 8.9 Low 10.0-22.0 ratio LAB CA(LOINC) Calcium Lvl 9.3 8.7-10.4 mg/dL Performed By: #### MG, BMP, GFR, ADIFF, ANEU, CBC #### [address] [address] MG Collected: 11/12/2024 3:43 AM Status: F Source: [facility] MAIN TYPE CODE TESTS RESULT OUT OF RANGE REFERENCE UNITS LAB MG(LOINC) Magnesium Lvl 2.2 1.6-2.4 mg/dL Performed By: #### MG, BMP, GFR, ADIFF, ANEU, CBC #### [address] [address] .GFR Collected: 3:43 AM Status: F Source: [facility] MAIN TYPE CODE TESTS RESULT OUT OF RANGE REFERENCE UNITS LAB GFRAA(LOINC) GFR 21 ml/min/1. 73sqm Result Comment: GFR Population mean for , [...] Disease: Less than 15 mL/min/1.73 square meters LAB GFRNO(LOINC) GFR Non- 17 ml/min/1. 73sqm Result Comment: GFR Population mean for , [...] 15 mL/min/1.73 square meters Performed By: #### MG, BMP, GFR, ADIFF, ANEU, CBC #### [facility] [address] [place] [address] IR TUNNELED HD Observed: 11/11/2024 10:00 AM Status: F Source: [facility] MAIN ORIGINAL PROCEDURE: CONVERSION OF TEMPORARY TO TUNNELED HEMODIALYSIS CATHETER WITH ATTYHYTBVHO08/16/2024 2:33 pm CLINICAL STATEMENT: CKD COMPARISON: Temporary [...] atrium. The procedure was performed by Ivette Mckinney, Physician Fleet Sales Associate. I concur with the contents of the report. Interpreted by: Elaine Alcala MD Preliminary Report By: Ivette Mckinney PA-C Electronically signed By Elaine Alcala MD Dictated Date: 11/11/2024 5:29:00 PM Prelim Date: 11/11/2024 5:34:45 PM Sign Date: 11/11/2024 7:57:16 PM Ordering Provider: EDWARD GRANADOS MG Collected: 11/11/2024 5:10 AM Status: F Source: [facility] MAIN TYPE CODE TESTS RESULT OUT OF RANGE REFERENCE UNITS LAB MG(LOINC) Magnesium Lvl 2.5 High 1.6-2.4 mg/dL Performed By: #### GFR, CMP, MG #### [place] [address] CMP Collected: 11/11/2024 5:10 AM Status: F Source: [facility] MAIN TYPE CODE TESTS RESULT OUT OF RANGE REFERENCE UNITS LAB GLU(LOINC) Glucose Level 144 High 82-115 mg/dL LAB NA(LOINC) Sodium Level 133 Low 136-145 mEq/L LAB K(LOINC) Potassium Level 4.2 3.5-5.0 mEq/L LAB CL(LOINC) Chloride 102 98-110 mEq/L LAB CO2(LOINC) CO2 26 22-32 mEq/L LAB EBAL(LOINC) Electrolyte Balance 5.0 4.0-15.0 mEq/L LAB BUN(LOINC) BUN 51.0 High 8.0-22.0 mg/dL LAB CRE(LOINC) Creatinine Lvl (s) 4.98 High 0.60-1.40 mg/dL Result Comment: Testing perf ormed on nxtControl analyzer using enzymatic creatinine methodology. LAB BC(LOINC) BUN/Creatinine Ratio 10.2 10.0-22.0 ratio LAB CA(LOINC) Calcium Lvl 9.2 8.7-10.4 mg/dL LAB PROT(LOINC) Total Protein 5.8 5.7-8.2 G/dL LAB ALB(LOINC) Albumin Level 2.9 Low 3.2-4.8 G/dL LAB GLB(LOINC) Globulin 2.9 1.5-3.8 G/dL LAB AG(LOINC) A/G Ratio 1.0 0.9-1.6 ratio LAB BILT(LOINC) Bili Total 0.30 0.20-1.20 mg/dL Result Comment: Use of this assay is not recommended for patients undergoing treatment with eltrombopag due to the potential for falsely elevated results. LAB AP(LOINC) Alk Phos 57 38-126 U/L LAB AST(LOINC) AST/SGOT 20 8-34 U/L LAB ALT(LOINC) ALT/SGPT <7 Low 12-55 U/L Performed By: #### GFR, CMP, MG #### [place] [address] .GFR Collected: 4 5:10 AM Status: F Source: [facility] MAIN TYPE CODE TESTS RESULT OUT OF RANGE REFERENCE UNITS LAB GFRAA(LOINC) GFR 14 ml/min/1. 73sqm Result Comment: GFR Population mean for , [...] Disease: Less than 15 mL/min/1.73 square meters LAB GFRNO(LOINC) GFR Non- 12 ml/min/1. 73sqm Result Comment: GFR Population mean for , [...] 15 mL/min/1.73 square meters Performed By: #### GFR, CMP, MG #### [place] [address] XR CHEST 1 VIEW Observed: 11/11/2024 4:52 AM Status: F Source: [facility] MAIN ORIGINAL EXAMINATION: ONE XRAY VIEW OF THE [...] Date: 11/11/2024 5:51:27 AM Ordering Provider: DENISE CHAVEZ CBC Collected: 5:31 AM Status: F Source: [facility] MAIN TYPE CODE TESTS RESULT OUT OF RANGE REFERENCE UNITS LAB WBC(LOINC) WBC 7.6 4.5-10.8 10 3/mcL LAB RBCCT(LOINC) RBC 3.26 Low 4.50-6.00 10 6/mcL LAB HGB(LOINC) Hgb 9.5 Low 13.0-17.5 G/dL LAB HCT(LOINC) Hct 27.9 Low 40.0-52.0 % LAB MCV(LOINC) MCV 85.5 81.0-100.0 fL LAB MCH(LOINC) MCH 29.0 27.0-33.0 pg LAB MCHC(LOINC) MCHC 33.9 32.0-36.0 G/dL LAB RDW(LOINC) RDW 14.9 11.5-15.5 % LAB PLT(LOINC) Platelet 158 150-450 10 3/mcL LAB MPV(LOINC) MPV 8.0 6.4-10.5 fL Performed By: #### CBC, ANEU , ADIFF #### [address] [address] .AUTO DIFF Collected: 11/10/2024 5:31 AM Status: F Source: [facility] MAIN TYPE CODE TESTS RESULT OUT OF RANGE REFERENCE UNITS LAB SEFERINO(LOINC) Neutrophil % 72.6 50.0-75.0 % LAB LYM(LOINC) Lymphocyte % 14.0 Low 20.0-40.0 % LAB MON(LOINC) Monocyte % 9.5 2.0-13.0 % LAB EO(LOINC) Eosinophil % 3.4 0.0-6.0 % LAB BAS(LOINC) Basophil % 0.5 0.0-2.5 % LAB ABLYM(LOINC) Lymphocyte, Absolute 1.1 0.9-4.3 10 3/mcL LAB WILNER(LOINC) Monocyte, Absolute 0.7 0.1-1.4 10 3/mcL LAB AEOS(LOINC) Eosinophil, Absolute 0.3 0.0-0.7 10 3/mcL LAB ABAS(LOINC) Basophil, Absolute 0.0 0.0-0.3 10 3/mcL Performed By: #### CBC, ANEU , ADIFF #### [address] [address] .NEUABS Collected: 5:31 AM Status: F Source: [facility] MAIN TYPE CODE TESTS RESULT OUT OF RANGE REFERENCE UNITS LAB ANEU(LOINC) Neutrophil, Absolute 5.6 2.3-8.1 10 3/mcL Performed By: #### CBC, ANEU , ADIFF #### [address] [address] MG Collected: 11/10/2024 5:31 AM Status: F Source: [facility] MAIN TYPE CODE TESTS RESULT OUT OF RANGE REFERENCE UNITS LAB MG(LOINC) Magnesium Lvl 2.4 1.6-2.4 mg/dL Performed By: #### GFR, MG, CMP #### [address] [address] CMP Collected: 11/10/2024 5:31 AM Status: F Source: [facility] MAIN TYPE CODE TESTS RESULT OUT OF RANGE REFERENCE UNITS LAB GLU(LOINC) Glucose Level 133 High 82-115 mg/dL LAB NA(LOINC) Sodium Level 135 Low 136-145 mEq/L LAB K(LOINC) Potassium Level 4.1 3.5-5.0 mEq/L LAB CL(LOINC) Chloride 101 98-110 mEq/L LAB CO2(LOINC) CO2 26 22-32 mEq/L LAB EBAL(LOINC) Electrolyte Balance 8.0 4.0-15.0 mEq/L LAB BUN(LOINC) BUN 41.0 High 8.0-22.0 mg/dL LAB CRE(LOINC) Creatinine Lvl (s) 4.42 High 0.60-1.40 mg/dL Result Comment: Testing perf ormed on nxtControl analyzer using enzymatic creatinine methodology. LAB BC(LOINC) BUN/Creatinine Ratio 9.3 Low 10.0-22.0 ratio LAB CA(LOINC) Calcium Lvl 9.3 8.7-10.4 mg/dL LAB PROT(LOINC) Total Protein 6.1 5.7-8.2 G/dL LAB ALB(LOINC) Albumin Level 3.0 Low 3.2-4.8 G/dL LAB GLB(LOINC) Globulin 3.1 1.5-3.8 G/dL LAB AG(LOINC) A/G Ratio 1.0 0.9-1.6 ratio LAB BILT(LOINC) Bili Total 0.30 0.20-1.20 mg/dL Result Comment: Use of this assay is not recommended for patients undergoing treatment with eltrombopag due to the potential for falsely elevated results. LAB AP(LOINC) Alk Phos 60 38-126 U/L LAB AST(LOINC) AST/SGOT 18 8-34 U/L LAB ALT(LOINC) ALT/SGPT <8 Low 12-55 U/L Performed By: #### GFR, MG, CMP #### [address] [address] .GFR Collected: 4 5:31 AM Status: F Source: [facility] MAIN TYPE CODE TESTS RESULT OUT OF RANGE REFERENCE UNITS LAB GFRAA(LOINC) GFR 16 ml/min/1. 73sqm Result Comment: GFR Population mean for , [...] Disease: Less than 15 mL/min/1.73 square meters LAB GFRNO(LOINC) GFR Non- 14 ml/min/1. 73sqm Result Comment: GFR Population mean for , [...] 15 mL/min/1.73 square meters Performed By: #### GFR, MG, CMP #### [address] [place] [address] XR CHEST 2 VIEWS Observed: 11/10/2024 5:07 AM Status: F Source: [facility] MAIN ORIGINAL EXAMINATION: TWO XRAY VIEWS OF THE [...] Date: 11/10/2024 5:19:11 AM Ordering Provider: SARA GUTIERREZ XR CHEST 1 VIEW Observed: 11/09/2024 4:56 AM Status: F Source: [facility] MAIN ORIGINAL EXAMINATION: ONE XRAY VIEW OF THE [...] Date: 11/09/2024 5:58:43 AM Ordering Provider: DENISE CHAVEZ BMP Collected: 11/09/2024 4:31 AM Status: F Source: [facility] MAIN TYPE CODE TESTS RESULT OUT OF RANGE REFERENCE UNITS LAB GLU(LOINC) Glucose Level 124 High 82-115 mg/dL LAB NA(LOINC) Sodium Level 135 Low 136-145 mEq/L LAB K(LOINC) Potassium Level 4.5 3.5-5.0 mEq/L LAB CL(LOINC) Chloride 99 98-110 mEq/L LAB CO2(LOINC) CO2 27 22-32 mEq/L LAB EBAL(LOINC) Electrolyte Balance 9.0 4.0-15.0 mEq/L LAB BUN(LOINC) BUN 53.0 High 8.0-22.0 mg/dL LAB CRE(LOINC) Creatinine Lvl (s) 5.73 High 0.60-1.40 mg/dL Result Comment: Testing perf ormed on nxtControl analyzer using enzymatic creatinine methodology. LAB BC(LOINC) BUN/Creatinine Ratio 9.2 Low 10.0-22.0 ratio LAB CA(LOINC) Calcium Lvl 9.1 8.7-10.4 mg/dL Performed By: #### [id number], G FR, MG, ADIFF, HBSAB, ANAIFS, CBC, BMP, ANEU, C3C4A #### [address] [address] MG Collected: 11/09/2024 4:31 AM Status: F Source: [facility] MAIN TYPE CODE TESTS RESULT OUT OF RANGE REFERENCE UNITS LAB MG(LOINC) Magnesium Lvl 2.6 High 1.6-2.4 mg/dL Performed By: #### [id number], G FR, MG, ADIFF, HBSAB, ANAIFS, CBC, BMP, ANEU, C3C4A #### [address] [address] .GFR Collected: 4:31 AM Status: F Source: [facility] MAIN TYPE CODE TESTS RESULT OUT OF RANGE REFERENCE UNITS LAB GFRAA(LOINC) GFR 12 ml/min/1. 73sqm Result Comment: GFR Population mean for , [...] Disease: Less than 15 mL/min/1.73 square meters LAB GFRNO(LOINC) GFR Non- 10 ml/min/1. 73sqm Result Comment: GFR Population mean for , [...] 15 mL/min/1.73 square meters Performed By: #### [id number], G FR, MG, ADIFF, HBSAB, ANAIFS, CBC, BMP, ANEU, C3C4A #### [place] [address] CBC Collected: 4 4:31 AM Status: F Source: [facility] MAIN TYPE CODE TESTS RESULT OUT OF RANGE REFERENCE UNITS LAB WBC(LOINC) WBC 9.3 4.5-10.8 10 3/mcL LAB RBCCT(LOINC) RBC 3.13 Low 4.50-6.00 10 6/mcL LAB HGB(LOINC) Hgb 9.0 Low 13.0-17.5 G/dL LAB HCT(LOINC) Hct 26.6 Low 40.0-52.0 % LAB MCV(LOINC) MCV 85.0 81.0-100.0 fL LAB MCH(LOINC) MCH 28.6 27.0-33.0 pg LAB MCHC(LOINC) MCHC 33.7 32.0-36.0 G/dL LAB RDW(LOINC) RDW 14.9 11.5-15.5 % LAB PLT(LOINC) Platelet 122 Low 150-450 10 3/mcL LAB MPV(LOINC) MPV 8.4 6.4-10.5 fL Performed By: #### [id number], G FR, MG, ADIFF, HBSAB, ANAIFS, CBC, BMP, ANEU, C3C4A #### [address] [address] .AUTO DIFF Collected: 11/09/2024 4:31 AM Status: F Source: [facility] MAIN TYPE CODE TESTS RESULT OUT OF RANGE REFERENCE UNITS LAB SEFERINO(LOINC) Neutrophil % 80.4 High 50.0-75.0 % LAB LYM(LOINC) Lymphocyte % 9.7 Low 20.0-40.0 % LAB MON(LOINC) Monocyte % 7.6 2.0-13.0 % LAB EO(LOINC) Eosinophil % 1.9 0.0-6.0 % LAB BAS(LOINC) Basophil % 0.4 0.0-2.5 % LAB ABLYM(LOINC) Lymphocyte, Absolute 0.9 0.9-4.3 10 3/mcL LAB WILNER(LOINC) Monocyte, Absolute 0.7 0.1-1.4 10 3/mcL LAB AEOS(LOINC) Eosinophil, Absolute 0.2 0.0-0.7 10 3/mcL LAB ABAS(LOINC) Basophil, Absolute 0.0 0.0-0.3 10 3/mcL Performed By: #### [id number], G FR, MG, ADIFF, HBSAB, ANAIFS, CBC, BMP, ANEU, C3C4A #### [address] [address] .NEUABS Collected: 4:31 AM Status: F Source: [facility] MAIN TYPE CODE TESTS RESULT OUT OF RANGE REFERENCE UNITS LAB ANEU(LOINC) Neutrophil, Absolute 7.5 2.3-8.1 10 3/mcL Performed By: #### [id number], G FR, MG, ADIFF, HBSAB, ANAIFS, CBC, BMP, ANEU, C3C4A #### [address] [address] C3C4A Collected: 11/09/2024 4:31 AM Status: F Source: [facility] MAIN TYPE CODE TESTS RESULT OUT OF RANGE REFERENCE UNITS LAB C3A(LOINC) Complement C3A 80.0 Low 90.0-170.0 mg/ dL Result Comment: Note - New Reference Range in effect 20 LAB C4A(LOINC) Complement C4A 20.0 16.0-38.0 mg/d L Performed By: #### [id number], G FR, MG, ADIFF, HBSAB, ANAIFS, CBC, BMP, ANEU, C3C4A #### [address] [address] HBSAB Collected: 4:31 AM Status: F Source: [facility] TYPE CODE TESTS RESULT OUT OF RANGE REFERENCE UNITS LAB HBSAB(LOINC) Hep B Surf Ab <3.1 Low >=10.0 mIU/mL Result Comment: 0 to < 10.0 mIU/mL [...] WHO International Reference Preparation. Performed By: #### [id number], G FR, MG, ADIFF, HBSAB, ANAIFS, CBC, BMP, ANEU, C3C4A #### [place] [id number] [place] [address] ANAIFS Collected: 11/09/2024 4:31 AM Status: F Source: [facility] TYPE CODE TESTS RESULT OUT OF RANGE REFERENCE UNITS LAB ANASC(LOINC) Antinuclear Ab Screen Negative Negative Result Comment: Anti-nuclear antibody test is used as an aid in diagnosis of systemic autoimmune diseases. Where positive and clinically warranted, follow-up using disease-specific testing is recommended. Low positive titers are not uncommon with advanced age, certain chronic infections, and malignancies among others. Test methodology: Indirect fluorescence immunoassay (IFA) using HEp-2 cells. Performed By: [facility] [address] [place] [address] Buggy Operator: Jeff Suarez III, M.D. CLIA#: [id number] Performed By: #### [id number], G FR, MG, ADIFF, HBSAB, ANAIFS, CBC, BMP, ANEU, C3C4A #### [address] [address] PLA2R Collected: 4:31 AM Status: F Source: [facility] MAIN TYPE CODE TESTS RESULT OUT OF RANGE REFERENCE UNITS LAB [id number](LOINC) Anti-PLA2R <1.8 0.0-19.9 RU/mL Result Comment: Negative <14 .0 Borderline 14.0 - 19.9 Positive >19.9 Performed At: [facility] [id number] Vernon Elkins MD Ph:[phone] Performed By: #### [id number], G FR, MG, ADIFF, HBSAB, ANAIFS, CBC, BMP, ANEU, C3C4A #### [place] [id number] RPCUR Collected: 11/09/2024 1:28 AM Status: F Source: [facility] MAIN TYPE CODE TESTS RESULT OUT OF RANGE REFERENCE UNITS LAB CRU(LOINC) U Creatinine 95.4 mg/dL LAB PRU(LOINC) U Protein 677.1 mg/dL LAB PCUR(LOINC) U Ratio Prot/Creat 7.1 ratio Result Comment: result calcu lated by rule GL_[id number]_NOTCALC (U Protein/U Creatinine) Performed By: #### RPCUR ### # [place] [id number] XR CHEST 1 VIEW Observed: 11/08/2024 10:19 AM Status: F Source: [facility] MAIN ORIGINAL EXAMINATION: ONE XRAY VIEW OF THE [...] 11/08/2024 10:53:42 AM Ordering Provider: CARMELITA DOMINGO XR CHEST 1 VIEW Observed: 11/08/2024 5:11 AM Status: F Source: [facility] MAIN ORIGINAL EXAMINATION: ONE XRAY VIEW OF THE [...] 11/08/2024 6:13:36 AM Ordering Provider: SARA GUTIERREZ CBC Collected: 4:37 AM Status: F Source: [facility] MAIN TYPE CODE TESTS RESULT OUT OF RANGE REFERENCE UNITS LAB WBC(LOINC) WBC 9.0 4.5-10.8 10 3/mcL LAB RBCCT(LOINC) RBC 3.19 Low 4.50-6.00 10 6/mcL LAB HGB(LOINC) Hgb 9.2 Low 13.0-17.5 G/dL LAB HCT(LOINC) Hct 26.9 Low 40.0-52.0 % LAB MCV(LOINC) MCV 84.3 81.0-100.0 fL LAB MCH(LOINC) MCH 28.8 27.0-33.0 pg LAB MCHC(LOINC) MCHC 34.1 32.0-36.0 G/dL LAB RDW(LOINC) RDW 14.9 11.5-15.5 % LAB PLT(LOINC) Platelet 95 Low 150-450 10 3/mcL LAB MPV(LOINC) MPV 8.3 6.4-10.5 fL Performed By: #### CBC, ADIF F, ANEU, GFR, CMP, RFP, MG #### [place] [id number] .AUTO DIFF Collected: 11/08/2024 4:37 AM Status: F Source: [facility] MAIN TYPE CODE TESTS RESULT OUT OF RANGE REFERENCE UNITS LAB SEFERINO(LOINC) Neutrophil % 74.8 50.0-75.0 % LAB LYM(LOINC) Lymphocyte % 13.4 Low 20.0-40.0 % LAB MON(LOINC) Monocyte % 8.9 2.0-13.0 % LAB EO(LOINC) Eosinophil % 2.5 0.0-6.0 % LAB BAS(LOINC) Basophil % 0.4 0.0-2.5 % LAB ABLYM(LOINC) Lymphocyte, Absolute 1.2 0.9-4.3 10 3/mcL LAB WILNER(LOINC) Monocyte, Absolute 0.8 0.1-1.4 10 3/mcL LAB AEOS(LOINC) Eosinophil, Absolute 0.2 0.0-0.7 10 3/mcL LAB ABAS(LOINC) Basophil, Absolute 0.0 0.0-0.3 10 3/mcL Performed By: #### CBC, ADIF F, ANEU, GFR, CMP, RFP, MG #### [place] [address] .NEUABS Collected: 4:37 AM Status: F Source: [facility] MAIN TYPE CODE TESTS RESULT OUT OF RANGE REFERENCE UNITS LAB ANEU(LOINC) Neutrophil, Absolute 6.7 2.3-8.1 10 3/mcL Performed By: #### CBC, ADIF F, ANEU, GFR, CMP, RFP, MG #### [place] [address] MG Collected: 11/08/2024 4:37 AM Status: F Source: [facility] MAIN TYPE CODE TESTS RESULT OUT OF RANGE REFERENCE UNITS LAB MG(LOINC) Magnesium Lvl 2.5 High 1.6-2.4 mg/dL Performed By: #### CBC, ADIF F, ANEU, GFR, CMP, RFP, MG #### [place] [address] RFP Collected: 11/08/2024 4:37 AM Status: F Source: [facility] MAIN TYPE CODE TESTS RESULT OUT OF RANGE REFERENCE UNITS LAB GLU(LOINC) Glucose Level 153 High 82-115 mg/dL LAB NA(LOINC) Sodium Level 137 136-145 mEq/L LAB K(LOINC) Potassium Level 4.4 3.5-5.0 mEq/L LAB CL(LOINC) Chloride 102 98-110 mEq/L LAB CO2(LOINC) CO2 28 22-32 mEq/L LAB EBAL(LOINC) Electrolyte Balance 7.0 4.0-15.0 mEq/L LAB BUN(LOINC) BUN 38.0 High 8.0-22.0 mg/dL LAB CRE(LOINC) Creatinine Lvl (s) 4.62 High 0.60-1.40 mg/dL Result Comment: Testing perf ormed on nxtControl analyzer using enzymatic creatinine methodology. LAB BC(LOINC) BUN/Creatinine Ratio 8.2 Low 10.0-22.0 ratio LAB CA(LOINC) Calcium Lvl 8.9 8.7-10.4 mg/dL LAB PHOS(LOINC) Phosphorus 5.0 2.4-5.1 mg/dL Result Comment: Note - New Reference Range in effect 20 LAB ALB(LOINC) Albumin Level 3.3 3.2-4.8 G/dL Performed By: #### CBC, ADIF F, ANEU, GFR, CMP, RFP, MG #### [facility] [address] [place] [address] CMP Collected: 11/08/2024 4:37 AM Status: F Source: [facility] MAIN TYPE CODE TESTS RESULT OUT OF RANGE REFERENCE UNITS LAB GLU(LOINC) Glucose Level 153 High 82-115 mg/dL LAB NA(LOINC) Sodium Level 137 136-145 mEq/L LAB K(LOINC) Potassium Level 4.4 3.5-5.0 mEq/L LAB CL(LOINC) Chloride 102 98-110 mEq/L LAB CO2(LOINC) CO2 28 22-32 mEq/L LAB EBAL(LOINC) Electrolyte Balance 7.0 4.0-15.0 mEq/L LAB BUN(LOINC) BUN 38.0 High 8.0-22.0 mg/dL LAB CRE(LOINC) Creatinine Lvl (s) 4.62 High 0.60-1.40 mg/dL Result Comment: Testing perf ormed on nxtControl analyzer using enzymatic creatinine methodology. LAB BC(LOINC) BUN/Creatinine Ratio 8.2 Low 10.0-22.0 ratio LAB CA(LOINC) Calcium Lvl 8.9 8.7-10.4 mg/dL LAB PROT(LOINC) Total Protein 5.5 Low 5.7-8.2 G/dL LAB ALB(LOINC) Albumin Level 3.3 3.2-4.8 G/dL LAB GLB(LOINC) Globulin 2.2 1.5-3.8 G/dL LAB AG(LOINC) A/G Ratio 1.5 0.9-1.6 ratio LAB BILT(LOINC) Bili Total 0.30 0.20-1.20 mg/dL Result Comment: Use of this assay is not recommended for patients undergoing treatment with eltrombopag due to the potential for falsely elevated results. LAB AP(LOINC) Alk Phos 49 38-126 U/L LAB AST(LOINC) AST/SGOT 35 High 8-34 U/L LAB ALT(LOINC) ALT/SGPT <7 Low 12-55 U/L Performed By: #### CBC, ADIF F, ANEU, GFR, CMP, RFP, MG #### [address] [id number] .GFR Collected: 4:37 AM Status: F Source: [facility] MAIN TYPE CODE TESTS RESULT OUT OF RANGE REFERENCE UNITS LAB GFRAA(LOINC) GFR 16 ml/min/1. 73sqm Result Comment: GFR Population mean for , [...] Disease: Less than 15 mL/min/1.73 square meters LAB GFRNO(LOINC) GFR Non- 13 ml/min/1. 73sqm Result Comment: GFR Population mean for , [...] 15 mL/min/1.73 square meters Performed By: #### CBC, ADIF F, ANEU, GFR, CMP, RFP, MG #### [address] [id number] K Collected: 11/07/2024 5:43 PM Status: F Source: [facility] MAIN TYPE CODE TESTS RESULT OUT OF RANGE REFERENCE UNITS LAB K(LOINC) Potassium Level 4.1 3.5-5.0 mEq/L Performed By: #### K #### [address] [address] RBC (PRODUCT) Collected: 11/07/2024 7:39 AM Status: F Source: [facility] TYPE CODE TESTS RESULT OUT OF RANGE REFERENCE UNITS LAB RBCPR(LOINC) RBC Product Ready RBC Ready for Pickup Performed By: #### RBCP #### [address] [address] XR CHEST 1 VIEW Observed: 11/07/2024 4:57 AM Status: F Source: [facility] ORIGINAL EXAMINATION: ONE XRAY VIEW OF THE [...] Date: 11/07/2024 5:49:30 AM Ordering Provider: CARMELITA DOMINGO CBC Collected: 4:15 AM Status: F Source: [facility] MAIN TYPE CODE TESTS RESULT OUT OF RANGE REFERENCE UNITS LAB WBC(LOINC) WBC 7.7 4.5-10.8 10 3/mcL LAB RBCCT(LOINC) RBC 2.82 Low 4.50-6.00 10 6/mcL LAB HGB(LOINC) Hgb 7.8 Low 13.0-17.5 G/dL LAB HCT(LOINC) Hct 23.2 Low 40.0-52.0 % LAB MCV(LOINC) MCV 82.3 81.0-100.0 fL LAB MCH(LOINC) MCH 27.8 27.0-33.0 pg LAB MCHC(LOINC) MCHC 33.8 32.0-36.0 G/dL LAB RDW(LOINC) RDW 14.4 11.5-15.5 % LAB PLT(LOINC) Platelet 121 Low 150-450 10 3/mcL LAB MPV(LOINC) MPV 7.5 6.4-10.5 fL Performed By: #### CMP, GFR, ANEU, RFP, ADIFF, CBC, MG, APTT #### [address] [id number] .AUTO DIFF Collected: 11/07/2024 4:15 AM Status: F Source: [facility] MAIN TYPE CODE TESTS RESULT OUT OF RANGE REFERENCE UNITS LAB SEFERINO(LOINC) Neutrophil % 75.4 High 50.0-75.0 % LAB LYM(LOINC) Lymphocyte % 14.1 Low 20.0-40.0 % LAB MON(LOINC) Monocyte % 9.0 2.0-13.0 % LAB EO(LOINC) Eosinophil % 0.9 0.0-6.0 % LAB BAS(LOINC) Basophil % 0.6 0.0-2.5 % LAB ABLYM(LOINC) Lymphocyte, Absolute 1.1 0.9-4.3 10 3/mcL LAB WILNER(LOINC) Monocyte, Absolute 0.7 0.1-1.4 10 3/mcL LAB AEOS(LOINC) Eosinophil, Absolute 0.1 0.0-0.7 10 3/mcL LAB ABAS(LOINC) Basophil, Absolute 0.0 0.0-0.3 10 3/mcL Performed By: #### CMP, GFR, ANEU, RFP, ADIFF, CBC, MG, APTT #### [address] [id number] .NEUABS Collected: 4:15 AM Status: F Source: [facility] MAIN TYPE CODE TESTS RESULT OUT OF RANGE REFERENCE UNITS LAB ANEU(LOINC) Neutrophil, Absolute 5.8 2.3-8.1 10 3/mcL Performed By: #### CMP, GFR, ANEU, RFP, ADIFF, CBC, MG, APTT #### [place] [id number] APTT Collected: 4:15 AM Status: F Source: [facility] MAIN TYPE CODE TESTS RESULT OUT OF RANGE REFERENCE UNITS LAB APTT0(LOINC) APTT 26.9 25.0-35.0 seconds Result Comment: For Heparin anticoagulation therapy, the recommended therapeutic range is: 54-77 seconds (APTT Correlation with Anti-Xa therapeutic range of 0.3-0.7 units/ml). PLEASE REFERENCE THE PHARMACY PROTOCOL FOR DOSING. Performed By: #### CMP, GFR, ANEU, RFP, ADIFF, CBC, MG, APTT #### [address] [address] MG Collected: 11/07/2024 4:15 AM Status: F Source: [facility] MAIN TYPE CODE TESTS RESULT OUT OF RANGE REFERENCE UNITS LAB MG(LOINC) Magnesium Lvl 2.9 High 1.6-2.4 mg/dL Performed By: #### CMP, GFR, ANEU, RFP, ADIFF, CBC, MG, APTT #### [place] [address] RFP Collected: 11/07/2024 4:15 AM Status: F Source: [facility] MAIN TYPE CODE TESTS RESULT OUT OF RANGE REFERENCE UNITS LAB GLU(LOINC) Glucose Level 131 High 82-115 mg/dL LAB NA(LOINC) Sodium Level 141 136-145 mEq/L LAB K(LOINC) Potassium Level 4.6 3.5-5.0 mEq/L LAB CL(LOINC) Chloride 106 98-110 mEq/L LAB CO2(LOINC) CO2 27 22-32 mEq/L LAB EBAL(LOINC) Electrolyte Balance 8.0 4.0-15.0 mEq/L LAB BUN(LOINC) BUN 46.0 High 8.0-22.0 mg/dL LAB CRE(LOINC) Creatinine Lvl (s) 4.79 High 0.60-1.40 mg/dL Result Comment: Testing perf ormed on [employer]xtControl analyzer using enzymatic creatinine methodology. LAB BC(LOINC) BUN/Creatinine Ratio 9.6 Low 10.0-22.0 ratio LAB CA(LOINC) Calcium Lvl 8.0 Low 8.7-10.4 mg/dL LAB PHOS(LOINC) Phosphorus 5.2 High 2.4-5.1 mg/dL Result Comment: Note - New Reference Range in effect 20 LAB ALB(LOINC) Albumin Level 3.1 Low 3.2-4.8 G/dL Performed By: #### CMP, GFR, ANEU, RFP, ADIFF, CBC, MG, APTT #### [facility] [address] [place] [address] CMP Collected: 11/07/2024 4:15 AM Status: F Source: [facility] MAIN TYPE CODE TESTS RESULT OUT OF RANGE REFERENCE UNITS LAB GLU(LOINC) Glucose Level 131 High 82-115 mg/dL LAB NA(LOINC) Sodium Level 141 136-145 mEq/L LAB K(LOINC) Potassium Level 4.6 3.5-5.0 mEq/L LAB CL(LOINC) Chloride 106 98-110 mEq/L LAB CO2(LOINC) CO2 27 22-32 mEq/L LAB EBAL(LOINC) Electrolyte Balance 8.0 4.0-15.0 mEq/L LAB BUN(LOINC) BUN 46.0 High 8.0-22.0 mg/dL LAB CRE(LOINC) Creatinine Lvl (s) 4.79 High 0.60-1.40 mg/dL Result Comment: Testing perf ormed on [employer] CH analyzer using enzymatic creatinine methodology. LAB BC(LOINC) BUN/Creatinine Ratio 9.6 Low 10.0-22.0 ratio LAB CA(LOINC) Calcium Lvl 8.0 Low 8.7-10.4 mg/dL LAB PROT(LOINC) Total Protein 4.6 Low 5.7-8.2 G/dL LAB ALB(LOINC) Albumin Level 3.1 Low 3.2-4.8 G/dL LAB GLB(LOINC) Globulin 1.5 1.5-3.8 G/dL LAB AG(LOINC) A/G Ratio 2.1 High 0.9-1.6 ratio LAB BILT(LOINC) Bili Total 0.30 0.20-1.20 mg/dL Result Comment: Use of this assay is not recommended for patients undergoing treatment with eltrombopag due to the potential for falsely elevated results. LAB AP(LOINC) Alk Phos 36 Low 38-126 U/L LAB AST(LOINC) AST/SGOT 44 High 8-34 U/L LAB ALT(LOINC) ALT/SGPT 12 12-55 U/L Performed By: #### CMP, GFR, ANEU, RFP, ADIFF, CBC, MG, APTT #### [place] [address] .GFR Collected: 4 4:15 AM Status: F Source: [facility] MAIN TYPE CODE TESTS RESULT OUT OF RANGE REFERENCE UNITS LAB GFRAA(LOINC) GFR 15 ml/min/1. 73sqm Result Comment: GFR Population mean for , [...] Disease: Less than 15 mL/min/1.73 square meters LAB GFRNO(LOINC) GFR Non- 12 ml/min/1. 73sqm Result Comment: GFR Population mean for , [...] 15 mL/min/1.73 square meters Performed By: #### CMP, GFR, ANEU, RFP, ADIFF, CBC, MG, APTT #### [place] [id number] BG Collected: 4 4:15 AM Status: F Source: [facility] MAIN TYPE CODE TESTS RESULT OUT OF RANGE REFERENCE UNITS LAB PH(LOINC) pH 7.369 Low 7.380-7.460 LAB PCO2(LOINC) pCO2 42.9 32.0-46.0 mmHg LAB PO2(LOINC) pO2 155.5 High 74.0-108.0 mmHg LAB HCO3(LOINC) HCO3 24.2 21.0-29.0 mmol/L LAB TCO2(LOINC) CO2 Totl 25.5 22.0-30.0 mmol/L LAB BE(LOINC) Base Excess -1.1 mmol/L LAB O2SAT(LOINC) O2 Sat 99.1 High 92.0-96.0 % Performed By: #### BG #### [place] [address] BG Collected: 4 12:50 AM Status: F Source: [facility] MAIN Order Comment: 2L TYPE CODE TESTS RESULT OUT OF RANGE REFERENCE UNITS LAB PH(LOINC) pH 7.316 Low 7.380-7.460 LAB PCO2(LOINC) pCO2 44.9 32.0-46.0 mmHg LAB PO2(LOINC) pO2 162.8 High 74.0-108.0 mmHg LAB HCO3(LOINC) HCO3 22.4 21.0-29.0 mmol/L LAB TCO2(LOINC) CO2 Totl 23.8 22.0-30.0 mmol/L LAB BE(LOINC) Base Excess -3.6 mmol/L LAB O2SAT(LOINC) O2 Sat 98.6 High 92.0-96.0 % Performed By: #### BG #### [place] [address] BG Collected: 4 10:32 PM Status: F Source: [facility] MAIN Order Comment: 2LNC TYPE CODE TESTS RESULT OUT OF RANGE REFERENCE UNITS LAB PH(LOINC) pH 7.362 Low 7.380-7.460 LAB PCO2(LOINC) pCO2 46.2 High 32.0-46.0 mmHg LAB PO2(LOINC) pO2 156.8 High 74.0-108.0 mmHg LAB HCO3(LOINC) HCO3 25.6 21.0-29.0 mmol/L LAB TCO2(LOINC) CO2 Totl 27.1 22.0-30.0 mmol/L LAB BE(LOINC) Base Excess See comment mmol/L Result Comment: The system h as an atypical response when measuring this parameter. Unable to result. Suggest repeat order. LAB O2SAT(LOINC) O2 Sat 99.1 High 92.0-96.0 % Performed By: #### BG #### [place] [id number] BG Collected: 4 9:29 PM Status: F Source: [facility] MAIN Order Comment: 6LNC post ext ubation TYPE CODE TESTS RESULT OUT OF RANGE REFERENCE UNITS LAB PH(LOINC) pH 7.357 Low 7.380-7.460 LAB PCO2(LOINC) pCO2 47.2 High 32.0-46.0 mmHg LAB PO2(LOINC) pO2 220.7 High 74.0-108.0 mmHg LAB HCO3(LOINC) HCO3 25.9 21.0-29.0 mmol/L LAB TCO2(LOINC) CO2 Totl 27.3 22.0-30.0 mmol/L LAB BE(LOINC) Base Excess 0.2 mmol/L LAB O2SAT(LOINC) O2 Sat 98.9 High 92.0-96.0 % Performed By: #### BG #### [place] [address] BG Collected: 4 7:51 PM Status: F Source: [facility] MAIN Order Comment: cpap trial TYPE CODE TESTS RESULT OUT OF RANGE REFERENCE UNITS LAB PH(LOINC) pH 7.379 Low 7.380-7.460 LAB PCO2(LOINC) pCO2 44.9 32.0-46.0 mmHg LAB PO2(LOINC) pO2 172.1 High 74.0-108.0 mmHg LAB HCO3(LOINC) HCO3 25.9 21.0-29.0 mmol/L LAB TCO2(LOINC) CO2 Totl 27.3 22.0-30.0 mmol/L LAB BE(LOINC) Base Excess 0.6 mmol/L LAB O2SAT(LOINC) O2 Sat 98.6 High 92.0-96.0 % Performed By: #### BG #### [address] [address] BG Collected: 5:39 PM Status: F Source: [facility] MAIN TYPE CODE TESTS RESULT OUT OF RANGE REFERENCE UNITS LAB PH(LOINC) pH 7.387 7.380-7.460 LAB PCO2(LOINC) pCO2 32.9 32.0-46.0 mmHg LAB PO2(LOINC) pO2 167.2 High 74.0-108.0 mmHg LAB HCO3(LOINC) HCO3 19.3 Low 21.0-29.0 mmol/L LAB TCO2(LOINC) CO2 Totl 20.3 Low 22.0-30.0 mmol/L LAB BE(LOINC) Base Excess -5.0 mmol/L LAB O2SAT(LOINC) O2 Sat 98.9 High 92.0-96.0 % Performed By: #### BG #### [place] [address] K Collected: 11/06/2024 5:39 PM Status: F Source: [facility] MAIN TYPE CODE TESTS RESULT OUT OF RANGE REFERENCE UNITS LAB K(LOINC) Potassium Level 4.2 3.5-5.0 mEq/L Performed By: #### K #### [place] [address] XR ENTERIC TUBE PLACEMENT Observed: 10/27 4:22 PM Status: F Source: [facility] MAIN ORIGINAL EXAMINATION: ONE SUPINE XRAY VIEW(S) OF [...] 11/06/2024 4:41:24 PM Ordering Provider: CARMELITA DOMINGO XR CHEST 1 VIEW Observed: 11/06/2024 4:22 PM Status: F Source: [facility] MAIN ORIGINAL EXAMINATION: ONE XRAY VIEW OF THE [...] Date: 11/06/2024 5:36:54 PM Ordering Provider: CARMELITA GIFFORD Collected: 11/06/2024 4:07 PM Status: F Source: [facility] MAIN TYPE CODE TESTS RESULT OUT OF RANGE REFERENCE UNITS LAB CAION(LOINC) Calcium Ionized 1.14 1.12-1.32 mmol/L Performed By: #### ИРИНА, AD IFF, GFR, ANEU, CBC, MG, PHOS, BMP #### [place] [address] BMP Collected: 11/06/2024 4:07 PM Status: F Source: [facility] MAIN TYPE CODE TESTS RESULT OUT OF RANGE REFERENCE UNITS LAB GLU(LOINC) Glucose Level 182 High 82-115 mg/dL LAB NA(LOINC) Sodium Level 143 136-145 mEq/L LAB K(LOINC) Potassium Level 4.5 3.5-5.0 mEq/L LAB CL(LOINC) Chloride 108 98-110 mEq/L LAB CO2(LOINC) CO2 23 22-32 mEq/L LAB EBAL(LOINC) Electrolyte Balance 12.0 4.0-15.0 mEq/L LAB BUN(LOINC) BUN 43.0 High 8.0-22.0 mg/dL LAB CRE(LOINC) Creatinine Lvl (s) 4.14 High 0.60-1.40 mg/dL Result Comment: Testing perf ormed on [employer] analyzer using enzymatic creatinine methodology. LAB BC(LOINC) BUN/Creatinine Ratio 10.4 10.0-22.0 ratio LAB CA(LOINC) Calcium Lvl 8.2 Low 8.7-10.4 mg/dL Performed By: #### CAION, AD IFF, GFR, ANEU, CBC, MG, PHOS, BMP #### [place] [address] MG Collected: 11/06/2024 4:07 PM Status: F Source: [facility] MAIN TYPE CODE TESTS RESULT OUT OF RANGE REFERENCE UNITS LAB MG(LOINC) Magnesium Lvl 3.2 High 1.6-2.4 mg/dL Performed By: #### CAIVALERY, AD IFF, GFR, ANEU, CBC, MG, PHOS, BMP #### [place] [address] PHOS Collected: 4 4:07 PM Status: F Source: [facility] MAIN TYPE CODE TESTS RESULT OUT OF RANGE REFERENCE UNITS LAB PHOS(LOINC) Phosphorus 4.2 2.4-5.1 mg/dL Result Comment: Note - New Reference Range in effect 20 Performed By: #### CAION, AD IFF, GFR, ANEU, CBC, MG, PHOS, BMP #### [address] [address] .GFR Collected: 4:07 PM Status: F Source: [facility] MAIN TYPE CODE TESTS RESULT OUT OF RANGE REFERENCE UNITS LAB GFRAA(LOINC) GFR 18 ml/min/1. 73sqm Result Comment: GFR Population mean for , [...] Disease: Less than 15 mL/min/1.73 square meters LAB GFRNO(LOINC) GFR Non- 15 ml/min/1. 73sqm Result Comment: GFR Population mean for , [...] 15 mL/min/1.73 square meters Performed By: #### SIXTO GIFFORD IFF, GFR, ANEU, CBC, MG, PHOS, BMP #### [place] [address] CBC Collected: 4 4:07 PM Status: F Source: [facility] MAIN TYPE CODE TESTS RESULT OUT OF RANGE REFERENCE UNITS LAB WBC(LOINC) WBC 11.1 High 4.5-10.8 10 3/mcL LAB RBCCT(LOINC) RBC 3.19 Low 4.50-6.00 10 6/mcL LAB HGB(LOINC) Hgb 8.9 Low 13.0-17.5 G/dL LAB HCT(LOINC) Hct 26.2 Low 40.0-52.0 % LAB MCV(LOINC) MCV 82.0 81.0-100.0 fL LAB MCH(LOINC) MCH 27.8 27.0-33.0 pg LAB MCHC(LOINC) MCHC 33.9 32.0-36.0 G/dL LAB RDW(LOINC) RDW 14.2 11.5-15.5 % LAB PLT(LOINC) Platelet 134 Low 150-450 10 3/mcL LAB MPV(LOINC) MPV 7.3 6.4-10.5 fL Performed By: #### ИРИНА, AD IFF, GFR, ANEU, CBC, MG, PHOS, BMP #### [address] [address] .AUTO DIFF Collected: 11/06/2024 4:07 PM Status: F Source: [facility] MAIN TYPE CODE TESTS RESULT OUT OF RANGE REFERENCE UNITS LAB SEFERINO(LOINC) Neutrophil % 79.9 High 50.0-75.0 % LAB LYM(LOINC) Lymphocyte % 15.3 Low 20.0-40.0 % LAB MON(LOINC) Monocyte % 3.3 2.0-13.0 % LAB EO(LOINC) Eosinophil % 1.2 0.0-6.0 % LAB BAS(LOINC) Basophil % 0.3 0.0-2.5 % LAB ABLYM(LOINC) Lymphocyte, Absolute 1.7 0.9-4.3 10 3/mcL LAB WILNER(LOINC) Monocyte, Absolute 0.4 0.1-1.4 10 3/mcL LAB AEOS(LOINC) Eosinophil, Absolute 0.1 0.0-0.7 10 3/mcL LAB ABAS(LOINC) Basophil, Absolute 0.0 0.0-0.3 10 3/mcL Performed By: #### ИРИНА, AD IFF, GFR, ANEU, CBC, MG, PHOS, BMP #### [address] [address] .NEUABS Collected: 4:07 PM Status: F Source: [facility] MAIN TYPE CODE TESTS RESULT OUT OF RANGE REFERENCE UNITS LAB ANEU(LOINC) Neutrophil, Absolute 8.9 High 2.3-8.1 10 3/mcL Performed By: #### ИРИНА, AD IFF, GFR, ANEU, CBC, MG, PHOS, BMP #### [place] [address] BG Collected: 4:07 PM Status: F Source: [facility] MAIN TYPE CODE TESTS RESULT OUT OF RANGE REFERENCE UNITS LAB PH(LOINC) pH 7.381 7.380-7.460 LAB PCO2(LOINC) pCO2 34.1 32.0-46.0 mmHg LAB PO2(LOINC) pO2 326.5 High 74.0-108.0 mmHg LAB HCO3(LOINC) HCO3 19.8 Low 21.0-29.0 mmol/L LAB TCO2(LOINC) CO2 Totl 20.8 Low 22.0-30.0 mmol/L LAB BE(LOINC) Base Excess -4.7 mmol/L LAB O2SAT(LOINC) O2 Sat 99.4 High 92.0-96.0 % Performed By: #### BG #### [place] [address] FIB Collected: 4:07 PM Status: F Source: [facility] MAIN TYPE CODE TESTS RESULT OUT OF RANGE REFERENCE UNITS LAB FIB(LOINC) Fibrinogen 345 250-560 mg/dL Performed By: #### APTT, FIB , PRO #### [place] [address] APTT Collected: 4:07 PM Status: F Source: [facility] MAIN TYPE CODE TESTS RESULT OUT OF RANGE REFERENCE UNITS LAB APTT0(LOINC) APTT 25.5 25.0-35.0 seconds Result Comment: For Heparin anticoagulation therapy, the recommended therapeutic range is: 54-77 seconds (APTT Correlation with Anti-Xa therapeutic range of 0.3-0.7 units/ml). PLEASE REFERENCE THE PHARMACY PROTOCOL FOR DOSING. Performed By: #### APTT, FIB , PRO #### [place] [address] PRO Collected: 11/06/2024 4:07 PM Status: F Source: [facility] MAIN TYPE CODE TESTS RESULT OUT OF RANGE REFERENCE UNITS LAB PT(LOINC) Protime 13.8 9.0-14.4 seconds Result Comment: Effective , Protime results may be affected by some antibiotics (i.e. Ciprofloxacin, Azithromycin, Bactrim) which may potentiate the action of oral anticoagulants, with further increases in Protime/INR. LAB INR(LOINC) PT International Ratio 1.2 ratio Result Comment: The [employer] (CHEST, 1992, 102:312S- 25S) recommended therapeutic range for oral anticoagulant therapy is: LOW RISK: Prophylaxis of venous thrombosis INR: 2.0-3.0 Treatment of pulmonary embolism 2.0-3.0 Prevention of systemic embolism 2.0-3.0 HIGH RISK: Mechanical prosthetic valves 2.5-3.5 Performed By: #### APTT, FIB , PRO #### [place] [address] BGRP Collected: 11/06/2024 3:40 PM Status: F Source: [facility] MAIN TYPE CODE TESTS RESULT OUT OF RANGE REFERENCE UNITS LAB PHRP(LOINC) pH (poct) - POC 7.342 Low 7.380-7.460 LAB PCORP(LOINC) PCO2 - POC 37.7 32.0-46.0 mmHg LAB PO2RP(LOINC) PO2 - POC 475.5 High 74.0-108.0 mmHg LAB HCORP(LOINC) Bicarbonate - POC 20.0 Low 21.0-29.0 mmol/L LAB TCORP(LOINC) Total CO2 - POC 21.1 Low 22.0-30.0 m mol/L LAB BERP(LOINC) Base Excess - POC -5.3 mmol/L LAB O2RP(LOINC) O2 Saturation - POC 99.4 High 92.0-96.0 % Performed By: #### GLURP, KR P, NARP, CARP, BGRP, HGBRP, CLRP, HCTRP #### [place] [address] CLRP Collected: 11/06/2024 3:40 PM Status: F Source: [facility] MAIN TYPE CODE TESTS RESULT OUT OF RANGE REFERENCE UNITS LAB CLRP(LOINC) Chloride - POC 106 98-110 mEq/L Performed By: #### GLURP, KR P, NARP, CARP, BGRP, HGBRP, CLRP, HCTRP #### [place] [address] HGBRP Collected: 11/06/2024 3:40 PM Status: F Source: [facility] MAIN TYPE CODE TESTS RESULT OUT OF RANGE REFERENCE UNITS LAB HGBRP(LOINC) Hemoglobin (POC) 9.5 Low 13.0-17.5 G/dL Performed By: #### GLURP, KR P, NARP, CARP, BGRP, HGBRP, CLRP, HCTRP #### [place] [address] GLURP Collected: 11/06/2024 3:40 PM Status: F Source: [facility] MAIN TYPE CODE TESTS RESULT OUT OF RANGE REFERENCE UNITS LAB GLURP(LOINC) Glucose - POC 157 High 82-115 mg/dL Performed By: #### GLURP, KR P, NARP, CARP, BGRP, HGBRP, CLRP, HCTRP #### [place] [address] KRP Collected: 11/06/2024 3:40 PM Status: F Source: [facility] MAIN TYPE CODE TESTS RESULT OUT OF RANGE REFERENCE UNITS LAB KRP(LOINC) Potassium - POC 4.5 3.5-5.0 mEq/L Performed By: #### GLURP, KR P, NARP, CARP, BGRP, HGBRP, CLRP, HCTRP #### [place] [address] HCTRP Collected: 11/06/2024 3:40 PM Status: F Source: [facility] MAIN TYPE CODE TESTS RESULT OUT OF RANGE REFERENCE UNITS LAB HCTRP(LOINC) Hematocrit (POC) 28.0 Low 42.0-52.0 % Performed By: #### GLURP, KR P, NARP, CARP, BGRP, HGBRP, CLRP, HCTRP #### [place] [address] NARP Collected: 11/06/2024 3:40 PM Status: F Source: [facility] MAIN TYPE CODE TESTS RESULT OUT OF RANGE REFERENCE UNITS LAB NARP(LOINC) Sodium - POC 137 136-145 mEq/L Performed By: #### GLURP, KR P, NARP, CARP, BGRP, HGBRP, CLRP, HCTRP #### [place] [address] CARP Collected: 11/06/2024 3:40 PM Status: F Source: [facility] MAIN TYPE CODE TESTS RESULT OUT OF RANGE REFERENCE UNITS LAB CARP(LOINC) Ionized Calcium - POC 1.12 1.12-1.32 mmol/L Performed By: #### GLURP, KR P, NARP, CARP, BGRP, HGBRP, CLRP, HCTRP #### [address] [address] BGRP Collected: 11/06/2024 2:46 PM Status: F Source: [facility] MAIN TYPE CODE TESTS RESULT OUT OF RANGE REFERENCE UNITS LAB PHRP(LOINC) pH (poct) - POC 7.459 7.380-7.460 LAB PCORP(LOINC) PCO2 - POC 31.5 Low 32.0-46.0 mmHg LAB PO2RP(LOINC) PO2 - POC 484.2 High 74.0-108.0 mmHg LAB HCORP(LOINC) Bicarbonate - POC 21.8 21.0-29.0 mmol/L LAB TCORP(LOINC) Total CO2 - POC 22.8 22.0-30.0 m mol/L LAB BERP(LOINC) Base Excess - POC -1.7 mmol/L LAB O2RP(LOINC) O2 Saturation - POC 99.6 High 92.0-96.0 % Performed By: #### CARP, DIAN P, BGRP, HCTRP, CLRP, KRP, HGBRP, GLURP #### [address] [address] CLRP Collected: 11/06/2024 2:46 PM Status: F Source: [facility] MAIN TYPE CODE TESTS RESULT OUT OF RANGE REFERENCE UNITS LAB CLRP(LOINC) Chloride - POC 107 98-110 mEq/L Performed By: #### CARP, DIAN P, BGRP, HCTRP, CLRP, KRP, HGBRP, GLURP #### [address] [address] HGBRP Collected: 11/06/2024 2:46 PM Status: F Source: [facility] MAIN TYPE CODE TESTS RESULT OUT OF RANGE REFERENCE UNITS LAB HGBRP(LOINC) Hemoglobin (POC) 7.2 Low 13.0-17.5 G/dL Performed By: #### CARP, DIAN P, BGRP, HCTRP, CLRP, KRP, HGBRP, GLURP #### [place] [address] GLURP Collected: 11/06/2024 2:46 PM Status: F Source: [facility] MAIN TYPE CODE TESTS RESULT OUT OF RANGE REFERENCE UNITS LAB GLURP(LOINC) Glucose - POC 127 High 82-115 mg/dL Performed By: #### CARP, DIAN P, BGRP, HCTRP, CLRP, KRP, HGBRP, GLURP #### [place] [address] KRP Collected: 11/06/2024 2:46 PM Status: F Source: [facility] MAIN TYPE CODE TESTS RESULT OUT OF RANGE REFERENCE UNITS LAB KRP(LOINC) Potassium - POC 4.6 3.5-5.0 mEq/L Performed By: #### CARP, DIAN P, BGRP, HCTRP, CLRP, KRP, HGBRP, GLURP #### [place] [address] HCTRP Collected: 11/06/2024 2:46 PM Status: F Source: [facility] MAIN TYPE CODE TESTS RESULT OUT OF RANGE REFERENCE UNITS LAB HCTRP(LOINC) Hematocrit (POC) 21.0 Low 42.0-52.0 % Performed By: #### CARP, DIAN P, BGRP, HCTRP, CLRP, KRP, HGBRP, GLURP #### [place] [address] NARP Collected: 11/06/2024 2:46 PM Status: F Source: [facility] MAIN TYPE CODE TESTS RESULT OUT OF RANGE REFERENCE UNITS LAB NARP(LOINC) Sodium - POC 135 Low 136-145 mEq/L Performed By: #### CARP, DIAN P, BGRP, HCTRP, CLRP, KRP, HGBRP, GLURP #### [place] [address] CARP Collected: 11/06/2024 2:46 PM Status: F Source: [facility] MAIN TYPE CODE TESTS RESULT OUT OF RANGE REFERENCE UNITS LAB CARP(LOINC) Ionized Calcium - POC 1.21 1.12-1.32 mmol/L Performed By: #### CARP, DIAN P, BGRP, HCTRP, CLRP, KRP, HGBRP, GLURP #### [address] [address] BGRP Collected: 11/06/2024 2:33 PM Status: F Source: [facility] MAIN TYPE CODE TESTS RESULT OUT OF RANGE REFERENCE UNITS LAB PHRP(LOINC) pH (poct) - POC 7.387 7.380-7.460 LAB PCORP(LOINC) PCO2 - POC 37.4 32.0-46.0 mmHg LAB PO2RP(LOINC) PO2 - POC 514.3 High 74.0-108.0 mmHg LAB HCORP(LOINC) Bicarbonate - POC 22.0 21.0-29.0 mmol/L LAB TCORP(LOINC) Total CO2 - POC 23.1 22.0-30.0 m mol/L LAB BERP(LOINC) Base Excess - POC -2.8 mmol/L LAB O2RP(LOINC) O2 Saturation - POC 99.5 High 92.0-96.0 % Performed By: #### GLURP, KR P, BGRP, HGBRP, CLRP, CARP, HCTRP, NARP #### [address] [address] CLRP Collected: 11/06/2024 2:33 PM Status: F Source: [facility] MAIN TYPE CODE TESTS RESULT OUT OF RANGE REFERENCE UNITS LAB CLRP(LOINC) Chloride - POC 106 98-110 mEq/L Performed By: #### GLURP, KR P, BGRP, HGBRP, CLRP, CARP, HCTRP, NARP #### [address] [address] HGBRP Collected: 11/06/2024 2:33 PM Status: F Source: [facility] MAIN TYPE CODE TESTS RESULT OUT OF RANGE REFERENCE UNITS LAB HGBRP(LOINC) Hemoglobin (POC) 7.0 Low 13.0-17.5 G/dL Performed By: #### GLURP, KR P, BGRP, HGBRP, CLRP, CARP, HCTRP, NARP #### [place] [address] GLURP Collected: 11/06/2024 2:33 PM Status: F Source: [facility] MAIN TYPE CODE TESTS RESULT OUT OF RANGE REFERENCE UNITS LAB GLURP(LOINC) Glucose - POC 124 High 82-115 mg/dL Performed By: #### GLURP, KR P, BGRP, HGBRP, CLRP, CARP, HCTRP, NARP #### [place] [address] KRP Collected: 11/06/2024 2:33 PM Status: F Source: [facility] MAIN TYPE CODE TESTS RESULT OUT OF RANGE REFERENCE UNITS LAB KRP(LOINC) Potassium - POC 4.8 3.5-5.0 mEq/L Performed By: #### GLURP, KR P, BGRP, HGBRP, CLRP, CARP, HCTRP, NARP #### [place] [address] HCTRP Collected: 11/06/2024 2:33 PM Status: F Source: [facility] MAIN [place] [facility] RESULT OUT OF RANGE REFERENCE UNITS LAB HCTRP(LOINC) Hematocrit (POC) 21.0 Low 42.0-52.0 % Performed By: #### GLURP, KR P, BGRP, HGBRP, CLRP, CARP, HCTRP, NARP #### [place] [address] NARP Collected: 11/06/2024 2:33 PM Status: F Source: [facility] MAIN TYPE CODE TESTS RESULT OUT OF RANGE REFERENCE UNITS LAB NARP(LOINC) Sodium - POC 136 136-145 mEq/L Performed By: #### GLURP, KR P, BGRP, HGBRP, CLRP, CARP, HCTRP, NARP #### [place] [address] CARP Collected: 11/06/2024 2:33 PM Status: F Source: [facility] MAIN TYPE CODE TESTS RESULT OUT OF RANGE REFERENCE UNITS LAB CARP(LOINC) Ionized Calcium - POC 1.01 Low 1.12-1.32 mmol/L Performed By: #### GLURP, KR P, BGRP, HGBRP, CLRP, CARP, HCTRP, NARP #### [address] [id number] BGRP Collected: 11/06/2024 2:08 PM Status: F Source: [facility] MAIN TYPE CODE TESTS RESULT OUT OF RANGE REFERENCE UNITS LAB PHRP(LOINC) pH (poct) - POC 7.385 7.380-7.460 LAB PCORP(LOINC) PCO2 - POC 32.5 32.0-46.0 mmHg LAB PO2RP(LOINC) PO2 - POC 516.0 High 74.0-108.0 mmHg LAB HCORP(LOINC) Bicarbonate - POC 19.0 Low 21.0-29.0 mmol/L LAB TCORP(LOINC) Total CO2 - POC 20.0 Low 22.0-30.0 m mol/L LAB BERP(LOINC) Base Excess - POC -5.4 mmol/L LAB O2RP(LOINC) O2 Saturation - POC 99.7 High 92.0-96.0 % Performed By: #### BGRP, CLR P, NARP, CARP, HGBRP, HCTRP, GLURP, KRP #### [place] [id number] CLRP Collected: 11/06/2024 2:08 PM Status: F Source: [facility] MAIN TYPE CODE TESTS RESULT OUT OF RANGE REFERENCE UNITS LAB CLRP(LOINC) Chloride - POC 107 98-110 mEq/L Performed By: #### BGRP, CLR P, NARP, CARP, HGBRP, HCTRP, GLURP, KRP #### [place] [id number] HGBRP Collected: 11/06/2024 2:08 PM Status: F Source: [facility] MAIN TYPE CODE TESTS RESULT OUT OF RANGE REFERENCE UNITS LAB HGBRP(LOINC) Hemoglobin (POC) 7.2 Low 13.0-17.5 G/dL Performed By: #### BGRP, CLR P, NARP, CARP, HGBRP, HCTRP, GLURP, KRP #### [place] [id number] GLURP Collected: 11/06/2024 2:08 PM Status: F Source: [facility] MAIN TYPE CODE TESTS RESULT OUT OF RANGE REFERENCE UNITS LAB GLURP(LOINC) Glucose - POC 113 82-115 mg/dL Performed By: #### BGRP, CLR P, NARP, CARP, HGBRP, HCTRP, GLURP, KRP #### [place] [id number] KRP Collected: 11/06/2024 2:08 PM Status: F Source: [facility] MAIN TYPE CODE TESTS RESULT OUT OF RANGE REFERENCE UNITS LAB KRP(LOINC) Potassium - POC 4.4 3.5-5.0 mEq/L Performed By: #### BGRP, CLR P, NARP, CARP, HGBRP, HCTRP, GLURP, KRP #### [place] [id number] HCTRP Collected: 11/06/2024 2:08 PM Status: F Source: [facility] MAIN TYPE CODE TESTS RESULT OUT OF RANGE REFERENCE UNITS LAB HCTRP(LOINC) Hematocrit (POC) 21.0 Low 42.0-52.0 % Performed By: #### BGRP, CLR P, NARP, CARP, HGBRP, HCTRP, GLURP, KRP #### [place] [id number] NARP Collected: 11/06/2024 2:08 PM Status: F Source: [facility] MAIN TYPE CODE TESTS RESULT OUT OF RANGE REFERENCE UNITS LAB NARP(LOINC) Sodium - POC 133 Low 136-145 mEq/L Performed By: #### BGRP, CLR P, NARP, CARP, HGBRP, HCTRP, GLURP, KRP #### [place] [id number] CARP Collected: 11/06/2024 2:08 PM Status: F Source: [facility] MAIN TYPE CODE TESTS RESULT OUT OF RANGE REFERENCE UNITS LAB CARP(LOINC) Ionized Calcium - POC 1.02 Low 1.12-1.32 mmol/L Performed By: #### BGRP, CLR P, NARP, CARP, HGBRP, HCTRP, GLURP, KRP #### [place] [id number] BGRP Collected: 11/06/2024 1:34 PM Status: F Source: [facility] MAIN TYPE CODE TESTS RESULT OUT OF RANGE REFERENCE UNITS LAB PHRP(LOINC) pH (poct) - POC 7.373 Low 7.380-7.460 LAB PCORP(LOINC) PCO2 - POC 37.9 32.0-46.0 mmHg LAB PO2RP(LOINC) PO2 - POC 558.7 High 74.0-108.0 mmHg LAB HCORP(LOINC) Bicarbonate - POC 21.6 21.0-29.0 mmol/L LAB TCORP(LOINC) Total CO2 - POC 22.7 22.0-30.0 m mol/L LAB BERP(LOINC) Base Excess - POC -3.3 mmol/L LAB O2RP(LOINC) O2 Saturation - POC 99.4 High 92.0-96.0 % Performed By: #### KRP, GLUR P, HGBRP, HCTRP, CARP, BGRP, CLRP, NARP #### [place] [address] CLRP Collected: 11/06/2024 1:34 PM Status: F Source: [facility] MAIN TYPE CODE TESTS RESULT OUT OF RANGE REFERENCE UNITS LAB CLRP(LOINC) Chloride - POC 103 98-110 mEq/L Performed By: #### KRP, GLUR P, HGBRP, HCTRP, CARP, BGRP, CLRP, NARP #### [place] [address] HGBRP Collected: 11/06/2024 1:34 PM Status: F Source: [facility] MAIN TYPE CODE TESTS RESULT OUT OF RANGE REFERENCE UNITS LAB HGBRP(LOINC) Hemoglobin (POC) 7.9 Low 13.0-17.5 G/dL Performed By: #### KRP, GLUR P, HGBRP, HCTRP, CARP, BGRP, CLRP, NARP #### [place] [address] GLURP Collected: 11/06/2024 1:34 PM Status: F Source: [facility] MAIN TYPE CODE TESTS RESULT OUT OF RANGE REFERENCE UNITS LAB GLURP(LOINC) Glucose - POC 136 High 82-115 mg/dL Performed By: #### KRP, GLUR P, HGBRP, HCTRP, CARP, BGRP, CLRP, NARP #### [place] [address] KRP Collected: 11/06/2024 1:34 PM Status: F Source: [facility] MAIN TYPE CODE TESTS RESULT OUT OF RANGE REFERENCE UNITS LAB KRP(LOINC) Potassium - POC 4.8 3.5-5.0 mEq/L Performed By: #### KRP, GLUR P, HGBRP, HCTRP, CARP, BGRP, CLRP, NARP #### [place] [address] HCTRP Collected: 11/06/2024 1:34 PM Status: F Source: [facility] MAIN TYPE CODE TESTS RESULT OUT OF RANGE REFERENCE UNITS LAB HCTRP(LOINC) Hematocrit (POC) 23.0 Low 42.0-52.0 % Performed By: #### KRP, GLUR P, HGBRP, HCTRP, CARP, BGRP, CLRP, NARP #### [place] [address] NARP Collected: 11/06/2024 1:34 PM Status: F Source: [facility] MAIN TYPE CODE TESTS RESULT OUT OF RANGE REFERENCE UNITS LAB NARP(LOINC) Sodium - POC 132 Low 136-145 mEq/L Performed By: #### KRP, GLUR P, HGBRP, HCTRP, CARP, BGRP, CLRP, NARP #### [place] [address] CARP Collected: 11/06/2024 1:34 PM Status: F Source: [facility] MAIN TYPE CODE TESTS RESULT OUT OF RANGE REFERENCE UNITS LAB CARP(LOINC) Ionized Calcium - POC 1.04 Low 1.12-1.32 mmol/L Performed By: #### KRP, GLUR P, HGBRP, HCTRP, CARP, BGRP, CLRP, NARP #### [place] [address] BGRP Collected: 11/06/2024 12:48 PM Status: F Source: [facility] MAIN TYPE CODE TESTS RESULT OUT OF RANGE REFERENCE UNITS LAB PHRP(LOINC) pH (poct) - POC 7.365 Low 7.380-7.460 LAB PCORP(LOINC) PCO2 - POC 40.1 32.0-46.0 mmHg LAB PO2RP(LOINC) PO2 - POC 553.7 High 74.0-108.0 mmHg LAB HCORP(LOINC) Bicarbonate - POC 22.4 21.0-29.0 mmol/L LAB TCORP(LOINC) Total CO2 - POC 23.6 22.0-30.0 m mol/L LAB BERP(LOINC) Base Excess - POC -2.7 mmol/L LAB O2RP(LOINC) O2 Saturation - POC 99.9 High 92.0-96.0 % Performed By: #### NARP, KRP , HGBRP, GLURP, CARP, HCTRP, BGRP, CLRP #### [place] [address] CLRP Collected: 11/06/2024 12:48 PM Status: F Source: [facility] MAIN TYPE CODE TESTS RESULT OUT OF RANGE REFERENCE UNITS LAB CLRP(LOINC) Chloride - POC 105 98-110 mEq/L Performed By: #### NARP, KRP , HGBRP, GLURP, CARP, HCTRP, BGRP, CLRP #### [place] [address] HGBRP Collected: 11/06/2024 12:48 PM Status: F Source: [facility] MAIN TYPE CODE TESTS RESULT OUT OF RANGE REFERENCE UNITS LAB HGBRP(LOINC) Hemoglobin (POC) 11.1 Low 13.0-17.5 G/dL Performed By: #### NARP, KRP , HGBRP, GLURP, CARP, HCTRP, BGRP, CLRP #### [place] [address] GLURP Collected: 12:48 PM Status: F Source: [facility] MAIN TYPE CODE TESTS RESULT OUT OF RANGE REFERENCE UNITS LAB GLURP(LOINC) Glucose - POC 152 High 82-115 mg/dL Performed By: #### NARP, KRP , HGBRP, GLURP, CARP, HCTRP, BGRP, CLRP #### [place] [address] KRP Collected: 11/06/2024 12:48 PM Status: F Source: [facility] MAIN TYPE CODE TESTS RESULT OUT OF RANGE REFERENCE UNITS LAB KRP(LOINC) Potassium - POC 4.4 3.5-5.0 mEq/L Performed By: #### NARP, KRP , HGBRP, GLURP, CARP, HCTRP, BGRP, CLRP #### [place] [address] HCTRP Collected: 11/06/2024 12:48 PM Status: F Source: [facility] MAIN TYPE CODE TESTS RESULT OUT OF RANGE REFERENCE UNITS LAB HCTRP(LOINC) Hematocrit (POC) 33.0 Low 42.0-52.0 % Performed By: #### NARP, KRP , HGBRP, GLURP, CARP, HCTRP, BGRP, CLRP #### [place] [address] NARP Collected: 12:48 PM Status: F Source: [facility] MAIN TYPE CODE TESTS RESULT OUT OF RANGE REFERENCE UNITS LAB NARP(LOINC) Sodium - POC 137 136-145 mEq/L Performed By: #### NARP, KRP , HGBRP, GLURP, CARP, HCTRP, BGRP, CLRP #### [place] [address] CARP Collected: 12:48 PM Status: F Source: [facility] MAIN TYPE CODE TESTS RESULT OUT OF RANGE REFERENCE UNITS LAB CARP(LOINC) Ionized Calcium - POC 1.18 1.12-1.32 mmol/L Performed By: #### NARP, KRP , HGBRP, GLURP, CARP, HCTRP, BGRP, CLRP #### [place] [address] BGRP Collected: 11/06/2024 11:45 AM Status: F Source: [facility] MAIN TYPE CODE TESTS RESULT OUT OF RANGE REFERENCE UNITS LAB PHRP(LOINC) pH (poct) - POC 7.391 7.380-7.460 LAB PCORP(LOINC) PCO2 - POC 35.3 32.0-46.0 mmHg LAB PO2RP(LOINC) PO2 - POC 476.5 High 74.0-108.0 mmHg LAB HCORP(LOINC) Bicarbonate - POC 20.9 Low 21.0-29.0 mmol/L LAB TCORP(LOINC) Total CO2 - POC 22.0 22.0-30.0 m mol/L LAB BERP(LOINC) Base Excess - POC -3.4 mmol/L LAB O2RP(LOINC) O2 Saturation - POC 99.8 High 92.0-96.0 % Performed By: #### CARP, DIAN P, GLURP, KRP, HCTRP, BGRP, HGBRP, CLRP #### [place] [address] CLRP Collected: 11/06/2024 11:45 AM Status: F Source: [facility] MAIN TYPE CODE TESTS RESULT OUT OF RANGE REFERENCE UNITS LAB CLRP(LOINC) Chloride - POC 104 98-110 mEq/L Performed By: #### CARP, DIAN P, GLURP, KRP, HCTRP, BGRP, HGBRP, CLRP #### [place] [address] HGBRP Collected: 11/06/2024 11:45 AM Status: F Source: [facility] MAIN TYPE CODE TESTS RESULT OUT OF RANGE REFERENCE UNITS LAB HGBRP(LOINC) Hemoglobin (POC) 11.6 Low 13.0-17.5 G/dL Performed By: #### CARP, DIAN P, GLURP, KRP, HCTRP, BGRP, HGBRP, CLRP #### [place] [address] GLURP Collected: 11:45 AM Status: F Source: [facility] MAIN TYPE CODE TESTS RESULT OUT OF RANGE REFERENCE UNITS LAB GLURP(LOINC) Glucose - POC 143 High 82-115 mg/dL Performed By: #### CARP, DIAN P, GLURP, KRP, HCTRP, BGRP, HGBRP, CLRP #### [place] [address] KRP Collected: 11/06/2024 11:45 AM Status: F Source: [facility] MAIN TYPE CODE TESTS RESULT OUT OF RANGE REFERENCE UNITS LAB KRP(LOINC) Potassium - POC 4.1 3.5-5.0 mEq/L Performed By: #### CARP, DIAN P, GLURP, KRP, HCTRP, BGRP, HGBRP, CLRP #### [place] [address] HCTRP Collected: 11/06/2024 11:45 AM Status: F Source: [facility] MAIN TYPE CODE TESTS RESULT OUT OF RANGE REFERENCE UNITS LAB HCTRP(LOINC) Hematocrit (POC) 34.0 Low 42.0-52.0 % Performed By: #### CARP, DIAN P, GLURP, KRP, HCTRP, BGRP, HGBRP, CLRP #### [place] [address] NARP Collected: 11:45 AM Status: F Source: [facility] MAIN TYPE CODE TESTS RESULT OUT OF RANGE REFERENCE UNITS LAB NARP(LOINC) Sodium - POC 138 136-145 mEq/L Performed By: #### CARP, DIAN P, GLURP, KRP, HCTRP, BGRP, HGBRP, CLRP #### [place] [address] CARP Collected: 11:45 AM Status: F Source: [facility] MAIN TYPE CODE TESTS RESULT OUT OF RANGE REFERENCE UNITS LAB CARP(LOINC) Ionized Calcium - POC 1.19 1.12-1.32 mmol/L Performed By: #### CARP, DIAN P, GLURP, KRP, HCTRP, BGRP, HGBRP, CLRP #### [place] [address] PLATELET (PRODUCT) Collected: 11/06/2024 5:38 AM Sta tus: F Source: [facility] MAIN Order Comment: ON HOLD FOR C VOR TYPE CODE TESTS RESULT OUT OF RANGE REFERENCE UNITS LAB PPR(LOINC) Platelet Product Ready Platelet Ready for Pickup Performed By: #### PLTP #### [place] [address] APTT Collected: 2:27 AM Status: F Source: [facility] MAIN TYPE CODE TESTS RESULT OUT OF RANGE REFERENCE UNITS LAB APTT0(LOINC) APTT 54.5 High 25.0-35.0 seconds Result Comment: For Heparin anticoagulation therapy, the recommended therapeutic range is: 54-77 seconds (APTT Correlation with Anti-Xa therapeutic range of 0.3-0.7 units/ml). PLEASE REFERENCE THE PHARMACY PROTOCOL FOR DOSING. Performed By: #### APTT #### [address] [address] CBC Collected: 2:27 AM Status: F Source: [facility] MAIN TYPE CODE TESTS RESULT OUT OF RANGE REFERENCE UNITS LAB WBC(LOINC) WBC 5.9 4.5-10.8 10 3/mcL LAB RBCCT(LOINC) RBC 4.02 Low 4.50-6.00 10 6/mcL LAB HGB(LOINC) Hgb 11.0 Low 13.0-17.5 G/dL LAB HCT(LOINC) Hct 32.3 Low 40.0-52.0 % LAB MCV(LOINC) MCV 80.4 Low 81.0-100.0 fL LAB MCH(LOINC) MCH 27.4 27.0-33.0 pg LAB MCHC(LOINC) MCHC 34.1 32.0-36.0 G/dL LAB RDW(LOINC) RDW 13.6 11.5-15.5 % LAB PLT(LOINC) Platelet 185 150-450 10 3/mcL LAB MPV(LOINC) MPV 7.3 6.4-10.5 fL Performed By: #### GFR, ANEU , BMP, CBC, RFP, MG, ADIFF #### [address] [address] .AUTO DIFF Collected: 11/06/2024 2:27 AM Status: F Source: [facility] MAIN TYPE CODE TESTS RESULT OUT OF RANGE REFERENCE UNITS LAB SEFERINO(LOINC) Neutrophil % 63.5 50.0-75.0 % LAB LYM(LOINC) Lymphocyte % 24.6 20.0-40.0 % LAB MON(LOINC) Monocyte % 8.2 2.0-13.0 % LAB EO(LOINC) Eosinophil % 2.8 0.0-6.0 % LAB BAS(LOINC) Basophil % 0.9 0.0-2.5 % LAB ABLYM(LOINC) Lymphocyte, Absolute 1.4 0.9-4.3 10 3/mcL LAB WILNER(LOINC) Monocyte, Absolute 0.5 0.1-1.4 10 3/mcL LAB AEOS(LOINC) Eosinophil, Absolute 0.2 0.0-0.7 10 3/mcL LAB ABAS(LOINC) Basophil, Absolute 0.1 0.0-0.3 10 3/mcL Performed By: #### GFR, ANEU , BMP, CBC, RFP, MG, ADIFF #### [place] [id number] .NEUABS Collected: 2:27 AM Status: F Source: [facility] MAIN TYPE CODE TESTS RESULT OUT OF RANGE REFERENCE UNITS LAB ANEU(LOINC) Neutrophil, Absolute 3.7 2.3-8.1 10 3/mcL Performed By: #### GFR, ANEU , BMP, CBC, RFP, MG, ADIFF #### [place] [address] BMP Collected: 11/06/2024 2:27 AM Status: F Source: [facility] MAIN TYPE CODE TESTS RESULT OUT OF RANGE REFERENCE UNITS LAB GLU(LOINC) Glucose Level 211 High 82-115 mg/dL LAB NA(LOINC) Sodium Level 137 136-145 mEq/L LAB K(LOINC) Potassium Level 4.1 3.5-5.0 mEq/L LAB CL(LOINC) Chloride 104 98-110 mEq/L LAB CO2(LOINC) CO2 26 22-32 mEq/L LAB EBAL(LOINC) Electrolyte Balance 7.0 4.0-15.0 mEq/L LAB BUN(LOINC) BUN 53.0 High 8.0-22.0 mg/dL LAB CRE(LOINC) Creatinine Lvl (s) 4.70 High 0.60-1.40 mg/dL Result Comment: Testing perf ormed on [employer] analyzer using enzymatic creatinine methodology. LAB BC(LOINC) BUN/Creatinine Ratio 11.3 10.0-22.0 ratio LAB CA(LOINC) Calcium Lvl 8.7 8.7-10.4 mg/dL Performed By: #### GFR, ANEU , BMP, CBC, RFP, MG, ADIFF #### [address] [address] MG Collected: 11/06/2024 2:27 AM Status: F Source: [facility] MAIN TYPE CODE TESTS RESULT OUT OF RANGE REFERENCE UNITS LAB MG(LOINC) Magnesium Lvl 2.4 1.6-2.4 mg/dL Performed By: #### GFR, ANEU , BMP, CBC, RFP, MG, ADIFF #### [address] [address] RFP Collected: 11/06/2024 2:27 AM Status: F Source: [facility] MAIN TYPE CODE TESTS RESULT OUT OF RANGE REFERENCE UNITS LAB GLU(LOINC) Glucose Level 211 High 82-115 mg/dL LAB NA(LOINC) Sodium Level 137 136-145 mEq/L LAB K(LOINC) Potassium Level 4.1 3.5-5.0 mEq/L LAB CL(LOINC) Chloride 104 98-110 mEq/L LAB CO2(LOINC) CO2 26 22-32 mEq/L LAB EBAL(LOINC) Electrolyte Balance 7.0 4.0-15.0 mEq/L LAB BUN(LOINC) BUN 53.0 High 8.0-22.0 mg/dL LAB CRE(LOINC) Creatinine Lvl (s) 4.70 High 0.60-1.40 mg/dL Result Comment: Testing perf ormed on [employer] analyzer using enzymatic creatinine methodology. LAB BC(LOINC) BUN/Creatinine Ratio 11.3 10.0-22.0 ratio LAB CA(LOINC) Calcium Lvl 8.7 8.7-10.4 mg/dL LAB PHOS(LOINC) Phosphorus 4.4 2.4-5.1 mg/dL Result Comment: Note - New Reference Range in effect 20 LAB ALB(LOINC) Albumin Level 2.6 Low 3.2-4.8 G/dL Performed By: #### GFR, ANEU , BMP, CBC, RFP, MG, ADIFF #### [address] [address] .GFR Collected: 2:27 AM Status: F Source: [facility] MAIN TYPE CODE TESTS RESULT OUT OF RANGE REFERENCE UNITS LAB GFRAA(LOINC) GFR 15 ml/min/1. 73sqm Result Comment: GFR Population mean for , [...] Disease: Less than 15 mL/min/1.73 square meters LAB GFRNO(LOINC) GFR Non- 13 ml/min/1. 73sqm Result Comment: GFR Population mean for , [...] 15 mL/min/1.73 square meters Performed By: #### GFR, ANEU , BMP, CBC, RFP, MG, ADIFF #### [address] [address] APTT Collected: 4 7:42 PM Status: F Source: [facility] MAIN TYPE CODE TESTS RESULT OUT OF RANGE REFERENCE UNITS LAB APTT0(LOINC) APTT 54.4 High 25.0-35.0 seconds Result Comment: Specimen hem olyzed. Results may be affected. For Heparin anticoagulation therapy, the recommended therapeutic range is: 54-77 seconds (APTT Correlation with Anti-Xa therapeutic range of 0.3-0.7 units/ml). PLEASE REFERENCE THE PHARMACY PROTOCOL FOR DOSING. Performed By: #### APTT #### [address] [address] ABO/RH (GEL) Collected: 11/05/2024 1:09 PM Status: F Source: [facility] MAIN TYPE CODE TESTS RESULT OUT OF RANGE REFERENCE UNITS LAB ABORH(LOINC) ABO/Rh Interp A POS Unknown Performed By: #### Nish DIAZ #### [place] [address] ABS (GEL) Collected: 11/05/2024 1:09 PM Status: F Source: [facility] MAIN TYPE CODE TESTS RESULT OUT OF RANGE REFERENCE UNITS LAB ABSCINT(LOINC) ABSC Interp (Gel) Negative ABSC Performed By: #### Nish DIAZ #### [place] [address] RBC (PRODUCT) Collected: 11:42 AM Status: F Source: [facility] TYPE CODE TESTS RESULT OUT OF RANGE REFERENCE UNITS LAB RBCPR(LOINC) RBC Product Ready RBC Ready for Pickup Performed By: #### RBCP #### [place] [address] IR TEMPORARY DIALYSIS CATHETER Observed: 11/05/2024 11:00 AM Status: F Source: [facility] MAIN ORIGINAL PROCEDURE: 1. Temporary hemodialysis catheter placement with fluoroscopy and ultrasound MANAGED SERVICES SALES CONSULTANT: Katelyn Caal PA-C CLINICAL STATEMENT: JIMMY on [...] supervision of Ladan Zazueta PA-C Interpreted by: Dwayne Calle DO Preliminary Report By: Katelyn Caal Electronically signed By Dwayne Calle DO Dictated Date: 11/05/2024 1:02:11 PM Prelim Date: 11/05/2024 1:04:14 PM Sign Date: 11/05/2024 3:21:29 PM Ordering Provider: EDWARD GRANADOS APTT Collected: 10:33 AM Status: F Source: [facility] MAIN TYPE CODE TESTS RESULT OUT OF RANGE REFERENCE UNITS LAB APTT0(LOINC) APTT 46.3 High 25.0-35.0 seconds Result Comment: For Heparin anticoagulation therapy, the recommended therapeutic range is: 54-77 seconds (APTT Correlation with Anti-Xa therapeutic range of 0.3-0.7 units/ml). PLEASE REFERENCE THE PHARMACY PROTOCOL FOR DOSING. Performed By: #### APTT #### [address] RENAL Observed: 11/05/2024 10:30 AM Status: F Source: [facility] MAIN ORIGINAL EXAMINATION: ULTRASOUND OF THE KIDNEYS 11/05/2024 [...] Date: 11/05/2024 11:27:45 AM Ordering Provider: EDWARD NUNES Collected: 11/05/2024 6:29 AM Status: F Source: [facility] MAIN TYPE CODE TESTS RESULT OUT OF RANGE REFERENCE UNITS LAB EOSRC(LOINC) Eosinophil Spec Type Urine LAB EOSMR(LOINC) Eos Smear 0 Result Comment: The units fo r an eosinophil smear depend upon specimen type: Stool, sputum, nasal specimens: number of cells/hp field Urine, bronchial lavage: number of cells/100 cells (%) Performed By: #### EOS #### [place] [address] UA Collected: 11/05/2024 6:29 AM Status: F Source: [facility] MAIN TYPE CODE TESTS RESULT OUT OF RANGE REFERENCE UNITS LAB SPCUA(LOINC) UA Specimen Type Clean Catch LAB CLRUA(LOINC) UA Color Yellow LAB APPUA(LOINC) UA Appear Clear Clear LAB SGUA(LOINC) UA Spec Grav 1.015 1.006-1.029 LAB GLUA(LOINC) UA Glucose 100 Abnormal Negative mg/dL LAB BILUA(LOINC) UA Bili Negative Neg-Trace LAB KETUA(LOINC) UA Ketones Negative Neg-Trace mg/dL LAB BLDUA(LOINC) UA Blood Trace Neg-Trace LAB PHUA(LOINC) UA pH 6.0 5.0 - 8.0 LAB PROUA(LOINC) UA Protein 300 Abnormal Negative mg/dL LAB UROUA(LOINC) UA Urobilinogen 0.2 0.2-1.0 E.U ./dL LAB NITUA(LOINC) UA Nitrite Negative Negative LAB LEUUA(LOINC) UA Leuk Est Negative Negative Performed By: #### UA, UAMIC #### [place] [address] UAMIC Collected: 11/05/2024 6:29 AM Status: F Source: [facility] MAIN TYPE CODE TESTS RESULT OUT OF RANGE REFERENCE UNITS LAB RBCUA(LOINC) UA RBC Rare 0-2 /hpf LAB WBCUA(LOINC) UA WBC Rare 0-5 /hpf LAB EPIUA(LOINC) UA Squam Epithelial 0-2 0-20 /hpf Performed By: #### UA, UAMIC #### [place] [address] HEPAC Collected: 3:42 AM Status: F Source: [facility] MAIN TYPE CODE TESTS RESULT OUT OF RANGE REFERENCE UNITS LAB HBSAG(LOINC) Hep B Surf Ag Non-Reactive Non-Reactive LAB HBCM(LOINC) Hep B Core IgM Ab Non-Reactive Non-Reactive LAB HBCMINT(LOINC) Hep B Core IgM Ab Int Result Comment: Samples with a value < 0.80 Index are considered nonreactive (negative) for IgM antibodies to hepatitis B core antigen. See Inter LAB HCV(LOINC) Hep C Ab Non-Reactive Non-Reactive LAB HCV1(LOINC) Hep C Ab Int Result Comment: Nonreactive: Samples with a value < 0.80 are considered nonreactive (negative) for antibodies to HCV. A negative test result does not exclude the possibility of exposure to or infection with HCV. HCV antibodies may be undetectable in some stages of the infection and in some clinical conditions. See Interp LAB HAVM(LOINC) Hep A IgM Ab Non-Reactive Non-Reacti ve LAB HAVM1(LOINC) Hep A IgM Ab Int Result Comment: No serologic al evidence of a current Hepatitis A infection. See Interp Performed By: #### HEPAC ### # [place] [address] CBC Collected: 3:42 AM Status: F Source: [facility] MAIN TYPE CODE TESTS RESULT OUT OF RANGE REFERENCE UNITS LAB WBC(LOINC) WBC 6.4 4.5-10.8 10 3/mcL LAB RBCCT(LOINC) RBC 4.17 Low 4.50-6.00 10 6/mcL LAB HGB(LOINC) Hgb 11.6 Low 13.0-17.5 G/dL LAB HCT(LOINC) Hct 33.3 Low 40.0-52.0 % LAB MCV(LOINC) MCV 79.8 Low 81.0-100.0 fL LAB MCH(LOINC) MCH 27.8 27.0-33.0 pg LAB MCHC(LOINC) MCHC 34.9 32.0-36.0 G/dL LAB RDW(LOINC) RDW 13.3 11.5-15.5 % LAB PLT(LOINC) Platelet 207 150-450 10 3/mcL LAB MPV(LOINC) MPV 7.2 6.4-10.5 fL Performed By: #### HFP, BMP, MG, PTH, RFP, CBC, GFR, APTT, URIC, ANEU, IFES, ADIFF #### [place] [address] .AUTO DIFF Collected: 11/05/2024 3:42 AM Status: F Source: [facility] MAIN TYPE CODE TESTS RESULT OUT OF RANGE REFERENCE UNITS LAB SEFERINO(LOINC) Neutrophil % 67.5 50.0-75.0 % LAB LYM(LOINC) Lymphocyte % 22.2 20.0-40.0 % LAB MON(LOINC) Monocyte % 6.4 2.0-13.0 % LAB EO(LOINC) Eosinophil % 2.9 0.0-6.0 % LAB BAS(LOINC) Basophil % 1.0 0.0-2.5 % LAB ABLYM(LOINC) Lymphocyte, Absolute 1.4 0.9-4.3 10 3/mcL LAB WILNER(LOINC) Monocyte, Absolute 0.4 0.1-1.4 10 3/mcL LAB AEOS(LOINC) Eosinophil, Absolute 0.2 0.0-0.7 10 3/mcL LAB ABAS(LOINC) Basophil, Absolute 0.1 0.0-0.3 10 3/mcL Performed By: #### HFP, BMP, MG, PTH, RFP, CBC, GFR, APTT, URIC, ANEU, IFES, ADIFF #### [address] [address] .NEUABS Collected: 3:42 AM Status: F Source: [facility] MAIN TYPE CODE TESTS RESULT OUT OF RANGE REFERENCE UNITS LAB ANEU(LOINC) Neutrophil, Absolute 4.3 2.3-8.1 10 3/mcL Performed By: #### HFP, BMP, MG, PTH, RFP, CBC, GFR, APTT, URIC, ANEU, IFES, ADIFF #### [address] [address] BMP Collected: 11/05/2024 3:42 AM Status: F Source: [facility] MAIN TYPE CODE TESTS RESULT OUT OF RANGE REFERENCE UNITS LAB GLU(LOINC) Glucose Level 90 82-115 mg/dL LAB NA(LOINC) Sodium Level 139 136-145 mEq/L LAB K(LOINC) Potassium Level 3.8 3.5-5.0 mEq/L LAB CL(LOINC) Chloride 110 98-110 mEq/L LAB CO2(LOINC) CO2 26 22-32 mEq/L LAB EBAL(LOINC) Electrolyte Balance 3.0 Low 4.0-15.0 mEq/L LAB BUN(LOINC) BUN 71.0 High 8.0-22.0 mg/dL LAB CRE(LOINC) Creatinine Lvl (s) 5.52 High 0.60-1.40 mg/dL Result Comment: Testing perf ormed on [employer] analyzer using enzymatic creatinine methodology. LAB BC(LOINC) BUN/Creatinine Ratio 12.9 10.0-22.0 ratio LAB CA(LOINC) Calcium Lvl 9.1 8.7-10.4 mg/dL Performed By: #### HFP, BMP, MG, PTH, RFP, CBC, GFR, APTT, URIC, ANEU, IFES, ADIFF #### [address] [address] MG Collected: 11/05/2024 3:42 AM Status: F Source: [facility] MAIN TYPE CODE TESTS RESULT OUT OF RANGE REFERENCE UNITS LAB MG(LOINC) Magnesium Lvl 2.5 High 1.6-2.4 mg/dL Performed By: #### HFP, BMP, MG, PTH, RFP, CBC, GFR, APTT, URIC, ANEU, IFES, ADIFF #### [address] [address] RFP Collected: 11/05/2024 3:42 AM Status: F Source: [facility] MAIN TYPE CODE TESTS RESULT OUT OF RANGE REFERENCE UNITS LAB GLU(LOINC) Glucose Level 90 82-115 mg/dL LAB NA(LOINC) Sodium Level 139 136-145 mEq/L LAB K(LOINC) Potassium Level 3.8 3.5-5.0 mEq/L LAB CL(LOINC) Chloride 110 98-110 mEq/L LAB CO2(LOINC) CO2 26 22-32 mEq/L LAB EBAL(LOINC) Electrolyte Balance 3.0 Low 4.0-15.0 mEq/L LAB BUN(LOINC) BUN 71.0 High 8.0-22.0 mg/dL LAB CRE(LOINC) Creatinine Lvl (s) 5.52 High 0.60-1.40 mg/dL Result Comment: Testing perf ormed on [employer] analyzer using enzymatic creatinine methodology. LAB BC(LOINC) BUN/Creatinine Ratio 12.9 10.0-22.0 ratio LAB CA(LOINC) Calcium Lvl 9.1 8.7-10.4 mg/dL LAB PHOS(LOINC) Phosphorus 4.7 2.4-5.1 mg/dL Result Comment: Note - New Reference Range in effect 20 LAB ALB(LOINC) Albumin Level 2.8 Low 3.2-4.8 G/dL Performed By: #### HFP, BMP, MG, PTH, RFP, CBC, GFR, APTT, URIC, ANEU, IFES, ADIFF #### [address] [address] .GFR Collected: 3:42 AM Status: F Source: [facility] MAIN TYPE CODE TESTS RESULT OUT OF RANGE REFERENCE UNITS LAB GFRAA(LOINC) GFR 13 ml/min/1. 73sqm Result Comment: GFR Population mean for , [...] Disease: Less than 15 mL/min/1.73 square meters LAB GFRNO(LOINC) GFR Non- 10 ml/min/1. 73sqm Result Comment: GFR Population mean for , [...] 15 mL/min/1.73 square meters Performed By: #### HFP, BMP, MG, PTH, RFP, CBC, GFR, APTT, URIC, ANEU, IFES, ADIFF #### [address] [address] PTH Collected: 3:42 AM Status: F Source: [facility] MAIN TYPE CODE TESTS RESULT OUT OF RANGE REFERENCE UNITS LAB PTH(LOINC) PTH, Intact 201.1 High 18.5-88.0 pg/mL Performed By: #### HFP, BMP, MG, PTH, RFP, CBC, GFR, APTT, URIC, ANEU, IFES, ADIFF #### [address] [address] URIC Collected: 11/05/2024 3:42 AM Status: F Source: [facility] MAIN TYPE CODE TESTS RESULT OUT OF RANGE REFERENCE UNITS LAB URIC(LOINC) Uric Acid Lvl 9.9 High 3.7-9.2 mg/dL Result Comment: Note - New Reference Range in effect 20 Performed By: #### HFP, BMP, MG, PTH, RFP, CBC, GFR, APTT, URIC, ANEU, IFES, ADIFF #### [address] [address] HFP Collected: 4 3:42 AM Status: F Source: [facility] MAIN TYPE CODE TESTS RESULT OUT OF RANGE REFERENCE UNITS LAB PROT(LOINC) Total Protein 5.7 5.7-8.2 G/dL LAB ALB(LOINC) Albumin Level 2.8 Low 3.2-4.8 G/dL LAB GLB(LOINC) Globulin 2.9 1.5-3.8 G/dL LAB AG(LOINC) A/G Ratio 1.0 0.9-1.6 ratio LAB BILT(LOINC) Bili Total 0.20 0.20-1.20 mg/dL Result Comment: Use of this assay is not recommended for patients undergoing treatment with eltrombopag due to the potential for falsely elevated results. LAB BILAD(LOINC) Bili Direct <0.1 0.0-0.4 mg/dL Result Comment: Use of this assay is not recommended for patients undergoing treatment with eltrombopag due to the potential for falsely elevated results. LAB BILI(LOINC) Bili Indirect Unable to Calculate 0.1-10.0 mg/dL Result Comment: Unable to ca lculate this test result accurately. Results used to calculate this test are outside the reportable range. LAB AP(LOINC) Alk Phos 70 38-126 U/L LAB AST(LOINC) AST/SGOT 22 8-34 U/L LAB ALT(LOINC) ALT/SGPT 16 12-55 U/L Performed By: #### HFP, BMP, MG, PTH, RFP, CBC, GFR, APTT, URIC, ANEU, IFES, ADIFF #### [address] [address] APTT Collected: 4 3:42 AM Status: F Source: [facility] MAIN TYPE CODE TESTS RESULT OUT OF RANGE REFERENCE UNITS LAB APTT0(LOINC) APTT 44.1 High 25.0-35.0 seconds Result Comment: For Heparin anticoagulation therapy, the recommended therapeutic range is: 54-77 seconds (APTT Correlation with Anti-Xa therapeutic range of 0.3-0.7 units/ml). PLEASE REFERENCE THE PHARMACY PROTOCOL FOR DOSING. Performed By: #### HFP, BMP, MG, PTH, RFP, CBC, GFR, APTT, URIC, ANEU, IFES, ADIFF #### [facility] [address] [place] [id number] IFES Collected: 4 3:42 AM Status: F Source: [facility] MAIN TYPE CODE TESTS RESULT OUT OF RANGE REFERENCE UNITS LAB IFES(LOINC) IFES Interpretation Immunofixation electrophoresis of serum shows the presence of only polyclonal immunoglobulins (IgG,A,M,[place] and Lambda), No monoclonal protein detected. Result Comment: Electronical ly Signed by: NICHOLE ESCOBEDO 11/05/2024 16:44 EST Performed By: #### HFP, BMP, MG, PTH, RFP, CBC, GFR, APTT, URIC, ANEU, IFES, ADIFF #### [address] [address] [address] THORAX W/O CONTRAST Observed: 024 8:00 PM Status: F Source: [facility] MAIN ORIGINAL EXAMINATION: CT OF THE CHEST WITHOUT KSWIPTII92/9/2024 8:[address] CHEST WITHOUT CONTRAST EXAM [...] 284(1):228-43. 3. Advanced coronary ASVD. Interpreted by: Jitendra Santos MD Preliminary Report By: Jitendra Santos MD Electronically signed By Jitendra Santos MD Dictated Date: 11/04/2024 10:15:53 PM Prelim Date: 11/04/2024 10:28:32 PM Sign Date: 11/04/2024 10:28:32 PM Ordering Provider: DENISE CAMEJO Collected: 4:25 PM Status: F Source: [facility] MAIN Order Comment: on Room Air. Preop Cardiothoracic OR (date) TYPE CODE TESTS RESULT OUT OF RANGE REFERENCE UNITS LAB PH(LOINC) pH 7.410 7.380-7.460 LAB PCO2(LOINC) pCO2 39.7 32.0-46.0 mmHg LAB PO2(LOINC) pO2 89.4 74.0-108.0 mmHg LAB HCO3(LOINC) HCO3 24.6 21.0-29.0 mmol/L LAB TCO2(LOINC) CO2 Totl 25.8 22.0-30.0 mmol/L LAB BE(LOINC) Base Excess -3.6 mmol/L LAB O2SAT(LOINC) O2 Sat 97.3 High 92.0-96.0 % Performed By: #### BG #### [place] [address] CRUR Collected: 11/04/2024 8:33 AM Status: F Source: [facility] MAIN TYPE CODE TESTS RESULT OUT OF RANGE REFERENCE UNITS LAB CRU(LOINC) U Creatinine 49.2 mg/dL Performed By: #### OTILIO, CRU R #### [place] [address] NAUR Collected: 8:33 AM Status: F Source: [facility] MAIN TYPE CODE TESTS RESULT OUT OF RANGE REFERENCE UNITS LAB OSMEL(LOINC) U Sodium 71 mEq/L Performed By: #### NAUR, CRU R #### [place] [address] APTT Collected: 6:47 AM Status: F Source: [facility] MAIN TYPE CODE TESTS RESULT OUT OF RANGE REFERENCE UNITS LAB APTT0(LOINC) APTT 53.4 High 25.0-35.0 seconds Result Comment: For Heparin anticoagulation therapy, the recommended therapeutic range is: 54-77 seconds (APTT Correlation with Anti-Xa therapeutic range of 0.3-0.7 units/ml). PLEASE REFERENCE THE PHARMACY PROTOCOL FOR DOSING. Performed By: #### APTT #### [place] [address] APTT Collected: 6:47 AM Status: F Source: [facility] TYPE CODE TESTS RESULT OUT OF RANGE REFERENCE UNITS LAB APTT0(LOINC) APTT 51.7 High 25.0-35.0 seconds Result Comment: For Heparin anticoagulation therapy, the recommended therapeutic range is: 54-77 seconds (APTT Correlation with Anti-Xa therapeutic range of 0.3-0.7 units/ml). PLEASE REFERENCE THE PHARMACY PROTOCOL FOR DOSING. Performed By: #### PRO, APTT #### [place] [address] PRO Collected: 11/04/2024 6:47 AM Status: F Source: [facility] MAIN TYPE CODE TESTS RESULT OUT OF RANGE REFERENCE UNITS LAB PT(LOINC) Protime 10.4 9.0-14.4 seconds Result Comment: Effective , Protime results may be affected by some antibiotics (i.e. Ciprofloxacin, Azithromycin, Bactrim) which may potentiate the action of oral anticoagulants, with further increases in Protime/INR. LAB INR(LOINC) PT International Ratio 0.9 ratio Result Comment: The [place] [employer] (CHEST, 1992, 102:312S- 25S) recommended therapeutic range for oral anticoagulant therapy is: LOW RISK: Prophylaxis of venous thrombosis INR: 2.0-3.0 Treatment of pulmonary embolism 2.0-3.0 Prevention of systemic embolism 2.0-3.0 HIGH RISK: Mechanical prosthetic valves 2.5-3.5 Performed By: #### PRO, APTT #### [address] [address] CBC Collected: 6:47 AM Status: F Source: [facility] MAIN TYPE CODE TESTS RESULT OUT OF RANGE REFERENCE UNITS LAB WBC(LOINC) WBC 6.5 4.5-10.8 10 3/mcL LAB RBCCT(LOINC) RBC 4.24 Low 4.50-6.00 10 6/mcL LAB HGB(LOINC) Hgb 11.5 Low 13.0-17.5 G/dL LAB HCT(LOINC) Hct 33.9 Low 40.0-52.0 % LAB MCV(LOINC) MCV 79.9 Low 81.0-100.0 fL LAB MCH(LOINC) MCH 27.1 27.0-33.0 pg LAB MCHC(LOINC) MCHC 34.0 32.0-36.0 G/dL LAB RDW(LOINC) RDW 13.6 11.5-15.5 % LAB PLT(LOINC) Platelet 217 150-450 10 3/mcL LAB MPV(LOINC) MPV 7.2 6.4-10.5 fL Performed By: #### BMP, TSH, MG, ANEU, GFR, CBC, ADIFF #### [place] [address] .AUTO DIFF Collected: 11/04/2024 6:47 AM Status: F Source: [facility] MAIN TYPE CODE TESTS RESULT OUT OF RANGE REFERENCE UNITS LAB SEFERINO(LOINC) Neutrophil % 59.2 50.0-75.0 % LAB LYM(LOINC) Lymphocyte % 29.2 20.0-40.0 % LAB MON(LOINC) Monocyte % 7.3 2.0-13.0 % LAB EO(LOINC) Eosinophil % 3.4 0.0-6.0 % LAB BAS(LOINC) Basophil % 0.9 0.0-2.5 % LAB ABLYM(LOINC) Lymphocyte, Absolute 1.9 0.9-4.3 10 3/mcL LAB WILNER(LOINC) Monocyte, Absolute 0.5 0.1-1.4 10 3/mcL LAB AEOS(LOINC) Eosinophil, Absolute 0.2 0.0-0.7 10 3/mcL LAB ABAS(LOINC) Basophil, Absolute 0.1 0.0-0.3 10 3/mcL Performed By: #### BMP, TSH, MG, ANEU, GFR, CBC, ADIFF #### [address] [address] .NEUABS Collected: 6:47 AM Status: F Source: [facility] MAIN TYPE CODE TESTS RESULT OUT OF RANGE REFERENCE UNITS LAB ANEU(LOINC) Neutrophil, Absolute 3.8 2.3-8.1 10 3/mcL Performed By: #### BMP, TSH, MG, ANEU, GFR, CBC, ADIFF #### [place] [address] BMP Collected: 11/04/2024 6:47 AM Status: F Source: [facility] MAIN TYPE CODE TESTS RESULT OUT OF RANGE REFERENCE UNITS LAB GLU(LOINC) Glucose Level 122 High 82-115 mg/dL LAB NA(LOINC) Sodium Level 142 136-145 mEq/L LAB K(LOINC) Potassium Level 3.8 3.5-5.0 mEq/L LAB CL(LOINC) Chloride 108 98-110 mEq/L LAB CO2(LOINC) CO2 27 22-32 mEq/L LAB EBAL(LOINC) Electrolyte Balance 7.0 4.0-15.0 mEq/L LAB BUN(LOINC) BUN 81.0 High 8.0-22.0 mg/dL LAB CRE(LOINC) Creatinine Lvl (s) 5.72 High 0.60-1.40 mg/dL Result Comment: Testing perf ormed on nxtControl analyzer using enzymatic creatinine methodology. LAB BC(LOINC) BUN/Creatinine Ratio 14.2 10.0-22.0 ratio LAB CA(LOINC) Calcium Lvl 8.9 8.7-10.4 mg/dL Performed By: #### BMP, TSH, MG, ANEU, GFR, CBC, ADIFF #### [address] [address] MG Collected: 11/04/2024 6:47 AM Status: F Source: [facility] MAIN TYPE CODE TESTS RESULT OUT OF RANGE REFERENCE UNITS LAB MG(LOINC) Magnesium Lvl 2.7 High 1.6-2.4 mg/dL Performed By: #### BMP, TSH, MG, ANEU, GFR, CBC, ADIFF #### [address] [address] .GFR Collected: 4 6:47 AM Status: F Source: [facility] MAIN TYPE CODE TESTS RESULT OUT OF RANGE REFERENCE UNITS LAB GFRAA(LOINC) GFR 12 ml/min/1. 73sqm Result Comment: GFR Population mean for , [...] Disease: Less than 15 mL/min/1.73 square meters LAB GFRNO(LOINC) GFR Non- 10 ml/min/1. 73sqm Result Comment: GFR Population mean for , [...] 15 mL/min/1.73 square meters Performed By: #### BMP, TSH, MG, ANEU, GFR, CBC, ADIFF #### [address] [address] TSH Collected: 4 6:47 AM Status: F Source: [facility] MAIN TYPE CODE TESTS RESULT OUT OF RANGE REFERENCE UNITS LAB TSH(LOINC) TSH 1.339 0.550-4.780 mIU/mL Performed By: #### BMP, TSH, MG, ANEU, GFR, CBC, ADIFF #### [address] [address] HFP Collected: 6:47 AM Status: F Source: [facility] MAIN TYPE CODE TESTS RESULT OUT OF RANGE REFERENCE UNITS LAB PROT(LOINC) Total Protein 5.9 5.7-8.2 G/dL LAB ALB(LOINC) Albumin Level 2.9 Low 3.2-4.8 G/dL LAB GLB(LOINC) Globulin 3.0 1.5-3.8 G/dL LAB AG(LOINC) A/G Ratio 1.0 0.9-1.6 ratio LAB BILT(LOINC) Bili Total <0.20 0.20-1.20 mg/dL Result Comment: Use of this assay is not recommended for patients undergoing treatment with eltrombopag due to the potential for falsely elevated results. LAB BILAD(LOINC) Bili Direct <0.1 0.0-0.4 mg/dL Result Comment: Use of this assay is not recommended for patients undergoing treatment with eltrombopag due to the potential for falsely elevated results. LAB BILI(LOINC) Bili Indirect Unable to Calculate 0.1-10.0 mg/dL Result Comment: Unable to ca lculate this test result accurately. Results used to calculate this test are outside the reportable range. LAB AP(LOINC) Alk Phos 70 38-126 U/L LAB AST(LOINC) AST/SGOT 24 8-34 U/L LAB ALT(LOINC) ALT/SGPT 18 12-55 U/L Performed By: #### HFP #### [address] [address] TROPHS Collected: 11/04/2024 6:47 AM Status: F Source: [facility] MAIN TYPE CODE TESTS RESULT OUT OF RANGE REFERENCE UNITS LAB HSTROP(LOINC) High Sensitivity Troponin I 984 High 0-54 ng/L Result Comment: High Sensitive Troponin I Reference Ranges: Female: 0-34 ng/L Male: 0-54 ng/L Testing performed on [employer] IM analyzer using direct chemiluminescent technology. Performed By: #### A1C, TROP HS, LIPID #### [address] [address] LIPID Collected: 11/04/2024 6:47 AM Status: F Source: [facility] MAIN TYPE CODE TESTS RESULT OUT OF RANGE REFERENCE UNITS LAB CHOL(LOINC) Cholesterol 104 50-199 mg/dL Result Comment: Cholesterol Reference Interval: Less than 200 Desirable 200-239 Borderline high risk 240 and above High risk LAB TRIG(LOINC) Triglycerides 109 3-149 mg/dL LAB HD(LOINC) HDL Cholesterol 34 Low 40-59 mg/dL LAB LDL(LOINC) LDL Cholesterol 48 0-129 mg/dL Performed By: #### A1C, TROP HS, LIPID #### [address] [address] A1C Collected: 6:47 AM Status: F Source: [facility] MAIN TYPE CODE TESTS RESULT OUT OF RANGE REFERENCE UNITS LAB A1C(LOINC) Hgb A1c 7.0 High 4.0-6.0 % LAB eAG(LOINC) Est Avg Glucose 154 mg/dL Result Comment: Estimated Av erage Glucose calculated by equation ((28.7xA1C)- 46.7) Estimated average glucose (eAG) is a calculated value from Hemoglobin A1C and is product support sales representative of the average blood glucose level in the last 2-3 month period. Normal range: less than 114 mg/dL Performed By: #### A1C, TROP HS, LIPID #### [address] [address] TROPHS Collected: 11/04/2024 12:42 AM Status: F Source: [facility] TYPE CODE TESTS RESULT OUT OF RANGE REFERENCE UNITS LAB HSTROP(LOINC) High Sensitivity Troponin I 236 High 0-76 ng/L Result Comment: High Sensiti ve Troponin I Reference Ranges: Female: 0-51 ng/L Male: 0-76 ng/L Testing performed on Arpeggi using a homogeneous sandwich chemiluminescent immunoassay based on [facility] technology. Performed By: #### TROPHS ## ## [facility] [address], [place] [address] XR CHEST 1 VIEW Observed: 11/03/2024 11:52 PM Status: F Source: [facility] ORIGINAL EXAMINATION: ONE XRAY VIEW OF THE [...] Date: 11/04/2024 12:03:10 AM Ordering Provider: TEE VIDES CBC Collected: 11:34 PM Status: F Source: [facility] TYPE CODE TESTS RESULT OUT OF RANGE REFERENCE UNITS LAB WBC(LOINC) WBC 6.7 4.5-10.8 10 3/mcL LAB RBCCT(LOINC) RBC 4.53 4.50-6.00 10 6/mcL LAB HGB(LOINC) Hgb 12.5 Low 13.0-17.5 G/dL LAB HCT(LOINC) Hct 36.9 Low 40.0-52.0 % LAB MCV(LOINC) MCV 81.4 81.0-100.0 fL LAB MCH(LOINC) MCH 27.6 27.0-33.0 pg LAB MCHC(LOINC) MCHC 34.0 32.0-36.0 G/dL LAB RDW(LOINC) RDW 13.7 11.5-15.5 % LAB PLT(LOINC) Platelet 212 150-450 10 3/mcL LAB MPV(LOINC) MPV 7.3 6.4-10.5 fL Performed By: #### TROPHS, A DIFF, ANEU, GFR, APTT, MDW, CBC, PBNP, BMP, PRO #### [address] [address] [address] [place], [place] [address] .AUTO DIFF Collected: 11/03/2024 11:34 PM Status: F Source: [facility] TYPE CODE TESTS RESULT OUT OF RANGE REFERENCE UNITS LAB SEFERINO(LOINC) Neutrophil % 62.3 50.0-75.0 % LAB LYM(LOINC) Lymphocyte % 25.5 20.0-40.0 % LAB MON(LOINC) Monocyte % 8.1 2.0-13.0 % LAB EO(LOINC) Eosinophil % 3.3 0.0-7.0 % LAB BAS(LOINC) Basophil % 0.8 0.0-2.5 % LAB ABLYM(LOINC) Lymphocyte, Absolute 1.7 0.9-4.3 10 3/mcL LAB WILNER(LOINC) Monocyte, Absolute 0.5 0.1-1.4 10 3/mcL LAB AEOS(LOINC) Eosinophil, Absolute 0.2 0.0-0.7 10 3/mcL LAB ABAS(LOINC) Basophil, Absolute 0.1 0.0-0.2 10 3/mcL Performed By: #### TROPHS, A DIFF, ANEU, GFR, APTT, MDW, CBC, PBNP, BMP, PRO #### [address] [address] .NEUABS Collected: 11:34 PM Status: F Source: [facility] TYPE CODE TESTS RESULT OUT OF RANGE REFERENCE UNITS LAB ANEU(LOINC) Neutrophil, Absolute 4.2 2.3-8.1 10 3/mcL Performed By: #### TROPHS, A DIFF, ANEU, GFR, APTT, MDW, CBC, PBNP, BMP, PRO #### [address] [address] .MDW Collected: 11/03/2024 11:34 PM Status: F Source: [facility] TYPE CODE TESTS RESULT OUT OF RANGE REFERENCE UNITS LAB MDW(LOINC) Monocyte Distribution Width 15.10 0.00-20.00 Result Comment: For ED adult patients suspected of sepsis, MDW<=20.0 does not rule out sepsis or risk of sepsis Performed By: #### TROPHS, A DIFF, ANEU, GFR, APTT, MDW, CBC, PBNP, BMP, PRO #### [address] [address] BMP Collected: 11/03/2024 11:34 PM Status: F Source: [facility] TYPE CODE TESTS RESULT OUT OF RANGE REFERENCE UNITS LAB GLU(LOINC) Glucose Level 258 High 80-115 mg/dL LAB NA(LOINC) Sodium Level 137 136-145 mmol/L LAB K(LOINC) Potassium Level 4.2 3.5-5.1 mmol/L LAB CL(LOINC) Chloride 101 98-107 mmol/L LAB CO2(LOINC) CO2 29 23-31 mmol/L LAB EBAL(LOINC) Electrolyte Balance 7.0 4.0-15.0 mEq/L LAB BUN(LOINC) BUN 80 High 7-18 mg/dL LAB CRE(LOINC) Creatinine Lvl (s) 5.93 High 0.70-1.30 mg/dL Result Comment: Testing perf ormed on Siemens Dimension EXL analyzer using a modified kinetic Olivia technique. LAB BC(LOINC) BUN/Creatinine Ratio 13 7-27 ratio LAB CA(LOINC) Calcium Lvl 8.6 8.4-10.2 mg/dL Performed By: #### TROPHS, A DIFF, ANEU, GFR, APTT, MDW, CBC, PBNP, BMP, PRO #### [address] [address] .GFR Collected: 4 11:34 PM Status: F Source: [facility] TYPE CODE TESTS RESULT OUT OF RANGE REFERENCE UNITS LAB GFRAA(LOINC) GFR 12 ml/min/1. 73sqm Result Comment: GFR Population mean for , [...] Disease: Less than 15 mL/min/1.73 square meters LAB GFRNO(LOINC) GFR Non- 10 ml/min/1. 73sqm Result Comment: GFR Population mean for , [...] 15 mL/min/1.73 square meters Performed By: #### TROPHS, A DIFF, ANEU, GFR, APTT, MDW, CBC, PBNP, BMP, PRO #### [address] [address] APTT Collected: 11:34 PM Status: F Source: [facility] TYPE CODE TESTS RESULT OUT OF RANGE REFERENCE UNITS LAB APTT0(LOINC) APTT 33.6 25.0-35.0 seconds Result Comment: For Heparin anticoagulation therapy, the recommended therapeutic range is: 45.4-75.9 seconds. Patients on heparin therapy may have an extreme result. Performed By: #### TROPHS, A DIFF, ANEU, GFR, APTT, MDW, CBC, PBNP, BMP, PRO #### [address] [address] PRO Collected: 11/03/2024 11:34 PM Status: F Source: [facility] TYPE CODE TESTS RESULT OUT OF RANGE REFERENCE UNITS LAB PT(LOINC) Protime 9.9 9.0-14.4 seconds LAB INR(LOINC) PT International Ratio 0.9 Result Comment: The [place] [employer] (CHEST, 1992, 102:312S- 25S) recommended therapeutic range for oral anticoagulant therapy is: LOW RISK: Prophylaxis of venous thrombosis INR: 2.0-3.0 Treatment of pulmonary embolism 2.0-3.0 Prevention of systemic embolism 2.0-3.0 HIGH RISK: Mechanical prosthetic valves 2.5-3.5 Performed By: #### TROPHS, A DIFF, ANEU, GFR, APTT, MDW, CBC, PBNP, BMP, PRO #### [address] [address] PBNP Collected: 11:34 PM Status: F Source: [facility] TYPE CODE TESTS RESULT OUT OF RANGE REFERENCE UNITS LAB PBNP(LOINC) N-Terminal proBNP 7824 High 0-125 pg/mL Result Comment: NT-proBNP re sults of less than 300 pg/mL effectively rules out acute congestive heart failure with 99% negative predictive value. Performed By: #### TROPHS, A DIFF, ANEU, GFR, APTT, MDW, CBC, PBNP, BMP, PRO #### [place] [place], [place] [address] TROPHS Collected: 11/03/2024 11:34 PM Status: F Source: [facility] TYPE CODE TESTS RESULT OUT OF RANGE REFERENCE UNITS LAB HSTROP(LOINC) High Sensitivity Troponin I 146 High 0-76 ng/L Result Comment: High Sensiti ve Troponin I Reference Ranges: Female: 0-51 ng/L Male: 0-76 ng/L Testing performed on Arpeggi using a homogeneous sandwich chemiluminescent immunoassay based on [facility] technology. Performed By: #### TROPHS, A DIFF, ANEU, GFR, APTT, MDW, CBC, PBNP, BMP, PRO #### [address] [address] ALLERGIES No Allergies Records Found ENCOUNTERS ADMIT/DISCHARGE ACCOUNT NUMBER ADMITTING ENCOUNTER CLASS LOCATION S[id number] [facility] 06/24/2025/06/24/20 25 [id number] [facility] MAINBuilding :[facility] 04/19/2025/04/19/[id number] [facility] 04/09/2025 [id number] [facility] 02/17/2025/02/21/[id number] ALEJANDRO JERNIGAN MD Inpatient Encounter ABuilding:[place] 6ERoom: 6705Bed: [facility] 02/11/2025/02/12/20 [id number] Ambulatory [facility] MA[facility]Building :[facility] 01/08/2025 [id number] Ambulatory [facility] MAINBuilding :[facility] 12/19/2024/12/19/19 [id number] Ambulatory ABuilding:XR AY [facility] MAIN 11/22/2024/11/22/20 [id number] Ambulatory ABuilding:LA B [facility] MAIN 11/14/2024/12/03/19 [id number] Ambulatory REHABBuildin g:[facility] MAIN 11/04/2024/11/12/20 24 [id number] ANITRA GUERRA, DR MARSH Inpatient Encounter ABuilding:[place] SDRoom: 0212Bed: A [facility] MAIN 11/03/2024/11/04/20 [id number] Emergency [facility] MAINBuilding :ERO [facility] PAYERS ENCOUNTER GUARANTOR PAYER SUBSCRIBER SOURCE 06/27/2025 CHRISTOPH SMITH: [place] [address]~MARISSA [email or web address]: (HP) Primary Insurance:[facility] Number: [id number] e Date:5544-25-19Tekm Name:[facility] [address] [address], [place] [address]MW: CHRISTOPH SMITH: [id number] [place] [address]Xau: (HP) (WP) [facility] 06/24/2025 CHRISTOPH SMITH: [place] [address]~MARISSA [email or web address]: (HP) Primary Insurance:[facility] Number: [id number] e Date:6599-46-06Gjmt Name:[facility] [address] [place] [address]ME: CHRISTOPH EDWARDSB: [id number] [place] [address]Cxe: (HP) (WP) [facility] 04/19/2025 CHRISTOPH NICHOLSB: [place] [address]~[facility] UNIVERSITY HOSPITALLUCRECIA [email or web address]: (HP) Primary Insurance:[facility] Number: [id number] e Date:7693-68-14Skyd Name:[facility] [address] [address], [place] [address]FQ: CHRISTOPH NICHOLSB: [id number] [place] [address]Scv: (HP) (WP) [facility] 04/09/2025 CHRISTOPH NICHOLSB: [place] [address]~[facility] UNIVERSITY HOSPITALLUCRECIA [email or web address]: (HP) Primary Insurance:[facility] Number: [id number] e Date:1795-20-81Mzsn Name:[facility] [address] [place] [address]SR: CHRISTOPH NICHOLSB: [id number] [place] [address]Jwl: (HP) (WP) [facility] 02/17/2025 CHRISTOPH Cassidy EDWARDSB: [place] [address]~[facility] UNIVERSITY HOSPITALLUCRECIA [email or web address]: (HP) Primary Insurance:[employer] INSC[employer]olicy Number: [id number] eliot Date:9281-32-41Awnt Name:[employer]ACH[employer] BACK TENDER [address], [place] [address]HH: CHRISTOPH EDWARDSB: [id number] [place] [address]Uzt: (HP) (WP) [facility] 02/17/2025 Secondary Insurance:MEDICARE PART A INSCOPolicy Number: [id number] Date:2158-35-34Nhpm Name:MMail Code AG [address], [place] [address]GH: CHRISTOPH EDWARDSB: [id number] [place] [address]Otk: (HP) (WP) [facility] 02/11/2025 CHRISTOPH SMITH: [place] [address]~MARISSA [email or web address]: (HP) Primary Insurance:[facility] INSCOPolicy Number: [id number] e Date:6220-97-17Wpze Name:[address], [place] [address]YY: CHRISTOPH EDWARDSB: [id number] [place] [address]Aey: (HP) () [facility] 01/08/2025 CHRISTOPH SMITH: [place] [address]~MARISSA [email or web address]: (HP) Primary Insurance:[facility] INSCOPolicy Number: [id number] e Date:8427-25-85Tqrz Name:[address] [address]ZWAPDQ, [place] [address]FM: CHRISTOPH NICHOLSSTEFANO: [id number] [place] [address]Yow: (HP) (WP) [facility] 12/19/2024 CHRISTOPH Cassidy SMITH: [place] [address]~[facility] UNIVERSITY HOSPITALLUCRECIA [email or web address]: (HP) Primary Insurance:[employer] INSCOPolicy Number: [id number] eliot Date:4839-57-03Uadc Name:DYEING MACHINE BACK TENDERAmber [address]IS[place], [place] [address]WA: CHRISTOPH Cassidy EDWARDSB: [id number] [place] [address]Cwy: (HP) (WP) [facility] 11/22/2024 CHRISTOPH Cassidy SMITH: [place] [address]~Stitch FixLUCRECIA [email or web address]: (HP) Primary Insurance:[employer]IGNA INSCOPolicy Number: [id number] e Date:6220-87-52Zqbd Name:[facility] [address]XL[place], [place] [address]MV: CHRISTOPH Cassidy SMITH: [id number] [place] [address]Deb: (HP) (WP) [facility] 11/04/2024 CHRISTOPH Cassidy EDWARDSB: [place] [address]~MARISSA [email or web address]: (HP) Primary Insurance:[employer] INSCOPolicy Number: [id number] e Date:6913-06-79Jlky Name:[address]BTOTTDJTH, [place] [address]EU: CHRISTOPH SMITH: [id number] [place] [address]Alw: (HP) (WP) [facility] 11/04/2024 Secondary Insurance:MEDICARE PART A INSCOPolicy Number: [id number] Date:5087-07-98Jrwt Name:MMail Code AG [address], [place] [address]EK: CHRISTOPH SMITH: [id number] [place] [address]Ofi: (HP) (WP) [facility] 11/03/2024 CHRISTOPH SMITH: [place] [address]~MARISSA [email or web address]: (HP) Primary Insurance:[employer] INSCOPolicy Number: [id number] ve Date:9126-94-90Duvf Name:DYEING MACHINE BACK TENDERAmber [address]WTTPCGGOUKQNAGI [address]WR: CHRISTOPH SMITH: [id number] [place] [address]Soe: (HP) () [facility]
[2025-08-26 07:24] VITALS: BMI 32.5
--- NOTE | 2025-08-26 08:17 | PCM.HP.STD ---
HPI - General HPI Narrative CHRISTOPH NICHOLS, is a 64 M who presents with a right IJ dialysis catheter no longer in use. COUNTS INCLUDE 234 BEDS AT THE [facility] Medical History History of MRSA infection History of renal disease History of renal dialysis Former smoker History of echocardiogram History of heart attack Loss of hearing Wears dentures Depression Alcohol use Insulin dependent diabetes mellitus Arthritis High cholesterol Back pain History of hiatal hernia Dietary restriction Gastric reflux COPD (chronic obstructive pulmonary disease) Smoker History of pain when walking History of edema History of stress test Cardiology follow-up encounter Hypertension NSTEMI (non-ST elevated myocardial infarction) Home Medications ?Medication ?Instructions ?Recorded ?Last Taken ?Type escitalopram oxalate 5 mg tablet 10 mg PO DAILY depression 10/15/16 06/08/25 History (Lexapro) [id number] acid 0.4 1 ea PO DAILY supplement 10/15/16 Unknown History mg-lycopene 300 mcg-lutein 250 mcg tablet (Centrum Silver) omeprazole 20 mg capsule,delayed 20 mg PO DAILY gerd 10/15/16 06/09/25 History release insulin degludec 100 unit/mL (3 38 unit subcut Q24H diabetes 01/15/18 06/08/25 History mL) subcutaneous pen (Tresiba FlexTouch U-100 insulin) montelukast 10 mg tablet 10 mg PO DAILY@1700 #42 tabs 03/22/18 06/08/25 Rx pravastatin 40 mg tablet 40 mg PO QHS 08/24/18 06/08/25 History cholecalciferol (vitamin D3) 25 25 mcg PO DAILY 05/17/23 06/08/25 History mcg (1,000 unit) tablet (Vitamin D3) ondansetron HCl 4 mg tablet 4 mg PO Q8H PRN nausea and vomiting 02/06/25 Unknown History furosemide 40 mg tablet (Lasix) 40 mg PO QAM 03/03/25 06/08/25 History albuterol sulfate 90 mcg/actuation 2 puff inhalation Q6H PRN PRN 03/18/25 Unknown History aerosol inhaler wheezing amlodipine 5 mg tablet 5 mg PO QPM 03/18/25 06/08/25 History aspirin 81 mg chewable tablet 81 mg PO DAILY 03/18/25 06/09/25 History clopidogrel 75 mg tablet 75 mg PO DAILY 03/18/25 06/08/25 History ezetimibe 10 mg tablet 10 mg PO DAILY 03/18/25 06/08/25 History losartan 100 mg tablet 100 mg PO DAILY 03/18/25 06/09/25 History losartan 25 mg tablet 25 mg PO BID 03/18/25 06/09/25 History metoprolol tartrate 25 mg tablet 25 mg PO BID 03/18/25 06/09/25 History midodrine 5 mg tablet 5 mg PO MOWEFR 03/18/25 06/06/25 History semaglutide 7 mg tablet (Rybelsus) 7 mg PO DAILY 03/18/25 06/02/25 History acetaminophen 500 mg tablet 1,000 mg PO Q8 PRN pain 05/02/25 Unknown History oxycodone-acetaminophen 5 mg-325 1 tab PO Q6 PRN pain 06/25/25 Unknown History mg tablet Allergy/AdvReac Type Severity Reaction Status Date / Time bee venom protein (honey Allergy Swelling Verified 06/25/25 14:24 bee) (bee sting) lisinopril AdvReac Unknown cough Verified 06/25/25 14:24 Surgical History History of surgery History of heart surgery History of elbow surgery H/O heart artery stent (~11/06/24) Hx of knee surgery History of arthroplasty of knee Hx of left cataract extraction Hx of knee surgery Hx of knee surgery Hx of total knee arthroplasty Hx of right cataract extraction Hx of foot surgery Hx of arthroscopy Hx laparoscopic cholecystectomy Hx of hernia repair Hx of arthroscopy of right knee Status post coronary artery stent placement Coronary angioplasty status Status post revision of total replacement of right knee Social History Smoking Status: Former smoker how long ago did patient quit smokin years ROS Constitutional Constitutional: Denies chills, fever(s), frequent falls, lethargy or weakness Eyes Eyes: Denies blind spots, change in vision or loss of vision ENT HEENT: Denies bleeding gums, hoarseness or sore throat Cardiovascular Cardiovascular: Denies abdominal pain, bluish discoloration of hand/feet, chest pain with activity, claudication, cold extremities, cyanosis, dyspnea on exertion, erythema on extremities, irregular heart rhythm, leg edema, leg ulcers, numbness in extremities or weakness in extremities Respiratory/Chest Respiratory/Chest: Denies cough, excessive phlegm production, shortness of breath at rest, shortness of breath with exertion or wheezing Gastrointestinal Gastrointestinal: Denies anorexia, change in stool character, constipation, diarrhea, melena or rectal bleeding Genitourinary Genitourinary: Denies dysuria or hematuria Musculoskeletal Musculoskeletal: Denies abnormal gait Integumentary Integumentary: Reports other Details: ; Denies erythema, non-healing lesions or wounds Neurologic Neurologic: Denies abnormal speech, focal weakness, headache(s), loss of vision, numbness, paresthesias or sensory deficit Hematologic/Lymphatic Hematologic/Lymphatic: Denies easy bleeding, easy bruising or lymphadenopathy Vital Signs Vital Signs Vital Signs: Weight Weight: 208 lb Body Mass Index (BMI) 32.5 Physical Exam Const alert, oriented x3, no apparent distress and healthy appearing General Appearance: cooperative; Negative for combative or lethargic Orientation / Consciousness: awake Exam Limitations: no limitations HEENT Head and Scalp: normocephalic and atraumatic Eyes EOMs intact bilaterally General Eye: normal appearance of both eyes Neck full ROM General: trachea midline Resp normal respiratory effort and no use of accessory muscles Effort and Inspection: Negative for labored, stridor or audible wheezes Cardio regular rate and regular rhythm Back/Spine Cervical Spine: cervical ROM normal Extremity full ROM, normal capillary refill and no clubbing, cyanosis or edema Skin no rashes or lesions noted and no wounds Neuro oriented x3, CN's II-XII intact bilaterally, no focal motor deficits and no sensory deficits noted Psych thought process normal, cooperative, affect normal, speech normal and activity/motor behavior normal Assessment & Plan Assessment/Plan (1) Vascular dialysis catheter in place: PLAN: -remove catheter
--- NOTE | 2025-08-26 08:42 | OP.PCM_ITS ---
Operative Report (Standard) Operative Information Date of Procedure: 08/26/25 Pre-Operative Diagnosis: dialysis catheter in place, no longer in use Post-Operative Diagnosis: same Surgery/Procedure Performed: removal tunneled dialysis catheter secondary art teacher: No Type of Anesthesia: Local and Sedation,Conscious Procedure Start Time: 08:20 Procedure Stop Time: 08:30 Select all DRAINS/GRAFTS/IMPLANTS that apply: None Estimated Blood Loss: 1 Specimen collected: No Surgical Findings: see above Complications Complications: No
--- NOTE | 2025-08-26 08:42 | PCM.OPRPT ---
Operative Report (Standard) Operative Information Date of Procedure: 08/26/25 Pre-Operative Diagnosis: dialysis catheter in place, no longer in use Post-Operative Diagnosis: same Surgery/Procedure Performed: removal tunneled dialysis catheter regulatory and compliance technician: No Type of Anesthesia: Local and Sedation,Conscious Procedure Start Time: 08:20 Procedure Stop Time: :30 Select all DRAINS/GRAFTS/IMPLANTS that apply: None Estimated Blood Loss: 1 Specimen collected: No Description of surgery: HPI: Patient is a 64-year-old male with end-stage renal disease currently on dialysis via a successful fistula creation. He has a dialysis catheter is no longer new so he presents now for removal. Description of procedure: Upon obtaining informed consent and verification correct patient procedure and site the patient was taken to the Banquet Waiter/Waitress he was positioned prepped and draped in usual sterile fashion. Timeouts performed and conscious sedation administered with Versed and fentanyl. Skin overlying the cuff which was very closely adjacent to the exit site was anesthetized with 1% lidocaine and the soft tissue adhesions bluntly dissected with a curved hemostat. Once these were loosened the catheter was extracted with manual pressure held over the IJ entry site until hemostasis was observed. The patient was then taken the recovery area with bedrest prior to discharge to home. Surgical Findings: see above Complications Complications: No
== END 2025-08-26 09:45 | disposition home or self-care (01) ==
PROVIDERS: PCP Family Medicine; Referring Provider Surgery Trauma Surgery; Visit Provider Surgery Trauma Surgery
DX: Z45.2 Encounter for adjustment and management of vascular access device (principal); I12.0 Hypertensive chronic kidney disease with stage 5 chronic kidney disease or end stage renal disease; N18.6 End stage renal disease; J44.9 Chronic obstructive pulmonary disease, unspecified; E11.22 Type 2 diabetes mellitus with diabetic chronic kidney disease; E78.00 Pure hypercholesterolemia, unspecified; K21.9 Gastro-esophageal reflux disease without esophagitis; Z87.891 Personal history of nicotine dependence; Z99.2 Dependence on renal dialysis
CPT/HCPCS: 36589; 99152